=== PATIENT | female | born 1960 | race Caucasian/White ===

== ENCOUNTER → 2022-04-05 | Outpatient (REF) | payer MEDICARE, MEDICAID, SELFPAY ==
[2022-04-05 07:49] LABS: Anion Gap 5 (5-15); BUN 22 mg/dL (7-18); BUN/Creat Ratio 25.6 RATIO (10-20); Calcium,Total 9.7 mg/dL (8.5-10.1); Chloride 91 mmol/L (98-107); Creatinine, Serum 0.86 mg/dL (0.55-1.02); EST Glomerular Filtration Rate 71 mL/min (>60); Est Glom Filt Rate - Afr Amer 86 mL/min (>60); Glucose 130 mg/dL (74-106); Potassium 3.3 mmol/L (3.5-5.1); Sodium Level 135 mmol/L (136-145)
== END | disposition home or self-care (01) ==
LOC: OLS.SW 05:00
PROVIDERS: Visit Provider Internal Medicine
DX: J44.9 Chronic obstructive pulmonary disease, unspecified (principal)
CPT/HCPCS: 36415; 80048

== ENCOUNTER → 2022-04-11 | Outpatient (REF) | payer MEDICARE, MEDICAID, SELFPAY ==
[2022-04-11 09:33] LABS: Anion Gap 5 (5-15); BUN 29 mg/dL (7-18); BUN/Creat Ratio 29.2 RATIO (10-20); Calcium,Total 9.8 mg/dL (8.5-10.1); Chloride 91 mmol/L (98-107); Creatinine, Serum 0.99 mg/dL (0.55-1.02); EST Glomerular Filtration Rate 61 mL/min (>60); Est Glom Filt Rate - Afr Amer 73 mL/min (>60); Glucose 122 mg/dL (74-106); Sodium Level 136 mmol/L (136-145)
== END | disposition home or self-care (01) ==
LOC: OLS.SW 04:00
PROVIDERS: Referring Provider Internal Medicine; Visit Provider Internal Medicine
DX: J44.9 Chronic obstructive pulmonary disease, unspecified (principal); I10 Essential (primary) hypertension
CPT/HCPCS: 36415; 80048

== ENCOUNTER → 2022-05-01 | Outpatient (REF) | payer MEDICARE, MEDICAID, SELFPAY ==
[2022-05-01 08:38] LABS: Hemoglobin 10.2 g/dL (12.0-15.0); Mean Corpuscular Volume 89.9 fL (81-99); Mean Platelet Vol. 11.2 fl (6.2-12.0); Platelet Count 231 K/mm3 (150-450); RBC Distribution Width CV 13.4 % (11.6-14.6); RBC Distribution Width SD 44.1 fl (35.1-43.9); Red Blood Count 3.78 M/mm3 (4.2-5.4); White Blood Count 10.6 K/mm3 (4.4-11.0)
[2022-05-01 08:49] LABS: Anion Gap 3 (5-15); BUN 39 mg/dL (7-18); BUN/Creat Ratio 21.8 RATIO (10-20); Calcium,Total 9.8 mg/dL (8.5-10.1); Chloride 91 mmol/L (98-107); Creatinine, Serum 1.79 mg/dL (0.55-1.02); EST Glomerular Filtration Rate 31 mL/min (>60); Est Glom Filt Rate - Afr Amer 37 mL/min (>60); Glucose 121 mg/dL (74-106); Magnesium 1.7 mg/dL (1.6-2.6); Potassium 4.3 mmol/L (3.5-5.1); Sodium Level 135 mmol/L (136-145)
[2022-05-01 09:45] LABS: Hemoglobin A1c 5.8 % (3.8-5.6)
== END ==
LOC: OLS.SW 05:00
PROVIDERS: Visit Provider Internal Medicine
DX: I10 Essential (primary) hypertension (principal); Z79.899 Other long term (current) drug therapy
CPT/HCPCS: 36415; 80048; 83036; 83735; 85027

== ENCOUNTER 2022-05-03 10:08 | Inpatient (IN) | payer MEDICARE, MEDICAID, SELFPAY ==
[2022-05-03] VITALS (14 sets, daily range): BP systolic 74–133; BP diastolic 44–92; PULSE 83–92; RESP 14–26; TEMP 35.7–36.7; O2SAT 88–96; BMI 61.4
--- NOTE | 2022-05-03 10:34 | RAD_ITS ---
STUDY: X-RAY CHEST REASON FOR EXAM: Female, 61 years old. Hypoxia TECHNIQUE: Single AP portable view of the chest. COMPARISON: None. FINDINGS: EKG electrodes are seen. The patient is rotated. The lungs are clear. There is no demonstrated pleural abnormality. There is mild cardiac enlargement. Normal mediastinum and lito. Normal visualized pulmonary arteries. Normal visualized aortic arch and descending thoracic aorta. There are diffuse degenerative changes of the visualized thoracic spine. Normal visualized ribs, clavicles, and shoulders. There is no demonstrated abnormality of the visualized soft tissue structures of the upper abdomen. RAD/Chest 1 View (Portable) IMPRESSION: Lungs are clear. Mild cardiomegaly. Electronically Signed: aDvid Conner MD at 11:41 EST ,
[2022-05-03 11:06] LABS: Absolute Lymphocyte Count 2.16 X10^3/uL (0.83-4.51); Absolute Neutrophil Count 7.5 X10^3/uL (2.0-7.7); Basophil# 0.03 X10^3/uL; Basophil% 0.3 % (0-1); Eosinophil# 0.11 X10^3/uL; Hematocrit 36.4 % (37-47); Hemoglobin 10.7 g/dL (12.0-15.0); Lymphocyte # 2.16 X10^3/ul (0.83-4.51); Lymphocyte % 20.2 % (19-41); Mean Corp Hgb Conc 29.4 g/dL (32-36); Mean Corpuscular Hgb 26.5 pg (27.0-32.0); Mean Corpuscular Volume 90.1 fL (81-99); Mean Platelet Vol. 11.4 fl (6.2-12.0); Monocyte# 0.76 X10^3/uL; Monocyte% 7.1 % (0-10); NRBC Flagged by Analyzer 0 % (0-5); Neutrophil # 7.53 X10^3/uL (2.7-7.7); Neutrophil % 70.4 % (47-70); Platelet Count 262 K/mm3 (150-450); RBC Distribution Width CV 13.3 % (11.6-14.6); RBC Distribution Width SD 43.8 fl (35.1-43.9); Red Blood Count 4.04 M/mm3 (4.2-5.4); White Blood Count 10.7 K/mm3 (4.4-11.0)
[2022-05-03 11:12] LABS: Lactic Acid 1.1 mmol/L (0.4-1.9)
[2022-05-03 11:12] LABS: Mucous, Urine 0 SEEN /hpf (<or=2+); Red Blood Cells-Urine 0 SEEN /hpf (0-5)
--- NOTE | 2022-05-03 11:14 | EX.ED.DYSGE1 ---
HPI History of Present Illness Chief Complaint: General Illness Informant: patient Narrative Narrative: Patient is a 61-year-old female with multiple comorbidities including systolic heart failure, COPD, chronic hypoxic/hypercapnic respiratory failure on 3 L of oxygen, anxiety/depression, hypertension, mixed hyperlipidemia, fibromyalgia and generalized debility presenting with hypoxia. Patient is presenting from [facility]SNF. Apparently patient's oxygen was in the 80s on 3 L and they bumped her up to 4 L with no change. Patient also had a blood pressure of 90/60 at the facility. She was sent to the ER for further evaluation. Patient currently denies any complaints except for her chronic pain. She denies any change in her cough or new shortness of breath. She denies any wheezing. She states she does feel thirsty. Denies any change in her urination. Denies abdominal pain, nausea or vomiting. Upon arrival patient was 88% on 3 L and was increased to 4 L in the ER [facility] Medical History Chronic anemia Chronic pain Chronic respiratory failure with hypoxia COPD (chronic obstructive pulmonary disease) Depression GERD (gastroesophageal reflux disease) HFrEF (heart failure with reduced ejection fraction) HTN (hypertension) Hyperlipidemia Morbid obesity Obesity hypoventilation syndrome MARISOL (obstructive sleep apnea) Peptic ulcer disease Seasonal allergies TIA (transient ischemic attack) Vitamin D deficiency Home Medications acetaminophen 325 mg tablet 650 mg PO Q4H PRN Pain 05/03/22 [History Last Taken Unknown] acetaminophen 325 mg tablet 650 mg PO TID PAIN 05/03/22 [History Last Taken 05/03/22] albuterol sulfate 90 mcg/actuation aerosol inhaler 2 puff inhalation Q2H PRN Shortness Of Breath 05/03/22 [History Last Taken Unknown] amitriptyline 25 mg tablet 25 mg PO QHS DEPRESSION 05/03/22 [History Last Taken 05/02/22] atorvastatin 20 mg tablet 20 mg PO QHS CHOLESTEROL 05/03/22 [History Last Taken 05/02/22] benzonatate 100 mg capsule 100 mg PO Q8H PRN Cough 05/03/22 [History Last Taken Unknown] calcium polycarbophil 625 mg tablet (FiberCon) 625 mg PO DAILY CONSTIPATION 05/03/22 [History Last Taken 05/03/22] cyclobenzaprine 10 mg tablet 10 mg PO TID MUSCLE SPASMS 05/03/22 [History Last Taken 05/03/22] dextrose 40 % oral gel (Glucose Gel) 10 g PO Q15M PRN HYPOGLYCEMIC EPISODE 05/03/22 [History Last Taken Unknown] dicyclomine 10 mg capsule 10 mg PO DAILY PRN Diarrhea 05/03/22 [History Last Taken Unknown] ergocalciferol (vitamin D2) 1,250 mcg (50,000 unit) capsule (Vitamin D2) 1,250 mcg PO SA SUPPLEMENT 05/03/22 [History Last Taken 04/29/22] famotidine 20 mg tablet 20 mg PO BID GERD 05/03/22 [History Last Taken 05/03/22] fluticasone propionate 50 mcg/actuation nasal spray,suspension 2 spray intranasal BID NASAL CONGESTION 05/03/22 [History Last Taken 05/03/22] furosemide 40 mg tablet 40 mg PO BID FLUID 05/03/22 [History Last Taken 05/03/22] gabapentin 100 mg capsule 300 mg PO BID NERVE PAIN 05/03/22 [History Last Taken 05/03/22] guaifenesin 600 mg tablet, extended release 12 hr (Mucinex) 600 mg PO BID CONGESTION 05/03/22 [History Last Taken 05/03/22] hydroxyzine HCl 50 mg tablet 50 mg PO Q12H PRN Anxiety 05/03/22 [History Last Taken Unknown] lidocaine 4 % topical patch 1 patch topical DAILY PAIN 05/03/22 [History Last Taken 05/03/22] loperamide 2 mg tablet 2 mg PO Q6H PRN Diarrhea 05/03/22 [History Last Taken Unknown] loratadine 10 mg tablet 10 mg PO DAILY SEASONAL ALLERGIES 05/03/22 [History Last Taken 05/03/22] losartan 50 mg tablet 50 mg PO DAILY BLOOD PRESSURE 05/03/22 [History Last Taken 05/03/22] methyl salicylate 15 %-menthol 10 % topical cream (Muscle Rub) 1 applic topical BID PRN LEFT SHOULDER PAIN 05/03/22 [History Last Taken 05/03/22] montelukast 10 mg tablet 10 mg PO DAILY ALLERGIES 05/03/22 [History Last Taken 05/03/22] omeprazole 20 mg tablet,delayed release 20 mg PO DAILY GERD 05/03/22 [History Last Taken 05/03/22] ondansetron 4 mg oral soluble film 4 mg PO Q8H PRN Nausea 05/03/22 [History Last Taken Unknown] roflumilast 500 mcg tablet (Daliresp) 500 mcg PO DAILY ASTHMA 05/03/22 [History Last Taken 05/03/22] sertraline 100 mg tablet (Zoloft) 100 mg PO QHS DEPRESSION 05/03/22 [History Last Taken 05/02/22] spironolactone 50 mg tablet 50 mg PO DAILY BLOOD PRESSURE 05/03/22 [History Last Taken 05/03/22] sucralfate 100 mg/mL oral suspension (Carafate) 10 ml PO TID ULCER 05/03/22 [History Last Taken 05/03/22] tiotropium bromide 2.5 mcg/actuation mist for inhalation (Spiriva Respimat) 2 puff inhalation QHS ASTHMA 05/03/22 [History Last Taken 05/02/22] tramadol 50 mg tablet 50 mg PO Q8H PRN MUSCLE WEAKNESS 05/03/22 [History Last Taken Unknown] Allergy/AdvReac Type Severity Reaction Status Date / Time aspirin Allergy Other Verified 05/03/22 10:11 black pepper [pepper] Allergy Other Verified 05/03/22 10:11 coconut Allergy Other Verified 05/03/22 10:11 codeine Allergy Other Verified 05/03/22 10:11 ibuprofen Allergy Other Verified 05/03/22 10:11 Influenza Virus Vaccines Allergy Other Verified 05/03/22 10:11 rice Allergy Other Verified 05/03/22 10:11 tetanus and diphtheria Allergy Other Verified 05/03/22 10:11 toxoids Tetanus Vaccines and Toxoid Allergy Other Verified 05/03/22 10:11 Family History (Updated 05/03/22 @ 13:[address] Marina Armas DO) Other CAD (coronary artery disease) COPD (chronic obstructive pulmonary disease) Hypertension Social History (Updated 05/03/22 @ 13:[address] Marina Armas DO) housing: half-way Smoking Status: Former smoker alcohol intake: never substance use type: does not use ROS ROS ED Constitutional Constitutional ED: Denies chills or fever(s) Eyes Eyes: Denies change in vision ENT ENT ED: Denies rhinorrhea or sore throat Cardiovascular Cardiovascular: Denies chest pain or palpitations Respiratory/Chest Respiratory/Chest: Reports cough; Denies dyspnea Gastrointestinal Gastrointestinal: Denies abdominal pain, nausea or vomiting Genitourinary Genitourinary ED: Denies dysuria or urinary frequency Musculoskeletal Musculoskeletal: Reports arthralgias and myalgias Integumentary Denies rash Neurologic Neurologic: Reports weakness; Denies headache(s) Psychiatric Psychiatric: Denies anxiety Hematologic/Lymphatic Hematologic/Lymphatic: Denies easy bleeding or easy bruising EXAM Physical Exam Const Vital Signs: 05/03/22 10:11 05/03/22 10:26 05/03/22 11:42 Temperature 96.3 F L Temperature Source Temporal Pulse Rate 90 92 Respiratory Rate 16 16 Blood Pressure 84/60 L Blood Pressure Mean 68 Pulse Ox 88 93 Oxygen Delivery Method Nasal Cannula Nasal Cannula Nasal Cannula Oxygen Flow Rate (L/min) 3 4 4 05/03/22 11:43 05/03/22 12:30 05/03/22 12:34 Temperature 96.2 F L Temperature Source Temporal Pulse Rate 87 83 83 Respiratory Rate 17 16 Blood Pressure 82/53 L 81/44 L 133/92 H Blood Pressure Mean 62 56 105 Pulse Ox 94 94 Oxygen Delivery Method Nasal Cannula Nasal Cannula Oxygen Flow Rate (L/min) 4 4 Positive well nourished and well developed General Appearance ED: well developed HEENT Reports dry mucous membranes Mouth ED: Yes dry mucous membranes Mouth: dry mucous membranes Eyes PERRL and EOMs intact bilaterally Neck supple and no JVD Chest Wall inspection of chest normal and palpation of chest normal Resp normal respiratory effort Effort and Inspection: Negative for retractions Auscultation: diminished lung sounds; Negative for wheezes Cardio regular rate, regular rhythm and no murmurs GI normal to inspection, nondistended, normoactive bowel sounds Extremity normal to inspection General Extremety ED: Negative for edema General Extremity: Negative for edema Neuro Neuro Narrative: Oriented to self and place. Intermittent twitching episodes. Patient states she gets these from time to time Sensorium / Orientation: alert Motor Exam: general weakness Psych mental status grossly normal Skin no rashes or lesions noted and no wounds MDM MDM MDM Narrative Medical decision making narrative: Patient is evaluated for increased O2 requirements at nursing facility. There is also report of some diarrhea. Patient's vital signs remarkable for mild hypoxia requiring 4 L of oxygen but more significant is her hypotension. In addition patient had lab work 2 days ago which showed an elevation of her creatinine from her baseline. Patient states she is thirsty and she does have dry mucosal membranes. She does not clinically appear fluid overloaded however given that she does have a history of heart failure will give gentle fluid resuscitation. Patient initially is given a 500 cc bolus of fluids with no significant improvement of her blood pressure. She is given additional 500 bolus and then started on maintenance fluids. Patient's blood pressure is improved. Her CBC shows a chronic and stable anemia. Her lactate is normal at 1.1 and I do not suspect any endorgan damage at this time. Her CMP is remarkable for an elevated creatinine of 2.04 as well as an elevated bicarb of 40 with a low anion gap. I suspect the elevated bicarb is consistent with chronic hypercapnic respiratory failure. Patient's urinalysis is also consistent with UTI with positive nitrates, 10 to 25 white blood cells and 2+ bacteria. Urine culture sent and she started on IV antibiotics. Given that her blood pressure has improved with fluid resuscitation and she is fluid responsive with no signs of endorgan damage I do not think she requires ICU. She will be admitted to the hospital for correction of her ZONIA and gentle hydration. Patient agreeable with plan of care. Lab Data Attestation: I reviewed the patient's lab results. Labs: Laboratory Results - last 24 hr 05/03/22 05/03/22 05/03/22 10:30 10:40 10:40 WBC 10.7 RBC 4.04 L Hgb 10.7 L Hct 36.4 L MCV 90.1 MCH 26.5 L MCHC 29.4 L RDW Std Deviation 43.8 RDW Coeff of David 13.3 Plt Count 262 MPV 11.4 Immature Gran % (Auto) 1.000 H Neut % (Auto) 70.4 H Lymph % (Auto) 20.2 [place] % (Auto) 7.1 Eos % (Auto) 1.0 Baso % (Auto) 0.3 Absolute Neuts (auto) 7.5 Absolute Lymphs (auto) 2.16 Nucleated RBC % 0 PT 12.7 INR 1.0 APTT 28.3 Sodium Potassium Chloride Carbon Dioxide Anion Gap BUN Creatinine Estim Creat Clear Calc Est GFR (MDRD) Af Amer Est GFR (MDRD) Non-Af BUN/Creatinine Ratio Glucose Lactic Acid 1.1 Calcium Total Bilirubin AST ALT Alkaline Phosphatase B-Natriuretic Peptide Total Protein Albumin Globulin Albumin/Globulin Ratio Urine Color Urine Clarity Urine pH Ur Specific [place] Urine Protein Urine Glucose (UA) Urine Ketones Urine Occult Blood Urine Nitrite Urine Bilirubin Urine Urobilinogen Ur Leukocyte Esterase Urine RBC Urine WBC Ur Squamous Epith Cells Urine Bacteria Urine Mucus 05/03/22 05/03/22 05/03/22 10:40 10:40 11:10 WBC RBC Hgb Hct MCV MCH MCHC RDW Std Deviation RDW Coeff of David Plt Count MPV Immature Gran % (Auto) Neut % (Auto) Lymph % (Auto) [place] % (Auto) Eos % (Auto) Baso % (Auto) Absolute Neuts (auto) Absolute Lymphs (auto) Nucleated RBC % PT INR APTT Sodium 137 Potassium 5.2 H Chloride 93 L Carbon Dioxide 40.0 H Anion Gap 4 L BUN 58 H Creatinine 2.04 H Estim Creat Clear Calc 28.52 Est GFR (MDRD) Af Amer 32 L Est GFR (MDRD) Non-Af 26 L BUN/Creatinine Ratio 28.4 H Glucose 126 H Lactic Acid Calcium 10.1 Total Bilirubin 0.40 AST 7 L ALT 10 L Alkaline Phosphatase 89 B-Natriuretic Peptide 5.1 Total Protein 7.7 Albumin 3.2 Globulin 4.5 H Albumin/Globulin Ratio 0.7 L Urine Color Yellow Urine Clarity Sl. Cloudy Urine pH 6.5 Ur Specific [place] 1.020 Urine Protein 15 H Urine Glucose (UA) Normal Urine Ketones Negative Urine Occult Blood Negative Urine Nitrite Positive H Urine Bilirubin Negative Urine Urobilinogen Normal Ur Leukocyte Esterase 100 H Urine RBC 0 SEEN Urine WBC 10-25 SEEN Ur Squamous Epith Cells 0-5 SEEN Urine Bacteria 2+ Urine Mucus 0 SEEN Radiography Diagnostic Testing: Clinical Impression(s) from Imaging Studies Chest X-Ray 05/03/22 10:34 IMPRESSION: Lungs are clear. Mild cardiomegaly. Electronically Signed: David Conner MD at 11:41 EST , Rhythm Strip Rhythm Strip: Sinus Rhythm Rate: 93 Ectopy: None EKG Initial EKG: Attestation: I personally reviewed and interpreted this EKG as follows: Interpretation: Sinus Rhythm Comments: Normal sinus rhythm at a rate of 93 bpm Normal axis Right bundle branch block Normal ST segments Discharge Plan Dx/Rx/DC Orders Clinical Impression: ZONIA (acute kidney injury), Dehydration, UTI (urinary tract infection), Acute and chronic respiratory failure with hypoxia Disposition Disposition: Acute Care Hospital [facility] Discharge Date/Time: 05/03/22 13:44
[2022-05-03 11:18] LABS: Partial Thromboplast Time 28.3 Seconds (24.1-36.2); Prothrombin Time (Protime)PT. 12.7 SECONDS (11.7-14.9)
[2022-05-03 11:19] LABS: Color, Urine Yellow (Yellow); Glucose, Dipstick Normal (Normal); Ketone-Dipstick Negative (Negative); Leukocyte Esterase-Dipstick 100 /ul (Negative); Nitrite-Dipstick Positive (Negative); Occult Blood-Urine Negative /ul (Negative); Protein-Dipstick 15 mg/dl (Negative); Urine Bilirubin Dipstick Negative (Negative); Urine Clarity Sl. Cloudy (Clear); Urine Urobilinogen Normal (Normal); Urine pH 6.5 (5.0 - 8.0)
[2022-05-03 11:23] LABS: BNP,B-Type NATRIURETIC PEPTIDE 5.1 pg/mL (0-100)
[2022-05-03 11:25] LABS: ALB/GLOB Ratio 0.7 RATIO (0.9-2.4); AST(SGOT) 7 U/L (15-37); Alanine Aminotransfer ALT/SGPT 10 U/L (13-56); Albumin, Serum 3.2 g/dL (3.2-5.0); Alkaline Phosphatase 89 U/L (45-117); Anion Gap 4 (5-15); BUN 58 mg/dL (7-18); BUN/Creat Ratio 28.4 RATIO (10-20); Calcium,Total 10.1 mg/dL (8.5-10.1); Chloride 93 mmol/L (98-107); Creatinine, Serum 2.04 mg/dL (0.55-1.02); EST Glomerular Filtration Rate 26 mL/min (>60); Est Glom Filt Rate - Afr Amer 32 mL/min (>60); Estimated Creatinine Clearance 28.52 ml/min; Globulin 4.5 g/dL (2.2-4.2); Glucose 126 mg/dL (74-106); Potassium 5.2 mmol/L (3.5-5.1); Protein, Total 7.7 g/dL (6.4-8.2); Sodium Level 137 mmol/L (136-145)
[2022-05-03 11:33] LABS: Bacteria 2+ /hpf (None Seen); Squamous Epithelial Cells - UA 0-5 SEEN /hpf (5-10); White Blood Cells 10-25 SEEN /hpf (0-5)
[2022-05-03] MEDS: 0.9% Normal Saline 1,000 ML 200 ML IV (12:34)
[2022-05-03] MEDS: Ceftriaxone 1 GM/50 ML BAG IV (12:34)
--- NOTE | 2022-05-03 12:51 | ED.RN ---
called rose Wolfe for pt update. appreciative.
--- NOTE | 2022-05-03 13:06 | HP.PCM.HOS_ITS ---
HPI - General General Date of Admission: 05/03/22 Date of Service: 05/03/22 Chief Complaint: Worsening hypoxia/hypotension HPI Narrative HE TRAYLOR, is a 61 F who presented to the emergency department at [facility] on 05/03/2022 for worsening hypoxemia from [facility].. The patient evidently had an extended hospital course at a hospital in [place], [place] as she lives in [facility] but was discharged to [facility] as her daughter lives in [facility]. She has been there for a few weeks now and evidently has been feeling poorly for about 2 to 3 days now. She did feel that she probably was getting urinary tract infection after I talk to her. She has had dysuria some intermittent nausea with emesis yesterday and intermittent diarrhea that is more voluminous than her baseline. She states she has chronic right-sided weakness in her arm related to a fall that she had a year ago and has ongoing pain in her shoulder. She states they feel that she had a shoulder injury however she is not a surgical candidate. She also has right lower extremity weakness from the fall as well as she had multiple fractures. She indicates that these issues are chronic. She has some hypoxemia at the facility. Patient states she is on 3 to 4 L of oxygen at baseline. At [facility] she was 88% on 3 L and had to titrate her up to 4 L and even further up initially as her oxygenation did not improve with a 4 L bump. Her blood pressure was also noted to be low at 90/60 at the facility. She was sent to emergency department for further evaluation. She has some chronic pain which has been problematic for her. She denies any new cough or shortness of breath. She has no wheezing. She states she does not feel thirsty and has no abdominal pain. Patient does have an extremely complex medical history. Vital signs at presentation demonstrated a temperature of 96.3, blood pressure 84/60, respiratory rate 16, oxygen saturation was 88% on 3 L nasal cannula with improvement to 93% on 4 L. She was given IV fluids and her blood pressure was responsive and at the time of my evaluation she was 133/92. Her CBC shows a chronic anemia with no leukocytosis or thrombocytopenia. She has a very mild left shift with a 70.4% neutrophilia. Coags were normal. Her chemistry panel was markedly abnormal with an elevated potassium at 5.2, BUN of 58, serum creatinine of 2.04. Liver enzymes are normal. Lactic acid was 1.1. She is a chronically elevated serum bicarb in the upper 30-40 range. Her baseline serum creatinine appears to run anywhere from 0.8-1. Chest x-ray shows no acute pulmonary pathology. Her UA is consistent with infection demonstrating nitrites, leuk esterase, white cells, and 2+ bacteria. Her EKG was unremarkable other than low voltage which is consistent with her body habitus. The emergency department she was given 2 L IV bolus and started on ceftriaxone. Her oxygen was increased to 4 L. [facility] Medical History Chronic anemia Chronic pain Chronic respiratory failure with hypoxia COPD (chronic obstructive pulmonary disease) Depression GERD (gastroesophageal reflux disease) HFrEF (heart failure with reduced ejection fraction) HTN (hypertension) Hyperlipidemia Morbid obesity Obesity hypoventilation syndrome MARISOL (obstructive sleep apnea) Peptic ulcer disease Seasonal allergies TIA (transient ischemic attack) Vitamin D deficiency Home Medications acetaminophen 325 mg tablet 650 mg PO Q4H PRN Pain 05/03/22 [History Last Taken Unknown] acetaminophen 325 mg tablet 650 mg PO TID PAIN 05/03/22 [History Last Taken 05/03/22] albuterol sulfate 90 mcg/actuation aerosol inhaler 2 puff inhalation Q2H PRN Shortness Of Breath 05/03/22 [History Last Taken Unknown] amitriptyline 25 mg tablet 25 mg PO QHS DEPRESSION 05/03/22 [History Last Taken 05/02/22] atorvastatin 20 mg tablet 20 mg PO QHS CHOLESTEROL 05/03/22 [History Last Taken 05/02/22] benzonatate 100 mg capsule 100 mg PO Q8H PRN Cough 05/03/22 [History Last Taken Unknown] calcium polycarbophil 625 mg tablet (FiberCon) 625 mg PO DAILY CONSTIPATION 05/03/22 [History Last Taken 05/03/22] cyclobenzaprine 10 mg tablet 10 mg PO TID MUSCLE SPASMS 05/03/22 [History Last Taken 05/03/22] dextrose 40 % oral gel (Glucose Gel) 10 g PO Q15M PRN HYPOGLYCEMIC EPISODE 05/03/22 [History Last Taken Unknown] dicyclomine 10 mg capsule 10 mg PO DAILY PRN Diarrhea 05/03/22 [History Last Taken Unknown] ergocalciferol (vitamin D2) 1,250 mcg (50,000 unit) capsule (Vitamin D2) 1,250 mcg PO SA SUPPLEMENT 05/03/22 [History Last Taken 04/29/22] famotidine 20 mg tablet 20 mg PO BID GERD 05/03/22 [History Last Taken 05/03/22] fluticasone propionate 50 mcg/actuation nasal spray,suspension 2 spray intranasal BID NASAL CONGESTION 05/03/22 [History Last Taken 05/03/22] furosemide 40 mg tablet 40 mg PO BID FLUID 05/03/22 [History Last Taken 05/03/22] gabapentin 100 mg capsule 300 mg PO BID NERVE PAIN 05/03/22 [History Last Taken 05/03/22] guaifenesin 600 mg tablet, extended release 12 hr (Mucinex) 600 mg PO BID CONGESTION 05/03/22 [History Last Taken 05/03/22] hydroxyzine HCl 50 mg tablet 50 mg PO Q12H PRN Anxiety 05/03/22 [History Last Taken Unknown] lidocaine 4 % topical patch 1 patch topical DAILY PAIN 05/03/22 [History Last Taken 05/03/22] loperamide 2 mg tablet 2 mg PO Q6H PRN Diarrhea 05/03/22 [History Last Taken Unknown] loratadine 10 mg tablet 10 mg PO DAILY SEASONAL ALLERGIES 05/03/22 [History Last Taken 05/03/22] losartan 50 mg tablet 50 mg PO DAILY BLOOD PRESSURE 05/03/22 [History Last Taken 05/03/22] methyl salicylate 15 %-menthol 10 % topical cream (Muscle Rub) 1 applic topical BID PRN LEFT SHOULDER PAIN 05/03/22 [History Last Taken 05/03/22] montelukast 10 mg tablet 10 mg PO DAILY ALLERGIES 05/03/22 [History Last Taken 0 05/03/22] omeprazole 20 mg tablet,delayed release 20 mg PO DAILY GERD 05/03/22 [History Last Taken 05/03/22] ondansetron 4 mg oral soluble film 4 mg PO Q8H PRN Nausea 05/03/22 [History Last Taken Unknown] roflumilast 500 mcg tablet (Daliresp) 500 mcg PO DAILY ASTHMA 05/03/22 [History Last Taken 05/03/22] sertraline 100 mg tablet (Zoloft) 100 mg PO QHS DEPRESSION 05/03/22 [History Last Taken 05/02/22] spironolactone 50 mg tablet 50 mg PO DAILY BLOOD PRESSURE 05/03/22 [History Last Taken 05/03/22] sucralfate 100 mg/mL oral suspension (Carafate) 10 ml PO TID ULCER 05/03/22 [History Last Taken 05/03/22] tiotropium bromide 2.5 mcg/actuation mist for inhalation (Spiriva Respimat) 2 puff inhalation QHS ASTHMA 05/03/22 [History Last Taken 05/02/22] tramadol 50 mg tablet 50 mg PO Q8H PRN MUSCLE WEAKNESS 05/03/22 [History Last Taken Unknown] Allergy/AdvReac Type Severity Reaction Status Date / Time aspirin Allergy Other Verified 05/03/22 10:11 black pepper [pepper] Allergy Other Verified 05/03/22 10:11 coconut Allergy Other Verified 05/03/22 10:11 codeine Allergy Other Verified 05/03/22 10:11 ibuprofen Allergy Other Verified 05/03/22 10:11 Influenza Virus Vaccines Allergy Other Verified 05/03/22 10:11 rice Allergy Other Verified 05/03/22 10:11 tetanus and diphtheria Allergy Other Verified 05/03/22 10:11 toxoids Tetanus Vaccines and Toxoid Allergy Other Verified 05/03/22 10:11 Family History Other CAD (coronary artery disease) COPD (chronic obstructive pulmonary disease) Hypertension Surgical History unable to obtain unable to obtain (Patient uncertain) Social History housing: half-way Smoking Status: Former smoker alcohol intake: never substance use type: does not use ROS Constitutional Constitutional: Reports fatigue, malaise and weakness; Denies anorexia, change in weight, chills, fever(s), night sweats or other Eyes Eyes: Denies blurry vision, change in eye color, change in vision, discharge from eye(s), double vision, erythema, eye pain, loss of vision or other ENT HEENT: Denies abnormal hearing, dysphagia, ear pain, epistaxis, headache(s), hearing loss, nasal congestion, nasal discharge, post nasal drip, sinus pressure, sore throat or other Cardiovascular Cardiovascular: Denies chest pain, claudication, dyspnea on exertion, edema, lightheadedness, orthopnea, palpitations, paroxysmal nocturnal dyspnea, rapid heart rate, syncope or other Respiratory/Chest Respiratory/Chest: Denies cough, dyspnea, excessive phlegm production, hemopt ysis, productive cough, shortness of breath at rest, shortness of breath with exertion, wheezing or other Gastrointestinal Gastrointestinal: Reports diarrhea, nausea and vomiting; Denies abdominal pain, coffee ground emesis, constipation, dyspepsia, hematemesis, hematochezia, loose stools, melena or other Genitourinary Genitourinary: Reports burning urination, dysuria, urinary frequency and urinary incontinence; Denies difficulty urinating, hematuria, nocturia, urinary hesitancy, urinary urgency or other Musculoskeletal Musculoskeletal: Reports arthralgias, joint pain, neck pain and other Details: Right shoulder pain, right leg pain-chronic Neurologic Neurologic: Reports numbness, paresthesias, tingling and other Details: Right upper extremity weakness from previous orthopedic injury Psychiatric Psychiatric: Reports anxiety and depression; Denies homicidal ideation, suicidal ideation or other Endocrine Endocrinology: Denies change in body appearance, cold intolerance, excessive sweating, heat intolerance, polydipsia, polyuria or other Hematologic/Lymphatic Hematologic/Lymphatic: Denies anemia, easy bleeding, easy bruising, lymphadenopathy or other Allergic/Immunologic Allergic/Immunologic: Denies rhinitis, hives, eczemia, asthma or other Vital Signs Vital Signs Vital Signs: 05/03/22 10:11 05/03/22 10:26 05/03/22 11:42 Temperature 96.3 F L Temperature Source Temporal Pulse Rate 90 92 Respiratory Rate 16 16 Blood Pressure 84/60 L Blood Pressure Mean 68 Pulse Ox 88 93 Oxygen Delivery Method Nasal Cannula Nasal Cannula Nasal Cannula Oxygen Flow Rate (L/min) 3 4 4 05/03/22 11:43 05/03/22 12:30 05/03/22 12:34 Temperature 96.2 F L Temperature Source Temporal Pulse Rate 87 83 83 Respiratory Rate 17 16 Blood Pressure 82/53 L 81/44 L 133/92 H Blood Pressure Mean 62 56 105 Pulse Ox 94 94 Oxygen Delivery Method Nasal Cannula Nasal Cannula Oxygen Flow Rate (L/min) 4 4 05/03/22 13:01 Temperature 96.4 F L Temperature Source Temporal Pulse Rate 83 Respiratory Rate 16 Blood Pressure 133/92 H Blood Pressure Mean 105 Pulse Ox 94 Oxygen Delivery Method Nasal Cannula Oxygen Flow Rate (L/min) 4 Weight Weight: 178.1 kg Body Mass Index (BMI) 61.4 Physical Exam Const alert and no apparent distress Constitutional Narrative: Super morbidly obese white female lying in bed, mentating well, appears comfortable nontoxic HEENT normocephalic, head/scalp atraumatic and hearing grossly normal bilaterally HEENT Narrative: Edentulous, Mallampati 4, no thrush, mucous membranes are dry Eyes PERRL, EOMs intact bilaterally and conjunctivae normal Eyes Narrative: No scleral icterus Neck no lymphadenopathy and supple Neck Narrative: Neck is extremely short and thick, trachea midline, yeast noted in folds around neck Resp normal respiratory effort, no retractions, no use of accessory muscles and clear to auscultation bilaterally Resp Narrative: Extremely distant, markedly diminished diffusely, no tachypnea or conversational dyspnea Auscultation: Negative for crackles, rhonchi or wheezes Cardio regular rate, regular rhythm, S1 normal heart sound, S2 normal heart sound, no murmurs, no rub, no gallops and no clicks GI normal to inspection, nondistended, normoactive bowel sounds, soft to palpation and non-tender GI Narrative: Extremely protuberant abdomen, intertrigo and ascites noted Extremity no clubbing, cyanosis or edema Skin No no rashes or lesions noted, no wounds, skin turgor normal, no jaundice, no petechiae and no mottling Skin Narrative: No wound is noted how of her exam is limited due to body habitus and ability to move, patient with multiple areas of cutaneous candidiasis Neuro oriented x3 and CN's II-XII intact bilaterally Neuro Narrative: Increased movement right upper extremity due to pain in the shoulder and right lower extremity due to pain in the leg, reflexes are 2+ upper and lower extremities Speech: speech normal Psych affect normal Psych Narrative: Appropriately interactive Results Lab / Micro Data Attestation: I reviewed the patient's lab results. Result Diagrams: 05/03/22 10:40 05/03/22 10:40 Labs: Laboratory Results - last 24 hr 05/03/22 10:30: Lactic Acid 1.1 05/03/22 10:40: WBC 10.7, RBC 4.04 L, Hgb 10.7 L, Hct 36.4 L, MCV 90.1, MCH 26.5 L, MCHC 29.4 L, RDW Std Deviation 43.8, RDW Coeff of David 13.3, Plt Count 262, MPV 11.4, Immature Gran % (Auto) 1.000 H, Neut % (Auto) 70.4 H, Lymph % (Auto) 20.2, Hendricks % (Auto) 7.1, Eos % (Auto) 1.0, Baso % (Auto) 0.3, Absolute Neuts (auto) 7.5, Absolute Lymphs (auto) 2.16, Nucleated RBC % 0 05/03/22 10:40: PT 12.7, INR 1.0, APTT 28.3 05/03/22 10:40: Sodium 137, Potassium 5.2 H, Chloride 93 L, Carbon Dioxide 40.0 H, Anion Gap 4 L, BUN 58 H, Creatinine 2.04 H, Estim Creat Clear Calc 28.52, Est GFR (MDRD) Af Amer 32 L, Est GFR (MDRD) Non-Af 26 L, BUN/Creatinine Ratio 28.4 H , Glucose 126 H, Calcium 10.1, Total Bilirubin 0.40, AST 7 L, ALT 10 L, Alkaline Phosphatase 89, Total Protein 7.7, Albumin 3.2, Globulin 4.5 H, Albumin/Globulin Ratio 0.7 L 05/03/22 10:40: B-Natriuretic Peptide 5.1 05/03/22 11:10: Urine Color Yellow, Urine Clarity Sl. Cloudy, Urine pH 6.5, Ur Specific [place] 1.020, Urine Protein 15 H, Urine Glucose (UA) Normal, Urine Ketones Negative, Urine Occult Blood Negative, Urine Nitrite Positive H, Urine Bilirubin Negative, Urine Urobilinogen Normal, Ur Leukocyte Esterase 100 H, Urine RBC 0 SEEN, Urine WBC 10-25 SEEN, Ur Squamous Epith Cells 0-5 SEEN, Urine Bacteria 2+, Urine Mucus 0 SEEN Micro: Microbiology 05/03/22 11:10 Nasal Secretion SARS-CoV-2 & FLU Antigen (Rapid) - Final Rhythm Strip Rhythm Strip: Sinus Rhythm Rate: 93 Ectopy: None Radiology Impression Chest X-Ray 05/03/22 10:34 IMPRESSION: Lungs are clear. Mild cardiomegaly. Electronically Signed: David Conner MD at 11:41 EST , Assessment & Plan Assessment/Plan (1) Hypoxia: (2) ZONIA (acute kidney injury): (3) Hyperkalemia: (4) Dehydration: (5) Diarrhea: (6) UTI (urinary tract infection): PLAN: Plan Acute hypoxia on chronic hypoxic and hypercapnic respiratory failure -Patient 3 L of nasal cannula at baseline however upon my discussion with her she states 4 -We will need to clearly identify supplemental oxygen requirements at baseline -Sats are currently stable on 4 L and patient not having any subjective shortness of breath -Continue aerosols -Continue home inhalers -No current need for steroids Acute urinary tract infection -UA is consistent with infection -We will utilize Zosyn since patient is in a facility at baseline and has just been hospitalized not that long ago -This would place her at high risk for resistant organisms -Urine culture pending ZONIA due to severe dehydration -Serum creatinine is markedly elevated beyond baseline of 0.8-1 -Current serum creatinine is 2.04 -Patient with some resultant hypotension related to her volume depletion but seems to resolving with fluid resuscitation -Hold home famotidine -Hold home Lasix -Hold home losartan -Hold home Aldactone -Repeat BMP in a.m. if no improvement in renal function will consider further work-up at that time Hypotension -Seems to be resolving with IV fluid replacement -Lactic acid is normal at 1.1 indicating adequate perfusion -Suspect peripheral blood pressures are going to be difficult to obtain secondary to body habitus and central pressures likely higher than peripheral pressures are measuring Acute on chronic diarrhea -Patient with issues of chronic diarrhea -Check C. difficile -Check enteric panel -Hold home antidiarrheal medications until we can assure there is no infectious etiology causing this at this time Hyperkalemia -Mild at 5.2 -Hold home Aldactone and losartan -Likely related to acute kidney injury -Repeat lab in a.m. -No EKG changes related to this GERD/peptic ulcer disease -Continue home Carafate -Continue home PPI -Hold famotidine with renal disease and restart once kidney function improves Hypertension -Hold home Aldactone -Hold home losartan -Hold home Lasix COPD/MARISOL (suspected)/OHS -Continue chronic supplemental oxygen -Continue nebulizers -Hold home Daliresp -Continue home Spiriva -Continue Mucinex HFrEF -This is documented in the history however I have no subjective proof of this as we have no echo in our system and patient has not ever been here -Aldactone and losartan on hold -Patient is not on a beta-rome which does somewhat make me question the validity of this diagnosis -Lasix on hold -Monitor clinically Chronic pain related to falls and debility -Continue home gabapentin dose should be okay with renal dysfunction -Continue as needed Flexeril -Continue home amitriptyline -Continue home Ultram -Continue home lidocaine patch Depression/anxiety -Continue home Zoloft Debility -PT/OT consultation -I am unclear how much function she has a baseline Super morbid obesity -BMI 61.5 -Recommend weight loss -Complicates treatment, prognosis, outcomes CODE STATUS -Full code as per discussion on admission Charges/Coding Visit Charges Inpatient E&M: 66900 Init Hosp L3
[2022-05-03] MEDS: 0.9% Normal Saline 1,000 ML 100 ML IV (15:16)
[2022-05-03] MEDS: Sucralfate 1 GM Tablet PO (15:26)
[2022-05-03] MEDS: cycloBENZAPRine HCl 10 MG Tablet PO ×2 (15:26→22:55)
[2022-05-03] MEDS: Ipratropium/Albuterol Sulfate 3 ML AMPUL.NEB INHALATION (15:43)
[2022-05-03] MEDS: 0.9% Normal Saline 1,000 ML 999 ML IV (17:12)
[2022-05-03] MEDS: Menthol/Lanolin/Calamine/Znox 113 GM Tube 1 APPLIC TOPICAL (22:36)
[2022-05-03] MEDS: Nystatin Powder 15gm Bottle 1 APPLIC TOPICAL (22:37)
[2022-05-03] MEDS: Amitriptyline 25 MG Tablet PO (22:55)
[2022-05-03] MEDS: guaiFENesin 600 MG Tablet PO (22:56)
[2022-05-03] MEDS: Sertraline 100 MG Tablet PO (22:56)
[2022-05-03] MEDS: Fluticasone 0.05% 1 SPRAY NASAL.SRY 2 SPRAY NASAL (22:56)
[2022-05-03] MEDS: Atorvastatin Calcium 20 MG Tablet PO (22:56)
[2022-05-03] MEDS: Gabapentin 300 MG Capsule PO (22:59)
[2022-05-03] MEDS: Heparin Injection (Vial) 5,000 UNIT/ML VIAL 5000 UNIT SC (23:00)
[2022-05-04] VITALS (12 sets, daily range): BP systolic 101–120; BP diastolic 52–63; PULSE 86–96; RESP 18–20; TEMP 36.2–36.9; O2SAT 93–98
[2022-05-04] MEDS: 0.9% Normal Saline 1,000 ML 100 ML IV ×2 (05:18→22:51)
[2022-05-04] MEDS: Nystatin Powder 15gm Bottle 1 APPLIC TOPICAL ×3 (05:20→22:58)
[2022-05-04] MEDS: 0.9% Saline Lock 10 ML Syringe IV (05:21)
[2022-05-04] MEDS: Heparin Injection (Vial) 5,000 UNIT/ML VIAL 5000 UNIT SC ×2 (05:25→14:55)
[2022-05-04] MEDS: cycloBENZAPRine HCl 10 MG Tablet PO ×3 (05:26→22:56)
[2022-05-04] MEDS: Sucralfate 1 GM Tablet PO ×3 (05:26→16:59)
[2022-05-04 06:55] LABS: Absolute Lymphocyte Count 1.48 X10^3/uL (0.83-4.51); Absolute Neutrophil Count 6.8 X10^3/uL (2.0-7.7); Basophil# 0.02 X10^3/uL; Basophil% 0.2 % (0-1); Eosinophil# 0.14 X10^3/uL; Eosinophils% 1.5 % (0-5); Hematocrit 32.1 % (37-47); Hemoglobin 9.5 g/dL (12.0-15.0); Lymphocyte # 1.48 X10^3/ul (0.83-4.51); Lymphocyte % 16.2 % (19-41); Mean Corp Hgb Conc 29.6 g/dL (32-36); Mean Corpuscular Hgb 26.6 pg (27.0-32.0); Mean Corpuscular Volume 89.9 fL (81-99); Monocyte# 0.59 X10^3/uL; Monocyte% 6.5 % (0-10); NRBC Flagged by Analyzer 0 % (0-5); Neutrophil # 6.83 X10^3/uL (2.7-7.7); Neutrophil % 74.8 % (47-70); Platelet Count 228 K/mm3 (150-450); RBC Distribution Width CV 13.5 % (11.6-14.6); RBC Distribution Width SD 44.3 fl (35.1-43.9); Red Blood Count 3.57 M/mm3 (4.2-5.4); White Blood Count 9.1 K/mm3 (4.4-11.0)
[2022-05-04] MEDS: Ipratropium/Albuterol Sulfate 3 ML AMPUL.NEB INHALATION ×2 (07:09→19:52)
[2022-05-04 07:41] LABS: ALB/GLOB Ratio 0.6 RATIO (0.9-2.4); AST(SGOT) 13 U/L (15-37); Alanine Aminotransfer ALT/SGPT 11 U/L (13-56); Albumin, Serum 2.7 g/dL (3.2-5.0); Alkaline Phosphatase 78 U/L (45-117); Anion Gap 4 (5-15); BUN 42 mg/dL (7-18); BUN/Creat Ratio 38.2 RATIO (10-20); Calcium,Total 9.5 mg/dL (8.5-10.1); Chloride 99 mmol/L (98-107); EST Glomerular Filtration Rate 54 mL/min (>60); Est Glom Filt Rate - Afr Amer 65 mL/min (>60); Estimated Creatinine Clearance 52.89 ml/min; Globulin 4.2 g/dL (2.2-4.2); Glucose 125 mg/dL (74-106); Magnesium 1.7 mg/dL (1.6-2.6); Phosphorus 3.3 mg/dL (2.5-4.9); Potassium 4.9 mmol/L (3.5-5.1); Protein, Total 6.9 g/dL (6.4-8.2); Sodium Level 138 mmol/L (136-145); Thyroid Stim Hormone (TSH) 0.35 uIU/mL (0.358-3.74)
[2022-05-04] MEDS: Menthol/Lanolin/Calamine/Znox 113 GM Tube 1 APPLIC TOPICAL ×2 (10:02→22:58)
[2022-05-04] MEDS: Montelukast 10 MG Tablet PO (10:03)
[2022-05-04] MEDS: Pantoprazole Sodium 20 MG Tablet PO (10:03)
[2022-05-04] MEDS: guaiFENesin 600 MG Tablet PO ×2 (10:03→22:56)
[2022-05-04] MEDS: Loratadine 10 MG Tablet PO (10:04)
[2022-05-04] MEDS: Lidocaine 5% Patch 1 PATCH TOPICAL (10:04)
[2022-05-04] MEDS: Gabapentin 300 MG Capsule PO ×2 (10:09→22:56)
[2022-05-04] MEDS: Acetaminophen 325 MG Tablet 650 MG PO (10:23)
--- NOTE | 2022-05-04 11:58 | CASEMGMT ---
Social Work SW met with pt and introduced self and role of SW. Pt states she has been at [facility] for a few weeks and plans to return there upon discharge. Message to Yasmin at [facility] who confirms pt is a bed hold and can return when medically ready. Updated clinicals sent to [facility] via [employer]. Plan: [facility], when medically ready AMOS Servin
--- NOTE | 2022-05-04 15:47 | PCM.PN.HOSP ---
Subjective Subjective Patient states she feels like shit today. I asked her if she felt better yesterday and she said she felt much better than yesterday and states she always feels like shit. She states she is close to back to her baseline. Her dysuria has improved. She does confirm she wears 4 L of oxygen at baseline. It sounds like [employer] only had her on 3 L. Objective Data Objective Data Vital Signs: Vital Signs Temp Pulse Resp BP Pulse Ox O2 Del Method O2 Flow Rate 97.9 F 86 20 H 110/63 96 Nasal Cannula 4 05/04/22 12:55 05/04/22 12:55 05/04/22 12:55 05/04/22 12:55 05/04/22 12:55 05/04/22 12:55 05/04/22 12:55 Oxygen Flow Rate (L/min) 4 Oxygen Delivery Method Nasal Cannula Weight: 178.1 kg Body Mass Index (BMI) 61.4 Intake & Output: Intake and Output for Last 24 Hours 05/02/22 05/03/22 05/04/22 23:59 23:59 23:59 Intake Total 2703.33 / 2783.33 1713.33 / 1713.33 Output Total 450 / 925 2175 / 2175 Balance 2253.33 / 1858.33 -461.67 / -461.67 Lab / Micro Data Result Diagrams: 05/04/22 06:20 05/04/22 06:20 Labs: Laboratory Results - last 24 hr 05/04/22 06:20: WBC 9.1, RBC 3.57 L, Hgb 9.5 L, Hct 32.1 L, MCV 89.9, MCH 26.6 L, MCHC 29.6 L, RDW Std Deviation 44.3 H, RDW Coeff of David 13.5, Plt Count 228, MPV 11.0, Immature Gran % (Auto) 0.800, Neut % (Auto) 74.8 H, Lymph % (Auto) 16.2 L, [place] % (Auto) 6.5, Eos % (Auto) 1.5, Baso % (Auto) 0.2, Absolute Neuts (auto) 6.8, Absolute Lymphs (auto) 1.48, Nucleated RBC % 0 05/04/22 06:20: Sodium 138, Potassium 4.9, Chloride 99, Carbon Dioxide 35.0 H, Anion Gap 4 L, BUN 42 H, Creatinine 1.10 H, Estim Creat Clear Calc 52.89, Est GFR (MDRD) Af Amer 65, Est GFR (MDRD) Non-Af 54 L, BUN/Creatinine Ratio 38.2 H, Glucose 125 H, Calcium 9.5, Phosphorus 3.3, Magnesium 1.7, Total Bilirubin 0.40, AST 13 L, ALT 11 L, Alkaline Phosphatase 78, Total Protein 6.9, Albumin 2.7 L, Globulin 4.2, Albumin/Globulin Ratio 0.6 L, TSH 0.35 L Micro: Microbiology 05/03/22 11:10 Urine, Catheterized Urine Culture - Preliminary Presumptive E. coli 05/03/22 13:12 Mucosa - Nasopharyngeal Respiratory Panel (PCR) - Final 05/03/22 11:10 Nasal Secretion SARS-CoV-2 & FLU Antigen (Rapid) - Final Rhythm Strip Rhythm Strip: Sinus Rhythm Rate: 93 Ectopy: None Physical Exam Const alert and no apparent distress Constitutional Narrative: Super morbidly obese white female lying in bed, mentating well, appears comfortable, nontoxic, upon my arrival was sleeping but awakens easily HEENT normocephalic, head/scalp atraumatic, hearing grossly normal bilaterally and moist oral mucous membranes HEENT Narrative: Mallampati 4, edentulous, no thrush Resp normal respiratory effort, no retractions, no use of accessory muscles and clear to auscultation bilaterally Resp Narrative: Extremely distant, markedly diminished diffusely, appears comfortable Auscultation: Negative for crackles, rhonchi or wheezes Cardio regular rate, regular rhythm, S1 normal heart sound, S2 normal heart sound, no murmurs, no rub, no gallops and no clicks GI normal to inspection, nondistended, normoactive bowel sounds, soft to palpation and non-tender GI Narrative: Extremely protuberant abdomen Extremity no clubbing, cyanosis or edema Extremity Narrative: 2+ pedal pulses, cap refill is good Neuro oriented x3 Neuro Narrative: Increased movement right upper extremity due to pain in the shoulder and right lower extremity due to pain in the leg, reflexes are 2+ upper and lower extremities Speech: speech normal Psych affect normal Assessment & Plan Assessment/Plan (1) Hypoxia: (2) ZONIA (acute kidney injury): (3) Hyperkalemia: (4) Dehydration: (5) Diarrhea: (6) UTI (urinary tract infection): PLAN: Plan Acute hypoxia on chronic hypoxic and hypercapnic respiratory failure -Patient on 4 L of nasal cannula at baseline -We will need to clearly identify supplemental oxygen requirements at baseline -Patient has been down to 4 L which is her baseline -Continue aerosols -Continue home inhalers -No current need for steroids Acute urinary tract infection -UA is consistent with infection -Patient with dysuria on presentation -Continue Zosyn until we can identify resistance patterns with patient being in long-term facility and recent hospitalization -Urine culture preliminary is consistent with E. coli -Sensitivities are pending ZONIA due to severe dehydration -Serum creatinine is markedly elevated beyond baseline of 0.8-1 -serum creatinine was 2.04 on admission and now down to 1.1 with aggressive hydration -Patient with some resultant hypotension related to her volume depletion but seems to resolving with fluid resuscitation -Continue IV fluids for now -Restart home famotidine -Hold home Lasix -Hold home losartan -Hold home Aldactone -Repeat BMP in a.m. Hypotension -Resolved -Seems to be consistent with hypovolemia Acute on chronic diarrhea -Patient with issues of chronic diarrhea -No diarrhea since arrival -Continue C. difficile and enteric panel Hyperkalemia -Resolved GERD/peptic ulcer disease -Continue home Carafate -Continue home PPI -Restart famotidine Hypertension -Hold home Aldactone -Hold home losartan -Hold home Lasix -I be able to slowly reintroduce antihypertensives tomorrow depending on renal function and blood pressure COPD/MARISOL (suspected)/OHS -Continue chronic supplemental oxygen -Continue nebulizers -Hold home Daliresp -Continue home Spiriva -Continue Mucinex HFrEF -This is documented in the history however I have no subjective proof of this as we have no echo in our system and patient has not ever been here -Aldactone and losartan on hold -Patient is not on a beta-rome which does somewhat make me question the validity of this diagnosis -Lasix on hold -Monitor clinically Chronic pain related to falls and debility -Continue home gabapentin dose should be okay with renal dysfunction -Continue as needed Flexeril -Continue home amitriptyline -Continue home Ultram -Continue home lidocaine patch Depression/anxiety -Continue home Zoloft Debility -PT/OT following -I am unclear how much function she has a baseline Super morbid obesity -BMI 61.5 -Recommend weight loss -Complicates treatment, prognosis, outcomes CODE STATUS -Full code as per discussion on admission Charges/Coding Visit Charges Inpatient E&M: 23779 Subs Hosp L2
[2022-05-04] MEDS: Atorvastatin Calcium 20 MG Tablet PO (22:55)
[2022-05-04] MEDS: Amitriptyline 25 MG Tablet PO (22:56)
[2022-05-04] MEDS: Sertraline 100 MG Tablet PO (22:59)
[2022-05-04] MEDS: Famotidine 20 MG Tablet PO (23:04)
[2022-05-05] VITALS (7 sets, daily range): BP systolic 112–119; BP diastolic 46–62; PULSE 87–96; RESP 18–20; TEMP 36.6–37.2; O2SAT 92–100
[2022-05-05] MEDS: Ondansetron 4 MG/2 ML Vial IV (00:04)
[2022-05-05] MEDS: 0.9% Saline Lock 10 ML Syringe IV (00:04)
[2022-05-05] MEDS: Nystatin Powder 15gm Bottle 1 APPLIC TOPICAL ×3 (06:06→22:29)
[2022-05-05] MEDS: Acetaminophen 325 MG Tablet 650 MG PO ×2 (06:18→22:26)
[2022-05-05] MEDS: cycloBENZAPRine HCl 10 MG Tablet PO ×3 (06:18→22:26)
--- NOTE | 2022-05-05 06:25 | NURSING ---
Addendum entered by Ciara Tan 05/05/22 06:32: Patient refusing Heparin despite education. (Physician notified.) Original Note: Patient refused to be turned two times overnight despite education.
[2022-05-05] MEDS: Sucralfate 1 GM Tablet PO ×3 (06:26→16:26)
[2022-05-05] MEDS: Ipratropium/Albuterol Sulfate 3 ML AMPUL.NEB INHALATION (07:16)
[2022-05-05 07:42] LABS: Absolute Lymphocyte Count 1.39 X10^3/uL (0.83-4.51); Absolute Neutrophil Count 3.9 X10^3/uL (2.0-7.7); Basophil# 0.03 X10^3/uL; Basophil% 0.5 % (0-1); Eosinophils% 3.2 % (0-5); Hematocrit 31.5 % (37-47); Hemoglobin 9.3 g/dL (12.0-15.0); Lymphocyte # 1.39 X10^3/ul (0.83-4.51); Lymphocyte % 22.5 % (19-41); Mean Corp Hgb Conc 29.5 g/dL (32-36); Mean Corpuscular Hgb 26.8 pg (27.0-32.0); Mean Corpuscular Volume 90.8 fL (81-99); Mean Platelet Vol. 11.3 fl (6.2-12.0); Monocyte# 0.59 X10^3/uL; Monocyte% 9.5 % (0-10); NRBC Flagged by Analyzer 0 % (0-5); Neutrophil # 3.93 X10^3/uL (2.7-7.7); Neutrophil % 63.5 % (47-70); Platelet Count 207 K/mm3 (150-450); RBC Distribution Width CV 13.6 % (11.6-14.6); RBC Distribution Width SD 44.4 fl (35.1-43.9); Red Blood Count 3.47 M/mm3 (4.2-5.4); White Blood Count 6.2 K/mm3 (4.4-11.0)
[2022-05-05 08:09] LABS: Anion Gap 3 (5-15); BUN 20 mg/dL (7-18); BUN/Creat Ratio 26.2 RATIO (10-20); Calcium,Total 9.6 mg/dL (8.5-10.1); Chloride 102 mmol/L (98-107); Creatinine, Serum 0.76 mg/dL (0.55-1.02); EST Glomerular Filtration Rate 82 mL/min (>60); Est Glom Filt Rate - Afr Amer 99 mL/min (>60); Estimated Creatinine Clearance 76.55 ml/min; Glucose 114 mg/dL (74-106); Potassium 4.9 mmol/L (3.5-5.1); Sodium Level 140 mmol/L (136-145)
[2022-05-05] MEDS: 0.9% Normal Saline 1,000 ML 100 ML IV (09:09)
[2022-05-05] MEDS: Menthol/Lanolin/Calamine/Znox 113 GM Tube 1 APPLIC TOPICAL ×2 (09:24→22:29)
[2022-05-05] MEDS: Loratadine 10 MG Tablet PO (09:25)
[2022-05-05] MEDS: Lidocaine 5% Patch 1 PATCH TOPICAL (09:25)
[2022-05-05] MEDS: guaiFENesin 600 MG Tablet PO ×2 (09:26→22:25)
[2022-05-05] MEDS: Pantoprazole Sodium 20 MG Tablet PO (09:27)
[2022-05-05] MEDS: Montelukast 10 MG Tablet PO (09:27)
[2022-05-05] MEDS: Famotidine 20 MG Tablet PO ×2 (09:27→22:26)
[2022-05-05] MEDS: Gabapentin 300 MG Capsule PO ×2 (09:30→22:26)
--- NOTE | 2022-05-05 14:37 | ECHOCS_ITS ---
Reason For Study: Hx Heart Failure and HTN Procedure This was a 2D Doppler, Color Flow transthoracic echocardiogram. The study was technically difficult. Contrast injection was performed. The study was technically limited. Limited views were obtained. Exam performed portable in patient room. Left Ventricle Normal LV size. The estimated ejection fraction is 55-60 %. Right Ventricle Normal right ventricle. Atria Normal left atrium. Normal right atrium. Mitral Valve The mitral valve is structurally normal. No prolapse or stenosis seen. Tricuspid Valve Normal tricuspid valve. Aortic Valve Difficult to visualize/TDS. Pulmonic Valve The pulmonic valve is not well visualized. Pericardium/Pleural No pericardial effusion. Medication Diluted definity 2ml given slow IV push to enhance endocardial definition. Time Measurements MV dec time: 0.14 sec Doppler Measurements & Calculations MV E max michelet: 70.0 cm/sec Lat Peak E' Michelet: 14.9 cm/sec MV V2 max: 88.4 cm/sec MV A max michelet: 76.2 cm/sec E/E' lat: 4.7 MV max P.1 mmHg MV E/A: 0.92 MV V2 mean: 58.6 cm/sec MV mean P.6 mmHg MV V2 VTI: 22.2 cm MV P1/2t max michelet: 87.5 cm/sec Ao V2 max: 151.9 cm/sec PA V2 max: 104.6 cm/sec MV P1/2t: 46.5 msec Ao max P.2 mmHg MV dec slope: 550.5 cm/sec2 MVA(P1/2t): 4.7 cm2 ECHO/Echo Complete W/ Contrast Interpretation Summary The estimated ejection fraction is 55-60 %. AV Difficult to visualize/TDS TDS Contrast echo/Definity used with Normal LV wall motion and LV systolic function Ordering Physician: Alejandro Morillo Performed By: Jeronimo Mulligan RCS
--- NOTE | 2022-05-05 17:05 | NURSING ---
Infuse zosyn over minutes, pt will be discharged.
--- NOTE | 2022-05-05 17:30 | TREXTCAR_ITS ---
Diet Diet Order/Speech Therapy: 05/03/22 13:55 Diet: Cardiac - Heart Healthy Food consistency:: Regular Liquid Consistency:: Regular/Thin Is pt able to select menu?: Yes Routine Orders/Code Status O2 Liters per Minute: 4 O2 Frequency: Continuous Routine Lab Work: BMP (in two days) Code Status: Full Code Wound(s) LT FOOT 4TH TOE: Wound Type: Abrasion right abd fold: Wound Type: open slit Therapies Weight Bearing: Resume previous activity Physical Therapy: Eval and Treat Occupational Therapy: Eval and Treat Problem/Diagnosis (1) Hypoxia: Status: Acute Code(s): R09.02 - Hypoxemia Comment: Acute on chronic hypoxia (2) ZONIA (acute kidney injury): Status: Acute Code(s): N17.9 - Acute kidney failure, unspecified (3) Hyperkalemia: Status: Acute Code(s): E87.5 - Hyperkalemia (4) Dehydration: Status: Acute Code(s): E86.0 - Dehydration (5) Diarrhea: Status: Acute Code(s): R19.7 - Diarrhea, unspecified (6) UTI (urinary tract infection): Status: Acute Code(s): N39.0 - Urinary tract infection, site not specified Comment: E. coli (7) Acute and chronic respiratory failure with hypoxia: Status: Acute Code(s): J96.21 - Acute and chronic respiratory failure with hypoxia Allergies/Procedures Done in Hospital Allergies aspirin Allergy (Verified 05/03/22 10:11) Other black pepper [pepper] Allergy (Verified 05/03/22 10:11) Other coconut Allergy (Verified 05/03/22 10:11) Other codeine Allergy (Verified 05/03/22 10:11) Other ibuprofen Allergy (Verified 05/03/22 10:11) Other Influenza Virus Vaccines Allergy (Verified 05/03/22 10:11) Other rice Allergy (Verified 05/03/22 10:11) Other tetanus and diphtheria toxoids Allergy (Verified 05/03/22 10:11) Other Tetanus Vaccines and Toxoid Allergy (Verified 05/03/22 10:11) Other Procedures: None Type of Care/Length of Stay Estimated LOS: Convalescent Care Less Than 30 days Type of Care Needed: Skilled Rehab Potential: Good Prognosis: Good Additional Orders/Day of Discharge H&P will serve as current which was dated: 05/03/22 Day of Discharge: 05/05/22 Dietary and Speech Recommendations Dietitian Recommendations/Changes: Continue Cardiac diet to manage medical conditions. Discharge Plan Admission Admit Date/Time: 05/03/22 12:52 Primary Reason for Your Visit: Hypoxia, hypotension, acute kidney injury Attending Provider: Alejandro Morillo Primary Care Provider: Sepideh Patterson Consulting Providers: Marina Armas Discharge Orders/Prescriptions Prescriptions: New sucralfate 1 gram Tablet 1 g PO TID@0700,1100,1600 Qty: 0 0RF nystatin [Nyamyc] 100,000 unit/gram Powder 1 applic topical TID Qty: 0 0RF Protocol: *Topical Application Instructions APPLICATION INSTRUCTIONS: affected areas menthol-zinc oxide [Calmoseptine] 0.44-20.6 % Ointment 1 applic topical BID Qty: 0 0RF Protocol: *Topical Application Instructions APPLICATION INSTRUCTIONS: affected areas cephalexin 500 mg capsule 500 mg PO TID Qty: 15 0RF Rx Instructions: start on 05/06/22 Continued losartan 50 mg Tablet 50 mg PO DAILY cyclobenzaprine 10 mg Tablet 10 mg PO TID acetaminophen 325 mg Tablet 650 mg PO Q4H PRN (Reason: Pain) acetaminophen 325 mg Tablet 650 mg PO TID atorvastatin 20 mg Tablet 20 mg PO QHS lidocaine 4 % Adhesive Patch,Medicated 1 patch TOPICAL DAILY dextrose [Glucose Gel] 40 % Gel 10 g PO Q15M PRN (Reason: HYPOGLYCEMIC EPISODE) sertraline [Zoloft] 100 mg Tablet 100 mg PO QHS loperamide 2 mg Tablet 2 mg PO Q6H PRN (Reason: Diarrhea) hydroxyzine HCl 50 mg Tablet 50 mg PO Q12H PRN (Reason: Anxiety) famotidine 20 mg Tablet 20 mg PO BID amitriptyline 25 mg Tablet 25 mg PO QHS calcium polycarbophil [FiberCon] 625 mg Tablet 625 mg PO DAILY montelukast 10 mg Tablet 10 mg PO DAILY gabapentin 100 mg Capsule 300 mg PO BID ergocalciferol (vitamin D2) [Vitamin D2] 1,250 mcg (50,000 unit) Capsule 1,250 mcg PO SA albuterol sulfate 90 mcg/actuation Hfa Aerosol Inhaler 2 puff INHALATION Q2H PRN (Reason: Shortness Of Breath) fluticasone propionate 50 mcg/actuation [place],Suspension 2 spray INTRANASAL BID Muscle Rub 15-10 % Cream 1 applic TOPICAL BID PRN (Reason: LEFT SHOULDER PAIN) omeprazole 20 mg Tablet,Delayed Release (Dr/Ec) 20 mg PO DAILY ondansetron 4 mg Film 4 mg PO Q8H PRN (Reason: Nausea) roflumilast [Daliresp] 500 mcg Tablet 500 mcg PO DAILY Spiriva Respimat 2.5 mcg/actuation Mist 2 puff INHALATION QHS guaifenesin [Mucinex] 600 mg Tablet Extended Release 12hr 600 mg PO BID Changed dicyclomine 10 mg Capsule 10 mg PO 4X/DAY Qty: 1 0RF Discontinued furosemide 40 mg Tablet 40 mg PO BID sucralfate [Carafate] 100 mg/mL Suspension 10 ml PO TID tramadol 50 mg Tablet 50 mg PO Q8H PRN (Reason: MUSCLE WEAKNESS) benzonatate [Tessalon Perles] 100 mg Capsule 100 mg PO Q8H PRN (Reason: Cough) loratadine 10 mg Tablet 10 mg PO DAILY spironolactone 50 mg Tablet 50 mg PO DAILY Referrals / Follow Up: Sepideh Patterson MD [Primary Care Provider] - Disposition Disposition (needs filled in before D/C Order can be placed): Long Term Facility
--- NOTE | 2022-05-05 17:47 | DS.PCM_ITS ---
Providers Date of Admission: 05/03/22 Date of Discharge: 05/05/22 Primary Care Physician: Dr. Sepideh Patterson MD Reason For Visit: ZONIA 2/2 DEHYDRATION/UTI Diagnosis Discharge Diagnosis (1) Hypoxia: Status: Acute Code(s): R09.02 - Hypoxemia (2) ZONIA (acute kidney injury): Status: Acute Code(s): N17.9 - Acute kidney failure, unspecified (3) Hyperkalemia: Status: Acute Code(s): E87.5 - Hyperkalemia (4) Dehydration: Status: Acute Code(s): E86.0 - Dehydration (5) Diarrhea: Status: Acute Code(s): R19.7 - Diarrhea, unspecified (6) UTI (urinary tract infection): Status: Acute Code(s): N39.0 - Urinary tract infection, site not specified (7) Acute and chronic respiratory failure with hypoxia: Status: Acute Code(s): J96.21 - Acute and chronic respiratory failure with hypoxia Plan 1. Acute on chronic hypoxic and hypercapnic respiratory failure #2 acute cystitis from E. coli #3 acute kidney injury #4 essential hypertension #5 chronic obstructive pulmonary disease #6 hypokalemia #7 hyperkalemia #8 morbid obesity Medications at Discharge Home Medications acetaminophen 325 mg tablet 650 mg PO Q4H PRN Pain 05/03/22 acetaminophen 325 mg tablet 650 mg PO TID PAIN 05/03/22 albuterol sulfate 90 mcg/actuation aerosol inhaler 2 puff inhalation Q2H PRN Shortness Of Breath 05/03/22 amitriptyline 25 mg tablet 25 mg PO QHS DEPRESSION 05/03/22 atorvastatin 20 mg tablet 20 mg PO QHS CHOLESTEROL 05/03/22 calcium polycarbophil 625 mg tablet (FiberCon) 625 mg PO DAILY CONSTIPATION 05/03/22 cyclobenzaprine 10 mg tablet 10 mg PO TID MUSCLE SPASMS 05/03/22 dextrose 40 % oral gel (Glucose Gel) 10 g PO Q15M PRN HYPOGLYCEMIC EPISODE 05/03/22 ergocalciferol (vitamin D2) 1,250 mcg (50,000 unit) capsule (Vitamin D2) 1,250 mcg PO SA SUPPLEMENT 05/03/22 famotidine 20 mg tablet 20 mg PO BID GERD 05/03/22 fluticasone propionate 50 mcg/actuation nasal spray,suspension 2 spray intranasal BID NASAL CONGESTION 05/03/22 gabapentin 100 mg capsule 300 mg PO BID NERVE PAIN 05/03/22 guaifenesin 600 mg tablet, extended release 12 hr (Mucinex) 600 mg PO BID CONGESTION 05/03/22 hydroxyzine HCl 50 mg tablet 50 mg PO Q12H PRN Anxiety 05/03/22 lidocaine 4 % topical patch 1 patch topical DAILY PAIN 05/03/22 loperamide 2 mg tablet 2 mg PO Q6H PRN Diarrhea 05/03/22 losartan 50 mg tablet 50 mg PO DAILY BLOOD PRESSURE 05/03/22 methyl salicylate 15 %-menthol 10 % topical cream (Muscle Rub) 1 applic topical BID PRN LEFT SHOULDER PAIN 05/03/22 montelukast 10 mg tablet 10 mg PO DAILY ALLERGIES 05/03/22 omeprazole 20 mg tablet,delayed release 20 mg PO DAILY GERD 05/03/22 ondansetron 4 mg oral soluble film 4 mg PO Q8H PRN Nausea 05/03/22 roflumilast 500 mcg tablet (Daliresp) 500 mcg PO DAILY ASTHMA 05/03/22 sertraline 100 mg tablet (Zoloft) 100 mg PO QHS DEPRESSION 05/03/22 tiotropium bromide 2.5 mcg/actuation mist for inhalation (Spiriva Respimat) 2 puff inhalation QHS ASTHMA 05/03/22 cephalexin 500 mg capsule 500 mg PO TID #15 caps 05/05/22 dicyclomine 10 mg capsule 10 mg PO 4X/DAY #1 cap 05/05/22 menthol 0.44 %-zinc oxide 20.6 % topical ointment (Calmoseptine) 1 applic topical BID #0 grams 05/05/22 nystatin 100,000 unit/gram topical powder (Nyamyc) 1 applic topical TID #0 grams 05/05/22 sucralfate 1 gram tablet 1 g PO TID@0700,1100,1600 #0 tabs 05/05/22 Hospital Course Operations None Procedures 2-D Echocardiogram Summary of Care Provided Minutes Spent on Discharge: 32 Hospital Course: This 61-year-old white female was seen in the emergency room at [facility] after being sent in from a local extended care facility at which she is a chronic resident due to worsening hypoxia. Patient is on supplemental oxygen at the longterm. Evaluation in the emergency room showed the patient's blood pressure to be low at 84/60, oxygen sat was 88% on 3 L and her oxygen was increased to 4 L with a saturation of 93%. Patient was given IV fluids and her blood pressure was responsive to this. Chemistry panel showed an elevated potassium, BUN, and serum creatinine, chest x-ray showed no acute pulmonary pathology, UA was consistent with infection. Patient was admitted to [place] [address], IV antibiotics were continued, and her pulse ox was monitored. Patient improved during her hospital stay, echocardiogram was performed which showed a normal EF. On 05/05/2022, patient was seen and examined: On examination she appeared older than her stated age, she does not appear to be in any distress. Vital signs as documented. Skin warm and dry and without overt rashes. Neck without JVD, thyroid appears normal, trachea is midline, neck is supple. Lungs clear, normal air movement was noted. Heart exam notable for regular rhythm, normal sounds and absence of murmurs, rubs or gallops. Abdomen unremarkable and without evidence of organomegaly, masses, or abdominal aortic enlargement, bowel sounds are present in all 4 quadrants, no abdominal tenderness was noted. Extremities nonedematous, no cyanosis was noted, no clubbing was noted. Neuro: Cranial nerves II through XII are grossly intact, no focal motor deficits were noted, sensation to light touch and pinprick is intact, motor exam 5/5 throughout. Psych: Patient is alert and oriented x3, she does not appear anxious or depressed, she does not appear agitated. On 05/05/2022, patient was seen and examined felt to be in stable condition for transfer back to [facility] facility. Weight / BMI Weight Weight: 178.1 kg Body Mass Index (BMI) 61.4 ABG / Lab / Microbiology Data Result Diagrams: 05/05/22 06:55 05/05/22 06:55 Laboratory: Laboratory Results - last 24 hr 05/05/22 06:55: WBC 6.2, RBC 3.47 L, Hgb 9.3 L, Hct 31.5 L, MCV 90.8, MCH 26.8 L , MCHC 29.5 L, RDW Std Deviation 44.4 H, RDW Coeff of David 13.6, Plt Count 207, MPV 11.3, Immature Gran % (Auto) 0.800, Neut % (Auto) 63.5, Lymph % (Auto) 22.5, [place] % (Auto) 9.5, Eos % (Auto) 3.2, Baso % (Auto) 0.5, Absolute Neuts (auto) 3.9, Absolute Lymphs (auto) 1.39, Nucleated RBC % 0 05/05/22 06:55: Sodium 140, Potassium 4.9, Chloride 102, Carbon Dioxide 35.0 H, Anion Gap 3 L, BUN 20 H, Creatinine 0.76, Estim Creat Clear Calc 76.55, Est GFR (MDRD) Af Amer 99, Est GFR (MDRD) Non-Af 82, BUN/Creatinine Ratio 26.2 H, Glucose 114 H, Calcium 9.6 Microbiology: Microbiology 05/03/22 10:50 Blood Culture (Wb) - Left Hand Blood Culture - Preliminary No growth in 48 hours. 05/03/22 10:40 Blood Culture (Wb) - Anticubital Left Blood Culture - Preliminary No growth in 48 hours. 05/03/22 11:10 Urine, Catheterized Urine Culture - Final Escherichia coli 05/04/22 17:30 Stool C. difficile DNA Amplification - Final 05/03/22 13:12 Mucosa - Nasopharyngeal Respiratory Panel (PCR) - Final 05/03/22 11:10 Nasal Secretion SARS-CoV-2 & FLU Antigen (Rapid) - Final Meaningful Use Info Meaningful Use Diagnoses (Choose all that apply): None applicable Discharge Plan Admission Admit Date/Time: 05/03/22 12:52 Primary Reason for Your Visit: Hypoxia, hypotension, acute kidney injury Attending Provider: Alejandro Morillo Primary Care Provider: Sepideh Patterson Consulting Providers: Marina Armas Discharge Orders/Prescriptions Prescriptions: New sucralfate 1 gram Tablet 1 g PO TID@0700,1100,1600 Qty: 0 0RF nystatin [Nyamyc] 100,000 unit/gram Powder 1 applic topical TID Qty: 0 0RF Protocol: *Topical Application Instructions APPLICATION INSTRUCTIONS: affected areas menthol-zinc oxide [Calmoseptine] 0.44-20.6 % Ointment 1 applic topical BID Qty: 0 0RF Protocol: *Topical Application Instructions APPLICATION INSTRUCTIONS: affected areas cephalexin 500 mg capsule 500 mg PO TID Qty: 15 0RF Rx Instructions: start on 05/06/22 Continued losartan 50 mg Tablet 50 mg PO DAILY cyclobenzaprine 10 mg Tablet 10 mg PO TID acetaminophen 325 mg Tablet 650 mg PO Q4H PRN (Reason: Pain) acetaminophen 325 mg Tablet 650 mg PO TID atorvastatin 20 mg Tablet 20 mg PO QHS lidocaine 4 % Adhesive Patch,Medicated 1 patch TOPICAL DAILY dextrose [Glucose Gel] 40 % Gel 10 g PO Q15M PRN (Reason: HYPOGLYCEMIC EPISODE) sertraline [Zoloft] 100 mg Tablet 100 mg PO QHS loperamide 2 mg Tablet 2 mg PO Q6H PRN (Reason: Diarrhea) hydroxyzine HCl 50 mg Tablet 50 mg PO Q12H PRN (Reason: Anxiety) famotidine 20 mg Tablet 20 mg PO BID amitriptyline 25 mg Tablet 25 mg PO QHS calcium polycarbophil [FiberCon] 625 mg Tablet 625 mg PO DAILY montelukast 10 mg Tablet 10 mg PO DAILY gabapentin 100 mg Capsule 300 mg PO BID ergocalciferol (vitamin D2) [Vitamin D2] 1,250 mcg (50,000 unit) Capsule 1,250 mcg PO SA albuterol sulfate 90 mcg/actuation Hfa Aerosol Inhaler 2 puff INHALATION Q2H PRN (Reason: Shortness Of Breath) fluticasone propionate 50 mcg/actuation [place],Suspension 2 spray INTRANASAL BID Muscle Rub 15-10 % Cream 1 applic TOPICAL BID PRN (Reason: LEFT SHOULDER PAIN) omeprazole 20 mg Tablet,Delayed Release (Dr/Ec) 20 mg PO DAILY ondansetron 4 mg Film 4 mg PO Q8H PRN (Reason: Nausea) roflumilast [Daliresp] 500 mcg Tablet 500 mcg PO DAILY Spiriva Respimat 2.5 mcg/actuation Mist 2 puff INHALATION QHS guaifenesin [Mucinex] 600 mg Tablet Extended Release 12hr 600 mg PO BID Changed dicyclomine 10 mg Capsule 10 mg PO 4X/DAY Qty: 1 0RF Discontinued furosemide 40 mg Tablet 40 mg PO BID sucralfate [Carafate] 100 mg/mL Suspension 10 ml PO TID tramadol 50 mg Tablet 50 mg PO Q8H PRN (Reason: MUSCLE WEAKNESS) benzonatate [Tessalon Perles] 100 mg Capsule 100 mg PO Q8H PRN (Reason: Cough) loratadine 10 mg Tablet 10 mg PO DAILY spironolactone 50 mg Tablet 50 mg PO DAILY Referrals / Follow Up: Sepideh Patterson MD [Primary Care Provider] - Disposition Disposition (needs filled in before D/C Order can be placed): Shelter Facility Charges/Coding Visit Charges Inpatient E&M: 45051 Disch Hosp >30min
--- NOTE | 2022-05-05 18:25 | NURSING ---
Left message for Yaneth at [phone], including stating she will be returning to [facility] around 2200 and 2300.
[2022-05-05] MEDS: Sertraline 100 MG Tablet PO (22:25)
[2022-05-05] MEDS: Atorvastatin Calcium 20 MG Tablet PO (22:26)
[2022-05-05] MEDS: Amitriptyline 25 MG Tablet PO (22:27)
[2022-05-06 00:14] VITALS: BP 115/73; PULSE 75; RESP 20; TEMP 37; O2SAT 96
== END 2022-05-06 00:15 | disposition skilled nursing facility (03) | DRG 683 ==
LOC: ED 11:42 → MS3 13:26
PROVIDERS: Admitting Provider Internal Medicine; Emergency Provider Emergency Medicine; PCP Internal Medicine; Visit Provider Internal Medicine
DX: N17.9 Acute kidney failure, unspecified (principal); J96.12 Chronic respiratory failure with hypercapnia; Z68.44 Body mass index [BMI] 60.0-69.9, adult; J96.10 Chronic respiratory failure, unspecified whether with hypoxia or hypercapnia; N30.00 Acute cystitis without hematuria; J44.9 Chronic obstructive pulmonary disease, unspecified; E66.01 Morbid (severe) obesity due to excess calories; E86.0 Dehydration; D64.9 Anemia, unspecified; E87.5 Hyperkalemia; K21.9 Gastro-esophageal reflux disease without esophagitis; F41.9 Anxiety disorder, unspecified; K52.9 Noninfective gastroenteritis and colitis, unspecified; M79.7 Fibromyalgia; E78.2 Mixed hyperlipidemia; E86.1 Hypovolemia; I10 Essential (primary) hypertension; E87.6 Hypokalemia; R53.81 Other malaise; Z87.891 Personal history of nicotine dependence; G89.29 Other chronic pain; K27.9 Peptic ulcer, site unspecified, unspecified as acute or chronic, without hemorrhage or perforation; F32.A Depression, unspecified; B96.20 Unspecified Escherichia coli [E. coli] as the cause of diseases classified elsewhere
CPT/HCPCS: 36415; 51702; 71045; 80048; 80053; 81001; 83605; 83735; 83880; 84100; 84443; 85025; 85610; 85730; 87040; 87086; 87088; 87186; 87428; 87493; 87633; 87811; 93005; 93306; 94640; 94668; 97110; 97162; 97166; 97530; 99252; 99285; J7030; J7040; Q9957; A4216; C8929; G0463; J2405

== ENCOUNTER → 2022-05-08 | Outpatient (REF) | payer MEDICARE, MEDICAID, SELFPAY ==
[2022-05-08 09:52] LABS: Absolute Neutrophil Count 4.6 X10^3/uL (2.0-7.7); Basophil# 0.02 X10^3/uL; Basophil% 0.3 % (0-1); Eosinophil# 0.24 X10^3/uL; Eosinophils% 3.2 % (0-5); Hemoglobin 10.1 g/dL (12.0-15.0); Lymphocyte % 25.4 % (19-41); Mean Corp Hgb Conc 28.9 g/dL (32-36); Mean Corpuscular Hgb 26.6 pg (27.0-32.0); Mean Corpuscular Volume 92.3 fL (81-99); Mean Platelet Vol. 11.4 fl (6.2-12.0); Monocyte# 0.65 X10^3/uL; Monocyte% 8.7 % (0-10); NRBC Flagged by Analyzer 0 % (0-5); Neutrophil % 61.3 % (47-70); Platelet Count 235 K/mm3 (150-450); RBC Distribution Width CV 13.8 % (11.6-14.6); Red Blood Count 3.79 M/mm3 (4.2-5.4); White Blood Count 7.5 K/mm3 (4.4-11.0)
[2022-05-08 10:01] LABS: Anion Gap 5 (5-15); BUN 13 mg/dL (7-18); BUN/Creat Ratio 17.4 RATIO (10-20); Calcium,Total 9.6 mg/dL (8.5-10.1); Chloride 96 mmol/L (98-107); Creatinine, Serum 0.75 mg/dL (0.55-1.02); EST Glomerular Filtration Rate 84 mL/min (>60); Est Glom Filt Rate - Afr Amer 102 mL/min (>60); Glucose 104 mg/dL (74-106); Potassium 3.3 mmol/L (3.5-5.1); Sodium Level 141 mmol/L (136-145)
== END ==
LOC: OLS.SW 05:00
PROVIDERS: PCP Internal Medicine; Visit Provider Internal Medicine
DX: N39.0 Urinary tract infection, site not specified (principal)
CPT/HCPCS: 36415; 80048; 85025

== ENCOUNTER 2022-05-14 09:31 | Inpatient (IN) | payer MEDICARE, MEDICAID, SELFPAY ==
[2022-05-14] VITALS (12 sets, daily range): BP systolic 87–110; BP diastolic 48–84; PULSE 61–95; RESP 14–20; TEMP 36.2–36.9; O2SAT 87–98; BMI 61.0; BMI 61.2
--- NOTE | 2022-05-14 09:41 | RAD_ITS ---
STUDY: X-RAY CHEST REASON FOR EXAM: Female, 61 years old. sob TECHNIQUE: Single AP portable view of the chest. The images are under penetrated. COMPARISON: May 03, 2022 FINDINGS: Moderate consolidation is present in the right lower lobe and associated with a small pleural effusion. Pulmonary vascular congestion is seen throughout both lungs. There is slight right lung volume loss possibly due to atelectasis or chronic disease. Normal size heart. Normal mediastinum and lito. Normal visualized pulmonary arteries. Normal visualized aortic arch and descending thoracic aorta. There are diffuse degenerative changes of the visualized thoracic spine. Normal visualized ribs, clavicles, and shoulders. There is no demonstrated abnormality of the visualized soft tissue structures of the upper abdomen. RAD/Chest 1 View (Portable) IMPRESSION: 1. Moderate consolidation is present in the right lower lobe and associated with a small pleural effusion. Pulmonary vascular congestion is seen throughout both lungs. There is slight right lung volume loss possibly due to atelectasis or chronic disease. Electronically Signed: Jaron Foreman MD at 11:35 EST ,
--- NOTE | 2022-05-14 09:41 | EKG12_ITS ---
Test Reason : Blood Pressure : / mmHG Vent. Rate : 094 BPM Atrial Rate : 094 BPM P-R Int : 196 ms QRS Dur : 146 ms QT Int : 384 ms P-R-T Axes : 051 040 034 degrees QTc Int : 480 ms Normal sinus rhythm Right bundle branch block Lateral infarct , age undetermined Cannot rule out Inferior infarct , age undetermined Abnormal ECG Confirmed by DOMINICK VILLAR, AMITA ([id number]), clinical editor CHACHA REID ([id number]) on 05/15/2022 1:02:54 PM Referred By: Confirmed By:AMITA TAN MD
--- NOTE | 2022-05-14 09:44 | EDS_ITS ---
HPI History of Present Illness Chief Complaint: Hypotension Detail of Chief Complaint: Hypotension, low pulse ox Informant: patient and SNF Narrative Narrative: Patient sent in from local ECF secondary to low blood pressure and low pulse ox. Patient was admitted to the hospital recently with similar symptoms secondary to UTI and kidney injury. Patient states that she is currently on 4 L nasal cannula at all times. She does report increased thirst and dry mouth, but states that she is urinating frequently. She denies fever or chills. [facility] Medical History Acute kidney failure with tubular necrosis Chronic anemia Chronic pain Chronic respiratory failure with hypoxia COPD (chronic obstructive pulmonary disease) Depression Fibromyalgia GERD (gastroesophageal reflux disease) HFrEF (heart failure with reduced ejection fraction) HTN (hypertension) Hyperlipidemia Morbid obesity Obesity hypoventilation syndrome MARISOL (obstructive sleep apnea) Peptic ulcer disease Personal history of transient ischemic attack (TIA), and cerebral infarction without residual deficits Seasonal allergies TIA (transient ischemic attack) UTI (urinary tract infection) Vitamin D deficiency Home Medications acetaminophen 325 mg tablet 650 mg PO Q4H PRN Pain 05/03/22 [History Last Taken Unknown] acetaminophen 325 mg tablet 650 mg PO TID PAIN 05/03/22 [History Last Taken 05/03/22] albuterol sulfate 90 mcg/actuation aerosol inhaler 2 puff inhalation Q2H PRN Shortness Of Breath 05/03/22 [History Last Taken Unknown] amitriptyline 25 mg tablet 25 mg PO QHS DEPRESSION 05/03/22 [History Last Taken 05/02/22] atorvastatin 20 mg tablet 20 mg PO QHS CHOLESTEROL 05/03/22 [History Last Taken 05/02/22] calcium polycarbophil 625 mg tablet (FiberCon) 625 mg PO DAILY CONSTIPATION 05/03/22 [History Last Taken 05/03/22] cyclobenzaprine 10 mg tablet 10 mg PO TID MUSCLE SPASMS 05/03/22 [History Last Taken 05/03/22] dextrose 40 % oral gel (Glucose Gel) 10 g PO Q15M PRN HYPOGLYCEMIC EPISODE 05/03/22 [History Last Taken Unknown] ergocalciferol (vitamin D2) 1,250 mcg (50,000 unit) capsule (Vitamin D2) 1,250 mcg PO SA SUPPLEMENT 05/03/22 [History Last Taken 04/29/22] famotidine 20 mg tablet 20 mg PO BID GERD 05/03/22 [History Last Taken 05/03/22] fluticasone propionate 50 mcg/actuation nasal spray,suspension 2 spray intranasal BID NASAL CONGESTION 05/03/22 [History Last Taken 05/03/22] gabapentin 100 mg capsule 300 mg PO BID NERVE PAIN 05/03/22 [History Last Taken 05/03/22] guaifenesin 600 mg tablet, extended release 12 hr (Mucinex) 600 mg PO BID CONGESTION 05/03/22 [History Last Taken 05/03/22] hydroxyzine HCl 50 mg tablet 50 mg PO Q12H PRN Anxiety 05/03/22 [History Last Taken Unknown] lidocaine 4 % topical patch 1 patch topical DAILY PAIN 05/03/22 [History Last Taken 05/03/22] loperamide 2 mg tablet 2 mg PO Q6H PRN Diarrhea 05/03/22 [History Last Taken Unknown] losartan 50 mg tablet 50 mg PO DAILY BLOOD PRESSURE 05/03/22 [History Last Taken 05/03/22] methyl salicylate 15 %-menthol 10 % topical cream (Muscle Rub) 1 applic topical BID PRN LEFT SHOULDER PAIN 05/03/22 [History Last Taken 05/03/22] montelukast 10 mg tablet 10 mg PO DAILY ALLERGIES 05/03/22 [History Last Taken 05/03/22] omeprazole 20 mg tablet,delayed release 20 mg PO DAILY GERD 05/03/22 [History Last Taken 05/03/22] ondansetron 4 mg oral soluble film 4 mg PO Q8H PRN Nausea 05/03/22 [History Last Taken Unknown] roflumilast 500 mcg tablet (Daliresp) 500 mcg PO DAILY ASTHMA 05/03/22 [History Last Taken 05/03/22] sertraline 100 mg tablet (Zoloft) 100 mg PO QHS DEPRESSION 05/03/22 [History Last Taken 05/02/22] tiotropium bromide 2.5 mcg/actuation mist for inhalation (Spiriva Respimat) 2 puff inhalation QHS ASTHMA 05/03/22 [History Last Taken 05/02/22] cephalexin 500 mg capsule 500 mg PO TID #15 caps 05/05/22 [Rx Last Taken Unknown] dicyclomine 10 mg capsule 10 mg PO 4X/DAY #1 cap 05/05/22 [Rx Last Taken Unknown] menthol 0.44 %-zinc oxide 20.6 % topical ointment (Calmoseptine) 1 applic topical BID #0 grams 05/05/22 [Rx Last Taken Unknown] nystatin 100,000 unit/gram topical powder (Nyamyc) 1 applic topical TID #0 grams 05/05/22 [Rx Last Taken Unknown] sucralfate 1 gram tablet 1 g PO TID@0700,1100,1600 #0 tabs 05/05/22 [Rx Last Taken Unknown] Allergy/AdvReac Type Severity Reaction Status Date / Time aspirin Allergy Other Verified 05/14/22 09:43 black pepper [pepper] Allergy Other Verified 05/14/22 09:43 coconut Allergy Other Verified 05/14/22 09:43 codeine Allergy Other Verified 05/14/22 09:43 ibuprofen Allergy Other Verified 05/14/22 09:43 Influenza Virus Vaccines Allergy Other Verified 05/14/22 09:43 Penicillins Allergy Anaphylaxis Verified 05/14/22 09:43 rice Allergy Other Verified 05/14/22 09:43 tetanus and diphtheria Allergy Other Verified 05/14/22 09:43 toxoids Tetanus Vaccines and Toxoid Allergy Other Verified 05/14/22 09:43 Family History Other CAD (coronary artery disease) COPD (chronic obstructive pulmonary disease) Hypertension Social History housing: snf Smoking Status: Former smoker alcohol intake: never substance use type: does not use ROS ROS ED Constitutional Constitutional ED: Denies chills or fever(s) Eyes Eyes: Denies change in vision or discharge from eye(s) ENT ENT ED: Denies discharge from eye(s), rhinorrhea or sore throat Cardiovascular Cardiovascular: Denies chest pain or palpitations Respiratory/Chest Respiratory/Chest: Denies cough or dyspnea Gastrointestinal Gastrointestinal: Denies abdominal pain, diarrhea, nausea or vomiting Genitourinary Genitourinary ED: Reports urinary frequency; Denies difficulty urinating or dysuria Musculoskeletal Musculoskeletal: Denies back pain or extremity pain Integumentary Denies Abrasions or rash Neurologic Neurologic: Denies headache(s) or weakness Psychiatric Psychiatric: Denies anxiety or depression Allergic/Immunologic Allergic/Immunologic ED: Denies lip swelling or urticaria EXAM Physical Exam Const Vital Signs: 05/14/22 09:33 05/14/22 09:36 05/14/22 09:44 Temperature 97.2 F L 97.2 F L Temperature Source Temporal Temporal Pulse Rate 95 95 Respiratory Rate 18 20 H Respiratory Effort Normal Non-Labored Respiratory Depth Normal Respiratory Pattern Tachypnea Blood Pressure 93/48 L 93/48 L Blood Pressure Mean 63 63 Pulse Ox 87 92 Oxygen Delivery Method Nasal Cannula Nasal Cannula Oxygen Flow Rate (L/min) 4 4 05/14/22 09:41 05/14/22 09:54 05/14/22 10:36 Temperature 98 F Temperature Source Temporal Pulse Rate 94 61 Respiratory Rate 20 H 18 Respiratory Effort Respiratory Depth Respiratory Pattern Blood Pressure 110/84 H 87/56 L Blood Pressure Mean 92 66 Pulse Ox 92 98 Oxygen Delivery Method Nasal Cannula Nasal Cannula Nasal Cannula Oxygen Flow Rate (L/min) 5 05/14/22 11:53 Temperature Temperature Source Pulse Rate 80 Respiratory Rate 18 Respiratory Effort Respiratory Depth Respiratory Pattern Blood Pressure 98/65 Blood Pressure Mean 76 Pulse Ox 96 Oxygen Delivery Method Nasal Cannula Oxygen Flow Rate (L/min) Positive well nourished and well developed General Appearance ED: well developed HEENT Reports normocephalic and head/scalp atraumatic Eyes PERRL and EOMs intact bilaterally Neck supple Chest Wall inspection of chest normal and palpation of chest normal Resp normal respiratory effort Resp Narrative: Diminished bilateral bases. Cardio regular rate and regular rhythm GI normal to inspection, nondistended, normoactive bowel sounds Palpation: soft Neuro oriented x3 Neuro Narrative: No focal neurologic deficits. Sensorium / Orientation: alert Psych mental status grossly normal Skin no rashes or lesions noted MDM MDM MDM Narrative Medical decision making narrative: Sepsis work-up initiated. Patient's recent hospitalization notes reviewed. Patient ordered 1 L IV fluids. O2 sats are stable on 5 L nasal cannula and she reports wearing 4 L at baseline. Chest x-ray obtained given her mild hypoxia and right humerus x-ray obtained with reported pain and fall 4 months ago. Lab Data Attestation: I reviewed the patient's lab results. Labs: Laboratory Results - last 24 hr 05/14/22 05/14/22 05/14/22 10:00 10:00 10:00 WBC 12.7 H RBC 3.90 L Hgb 10.3 L Hct 35.5 L MCV 91.0 MCH 26.4 L MCHC 29.0 L RDW Std Deviation 45.2 H RDW Coeff of David 13.6 Plt Count 265 MPV 11.8 Immature Gran % (Auto) 1.600 H Neut % (Auto) 75.5 H Lymph % (Auto) 16.4 L [place] % (Auto) 6.1 Eos % (Auto) 0.2 Baso % (Auto) 0.2 Absolute Neuts (auto) 9.6 H Absolute Lymphs (auto) 2.09 Nucleated RBC % 0 PT 12.9 INR 1.0 APTT 27.9 Sodium 139 Potassium 4.2 Chloride 89 L Carbon Dioxide 42.0 H Anion Gap 8 BUN 47 H Creatinine 2.36 H Estim Creat Clear Calc 24.65 Est GFR (MDRD) Af Amer 27 L Est GFR (MDRD) Non-Af 22 L BUN/Creatinine Ratio 19.9 Glucose 122 H Lactic Acid Calcium 9.6 Total Bilirubin 0.30 AST 8 L ALT 10 L Alkaline Phosphatase 82 Total Protein 7.5 Albumin 3.0 L Globulin 4.5 H Albumin/Globulin Ratio 0.7 L Urine Color Urine Clarity Urine pH Ur Specific [place] Urine Protein Urine Glucose (UA) Urine Ketones Urine Occult Blood Urine Nitrite Urine Bilirubin Urine Urobilinogen Ur Leukocyte Esterase Urine RBC Urine WBC Ur Squamous Epith Cells Urine Bacteria Urine Mucus 05/14/22 05/14/22 10:00 11:13 WBC RBC Hgb Hct MCV MCH MCHC RDW Std Deviation RDW Coeff of David Plt Count MPV Immature Gran % (Auto) Neut % (Auto) Lymph % (Auto) [place] % (Auto) Eos % (Auto) Baso % (Auto) Absolute Neuts (auto) Absolute Lymphs (auto) Nucleated RBC % PT INR APTT Sodium Potassium Chloride Carbon Dioxide Anion Gap BUN Creatinine Estim Creat Clear Calc Est GFR (MDRD) Af Amer Est GFR (MDRD) Non-Af BUN/Creatinine Ratio Glucose Lactic Acid 1.6 Calcium Total Bilirubin AST ALT Alkaline Phosphatase Total Protein Albumin Globulin Albumin/Globulin Ratio Urine Color Yellow Urine Clarity Clear Urine pH 6.0 Ur Specific [place] 1.015 Urine Protein 30 H Urine Glucose (UA) 100 H Urine Ketones Negative Urine Occult Blood Negative Urine Nitrite Positive H Urine Bilirubin Negative Urine Urobilinogen Normal Ur Leukocyte Esterase 100 H Urine RBC 0 SEEN Urine WBC 10-25 SEEN Ur Squamous Epith Cells 0 SEEN Urine Bacteria 2+ Urine Mucus 0 SEEN Radiography Chest X-Ray - ED: 1 View, Read by ED Physician, Chronic Changes and - (Small pleural effusions) Diagnostic Testing: Clinical Impression(s) from Imaging Studies Chest X-Ray 05/14/22 09:41 IMPRESSION: 1. Moderate consolidation is present in the right lower lobe and associated with a small pleural effusion. Pulmonary vascular congestion is seen throughout both lungs. There is slight right lung volume loss possibly due to atelectasis or chronic disease. Electronically Signed: Jaron Foreman MD at 11:35 EST , Humerus X-Ray 05/14/22 09:57 IMPRESSION: 1. No visualized fracture of the humerus Electronically Signed: Jaron Foreman MD at 11:36 EST Reading Location ID and State: [facility] / [place] , Service support , EKG Initial EKG: Attestation: I personally reviewed and interpreted this EKG as follows: Interpretation: Sinus Rhythm (Sinus at 94 with right bundle branch block. No acute ischemia.) Treatment and Re-Evaluation Narrative: CBC reveals mild leukocytosis with a white count of 12.7 and 75% neutrophils. Hemoglobin is 10.3. Coags are unremarkable. Chemistry studies reveal a BUN of 47 and a creatinine of 2.36. When patient was in the hospital last her creatinine had gone from 2.0 down to 0.87. Liver function tests are unremarkable. Lactic acid is 1.6. Urinalysis was obtained via catheter insertion. Urine is positive for nitrites with 10-25 white cells and 2+ bacteria. I did review her most recent urine culture and she was sensitive to Rocephin. She is given a dose of Rocephin here. Portable chest x-ray per my interpretation was chronic changes with congestion and small bilateral pleural effusions. Right humerus x-ray per my interpretation reveals no fracture. Radiology interpretations are reviewed. At this time patient will be discussed with hospitalist for admission given her ongoing UTI and acute kidney injury. Blood pressure responded well to IV fluids, but most recent readings have dropped again to the 80s over 50s. Her map remains greater than 65. Nursing staff is obtaining manual blood pressure at this time and will give another fluid bolus as needed. Discharge Plan Dx/Rx/DC Orders Clinical Impression: UTI (urinary tract infection), Acute kidney injury Disposition Disposition: Acute Care Hospital [facility]
--- NOTE | 2022-05-14 09:57 | RAD_ITS ---
STUDY: X-RAY - RIGHT HUMERUS REASON FOR EXAM: Female, 61 years old. RIGHT SHOULDER PAIN. FALL IN OCT. PT VERY LARGE BODY HABITUS UNWILLING TO DO ANYTHING TO HELP OBTAIN IMAGES. BEST FILMS POSSIBLE TECHNIQUE: 6 view(s) of the humerus. COMPARISON: None. FINDINGS: Normal visualized humerus. There is no demonstrated fracture or osseous destructive process. RAD/Humerus min 2 Views IMPRESSION: 1. No visualized fracture of the humerus Electronically Signed: Jaron Foreman MD at 11:36 EST ,
[2022-05-14 10:10] LABS: Absolute Lymphocyte Count 2.09 X10^3/uL (0.83-4.51); Absolute Neutrophil Count 9.6 X10^3/uL (2.0-7.7); Basophil# 0.02 X10^3/uL; Basophil% 0.2 % (0-1); Eosinophil# 0.02 X10^3/uL; Eosinophils% 0.2 % (0-5); Hematocrit 35.5 % (37-47); Hemoglobin 10.3 g/dL (12.0-15.0); Lymphocyte # 2.09 X10^3/ul (0.83-4.51); Lymphocyte % 16.4 % (19-41); Mean Corpuscular Hgb 26.4 pg (27.0-32.0); Mean Platelet Vol. 11.8 fl (6.2-12.0); Monocyte# 0.77 X10^3/uL; Monocyte% 6.1 % (0-10); NRBC Flagged by Analyzer 0 % (0-5); Neutrophil # 9.62 X10^3/uL (2.7-7.7); Neutrophil % 75.5 % (47-70); Platelet Count 265 K/mm3 (150-450); RBC Distribution Width CV 13.6 % (11.6-14.6); RBC Distribution Width SD 45.2 fl (35.1-43.9); White Blood Count 12.7 K/mm3 (4.4-11.0)
[2022-05-14 10:19] LABS: Partial Thromboplast Time 27.9 Seconds (24.1-36.2); Prothrombin Time (Protime)PT. 12.9 SECONDS (11.7-14.9)
[2022-05-14 10:26] LABS: ALB/GLOB Ratio 0.7 RATIO (0.9-2.4); AST(SGOT) 8 U/L (15-37); Alanine Aminotransfer ALT/SGPT 10 U/L (13-56); Alkaline Phosphatase 82 U/L (45-117); Anion Gap 8 (5-15); BUN 47 mg/dL (7-18); BUN/Creat Ratio 19.9 RATIO (10-20); Calcium,Total 9.6 mg/dL (8.5-10.1); Chloride 89 mmol/L (98-107); Creatinine, Serum 2.36 mg/dL (0.55-1.02); EST Glomerular Filtration Rate 22 mL/min (>60); Est Glom Filt Rate - Afr Amer 27 mL/min (>60); Estimated Creatinine Clearance 24.65 ml/min; Globulin 4.5 g/dL (2.2-4.2); Glucose 122 mg/dL (74-106); Potassium 4.2 mmol/L (3.5-5.1); Protein, Total 7.5 g/dL (6.4-8.2); Sodium Level 139 mmol/L (136-145)
[2022-05-14 10:34] LABS: Lactic Acid 1.6 mmol/L (0.4-1.9)
[2022-05-14 11:17] LABS: Mucous, Urine 0 SEEN /hpf (<or=2+); Red Blood Cells-Urine 0 SEEN /hpf (0-5); Squamous Epithelial Cells - UA 0 SEEN /hpf (5-10)
[2022-05-14 11:18] LABS: Color, Urine Yellow (Yellow); Glucose, Dipstick 100 mg/dl (Normal); Ketone-Dipstick Negative (Negative); Leukocyte Esterase-Dipstick 100 /ul (Negative); Nitrite-Dipstick Positive (Negative); Occult Blood-Urine Negative /ul (Negative); Protein-Dipstick 30 mg/dl (Negative); Specific Gravity, Urine 1.015 (1.002-1.030); Urine Bilirubin Dipstick Negative (Negative); Urine Clarity Clear (Clear); Urine Urobilinogen Normal (Normal)
[2022-05-14 11:25] LABS: Bacteria 2+ /hpf (None Seen); White Blood Cells 10-25 SEEN /hpf (0-5)
--- NOTE | 2022-05-14 11:50 | NURSING ---
DR SWAN FOR DR RAMIREZ
--- NOTE | 2022-05-14 11:55 | NURSING ---
PCU SWAN UTI, ZONIA, HYPOTENSION
--- NOTE | 2022-05-14 11:56 | ED.RN ---
BASED ON PT PAST MEDICAL HX NO FLUID RESUSCITATION ORDERED.
[2022-05-14] MEDS: 0.9% Normal Saline 1,000 ML 150 ML IV (12:06)
[2022-05-14] MEDS: Ceftriaxone 1 GM/50 ML BAG IV (12:07)
--- NOTE | 2022-05-14 12:30 | PCM.HP.STD ---
HPI - General General Date of Admission: 05/14/22 Date of Service: 05/14/22 Chief Complaint: Low blood pressure HPI Narrative HE TRAYLOR, is a 61 F with a history of hypertension, morbid obesity, MARISOL and obesity hypoventilation syndrome, COPD who presented 05/14/2022 from senior living for low blood pressure and reported low O2. She is on 4 L at baseline and on presentation here she was 94% on 5 L and was decreased back to baseline. Did have low BP that was fluid responsive and on my evaluation systolic was 103. Labs in ED with white count 12.7 with a left shift, ZONIA as well as UA suggestive of UTI. Started on fluids, given dose of Rocephin, hospitalist consulted for admission. She was recently admitted on 05/03 for similar presentation and was discharged to SNF as she quickly stabilized. Unable to obtain history from patient and ED as she is sleeping, did wake up to sternal rub and said ow that hurts but then would not participate in exam. [facility] Medical History (Updated 05/14/22 @ 12:[address] 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 deficits Seasonal allergies TIA (transient ischemic attack) UTI (urinary tract infection) Vitamin D deficiency Home Medications acetaminophen 325 mg tablet 650 mg PO Q4H PRN Pain 05/03/22 [History Last Taken Unknown] acetaminophen 325 mg tablet 650 mg PO TID PAIN 05/03/22 [History Last Taken 05/03/22] albuterol sulfate 90 mcg/actuation aerosol inhaler 2 puff inhalation Q2H PRN Shortness Of Breath 05/03/22 [History Last Taken Unknown] amitriptyline 25 mg tablet 25 mg PO QHS DEPRESSION 05/03/22 [History Last Taken 05/02/22] atorvastatin 20 mg tablet 20 mg PO QHS CHOLESTEROL 05/03/22 [History Last Taken 05/02/22] calcium polycarbophil 625 mg tablet (FiberCon) 625 mg PO DAILY CONSTIPATION 05/03/22 [History Last Taken 05/03/22] cyclobenzaprine 10 mg tablet 10 mg PO TID MUSCLE SPASMS 05/03/22 [History Last Taken 05/03/22] dextrose 40 % oral gel (Glucose Gel) 10 g PO Q15M PRN HYPOGLYCEMIC EPISODE 05/03/22 [History Last Taken Unknown] ergocalciferol (vitamin D2) 1,250 mcg (50,000 unit) capsule (Vitamin D2) 1,250 mcg PO SA SUPPLEMENT 05/03/22 [History Last Taken 04/29/22] famotidine 20 mg tablet 20 mg PO BID GERD 05/03/22 [History Last Taken 05/03/22] fluticasone propionate 50 mcg/actuation nasal spray,suspension 2 spray intranasal BID NASAL CONGESTION 05/03/22 [History Last Taken 05/03/22] gabapentin 100 mg capsule 300 mg PO BID NERVE PAIN 05/03/22 [History Last Taken 05/03/22] guaifenesin 600 mg tablet, extended release 12 hr (Mucinex) 600 mg PO BID CONGESTION 05/03/22 [History Last Taken 05/03/22] hydroxyzine HCl 50 mg tablet 50 mg PO Q12H PRN Anxiety 05/03/22 [History Last Taken Unknown] lidocaine 4 % topical patch 1 patch topical DAILY PAIN 05/03/22 [History Last Taken 05/03/22] loperamide 2 mg tablet 2 mg PO Q6H PRN Diarrhea 05/03/22 [History Last Taken Unknown] losartan 50 mg tablet 50 mg PO DAILY BLOOD PRESSURE 05/03/22 [History Last Taken 05/03/22] methyl salicylate 15 %-menthol 10 % topical cream (Muscle Rub) 1 applic topical BID PRN LEFT SHOULDER PAIN 05/03/22 [History Last Taken 05/03/22] montelukast 10 mg tablet 10 mg PO DAILY ALLERGIES 05/03/22 [History Last Taken 05/03/22] omeprazole 20 mg tablet,delayed release 20 mg PO DAILY GERD 05/03/22 [History Last Taken 05/03/22] ondansetron 4 mg oral soluble film 4 mg PO Q8H PRN Nausea 05/03/22 [History Last Taken Unknown] roflumilast 500 mcg tablet (Daliresp) 500 mcg PO DAILY ASTHMA 05/03/22 [History Last Taken 05/03/22] sertraline 100 mg tablet (Zoloft) 100 mg PO QHS DEPRESSION 05/03/22 [History Last Taken 05/02/22] tiotropium bromide 2.5 mcg/actuation mist for inhalation (Spiriva Respimat) 2 puff inhalation QHS ASTHMA 05/03/22 [History Last Taken 05/02/22] cephalexin 500 mg capsule 500 mg PO TID #15 caps 05/05/22 [Rx Last Taken Unknown] dicyclomine 10 mg capsule 10 mg PO 4X/DAY #1 cap 05/05/22 [Rx Last Taken Unknown] menthol 0.44 %-zinc oxide 20.6 % topical ointment (Calmoseptine) 1 applic topical BID #0 grams 05/05/22 [Rx Last Taken Unknown] nystatin 100,000 unit/gram topical powder (Nyamyc) 1 applic topical TID #0 grams 05/05/22 [Rx Last Taken Unknown] sucralfate 1 gram tablet 1 g PO TID@0700,1100,1600 #0 tabs 05/05/22 [Rx Last Taken Unknown] Allergy/AdvReac Type Severity Reaction Status Date / Time aspirin Allergy Other Verified 05/14/22 09:43 black pepper [pepper] Allergy Other Verified 05/14/22 09:43 coconut Allergy Other Verified 05/14/22 09:43 codeine Allergy Other Verified 05/14/22 09:43 ibuprofen Allergy Other Verified 05/14/22 09:43 Influenza Virus Vaccines Allergy Other Verified 05/14/22 09:43 Penicillins Allergy Anaphylaxis Verified 05/14/22 09:43 rice Allergy Other Verified 05/14/22 09:43 tetanus and diphtheria Allergy Other Verified 05/14/22 09:43 toxoids Tetanus Vaccines and Toxoid Allergy Other Verified 05/14/22 09:43 Family History Other CAD (coronary artery disease) COPD (chronic obstructive pulmonary disease) Hypertension Social History housing: senior living Smoking Status: Former smoker alcohol intake: never substance use type: does not use ROS ROS Narrative Unable to obtain ROS secondary to mental status Vital Signs Vital Signs Vital Signs: 05/14/22 09:33 05/14/22 09:36 05/14/22 09:44 Temperature 97.2 F L 97.2 F L Temperature Source Temporal Temporal Pulse Rate 95 95 Respiratory Rate 18 20 H Respiratory Effort Normal Non-Labored Respiratory Depth Normal Respiratory Pattern Tachypnea Blood Pressure 93/48 L 93/48 L Blood Pressure Mean 63 63 Pulse Ox 87 92 Oxygen Delivery Method Nasal Cannula Nasal Cannula Oxygen Flow Rate (L/min) 4 4 05/14/22 09:41 05/14/22 09:54 05/14/22 10:36 Temperature 98 F Temperature Source Temporal Pulse Rate 94 61 Respiratory Rate 20 H 18 Respiratory Effort Respiratory Depth Respiratory Pattern Blood Pressure 110/84 H 87/56 L Blood Pressure Mean 92 66 Pulse Ox 92 98 Oxygen Delivery Method Nasal Cannula Nasal Cannula Nasal Cannula Oxygen Flow Rate (L/min) 5 05/14/22 11:53 05/14/22 12:09 Temperature 98 F Temperature Source Temporal Pulse Rate 80 81 Respiratory Rate 18 20 H Respiratory Effort Respiratory Depth Respiratory Pattern Blood Pressure 98/65 99/65 Blood Pressure Mean 76 76 Pulse Ox 96 96 Oxygen Delivery Method Nasal Cannula Nasal Cannula Oxygen Flow Rate (L/min) 4 Weight Weight: 176.6 kg Body Mass Index (BMI) 61.0 Results Lab / Micro Data Result Diagrams: 05/14/22 10:00 05/14/22 10:00 Labs: Laboratory Results - last 24 hr 05/14/22 10:00: WBC 12.7 H, RBC 3.90 L, Hgb 10.3 L, Hct 35.5 L, MCV 91.0, MCH 26.4 L, MCHC 29.0 L, RDW Std Deviation 45.2 H, RDW Coeff of David 13.6, Plt Count 265, MPV 11.8, Immature Gran % (Auto) 1.600 H, Neut % (Auto) 75.5 H, Lymph % (Auto) 16.4 L, [place] % (Auto) 6.1, Eos % (Auto) 0.2, Baso % (Auto) 0.2, Absolute Neuts (auto) 9.6 H, Absolute Lymphs (auto) 2.09, Nucleated RBC % 0 05/14/22 10:00: PT 12.9, INR 1.0, APTT 27.9 05/14/22 10:00: Sodium 139, Potassium 4.2, Chloride 89 L, Carbon Dioxide 42.0 H, Anion Gap 8, BUN 47 H, Creatinine 2.36 H, Estim Creat Clear Calc 24.65, Est GFR (MDRD) Af Amer 27 L, Est GFR (MDRD) Non-Af 22 L, BUN/Creatinine Ratio 19.9, Glucose 122 H, Calcium 9.6, Total Bilirubin 0.30, AST 8 L, ALT 10 L, Alkaline Phosphatase 82, Total Protein 7.5, Albumin 3.0 L, Globulin 4.5 H, Albumin/Globulin Ratio 0.7 L 05/14/22 10:00: Lactic Acid 1.6 05/14/22 11:13: Urine Color Yellow, Urine Clarity Clear, Urine pH 6.0, Ur Specific [place] 1.015, Urine Protein 30 H, Urine Glucose (UA) 100 H, Urine Ketones Negative, Urine Occult Blood Negative, Urine Nitrite Positive H, Urine Bilirubin Negative, Urine Urobilinogen Normal, Ur Leukocyte Esterase 100 H, Urine RBC 0 SEEN, Urine WBC 10-25 SEEN, Ur Squamous Epith Cells 0 SEEN, Urine Bacteria 2+, Urine Mucus 0 SEEN Radiology Impression Chest X-Ray 05/14/22 09:41 IMPRESSION: 1. Moderate consolidation is present in the right lower lobe and associated with a small pleural effusion. Pulmonary vascular congestion is seen throughout both lungs. There is slight right lung volume loss possibly due to atelectasis or chronic disease. Electronically Signed: Jaron Foreman MD at 11:35 EST Reading Location ID and State: [address] [place] [address] , Service support , Humerus X-Ray 05/14/22 09:57 IMPRESSION: 1. No visualized fracture of the humerus Electronically Signed: Jaron Foreman MD at 11:36 EST , Assessment & Plan Assessment/Plan (1) UTI (urinary tract infection): (2) Acute kidney injury: (3) Chronic respiratory failure with hypoxia: (4) COPD (chronic obstructive pulmonary disease): (5) MARISOL (obstructive sleep apnea): PLAN: Plan 61-year-old female with a history of MARISOL, COPD with chronic hypoxic respiratory failure on 4 L O2, morbid obesity, recent admission for UTI and hypotension he was discharged to SNF presented for low blood pressure and UTI. #Hypotension secondary to volume depletion -Recently had similar presentation and responded well to fluids -Does have ZONIA but suspect this is also secondary to volume depletion -No other signs of endorgan damage and lactic acid is within normal limits -Do not believe she is septic at this time -Last admission echo obtained and EF was within normal limits -Continue fluids -Hold all medications that may contribute to hypotension #Urinary tract infection -Urine and blood culture sent -Has risk for MDRO so we will put on Zosyn and vancomycin pending cultures -Fluids #Altered mental status -Patient tired, will obtain stat ABG to verify she is not retaining CO2 #Chronic hypoxic respiratory failure on 2 L home O2 secondary to obesity hypoventilation syndrome and COPD -Continue home O2 -ABG ordered -Albuterol as needed -BiPAP nightly and can add as needed #Hypertension -Hypotensive at this time, hold home medications #DVT ppx: Heparin subcu, SCDs Amaya Jacome MD Time spent in the patient's overall evaluation,decision-making process, review of diagnostic data, adjustment of management, discussion with other providers, nursing nursing and ancillary staff involved in patient's care documentation, 60 minutes Charges/Coding Visit Charges Inpatient E&M: 84906 Init Hosp L2
[2022-05-14 13:45] LABS: Blood Gas Specimen Type VEN; VBG BASE EXCESS 13 mmol/L (-1.0-3.5); VBG Bicarbonate 39 mmol/L (22-26); VBG PO2 37 mmHg (25-40); VBG SO2 65 % (50-70); VBG TCO2 41 mmol/L (23-33); VBG pCO2 67.5 mmHg (41-51); VBG pH 7.37 (7.32-7.42)
--- NOTE | 2022-05-14 15:01 | PCM.RX.CS ---
Consult Pharmacy has been consulted to manage selected antiobiotic: Vancomycin Type of Consult: New start Suspected Infection: Other Labs: Sodium 139 mmol/L (136-145) 05/14/22 10:00 Potassium 4.2 mmol/L (3.5-5.1) 05/14/22 10:00 Chloride 89 mmol/L (98-107) L 05/14/22 10:00 Carbon Dioxide 42.0 mmol/L (21.0-32.0) H 05/14/22 10:00 Anion Gap 8 (5-15) 05/14/22 10:00 BUN 47 mg/dL (7-18) H 05/14/22 10:00 Creatinine 2.36 mg/dL (0.55-1.02) H 05/14/22 10:00 Est GFR (MDRD) Af Amer 27 mL/min (>60) L 05/14/22 10:00 Est GFR (MDRD) Non-Af 22 mL/min (>60) L 05/14/22 10:00 BUN/Creatinine Ratio 19.9 RATIO (10-20) 05/14/22 10:00 Glucose 122 mg/dL (74-106) H 05/14/22 10:00 Goal Trough: 15-20 mcg/mL Pharmacy Plan for Drug Dosing: NEW START IV VANCOMYCIN Consulting Physician: Dr. Jacome Indication: UTI Goal Trough: 15-20 SrCr: 2.36 CrCl: 42 mL/min (using AdjBW) Comments: Patient ordered loading dose of 2g IV x1 administered 05/14/22 @1421 Vancomycin Dose: 1000mg IV Q12hr to start 05/15/22 @0200 Pending Level: 05/16/22 @0130, prior to 4th total dose of vancomycin per protocol. Pharmacy Service will continue to monitor and adjust dosing as required.
[2022-05-14] MEDS: Sucralfate 1 GM Tablet PO (18:05)
[2022-05-14] MEDS: Acetaminophen 325 MG Tablet 650 MG PO ×2 (18:06→21:48)
[2022-05-14] MEDS: Heparin Injection (Vial) 5,000 UNIT/ML VIAL 5000 UNIT SC ×2 (18:06→21:48)
[2022-05-14] MEDS: Dicyclomine 10 MG Capsule PO ×2 (18:06→21:48)
[2022-05-14] MEDS: Ipratropium 0.5 MG/2.5 ML SOLUTION INHALATION (21:30)
[2022-05-14] MEDS: 0.9% Normal Saline 1,000 ML 75 ML IV (21:32)
[2022-05-14] MEDS: Atorvastatin Calcium 20 MG Tablet PO (21:48)
--- NOTE | 2022-05-14 21:50 | CPS ---
Pt took off bipap mask, put o2 back on , nasal o2 at 4-5 LPM. She said it was hurting her face, RT will try to convince pt to try again later tonight.
[2022-05-14] MEDS: Sertraline 100 MG Tablet PO (22:26)
[2022-05-14] MEDS: Fluticasone 0.05% 1 SPRAY NASAL.SRY 2 SPRAY NASAL (22:29)
[2022-05-15] VITALS (10 sets, daily range): BP systolic 99–111; BP diastolic 49–58; PULSE 75–85; RESP 16–20; TEMP 36.5–36.6; O2SAT 92–97
[2022-05-15] MEDS: Vancomycin IV 1,000 MG/200 ML BAG 200 MG IV ×2 (01:50→14:39)
[2022-05-15] MEDS: Heparin Injection (Vial) 5,000 UNIT/ML VIAL 5000 UNIT SC ×3 (06:31→22:07)
[2022-05-15] MEDS: Acetaminophen 325 MG Tablet 650 MG PO ×3 (06:31→22:12)
[2022-05-15] MEDS: 0.9% Normal Saline 1,000 ML 150 ML IV ×3 (06:32→21:20)
[2022-05-15] MEDS: Sucralfate 1 GM Tablet PO ×3 (06:33→17:30)
[2022-05-15 06:47] LABS: Absolute Lymphocyte Count 2.06 X10^3/uL (0.83-4.51); Absolute Neutrophil Count 4.2 X10^3/uL (2.0-7.7); Basophil# 0.02 X10^3/uL; Basophil% 0.3 % (0-1); Eosinophil# 0.16 X10^3/uL; Eosinophils% 2.2 % (0-5); Hematocrit 33.6 % (37-47); Hemoglobin 9.9 g/dL (12.0-15.0); Lymphocyte # 2.06 X10^3/ul (0.83-4.51); Lymphocyte % 28.9 % (19-41); Mean Corp Hgb Conc 29.5 g/dL (32-36); Mean Corpuscular Volume 91.8 fL (81-99); Mean Platelet Vol. 11.3 fl (6.2-12.0); Monocyte# 0.63 X10^3/uL; Monocyte% 8.8 % (0-10); NRBC Flagged by Analyzer 0 % (0-5); Neutrophil # 4.16 X10^3/uL (2.7-7.7); Neutrophil % 58.5 % (47-70); Platelet Count 227 K/mm3 (150-450); RBC Distribution Width CV 13.6 % (11.6-14.6); RBC Distribution Width SD 45.8 fl (35.1-43.9); Red Blood Count 3.66 M/mm3 (4.2-5.4); White Blood Count 7.1 K/mm3 (4.4-11.0)
[2022-05-15] MEDS: Ipratropium 0.5 MG/2.5 ML SOLUTION INHALATION ×2 (07:06→13:18)
[2022-05-15 07:39] LABS: ALB/GLOB Ratio 0.6 RATIO (0.9-2.4); AST(SGOT) 10 U/L (15-37); Alanine Aminotransfer ALT/SGPT 9 U/L (13-56); Albumin, Serum 2.5 g/dL (3.2-5.0); Alkaline Phosphatase 70 U/L (45-117); Anion Gap 7 (5-15); BUN 37 mg/dL (7-18); BUN/Creat Ratio 28.5 RATIO (10-20); Calcium,Total 9.2 mg/dL (8.5-10.1); Chloride 97 mmol/L (98-107); EST Glomerular Filtration Rate 44 mL/min (>60); Est Glom Filt Rate - Afr Amer 54 mL/min (>60); Estimated Creatinine Clearance 43.08 ml/min; Globulin 4.1 g/dL (2.2-4.2); Glucose 101 mg/dL (74-106); Potassium 3.7 mmol/L (3.5-5.1); Protein, Total 6.6 g/dL (6.4-8.2); Sodium Level 141 mmol/L (136-145)
[2022-05-15 11:00] LABS: M R Staph aureus DNA By PCR Negative (Negative); Probe Check PASS; Specimen Processing Control PASS
[2022-05-15] MEDS: Dicyclomine 10 MG Capsule PO ×4 (11:04→22:08)
[2022-05-15] MEDS: Menthol/Lanolin/Calamine/Znox 113 GM Tube 1 APPLIC TOPICAL ×2 (11:04→22:07)
[2022-05-15] MEDS: Fluticasone 0.05% 1 SPRAY NASAL.SRY 2 SPRAY NASAL ×2 (11:05→22:07)
[2022-05-15] MEDS: Pantoprazole Sodium 20 MG Tablet PO (11:05)
[2022-05-15] MEDS: Famotidine 20 MG Tablet PO (11:05)
[2022-05-15] MEDS: Montelukast 10 MG Tablet PO (11:05)
--- NOTE | 2022-05-15 15:40 | PN.HOSP_ITS ---
Subjective Subjective Patient is a 61-year-old female with multiple comorbidities including morbid obesity with BMI of 61 admitted with hypotension. Diagnosed with acute cystitis admitted to monitored bed for further management Objective Data Objective Data Vital Signs: Vital Signs Temp Pulse Resp BP Pulse Ox O2 Del Method O2 Flow Rate 97.8 F 84 20 H 99/58 L 95 Nasal Cannula 4 05/15/22 10:59 05/15/22 13:18 05/15/22 13:18 05/15/22 10:59 05/15/22 14:00 05/15/22 14:00 05/15/22 14:00 FiO2 40 05/14/22 21:00 Oxygen Flow Rate (L/min) 4 Oxygen Delivery Method Nasal Cannula Weight: 173.3 kg Body Mass Index (BMI) 61.2 Intake & Output: Intake and Output for Last 24 Hours 05/13/22 05/14/22 05/15/22 23:59 23:59 23:59 Intake Total 2573.75 / 2573.75 2482.5 / 2482.5 Output Total 650 / 650 1450 / 1450 Balance 1923.75 / 1923.75 1032.5 / 1032.5 Lab / Micro Data Result Diagrams: 05/15/22 06:20 05/15/22 06:20 Labs: Laboratory Results - last 24 hr 05/14/22 18:15: MRSA (PCR) Negative 05/15/22 06:20: WBC 7.1, RBC 3.66 L, Hgb 9.9 L, Hct 33.6 L, MCV 91.8, MCH 27.0, MCHC 29.5 L, RDW Std Deviation 45.8 H, RDW Coeff of David 13.6, Plt Count 227, MPV 11.3, Immature Gran % (Auto) 1.300 H, Neut % (Auto) 58.5, Lymph % (Auto) 28.9, [place] % (Auto) 8.8, Eos % (Auto) 2.2, Baso % (Auto) 0.3, Absolute Neuts (auto) 4.2, Absolute Lymphs (auto) 2.06, Nucleated RBC % 0 05/15/22 06:20: Sodium 141, Potassium 3.7, Chloride 97 L, Carbon Dioxide 37.0 H, Anion Gap 7, BUN 37 H, Creatinine 1.30 H, Estim Creat Clear Calc 43.08, Est GFR (MDRD) Af Amer 54 L, Est GFR (MDRD) Non-Af 44 L, BUN/Creatinine Ratio 28.5 H, Glucose 101, Calcium 9.2, Total Bilirubin 0.20, AST 10 L, ALT 9 L, Alkaline Phosphatase 70, Total Protein 6.6, Albumin 2.5 L, Globulin 4.1, Albumin/Globulin Ratio 0.6 L, TSH 0.30 L Micro: Microbiology 05/14/22 11:13 Urine, Catheterized Urine Culture - Preliminary Proteus sp. Physical Exam Narrative GENERAL: cooperative HEENT: Atraumatic; normocephalic EYES; Anicteric, Normal Conjunctiva NECK; supple, normal thyroid, RESPIRATORY: Diminished to auscultation CARDIOVASCULAR: Regular S1 S2, GI: soft, normoactive bowel sounds, : No Renal angle tenderness; EXTREMITIES: No edema, no clubbing, MUSCULOSKELETAL: no muscle wasting NEURO: Awake; no lateralizing signs. SKIN: No Rash PSYCH; Flat affect Assessment & Plan Assessment/Plan (1) UTI (urinary tract infection): (2) Acute kidney injury: (3) Chronic respiratory failure with hypoxia: (4) COPD (chronic obstructive pulmonary disease): (5) MARISOL (obstructive sleep apnea): PLAN: Plan Patient is a 61-year-old female with multiple comorbidities including morbid obesity with BMI of 61 admitted with hypotension. Diagnosed with acute cystitis admitted to monitored bed for further management 1. Hypertension ? Attributed to volume depletion as evidenced by patient acute kidney injury management IV fluids with close monitoring of electrolyte 2. Acute cystitis ? Patient urine cultures so far positive for Proteus species final identification and sensitivities pending 3. Acute metabolic encephalopathy ? Due to a combination of medications as well as patient underlying infection and the suspected offending medications held on admission 4. Chronic hypoxic respiratory failure ? Due to obstructive sleep apnea as well as obesity hypoventilation syndrome patient is on baseline oxygen 5. Obesity hypoventilation syndrome ? Consistent use of BiPAP encouraged 6. COPD ? Currently not in exacerbation aerosol treatments as needed 7. Essential hypertension ? Patient presented with hypotension patient antihypertensives placed on hold 8. Class III obesity with BMI of 61.7 ? Weight loss advised 9. DVT prophylaxis ? SC heparin Time spent in the patient's overall evaluation,decision-making process, review of diagnostic data, adjustment of management, discussion with other providers, nursing nursing and ancillary staff involved in patient's care documentation, 55 minutes Charges/Coding Visit Charges Inpatient E&M: 24765 Subs Hosp L3 Reason for Visit Reason for Visit: Diagnoses Obstructive sleep apnea (adult) (pediatric) (05/14/22) Chronic obstructive pulmonary disease, unspecified (05/14/22) Chronic respiratory failure with hypoxia (05/14/22) Acute kidney failure, unspecified (05/14/22) Urinary tract infection, site not specified (05/14/22)
[2022-05-15] MEDS: 0.9% Saline Lock 10 ML Syringe IV (22:06)
[2022-05-15] MEDS: Sertraline 100 MG Tablet PO (22:08)
[2022-05-15] MEDS: Atorvastatin Calcium 20 MG Tablet PO (22:08)
[2022-05-16] VITALS (7 sets, daily range): BP systolic 100–118; BP diastolic 53–61; PULSE 78–85; RESP 16–18; TEMP 36.1–36.5; O2SAT 92–96
[2022-05-16] MEDS: Ipratropium 0.5 MG/2.5 ML SOLUTION INHALATION (00:38)
[2022-05-16] MEDS: Albuterol 2.5 MG/3 ML VIAL.NEB. INHALATION (00:38)
[2022-05-16 01:59] LABS: Vancomycin, Trough Level 23.5 ug/mL (5.0-15.0)
--- NOTE | 2022-05-16 02:18 | CPS ---
pt refuses bipap
--- NOTE | 2022-05-16 02:53 | PCM.RX.CS ---
Consult Pharmacy has been consulted to manage selected antiobiotic: Vancomycin Type of Consult: Follow-up Suspected Infection: Other Prior Doses of Antibiotics Received/Current Regimen: Medications Discontinued Medications Vancomycin HCl (Vancomycin) 1,000 mg in 200 mls @ 200 mls/hr IV Q12H MARY Last Admin: 05/15/22 15:52 Dose: Infused Labs: Sodium 141 mmol/L (136-145) 05/15/22 06:20 Potassium 3.7 mmol/L (3.5-5.1) 05/15/22 06:20 Chloride 97 mmol/L (98-107) L 05/15/22 06:20 Carbon Dioxide 37.0 mmol/L (21.0-32.0) H 05/15/22 06:20 Anion Gap 7 (5-15) 05/15/22 06:20 BUN 37 mg/dL (7-18) H 05/15/22 06:20 Creatinine 1.30 mg/dL (0.55-1.02) H 05/15/22 06:20 Est GFR (MDRD) Af Amer 54 mL/min (>60) L 05/15/22 06:20 Est GFR (MDRD) Non-Af 44 mL/min (>60) L 05/15/22 06:20 BUN/Creatinine Ratio 28.5 RATIO (10-20) H 05/15/22 06:20 Glucose 101 mg/dL (74-106) 05/15/22 06:20 Vancomycin Trough 23.5 ug/mL (5.0-15.0) H 05/16/22 01:18 Microbiology: Microbiology 05/14/22 11:13 Urine, Catheterized Urine Culture - Preliminary Proteus sp. Weight used for dosin.3 kg Estimated Creatinine Clearance: 76 Goal Trough: 15-20 mcg/mL Pharmacy Plan for Drug Dosing: Vancomycin trough level, drawn 10.6hrs post-dose was high at 23.5. This is above the target range of 15-20. Will hold the current dosing and draw another level in 12 hours. Further dosing will be determined from that result. Pharmacy Service will continue to monitor and adjust dosing as required. Follow-Up Labs: Trough Vancomycin - random Labs to be done on [date and time ordered]: 05/16/22 @1459
[2022-05-16] MEDS: 0.9% Normal Saline 1,000 ML 150 ML IV (06:36)
[2022-05-16] MEDS: Heparin Injection (Vial) 5,000 UNIT/ML VIAL 5000 UNIT SC (06:38)
[2022-05-16] MEDS: Acetaminophen 325 MG Tablet 650 MG PO (06:51)
[2022-05-16] MEDS: Sucralfate 1 GM Tablet PO ×2 (06:52→10:25)
[2022-05-16 10:07] LABS: Absolute Lymphocyte Count 1.83 X10^3/uL (0.83-4.51); Absolute Neutrophil Count 4.3 X10^3/uL (2.0-7.7); Basophil# 0.01 X10^3/uL; Basophil% 0.1 % (0-1); Eosinophil# 0.17 X10^3/uL; Eosinophils% 2.5 % (0-5); Hematocrit 32.2 % (37-47); Hemoglobin 9.4 g/dL (12.0-15.0); Lymphocyte # 1.83 X10^3/ul (0.83-4.51); Lymphocyte % 26.7 % (19-41); Mean Corp Hgb Conc 29.2 g/dL (32-36); Mean Corpuscular Hgb 26.7 pg (27.0-32.0); Mean Corpuscular Volume 91.5 fL (81-99); Mean Platelet Vol. 11.3 fl (6.2-12.0); Monocyte# 0.49 X10^3/uL; Monocyte% 7.2 % (0-10); NRBC Flagged by Analyzer 0.4 % (0-5); Neutrophil # 4.26 X10^3/uL (2.7-7.7); Neutrophil % 62.2 % (47-70); Platelet Count 243 K/mm3 (150-450); RBC Distribution Width CV 13.3 % (11.6-14.6); RBC Distribution Width SD 43.9 fl (35.1-43.9); Red Blood Count 3.52 M/mm3 (4.2-5.4); White Blood Count 6.9 K/mm3 (4.4-11.0)
[2022-05-16] MEDS: Ondansetron 4 MG/2 ML Vial IV (10:19)
[2022-05-16] MEDS: Menthol/Lanolin/Calamine/Znox 113 GM Tube 1 APPLIC TOPICAL (10:24)
[2022-05-16] MEDS: Montelukast 10 MG Tablet PO (10:24)
[2022-05-16] MEDS: Fluticasone 0.05% 1 SPRAY NASAL.SRY 2 SPRAY NASAL (10:24)
[2022-05-16] MEDS: Pantoprazole Sodium 20 MG Tablet PO (10:25)
[2022-05-16] MEDS: Famotidine 20 MG Tablet PO (10:25)
[2022-05-16] MEDS: Dicyclomine 10 MG Capsule PO (10:26)
--- NOTE | 2022-05-16 10:52 | PCM.CONS.GEN ---
Assessment & Plan Assessment/Plan (1) UTI (urinary tract infection): PLAN: Ucx with a resistant proteus. Has been on appropriate therapy with cefepime since 05/14. Encephalopathy rapidly resolved prior to receiving effective antibiotic therapy. UA did have only 10-25 wbc. ZONIA resolved. Cont cefepime while inpatient, would give single 3gm dose po fosfomycin prior to discharge. Will follow, thank you, d/w Dr. Pascual (2) Acute kidney injury: HPI Consult Data Date of Consult: 05/16/22 HPI Narrative Reason for Consultation: uti HPI Narrative: HE TRAYLOR, is a 61 F who presented 05/14 with hypotension and altered mental status from [facility]. Recent admit for ecoli uti, discharged 05/05 on keflex. Given ceftriaxone in ED here, found to have ZONIA and uti. Denies any urinary symptoms. Mental status improved rapidly. Has been on cefepime since 05/14. Feeling fine. Full ROS performed and neg except as noted above. Reports chronic diarrhea due to IBS, stools currently at baseline. 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 deficits Seasonal allergies TIA (transient ischemic attack) UTI (urinary tract infection) Vitamin D deficiency Home Medications acetaminophen 325 mg tablet 650 mg PO Q4H PRN Pain 05/03/22 [History Last Taken Unknown] acetaminophen 325 mg tablet 650 mg PO TID PAIN 05/03/22 [History Last Taken 05/03/22] albuterol sulfate 90 mcg/actuation aerosol inhaler 2 puff inhalation Q2H PRN Shortness Of Breath 05/03/22 [History Last Taken Unknown] amitriptyline 25 mg tablet 25 mg PO QHS DEPRESSION 05/03/22 [History Last Taken 05/02/22] atorvastatin 20 mg tablet 20 mg PO QHS CHOLESTEROL 05/03/22 [History Last Taken 05/02/22] calcium polycarbophil 625 mg tablet (FiberCon) 625 mg PO DAILY CONSTIPATION 05/03/22 [History Last Taken 05/03/22] cyclobenzaprine 10 mg tablet 10 mg PO TID MUSCLE SPASMS 05/03/22 [History Last Taken 05/03/22] dextrose 40 % oral gel (Glucose Gel) 10 g PO Q15M PRN HYPOGLYCEMIC EPISODE 05/03/22 [History Last Taken Unknown] ergocalciferol (vitamin D2) 1,250 mcg (50,000 unit) capsule (Vitamin D2) 1,250 mcg PO SA SUPPLEMENT 05/03/22 [History Last Taken 04/29/22] famotidine 20 mg tablet 20 mg PO BID GERD 05/03/22 [History Last Taken 05/03/22] fluticasone propionate 50 mcg/actuation nasal spray,suspension 2 spray intranasal BID NASAL CONGESTION 05/03/22 [History Last Taken 05/03/22] gabapentin 100 mg capsule 300 mg PO BID NERVE PAIN 05/03/22 [History Last Taken 05/03/22] guaifenesin 600 mg tablet, extended release 12 hr (Mucinex) 600 mg PO BID CONGESTION 05/03/22 [History Last Taken 05/03/22] hydroxyzine HCl 50 mg tablet 50 mg PO Q12H PRN Anxiety 05/03/22 [History Last Taken Unknown] lidocaine 4 % topical patch 1 patch topical DAILY PAIN 05/03/22 [History Last Taken 05/03/22] loperamide 2 mg tablet 2 mg PO Q6H PRN Diarrhea 05/03/22 [History Last Taken Unknown] losartan 50 mg tablet 50 mg PO DAILY BLOOD PRESSURE 05/03/22 [History Last Taken 05/03/22] methyl salicylate 15 %-menthol 10 % topical cream (Muscle Rub) 1 applic topical BID PRN LEFT SHOULDER PAIN 05/03/22 [History Last Taken 05/03/22] montelukast 10 mg tablet 10 mg PO DAILY ALLERGIES 05/03/22 [History Last Taken 05/03/22] omeprazole 20 mg tablet,delayed release 20 mg PO DAILY GERD 05/03/22 [History Last Taken 05/03/22] ondansetron 4 mg oral soluble film 4 mg PO Q8H PRN Nausea 05/03/22 [History Last Taken Unknown] roflumilast 500 mcg tablet (Daliresp) 500 mcg PO DAILY ASTHMA 05/03/22 [History Last Taken 05/03/22] sertraline 100 mg tablet (Zoloft) 100 mg PO QHS DEPRESSION 05/03/22 [History Last Taken 05/02/22] tiotropium bromide 2.5 mcg/actuation mist for inhalation (Spiriva Respimat) 2 puff inhalation QHS ASTHMA 05/03/22 [History Last Taken 05/02/22] dicyclomine 10 mg capsule 10 mg PO 4X/DAY #1 cap 05/05/22 [Rx Last Taken Unknown] sucralfate 1 gram tablet 1 g PO TID@0700,1100,1600 #0 tabs 05/05/22 [Rx Last Taken Unknown] cephalexin 500 mg capsule 500 mg PO TID Check with primary doctor 05/14/22 [History Last Taken Unknown] menthol 0.44 %-zinc oxide 20.6 % topical ointment (Calmoseptine) 1 applic topical BID Skin irritation 05/14/22 [History Last Taken Unknown] nystatin 100,000 unit/gram topical powder (Nyamyc) 1 applic topical TID affected areas 05/14/22 [History Last Taken Unknown] Allergy/AdvReac Type Severity Reaction Status Date / Time aspirin Allergy Other Verified 05/14/22 09:43 black pepper [pepper] Allergy Other Verified 05/14/22 09:43 coconut Allergy Other Verified 05/14/22 09:43 codeine Allergy Other Verified 05/14/22 09:43 ibuprofen Allergy Other Verified 05/14/22 09:43 Influenza Virus Vaccines Allergy Other Verified 05/14/22 09:43 Penicillins Allergy Anaphylaxis Verified 05/14/22 09:43 rice Allergy Other Verified 05/14/22 09:43 tetanus and diphtheria Allergy Other Verified 05/14/22 09:43 toxoids Tetanus Vaccines and Toxoid Allergy Other Verified 05/14/22 09:43 Family History Other CAD (coronary artery disease) COPD (chronic obstructive pulmonary disease) Hypertension Social History [facility] Smoking Status: Former smoker alcohol intake: never substance use type: does not use Physical Exam Const alert, oriented x3 and no apparent distress General Appearance: cooperative HEENT normocephalic and head/scalp atraumatic Eyes PERRL and EOMs intact bilaterally Neck supple and No nodes Resp normal air movement and clear to auscultation bilaterally Cardio regular rate and regular rhythm GI soft to palpation, non-tender and non-distended Extremity General Extremity: edema Skin no rashes or lesions noted Neuro CN's II-XII intact bilaterally Lab / Micro Data Attestation: I reviewed the patient's lab results. Result Diagrams: 05/16/22 09:42 05/15/22 06:20 Labs: Laboratory Results - last 24 hr 05/14/22 18:15: MRSA (PCR) Negative 05/16/22 01:18: Vancomycin Trough 23.5 H 05/16/22 09:42: WBC 6.9, RBC 3.52 L, Hgb 9.4 L, Hct 32.2 L, MCV 91.5, MCH 26.7 L, MCHC 29.2 L, RDW Std Deviation 43.9, RDW Coeff of David 13.3, Plt Count 243, MPV 11.3, Immature Gran % (Auto) 1.300 H, Neut % (Auto) 62.2, Lymph % (Auto) 26.7, [place] % (Auto) 7.2, Eos % (Auto) 2.5, Baso % (Auto) 0.1, Absolute Neuts (auto) 4.3, Absolute Lymphs (auto) 1.83, Nucleated RBC % 0.4 Micro: Microbiology 05/14/22 09:50 Blood Culture (Wb) - Left Forearm Blood Culture - Preliminary No growth in 48 hours. 05/14/22 10:00 Blood Culture (Wb) - Anticubital Left Blood Culture - Preliminary No growth in 48 hours. 05/14/22 11:13 Urine, Catheterized Urine Culture - Final Proteus mirabilis
--- NOTE | 2022-05-16 10:57 | CASEMGMT ---
Patient is from [facility]. SW met with patient. Introduced self and role at [facility]. SW asked patient if she plans to return to [facility] at discharge. Patient said that is her plan. Patient declined a list of facilities. SW sent updates to [facility] via [employer]. Sheeba GENAO
[2022-05-16 11:36] LABS: Anion Gap 7 (5-15); BUN 18 mg/dL (7-18); BUN/Creat Ratio 23.4 RATIO (10-20); Calcium,Total 9.5 mg/dL (8.5-10.1); Chloride 103 mmol/L (98-107); Creatinine, Serum 0.77 mg/dL (0.55-1.02); EST Glomerular Filtration Rate 81 mL/min (>60); Est Glom Filt Rate - Afr Amer 99 mL/min (>60); Estimated Creatinine Clearance 72.73 ml/min; Glucose 107 mg/dL (74-106); Magnesium 1.4 mg/dL (1.6-2.6); Potassium 3.6 mmol/L (3.5-5.1); Sodium Level 142 mmol/L (136-145)
--- NOTE | 2022-05-16 12:16 | PN.HOSP_ITS ---
Subjective Subjective Patient urine cultures resulted positive for Proteus mirabilis multidrug- resistant. Case discussed with infectious disease patient will receive fosfomycin 1 dose prior to discharge Objective Data Objective Data Vital Signs: Vital Signs Temp Pulse Resp BP Pulse Ox O2 Del Method O2 Flow Rate 97.7 F L 79 16 118/53 L 96 Nasal Cannula 4 05/16/22 10:14 05/16/22 10:14 05/16/22 10:14 05/16/22 10:14 05/16/22 10:14 05/16/22 10:30 05/16/22 10:30 FiO2 40 05/14/22 21:00 Oxygen Flow Rate (L/min) 4 Oxygen Delivery Method Nasal Cannula Weight: 173.3 kg Body Mass Index (BMI) 61.2 Intake & Output: Intake and Output for Last 24 Hours 05/14/22 05/15/22 05/16/22 23:59 23:59 23:59 Intake Total 2573.75 / 2573.75 4742.5 / 4742.5 1630 / 1630 Output Total 650 / 650 3150 / 3150 900 / 900 Balance 1923.75 / 1923.75 1592.5 / 1592.5 730 / 730 Lab / Micro Data Result Diagrams: 05/16/22 09:42 05/16/22 09:42 Labs: Laboratory Results - last 24 hr 05/16/22 01:18: Vancomycin Trough 23.5 H 05/16/22 09:42: WBC 6.9, RBC 3.52 L, Hgb 9.4 L, Hct 32.2 L, MCV 91.5, MCH 26.7 L , MCHC 29.2 L, RDW Std Deviation 43.9, RDW Coeff of Daivd 13.3, Plt Count 243, MPV 11.3, Immature Gran % (Auto) 1.300 H, Neut % (Auto) 62.2, Lymph % (Auto) 26.7, [place] % (Auto) 7.2, Eos % (Auto) 2.5, Baso % (Auto) 0.1, Absolute Neuts (auto) 4.3, Absolute Lymphs (auto) 1.83, Nucleated RBC % 0.4 05/16/22 09:42: Sodium 142, Potassium 3.6, Chloride 103, Carbon Dioxide 32.0, Anion Gap 7, BUN 18, Creatinine 0.77, Estim Creat Clear Calc 72.73, Est GFR (MDRD) Af Amer 99, Est GFR (MDRD) Non-Af 81, BUN/Creatinine Ratio 23.4 H, Glucose 107 H, Calcium 9.5, Magnesium 1.4 L Micro: Microbiology 05/14/22 09:50 Blood Culture (Wb) - Left Forearm Blood Culture - Preliminary No growth in 48 hours. 05/14/22 10:00 Blood Culture (Wb) - Anticubital Left Blood Culture - Preliminary No growth in 48 hours. 05/14/22 11:13 Urine, Catheterized Urine Culture - Final Proteus mirabilis Physical Exam Narrative GENERAL: cooperative HEENT: Atraumatic; normocephalic EYES; Anicteric, Normal Conjunctiva NECK; supple, normal thyroid, RESPIRATORY: Diminished to auscultation CARDIOVASCULAR: Regular S1 S2, GI: soft, normoactive bowel sounds, : No Renal angle tenderness; EXTREMITIES: No edema, no clubbing, MUSCULOSKELETAL: no muscle wasting NEURO: Awake; no lateralizing signs. SKIN: No Rash PSYCH; Flat affect Assessment & Plan Assessment/Plan (1) UTI (urinary tract infection): (2) Acute kidney injury: (3) Chronic respiratory failure with hypoxia: (4) COPD (chronic obstructive pulmonary disease): (5) MARISOL (obstructive sleep apnea): PLAN: Plan Patient is a 61-year-old female with multiple comorbidities including morbid obesity with BMI of 61 admitted with hypotension. Diagnosed with acute cystitis admitted to monitored bed for further management 1. Hypertension ? Attributed to volume depletion as evidenced by patient acute kidney injury management IV fluids with close monitoring of electrolyte 2. Acute cystitis with Proteus mirabilis ? Patient urine cultures so far positive for Proteus species final identification and sensitivities pending Patient urine cultures resulted positive for Proteus mirabilis multidrug- resistant. Case discussed with infectious disease patient will receive fos fomycin 1 dose prior to discharge 3. Acute metabolic encephalopathy ? Due to a combination of medications as well as patient underlying infection and the suspected offending medications held on admission 4. Chronic hypoxic respiratory failure ? Due to obstructive sleep apnea as well as obesity hypoventilation syndrome patient is on baseline oxygen 5. Obesity hypoventilation syndrome ? Consistent use of BiPAP encouraged 6. COPD ? Currently not in exacerbation aerosol treatments as needed 7. Essential hypertension ? Patient presented with hypotension patient antihypertensives placed on hold 8. Class III obesity with BMI of 61.7 ? Weight loss advised 9. DVT prophylaxis ? SC heparin Time spent in the patient's overall evaluation,decision-making process, review of diagnostic data, adjustment of management, discussion with other providers, nursing nursing and ancillary staff involved in patient's care documentation,40 minutes Charges/Coding Visit Charges Inpatient E&M: 30594 Subs Hosp L2 Reason for Visit Reason for Visit: Diagnoses Obstructive sleep apnea (adult) (pediatric) (05/14/22) Chronic obstructive pulmonary disease, unspecified (05/14/22) Chronic respiratory failure with hypoxia (05/14/22) Acute kidney failure, unspecified (05/14/22) Urinary tract infection, site not specified (05/14/22)
--- NOTE | 2022-05-16 12:17 | TREXTCAR_ITS ---
Diet Diet Order/Speech Therapy: 05/14/22 13:22 Diet: Cardiac - Heart Healthy Is pt able to select menu?: Yes Diet Comments: Untile mentation improves Wound(s) rt foot toe: Wound Type: scabbed Therapies Physical Therapy: Eval and Treat Occupational Therapy: Eval and Treat Problem/Diagnosis (1) UTI (urinary tract infection): Status: Acute Code(s): N39.0 - Urinary tract infection, site not specified (2) Acute kidney injury: Status: Acute Code(s): N17.9 - Acute kidney failure, unspecified (3) Chronic respiratory failure with hypoxia: Status: Chronic Code(s): J96.11 - Chronic respiratory failure with hypoxia (4) COPD (chronic obstructive pulmonary disease): Status: Chronic Code(s): J44.9 - Chronic obstructive pulmonary disease, unspecified (5) MARISOL (obstructive sleep apnea): Status: Acute Code(s): G47.33 - Obstructive sleep apnea (adult) (pediatric) Plan Patient is a 61-year-old female with multiple comorbidities including morbid obesity with BMI of 61 admitted with hypotension. Diagnosed with acute cystitis admitted to monitored bed for further management 1. Hypertension ? Attributed to volume depletion as evidenced by patient acute kidney injury management IV fluids with close monitoring of electrolyte 2. Acute cystitis with Proteus mirabilis ? Patient urine cultures so far positive for Proteus species final identification and sensitivities pending Patient urine cultures resulted positive for Proteus mirabilis multidrug- resistant. Case discussed with infectious disease patient will receive fosfomycin 1 dose prior to discharge 3. Acute metabolic encephalopathy ? Due to a combination of medications as well as patient underlying infection and the suspected offending medications held on admission 4. Chronic hypoxic respiratory failure ? Due to obstructive sleep apnea as well as obesity hypoventilation syndrome patient is on baseline oxygen 5. Obesity hypoventilation syndrome ? Consistent use of BiPAP encouraged 6. COPD ? Currently not in exacerbation aerosol treatments as needed 7. Essential hypertension ? Patient presented with hypotension patient antihypertensives placed on hold 8. Class III obesity with BMI of 61.7 ? Weight loss advised 9. DVT prophylaxis ? SC heparin Time spent in the patient's overall evaluation,decision-making process, review of diagnostic data, adjustment of management, discussion with other providers, nursing nursing and ancillary staff involved in patient's care documentation,40 minutes Allergies/Procedures Done in Hospital Allergies aspirin Allergy (Verified 05/14/22 09:43) Other black pepper [pepper] Allergy (Verified 05/14/22 09:43) Other coconut Allergy (Verified 05/14/22 09:43) Other codeine Allergy (Verified 05/14/22 09:43) Other ibuprofen Allergy (Verified 05/14/22 09:43) Other Influenza Virus Vaccines Allergy (Verified 05/14/22 09:43) Other Penicillins Allergy (Verified 05/14/22 09:43) Anaphylaxis rice Allergy (Verified 05/14/22 09:43) Other tetanus and diphtheria toxoids Allergy (Verified 05/14/22 09:43) Other Tetanus Vaccines and Toxoid Allergy (Verified 05/14/22 09:43) Other Type of Care/Length of Stay Estimated LOS: More Than 30 Days Type of Care Needed: Skilled Rehab Potential: Good Prognosis: Good Additional Orders/Day of Discharge Day of Discharge: 05/16/22 Dietary and Speech Recommendations Dietitian Recommendations/Changes: Continue cardiac diet as PO established; will limit calories as needed. Discharge Plan Admission Admit Date/Time: 05/14/22 12:20 Attending Provider: Ab Pascual Primary Care Provider: Sepideh Patterson Consulting Providers: Amaya Jacome ; Jayro Lorenzo Discharge Orders/Prescriptions Prescriptions: Continued losartan 50 mg Tablet 50 mg PO DAILY cyclobenzaprine 10 mg Tablet 10 mg PO TID acetaminophen 325 mg Tablet 650 mg PO Q4H PRN (Reason: Pain) acetaminophen 325 mg Tablet 650 mg PO TID atorvastatin 20 mg Tablet 20 mg PO QHS lidocaine 4 % Adhesive Patch,Medicated 1 patch TOPICAL DAILY dextrose [Glucose Gel] 40 % Gel 10 g PO Q15M PRN (Reason: HYPOGLYCEMIC EPISODE) sertraline [Zoloft] 100 mg Tablet 100 mg PO QHS loperamide 2 mg Tablet 2 mg PO Q6H PRN (Reason: Diarrhea) hydroxyzine HCl 50 mg Tablet 50 mg PO Q12H PRN (Reason: Anxiety) famotidine 20 mg Tablet 20 mg PO BID amitriptyline 25 mg Tablet 25 mg PO QHS calcium polycarbophil [FiberCon] 625 mg Tablet 625 mg PO DAILY montelukast 10 mg Tablet 10 mg PO DAILY gabapentin 100 mg Capsule 300 mg PO BID ergocalciferol (vitamin D2) [Vitamin D2] 1,250 mcg (50,000 unit) Capsule 1,250 mcg PO SA albuterol sulfate 90 mcg/actuation Hfa Aerosol Inhaler 2 puff INHALATION Q2H PRN (Reason: Shortness Of Breath) fluticasone propionate 50 mcg/actuation [place],Suspension 2 spray INTRANASAL BID Muscle Rub 15-10 % Cream 1 applic TOPICAL BID PRN (Reason: LEFT SHOULDER PAIN) omeprazole 20 mg Tablet,Delayed Release (Dr/Ec) 20 mg PO DAILY ondansetron 4 mg Film 4 mg PO Q8H PRN (Reason: Nausea) roflumilast [Daliresp] 500 mcg Tablet 500 mcg PO DAILY Spiriva Respimat 2.5 mcg/actuation Mist 2 puff INHALATION QHS guaifenesin [Mucinex] 600 mg Tablet Extended Release 12hr 600 mg PO BID sucralfate 1 gram Tablet 1 g PO TID@0700,1100,1600 Qty: 0 0RF dicyclomine 10 mg Capsule 10 mg PO 4X/DAY Qty: 1 0RF nystatin [Nyamyc] 100,000 unit/gram powder 1 applic topical TID Protocol: *Topical Application Instructions APPLICATION INSTRUCTIONS: affected areas menthol-zinc oxide [Calmoseptine] 0.44-20.6 % ointment 1 applic topical BID Protocol: *Topical Application Instructions APPLICATION INSTRUCTIONS: affected areas Discontinued cephalexin 500 mg capsule 500 mg PO TID Rx Instructions: start on 05/06/22 Referrals / Follow Up: Sepideh Patterson MD [Primary Care Provider] - Disposition Disposition (needs filled in before D/C Order can be placed): Long-Term Facility
--- NOTE | 2022-05-16 12:24 | DS.PCM_ITS ---
Providers Date of Admission: 05/14/22 Date of Discharge: 05/16/22 Primary Care Physician: Dr. Sepideh Patterson MD Consultations 05/16/22 08:44 Consult: Infectious Disease Routine Consulting Provider: Jayro Lorenzo Reason for Consult: mdro uti EMERGENT Consult: No MD Notified: Yes Date Notified: 05/16/22 Time Notified: 09:18 Method of Notification: Answering Service Reason For Visit: HYPOTENSION AND UTI Diagnosis Discharge Diagnosis (1) UTI (urinary tract infection): Status: Acute Code(s): N39.0 - Urinary tract infection, site not specified (2) Acute kidney injury: Status: Acute Code(s): N17.9 - Acute kidney failure, unspecified (3) Chronic respiratory failure with hypoxia: Status: Chronic Code(s): J96.11 - Chronic respiratory failure with hypoxia (4) COPD (chronic obstructive pulmonary disease): Status: Chronic Code(s): J44.9 - Chronic obstructive pulmonary disease, unspecified (5) MARISOL (obstructive sleep apnea): Status: Acute Code(s): G47.33 - Obstructive sleep apnea (adult) (pediatric) Plan Patient is a 61-year-old female with multiple comorbidities including morbid obesity with BMI of 61 admitted with hypotension. Diagnosed with acute cystitis admitted to monitored bed for further management 1. Hypertension ? Attributed to volume depletion as evidenced by patient acute kidney injury management IV fluids with close monitoring of electrolyte 2. Acute cystitis with Proteus mirabilis ? Patient urine cultures so far positive for Proteus species final identification and sensitivities pending Patient urine cultures resulted positive for Proteus mirabilis multidrug- resistant. Case discussed with infectious disease patient will receive fosfomycin 1 dose prior to discharge 3. Acute metabolic encephalopathy ? Due to a combination of medications as well as patient underlying infection and the suspected offending medications held on admission 4. Chronic hypoxic respiratory failure ? Due to obstructive sleep apnea as well as obesity hypoventilation syndrome patient is on baseline oxygen 5. Obesity hypoventilation syndrome ? Consistent use of BiPAP encouraged 6. COPD ? Currently not in exacerbation aerosol treatments as needed 7. Essential hypertension ? Patient presented with hypotension patient antihypertensives placed on hold 8. Class III obesity with BMI of 61.7 ? Weight loss advised 9. DVT prophylaxis ? SC heparin Time spent in the patient's overall evaluation,decision-making process, review of diagnostic data, adjustment of management, discussion with other providers, nursing nursing and ancillary staff involved in patient's care documentation,40 minutes Medications at Discharge Home Medications acetaminophen 325 mg tablet 650 mg PO Q4H PRN Pain 05/03/22 acetaminophen 325 mg tablet 650 mg PO TID PAIN 05/03/22 albuterol sulfate 90 mcg/actuation aerosol inhaler 2 puff inhalation Q2H PRN Shortness Of Breath 05/03/22 amitriptyline 25 mg tablet 25 mg PO QHS DEPRESSION 05/03/22 atorvastatin 20 mg tablet 20 mg PO QHS CHOLESTEROL 05/03/22 calcium polycarbophil 625 mg tablet (FiberCon) 625 mg PO DAILY CONSTIPATION 05/03/22 cyclobenzaprine 10 mg tablet 10 mg PO TID MUSCLE SPASMS 05/03/22 dextrose 40 % oral gel (Glucose Gel) 10 g PO Q15M PRN HYPOGLYCEMIC EPISODE 05/03/22 ergocalciferol (vitamin D2) 1,250 mcg (50,000 unit) capsule (Vitamin D2) 1,250 mcg PO SA SUPPLEMENT 05/03/22 famotidine 20 mg tablet 20 mg PO BID GERD 05/03/22 fluticasone propionate 50 mcg/actuation nasal spray,suspension 2 spray intranasal BID NASAL CONGESTION 05/03/22 gabapentin 100 mg capsule 300 mg PO BID NERVE PAIN 05/03/22 guaifenesin 600 mg tablet, extended release 12 hr (Mucinex) 600 mg PO BID CONGESTION 05/03/22 hydroxyzine HCl 50 mg tablet 50 mg PO Q12H PRN Anxiety 05/03/22 lidocaine 4 % topical patch 1 patch topical DAILY PAIN 05/03/22 loperamide 2 mg tablet 2 mg PO Q6H PRN Diarrhea 05/03/22 losartan 50 mg tablet 50 mg PO DAILY BLOOD PRESSURE 05/03/22 methyl salicylate 15 %-menthol 10 % topical cream (Muscle Rub) 1 applic topical BID PRN LEFT SHOULDER PAIN 05/03/22 montelukast 10 mg tablet 10 mg PO DAILY ALLERGIES 05/03/22 omeprazole 20 mg tablet,delayed release 20 mg PO DAILY GERD 05/03/22 ondansetron 4 mg oral soluble film 4 mg PO Q8H PRN Nausea 05/03/22 roflumilast 500 mcg tablet (Daliresp) 500 mcg PO DAILY ASTHMA 05/03/22 sertraline 100 mg tablet (Zoloft) 100 mg PO QHS DEPRESSION 05/03/22 tiotropium bromide 2.5 mcg/actuation mist for inhalation (Spiriva Respimat) 2 puff inhalation QHS ASTHMA 05/03/22 dicyclomine 10 mg capsule 10 mg PO 4X/DAY #1 cap 05/05/22 sucralfate 1 gram tablet 1 g PO TID@0700,1100,1600 #0 tabs 05/05/22 menthol 0.44 %-zinc oxide 20.6 % topical ointment (Calmoseptine) 1 applic topical BID Skin irritation 05/14/22 nystatin 100,000 unit/gram topical powder (Nyamyc) 1 applic topical TID affected areas 05/14/22 Hospital Course Summary of Care Provided Minutes Spent on Discharge: 40 Physical Exam Narrative GENERAL: cooperative HEENT: Atraumatic; normocephalic EYES; Anicteric, Normal Conjunctiva NECK; supple, normal thyroid, RESPIRATORY: Diminished to auscultation CARDIOVASCULAR: Regular S1 S2, GI: soft, normoactive bowel sounds, : No Renal angle tenderness; EXTREMITIES: No edema, no clubbing, MUSCULOSKELETAL: no muscle wasting NEURO: Awake; no lateralizing signs. SKIN: No Rash PSYCH; Flat affect Weight / BMI Weight Weight: 173.3 kg Body Mass Index (BMI) 61.2 ABG / Lab / Microbiology Data Result Diagrams: 05/16/22 09:42 05/16/22 09:42 Laboratory: Laboratory Results - last 24 hr 05/16/22 01:18: Vancomycin Trough 23.5 H 05/16/22 09:42: WBC 6.9, RBC 3.52 L, Hgb 9.4 L, Hct 32.2 L, MCV 91.5, MCH 26.7 L , MCHC 29.2 L, RDW Std Deviation 43.9, RDW Coeff of David 13.3, Plt Count 243, MPV 11.3, Immature Gran % (Auto) 1.300 H, Neut % (Auto) 62.2, Lymph % (Auto) 26.7, Redwood % (Auto) 7.2, Eos % (Auto) 2.5, Baso % (Auto) 0.1, Absolute Neuts (auto) 4.3, Absolute Lymphs (auto) 1.83, Nucleated RBC % 0.4 05/16/22 09:42: Sodium 142, Potassium 3.6, Chloride 103, Carbon Dioxide 32.0, Anion Gap 7, BUN 18, Creatinine 0.77, Estim Creat Clear Calc 72.73, Est GFR (MDRD) Af Amer 99, Est GFR (MDRD) Non-Af 81, BUN/Creatinine Ratio 23.4 H, Gluc ose 107 H, Calcium 9.5, Magnesium 1.4 L Microbiology: Microbiology 05/14/22 09:50 Blood Culture (Wb) - Left Forearm Blood Culture - Preliminary No growth in 48 hours. 05/14/22 10:00 Blood Culture (Wb) - Anticubital Left Blood Culture - Preliminary No growth in 48 hours. 05/14/22 11:13 Urine, Catheterized Urine Culture - Final Proteus mirabilis D/C Instructions Discharge Diet: No restrictions Discharge Activity: Return to Normal Activity Call your doctor if you observe: Fever of 101 or Higher, Shortness of breath, Fainting spells and Chest pain Meaningful Use Info Meaningful Use Diagnoses (Choose all that apply): None applicable Discharge Plan Admission Admit Date/Time: 05/14/22 12:20 Attending Provider: Ab Pascual Primary Care Provider: Sepideh Patterson Consulting Providers: Amaya Jacome ; Jayro Lorenzo Discharge Orders/Prescriptions Prescriptions: Continued losartan 50 mg Tablet 50 mg PO DAILY cyclobenzaprine 10 mg Tablet 10 mg PO TID acetaminophen 325 mg Tablet 650 mg PO Q4H PRN (Reason: Pain) acetaminophen 325 mg Tablet 650 mg PO TID atorvastatin 20 mg Tablet 20 mg PO QHS lidocaine 4 % Adhesive Patch,Medicated 1 patch TOPICAL DAILY dextrose [Glucose Gel] 40 % Gel 10 g PO Q15M PRN (Reason: HYPOGLYCEMIC EPISODE) sertraline [Zoloft] 100 mg Tablet 100 mg PO QHS loperamide 2 mg Tablet 2 mg PO Q6H PRN (Reason: Diarrhea) hydroxyzine HCl 50 mg Tablet 50 mg PO Q12H PRN (Reason: Anxiety) famotidine 20 mg Tablet 20 mg PO BID amitriptyline 25 mg Tablet 25 mg PO QHS calcium polycarbophil [FiberCon] 625 mg Tablet 625 mg PO DAILY montelukast 10 mg Tablet 10 mg PO DAILY gabapentin 100 mg Capsule 300 mg PO BID ergocalciferol (vitamin D2) [Vitamin D2] 1,250 mcg (50,000 unit) Capsule 1,250 mcg PO SA albuterol sulfate 90 mcg/actuation Hfa Aerosol Inhaler 2 puff INHALATION Q2H PRN (Reason: Shortness Of Breath) fluticasone propionate 50 mcg/actuation [place],Suspension 2 spray INTRANASAL BID Muscle Rub 15-10 % Cream 1 applic TOPICAL BID PRN (Reason: LEFT SHOULDER PAIN) omeprazole 20 mg Tablet,Delayed Release (Dr/Ec) 20 mg PO DAILY ondansetron 4 mg Film 4 mg PO Q8H PRN (Reason: Nausea) roflumilast [Daliresp] 500 mcg Tablet 500 mcg PO DAILY Spiriva Respimat 2.5 mcg/actuation Mist 2 puff INHALATION QHS guaifenesin [Mucinex] 600 mg Tablet Extended Release 12hr 600 mg PO BID sucralfate 1 gram Tablet 1 g PO TID@0700,1100,1600 Qty: 0 0RF dicyclomine 10 mg Capsule 10 mg PO 4X/DAY Qty: 1 0RF nystatin [Nyamyc] 100,000 unit/gram powder 1 applic topical TID Protocol: *Topical Application Instructions APPLICATION INSTRUCTIONS: affected areas menthol-zinc oxide [Calmoseptine] 0.44-20.6 % ointment 1 applic topical BID Protocol: *Topical Application Instructions APPLICATION INSTRUCTIONS: affected areas Discontinued cephalexin 500 mg capsule 500 mg PO TID Rx Instructions: start on 05/06/22 Referrals / Follow Up: Sepideh Patterson MD [Primary Care Provider] - Disposition Disposition (needs filled in before D/C Order can be placed): [facility] Facility Charges/Coding Visit Charges Inpatient E&M: 35564 Disch Hosp >30min
--- NOTE | 2022-05-16 13:31 | PHA.DC.MR ---
Pharmacy Service has performed discharge medication reconciliation for this patient. The patient's discharge medication list was reviewed for discrepancies and discrepancies were resolved. Home Medications acetaminophen 325 mg tablet 650 mg PO Q4H PRN Pain 05/03/22 acetaminophen 325 mg tablet 650 mg PO TID PAIN 05/03/22 albuterol sulfate 90 mcg/actuation aerosol inhaler 2 puff inhalation Q2H PRN Shortness Of Breath 05/03/22 amitriptyline 25 mg tablet 25 mg PO QHS DEPRESSION 05/03/22 atorvastatin 20 mg tablet 20 mg PO QHS CHOLESTEROL 05/03/22 calcium polycarbophil 625 mg tablet (FiberCon) 625 mg PO DAILY CONSTIPATION 05/03/22 cyclobenzaprine 10 mg tablet 10 mg PO TID MUSCLE SPASMS 05/03/22 dextrose 40 % oral gel (Glucose Gel) 10 g PO Q15M PRN HYPOGLYCEMIC EPISODE 05/03/22 ergocalciferol (vitamin D2) 1,250 mcg (50,000 unit) capsule (Vitamin D2) 1,250 mcg PO SA SUPPLEMENT 05/03/22 famotidine 20 mg tablet 20 mg PO BID GERD 05/03/22 fluticasone propionate 50 mcg/actuation nasal spray,suspension 2 spray intranasal BID NASAL CONGESTION 05/03/22 gabapentin 100 mg capsule 300 mg PO BID NERVE PAIN 05/03/22 guaifenesin 600 mg tablet, extended release 12 hr (Mucinex) 600 mg PO BID CONGESTION 05/03/22 hydroxyzine HCl 50 mg tablet 50 mg PO Q12H PRN Anxiety 05/03/22 lidocaine 4 % topical patch 1 patch topical DAILY PAIN 05/03/22 loperamide 2 mg tablet 2 mg PO Q6H PRN Diarrhea 05/03/22 losartan 50 mg tablet 50 mg PO DAILY BLOOD PRESSURE 05/03/22 methyl salicylate 15 %-menthol 10 % topical cream (Muscle Rub) 1 applic topical BID PRN LEFT SHOULDER PAIN 05/03/22 montelukast 10 mg tablet 10 mg PO DAILY ALLERGIES 05/03/22 omeprazole 20 mg tablet,delayed release 20 mg PO DAILY GERD 05/03/22 ondansetron 4 mg oral soluble film 4 mg PO Q8H PRN Nausea 05/03/22 roflumilast 500 mcg tablet (Daliresp) 500 mcg PO DAILY ASTHMA 05/03/22 sertraline 100 mg tablet (Zoloft) 100 mg PO QHS DEPRESSION 05/03/22 tiotropium bromide 2.5 mcg/actuation mist for inhalation (Spiriva Respimat) 2 puff inhalation QHS ASTHMA 05/03/22 dicyclomine 10 mg capsule 10 mg PO 4X/DAY #1 cap 05/05/22 sucralfate 1 gram tablet 1 g PO TID@0700,1100,1600 #0 tabs 05/05/22 menthol 0.44 %-zinc oxide 20.6 % topical ointment (Calmoseptine) 1 applic topical BID Skin irritation 05/14/22 nystatin 100,000 unit/gram topical powder (Nyamyc) 1 applic topical TID affected areas 05/14/22
--- NOTE | 2022-05-16 14:20 | CASEMGMT ---
Patient is ready for discharge back to [facility]. LENCHO sent orders to [facility] via [facility]. SW arranged for patient to get picked up at via cot. SW notified RN, psychiatric secretary, and Yasmin at [facility]. Plan: d/c back to [facility] under intermediate level of care. Physicians transported via cot. Sheeba GENAO
[2022-05-16] MEDS: FOSFOMYCIN TROMETHAMINE 3 GM PACKET PO (14:42)
--- NOTE | 2022-05-16 15:03 | NURSING ---
Called report to ARIC Perez 2 [facility]
== END 2022-05-16 14:56 | disposition skilled nursing facility (03) | DRG 640 ==
LOC: ED 11:55 → PCU 12:27
PROVIDERS: Admitting Provider Internal Medicine; Emergency Provider Emergency Medicine; PCP Internal Medicine; Visit Provider Internal Medicine
DX: E86.9 Volume depletion, unspecified (principal); G93.41 Metabolic encephalopathy; J96.11 Chronic respiratory failure with hypoxia; E66.2 Morbid (severe) obesity with alveolar hypoventilation; N17.9 Acute kidney failure, unspecified; Z68.44 Body mass index [BMI] 60.0-69.9, adult; N30.00 Acute cystitis without hematuria; J44.9 Chronic obstructive pulmonary disease, unspecified; E78.5 Hyperlipidemia, unspecified; M79.7 Fibromyalgia; I10 Essential (primary) hypertension; Z87.891 Personal history of nicotine dependence; B96.4 Proteus (mirabilis) (morganii) as the cause of diseases classified elsewhere; Z86.73 Personal history of transient ischemic attack (TIA), and cerebral infarction without residual deficits
CPT/HCPCS: 36415; 71045; 73060; 80048; 80053; 80202; 81001; 82803; 83605; 83735; 84443; 85025; 85610; 85730; 87040; 87077; 87086; 87088; 87186; 87493; 87641; 93005; 94002; 94640; 94668; 94762; 97162; 97166; 97802; 99252; 99285; J7030; J7040; A4216; G0463; J2405

== ENCOUNTER → 2022-05-19 | Outpatient (REF) | payer MEDICARE, MEDICAID, SELFPAY ==
[2022-05-19 09:35] LABS: Absolute Lymphocyte Count 2.52 X10^3/uL (0.83-4.51); Absolute Neutrophil Count 5.6 X10^3/uL (2.0-7.7); Basophil# 0.03 X10^3/uL; Basophil% 0.3 % (0-1); Eosinophil# 0.23 X10^3/uL; Eosinophils% 2.5 % (0-5); Hematocrit 33.8 % (37-47); Hemoglobin 10.2 g/dL (12.0-15.0); Lymphocyte # 2.52 X10^3/ul (0.83-4.51); Lymphocyte % 27.4 % (19-41); Mean Corp Hgb Conc 30.2 g/dL (32-36); Mean Corpuscular Hgb 27.4 pg (27.0-32.0); Mean Corpuscular Volume 90.9 fL (81-99); Mean Platelet Vol. 11.4 fl (6.2-12.0); Monocyte% 7.6 % (0-10); NRBC Flagged by Analyzer 0 % (0-5); Neutrophil % 60.9 % (47-70); Platelet Count 240 K/mm3 (150-450); RBC Distribution Width SD 45.8 fl (35.1-43.9); Red Blood Count 3.72 M/mm3 (4.2-5.4); White Blood Count 9.2 K/mm3 (4.4-11.0)
[2022-05-19 09:49] LABS: Anion Gap 5 (5-15); BUN 15 mg/dL (7-18); BUN/Creat Ratio 23.4 RATIO (10-20); Calcium,Total 9.7 mg/dL (8.5-10.1); Chloride 97 mmol/L (98-107); Creatinine, Serum 0.64 mg/dL (0.55-1.02); EST Glomerular Filtration Rate 100 mL/min (>60); Est Glom Filt Rate - Afr Amer 121 mL/min (>60); Glucose 109 mg/dL (74-106); Potassium 3.2 mmol/L (3.5-5.1); Sodium Level 140 mmol/L (136-145)
== END | disposition home or self-care (01) ==
LOC: OLS.SW 05:00
PROVIDERS: PCP Internal Medicine; Visit Provider Internal Medicine
DX: I50.9 Heart failure, unspecified (principal)
CPT/HCPCS: 36415; 80048; 85025

== ENCOUNTER → 2022-05-26 | Outpatient (REF) | payer MEDICARE, MEDICAID, SELFPAY ==
[2022-05-26 08:27] LABS: Absolute Lymphocyte Count 2.42 X10^3/uL (0.83-4.51); Absolute Neutrophil Count 12.1 X10^3/uL (2.0-7.7); Basophil# 0.03 X10^3/uL; Basophil% 0.2 % (0-1); Eosinophil# 0.29 X10^3/uL; Eosinophils% 1.8 % (0-5); Hematocrit 33.1 % (37-47); Hemoglobin 9.8 g/dL (12.0-15.0); Lymphocyte # 2.42 X10^3/ul (0.83-4.51); Mean Corp Hgb Conc 29.6 g/dL (32-36); Mean Corpuscular Hgb 27.5 pg (27.0-32.0); Mean Corpuscular Volume 92.7 fL (81-99); Mean Platelet Vol. 11.6 fl (6.2-12.0); Monocyte# 1.11 X10^3/uL; Monocyte% 6.9 % (0-10); NRBC Flagged by Analyzer 0 % (0-5); Neutrophil % 75.3 % (47-70); Platelet Count 241 K/mm3 (150-450); RBC Distribution Width CV 13.8 % (11.6-14.6); RBC Distribution Width SD 46.4 fl (35.1-43.9); Red Blood Count 3.57 M/mm3 (4.2-5.4); White Blood Count 16.1 K/mm3 (4.4-11.0)
[2022-05-26 08:28] LABS: Anion Gap 2 (5-15); BUN 20 mg/dL (7-18); BUN/Creat Ratio 22.4 RATIO (10-20); Calcium,Total 9.3 mg/dL (8.5-10.1); Chloride 97 mmol/L (98-107); Creatinine, Serum 0.89 mg/dL (0.55-1.02); EST Glomerular Filtration Rate 69 mL/min (>60); Est Glom Filt Rate - Afr Amer 83 mL/min (>60); Glucose 118 mg/dL (74-106); Potassium 4.1 mmol/L (3.5-5.1); Sodium Level 137 mmol/L (136-145)
== END ==
LOC: OLS.SW 05:00
PROVIDERS: PCP Internal Medicine; Visit Provider Internal Medicine
DX: R68.89 Other general symptoms and signs (principal); Z13.228 Encounter for screening for other metabolic disorders; Z79.899 Other long term (current) drug therapy
CPT/HCPCS: 36415; 80048; 85025

== ENCOUNTER 2022-05-28 11:08 | Inpatient (IN) | payer MEDICARE, MEDICAID, SELFPAY ==
[2022-05-28] VITALS (24 sets, daily range): BP systolic 91–159; BP diastolic 41–127; PULSE 89–100; RESP 12–28; TEMP 36–37.5; O2SAT 82–100; BMI 28.3; BMI 57.9
--- NOTE | 2022-05-28 11:32 | EKG12_ITS ---
Test Reason : SOB Blood Pressure : / mmHG Vent. Rate : 100 BPM Atrial Rate : 100 BPM P-R Int : 170 ms QRS Dur : 132 ms QT Int : 340 ms P-R-T Axes : 057 060 035 degrees QTc Int : 438 ms Normal sinus rhythm Right bundle branch block Septal infarct , age undetermined Possible Lateral infarct , age undetermined Abnormal ECG Confirmed by DOMINICK VILALR, AMITA ([id number]), legal editor CHACHA REID [id number]) on 05/29/2022 1:38:52 PM Referred By: Confirmed By:AMITA TAN MD
[2022-05-28 11:47] LABS: Absolute Lymphocyte Count 2.16 X10^3/uL (0.83-4.51); Absolute Neutrophil Count 11.2 X10^3/uL (2.0-7.7); Basophil# 0.03 X10^3/uL; Basophil% 0.2 % (0-1); Eosinophil# 0.17 X10^3/uL; Eosinophils% 1.1 % (0-5); Hematocrit 33.9 % (37-47); Hemoglobin 9.8 g/dL (12.0-15.0); Lymphocyte # 2.16 X10^3/ul (0.83-4.51); Lymphocyte % 14.5 % (19-41); Mean Corp Hgb Conc 28.9 g/dL (32-36); Mean Corpuscular Hgb 26.6 pg (27.0-32.0); Mean Corpuscular Volume 92.1 fL (81-99); Mean Platelet Vol. 11.4 fl (6.2-12.0); Monocyte# 1.17 X10^3/uL; Monocyte% 7.9 % (0-10); NRBC Flagged by Analyzer 0 % (0-5); Neutrophil # 11.22 X10^3/uL (2.7-7.7); Neutrophil % 75.4 % (47-70); Platelet Count 287 K/mm3 (150-450); RBC Distribution Width CV 13.9 % (11.6-14.6); RBC Distribution Width SD 47.3 fl (35.1-43.9); Red Blood Count 3.68 M/mm3 (4.2-5.4); White Blood Count 14.9 K/mm3 (4.4-11.0)
[2022-05-28 11:54] LABS: Lactic Acid 0.6 mmol/L (0.4-1.9)
--- NOTE | 2022-05-28 11:58 | ED.VIS.DYS ---
HPI History of Present Illness Chief Complaint: Shortness of Breath Informant: patient and SNF Onset/Context/Timing Onset: Today Context: sudden Timing: Continuous Quality: Positive for Dyspnea on exertion Worsened by: Exertion Relieved by: Nothing Associated Symptoms Negative for cough, rhinorrhea, post nasal drip, fever, chills or sweats Chest Pain: Positive for None Narrative Narrative: Patient presents with shortness of breath that began today. Patient states she woke up feeling short of breath. Staff at the senior living where she lives noted that her pulse ox was low on her normal 2.5 L nasal cannula. Patient denies any cough. Patient denies any chest pain. Patient denies any fevers or chills. Patient falls asleep easily on examination and is a very poor informant. Patient states her breathing is worse with any exertion. Patient states nothing makes it any better. [facility] Medical History Acute kidney failure with tubular necrosis Chronic anemia Chronic pain Chronic respiratory failure with hypoxia COPD (chronic obstructive pulmonary disease) Depression Fibromyalgia GERD (gastroesophageal reflux disease) HFrEF (heart failure with reduced ejection fraction) HTN (hypertension) Hyperlipidemia Morbid obesity Obesity hypoventilation syndrome MARISOL (obstructive sleep apnea) Peptic ulcer disease Personal history of transient ischemic attack (TIA), and cerebral infarction without residual deficits Seasonal allergies TIA (transient ischemic attack) UTI (urinary tract infection) Vitamin D deficiency Home Medications acetaminophen 325 mg tablet 650 mg PO TID PAIN 05/03/22 [History Last Taken 05/28/22] amitriptyline 25 mg tablet 25 mg PO QODAY DEPRESSION 05/03/22 [History Last Taken 05/26/22] atorvastatin 20 mg tablet 20 mg PO QHS CHOLESTEROL 05/03/22 [History Last Taken 05/27/22] calcium polycarbophil 625 mg tablet (FiberCon) 625 mg PO DAILY CONSTIPATION 05/03/22 [History Last Taken 05/28/22] cyclobenzaprine 10 mg tablet 10 mg PO TID MUSCLE SPASMS 05/03/22 [History Last Taken 05/28/22] ergocalciferol (vitamin D2) 1,250 mcg (50,000 unit) capsule (Vitamin D2) 1,250 mcg PO SA SUPPLEMENT 05/03/22 [History Last Taken 05/27/22] famotidine 20 mg tablet 20 mg PO BID GERD 05/03/22 [History Last Taken 05/28/22] fluticasone propionate 50 mcg/actuation nasal spray,suspension 2 spray intranasal BID NASAL CONGESTION 05/03/22 [History Last Taken 05/28/22] guaifenesin 600 mg tablet, extended release 12 hr (Mucinex) 600 mg PO BID CONGESTION 05/03/22 [History Last Taken 05/28/22] lidocaine 4 % topical patch 1 patch topical DAILY PAIN 05/03/22 [History Last Taken 05/28/22] losartan 50 mg tablet 50 mg PO DAILY BLOOD PRESSURE 05/03/22 [History Last Taken 05/28/22] montelukast 10 mg tablet 10 mg PO DAILY ALLERGIES 05/03/22 [History Last Taken 05/28/22] omeprazole 20 mg tablet,delayed release 20 mg PO DAILY GERD 05/03/22 [History Last Taken 05/28/22] roflumilast 500 mcg tablet (Daliresp) 500 mcg PO DAILY ASTHMA 05/03/22 [History Last Taken 05/28/22] sertraline 100 mg tablet (Zoloft) 100 mg PO QHS DEPRESSION 05/03/22 [History Last Taken 05/27/22] tiotropium bromide 2.5 mcg/actuation mist for inhalation (Spiriva Respimat) 2 puff inhalation QHS ASTHMA 05/03/22 [History Last Taken 05/27/22] dicyclomine 10 mg capsule 10 mg PO 4X/DAY #1 cap 05/05/22 [Rx Last Taken 05/28/22] sucralfate 1 gram tablet 1 g PO TID@0700,1100,1600 #0 tabs 05/05/22 [Rx Last Taken 05/28/22] nystatin 100,000 unit/gram topical powder (Nyamyc) 1 applic topical TID affected areas 05/14/22 [History Last Taken 05/28/22] gabapentin 300 mg capsule 300 mg PO BID NEUROPATHY 05/28/22 [History Last Taken 05/28/22] potassium chloride 20 mEq oral packet 20 meq PO DAILY SUPPLEMENT 05/28/22 [History Last Taken 05/28/22] Allergy/AdvReac Type Severity Reaction Status Date / Time aspirin Allergy Other Verified 05/28/22 11:13 black pepper [pepper] Allergy Other Verified 05/28/22 11:13 coconut Allergy Other Verified 05/28/22 11:13 codeine Allergy Other Verified 05/28/22 11:13 ibuprofen Allergy Other Verified 05/28/22 11:13 Influenza Virus Vaccines Allergy Other Verified 05/28/22 11:13 Penicillins Allergy Anaphylaxis Verified 05/28/22 11:13 rice Allergy Other Verified 05/28/22 11:13 tetanus and diphtheria Allergy Other Verified 05/28/22 11:13 toxoids Tetanus Vaccines and Toxoid Allergy Other Verified 05/28/22 11:13 Family History Other CAD (coronary artery disease) COPD (chronic obstructive pulmonary disease) Hypertension Social History housing: senior living Smoking Status: Former smoker alcohol intake: never substance use type: does not use ROS ROS ED Constitutional Constitutional ED: Denies chills or fever(s) Eyes Eyes: Denies blurry vision or change in vision ENT ENT ED: Denies rhinorrhea or sore throat Cardiovascular Cardiovascular: Denies chest pain or palpitations Respiratory/Chest Respiratory/Chest: Reports dyspnea; Denies cough Gastrointestinal Gastrointestinal: Reports nausea; Denies vomiting Genitourinary Genitourinary ED: Denies dysuria or hematuria Musculoskeletal Musculoskeletal: Denies back pain or neck pain Integumentary Denies abscess or rash Neurologic Neurologic: Denies headache(s) or weakness Allergic/Immunologic Allergic/Immunologic ED: Denies mouth swelling or urticaria EXAM Physical Exam Const Vital Signs: 05/28/22 11:11 05/28/22 11:15 05/28/22 11:22 Temperature 96.8 F L Temperature Source Temporal Pulse Rate 98 Respiratory Rate 14 Respiratory Effort Normal Non-Labored Respiratory Depth Normal Respiratory Pattern Normal Blood Pressure 91/41 L Blood Pressure Mean 57 Pulse Ox 86 Oxygen Delivery Method Nasal Cannula Nasal Cannula Oxygen Flow Rate (L/min) 2.5 5 Fraction of Inspired Oxygen (FIO2) 05/28/22 11:39 05/28/22 12:17 05/28/22 12:33 Temperature Temperature Source Pulse Rate 97 96 Respiratory Rate 18 18 Respiratory Effort Respiratory Depth Respiratory Pattern Normal Blood Pressure 159/110 H Blood Pressure Mean 126 Pulse Ox 94 95 Oxygen Delivery Method Nasal Cannula Nasal Cannula Oxygen Flow Rate (L/min) 5 5 Fraction of Inspired Oxygen (FIO2) 05/28/22 12:42 05/28/22 12:48 05/28/22 13:32 Temperature Temperature Source Pulse Rate 95 95 95 Respiratory Rate 19 H 19 H 20 H Respiratory Effort Respiratory Depth Respiratory Pattern Blood Pressure 104/59 L Blood Pressure Mean 74 Pulse Ox 99 98 100 Oxygen Delivery Method Bi-pap Bi-pap Oxygen Flow Rate (L/min) Fraction of Inspired Oxygen (FIO2) 50 05/28/22 14:09 Temperature Temperature Source Pulse Rate 96 Respiratory Rate 16 Respiratory Effort Respiratory Depth Respiratory Pattern Blood Pressure Blood Pressure Mean Pulse Ox 98 Oxygen Delivery Method Bi-pap Oxygen Flow Rate (L/min) Fraction of Inspired Oxygen (FIO2) Positive well nourished, well developed and obese General Appearance ED: well developed and NAD Nutritional Appearance: obese HEENT Reports moist mucous membranes Neck supple and no JVD Resp normal respiratory effort Auscultation: diminished lung sounds diffuse Cardio regular rate and regular rhythm GI normal to inspection, nondistended, normoactive bowel sounds and non-tender Palpation: soft Extremity normal to inspection General Extremety ED: Negative for edema or tenderness General Extremity: Negative for edema Neuro oriented x3, CN's II-XII intact bilaterally and no sensory deficits noted Sensorium / Orientation: alert Motor Exam: strength 5/5 throughout Psych mental status grossly normal Skin no rashes or lesions noted MDM MDM MDM Narrative Medical decision making narrative: Differential diagnosis includes pneumonia, pulmonary embolism, congestive heart failure, cardiac ischemia, cardiac dysrhythmia, pneumothorax, sepsis, urinary tract infection, and viral infection. Will obtain CBC to assess for leukocytosis and anemia. Comprehensive metabolic profile will be obtained to assess for electrolyte abnormality, renal function, and hepatic function. Lactate will be obtained to assess for sepsis. Urinalysis will be obtained to assess for urinary tract infection. High-sensitivity troponin will be obtained to assess for cardiac ischemia. EKG will be obtained to assess for cardiac dysrhythmia and cardiac ischemia. BNP will be obtained to assess for congestive heart failure. CTA of the chest will be obtained to assess for pulmonary embolism. PT with INR and PTT will be obtained to assess for coagulopathy. COVID-19 rapid antigen and influenza rapid antigens will be obtained to assess for COVID-19 and influenza infection. Arterial blood gas will be obtained to assess for oxygen status and acid-base status. Lab Data Attestation: I reviewed the patient's lab results. Lab results narrative: CBC was reviewed. There is a mild leukocytosis of 14.9. There is also mild anemia with a hemoglobin of 9.8. Prior outpatient lab results were also reviewed from 2 days ago. The leukocytosis improving. The anemia is stable. Lactate was reviewed and was normal at 0.6. Arterial blood gas was reviewed and showed a pH of 7.23, PCO2 of 94.2, PO2 of 80, bicarb of 39.5, and oxygen saturation of 92% on 5 L nasal cannula. Comprehensive metabolic profile was reviewed and showed a slightly elevated BUN of 28 and creatinine 1.09. These are consistent with prior results. Urinalysis was reviewed and does not show any evidence of urinary tract infection or hematuria. BNP was reviewed and was normal. High-sensitivity troponin was normal at 12. 2-hour repeat high-sensitivity troponin was normal at 11. Labs: Laboratory Results - last 24 hr 05/28/22 05/28/22 05/28/22 11:23 11:23 11:23 WBC 14.9 H RBC 3.68 L Hgb 9.8 L Hct 33.9 L MCV 92.1 MCH 26.6 L MCHC 28.9 L RDW Std Deviation 47.3 H RDW Coeff of David 13.9 Plt Count 287 MPV 11.4 Immature Gran % (Auto) 0.900 Neut % (Auto) 75.4 H Lymph % (Auto) 14.5 L [place] % (Auto) 7.9 Eos % (Auto) 1.1 Baso % (Auto) 0.2 Absolute Neuts (auto) 11.2 H Absolute Lymphs (auto) 2.16 Nucleated RBC % 0 PT Cancelled INR Cancelled APTT Cancelled Sodium 140 Potassium 4.7 Chloride 101 Carbon Dioxide 37.0 H Anion Gap 2 L BUN 28 H Creatinine 1.09 H Estim Creat Clear Calc 51.38 Est GFR (MDRD) Af Amer 66 Est GFR (MDRD) Non-Af 54 L BUN/Creatinine Ratio 25.7 H Glucose 123 H Lactic Acid Calcium 9.9 Total Bilirubin 0.20 AST 6 L ALT 10 L Alkaline Phosphatase 96 Troponin I High Sens 12 B-Natriuretic Peptide Total Protein 6.7 Albumin 2.4 L Globulin 4.3 H Albumin/Globulin Ratio 0.6 L Urine Color Urine Clarity Urine pH Ur Specific [place] Urine Protein Urine Glucose (UA) Urine Ketones Urine Occult Blood Urine Nitrite Urine Bilirubin Urine Urobilinogen Ur Leukocyte Esterase Urine RBC Urine WBC Ur Squamous Epith Cells Urine Bacteria Fine Granular Casts Urine Mucus 05/28/22 05/28/22 05/28/22 11:25 12:16 12:16 WBC RBC Hgb Hct MCV MCH MCHC RDW Std Deviation RDW Coeff of David Plt Count MPV Immature Gran % (Auto) Neut % (Auto) Lymph % (Auto) [place] % (Auto) Eos % (Auto) Baso % (Auto) Absolute Neuts (auto) Absolute Lymphs (auto) Nucleated RBC % PT Cancelled INR Cancelled APTT Cancelled Sodium Potassium Chloride Carbon Dioxide Anion Gap BUN Creatinine Estim Creat Clear Calc Est GFR (MDRD) Af Amer Est GFR (MDRD) Non-Af BUN/Creatinine Ratio Glucose Lactic Acid 0.6 Calcium Total Bilirubin AST ALT Alkaline Phosphatase Troponin I High Sens B-Natriuretic Peptide 25.3 Total Protein Albumin Globulin Albumin/Globulin Ratio Urine Color Urine Clarity Urine pH Ur Specific [place] Urine Protein Urine Glucose (UA) Urine Ketones Urine Occult Blood Urine Nitrite Urine Bilirubin Urine Urobilinogen Ur Leukocyte Esterase Urine RBC Urine WBC Ur Squamous Epith Cells Urine Bacteria Fine Granular Casts Urine Mucus 05/28/22 05/28/22 05/28/22 12:50 13:46 14:07 WBC RBC Hgb Hct MCV MCH MCHC RDW Std Deviation RDW Coeff of David Plt Count MPV Immature Gran % (Auto) Neut % (Auto) Lymph % (Auto) [place] % (Auto) Eos % (Auto) Baso % (Auto) Absolute Neuts (auto) Absolute Lymphs (auto) Nucleated RBC % PT 13.3 INR 1.0 APTT 28.8 Sodium Potassium Chloride Carbon Dioxide Anion Gap BUN Creatinine Estim Creat Clear Calc Est GFR (MDRD) Af Amer Est GFR (MDRD) Non-Af BUN/Creatinine Ratio Glucose Lactic Acid Calcium Total Bilirubin AST ALT Alkaline Phosphatase Troponin I High Sens 11 B-Natriuretic Peptide Total Protein Albumin Globulin Albumin/Globulin Ratio Urine Color Yellow Urine Clarity Clear Urine pH 5.0 Ur Specific [place] 1.025 Urine Protein 30 H Urine Glucose (UA) Normal Urine Ketones Negative Urine Occult Blood Negative Urine Nitrite Negative Urine Bilirubin Negative Urine Urobilinogen Normal Ur Leukocyte Esterase Negative Urine RBC 0 SEEN Urine WBC 0 SEEN Ur Squamous Epith Cells 0 SEEN Urine Bacteria 0 SEEN Fine Granular Casts 5-10 SEEN Urine Mucus 0 SEEN ABG Data ABG results: ABG 05/28/22 12:13 Specimen Type ART Sample Site L Brach pH 7.23 L Bicarbonate Actual 39.5 H Total CO2 42 Base Excess 12 H O2 Saturation 92 L ABG pCO2 94.2 H* ABG pO2 80 José Miguel Test Positive O2 Delivery Device Cannula Liter Flow 5.0 Crit Call To/Read Back Yes Blood Gas Notified Whom schwiger Radiography Chest X-Ray - ED: 1 View Diagnostic Testing: Clinical Impression(s) from Imaging Studies Chest X-Ray 05/28/22 13:50 IMPRESSION: Pulmonary findings appear worse. Electronically Signed: Simone Cevallos MD at 14:22 EST , Patient was unable to fit into the CT scanner to assess for pulmonary embolism and pneumonia. Because of this, a portable chest x-ray was obtained. There is 1 view. On my independent interpretation, there is a right pleural effusion and right lower lobe infiltrate. Radiologist also interpreted the x-ray and agrees with the findings. He notes that this is worse compared to previous chest x-ray. EKG Initial EKG: Attestation: I personally reviewed and interpreted this EKG as follows: Interpretation: Sinus Rhythm (100), RBBB and Non-Specific ST Changes Comments: EKG was obtained. On my independent interpretation, it showed a normal sinus rhythm with a rate of 100. TN interval was normal at 170 ms. QRS interval was slightly prolonged at 132 ms. QTc interval was normal at 438 ms. [place] was normal. There are no acute ST or T wave changes. Prior EKG tracings: available for review Prior: Unchanged (05/14/2022) Treatment and Re-Evaluation Narrative: Due to the patient's CO2 retention, patient was started on BiPAP. Patient was given a dose of Levaquin here. Patient was advised of her findings. Patient was advised of the need for hospitalization. Patient is agreeable with this. Case was discussed with the hospitalist. She will admit the patient to PCU. Patient understands and is agreeable with the plan. All questions were answered. Critical Care Time Critical Care Time: Yes Critical care time (excluding procedures): 30-74 minutes (38), Including time spent:, Discussing w/Patient &/or Family/Liquor Bridge Operator Helper, Discussing w/Consultants, Arranging Admission or Transfer and Performing Direct Patient Care at Bedside Discharge Plan Dx/Rx/DC Orders Clinical Impression: Pneumonia, Acute and chronic respiratory failure with hypoxia, Hypercarbia Disposition Disposition: Acute Care [facility] Discharge Date/Time: 05/28/22 17:30
[2022-05-28 12:03] LABS: ALB/GLOB Ratio 0.6 RATIO (0.9-2.4); AST(SGOT) 6 U/L (15-37); Alanine Aminotransfer ALT/SGPT 10 U/L (13-56); Albumin, Serum 2.4 g/dL (3.2-5.0); Alkaline Phosphatase 96 U/L (45-117); Anion Gap 2 (5-15); BUN 28 mg/dL (7-18); BUN/Creat Ratio 25.7 RATIO (10-20); Calcium,Total 9.9 mg/dL (8.5-10.1); Chloride 101 mmol/L (98-107); Creatinine, Serum 1.09 mg/dL (0.55-1.02); EST Glomerular Filtration Rate 54 mL/min (>60); Est Glom Filt Rate - Afr Amer 66 mL/min (>60); Estimated Creatinine Clearance 51.38 ml/min; Globulin 4.3 g/dL (2.2-4.2); Glucose 123 mg/dL (74-106); Potassium 4.7 mmol/L (3.5-5.1); Protein, Total 6.7 g/dL (6.4-8.2); Sodium Level 140 mmol/L (136-145); Troponin-I HS (w/2H Reflex) 12 pg/mL (3.0-54.0)
[2022-05-28] MEDS: Ipratropium/Albuterol Sulfate 3 ML AMPUL.NEB INHALATION ×2 (12:16→19:59)
[2022-05-28 12:20] LABS: Allen Test Positive; Base Excess 12 mmol/L (-2 to +2); Bicarbonate 39.5 mmol/L (22-26); Blood Gas Specimen Type ART; O2 Delivery Device Cannula; PO2 80 mmHG (75-100); SITE L Brach; SO2 92 % (95-99); Total Carbon Dioxide 42 mmol/L; pCO2 94.2 mmHg (35-45); pH 7.23 (7.35-7.45)
[2022-05-28 12:43] LABS: BNP,B-Type NATRIURETIC PEPTIDE 25.3 pg/mL (0-100)
[2022-05-28 13:14] LABS: Prothrombin Time (Protime)PT. 13.3 SECONDS (11.7-14.9)
[2022-05-28 13:15] LABS: Partial Thromboplast Time 28.8 Seconds (24.1-36.2)
--- NOTE | 2022-05-28 13:33 | ED.RN ---
THIS RN CALLED RESPIRATORY TO FIX BIPAP MASK. CALL AT [phone]. RESPIRATORY AT BEDSIDE AT [phone].
[2022-05-28 13:40] LABS: Reflex Troponin-HS? (from REC) Y
--- NOTE | 2022-05-28 13:50 | RAD_ITS ---
STUDY: XR Chest 1 View 05/28/2022 1:44 PM REASON FOR EXAM: Female, 61 years old. CHEST PAIN Dyspnea COMPARISON: 2.5.23 TECHNIQUE: XR Chest 1 View FINDINGS: There is a right pleural effusion. Right lower lobe infiltrate. Normal heart size. Normal mediastinum. Normal lito. Prominent appearing increased interstitial lung markings. Normal visualized pulmonary arteries. There is atherosclerotic calcification of the aortic arch with tortuosity. There are diffuse degenerative changes of the visualized thoracic spine. There is degenerative osteoarthritis of the bilateral shoulders. There is no demonstrated abnormality of the visualized soft tissue structures of the upper abdomen. RAD/Chest 1 View (Portable) IMPRESSION: Pulmonary findings appear worse. Electronically Signed: Simone Cevallos MD at 14:22 EST ,
[2022-05-28 13:51] LABS: Bacteria 0 SEEN /hpf (None Seen); Mucous, Urine 0 SEEN /hpf (<or=2+); Red Blood Cells-Urine 0 SEEN /hpf (0-5); Squamous Epithelial Cells - UA 0 SEEN /hpf (5-10); White Blood Cells 0 SEEN /hpf (0-5)
[2022-05-28 13:52] LABS: Color, Urine Yellow (Yellow); Glucose, Dipstick Normal (Normal); Ketone-Dipstick Negative (Negative); Leukocyte Esterase-Dipstick Negative /ul (Negative); Nitrite-Dipstick Negative (Negative); Occult Blood-Urine Negative /ul (Negative); Protein-Dipstick 30 mg/dl (Negative); Specific Gravity, Urine 1.025 (1.002-1.030); Urine Bilirubin Dipstick Negative (Negative); Urine Clarity Clear (Clear); Urine Urobilinogen Normal (Normal)
[2022-05-28 13:58] LABS: Fine Granular Cast- Urine 5-10 SEEN /lpf (0-5)
[2022-05-28 14:27] LABS: Troponin-I HS 11 pg/mL (3.0-54.0)
--- NOTE | 2022-05-28 14:52 | ED.RN ---
PT YELLING WHEN THIS RN ENTERED THE ROOM. PT BEGAN TO PULL OFF BIPAP. THIS RN EDUCATED THE PT ABOUT WHY BIPAP WAS NEEDED TO MAINTAIN SPO2 VALUE OF 90 OR ABOVE AND TO HELP WITH BREATHING. PT STATES I DONT CARE IM DONE WEARING THIS THING PRINT OFF THE PAPERS I AM GOING HOME. THIS RN ATTEMPTED TO EDUCATE PT AGAIN ABOUT WHY BIPAP WAS NEEDED TO MAINTAIN SPO2 OF 90 OR ABOVE. PT DENIED WANTING BIPAP, Lissa LOJA, RN WITNESSED AT BEDSIDE. THIS RN ASKED PT IF NC WAS OKAY TO PUT ON PT, PT AGREED. PT ON 5L NC SPO2 82. DR. CASTILLO NOTIFIED. PT STATES I AM NOT GETTING ADMITTED I DO NOT HAVE PNEUMONIA. DR. CASTILLO AWARE.
--- NOTE | 2022-05-28 15:05 | HP.PCM.HOS_ITS ---
HPI - General General Date of Admission: 05/28/22 Date of Service: 05/28/22 Chief Complaint: Hypoxia - 1 day HPI Narrative HE TRAYLOR, is a 61 F who presents with the above. Patient was recently discharged from the hospital on 05/16/2022 after admission for acute metabolic encephalopathy secondary to acute Proteus mirabilis UTI. Patient is usually on 2.5 L of oxygen via nasal cannula. Patient presented with worsening shortness of breath with low pulse ox noted at the long-term facility. She was also noted to be confused. In the emergency room, her blood pressure was 91/41, heart rate 98, respiratory rate was 14, temperature was 96.8F, oxygen sat was 86% on 2.5L of oxygen. She was transitioned to BiPAP. Her admitting blood work showed WBC 14.9, with neutrophilia, hemoglobin 9.8, platelets 287, ABG showed pH of 7.23, PCO2 of 94.2. Her BMP showed sodium 140, potassium 4.7, chloride 101, bicarb 37, BUN 28, creatinine 1.09. Lactic acid 0.6. Troponin is 11. BNP was 25.3. UA is unremarkable. Admitting chest x-ray shows a right pleural effusion, right lower lobe infiltrate. Rapid COVID-19 antigen test as well as influenza screen negative. [facility] Medical History Acute kidney failure with tubular necrosis Chronic anemia Chronic pain Chronic respiratory failure with hypoxia COPD (chronic obstructive pulmonary disease) Depression Fibromyalgia GERD (gastroesophageal reflux disease) HFrEF (heart failure with reduced ejection fraction) HTN (hypertension) Hyperlipidemia Morbid obesity Obesity hypoventilation syndrome MARISOL (obstructive sleep apnea) Peptic ulcer disease Personal history of transient ischemic attack (TIA), and cerebral infarction without residual deficits Seasonal allergies TIA (transient ischemic attack) UTI (urinary tract infection) Vitamin D deficiency Home Medications acetaminophen 325 mg tablet 650 mg PO TID PAIN 05/03/22 [History Last Taken 05/28/22] amitriptyline 25 mg tablet 25 mg PO QODAY DEPRESSION 05/03/22 [History Last Say en 05/26/22] atorvastatin 20 mg tablet 20 mg PO QHS CHOLESTEROL 05/03/22 [History Last Taken 05/27/22] calcium polycarbophil 625 mg tablet (FiberCon) 625 mg PO DAILY CONSTIPATION 05/03/22 [History Last Taken 05/28/22] cyclobenzaprine 10 mg tablet 10 mg PO TID MUSCLE SPASMS 05/03/22 [History Last Taken 05/28/22] ergocalciferol (vitamin D2) 1,250 mcg (50,000 unit) capsule (Vitamin D2) 1,250 mcg PO SA SUPPLEMENT 05/03/22 [History Last Taken 05/27/22] famotidine 20 mg tablet 20 mg PO BID GERD 05/03/22 [History Last Taken 05/28/22] fluticasone propionate 50 mcg/actuation nasal spray,suspension 2 spray intranasal BID NASAL CONGESTION 05/03/22 [History Last Taken 05/28/22] guaifenesin 600 mg tablet, extended release 12 hr (Mucinex) 600 mg PO BID CONGESTION 05/03/22 [History Last Taken 05/28/22] lidocaine 4 % topical patch 1 patch topical DAILY PAIN 05/03/22 [History Last Taken 05/28/22] losartan 50 mg tablet 50 mg PO DAILY BLOOD PRESSURE 05/03/22 [History Last Taken 05/28/22] montelukast 10 mg tablet 10 mg PO DAILY ALLERGIES 05/03/22 [History Last Taken 05/28/22] omeprazole 20 mg tablet,delayed release 20 mg PO DAILY GERD 05/03/22 [History Last Taken 05/28/22] roflumilast 500 mcg tablet (Daliresp) 500 mcg PO DAILY ASTHMA 05/03/22 [History Last Taken 05/28/22] sertraline 100 mg tablet (Zoloft) 100 mg PO QHS DEPRESSION 05/03/22 [History Last Taken 05/27/22] tiotropium bromide 2.5 mcg/actuation mist for inhalation (Spiriva Respimat) 2 puff inhalation QHS ASTHMA 05/03/22 [History Last Taken 05/27/22] dicyclomine 10 mg capsule 10 mg PO 4X/DAY #1 cap 05/05/22 [Rx Last Taken 05/28/22] sucralfate 1 gram tablet 1 g PO TID@0700,1100,1600 #0 tabs 05/05/22 [Rx Last Taken 05/28/22] nystatin 100,000 unit/gram topical powder (Nyamyc) 1 applic topical TID affected areas 05/14/22 [History Last Taken 05/28/22] gabapentin 300 mg capsule 300 mg PO BID NEUROPATHY 05/28/22 [History Last Taken 05/28/22] potassium chloride 20 mEq oral packet 20 meq PO DAILY SUPPLEMENT 05/28/22 [History Last Taken 05/28/22] Allergy/AdvReac Type Severity Reaction Status Date / Time aspirin Allergy Other Verified 05/28/22 11:13 black pepper [pepper] Allergy Other Verified 05/28/22 11:13 coconut Allergy Other Verified 05/28/22 11:13 codeine Allergy Other Verified 05/28/22 11:13 ibuprofen Allergy Other Verified 05/28/22 11:13 Influenza Virus Vaccines Allergy Other Verified 05/28/22 11:13 Penicillins Allergy Anaphylaxis Verified 05/28/22 11:13 rice Allergy Other Verified 05/28/22 11:13 tetanus and diphtheria Allergy Other Verified 05/28/22 11:13 toxoids Tetanus Vaccines and Toxoid Allergy Other Verified 05/28/22 11:13 Family History Other CAD (coronary artery disease) COPD (chronic obstructive pulmonary disease) Hypertension unable to obtain Social History housing: detention Smoking Status: Former smoker alcohol intake: never substance use type: does not use ROS ROS Narrative Patient is alert oriented to self, intermittently confused Review of Systems ROS Unobtainable: due to encephalopathy Vital Signs Vital Signs Vital Signs: 05/28/22 11:11 05/28/22 11:15 05/28/22 11:22 Temperature 96.8 F L Temperature Source Temporal Pulse Rate 98 Respiratory Rate 14 Respiratory Effort Normal Non-Labored Respiratory Depth Normal Respiratory Pattern Normal Blood Pressure 91/41 L Blood Pressure Mean 57 Pulse Ox 86 Oxygen Delivery Method Nasal Cannula Nasal Cannula Oxygen Flow Rate (L/min) 2.5 5 Fraction of Inspired Oxygen (FIO2) 05/28/22 11:39 05/28/22 12:17 05/28/22 12:33 Temperature Temperature Source Pulse Rate 97 96 Respiratory Rate 18 18 Respiratory Effort Respiratory Depth Respiratory Pattern Normal Blood Pressure 159/110 H Blood Pressure Mean 126 Pulse Ox 94 95 Oxygen Delivery Method Nasal Cannula Nasal Cannula Oxygen Flow Rate (L/min) 5 5 Fraction of Inspired Oxygen (FIO2) 05/28/22 12:42 05/28/22 12:48 05/28/22 13:32 Temperature Temperature Source Pulse Rate 95 95 95 Respiratory Rate 19 H 19 H 20 H Respiratory Effort Respiratory Depth Respiratory Pattern Blood Pressure 104/59 L Blood Pressure Mean 74 Pulse Ox 99 98 100 Oxygen Delivery Method Bi-pap Bi-pap Oxygen Flow Rate (L/min) Fraction of Inspired Oxygen (FIO2) 50 05/28/22 14:09 Temperature Temperature Source Pulse Rate 96 Respiratory Rate 16 Respiratory Effort Respiratory Depth Respiratory Pattern Blood Pressure Blood Pressure Mean Pulse Ox 98 Oxygen Delivery Method Bi-pap Oxygen Flow Rate (L/min) Fraction of Inspired Oxygen (FIO2) Weight Weight: 79.56 kg Body Mass Index (BMI) 28.3 Physical Exam Narrative Physical exam: General: Alert, intermittently confused, Cooperative, morbidly obese, on BiPAP HEENT: Atraumatic Oral: Moist Mucosa Neck: Supple Lungs: Diminished to auscultation Cardiovascular: HS I+II, regular, no murmurs Abdomen: Bowel Sounds Present, Soft, Non Tender Extremities: Trace bilateral leg edema Skin: No rashes, No breakdown Neurological: Grossly intact Psych/Mental Status: Appropriate Results Lab / Micro Data Result Diagrams: 05/28/22 11:23 05/28/22 11:23 Labs: Laboratory Results - last 24 hr 05/28/22 11:23: WBC 14.9 H, RBC 3.68 L, Hgb 9.8 L, Hct 33.9 L, MCV 92.1, MCH 26.6 L, MCHC 28.9 L, RDW Std Deviation 47.3 H, RDW Coeff of David 13.9, Plt Count 287, MPV 11.4, Immature Gran % (Auto) 0.900, Neut % (Auto) 75.4 H, Lymph % (Auto) 14.5 L, [place] % (Auto) 7.9, Eos % (Auto) 1.1, Baso % (Auto) 0.2, Absolute Neuts (auto) 11.2 H, Absolute Lymphs (auto) 2.16, Nucleated RBC % 0 05/28/22 11:23: PT Cancelled, INR Cancelled, APTT Cancelled 05/28/22 11:23: Sodium 140, Potassium 4.7, Chloride 101, Carbon Dioxide 37.0 H, Anion Gap 2 L, BUN 28 H, Creatinine 1.09 H, Estim Creat Clear Calc 51.38, Est GFR (MDRD) Af Amer 66, Est GFR (MDRD) Non-Af 54 L, BUN/Creatinine Ratio 25.7 H, Glucose 123 H, Calcium 9.9, Total Bilirubin 0.20, AST 6 L, ALT 10 L, Alkaline Phosphatase 96, Troponin I High Sens 12, Total Protein 6.7, Albumin 2.4 L, Globulin 4.3 H, Albumin/Globulin Ratio 0.6 L 05/28/22 11:25: Lactic Acid 0.6 05/28/22 12:16: PT Cancelled, INR Cancelled, APTT Cancelled 05/28/22 12:16: B-Natriuretic Peptide 25.3 05/28/22 12:50: PT 13.3, INR 1.0, APTT 28.8 05/28/22 13:46: Urine Color Yellow, Urine Clarity Clear, Urine pH 5.0, Ur Specific [place] 1.025, Urine Protein 30 H, Urine Glucose (UA) Normal, Urine Ketones Negative, Urine Occult Blood Negative, Urine Nitrite Negative, Urine Bilirubin Negative, Urine Urobilinogen Normal, Ur Leukocyte Esterase Negative, Urine RBC 0 SEEN, Urine WBC 0 SEEN, Ur Squamous Epith Cells 0 SEEN, Urine Bacteria 0 SEEN, Fine Granular Casts 5-10 SEEN, Urine Mucus 0 SEEN 05/28/22 14:07: Troponin I High Sens 11 Micro: Microbiology 05/28/22 11:43 Nasal Secretion SARS-CoV-2 & FLU Antigen (Rapid) - Final ABG Data ABG results: ABG 05/28/22 12:13 Specimen Type ART Sample Site L Brach pH 7.23 L Bicarbonate Actual 39.5 H Total CO2 42 Base Excess 12 H O2 Saturation 92 L ABG pCO2 94.2 H* ABG pO2 80 José Miguel Test Positive O2 Delivery Device Cannula Liter Flow 5.0 Crit Call To/Read Back Yes Blood Gas Notified Whom spencer Radiology Impression Chest X-Ray 05/28/22 13:50 IMPRESSION: Pulmonary findings appear worse. Electronically Signed: Simone Cevallos MD at 14:22 EST , Assessment & Plan Assessment/Plan (1) Hypercarbia: (2) Pneumonia: (3) Hypoxia: PLAN: Plan 1. Acute on chronic hypercapneic failure secondary to COPD exacerbation/pneumonia Patient is typically on 2.5 L of oxygen, currently on BiPAP ABG shows pH of 7.22 with PCO2 94.2 Chest X-ray showed right-sided infiltrate with pleural effusion Admit to PCU, continue breathing treatments, IV Solu-Medrol, IV Levaquin Check sputum culture, urine Legionella and streptococcal antigen 2. Acute metabolic encephalopathy secondary to #1 We will continue to monitor 3. Relative hypotension, patient with Hypertension Will hold losartan for now, continue on gentle IV fluids Continue to monitor blood pressure 4. Obesity/Obesity hypoventilation syndrome Outpatient obesity management recommended 5. Depression, continue Zoloft, amitryptiline 6. GERD, continue omeprazole 7. DVT PPx- Lovenox BID Charges/Coding Addendum Addendum: Total time spent: 75 minutes of which more > 50% was spent in reviewing patient's chart, laboratory investigations, imaging, discussed with emergency physician, taking history and physical examining patient. Visit Charges Inpatient E&M: 84337 Init Hosp L3
--- NOTE | 2022-05-28 15:48 | CPS ---
placed pt back on bipap at this time. tolerating well
[2022-05-28] MEDS: levoFLOXacin IV 750 MG/150 ML BAG 100 MG IV (15:56)
[2022-05-28] MEDS: 0.9% Normal Saline 1,000 ML 1000 ML IV (15:56)
--- NOTE | 2022-05-28 17:46 | CPS ---
pt juliet well upon transfer from ER
[2022-05-28] MEDS: 0.9% Normal Saline 1,000 ML 75 ML IV (19:55)
[2022-05-28] MEDS: Enoxaparin 40 MG/0.4 ML Syringe SC (21:28)
[2022-05-28] MEDS: cycloBENZAPRine HCl 10 MG Tablet PO (21:30)
[2022-05-28] MEDS: Dicyclomine 10 MG Capsule PO (21:31)
[2022-05-28] MEDS: Sertraline 100 MG Tablet PO (21:34)
[2022-05-28] MEDS: Montelukast 10 MG Tablet PO (21:35)
[2022-05-28] MEDS: Atorvastatin Calcium 20 MG Tablet PO (21:35)
[2022-05-28] MEDS: guaiFENesin 600 MG Tablet PO (21:37)
[2022-05-28] MEDS: Sucralfate 1 GM Tablet PO (21:43)
[2022-05-28] MEDS: Gabapentin 300 MG Capsule PO (21:44)
[2022-05-28] MEDS: 0.9% Saline Lock 10 ML Syringe IV (21:45)
[2022-05-29] VITALS (12 sets, daily range): BP systolic 89–147; BP diastolic 52–121; PULSE 70–98; RESP 12–22; TEMP 36.8–37.4; O2SAT 94–100
[2022-05-29 05:55] LABS: Absolute Neutrophil Count 13.3 X10^3/uL (2.0-7.7); Basophil# 0.04 X10^3/uL; Basophil% 0.3 % (0-1); Eosinophil# 0.01 X10^3/uL; Eosinophils% 0.1 % (0-5); Hematocrit 31.8 % (37-47); Hemoglobin 9.3 g/dL (12.0-15.0); Lymphocyte % 6.1 % (19-41); Mean Corp Hgb Conc 29.2 g/dL (32-36); Mean Corpuscular Hgb 26.9 pg (27.0-32.0); Mean Corpuscular Volume 91.9 fL (81-99); Mean Platelet Vol. 11.7 fl (6.2-12.0); Monocyte# 0.25 X10^3/uL; Monocyte% 1.7 % (0-10); NRBC Flagged by Analyzer 0 % (0-5); Neutrophil # 13.27 X10^3/uL (2.7-7.7); Platelet Count 253 K/mm3 (150-450); RBC Distribution Width CV 13.7 % (11.6-14.6); RBC Distribution Width SD 45.8 fl (35.1-43.9); Red Blood Count 3.46 M/mm3 (4.2-5.4); White Blood Count 14.7 K/mm3 (4.4-11.0)
[2022-05-29 06:34] LABS: ALB/GLOB Ratio 0.5 RATIO (0.9-2.4); AST(SGOT) 9 U/L (15-37); Alanine Aminotransfer ALT/SGPT 10 U/L (13-56); Albumin, Serum 2.2 g/dL (3.2-5.0); Alkaline Phosphatase 106 U/L (45-117); Anion Gap 6 (5-15); BUN 23 mg/dL (7-18); BUN/Creat Ratio 30.3 RATIO (10-20); Calcium,Total 9.7 mg/dL (8.5-10.1); Chloride 99 mmol/L (98-107); Creatinine, Serum 0.76 mg/dL (0.55-1.02); EST Glomerular Filtration Rate 82 mL/min (>60); Est Glom Filt Rate - Afr Amer 100 mL/min (>60); Estimated Creatinine Clearance 73.69 ml/min; Globulin 4.1 g/dL (2.2-4.2); Glucose 156 mg/dL (74-106); Potassium 5.1 mmol/L (3.5-5.1); Protein, Total 6.3 g/dL (6.4-8.2); Sodium Level 138 mmol/L (136-145)
[2022-05-29] MEDS: predniSONE 20 MG Tablet 40 MG PO (06:46)
[2022-05-29] MEDS: cycloBENZAPRine HCl 10 MG Tablet PO ×3 (06:47→21:41)
[2022-05-29] MEDS: Sucralfate 1 GM Tablet PO ×3 (06:47→16:20)
[2022-05-29] MEDS: Ipratropium/Albuterol Sulfate 3 ML AMPUL.NEB INHALATION ×3 (07:34→20:23)
--- NOTE | 2022-05-29 08:50 | CASEMGMT ---
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 Patient was at [facility] recently. SW sent updates to [facility]. Patient did not require pre-cert last time she was at [facility] as she does not participate in therapy. Plan: d/c back to [facility] under intermediate level of care. Sheeba GENAO
--- NOTE | 2022-05-29 09:17 | PN.HOSP_ITS ---
Reason for Visit Reason for Visit: Diagnoses Pneumonia, unspecified organism (05/28/22) Other abnormalities of breathing (05/28/22) Hypoxemia (05/28/22) Subjective Subjective Breathing okay. States that she was given a CPAP by Dr. Shabnam Malonemas this year which she states that she has been using. Objective Data Objective Data Vital Signs: Vital Signs Temp Pulse Resp BP Pulse Ox O2 Del Method O2 Flow Rate 37.2 C 98 22 H 101/62 94 Bi-pap 3 05/29/22 06:00 05/29/22 07:35 05/29/22 07:35 05/29/22 06:00 05/29/22 06:00 05/29/22 06:00 05/28/22 21:08 FiO2 30 05/29/22 03:39 Oxygen Flow Rate (L/min) 3 Oxygen Delivery Method Bi-pap Weight: 163.42 kg Body Mass Index (BMI) 57.9 Intake & Output: Intake and Output for Last 24 Hours 05/27/22 05/28/22 05/29/22 23:59 23:59 23:59 Intake Total 1150 / 1150 467.5 / 467.5 Output Total 300 / 500 1050 / 1050 Balance 850 / 650 -582.5 / -582.5 Lab / Micro Data Result Diagrams: 05/29/22 05:04 05/29/22 05:04 Labs: Laboratory Results - last 24 hr 05/28/22 11:23: WBC 14.9 H, RBC 3.68 L, Hgb 9.8 L, Hct 33.9 L, MCV 92.1, MCH 26.6 L, MCHC 28.9 L, RDW Std Deviation 47.3 H, RDW Coeff of David 13.9, Plt Count 287, MPV 11.4, Immature Gran % (Auto) 0.900, Neut % (Auto) 75.4 H, Lymph % (Auto) 14.5 L, [place] % (Auto) 7.9, Eos % (Auto) 1.1, Baso % (Auto) 0.2, Absolute Neuts (auto) 11.2 H, Absolute Lymphs (auto) 2.16, Nucleated RBC % 0 05/28/22 11:23: PT Cancelled, INR Cancelled, APTT Cancelled 05/28/22 11:23: Sodium 140, Potassium 4.7, Chloride 101, Carbon Dioxide 37.0 H, Anion Gap 2 L, BUN 28 H, Creatinine 1.09 H, Estim Creat Clear Calc 51.38, Est GFR (MDRD) Af Amer 66, Est GFR (MDRD) Non-Af 54 L, BUN/Creatinine Ratio 25.7 H, Glucose 123 H, Calcium 9.9, Total Bilirubin 0.20, AST 6 L, ALT 10 L, Alkaline Phosphatase 96, Troponin I High Sens 12, Total Protein 6.7, Albumin 2.4 L, Globulin 4.3 H, Albumin/Globulin Ratio 0.6 L 05/28/22 11:25: Lactic Acid 0.6 05/28/22 12:16: PT Cancelled, INR Cancelled, APTT Cancelled 05/28/22 12:16: B-Natriuretic Peptide 25.3 05/28/22 12:50: PT 13.3, INR 1.0, APTT 28.8 05/28/22 13:46: Urine Color Yellow, Urine Clarity Clear, Urine pH 5.0, Ur Specific [place] 1.025, Urine Protein 30 H, Urine Glucose (UA) Normal, Urine Ketones Negative, Urine Occult Blood Negative, Urine Nitrite Negative, Urine Bilirubin Negative, Urine Urobilinogen Normal, Ur Leukocyte Esterase Negative, Urine RBC 0 SEEN, Urine WBC 0 SEEN, Ur Squamous Epith Cells 0 SEEN, Urine Bacteria 0 SEEN, Fine Granular Casts 5-10 SEEN, Urine Mucus 0 SEEN 05/28/22 14:07: Troponin I High Sens 11 05/29/22 05:04: WBC 14.7 H, RBC 3.46 L, Hgb 9.3 L, Hct 31.8 L, MCV 91.9, MCH 26.9 L, MCHC 29.2 L, RDW Std Deviation 45.8 H, RDW Coeff of David 13.7, Plt Count 253, MPV 11.7, Immature Gran % (Auto) 1.800 H, Neut % (Auto) 90.0 H, Lymph % (Auto) 6.1 L, [place] % (Auto) 1.7, Eos % (Auto) 0.1, Baso % (Auto) 0.3, Absolute Neuts (auto) 13.3 H, Absolute Lymphs (auto) 0.90, Nucleated RBC % 0 05/29/22 05:04: Sodium 138, Potassium 5.1, Chloride 99, Carbon Dioxide 33.0 H, Anion Gap 6, BUN 23 H, Creatinine 0.76, Estim Creat Clear Calc 73.69, Est GFR (MDRD) Af Amer 100, Est GFR (MDRD) Non-Af 82, BUN/Creatinine Ratio 30.3 H, Glucose 156 H, Calcium 9.7, Total Bilirubin 0.30, AST 9 L, ALT 10 L, Alkaline Phosphatase 106, Total Protein 6.3 L, Albumin 2.2 L, Globulin 4.1, Albumin/Globulin Ratio 0.5 L Micro: Microbiology 05/28/22 13:46 Urine, Clean Catch Legionella Antigen - Final 05/28/22 13:46 Urine, Clean Catch Streptococcus pneumoniae Antigen (M - Final 05/28/22 20:08 Mucosa - Nasopharyngeal Respiratory Panel (PCR) - Final 05/28/22 11:43 Nasal Secretion SARS-CoV-2 & FLU Antigen (Rapid) - Final ABG Data ABG results: ABG 05/28/22 12:13 Specimen Type ART Sample Site L Brach pH 7.23 L Bicarbonate Actual 39.5 H Total CO2 42 Base Excess 12 H O2 Saturation 92 L ABG pCO2 94.2 H* ABG pO2 80 José Miguel Test Positive O2 Delivery Device Cannula Liter Flow 5.0 Crit Call To/Read Back Yes Blood Gas Notified Whom schwiger Radiography Diagnostic Testing: Radiology Impression Chest X-Ray 05/28/22 13:50 IMPRESSION: Pulmonary findings appear worse. Electronically Signed: Simone Cevallos MD at 14:22 EST Reading Location ID and State: [facility] / [place] , Service support , Physical Exam Const alert and no apparent distress HEENT head/scalp atraumatic and moist oral mucous membranes Resp normal respiratory effort, no retractions, no use of accessory muscles and clear to auscultation bilaterally Cardio regular rate, regular rhythm, S1 normal heart sound and S2 normal heart sound GI normal to inspection, nondistended, normoactive bowel sounds Extremity normal to inspection Neuro oriented x3 Assessment & Plan Assessment/Plan (1) Hypercarbia: PLAN: acute on chronic hypercapneic failure secondary to COPD exacerbation, morbid obesity, obesity hypoventilation. Less likely pneumonia. Patient is typically on 2.5 L of oxygen, currently on BiPAP ABG shows pH of 7.22 with PCO2 94.2 Chest X-ray showed right-sided infiltrate with pleural effusion Admit to PCU, continue breathing treatments, IV Solu-Medrol, IV Levaquin Check sputum culture, urine Legionella and streptococcal antigen Patient requires volume ventilation and all other alternative therapies, including bilevel, have been considered and ruled out due to the severity of the disease state, weak breathing muscles and potential life-threatening condition including CO2 retention probability of acute exacerbation, patient requires ventilation to be used during the day as needed, addition to every night usage with facemask. (2) Metabolic encephalopathy: PLAN: Resolved 2/2 hypercapnia PLAN: Plan Chronic conditions: * Obesity/Obesity hypoventilation syndrome. Outpatient obesity management recommended * Depression, continue Zoloft, amitryptiline * GERD, continue omeprazole DVT PPx- Lovenox BID Charges/Coding Visit Charges Inpatient E&M: 53968 Subs Hosp L2
[2022-05-29] MEDS: Pantoprazole Sodium 20 MG Tablet PO (10:23)
[2022-05-29] MEDS: guaiFENesin 600 MG Tablet PO ×2 (10:23→21:41)
[2022-05-29] MEDS: Enoxaparin 40 MG/0.4 ML Syringe SC (10:23)
[2022-05-29] MEDS: Dicyclomine 10 MG Capsule PO ×4 (10:23→21:41)
[2022-05-29] MEDS: Gabapentin 300 MG Capsule PO ×2 (10:39→21:41)
[2022-05-29] MEDS: 0.9% Saline Lock 10 ML Syringe IV (21:41)
[2022-05-29] MEDS: Montelukast 10 MG Tablet PO (21:41)
[2022-05-29] MEDS: Sertraline 100 MG Tablet PO (21:41)
[2022-05-29] MEDS: Atorvastatin Calcium 20 MG Tablet PO (21:41)
[2022-05-29] MEDS: Amitriptyline 25 MG Tablet PO (21:41)
--- NOTE | 2022-05-29 23:28 | NURSING ---
Pt refusing bipap and lovenox at this time. Attempted to educate pt on importance but pt still refusing.
[2022-05-30] VITALS (10 sets, daily range): BP systolic 100–146; BP diastolic 60–89; PULSE 73–98; RESP 12–23; TEMP 36.6–36.7; O2SAT 92–99; BMI 58.8
[2022-05-30] MEDS: Sucralfate 1 GM Tablet PO ×3 (06:00→17:45)
[2022-05-30] MEDS: 0.9% Saline Lock 10 ML Syringe IV (06:00)
[2022-05-30] MEDS: cycloBENZAPRine HCl 10 MG Tablet PO ×2 (06:00→14:09)
--- NOTE | 2022-05-30 07:51 | PCM.PN.HOSP ---
Reason for Visit Reason for Visit: Diagnoses Metabolic encephalopathy (05/28/22) Pneumonia, unspecified organism (05/28/22) Other abnormalities of breathing (05/28/22) Hypoxemia (05/28/22) Subjective Subjective Feels well. Objective Data Objective Data Vital Signs: Vital Signs Temp Pulse Resp BP Pulse Ox O2 Del Method O2 Flow Rate 36.6 C 73 23 H 146/72 H 92 Bi-pap 3 05/30/22 03:33 05/30/22 05:34 05/30/22 05:34 05/30/22 03:33 05/30/22 05:34 05/30/22 03:35 05/29/22 21:35 FiO2 30 05/30/22 05:34 Oxygen Flow Rate (L/min) 3 Oxygen Delivery Method Bi-pap Weight: 165.3 kg Body Mass Index (BMI) 58.8 Intake & Output: Intake and Output for Last 24 Hours 05/28/22 05/29/22 05/30/22 23:59 23:59 23:59 Intake Total 1150 / 1150 767.5 / 767.5 Output Total 300 / 500 2200 / 2200 100 / 100 Balance 850 / 650 -1432.5 / -1432.5 -100 / -100 Lab / Micro Data Result Diagrams: 05/29/22 05:04 05/29/22 05:04 Micro: Microbiology 05/28/22 13:46 Urine, Clean Catch Legionella Antigen - Final 05/28/22 13:46 Urine, Clean Catch Streptococcus pneumoniae Antigen (M - Final 05/28/22 20:08 Mucosa - Nasopharyngeal Respiratory Panel (PCR) - Final 05/28/22 11:43 Nasal Secretion SARS-CoV-2 & FLU Antigen (Rapid) - Final Physical Exam Const alert and no apparent distress Constitutional Narrative: Morbidly obese. Lying in bed. No respiratory distress. No conversational dyspnea. Resp normal respiratory effort, no retractions, no use of accessory muscles and clear to auscultation bilaterally GI normal to inspection, nondistended, normoactive bowel sounds, soft to palpation, non-tender and non-distended Extremity normal to inspection Assessment & Plan Assessment/Plan (1) Hypercarbia: PLAN: acute on chronic hypercapneic failure secondary to COPD exacerbation, morbid obesity, obesity hypoventilation. Less likely pneumonia. Patient is typically on 2.5 L of oxygen, currently on BiPAP ABG shows pH of 7.22 with PCO2 94.2 Chest X-ray showed right-sided infiltrate with pleural effusion Admit to PCU, continue breathing treatments, IV Solu-Medrol, IV Levaquin Infectious work-up, including respiratory panel, Legionella and Streptococcus antigen, blood cultures and COVID-19 thus far negative. We will arrange for BiPAP at [facility]. Patient requires volume ventilation and all other alternative therapies, including bilevel, have been considered and ruled out due to the severity of the disease state, weak breathing muscles and potential life-threatening condition including CO2 retention probability of acute exacerbation, patient requires ventilation to be used during the day as needed, addition to every night usage with facemask. (2) Metabolic encephalopathy: PLAN: Resolved 2/2 hypercapnia PLAN: Plan Chronic conditions: Obesity/Obesity hypoventilation syndrome. Outpatient obesity management recommended Depression, continue Zoloft, amitryptiline GERD, continue omeprazole DVT PPx- Lovenox BID
[2022-05-30] MEDS: Furosemide 40 MG/4 ML Vial IV (10:37)
[2022-05-30] MEDS: guaiFENesin 600 MG Tablet PO (10:37)
[2022-05-30] MEDS: Gabapentin 300 MG Capsule PO (10:37)
[2022-05-30] MEDS: Dicyclomine 10 MG Capsule PO ×3 (10:37→17:46)
[2022-05-30] MEDS: Pantoprazole Sodium 20 MG Tablet PO (10:37)
[2022-05-30] MEDS: levoFLOXacin IV 750 MG/150 ML BAG 100 MG IV (10:39)
--- NOTE | 2022-05-30 10:58 | CASEMGMT ---
Addendum entered by Sheeba Lucio 05/30/22 11:41: [facility] cannot get a Trilogy, but they can do bipap for patient. SW let them know physician is looking to discharge patient today. Sheeba GENAO Original Note: Physician asked about patient getting a Trilogy non invasive ventilator. Patient is from [facility] so SW can see if that is something they can do. SW asked if they are unable to get Trilogy can they get a bipap for patient. SW also sent the bipap settings patient is on at [facility]. Sheeba GENAO
--- NOTE | 2022-05-30 14:09 | TREXTCAR_ITS ---
Diet Diet Order/Speech Therapy: 05/29/22 12:56 Diet: Cardiac: Calorie-Controlled Dietary Modifications:: Sodium Restricted Is pt able to select menu?: Yes Diet Comments: allergic to rice, black pepper, coconut How many daily calories?: 1800 calorie Routine Orders/Code Status O2 Liters per Minute: 3L/m. BiPAP 16/10 with 30% FiO2. O2 Frequency: Continuous Keep PO Greater than or Equal to (%): 90 Routine Lab Work: CBC and BMP Therapies Physical Therapy: Eval and Treat Occupational Therapy: Eval and Treat Problem/Diagnosis (1) Hypercarbia: Status: Acute Code(s): R06.89 - Other abnormalities of breathing Plan: acute on chronic hypercapneic failure secondary to COPD exacerbation, morbid obesity, obesity hypoventilation. Less likely pneumonia. Patient is typically on 2.5 L of oxygen, currently on BiPAP ABG shows pH of 7.22 with PCO2 94.2 Chest X-ray showed right-sided infiltrate with pleural effusion Admit to PCU, continue breathing treatments, IV Solu-Medrol, IV Levaquin Infectious work-up, including respiratory panel, Legionella and Streptococcus antigen, blood cultures and COVID-19 thus far negative. We will arrange for BiPAP at [facility]. Patient requires volume ventilation and all other alternative therapies, including bilevel, have been considered and ruled out due to the severity of the disease state, weak breathing muscles and potential life-threatening condition including CO2 retention probability of acute exacerbation, patient requires ventilation to be used during the day as needed, addition to every night usage with facemask. (2) Metabolic encephalopathy: Status: Acute Code(s): G93.41 - Metabolic encephalopathy Plan: Resolved 2/2 hypercapnia Plan Chronic conditions: * Obesity/Obesity hypoventilation syndrome. Outpatient obesity management recommended * Depression, continue Zoloft, amitryptiline * GERD, continue omeprazole DVT PPx- Lovenox BID Allergies/Procedures Done in Hospital Allergies aspirin Allergy (Verified 05/28/22 11:13) Other black pepper [pepper] Allergy (Verified 05/28/22 11:13) Other coconut Allergy (Verified 05/28/22 11:13) Other codeine Allergy (Verified 05/28/22 11:13) Other ibuprofen Allergy (Verified 05/28/22 11:13) Other Influenza Virus Vaccines Allergy (Verified 05/28/22 11:13) Other Penicillins Allergy (Verified 05/28/22 11:13) Anaphylaxis rice Allergy (Verified 05/28/22 11:13) Other tetanus and diphtheria toxoids Allergy (Verified 05/28/22 11:13) Other Tetanus Vaccines and Toxoid Allergy (Verified 05/28/22 11:13) Other Type of Care/Length of Stay Estimated LOS: More Than 30 Days Type of Care Needed: Intermediate Rehab Potential: Poor Prognosis: Poor Additional Orders/Day of Discharge Day of Discharge: 05/30/22 Dietary and Speech Recommendations Dietitian Recommendations/Changes: Will adjust diet to 1800 calorie/cardiac. Fluid restriction as indicated per physician. ONS not needed at this time, will offer if PO fails at meals. Discharge Plan Admission Admit Date/Time: 05/28/22 14:59 Primary Reason for Your Visit: acute on chronic hypercapnic respiratory failure. Attending Provider: Jayme Corea Primary Care Provider: Sepideh Patterson Consulting Providers: Joana Perez Discharge Orders/Prescriptions Prescriptions: New acetaminophen [Tylenol] 325 mg Tablet 650 mg PO Q6H PRN PRN (Reason: Pain 1-10 Or Fever>100.7) Qty: 0 0RF prednisone 20 mg tablet 40 mg PO DAILY 5 Days Qty: 10 0RF furosemide 40 mg tablet 40 mg PO DAILY Qty: 30 0RF Continued losartan 50 mg Tablet 50 mg PO DAILY cyclobenzaprine 10 mg Tablet 10 mg PO TID acetaminophen 325 mg Tablet 650 mg PO TID atorvastatin 20 mg Tablet 20 mg PO QHS lidocaine 4 % Adhesive Patch,Medicated 1 patch TOPICAL DAILY sertraline [Zoloft] 100 mg Tablet 100 mg PO QHS famotidine 20 mg Tablet 20 mg PO BID amitriptyline 25 mg Tablet 25 mg PO QODAY calcium polycarbophil [FiberCon] 625 mg Tablet 625 mg PO DAILY montelukast 10 mg Tablet 10 mg PO DAILY ergocalciferol (vitamin D2) [Vitamin D2] 1,250 mcg (50,000 unit) Capsule 1,250 mcg PO SA fluticasone propionate 50 mcg/actuation [place],Suspension 2 spray INTRANASAL BID omeprazole 20 mg Tablet,Delayed Release (Dr/Ec) 20 mg PO DAILY roflumilast [Daliresp] 500 mcg Tablet 500 mcg PO DAILY Spiriva Respimat 2.5 mcg/actuation Mist 2 puff INHALATION QHS guaifenesin [Mucinex] 600 mg Tablet Extended Release 12hr 600 mg PO BID sucralfate 1 gram Tablet 1 g PO TID@0700,1100,1600 Qty: 0 0RF dicyclomine 10 mg Capsule 10 mg PO 4X/DAY Qty: 1 0RF nystatin [Nyamyc] 100,000 unit/gram powder 1 applic topical TID Protocol: *Topical Application Instructions APPLICATION INSTRUCTIONS: affected areas potassium chloride 20 mEq Packet 20 meq PO DAILY gabapentin 300 mg Capsule 300 mg PO BID Referrals / Follow Up: Pulmonary Medicine [facility] [Provider Group] - Within 1 Month Sepideh Patterson MD [Primary Care Provider] - Within 2 Weeks Disposition Disposition (needs filled in before D/C Order can be placed): NonSkilled NH/Intermed Care
--- NOTE | 2022-05-30 14:20 | DS.PCM_ITS ---
Providers Date of Admission: 05/28/22 Primary Care Physician: Dr. Sepideh Patterson MD Reason For Visit: RESP FAILURE Diagnosis Discharge Diagnosis (1) Hypercarbia: Status: Acute Code(s): R06.89 - Other abnormalities of breathing Plan: acute on chronic hypercapneic failure secondary to COPD exacerbation, morbid o besity, obesity hypoventilation. Less likely pneumonia. Patient is typically on 2.5 L of oxygen, currently on BiPAP ABG shows pH of 7.22 with PCO2 94.2 Infectious work-up, including respiratory panel, Legionella and Streptococcus antigen, blood cultures and COVID-19 thus far negative. DC antibiotics Continue with furosemide daily. We will arrange for BiPAP at [facility]. Patient requires volume ventilation and all other alternative therapies, including bilevel, have been considered and ruled out due to the severity of the disease state, weak breathing muscles and potential life-threatening condition including CO2 retention probability of acute exacerbation, patient requires ventilation to be used during the day as needed, addition to every night usage with facemask. (2) Metabolic encephalopathy: Status: Acute Code(s): G93.41 - Metabolic encephalopathy Plan: Resolved 2/2 hypercapnia Plan Chronic conditions: * Obesity/Obesity hypoventilation syndrome. Outpatient obesity management rec ommended * Depression, continue Zoloft, amitryptiline * GERD, continue omeprazole DVT PPx- Lovenox BID Medications at Discharge Home Medications acetaminophen 325 mg tablet 650 mg PO TID PAIN 05/03/22 amitriptyline 25 mg tablet 25 mg PO QODAY DEPRESSION 05/03/22 atorvastatin 20 mg tablet 20 mg PO QHS CHOLESTEROL 05/03/22 calcium polycarbophil 625 mg tablet (FiberCon) 625 mg PO DAILY CONSTIPATION 05/03/22 cyclobenzaprine 10 mg tablet 10 mg PO TID MUSCLE SPASMS 05/03/22 ergocalciferol (vitamin D2) 1,250 mcg (50,000 unit) capsule (Vitamin D2) 1,250 mcg PO SA SUPPLEMENT 05/03/22 famotidine 20 mg tablet 20 mg PO BID GERD 05/03/22 fluticasone propionate 50 mcg/actuation nasal spray,suspension 2 spray intranasal BID NASAL CONGESTION 05/03/22 guaifenesin 600 mg tablet, extended release 12 hr (Mucinex) 600 mg PO BID CONGESTION 05/03/22 lidocaine 4 % topical patch 1 patch topical DAILY PAIN 05/03/22 losartan 50 mg tablet 50 mg PO DAILY BLOOD PRESSURE 05/03/22 montelukast 10 mg tablet 10 mg PO DAILY ALLERGIES 05/03/22 omeprazole 20 mg tablet,delayed release 20 mg PO DAILY GERD 05/03/22 roflumilast 500 mcg tablet (Daliresp) 500 mcg PO DAILY ASTHMA 05/03/22 sertraline 100 mg tablet (Zoloft) 100 mg PO QHS DEPRESSION 05/03/22 tiotropium bromide 2.5 mcg/actuation mist for inhalation (Spiriva Respimat) 2 puff inhalation QHS ASTHMA 05/03/22 dicyclomine 10 mg capsule 10 mg PO 4X/DAY #1 cap 05/05/22 sucralfate 1 gram tablet 1 g PO TID@0700,1100,1600 #0 tabs 05/05/22 nystatin 100,000 unit/gram topical powder (Nyamyc) 1 applic topical TID affected areas 05/14/22 gabapentin 300 mg capsule 300 mg PO BID NEUROPATHY 05/28/22 potassium chloride 20 mEq oral packet 20 meq PO DAILY SUPPLEMENT 05/28/22 acetaminophen 325 mg tablet (Tylenol) 650 mg PO Q6H PRN PRN Pain 1-10 Or Fever>100.7 #0 tabs 05/30/22 furosemide 40 mg tablet 40 mg PO DAILY #30 tabs 05/30/22 prednisone 20 mg tablet 40 mg PO DAILY 5 days #10 tabs 05/30/22 Hospital Course Operations None Procedures None Summary of Care Provided Minutes Spent on Discharge: 32 Weight / BMI Weight Weight: 165.3 kg Body Mass Index (BMI) 58.8 ABG / Lab / Microbiology Data Result Diagrams: 05/29/22 05:04 05/29/22 05:04 Microbiology: Microbiology 05/28/22 11:59 Blood Culture (Wb) - Right Hand Blood Culture - Preliminary No growth in 48 hours. 05/28/22 11:23 Blood Culture (Wb) - Right Hand Blood Culture - Preliminary No growth in 48 hours. 05/28/22 13:46 Urine, Clean Catch Legionella Antigen - Final 05/28/22 13:46 Urine, Clean Catch Streptococcus pneumoniae Antigen (M - Final 05/28/22 20:08 Mucosa - Nasopharyngeal Respiratory Panel (PCR) - Final 05/28/22 11:43 Nasal Secretion SARS-CoV-2 & FLU Antigen (Rapid) - Final Meaningful Use Info Meaningful Use Diagnoses (Choose all that apply): None applicable Discharge Plan Admission Admit Date/Time: 05/28/22 14:59 Primary Reason for Your Visit: acute on chronic hypercapnic respiratory failure. Attending Provider: Jayme Corea Primary Care Provider: Sepideh Patterson Consulting Providers: Joana Perez Discharge Orders/Prescriptions Prescriptions: New acetaminophen [Tylenol] 325 mg Tablet 650 mg PO Q6H PRN PRN (Reason: Pain 1-10 Or Fever>100.7) Qty: 0 0RF prednisone 20 mg tablet 40 mg PO DAILY 5 Days Qty: 10 0RF furosemide 40 mg tablet 40 mg PO DAILY Qty: 30 0RF Continued losartan 50 mg Tablet 50 mg PO DAILY cyclobenzaprine 10 mg Tablet 10 mg PO TID acetaminophen 325 mg Tablet 650 mg PO TID atorvastatin 20 mg Tablet 20 mg PO QHS lidocaine 4 % Adhesive Patch,Medicated 1 patch TOPICAL DAILY sertraline [Zoloft] 100 mg Tablet 100 mg PO QHS famotidine 20 mg Tablet 20 mg PO BID amitriptyline 25 mg Tablet 25 mg PO QODAY calcium polycarbophil [FiberCon] 625 mg Tablet 625 mg PO DAILY montelukast 10 mg Tablet 10 mg PO DAILY ergocalciferol (vitamin D2) [Vitamin D2] 1,250 mcg (50,000 unit) Capsule 1,250 mcg PO SA fluticasone propionate 50 mcg/actuation [place],Suspension 2 spray INTRANASAL BID omeprazole 20 mg Tablet,Delayed Release (Dr/Ec) 20 mg PO DAILY roflumilast [Daliresp] 500 mcg Tablet 500 mcg PO DAILY Spiriva Respimat 2.5 mcg/actuation Mist 2 puff INHALATION QHS guaifenesin [Mucinex] 600 mg Tablet Extended Release 12hr 600 mg PO BID sucralfate 1 gram Tablet 1 g PO TID@0700,1100,1600 Qty: 0 0RF dicyclomine 10 mg Capsule 10 mg PO 4X/DAY Qty: 1 0RF nystatin [Nyamyc] 100,000 unit/gram powder 1 applic topical TID Protocol: *Topical Application Instructions APPLICATION INSTRUCTIONS: affected areas potassium chloride 20 mEq Packet 20 meq PO DAILY gabapentin 300 mg Capsule 300 mg PO BID Referrals / Follow Up: [facility] [place] [Provider Group] - Within 1 Month Sepideh Patterson MD [Primary Care Provider] - Within 2 Weeks Disposition Disposition (needs filled in before D/C Order can be placed): NonSkilled NH/Intermed Care Charges/Coding Visit Charges Inpatient E&M: 50681 Disch Hosp >30min
--- NOTE | 2022-05-30 14:32 | PHA.DC.MR ---
Pharmacy Service has performed discharge medication reconciliation for this patient. The patient's discharge medication list was reviewed for discrepancies and discrepancies were resolved. Home Medications acetaminophen 325 mg tablet 650 mg PO TID PAIN 05/03/22 amitriptyline 25 mg tablet 25 mg PO QODAY DEPRESSION 05/03/22 atorvastatin 20 mg tablet 20 mg PO QHS CHOLESTEROL 05/03/22 calcium polycarbophil 625 mg tablet (FiberCon) 625 mg PO DAILY CONSTIPATION 05/03/22 cyclobenzaprine 10 mg tablet 10 mg PO TID MUSCLE SPASMS 05/03/22 ergocalciferol (vitamin D2) 1,250 mcg (50,000 unit) capsule (Vitamin D2) 1,250 mcg PO SA SUPPLEMENT 05/03/22 famotidine 20 mg tablet 20 mg PO BID GERD 05/03/22 fluticasone propionate 50 mcg/actuation nasal spray,suspension 2 spray intranasal BID NASAL CONGESTION 05/03/22 guaifenesin 600 mg tablet, extended release 12 hr (Mucinex) 600 mg PO BID CONGESTION 05/03/22 lidocaine 4 % topical patch 1 patch topical DAILY PAIN 05/03/22 losartan 50 mg tablet 50 mg PO DAILY BLOOD PRESSURE 05/03/22 montelukast 10 mg tablet 10 mg PO DAILY ALLERGIES 05/03/22 omeprazole 20 mg tablet,delayed release 20 mg PO DAILY GERD 05/03/22 roflumilast 500 mcg tablet (Daliresp) 500 mcg PO DAILY ASTHMA 05/03/22 sertraline 100 mg tablet (Zoloft) 100 mg PO QHS DEPRESSION 05/03/22 tiotropium bromide 2.5 mcg/actuation mist for inhalation (Spiriva Respimat) 2 puff inhalation QHS ASTHMA 05/03/22 dicyclomine 10 mg capsule 10 mg PO 4X/DAY #1 cap 05/05/22 sucralfate 1 gram tablet 1 g PO TID@0700,1100,1600 #0 tabs 05/05/22 nystatin 100,000 unit/gram topical powder (Nyamyc) 1 applic topical TID affected areas 05/14/22 gabapentin 300 mg capsule 300 mg PO BID NEUROPATHY 05/28/22 potassium chloride 20 mEq oral packet 20 meq PO DAILY SUPPLEMENT 05/28/22 acetaminophen 325 mg tablet (Tylenol) 650 mg PO Q6H PRN PRN Pain 1-10 Or Fever>100.7 #0 tabs 05/30/22 furosemide 40 mg tablet 40 mg PO DAILY #30 tabs 05/30/22 prednisone 20 mg tablet 40 mg PO DAILY 5 days #10 tabs 05/30/22
--- NOTE | 2022-05-30 14:38 | CASEMGMT ---
Addendum entered by Sheeba Lucio 05/30/22 14:58: SW notified RN and patient. Sheeba GENAO Original Note: SW sent d/c orders to [facility] via [facility]. SW called Physicians and arranged for patient to get picked up at [facility] via cot. SW notified construction secretary and [facility] via [employer]. SW will also let RN know as well as patient. Plan: d/c back to [facility] under intermediate level of care. Physicians will transport via cot. Sheeba GENAO
[2022-05-30] MEDS: Ipratropium/Albuterol Sulfate 3 ML AMPUL.NEB INHALATION (15:12)
--- NOTE | 2022-05-30 16:31 | CHAPLAIN ---
Type of Pastoral Visit _x__ Initial Visit ___ Follow-up Visit ___ On-call Visit ___ General Patient Visit ___ Spiritual Assessment ___ Family Conference ___ Bereavement ___ Rapid Response ___ Code Blue ___ Other (describe below) Pastoral Care Referral From _x__ Patient ___ Family ___ Nurse ___ Physician ___ Feeder Worker Power Unit Operator ___ Paper Pattern Inspector ___ Other (describe below) Sacrament/Intervention _x__ Active listening ___ Anointing ___ Religion ___ Bereavement ___ Communion ___ Dagmar exploration ___ _x__ Life review _x__ Prayer ___ Reconciliation ___ Sacrament of Sick _x__ Supportive presence ___ Wedding ___ Other (describe below) Pastoral Comments patient is talkative and welcoming of support; pt reports she is going back to [facility] and is thankful for same; pt reports that she has had great care and good attention from the staff here; pt is thankful for support she receives from a boyfriend and the roomate at [facility]; pt talks about her hopes to go to her personal home again and asks for prayer for her legs to work again
== END 2022-05-30 19:24 | disposition intermediate care facility (04) | DRG 190 ==
LOC: ED 15:00 → PCU 15:51
PROVIDERS: Admitting Provider Internal Medicine; Emergency Provider Emergency Medicine; PCP Internal Medicine
DX: J44.1 Chronic obstructive pulmonary disease with (acute) exacerbation (principal); G93.41 Metabolic encephalopathy; J96.22 Acute and chronic respiratory failure with hypercapnia; I50.22 Chronic systolic (congestive) heart failure; E66.2 Morbid (severe) obesity with alveolar hypoventilation; Z68.43 Body mass index [BMI] 50.0-59.9, adult; J90 Pleural effusion, not elsewhere classified; E87.29 Other acidosis; I11.0 Hypertensive heart disease with heart failure; E78.5 Hyperlipidemia, unspecified; M79.7 Fibromyalgia; K21.9 Gastro-esophageal reflux disease without esophagitis; Z87.891 Personal history of nicotine dependence; M62.81 Muscle weakness (generalized); F32.A Depression, unspecified
CPT/HCPCS: 36415; 36600; 51702; 71045; 80048; 80053; 81001; 82803; 83605; 83880; 84484; 85025; 85610; 85730; 87040; 87428; 87449; 87633; 93005; 94002; 94003; 94640; 94762; 97802; 99285; J7030; A4216; J1940

== ENCOUNTER → 2022-05-31 | Outpatient (REF) | payer MEDICARE, MEDICAID, SELFPAY ==
[2022-05-31 09:25] LABS: Hematocrit 32.6 % (37-47); Hemoglobin 9.9 g/dL (12.0-15.0); Mean Corp Hgb Conc 30.4 g/dL (32-36); Mean Corpuscular Hgb 27.1 pg (27.0-32.0); Mean Corpuscular Volume 89.3 fL (81-99); Mean Platelet Vol. 11.4 fl (6.2-12.0); Platelet Count 307 K/mm3 (150-450); RBC Distribution Width CV 14.1 % (11.6-14.6); RBC Distribution Width SD 46.1 fl (35.1-43.9); Red Blood Count 3.65 M/mm3 (4.2-5.4); White Blood Count 18.3 K/mm3 (4.4-11.0)
[2022-05-31 09:37] LABS: Anion Gap 6 (5-15); BUN 31 mg/dL (7-18); BUN/Creat Ratio 32.6 RATIO (10-20); Calcium,Total 10.1 mg/dL (8.5-10.1); Chloride 96 mmol/L (98-107); Creatinine, Serum 0.95 mg/dL (0.55-1.02); EST Glomerular Filtration Rate 64 mL/min (>60); Est Glom Filt Rate - Afr Amer 77 mL/min (>60); Glucose 93 mg/dL (74-106); Potassium 4.1 mmol/L (3.5-5.1); Sodium Level 138 mmol/L (136-145)
== END ==
LOC: OLS.SW 05:00
PROVIDERS: PCP Internal Medicine; Visit Provider Internal Medicine
DX: J44.9 Chronic obstructive pulmonary disease, unspecified (principal)
CPT/HCPCS: 36415; 80048; 85027

== ENCOUNTER → 2022-06-02 | Outpatient (REF) | payer MEDICARE, MEDICAID, SELFPAY | LOC: OLS.SW 12:31 | PROVIDERS: PCP Internal Medicine; Visit Provider Internal Medicine | DX: A04.71 Enterocolitis due to Clostridium difficile, recurrent (principal) | CPT/HCPCS: 87493 ==

== ENCOUNTER → 2022-06-06 | Outpatient (REF) | payer MEDICARE, MEDICAID, SELFPAY ==
[2022-06-06 08:34] LABS: Anion Gap 2 (5-15); BUN 27 mg/dL (7-18); BUN/Creat Ratio 47.8 RATIO (10-20); Calcium,Total 9.3 mg/dL (8.5-10.1); Chloride 95 mmol/L (98-107); Creatinine, Serum 0.56 mg/dL (0.55-1.02); EST Glomerular Filtration Rate 116 mL/min (>60); Est Glom Filt Rate - Afr Amer 140 mL/min (>60); Glucose 78 mg/dL (74-106); Potassium 3.5 mmol/L (3.5-5.1); Sodium Level 138 mmol/L (136-145)
[2022-06-06 08:38] LABS: Hematocrit 35.4 % (37-47); Hemoglobin 10.7 g/dL (12.0-15.0); Mean Corp Hgb Conc 30.2 g/dL (32-36); Mean Corpuscular Hgb 27.2 pg (27.0-32.0); Mean Corpuscular Volume 89.8 fL (81-99); Mean Platelet Vol. 10.9 fl (6.2-12.0); POSITIVE COUNT YES; POSITIVE MORPHOLOGY YES; Platelet Count 278 K/mm3 (150-450); RBC Distribution Width CV 13.7 % (11.6-14.6); RBC Distribution Width SD 44.7 fl (35.1-43.9); Red Blood Count 3.94 M/mm3 (4.2-5.4); White Blood Count 20.4 K/mm3 (4.4-11.0)
[2022-06-06 08:41] LABS: Differential Indicated MANUAL DIFF
[2022-06-06 09:16] LABS: Eosinophil 1 % (0-5); Lymphocyte 23 % (19-41); Metamyelocyte 2 % (0-1); Monocyte 10 % (0-10); Myelocyte 1 % (0-0); Neutrophil-Segmented 63 % (47-70); Total Cells Counted 100 (MANUAL DIFF)
[2022-06-06 09:17] LABS: Absolute Lymphocyte Count 4.69 X10^3/uL (0.83-4.51); Absolute Neutrophil Count 12.9 X10^3/uL (2.0-7.7); Lymphocyte # 4.69 X10^3/ul (0.83-4.51); Neutrophil # 12.87 X10^3/uL (2.7-7.7); Platelet Estimate ADEQUATE (ADEQ); Red Cell Morphology NORM C+C NORMAL (NORM C&C)
[2022-06-08 09:16] LABS: Pathologist Review Reviewed
== END ==
LOC: OLS.SW 05:00
PROVIDERS: PCP Internal Medicine; Referring Provider Internal Medicine; Visit Provider Internal Medicine
DX: J44.9 Chronic obstructive pulmonary disease, unspecified (principal); I10 Essential (primary) hypertension; N17.9 Acute kidney failure, unspecified
CPT/HCPCS: 36415; 80048; 85025

== ENCOUNTER → 2022-06-09 | Outpatient (REF) | payer MEDICARE, MEDICAID, SELFPAY ==
[2022-06-09 07:58] LABS: Hematocrit 37.8 % (37-47); Hemoglobin 11.2 g/dL (12.0-15.0); Mean Corp Hgb Conc 29.6 g/dL (32-36); Mean Corpuscular Hgb 26.7 pg (27.0-32.0); Mean Corpuscular Volume 90.2 fL (81-99); Mean Platelet Vol. 10.5 fl (6.2-12.0); POSITIVE COUNT YES; POSITIVE MORPHOLOGY YES; Platelet Count 296 K/mm3 (150-450); RBC Distribution Width CV 13.6 % (11.6-14.6); RBC Distribution Width SD 44.5 fl (35.1-43.9); Red Blood Count 4.19 M/mm3 (4.2-5.4); White Blood Count 19.7 K/mm3 (4.4-11.0)
[2022-06-09 08:02] LABS: Differential Indicated MANUAL DIFF
[2022-06-09 08:51] LABS: Eosinophil 1 % (0-5); Lymphocyte 16 % (19-41); Monocyte 5 % (0-10); Myelocyte 4 % (0-0); Neutrophil-Band 1 % (0-5); Neutrophil-Segmented 73 % (47-70); Total Cells Counted 100 (MANUAL DIFF)
[2022-06-09 08:52] LABS: Platelet Estimate ADEQUATE (ADEQ); Red Cell Morphology NORM C+C NORMAL (NORM C&C)
[2022-06-09 08:55] LABS: Absolute Lymphocyte Count 3.15 X10^3/uL (0.83-4.51); Absolute Neutrophil Count 14.6 X10^3/uL (2.0-7.7)
[2022-06-12 12:59] LABS: Pathologist Review Reviewed
== END ==
LOC: OLS.SW 05:00
PROVIDERS: PCP Internal Medicine; Visit Provider Internal Medicine
DX: A04.72 Enterocolitis due to Clostridium difficile, not specified as recurrent (principal); K58.0 Irritable bowel syndrome with diarrhea
CPT/HCPCS: 36415; 85025

== ENCOUNTER → 2022-06-19 | Outpatient (REF) | payer MEDICARE, MEDICAID, SELFPAY ==
[2022-06-19 07:57] LABS: Absolute Lymphocyte Count 2.84 X10^3/uL (0.83-4.51); Absolute Neutrophil Count 5.5 X10^3/uL (2.0-7.7); Basophil# 0.03 X10^3/uL; Basophil% 0.3 % (0-1); Eosinophil# 0.16 X10^3/uL; Eosinophils% 1.7 % (0-5); Hematocrit 37.5 % (37-47); Hemoglobin 10.7 g/dL (12.0-15.0); Lymphocyte # 2.84 X10^3/ul (0.83-4.51); Lymphocyte % 29.9 % (19-41); Mean Corp Hgb Conc 28.5 g/dL (32-36); Mean Corpuscular Hgb 26.8 pg (27.0-32.0); Mean Corpuscular Volume 93.8 fL (81-99); Mean Platelet Vol. 10.9 fl (6.2-12.0); Monocyte# 0.84 X10^3/uL; Monocyte% 8.9 % (0-10); NRBC Flagged by Analyzer 0 % (0-5); Neutrophil # 5.49 X10^3/uL (2.7-7.7); Neutrophil % 57.8 % (47-70); Platelet Count 224 K/mm3 (150-450); RBC Distribution Width CV 14.6 % (11.6-14.6); RBC Distribution Width SD 50.2 fl (35.1-43.9); White Blood Count 9.5 K/mm3 (4.4-11.0)
[2022-06-19 08:26] LABS: Anion Gap 6 (5-15); BUN 24 mg/dL (7-18); BUN/Creat Ratio 44.9 RATIO (10-20); CRP 6.25 mg/L (0.0-3.0); Calcium,Total 9.5 mg/dL (8.5-10.1); Chloride 92 mmol/L (98-107); Creatinine, Serum 0.54 mg/dL (0.55-1.02); EST Glomerular Filtration Rate 123 mL/min (>60); Est Glom Filt Rate - Afr Amer 149 mL/min (>60); Glucose 96 mg/dL (74-106); Sodium Level 138 mmol/L (136-145)
== END ==
LOC: OLS.SW 05:00
PROVIDERS: PCP Internal Medicine; Visit Provider Internal Medicine
DX: J44.9 Chronic obstructive pulmonary disease, unspecified (principal); A04.72 Enterocolitis due to Clostridium difficile, not specified as recurrent; F41.9 Anxiety disorder, unspecified
CPT/HCPCS: 36415; 80048; 85025; 86140

== ENCOUNTER → 2022-06-21 | Outpatient (REF) | payer MEDICARE, MEDICAID, SELFPAY ==
[2022-06-21 08:00] LABS: Absolute Lymphocyte Count 2.62 X10^3/uL (0.83-4.51); Absolute Neutrophil Count 4.7 X10^3/uL (2.0-7.7); Basophil# 0.04 X10^3/uL; Basophil% 0.5 % (0-1); Eosinophil# 0.22 X10^3/uL; Eosinophils% 2.6 % (0-5); Hematocrit 37.5 % (37-47); Lymphocyte # 2.62 X10^3/ul (0.83-4.51); Mean Corp Hgb Conc 29.3 g/dL (32-36); Mean Corpuscular Hgb 27.5 pg (27.0-32.0); Mean Corpuscular Volume 93.8 fL (81-99); Mean Platelet Vol. 10.6 fl (6.2-12.0); Monocyte# 0.79 X10^3/uL; Monocyte% 9.3 % (0-10); NRBC Flagged by Analyzer 0 % (0-5); Neutrophil # 4.67 X10^3/uL (2.7-7.7); Neutrophil % 55.3 % (47-70); Platelet Count 218 K/mm3 (150-450); RBC Distribution Width CV 14.9 % (11.6-14.6); RBC Distribution Width SD 51.7 fl (35.1-43.9); White Blood Count 8.5 K/mm3 (4.4-11.0)
[2022-06-21 08:05] LABS: Anion Gap 6 (5-15); BUN 20 mg/dL (7-18); BUN/Creat Ratio 35.5 RATIO (10-20); Calcium,Total 9.7 mg/dL (8.5-10.1); Chloride 91 mmol/L (98-107); Creatinine, Serum 0.56 mg/dL (0.55-1.02); EST Glomerular Filtration Rate 116 mL/min (>60); Est Glom Filt Rate - Afr Amer 141 mL/min (>60); Glucose 96 mg/dL (74-106); Potassium 3.9 mmol/L (3.5-5.1); Sodium Level 137 mmol/L (136-145)
== END ==
LOC: OLS.SW 06:05
PROVIDERS: PCP Internal Medicine; Visit Provider Internal Medicine
DX: J44.9 Chronic obstructive pulmonary disease, unspecified (principal); I10 Essential (primary) hypertension; G93.41 Metabolic encephalopathy
CPT/HCPCS: 36415; 80048; 85025; 86140

== ENCOUNTER → 2022-07-26 | Outpatient (REF) | payer MEDICARE, MEDICAID, SELFPAY ==
[2022-07-26 07:50] LABS: Anion Gap 1 (5-15); BUN 17 mg/dL (7-18); BUN/Creat Ratio 31.6 RATIO (10-20); Calcium,Total 9.7 mg/dL (8.5-10.1); Chloride 94 mmol/L (98-107); Creatinine, Serum 0.54 mg/dL (0.55-1.02); EST Glomerular Filtration Rate 123 mL/min (>60); Est Glom Filt Rate - Afr Amer 148 mL/min (>60); Glucose 104 mg/dL (74-106); Sodium Level 136 mmol/L (136-145)
[2022-07-26 08:22] LABS: Vitamin D,25 Hydroxy 34.3 ng/mL
[2022-07-26 08:26] LABS: BNP,B-Type NATRIURETIC PEPTIDE 5.9 pg/mL (0-100)
== END ==
LOC: OLS.SW 05:00
PROVIDERS: PCP Internal Medicine; Visit Provider Internal Medicine
DX: I50.20 Unspecified systolic (congestive) heart failure (principal); E55.9 Vitamin D deficiency, unspecified
CPT/HCPCS: 36415; 80048; 82306; 83880

== ENCOUNTER 2022-09-08 00:02 | Inpatient (IN) | payer MEDICARE, MEDICAID, SELFPAY ==
[2022-09-08] VITALS (29 sets, daily range): BP systolic 78–157; BP diastolic 42–109; PULSE 68–116; RESP 15–28; TEMP 36.2–37.2; O2SAT 88–100; BMI 61.5; BMI 63.0
--- NOTE | 2022-09-08 00:20 | EDS_ITS ---
HPI History of Present Illness Chief Complaint: Shortness of Breath Detail of Chief Complaint: Twitching Informant: patient Narrative Narrative: Patient presents to the emergency department with a generalized shaking or twitching has been going on for 2 days. Patient states she has had it before months ago. She was also sent in because her O2 sats been in the 70s despite being on 4 L of O2. Patient denies any chest pain or shortness of breath. She denies fever or cough. Patient is at a extended care facility currently. She does not ambulate she had a fractured right ankle in March of last year. No history of PE or DVT. [facility] Medical History Acute kidney failure with tubular necrosis Chronic anemia Chronic pain Chronic respiratory failure with hypoxia COPD (chronic obstructive pulmonary disease) Depression Fibromyalgia GERD (gastroesophageal reflux disease) HFrEF (heart failure with reduced ejection fraction) HTN (hypertension) Hyperlipidemia Morbid obesity Obesity hypoventilation syndrome MARISOL (obstructive sleep apnea) Peptic ulcer disease Personal history of transient ischemic attack (TIA), and cerebral infarction without residual deficits Seasonal allergies TIA (transient ischemic attack) UTI (urinary tract infection) Vitamin D deficiency Home Medications acetaminophen 325 mg tablet 650 mg PO TID PAIN 05/03/22 [History Last Taken 05/28/22] amitriptyline 25 mg tablet 25 mg PO QODAY DEPRESSION 05/03/22 [History Last Taken 05/26/22] atorvastatin 20 mg tablet 20 mg PO QHS CHOLESTEROL 05/03/22 [History Last Taken 05/27/22] calcium polycarbophil 625 mg tablet (FiberCon) 625 mg PO DAILY CONSTIPATION 05/03/22 [History Last Taken 05/28/22] cyclobenzaprine 10 mg tablet 10 mg PO TID MUSCLE SPASMS 05/03/22 [History Last Taken 05/28/22] ergocalciferol (vitamin D2) 1,250 mcg (50,000 unit) capsule (Vitamin D2) 1,250 mcg PO SA SUPPLEMENT 05/03/22 [History Last Taken 05/27/22] famotidine 20 mg tablet 20 mg PO BID GERD 05/03/22 [History Last Taken 05/28/22] fluticasone propionate 50 mcg/actuation nasal spray,suspension 2 spray intranasal BID NASAL CONGESTION 05/03/22 [History Last Taken 05/28/22] guaifenesin 600 mg tablet, extended release 12 hr (Mucinex) 600 mg PO BID CONGESTION 05/03/22 [History Last Taken 05/28/22] lidocaine 4 % topical patch 1 patch topical DAILY PAIN 05/03/22 [History Last Taken 05/28/22] losartan 50 mg tablet 50 mg PO DAILY BLOOD PRESSURE 05/03/22 [History Last Taken 05/28/22] montelukast 10 mg tablet 10 mg PO DAILY ALLERGIES 05/03/22 [History Last Taken 05/28/22] omeprazole 20 mg tablet,delayed release 20 mg PO DAILY GERD 05/03/22 [History Last Taken 05/28/22] roflumilast 500 mcg tablet (Daliresp) 500 mcg PO DAILY ASTHMA 05/03/22 [History Last Taken 05/28/22] sertraline 100 mg tablet (Zoloft) 100 mg PO QHS DEPRESSION 05/03/22 [History Last Taken 05/27/22] tiotropium bromide 2.5 mcg/actuation mist for inhalation (Spiriva Respimat) 2 puff inhalation QHS ASTHMA 05/03/22 [History Last Taken 05/27/22] dicyclomine 10 mg capsule 10 mg PO 4X/DAY #1 cap 05/05/22 [Rx Last Taken 05/28/22] sucralfate 1 gram tablet 1 g PO TID@0700,1100,1600 #0 tabs 05/05/22 [Rx Last Taken 05/28/22] nystatin 100,000 unit/gram topical powder (Nyamyc) 1 applic topical TID affected areas 05/14/22 [History Last Taken 05/28/22] gabapentin 300 mg capsule 300 mg PO BID NEUROPATHY 05/28/22 [History Last Taken 05/28/22] potassium chloride 20 mEq oral packet 20 meq PO DAILY SUPPLEMENT 05/28/22 [History Last Taken 05/28/22] acetaminophen 325 mg tablet (Tylenol) 650 mg PO Q6H PRN PRN Pain 1-10 Or Fever>100.7 #0 tabs 05/30/22 [Rx Last Taken Unknown] furosemide 40 mg tablet 40 mg PO DAILY #30 tabs 05/30/22 [Rx Last Taken Unknown] prednisone 20 mg tablet 40 mg PO DAILY 5 days #10 tabs 05/30/22 [Rx Last Taken Unknown] Allergy/AdvReac Type Severity Reaction Status Date / Time aspirin Allergy Other Verified 09/08/22 00:15 black pepper [pepper] Allergy Other Verified 09/08/22 00:15 coconut Allergy Other Verified 09/08/22 00:15 codeine Allergy Other Verified 09/08/22 00:15 ibuprofen Allergy Other Verified 09/08/22 00:15 Influenza Virus Vaccines Allergy Other Verified 09/08/22 00:15 Penicillins Allergy Anaphylaxis Verified 09/08/22 00:15 rice Allergy Other Verified 09/08/22 00:15 tetanus and diphtheria Allergy Other Verified 09/08/22 00:15 toxoids Tetanus Vaccines and Toxoid Allergy Other Verified 09/08/22 00:15 Family History Other CAD (coronary artery disease) COPD (chronic obstructive pulmonary disease) Hypertension Social History housing: [facility] Smoking Status: Former smoker alcohol intake: never substance use type: does not use ROS ROS ED Review of Systems ROS Unobtainable: other Constitutional Constitutional ED: Reports lethargy; Denies chills, fever(s), sweats or weight loss Eyes Eyes: Denies blurry vision, change in vision or diplopia ENT ENT ED: Denies rhinorrhea or sore throat Cardiovascular Cardiovascular: Denies chest pain, orthopnea or racing heartbeat Respiratory/Chest Respiratory/Chest: Denies cough, dyspnea, dyspnea on exertion, orthopnea or sputum Gastrointestinal Gastrointestinal: Denies abdominal pain, diarrhea, nausea or vomiting Genitourinary Genitourinary ED: Denies dysuria, hematuria or urinary frequency Musculoskeletal Musculoskeletal: Denies arthralgias, back pain, myalgias or neck pain Integumentary Denies abscess, Abrasions or rash Neurologic Neurologic: Reports other Details: Shaking/twitching ; Denies headache(s) or weakness Psychiatric Psychiatric: Denies anxiety, depression or suicidal thoughts Endocrine Endocrinology: Denies polydipsia, polyphagia or polyuria Hematologic/Lymphatic Hematologic/Lymphatic: Denies easy bleeding, easy bruising or lymphadenopathy Allergic/Immunologic Allergic/Immunologic ED: Denies mouth swelling, tongue swelling or urticaria EXAM Physical Exam Const Vital Signs: 09/08/22 00:03 09/08/22 00:10 09/08/22 01:39 Temperature 97.4 F L Temperature Source Temporal Pulse Rate 107 H 104 H Respiratory Rate 20 H 17 Respiratory Effort Short of Breath Respiratory Depth Normal Respiratory Pattern Normal Blood Pressure 157/102 H Blood Pressure Mean 120 Pulse Ox 91 94 Oxygen Delivery Method Nasal Cannula Nasal Cannula Nasal Cannula Oxygen Flow Rate (L/min) 4 4 4 09/08/22 01:52 Temperature 97.4 F L Temperature Source Temporal Pulse Rate 102 H Respiratory Rate 18 Respiratory Effort Respiratory Depth Respiratory Pattern Blood Pressure 117/105 H Blood Pressure Mean 109 Pulse Ox 95 Oxygen Delivery Method Nasal Cannula Oxygen Flow Rate (L/min) 4 Positive well nourished and well developed General Appearance ED: well developed and NAD HEENT Reports TM's clear and moist mucous membranes normocephalic and atraumatic; Negative for trauma or tenderness Tympanic Membrane ED: Yes TM's clear Eyes PERRL and EOMs intact bilaterally General Eye ED: Negative for pale conjunctiva or scleral icterus Neck no lymphadenopathy, supple and no JVD General: Negative for tenderness Chest Wall inspection of chest normal and palpation of chest normal Chest: Negative for tenderness Resp normal respiratory effort and clear to auscultation bilaterally Effort and Inspection: Negative for respiratory distress or pain with movement Auscultation: Negative for rhonchi, wheezes or diminished lung sounds Cardio regular rate, regular rhythm, S1 normal heart sound, S2 normal heart sound and no murmurs Peripheral Pulses: pulses 2+ throughout GI normal to inspection, nondistended, normoactive bowel sounds, soft to palpation, non-tender, non-distended and no masses Back/Spine no CVA tenderness and no thoracic nor lumbar tenderness Extremity normal to inspection General Extremety ED: Negative for edema General Extremity: Negative for edema Neuro oriented x3, CN's II-XII intact bilaterally, no sensory deficits noted and gait normal Sensorium / Orientation: awake, alert, oriented to person, oriented to place and oriented to time Motor Exam: strength 5/5 throughout and strength abnormal Psych mental status grossly normal Skin no rashes or lesions noted and no wounds MDM MDM MDM Narrative Medical decision making narrative: Patient presents with intermittent shaking and twitching. There was concern about hypoxemia despite being on 4 L of O2. She does have history of chronic respiratory failure as well as COPD and history of CHF. In the differential would be hypoxemia related to CHF or COPD or pneumonia. Entertain possibility of pulmonary embolism. IV line established on arrival. Patient does have cool fingertips and pulse ox at times picks up with good waveform and she is in the mid 90s O2 sat however at times the pulse ox does not greens picker well. She is mentating normally. CBC with differential obtained showed a white count of 12.2 and hemoglobin of 10.5 and platelet count of 235. Chemistries were unrema rkable. BUN was 28 and creatinine 1.47 which is a significant departure from prior visit. Troponin was normal. BNP was normal at 8.1. D-dimer was normal. Urinalysis positive for UTI. Lactate was normal. Patient was started on Rocephin 1 g IV. Urine culture was sent. Blood cultures also ordered. I ordered an ABG however patient very difficult stick and respiratory unable to obtain. We were able to do a VBG which showed a pH of 7.3 and a CO2 of 97 with a bicarb of 49.7. Case will be discussed with hospitalist to evaluate for admission for UTI and acute kidney injury and dehydration. Patient still with some mild tachycardia and clinical signs of dehydration. Lab Data Attestation: I reviewed the patient's lab results. Labs: Laboratory Results - last 24 hr 09/08/22 09/08/22 09/08/22 00:48 00:48 00:48 WBC 12.2 H RBC 3.80 L Hgb 10.5 L Hct 36.0 L MCV 94.7 MCH 27.6 MCHC 29.2 L RDW Std Deviation 49.4 H RDW Coeff of David 14.1 Plt Count 235 MPV 11.1 Immature Gran % (Auto) 0.900 Neut % (Auto) 75.3 H Lymph % (Auto) 15.7 L Bell % (Auto) 6.6 Eos % (Auto) 1.3 Baso % (Auto) 0.2 Absolute Neuts (auto) 9.2 H Absolute Lymphs (auto) 1.91 Nucleated RBC % 0 D-Dimer Quant (PE/DVT) Sodium 138 Potassium 4.3 Chloride 91 L Carbon Dioxide 44.0 H Anion Gap 3 L BUN 28 H Creatinine 1.47 H Estim Creat Clear Calc 38.10 Est GFR (MDRD) Af Amer 47 L Est GFR (MDRD) Non-Af 38 L BUN/Creatinine Ratio 19.0 Glucose 145 H Lactic Acid Calcium 10.5 H Troponin I High Sens 14 B-Natriuretic Peptide 8.1 Urine Color Urine Clarity Urine pH Ur Specific [place] Urine Protein Urine Glucose (UA) Urine Ketones Urine Occult Blood Urine Nitrite Urine Bilirubin Urine Urobilinogen Ur Leukocyte Esterase Urine RBC Urine WBC Ur Squamous Epith Cells Urine Bacteria Urine Mucus 09/08/22 09/08/22 09/08/22 00:48 01:05 01:50 WBC RBC Hgb Hct MCV MCH MCHC RDW Std Deviation RDW Coeff of David Plt Count MPV Immature Gran % (Auto) Neut % (Auto) Lymph % (Auto) Bell % (Auto) Eos % (Auto) Baso % (Auto) Absolute Neuts (auto) Absolute Lymphs (auto) Nucleated RBC % D-Dimer Quant (PE/DVT) 0.36 Sodium Potassium Chloride Carbon Dioxide Anion Gap BUN Creatinine Estim Creat Clear Calc Est GFR (MDRD) Af Amer Est GFR (MDRD) Non-Af BUN/Creatinine Ratio Glucose Lactic Acid 1.4 Calcium Troponin I High Sens B-Natriuretic Peptide Urine Color Yellow Urine Clarity Turbid Urine pH 5.0 Ur Specific [place] 1.020 Urine Protein 100 H Urine Glucose (UA) Normal Urine Ketones Negative Urine Occult Blood 150 H Urine Nitrite Negative Urine Bilirubin Negative Urine Urobilinogen Normal Ur Leukocyte Esterase 500 H Urine RBC 0 SEEN Urine WBC >100 SEEN Ur Squamous Epith Cells 0 SEEN Urine Bacteria 4+ Urine Mucus 0 SEEN Radiography Diagnostic Testin view chest x-ray obtained interpreted by myself as technically difficult study as patient rotated however when compared with prior EKG had not appreciate any obvious infiltrate or acute process. Official report from radiology pending Discharge Plan Triage Chief Complaint: Shortness of Breath ED Provider: Sarah Bonilla Dx/Rx/DC Orders Clinical Impression: UTI (urinary tract infection), Acute kidney injury, Leukocytosis, Chronic respiratory failure Prescriptions: No Action losartan 50 mg Tablet 50 mg PO DAILY cyclobenzaprine 10 mg Tablet 10 mg PO TID acetaminophen 325 mg Tablet 650 mg PO TID atorvastatin 20 mg Tablet 20 mg PO QHS lidocaine 4 % Adhesive Patch,Medicated 1 patch TOPICAL DAILY sertraline [Zoloft] 100 mg Tablet 100 mg PO QHS famotidine 20 mg Tablet 20 mg PO BID amitriptyline 25 mg Tablet 25 mg PO QODAY calcium polycarbophil [FiberCon] 625 mg Tablet 625 mg PO DAILY montelukast 10 mg Tablet 10 mg PO DAILY ergocalciferol (vitamin D2) [Vitamin D2] 1,250 mcg (50,000 unit) Capsule 1,250 mcg PO SA fluticasone propionate 50 mcg/actuation [place],Suspension 2 spray INTRANASAL BID omeprazole 20 mg Tablet,Delayed Release (Dr/Ec) 20 mg PO DAILY roflumilast [Daliresp] 500 mcg Tablet 500 mcg PO DAILY Spiriva Respimat 2.5 mcg/actuation Mist 2 puff INHALATION QHS guaifenesin [Mucinex] 600 mg Tablet Extended Release 12hr 600 mg PO BID sucralfate 1 gram Tablet 1 g PO TID@0700,1100,1600 Qty: 0 0RF dicyclomine 10 mg Capsule 10 mg PO 4X/DAY Qty: 1 0RF nystatin [Nyamyc] 100,000 unit/gram powder 1 applic topical TID Protocol: *Topical Application Instructions APPLICATION INSTRUCTIONS: affected areas potassium chloride 20 mEq Packet 20 meq PO DAILY gabapentin 300 mg Capsule 300 mg PO BID acetaminophen [Tylenol] 325 mg Tablet 650 mg PO Q6H PRN PRN (Reason: Pain 1-10 Or Fever>100.7) Qty: 0 0RF prednisone 20 mg tablet 40 mg PO DAILY 5 Days Qty: 10 0RF furosemide 40 mg tablet 40 mg PO DAILY Qty: 30 0RF Primary Care Provider: Sepideh Patterson Referrals: Sepideh Patterson MD [Primary Care Provider] - Disposition Disposition: [facility]
[2022-09-08 01:22] LABS: Mucous, Urine 0 SEEN /hpf (<or=2+); Red Blood Cells-Urine 0 SEEN /hpf (0-5); Squamous Epithelial Cells - UA 0 SEEN /hpf (5-10)
[2022-09-08 01:24] LABS: Absolute Lymphocyte Count 1.91 X10^3/uL (0.83-4.51); Absolute Neutrophil Count 9.2 X10^3/uL (2.0-7.7); Basophil# 0.02 X10^3/uL; Basophil% 0.2 % (0-1); Eosinophil# 0.16 X10^3/uL; Eosinophils% 1.3 % (0-5); Hemoglobin 10.5 g/dL (12.0-15.0); Lymphocyte # 1.91 X10^3/ul (0.83-4.51); Lymphocyte % 15.7 % (19-41); Mean Corp Hgb Conc 29.2 g/dL (32-36); Mean Corpuscular Hgb 27.6 pg (27.0-32.0); Mean Corpuscular Volume 94.7 fL (81-99); Mean Platelet Vol. 11.1 fl (6.2-12.0); Monocyte# 0.81 X10^3/uL; Monocyte% 6.6 % (0-10); NRBC Flagged by Analyzer 0 % (0-5); Neutrophil # 9.18 X10^3/uL (2.7-7.7); Neutrophil % 75.3 % (47-70); Platelet Count 235 K/mm3 (150-450); RBC Distribution Width CV 14.1 % (11.6-14.6); RBC Distribution Width SD 49.4 fl (35.1-43.9); White Blood Count 12.2 K/mm3 (4.4-11.0)
[2022-09-08 01:27] LABS: Color, Urine Yellow (Yellow); Glucose, Dipstick Normal (Normal); Ketone-Dipstick Negative (Negative); Leukocyte Esterase-Dipstick 500 /ul (Negative); Nitrite-Dipstick Negative (Negative); Occult Blood-Urine 150 /ul (Negative); Protein-Dipstick 100 mg/dl (Negative); Urine Bilirubin Dipstick Negative (Negative); Urine Clarity Turbid (Clear); Urine Urobilinogen Normal (Normal)
[2022-09-08 01:38] LABS: Bacteria 4+ /hpf (None Seen); White Blood Cells >100 SEEN /hpf (0-5)
[2022-09-08 01:41] LABS: Anion Gap 3 (5-15); BUN 28 mg/dL (7-18); Calcium,Total 10.5 mg/dL (8.5-10.1); Chloride 91 mmol/L (98-107); Creatinine, Serum 1.47 mg/dL (0.55-1.02); EST Glomerular Filtration Rate 38 mL/min (>60); Est Glom Filt Rate - Afr Amer 47 mL/min (>60); Glucose 145 mg/dL (74-106); Potassium 4.3 mmol/L (3.5-5.1); Sodium Level 138 mmol/L (136-145); Troponin-I HS 14 pg/mL (3.0-54.0)
[2022-09-08 01:42] LABS: D-Dimer Quantitative (DVT/PE) 0.36 FEU/ug/m (0.27-0.49)
[2022-09-08 01:46] LABS: BNP,B-Type NATRIURETIC PEPTIDE 8.1 pg/mL (0-100)
[2022-09-08] MEDS: Ceftriaxone 1 GM/50 ML BAG IV ×2 (01:52→21:28)
--- NOTE | 2022-09-08 01:59 | RAD_ITS ---
EXAM: XR Chest 1 View INDICATION: Female, 61 years old. Hypoxia TECHNIQUE: Single AP view COMPARISON: 05/28/2022 FINDINGS: DEVICES: None LUNGS: There is near complete opacification of the right hemithorax was spared aeration of the apex, likely representing diffuse pneumonia with likely concomitant pleural effusion. No definitive pneumothorax.. MEDIASTINUM: Cardiac silhouette is obscured. There is suggestion of mild central pulmonary vascular congestion. . SKELETAL STRUCTURES: Multilevel degenerative change of the spine.. UPPER ABDOMEN: Unremarkable RAD/Chest 1 View (Portable) IMPRESSION: Likely right-sided pneumonia with concomitant pleural effusion Electronically Signed: Tres Caldwell MD at 2:32 EDT ,
[2022-09-08 02:28] LABS: Lactic Acid 1.4 mmol/L (0.4-1.9)
[2022-09-08] MEDS: 0.9% Normal Saline 1,000 ML 15 ML IV (02:36)
--- NOTE | 2022-09-08 02:47 | CPS ---
[0247] Attempted 4 ABG attempts on pt. in ER. Unable to obtain sample. Communicated this with doctor in ER. Pt.'s SpO2 is appropriate at 92-94% when she's able to hold her hand still.
[2022-09-08 02:52] LABS: Blood Gas Specimen Type VEN; O2 Delivery Device Nasal Can
[2022-09-08 02:53] LABS: VBG BASE EXCESS 24 mmol/L (-1.0-3.5); VBG Bicarbonate 50 mmol/L (22-26); VBG PO2 22 mmHg (25-40); VBG SO2 28 % (50-70); VBG TCO2 > 50 mmol/L (23-33); VBG pCO2 96.8 mmHg (41-51); VBG pH 7.32 (7.32-7.42)
--- NOTE | 2022-09-08 02:57 | ED.RN ---
Report given to [facility] about pt admission.
--- NOTE | 2022-09-08 02:58 | ED.RN ---
Pt rolled and cleaned with bath wipes multiple times. Pt has small, dime sized open wound under abd that is bleeding. Dr. Corea aware. Pt stated she has not had a bath in about a week. Also states staff does not roll or change her often. Pt sheets from care home smell of urine.
--- NOTE | 2022-09-08 03:06 | HP.PCM.HOS_ITS ---
HPI - General General Date of Admission: 09/08/22 Date of Service: 09/08/22 Chief Complaint: rigors HPI Narrative HE TRAYLOR, is a 61 F who presents with reported rigors.-Going on for the past couple days. Patient was also sent in because her pulse ox was low in the 70s despite using 4 L of oxygen. Patient is to be using a BiPAP at night which she says she uses when she does not need the outlets otherwise she will use it so she can plug her phone and her fan. In the ER, patient sats were in the 90s. Patient was found to have a urinary tract infection and did receive ceftriaxone. Her creatinine was elevated at 1.47, up from 0.54 from July 26. Patient is breathing fine and did not require any additional oxygen beyond her 4 L. 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 deficits Seasonal allergies TIA (transient ischemic attack) UTI (urinary tract infection) Vitamin D deficiency Home Medications acetaminophen 325 mg tablet 650 mg PO TID PAIN 05/03/22 [History Last Taken 05/28/22] amitriptyline 25 mg tablet 25 mg PO QODAY DEPRESSION 05/03/22 [History Last Taken 05/26/22] atorvastatin 20 mg tablet 20 mg PO QHS CHOLESTEROL 05/03/22 [History Last Taken 05/27/22] cyclobenzaprine 10 mg tablet 10 mg PO TID MUSCLE SPASMS 05/03/22 [History Last Taken 05/28/22] ergocalciferol (vitamin D2) 1,250 mcg (50,000 unit) capsule (Vitamin D2) 1,250 mcg PO SA SUPPLEMENT 05/03/22 [History Last Taken 05/27/22] famotidine 20 mg tablet 20 mg PO BID GERD 05/03/22 [History Last Taken 05/28/22] fluticasone propionate 50 mcg/actuation nasal spray,suspension 2 spray intranasal BID NASAL CONGESTION 05/03/22 [History Last Taken 05/28/22] lidocaine 4 % topical patch 1 patch topical DAILY PAIN 05/03/22 [History Last Taken 05/28/22] losartan 50 mg tablet 50 mg PO DAILY BLOOD PRESSURE 05/03/22 [History Last Taken 05/28/22] montelukast 10 mg tablet 10 mg PO DAILY ALLERGIES 05/03/22 [History Last Taken 05/28/22] omeprazole 20 mg tablet,delayed release 20 mg PO DAILY GERD 05/03/22 [History Last Taken 05/28/22] roflumilast 500 mcg tablet (Daliresp) 500 mcg PO DAILY ASTHMA 05/03/22 [History Last Taken 05/28/22] sertraline 100 mg tablet (Zoloft) 100 mg PO QHS DEPRESSION 05/03/22 [History Last Taken 05/27/22] tiotropium bromide 2.5 mcg/actuation mist for inhalation (Spiriva Respimat) 2 puff inhalation QHS ASTHMA 05/03/22 [History Last Taken 05/27/22] dicyclomine 10 mg capsule 10 mg PO 4X/DAY #1 cap 05/05/22 [Rx Last Taken 05/28/22] nystatin 100,000 unit/gram topical powder (Nyamyc) 1 applic topical TID affected areas 05/14/22 [History Last Taken 05/28/22] gabapentin 300 mg capsule 300 mg PO BID NEUROPATHY 05/28/22 [History Last Taken 05/28/22] furosemide 40 mg tablet 40 mg PO DAILY #30 tabs 05/30/22 [Rx Last Taken Unknown] prednisone 20 mg tablet 10 mg PO DAILY 09/08/22 [History Last Taken Unknown] Allergy/AdvReac Type Severity Reaction Status Date / Time aspirin Allergy Other Verified 09/08/22 00:15 black pepper [pepper] Allergy Other Verified 09/08/22 00:15 coconut Allergy Other Verified 09/08/22 00:15 codeine Allergy Other Verified 09/08/22 00:15 ibuprofen Allergy Other Verified 09/08/22 00:15 Influenza Virus Vaccines Allergy Other Verified 09/08/22 00:15 Penicillins Allergy Anaphylaxis Verified 09/08/22 00:15 rice Allergy Other Verified 09/08/22 00:15 tetanus and diphtheria Allergy Other Verified 09/08/22 00:15 toxoids Tetanus Vaccines and Toxoid Allergy Other Verified 09/08/22 00:15 Family History Other CAD (coronary artery disease) COPD (chronic obstructive pulmonary disease) Hypertension Social History housing: correction Smoking Status: Former smoker alcohol intake: never substance use type: does not use ROS ROS Narrative All review of systems were negative except as mentioned above in the history of present illness and the other review of systems. Vital Signs Vital Signs Vital Signs: 09/08/22 00:03 09/08/22 00:10 09/08/22 01:39 Temperature 36.3 C L Temperature Source Temporal Pulse Rate 107 H 104 H Respiratory Rate 20 H 17 Respiratory Effort Short of Breath Respiratory Depth Normal Respiratory Pattern Normal Blood Pressure 157/102 H Blood Pressure Mean 120 Pulse Ox 91 94 Oxygen Delivery Method Nasal Cannula Nasal Cannula Nasal Cannula Oxygen Flow Rate (L/min) 4 4 4 09/08/22 01:52 09/08/22 02:55 Temperature 36.3 C L 36.4 C L Temperature Source Temporal Temporal Pulse Rate 102 H 105 H Respiratory Rate 18 17 Respiratory Effort Respiratory Depth Respiratory Pattern Blood Pressure 117/105 H 131/94 H Blood Pressure Mean 109 106 Pulse Ox 95 94 Oxygen Delivery Method Nasal Cannula Nasal Cannula Oxygen Flow Rate (L/min) 4 4 Weight Weight: 173 kg Body Mass Index (BMI) 61.5 Physical Exam Const alert and no apparent distress Constitutional Narrative: No conversational dyspnea. No respiratory distress. General Appearance: cooperative Eyes Eyes Narrative: No icterus Neck Neck Narrative: Thick neck tissue. Resp Resp Narrative: Limited but clear anteriorly. Cardio regular rate, regular rhythm, S1 normal heart sound and S2 normal heart sound GI normal to inspection, nondistended, normoactive bowel sounds, soft to palpation, non-tender and non-distended Extremity normal to inspection Skin Skin Narrative: Had a superficial wound under her right pannus. Neuro moves all extremities Sensorium / Orientation: awake and alert Psych affect normal Results Lab / Micro Data Attestation: I reviewed the patient's lab results. Result Diagrams: 09/08/22 00:48 09/08/22 00:48 Labs: Laboratory Results - last 24 hr 09/08/22 00:48: WBC 12.2 H, RBC 3.80 L, Hgb 10.5 L, Hct 36.0 L, MCV 94.7, MCH 27.6, MCHC 29.2 L, RDW Std Deviation 49.4 H, RDW Coeff of David 14.1, Plt Count 235, MPV 11.1, Immature Gran % (Auto) 0.900, Neut % (Auto) 75.3 H, Lymph % (Auto) 15.7 L, [place] % (Auto) 6.6, Eos % (Auto) 1.3, Baso % (Auto) 0.2, Absolute Neuts (auto) 9.2 H, Absolute Lymphs (auto) 1.91, Nucleated RBC % 0 09/08/22 00:48: Sodium 138, Potassium 4.3, Chloride 91 L, Carbon Dioxide 44.0 H, Anion Gap 3 L, BUN 28 H, Creatinine 1.47 H, Estim Creat Clear Calc 38.10, Est GFR (MDRD) Af Amer 47 L, Est GFR (MDRD) Non-Af 38 L, BUN/Creatinine Ratio 19.0, Glucose 145 H, Calcium 10.5 H, Troponin I High Sens 14 09/08/22 00:48: B-Natriuretic Peptide 8.1 09/08/22 00:48: D-Dimer Quant (PE/DVT) 0.36 09/08/22 01:05: Urine Color Yellow, Urine Clarity Turbid, Urine pH 5.0, Ur Specific [place] 1.020, Urine Protein 100 H, Urine Glucose (UA) Normal, Urine Ketones Negative, Urine Occult Blood 150 H, Urine Nitrite Negative, Urine Bilirubin Negative, Urine Urobilinogen Normal, Ur Leukocyte Esterase 500 H, Urine RBC 0 SEEN, Urine WBC >100 SEEN, Ur Squamous Epith Cells 0 SEEN, Urine Bacteria 4+, Urine Mucus 0 SEEN 09/08/22 01:50: Lactic Acid 1.4 Micro: Microbiology 09/08/22 00:48 Nasal Secretion SARS-CoV-2 & FLU Antigen (Rapid) - Final ABG Data ABG results: ABG 09/08/22 01:52 Specimen Type SHELLEY VBG pH 7.32 VBG pO2 22 L VBG HCO3 50 H VBG Total CO2 > 50 H VBG O2 Sat (Calc) 28 L VBG Base Excess 24 H POC Mix VBG pCO2 Pt Tmp 96.8 H* O2 Delivery Device Nasal Can Liter Flow 4.0 Crit Call To/Read Back Yes Blood Gas Notified Whom ED Blood Gas Notified Time 0152 Radiology Impression Chest X-Ray 09/08/22 01:59 IMPRESSION: Likely right-sided pneumonia with concomitant pleural effusion Electronically Signed: Tres Caldwell MD at 2:32 EDT , Assessment & Plan Assessment/Plan (1) UTI (urinary tract infection): PLAN: I suspect this is why the patient is having these rigors. I reviewed the chest x-ray images and they are poor quality as patient is rotated right appreciating pneumonia however. Follow-up on cultures Continue with ceftriaxone (2) Acute kidney injury: PLAN: Clinically, the patient appears dry. Hold furosemide IV fluids for 1 L PLAN: Plan Chronic conditions * Chronic hypercapnic respiratory failure: Not in any acute distress at this time. Patient is to use a BiPAP but she is only using it when she does not need an outlet. Patient may benefit from getting a power strep so that she can plug her phone and fan but also her BiPAP * COPD: Currently stable * Morbid obesity: BMI is 61.6 kg/m? weight loss certainly would be of profound benefit for her * Depression: Continue with Zoloft * GERD: Continue with H2 rome VTE prophylaxis with enoxaparin CODE STATUS: Addressed with the patient. Patient wants to be full code Disposition: Though the patient has a urinary tract infection, her multiple severe comorbidities may limit a fast discharge as there is very high risk for decompensation if not properly observed and ensured that she is stable for d ischarge. Anticipated length of hospitalization is 48 to 72 hours. Charges/Coding Visit Charges Inpatient E&M: 86524 Init Hosp L3
[2022-09-08] MEDS: 0.9% Normal Saline 1,000 ML 150 ML IV (04:24)
--- NOTE | 2022-09-08 04:41 | CPS ---
Attempted bipap start on patient. Patient refusing at this time, will try initiating this at later time.
[2022-09-08] MEDS: cycloBENZAPRine HCl 10 MG Tablet PO ×2 (05:40→21:27)
[2022-09-08] MEDS: Nystatin Powder 15gm Bottle 1 APPLIC TOPICAL ×2 (05:40→21:29)
[2022-09-08] MEDS: Acetaminophen 325 MG Tablet 650 MG PO ×2 (05:40→21:25)
[2022-09-08 06:05] LABS: Absolute Lymphocyte Count 2.04 X10^3/uL (0.83-4.51); Absolute Neutrophil Count 7.5 X10^3/uL (2.0-7.7); Basophil# 0.03 X10^3/uL; Basophil% 0.3 % (0-1); Eosinophil# 0.13 X10^3/uL; Eosinophils% 1.2 % (0-5); Hematocrit 33.6 % (37-47); Hemoglobin 9.8 g/dL (12.0-15.0); Lymphocyte # 2.04 X10^3/ul (0.83-4.51); Lymphocyte % 19.3 % (19-41); Mean Corp Hgb Conc 29.2 g/dL (32-36); Mean Corpuscular Hgb 27.3 pg (27.0-32.0); Mean Corpuscular Volume 93.6 fL (81-99); Mean Platelet Vol. 10.8 fl (6.2-12.0); Monocyte# 0.75 X10^3/uL; Monocyte% 7.1 % (0-10); NRBC Flagged by Analyzer 0 % (0-5); Neutrophil # 7.48 X10^3/uL (2.7-7.7); Platelet Count 190 K/mm3 (150-450); RBC Distribution Width CV 14.1 % (11.6-14.6); Red Blood Count 3.59 M/mm3 (4.2-5.4); White Blood Count 10.6 K/mm3 (4.4-11.0)
[2022-09-08 06:46] LABS: ALB/GLOB Ratio 0.7 RATIO (0.9-2.4); AST(SGOT) 9 U/L (15-37); Alanine Aminotransfer ALT/SGPT 13 U/L (13-56); Albumin, Serum 2.6 g/dL (3.2-5.0); Alkaline Phosphatase 95 U/L (45-117); Anion Gap 4 (5-15); BUN 31 mg/dL (7-18); BUN/Creat Ratio 19.3 RATIO (10-20); Calcium,Total 9.9 mg/dL (8.5-10.1); Chloride 93 mmol/L (98-107); Creatinine, Serum 1.61 mg/dL (0.55-1.02); EST Glomerular Filtration Rate 35 mL/min (>60); Est Glom Filt Rate - Afr Amer 42 mL/min (>60); Estimated Creatinine Clearance 34.79 ml/min; Globulin 3.7 g/dL (2.2-4.2); Glucose 117 mg/dL (74-106); Protein, Total 6.3 g/dL (6.4-8.2); Sodium Level 139 mmol/L (136-145)
--- NOTE | 2022-09-08 06:46 | NURSING ---
pT REQUESTED THAT HER DAUGHTER ELISHA BE TAKEN OFF HER NEXT OF KIN. pT WANTS MIKE NORMAN BUT THE PHONE NUMBER SHE GAVE ME WAS MISSING 2 DIGITS.
--- NOTE | 2022-09-08 06:49 | NURSING ---
REGISTRATION CONTACTED TO REMOVE HER DAUGHTER FROM HER CONTACT LIST
[2022-09-08] MEDS: Ipratropium 0.5 MG/2.5 ML SOLUTION INHALATION ×3 (06:56→19:13)
--- NOTE | 2022-09-08 07:19 | PN.HOSP_ITS ---
Hospitalist Note Patient is a 61-year-old lady admitted with rigors diagnosed with acute cystitis admitted to regular nursing floor for further management GENERAL: cooperative HEENT: Atraumatic; normocephalic EYES; Anicteric, Normal Conjunctiva NECK; supple, normal thyroid, RESPIRATORY: Diminished to auscultation CARDIOVASCULAR: Regular S1 S2, GI: soft, normoactive bowel sounds, : No Renal angle tenderness; EXTREMITIES: No edema, no clubbing, MUSCULOSKELETAL: no muscle wasting NEURO: Awake; no lateralizing signs. SKIN: No Rash PSYCH; Flat affect Assessment and plan 1. Acute cystitis 2. Acute kidney injury 3. Patient is a 61-year-old female with multiple comorbidities including morbid obesity with BMI of 61 admitted with hypotension.? Diagnosed with acute cystitis admitted to monitored bed for further management 1.? Hypertension ? Attributed to volume depletion as evidenced by patient acute kidney injury management IV fluids with close monitoring of electrolyte 2.? Acute cystitis with Proteus mirabilis ? Patient urine cultures so far positive for Proteus species final identification and sensitivities pending Patient urine cultures resulted positive for Proteus mirabilis multidrug- resistant.? Case discussed with infectious disease patient will receive fosfomycin 1 dose prior to discharge 3.? Acute metabolic encephalopathy ? Due to a combination of medications as well as patient underlying infection and the suspected offending medications held on admission 4.? Chronic hypoxic respiratory failure ? Due to obstructive sleep apnea as well as obesity hypoventilation syndrome patient is on baseline oxygen 5.? Obesity hypoventilation syndrome ? Consistent use of BiPAP encouraged 6.? COPD ? Currently not in exacerbation aerosol treatments as needed 7.? Essential hypertension ? Patient presented with hypotension patient antihypertensives placed on hold 8.? Class III obesity with BMI of 61.7 ? Weight loss advised 9.? DVT prophylaxis ? SC heparin Time spent in the patient's overall evaluation,decision-making process, review of diagnostic data, adjustment of management, discussion with other providers, nursing nursing and ancillary staff involved in patient's care documentation,40? minutes 3. Depression 4.
--- NOTE | 2022-09-08 08:47 | CASEMGMT ---
Addendum entered by Tejal Pollard 09/08/22 12:06: Social Work SW attempted to speak w/pt, her speech is garbled, SW cannot understand pt. SW spoke w/RN, pt is not alert and oriented at this time. SW called [facility] to get pt's daughter's name, or to see if there is any other family to contact. The daughter is the only contact, Trisha Lucero, . SW attempted to call daughter, the number is disconnected. Pt also needs seen for SDOH when able to speak w/SW. As per physician, pt will be here through the weekend. ALCIRA Henry Original Note: Social Work SW reviewed chart. Pt triggered SDOH for transportation, food and utilities. However, pt is here from [facility]. SW called [facility], spoke w/Yasmin. Yasmin confirms pt is ext js developer from [facility], has bedhold days. Pt transferred to [facility] in March from [facility] in [place]. As per Yasmin, there are some family dynamics. Pt had indicated as per RN note she wanted daughter's information removed from her chart, and had a gentleman who she wanted added, but does not have his full number. Pt also had indicated to physician she has not had a shower in a week. As per Yasmin, pt is not always accepting of care. SW attempted to speak w/pt, she is asleep. SW will try again later this morning. ALCIRA Henry
--- NOTE | 2022-09-08 08:58 | CASEMGMT ---
Discharge Planning Patient resides at [facility]. Return referral sent via [facility]. Payal Li
--- NOTE | 2022-09-08 10:02 | PCM.PN.HOSP ---
Reason for Visit Reason for Visit: Diagnoses Acute kidney failure, unspecified (09/08/22) Urinary tract infection, site not specified (09/08/22) Subjective Subjective Patient is a 61-year-old lady admitted with rigors diagnosed with acute cystitis admitted to regular nursing floor for further management Objective Data Objective Data Vital Signs: Vital Signs Temp Pulse Resp BP Pulse Ox O2 Del Method O2 Flow Rate 97.4 F L 103 H 20 H 125/109 H 96 Nasal Cannula 4 09/08/22 05:21 09/08/22 06:56 09/08/22 06:56 09/08/22 05:21 09/08/22 06:56 09/08/22 06:56 09/08/22 06:56 Oxygen Flow Rate (L/min) 4 Oxygen Delivery Method Nasal Cannula Weight: 177.1 kg Body Mass Index (BMI) 63.0 Intake & Output: Intake and Output for Last 24 Hours 09/06/22 09/07/22 09/08/22 23:59 23:59 23:59 Intake Total 250 / 250 Balance 250 / 250 Lab / Micro Data Result Diagrams: 09/08/22 05:42 09/08/22 05:42 Labs: Laboratory Results - last 24 hr 09/08/22 00:48: WBC 12.2 H, RBC 3.80 L, Hgb 10.5 L, Hct 36.0 L, MCV 94.7, MCH 27.6, MCHC 29.2 L, RDW Std Deviation 49.4 H, RDW Coeff of David 14.1, Plt Count 235, MPV 11.1, Immature Gran % (Auto) 0.900, Neut % (Auto) 75.3 H, Lymph % (Auto) 15.7 L, [place] % (Auto) 6.6, Eos % (Auto) 1.3, Baso % (Auto) 0.2, Absolute Neuts (auto) 9.2 H, Absolute Lymphs (auto) 1.91, Nucleated RBC % 0 09/08/22 00:48: Sodium 138, Potassium 4.3, Chloride 91 L, Carbon Dioxide 44.0 H, Anion Gap 3 L, BUN 28 H, Creatinine 1.47 H, Estim Creat Clear Calc 38.10, Est GFR (MDRD) Af Amer 47 L, Est GFR (MDRD) Non-Af 38 L, BUN/Creatinine Ratio 19.0, Glucose 145 H, Calcium 10.5 H, Troponin I High Sens 14 09/08/22 00:48: B-Natriuretic Peptide 8.1 09/08/22 00:48: D-Dimer Quant (PE/DVT) 0.36 09/08/22 01:05: Urine Color Yellow, Urine Clarity Turbid, Urine pH 5.0, Ur Specific [place] 1.020, Urine Protein 100 H, Urine Glucose (UA) Normal, Urine Ketones Negative, Urine Occult Blood 150 H, Urine Nitrite Negative, Urine Bilirubin Negative, Urine Urobilinogen Normal, Ur Leukocyte Esterase 500 H, Urine RBC 0 SEEN, Urine WBC >100 SEEN, Ur Squamous Epith Cells 0 SEEN, Urine Bacteria 4+, Urine Mucus 0 SEEN 09/08/22 01:50: Lactic Acid 1.4 09/08/22 05:42: WBC 10.6, RBC 3.59 L, Hgb 9.8 L, Hct 33.6 L, MCV 93.6, MCH 27.3, MCHC 29.2 L, RDW Std Deviation 48.0 H, RDW Coeff of David 14.1, Plt Count 190, MPV 10.8, Immature Gran % (Auto) 1.100 H, Neut % (Auto) 71.0 H, Lymph % (Auto) 19.3, [place] % (Auto) 7.1, Eos % (Auto) 1.2, Baso % (Auto) 0.3, Absolute Neuts (auto) 7.5, Absolute Lymphs (auto) 2.04, Nucleated RBC % 0 09/08/22 05:42: Sodium 139, Potassium 4.0, Chloride 93 L, Carbon Dioxide 42.0 H, Anion Gap 4 L, BUN 31 H, Creatinine 1.61 H, Estim Creat Clear Calc 34.79, Est GFR (MDRD) Af Amer 42 L, Est GFR (MDRD) Non-Af 35 L, BUN/Creatinine Ratio 19.3, Glucose 117 H, Calcium 9.9, Total Bilirubin 0.30, AST 9 L, ALT 13, Alkaline Phosphatase 95, Total Protein 6.3 L, Albumin 2.6 L, Globulin 3.7, Albumin/Globulin Ratio 0.7 L Micro: Microbiology 09/08/22 00:48 Nasal Secretion SARS-CoV-2 & FLU Antigen (Rapid) - Final ABG Data ABG results: ABG 09/08/22 01:52 Specimen Type SHELLEY VBG pH 7.32 VBG pO2 22 L VBG HCO3 50 H VBG Total CO2 > 50 H VBG O2 Sat (Calc) 28 L VBG Base Excess 24 H POC Mix VBG pCO2 Pt Tmp 96.8 H* O2 Delivery Device Nasal Can Liter Flow 4.0 Crit Call To/Read Back Yes Blood Gas Notified Whom ED Blood Gas Notified Time 0152 Radiography Diagnostic Testing: Radiology Impression Chest X-Ray 09/08/22 01:59 IMPRESSION: Likely right-sided pneumonia with concomitant pleural effusion Electronically Signed: Tres Caldwell MD at 2:32 EDT , Physical Exam Narrative GENERAL: cooperative HEENT: Atraumatic; normocephalic EYES; Anicteric, Normal Conjunctiva NECK; supple, normal thyroid, RESPIRATORY: Diminished to auscultation CARDIOVASCULAR: Regular S1 S2, GI: soft, normoactive bowel sounds, : No Renal angle tenderness; EXTREMITIES: No edema, no clubbing, MUSCULOSKELETAL: no muscle wasting NEURO: Awake; no lateralizing signs. SKIN: No Rash PSYCH; Flat affect Assessment & Plan Assessment/Plan (1) UTI (urinary tract infection): (2) Acute kidney injury: PLAN: Plan Patient is a 61-year-old lady admitted with rigors diagnosed with acute cystitis admitted to regular nursing floor for further management 1. Acute cystitis ? Patient admitted to regular nursing floor urine culture sent patient started on broad-spectrum antibiotic therapy With ceftriaxone 2. Acute kidney injury Patient baseline creatinine from 07/26/2022 was 0.54 creatinine on admission was 1.47 went up to 1.61 started on IV fluid with subsequent monitoring of electrolytes ordered 3. Essential hypertension ? Did continue patient home medication except for losartan 4.? Chronic hypoxic respiratory failure ? Due to obstructive sleep apnea as well as obesity hypoventilation syndrome patient is on baseline oxygen 5.? Obesity hypoventilation syndrome ? Consistent use of BiPAP encouraged 6.? COPD ? Currently not in exacerbation aerosol treatments as needed 7.?Class III obesity with BMI of 63 ? Weight loss advised 9.GERD ? On PPI 10. Depression ? Patient is on SSRI did continue 11. DVT prophylaxis ? SC heparin Time spent in the patient's overall evaluation,decision-making process, review of diagnostic data, adjustment of management, discussion with other providers, nursing nursing and ancillary staff involved in patient's care documentation, 50 minutes Charges/Coding Visit Charges Inpatient E&M: 07267 Subs Hosp L3
[2022-09-08 11:11] LABS: Bedside Glucose 133 mg/dL (74-106)
[2022-09-08] MEDS: Lidocaine 5% Patch 1 PATCH TOPICAL (12:16)
[2022-09-08] MEDS: Montelukast 10 MG Tablet PO (12:16)
[2022-09-08] MEDS: Enoxaparin 40 MG/0.4 ML Syringe SC ×2 (12:16→21:26)
--- NOTE | 2022-09-08 12:56 | NURSING ---
sp02 79% on 4L NC increased to 5L NC but did not improve. Pt with garbled speech at times. Tried to refused bipap but this RN informed her the importance of it and she did let me put it on. Pt refused lovenox despite education. I dont want it!. stated I don't care when this RN stated that she could get blood clots and from blood clots. Dr. Pascual made aware of all the above but also that pt has not voided in 8hrs and this RN bladder scanned. 0cc obtained from bladder scan but pt has is obese and very hard to get an accurate scan. Khai CPs in room getting ordered ABG's at this time.
--- NOTE | 2022-09-08 12:59 | NURSING ---
steam and power supervisor notified of orders for icu transfer
--- NOTE | 2022-09-08 13:04 | CPS ---
Critical values verified times two. Reported to 3rd floor charge nurse.
[2022-09-08 13:09] LABS: Allen Test Positive; Base Excess 3 mmol/L (-2 to +2); Bicarbonate 31.3 mmol/L (22-26); Blood Gas Specimen Type ART; FI02 100; O2 Delivery Device BiPAP; PO2 246 mmHG (75-100); SITE L Radial; SO2 100 % (95-99); Total Carbon Dioxide 34 mmol/L; pCO2 79.2 mmHg (35-45); pH 7.21 (7.35-7.45)
[2022-09-08 16:17] LABS: Base Excess 18 mmol/L (-2 to +2); Bicarbonate 44.7 mmol/L (22-26); Blood Gas Specimen Type ART; FI02 35; PEEP 10; PO2 81 mmHG (75-100); RR 18; SITE L Radial; SO2 93 % (95-99); Total Carbon Dioxide 48 mmol/L; Vt 450; pCO2 100.2 mmHg (35-45); pH 7.26 (7.35-7.45)
[2022-09-08] MEDS: Atorvastatin Calcium 20 MG Tablet PO (21:25)
[2022-09-08] MEDS: Dicyclomine 10 MG Capsule PO (21:25)
[2022-09-08] MEDS: Gabapentin 300 MG Capsule PO (21:27)
[2022-09-08] MEDS: Pantoprazole Sodium 20 MG Tablet PO (21:27)
[2022-09-08] MEDS: Fluticasone 0.05% 1 SPRAY NASAL.SRY 2 SPRAY NASAL (21:28)
[2022-09-08] MEDS: Sertraline 100 MG Tablet PO (21:30)
[2022-09-09] VITALS (23 sets, daily range): BP systolic 88–127; BP diastolic 51–95; PULSE 81–98; RESP 12–24; TEMP 36.8–37.2; O2SAT 90–98; BMI 63.3
[2022-09-09 04:10] LABS: Absolute Lymphocyte Count 2.15 X10^3/uL (0.83-4.51); Absolute Neutrophil Count 6.8 X10^3/uL (2.0-7.7); Basophil# 0.03 X10^3/uL; Basophil% 0.3 % (0-1); Eosinophil# 0.17 X10^3/uL; Eosinophils% 1.7 % (0-5); Hematocrit 33.1 % (37-47); Hemoglobin 9.7 g/dL (12.0-15.0); Lymphocyte # 2.15 X10^3/ul (0.83-4.51); Lymphocyte % 21.6 % (19-41); Mean Corp Hgb Conc 29.3 g/dL (32-36); Mean Corpuscular Hgb 27.1 pg (27.0-32.0); Mean Corpuscular Volume 92.5 fL (81-99); Monocyte# 0.65 X10^3/uL; Monocyte% 6.5 % (0-10); NRBC Flagged by Analyzer 0 % (0-5); Neutrophil # 6.78 X10^3/uL (2.7-7.7); Neutrophil % 68.2 % (47-70); Platelet Count 195 K/mm3 (150-450); RBC Distribution Width CV 13.8 % (11.6-14.6); RBC Distribution Width SD 46.6 fl (35.1-43.9); Red Blood Count 3.58 M/mm3 (4.2-5.4)
[2022-09-09] MEDS: oxyCODONE 5 MG Tablet PO ×2 (04:11→14:07)
[2022-09-09 04:51] LABS: Anion Gap 2 (5-15); BUN 27 mg/dL (7-18); BUN/Creat Ratio 37.7 RATIO (10-20); Chloride 95 mmol/L (98-107); Creatinine, Serum 0.72 mg/dL (0.55-1.02); EST Glomerular Filtration Rate 88 mL/min (>60); Est Glom Filt Rate - Afr Amer 107 mL/min (>60); Estimated Creatinine Clearance 77.79 ml/min; Glucose 110 mg/dL (74-106); Magnesium 1.7 mg/dL (1.6-2.6); Phosphorus 2.8 mg/dL (2.5-4.9); Sodium Level 141 mmol/L (136-145)
[2022-09-09] MEDS: Nystatin Powder 15gm Bottle 1 APPLIC TOPICAL ×3 (05:23→20:34)
[2022-09-09] MEDS: cycloBENZAPRine HCl 10 MG Tablet PO ×3 (05:24→20:36)
[2022-09-09] MEDS: Acetaminophen 325 MG Tablet 650 MG PO ×3 (05:24→20:34)
--- NOTE | 2022-09-09 05:50 | EX.PCM.CONCC ---
Assessment & Plan Assessment/Plan (1) UTI (urinary tract infection): PLAN: Plan RECOMMENDATIONS: 1. Continue antimicrobials pending finalized culture results. 2. Continue AVAPS therapy with naps and nightly. 3. Transition to nasal cannula oxygen to maintain saturations at or above 90%. 4. Encourage incentive spirometer use and mobilize patient as tolerated. IMPRESSIONS: 1. Acute on chronic combined respiratory failure The patient has a known supplemental oxygen requirement of 4 L/min at baseline along with what is likely alveolar hypoventilation secondary to obesity, coupled with underlying obstructive sleep apnea, for which the patient is noncompliant with use of conventional PAP therapy. Her mentation as well as CO2 levels have improved with noninvasive positive pressure ventilatory support. I would strongly recommend the continued use of AVAPS therapy with naps and nightly. The patient can be weaned to supplemental oxygen via nasal cannula from my perspective. I would avoid sedating medications. 2. Encephalopathy Likely related to acute CO2 retention. This has improved with noninvasive positive pressure ventilatory support. The patient is currently alert and appropriately interactive. Continue supportive measures as noted above. 3. Cystitis Continue supportive measures including antimicrobials, pending finalized culture results. 4. Questionable history of COPD/super morbid obesity/depression/GERD Complicates care, management, recovery and prognosis. Continue aerosol treatments as ordered. Encourage incentive spirometer use and mobilize patient as tolerated. This note was generated with eGener[employer] dictation software. It may contain incorrect words, spelling, and punctuation that were not noted in checking the note before signing. HPI Consult Data Date of Consult: 09/10/22 HPI Narrative Reason for Consultation: Alveolar hypoventilation secondary to obesity HPI Narrative: The patient is a 61-year-old female, with a history as outlined below, who initially presented to the emergency department via EMS on September 08 with rigors and hypoxemia. The patient currently resides in an extended care facility. The patient has a known history of chronic hypoxemic respiratory failure with a baseline 4 L/min oxygen requirement along with obstructive sleep apnea, for which she is mostly noncompliant with the use of nocturnal PAP therapy. On presentation to the emergency department, the patient was noted to be afebrile and hemodynamically stable. She was saturating 91% on 4 L/min via nasal cannula. Initial laboratory evaluation revealed a white blood cell count of 12,000. D-dimer was negative. Chemistry profile was notable for a bicarbonate of 44 and creatinine of 1.47. Urinalysis was positive for leukocyte esterase and 4+ urine bacteria. Chest x-ray demonstrated findings concerning for right-sided pneumonia and pleural effusion. The patient was initially placed on antibiotics and admitted to the hospital. The patient was ultimately transferred to the medical intensive care unit later on September 08 after she became encephalopathic and was found to have a PCO2 of 80 on arterial blood gas. She was placed on AVAPS therapy and moved to the ICU. [facility] Medical History (Updated 09/08/22 @ 04:34 by Jessica Yost) Acute kidney failure with tubular necrosis Anemia Anxiety Chronic anemia Chronic pain Chronic respiratory failure with hypoxia COPD (chronic obstructive pulmonary disease) Depression Fibromyalgia GERD (gastroesophageal reflux disease) HFrEF (heart failure with reduced ejection fraction) HTN (hypertension) Hyperlipidemia Morbid obesity Obesity hypoventilation syndrome MARISOL (obstructive sleep apnea) Peptic ulcer disease Personal history of transient ischemic attack (TIA), and cerebral infarction without residual deficits Seasonal allergies TIA (transient ischemic attack) UTI (urinary tract infection) Vitamin D deficiency Home Medications acetaminophen 325 mg tablet 650 mg PO Q4H PRN PRN Pain 05/03/22 [History Last Taken 05/28/22] amitriptyline 25 mg tablet 25 mg PO QODAY DEPRESSION 05/03/22 [History Last Taken 05/26/22] atorvastatin 20 mg tablet 20 mg PO QHS CHOLESTEROL 05/03/22 [History Last Taken 05/27/22] cyclobenzaprine 10 mg tablet 10 mg PO TID Check with primary doctor 05/03/22 [History Last Taken 05/28/22] ergocalciferol (vitamin D2) 1,250 mcg (50,000 unit) capsule (Vitamin D2) 1,250 mcg PO SA SUPPLEMENT 05/03/22 [History Last Taken 05/27/22] famotidine 20 mg tablet 20 mg PO BID GERD 05/03/22 [History Last Taken 05/28/22] fluticasone propionate 50 mcg/actuation nasal spray,suspension 2 spray intranasal BID NASAL CONGESTION 05/03/22 [History Last Taken 05/28/22] lidocaine 4 % topical patch 1 patch topical DAILY PRN Pain 05/03/22 [History Last Taken 05/28/22] losartan 50 mg tablet 50 mg PO DAILY BLOOD PRESSURE 05/03/22 [History Last Taken 05/28/22] montelukast 10 mg tablet 10 mg PO DAILY ALLERGIES 05/03/22 [History Last Taken 05/28/22] omeprazole 20 mg tablet,delayed release 20 mg PO BID GERD 05/03/22 [History Last Taken 05/28/22] roflumilast 500 mcg tablet (Daliresp) 500 mcg PO DAILY ASTHMA 05/03/22 [History Last Taken 05/28/22] sertraline 100 mg tablet (Zoloft) 100 mg PO QHS DEPRESSION 05/03/22 [History Last Taken 05/27/22] tiotropium bromide 2.5 mcg/actuation mist for inhalation (Spiriva Respimat) 2 puff inhalation QHS ASTHMA 05/03/22 [History Last Taken 05/27/22] dicyclomine 10 mg capsule 10 mg PO 4X/DAY #1 cap 05/05/22 [Rx Last Taken 05/28/22] nystatin 100,000 unit/gram topical powder (Nyamyc) 1 applic topical TID affected areas 05/14/22 [History Last Taken 05/28/22] gabapentin 300 mg capsule 300 mg PO BID NEUROPATHY 05/28/22 [History Last Taken 05/28/22] furosemide 40 mg tablet 40 mg PO DAILY #30 tabs 05/30/22 [Rx Last Taken Unknown] albuterol sulfate 90 mcg/actuation aerosol inhaler 2 puff inhalation Q2H PRN SOB 09/08/22 [History Last Taken Unknown] prednisone 20 mg tablet 10 mg PO DAILY Check with primary doctor 09/08/22 [History Last Taken Unknown] Allergy/AdvReac Type Severity Reaction Status Date / Time aspirin Allergy Other Verified 09/08/22 00:15 black pepper [pepper] Allergy Other Verified 09/08/22 00:15 coconut Allergy Other Verified 09/08/22 00:15 codeine Allergy Other Verified 09/08/22 00:15 ibuprofen Allergy Other Verified 09/08/22 00:15 Influenza Virus Vaccines Allergy Other Verified 09/08/22 00:15 Penicillins Allergy Anaphylaxis Verified 09/08/22 00:15 rice Allergy Other Verified 09/08/22 00:15 tetanus and diphtheria Allergy Other Verified 09/08/22 00:15 toxoids Tetanus Vaccines and Toxoid Allergy Other Verified 09/08/22 00:15 Family History Other CAD (coronary artery disease) COPD (chronic obstructive pulmonary disease) Hypertension Social History housing: alf Smoking Status: Former smoker alcohol intake: never substance use type: does not use ROS ROS Narrative 10 systems reviewed with pertinent positives as noted in the HPI above. Physical Exam Const Constitutional Narrative: The patient is super morbidly obese. Resting comfortably in bed. BiPAP is in place. The patient is alert and appropriately interactive. HEENT normocephalic and head/scalp atraumatic Eyes PERRL, EOMs intact bilaterally and conjunctivae normal Neck supple Neck Narrative: Large neck circumference with redundant soft tissue. General: trachea midline Chest inspection of chest normal Resp Resp Narrative: Distant breath sounds secondary to body habitus. Auscultation: Negative for rales, rhonchi or wheezes Cardio regular rate and regular rhythm GI normal to inspection, nondistended, normoactive bowel sounds Extremity General Extremity: edema bilateral lower extremity; Negative for clubbing Skin no rashes or lesions noted Neuro CN's II-XII intact bilaterally and no focal motor deficits Psych cooperative and affect normal Lab / Micro Data Result Diagrams: 09/10/22 03:20 09/10/22 03:20 Labs: Laboratory Results - last 24 hr 09/08/22 05:42: WBC 10.6, RBC 3.59 L, Hgb 9.8 L, Hct 33.6 L, MCV 93.6, MCH 27.3, MCHC 29.2 L, RDW Std Deviation 48.0 H, RDW Coeff of David 14.1, Plt Count 190, MPV 10.8, Immature Gran % (Auto) 1.100 H, Neut % (Auto) 71.0 H, Lymph % (Auto) 19.3, [place] % (Auto) 7.1, Eos % (Auto) 1.2, Baso % (Auto) 0.3, Absolute Neuts (auto) 7.5, Absolute Lymphs (auto) 2.04, Nucleated RBC % 0 09/08/22 05:42: Sodium 139, Potassium 4.0, Chloride 93 L, Carbon Dioxide 42.0 H, Anion Gap 4 L, BUN 31 H, Creatinine 1.61 H, Estim Creat Clear Calc 34.79, Est GFR (MDRD) Af Amer 42 L, Est GFR (MDRD) Non-Af 35 L, BUN/Creatinine Ratio 19.3, Glucose 117 H, Calcium 9.9, Total Bilirubin 0.30, AST 9 L, ALT 13, Alkaline Phosphatase 95, Total Protein 6.3 L, Albumin 2.6 L, Globulin 3.7, Albumin/Globulin Ratio 0.7 L 09/08/22 10:41: POC Glucose 133 H 09/09/22 04:05: WBC 10.0, RBC 3.58 L, Hgb 9.7 L, Hct 33.1 L, MCV 92.5, MCH 27.1, MCHC 29.3 L, RDW Std Deviation 46.6 H, RDW Coeff of David 13.8, Plt Count 195, MPV 11.0, Immature Gran % (Auto) 1.700 H, Neut % (Auto) 68.2, Lymph % (Auto) 21.6, [place] % (Auto) 6.5, Eos % (Auto) 1.7, Baso % (Auto) 0.3, Absolute Neuts (auto) 6.8, Absolute Lymphs (auto) 2.15, Nucleated RBC % 0 09/09/22 04:05: Sodium 141, Potassium 4.0, Chloride 95 L, Carbon Dioxide 44.0 H, Anion Gap 2 L, BUN 27 H, Creatinine 0.72, Estim Creat Clear Calc 77.79, Est GFR (MDRD) Af Amer 107, Est GFR (MDRD) Non-Af 88, BUN/Creatinine Ratio 37.7 H, Glucose 110 H, Calcium 10.0, Phosphorus 2.8, Magnesium 1.7 Micro: Microbiology 09/08/22 21:20 Stool Enteric Bacteriology - Preliminary 09/08/22 21:20 Stool C. difficile GDH Antigen & Toxins - Final 09/08/22 21:20 Stool C. difficile DNA Amplification - Final 09/08/22 00:48 Nasal Secretion SARS-CoV-2 & FLU Antigen (Rapid) - Final ABG Data ABG results: ABG 09/08/22 09/08/22 13:04 16:11 Specimen Type ART ART Sample Site L Radial L Radial pH 7.21 L 7.26 L Bicarbonate Actual 31.3 H 44.7 H Total CO2 34 48 Base Excess 3 H 18 H O2 Saturation 100 H 93 L O2 % 100 35 ABG pCO2 79.2 H* 100.2 H* ABG pO2 246 H 81 José Miguel Test Positive Respiration Rate 18 O2 Delivery Device BiPAP Tidal Volume 450 POC PEEP 10 Crit Call To/Read Back Yes Yes Blood Gas Notified Whom OWEN Clinical Comments Charges/Coding Visit Charges Inpatient E&M: 81602 Init Hosp L3
[2022-09-09] MEDS: Ipratropium 0.5 MG/2.5 ML SOLUTION INHALATION ×3 (06:54→19:28)
--- NOTE | 2022-09-09 07:19 | PCM.PN.HOSP ---
Reason for Visit Reason for Visit: Diagnoses Acute kidney failure, unspecified (09/08/22) Urinary tract infection, site not specified (09/08/22) Subjective Subjective Patient was transferred to the intensive care unit after she was found to be significantly lethargic ABGs demonstrated hypercapnia. An assessment of acute hypoxic and hypercapnic respiratory failure made placed on BiPAP with consultation placed to pulmonary medicine Objective Data Objective Data Vital Signs: Vital Signs Temp Pulse Resp BP Pulse Ox O2 Del Method O2 Flow Rate 98.4 F 96 24 H 118/64 92 Bi-pap 4 09/09/22 07:00 09/09/22 07:00 09/09/22 07:00 09/09/22 07:00 09/09/22 07:00 09/09/22 07:00 09/09/22 05:01 FiO2 35 09/09/22 07:00 Oxygen Flow Rate (L/min) 4 Oxygen Delivery Method Bi-pap Weight: 177.9 kg Body Mass Index (BMI) 63.3 Intake & Output: Intake and Output for Last 24 Hours 09/07/22 09/08/22 09/09/22 23:59 23:59 23:59 Intake Total 1546.5 / 1546.5 Output Total 1100 / 1100 250 / 250 Balance 446.5 / 446.5 -250 / -250 Lab / Micro Data Result Diagrams: 09/09/22 04:05 09/09/22 04:05 Labs: Laboratory Results - last 24 hr 09/08/22 10:41: POC Glucose 133 H 09/09/22 04:05: WBC 10.0, RBC 3.58 L, Hgb 9.7 L, Hct 33.1 L, MCV 92.5, MCH 27.1, MCHC 29.3 L, RDW Std Deviation 46.6 H, RDW Coeff of David 13.8, Plt Count 195, MPV 11.0, Immature Gran % (Auto) 1.700 H, Neut % (Auto) 68.2, Lymph % (Auto) 21.6, [place] % (Auto) 6.5, Eos % (Auto) 1.7, Baso % (Auto) 0.3, Absolute Neuts (auto) 6.8, Absolute Lymphs (auto) 2.15, Nucleated RBC % 0 09/09/22 04:05: Sodium 141, Potassium 4.0, Chloride 95 L, Carbon Dioxide 44.0 H, Anion Gap 2 L, BUN 27 H, Creatinine 0.72, Estim Creat Clear Calc 77.79, Est GFR (MDRD) Af Amer 107, Est GFR (MDRD) Non-Af 88, BUN/Creatinine Ratio 37.7 H, Glucose 110 H, Calcium 10.0, Phosphorus 2.8, Magnesium 1.7 Micro: Microbiology 09/08/22 21:20 Stool Enteric Bacteriology - Preliminary 09/08/22 21:20 Stool C. difficile GDH Antigen & Toxins - Final 09/08/22 21:20 Stool C. difficile DNA Amplification - Final 09/08/22 00:48 Nasal Secretion SARS-CoV-2 & FLU Antigen (Rapid) - Final ABG Data ABG results: ABG 09/08/22 09/08/22 13:04 16:11 Specimen Type ART ART Sample Site L Radial L Radial pH 7.21 L 7.26 L Bicarbonate Actual 31.3 H 44.7 H Total CO2 34 48 Base Excess 3 H 18 H O2 Saturation 100 H 93 L O2 % 100 35 ABG pCO2 79.2 H* 100.2 H* ABG pO2 246 H 81 José Miguel Test Positive Respiration Rate 18 O2 Delivery Device BiPAP Tidal Volume 450 POC PEEP 10 Crit Call To/Read Back Yes Yes Blood Gas Notified Whom BROWN Clinical Comments Physical Exam Narrative GENERAL: Patient on BiPAP HEENT: Atraumatic; normocephalic EYES; Anicteric, Normal Conjunctiva NECK; supple, normal thyroid, RESPIRATORY: Diminished to auscultation CARDIOVASCULAR: Regular S1 S2, GI: soft, normoactive bowel sounds, : No Renal angle tenderness; EXTREMITIES: No edema, no clubbing, MUSCULOSKELETAL: no muscle wasting NEURO: Awake; no lateralizing signs. SKIN: No Rash PSYCH; Flat affect Assessment & Plan Assessment/Plan (1) UTI (urinary tract infection): (2) Acute kidney injury: PLAN: Plan Patient is a 61-year-old lady admitted with rigors diagnosed with acute cystitis admitted to regular nursing floor for further management 1. Acute cystitis ? Patient admitted to regular nursing floor urine culture sent patient started on broad-spectrum antibiotic therapy With ceftriaxone ? 09/09/2022; urine and blood cultures pending 2. Acute kidney injury Patient baseline creatinine from 07/26/2022 was 0.54 creatinine on admission was 1.47 went up to 1.61 started on IV fluid with subsequent monitoring of electrolytes ordered ? 09/09/2022 kidney function back to baseline 3. Acute metabolic encephalopathy ? Secondary to acute respiratory failure with significant hypercapnia 4. Acute on chronic hypoxic respiratory failure ? Due to combination of sleep apnea and obesity hypoventilation syndrome patient was transferred to the intensive care unit following deterioration in her mental status placed on noninvasive ventilation BiPAP with consultation placed to pulmonary medicine 3. Essential hypertension ? Did continue patient home medication except for losartan 4.? Chronic hypoxic respiratory failure ? Due to obstructive sleep apnea as well as obesity hypoventilation syndrome patient is on baseline oxygen 5.? Obesity hypoventilation syndrome ? Consistent use of BiPAP encouraged 6.? COPD ? Currently not in exacerbation aerosol treatments as needed 7.?Class III obesity with BMI of 63 ? Weight loss advised 9.GERD ? On PPI 10. Depression ? Patient is on SSRI did continue 11. Anemia - Secondary to chronic disorder monitoring H&H and transfuse if patient becomes symptomatic or hemoglobin falls below 7 12. DVT prophylaxis ? SC heparin Time spent in the patient's overall evaluation,decision-making process, review of diagnostic data, adjustment of management, discussion with other providers, nursing nursing and ancillary staff involved in patient's care documentation, 50 minutes Charges/Coding Visit Charges Inpatient E&M: 06384 Subs Hosp L3
[2022-09-09] MEDS: Montelukast 10 MG Tablet PO (08:29)
[2022-09-09] MEDS: predniSONE 20 MG Tablet 10 MG PO (08:29)
[2022-09-09] MEDS: Gabapentin 300 MG Capsule PO ×2 (08:29→20:39)
[2022-09-09] MEDS: Pantoprazole Sodium 20 MG Tablet PO ×2 (08:30→20:35)
[2022-09-09] MEDS: Enoxaparin 40 MG/0.4 ML Syringe SC ×2 (08:30→20:34)
[2022-09-09] MEDS: Ergocalciferol 1.25 MG (50, 000 UNIT) Capsule PO (08:30)
[2022-09-09] MEDS: Dicyclomine 10 MG Capsule PO ×4 (08:30→20:36)
[2022-09-09] MEDS: Fluticasone 0.05% 1 SPRAY NASAL.SRY 2 SPRAY NASAL ×2 (08:40→20:35)
[2022-09-09] MEDS: Lidocaine 5% Patch 1 PATCH TOPICAL (08:42)
[2022-09-09] MEDS: CHLORHEXIDINE GLUC 2% CLOTH 1 EACH TOWELETTE TOPICAL (14:09)
[2022-09-09] MEDS: Ceftriaxone 1 GM/50 ML BAG IV (20:34)
[2022-09-09] MEDS: Atorvastatin Calcium 20 MG Tablet PO (20:35)
[2022-09-09] MEDS: Sertraline 100 MG Tablet PO (20:35)
[2022-09-10] VITALS (13 sets, daily range): BP systolic 106–135; BP diastolic 54–68; PULSE 80–98; RESP 14–19; TEMP 36.6–36.8; O2SAT 94–100; BMI 62.5
[2022-09-10 03:29] LABS: Absolute Lymphocyte Count 2.28 X10^3/uL (0.83-4.51); Absolute Neutrophil Count 3.9 X10^3/uL (2.0-7.7); Basophil# 0.03 X10^3/uL; Basophil% 0.4 % (0-1); Eosinophil# 0.19 X10^3/uL; Eosinophils% 2.7 % (0-5); Hematocrit 35.8 % (37-47); Hemoglobin 10.3 g/dL (12.0-15.0); Lymphocyte # 2.28 X10^3/ul (0.83-4.51); Lymphocyte % 31.9 % (19-41); Mean Corp Hgb Conc 28.8 g/dL (32-36); Mean Corpuscular Hgb 27.1 pg (27.0-32.0); Mean Corpuscular Volume 94.2 fL (81-99); Mean Platelet Vol. 10.9 fl (6.2-12.0); Monocyte# 0.57 X10^3/uL; NRBC Flagged by Analyzer 0 % (0-5); Neutrophil # 3.86 X10^3/uL (2.7-7.7); Neutrophil % 53.9 % (47-70); Platelet Count 214 K/mm3 (150-450); RBC Distribution Width CV 13.8 % (11.6-14.6); RBC Distribution Width SD 47.1 fl (35.1-43.9); White Blood Count 7.2 K/mm3 (4.4-11.0)
[2022-09-10 03:43] LABS: Anion Gap 1 (5-15); BUN 19 mg/dL (7-18); BUN/Creat Ratio 34.7 RATIO (10-20); Calcium,Total 10.3 mg/dL (8.5-10.1); Chloride 96 mmol/L (98-107); Creatinine, Serum 0.55 mg/dL (0.55-1.02); EST Glomerular Filtration Rate 120 mL/min (>60); Est Glom Filt Rate - Afr Amer 146 mL/min (>60); Estimated Creatinine Clearance 101.83 ml/min; Glucose 92 mg/dL (74-106); Potassium 3.7 mmol/L (3.5-5.1); Sodium Level 142 mmol/L (136-145)
[2022-09-10] MEDS: Acetaminophen 325 MG Tablet 650 MG PO ×3 (05:32→21:08)
[2022-09-10] MEDS: Nystatin Powder 15gm Bottle 1 APPLIC TOPICAL ×3 (05:32→21:05)
[2022-09-10] MEDS: cycloBENZAPRine HCl 10 MG Tablet PO ×3 (05:32→21:03)
--- NOTE | 2022-09-10 05:53 | PCM.PN.INT ---
Assessment & Plan Assessment/Plan (1) UTI (urinary tract infection): PLAN: Plan RECOMMENDATIONS: 1. Continue antimicrobials pending finalized culture results. 2. Continue AVAPS therapy with naps and nightly. 3. Continue supplemental oxygen to maintain saturations at or above 90%. 4. Encourage incentive spirometer use and mobilize patient as tolerated. IMPRESSIONS: 1. Acute on chronic combined respiratory failure The patient has a known supplemental oxygen requirement of 4 L/min at baseline along with what is likely alveolar hypoventilation secondary to obesity, coupled with underlying obstructive sleep apnea, for which the patient is noncompliant with use of conventional PAP therapy. Her mentation as well as CO2 levels improved with noninvasive positive pressure ventilatory support. I would strongly recommend the continued use of AVAPS therapy with naps and nightly. Continue supplemental oxygen via nasal cannula during the day. I would avoid sedating medications. 2. Encephalopathy Resolved. Likely related to acute CO2 retention. This has improved with noninvasive positive pressure ventilatory support. The patient is currently alert and appropriately interactive. Continue supportive measures as noted above. 3. Cystitis Continue supportive measures including antimicrobials, pending finalized culture results. 4. Questionable history of COPD/super morbid obesity/depression/GERD Complicates care, management, recovery and prognosis. Continue aerosol treatments as ordered. Encourage incentive spirometer use and mobilize patient as tolerated. This note was generated with [employer] dictation software. It may contain incorrect words, spelling, and punctuation that were not noted in checking the note before signing. Subjective Subjective The patient was seen and examined at the bedside this morning. Events from the last 24 hours have been reviewed. The patient remains afebrile and hemodynamically stable. She tolerated AVAPS therapy once again overnight. No overnight issues were identified by the nursing staff. Objective Data Objective Data The patient's most recent lab work, culture data and imaging studies have all been personally reviewed. Blood and urine cultures are pending. Vital Signs: Vital Signs Temp Pulse Resp BP Pulse Ox O2 Del Method O2 Flow Rate 98.2 F 80 19 H 121/68 H 98 Bi-pap 3 09/10/22 02:00 09/10/22 04:20 09/10/22 04:20 09/10/22 02:00 09/10/22 04:20 09/10/22 04:00 09/09/22 20:00 FiO2 35 09/10/22 04:20 Oxygen Flow Rate (L/min) 3 Oxygen Delivery Method Bi-pap Weight: 389 lb 1.854 oz Body Mass Index (BMI) 62.5 Intake & Output: Intake and Output for Last 24 Hours 09/08/22 09/09/22 09/10/22 23:59 23:59 23:59 Intake Total 1546.5 / 1546.5 890 / 890 Output Total 1100 / 1100 1225 / 1225 550 / 550 Balance 446.5 / 446.5 -335 / -335 -550 / -550 Lab / Micro Data Attestation: I reviewed the patient's lab results. Result Diagrams: 09/10/22 03:20 09/10/22 03:20 Labs: Laboratory Results - last 24 hr 09/10/22 03:20: WBC 7.2, RBC 3.80 L, Hgb 10.3 L, Hct 35.8 L, MCV 94.2, MCH 27.1, MCHC 28.8 L, RDW Std Deviation 47.1 H, RDW Coeff of David 13.8, Plt Count 214, MPV 10.9, Immature Gran % (Auto) 3.100 H, Neut % (Auto) 53.9, Lymph % (Auto) 31.9, [place] % (Auto) 8.0, Eos % (Auto) 2.7, Baso % (Auto) 0.4, Absolute Neuts (auto) 3.9, Absolute Lymphs (auto) 2.28, Nucleated RBC % 0 09/10/22 03:20: Sodium 142, Potassium 3.7, Chloride 96 L, Carbon Dioxide 45.0 H, Anion Gap 1 L, BUN 19 H, Creatinine 0.55, Estim Creat Clear Calc 101.83, Est GFR (MDRD) Af Amer 146, Est GFR (MDRD) Non-Af 120, BUN/Creatinine Ratio 34.7 H, Glucose 92, Calcium 10.3 H Micro: Microbiology 09/08/22 21:20 Stool Enteric Bacteriology - Preliminary 09/08/22 21:20 Stool C. difficile GDH Antigen & Toxins - Final 09/08/22 21:20 Stool C. difficile DNA Amplification - Final 09/08/22 00:48 Nasal Secretion SARS-CoV-2 & FLU Antigen (Rapid) - Final Physical Exam Const Constitutional Narrative: The patient is super morbidly obese. Resting comfortably in bed. The patient is alert and appropriately interactive. HEENT normocephalic and head/scalp atraumatic Eyes PERRL, EOMs intact bilaterally and conjunctivae normal Neck supple Neck Narrative: Large neck circumference with redundant soft tissue. General: trachea midline Chest inspection of chest normal Resp Resp Narrative: Distant breath sounds secondary to body habitus. Auscultation: Negative for rales, rhonchi or wheezes Cardio regular rate and regular rhythm GI normal to inspection, nondistended, normoactive bowel sounds Extremity General Extremity: edema bilateral lower extremity; Negative for clubbing Skin no rashes or lesions noted Neuro CN's II-XII intact bilaterally and no focal motor deficits Psych cooperative and affect normal Charges/Coding Visit Charges Inpatient E&M: 13827 Subs Hosp L2
[2022-09-10] MEDS: Ipratropium 0.5 MG/2.5 ML SOLUTION INHALATION ×2 (07:08→13:24)
--- NOTE | 2022-09-10 07:22 | PN.HOSP_ITS ---
Reason for Visit Reason for Visit: Diagnoses Acute kidney failure, unspecified (09/08/22) Urinary tract infection, site not specified (09/08/22) Subjective Subjective Patient has been weaned off noninvasive ventilation currently on nasal cannula p rafaela is to transfer to progressive care unit and advance activity as tolerated. Urine cultures grew E. coli remains on ceftriaxone Objective Data Objective Data Vital Signs: Vital Signs Temp Pulse Resp BP Pulse Ox O2 Del Method O2 Flow Rate 98.2 F 88 18 121/68 H 95 Nasal Cannula 2 09/10/22 02:00 09/10/22 07:09 09/10/22 07:09 09/10/22 02:00 09/10/22 07:09 09/10/22 07:09 09/10/22 07:09 FiO2 35 09/10/22 04:20 Oxygen Flow Rate (L/min) 2 Oxygen Delivery Method Nasal Cannula Weight: 176.5 kg Body Mass Index (BMI) 62.5 Intake & Output: Intake and Output for Last 24 Hours 09/08/22 09/09/22 09/10/22 23:59 23:59 23:59 Intake Total 1546.5 / 1546.5 890 / 890 Output Total 1100 / 1100 1225 / 1225 550 / 550 Balance 446.5 / 446.5 -335 / -335 -550 / -550 Lab / Micro Data Result Diagrams: 09/10/22 03:20 09/10/22 03:20 Labs: Laboratory Results - last 24 hr 09/10/22 03:20: WBC 7.2, RBC 3.80 L, Hgb 10.3 L, Hct 35.8 L, MCV 94.2, MCH 27.1, MCHC 28.8 L, RDW Std Deviation 47.1 H, RDW Coeff of David 13.8, Plt Count 214, MPV 10.9, Immature Gran % (Auto) 3.100 H, Neut % (Auto) 53.9, Lymph % (Auto) 31.9, [place] % (Auto) 8.0, Eos % (Auto) 2.7, Baso % (Auto) 0.4, Absolute Neuts (auto) 3.9, Absolute Lymphs (auto) 2.28, Nucleated RBC % 0 09/10/22 03:20: Sodium 142, Potassium 3.7, Chloride 96 L, Carbon Dioxide 45.0 H, Anion Gap 1 L, BUN 19 H, Creatinine 0.55, Estim Creat Clear Calc 101.83, Est GFR (MDRD) Af Amer 146, Est GFR (MDRD) Non-Af 120, BUN/Creatinine Ratio 34.7 H, Glucose 92, Calcium 10.3 H Micro: Microbiology 09/08/22 21:20 Stool Enteric Bacteriology - Final 09/08/22 01:05 Urine, Clean Catch Urine Culture - Final Escherichia coli 09/08/22 01:32 Blood Culture (Wb) - Anticubital Left Blood Culture - Preliminary No growth in 48 hours. 09/08/22 00:48 Blood Culture (Wb) - Anticubital Left Blood Culture - Preli minary No growth in 48 hours. 09/08/22 21:20 Stool C. difficile GDH Antigen & Toxins - Final 09/08/22 21:20 Stool C. difficile DNA Amplification - Final 09/08/22 00:48 Nasal Secretion SARS-CoV-2 & FLU Antigen (Rapid) - Final Physical Exam Narrative GENERAL: Awake and cooperative HEENT: Atraumatic; normocephalic EYES; Anicteric, Normal Conjunctiva NECK; supple, normal thyroid, RESPIRATORY: Diminished to auscultation CARDIOVASCULAR: Regular S1 S2, GI: soft, normoactive bowel sounds, : No Renal angle tenderness; EXTREMITIES: No edema, no clubbing, MUSCULOSKELETAL: no muscle wasting NEURO: Awake; no lateralizing signs. SKIN: No Rash PSYCH; Flat affect Assessment & Plan Assessment/Plan (1) UTI (urinary tract infection): (2) Acute kidney injury: PLAN: Plan Patient is a 61-year-old lady admitted with rigors diagnosed with acute cystitis admitted to regular nursing floor for further management 1. Acute cystitis with E. coli ? Patient admitted to regular nursing floor urine culture sent patient started on broad-spectrum antibiotic therapy With ceftriaxone ? 09/09/2022; urine and blood cultures pending ? 09/10/2022 urine cultures came back positive for E. coli sensitive to ceftriaxone switched to p.o. cefdinir 2. Acute kidney injury Patient baseline creatinine from 07/26/2022 was 0.54 creatinine on admission was 1.47 went up to 1.61 started on IV fluid with subsequent monitoring of electrolytes ordered ? 09/09/2022 kidney function back to baseline 3. Acute metabolic encephalopathy ? Secondary to acute respiratory failure with significant hypercapnia 4. Acute on chronic hypoxic respiratory failure ? Due to combination of sleep apnea and obesity hypoventilation syndrome patient was transferred to the intensive care unit following deterioration in her mental status placed on noninvasive ventilation BiPAP with consultation placed to pulmonary medicine 3. Essential hypertension ? Did continue patient home medication except for losartan 4.? Chronic hypoxic respiratory failure ? Due to obstructive sleep apnea as well as obesity hypoventilation syndrome patient is on baseline oxygen 5.? Obesity hypoventilation syndrome ? Consistent use of BiPAP encouraged 6.? COPD ? Currently not in exacerbation aerosol treatments as needed 7.?Class III obesity with BMI of 63 ? Weight loss advised 9.GERD ? On PPI 10. Depression ? Patient is on SSRI did continue 11. Anemia - Secondary to chronic disorder monitoring H&H and transfuse if patient becomes symptomatic or hemoglobin falls below 7 12. DVT prophylaxis ? SC heparin Time spent in the patient's overall evaluation,decision-making process, review of diagnostic data, adjustment of management, discussion with other providers, nursing nursing and ancillary staff involved in patient's care documentation, 35 minutes Charges/Coding Visit Charges Inpatient E&M: 47422 Subs Hosp L2
[2022-09-10] MEDS: Dicyclomine 10 MG Capsule PO ×4 (08:27→21:03)
[2022-09-10] MEDS: predniSONE 20 MG Tablet 10 MG PO (08:28)
[2022-09-10] MEDS: Amitriptyline 25 MG Tablet PO (08:28)
[2022-09-10] MEDS: Montelukast 10 MG Tablet PO (08:29)
[2022-09-10] MEDS: Pantoprazole Sodium 20 MG Tablet PO ×2 (08:29→21:03)
[2022-09-10] MEDS: Enoxaparin 40 MG/0.4 ML Syringe SC ×2 (08:29→21:04)
[2022-09-10] MEDS: Gabapentin 300 MG Capsule PO ×2 (08:32→21:08)
[2022-09-10] MEDS: Fluticasone 0.05% 1 SPRAY NASAL.SRY 2 SPRAY NASAL ×2 (08:35→21:02)
[2022-09-10] MEDS: Cefdinir 300 MG Capsule PO ×2 (10:24→21:04)
[2022-09-10] MEDS: Loperamide 2 MG Capsule 4 MG PO (10:24)
[2022-09-10] MEDS: Sertraline 100 MG Tablet PO (21:03)
[2022-09-10] MEDS: Atorvastatin Calcium 20 MG Tablet PO (21:03)
[2022-09-11] VITALS (9 sets, daily range): BP systolic 110–122; BP diastolic 59–64; PULSE 80–94; RESP 18; TEMP 36.3–36.7; O2SAT 93–97; BMI 62.5
[2022-09-11] MEDS: Acetaminophen 325 MG Tablet 650 MG PO ×3 (05:16→21:05)
[2022-09-11] MEDS: cycloBENZAPRine HCl 10 MG Tablet PO ×3 (05:17→21:05)
[2022-09-11] MEDS: Dicyclomine 10 MG Capsule PO ×4 (05:17→21:06)
[2022-09-11] MEDS: Nystatin Powder 15gm Bottle 1 APPLIC TOPICAL ×3 (05:17→21:05)
[2022-09-11 05:40] LABS: Absolute Lymphocyte Count 2.17 X10^3/uL (0.83-4.51); Absolute Neutrophil Count 3.5 X10^3/uL (2.0-7.7); Basophil# 0.02 X10^3/uL; Basophil% 0.3 % (0-1); Eosinophil# 0.25 X10^3/uL; Eosinophils% 3.7 % (0-5); Hematocrit 32.7 % (37-47); Hemoglobin 9.9 g/dL (12.0-15.0); Lymphocyte # 2.17 X10^3/ul (0.83-4.51); Lymphocyte % 31.9 % (19-41); Mean Corp Hgb Conc 30.3 g/dL (32-36); Mean Corpuscular Hgb 27.8 pg (27.0-32.0); Mean Corpuscular Volume 91.9 fL (81-99); Monocyte# 0.59 X10^3/uL; Monocyte% 8.7 % (0-10); NRBC Flagged by Analyzer 0 % (0-5); Neutrophil # 3.51 X10^3/uL (2.7-7.7); Neutrophil % 51.6 % (47-70); Platelet Count 207 K/mm3 (150-450); RBC Distribution Width SD 47.1 fl (35.1-43.9); Red Blood Count 3.56 M/mm3 (4.2-5.4); White Blood Count 6.8 K/mm3 (4.4-11.0)
[2022-09-11 05:55] LABS: Anion Gap 3 (5-15); BUN 14 mg/dL (7-18); Chloride 97 mmol/L (98-107); Creatinine, Serum 0.54 mg/dL (0.55-1.02); EST Glomerular Filtration Rate 123 mL/min (>60); Est Glom Filt Rate - Afr Amer 148 mL/min (>60); Estimated Creatinine Clearance 103.71 ml/min; Glucose 105 mg/dL (74-106); Potassium 3.2 mmol/L (3.5-5.1); Sodium Level 142 mmol/L (136-145)
[2022-09-11] MEDS: Gabapentin 300 MG Capsule PO ×2 (09:31→21:08)
[2022-09-11] MEDS: Lidocaine 5% Patch 1 PATCH TOPICAL (09:31)
[2022-09-11] MEDS: Enoxaparin 40 MG/0.4 ML Syringe SC ×2 (09:31→21:06)
[2022-09-11] MEDS: Fluticasone 0.05% 1 SPRAY NASAL.SRY 2 SPRAY NASAL ×2 (09:32→21:11)
[2022-09-11] MEDS: Potassium Chloride Oral Tablet 20 MEQ 40 MEQ PO (09:32)
[2022-09-11] MEDS: predniSONE 20 MG Tablet 10 MG PO (09:32)
[2022-09-11] MEDS: Montelukast 10 MG Tablet PO (09:32)
[2022-09-11] MEDS: Pantoprazole Sodium 20 MG Tablet PO ×2 (09:32→21:05)
[2022-09-11] MEDS: Cefdinir 300 MG Capsule PO ×2 (09:32→21:05)
--- NOTE | 2022-09-11 10:51 | WOUNDNOTE ---
Was asked to see patient for small superficial open area to the right pannus. in with nursing to assess. there is some mild redness noted. no drainage noted. patient has orders for nystatin powder to be applied to the folds. appears stable at this time. no need for further wound care at this time.
--- NOTE | 2022-09-11 11:58 | PCM.PN.HOSP ---
Subjective Subjective Resting comfortably, no issues overnight Objective Data Objective Data Vital Signs: Vital Signs Temp Pulse Resp BP Pulse Ox O2 Del Method O2 Flow Rate 97.3 F L 89 18 110/64 96 Nasal Cannula 3 09/11/22 09:27 09/11/22 11:00 09/11/22 09:27 09/11/22 09:27 09/11/22 09:27 09/11/22 10:48 09/11/22 10:48 FiO2 30 09/11/22 00:32 Oxygen Flow Rate (L/min) 3 Oxygen Delivery Method Nasal Cannula Weight: 389 lb 1.854 oz Body Mass Index (BMI) 62.5 Intake & Output: Intake and Output for Last 24 Hours 09/10/22 09/11/22 09/12/22 03:59 03:59 03:59 Intake Total 890 / 890 660 / 660 200 / 200 Output Total 1775 / 1775 725 / 725 Balance -885 / -885 -65 / -65 200 / 200 Lab / Micro Data Result Diagrams: 09/11/22 05:30 09/11/22 05:30 Labs: Laboratory Results - last 24 hr 09/11/22 05:30: WBC 6.8, RBC 3.56 L, Hgb 9.9 L, Hct 32.7 L, MCV 91.9, MCH 27.8, MCHC 30.3 L D, RDW Std Deviation 47.1 H, RDW Coeff of David 14.0, Plt Count 207, MPV 11.0, Immature Gran % (Auto) 3.800 H, Neut % (Auto) 51.6, Lymph % (Auto) 31.9, [place] % (Auto) 8.7, Eos % (Auto) 3.7, Baso % (Auto) 0.3, Absolute Neuts (auto) 3.5, Absolute Lymphs (auto) 2.17, Nucleated RBC % 0 09/11/22 05:30: Sodium 142, Potassium 3.2 L, Chloride 97 L, Carbon Dioxide 42.0 H, Anion Gap 3 L, BUN 14, Creatinine 0.54 L, Estim Creat Clear Calc 103.71, Est GFR (MDRD) Af Amer 148, Est GFR (MDRD) Non-Af 123, BUN/Creatinine Ratio 26.0 H, Glucose 105, Calcium 10.0 Micro: Microbiology 09/08/22 21:20 Stool Enteric Bacteriology - Final 09/08/22 01:05 Urine, Clean Catch Urine Culture - Final Escherichia coli 09/08/22 01:32 Blood Culture (Wb) - Anticubital Left Blood Culture - Preliminary No growth in 48 hours. 09/08/22 00:48 Blood Culture (Wb) - Anticubital Left Blood Culture - Preliminary No growth in 48 hours. 09/08/22 21:20 Stool C. difficile GDH Antigen & Toxins - Final 09/08/22 21:20 Stool C. difficile DNA Amplification - Final 09/08/22 00:48 Nasal Secretion SARS-CoV-2 & FLU Antigen (Rapid) - Final Physical Exam Narrative General: Sleeping but arousable, Cooperative, No apparent distress HEENT: Atraumatic, PERRLA, EOMI, Normocephalic Oral: Moist Mucosa Neck: Supple, No JVD Lungs: Diminished, Normal air movement, No rhonchi, No wheeze, No rales Cardiovascular: Regular rate, Regular Rhythm, Normal S1, Normal S2, No murmurs Abdomen: Soft, Non Tender, Non-Distended, No Hepato-splenomegaly Extremities: No edema, Capillary Refill Less than 3 Seconds Skin: No rashes, No breakdown Musculoskeletal: No Tenderness to Palpation of Joints or Extremities Neurological: Motor Exam 5/5 strength throughout, Sensory exam intact to light touch and pain Psych/Mental Status: Flat Affect Assessment & Plan Assessment/Plan (1) UTI (urinary tract infection): (2) Acute kidney injury: PLAN: Plan 1. Acute cystitis with E. coli ? Patient admitted to regular nursing floor urine culture sent patient started on broad-spectrum antibiotic therapy With ceftriaxone ? 09/09/2022; urine and blood cultures pending ? 09/10/2022 urine cultures came back positive for E. coli sensitive to ceftriaxone switched to p.o. cefdinir ? 09/11/2022: Continue with cefdinir we will discuss with case management discharge planning 2. Acute kidney injury Patient baseline creatinine from 07/26/2022 was 0.54 creatinine on admission was 1.47 went up to 1.61 started on IV fluid with subsequent monitoring of electrolytes ordered ? 09/09/2022 kidney function back to baseline 3. Acute metabolic encephalopathy ? Secondary to acute respiratory failure with significant hypercapnia neck ?09/11/2022: Appears to be resolved 4. Acute on chronic hypoxic respiratory failure ? Due to combination of sleep apnea and obesity hypoventilation syndrome patient was transferred to the intensive care unit following deterioration in her mental status placed on noninvasive ventilation BiPAP with consultation placed to pulmonary medicine ? 09/11/2022: She is maintaining her oxygen on 3 L nasal cannula we will continue with AVAPS while here at sleep and also when discharged back to the skilled nursing 3. Essential hypertension ? Did continue patient home medication except for losartan 4.? Chronic hypoxic respiratory failure ? Due to obstructive sleep apnea as well as obesity hypoventilation syndrome patient is on baseline oxygen 5.? Obesity hypoventilation syndrome ? Consistent use of BiPAP encouraged 6.? COPD ? Currently not in exacerbation aerosol treatments as needed 7.?Class III obesity with BMI of 63 ? Weight loss advised 9.GERD ? On PPI 10. Depression ? Patient is on SSRI did continue DVT: Heparin Charges/Coding Visit Charges Inpatient E&M: 85878 Subs Hosp L2
--- NOTE | 2022-09-11 12:37 | PN.CC_ITS ---
Assessment & Plan Assessment/Plan (1) Chronic respiratory failure: PLAN: Patient is in the process of transitioning to outpatient status and hospital discharge. Recommend consistent nocturnal and nap use of her usual BiPAP. She is likely to be readmitted in a short period of time if she is noncompliant with her BiPAP, which has been her usual pattern. Patient advised to wear BiPAP all night every night and with naps. Please see AVAPS settings above near vital signs for additional guidance, although it is more important for her to resume her usual BiPAP settings and use it as directed.. Pulmonary critical care will sign off for now, thank you for asking us to participate in this pleasant patient's care. Subjective Subjective No complaints, patient was encountered looking at her cell phone, stated that she feels like she does at home. She is looking forward to going home today. Denies dyspnea, states she is wearing the AVAPS mask at night. She stated she would wear the BiPAP machine when she gets back to it. Objective Data Objective Data Patient transferred out of ICU to regular floor uneventfully yesterday. Vital Signs: Vital Signs Temp Pulse Resp BP Pulse Ox O2 Del Method O2 Flow Rate 97.3 F L 89 18 110/64 96 Nasal Cannula 3 09/11/22 09:27 09/11/22 11:00 09/11/22 09:27 09/11/22 09:27 09/11/22 09:27 09/11/22 10:48 09/11/22 10:48 FiO2 30 09/11/22 00:32 Oxygen Flow Rate (L/min) 3 Oxygen Delivery Method Nasal Cannula Weight: 389 lb 1.854 oz Body Mass Index (BMI) 62.5 Current AVAPS settings: Tidal volume 450, rate 18, FiO2 30%, EPAP 18. Minimum pressure support 16, maximum pressure support 24, inspiratory time 1.15 seconds. Intake & Output: Intake and Output for Last 24 Hours 09/09/22 09/10/22 09/11/22 23:59 23:59 23:59 Intake Total 890 / 890 660 / 660 200 / 200 Output Total 1225 / 1225 1275 / 1275 Balance -335 / -335 -615 / -615 200 / 200 Lab / Micro Data Attestation: I reviewed the patient's lab results. Result Diagrams: 09/11/22 05:30 09/11/22 05:30 Labs: Laboratory Results - last 24 hr 09/11/22 05:30: WBC 6.8, RBC 3.56 L, Hgb 9.9 L, Hct 32.7 L, MCV 91.9, MCH 27.8, MCHC 30.3 L D, RDW Std Deviation 47.1 H, RDW Coeff of David 14.0, Plt Count 207, MPV 11.0, Immature Gran % (Auto) 3.800 H, Neut % (Auto) 51.6, Lymph % (Auto) 31.9, [place] % (Auto) 8.7, Eos % (Auto) 3.7, Baso % (Auto) 0.3, Absolute Neuts (auto) 3.5, Absolute Lymphs (auto) 2.17, Nucleated RBC % 0 09/11/22 05:30: Sodium 142, Potassium 3.2 L, Chloride 97 L, Carbon Dioxide 42.0 H, Anion Gap 3 L, BUN 14, Creatinine 0.54 L, Estim Creat Clear Calc 103.71, Est GFR (MDRD) Af Amer 148, Est GFR (MDRD) Non-Af 123, BUN/Creatinine Ratio 26.0 H, Glucose 105, Calcium 10.0 Micro: Microbiology 09/08/22 21:20 Stool Enteric Bacteriology - Final 09/08/22 01:05 Urine, Clean Catch Urine Culture - Final Escherichia coli 09/08/22 01:32 Blood Culture (Wb) - Anticubital Left Blood Culture - Preliminary No growth in 48 hours. 09/08/22 00:48 Blood Culture (Wb) - Anticubital Left Blood Culture - Preliminary No growth in 48 hours. 09/08/22 21:20 Stool C. difficile GDH Antigen & Toxins - Final 09/08/22 21:20 Stool C. difficile DNA Amplification - Final 09/08/22 00:48 Nasal Secretion SARS-CoV-2 & FLU Antigen (Rapid) - Final Physical Exam Narrative Morbidly obese woman with BMI of 62.8, no acute distress. Awake alert and oriented, verbal, responds appropriately. HEENT on nasal cannula Breathing chronically labored while supine, using accessory muscles due to increased work of breathing from adiposity No cough no sputum. Charges/Coding Visit Charges Inpatient E&M: 56862 Subs Hosp L1
[2022-09-11] MEDS: Loperamide 2 MG Capsule 4 MG PO (17:46)
[2022-09-11] MEDS: Sertraline 100 MG Tablet PO (21:06)
[2022-09-11] MEDS: Atorvastatin Calcium 20 MG Tablet PO (21:06)
[2022-09-12] VITALS (8 sets, daily range): BP systolic 117–137; BP diastolic 63–68; PULSE 77–97; RESP 16–19; TEMP 36.4–36.6; O2SAT 94–96; BMI 62.4
[2022-09-12] MEDS: Acetaminophen 325 MG Tablet 650 MG PO ×2 (05:01→14:09)
[2022-09-12] MEDS: cycloBENZAPRine HCl 10 MG Tablet PO ×2 (05:01→14:09)
[2022-09-12] MEDS: Nystatin Powder 15gm Bottle 1 APPLIC TOPICAL ×2 (05:02→14:10)
[2022-09-12] MEDS: Dicyclomine 10 MG Capsule PO ×2 (06:34→11:31)
[2022-09-12 07:28] LABS: Absolute Lymphocyte Count 2.55 X10^3/uL (0.83-4.51); Absolute Neutrophil Count 3.1 X10^3/uL (2.0-7.7); Basophil# 0.06 X10^3/uL; Basophil% 0.9 % (0-1); Eosinophil# 0.19 X10^3/uL; Eosinophils% 2.7 % (0-5); Hemoglobin 9.9 g/dL (12.0-15.0); Lymphocyte # 2.55 X10^3/ul (0.83-4.51); Lymphocyte % 36.7 % (19-41); Mean Corp Hgb Conc 28.3 g/dL (32-36); Mean Corpuscular Hgb 26.7 pg (27.0-32.0); Mean Corpuscular Volume 94.3 fL (81-99); Mean Platelet Vol. 10.8 fl (6.2-12.0); Monocyte# 0.76 X10^3/uL; NRBC Flagged by Analyzer 0 % (0-5); Neutrophil # 3.11 X10^3/uL (2.7-7.7); Neutrophil % 44.8 % (47-70); Platelet Count 228 K/mm3 (150-450); RBC Distribution Width CV 13.7 % (11.6-14.6); RBC Distribution Width SD 47.5 fl (35.1-43.9); Red Blood Count 3.71 M/mm3 (4.2-5.4); White Blood Count 6.9 K/mm3 (4.4-11.0)
[2022-09-12 08:00] LABS: Anion Gap -4 (5-15); BUN 14 mg/dL (7-18); BUN/Creat Ratio 25.9 RATIO (10-20); Calcium,Total 9.9 mg/dL (8.5-10.1); Chloride 99 mmol/L (98-107); Creatinine, Serum 0.54 mg/dL (0.55-1.02); EST Glomerular Filtration Rate 122 mL/min (>60); Est Glom Filt Rate - Afr Amer 147 mL/min (>60); Estimated Creatinine Clearance 103.71 ml/min; Glucose 95 mg/dL (74-106); Potassium 3.4 mmol/L (3.5-5.1); Sodium Level 140 mmol/L (136-145)
[2022-09-12] MEDS: Montelukast 10 MG Tablet PO (09:05)
[2022-09-12] MEDS: Cefdinir 300 MG Capsule PO (09:05)
[2022-09-12] MEDS: Gabapentin 300 MG Capsule PO (09:05)
[2022-09-12] MEDS: predniSONE 20 MG Tablet 10 MG PO (09:05)
[2022-09-12] MEDS: Amitriptyline 25 MG Tablet PO (09:05)
[2022-09-12] MEDS: Enoxaparin 40 MG/0.4 ML Syringe SC (09:05)
[2022-09-12] MEDS: Pantoprazole Sodium 20 MG Tablet PO (09:05)
[2022-09-12] MEDS: Lidocaine 5% Patch 1 PATCH TOPICAL (09:05)
[2022-09-12] MEDS: Fluticasone 0.05% 1 SPRAY NASAL.SRY 2 SPRAY NASAL (09:07)
--- NOTE | 2022-09-12 12:16 | PCM.TXEXTCAR ---
Diet Diet Order/Speech Therapy: 09/08/22 03:43 Diet: Cardiac - Heart Healthy Food consistency:: Regular Liquid Consistency:: Regular/Thin Is pt able to select menu?: Yes Routine Orders/Code Status Routine Lab Work: CBC and BMP Code Status: Full Code Wound(s) pannus: Wound Type: Reddened Therapies Physical Therapy: Eval and Treat Occupational Therapy: Eval and Treat Problem/Diagnosis (1) Chronic respiratory failure: Status: Chronic Code(s): J96.10 - Chronic respiratory failure, unspecified whether with hypoxia or hypercapnia Plan 1. Acute cystitis with E. coli ? Patient admitted to regular nursing floor urine culture sent patient started on broad-spectrum antibiotic therapy With ceftriaxone ? 09/09/2022; urine and blood cultures pending ? 09/10/2022 urine cultures came back positive for E. coli sensitive to ceftriaxone switched to p.o. cefdinir ? 09/11/2022: Continue with cefdinir we will discuss with case management discharge planning 2. Acute kidney injury Patient baseline creatinine from 07/26/2022 was 0.54 creatinine on admission was 1.47 went up to 1.61 started on IV fluid with subsequent monitoring of electrolytes ordered ? 09/09/2022 kidney function back to baseline 3. Acute metabolic encephalopathy ? Secondary to acute respiratory failure with significant hypercapnia neck ?09/11/2022: Appears to be resolved 4. Acute on chronic hypoxic respiratory failure ? Due to combination of sleep apnea and obesity hypoventilation syndrome patient was transferred to the intensive care unit following deterioration in her mental status placed on noninvasive ventilation BiPAP with consultation placed to pulmonary medicine ? 09/11/2022: She is maintaining her oxygen on 3 L nasal cannula we will continue with AVAPS while here at sleep and also when discharged back to the senior living 3. Essential hypertension ? Did continue patient home medication except for losartan 4.? Chronic hypoxic respiratory failure ? Due to obstructive sleep apnea as well as obesity hypoventilation syndrome patient is on baseline oxygen 5.? Obesity hypoventilation syndrome ? Consistent use of BiPAP encouraged 6.? COPD ? Currently not in exacerbation aerosol treatments as needed 7.?Class III obesity with BMI of 63 ? Weight loss advised 9.GERD ? On PPI 10. Depression ? Patient is on SSRI did continue DVT: Heparin Allergies/Procedures Done in Hospital Allergies aspirin Allergy (Verified 09/08/22 00:15) Other black pepper [pepper] Allergy (Verified 09/08/22 00:15) Other coconut Allergy (Verified 09/08/22 00:15) Other codeine Allergy (Verified 09/08/22 00:15) Other ibuprofen Allergy (Verified 09/08/22 00:15) Other Influenza Virus Vaccines Allergy (Verified 09/08/22 00:15) Other Penicillins Allergy (Verified 09/08/22 00:15) Anaphylaxis rice Allergy (Verified 09/08/22 00:15) Other tetanus and diphtheria toxoids Allergy (Verified 09/08/22 00:15) Other Tetanus Vaccines and Toxoid Allergy (Verified 09/08/22 00:15) Other Procedures: None Type of Care/Length of Stay Estimated LOS: Convalescent Care Less Than 30 days Type of Care Needed: Skilled Rehab Potential: Good Prognosis: Good Additional Orders/Day of Discharge Day of Discharge: 09/12/22 Dietary and Speech Recommendations Dietitian Recommendations/Changes: Continue Cardiac diet to manage medical conditions. Discharge Plan Admission Admit Date/Time: 09/08/22 02:57 Attending Provider: Yomi Lorenzo Primary Care Provider: Sepideh Patterson Consulting Providers: Jayme Corea ; Otoniel Mei ; Hugo Templeton ; Pawel Oswald ; Aguila Merchant ; Yessica Morales NP ; Ab Pascual Discharge Orders/Prescriptions Prescriptions: New cefdinir 300 mg Capsule 300 mg PO Q12 3 Days Qty: 0 0RF Continued losartan 50 mg Tablet 50 mg PO DAILY cyclobenzaprine 10 mg Tablet 10 mg PO TID acetaminophen 325 mg Tablet 650 mg PO Q4H PRN PRN (Reason: Pain) atorvastatin 20 mg Tablet 20 mg PO QHS lidocaine 4 % Adhesive Patch,Medicated 1 patch TOPICAL DAILY PRN (Reason: Pain) Rx Instructions: APPLY TO BOTH SHOULDERS sertraline [Zoloft] 100 mg Tablet 100 mg PO QHS famotidine 20 mg Tablet 20 mg PO BID amitriptyline 25 mg Tablet 25 mg PO QODAY montelukast 10 mg Tablet 10 mg PO DAILY ergocalciferol (vitamin D2) [Vitamin D2] 1,250 mcg (50,000 unit) Capsule 1,250 mcg PO SA fluticasone propionate 50 mcg/actuation [place],Suspension 2 spray INTRANASAL BID omeprazole 20 mg Tablet,Delayed Release (Dr/Ec) 20 mg PO BID roflumilast [Daliresp] 500 mcg Tablet 500 mcg PO DAILY Spiriva Respimat 2.5 mcg/actuation Mist 2 puff INHALATION QHS dicyclomine 10 mg Capsule 10 mg PO 4X/DAY Qty: 1 0RF nystatin [Nyamyc] 100,000 unit/gram powder 1 applic topical TID Protocol: *Topical Application Instructions APPLICATION INSTRUCTIONS: affected areas gabapentin 300 mg Capsule 300 mg PO BID furosemide 40 mg tablet 40 mg PO DAILY Qty: 30 0RF prednisone 20 mg tablet 10 mg PO DAILY albuterol sulfate 90 mcg/actuation Hfa Aerosol Inhaler 2 puff INHALATION Q2H PRN (Reason: SOB) Referrals / Follow Up: Sepideh Patterson MD [Primary Care Provider] - Disposition Disposition (needs filled in before D/C Order can be placed): Long Term Facility
--- NOTE | 2022-09-12 12:40 | CASEMGMT ---
Discharge Planning Discharge orders and signed med list sent to [facility] to [facility] with [facility]. Payal Li
--- NOTE | 2022-09-12 13:15 | DS.PCM_ITS ---
Providers Date of Admission: 09/08/22 Primary Care Physician: Dr. Sepideh Patterson MD Consultations 09/08/22 03:43 Consult: Onc/Wound/cab supervisor Routine Comment: 09/08/22 14:31 Consult: Spectrographic Analyst / Pulmonary Medicine Routine Consulting Provider: Pulmonary Medicine memo [place] Reason for Consult: Acute respiratory failure EMERGENT Consult: Yes MD Notified: Yes Date Notified: 09/08/22 Time Notified: 12:45 Method of Notification: Text Reason For Visit: UTI Diagnosis Discharge Diagnosis (1) Chronic respiratory failure: Status: Chronic Code(s): J96.10 - Chronic respiratory failure, unspecified whether with hypoxia or hypercapnia Medications at Discharge Home Medications acetaminophen 325 mg tablet 650 mg PO Q4H PRN PRN Pain 05/03/22 amitriptyline 25 mg tablet 25 mg PO QODAY DEPRESSION 05/03/22 atorvastatin 20 mg tablet 20 mg PO QHS CHOLESTEROL 05/03/22 cyclobenzaprine 10 mg tablet 10 mg PO TID Check with primary doctor 05/03/22 ergocalciferol (vitamin D2) 1,250 mcg (50,000 unit) capsule (Vitamin D2) 1,250 mcg PO SA SUPPLEMENT 05/03/22 famotidine 20 mg tablet 20 mg PO BID GERD 05/03/22 fluticasone propionate 50 mcg/actuation nasal spray,suspension 2 spray intranasal BID NASAL CONGESTION 05/03/22 lidocaine 4 % topical patch 1 patch topical DAILY PRN Pain 05/03/22 losartan 50 mg tablet 50 mg PO DAILY BLOOD PRESSURE 05/03/22 montelukast 10 mg tablet 10 mg PO DAILY ALLERGIES 05/03/22 omeprazole 20 mg tablet,delayed release 20 mg PO BID GERD 05/03/22 roflumilast 500 mcg tablet (Daliresp) 500 mcg PO DAILY ASTHMA 05/03/22 sertraline 100 mg tablet (Zoloft) 100 mg PO QHS DEPRESSION 05/03/22 tiotropium bromide 2.5 mcg/actuation mist for inhalation (Spiriva Respimat) 2 puff inhalation QHS ASTHMA 05/03/22 dicyclomine 10 mg capsule 10 mg PO 4X/DAY #1 cap 05/05/22 nystatin 100,000 unit/gram topical powder (Nyamyc) 1 applic topical TID affected areas 05/14/22 gabapentin 300 mg capsule 300 mg PO BID NEUROPATHY 05/28/22 furosemide 40 mg tablet 40 mg PO DAILY #30 tabs 05/30/22 albuterol sulfate 90 mcg/actuation aerosol inhaler 2 puff inhalation Q2H PRN SOB 09/08/22 prednisone 20 mg tablet 10 mg PO DAILY Check with primary doctor 09/08/22 cefdinir 300 mg capsule 300 mg PO Q12 3 days #0 caps 09/12/22 Hospital Course Operations None Procedures None Summary of Care Provided Minutes Spent on Discharge: 38 Hospital Course: Per HPI: HE TRAYLOR, is a 61 F who presents with reported rigors.-Going on for the past couple days.? Patient was also sent in because her pulse ox was low in the 70s despite using 4 L of oxygen.? Patient is to be using a BiPAP at night which she says she uses when she does not need the outlets otherwise she will use it so she can plug her phone and her fan.? In the ER, patient sats were in the 90s.? Patient was found to have a urinary tract infection and did receive ceftriaxone.? Her creatinine was elevated at 1.47, up from 0.54 from July 26.? Patient is breathing fine and did not require any additional oxygen beyond her 4 L. Hospital Course: 1.? Acute cystitis with E. coli ? Patient admitted to regular nursing floor urine culture sent patient started on broad-spectrum antibiotic therapy With ceftriaxone ? 09/09/2022; urine and blood cultures pending ? 09/10/2022 urine cultures came back positive for E. coli sensitive to ceftriaxone switched to p.o. cefdinir ? 09/11/2022: Continue with cefdinir we will discuss with case management discharge planning ? 09/11/2022: We will do 3 more days of cefdinir to complete a 7-day course 2.? Acute kidney injury Patient baseline creatinine from 07/26/2022 was 0.54 creatinine on admission was 1.47 went up to 1.61 started on IV fluid with subsequent monitoring of electrolytes ordered ? 09/09/2022 kidney function back to baseline 3.? Acute metabolic encephalopathy ? Secondary to acute respiratory failure with significant hypercapnia neck ?09/11/2022: Appears to be resolved 4.? Acute on chronic hypoxic respiratory failure/obesity hypoventilation syndrome/COPD not in exacerbation ? Due to combination of sleep apnea and obesity hypoventilation syndrome patient was transferred to the intensive care unit following deterioration in her mental status placed on noninvasive ventilation BiPAP with consultation placed to pulmonary medicine ? 09/11/2022: She is maintaining her oxygen on 3 L nasal cannula we will continue with AVAPS when discharged to SNF, discussed with her that she needs to wear it both at night as well as whenever she naps 5.? Essential hypertension ? Did continue patient home medication 6.?Class III obesity with BMI of 63 ? Weight loss advised 7.GERD ? On PPI 8.? Depression ? Patient is on SSRI did continue Physical Exam Narrative General: Alert, oriented x3, Cooperative, No apparent distress HEENT: Atraumatic, PERRLA, EOMI, Normocephalic Oral: Moist Mucosa Neck: Supple, No JVD Lungs: Diminished, Normal air movement, No rhonchi, No wheeze, No rales Cardiovascular: Regular rate, Regular Rhythm, Normal S1, Normal S2, No murmurs Abdomen: Soft, Non Tender, Non-Distended, No Hepato-splenomegaly Extremities: No edema, Capillary Refill Less than 3 Seconds Skin: No rashes, No breakdown Musculoskeletal: No Tenderness to Palpation of Joints or Extremities Neurological: Motor Exam 5/5 strength throughout, Sensory exam intact to light touch and pain Psych/Mental Status: Normal affect Weight / BMI Weight Weight: 388 lb 7.272 oz Body Mass Index (BMI) 62.4 ABG / Lab / Microbiology Data Result Diagrams: 09/12/22 07:15 09/12/22 07:15 Laboratory: Laboratory Results - last 24 hr 09/12/22 07:15: WBC 6.9, RBC 3.71 L, Hgb 9.9 L, Hct 35.0 L, MCV 94.3, MCH 26.7 L , MCHC 28.3 L D, RDW Std Deviation 47.5 H, RDW Coeff of David 13.7, Plt Count 228, MPV 10.8, Immature Gran % (Auto) 3.900 H, Neut % (Auto) 44.8 L, Lymph % (Auto) 36.7, [place] % (Auto) 11.0 H, Eos % (Auto) 2.7, Baso % (Auto) 0.9, Absolute Neuts (auto) 3.1, Absolute Lymphs (auto) 2.55, Nucleated RBC % 0 09/12/22 07:15: Sodium 140, Potassium 3.4 L, Chloride 99, Carbon Dioxide 45.0 H, Anion Gap -4 L, BUN 14, Creatinine 0.54 L, Estim Creat Clear Calc 103.71, Est GFR (MDRD) Af Amer 147, Est GFR (MDRD) Non-Af 122, BUN/Creatinine Ratio 25.9 H, Glucose 95, Calcium 9.9 Microbiology: Microbiology 09/08/22 21:20 Stool Enteric Bacteriology - Final 09/08/22 01:05 Urine, Clean Catch Urine Culture - Final Escherichia coli 09/08/22 01:32 Blood Culture (Wb) - Anticubital Left Blood Culture - Preliminary No growth in 48 hours. 09/08/22 00:48 Blood Culture (Wb) - Anticubital Left Blood Culture - Preliminary No growth in 48 hours. 09/08/22 21:20 Stool C. difficile GDH Antigen & Toxins - Final 09/08/22 21:20 Stool C. difficile DNA Amplification - Final 09/08/22 00:48 Nasal Secretion SARS-CoV-2 & FLU Antigen (Rapid) - Final Meaningful Use Info Meaningful Use Diagnoses (Choose all that apply): None applicable Discharge Plan Admission Admit Date/Time: 09/08/22 02:57 Attending Provider: Yomi Lorenzo Primary Care Provider: Sepideh Patterson Consulting Providers: Jayme Corea ; Otoniel Mei ; Hugo Templeton ; Pawel Oswald ; Aguila Merchant ; Yessica Morales ARTIFACTS CONSERVATOR ; Ab Pascual Discharge Orders/Prescriptions Prescriptions: New cefdinir 300 mg Capsule 300 mg PO Q12 3 Days Qty: 0 0RF Continued losartan 50 mg Tablet 50 mg PO DAILY cyclobenzaprine 10 mg Tablet 10 mg PO TID acetaminophen 325 mg Tablet 650 mg PO Q4H PRN PRN (Reason: Pain) atorvastatin 20 mg Tablet 20 mg PO QHS lidocaine 4 % Adhesive Patch,Medicated 1 patch TOPICAL DAILY PRN (Reason: Pain) Rx Instructions: APPLY TO BOTH SHOULDERS sertraline [Zoloft] 100 mg Tablet 100 mg PO QHS famotidine 20 mg Tablet 20 mg PO BID amitriptyline 25 mg Tablet 25 mg PO QODAY montelukast 10 mg Tablet 10 mg PO DAILY ergocalciferol (vitamin D2) [Vitamin D2] 1,250 mcg (50,000 unit) Capsule 1,250 mcg PO SA fluticasone propionate 50 mcg/actuation [place],Suspension 2 spray INTRANASAL BID omeprazole 20 mg Tablet,Delayed Release (Dr/Ec) 20 mg PO BID roflumilast [Daliresp] 500 mcg Tablet 500 mcg PO DAILY Spiriva Respimat 2.5 mcg/actuation Mist 2 puff INHALATION QHS dicyclomine 10 mg Capsule 10 mg PO 4X/DAY Qty: 1 0RF nystatin [Nyamyc] 100,000 unit/gram powder 1 applic topical TID Protocol: *Topical Application Instructions APPLICATION INSTRUCTIONS: affected areas gabapentin 300 mg Capsule 300 mg PO BID furosemide 40 mg tablet 40 mg PO DAILY Qty: 30 0RF prednisone 20 mg tablet 10 mg PO DAILY albuterol sulfate 90 mcg/actuation Hfa Aerosol Inhaler 2 puff INHALATION Q2H PRN (Reason: SOB) Referrals / Follow Up: Sepideh Patterson MD [Primary Care Provider] - Disposition Disposition (needs filled in before D/C Order can be placed): [facility] Charges/Coding Visit Charges Inpatient E&M: 55948 Disch Hosp >30min
--- NOTE | 2022-09-12 13:27 | CASEMGMT ---
Sw contacted [facility] to arrange transport for patient's scheduled discharge for today. [facility] reported that they will not approve a cot for patient, only wheelchair. Due to patient being bedbound and immobile patient requires cot for discharge. Sw contacted [facility] who reports they are able to transport patient. Transport scheduled for 3:oop today. Sw updated patient of discharge/ transport time. Patient stated that she would inform her family and boyfriend. No other sw needs identified at this time. Bruno Barron, [employer]IVER, MAIL SORTER
--- NOTE | 2022-09-12 13:27 | PHA.DC.MR ---
Pharmacy Service has performed discharge medication reconciliation for this patient. The patient's discharge medication list was reviewed for discrepancies and discrepancies were resolved. Home Medications acetaminophen 325 mg tablet 650 mg PO Q4H PRN PRN Pain 05/03/22 amitriptyline 25 mg tablet 25 mg PO QODAY DEPRESSION 05/03/22 atorvastatin 20 mg tablet 20 mg PO QHS CHOLESTEROL 05/03/22 cyclobenzaprine 10 mg tablet 10 mg PO TID Check with primary doctor 05/03/22 ergocalciferol (vitamin D2) 1,250 mcg (50,000 unit) capsule (Vitamin D2) 1,250 mcg PO SA SUPPLEMENT 05/03/22 famotidine 20 mg tablet 20 mg PO BID GERD 05/03/22 fluticasone propionate 50 mcg/actuation nasal spray,suspension 2 spray intranasal BID NASAL CONGESTION 05/03/22 lidocaine 4 % topical patch 1 patch topical DAILY PRN Pain 05/03/22 losartan 50 mg tablet 50 mg PO DAILY BLOOD PRESSURE 05/03/22 montelukast 10 mg tablet 10 mg PO DAILY ALLERGIES 05/03/22 omeprazole 20 mg tablet,delayed release 20 mg PO BID GERD 05/03/22 roflumilast 500 mcg tablet (Daliresp) 500 mcg PO DAILY ASTHMA 05/03/22 sertraline 100 mg tablet (Zoloft) 100 mg PO QHS DEPRESSION 05/03/22 tiotropium bromide 2.5 mcg/actuation mist for inhalation (Spiriva Respimat) 2 puff inhalation QHS ASTHMA 05/03/22 dicyclomine 10 mg capsule 10 mg PO 4X/DAY #1 cap 05/05/22 nystatin 100,000 unit/gram topical powder (Nyamyc) 1 applic topical TID affected areas 05/14/22 gabapentin 300 mg capsule 300 mg PO BID NEUROPATHY 05/28/22 furosemide 40 mg tablet 40 mg PO DAILY #30 tabs 05/30/22 albuterol sulfate 90 mcg/actuation aerosol inhaler 2 puff inhalation Q2H PRN SOB 09/08/22 prednisone 20 mg tablet 10 mg PO DAILY Check with primary doctor 09/08/22 cefdinir 300 mg capsule 300 mg PO Q12 3 days #0 caps 09/12/22
--- NOTE | 2022-09-12 14:03 | NURSING ---
report called to [facility], spoke with Iza @ 1400, pt will DC @ 1500 via medical transport.
== END 2022-09-12 16:09 | disposition skilled nursing facility (03) | DRG 689 ==
LOC: ED 02:38 → MS3 03:07 → ICU 13:22 → PCU 09-11 07:06 → ICU 09-12 13:15 → PCU 09-12 13:15
PROVIDERS: Internal Medicine; Emergency Provider Emergency Medicine; PCP Internal Medicine; Visit Provider Family Medicine
DX: N30.00 Acute cystitis without hematuria (principal); G93.41 Metabolic encephalopathy; J96.21 Acute and chronic respiratory failure with hypoxia; N17.9 Acute kidney failure, unspecified; Z68.44 Body mass index [BMI] 60.0-69.9, adult; E66.2 Morbid (severe) obesity with alveolar hypoventilation; E87.29 Other acidosis; J44.9 Chronic obstructive pulmonary disease, unspecified; M79.7 Fibromyalgia; K21.9 Gastro-esophageal reflux disease without esophagitis; E78.5 Hyperlipidemia, unspecified; I10 Essential (primary) hypertension; Z87.891 Personal history of nicotine dependence; B96.20 Unspecified Escherichia coli [E. coli] as the cause of diseases classified elsewhere; Z79.82 Long term (current) use of aspirin; F32.A Depression, unspecified
CPT/HCPCS: 36415; 36600; 71045; 80048; 80053; 81001; 82803; 82962; 83605; 83735; 83880; 84100; 84484; 85025; 85379; 87040; 87086; 87088; 87186; 87428; 87506; 94003; 94640; 94762; 97110; 97163; 97165; 97166; 99285; J7030; A4216

== ENCOUNTER → 2022-09-13 05:00 | Outpatient (REF) | payer MEDICARE, MEDICAID, SELFPAY ==
[2022-09-13 09:38] LABS: Anion Gap 3 (5-15); BNP,B-Type NATRIURETIC PEPTIDE 17.3 pg/mL (0-100); BUN 17 mg/dL (7-18); BUN/Creat Ratio 27.5 RATIO (10-20); Calcium,Total 9.9 mg/dL (8.5-10.1); Chloride 97 mmol/L (98-107); Creatinine, Serum 0.62 mg/dL (0.55-1.02); EST Glomerular Filtration Rate 104 mL/min (>60); Est Glom Filt Rate - Afr Amer 126 mL/min (>60); Glucose 108 mg/dL (74-106); Potassium 3.3 mmol/L (3.5-5.1); Sodium Level 142 mmol/L (136-145)
[2022-09-13 09:40] LABS: Vitamin D,25 Hydroxy 59.7 ng/mL
== END ==
LOC: OLS.SW 05:00
PROVIDERS: PCP Internal Medicine; Visit Provider Internal Medicine
DX: E55.9 Vitamin D deficiency, unspecified (principal); I50.20 Unspecified systolic (congestive) heart failure
CPT/HCPCS: 36415; 80048; 82306; 83880

== ENCOUNTER → 2022-09-19 06:00 | Outpatient (REF) | payer MEDICARE, MEDICAID, SELFPAY ==
[2022-09-19 08:57] LABS: Hematocrit 38.2 % (37-47); Hemoglobin 10.9 g/dL (12.0-15.0); Mean Corp Hgb Conc 28.5 g/dL (32-36); Mean Corpuscular Hgb 27.1 pg (27.0-32.0); Mean Platelet Vol. 11.6 fl (6.2-12.0); Platelet Count 203 K/mm3 (150-450); RBC Distribution Width CV 13.8 % (11.6-14.6); RBC Distribution Width SD 48.4 fl (35.1-43.9); Red Blood Count 4.02 M/mm3 (4.2-5.4); White Blood Count 8.9 K/mm3 (4.4-11.0)
[2022-09-19 09:14] LABS: Anion Gap 2 (5-15); BUN 23 mg/dL (7-18); BUN/Creat Ratio 46.1 RATIO (10-20); Chloride 97 mmol/L (98-107); EST Glomerular Filtration Rate 134 mL/min (>60); Est Glom Filt Rate - Afr Amer 162 mL/min (>60); Glucose 128 mg/dL (74-106); Potassium 4.6 mmol/L (3.5-5.1); Sodium Level 139 mmol/L (136-145)
== END ==
LOC: OLS.SW 06:00
PROVIDERS: PCP Internal Medicine; Visit Provider Internal Medicine
DX: N17.9 Acute kidney failure, unspecified (principal); I10 Essential (primary) hypertension
CPT/HCPCS: 36415; 80048; 85027

== ENCOUNTER → 2022-09-25 04:00 | Outpatient (REF) | payer MEDICARE, MEDICAID, SELFPAY ==
[2022-09-25 09:17] LABS: Hematocrit 36.3 % (37-47); Hemoglobin 10.7 g/dL (12.0-15.0); Mean Corp Hgb Conc 29.5 g/dL (32-36); Mean Corpuscular Hgb 26.9 pg (27.0-32.0); Mean Corpuscular Volume 91.2 fL (81-99); Mean Platelet Vol. 11.2 fl (6.2-12.0); Platelet Count 244 K/mm3 (150-450); RBC Distribution Width CV 13.6 % (11.6-14.6); RBC Distribution Width SD 45.5 fl (35.1-43.9); Red Blood Count 3.98 M/mm3 (4.2-5.4); White Blood Count 10.7 K/mm3 (4.4-11.0)
[2022-09-25 09:21] LABS: Anion Gap 5 (5-15); BUN 21 mg/dL (7-18); Calcium,Total 9.8 mg/dL (8.5-10.1); Chloride 92 mmol/L (98-107); Creatinine, Serum 0.66 mg/dL (0.55-1.02); EST Glomerular Filtration Rate 97 mL/min (>60); Est Glom Filt Rate - Afr Amer 118 mL/min (>60); Glucose 103 mg/dL (74-106); Potassium 3.6 mmol/L (3.5-5.1); Sodium Level 138 mmol/L (136-145)
== END ==
LOC: OLS.SW 04:00
PROVIDERS: PCP Internal Medicine; Referring Provider Internal Medicine; Visit Provider Internal Medicine
DX: N17.9 Acute kidney failure, unspecified (principal)
CPT/HCPCS: 36415; 80048; 85027

== ENCOUNTER → 2022-10-27 07:15 | Outpatient (REF) | payer MEDICARE, MEDICAID, SELFPAY ==
[2022-10-27 08:45] LABS: Vitamin D,25 Hydroxy 63.5 ng/mL
== END ==
LOC: OLS.SW 07:15
PROVIDERS: PCP Internal Medicine; Visit Provider Internal Medicine
DX: E55.9 Vitamin D deficiency, unspecified (principal)
CPT/HCPCS: 36415; 82306

== ENCOUNTER 2022-12-02 00:37 | Emergency (ER) | payer MEDICARE, MEDICAID, SELFPAY ==
[2022-12-02 00:39] VITALS: BP 158/135; PULSE 100; RESP 18; TEMP 36.9; O2SAT 94; BMI 60.0
[2022-12-02 00:58] VITALS: BP 158/135; PULSE 97; RESP 19; TEMP 36.8; O2SAT 94
--- NOTE | 2022-12-02 01:00 | ED.VIS.DYS ---
HPI History of Present Illness Chief Complaint: Cold Sx Narrative Narrative: Patient will was talking to her roommate at the [facility], she became short of breath, they noticed her pulse ox was going down, they changed her oxygen source and she improved. She is now back to normal. She was brought here by EMS. She has no complaints. [facility] Medical History (Updated 12/02/22 @ 01:[address] Max Barber MD) Acute kidney failure with tubular necrosis Anemia Anxiety Chronic anemia Chronic pain Chronic respiratory failure with hypoxia COPD (chronic obstructive pulmonary disease) Depression Fibromyalgia GERD (gastroesophageal reflux disease) HFrEF (heart failure with reduced ejection fraction) HTN (hypertension) Hyperlipidemia Morbid obesity Obesity hypoventilation syndrome MARISOL (obstructive sleep apnea) Peptic ulcer disease Personal history of transient ischemic attack (TIA), and cerebral infarction without residual deficits Seasonal allergies TIA (transient ischemic attack) UTI (urinary tract infection) Vitamin D deficiency Home Medications acetaminophen 325 mg tablet 650 mg PO Q4H PRN PRN Pain 05/03/22 [History Last Taken 05/28/22] amitriptyline 25 mg tablet 25 mg PO QODAY DEPRESSION 05/03/22 [History Last Taken 05/26/22] atorvastatin 20 mg tablet 20 mg PO QHS CHOLESTEROL 05/03/22 [History Last Taken 05/27/22] cyclobenzaprine 10 mg tablet 10 mg PO TID Check with primary doctor 05/03/22 [History Last Taken 05/28/22] ergocalciferol (vitamin D2) 1,250 mcg (50,000 unit) capsule (Vitamin D2) 1,250 mcg PO SA SUPPLEMENT 05/03/22 [History Last Taken 05/27/22] famotidine 20 mg tablet 20 mg PO BID GERD 05/03/22 [History Last Taken 05/28/22] fluticasone propionate 50 mcg/actuation nasal spray,suspension 2 spray intranasal BID NASAL CONGESTION 05/03/22 [History Last Taken 05/28/22] lidocaine 4 % topical patch 1 patch topical DAILY PRN Pain 05/03/22 [History Last Taken 05/28/22] losartan 50 mg tablet 50 mg PO DAILY BLOOD PRESSURE 05/03/22 [History Last Taken 05/28/22] montelukast 10 mg tablet 10 mg PO DAILY ALLERGIES 05/03/22 [History Last Taken 05/28/22] omeprazole 20 mg tablet,delayed release 20 mg PO BID GERD 05/03/22 [History Last Taken 05/28/22] roflumilast 500 mcg tablet (Daliresp) 500 mcg PO DAILY ASTHMA 05/03/22 [History Last Taken 05/28/22] sertraline 100 mg tablet (Zoloft) 100 mg PO QHS DEPRESSION 05/03/22 [History Last Taken 05/27/22] tiotropium bromide 2.5 mcg/actuation mist for inhalation (Spiriva Respimat) 2 puff inhalation QHS ASTHMA 05/03/22 [History Last Taken 05/27/22] dicyclomine 10 mg capsule 10 mg PO 4X/DAY #1 cap 05/05/22 [Rx Last Taken 05/28/22] nystatin 100,000 unit/gram topical powder (Nyamyc) 1 applic topical TID affected areas 05/14/22 [History Last Taken 05/28/22] gabapentin 300 mg capsule 300 mg PO BID NEUROPATHY 05/28/22 [History Last Taken 05/28/22] furosemide 40 mg tablet 40 mg PO DAILY #30 tabs 05/30/22 [Rx Last Taken Unknown] albuterol sulfate 90 mcg/actuation aerosol inhaler 2 puff inhalation Q2H PRN SOB 09/08/22 [History Last Taken Unknown] prednisone 20 mg tablet 10 mg PO DAILY Check with primary doctor 09/08/22 [History Last Taken Unknown] cefdinir 300 mg capsule 300 mg PO Q12 3 days #0 caps 09/12/22 [Rx Last Taken Unknown] Allergy/AdvReac Type Severity Reaction Status Date / Time aspirin Allergy Other Verified 09/08/22 00:15 black pepper [pepper] Allergy Other Verified 09/08/22 00:15 coconut Allergy Other Verified 09/08/22 00:15 codeine Allergy Other Verified 09/08/22 00:15 ibuprofen Allergy Other Verified 09/08/22 00:15 Influenza Virus Vaccines Allergy Other Verified 09/08/22 00:15 Penicillins Allergy Anaphylaxis Verified 09/08/22 00:15 rice Allergy Other Verified 09/08/22 00:15 tetanus and diphtheria Allergy Other Verified 09/08/22 00:15 toxoids Tetanus Vaccines and Toxoid Allergy Other Verified 09/08/22 00:15 Family History Other CAD (coronary artery disease) COPD (chronic obstructive pulmonary disease) Hypertension Social History housing: assisted Smoking Status: Former smoker alcohol intake: never substance use type: does not use ROS ROS ED ROS Narrative Past medical history: Reviewed Medications: Reviewed Social history: Noncontributory Review of systems: All systems negative except as indicated General: No fever ENT: No upper airway congestion, normal voice Neck: No neck pain Cardiovascular: No chest pain Respiratory: Transient dyspnea as in HPI Gastrointestinal: No abdominal pain, nausea vomiting or diarrhea Genitourinary: No dysuria Musculoskeletal: Denies myalgias no difficulty with ambulation Skin: No rash Neurological: No memory loss, confusion or any focal weakness EXAM Physical Exam Narrative Exam Narrative: Physical exam General: Patient is comfortable, she is laughing and joking with the EKG tach as I walk into the room. Head: Normocephalic, Atraumatic Eyes: Conjunctiva not pale ENT: Moist mucous membranes Neck: Supple, Nontender, No lymphadenopathy Cardiovascular: Regular rate, Regular rhythm Respiratory: No distress, mostly clear breath sounds, somewhat difficult auscultation secondary to body habitus. Abdomen: Soft, Nontender, Nondistended Back: Nontender, Normal Inspection. Negative for: CVA tenderness Extremities: Nontender, No edema Skin: Normal color, No rash Neurological: Alert, Normal Strength, Normal Sensation Const Vital Signs: 12/02/22 00:39 12/02/22 00:58 12/02/22 00:59 Temperature 98.5 F 98.3 F Temperature Source Oral Temporal Pulse Rate 100 97 Respiratory Rate 18 19 H Respiratory Effort Normal Respiratory Pattern Normal Blood Pressure 158/135 H 158/135 H Blood Pressure Mean 142 142 Pulse Ox 94 94 Oxygen Delivery Method Nasal Cannula Nasal Cannula Oxygen Flow Rate (L/min) 4 4 MDM MDM MDM Narrative Medical decision making narrative: Chest x-ray read by me is nondiagnostic, she has a history of having nondiagnostic chest x-ray she cannot sit up straight. ED course: Patient is observed in the ED. She has a nondiagnostic chest x-ray however based on the history it is likely that she had an issue with her oxygen supply since she has been asymptomatic and her symptoms improved after her oxygen was changed at the [facility]. She appears well I will discharge her in stable condition. She does not meet criteria for admission. Lab Data Labs: Laboratory Results - last 24 hr 12/02/22 01:20 WBC 13.5 H RBC 3.70 L Hgb 10.1 L Hct 35.1 L MCV 94.9 MCH 27.3 MCHC 28.8 L RDW Std Deviation 50.3 H RDW Coeff of David 14.7 H Plt Count 272 MPV 11.3 Immature Gran % (Auto) 3.700 H Neut % (Auto) 65.5 Lymph % (Auto) 22.4 [place] % (Auto) 6.8 Eos % (Auto) 1.0 Baso % (Auto) 0.6 Absolute Neuts (auto) 8.8 H Absolute Lymphs (auto) 3.01 Nucleated RBC % 0.1 Discharge Plan Triage Chief Complaint: Cold Sx ED Provider: Max Barber Dx/Rx/DC Orders Clinical Impression: Acute dyspnea, Dependence on continuous supplemental oxygen Instructions: ED Dyspnea Prescriptions: No Action losartan 50 mg Tablet 50 mg PO DAILY cyclobenzaprine 10 mg Tablet 10 mg PO TID acetaminophen 325 mg Tablet 650 mg PO Q4H PRN PRN (Reason: Pain) atorvastatin 20 mg Tablet 20 mg PO QHS lidocaine 4 % Adhesive Patch,Medicated 1 patch TOPICAL DAILY PRN (Reason: Pain) Rx Instructions: APPLY TO BOTH SHOULDERS sertraline [Zoloft] 100 mg Tablet 100 mg PO QHS famotidine 20 mg Tablet 20 mg PO BID amitriptyline 25 mg Tablet 25 mg PO QODAY montelukast 10 mg Tablet 10 mg PO DAILY ergocalciferol (vitamin D2) [Vitamin D2] 1,250 mcg (50,000 unit) Capsule 1,250 mcg PO SA fluticasone propionate 50 mcg/actuation [place],Suspension 2 spray INTRANASAL BID omeprazole 20 mg Tablet,Delayed Release (Dr/Ec) 20 mg PO BID roflumilast [Daliresp] 500 mcg Tablet 500 mcg PO DAILY Spiriva Respimat 2.5 mcg/actuation Mist 2 puff INHALATION QHS dicyclomine 10 mg Capsule 10 mg PO 4X/DAY Qty: 1 0RF nystatin [Nyamyc] 100,000 unit/gram powder 1 applic topical TID Protocol: *Topical Application Instructions APPLICATION INSTRUCTIONS: affected areas gabapentin 300 mg Capsule 300 mg PO BID furosemide 40 mg tablet 40 mg PO DAILY Qty: 30 0RF prednisone 20 mg tablet 10 mg PO DAILY albuterol sulfate 90 mcg/actuation Hfa Aerosol Inhaler 2 puff INHALATION Q2H PRN (Reason: SOB) cefdinir 300 mg Capsule 300 mg PO Q12 3 Days Qty: 0 0RF Primary Care Provider: Sepideh Patterson Referrals: Sepideh Patterson MD [Primary Care Provider] - 3-5 Days Disposition Disposition: Home, Self Care
--- NOTE | 2022-12-02 01:08 | RAD_ITS ---
INDICATION: sob, PT WOULD NOT MOVE, BEST IMAGES POSSIBLE DUE TO PT HABITUS EXAMINATION/TECHNIQUE: X-RAY - XR Chest 1 View COMPARISON: Chest radiograph 09/08/2022. Findings: 2 views of the chest of the chest. LUNG PARENCHYMA: Opacities overlying the left upper lung and right lower lung. PLEURA: No pleural effusion. No pneumothorax. HEART/GREAT VESSELS: Cardiomediastinal silhouette is unremarkable. BONES: Osseous structures are unremarkable for age. RAD/Chest 1 View (Portable) IMPRESSION: Opacities overlying the left upper lung and right lower lung, which may represent overlying soft tissue versus airspace disease. Maybe better evaluated with dedicated chest CT. Electronically Signed: Remington Zurita MD at 2:03 EDT ,
--- NOTE | 2022-12-02 01:13 | EKG12_ITS ---
Test Reason : Dysrhythmia Blood Pressure : / mmHG Vent. Rate : 096 BPM Atrial Rate : 096 BPM P-R Int : 168 ms QRS Dur : 130 ms QT Int : 354 ms P-R-T Axes : 060 080 054 degrees QTc Int : 447 ms Normal sinus rhythm Right bundle branch block Lateral infarct (cited on or before 03-MAY-2022) Cannot rule out Inferior infarct , age undetermined Abnormal ECG Confirmed by JIMENA WILSON ([id number]), tape editor GREG GARDNER ([id number]) on 12/21/2022 10:32:49 AM Referred By: Confirmed By:JIMENA WILSON
[2022-12-02 01:26] LABS: Absolute Lymphocyte Count 3.01 X10^3/uL (0.83-4.51); Absolute Neutrophil Count 8.8 X10^3/uL (2.0-7.7); Basophil# 0.08 X10^3/uL; Basophil% 0.6 % (0-1); Eosinophil# 0.14 X10^3/uL; Hematocrit 35.1 % (37-47); Hemoglobin 10.1 g/dL (12.0-15.0); Lymphocyte # 3.01 X10^3/ul (0.83-4.51); Lymphocyte % 22.4 % (19-41); Mean Corp Hgb Conc 28.8 g/dL (32-36); Mean Corpuscular Hgb 27.3 pg (27.0-32.0); Mean Corpuscular Volume 94.9 fL (81-99); Mean Platelet Vol. 11.3 fl (6.2-12.0); Monocyte# 0.92 X10^3/uL; Monocyte% 6.8 % (0-10); NRBC Flagged by Analyzer 0.1 % (0-5); Neutrophil # 8.81 X10^3/uL (2.7-7.7); Neutrophil % 65.5 % (47-70); Platelet Count 272 K/mm3 (150-450); RBC Distribution Width CV 14.7 % (11.6-14.6); RBC Distribution Width SD 50.3 fl (35.1-43.9); White Blood Count 13.5 K/mm3 (4.4-11.0)
[2022-12-02 01:42] VITALS: PULSE 95; RESP 20; O2SAT 94
[2022-12-02 01:42] LABS: ALB/GLOB Ratio 0.7 RATIO (0.9-2.4); AST(SGOT) 9 U/L (15-37); Alanine Aminotransfer ALT/SGPT 16 U/L (13-56); Albumin, Serum 2.7 g/dL (3.2-5.0); Alkaline Phosphatase 90 U/L (45-117); Anion Gap 1 (5-15); BUN 23 mg/dL (7-18); BUN/Creat Ratio 26.1 RATIO (10-20); Calcium,Total 9.7 mg/dL (8.5-10.1); Chloride 97 mmol/L (98-107); Creatinine, Serum 0.88 mg/dL (0.55-1.02); EST Glomerular Filtration Rate 69 mL/min (>60); Est Glom Filt Rate - Afr Amer 84 mL/min (>60); Estimated Creatinine Clearance 65.28 ml/min; Globulin 3.9 g/dL (2.2-4.2); Glucose 155 mg/dL (74-106); Potassium 4.4 mmol/L (3.5-5.1); Protein, Total 6.6 g/dL (6.4-8.2); Sodium Level 138 mmol/L (136-145)
== END 2022-12-02 03:11 | disposition home or self-care (01) ==
PROVIDERS: Emergency Provider Emergency Medicine; PCP Internal Medicine; Visit Provider Emergency Medicine
DX: R06.00 Dyspnea, unspecified (principal); J44.9 Chronic obstructive pulmonary disease, unspecified; I11.0 Hypertensive heart disease with heart failure; I50.22 Chronic systolic (congestive) heart failure; Z87.891 Personal history of nicotine dependence; E78.5 Hyperlipidemia, unspecified; Z99.81 Dependence on supplemental oxygen; Z86.73 Personal history of transient ischemic attack (TIA), and cerebral infarction without residual deficits; F32.A Depression, unspecified; Z79.899 Other long term (current) drug therapy; K21.9 Gastro-esophageal reflux disease without esophagitis
CPT/HCPCS: 71045; 80053; 85025; 93005; 99285; A4216

== ENCOUNTER → 2022-12-06 | Outpatient (REF) | payer MEDICARE, MEDICAID, SELFPAY ==
[2022-12-06 08:47] LABS: Absolute Lymphocyte Count 1.98 X10^3/uL (0.83-4.51); Absolute Neutrophil Count 5.7 X10^3/uL (2.0-7.7); Basophil# 0.07 X10^3/uL; Basophil% 0.8 % (0-1); Eosinophil# 0.14 X10^3/uL; Eosinophils% 1.6 % (0-5); Hematocrit 36.8 % (37-47); Hemoglobin 10.2 g/dL (12.0-15.0); Lymphocyte # 1.98 X10^3/ul (0.83-4.51); Lymphocyte % 22.2 % (19-41); Mean Corp Hgb Conc 27.7 g/dL (32-36); Mean Corpuscular Hgb 26.6 pg (27.0-32.0); Mean Corpuscular Volume 96.1 fL (81-99); Monocyte# 0.81 X10^3/uL; Monocyte% 9.1 % (0-10); NRBC Flagged by Analyzer 0 % (0-5); Neutrophil # 5.66 X10^3/uL (2.7-7.7); Neutrophil % 63.5 % (47-70); Platelet Count 266 K/mm3 (150-450); RBC Distribution Width CV 14.7 % (11.6-14.6); RBC Distribution Width SD 50.8 fl (35.1-43.9); Red Blood Count 3.83 M/mm3 (4.2-5.4); White Blood Count 8.9 K/mm3 (4.4-11.0)
[2022-12-06 09:01] LABS: Anion Gap 2 (5-15); BUN 29 mg/dL (7-18); BUN/Creat Ratio 44.2 RATIO (10-20); Calcium,Total 10.6 mg/dL (8.5-10.1); Chloride 96 mmol/L (98-107); Creatinine, Serum 0.66 mg/dL (0.55-1.02); EST Glomerular Filtration Rate 97 mL/min (>60); Est Glom Filt Rate - Afr Amer 118 mL/min (>60); Glucose 104 mg/dL (74-106); Potassium 3.7 mmol/L (3.5-5.1); Sodium Level 141 mmol/L (136-145)
== END ==
LOC: OLS.SW 05:00
PROVIDERS: PCP Internal Medicine; Visit Provider Internal Medicine
DX: R41.82 Altered mental status, unspecified (principal); Z79.899 Other long term (current) drug therapy
CPT/HCPCS: 36415; 80048; 85025; 86140

== ENCOUNTER 2023-01-17 22:02 | Emergency (ER) | payer MEDICARE, MEDICAID, SELFPAY ==
[2023-01-17 22:03] VITALS: BP 226/205; PULSE 99; RESP 26; TEMP 36.4; O2SAT 90; BMI 59.1
--- NOTE | 2023-01-17 22:17 | EX.ED.DYSGE1 ---
HPI History of Present Illness Chief Complaint: Hypertension Informant: patient and EMS Narrative Narrative: Patient resides in a shelter. She has been asymptomatic without any illness or injury lately including today. She states she and her roommate were having a good time, and they were dancing and joking around with each other when a nurse came in and checked her blood pressure and it was high at 252/150, for that reason she called EMS and had her brought to the emergency room. Pt was asymptomatic. According to nurse report from the shelter, she had high blood pressure and altered mental status which the patient vehemently denies. According to EMS, she was alert and oriented x4 with a blood pressure of 108/82. Patient states she really needs to urinate right now but otherwise has no symptoms. Furthermore she states that she remembers vomiting 2 hours ago, and then states I think I know why; I had some Brandon-Aid with [employer] comfort and then some tea with [employer] comfort. PFSH PFSH Medical History Acute kidney failure with tubular necrosis Anemia Anxiety Chronic anemia Chronic pain Chronic respiratory failure with hypoxia COPD (chronic obstructive pulmonary disease) Depression Fibromyalgia GERD (gastroesophageal reflux disease) HFrEF (heart failure with reduced ejection fraction) HTN (hypertension) Hyperlipidemia Morbid obesity Obesity hypoventilation syndrome MARISOL (obstructive sleep apnea) Peptic ulcer disease Personal history of transient ischemic attack (TIA), and cerebral infarction without residual deficits Seasonal allergies TIA (transient ischemic attack) UTI (urinary tract infection) Vitamin D deficiency Home Medications acetaminophen 325 mg tablet 650 mg PO Q4H PRN PRN Pain 05/03/22 [History Last Taken 05/28/22] amitriptyline 25 mg tablet 25 mg PO QODAY DEPRESSION 05/03/22 [History Last Taken 05/26/22] atorvastatin 20 mg tablet 20 mg PO QHS CHOLESTEROL 05/03/22 [History Last Taken 05/27/22] cyclobenzaprine 10 mg tablet 10 mg PO TID Check with primary doctor 05/03/22 [History Last Taken 05/28/22] ergocalciferol (vitamin D2) 1,250 mcg (50,000 unit) capsule (Vitamin D2) 1,250 mcg PO SA SUPPLEMENT 05/03/22 [History Last Taken 05/27/22] famotidine 20 mg tablet 20 mg PO BID GERD 05/03/22 [History Last Taken 05/28/22] fluticasone propionate 50 mcg/actuation nasal spray,suspension 2 spray intranasal BID NASAL CONGESTION 05/03/22 [History Last Taken 05/28/22] lidocaine 4 % topical patch 1 patch topical DAILY PRN Pain 05/03/22 [History Last Taken 05/28/22] losartan 50 mg tablet 50 mg PO DAILY BLOOD PRESSURE 05/03/22 [History Last Taken 05/28/22] montelukast 10 mg tablet 10 mg PO DAILY ALLERGIES 05/03/22 [History Last Taken 05/28/22] omeprazole 20 mg tablet,delayed release 20 mg PO BID GERD 05/03/22 [History Last Taken 05/28/22] roflumilast 500 mcg tablet (Daliresp) 500 mcg PO DAILY ASTHMA 05/03/22 [History Last Taken 05/28/22] sertraline 100 mg tablet (Zoloft) 100 mg PO QHS DEPRESSION 05/03/22 [History Last Taken 05/27/22] tiotropium bromide 2.5 mcg/actuation mist for inhalation (Spiriva Respimat) 2 puff inhalation QHS ASTHMA 05/03/22 [History Last Taken 05/27/22] dicyclomine 10 mg capsule 10 mg PO 4X/DAY #1 cap 05/05/22 [Rx Last Taken 05/28/22] nystatin 100,000 unit/gram topical powder (Nyamyc) 1 applic topical TID affected areas 05/14/22 [History Last Taken 05/28/22] gabapentin 300 mg capsule 300 mg PO BID NEUROPATHY 05/28/22 [History Last Taken 05/28/22] furosemide 40 mg tablet 40 mg PO DAILY #30 tabs 05/30/22 [Rx Last Taken Unknown] albuterol sulfate 90 mcg/actuation aerosol inhaler 2 puff inhalation Q2H PRN SOB 09/08/22 [History Last Taken Unknown] prednisone 20 mg tablet 10 mg PO DAILY Check with primary doctor 09/08/22 [History Last Taken Unknown] cefdinir 300 mg capsule 300 mg PO Q12 3 days #0 caps 09/12/22 [Rx Last Taken Unknown] Allergy/AdvReac Type Severity Reaction Status Date / Time aspirin Allergy Other Verified 09/08/22 00:15 black pepper [pepper] Allergy Other Verified 09/08/22 00:15 coconut Allergy Other Verified 09/08/22 00:15 codeine Allergy Other Verified 09/08/22 00:15 ibuprofen Allergy Other Verified 09/08/22 00:15 Influenza Virus Vaccines Allergy Other Verified 09/08/22 00:15 Penicillins Allergy Anaphylaxis Verified 09/08/22 00:15 rice Allergy Other Verified 09/08/22 00:15 tetanus and diphtheria Allergy Other Verified 09/08/22 00:15 toxoids Tetanus Vaccines and Toxoid Allergy Other Verified 09/08/22 00:15 Family History Other CAD (coronary artery disease) COPD (chronic obstructive pulmonary disease) Hypertension Social History housing: shelter Smoking Status: Former smoker alcohol intake: never substance use type: does not use ROS ROS ED Constitutional Constitutional ED: Denies chills or fever(s) Eyes Eyes: Denies change in vision or diplopia ENT ENT ED: Denies rhinorrhea or sore throat Cardiovascular Cardiovascular: Denies chest pain or palpitations Respiratory/Chest Respiratory/Chest: Denies cough or dyspnea Gastrointestinal Gastrointestinal: Denies abdominal pain, diarrhea, nausea or vomiting Genitourinary Genitourinary ED: Denies dysuria or hematuria Musculoskeletal Musculoskeletal: Denies back pain or neck pain Integumentary Denies abscess or rash Neurologic Neurologic: Denies headache(s), paresthesias or weakness Psychiatric Psychiatric: Denies anxiety or suicidal thoughts EXAM Physical Exam Const Vital Signs: 01/17/23 22:03 Temperature 97.5 F L Temperature Source Temporal Pulse Rate 99 Respiratory Rate 26 H Blood Pressure 226/205 H Blood Pressure Mean 212 Pulse Ox 90 Oxygen Delivery Method Nasal Cannula Positive well nourished, well developed and obese General Appearance ED: well developed and NAD Nutritional Appearance: obese HEENT Reports moist mucous membranes normocephalic and atraumatic Eyes PERRL and EOMs intact bilaterally Neck full ROM and supple Resp normal respiratory effort and clear to auscultation bilaterally Cardio regular rate, regular rhythm and no murmurs GI non-tender and non-distended Auscultation: normoactive bowel sounds Palpation: soft Back/Spine no CVA tenderness General Back: other FROM Extremity normal to inspection General Extremety ED: Negative for edema, pulses abnormal or tenderness General Extremity: Negative for edema or pulses abnormal Neuro oriented x3, CN's II-XII intact bilaterally and no sensory deficits noted Sensorium / Orientation: awake and alert Motor Exam: strength 5/5 throughout Skin no rashes or lesions noted and no wounds MDM MDM MDM Narrative Medical decision making narrative: Patient is morbidly obese. We were doing an automatic blood pressure cuff on her wrist and it is coming up 226/205. The patient is asymptomatic. I had nursing do a manual it is 166/92. Patient states she had a little alcohol earlier, she states this is the first she had remembered or told anybody. I do not think she needs any type of emergent work-up right now her exam is very benign, and she will be sent back to the shelter and she is in agreement with that plan. Discharge Plan Triage Chief Complaint: Hypertension ED Provider: Reilly Serrano Dx/Rx/DC Orders Clinical Impression: Encounter for medical screening examination Instructions: ED Hypertension, Established Prescriptions: No Action losartan 50 mg Tablet 50 mg PO DAILY cyclobenzaprine 10 mg Tablet 10 mg PO TID acetaminophen 325 mg Tablet 650 mg PO Q4H PRN PRN (Reason: Pain) atorvastatin 20 mg Tablet 20 mg PO QHS lidocaine 4 % Adhesive Patch,Medicated 1 patch TOPICAL DAILY PRN (Reason: Pain) Rx Instructions: APPLY TO BOTH SHOULDERS sertraline [Zoloft] 100 mg Tablet 100 mg PO QHS famotidine 20 mg Tablet 20 mg PO BID amitriptyline 25 mg Tablet 25 mg PO QODAY montelukast 10 mg Tablet 10 mg PO DAILY ergocalciferol (vitamin D2) [Vitamin D2] 1,250 mcg (50,000 unit) Capsule 1,250 mcg PO SA fluticasone propionate 50 mcg/actuation [place],Suspension 2 spray INTRANASAL BID omeprazole 20 mg Tablet,Delayed Release (Dr/Ec) 20 mg PO BID roflumilast [Daliresp] 500 mcg Tablet 500 mcg PO DAILY Spiriva Respimat 2.5 mcg/actuation Mist 2 puff INHALATION QHS dicyclomine 10 mg Capsule 10 mg PO 4X/DAY Qty: 1 0RF nystatin [Nyamyc] 100,000 unit/gram powder 1 applic topical TID Protocol: *Topical Application Instructions APPLICATION INSTRUCTIONS: affected areas gabapentin 300 mg Capsule 300 mg PO BID furosemide 40 mg tablet 40 mg PO DAILY Qty: 30 0RF prednisone 20 mg tablet 10 mg PO DAILY albuterol sulfate 90 mcg/actuation Hfa Aerosol Inhaler 2 puff INHALATION Q2H PRN (Reason: SOB) cefdinir 300 mg Capsule 300 mg PO Q12 3 Days Qty: 0 0RF Primary Care Provider: Sepideh Patterson Referrals: Sepideh Patterson MD [Primary Care Provider] - 1-2 Days if not improving Activity Restrictions/Additional Instructions: Our automatic blood pressure cuff was reading 226/205 while our manual is 166/92. Likely inaccurate reading prior to being sent to the emergency department. Continue to monitor with manual if able. Disposition Disposition: [facility]
[2023-01-17 22:32] VITALS: BP 166/92
[2023-01-17 23:07] VITALS: PULSE 90; RESP 26
[2023-01-18 00:01] VITALS: PULSE 93; RESP 21; O2SAT 93
== END 2023-01-18 00:48 | disposition skilled nursing facility (03) ==
PROVIDERS: Emergency Provider Emergency Medicine; PCP Internal Medicine; Visit Provider Emergency Medicine
DX: I11.0 Hypertensive heart disease with heart failure (principal); J44.9 Chronic obstructive pulmonary disease, unspecified; I50.22 Chronic systolic (congestive) heart failure; E78.5 Hyperlipidemia, unspecified; Z86.73 Personal history of transient ischemic attack (TIA), and cerebral infarction without residual deficits; F32.A Depression, unspecified; Z79.899 Other long term (current) drug therapy; K21.9 Gastro-esophageal reflux disease without esophagitis
CPT/HCPCS: 99284

== ENCOUNTER → 2023-01-22 | Outpatient (REF) | payer MEDICARE, MEDICAID, SELFPAY ==
[2023-01-22 08:16] LABS: Absolute Lymphocyte Count 2.66 X10^3/uL (0.83-4.51); Absolute Neutrophil Count 6.7 X10^3/uL (2.0-7.7); Basophil# 0.04 X10^3/uL; Basophil% 0.4 % (0-1); Eosinophil# 0.13 X10^3/uL; Eosinophils% 1.3 % (0-5); Lymphocyte # 2.66 X10^3/ul (0.83-4.51); Lymphocyte % 25.6 % (19-41); Mean Corp Hgb Conc 28.1 g/dL (32-36); Mean Corpuscular Hgb 27.6 pg (27.0-32.0); Mean Corpuscular Volume 98.2 fL (81-99); Mean Platelet Vol. 11.2 fl (6.2-12.0); Monocyte# 0.71 X10^3/uL; Monocyte% 6.8 % (0-10); NRBC Flagged by Analyzer 0 % (0-5); Neutrophil # 6.74 X10^3/uL (2.7-7.7); Neutrophil % 64.8 % (47-70); Platelet Count 214 K/mm3 (150-450); RBC Distribution Width CV 14.5 % (11.6-14.6); Red Blood Count 3.26 M/mm3 (4.2-5.4); White Blood Count 10.4 K/mm3 (4.4-11.0)
[2023-01-22 08:33] LABS: Anion Gap 4 (5-15); BUN 30 mg/dL (7-18); BUN/Creat Ratio 31.8 RATIO (10-20); Calcium,Total 10.2 mg/dL (8.5-10.1); Chloride 92 mmol/L (98-107); Creatinine, Serum 0.94 mg/dL (0.55-1.02); EST Glomerular Filtration Rate 64 mL/min (>60); Est Glom Filt Rate - Afr Amer 78 mL/min (>60); Glucose 85 mg/dL (74-106); Potassium 4.3 mmol/L (3.5-5.1); Sodium Level 138 mmol/L (136-145)
== END ==
LOC: OLS.SW 06:20
PROVIDERS: PCP Internal Medicine; Visit Provider Internal Medicine
DX: J44.9 Chronic obstructive pulmonary disease, unspecified (principal); I10 Essential (primary) hypertension
CPT/HCPCS: 36415; 80048; 85025

== ENCOUNTER → 2023-03-05 | Outpatient (REF) | payer MEDICARE, MEDICAID, SELFPAY ==
[2023-03-05 08:26] LABS: Hematocrit 32.4 % (37-47); Hemoglobin 9.4 g/dL (12.0-15.0); Mean Corpuscular Hgb 27.9 pg (27.0-32.0); Mean Corpuscular Volume 96.1 fL (81-99); Mean Platelet Vol. 11.6 fl (6.2-12.0); Platelet Count 210 K/mm3 (150-450); RBC Distribution Width CV 14.6 % (11.6-14.6); RBC Distribution Width SD 50.8 fl (35.1-43.9); Red Blood Count 3.37 M/mm3 (4.2-5.4); White Blood Count 10.6 K/mm3 (4.4-11.0)
[2023-03-05 09:16] LABS: ALB/GLOB Ratio 0.6 RATIO (0.9-2.4); AST(SGOT) 11 U/L (15-37); Alanine Aminotransfer ALT/SGPT 11 U/L (13-56); Albumin, Serum 2.4 g/dL (3.2-5.0); Alkaline Phosphatase 75 U/L (45-117); Anion Gap 4 (5-15); BUN 23 mg/dL (7-18); BUN/Creat Ratio 29.2 RATIO (10-20); Calcium,Total 9.6 mg/dL (8.5-10.1); Chloride 96 mmol/L (98-107); Creatinine, Serum 0.79 mg/dL (0.55-1.02); EST Glomerular Filtration Rate 79 mL/min (>60); Est Glom Filt Rate - Afr Amer 95 mL/min (>60); Globulin 3.9 g/dL (2.2-4.2); Glucose 118 mg/dL (74-106); Potassium 4.3 mmol/L (3.5-5.1); Protein, Total 6.3 g/dL (6.4-8.2); Sodium Level 137 mmol/L (136-145)
== END ==
LOC: OLS.SW 05:00
PROVIDERS: PCP Internal Medicine; Visit Provider Internal Medicine
DX: E03.9 Hypothyroidism, unspecified (principal)
CPT/HCPCS: 36415; 80053; 83735; 85027

== ENCOUNTER → 2023-03-08 | Outpatient (REF) | payer MEDICARE, MEDICAID, SELFPAY ==
[2023-03-08 08:25] LABS: Absolute Lymphocyte Count 2.81 X10^3/uL (0.83-4.51); Absolute Neutrophil Count 6.4 X10^3/uL (2.0-7.7); Basophil# 0.04 X10^3/uL; Basophil% 0.4 % (0-1); Eosinophil# 0.13 X10^3/uL; Eosinophils% 1.3 % (0-5); Hemoglobin 9.4 g/dL (12.0-15.0); Lymphocyte # 2.81 X10^3/ul (0.83-4.51); Lymphocyte % 27.3 % (19-41); Mean Corp Hgb Conc 29.4 g/dL (32-36); Mean Corpuscular Volume 95.2 fL (81-99); Mean Platelet Vol. 11.6 fl (6.2-12.0); Monocyte# 0.79 X10^3/uL; Monocyte% 7.7 % (0-10); NRBC Flagged by Analyzer 0 % (0-5); Neutrophil # 6.39 X10^3/uL (2.7-7.7); Platelet Count 231 K/mm3 (150-450); RBC Distribution Width CV 14.5 % (11.6-14.6); RBC Distribution Width SD 50.3 fl (35.1-43.9); Red Blood Count 3.36 M/mm3 (4.2-5.4); White Blood Count 10.3 K/mm3 (4.4-11.0)
[2023-03-08 08:27] LABS: Mucous, Urine 0 SEEN /hpf (<or=2+); Red Blood Cells-Urine 0 SEEN /hpf (0-5)
[2023-03-08 08:36] LABS: Anion Gap 2 (5-15); BUN 21 mg/dL (7-18); BUN/Creat Ratio 21.2 RATIO (10-20); Calcium,Total 9.9 mg/dL (8.5-10.1); Chloride 93 mmol/L (98-107); Creatinine, Serum 0.99 mg/dL (0.55-1.02); EST Glomerular Filtration Rate 60 mL/min (>60); Est Glom Filt Rate - Afr Amer 73 mL/min (>60); Glucose 160 mg/dL (74-106); Potassium 3.5 mmol/L (3.5-5.1); Sodium Level 138 mmol/L (136-145)
[2023-03-08 08:53] LABS: Color, Urine Yellow (Yellow); Glucose, Dipstick Normal (Normal); Ketone-Dipstick Negative (Negative); Leukocyte Esterase-Dipstick Negative /ul (Negative); Nitrite-Dipstick Negative (Negative); Occult Blood-Urine Negative /ul (Negative); Protein-Dipstick Negative (Negative); Urine Bilirubin Dipstick Negative (Negative); Urine Clarity Clear (Clear); Urine Urobilinogen Normal (Normal)
[2023-03-08 09:12] LABS: White Blood Cells 0-5 SEEN /hpf (0-5)
[2023-03-08 09:13] LABS: Bacteria RARE /hpf (None Seen); Squamous Epithelial Cells - UA 5-10 SEEN /hpf (5-10)
== END ==
LOC: OLS.SW 05:00
PROVIDERS: PCP Internal Medicine; Visit Provider Internal Medicine
DX: R41.82 Altered mental status, unspecified (principal)
CPT/HCPCS: 36415; 80048; 81001; 85025; 87086

== ENCOUNTER 2023-04-16 13:14 | Inpatient (IN) | payer MEDICARE, MEDICAID, SELFPAY ==
[2023-04-16] VITALS (10 sets, daily range): BP systolic 118–173; BP diastolic 87–155; PULSE 68–101; RESP 14–22; TEMP 35.5–36.9; O2SAT 90–100; BMI 50.7; BMI 55.8
--- NOTE | 2023-04-16 13:29 | EKG12_ITS ---
Test Reason : AMS Blood Pressure : / mmHG Vent. Rate : 096 BPM Atrial Rate : 096 BPM P-R Int : 190 ms QRS Dur : 140 ms QT Int : 372 ms P-R-T Axes : 063 035 037 degrees QTc Int : 469 ms Sinus rhythm with occasional Premature ventricular complexes Right bundle branch block Possible Lateral infarct ,age undetermined Abnormal ECG Confirmed by DOMINICK VILLAR, AMITA ([id number]), fashion editor CHACHA REID ([id number]) on 04/17/2023 10:02:10 AM Referred By: Confirmed By:AMITA TAN MD
--- NOTE | 2023-04-16 13:29 | CT_ITS ---
INDICATION: ALOC EXAMINATION: CT BRAIN - CT Head or Brain W/O Contrast Injection TECHNIQUE: Multiple axial images were obtained of the head without intravenous contrast. A radiation dose optimization technique was used for this scan. IV Contrast dosage and agent: None. RADIATION DOSAGE (If Supplied By Facility): CTDIvol = ( 35.36 ) mGy, DLP = ( 2307.90 ) mGycm COMPARISON: No relevant prior comparison study available FINDINGS: BRAIN PARENCHYMA: The examination is markedly limited due to severe artifacts and suboptimal image quality. No definite acute intracranial hemorrhage or subdural hematoma. No evidence of acute infarct. No intracranial mass or mass effect. The kennedy-white matter differentiation appears to be preserved. Severe artifacts and posterior fossa of the brain CSF SPACES: Appropriate for age. No hydrocephalus. Basal cisterns are patent. CALVARIUM, SKULL BASE, PARANASAL SINUSES AND MASTOID AIR CELLS: Mucosal thickening of the frontals, ethmoids, maxillary and sphenoid sinuses consistent with pansinusitis. Loss of aeration of the mastoid air cells worse on the right side. ORBITS: Both globes, extraocular muscles, optic nerves and retrobulbar fat appear grossly unremarkable. CT/Brain/Head without Contrast IMPRESSION: 1. Markedly limited examination due to significant artifacts. 2. No acute intracranial process. 3. Pansinusitis. 4. If symptoms persist, follow-up exam or MRI of the brain is recommended. Electronically Signed: Azar Martinez MD at 14:43 EST ,
--- NOTE | 2023-04-16 13:32 | EX.ED.DYSGE1 ---
HPI History of Present Illness Chief Complaint: Alt LOC Detail of Chief Complaint: Currently decreased mental status and hypoxic. Informant: patient Onset/Context/Timing Onset: Today Context: Gradual Onset Timing: Continuous Narrative Narrative: 62-year-old female history of TIA, CHF, COPD and anemia. Presents with cough, hypoxia and decreased mental status. Patient is a limited informant. 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 deficits Seasonal allergies TIA (transient ischemic attack) UTI (urinary tract infection) Vitamin D deficiency Home Medications amitriptyline 25 mg tablet 25 mg PO QODAY DEPRESSION 05/03/22 [History Last Taken 04/15/23] atorvastatin 20 mg tablet 20 mg PO QHS CHOLESTEROL 05/03/22 [History Last Taken 04/15/23] cyclobenzaprine 10 mg tablet 10 mg PO TID MUSCLE SPASMS 05/03/22 [History Last Taken 04/16/23] famotidine 20 mg tablet 20 mg PO QHS GERD 05/03/22 [History Last Taken 04/15/23] fluticasone propionate 50 mcg/actuation nasal spray,suspension 2 spray intranasal BID PRN NASAL CONGESTION 05/03/22 [History Last Taken 05/28/22] losartan 50 mg tablet 50 mg PO DAILY BLOOD PRESSURE 05/03/22 [History Last Taken 04/16/23] montelukast 10 mg tablet 10 mg PO DAILY ALLERGIES 05/03/22 [History Last Taken 04/16/23] omeprazole 20 mg tablet,delayed release 20 mg PO DAILY GERD 05/03/22 [History Last Taken 04/16/23] roflumilast 500 mcg tablet (Daliresp) 500 mcg PO DAILY ASTHMA 05/03/22 [History Last Taken 04/16/23] sertraline 100 mg tablet (Zoloft) 100 mg PO QHS DEPRESSION 05/03/22 [History Last Taken 04/16/23] dicyclomine 10 mg capsule 10 mg PO 4X/DAY IRRITABLE BOWELS #1 cap 05/05/22 [Rx Last Taken 04/16/23] furosemide 40 mg tablet 40 mg PO DAILY FLUID #30 tabs 05/30/22 [Rx Last Taken 04/16/23] albuterol sulfate 90 mcg/actuation aerosol inhaler 2 puff inhalation Q2H PRN SOB 09/08/22 [History Last Taken 04/12/23] cholecalciferol (vitamin D3) 50 mcg (2,000 unit) tablet 50 mcg PO DAILY SUPPLEMENT 04/16/23 [History Last Taken 04/16/23] loperamide 2 mg capsule (Imodium A-D) 2 mg PO Q8H PRN DIARRHEA 04/16/23 [History Last Taken 04/09/23] prednisone 10 mg tablet 10 mg PO DAILY COPD 04/16/23 [History Last Taken 04/16/23] sertraline 50 mg tablet 50 mg PO DAILY DEPRESSION 04/16/23 [History Last Taken 04/16/23] spironolactone 25 mg tablet 12.5 mg PO DAILY BLOOD PRESSURE 04/16/23 [History Last Taken 04/15/23] Allergy/AdvReac Type Severity Reaction Status Date / Time aspirin Allergy Other Verified 09/08/22 00:15 black pepper [pepper] Allergy Other Verified 09/08/22 00:15 coconut Allergy Other Verified 09/08/22 00:15 codeine Allergy Other Verified 09/08/22 00:15 ibuprofen Allergy Other Verified 09/08/22 00:15 Influenza Virus Vaccines Allergy Other Verified 09/08/22 00:15 Penicillins Allergy Anaphylaxis Verified 09/08/22 00:15 rice Allergy Other Verified 09/08/22 00:15 tetanus and diphtheria Allergy Other Verified 09/08/22 00:15 toxoids Tetanus Vaccines and Toxoid Allergy Other Verified 09/08/22 00:15 Family History Other CAD (coronary artery disease) COPD (chronic obstructive pulmonary disease) Hypertension Social History housing: halfway Smoking Status: Former smoker alcohol intake: never substance use type: does not use ROS ROS ED ROS Narrative Cough. Patient is a limited informant. Review of Systems ROS Unobtainable: due to mental status EXAM Physical Exam Narrative Exam Narrative: 62-year-old female vital signs are stable on 4 L her pulse ox is only 90%. She is hypoxic. Patient is afebrile. She does not look septic or toxic she does look dehydrated. HEENT exam eyes are open. Dry mucous membranes. No trauma to her head or face. Neck nontender no lymphadenopathy. No meningismus. Lungs clear to auscultation bilaterally. Diminished in both bases due to her body habitus. Heart rate about 95 no appreciable murmur. Abdomen morbidly obese but soft, no peritoneal signs. Nontender. Moving all 4 extremities. Nontender. No edema. Calves are nontender. No cords. Neurologically she is awake. Her eyes are open. She is answering questions. At times she seems confused. She does follow limited commands. Const Vital Signs: 04/16/23 13:16 04/16/23 13:16 04/16/23 13:35 Temperature 96 F L Temperature Source Temporal Pulse Rate 97 95 Respiratory Rate 18 16 Blood Pressure 152/123 H 152/123 H Blood Pressure Mean 132 132 Pulse Ox 90 90 90 Oxygen Delivery Method Nasal Cannula Nasal Cannula Room Air Oxygen Flow Rate (L/min) 4 4 04/16/23 15:15 Temperature Temperature Source Pulse Rate 93 Respiratory Rate 22 H Blood Pressure 118/92 H Blood Pressure Mean 100 Pulse Ox 93 Oxygen Delivery Method Nasal Cannula Oxygen Flow Rate (L/min) 5 Positive well nourished, well developed, obese, alert and no apparent distress; Negative for cachectic, contractures, unkempt, oriented x3 or average body habitus General Appearance ED: active, cooperative, comfortable and well developed; Negative for unkempt, cachectic or contractures Orientation / Consciousness: awake, oriented to person and oriented to place; Negative for oriented to time Nutritional Appearance: obese; Negative for cachectic HEENT Reports normocephalic and head/scalp atraumatic HEENT Narrative: Dry mucous membranes. normocephalic and normal to inspection Face and Sinus: normal facial exam Eyes PERRL, EOMs intact bilaterally, conjunctivae normal and no scleral icterus General Eye ED: Yes normal appearance of both eyes Neck full ROM, No nuchal rigidity, no lymphadenopathy, supple, no meningeal signs and no JVD General: normal visual inspection Lymph Lymphatic: no lymphadenopathy noted and no lymphedema noted; Negative for lymphedema or lymphadenopathy Chest Wall inspection of chest normal and palpation of chest normal Resp normal respiratory effort, normal air movement, no retractions, no use of accessory muscles and clear to auscultation bilaterally Resp Narrative: Diminished in both bases. Cardio regular rate, regular rhythm, S1 normal heart sound, S2 normal heart sound and no murmurs Rate: regular rate Rhythm: regular rhythm GI normal to inspection, nondistended, normoactive bowel sounds, soft to palpation, non-tender, non-distended, no masses and no bruits GI Narrative: Morbidly obese. No peritoneal signs. Palpation: soft; Negative for firm, tender or guarding Extremity normal to inspection, full ROM, normal capillary refill, no joint enlargement, no clubbing, cyanosis or edema, no calf tenderness and no pedal edema Neuro No oriented x3, CN's II-XII intact bilaterally, moves all extremities and no focal motor deficits Sensorium / Orientation: awake, alert, oriented to person and oriented to place Meningeal Signs: no meningeal signs Speech: speech normal Motor Exam: strength 5/5 throughout Psych mental status grossly normal, thought process normal, cooperative, affect normal, speech normal and activity/motor behavior normal Appearance: Negative for unkempt Attitude: calm and engaged Activity / Motor Behavior: appropriate eye contact Speech: normal speech Mood & Affect: euthymic mood Thought Process: normal thought process Thought Content: normal thought content Skin no rashes or lesions noted, no wounds, no jaundice, no petechiae and no mottling MDM MDM MDM Narrative Medical decision making narrative: 62-year-old female with morbid obesity and COPD with chronic 2 to 3 L of oxygen. Today had increased confusion at the halfway and was requiring additional oxygen. I spoke to her nurse at [facility]. History & Record Review Discussion w/independent historian: Patient Additional record(s) reviewed:: Prior inpatient record, Prior outpatient record, Prior ED visit and Prior labs Lab Data Attestation: I reviewed the patient's lab results. Lab results narrative: CBC shows a white count 13.1. H&H of 10.1 and 35. Platelets 327. Electrolytes show a gap of 5. BUN of 37 creatinine 5.65. She has a history of chronic kidney disease. Glucose 133. Lactic acid 0.8. Liver enzymes unremarkable. Urinalysis shows 10-25 no epithelial cells no night + 1+ bacteria. Urine culture will be sent. Venous blood gas shows a pH of 7.35., pCO2 59, pO2 48, sat 80% again a VBG. Labs: Laboratory Results - last 24 hr 04/16/23 04/16/23 04/16/23 13:25 13:40 15:15 WBC 13.1 H RBC 3.74 L Hgb 10.1 L Hct 35.5 L MCV 94.9 MCH 27.0 MCHC 28.5 L RDW Std Deviation 48.2 H RDW Coeff of David 14.1 Plt Count 327 MPV 11.1 Immature Gran % (Auto) 4.100 H Neut % (Auto) 72.5 H Lymph % (Auto) 13.8 L Barnes % (Auto) 8.3 Eos % (Auto) 0.8 Baso % (Auto) 0.5 Absolute Neuts (auto) 9.5 H Absolute Lymphs (auto) 1.80 Nucleated RBC % 0.2 Sodium 136 Potassium 4.7 Chloride 94 L Carbon Dioxide 37.0 H Anion Gap 5 BUN 37 H Creatinine 5.65 H Estim Creat Clear Calc 9.79 Est GFR (MDRD) Af Amer 10 L Est GFR (MDRD) Non-Af 8 L BUN/Creatinine Ratio 6.5 L Glucose 133 H Lactic Acid 0.8 Calcium 10.0 Total Bilirubin 0.20 AST 14 L ALT 14 Alkaline Phosphatase 86 Troponin I High Sens 18 Total Protein 6.8 Albumin 2.5 L Globulin 4.3 H Albumin/Globulin Ratio 0.6 L Urine Color Yellow Urine Clarity Sl. Cloudy Urine pH 5.0 Ur Specific Century 1.025 Urine Protein 100 H Urine Glucose (UA) 50 H Urine Ketones 5 H Urine Occult Blood 10 H Urine Nitrite Negative Urine Bilirubin 1 H Urine Urobilinogen Normal Ur Leukocyte Esterase 100 H Urine RBC 0-5 SEEN Urine WBC 10-25 SEEN Ur Squamous Epith Cells 0-5 SEEN Urine Bacteria 1+ Hyaline Casts 0-5 SEEN Urine Mucus 2+ ABG Data ABG results: ABG 04/16/23 15:30 Specimen Type SHELLEY Sample Site Not entered VBG pH 7.35 VBG pO2 48 H VBG HCO3 33 H VBG Total CO2 35 H VBG O2 Sat (Calc) 80 H VBG Base Excess 7 H POC Mix VBG pCO2 Pt Tmp 59.4 H O2 Delivery Device Cannula Radiography Chest X-Ray - ED: 1 View, Read by ED Physician, Read by Radiologist, Lungs, Mediastinum, Bony Structures and Chronic Changes Diagnostic Testing: Clinical Impression(s) from Imaging Studies Brain CT 04/16/23 13:29 IMPRESSION: 1. Markedly limited examination due to significant artifacts. 2. No acute intracranial process. 3. Pansinusitis. 4. If symptoms persist, follow-up exam or MRI of the brain is recommended. Electronically Signed: Azar Martinez MD at 14:43 EST , Chest X-Ray 04/16/23 14:18 IMPRESSION: Overall, no significant change since previous exam. Electronically Signed: Azar Matrinez MD at 14:53 EST , Chest x-ray portable limited film due to the patient's body habitus. Unchanged from prior. No obvious acute abnormalities but limited. Rhythm Strip Rhythm Strip: Sinus Rhythm Rate: 96 Ectopy: PVC(s) EKG Initial EKG: Attestation: I personally reviewed and interpreted this EKG as follows: Interpretation: Sinus Rhythm and No Acute Injury Pattern Comments: Sinus rhythm rate of 96. Occasional PVCs. No acute sign of SC or ischemia. Discharge Plan Dx/Rx/DC Orders Clinical Impression: Acute kidney injury, UTI (urinary tract infection), RSV bronchitis, Morbid obesity, Altered level of consciousness, Hypoxia Disposition Disposition: Acute Care [facility]
[2023-04-16] MEDS: 0.9% Normal Saline (1000mL) 1,000 ML 1000 ML IV (13:39)
[2023-04-16 13:50] LABS: Absolute Neutrophil Count 9.5 X10^3/uL (2.0-7.7); Basophil# 0.07 X10^3/uL; Basophil% 0.5 % (0-1); Eosinophils% 0.8 % (0-5); Hematocrit 35.5 % (37-47); Hemoglobin 10.1 g/dL (12.0-15.0); Lymphocyte % 13.8 % (19-41); Mean Corp Hgb Conc 28.5 g/dL (32-36); Mean Corpuscular Volume 94.9 fL (81-99); Mean Platelet Vol. 11.1 fl (6.2-12.0); Monocyte# 1.08 X10^3/uL; Monocyte% 8.3 % (0-10); NRBC Flagged by Analyzer 0.2 % (0-5); Neutrophil % 72.5 % (47-70); Platelet Count 327 K/mm3 (150-450); RBC Distribution Width CV 14.1 % (11.6-14.6); RBC Distribution Width SD 48.2 fl (35.1-43.9); Red Blood Count 3.74 M/mm3 (4.2-5.4); White Blood Count 13.1 K/mm3 (4.4-11.0)
[2023-04-16 13:58] LABS: ALB/GLOB Ratio 0.6 RATIO (0.9-2.4); AST(SGOT) 14 U/L (15-37); Alanine Aminotransfer ALT/SGPT 14 U/L (13-56); Albumin, Serum 2.5 g/dL (3.2-5.0); Alkaline Phosphatase 86 U/L (45-117); Anion Gap 5 (5-15); BUN 37 mg/dL (7-18); BUN/Creat Ratio 6.5 RATIO (10-20); Chloride 94 mmol/L (98-107); Creatinine, Serum 5.65 mg/dL (0.55-1.02); EST Glomerular Filtration Rate 8 mL/min (>60); Est Glom Filt Rate - Afr Amer 10 mL/min (>60); Estimated Creatinine Clearance 9.79 ml/min; Globulin 4.3 g/dL (2.2-4.2); Glucose 133 mg/dL (74-106); Potassium 4.7 mmol/L (3.5-5.1); Protein, Total 6.8 g/dL (6.4-8.2); Sodium Level 136 mmol/L (136-145); Troponin-I HS 18 pg/mL (3.0-54.0)
--- NOTE | 2023-04-16 14:18 | RAD_ITS ---
INDICATION: ALOC EXAMINATION/TECHNIQUE: X-RAY - XR Chest 1 View COMPARISON: Prior study dated: 12/02/2022. FINDINGS: LINES/DEVICES: Left sided central venous catheter or Port-A-Cath with the tip in the superior vena cava. LUNGS: The cardiomediastinal silhouette is shifted to the right side of the positional but unchanged. Overlying soft tissue density could be breast tissue. No focal infiltrate is definitely identified. No evidence of pleural effusions. MEDIASTINUM AND CARDIOVASCULAR STRUCTURES: Stable cardiomediastinal silhouette. BONES AND SOFT TISSUES: Unchanged. RAD/Chest 1 View (Portable) IMPRESSION: Overall, no significant change since previous exam. Electronically Signed: Azar Martinez MD at 14:53 EST ,
[2023-04-16 14:23] LABS: Lactic Acid 0.8 mmol/L (0.4-1.9)
[2023-04-16 15:21] LABS: Color, Urine Yellow (Yellow); Glucose, Dipstick 50 mg/dl (Normal); Ketone-Dipstick 5 mg/dl (Negative); Leukocyte Esterase-Dipstick 100 /ul (Negative); Nitrite-Dipstick Negative (Negative); Occult Blood-Urine 10 /ul (Negative); Protein-Dipstick 100 mg/dl (Negative); Specific Gravity, Urine 1.025 (1.002-1.030); Urine Clarity Sl. Cloudy (Clear); Urine Urobilinogen Normal (Normal)
[2023-04-16 15:22] LABS: Urine Bilirubin Dipstick 1 mg/dL (Negative)
[2023-04-16 15:29] LABS: Bacteria 1+ /hpf (None Seen); Hyaline Cast 0-5 SEEN /lpf (0-5); Mucous, Urine 2+ /hpf (<or=2+); Red Blood Cells-Urine 0-5 SEEN /hpf (0-5); Squamous Epithelial Cells - UA 0-5 SEEN /hpf (5-10); White Blood Cells 10-25 SEEN /hpf (0-5)
[2023-04-16 15:34] LABS: Blood Gas Specimen Type VEN; O2 Delivery Device Cannula; SITE Not entered; VBG BASE EXCESS 7 mmol/L (-1.0-3.5); VBG Bicarbonate 33 mmol/L (22-26); VBG PO2 48 mmHg (25-40); VBG SO2 80 % (50-70); VBG TCO2 35 mmol/L (23-33); VBG pCO2 59.4 mmHg (41-51); VBG pH 7.35 (7.32-7.42)
--- NOTE | 2023-04-16 16:34 | PCM.HP.STD ---
HPI - General General Date of Admission: 04/16/23 Date of Service: 04/16/23 Chief Complaint: Cough, dyspnea, wheezing, mentation change. HPI Narrative The patient is a 62 y/o F w/ PMHx: Morbid Obesity, HFrEF, HTN, HLD, Chronic anemia, Anxiety and Deprssion, Chronic pain syndrome, Chronic Hypoxic Respiratory Failure (2-3L NC) with COPD/Asthma, GERD w/ PUD, Hx TIA, Allergic rhinitis, MARISOL on BIPAP q HS who presents to the [facility] ED on 04/16/22 from her SNF secondary to increasing confusion, lethargy, notable cough and recent wheezing with recent poor oral intake over the last 36-48 hours prompting ED transition for evaluation. Workup in the ED included T96, heart rate 97, BP 152/123, respiratory rate 18, 90% on 4 L nasal cannula initially with most recent repeat assessment BP 118/92, respiratory rate 22, 93% on 5 L nasal cannula, CBC with WBC 13.1, hemoglobin 10.1, MCV 94.9, platelet 327 with increased immature granulocytes and left shift, VBG with pH 7.35, pO2 48, bicarb 33, CO2 35, O2 saturation 80%, CMP with chloride 94, Comvax at 37, BUN/creatinine 37/5.65, glucose 133, lactic acid 0.8, hepatic profile not marked appearing, troponin 18, urinalysis with cloudy appearing urine, specific gravity 1.025, protein 100, glucose 50, ketone 5, occult blood 10, negative nitrite, leukocyte Estrace 100 with urine WBCs 10-25 with 1+ urine bacteria, blood culture x 2 pending per ED, SARS COVID/flu/RSV PCR with positive RSV, chest x-ray with a left-sided central venous catheter in place with no acute cardiopulmonary findings otherwise, CT brain with limited exam secondary to artifact, para sinusitis evident, no acute intracranial process otherwise, EKG with SR with occasional PVC with no acute evidence of ischemia. In the ED patient ministered 1 L normal saline as well as Rocephin 1 g IV x 1. [facility] Medical History (Updated 04/16/23 @ 19:[address] 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 deficits Seasonal allergies TIA (transient ischemic attack) UTI (urinary tract infection) Vitamin D deficiency Home Medications amitriptyline 25 mg tablet 25 mg PO QODAY DEPRESSION 05/03/22 [History Last Taken 04/15/23] atorvastatin 20 mg tablet 20 mg PO QHS CHOLESTEROL 05/03/22 [History Last Taken 04/15/23] cyclobenzaprine 10 mg tablet 10 mg PO TID MUSCLE SPASMS 05/03/22 [History Last Taken 04/16/23] famotidine 20 mg tablet 20 mg PO QHS GERD 05/03/22 [History Last Taken 04/15/23] fluticasone propionate 50 mcg/actuation nasal spray,suspension 2 spray intranasal BID PRN NASAL CONGESTION 05/03/22 [History Last Taken 05/28/22] losartan 50 mg tablet 50 mg PO DAILY BLOOD PRESSURE 05/03/22 [History Last Taken 04/16/23] montelukast 10 mg tablet 10 mg PO DAILY ALLERGIES 05/03/22 [History Last Taken 04/16/23] omeprazole 20 mg tablet,delayed release 20 mg PO DAILY GERD 05/03/22 [History Last Taken 04/16/23] roflumilast 500 mcg tablet (Daliresp) 500 mcg PO DAILY ASTHMA 05/03/22 [History Last Taken 04/16/23] sertraline 100 mg tablet (Zoloft) 100 mg PO QHS DEPRESSION 05/03/22 [History Last Taken 04/16/23] dicyclomine 10 mg capsule 10 mg PO 4X/DAY IRRITABLE BOWELS #1 cap 05/05/22 [Rx Last Taken 04/16/23] furosemide 40 mg tablet 40 mg PO DAILY FLUID #30 tabs 05/30/22 [Rx Last Taken 04/16/23] albuterol sulfate 90 mcg/actuation aerosol inhaler 2 puff inhalation Q2H PRN SOB 09/08/22 [History Last Taken 04/12/23] cholecalciferol (vitamin D3) 50 mcg (2,000 unit) tablet 50 mcg PO DAILY SUPPLEMENT 04/16/23 [History Last Taken 04/16/23] loperamide 2 mg capsule (Imodium A-D) 2 mg PO Q8H PRN DIARRHEA 04/16/23 [History Last Taken 04/09/23] prednisone 10 mg tablet 10 mg PO DAILY COPD 04/16/23 [History Last Taken 04/16/23] sertraline 50 mg tablet 50 mg PO DAILY DEPRESSION 04/16/23 [History Last Taken 04/16/23] spironolactone 25 mg tablet 12.5 mg PO DAILY BLOOD PRESSURE 04/16/23 [History Last Taken 04/15/23] Allergy/AdvReac Type Severity Reaction Status Date / Time aspirin Allergy Other Verified 09/08/22 00:15 black pepper [pepper] Allergy Other Verified 09/08/22 00:15 coconut Allergy Other Verified 09/08/22 00:15 codeine Allergy Other Verified 09/08/22 00:15 ibuprofen Allergy Other Verified 09/08/22 00:15 Influenza Virus Vaccines Allergy Other Verified 09/08/22 00:15 Penicillins Allergy Anaphylaxis Verified 09/08/22 00:15 rice Allergy Other Verified 09/08/22 00:15 tetanus and diphtheria Allergy Other Verified 09/08/22 00:15 toxoids Tetanus Vaccines and Toxoid Allergy Other Verified 09/08/22 00:15 Family History Mother CAD (coronary artery disease) COPD (chronic obstructive pulmonary disease) Hypertension Heart disease Father CAD (coronary artery disease) COPD (chronic obstructive pulmonary disease) Hypertension Heart disease Surgical History (Updated 04/16/23 @ 19:[address] Elizabeth Choe MD) History of ankle surgery Social History housing: [facility] Smoking Status: Former smoker alcohol intake: never substance use type: does not use ROS Review of Systems ROS Unobtainable: due to encephalopathy Vital Signs Vital Signs Vital Signs: 04/16/23 13:16 04/16/23 13:16 04/16/23 13:35 Temperature 96 F L Temperature Source Temporal Pulse Rate 97 95 Respiratory Rate 18 16 Blood Pressure 152/123 H 152/123 H Blood Pressure Mean 132 132 Pulse Ox 90 90 90 Oxygen Delivery Method Nasal Cannula Nasal Cannula Room Air Oxygen Flow Rate (L/min) 4 4 04/16/23 15:15 Temperature Temperature Source Pulse Rate 93 Respiratory Rate 22 H Blood Pressure 118/92 H Blood Pressure Mean 100 Pulse Ox 93 Oxygen Delivery Method Nasal Cannula Oxygen Flow Rate (L/min) 5 Weight Weight: 314 lb 6.067 oz Body Mass Index (BMI) 50.7 Physical Exam Narrative Physical Examination: General: Awakens to stimuli, intermittently alert, oriented to self but still encephalopathic however she is improving, seated upright in the ED bed, no acute distress. Skin: Normal color, normal turgor, no icterus, no cyanosis except for occasional staged ecchymoses, venous stasis skin changes to bilateral lower extremities, intertrigo. HEENT: AT/NC, EOMI, PERRLA, mildly dry MM, significant facial hair evident, unable to discern carotid bruit or JVD given significant thickened neck. Lungs: Extremely distant breath sounds, diminished, greater bases, occasional end expiratory wheeze, mildly increased respiratory rate but no distress, no appreciated rales or rhonchi. Heart: Mildly tachycardic with regular rhythm; no gallop, rub audible. Abdomen: Soft, morbidly obese, distant bowel sounds, unable to discern distention or HSM given habitus. Extremities: No cyanosis, no clubbing, significant distal peripheral edema, chronic Neurological: Awakens to stimuli, intermittently alert, oriented to self but still encephalopathic however she is improving, seated upright in the ED bed, no acute distress, cognitive function not baseline intact but improving since initial arrival, pupils equally reactive to light and accommodation, cranial nerves grossly normal, moving all 4 extremities, strength severely globally decreased secondary to acute presentation compounded by underlying comorbidities especially significant morbidly obese habitus. Psychiatric: Affect appears mildly agitated, does have underlying history of depression and anxiety. Results Lab / Micro Data 04/16/23 13:25 04/16/23 13:25 Labs: Laboratory Results - last 24 hr 04/16/23 13:25: WBC 13.1 H, RBC 3.74 L, Hgb 10.1 L, Hct 35.5 L, MCV 94.9, MCH 27.0, MCHC 28.5 L, RDW Std Deviation 48.2 H, RDW Coeff of David 14.1, Plt Count 327, MPV 11.1, Immature Gran % (Auto) 4.100 H, Neut % (Auto) 72.5 H, Lymph % (Auto) 13.8 L, [place] % (Auto) 8.3, Eos % (Auto) 0.8, Baso % (Auto) 0.5, Absolute Neuts (auto) 9.5 H, Absolute Lymphs (auto) 1.80, Nucleated RBC % 0.2, Sodium 136, Potassium 4.7, Chloride 94 L, Carbon Dioxide 37.0 H, Anion Gap 5, BUN 37 H, Creatinine 5.65 H, Estim Creat Clear Calc 9.79, Est GFR (MDRD) Af Amer 10 L, Est GFR (MDRD) Non-Af 8 L, BUN/Creatinine Ratio 6.5 L, Glucose 133 H, Calcium 10.0, Total Bilirubin 0.20, AST 14 L, ALT 14, Alkaline Phosphatase 86, Troponin I High Sens 18, Total Protein 6.8, Albumin 2.5 L, Globulin 4.3 H, Albumin/Globulin Ratio 0.6 L 04/16/23 13:40: Lactic Acid 0.8 04/16/23 15:15: Urine Color Yellow, Urine Clarity Sl. Cloudy, Urine pH 5.0, Ur Specific [place] 1.025, Urine Protein 100 H, Urine Glucose (UA) 50 H, Urine Ketones 5 H, Urine Occult Blood 10 H, Urine Nitrite Negative, Urine Bilirubin 1 H, Urine Urobilinogen Normal, Ur Leukocyte Esterase 100 H, Urine RBC 0-5 SEEN, Urine WBC 10-25 SEEN, Ur Squamous Epith Cells 0-5 SEEN, Urine Bacteria 1+, Hyaline Casts 0-5 SEEN, Urine Mucus 2+ Micro: Microbiology 04/16/23 13:37 Mucosa - Nose SARS-CoV-2, Influenza & RSV (PCR) - Final RSV ABG Data ABG results: ABG 04/16/23 15:30 Specimen Type SHELLEY Sample Site Not entered VBG pH 7.35 VBG pO2 48 H VBG HCO3 33 H VBG Total CO2 35 H VBG O2 Sat (Calc) 80 H VBG Base Excess 7 H POC Mix VBG pCO2 Pt Tmp 59.4 H O2 Delivery Device Cannula Rhythm Strip Rhythm Strip: Sinus Rhythm Rate: 96 Ectopy: PVC(s) Imagaing Radiology Impression Brain CT 04/16/23 13:29 IMPRESSION: 1. Markedly limited examination due to significant artifacts. 2. No acute intracranial process. 3. Pansinusitis. 4. If symptoms persist, follow-up exam or MRI of the brain is recommended. Electronically Signed: Azar Martinez MD at 14:43 EST , Chest X-Ray 04/16/23 14:18 IMPRESSION: Overall, no significant change since previous exam. Electronically Signed: Azar Martinez MD at 14:53 EST , Assessment & Plan Assessment/Plan (1) RSV bronchitis: PLAN: Plan The patient is a 62 y/o F w/ PMHx: Morbid Obesity, HFrEF, HTN, HLD, Chronic anemia, Anxiety and Deprssion, Chronic pain syndrome, Chronic Hypoxic Respiratory Failure (2-3L NC) with COPD/Asthma, GERD w/ PUD, Hx TIA, Allergic rhinitis, MARISOL on BIPAP q HS who presents to the [facility] ED on 04/16/22 from her SNF secondary to increasing confusion, lethargy, notable cough and recent wheezing with recent poor oral intake over the last 36-48 hours prompting ED transition for evaluation. #1. Acute Encephalopathy secondary to Acute on Chronic Hypoxic Respiratory Failure secondary to Acute RSV Viral Syndrome/Bronchitis with associated Acute on Chronic COPD/Asthma Exacerbation and #2, complicated by #3: Will admit to PCU, maintain on oxygen with wean as tolerated to home oxygen supplementation, maintain on IV solumedrol with temporary hold on home chronic oral regimen, continue ATC duonebs, PRN albuterol, HOB, IS parameters w/ pending sputum cultures and urine antigens to be cautious, if worsening may repeat CXR and consider addition of abx for superimposed bacterial component as well as potential consider. Procalcitonin requested. Bld cx x 2 obtained in the ED. PT/OT/CM consulted for discharge planning. #2. Possible Acute Complicated Urinary Tract Infection: UA upon ED evaluation mildly remarkable, pending UCx, continue judicious IVFs, monitor I/Os, continue IV Rocephin initiated in the ED and tolerated w/ transition as able pending sensitivities and speciation. Bld cx x 2 obtained in the ED. #3. Acute kidney injury: Secondary to acute presentation as noted. Admission BUN/Cr 37/5.65, prior baseline creatinine noted to be 0.6-0.9, most recently noted 03/08/2023 creatinine 0.99. Will judiciously hydrate given underlying HF history, hold nephrotoxic medications and repeat chemistry in AM. If no improvement would plan FeNa and renal ultrasound assessment. #4. HFrEF: 05/05/2022 echocardiogram with EF 55 to 60%, difficult visualization/TDS. Patient with reported aspirin allergy, will continue statin therapy, holding Lasix and losartan given acute kidney rate as noted newly hydrating, not on beta-rome therapy per current list. #5. Chronic anemia, normocytic: Admission hemoglobin 10.1, MCV 94.9, hemoglobin baseline appears 9-10 range, stable, continue to trend. #6. Hypertension: Given significant ZONIA hold patient home Lasix and losartan, as needed IV hydralazine in interim. #7. Hyperlipidemia: Will continue patient on statin therapy. #8. Allergic rhinitis: Will continue montelukast, fluticasone home regimen. #9. Anxiety and depression: We will temporally hold home psychiatric regimen given significant ZONIA, resume once function appropriate #10. Hyperlipidemia: We will continue patient on statin therapy. #11. GERD with PUD: We will continue patient on PPI. #12. Morbid Obesity: Weight loss and lifestyle changes encouraged. #13. MARISOL: BiPAP nightly. #14. DVT Prophylaxis: Heparin. #15. CODE status: Patient Full Code status per facility skilled paperwork. Charges/Coding Visit Charges Inpatient E&M: 51733 Init Hosp L3
[2023-04-16] MEDS: Ceftriaxone 1 GM/50 ML BAG IV (16:54)
--- NOTE | 2023-04-16 17:23 | ED.RN ---
called report to ARIC Morales at [facility]. informed of admission. all questions answered
[2023-04-16 19:53] LABS: Procalcitonin 0.24 ng/mL (0.00-0.09)
[2023-04-16] MEDS: 0.9% Normal Saline (1000mL) 1,000 ML 100 ML IV (20:56)
[2023-04-16] MEDS: 0.9% Saline Lock 10 ML Syringe IV (21:02)
[2023-04-16] MEDS: Heparin Injection (Vial) 5,000 UNIT/ML VIAL 5000 UNIT SC (21:09)
[2023-04-16] MEDS: Miconazole Nitrate 43 GM Bottle 1 APPLIC TOPICAL (23:37)
[2023-04-16] MEDS: Menthol/Lanolin/Calamine/Znox 113 GM Tube 1 APPLIC TOPICAL (23:43)
[2023-04-17] VITALS (30 sets, daily range): BP systolic 91–111; BP diastolic 52–63; PULSE 93–100; RESP 14–20; TEMP 36.6–36.9; O2SAT 58–99; BMI 56.9
--- NOTE | 2023-04-17 02:00 | NURSING ---
bladder scan for 80ml
[2023-04-17] MEDS: 0.9% Normal Saline (1000mL) 1,000 ML 100 ML IV (06:11)
--- NOTE | 2023-04-17 06:43 | NURSING ---
bladder scan 97ml
--- NOTE | 2023-04-17 08:08 | PCM.PN.HOSP ---
Reason for Visit Reason for Visit: Diagnoses Acute bronchitis due to respiratory syncytial virus (04/16/23) Subjective Subjective Patient is a 62-year-old lady with multiple comorbidities including obesity with BMI of 57 currently residing at an extended care facility who was brought in with altered mental status. An assessment of acute encephalopathy secondary to RSV bronchitis made admitted to a monitored bed for subsequent management Objective Data Objective Data Vital Signs: Vital Signs Temp Pulse Resp BP Pulse Ox O2 Del Method O2 Flow Rate 98 F 99 18 91/54 L 91 High Flow 6 04/17/23 06:00 04/17/23 06:00 04/17/23 06:00 04/17/23 06:00 04/17/23 08:01 04/17/23 08:01 04/17/23 08:01 FiO2 30 04/17/23 02:23 Oxygen Flow Rate (L/min) 6 Oxygen Delivery Method High Flow Weight: 160 kg Body Mass Index (BMI) 56.9 Intake & Output: Intake and Output for Last 24 Hours 04/15/23 04/16/23 04/17/23 23:59 23:59 23:59 Intake Total 1050 / 1050 925 / 925 Balance 1050 / 1050 925 / 925 Lab / Micro Data 04/17/23 08:08 04/17/23 08:08 Labs: Laboratory Results - last 24 hr 04/16/23 13:25: WBC 13.1 H, RBC 3.74 L, Hgb 10.1 L, Hct 35.5 L, MCV 94.9, MCH 27.0, MCHC 28.5 L, RDW Std Deviation 48.2 H, RDW Coeff of David 14.1, Plt Count 327, MPV 11.1, Immature Gran % (Auto) 4.100 H, Neut % (Auto) 72.5 H, Lymph % (Auto) 13.8 L, [place] % (Auto) 8.3, Eos % (Auto) 0.8, Baso % (Auto) 0.5, Absolute Neuts (auto) 9.5 H, Absolute Lymphs (auto) 1.80, Nucleated RBC % 0.2, Sodium 136, Potassium 4.7, Chloride 94 L, Carbon Dioxide 37.0 H, Anion Gap 5, BUN 37 H, Creatinine 5.65 H, Estim Creat Clear Calc 9.79, Est GFR (MDRD) Af Amer 10 L, Est GFR (MDRD) Non-Af 8 L, BUN/Creatinine Ratio 6.5 L, Glucose 133 H, Calcium 10.0, Total Bilirubin 0.20, AST 14 L, ALT 14, Alkaline Phosphatase 86, Troponin I High Sens 18, Total Protein 6.8, Albumin 2.5 L, Globulin 4.3 H, Albumin/Globulin Ratio 0.6 L 04/16/23 13:40: Lactic Acid 0.8 04/16/23 15:15: Urine Color Yellow, Urine Clarity Sl. Cloudy, Urine pH 5.0, Ur Specific [place] 1.025, Urine Protein 100 H, Urine Glucose (UA) 50 H, Urine Ketones 5 H, Urine Occult Blood 10 H, Urine Nitrite Negative, Urine Bilirubin 1 H, Urine Urobilinogen Normal, Ur Leukocyte Esterase 100 H, Urine RBC 0-5 SEEN, Urine WBC 10-25 SEEN, Ur Squamous Epith Cells 0-5 SEEN, Urine Bacteria 1+, Hyaline Casts 0-5 SEEN, Urine Mucus 2+ 04/16/23 19:07: Procalcitonin 0.24 H Micro: Microbiology 04/16/23 15:15 Urine, Clean Catch Legionella Antigen - Final 04/16/23 15:15 Urine, Clean Catch Streptococcus pneumoniae Antigen (M - Final 04/16/23 13:37 Mucosa - Nose SARS-CoV-2, Influenza & RSV (PCR) - Final RSV ABG Data ABG results: ABG 04/16/23 15:30 Specimen Type SHELLEY Sample Site Not entered VBG pH 7.35 VBG pO2 48 H VBG HCO3 33 H VBG Total CO2 35 H VBG O2 Sat (Calc) 80 H VBG Base Excess 7 H POC Mix VBG pCO2 Pt Tmp 59.4 H O2 Delivery Device Cannula Radiography Diagnostic Testing: Radiology Impression Brain CT 04/16/23 13:29 IMPRESSION: 1. Markedly limited examination due to significant artifacts. 2. No acute intracranial process. 3. Pansinusitis. 4. If symptoms persist, follow-up exam or MRI of the brain is recommended. Electronically Signed: Azar Martinez MD at 14:43 EST , Chest X-Ray 04/16/23 14:18 IMPRESSION: Overall, no significant change since previous exam. Electronically Signed: Azar Martinez MD at 14:53 EST , Rhythm Strip Rhythm Strip: Sinus Rhythm Rate: 96 Ectopy: PVC(s) Physical Exam Narrative GENERAL: Lethargic but arousable with sternal rub HEENT: Atraumatic; normocephalic EYES; Anicteric, Normal Conjunctiva NECK; supple, normal thyroid, RESPIRATORY: Diminished to auscultation CARDIOVASCULAR: Regular S1 S2, GI: soft, normoactive bowel sounds, : No Renal angle tenderness; EXTREMITIES: No edema, no clubbing, MUSCULOSKELETAL: no muscle wasting NEURO: Awake; no lateralizing signs. SKIN: No Rash PSYCH; lethargic Assessment & Plan Assessment/Plan (1) RSV bronchitis: PLAN: Plan Patient is a 62-year-old lady with multiple comorbidities including obesity with BMI of 57 currently residing at an extended care facility who was brought in with altered mental status. An assessment of acute encephalopathy secondary to RSV bronchitis made admitted to a monitored bed for subsequent management 1. Acute metabolic encephalopathy ? Due to combination of RSV bronchitis as well as acute cystitis. Admitted to a monitored bed for treatment of underlying clinical etiology 2. Acute RSV infection with bronchitis ? Admitted to regular nursing floor managed with bronchodilator treatment regimen as well as supplemental oxygen 3. Acute on chronic hypoxic respiratory failure ? Due to combination of sleep apnea and obesity hypoventilation syndrome as well as patient RSV bronchitis. Managed with supplemental oxygen titrated to keep saturation greater than 90 4. Acute kidney injury ? Patient baseline creatinine from 03/08/2023 was 0.99, creatinine on admission was 5.65 admitted to monitored bed managed with IV fluids, ordered renal ultrasound, avoid nephrotoxic medication, response to therapy being monitored with daily BMP 5. Essential hypertension ? Patient is on losartan held in view of impaired kidney function 6.? Chronic hypoxic respiratory failure ? Due to obstructive sleep apnea as well as obesity hypoventilation syndrome patient is on baseline oxygen 7.? Obesity hypoventilation syndrome ? Consistent use of BiPAP encouraged 8.? COPD ? Currently not in exacerbation aerosol treatments as needed 9.?Class III obesity with BMI of BMI of 57 ? Complicating care 10. GERD ? On PPI 11. Depression ? Patient is on SSRI 12. Anemia - Secondary to chronic disorder monitoring H&H and transfuse if patient becomes symptomatic or hemoglobin falls below 7 13. Chronic congestive heart failure with preserved ejection fraction ? Echo from 05/05/2022 demonstrated EF of 55 to 60%. Patient is on Aldactone held in view of her impaired kidney function 14. DVT prophylaxis ? SC heparin Time spent in the patient's overall evaluation,decision-making process, review of diagnostic data, adjustment of management, discussion with other providers, nursing nursing and ancillary staff involved in patient's care documentation, 55 Minutes Charges/Coding Visit Charges Inpatient E&M: 38299 Subs Hosp L3
[2023-04-17 08:18] LABS: Hematocrit 33.7 % (37-47); Mean Corp Hgb Conc 29.7 g/dL (32-36); Mean Corpuscular Hgb 28.1 pg (27.0-32.0); Mean Corpuscular Volume 94.7 fL (81-99); Mean Platelet Vol. 10.9 fl (6.2-12.0); POSITIVE COUNT YES; POSITIVE DIFFERENTIAL YES; POSITIVE MORPHOLOGY YES; Platelet Count 286 K/mm3 (150-450); RBC Distribution Width CV 13.9 % (11.6-14.6); RBC Distribution Width SD 48.4 fl (35.1-43.9); Red Blood Count 3.56 M/mm3 (4.2-5.4)
[2023-04-17 08:19] LABS: Differential Indicated MANUAL DIFF
[2023-04-17 08:54] LABS: Eosinophil 1 % (0-5); Lymphocyte 8 % (19-41); Myelocyte 3 % (0-0); Neutrophil-Band 1 % (0-5); Neutrophil-Segmented 87 % (47-70); Platelet Estimate ADEQUATE (ADEQ); Red Cell Morphology NORM C+C NORMAL (NORM C&C); Total Cells Counted 100 (MANUAL DIFF)
[2023-04-17 08:55] LABS: Absolute Lymphocyte Count 0.88 X10^3/uL (0.83-4.51); Absolute Neutrophil Count 9.7 X10^3/uL (2.0-7.7)
[2023-04-17 08:56] LABS: ALB/GLOB Ratio 0.6 RATIO (0.9-2.4); AST(SGOT) 15 U/L (15-37); Alanine Aminotransfer ALT/SGPT 14 U/L (13-56); Albumin, Serum 2.5 g/dL (3.2-5.0); Alkaline Phosphatase 89 U/L (45-117); Anion Gap 5 (5-15); BUN 43 mg/dL (7-18); BUN/Creat Ratio 7.8 RATIO (10-20); Calcium,Total 9.5 mg/dL (8.5-10.1); Chloride 99 mmol/L (98-107); EST Glomerular Filtration Rate 8 mL/min (>60); Est Glom Filt Rate - Afr Amer 10 mL/min (>60); Estimated Creatinine Clearance 10.06 ml/min; Globulin 4.3 g/dL (2.2-4.2); Glucose 149 mg/dL (74-106); Potassium 4.8 mmol/L (3.5-5.1); Protein, Total 6.8 g/dL (6.4-8.2); Sodium Level 138 mmol/L (136-145)
--- NOTE | 2023-04-17 10:33 | CASEMGMT ---
Addendum entered by Sheeba Lucio 04/17/23 10:42: LENCHO received a return call from [facility] stating the plan is for patient to return to [facility] at discharge. Plan: d/c back to [facility] when medically ready. Sheeba GENAO Original Note: LENCHO called patient's significant other [facility] and left him a voice mail asking if patient's plan is to return to [facility] when ready for discharge. Sheeba GENAO
--- NOTE | 2023-04-17 10:52 | CASEMGMT ---
Addendum entered by Payal Li 04/17/23 10:57: Patient is a bedhold and will not need a precert to return. SW updated. Payal Li, Discharge Planning Asst. Original Note: Discharge Planning Updates sent to [facility] via [facility]. Asked if precert will be needed. Awaiting response. Payal Li, Discharge Planning Asst.
[2023-04-17] MEDS: Ceftriaxone 1 GM/50 ML BAG IV (11:37)
[2023-04-17] MEDS: Menthol/Lanolin/Calamine/Znox 113 GM Tube 1 APPLIC TOPICAL ×3 (11:40→21:46)
[2023-04-17] MEDS: Miconazole Nitrate 43 GM Bottle 1 APPLIC TOPICAL ×2 (11:40→21:47)
[2023-04-17] MEDS: Heparin Injection (Vial) 5,000 UNIT/ML VIAL 5000 UNIT SC ×2 (11:41→21:47)
--- NOTE | 2023-04-17 11:52 | US_ITS ---
EXAM: US RETROPERITONEAL LIMITED, RENAL CLINICAL INDICATION: ZONIA TECHNIQUE: Limited grayscale and color Doppler sonographic evaluation of the retroperitoneum was performed. COMPARISON: No relevant prior studies available. FINDINGS: AORTA: Abdominal aorta is obscured by overlying bowel gas. RIGHT KIDNEY: Right kidney is obscured by overlying bowel gas and patient''s large body habitus. No evidence of hydronephrosis. LEFT KIDNEY: Left kidney is better seen and measures 12.8 cm in length. No hydronephrosis. 18 mm left renal cyst. No shadowing calculus. No perinephric collection is demonstrated. BLADDER: Urinary bladder is empty. US/Kidney and Bladder IMPRESSION: Incomplete evaluation of the right kidney. No evidence of hydronephrosis. Electronically Signed: Costa Johnson MD at 16:58 EST ,
[2023-04-17] MEDS: 0.9% Normal Saline (1000mL) 1,000 ML 125 ML IV ×2 (13:05→20:33)
[2023-04-18] VITALS (18 sets, daily range): BP systolic 94–147; BP diastolic 44–82; PULSE 82–102; RESP 18–19; TEMP 36.1–36.6; O2SAT 86–99; BMI 57.3
[2023-04-18] MEDS: 0.9% Normal Saline (1000mL) 1,000 ML 125 ML IV ×3 (04:29→18:20)
[2023-04-18 06:23] LABS: Absolute Lymphocyte Count 0.86 X10^3/uL (0.83-4.51); Absolute Neutrophil Count 6.7 X10^3/uL (2.0-7.7); Basophil# 0.04 X10^3/uL; Basophil% 0.5 % (0-1); Hematocrit 32.2 % (37-47); Hemoglobin 9.3 g/dL (12.0-15.0); Lymphocyte # 0.86 X10^3/ul (0.83-4.51); Lymphocyte % 10.2 % (19-41); Mean Corp Hgb Conc 28.9 g/dL (32-36); Mean Corpuscular Hgb 27.3 pg (27.0-32.0); Mean Corpuscular Volume 94.4 fL (81-99); Monocyte# 0.49 X10^3/uL; Monocyte% 5.8 % (0-10); NRBC Flagged by Analyzer 0 % (0-5); Neutrophil # 6.66 X10^3/uL (2.7-7.7); Platelet Count 283 K/mm3 (150-450); RBC Distribution Width CV 13.7 % (11.6-14.6); RBC Distribution Width SD 46.9 fl (35.1-43.9); Red Blood Count 3.41 M/mm3 (4.2-5.4); White Blood Count 8.4 K/mm3 (4.4-11.0)
[2023-04-18 06:50] LABS: Anion Gap 5 (5-15); BUN 45 mg/dL (7-18); BUN/Creat Ratio 12.4 RATIO (10-20); Calcium,Total 8.6 mg/dL (8.5-10.1); Chloride 102 mmol/L (98-107); Creatinine, Serum 3.63 mg/dL (0.55-1.02); EST Glomerular Filtration Rate 14 mL/min (>60); Est Glom Filt Rate - Afr Amer 16 mL/min (>60); Estimated Creatinine Clearance 25.71 ml/min; Glucose 115 mg/dL (74-106); Magnesium 1.8 mg/dL (1.6-2.6); Phosphorus 5.7 mg/dL (2.5-4.9); Potassium 4.3 mmol/L (3.5-5.1); Sodium Level 141 mmol/L (136-145)
[2023-04-18] MEDS: Pantoprazole Sodium 20 MG Tablet PO (09:42)
[2023-04-18] MEDS: Dicyclomine 10 MG Capsule PO ×3 (09:42→20:50)
[2023-04-18] MEDS: Montelukast 10 MG Tablet PO (09:42)
[2023-04-18] MEDS: Heparin Injection (Vial) 5,000 UNIT/ML VIAL 5000 UNIT SC ×2 (09:42→20:50)
[2023-04-18] MEDS: Ceftriaxone 1 GM/50 ML BAG IV (09:42)
[2023-04-18] MEDS: Miconazole Nitrate 43 GM Bottle 1 APPLIC TOPICAL ×2 (09:43→21:01)
[2023-04-18] MEDS: Menthol/Lanolin/Calamine/Znox 113 GM Tube 1 APPLIC TOPICAL ×4 (09:43→20:51)
--- NOTE | 2023-04-18 09:51 | PCM.PN.HOSP ---
Reason for Visit Reason for Visit: Diagnoses Acute bronchitis due to respiratory syncytial virus (04/16/23) Subjective Subjective Patient seen much more awake and responsive compared to the day prior Objective Data Objective Data Vital Signs: Vital Signs Temp Pulse Resp BP Pulse Ox O2 Del Method O2 Flow Rate 97.6 F L 102 H 18 124/65 H 95 High Flow 6 04/18/23 09:34 04/18/23 09:34 04/18/23 09:34 04/18/23 09:34 04/18/23 09:34 04/18/23 09:34 04/18/23 09:34 FiO2 45 04/18/23 00:34 Oxygen Flow Rate (L/min) 6 Oxygen Delivery Method High Flow Weight: 161.2 kg Body Mass Index (BMI) 57.3 Intake & Output: Intake and Output for Last 24 Hours 04/16/23 04/17/23 04/18/23 23:59 23:59 23:59 Intake Total 1050 / 1050 2513.33 / 2513.33 989.58 / 989.58 Output Total 1150 / 1150 400 / 400 Balance 1050 / 1050 1363.33 / 1363.33 589.58 / 589.58 Lab / Micro Data 04/18/23 05:50 04/18/23 05:50 Labs: Laboratory Results - last 24 hr 04/18/23 05:50: WBC 8.4, RBC 3.41 L, Hgb 9.3 L, Hct 32.2 L, MCV 94.4, MCH 27.3, MCHC 28.9 L, RDW Std Deviation 46.9 H, RDW Coeff of David 13.7, Plt Count 283, MPV 11.0, Immature Gran % (Auto) 4.500 H, Neut % (Auto) 79.0 H, Lymph % (Auto) 10.2 L, [place] % (Auto) 5.8, Eos % (Auto) 0.0, Baso % (Auto) 0.5, Absolute Neuts (auto) 6.7, Absolute Lymphs (auto) 0.86, Nucleated RBC % 0, Sodium 141, Potassium 4.3, Chloride 102, Carbon Dioxide 34.0 H, Anion Gap 5, BUN 45 H, Creatinine 3.63 H, Estim Creat Clear Calc 25.71, Est GFR (MDRD) Af Amer 16 L, Est GFR (MDRD) Non-Af 14 L, BUN/Creatinine Ratio 12.4, Glucose 115 H, Calcium 8.6, Phosphorus 5.7 H, Magnesium 1.8 Micro: Microbiology 04/16/23 15:15 Urine Catheter - Catheter Urine Culture - Preliminary Alpha hemolytic organism Gram positive organism GPC Poss Enterococcus sp Gram negative marco antonio 04/16/23 15:15 Urine, Clean Catch Legionella Antigen - Final 04/16/23 15:15 Urine, Clean Catch Streptococcus pneumoniae Antigen (M - Final 04/16/23 13:37 Mucosa - Nose SARS-CoV-2, Influenza & RSV (PCR) - Final RSV Radiography Diagnostic Testing: Radiology Impression Renal Ultrasound 04/17/23 11:52 IMPRESSION: Incomplete evaluation of the right kidney. No evidence of hydronephrosis. Electronically Signed: Costa Johnson MD at 16:58 EST Reading Location ID and State: [address] [place] [address] Tel , Service support , Rhythm Strip Rhythm Strip: Sinus Rhythm Rate: 96 Ectopy: PVC(s) Physical Exam Narrative GENERAL: Awake and interactive HEENT: Atraumatic; normocephalic EYES; Anicteric, Normal Conjunctiva NECK; supple, normal thyroid, RESPIRATORY: Diminished to auscultation CARDIOVASCULAR: Regular S1 S2, GI: soft, normoactive bowel sounds, : No Renal angle tenderness; EXTREMITIES: No edema, no clubbing, MUSCULOSKELETAL: no muscle wasting NEURO: Awake; no lateralizing signs. SKIN: No Rash PSYCH; awake and interactive Assessment & Plan Assessment/Plan (1) RSV bronchitis: PLAN: Plan Patient is a 62-year-old lady with multiple comorbidities including obesity with BMI of 57 currently residing at an extended care facility who was brought in with altered mental status. An assessment of acute encephalopathy secondary to RSV bronchitis made admitted to a monitored bed for subsequent management 1. Acute metabolic encephalopathy ? Due to combination of RSV bronchitis as well as acute cystitis. Admitted to a monitored bed for treatment of underlying clinical etiology 04/18/2023 level of sensorium improving 2. Acute RSV infection with bronchitis ? Admitted to regular nursing floor managed with bronchodilator treatment regimen as well as supplemental oxygen ? 04/18/2023 patient remains on supplemental oxygen 3. Acute cystitis ? Patient urine cultures grew a bunch of organism with no significant colony count 4. Acute on chronic hypoxic respiratory failure ? Due to combination of sleep apnea and obesity hypoventilation syndrome as well as patient RSV bronchitis. Managed with supplemental oxygen titrated to keep saturation greater than 90 5. Acute kidney injury ? Patient baseline creatinine from 03/08/2023 was 0.99, creatinine on admission was 5.65 admitted to monitored bed managed with IV fluids, ordered renal ultrasound, avoid nephrotoxic medication, response to therapy being monitored with daily BMP ?04/18/2023; creatinine down to 1.63 will continue hydration with subsequent monitoring of electrolytes 5. Essential hypertension ? Patient is on losartan held in view of impaired kidney function 6.? Chronic hypoxic respiratory failure ? Due to obstructive sleep apnea as well as obesity hypoventilation syndrome patient is on baseline oxygen 7.? Obesity hypoventilation syndrome ? Consistent use of BiPAP encouraged 8.? COPD ? Currently not in exacerbation aerosol treatments as needed 9.?Class III obesity with BMI of BMI of 57 ? Complicating care 10. GERD ? On PPI 11. Depression ? Patient is on SSRI 12. Anemia - Secondary to chronic disorder monitoring H&H and transfuse if patient becomes symptomatic or hemoglobin falls below 7 13. Chronic congestive heart failure with preserved ejection fraction ? Echo from 05/05/2022 demonstrated EF of 55 to 60%. Patient is on Aldactone held in view of her impaired kidney function 14. DVT prophylaxis ? SC heparin Time spent in the patient's overall evaluation,decision-making process, review of diagnostic data, adjustment of management, discussion with other providers, nursing nursing and ancillary staff involved in patient's care documentation, 50 Minutes Charges/Coding Visit Charges Inpatient E&M: 36810 [facility] Hosp L3
[2023-04-18] MEDS: Albuterol 2.5 MG/3 ML VIAL.NEB. INHALATION (11:17)
[2023-04-18 14:17] LABS: Pathologist Review Reviewed
--- NOTE | 2023-04-18 20:45 | NURSING ---
emergency documentation in effect now 04/18/20232044
[2023-04-18] MEDS: Atorvastatin Calcium 20 MG Tablet PO (20:50)
[2023-04-18] MEDS: Acetaminophen 325 MG Tablet 650 MG PO (20:57)
[2023-04-19 02:55] VITALS: BMI 57.2
[2023-04-19 03:36] VITALS: BP 141/59; PULSE 98; RESP 18; TEMP 36.5; O2SAT 96
[2023-04-19] MEDS: Loperamide 2 MG Capsule PO (03:41)
[2023-04-19] MEDS: 0.9% Normal Saline (1000mL) 1,000 ML 125 ML IV (03:42)
[2023-04-19 07:09] LABS: Absolute Lymphocyte Count 0.84 X10^3/uL (0.83-4.51); Absolute Neutrophil Count 4.7 X10^3/uL (2.0-7.7); Basophil# 0.02 X10^3/uL; Basophil% 0.3 % (0-1); Hematocrit 32.2 % (37-47); Hemoglobin 9.1 g/dL (12.0-15.0); Lymphocyte # 0.84 X10^3/ul (0.83-4.51); Lymphocyte % 13.1 % (19-41); Mean Corp Hgb Conc 28.3 g/dL (32-36); Mean Corpuscular Hgb 26.6 pg (27.0-32.0); Mean Corpuscular Volume 94.2 fL (81-99); Monocyte# 0.62 X10^3/uL; Monocyte% 9.7 % (0-10); NRBC Flagged by Analyzer 0 % (0-5); Neutrophil # 4.72 X10^3/uL (2.7-7.7); Neutrophil % 73.6 % (47-70); Platelet Count 280 K/mm3 (150-450); RBC Distribution Width CV 13.3 % (11.6-14.6); Red Blood Count 3.42 M/mm3 (4.2-5.4); White Blood Count 6.4 K/mm3 (4.4-11.0)
[2023-04-19 07:39] LABS: Anion Gap 5 (5-15); BUN 39 mg/dL (7-18); BUN/Creat Ratio 17.7 RATIO (10-20); Calcium,Total 9.2 mg/dL (8.5-10.1); Chloride 105 mmol/L (98-107); EST Glomerular Filtration Rate 24 mL/min (>60); Est Glom Filt Rate - Afr Amer 29 mL/min (>60); Estimated Creatinine Clearance 42.38 ml/min; Glucose 95 mg/dL (74-106); Sodium Level 144 mmol/L (136-145)
--- NOTE | 2023-04-19 09:25 | PN.HOSP_ITS ---
Reason for Visit Reason for Visit: Diagnoses Acute bronchitis due to respiratory syncytial virus (04/16/23) Subjective Subjective Patient seen, level of sensorium continues to improve. Creatinine down to 2 point will continue with current treatment with IV fluids Objective Data Objective Data Vital Signs: Vital Signs Temp Pulse Resp BP Pulse Ox O2 Del Method O2 Flow Rate 97.7 F L 98 18 141/59 H 96 High Flow 4 04/19/23 03:36 04/19/23 03:36 04/19/23 03:36 04/19/23 03:36 04/19/23 03:36 04/19/23 03:43 04/19/23 03:43 FiO2 45 04/18/23 00:34 Oxygen Flow Rate (L/min) 4 Oxygen Delivery Method High Flow Weight: 161 kg Body Mass Index (BMI) 57.2 Intake & Output: Intake and Output for Last 24 Hours 04/17/23 04/18/23 04/19/23 23:59 23:59 23:59 Intake Total 2513.33 / 2513.33 3310.83 / 3310.83 1000 / 1000 Output Total 1150 / 1150 1600 / 1600 Balance 1363.33 / 1363.33 1710.83 / 1710.83 1000 / 1000 Lab / Micro Data 04/19/23 06:35 04/19/23 06:35 Labs: Laboratory Results - last 24 hr 04/17/23 08:08: Diff Path Review Reviewed 04/19/23 06:35: WBC 6.4, RBC 3.42 L, Hgb 9.1 L, Hct 32.2 L, MCV 94.2, MCH 26.6 L , MCHC 28.3 L, RDW Std Deviation 46.0 H, RDW Coeff of David 13.3, Plt Count 280, MPV 11.0, Immature Gran % (Auto) 3.300 H, Neut % (Auto) 73.6 H, Lymph % (Auto) 13.1 L, [place] % (Auto) 9.7, Eos % (Auto) 0.0, Baso % (Auto) 0.3, Absolute Neuts (auto) 4.7, Absolute Lymphs (auto) 0.84, Nucleated RBC % 0, Sodium 144, Potassium 4.0, Chloride 105, Carbon Dioxide 34.0 H, Anion Gap 5, BUN 39 H, Creatinine 2.20 H, Estim Creat Clear Calc 42.38, Est GFR (MDRD) Af Amer 29 L, Est GFR (MDRD) Non-Af 24 L, BUN/Creatinine Ratio 17.7, Glucose 95, Calcium 9.2 Micro: Microbiology 04/16/23 14:19 Blood Culture (Wb) - Other Blood Culture - Preliminary No growth in 48 hours. 04/16/23 13:40 Blood Culture (Wb) - Arm Left Blood Culture - Preliminary No growth in 48 hours. 04/16/23 15:15 Urine Catheter - Catheter Urine Culture - Preliminary Alpha hemolytic organism Gram positive organism GPC Poss Enterococcus sp Gram negative marco antonio 04/16/23 15:15 Urine, Clean Catch Legionella Antigen - Final 04/16/23 15:15 Urine, Clean Catch Streptococcus pneumoniae Antigen (M - Final 04/16/23 13:37 Mucosa - Nose SARS-CoV-2, Influenza & RSV (PCR) - Final RSV Rhythm Strip Rhythm Strip: Sinus Rhythm Rate: 96 Ectopy: PVC(s) Physical Exam Narrative GENERAL: Awake and interactive HEENT: Atraumatic; normocephalic EYES; Anicteric, Normal Conjunctiva NECK; supple, normal thyroid, RESPIRATORY: Diminished to auscultation CARDIOVASCULAR: Regular S1 S2, GI: soft, normoactive bowel sounds, : No Renal angle tenderness; EXTREMITIES: No edema, no clubbing, MUSCULOSKELETAL: no muscle wasting NEURO: Awake; no lateralizing signs. SKIN: No Rash PSYCH; awake and interactive Assessment & Plan Assessment/Plan (1) RSV bronchitis: PLAN: Plan Patient is a 62-year-old lady with multiple comorbidities including obesity with BMI of 57 currently residing at an extended care facility who was brought in with altered mental status. An assessment of acute encephalopathy secondary to RSV bronchitis made admitted to a monitored bed for subsequent management 1. Acute metabolic encephalopathy ? Due to combination of RSV bronchitis as well as acute cystitis. Admitted to a monitored bed for treatment of underlying clinical etiology 04/18/2023 level of sensorium improving 2. Acute RSV infection with bronchitis ? Admitted to regular nursing floor managed with bronchodilator treatment regimen as well as supplemental oxygen ? 04/18/2023 patient remains on supplemental oxygen 3. Acute cystitis ? Patient urine cultures grew a bunch of organism with no significant colony count 4. Acute on chronic hypoxic respiratory failure ? Due to combination of sleep apnea and obesity hypoventilation syndrome as well as patient RSV bronchitis. Managed with supplemental oxygen titrated to keep saturation greater than 90 5. Acute kidney injury ? Patient baseline creatinine from 03/08/2023 was 0.99, creatinine on admission was 5.65 admitted to monitored bed managed with IV fluids, ordered renal ultrasound, avoid nephrotoxic medication, response to therapy being monitored with daily BMP ?04/18/2023; creatinine down to 3.63 will continue hydration with subsequent monitoring of electrolytes ? 04/19/2023; creatinine down to 2.2 5. Essential hypertension ? Patient is on losartan held in view of impaired kidney function 6.? Chronic hypoxic respiratory failure ? Due to obstructive sleep apnea as well as obesity hypoventilation syndrome p atient is on baseline oxygen 7.? Obesity hypoventilation syndrome ? Consistent use of BiPAP encouraged 8.? COPD ? Currently not in exacerbation aerosol treatments as needed 9.?Class III obesity with BMI of BMI of 57 ? Complicating care 10. GERD ? On PPI 11. Depression ? Patient is on SSRI 12. Anemia - Secondary to chronic disorder monitoring H&H and transfuse if patient becomes symptomatic or hemoglobin falls below 7 13. Chronic congestive heart failure with preserved ejection fraction ? Echo from 05/05/2022 demonstrated EF of 55 to 60%. Patient is on Aldactone held in view of her impaired kidney function 14. DVT prophylaxis ? SC heparin Time spent in the patient's overall evaluation,decision-making process, review of diagnostic data, adjustment of management, discussion with other providers, nursing nursing and ancillary staff involved in patient's care documentation, 35 Minutes Charges/Coding Visit Charges Inpatient E&M: 51988 Subs Hosp L2
[2023-04-19 09:30] VITALS: BP 137/67; PULSE 98; RESP 17; TEMP 36.8; O2SAT 97
[2023-04-19] MEDS: 0.9% Saline Lock 10 ML Syringe IV ×2 (09:57→13:18)
[2023-04-19] MEDS: Ceftriaxone 1 GM/50 ML BAG IV (09:58)
[2023-04-19] MEDS: 0.45% Normal Saline 1,000 ML 150 ML IV ×3 (09:59→23:36)
[2023-04-19] MEDS: Pantoprazole Sodium 20 MG Tablet PO (10:00)
[2023-04-19] MEDS: Heparin Injection (Vial) 5,000 UNIT/ML VIAL 5000 UNIT SC ×2 (10:00→20:36)
[2023-04-19] MEDS: Dicyclomine 10 MG Capsule PO ×4 (10:00→20:37)
[2023-04-19] MEDS: Montelukast 10 MG Tablet PO (10:00)
[2023-04-19] MEDS: Miconazole Nitrate 43 GM Bottle 1 APPLIC TOPICAL ×2 (10:01→20:37)
[2023-04-19] MEDS: Menthol/Lanolin/Calamine/Znox 113 GM Tube 1 APPLIC TOPICAL ×4 (10:01→20:37)
[2023-04-19 13:05] VITALS: O2SAT 93
[2023-04-19 15:30] VITALS: BP 139/68; PULSE 92; RESP 18; TEMP 36.8; O2SAT 97
[2023-04-19 15:59] LABS: Anion Gap 4 (5-15); BUN 37 mg/dL (7-18); Calcium,Total 8.8 mg/dL (8.5-10.1); Chloride 106 mmol/L (98-107); Creatinine, Serum 1.85 mg/dL (0.55-1.02); EST Glomerular Filtration Rate 29 mL/min (>60); Est Glom Filt Rate - Afr Amer 36 mL/min (>60); Glucose 116 mg/dL (74-106); Potassium 4.5 mmol/L (3.5-5.1); Sodium Level 144 mmol/L (136-145)
[2023-04-19 20:35] VITALS: BP 130/61; PULSE 95; RESP 18; TEMP 36.7; O2SAT 98
[2023-04-19] MEDS: Atorvastatin Calcium 20 MG Tablet PO (20:37)
[2023-04-19] MEDS: Acetaminophen 325 MG Tablet 650 MG PO (23:05)
[2023-04-19] MEDS: guaiFENesin 10 ML UDC (200MG/10ML) 20 ML PO (23:05)
[2023-04-19 23:44] VITALS: BP 131/71; PULSE 94; RESP 18; TEMP 36.8; O2SAT 97
[2023-04-20 03:04] VITALS: BMI 57.6
[2023-04-20] MEDS: Loperamide 2 MG Capsule PO (03:59)
[2023-04-20 04:01] VITALS: BP 146/75; PULSE 92; RESP 18; TEMP 36.6; O2SAT 100
[2023-04-20 04:08] VITALS: O2SAT 96
--- NOTE | 2023-04-20 05:30 | NURSING ---
pt o2 was weaned down to 2L and saturation was in 99%, but pt requested to remain on 4L for comfort.
[2023-04-20 05:35] VITALS: O2SAT 97
[2023-04-20 06:56] LABS: Absolute Neutrophil Count 4.7 X10^3/uL (2.0-7.7); Basophil# 0.03 X10^3/uL; Basophil% 0.4 % (0-1); Hematocrit 32.9 % (37-47); Hemoglobin 9.4 g/dL (12.0-15.0); Lymphocyte % 16.4 % (19-41); Mean Corp Hgb Conc 28.6 g/dL (32-36); Mean Corpuscular Hgb 26.9 pg (27.0-32.0); Mean Platelet Vol. 10.7 fl (6.2-12.0); Monocyte# 0.68 X10^3/uL; Monocyte% 10.1 % (0-10); NRBC Flagged by Analyzer 0 % (0-5); Neutrophil # 4.67 X10^3/uL (2.7-7.7); Neutrophil % 69.7 % (47-70); Platelet Count 276 K/mm3 (150-450); RBC Distribution Width CV 13.4 % (11.6-14.6); RBC Distribution Width SD 45.7 fl (35.1-43.9); White Blood Count 6.7 K/mm3 (4.4-11.0)
[2023-04-20 07:33] LABS: Anion Gap 4 (5-15); BUN 34 mg/dL (7-18); BUN/Creat Ratio 23.3 RATIO (10-20); Calcium,Total 9.2 mg/dL (8.5-10.1); Chloride 103 mmol/L (98-107); Creatinine, Serum 1.46 mg/dL (0.55-1.02); EST Glomerular Filtration Rate 39 mL/min (>60); Est Glom Filt Rate - Afr Amer 47 mL/min (>60); Glucose 88 mg/dL (74-106); Potassium 4.1 mmol/L (3.5-5.1); Sodium Level 142 mmol/L (136-145)
[2023-04-20] MEDS: 0.9% Normal Saline (1000mL) 1,000 ML 125 ML IV (07:52)
[2023-04-20 07:58] VITALS: O2SAT 94
--- NOTE | 2023-04-20 09:31 | PCM.TXEXTCAR ---
Diet Diet Order/Speech Therapy: 04/16/23 18:18 Diet: Cardiac - Heart Healthy Food consistency:: Pureed Liquid Consistency:: Regular/Thin Is pt able to select menu?: No Diet Comments: TOTAL FEED/MAX A, FEED ONLY WHEN ALERT, MEDS CRUSHED IN . Wound(s) right abdominal fold: Wound Type: moisture related open area Dressing Change: AntiMicrobial (Aquacel AG, etc) Therapies Physical Therapy: Eval and Treat Occupational Therapy: Eval and Treat Problem/Diagnosis (1) RSV bronchitis: Status: Acute Code(s): J20.5 - Acute bronchitis due to respiratory syncytial virus Plan Patient is a 62-year-old lady with multiple comorbidities including obesity with BMI of 57 currently residing at an extended care facility who was brought in with altered mental status. An assessment of acute encephalopathy secondary to RSV bronchitis made admitted to a monitored bed for subsequent management 1. Acute metabolic encephalopathy ? Due to combination of RSV bronchitis as well as acute cystitis. Admitted to a monitored bed for treatment of underlying clinical etiology 04/18/2023 level of sensorium improving 2. Acute RSV infection with bronchitis ? Admitted to regular nursing floor managed with bronchodilator treatment regimen as well as supplemental oxygen ? 04/18/2023 patient remains on supplemental oxygen 3. Acute cystitis ? Patient urine cultures grew a bunch of organism with no significant colony count 4. Acute on chronic hypoxic respiratory failure ? Due to combination of sleep apnea and obesity hypoventilation syndrome as well as patient RSV bronchitis. Managed with supplemental oxygen titrated to keep saturation greater than 90 5. Acute kidney injury ? Patient baseline creatinine from 03/08/2023 was 0.99, creatinine on admission was 5.65 admitted to monitored bed managed with IV fluids, ordered renal ultrasound, avoid nephrotoxic medication, response to therapy being monitored with daily BMP ?04/18/2023; creatinine down to 3.63 will continue hydration with subsequent monitoring of electrolytes ? 04/19/2023; creatinine down to 2.2 5. Essential hypertension ? Patient is on losartan held in view of impaired kidney function 6.? Chronic hypoxic respiratory failure ? Due to obstructive sleep apnea as well as obesity hypoventilation syndrome patient is on baseline oxygen 7.? Obesity hypoventilation syndrome ? Consistent use of BiPAP encouraged 8.? COPD ? Currently not in exacerbation aerosol treatments as needed 9.?Class III obesity with BMI of BMI of 57 ? Complicating care 10. GERD ? On PPI 11. Depression ? Patient is on SSRI 12. Anemia - Secondary to chronic disorder monitoring H&H and transfuse if patient becomes symptomatic or hemoglobin falls below 7 13. Chronic congestive heart failure with preserved ejection fraction ? Echo from 05/05/2022 demonstrated EF of 55 to 60%. Patient is on Aldactone held in view of her impaired kidney function 14. DVT prophylaxis ? SC heparin Time spent in the patient's overall evaluation,decision-making process, review of diagnostic data, adjustment of management, discussion with other providers, nursing nursing and ancillary staff involved in patient's care documentation, 35 Minutes Allergies/Procedures Done in Hospital Allergies aspirin Allergy (Verified 09/08/22 00:15) Other black pepper [pepper] Allergy (Verified 09/08/22 00:15) Other coconut Allergy (Verified 09/08/22 00:15) Other codeine Allergy (Verified 09/08/22 00:15) Other ibuprofen Allergy (Verified 09/08/22 00:15) Other Influenza Virus Vaccines Allergy (Verified 09/08/22 00:15) Other Penicillins Allergy (Verified 09/08/22 00:15) Anaphylaxis rice Allergy (Verified 09/08/22 00:15) Other tetanus and diphtheria toxoids Allergy (Verified 09/08/22 00:15) Other Tetanus Vaccines and Toxoid Allergy (Verified 09/08/22 00:15) Other Type of Care/Length of Stay Estimated LOS: More Than 30 Days Type of Care Needed: Intermediate Rehab Potential: Fair Prognosis: Fair Additional Orders/Day of Discharge Day of Discharge: 04/20/23 Dietary and Speech Recommendations Dietitian Recommendations/Changes: continue cardiac diet as tolerated Discharge Plan Admission Admit Date/Time: 04/16/23 16:46 Attending Provider: Ab Pascual Primary Care Provider: Sepideh Patterson Consulting Providers: Elizabeth Choe Discharge Orders/Prescriptions Prescriptions: New acetaminophen 325 mg Tablet 650 mg PO Q4H PRN PRN (Reason: Fever, pain 1-01/16) Qty: 0 0RF melatonin 3 mg Tablet 3 mg PO QHS PRN PRN (Reason: Insomnia) Qty: 0 0RF alum-mag hydroxide-simeth [Mag-Al Plus Extra Strength] 400-400-40 mg/5 mL Suspension 30 ml PO Q6H PRN PRN (Reason: Gastric Burning) Qty: 0 0RF menthol-zinc oxide [Calmoseptine] 0.44-20.6 % Ointment 1 applic topical 4X/DAY Qty: 0 0RF Protocol: *Topical Application Instructions APPLICATION INSTRUCTIONS: apply to affected region Continued losartan 50 mg Tablet 50 mg PO DAILY atorvastatin 20 mg Tablet 20 mg PO QHS sertraline [Zoloft] 100 mg Tablet 100 mg PO QHS Rx Instructions: TAKE ONE 50MG AND ONE 100MG TABLET TOGETHER ONCE DAILY FOR A TOTAL DAILY DOSE OF 150MG. famotidine 20 mg Tablet 20 mg PO QHS amitriptyline 25 mg Tablet 25 mg PO QODAY montelukast 10 mg Tablet 10 mg PO DAILY fluticasone propionate 50 mcg/actuation [place],Suspension 2 spray INTRANASAL BID PRN (Reason: NASAL CONGESTION) omeprazole 20 mg Tablet,Delayed Release (Dr/Ec) 20 mg PO DAILY roflumilast [Daliresp] 500 mcg Tablet 500 mcg PO DAILY dicyclomine 10 mg Capsule 10 mg PO 4X/DAY Qty: 1 0RF albuterol sulfate 90 mcg/actuation Hfa Aerosol Inhaler 2 puff INHALATION Q2H PRN (Reason: SOB) prednisone 10 mg tablet 10 mg PO DAILY cholecalciferol (vitamin D3) 50 mcg (2,000 unit) tablet 50 mcg PO DAILY sertraline 50 mg tablet 50 mg PO DAILY Rx Instructions: TAKE ONE 50MG AND ONE 100MG TABLET TOGETHER ONCE DAILY FOR A TOTAL DAILY DOSE OF 150MG. loperamide [Imodium A-D] 2 mg capsule 2 mg PO Q8H PRN (Reason: DIARRHEA ) Discontinued cyclobenzaprine 10 mg Tablet 10 mg PO TID furosemide 40 mg tablet 40 mg PO DAILY Qty: 30 0RF spironolactone 25 mg tablet 12.5 mg PO DAILY Referrals / Follow Up: Sepideh Patterson MD [Primary Care Provider] - Disposition Discharge Orders: Discharge Patient (Routine); Ordered 04/20/23 Ordered By: Dr. Ab Pascual
--- NOTE | 2023-04-20 09:35 | DS.PCM_ITS ---
Providers Date of Admission: 04/16/23 Date of Discharge: 04/20/23 Primary Care Physician: Dr. Sepideh Patterson MD Consultations 04/17/23 04:38 Consult: Onc/Wound/chemical lab technician Routine Comment: Reason for Consult:: right groin wound Reason For Visit: ENCEPHALOPATHY, ACUTE ON CHRONIC HYPOXIA, RSV, ZONIA Diagnosis Discharge Diagnosis (1) RSV bronchitis: Status: Acute Code(s): J20.5 - Acute bronchitis due to respiratory syncytial virus Plan Patient is a 62-year-old lady with multiple comorbidities including obesity with BMI of 57 currently residing at an extended care facility who was brought in with altered mental status. An assessment of acute encephalopathy secondary to RSV bronchitis made admitted to a monitored bed for subsequent management 1. Acute metabolic encephalopathy ? Due to combination of RSV bronchitis as well as acute cystitis. Admitted to a monitored bed for treatment of underlying clinical etiology 04/18/2023 level of sensorium improving 2. Acute RSV infection with bronchitis ? Admitted to regular nursing floor managed with bronchodilator treatment regimen as well as supplemental oxygen ? 04/18/2023 patient remains on supplemental oxygen 3. Acute cystitis ? Patient urine cultures grew a bunch of organism with no significant colony count ? Patient not discharged with any antibiotic therapy 4. Acute on chronic hypoxic respiratory failure ? Due to combination of sleep apnea and obesity hypoventilation syndrome as well as patient RSV bronchitis. Managed with supplemental oxygen titrated to keep saturation greater than 90 5. Acute kidney injury ? Patient baseline creatinine from 03/08/2023 was 0.99, creatinine on admission was 5.65 admitted to monitored bed managed with IV fluids, ordered renal ultrasound, avoid nephrotoxic medication, response to therapy being monitored with daily BMP ?04/18/2023; creatinine down to 3.63 will continue hydration with subsequent monitoring of electrolytes ? 04/19/2023; creatinine down to 2.2 ? 04/20/2023 creatinine down to 1.4 5. Essential hypertension ? Patient is on losartan held in view of impaired kidney function 6.? Chronic hypoxic respiratory failure ? Due to obstructive sleep apnea as well as obesity hypoventilation syndrome patient is on baseline oxygen 7.? Obesity hypoventilation syndrome ? Consistent use of BiPAP encouraged 8.? COPD ? Currently not in exacerbation aerosol treatments as needed 9.?Class III obesity with BMI of BMI of 57 ? Complicating care 10. GERD ? On PPI 11. Depression ? Patient is on SSRI 12. Anemia - Secondary to chronic disorder monitoring H&H and transfuse if patient becomes symptomatic or hemoglobin falls below 7 13. Chronic congestive heart failure with preserved ejection fraction ? Echo from 05/05/2022 demonstrated EF of 55 to 60%. Patient is on Aldactone held in view of her impaired kidney function 14. DVT prophylaxis ? SC heparin Time spent in the patient's overall evaluation,decision-making process, review o f diagnostic data, adjustment of management, discussion with other providers, nursing nursing and ancillary staff involved in patient's care documentation, 35 Minutes Medications at Discharge Home Medications amitriptyline 25 mg tablet 25 mg PO QODAY DEPRESSION 05/03/22 atorvastatin 20 mg tablet 20 mg PO QHS CHOLESTEROL 05/03/22 famotidine 20 mg tablet 20 mg PO QHS GERD 05/03/22 fluticasone propionate 50 mcg/actuation nasal spray,suspension 2 spray intranasal BID PRN NASAL CONGESTION 05/03/22 losartan 50 mg tablet 50 mg PO DAILY BLOOD PRESSURE 05/03/22 montelukast 10 mg tablet 10 mg PO DAILY ALLERGIES 05/03/22 omeprazole 20 mg tablet,delayed release 20 mg PO DAILY GERD 05/03/22 roflumilast 500 mcg tablet (Daliresp) 500 mcg PO DAILY ASTHMA 05/03/22 sertraline 100 mg tablet (Zoloft) 100 mg PO QHS DEPRESSION 05/03/22 dicyclomine 10 mg capsule 10 mg PO 4X/DAY IRRITABLE BOWELS #1 cap 05/05/22 albuterol sulfate 90 mcg/actuation aerosol inhaler 2 puff inhalation Q2H PRN SOB 09/08/22 cholecalciferol (vitamin D3) 50 mcg (2,000 unit) tablet 50 mcg PO DAILY SUPPLEMENT 04/16/23 loperamide 2 mg capsule (Imodium A-D) 2 mg PO Q8H PRN DIARRHEA 04/16/23 prednisone 10 mg tablet 10 mg PO DAILY COPD 04/16/23 sertraline 50 mg tablet 50 mg PO DAILY DEPRESSION 04/16/23 acetaminophen 325 mg tablet 650 mg (2 x 325 mg) PO Q4H PRN PRN Fever, pain 1- 01/16 #0 tabs 04/20/23 aluminum-mag hydroxide-simethicone 400 mg-400 mg-40 mg/5 mL oral susp (Mag-Al Plus Extra Strength) 30 ml PO Q6H PRN PRN Gastric Burning #0 mL 04/20/23 melatonin 3 mg tablet 3 mg PO QHS PRN PRN Insomnia #0 tabs 04/20/23 menthol 0.44 %-zinc oxide 20.6 % topical ointment (Calmoseptine) 1 applic topical 4X/DAY #0 grams 04/20/23 Physical Exam Narrative GENERAL: Awake and interactive HEENT: Atraumatic; normocephalic EYES; Anicteric, Normal Conjunctiva NECK; supple, normal thyroid, RESPIRATORY: Diminished to auscultation CARDIOVASCULAR: Regular S1 S2, GI: soft, normoactive bowel sounds, : No Renal angle tenderness; EXTREMITIES: No edema, no clubbing, MUSCULOSKELETAL: no muscle wasting NEURO: Awake; no lateralizing signs. SKIN: No Rash PSYCH; awake and interactive Weight / BMI Weight Weight: 161.9 kg Body Mass Index (BMI) 57.6 ABG / Lab / Microbiology Data 04/20/23 06:10 04/20/23 06:10 Laboratory: Laboratory Results - last 24 hr 04/19/23 14:50: Sodium 144, Potassium 4.5, Chloride 106, Carbon Dioxide 34.0 H, Anion Gap 4 L, BUN 37 H, Creatinine 1.85 H, Estim Creat Clear Calc 50.40, Est G FR (MDRD) Af Amer 36 L, Est GFR (MDRD) Non-Af 29 L, BUN/Creatinine Ratio 20.0, Glucose 116 H, Calcium 8.8 04/20/23 06:10: WBC 6.7, RBC 3.50 L, Hgb 9.4 L, Hct 32.9 L, MCV 94.0, MCH 26.9 L , MCHC 28.6 L, RDW Std Deviation 45.7 H, RDW Coeff of David 13.4, Plt Count 276, MPV 10.7, Immature Gran % (Auto) 3.400 H, Neut % (Auto) 69.7, Lymph % (Auto) 16.4 L, Heard % (Auto) 10.1 H, Eos % (Auto) 0.0, Baso % (Auto) 0.4, Absolute Neuts (auto) 4.7, Absolute Lymphs (auto) 1.10, Nucleated RBC % 0, Sodium 142, Potassium 4.1, Chloride 103, Carbon Dioxide 35.0 H, Anion Gap 4 L, BUN 34 H, Creatinine 1.46 H, Estim Creat Clear Calc 64.10, Est GFR (MDRD) Af Amer 47 L, Est GFR (MDRD) Non-Af 39 L, BUN/Creatinine Ratio 23.3 H, Glucose 88, Calcium 9.2 Microbiology: Microbiology 04/16/23 15:15 Urine Catheter - Catheter Urine Culture - Final Presumptive E. coli Presumptive E. coli#2 Lactobacillus gasseri Staphylococcus haemolyticus Enterococcus faecalis 04/16/23 14:19 Blood Culture (Wb) - Other Blood Culture - Preliminary No growth in 48 hours. 04/16/23 13:40 Blood Culture (Wb) - Arm Left Blood Culture - Preliminary No growth in 48 hours. 04/16/23 15:15 Urine, Clean Catch Legionella Antigen - Final 04/16/23 15:15 Urine, Clean Catch Streptococcus pneumoniae Antigen (M - Final 04/16/23 13:37 Mucosa - Nose SARS-CoV-2, Influenza & RSV (PCR) - Final RSV D/C Instructions Discharge Diet: No restrictions Discharge Activity: Return to Normal Activity Call your doctor if you observe: Fever of 101 or Higher, Shortness of breath, Fainting spells and Chest pain Meaningful Use Info Meaningful Use Diagnoses (Choose all that apply): None applicable Discharge Plan Admission Admit Date/Time: 04/16/23 16:46 Attending Provider: Ab Pascual Primary Care Provider: Sepideh Patterson Consulting Providers: Elizabeth Choe Discharge Orders/Prescriptions Prescriptions: New acetaminophen 325 mg Tablet 650 mg PO Q4H PRN PRN (Reason: Fever, pain 1-10/10) Qty: 0 0RF melatonin 3 mg Tablet 3 mg PO QHS PRN PRN (Reason: Insomnia) Qty: 0 0RF alum-mag hydroxide-simeth [Mag-Al Plus Extra Strength] 400-400-40 mg/5 mL Suspension 30 ml PO Q6H PRN PRN (Reason: Gastric Burning) Qty: 0 0RF menthol-zinc oxide [Calmoseptine] 0.44-20.6 % Ointment 1 applic topical 4X/DAY Qty: 0 0RF Protocol: *Topical Application Instructions APPLICATION INSTRUCTIONS: apply to affected region Continued losartan 50 mg Tablet 50 mg PO DAILY atorvastatin 20 mg Tablet 20 mg PO QHS sertraline [Zoloft] 100 mg Tablet 100 mg PO QHS Rx Instructions: TAKE ONE 50MG AND ONE 100MG TABLET TOGETHER ONCE DAILY FOR A TOTAL DAILY DOSE OF 150MG. famotidine 20 mg Tablet 20 mg PO QHS amitriptyline 25 mg Tablet 25 mg PO QODAY montelukast 10 mg Tablet 10 mg PO DAILY fluticasone propionate 50 mcg/actuation [place],Suspension 2 spray INTRANASAL BID PRN (Reason: NASAL CONGESTION) omeprazole 20 mg Tablet,Delayed Release (Dr/Ec) 20 mg PO DAILY roflumilast [Daliresp] 500 mcg Tablet 500 mcg PO DAILY dicyclomine 10 mg Capsule 10 mg PO 4X/DAY Qty: 1 0RF albuterol sulfate 90 mcg/actuation Hfa Aerosol Inhaler 2 puff INHALATION Q2H PRN (Reason: SOB) prednisone 10 mg tablet 10 mg PO DAILY cholecalciferol (vitamin D3) 50 mcg (2,000 unit) tablet 50 mcg PO DAILY sertraline 50 mg tablet 50 mg PO DAILY Rx Instructions: TAKE ONE 50MG AND ONE 100MG TABLET TOGETHER ONCE DAILY FOR A TOTAL DAILY DOSE OF 150MG. loperamide [Imodium A-D] 2 mg capsule 2 mg PO Q8H PRN (Reason: DIARRHEA ) Discontinued cyclobenzaprine 10 mg Tablet 10 mg PO TID furosemide 40 mg tablet 40 mg PO DAILY Qty: 30 0RF spironolactone 25 mg tablet 12.5 mg PO DAILY Referrals / Follow Up: Sepideh Patterson MD [Primary Care Provider] - Disposition Discharge Orders: Discharge Patient (Routine); Ordered 04/20/23 Ordered By: Dr. Ab Pascual Charges/Coding Visit Charges Inpatient E&M: 54653 Subs Hosp L2
--- NOTE | 2023-04-20 09:41 | CASEMGMT ---
Patient will be discharged back to [facility] today. d/c back to [facility] under intermediate level of care. Physicians will transport patient via cot. Sheeba GENAO
--- NOTE | 2023-04-20 09:56 | PHA.DC_ITS ---
Pharmacy [facility] has performed discharge medication reconciliation for this patient. The patient's discharge medication list was reviewed for discrepancies and discrepancies were resolved. Medications at Discharge Home Medications amitriptyline 25 mg tablet 25 mg PO QODAY DEPRESSION 05/03/22 atorvastatin 20 mg tablet 20 mg PO QHS CHOLESTEROL 05/03/22 famotidine 20 mg tablet 20 mg PO QHS GERD 05/03/22 fluticasone propionate 50 mcg/actuation nasal spray,suspension 2 spray intranasal BID PRN NASAL CONGESTION 05/03/22 losartan 50 mg tablet 50 mg PO DAILY BLOOD PRESSURE 05/03/22 montelukast 10 mg tablet 10 mg PO DAILY ALLERGIES 05/03/22 omeprazole 20 mg tablet,delayed release 20 mg PO DAILY GERD 05/03/22 roflumilast 500 mcg tablet (Daliresp) 500 mcg PO DAILY ASTHMA 05/03/22 sertraline 100 mg tablet (Zoloft) 100 mg PO QHS DEPRESSION 05/03/22 dicyclomine 10 mg capsule 10 mg PO 4X/DAY IRRITABLE BOWELS #1 cap 05/05/22 albuterol sulfate 90 mcg/actuation aerosol inhaler 2 puff inhalation Q2H PRN SOB 09/08/22 cholecalciferol (vitamin D3) 50 mcg (2,000 unit) tablet 50 mcg PO DAILY SUPPLEMENT 04/16/23 loperamide 2 mg capsule (Imodium A-D) 2 mg PO Q8H PRN DIARRHEA 04/16/23 prednisone 10 mg tablet 10 mg PO DAILY COPD 04/16/23 sertraline 50 mg tablet 50 mg PO DAILY DEPRESSION 04/16/23 acetaminophen 325 mg tablet 650 mg (2 x 325 mg) PO Q4H PRN PRN Fever, pain 1- 01/16 #0 tabs 04/20/23 aluminum-mag hydroxide-simethicone 400 mg-400 mg-40 mg/5 mL oral susp (Mag-Al Plus Extra Strength) 30 ml PO Q6H PRN PRN Gastric Burning #0 mL 04/20/23 melatonin 3 mg tablet 3 mg PO QHS PRN PRN Insomnia #0 tabs 04/20/23 menthol 0.44 %-zinc oxide 20.6 % topical ointment (Calmoseptine) 1 applic topical 4X/DAY #0 grams 04/20/23
--- NOTE | 2023-04-20 10:04 | CASEMGMT ---
Discharge Planning Discharge orders, signed med list, and transport time sent to [facility] via [facility]. [facility] will transport patient by cot at 11a. Nursing and SW updated. Attempted to updated sig other but was unable to leave message. Payal Li, Discharge Planning Asst.
[2023-04-20] MEDS: Dicyclomine 10 MG Capsule PO (10:50)
[2023-04-20] MEDS: Ceftriaxone 1 GM/50 ML BAG IV (10:50)
[2023-04-20] MEDS: Miconazole Nitrate 43 GM Bottle 1 APPLIC TOPICAL (10:51)
[2023-04-20] MEDS: Menthol/Lanolin/Calamine/Znox 113 GM Tube 1 APPLIC TOPICAL (10:51)
[2023-04-20] MEDS: Montelukast 10 MG Tablet PO (10:52)
[2023-04-20] MEDS: Pantoprazole Sodium 20 MG Tablet PO (10:52)
[2023-04-20] MEDS: Heparin Injection (Vial) 5,000 UNIT/ML VIAL 5000 UNIT SC (10:52)
[2023-04-20 10:59] VITALS: BP 147/71; PULSE 97; RESP 16; TEMP 36.4; O2SAT 99
== END 2023-04-20 11:10 | disposition skilled nursing facility (03) | DRG 202 ==
LOC: ED 16:21 → PCU 17:00
PROVIDERS: Admitting Provider Family Medicine; Emergency Provider Emergency Medicine; PCP Internal Medicine; Visit Provider Internal Medicine
DX: J20.5 Acute bronchitis due to respiratory syncytial virus (principal); J96.21 Acute and chronic respiratory failure with hypoxia; G93.41 Metabolic encephalopathy; E66.2 Morbid (severe) obesity with alveolar hypoventilation; Z68.43 Body mass index [BMI] 50.0-59.9, adult; N17.9 Acute kidney failure, unspecified; J44.0 Chronic obstructive pulmonary disease with (acute) lower respiratory infection; I50.32 Chronic diastolic (congestive) heart failure; J45.901 Unspecified asthma with (acute) exacerbation; N30.00 Acute cystitis without hematuria; D63.8 Anemia in other chronic diseases classified elsewhere; I11.0 Hypertensive heart disease with heart failure; F32.A Depression, unspecified; E78.5 Hyperlipidemia, unspecified; K21.9 Gastro-esophageal reflux disease without esophagitis; F41.9 Anxiety disorder, unspecified; Z99.81 Dependence on supplemental oxygen; Z79.52 Long term (current) use of systemic steroids; Z79.899 Other long term (current) drug therapy; Z86.73 Personal history of transient ischemic attack (TIA), and cerebral infarction without residual deficits; Z87.891 Personal history of nicotine dependence
CPT/HCPCS: 36415; 70450; 71045; 76770; 80048; 80053; 81001; 82803; 83605; 83735; 84100; 84145; 84484; 85025; 87040; 87086; 87088; 87186; 87449; 87631; 92610; 93005; 94002; 94003; 94640; 94762; 97110; 97162; 97530; 97802; 99285; J7030; P9612; A4216

== ENCOUNTER → 2023-04-24 | Outpatient (REF) | payer MEDICARE, MEDICAID, SELFPAY ==
[2023-04-24 10:09] LABS: Hematocrit 34.3 % (37-47); Hemoglobin 9.5 g/dL (12.0-15.0); Mean Corp Hgb Conc 27.7 g/dL (32-36); Mean Corpuscular Hgb 27.1 pg (27.0-32.0); Mean Corpuscular Volume 97.7 fL (81-99); Mean Platelet Vol. 11.8 fl (6.2-12.0); Platelet Count 157 K/mm3 (150-450); RBC Distribution Width CV 13.6 % (11.6-14.6); RBC Distribution Width SD 48.7 fl (35.1-43.9); Red Blood Count 3.51 M/mm3 (4.2-5.4); White Blood Count 9.7 K/mm3 (4.4-11.0)
[2023-04-24 10:43] LABS: Anion Gap 3 (5-15); BUN 9 mg/dL (7-18); BUN/Creat Ratio 16.3 RATIO (10-20); Calcium,Total 8.2 mg/dL (8.5-10.1); Chloride 98 mmol/L (98-107); Creatinine, Serum 0.55 mg/dL (0.55-1.02); EST Glomerular Filtration Rate 119 mL/min (>60); Est Glom Filt Rate - Afr Amer 143 mL/min (>60); Glucose 93 mg/dL (74-106); Magnesium 1.2 mg/dL (1.6-2.6); Potassium 3.2 mmol/L (3.5-5.1); Sodium Level 146 mmol/L (136-145)
== END ==
LOC: OLS.SW 06:10
PROVIDERS: PCP Internal Medicine; Visit Provider Internal Medicine
DX: N17.9 Acute kidney failure, unspecified (principal); D64.9 Anemia, unspecified; M62.81 Muscle weakness (generalized)
CPT/HCPCS: 36415; 80048; 83735; 85027

== ENCOUNTER → 2023-05-01 | Outpatient (REF) | payer MEDICARE, MEDICAID, SELFPAY ==
[2023-05-01 09:16] LABS: Hemoglobin 9.9 g/dL (12.0-15.0); Mean Corp Hgb Conc 28.3 g/dL (32-36); Mean Corpuscular Hgb 26.9 pg (27.0-32.0); Mean Corpuscular Volume 95.1 fL (81-99); Mean Platelet Vol. 12.2 fl (6.2-12.0); Platelet Count 226 K/mm3 (150-450); RBC Distribution Width CV 13.8 % (11.6-14.6); RBC Distribution Width SD 48.6 fl (35.1-43.9); Red Blood Count 3.68 M/mm3 (4.2-5.4)
[2023-05-01 10:14] LABS: Anion Gap 3 (5-15); BUN 19 mg/dL (7-18); BUN/Creat Ratio 20.6 RATIO (10-20); Calcium,Total 10.1 mg/dL (8.5-10.1); Chloride 96 mmol/L (98-107); Creatinine, Serum 0.92 mg/dL (0.55-1.02); EST Glomerular Filtration Rate 66 mL/min (>60); Est Glom Filt Rate - Afr Amer 80 mL/min (>60); Glucose 110 mg/dL (74-106); Potassium 4.3 mmol/L (3.5-5.1); Sodium Level 139 mmol/L (136-145)
== END ==
LOC: OLS.SW 05:00
PROVIDERS: PCP Internal Medicine; Visit Provider Internal Medicine
DX: D64.9 Anemia, unspecified (principal); N17.9 Acute kidney failure, unspecified
CPT/HCPCS: 36415; 80048; 83735; 85027

== ENCOUNTER → 2023-07-17 05:00 | Outpatient (REF) | payer MEDICARE, MEDICAID, SELFPAY ==
[2023-07-17 08:35] LABS: Hematocrit 31.7 % (37-47); Hemoglobin 9.1 g/dL (12.0-15.0); Mean Corp Hgb Conc 28.7 g/dL (32-36); Mean Corpuscular Volume 90.6 fL (81-99); Mean Platelet Vol. 11.4 fl (6.2-12.0); Platelet Count 216 K/mm3 (150-450); RBC Distribution Width CV 13.8 % (11.6-14.6); RBC Distribution Width SD 45.5 fl (35.1-43.9); White Blood Count 8.9 K/mm3 (4.4-11.0)
[2023-07-17 14:01] LABS: Anion Gap 3 (5-15); BUN 21 mg/dL (7-18); BUN/Creat Ratio 25.7 RATIO (10-20); Calcium,Total 10.1 mg/dL (8.5-10.1); Chloride 93 mmol/L (98-107); Creatinine, Serum 0.82 mg/dL (0.55-1.02); EST Glomerular Filtration Rate 76 mL/min (>60); Est Glom Filt Rate - Afr Amer 91 mL/min (>60); Glucose 114 mg/dL (74-106); Potassium 3.4 mmol/L (3.5-5.1); Sodium Level 138 mmol/L (136-145)
== END ==
LOC: OLS.SW 05:00
PROVIDERS: PCP Internal Medicine; Visit Provider Internal Medicine
DX: D64.9 Anemia, unspecified (principal); I10 Essential (primary) hypertension; J44.9 Chronic obstructive pulmonary disease, unspecified; N17.9 Acute kidney failure, unspecified
CPT/HCPCS: 36415; 80048; 85027

== ENCOUNTER → 2023-07-26 04:35 | Outpatient (REF) | payer MEDICARE, MEDICAID, SELFPAY ==
[2023-07-26 10:53] LABS: BUN 22 mg/dL (7-18); BUN/Creat Ratio 36.5 RATIO (10-20); Calcium,Total 10.7 mg/dL (8.5-10.1); Carbon Dioxide > 45.0 mmol/L (21.0-32.0); Chloride 95 mmol/L (98-107); EST Glomerular Filtration Rate 107 mL/min (>60); Est Glom Filt Rate - Afr Amer 130 mL/min (>60); Glucose 108 mg/dL (74-106); Potassium 3.9 mmol/L (3.5-5.1); Sodium Level 142 mmol/L (136-145)
== END ==
LOC: OLS.SW 04:35
PROVIDERS: PCP Internal Medicine; Visit Provider Internal Medicine
DX: J96.11 Chronic respiratory failure with hypoxia (principal)
CPT/HCPCS: 36415; 80048

== ENCOUNTER 2023-07-26 11:58 | Observation (INO) | payer MEDICARE, MEDICAID, SELFPAY ==
[2023-07-26] VITALS (11 sets, daily range): BP systolic 105–143; BP diastolic 59–119; PULSE 84–95; RESP 12–24; TEMP 36.3–36.9; O2SAT 90–98; BMI 57.6; BMI 52.7
--- NOTE | 2023-07-26 12:31 | ED.RN ---
Addendum entered by Cande Rashid 07/26/23 14:07: 78 on CO2 monitor Original Note: CO2 monitor placed
--- NOTE | 2023-07-26 12:35 | EKG12_ITS ---
Test Reason : CHEST PAIN Blood Pressure : / mmHG Vent. Rate : 088 BPM Atrial Rate : 088 BPM P-R Int : 172 ms QRS Dur : 138 ms QT Int : 388 ms P-R-T Axes : 010 -11 021 degrees QTc Int : 469 ms Normal sinus rhythm Right bundle branch block Possible Lateral infarct (cited on or before 03-MAY-2022) Inferior infarct , age undetermined Abnormal ECG Confirmed by DOMINICK VILLAR, AMITA ([id number]), photograph editor GREG GARDNER ([id number]) on 07/27/2023 8:22:18 AM Referred By: MARIANNE/SHAJI Confirmed By:AMITA TAN MD
[2023-07-26 12:56] LABS: Absolute Lymphocyte Count 1.63 X10^3/uL (0.83-4.51); Absolute Neutrophil Count 8.7 X10^3/uL (2.0-7.7); Basophil# 0.03 X10^3/uL; Basophil% 0.3 % (0-1); Eosinophils% 0.9 % (0-5); Hematocrit 36.8 % (37-47); Hemoglobin 10.3 g/dL (12.0-15.0); Lymphocyte # 1.63 X10^3/ul (0.83-4.51); Lymphocyte % 14.3 % (19-41); Mean Corpuscular Volume 92.9 fL (81-99); Mean Platelet Vol. 11.7 fl (6.2-12.0); Monocyte# 0.88 X10^3/uL; Monocyte% 7.7 % (0-10); NRBC Flagged by Analyzer 0 % (0-5); Neutrophil % 76.2 % (47-70); Platelet Count 231 K/mm3 (150-450); RBC Distribution Width CV 13.2 % (11.6-14.6); Red Blood Count 3.96 M/mm3 (4.2-5.4); White Blood Count 11.4 K/mm3 (4.4-11.0)
[2023-07-26 13:15] LABS: Base Excess 20 mmol/L (-2 to +2); Bicarbonate 46.3 mmol/L (22-26); Blood Gas Specimen Type ART; PO2 57 mmHG (75-100); SITE R RADIAL; SO2 83 % (95-99); Total Carbon Dioxide 49 mmol/L; pCO2 93.3 mmHg (35-45)
[2023-07-26 13:16] LABS: Allen Test POS; O2 Delivery Device CANNULA
[2023-07-26 13:19] LABS: BNP,B-Type NATRIURETIC PEPTIDE 26.1 pg/mL (0-100)
[2023-07-26 13:24] LABS: BUN 22 mg/dL (7-18); BUN/Creat Ratio 32.7 RATIO (10-20); Calcium,Total 10.7 mg/dL (8.5-10.1); Carbon Dioxide > 45.0 mmol/L (21.0-32.0); Chloride 95 mmol/L (98-107); Creatinine, Serum 0.67 mg/dL (0.55-1.02); EST Glomerular Filtration Rate 95 mL/min (>60); Est Glom Filt Rate - Afr Amer 114 mL/min (>60); Glucose 133 mg/dL (74-106); Potassium 4.4 mmol/L (3.5-5.1); Sodium Level 141 mmol/L (136-145)
--- NOTE | 2023-07-26 13:43 | EDS_ITS ---
HPI <Marichuy Brown RN - Last Filed: 07/26/23 14:57> History of Present Illness Chief Complaint: Abn Labs Informant: patient Onset/Context/Timing Onset: Today Timing: Continuous Narrative Narrative: Patient is a 62-year-old female with past medical history significant for obesity, chronic respiratory failure, obstructive sleep apnea on CPAP, GERD, heart failure, hypertension, obesity hypoventilation syndrome, TIA and UTI who presents to the ED from long-term for abnormal lab work, specifically increased CO2 greater than 45. Per review report from nursing staff, patient has not been wearing her CPAP and has intermittent episodes of confusion and lethargy. Patient reports her CPAP is broken. She also reports diarrhea x 2 weeks with an emesis today. She denies chest pain, palpitations, shortness of breath. She denies current nausea. She denies recent hospitalizations and recent travel. She denies fever and chills. Prior similar symptoms: Yes Recent Illness/Hospitalization: No PFSH <Marichuy Brown RN - Last Filed: 07/26/23 14:57> PFS Medical History Anemia Anxiety Chronic anemia Chronic pain Chronic respiratory failure with hypoxia COPD (chronic obstructive pulmonary disease) Depression Fibromyalgia GERD (gastroesophageal reflux disease) HFrEF (heart failure with reduced ejection fraction) HTN (hypertension) Hyperlipidemia Morbid obesity Obesity hypoventilation syndrome MARISOL (obstructive sleep apnea) Peptic ulcer disease Personal history of transient ischemic attack (TIA), and cerebral infarction wi thout residual deficits Seasonal allergies TIA (transient ischemic attack) UTI (urinary tract infection) Vitamin D deficiency Home Medications amitriptyline 25 mg tablet 25 mg PO QODAY DEPRESSION 05/03/22 [History Last Taken 04/15/23] atorvastatin 20 mg tablet 20 mg PO QHS CHOLESTEROL 05/03/22 [History Last Taken 04/15/23] famotidine 20 mg tablet 20 mg PO QHS GERD 05/03/22 [History Last Taken 04/15/23] fluticasone propionate 50 mcg/actuation nasal spray,suspension 2 spray intranasal BID PRN NASAL CONGESTION 05/03/22 [History Last Taken 05/28/22] losartan 50 mg tablet 50 mg PO DAILY BLOOD PRESSURE 05/03/22 [History Last Taken 04/16/23] montelukast 10 mg tablet 10 mg PO DAILY ALLERGIES 05/03/22 [History Last Taken 04/16/23] omeprazole 20 mg tablet,delayed release 20 mg PO DAILY GERD 05/03/22 [History Last Taken 04/16/23] roflumilast 500 mcg tablet (Daliresp) 500 mcg PO DAILY ASTHMA 05/03/22 [History Last Taken 04/16/23] sertraline 100 mg tablet (Zoloft) 100 mg PO QHS DEPRESSION 05/03/22 [History Last Taken 04/16/23] dicyclomine 10 mg capsule 10 mg PO 4X/DAY IRRITABLE BOWELS #1 cap 05/05/22 [Rx Last Taken 04/16/23] albuterol sulfate 90 mcg/actuation aerosol inhaler 2 puff inhalation Q2H PRN SOB 09/08/22 [History Last Taken 04/12/23] cholecalciferol (vitamin D3) 50 mcg (2,000 unit) tablet 50 mcg PO DAILY SUPPLEMENT 04/16/23 [History Last Taken 04/16/23] loperamide 2 mg capsule (Imodium A-D) 2 mg PO Q8H PRN DIARRHEA 04/16/23 [History Last Taken 04/09/23] prednisone 10 mg tablet 10 mg PO DAILY COPD 04/16/23 [History Last Taken 04/16/23] sertraline 50 mg tablet 50 mg PO DAILY DEPRESSION 04/16/23 [History Last Taken 04/16/23] acetaminophen 325 mg tablet 650 mg PO Q4H PRN Fever, pain 1-01/1607/26/23 [History Last Taken Unknown] acetaminophen 650 mg rectal suppository 650 mg HI Q4H PRN pain 07/26/23 [History Last Taken Unknown] albuterol sulfate 0.63 mg/3 mL solution for nebulization 0.63 mg inhalation 4X/DAY PRN shortness of breath or wheezing 07/26/23 [History Last Taken Unknown] aluminum-mag hydroxide-simethicone 400 mg-400 mg-40 mg/5 mL oral susp (Mag-Al Plus Extra Strength) 30 ml PO Q6H PRN Gastric Burning 07/26/23 [History Last Taken Unknown] buspirone 5 mg tablet 5 mg PO BID 07/26/23 [History Last Taken Unknown] furosemide 20 mg tablet 20 mg PO BID 07/26/23 [History Last Taken Unknown] guaifenesin 100 mg/5 mL oral liquid (Adult Tussin Chest Congestion) 200 mg PO Q4H PRN cough 07/26/23 [History Last Taken Unknown] loratadine 10 mg tablet (Allergy Relief (loratadine)) 10 mg PO DAILY 07/26/23 [History Last Taken Unknown] menthol 0.44 %-zinc oxide 20.6 % topical ointment (Calmoseptine) 1 applic topical 4X/DAY 07/26/23 [History Last Taken Unknown] ondansetron HCl 4 mg tablet 4 mg PO Q8H PRN nausea and vomiting 07/26/23 [History Last Taken Unknown] sodium phosphates 19 gram-7 gram/118 mL enema (Fleet Enema) 118 ml HI DAILY PRN constipation 07/26/23 [History Last Taken Unknown] topiramate 25 mg tablet 25 mg PO DAILY 07/26/23 [History Last Taken Unknown] trazodone 50 mg tablet 50 mg PO QHS 07/26/23 [History Last Taken Unknown] Allergy/AdvReac Type Severity Reaction Status Date / Time aspirin Allergy Other Verified 07/26/23 13:33 black pepper [pepper] Allergy Other Verified 07/26/23 13:33 coconut Allergy Other Verified 07/26/23 13:33 codeine Allergy Other Verified 07/26/23 13:33 ibuprofen Allergy Other Verified 07/26/23 13:33 Influenza Virus Vaccines Allergy Other Verified 07/26/23 13:33 Penicillins Allergy Anaphylaxis Verified 07/26/23 13:33 rice Allergy Other Verified 07/26/23 13:33 tetanus and diphtheria Allergy Other Verified 07/26/23 13:33 toxoids Tetanus Vaccines and Toxoid Allergy Other Verified 07/26/23 13:33 Family History Mother CAD (coronary artery disease) COPD (chronic obstructive pulmonary disease) Hypertension Heart disease Father CAD (coronary artery disease) COPD (chronic obstructive pulmonary disease) Hypertension Heart disease Surgical History History of ankle surgery Social History housing: long-term Smoking Status: Former smoker alcohol intake: never substance use type: does not use ROS <Marichuy Brown RN - Last Filed: 07/26/23 14:57> ROS ED Constitutional Constitutional ED: Denies chills, fever(s) or sweats Eyes Eyes: Denies blurry vision or change in vision ENT ENT ED: Denies ear pain, rhinorrhea or sore throat Cardiovascular Cardiovascular: Denies chest pain, orthopnea, palpitations or racing heartbeat Respiratory/Chest Respiratory/Chest: Denies cough, dyspnea or orthopnea Gastrointestinal Gastrointestinal: Reports abdominal pain, diarrhea, vomiting and other Details: Diarrhea x 2 weeks. Left lower quadrant pain. Emesis x 1 today. ; Denies constipation, melena or nausea Genitourinary Genitourinary ED: Denies dysuria, hematuria or urinary frequency Musculoskeletal Musculoskeletal: Denies arthralgias, back pain, myalgias or neck pain Integumentary Denies rash Neurologic Neurologic: Reports weakness and other Details: Generalized weakness ; Denies headache(s) or paresthesias EXAM <Marichuy Brown RN - Last Filed: 07/26/23 14:57> Physical Exam Narrative Exam Narrative: Patient drowsy. Awakens easily and interacts during assessment. Const Vital Signs: 07/26/23 11:59 07/26/23 11:58 07/26/23 12:35 Temperature 97.9 F Temperature Source Oral Pulse Rate 92 Respiratory Rate 14 Respiratory Effort Normal Respiratory Pattern Normal Blood Pressure 143/119 H Blood Pressure Mean 127 Pulse Ox 90 Oxygen Delivery Method Nasal Cannula Nasal Cannula Oxygen Flow Rate (L/min) 4 3 Fraction of Inspired Oxygen (FIO2) 07/26/23 12:54 07/26/23 13:35 07/26/23 13:48 Temperature Temperature Source Pulse Rate 95 95 90 Respiratory Rate 20 H 19 H 21 H Respiratory Effort Respiratory Pattern Blood Pressure 107/85 H 134/75 H Blood Pressure Mean 92 94 Pulse Ox 94 91 93 Oxygen Delivery Method Nasal Cannula Bi-pap Oxygen Flow Rate (L/min) 3 Fraction of Inspired Oxygen (FIO2) 40 07/26/23 13:31 07/26/23 14:46 07/26/23 15:04 Temperature 97.4 F L 97.4 F L Temperature Source Temporal Pulse Rate 93 85 85 Respiratory Rate 24 H 18 21 H Respiratory Effort Respiratory Pattern Blood Pressure 123/83 H 136/79 H Blood Pressure Mean 96 98 Pulse Ox 92 96 95 Oxygen Delivery Method Bi-pap Oxygen Flow Rate (L/min) Fraction of Inspired Oxygen (FIO2) 40 Positive well nourished, well developed and obese General Appearance ED: well developed and NAD Nutritional Appearance: obese HEENT Reports moist mucous membranes Negative for trauma Eyes PERRL and EOMs intact bilaterally Chest Wall inspection of chest normal and palpation of chest normal Resp normal respiratory effort and clear to auscultation bilaterally Auscultation: Negative for rales, rhonchi or wheezes Cardio regular rate, regular rhythm, S1 normal heart sound and S2 normal heart sound GI normal to inspection, nondistended, normoactive bowel sounds Palpation: soft and tender LLQ Narrative: Denies dysuria, urinary frequency and urgency, hematuria Extremity normal to inspection Neuro Neuro Narrative: Patient drowsy. Able to state name, date of , and current city. Unable to state current month and year. Motor Exam: strength 5/5 throughout Psych mental status grossly normal Skin no rashes or lesions noted Skin Narrative: Excoriation noted to upper chest skin fold. <Dr. Berenice Ramirez MD - Last Filed: 07/26/23 15:16> Physical Exam Const Vital Signs: 07/26/23 11:59 07/26/23 11:58 07/26/23 12:35 Temperature 97.9 F Temperature Source Oral Pulse Rate 92 Respiratory Rate 14 Respiratory Effort Normal Respiratory Pattern Normal Blood Pressure 143/119 H Blood Pressure Mean 127 Pulse Ox 90 Oxygen Delivery Method Nasal Cannula Nasal Cannula Oxygen Flow Rate (L/min) 4 3 Fraction of Inspired Oxygen (FIO2) 07/26/23 12:54 07/26/23 13:35 07/26/23 13:48 Temperature Temperature Source Pulse Rate 95 95 90 Respiratory Rate 20 H 19 H 21 H Respiratory Effort Respiratory Pattern Blood Pressure 107/85 H 134/75 H Blood Pressure Mean 92 94 Pulse Ox 94 91 93 Oxygen Delivery Method Nasal Cannula Bi-pap Oxygen Flow Rate (L/min) 3 Fraction of Inspired Oxygen (FIO2) 40 07/26/23 13:31 07/26/23 14:46 07/26/23 15:04 Temperature 97.4 F L 97.4 F L Temperature Source Temporal Pulse Rate 93 85 85 Respiratory Rate 24 H 18 21 H Respiratory Effort Respiratory Pattern Blood Pressure 123/83 H 136/79 H Blood Pressure Mean 96 98 Pulse Ox 92 96 95 Oxygen Delivery Method Bi-pap Oxygen Flow Rate (L/min) Fraction of Inspired Oxygen (FIO2) 40 MDM <Marichuy Brown RN - Last Filed: 07/26/23 14:57> [facility] MDM Narrative Medical decision making narrative: Patient placed on personnel monitor. IV line initiated. Labwork obtained to evaluate for leukocytosis, anemia, and electrolyte derangement. EKG obtained to evaluate for cardiac arrhythmia/ischemia. Nasal cannula end-tidal CO2 obtained shortly after arrival to ED showing end-tidal CO2 in the mid 90s. Patient placed on BiPAP. History & Record Review Discussion w/independent historian: Patient Lab Data Labs: Laboratory Results - last 24 hr 07/26/23 12:45 WBC 11.4 H RBC 3.96 L Hgb 10.3 L Hct 36.8 L MCV 92.9 MCH 26.0 L MCHC 28.0 L RDW Std Deviation 45.0 H RDW Coeff of David 13.2 Plt Count 231 MPV 11.7 Immature Gran % (Auto) 0.600 Neut % (Auto) 76.2 H Lymph % (Auto) 14.3 L [place] % (Auto) 7.7 Eos % (Auto) 0.9 Baso % (Auto) 0.3 Absolute Neuts (auto) 8.7 H Absolute Lymphs (auto) 1.63 Nucleated RBC % 0 Sodium 141 Potassium 4.4 Chloride 95 L Carbon Dioxide > 45.0 H* Anion Gap TNP BUN 22 H Creatinine 0.67 Est GFR (MDRD) Af Amer 114 Est GFR (MDRD) Non-Af 95 BUN/Creatinine Ratio 32.7 H Glucose 133 H Calcium 10.7 H B-Natriuretic Peptide 26.1 ABG Data ABG results: ABG 07/26/23 07/26/23 07/26/23 13:09 13:09 13:09 Specimen Type ART Cancelled Cancelled Sample Site R RADIAL pH Bicarbonate Actual Total CO2 Base Excess O2 Saturation O2 % ABG pCO2 ABG pO2 José Miguel Test Respiration Rate O2 Delivery Device Liter Flow Minute Volume Vent Mode Inspiratory Time Expiratory Time Tidal Volume Mean Airway Pressure POC PEEP Peak Inspir Pressure POC Pressure Suppt Pressure Control Pressure High Pressure Low Time High Time Low EPAP IPAP Blood Gas Comments Crit Call To/Read Back Blood Gas Notified Whom Blood Gas Notified Time Clinical Comments 07/26/23 07/26/23 07/26/23 13:09 13:09 13:09 Specimen Type Sample Site Cancelled Cancelled pH 7.30 L Cancelled Bicarbonate Actual Total CO2 Base Excess O2 Saturation O2 % ABG pCO2 ABG pO2 José Miguel Test Respiration Rate O2 Delivery Device Liter Flow Minute Volume Vent Mode Inspiratory Time Expiratory Time Tidal Volume Mean Airway Pressure POC PEEP Peak Inspir Pressure POC Pressure Suppt Pressure Control Pressure High Pressure Low Time High Time Low EPAP IPAP Blood Gas Comments Crit Call To/Read Back Blood Gas Notified Whom Blood Gas Notified Time Clinical Comments 07/26/23 07/26/23 07/26/23 13:09 13:09 13:09 Specimen Type Sample Site pH Cancelled Bicarbonate Actual 46.3 H Cancelled Cancelled Total CO2 49 Base Excess O2 Saturation O2 % ABG pCO2 ABG pO2 José Miguel Test Respiration Rate O2 Delivery Device Liter Flow Minute Volume Vent Mode Inspiratory Time Expiratory Time Tidal Volume Mean Airway Pressure POC PEEP Peak Inspir Pressure POC Pressure Suppt Pressure Control Pressure High Pressure Low Time High Time Low EPAP IPAP Blood Gas Comments Crit Call To/Read Back Blood Gas Notified Whom Blood Gas Notified Time Clinical Comments 07/26/23 07/26/23 07/26/23 13:09 13:09 13:09 Specimen Type Sample Site pH Bicarbonate Actual Total CO2 Cancelled Cancelled Base Excess 20 H Cancelled O2 Saturation O2 % ABG pCO2 ABG pO2 José Miguel Test Respiration Rate O2 Delivery Device Liter Flow Minute Volume Vent Mode Inspiratory Time Expiratory Time Tidal Volume Mean Airway Pressure POC PEEP Peak Inspir Pressure POC Pressure Suppt Pressure Control Pressure High Pressure Low Time High Time Low EPAP IPAP Blood Gas Comments Crit Call To/Read Back Blood Gas Notified Whom Blood Gas Notified Time Clinical Comments 07/26/23 07/26/23 07/26/23 13:09 13:09 13:09 Specimen Type Sample Site pH Bicarbonate Actual Total CO2 Base Excess Cancelled O2 Saturation 83 L Cancelled Cancelled O2 % Cancelled ABG pCO2 ABG pO2 José Miguel Test Respiration Rate O2 Delivery Device Liter Flow Minute Volume Vent Mode Inspiratory Time Expiratory Time Tidal Volume Mean Airway Pressure POC PEEP Peak Inspir Pressure POC Pressure Suppt Pressure Control Pressure High Pressure Low Time High Time Low EPAP IPAP Blood Gas Comments Crit Call To/Read Back Blood Gas Notified Whom Blood Gas Notified Time Clinical Comments 07/26/23 07/26/23 07/26/23 13:09 13:09 13:09 Specimen Type Sample Site pH Bicarbonate Actual Total CO2 Base Excess O2 Saturation O2 % Cancelled ABG pCO2 93.3 H* Cancelled Cancelled ABG pO2 57 L José Miguel Test Respiration Rate O2 Delivery Device Liter Flow Minute Volume Vent Mode Inspiratory Time Expiratory Time Tidal Volume Mean Airway Pressure POC PEEP Peak Inspir Pressure POC Pressure Suppt Pressure Control Pressure High Pressure Low Time High Time Low EPAP IPAP Blood Gas Comments Crit Call To/Read Back Blood Gas Notified Whom Blood Gas Notified Time Clinical Comments 07/26/23 07/26/23 07/26/23 13:09 13:09 13:09 Specimen Type Sample Site pH Bicarbonate Actual Total CO2 Base Excess O2 Saturation O2 % ABG pCO2 ABG pO2 Cancelled Cancelled José Miguel Test POS Cancelled Respiration Rate O2 Delivery Device Liter Flow Minute Volume Vent Mode Inspiratory Time Expiratory Time Tidal Volume Mean Airway Pressure POC PEEP Peak Inspir Pressure POC Pressure Suppt Pressure Control Pressure High Pressure Low Time High Time Low EPAP IPAP Blood Gas Comments Crit Call To/Read Back Blood Gas Notified Whom Blood Gas Notified Time Clinical Comments 07/26/23 07/26/23 07/26/23 13:09 13:09 13:09 Specimen Type Sample Site pH Bicarbonate Actual Total CO2 Base Excess O2 Saturation O2 % ABG pCO2 ABG pO2 José Miguel Test Cancelled Respiration Rate Cancelled Cancelled O2 Delivery Device CANNULA Cancelled Liter Flow Minute Volume Vent Mode Inspiratory Time Expiratory Time Tidal Volume Mean Airway Pressure POC PEEP Peak Inspir Pressure POC Pressure Suppt Pressure Control Pressure High Pressure Low Time High Time Low EPAP IPAP Blood Gas Comments Crit Call To/Read Back Blood Gas Notified Whom Blood Gas Notified Time Clinical Comments 07/26/23 07/26/23 07/26/23 13:09 13:09 13:09 Specimen Type Sample Site pH Bicarbonate Actual Total CO2 Base Excess O2 Saturation O2 % ABG pCO2 ABG pO2 José Miguel Test Respiration Rate O2 Delivery Device Cancelled Liter Flow 3.0 Cancelled Cancelled Minute Volume Cancelled Vent Mode Inspiratory Time Expiratory Time Tidal Volume Mean Airway Pressure POC PEEP Peak Inspir Pressure POC Pressure Suppt Pressure Control Pressure High Pressure Low Time High Time Low EPAP IPAP Blood Gas Comments Crit Call To/Read Back Blood Gas Notified Whom Blood Gas Notified Time Clinical Comments 07/26/23 07/26/23 07/26/23 13:09 13:09 13:09 Specimen Type Sample Site pH Bicarbonate Actual Total CO2 Base Excess O2 Saturation O2 % ABG pCO2 ABG pO2 José Miguel Test Respiration Rate O2 Delivery Device Liter Flow Minute Volume Cancelled Vent Mode Cancelled Cancelled Inspiratory Time Cancelled Cancelled Expiratory Time Cancelled Tidal Volume Mean Airway Pressure POC PEEP Peak Inspir Pressure POC Pressure Suppt Pressure Control Pressure High Pressure Low Time High Time Low EPAP IPAP Blood Gas Comments Crit Call To/Read Back Blood Gas Notified Whom Blood Gas Notified Time Clinical Comments 07/26/23 07/26/23 07/26/23 13:09 13:09 13:09 Specimen Type Sample Site pH Bicarbonate Actual Total CO2 Base Excess O2 Saturation O2 % ABG pCO2 ABG pO2 José Miguel Test Respiration Rate O2 Delivery Device Liter Flow Minute Volume Vent Mode Inspiratory Time Expiratory Time Cancelled Tidal Volume Cancelled Cancelled Mean Airway Pressure Cancelled Cancelled POC PEEP Cancelled Peak Inspir Pressure POC Pressure Suppt Pressure Control Pressure High Pressure Low Time High Time Low EPAP IPAP Blood Gas Comments Crit Call To/Read Back Blood Gas Notified Whom Blood Gas Notified Time Clinical Comments 07/26/23 07/26/23 07/26/23 13:09 13:09 13:09 Specimen Type Sample Site pH Bicarbonate Actual Total CO2 Base Excess O2 Saturation O2 % ABG pCO2 ABG pO2 José Miguel Test Respiration Rate O2 Delivery Device Liter Flow Minute Volume Vent Mode Inspiratory Time Expiratory Time Tidal Volume Mean Airway Pressure POC PEEP Cancelled Peak Inspir Pressure Cancelled Cancelled POC Pressure Suppt Cancelled Cancelled Pressure Control Cancelled Pressure High Pressure Low Time High Time Low EPAP IPAP Blood Gas Comments Crit Call To/Read Back Blood Gas Notified Whom Blood Gas Notified Time Clinical Comments 07/26/23 07/26/23 07/26/23 13:09 13:09 13:09 Specimen Type Sample Site pH Bicarbonate Actual Total CO2 Base Excess O2 Saturation O2 % ABG pCO2 ABG pO2 José Miguel Test Respiration Rate O2 Delivery Device Liter Flow Minute Volume Vent Mode Inspiratory Time Expiratory Time Tidal Volume Mean Airway Pressure POC PEEP Peak Inspir Pressure POC Pressure Suppt Pressure Control Cancelled Pressure High Cancelled Cancelled Pressure Low Cancelled Cancelled Time High Cancelled Time Low EPAP IPAP Blood Gas Comments Crit Call To/Read Back Blood Gas Notified Whom Blood Gas Notified Time Clinical Comments 07/26/23 07/26/23 07/26/23 13:09 13:09 13:09 Specimen Type Sample Site pH Bicarbonate Actual Total CO2 Base Excess O2 Saturation O2 % ABG pCO2 ABG pO2 José Miguel Test Respiration Rate O2 Delivery Device Liter Flow Minute Volume Vent Mode Inspiratory Time Expiratory Time Tidal Volume Mean Airway Pressure POC PEEP Peak Inspir Pressure POC Pressure Suppt Pressure Control Pressure High Pressure Low Time High Cancelled Time Low Cancelled Cancelled EPAP Cancelled Cancelled IPAP Cancelled Blood Gas Comments Crit Call To/Read Back Blood Gas Notified Whom Blood Gas Notified Time Clinical Comments 07/26/23 07/26/23 07/26/23 13:09 13:09 13:09 Specimen Type Sample Site pH Bicarbonate Actual Total CO2 Base Excess O2 Saturation O2 % ABG pCO2 ABG pO2 José Miguel Test Respiration Rate O2 Delivery Device Liter Flow Minute Volume Vent Mode Inspiratory Time Expiratory Time Tidal Volume Mean Airway Pressure POC PEEP Peak Inspir Pressure POC Pressure Suppt Pressure Control Pressure High Pressure Low Time High Time Low EPAP IPAP Cancelled Blood Gas Comments Cancelled Cancelled Crit Call To/Read Back Yes Cancelled Blood Gas Notified Whom Blood Gas Notified Time Clinical Comments 07/26/23 07/26/23 07/26/23 13:09 13:09 13:09 Specimen Type Sample Site pH Bicarbonate Actual Total CO2 Base Excess O2 Saturation O2 % ABG pCO2 ABG pO2 José Miguel Test Respiration Rate O2 Delivery Device Liter Flow Minute Volume Vent Mode Inspiratory Time Expiratory Time Tidal Volume Mean Airway Pressure POC PEEP Peak Inspir Pressure POC Pressure Suppt Pressure Control Pressure High Pressure Low Time High Time Low EPAP IPAP Blood Gas Comments Crit Call To/Read Back Cancelled Blood Gas Notified Whom DR. RAMIREZ Cancelled Cancelled Blood Gas Notified Time Cancelled Clinical Comments 07/26/23 07/26/23 13:09 13:09 Specimen Type Sample Site pH Bicarbonate Actual Total CO2 Base Excess O2 Saturation O2 % ABG pCO2 ABG pO2 José Miguel Test Respiration Rate O2 Delivery Device Liter Flow Minute Volume Vent Mode Inspiratory Time Expiratory Time Tidal Volume Mean Airway Pressure POC PEEP Peak Inspir Pressure POC Pressure Suppt Pressure Control Pressure High Pressure Low Time High Time Low EPAP IPAP Blood Gas Comments Crit Call To/Read Back Blood Gas Notified Whom Blood Gas Notified Time Cancelled Clinical Comments Cancelled Cancelled EKG Initial EKG: Attestation: I personally reviewed and interpreted this EKG as follows: Interpretation: Sinus Rhythm and RBBB Comments: EKG shows sinus rhythm with a right bundle branch block with a rate of 88. No dysrhythmia or ischemia noted. Differential Diagnosis Chest pain/SOB: pneumonia Differential Diagnosis: Acute on chronic respiratory failure Management Discussion w/another healthcare provider: Other (Dr. Ramirez, ED provider) Treatment and Re-Evaluation :: Lab work reviewed. CBC shows slightly elevated white blood cell count 11.4 with neutrophils 76.2%, hemoglobin 10.3 which is increased from 07/17/2023 when it was 9.1, hematocrit 36.8, and platelets 231. Chemistries show normal sodium 141, normal potassium 4.4, chloride 95, CO2 greater than 45, BUN 22, and creatinine 0.67. Glucose is 133. BNP is 26.1. ABG obtained showing respiratory acidosis with pH 7.3, CO2 93.3, O2 57, and bicarb 46.3. patient placed on BiPAP after ABG obtained. Upon reevaluation, patient resting in bed. Awakens easily. Lab work discussed with patient. Patient agreeable to admission. Dr. Ramirez to contact hospitalist. <Dr. Berenice Ramirez MD - Last Filed: 07/26/23 15:16> [facility] Lab Data Labs: Laboratory Results - last 24 hr 07/26/23 12:45 WBC 11.4 H RBC 3.96 L Hgb 10.3 L Hct 36.8 L MCV 92.9 MCH 26.0 L MCHC 28.0 L RDW Std Deviation 45.0 H RDW Coeff of David 13.2 Plt Count 231 MPV 11.7 Immature Gran % (Auto) 0.600 Neut % (Auto) 76.2 H Lymph % (Auto) 14.3 L [place] % (Auto) 7.7 Eos % (Auto) 0.9 Baso % (Auto) 0.3 Absolute Neuts (auto) 8.7 H Absolute Lymphs (auto) 1.63 Nucleated RBC % 0 Sodium 141 Potassium 4.4 Chloride 95 L Carbon Dioxide > 45.0 H* Anion Gap TNP BUN 22 H Creatinine 0.67 Est GFR (MDRD) Af Amer 114 Est GFR (MDRD) Non-Af 95 BUN/Creatinine Ratio 32.7 H Glucose 133 H Calcium 10.7 H B-Natriuretic Peptide 26.1 ABG Data ABG results: ABG 07/26/23 07/26/23 07/26/23 13:09 13:09 13:09 Specimen Type ART Cancelled Cancelled Sample Site R RADIAL pH Bicarbonate Actual Total CO2 Base Excess O2 Saturation O2 % ABG pCO2 ABG pO2 José Miguel Test Respiration Rate O2 Delivery Device Liter Flow Minute Volume Vent Mode Inspiratory Time Expiratory Time Tidal Volume Mean Airway Pressure POC PEEP Peak Inspir Pressure POC Pressure Suppt Pressure Control Pressure High Pressure Low Time High Time Low EPAP IPAP Blood Gas Comments Crit Call To/Read Back Blood Gas Notified Whom Blood Gas Notified Time Clinical Comments 07/26/23 07/26/23 07/26/23 13:09 13:09 13:09 Specimen Type Sample Site Cancelled Cancelled pH 7.30 L Cancelled Bicarbonate Actual Total CO2 Base Excess O2 Saturation O2 % ABG pCO2 ABG pO2 José Miguel Test Respiration Rate O2 Delivery Device Liter Flow Minute Volume Vent Mode Inspiratory Time Expiratory Time Tidal Volume Mean Airway Pressure POC PEEP Peak Inspir Pressure POC Pressure Suppt Pressure Control Pressure High Pressure Low Time High Time Low EPAP IPAP Blood Gas Comments Crit Call To/Read Back Blood Gas Notified Whom Blood Gas Notified Time Clinical Comments 07/26/23 07/26/23 07/26/23 13:09 13:09 13:09 Specimen Type Sample Site pH Cancelled Bicarbonate Actual 46.3 H Cancelled Cancelled Total CO2 49 Base Excess O2 Saturation O2 % ABG pCO2 ABG pO2 José Miguel Test Respiration Rate O2 Delivery Device Liter Flow Minute Volume Vent Mode Inspiratory Time Expiratory Time Tidal Volume Mean Airway Pressure POC PEEP Peak Inspir Pressure POC Pressure Suppt Pressure Control Pressure High Pressure Low Time High Time Low EPAP IPAP Blood Gas Comments Crit Call To/Read Back Blood Gas Notified Whom Blood Gas Notified Time Clinical Comments 07/26/23 07/26/23 07/26/23 13:09 13:09 13:09 Specimen Type Sample Site pH Bicarbonate Actual Total CO2 Cancelled Cancelled Base Excess 20 H Cancelled O2 Saturation O2 % ABG pCO2 ABG pO2 José Miguel Test Respiration Rate O2 Delivery Device Liter Flow Minute Volume Vent Mode Inspiratory Time Expiratory Time Tidal Volume Mean Airway Pressure POC PEEP Peak Inspir Pressure POC Pressure Suppt Pressure Control Pressure High Pressure Low Time High Time Low EPAP IPAP Blood Gas Comments Crit Call To/Read Back Blood Gas Notified Whom Blood Gas Notified Time Clinical Comments 07/26/23 07/26/23 07/26/23 13:09 13:09 13:09 Specimen Type Sample Site pH Bicarbonate Actual Total CO2 Base Excess Cancelled O2 Saturation 83 L Cancelled Cancelled O2 % Cancelled ABG pCO2 ABG pO2 José Miguel Test Respiration Rate O2 Delivery Device Liter Flow Minute Volume Vent Mode Inspiratory Time Expiratory Time Tidal Volume Mean Airway Pressure POC PEEP Peak Inspir Pressure POC Pressure Suppt Pressure Control Pressure High Pressure Low Time High Time Low EPAP IPAP Blood Gas Comments Crit Call To/Read Back Blood Gas Notified Whom Blood Gas Notified Time Clinical Comments 07/26/23 07/26/23 07/26/23 13:09 13:09 13:09 Specimen Type Sample Site pH Bicarbonate Actual Total CO2 Base Excess O2 Saturation O2 % Cancelled ABG pCO2 93.3 H* Cancelled Cancelled ABG pO2 57 L José Miguel Test Respiration Rate O2 Delivery Device Liter Flow Minute Volume Vent Mode Inspiratory Time Expiratory Time Tidal Volume Mean Airway Pressure POC PEEP Peak Inspir Pressure POC Pressure Suppt Pressure Control Pressure High Pressure Low Time High Time Low EPAP IPAP Blood Gas Comments Crit Call To/Read Back Blood Gas Notified Whom Blood Gas Notified Time Clinical Comments 07/26/23 07/26/23 07/26/23 13:09 13:09 13:09 Specimen Type Sample Site pH Bicarbonate Actual Total CO2 Base Excess O2 Saturation O2 % ABG pCO2 ABG pO2 Cancelled Cancelled José Miguel Test POS Cancelled Respiration Rate O2 Delivery Device Liter Flow Minute Volume Vent Mode Inspiratory Time Expiratory Time Tidal Volume Mean Airway Pressure POC PEEP Peak Inspir Pressure POC Pressure Suppt Pressure Control Pressure High Pressure Low Time High Time Low EPAP IPAP Blood Gas Comments Crit Call To/Read Back Blood Gas Notified Whom Blood Gas Notified Time Clinical Comments 07/26/23 07/26/23 07/26/23 13:09 13:09 13:09 Specimen Type Sample Site pH Bicarbonate Actual Total CO2 Base Excess O2 Saturation O2 % ABG pCO2 ABG pO2 Ojsé Miguel Test Cancelled Respiration Rate Cancelled Cancelled O2 Delivery Device CANNULA Cancelled Liter Flow Minute Volume Vent Mode Inspiratory Time Expiratory Time Tidal Volume Mean Airway Pressure POC PEEP Peak Inspir Pressure POC Pressure Suppt Pressure Control Pressure High Pressure Low Time High Time Low EPAP IPAP Blood Gas Comments Crit Call To/Read Back Blood Gas Notified Whom Blood Gas Notified Time Clinical Comments 07/26/23 07/26/23 07/26/23 13:09 13:09 13:09 Specimen Type Sample Site pH Bicarbonate Actual Total CO2 Base Excess O2 Saturation O2 % ABG pCO2 ABG pO2 José Miguel Test Respiration Rate O2 Delivery Device Cancelled Liter Flow 3.0 Cancelled Cancelled Minute Volume Cancelled Vent Mode Inspiratory Time Expiratory Time Tidal Volume Mean Airway Pressure POC PEEP Peak Inspir Pressure POC Pressure Suppt Pressure Control Pressure High Pressure Low Time High Time Low EPAP IPAP Blood Gas Comments Crit Call To/Read Back Blood Gas Notified Whom Blood Gas Notified Time Clinical Comments 07/26/23 07/26/23 07/26/23 13:09 13:09 13:09 Specimen Type Sample Site pH Bicarbonate Actual Total CO2 Base Excess O2 Saturation O2 % ABG pCO2 ABG pO2 José Miguel Test Respiration Rate O2 Delivery Device Liter Flow Minute Volume Cancelled Vent Mode Cancelled Cancelled Inspiratory Time Cancelled Cancelled Expiratory Time Cancelled Tidal Volume Mean Airway Pressure POC PEEP Peak Inspir Pressure POC Pressure Suppt Pressure Control Pressure High Pressure Low Time High Time Low EPAP IPAP Blood Gas Comments Crit Call To/Read Back Blood Gas Notified Whom Blood Gas Notified Time Clinical Comments 07/26/23 07/26/23 07/26/23 13:09 13:09 13:09 Specimen Type Sample Site pH Bicarbonate Actual Total CO2 Base Excess O2 Saturation O2 % ABG pCO2 ABG pO2 José Miguel Test Respiration Rate O2 Delivery Device Liter Flow Minute Volume Vent Mode Inspiratory Time Expiratory Time Cancelled Tidal Volume Cancelled Cancelled Mean Airway Pressure Cancelled Cancelled POC PEEP Cancelled Peak Inspir Pressure POC Pressure Suppt Pressure Control Pressure High Pressure Low Time High Time Low EPAP IPAP Blood Gas Comments Crit Call To/Read Back Blood Gas Notified Whom Blood Gas Notified Time Clinical Comments 07/26/23 07/26/23 07/26/23 13:09 13:09 13:09 Specimen Type Sample Site pH Bicarbonate Actual Total CO2 Base Excess O2 Saturation O2 % ABG pCO2 ABG pO2 José Miguel Test Respiration Rate O2 Delivery Device Liter Flow Minute Volume Vent Mode Inspiratory Time Expiratory Time Tidal Volume Mean Airway Pressure POC PEEP Cancelled Peak Inspir Pressure Cancelled Cancelled POC Pressure Suppt Cancelled Cancelled Pressure Control Cancelled Pressure High Pressure Low Time High Time Low EPAP IPAP Blood Gas Comments Crit Call To/Read Back Blood Gas Notified Whom Blood Gas Notified Time Clinical Comments 07/26/23 07/26/23 07/26/23 13:09 13:09 13:09 Specimen Type Sample Site pH Bicarbonate Actual Total CO2 Base Excess O2 Saturation O2 % ABG pCO2 ABG pO2 José Miguel Test Respiration Rate O2 Delivery Device Liter Flow Minute Volume Vent Mode Inspiratory Time Expiratory Time Tidal Volume Mean Airway Pressure POC PEEP Peak Inspir Pressure POC Pressure Suppt Pressure Control Cancelled Pressure High Cancelled Cancelled Pressure Low Cancelled Cancelled Time High Cancelled Time Low EPAP IPAP Blood Gas Comments Crit Call To/Read Back Blood Gas Notified Whom Blood Gas Notified Time Clinical Comments 07/26/23 07/26/23 07/26/23 13:09 13:09 13:09 Specimen Type Sample Site pH Bicarbonate Actual Total CO2 Base Excess O2 Saturation O2 % ABG pCO2 ABG pO2 José Miguel Test Respiration Rate O2 Delivery Device Liter Flow Minute Volume Vent Mode Inspiratory Time Expiratory Time Tidal Volume Mean Airway Pressure POC PEEP Peak Inspir Pressure POC Pressure Suppt Pressure Control Pressure High Pressure Low Time High Cancelled Time Low Cancelled Cancelled EPAP Cancelled Cancelled IPAP Cancelled Blood Gas Comments Crit Call To/Read Back Blood Gas Notified Whom Blood Gas Notified Time Clinical Comments 07/26/23 07/26/23 07/26/23 13:09 13:09 13:09 Specimen Type Sample Site pH Bicarbonate Actual Total CO2 Base Excess O2 Saturation O2 % ABG pCO2 ABG pO2 José Miguel Test Respiration Rate O2 Delivery Device Liter Flow Minute Volume Vent Mode Inspiratory Time Expiratory Time Tidal Volume Mean Airway Pressure POC PEEP Peak Inspir Pressure POC Pressure Suppt Pressure Control Pressure High Pressure Low Time High Time Low EPAP IPAP Cancelled Blood Gas Comments Cancelled Cancelled Crit Call To/Read Back Yes Cancelled Blood Gas Notified Whom Blood Gas Notified Time Clinical Comments 07/26/23 07/26/23 07/26/23 13:09 13:09 13:09 Specimen Type Sample Site pH Bicarbonate Actual Total CO2 Base Excess O2 Saturation O2 % ABG pCO2 ABG pO2 José Miguel Test Respiration Rate O2 Delivery Device Liter Flow Minute Volume Vent Mode Inspiratory Time Expiratory Time Tidal Volume Mean Airway Pressure POC PEEP Peak Inspir Pressure POC Pressure Suppt Pressure Control Pressure High Pressure Low Time High Time Low EPAP IPAP Blood Gas Comments Crit Call To/Read Back Cancelled Blood Gas Notified Whom DR. RAMIREZ Cancelled Cancelled Blood Gas Notified Time Cancelled Clinical Comments 07/26/23 07/26/23 13:09 13:09 Specimen Type Sample Site pH Bicarbonate Actual Total CO2 Base Excess O2 Saturation O2 % ABG pCO2 ABG pO2 José Miguel Test Respiration Rate O2 Delivery Device Liter Flow Minute Volume Vent Mode Inspiratory Time Expiratory Time Tidal Volume Mean Airway Pressure POC PEEP Peak Inspir Pressure POC Pressure Suppt Pressure Control Pressure High Pressure Low Time High Time Low EPAP IPAP Blood Gas Comments Crit Call To/Read Back Blood Gas Notified Whom Blood Gas Notified Time Cancelled Clinical Comments Cancelled Cancelled Treatment and Re-Evaluation :: Lab work reviewed. CBC shows slightly elevated white blood cell count 11.4 with neutrophils 76.2%, hemoglobin 10.3 which is increased from 07/17/2023 when it was 9.1, hematocrit 36.8, and platelets 231. Chemistries show normal sodium 141, normal potassium 4.4, chloride 95, CO2 greater than 45, BUN 22, and creatinine 0.67. Glucose is 133. BNP is 26.1. ABG obtained showing respiratory acidosis with pH 7.3, CO2 93.3, O2 57, and bicarb 46.3. patient placed on BiPAP after ABG obtained. Upon reevaluation, patient resting in bed. Awakens easily. Lab work discussed with patient. Patient agreeable to admission. Dr. Ramirez to contact hospitalist. Patient seen and evaluated with ANU student. I personally interviewed and examined the patient. I was involved in all aspects of patient's orders, interpretation of results, and treatment. Patient presents from [facility] secondary to abnormal blood work. She had a BMP ob tained that reveals her CO2 was greater than 45. Patient does have a history of chronic respiratory failure and is reportedly noncompliant with her BiPAP. Patient states that she does feel slightly confused and off. Patient alert and appropriate. She is answering questions at this time. Head neck examination unremarkable. Heart is regular rate and rhythm. Lung sounds are diminished at the bases bilaterally. Abdomen is soft, obese, nontender. Neuro exam reveals patient to be alert and answering questions appropriately. She is moving all 4 extremities. Lab work revealed slightly elevated white count at 11.4 with a hemoglobin of 10.3. 76% neutrophils noted. Chemistry studies reveal CO2 level greater than 45. BNP is normal at 26. ABG is obtained. pH is 7.304 with a pCO2 of 93.3. Patient does agree to wear BiPAP at this time. She is placed on BiPAP and I will speak with hospitalist regarding admission. I feel that she should be observed overnight on BiPAP to ensure no worsening of mental status. Discharge Plan Dx/Rx/DC Orders Clinical Impression: Acute hypoxic on chronic hypercapnic respiratory failure, History of COPD, History of obstructive sleep apnea, History of morbid obesity, History of hypertension, History of anemia Disposition Disposition: [facility]
--- NOTE | 2023-07-26 14:48 | PCM.HP.STD ---
HPI - General General Date of Admission: 07/26/23 Date of Service: 07/26/23 Chief Complaint: Refusing PAP therapy at night, increased confusion HPI Narrative The patient is a 62 y/o F w/ PMHx: Morbid Obesity, COPD w/ Chronic Hypoxic Respiratory Failure (3-4L NC), Anxiety and Depression, HFrEF, MARISOL on BIPAP q HS, GERD w/ Hx peptic ulcer disease, Hx TIA, Allergic rhintis, Chronic pain Syndrome, Former tobacco use who presents to the [facility] ED on 07/26/23 with history of significant increase CO2 on BMP recently refusing to wear CPAP with intermittent episodes of confusion and lethargy as well as recent bouts of loose stools and nausea and emesis on day of presentation prompting eventual ED evaluation. Workup in the ED included T97.9, heart rate 92, BP 143/119, respiratory rate 14, initially 90% on 4 L nasal cannula with most previous oxygenation noted 04/20/2498% on 3 L at that time with most recent vital signs T97.4, heart rate 85, BP 136/79, respiratory rate 21, 95% on BiPAP with FiO2 40%, CBC with WBC 11.4, hemoglobin 10.3, MCV 92.9, platelet 231 with left shift, ABG with pH 7.3, bicarb 46.3, base excess 20, O2 saturation 83%, pO2 93.3, pO2 57 initially performed on 3 L nasal cannula, BMP with chloride 95, CO2 greater than 45, BUN/creatinine 22/0.67, glucose 133, BNP 26.1. Upon evaluation patient had been on BiPAP for some time and was answering questions completely appropriately and orientation appeared to be now at baseline. [facility] Medical History Anemia Anxiety Chronic anemia Chronic pain Chronic respiratory failure with hypoxia COPD (chronic obstructive pulmonary disease) Depression Fibromyalgia GERD (gastroesophageal reflux disease) HFrEF (heart failure with reduced ejection fraction) HTN (hypertension) Hyperlipidemia Morbid obesity Obesity hypoventilation syndrome MARISOL (obstructive sleep apnea) Peptic ulcer disease Personal history of transient ischemic attack (TIA), and cerebral infarction without residual deficits Seasonal allergies TIA (transient ischemic attack) UTI (urinary tract infection) Vitamin D deficiency Home Medications amitriptyline 25 mg tablet 25 mg PO QODAY DEPRESSION 05/03/22 [History Last Taken 04/15/23] atorvastatin 20 mg tablet 20 mg PO QHS CHOLESTEROL 05/03/22 [History Last Taken 04/15/23] famotidine 20 mg tablet 20 mg PO QHS GERD 05/03/22 [History Last Taken 04/15/23] fluticasone propionate 50 mcg/actuation nasal spray,suspension 2 spray intranasal BID PRN NASAL CONGESTION 05/03/22 [History Last Taken 05/28/22] losartan 50 mg tablet 50 mg PO DAILY BLOOD PRESSURE 05/03/22 [History Last Taken 04/16/23] montelukast 10 mg tablet 10 mg PO DAILY ALLERGIES 05/03/22 [History Last Taken 04/16/23] omeprazole 20 mg tablet,delayed release 20 mg PO DAILY GERD 05/03/22 [History Last Taken 04/16/23] roflumilast 500 mcg tablet (Daliresp) 500 mcg PO DAILY ASTHMA 05/03/22 [History Last Taken 04/16/23] sertraline 100 mg tablet (Zoloft) 100 mg PO QHS DEPRESSION 05/03/22 [History Last Taken 04/16/23] dicyclomine 10 mg capsule 10 mg PO 4X/DAY IRRITABLE BOWELS #1 cap 05/05/22 [Rx Last Taken 04/16/23] albuterol sulfate 90 mcg/actuation aerosol inhaler 2 puff inhalation Q2H PRN SOB 09/08/22 [History Last Taken 04/12/23] cholecalciferol (vitamin D3) 50 mcg (2,000 unit) tablet 50 mcg PO DAILY SUPPLEMENT 04/16/23 [History Last Taken 04/16/23] loperamide 2 mg capsule (Imodium A-D) 2 mg PO Q8H PRN DIARRHEA 04/16/23 [History Last Taken 04/09/23] prednisone 10 mg tablet 10 mg PO DAILY COPD 04/16/23 [History Last Taken 04/16/23] sertraline 50 mg tablet 50 mg PO DAILY DEPRESSION 04/16/23 [History Last Taken 04/16/23] acetaminophen 325 mg tablet 650 mg PO Q4H PRN Fever, pain 1-01/1607/26/23 [History Last Taken Unknown] acetaminophen 650 mg rectal suppository 650 mg AR Q4H PRN pain 07/26/23 [History Last Taken Unknown] albuterol sulfate 0.63 mg/3 mL solution for nebulization 0.63 mg inhalation 4X/DAY PRN shortness of breath or wheezing 07/26/23 [History Last Taken Unknown] aluminum-mag hydroxide-simethicone 400 mg-400 mg-40 mg/5 mL oral susp (Mag-Al Plus Extra Strength) 30 ml PO Q6H PRN Gastric Burning 07/26/23 [History Last Taken Unknown] buspirone 5 mg tablet 5 mg PO BID 07/26/23 [History Last Taken Unknown] furosemide 20 mg tablet 20 mg PO BID 07/26/23 [History Last Taken Unknown] guaifenesin 100 mg/5 mL oral liquid (Adult Tussin Chest Congestion) 200 mg PO Q4H PRN cough 07/26/23 [History Last Taken Unknown] loratadine 10 mg tablet (Allergy Relief (loratadine)) 10 mg PO DAILY 07/26/23 [History Last Taken Unknown] menthol 0.44 %-zinc oxide 20.6 % topical ointment (Calmoseptine) 1 applic topical 4X/DAY 07/26/23 [History Last Taken Unknown] ondansetron HCl 4 mg tablet 4 mg PO Q8H PRN nausea and vomiting 07/26/23 [History Last Taken Unknown] sodium phosphates 19 gram-7 gram/118 mL enema (Fleet Enema) 118 ml AR DAILY PRN constipation 07/26/23 [History Last Taken Unknown] topiramate 25 mg tablet 25 mg PO DAILY 07/26/23 [History Last Taken Unknown] trazodone 50 mg tablet 50 mg PO QHS 07/26/23 [History Last Taken Unknown] Allergy/AdvReac Type Severity Reaction Status Date / Time aspirin Allergy Other Verified 07/26/23 13:33 black pepper [pepper] Allergy Other Verified 07/26/23 13:33 coconut Allergy Other Verified 07/26/23 13:33 codeine Allergy Other Verified 07/26/23 13:33 ibuprofen Allergy Other Verified 07/26/23 13:33 Influenza Virus Vaccines Allergy Other Verified 07/26/23 13:33 Penicillins Allergy Anaphylaxis Verified 07/26/23 13:33 rice Allergy Other Verified 07/26/23 13:33 tetanus and diphtheria Allergy Other Verified 07/26/23 13:33 toxoids Tetanus Vaccines and Toxoid Allergy Other Verified 07/26/23 13:33 Family History Mother CAD (coronary artery disease) COPD (chronic obstructive pulmonary disease) Hypertension Heart disease Father CAD (coronary artery disease) COPD (chronic obstructive pulmonary disease) Hypertension Heart disease Surgical History History of ankle surgery Social History housing: long-term Smoking Status: Former smoker alcohol intake: never substance use type: does not use ROS ROS Narrative Admission Review of Systems: CONSTITUTIONAL: No weight loss, fever, chills, + weakness or fatigue. HEENT: Eyes: No visual loss, blurred vision, double vision or yellow sclerae. Ears, Nose, Throat: No hearing loss, sneezing, congestion, runny nose or sore throat. SKIN: No rash or itching, lesions, wounds except for + bilateral lower extremity chronic venous stasis skin changes, occasional abrasion. CARDIOVASCULAR: + Chronic lymphedema. No chest pain, chest pressure or chest discomfort, palpitations, orthopnea, syncopal events. RESPIRATORY: + Chronic issues with dyspnea, occasional wheezing. No current marked cough or hemoptysis. GASTROINTESTINAL: No anorexia, nausea, vomiting or diarrhea, abdominal pain, melena, BRBPR. GENITOURINARY: No dysuria, frequency, urgency or retention. NEUROLOGICAL: + Acute encephalopathy suspected secondary to hypercapnia. No headache, dizziness, syncope, paralysis, ataxia, numbness or tingling in the extremities, focal weakness, change in bowel or bladder control, seizure. MUSCULOSKELETAL: + muscle, back pain, joint pain or stiffness. HEMATOLOGIC: + Chronic anemia, no marked easy bleeding/bruising history. LYMPHATICS: No enlarged nodes. No history of splenectomy. PSYCHIATRIC: + History of anxiety and depression. ENDOCRINOLOGIC: No reports of sweating, cold or heat intolerance. No polyuria or polydipsia. ALLERGIES: + History of allergic rhinitis. Vital Signs Vital Signs Vital Signs: 07/26/23 11:59 07/26/23 11:58 07/26/23 12:35 Temperature 97.9 F Temperature Source Oral Pulse Rate 92 Respiratory Rate 14 Respiratory Effort Normal Respiratory Pattern Normal Blood Pressure 143/119 H Blood Pressure Mean 127 Pulse Ox 90 Oxygen Delivery Method Nasal Cannula Nasal Cannula Oxygen Flow Rate (L/min) 4 3 Fraction of Inspired Oxygen (FIO2) 07/26/23 12:54 07/26/23 13:35 07/26/23 13:48 Temperature Temperature Source Pulse Rate 95 95 90 Respiratory Rate 20 H 19 H 21 H Respiratory Effort Respiratory Pattern Blood Pressure 107/85 H 134/75 H Blood Pressure Mean 92 94 Pulse Ox 94 91 93 Oxygen Delivery Method Nasal Cannula Bi-pap Oxygen Flow Rate (L/min) 3 Fraction of Inspired Oxygen (FIO2) 40 07/26/23 13:31 07/26/23 14:46 Temperature 97.4 F L Temperature Source Pulse Rate 93 85 Respiratory Rate 24 H 18 Respiratory Effort Respiratory Pattern Blood Pressure 123/83 H Blood Pressure Mean 96 Pulse Ox 92 96 Oxygen Delivery Method Oxygen Flow Rate (L/min) Fraction of Inspired Oxygen (FIO2) 40 Weight Weight: 356 lb 14.854 oz Body Mass Index (BMI) 57.6 Physical Exam Narrative Physical Examination: General: Awake, alert, oriented x 3 including to self, place, month, mental status appears to have returned to baseline, currently still on BiPAP, remains cooperative, laying on her side in the ED bed, no acute distress. Skin: Normal color, normal turgor, no icterus, no cyanosis except for occasional staged ecchymoses, intertrigo. HEENT: AT/NC, EOMI, PERRLA, mildly dry MM, BiPAP in place, unable to discern carotid bruit well given deferred sounds, difficult to discern JVD given thick and neck. Lungs: Significantly diminished, distant breath sounds, BiPAP in place, appropriate effort, no rales, ronchi or wheezing. Heart: Regular rate and rhythm; no gallop, rub audible. Abdomen: Soft, morbidly obese, NTTP, distant normal BS, difficult to discern distention and HSM given habitus. Extremities: No cyanosis, no clubbing, bilateral lower extremity chronic lymphedema. Neurological: Patient awake, alert, oriented as noted, cognitive function intact; pupils equally reactive to light and accommodation, cranial nerves grossly normal, moving all 4 extremities, no focal deficits, strength moderately to severely global decreased but improving. Psychiatric: Affect appears mildly fatigued but improving, normal, no acute evidence of depressive or anxiety feelings but does have underlying history. Results Lab / Micro Data 07/26/23 12:45 07/26/23 12:45 Labs: Laboratory Results - last 24 hr 07/26/23 12:45: WBC 11.4 H, RBC 3.96 L, Hgb 10.3 L, Hct 36.8 L, MCV 92.9, MCH 26.0 L, MCHC 28.0 L, RDW Std Deviation 45.0 H, RDW Coeff of David 13.2, Plt Count 231, MPV 11.7, Immature Gran % (Auto) 0.600, Neut % (Auto) 76.2 H, Lymph % (Auto) 14.3 L, [place] % (Auto) 7.7, Eos % (Auto) 0.9, Baso % (Auto) 0.3, Absolute Neuts (auto) 8.7 H, Absolute Lymphs (auto) 1.63, Nucleated RBC % 0, Sodium 141, Potassium 4.4, Chloride 95 L, Carbon Dioxide > 45.0 H*, Anion Gap TNP, BUN 22 H, Creatinine 0.67, Est GFR (MDRD) Af Amer 114, Est GFR (MDRD) Non-Af 95, BUN/Creatinine Ratio 32.7 H, Glucose 133 H, Calcium 10.7 H, B-Natriuretic Peptide 26.1 ABG Data ABG results: ABG 07/26/23 07/26/23 07/26/23 13:09 13:09 13:09 Specimen Type ART Cancelled Cancelled Sample Site R RADIAL pH Bicarbonate Actual Total CO2 Base Excess O2 Saturation O2 % ABG pCO2 ABG pO2 José Miguel Test Respiration Rate O2 Delivery Device Liter Flow Minute Volume Vent Mode Inspiratory Time Expiratory Time Tidal Volume Mean Airway Pressure POC PEEP Peak Inspir Pressure POC Pressure Suppt Pressure Control Pressure High Pressure Low Time High Time Low EPAP IPAP Blood Gas Comments Crit Call To/Read Back Blood Gas Notified Whom Blood Gas Notified Time Clinical Comments 07/26/23 07/26/23 07/26/23 13:09 13:09 13:09 Specimen Type Sample Site Cancelled Cancelled pH 7.30 L Cancelled Bicarbonate Actual Total CO2 Base Excess O2 Saturation O2 % ABG pCO2 ABG pO2 José Miguel Test Respiration Rate O2 Delivery Device Liter Flow Minute Volume Vent Mode Inspiratory Time Expiratory Time Tidal Volume Mean Airway Pressure POC PEEP Peak Inspir Pressure POC Pressure Suppt Pressure Control Pressure High Pressure Low Time High Time Low EPAP IPAP Blood Gas Comments Crit Call To/Read Back Blood Gas Notified Whom Blood Gas Notified Time Clinical Comments 07/26/23 07/26/23 07/26/23 13:09 13:09 13:09 Specimen Type Sample Site pH Cancelled Bicarbonate Actual 46.3 H Cancelled Cancelled Total CO2 49 Base Excess O2 Saturation O2 % ABG pCO2 ABG pO2 José Miguel Test Respiration Rate O2 Delivery Device Liter Flow Minute Volume Vent Mode Inspiratory Time Expiratory Time Tidal Volume Mean Airway Pressure POC PEEP Peak Inspir Pressure POC Pressure Suppt Pressure Control Pressure High Pressure Low Time High Time Low EPAP IPAP Blood Gas Comments Crit Call To/Read Back Blood Gas Notified Whom Blood Gas Notified Time Clinical Comments 07/26/23 07/26/23 07/26/23 13:09 13:09 13:09 Specimen Type Sample Site pH Bicarbonate Actual Total CO2 Cancelled Cancelled Base Excess 20 H Cancelled O2 Saturation O2 % ABG pCO2 ABG pO2 José Miguel Test Respiration Rate O2 Delivery Device Liter Flow Minute Volume Vent Mode Inspiratory Time Expiratory Time Tidal Volume Mean Airway Pressure POC PEEP Peak Inspir Pressure POC Pressure Suppt Pressure Control Pressure High Pressure Low Time High Time Low EPAP IPAP Blood Gas Comments Crit Call To/Read Back Blood Gas Notified Whom Blood Gas Notified Time Clinical Comments 07/26/23 07/26/23 07/26/23 13:09 13:09 13:09 Specimen Type Sample Site pH Bicarbonate Actual Total CO2 Base Excess Cancelled O2 Saturation 83 L Cancelled Cancelled O2 % Cancelled ABG pCO2 ABG pO2 José Miguel Test Respiration Rate O2 Delivery Device Liter Flow Minute Volume Vent Mode Inspiratory Time Expiratory Time Tidal Volume Mean Airway Pressure POC PEEP Peak Inspir Pressure POC Pressure Suppt Pressure Control Pressure High Pressure Low Time High Time Low EPAP IPAP Blood Gas Comments Crit Call To/Read Back Blood Gas Notified Whom Blood Gas Notified Time Clinical Comments 07/26/23 07/26/23 07/26/23 13:09 13:09 13:09 Specimen Type Sample Site pH Bicarbonate Actual Total CO2 Base Excess O2 Saturation O2 % Cancelled ABG pCO2 93.3 H* Cancelled Cancelled ABG pO2 57 L José Miguel Test Respiration Rate O2 Delivery Device Liter Flow Minute Volume Vent Mode Inspiratory Time Expiratory Time Tidal Volume Mean Airway Pressure POC PEEP Peak Inspir Pressure POC Pressure Suppt Pressure Control Pressure High Pressure Low Time High Time Low EPAP IPAP Blood Gas Comments Crit Call To/Read Back Blood Gas Notified Whom Blood Gas Notified Time Clinical Comments 07/26/23 07/26/23 07/26/23 13:09 13:09 13:09 Specimen Type Sample Site pH Bicarbonate Actual Total CO2 Base Excess O2 Saturation O2 % ABG pCO2 ABG pO2 Cancelled Cancelled José Miguel Test POS Cancelled Respiration Rate O2 Delivery Device Liter Flow Minute Volume Vent Mode Inspiratory Time Expiratory Time Tidal Volume Mean Airway Pressure POC PEEP Peak Inspir Pressure POC Pressure Suppt Pressure Control Pressure High Pressure Low Time High Time Low EPAP IPAP Blood Gas Comments Crit Call To/Read Back Blood Gas Notified Whom Blood Gas Notified Time Clinical Comments 07/26/23 07/26/23 07/26/23 13:09 13:09 13:09 Specimen Type Sample Site pH Bicarbonate Actual Total CO2 Base Excess O2 Saturation O2 % ABG pCO2 ABG pO2 José Miguel Test Cancelled Respiration Rate Cancelled Cancelled O2 Delivery Device CANNULA Cancelled Liter Flow Minute Volume Vent Mode Inspiratory Time Expiratory Time Tidal Volume Mean Airway Pressure POC PEEP Peak Inspir Pressure POC Pressure Suppt Pressure Control Pressure High Pressure Low Time High Time Low EPAP IPAP Blood Gas Comments Crit Call To/Read Back Blood Gas Notified Whom Blood Gas Notified Time Clinical Comments 07/26/23 07/26/23 07/26/23 13:09 13:09 13:09 Specimen Type Sample Site pH Bicarbonate Actual Total CO2 Base Excess O2 Saturation O2 % ABG pCO2 ABG pO2 José Miguel Test Respiration Rate O2 Delivery Device Cancelled Liter Flow 3.0 Cancelled Cancelled Minute Volume Cancelled Vent Mode Inspiratory Time Expiratory Time Tidal Volume Mean Airway Pressure POC PEEP Peak Inspir Pressure POC Pressure Suppt Pressure Control Pressure High Pressure Low Time High Time Low EPAP IPAP Blood Gas Comments Crit Call To/Read Back Blood Gas Notified Whom Blood Gas Notified Time Clinical Comments 07/26/23 07/26/23 07/26/23 13:09 13:09 13:09 Specimen Type Sample Site pH Bicarbonate Actual Total CO2 Base Excess O2 Saturation O2 % ABG pCO2 ABG pO2 José Miguel Test Respiration Rate O2 Delivery Device Liter Flow Minute Volume Cancelled Vent Mode Cancelled Cancelled Inspiratory Time Cancelled Cancelled Expiratory Time Cancelled Tidal Volume Mean Airway Pressure POC PEEP Peak Inspir Pressure POC Pressure Suppt Pressure Control Pressure High Pressure Low Time High Time Low EPAP IPAP Blood Gas Comments Crit Call To/Read Back Blood Gas Notified Whom Blood Gas Notified Time Clinical Comments 07/26/23 07/26/2324 13:09 13:09 13:09 Specimen Type Sample Site pH Bicarbonate Actual Total CO2 Base Excess O2 Saturation O2 % ABG pCO2 ABG pO2 José Miguel Test Respiration Rate O2 Delivery Device Liter Flow Minute Volume Vent Mode Inspiratory Time Expiratory Time Cancelled Tidal Volume Cancelled Cancelled Mean Airway Pressure Cancelled Cancelled POC PEEP Cancelled Peak Inspir Pressure POC Pressure Suppt Pressure Control Pressure High Pressure Low Time High Time Low EPAP IPAP Blood Gas Comments Crit Call To/Read Back Blood Gas Notified Whom Blood Gas Notified Time Clinical Comments 07/26/23 07/26/23 07/26/23 13:09 13:09 13:09 Specimen Type Sample Site pH Bicarbonate Actual Total CO2 Base Excess O2 Saturation O2 % ABG pCO2 ABG pO2 José Miguel Test Respiration Rate O2 Delivery Device Liter Flow Minute Volume Vent Mode Inspiratory Time Expiratory Time Tidal Volume Mean Airway Pressure POC PEEP Cancelled Peak Inspir Pressure Cancelled Cancelled POC Pressure Suppt Cancelled Cancelled Pressure Control Cancelled Pressure High Pressure Low Time High Time Low EPAP IPAP Blood Gas Comments Crit Call To/Read Back Blood Gas Notified Whom Blood Gas Notified Time Clinical Comments 07/26/23 07/26/23 07/26/23 13:09 13:09 13:09 Specimen Type Sample Site pH Bicarbonate Actual Total CO2 Base Excess O2 Saturation O2 % ABG pCO2 ABG pO2 José Miguel Test Respiration Rate O2 Delivery Device Liter Flow Minute Volume Vent Mode Inspiratory Time Expiratory Time Tidal Volume Mean Airway Pressure POC PEEP Peak Inspir Pressure POC Pressure Suppt Pressure Control Cancelled Pressure High Cancelled Cancelled Pressure Low Cancelled Cancelled Time High Cancelled Time Low EPAP IPAP Blood Gas Comments Crit Call To/Read Back Blood Gas Notified Whom Blood Gas Notified Time Clinical Comments 07/26/23 07/26/23 07/26/23 13:09 13:09 13:09 Specimen Type Sample Site pH Bicarbonate Actual Total CO2 Base Excess O2 Saturation O2 % ABG pCO2 ABG pO2 José Miguel Test Respiration Rate O2 Delivery Device Liter Flow Minute Volume Vent Mode Inspiratory Time Expiratory Time Tidal Volume Mean Airway Pressure POC PEEP Peak Inspir Pressure POC Pressure Suppt Pressure Control Pressure High Pressure Low Time High Cancelled Time Low Cancelled Cancelled EPAP Cancelled Cancelled IPAP Cancelled Blood Gas Comments Crit Call To/Read Back Blood Gas Notified Whom Blood Gas Notified Time Clinical Comments 07/26/23 07/26/2324 13:09 13:09 13:09 Specimen Type Sample Site pH Bicarbonate Actual Total CO2 Base Excess O2 Saturation O2 % ABG pCO2 ABG pO2 José Miguel Test Respiration Rate O2 Delivery Device Liter Flow Minute Volume Vent Mode Inspiratory Time Expiratory Time Tidal Volume Mean Airway Pressure POC PEEP Peak Inspir Pressure POC Pressure Suppt Pressure Control Pressure High Pressure Low Time High Time Low EPAP IPAP Cancelled Blood Gas Comments Cancelled Cancelled Crit Call To/Read Back Yes Cancelled Blood Gas Notified Whom Blood Gas Notified Time Clinical Comments 07/26/23 07/26/23 07/26/23 13:09 13:09 13:09 Specimen Type Sample Site pH Bicarbonate Actual Total CO2 Base Excess O2 Saturation O2 % ABG pCO2 ABG pO2 José Miguel Test Respiration Rate O2 Delivery Device Liter Flow Minute Volume Vent Mode Inspiratory Time Expiratory Time Tidal Volume Mean Airway Pressure POC PEEP Peak Inspir Pressure POC Pressure Suppt Pressure Control Pressure High Pressure Low Time High Time Low EPAP IPAP Blood Gas Comments Crit Call To/Read Back Cancelled Blood Gas Notified Whom DR. RAMIREZ Cancelled Cancelled Blood Gas Notified Time Cancelled Clinical Comments 07/26/23 07/26/23 13:09 13:09 Specimen Type Sample Site pH Bicarbonate Actual Total CO2 Base Excess O2 Saturation O2 % ABG pCO2 ABG pO2 José Miguel Test Respiration Rate O2 Delivery Device Liter Flow Minute Volume Vent Mode Inspiratory Time Expiratory Time Tidal Volume Mean Airway Pressure POC PEEP Peak Inspir Pressure POC Pressure Suppt Pressure Control Pressure High Pressure Low Time High Time Low EPAP IPAP Blood Gas Comments Crit Call To/Read Back Blood Gas Notified Whom Blood Gas Notified Time Cancelled Clinical Comments Cancelled Cancelled Assessment & Plan Assessment/Plan (1) Encephalopathy acute: PLAN: Plan The patient is a 62 y/o F w/ PMHx: Morbid Obesity, COPD w/ Chronic Hypoxic Respiratory Failure (3-4L NC), Anxiety and Depression, HFrEF, MARISOL on BIPAP q HS, GERD w/ Hx peptic ulcer disease, Hx TIA, Allergic rhintis, Chronic pain Syndrome, Former tobacco use who presents to the [facility] ED on 07/26/23 with history of significant increase CO2 on BMP recently refusing to wear CPAP with intermittent episodes of confusion and lethargy as well as recent bouts of loose stools and nausea and emesis on day of presentation prompting eventual ED evaluation. #1. Acute encephalopathy suspected secondary to acute on chronic hypercapnia secondary to noncompliance with PAP therapy with underlying COPD with chronic hypoxic respiratory failure: In the ED patient placed on BiPAP therapy, will admit following to PCU, maintain on monitor, continue BiPAP with home settings and plan repeat ABG in 1 to 2 hours following initial onset, discussed at length with patient that it is important to be compliant otherwise this will recur, expect improvement and likely discharged back to facility 07/27/2023. #2. N/V/D, Questionable Gastroenteritis: Will continue judicious hydration, will obtain c diff, stool cx, no evidence of any diarrhea or nausea/emesis in the ED but if onset then may need to rethink usage of BiPAP given aspiration risks with this. Possibly could be viral gastroenteritis. If enteric and C. difficile are negative but diarrhea does occur then may start antidiarrheal regimen at that time. #3. Chronic normocytic anemia: Admission hemoglobin 10.3, MCV 92.9, baseline hemoglobin 9-10, stable, continue to trend. #4. COPD w/ Chronic Hypoxic Respiratory Failure (3-4L NC): Once ABG is appropriate will transition back to home oxygen supplementation, continue ATC duonebs, PRN albuterol, HOB, IS parameters. Will continue chronic low-dose prednisone therapy. #5. Anxiety and Depression: We will continue patient home BuSpar, sertraline, amitriptyline home regimen. #6. HFrEF: 05/05/2022 echocardiogram with EF 55 to 60%, very difficult visualization, normal LV wall motion and LV systolic function. Will judiciously hydrate if necessary, will continue low-dose aspirin, statin, losartan, does not appear to be on beta-rome therapy or diuretic. #7. GERD w/ Hx peptic ulcer disease: We will continue patient home PPI. #8. Hx TIA: Will continue baby aspirin, statin, hypertensive regimen as noted. #9. Allergic rhintis: We will continue patient home fluticasone, loratadine and montelukast home regimen. #10. Hyperlipidemia: We will continue patient on statin therapy. #11. Chronic pain Syndrome: Per current list does not appear to be any chronic pain regimen, encourage offloading, frequent positional changes, PT/OT consulted. #12. Former tobacco use: Encourage continued tobacco cessation. #13. Morbid Obesity: Weight loss and lifestyle changes encouraged. #14. MARISOL: As noted we will continue BiPAP nightly. #15. DVT prophylaxis: Lovenox. #16. CODE STATUS: Per facility paperwork full code. Charges/Coding Visit Charges Inpatient E&M: 13620 Init Hosp L2
[2023-07-26] MEDS: 0.9% Normal Saline (1000mL) 1,000 ML 100 ML IV (16:54)
[2023-07-26 18:16] LABS: Allen Test Positive; Base Excess 20 mmol/L (-2 to +2); Bicarbonate 46.2 mmol/L (22-26); Blood Gas Specimen Type ART; Mode Not entered; O2 Delivery Device Cannula; PO2 63 mmHG (75-100); SITE R Radial; SO2 89 % (95-99); Time Given 18:14:28; Total Carbon Dioxide 49 mmol/L; pCO2 85.9 mmHg (35-45); pH 7.34 (7.35-7.45)
[2023-07-26] MEDS: Menthol/Lanolin/Calamine/Znox 113 GM Tube 1 APPLIC TOPICAL ×2 (18:33→21:56)
[2023-07-26 18:39] LABS: Procalcitonin < 0.04 ng/mL (0.00-0.09)
[2023-07-26] MEDS: Ipratropium/Albuterol Sulfate 3 ML AMPUL.NEB INHALATION (19:41)
[2023-07-26] MEDS: Nystatin Powder 15gm Bottle 1 APPLIC TOPICAL (21:56)
[2023-07-26] MEDS: Enoxaparin 40 MG/0.4 ML Syringe SC (22:00)
[2023-07-27] VITALS (8 sets, daily range): BP systolic 117–137; BP diastolic 45–78; PULSE 60–104; RESP 12–24; TEMP 36.6–36.7; O2SAT 30–99; BMI 52.5
[2023-07-27 06:41] LABS: Absolute Lymphocyte Count 2.52 X10^3/uL (0.83-4.51); Absolute Neutrophil Count 6.9 X10^3/uL (2.0-7.7); Basophil# 0.02 X10^3/uL; Basophil% 0.2 % (0-1); Eosinophil# 0.13 X10^3/uL; Eosinophils% 1.3 % (0-5); Hematocrit 34.1 % (37-47); Hemoglobin 9.9 g/dL (12.0-15.0); Lymphocyte # 2.52 X10^3/ul (0.83-4.51); Lymphocyte % 24.3 % (19-41); Mean Corpuscular Hgb 26.4 pg (27.0-32.0); Mean Corpuscular Volume 90.9 fL (81-99); Monocyte% 7.7 % (0-10); NRBC Flagged by Analyzer 0 % (0-5); Neutrophil # 6.85 X10^3/uL (2.7-7.7); Neutrophil % 65.8 % (47-70); Platelet Count 233 K/mm3 (150-450); RBC Distribution Width CV 13.2 % (11.6-14.6); RBC Distribution Width SD 44.1 fl (35.1-43.9); Red Blood Count 3.75 M/mm3 (4.2-5.4); White Blood Count 10.4 K/mm3 (4.4-11.0)
[2023-07-27 07:00] LABS: ALB/GLOB Ratio 0.7 RATIO (0.9-2.4); AST(SGOT) 9 U/L (15-37); Alanine Aminotransfer ALT/SGPT 8 U/L (13-56); Albumin, Serum 2.6 g/dL (3.2-5.0); Alkaline Phosphatase 87 U/L (45-117); Anion Gap 2 (5-15); BUN 26 mg/dL (7-18); BUN/Creat Ratio 42.3 RATIO (10-20); Calcium,Total 10.4 mg/dL (8.5-10.1); Chloride 99 mmol/L (98-107); Creatinine, Serum 0.61 mg/dL (0.55-1.02); EST Glomerular Filtration Rate 105 mL/min (>60); Est Glom Filt Rate - Afr Amer 127 mL/min (>60); Estimated Creatinine Clearance 144.67 ml/min; Globulin 3.7 g/dL (2.2-4.2); Glucose 84 mg/dL (74-106); Protein, Total 6.3 g/dL (6.4-8.2); Sodium Level 144 mmol/L (136-145)
[2023-07-27] MEDS: Ipratropium/Albuterol Sulfate 3 ML AMPUL.NEB INHALATION ×2 (07:18→13:57)
[2023-07-27] MEDS: Nystatin Powder 15gm Bottle 1 APPLIC TOPICAL (08:00)
[2023-07-27] MEDS: Menthol/Lanolin/Calamine/Znox 113 GM Tube 1 APPLIC TOPICAL (08:00)
[2023-07-27 11:15] LABS: Allen Test Positive; Base Excess 20 mmol/L (-2 to +2); Bicarbonate 44.3 mmol/L (22-26); Blood Gas Specimen Type ART; Mode Not entered; O2 Delivery Device Cannula; PO2 79 mmHG (75-100); SITE L Radial; SO2 95 % (95-99); Time Given 11:13:43; Total Carbon Dioxide 47 mmol/L; pCO2 71.4 mmHg (35-45)
--- NOTE | 2023-07-27 11:30 | DS.PCM_ITS ---
Providers Date of Admission: 07/26/23 Date of Discharge: 07/27/23 Primary Care Physician: Dr. Sepideh Patterson MD Reason For Visit: ENCEPHALOPATHY,HYPERCAPNIA,NONCOMP W/ BIPAP, N/V/D Diagnosis Discharge Diagnosis (1) Encephalopathy acute: Status: Acute Code(s): G93.40 - Encephalopathy, unspecified Medications at Discharge Home Medications amitriptyline 25 mg tablet 25 mg PO QODAY DEPRESSION 05/03/22 atorvastatin 20 mg tablet 20 mg PO QHS CHOLESTEROL 05/03/22 famotidine 20 mg tablet 20 mg PO QHS GERD 05/03/22 fluticasone propionate 50 mcg/actuation nasal spray,suspension 2 spray intr anasal BID PRN NASAL CONGESTION 05/03/22 losartan 50 mg tablet 50 mg PO DAILY BLOOD PRESSURE 05/03/22 montelukast 10 mg tablet 10 mg PO DAILY ALLERGIES 05/03/22 omeprazole 20 mg tablet,delayed release 20 mg PO DAILY GERD 05/03/22 roflumilast 500 mcg tablet (Daliresp) 500 mcg PO DAILY ASTHMA 05/03/22 sertraline 100 mg tablet (Zoloft) 100 mg PO QHS DEPRESSION 05/03/22 dicyclomine 10 mg capsule 10 mg PO 4X/DAY IRRITABLE BOWELS #1 cap 05/05/22 albuterol sulfate 90 mcg/actuation aerosol inhaler 2 puff inhalation Q2H PRN SOB 09/08/22 cholecalciferol (vitamin D3) 50 mcg (2,000 unit) tablet 50 mcg PO DAILY SUPPLEMENT 04/16/23 loperamide 2 mg capsule (Imodium A-D) 2 mg PO Q8H PRN DIARRHEA 04/16/23 prednisone 10 mg tablet 10 mg PO DAILY COPD 04/16/23 sertraline 50 mg tablet 50 mg PO DAILY DEPRESSION 04/16/23 acetaminophen 325 mg tablet 650 mg PO Q4H PRN Fever, pain 1-01/1607/26/23 acetaminophen 650 mg rectal suppository [address] Q4H PRN pain 07/26/23 albuterol sulfate 0.63 mg/3 mL solution for nebulization 0.63 mg inhalation 4X/DAY PRN shortness of breath or wheezing 07/26/23 aluminum-mag hydroxide-simethicone 400 mg-400 mg-40 mg/5 mL oral susp (Mag-Al Plus Extra Strength) 30 ml PO Q6H PRN Gastric Burning 07/26/23 buspirone 5 mg tablet 5 mg PO BID 07/26/23 furosemide 20 mg tablet 20 mg PO BID 07/26/23 guaifenesin 100 mg/5 mL oral liquid (Adult Tussin Chest Congestion) 200 mg PO Q4H PRN cough 07/26/23 loratadine 10 mg tablet (Allergy Relief (loratadine)) 10 mg PO DAILY 07/26/23 menthol 0.44 %-zinc oxide 20.6 % topical ointment (Calmoseptine) 1 applic topical 4X/DAY 07/26/23 ondansetron HCl 4 mg tablet 4 mg PO Q8H PRN nausea and vomiting 07/26/23 sodium phosphates 19 gram-7 gram/118 mL enema (Fleet Enema) [address] DAILY PRN constipation 07/26/23 topiramate 25 mg tablet 25 mg PO DAILY 07/26/23 trazodone 50 mg tablet 50 mg PO QHS 07/26/23 Hospital Course Summary of Care Provided Minutes Spent on Discharge: 35 Hospital Course: Patient is a 62-year-old female who presented to [facility] ED on 07/26/2023 with worsening confusion and lethargy. Short hospital course as noted below. Patient discharged back to [facility] in stable condition on 07/26. 1. Acute metabolic encephalopathy, resolved; acute on chronic hypercapnic respi ratory failure secondary to noncompliance with PAP therapy Came from [facility]CF with worsening confusion and lethargy. Found on labs there to have a bicarb greater than 45. Was noted by staff there that patient had not been wearing her CPAP. Patient also reported a few episodes of diarrhea with emesis on day of admission as noted below. Initial ABG in the ED showed a pH of 7.30, pCO2 of 93, pO2 of 57 on 3 L nasal cannula. Initial BMP with bicarb again greater than 45, labs otherwise benign. Placed on BiPAP in afternoon and overnight, repeat ABG on morning of 07/26 with pH 7.39, pCO2 68. Bicarb on BMP slightly improved to 43. ? Patient had resolution of encephalopathy with improvement in hypercapnia on BiPAP, presumed etiology of encephalopathy was hypercapnia. Will be very important for patient to wear BiPAP with naps and with sleep going forward. Stable on home 3 to 4 L nasal cannula on discharge. Continue home meds on discharge. 2. Nausea/vomiting/diarrhea, resolved ? Unclear etiology. Lab workup was fairly benign, BMP with no significant electrolyte abnormalities. Stool sample was negative for C. difficile, stool PCR also negative. Had no episodes of nausea or vomiting during hospitalization and no episodes of diarrhea on hospital day 2. No further workup needed on d ischarge. 3. Chronic debility ? Lives in ECF. PT/OT/case management followed. Stable for discharge back to [facility] on 07/26. Chronic medical conditions: ? Chronic normocytic anemia: Hemoglobin 10.3 on admit, baseline hemoglobin 9-10. Stable. ? Anxiety and depression: Stable. Continue home BuSpar, sertraline, amitriptyline. ? HFrEF: Last echo in 04/2022 showed EF 55 to 60%, normal LV wall motion and function, difficult study due to body habitus. Hydrated on admission as noted above without issue. Continue home aspirin, statin, losartan. ? GERD with history of peptic ulcer disease: Continue home PPI. ? History of TIA: Continue home aspirin and statin. ? Allergic rhinitis: Continue home fluticasone, loratadine and montelukast. ? Hyperlipidemia: Continue home statin. ? Former tobacco use: Encouraged continued cessation. ? Morbid obesity: BMI 52 on admit. Complicated hospital course, care and prognosis. ? MARISOL: Very important that patient wear BiPAP at night going forward. Total clinical time spent by myself addressing the patient's medical issues, reviewing all the data, and collaborating with patient's care team: 35 minutes. Physical Exam Const alert, oriented x3 and no apparent distress Constitutional Narrative: Morbidly obese, otherwise alert and oriented, laying comfortably in bed, conversing normally, in no acute distress. General Appearance: cooperative and comfortable HEENT normocephalic, head/scalp atraumatic, hearing grossly normal bilaterally, nasal mucous membranes and turbinates normal and moist oral mucous membranes Eyes PERRL, EOMs intact bilaterally and conjunctivae normal Neck full ROM Chest inspection of chest normal Resp normal respiratory effort and no use of accessory muscles Resp Narrative: Mildly decreased breath sounds bilaterally, difficult to auscultate due to body habitus. No wheezing or crackles noted. Cardio regular rate, regular rhythm, no murmurs and peripheral pulses 2+ throughout GI normal to inspection, nondistended, normoactive bowel sounds, soft to palpation, non-tender and non-distended Back/Spine normal ROM Extremity normal to inspection, full ROM and no pedal edema Skin no rashes or lesions noted Neuro no focal motor deficits and no sensory deficits noted Speech: speech normal Psych mental status grossly normal Weight / BMI Weight Weight: 147.6 kg Body Mass Index (BMI) 52.5 ABG / Lab / Microbiology Data 07/27/23 04:48 07/27/23 04:48 Laboratory: Laboratory Results - last 24 hr 07/26/23 12:45: WBC 11.4 H, RBC 3.96 L, Hgb 10.3 L, Hct 36.8 L, MCV 92.9, MCH 26.0 L, MCHC 28.0 L, RDW Std Deviation 45.0 H, RDW Coeff of David 13.2, Plt Count 231, MPV 11.7, Immature Gran % (Auto) 0.600, Neut % (Auto) 76.2 H, Lymph % (Auto) 14.3 L, [place] % (Auto) 7.7, Eos % (Auto) 0.9, Baso % (Auto) 0.3, Absolute Neuts (auto) 8.7 H, Absolute Lymphs (auto) 1.63, Nucleated RBC % 0, Sodium 141, Potassium 4.4, Chloride 95 L, Carbon Dioxide > 45.0 H*, Anion Gap TNP, BUN 22 H, Creatinine 0.67, Est GFR (MDRD) Af Amer 114, Est GFR (MDRD) Non-Af 95, BUN/Creatinine Ratio 32.7 H, Glucose 133 H, Calcium 10.7 H, B-Natriuretic Peptide 26.1, Procalcitonin < 0.04 07/27/23 04:48: WBC 10.4, RBC 3.75 L, Hgb 9.9 L, Hct 34.1 L, MCV 90.9, MCH 26.4 L, MCHC 29.0 L, RDW Std Deviation 44.1 H, RDW Coeff of David 13.2, Plt Count 233, MPV 12.0, Immature Gran % (Auto) 0.700, Neut % (Auto) 65.8, Lymph % (Auto) 24.3, [place] % (Auto) 7.7, Eos % (Auto) 1.3, Baso % (Auto) 0.2, Absolute Neuts (auto) 6.9, Absolute Lymphs (auto) 2.52, Nucleated RBC % 0, Sodium 144, Potassium 4.0, Chloride 99, Carbon Dioxide 43.0 H, Anion Gap 2 L, BUN 26 H, Creatinine 0.61, Estim Creat Clear Calc 144.67, Est GFR (MDRD) Af Amer 127, Est GFR (MDRD) Non-Af 105, BUN/Creatinine Ratio 42.3 H, Glucose 84, Calcium 10.4 H, Total Bilirubin 0.30, AST 9 L, ALT 8 L, Alkaline Phosphatase 87, Total Protein 6.3 L, Albumin 2.6 L, Globulin 3.7, Albumin/Globulin Ratio 0.7 L Microbiology: Microbiology 07/26/23 17:58 Stool Clostridioides difficile (PCR) - Final ABG: ABG 07/26/23 07/26/23 07/26/23 13:09 13:09 13:09 Specimen Type ART Cancelled Cancelled Sample Site R RADIAL pH Bicarbonate Actual Total CO2 Base Excess O2 Saturation O2 % ABG pCO2 ABG pO2 José Miguel Test Respiration Rate O2 Delivery Device Liter Flow Minute Volume Vent Mode Inspiratory Time Expiratory Time Tidal Volume Mean Airway Pressure POC PEEP Peak Inspir Pressure POC Pressure Suppt Pressure Control Pressure High Pressure Low Time High Time Low EPAP IPAP Blood Gas Comments Crit Call To/Read Back Blood Gas Notified Whom Blood Gas Notified Time Clinical Comments 07/26/23 07/26/23 07/26/23 13:09 13:09 13:09 Specimen Type Sample Site Cancelled Cancelled pH 7.30 L Cancelled Bicarbonate Actual Total CO2 Base Excess O2 Saturation O2 % ABG pCO2 ABG pO2 José Miguel Test Respiration Rate O2 Delivery Device Liter Flow Minute Volume Vent Mode Inspiratory Time Expiratory Time Tidal Volume Mean Airway Pressure POC PEEP Peak Inspir Pressure POC Pressure Suppt Pressure Control Pressure High Pressure Low Time High Time Low EPAP IPAP Blood Gas Comments Crit Call To/Read Back Blood Gas Notified Whom Blood Gas Notified Time Clinical Comments 07/26/23 07/26/23 07/26/23 13:09 13:09 13:09 Specimen Type Sample Site pH Cancelled Bicarbonate Actual 46.3 H Cancelled Cancelled Total CO2 49 Base Excess O2 Saturation O2 % ABG pCO2 ABG pO2 José Miguel Test Respiration Rate O2 Delivery Device Liter Flow Minute Volume Vent Mode Inspiratory Time Expiratory Time Tidal Volume Mean Airway Pressure POC PEEP Peak Inspir Pressure POC Pressure Suppt Pressure Control Pressure High Pressure Low Time High Time Low EPAP IPAP Blood Gas Comments Crit Call To/Read Back Blood Gas Notified Whom Blood Gas Notified Time Clinical Comments 07/26/23 07/26/23 07/26/23 13:09 13:09 13:09 Specimen Type Sample Site pH Bicarbonate Actual Total CO2 Cancelled Cancelled Base Excess 20 H Cancelled O2 Saturation O2 % ABG pCO2 ABG pO2 José Miguel Test Respiration Rate O2 Delivery Device Liter Flow Minute Volume Vent Mode Inspiratory Time Expiratory Time Tidal Volume Mean Airway Pressure POC PEEP Peak Inspir Pressure POC Pressure Suppt Pressure Control Pressure High Pressure Low Time High Time Low EPAP IPAP Blood Gas Comments Crit Call To/Read Back Blood Gas Notified Whom Blood Gas Notified Time Clinical Comments 07/26/23 07/26/23 07/26/23 13:09 13:09 13:09 Specimen Type Sample Site pH Bicarbonate Actual Total CO2 Base Excess Cancelled O2 Saturation 83 L Cancelled Cancelled O2 % Cancelled ABG pCO2 ABG pO2 José Miguel Test Respiration Rate O2 Delivery Device Liter Flow Minute Volume Vent Mode Inspiratory Time Expiratory Time Tidal Volume Mean Airway Pressure POC PEEP Peak Inspir Pressure POC Pressure Suppt Pressure Control Pressure High Pressure Low Time High Time Low EPAP IPAP Blood Gas Comments Crit Call To/Read Back Blood Gas Notified Whom Blood Gas Notified Time Clinical Comments 07/26/23 07/26/23 07/26/23 13:09 13:09 13:09 Specimen Type Sample Site pH Bicarbonate Actual Total CO2 Base Excess O2 Saturation O2 % Cancelled ABG pCO2 93.3 H* Cancelled Cancelled ABG pO2 57 L José Miguel Test Respiration Rate O2 Delivery Device Liter Flow Minute Volume Vent Mode Inspiratory Time Expiratory Time Tidal Volume Mean Airway Pressure POC PEEP Peak Inspir Pressure POC Pressure Suppt Pressure Control Pressure High Pressure Low Time High Time Low EPAP IPAP Blood Gas Comments Crit Call To/Read Back Blood Gas Notified Whom Blood Gas Notified Time Clinical Comments 07/26/23 07/26/23 07/26/23 13:09 13:09 13:09 Specimen Type Sample Site pH Bicarbonate Actual Total CO2 Base Excess O2 Saturation O2 % ABG pCO2 ABG pO2 Cancelled Cancelled José Miguel Test POS Cancelled Respiration Rate O2 Delivery Device Liter Flow Minute Volume Vent Mode Inspiratory Time Expiratory Time Tidal Volume Mean Airway Pressure POC PEEP Peak Inspir Pressure POC Pressure Suppt Pressure Control Pressure High Pressure Low Time High Time Low EPAP IPAP Blood Gas Comments Crit Call To/Read Back Blood Gas Notified Whom Blood Gas Notified Time Clinical Comments 07/26/23 07/26/23 07/26/23 13:09 13:09 13:09 Specimen Type Sample Site pH Bicarbonate Actual Total CO2 Base Excess O2 Saturation O2 % ABG pCO2 ABG pO2 José Miguel Test Cancelled Respiration Rate Cancelled Cancelled O2 Delivery Device CANNULA Cancelled Liter Flow Minute Volume Vent Mode Inspiratory Time Expiratory Time Tidal Volume Mean Airway Pressure POC PEEP Peak Inspir Pressure POC Pressure Suppt Pressure Control Pressure High Pressure Low Time High Time Low EPAP IPAP Blood Gas Comments Crit Call To/Read Back Blood Gas Notified Whom Blood Gas Notified Time Clinical Comments 07/26/23 07/26/23 07/26/23 13:09 13:09 13:09 Specimen Type Sample Site pH Bicarbonate Actual Total CO2 Base Excess O2 Saturation O2 % ABG pCO2 ABG pO2 José Miguel Test Respiration Rate O2 Delivery Device Cancelled Liter Flow 3.0 Cancelled Cancelled Minute Volume Cancelled Vent Mode Inspiratory Time Expiratory Time Tidal Volume Mean Airway Pressure POC PEEP Peak Inspir Pressure POC Pressure Suppt Pressure Control Pressure High Pressure Low Time High Time Low EPAP IPAP Blood Gas Comments Crit Call To/Read Back Blood Gas Notified Whom Blood Gas Notified Time Clinical Comments 07/26/23 07/26/23 07/26/23 13:09 13:09 13:09 Specimen Type Sample Site pH Bicarbonate Actual Total CO2 Base Excess O2 Saturation O2 % ABG pCO2 ABG pO2 José Miguel Test Respiration Rate O2 Delivery Device Liter Flow Minute Volume Cancelled Vent Mode Cancelled Cancelled Inspiratory Time Cancelled Cancelled Expiratory Time Cancelled Tidal Volume Mean Airway Pressure POC PEEP Peak Inspir Pressure POC Pressure Suppt Pressure Control Pressure High Pressure Low Time High Time Low EPAP IPAP Blood Gas Comments Crit Call To/Read Back Blood Gas Notified Whom Blood Gas Notified Time Clinical Comments 07/26/23 07/26/23 07/26/23 13:09 13:09 13:09 Specimen Type Sample Site pH Bicarbonate Actual Total CO2 Base Excess O2 Saturation O2 % ABG pCO2 ABG pO2 José Miguel Test Respiration Rate O2 Delivery Device Liter Flow Minute Volume Vent Mode Inspiratory Time Expiratory Time Cancelled Tidal Volume Cancelled Cancelled Mean Airway Pressure Cancelled Cancelled POC PEEP Cancelled Peak Inspir Pressure POC Pressure Suppt Pressure Control Pressure High Pressure Low Time High Time Low EPAP IPAP Blood Gas Comments Crit Call To/Read Back Blood Gas Notified Whom Blood Gas Notified Time Clinical Comments 07/26/23 07/26/23 07/26/23 13:09 13:09 13:09 Specimen Type Sample Site pH Bicarbonate Actual Total CO2 Base Excess O2 Saturation O2 % ABG pCO2 ABG pO2 José Miguel Test Respiration Rate O2 Delivery Device Liter Flow Minute Volume Vent Mode Inspiratory Time Expiratory Time Tidal Volume Mean Airway Pressure POC PEEP Cancelled Peak Inspir Pressure Cancelled Cancelled POC Pressure Suppt Cancelled Cancelled Pressure Control Cancelled Pressure High Pressure Low Time High Time Low EPAP IPAP Blood Gas Comments Crit Call To/Read Back Blood Gas Notified Whom Blood Gas Notified Time Clinical Comments 07/26/23 07/26/23 07/26/23 13:09 13:09 13:09 Specimen Type Sample Site pH Bicarbonate Actual Total CO2 Base Excess O2 Saturation O2 % ABG pCO2 ABG pO2 José Miguel Test Respiration Rate O2 Delivery Device Liter Flow Minute Volume Vent Mode Inspiratory Time Expiratory Time Tidal Volume Mean Airway Pressure POC PEEP Peak Inspir Pressure POC Pressure Suppt Pressure Control Cancelled Pressure High Cancelled Cancelled Pressure Low Cancelled Cancelled Time High Cancelled Time Low EPAP IPAP Blood Gas Comments Crit Call To/Read Back Blood Gas Notified Whom Blood Gas Notified Time Clinical Comments 07/26/23 07/26/23 07/26/23 13:09 13:09 13:09 Specimen Type Sample Site pH Bicarbonate Actual Total CO2 Base Excess O2 Saturation O2 % ABG pCO2 ABG pO2 José Miguel Test Respiration Rate O2 Delivery Device Liter Flow Minute Volume Vent Mode Inspiratory Time Expiratory Time Tidal Volume Mean Airway Pressure POC PEEP Peak Inspir Pressure POC Pressure Suppt Pressure Control Pressure High Pressure Low Time High Cancelled Time Low Cancelled Cancelled EPAP Cancelled Cancelled IPAP Cancelled Blood Gas Comments Crit Call To/Read Back Blood Gas Notified Whom Blood Gas Notified Time Clinical Comments 07/26/23 07/26/23 07/26/23 13:09 13:09 13:09 Specimen Type Sample Site pH Bicarbonate Actual Total CO2 Base Excess O2 Saturation O2 % ABG pCO2 ABG pO2 José Miguel Test Respiration Rate O2 Delivery Device Liter Flow Minute Volume Vent Mode Inspiratory Time Expiratory Time Tidal Volume Mean Airway Pressure POC PEEP Peak Inspir Pressure POC Pressure Suppt Pressure Control Pressure High Pressure Low Time High Time Low EPAP IPAP Cancelled Blood Gas Comments Cancelled Cancelled Crit Call To/Read Back Yes Cancelled Blood Gas Notified Whom Blood Gas Notified Time Clinical Comments 07/26/23 07/26/23 07/26/23 13:09 13:09 13:09 Specimen Type Sample Site pH Bicarbonate Actual Total CO2 Base Excess O2 Saturation O2 % ABG pCO2 ABG pO2 José Miguel Test Respiration Rate O2 Delivery Device Liter Flow Minute Volume Vent Mode Inspiratory Time Expiratory Time Tidal Volume Mean Airway Pressure POC PEEP Peak Inspir Pressure POC Pressure Suppt Pressure Control Pressure High Pressure Low Time High Time Low EPAP IPAP Blood Gas Comments Crit Call To/Read Back Cancelled Blood Gas Notified Whom DR. RAMIREZ Cancelled Cancelled Blood Gas Notified Time Cancelled Clinical Comments 07/26/23 07/26/23 07/26/23 13:09 13:09 18:12 Specimen Type ART Sample Site R Radial pH 7.34 L Bicarbonate Actual 46.2 H Total CO2 49 Base Excess 20 H O2 Saturation 89 L O2 % 3.0 ABG pCO2 85.9 H* ABG pO2 63 L José Miguel Test Positive Respiration Rate O2 Delivery Device Cannula Liter Flow Minute Volume Vent Mode Not entered Inspiratory Time Expiratory Time Tidal Volume Mean Airway Pressure POC PEEP Peak Inspir Pressure POC Pressure Suppt Pressure Control Pressure High Pressure Low Time High Time Low EPAP IPAP Blood Gas Comments Crit Call To/Read Back Yes Blood Gas Notified Whom white Blood Gas Notified Time Cancelled 18:14:28 Clinical Comments Cancelled Cancelled 07/26/23 07/27/23 07/27/23 18:19 11:11 11:18 Specimen Type Cancelled ART ART Sample Site Cancelled L Radial Not entered pH Cancelled 7.40 7.39 Bicarbonate Actual Cancelled 44.3 H 41.3 H Total CO2 Cancelled 47 43 Base Excess Cancelled 20 H 16 H O2 Saturation Cancelled 95 95 O2 % Cancelled 4.0 ABG pCO2 Cancelled 71.4 H* 68.5 H* ABG pO2 Cancelled 79 78 José Miguel Test Cancelled Positive Respiration Rate Cancelled O2 Delivery Device Cancelled Cannula Not entered Liter Flow Cancelled Minute Volume Cancelled Vent Mode Cancelled Not entered Not entered Inspiratory Time Cancelled Expiratory Time Cancelled Tidal Volume Cancelled Mean Airway Pressure Cancelled POC PEEP Cancelled Peak Inspir Pressure Cancelled POC Pressure Suppt Cancelled Pressure Control Cancelled Pressure High Cancelled Pressure Low Cancelled Time High Cancelled Time Low Cancelled EPAP Cancelled IPAP Cancelled Blood Gas Comments Cancelled Crit Call To/Read Back Cancelled Yes Yes Blood Gas Notified Whom Cancelled yamilet Blood Gas Notified Time Cancelled 11:13:43 Clinical Comments Cancelled Meaningful Use Info Meaningful Use Meaningful Use Diagnoses (Choose all that apply): None applicable Ischemic Stroke Statin Dosing Therapy Reference: STATIN DOSE THERAPY REFERENCE: * Patients > 75 years receive moderate or high dose statin therapy. * Patients 75 years or YOUNGER should receive HIGH intensity statin dose unless contraindicated. You will be required to document reason for non-treatment if statin daily dose does not meet guidelines. HIGH DOSE STATIN THERAPY DAILY Atorvastatin > than or = to 40 mg Rosuvastatin > than or = to 20 mg Amlodipine + Atorvastatin > than or = to 2.5/40 mg Ezetimibe + Simvastatin 10/80 mg Simvastatin 80mg Discharge Plan Admission Admit Date/Time: 07/26/23 15:43 Primary Reason for Your Visit: Increased confusion Attending Provider: Ahsan Sousa Primary Care Provider: Sepideh Patterson Consulting Providers: Elizabeth Choe Discharge Orders/Prescriptions Prescriptions: Continued losartan 50 mg Tablet 50 mg PO DAILY atorvastatin 20 mg Tablet 20 mg PO QHS sertraline [Zoloft] 100 mg Tablet 100 mg PO QHS Rx Instructions: TAKE ONE 50MG AND ONE 100MG TABLET TOGETHER ONCE DAILY FOR A TOTAL DAILY DOSE OF 150MG. famotidine 20 mg Tablet 20 mg PO QHS amitriptyline 25 mg Tablet 25 mg PO QODAY montelukast 10 mg Tablet 10 mg PO DAILY fluticasone propionate 50 mcg/actuation [place],Suspension 2 spray INTRANASAL BID PRN (Reason: NASAL CONGESTION) omeprazole 20 mg Tablet,Delayed Release (Dr/Ec) 20 mg PO DAILY roflumilast [Daliresp] 500 mcg Tablet 500 mcg PO DAILY dicyclomine 10 mg Capsule 10 mg PO 4X/DAY Qty: 1 0RF albuterol sulfate 90 mcg/actuation Hfa Aerosol Inhaler 2 puff INHALATION Q2H PRN (Reason: SOB) prednisone 10 mg tablet 10 mg PO DAILY cholecalciferol (vitamin D3) 50 mcg (2,000 unit) tablet 50 mcg PO DAILY sertraline 50 mg tablet 50 mg PO DAILY Rx Instructions: TAKE ONE 50MG AND ONE 100MG TABLET TOGETHER ONCE DAILY FOR A TOTAL DAILY DOSE OF 150MG. loperamide [Imodium A-D] 2 mg capsule 2 mg PO Q8H PRN (Reason: DIARRHEA ) albuterol sulfate 0.63 mg/3 mL solution for nebulization 0.63 mg inhalation 4X/DAY PRN (Reason: shortness of breath or wheezing) acetaminophen 650 mg suppository [address] Q4H PRN (Reason: pain) buspirone 5 mg tablet 5 mg PO BID Fleet Enema 19-7 gram/118 mL enema [address] DAILY PRN (Reason: constipation) Rx Instructions: USE FOR UP TO 2 EPISODES IF DULCOLAX SUPPOSITORY INEFFECTIVE. CALL PHYSICIAN IF NO BM FOR 4 DAYS guaifenesin [Adult Tussin Chest Congestion] 100 mg/5 mL liquid 200 mg PO Q4H PRN (Reason: cough) furosemide 20 mg tablet 20 mg PO BID loratadine [Allergy Relief (loratadine)] 10 mg tablet 10 mg PO DAILY trazodone 50 mg tablet 50 mg PO QHS ondansetron HCl 4 mg tablet 4 mg PO Q8H PRN (Reason: nausea and vomiting) topiramate 25 mg tablet 25 mg PO DAILY acetaminophen 325 mg Tablet 650 mg PO Q4H PRN (Reason: Fever, pain 1-01/16) alum-mag hydroxide-simeth [Mag-Al Plus Extra Strength] 400-400-40 mg/5 mL Suspension 30 ml PO Q6H PRN (Reason: Gastric Burning) menthol-zinc oxide [Calmoseptine] 0.44-20.6 % Ointment 1 applic topical 4X/DAY Protocol: *Topical Application Instructions APPLICATION INSTRUCTIONS: apply to affected region Rx Instructions: APPLY TO BUTTOCK 4 TIMES A DAY FOR EXCORIATION Referrals / Follow Up: Sepideh Patterson MD [Primary Care Provider] - Disposition Disposition (needs filled in before D/C Order can be placed): Custodial Acute Care Charges/Coding Visit Charges Inpatient E&M: 81225 Disch Hosp >30min
--- NOTE | 2023-07-27 11:30 | CASEMGMT ---
Patient is from [facility]. SW confirmed with patient her plan is to return to [facility] at discharge. SW sent updates to [facility] and let them know patient will be returning today. SW also asked if patient was wearing bipap at SNF. [facility] said it was ordered, but patient consistently refused to wear it so the order was discontinued. SW let [facility] know that physician is going to order it again. Sheeba Lucio [employer]
--- NOTE | 2023-07-27 12:14 | PCM.TXEXTCAR ---
Diet Diet Order/Speech Therapy: 07/26/23 16:35 Diet: Cardiac - Heart Healthy Food consistency:: Regular Liquid Consistency:: Regular/Thin Routine Orders/Code Status O2 Frequency: Continuous Keep PO Greater than or Equal to (%): 90 Code Status: Full Code Therapies Weight Bearing: Full weight bearing Physical Therapy: Eval and Treat Occupational Therapy: Eval and Treat Problem/Diagnosis (1) Encephalopathy acute: Status: Acute Code(s): G93.40 - Encephalopathy, unspecified Plan Patient is a 62-year-old female who presented to [facility] ED on 07/26/2023 with worsening confusion and lethargy. Short hospital course as noted below. Patient discharged back to [facility] in stable condition on 07/26. 1. Acute metabolic encephalopathy, resolved; acute on chronic hypercapnic respiratory failure secondary to noncompliance with PAP therapy Came from ECF with worsening confusion and lethargy. Found on labs there to have a bicarb greater than 45. Was noted by staff there that patient had not been wearing her CPAP. Patient also reported a few episodes of diarrhea with emesis on day of admission as noted below. Initial ABG in the ED showed a pH of 7.30, pCO2 of 93, pO2 of 57 on 3 L nasal cannula. Initial BMP with bicarb again greater than 45, labs otherwise benign. Placed on BiPAP in afternoon and overnight, repeat ABG on morning of 07/26 with pH 7.39, pCO2 68. Bicarb on BMP slightly improved to 43. ? Patient had resolution of encephalopathy with improvement in hypercapnia on BiPAP, presumed etiology of encephalopathy was hypercapnia. Will be very important for patient to wear BiPAP with naps and with sleep going forward. Stable on home 3 to 4 L nasal cannula on discharge. Continue home meds on discharge. 2. Nausea/vomiting/diarrhea, resolved ? Unclear etiology. Lab workup was fairly benign, BMP with no significant electrolyte abnormalities. Stool sample was negative for C. difficile, stool PCR also negative. Had no episodes of nausea or vomiting during hospitalization and no episodes of diarrhea on hospital day 2. No further workup needed on discharge. 3. Chronic debility ? Lives in ECF. PT/OT/case management followed. Stable for discharge back to ECF on 07/26. Chronic medical conditions: ? Chronic normocytic anemia: Hemoglobin 10.3 on admit, baseline hemoglobin 9-10. Stable. ? Anxiety and depression: Stable. Continue home BuSpar, sertraline, amitriptyline. ? HFrEF: Last echo in 04/2022 showed EF 55 to 60%, normal LV wall motion and function, difficult study due to body habitus. Hydrated on admission as noted above without issue. Continue home aspirin, statin, losartan. ? GERD with history of peptic ulcer disease: Continue home PPI. ? History of TIA: Continue home aspirin and statin. ? Allergic rhinitis: Continue home fluticasone, loratadine and montelukast. ? Hyperlipidemia: Continue home statin. ? Former tobacco use: Encouraged continued cessation. ? Morbid obesity: BMI 52 on admit. Complicated hospital course, care and prognosis. ? MARISOL: Very important that patient wear BiPAP at night going forward. Total clinical time spent by myself addressing the patient's medical issues, reviewing all the data, and collaborating with patient's care team: 35 minutes. Allergies/Procedures Done in Hospital Allergies aspirin Allergy (Verified 07/26/23 13:33) Other black pepper [pepper] Allergy (Verified 07/26/23 13:33) Other coconut Allergy (Verified 07/26/23 13:33) Other codeine Allergy (Verified 07/26/23 13:33) Other ibuprofen Allergy (Verified 07/26/23 13:33) Other Influenza Virus Vaccines Allergy (Verified 07/26/23 13:33) Other Penicillins Allergy (Verified 07/26/23 13:33) Anaphylaxis rice Allergy (Verified 07/26/23 13:33) Other tetanus and diphtheria toxoids Allergy (Verified 07/26/23 13:33) Other Tetanus Vaccines and Toxoid Allergy (Verified 07/26/23 13:33) Other Procedures: EKG Type of Care/Length of Stay Estimated LOS: More Than 30 Days Type of Care Needed: Intermediate Rehab Potential: Fair Prognosis: Fair Additional Orders/Day of Discharge H&P will serve as current which was dated: 07/26/23 Day of Discharge: 07/27/23 Discharge Plan Admission Admit Date/Time: 07/26/23 15:43 Primary Reason for Your Visit: Increased confusion Attending Provider: Ahsan Sousa Primary Care Provider: Sepideh Patterson Consulting Providers: Elizaebth Choe Discharge Orders/Prescriptions Prescriptions: Continued losartan 50 mg Tablet 50 mg PO DAILY atorvastatin 20 mg Tablet 20 mg PO QHS sertraline [Zoloft] 100 mg Tablet 100 mg PO QHS Rx Instructions: TAKE ONE 50MG AND ONE 100MG TABLET TOGETHER ONCE DAILY FOR A TOTAL DAILY DOSE OF 150MG. famotidine 20 mg Tablet 20 mg PO QHS amitriptyline 25 mg Tablet 25 mg PO QODAY montelukast 10 mg Tablet 10 mg PO DAILY fluticasone propionate 50 mcg/actuation [place],Suspension 2 spray INTRANASAL BID PRN (Reason: NASAL CONGESTION) omeprazole 20 mg Tablet,Delayed Release (Dr/Ec) 20 mg PO DAILY roflumilast [Daliresp] 500 mcg Tablet 500 mcg PO DAILY dicyclomine 10 mg Capsule 10 mg PO 4X/DAY Qty: 1 0RF albuterol sulfate 90 mcg/actuation Hfa Aerosol Inhaler 2 puff INHALATION Q2H PRN (Reason: SOB) prednisone 10 mg tablet 10 mg PO DAILY cholecalciferol (vitamin D3) 50 mcg (2,000 unit) tablet 50 mcg PO DAILY sertraline 50 mg tablet 50 mg PO DAILY Rx Instructions: TAKE ONE 50MG AND ONE 100MG TABLET TOGETHER ONCE DAILY FOR A TOTAL DAILY DOSE OF 150MG. loperamide [Imodium A-D] 2 mg capsule 2 mg PO Q8H PRN (Reason: DIARRHEA ) albuterol sulfate 0.63 mg/3 mL solution for nebulization 0.63 mg inhalation 4X/DAY PRN (Reason: shortness of breath or wheezing) acetaminophen 650 mg suppository 650 mg VT Q4H PRN (Reason: pain) buspirone 5 mg tablet 5 mg PO BID Fleet Enema 19-7 gram/118 mL enema 118 ml VT DAILY PRN (Reason: constipation) Rx Instructions: USE FOR UP TO 2 EPISODES IF DULCOLAX SUPPOSITORY INEFFECTIVE. CALL PHYSICIAN IF NO BM FOR 4 DAYS guaifenesin [Adult Tussin Chest Congestion] 100 mg/5 mL liquid 200 mg PO Q4H PRN (Reason: cough) furosemide 20 mg tablet 20 mg PO BID loratadine [Allergy Relief (loratadine)] 10 mg tablet 10 mg PO DAILY trazodone 50 mg tablet 50 mg PO QHS ondansetron HCl 4 mg tablet 4 mg PO Q8H PRN (Reason: nausea and vomiting) topiramate 25 mg tablet 25 mg PO DAILY acetaminophen 325 mg Tablet 650 mg PO Q4H PRN (Reason: Fever, pain 1-01/16) alum-mag hydroxide-simeth [Mag-Al Plus Extra Strength] 400-400-40 mg/5 mL Suspension 30 ml PO Q6H PRN (Reason: Gastric Burning) menthol-zinc oxide [Calmoseptine] 0.44-20.6 % Ointment 1 applic topical 4X/DAY Protocol: *Topical Application Instructions APPLICATION INSTRUCTIONS: apply to affected region Rx Instructions: APPLY TO BUTTOCK 4 TIMES A DAY FOR EXCORIATION Referrals / Follow Up: Sepideh Patterson MD [Primary Care Provider] - Disposition Disposition (needs filled in before D/C Order can be placed): [facility]
--- NOTE | 2023-07-27 14:18 | PHA.DC.MR.R ---
Pharmacy [place] Med Reconciliation Pharmacy Service has performed discharge medication reconciliation for this patient. The patient's discharge medication list was reviewed for discrepancies and discrepancies were resolved. Medications at Discharge Home Medications amitriptyline 25 mg tablet 25 mg PO QODAY DEPRESSION 05/03/22 atorvastatin 20 mg tablet 20 mg PO QHS CHOLESTEROL 05/03/22 famotidine 20 mg tablet 20 mg PO QHS GERD 05/03/22 fluticasone propionate 50 mcg/actuation nasal spray,suspension 2 spray intranasal BID PRN NASAL CONGESTION 05/03/22 losartan 50 mg tablet 50 mg PO DAILY BLOOD PRESSURE 05/03/22 montelukast 10 mg tablet 10 mg PO DAILY ALLERGIES 05/03/22 omeprazole 20 mg tablet,delayed release 20 mg PO DAILY GERD 05/03/22 roflumilast 500 mcg tablet (Daliresp) 500 mcg PO DAILY ASTHMA 05/03/22 sertraline 100 mg tablet (Zoloft) 100 mg PO QHS DEPRESSION 05/03/22 dicyclomine 10 mg capsule 10 mg PO 4X/DAY IRRITABLE BOWELS #1 cap 05/05/22 albuterol sulfate 90 mcg/actuation aerosol inhaler 2 puff inhalation Q2H PRN SOB 09/08/22 cholecalciferol (vitamin D3) 50 mcg (2,000 unit) tablet 50 mcg PO DAILY SUPPLEMENT 04/16/23 loperamide 2 mg capsule (Imodium A-D) 2 mg PO Q8H PRN DIARRHEA 04/16/23 prednisone 10 mg tablet 10 mg PO DAILY COPD 04/16/23 sertraline 50 mg tablet 50 mg PO DAILY DEPRESSION 04/16/23 acetaminophen 325 mg tablet 650 mg PO Q4H PRN Fever, pain 1-01/1607/26/23 acetaminophen 650 mg rectal suppository 650 mg W[place] Q4H PRN pain 07/26/23 albuterol sulfate 0.63 mg/3 mL solution for nebulization 0.63 mg inhalation 4X/DAY PRN shortness of breath or wheezing 07/26/23 aluminum-mag hydroxide-simethicone 400 mg-400 mg-40 mg/5 mL oral susp (Mag-Al Plus Extra Strength) 30 ml PO Q6H PRN Gastric Burning 07/26/23 buspirone 5 mg tablet 5 mg PO BID 07/26/23 furosemide 20 mg tablet 20 mg PO BID 07/26/23 guaifenesin 100 mg/5 mL oral liquid (Adult Tussin Chest Congestion) 200 mg PO Q4H PRN cough 07/26/23 loratadine 10 mg tablet (Allergy Relief (loratadine)) 10 mg PO DAILY 07/26/23 menthol 0.44 %-zinc oxide 20.6 % topical ointment (Calmoseptine) 1 applic topical 4X/DAY 07/26/23 ondansetron HCl 4 mg tablet 4 mg PO Q8H PRN nausea and vomiting 07/26/23 sodium phosphates 19 gram-7 gram/118 mL enema (Fleet Enema) 118 ml [place] DAILY PRN constipation 07/26/23 topiramate 25 mg tablet 25 mg PO DAILY 07/26/23 trazodone 50 mg tablet 50 mg PO QHS 07/26/23
--- NOTE | 2023-07-27 14:21 | CASEMGMT ---
Patient is ready for discharge back to [facility]. SW sent orders along with bipap settings to [facility]. SW called Physicians and arranged for patient to get picked up at 430 (earliest Physician's had to transport) via cot. SW notified RN, legal administrative secretary, and [facility]. RN notified patient. SW called patient's significant other and notified him. Plan: d/c back to [facility] under intermediate level of care. Physicians will transport patient via cot. Sheeba Lucio RELEASE SPECIALIST [place]
== END 2023-07-27 12:59 ==
LOC: ED 15:37 → PCU 15:55
PROVIDERS: Admitting Provider Family Medicine; Emergency Provider Emergency Medicine; PCP Internal Medicine; Visit Provider Hospitalist
DX: J96.22 Acute and chronic respiratory failure with hypercapnia (principal); J96.21 Acute and chronic respiratory failure with hypoxia; I11.0 Hypertensive heart disease with heart failure; I50.22 Chronic systolic (congestive) heart failure; J44.9 Chronic obstructive pulmonary disease, unspecified; Z68.43 Body mass index [BMI] 50.0-59.9, adult; E66.2 Morbid (severe) obesity with alveolar hypoventilation; E78.5 Hyperlipidemia, unspecified; Z79.52 Long term (current) use of systemic steroids; D64.9 Anemia, unspecified; K21.9 Gastro-esophageal reflux disease without esophagitis; G93.40 Encephalopathy, unspecified; G47.33 Obstructive sleep apnea (adult) (pediatric); M79.7 Fibromyalgia; J30.9 Allergic rhinitis, unspecified; Z87.891 Personal history of nicotine dependence; F41.9 Anxiety disorder, unspecified; R53.81 Other malaise; Z79.899 Other long term (current) drug therapy; Z91.199 Patient's noncompliance with other medical treatment and regimen due to unspecified reason; G89.4 Chronic pain syndrome
CPT/HCPCS: 36415; 36600; 80048; 80053; 82803; 83880; 84145; 85025; 87493; 87506; 93005; 94002; 94003; 94640; 94762; 96360; 96361; 96372; 99221; 99285; J7030; A4216; G0378

== ENCOUNTER → 2023-08-16 | Outpatient (REF) | payer MEDICARE, MEDICAID, SELFPAY ==
[2023-08-16 09:23] LABS: BUN 22 mg/dL (7-18); Calcium,Total 10.5 mg/dL (8.5-10.1); Carbon Dioxide > 45.0 mmol/L (21.0-32.0); Chloride 94 mmol/L (98-107); Creatinine, Serum 0.71 mg/dL (0.55-1.02); EST Glomerular Filtration Rate 89 mL/min (>60); Est Glom Filt Rate - Afr Amer 107 mL/min (>60); Glucose 97 mg/dL (74-106); Potassium 4.3 mmol/L (3.5-5.1); Sodium Level 139 mmol/L (136-145)
== END ==
LOC: OLS.SW 05:00
PROVIDERS: PCP Internal Medicine; Visit Provider Internal Medicine
DX: J44.9 Chronic obstructive pulmonary disease, unspecified (principal); J96.12 Chronic respiratory failure with hypercapnia; G93.41 Metabolic encephalopathy; G47.33 Obstructive sleep apnea (adult) (pediatric)
CPT/HCPCS: 36415; 80048

== ENCOUNTER → 2023-08-17 | Outpatient (REF) | payer MEDICARE, MEDICAID, SELFPAY ==
[2023-08-17 07:54] LABS: Hematocrit 33.5 % (37-47); Hemoglobin 9.3 g/dL (12.0-15.0); Mean Corp Hgb Conc 27.8 g/dL (32-36); Mean Corpuscular Hgb 26.1 pg (27.0-32.0); Mean Corpuscular Volume 93.8 fL (81-99); Mean Platelet Vol. 11.5 fl (6.2-12.0); Platelet Count 233 K/mm3 (150-450); RBC Distribution Width CV 13.4 % (11.6-14.6); RBC Distribution Width SD 45.8 fl (35.1-43.9); Red Blood Count 3.57 M/mm3 (4.2-5.4); White Blood Count 9.5 K/mm3 (4.4-11.0)
[2023-08-17 09:05] LABS: BUN 24 mg/dL (7-18); BUN/Creat Ratio 36.6 RATIO (10-20); Calcium,Total 10.9 mg/dL (8.5-10.1); Carbon Dioxide > 45.0 mmol/L (21.0-32.0); Chloride 92 mmol/L (98-107); Creatinine, Serum 0.66 mg/dL (0.55-1.02); EST Glomerular Filtration Rate 97 mL/min (>60); Est Glom Filt Rate - Afr Amer 118 mL/min (>60); Glucose 91 mg/dL (74-106); Potassium 4.6 mmol/L (3.5-5.1); Sodium Level 139 mmol/L (136-145)
== END ==
LOC: OLS.SW 05:00
PROVIDERS: PCP Internal Medicine; Visit Provider Internal Medicine
DX: J44.9 Chronic obstructive pulmonary disease, unspecified (principal); R53.83 Other fatigue
CPT/HCPCS: 36415; 80048; 85027

== ENCOUNTER → 2023-08-27 | Outpatient (REF) | payer MEDICARE, MEDICAID, SELFPAY ==
[2023-08-27 10:03] LABS: Vitamin D,25 Hydroxy 45.9 ng/mL
== END ==
LOC: OLS.SW 04:00
PROVIDERS: PCP Internal Medicine; Referring Provider Internal Medicine; Visit Provider Internal Medicine
DX: E83.52 Hypercalcemia (principal)
CPT/HCPCS: 36415; 82306; 83970

== ENCOUNTER → 2023-08-28 | Outpatient (REF) | payer MEDICARE, MEDICAID, SELFPAY ==
[2023-08-28 08:12] LABS: Ionized Calcium 5.34 mg/dL (4.36-5.20)
== END ==
LOC: OLS.SW 05:00
PROVIDERS: PCP Internal Medicine; Visit Provider Internal Medicine
DX: E83.52 Hypercalcemia (principal)
CPT/HCPCS: 82330

== ENCOUNTER → 2023-11-05 | Outpatient (REF) | payer MEDICAID, SELFPAY ==
[2023-11-05 08:29] LABS: Absolute Neutrophil Count 7.4 X10^3/uL (2.0-7.7); Basophil# 0.03 X10^3/uL; Basophil% 0.2 % (0-1); Eosinophil# 0.15 X10^3/uL; Eosinophils% 1.2 % (0-5); Hematocrit 35.1 % (37-47); Hemoglobin 10.2 g/dL (12.0-15.0); Lymphocyte % 32.6 % (19-41); Mean Corp Hgb Conc 29.1 g/dL (32-36); Mean Corpuscular Hgb 25.1 pg (27.0-32.0); Mean Corpuscular Volume 86.5 fL (81-99); Mean Platelet Vol. 12.2 fl (6.2-12.0); Monocyte# 0.99 X10^3/uL; Monocyte% 7.7 % (0-10); NRBC Flagged by Analyzer 0 % (0-5); Neutrophil # 7.35 X10^3/uL (2.7-7.7); Neutrophil % 57.1 % (47-70); Platelet Count 250 K/mm3 (150-450); RBC Distribution Width CV 14.4 % (11.6-14.6); RBC Distribution Width SD 45.4 fl (35.1-43.9); Red Blood Count 4.06 M/mm3 (4.2-5.4); White Blood Count 12.9 K/mm3 (4.4-11.0)
[2023-11-05 08:55] LABS: ALB/GLOB Ratio 0.7 RATIO (0.9-2.4); AST(SGOT) 9 U/L (15-37); Alanine Aminotransfer ALT/SGPT 10 U/L (13-56); Albumin, Serum 2.6 g/dL (3.2-5.0); Alkaline Phosphatase 80 U/L (45-117); Anion Gap 5 (5-15); BUN 19 mg/dL (7-18); BUN/Creat Ratio 28.5 RATIO (10-20); Chloride 98 mmol/L (98-107); Creatinine, Serum 0.67 mg/dL (0.55-1.02); EST Glomerular Filtration Rate 95 mL/min (>60); Est Glom Filt Rate - Afr Amer 116 mL/min (>60); Globulin 3.8 g/dL (2.2-4.2); Glucose 95 mg/dL (74-106); Potassium 3.5 mmol/L (3.5-5.1); Protein, Total 6.4 g/dL (6.4-8.2); Sodium Level 138 mmol/L (136-145)
== END | disposition home or self-care (01) ==
LOC: OLS.SW 05:00
PROVIDERS: PCP Internal Medicine; Visit Provider Internal Medicine
DX: D64.9 Anemia, unspecified (principal); J44.9 Chronic obstructive pulmonary disease, unspecified; I11.0 Hypertensive heart disease with heart failure; I50.9 Heart failure, unspecified; K58.0 Irritable bowel syndrome with diarrhea; E78.5 Hyperlipidemia, unspecified
CPT/HCPCS: 36415; 80053; 85025

== ENCOUNTER → 2023-11-12 | Outpatient (REF) | payer MEDICARE, MEDICAID, SELFPAY ==
[2023-11-12 08:50] LABS: Absolute Lymphocyte Count 2.48 X10^3/uL (0.83-4.51); Absolute Neutrophil Count 5.2 X10^3/uL (2.0-7.7); Basophil# 0.01 X10^3/uL; Basophil% 0.1 % (0-1); Eosinophil# 0.16 X10^3/uL; Eosinophils% 1.8 % (0-5); Hematocrit 35.4 % (37-47); Hemoglobin 9.8 g/dL (12.0-15.0); Lymphocyte # 2.48 X10^3/ul (0.83-4.51); Lymphocyte % 28.6 % (19-41); Mean Corp Hgb Conc 27.7 g/dL (32-36); Mean Corpuscular Hgb 24.7 pg (27.0-32.0); Mean Corpuscular Volume 89.4 fL (81-99); Mean Platelet Vol. 12.4 fl (6.2-12.0); Monocyte# 0.77 X10^3/uL; Monocyte% 8.9 % (0-10); NRBC Flagged by Analyzer 0 % (0-5); Neutrophil # 5.16 X10^3/uL (2.7-7.7); Neutrophil % 59.6 % (47-70); Platelet Count 237 K/mm3 (150-450); RBC Distribution Width CV 13.9 % (11.6-14.6); RBC Distribution Width SD 45.1 fl (35.1-43.9); Red Blood Count 3.96 M/mm3 (4.2-5.4); White Blood Count 8.7 K/mm3 (4.4-11.0)
== END ==
LOC: OLS.SW 05:00
PROVIDERS: PCP Internal Medicine; Visit Provider Internal Medicine
DX: I10 Essential (primary) hypertension (principal)
CPT/HCPCS: 36415; 85025

== ENCOUNTER 2023-11-23 14:46 | Inpatient (IN) | payer MEDICARE, MEDICAID, SELFPAY ==
[2023-11-23] VITALS (22 sets, daily range): BP systolic 123–147; BP diastolic 61–87; PULSE 81–100; RESP 12–24; TEMP 35.8–38.1; O2SAT 89–98; BMI 52.2; BMI 50.9
--- NOTE | 2023-11-23 15:21 | EKG12_ITS ---
Test Reason : SOB Blood Pressure : / mmHG Vent. Rate : 093 BPM Atrial Rate : 093 BPM P-R Int : 172 ms QRS Dur : 130 ms QT Int : 348 ms P-R-T Axes : 070 035 036 degrees QTc Int : 432 ms Normal sinus rhythm Right bundle branch block Possible Lateral infarct (cited on or before 03-MAY-2022) Abnormal ECG Confirmed by Wagner Lai ([id number]), dictionary editor GREG GARDNER ([id number]) on 11/26/2023 9:53:12 AM Referred By: Confirmed By:Wagner Lai
--- NOTE | 2023-11-23 15:24 | EDS_ITS ---
HPI History of Present Illness Chief Complaint: Shortness of Breath Informant: patient, EMS and SNF Narrative Narrative: 63-year-old female presenting to the emergency room with cough fever shortness of breath. Patient states that 3 weeks ago she was treated with an unknown antibiotic for pneumonia. She states that half the people had pneumonia the other half had the flu. Patient utilizes the term flu not to represent an influenza outbreak but to classify a generalized viral illness. She states that while she is on the antibiotic she improved but now she is worsened. She chronically wears home oxygen due to bad lungs. 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 However she is a smoker who has morbid obesity obstructive sleep apnea chronic hypoxemic respiratory failure COPD. Was noted by nursing here that the patient is utilizing 5 L nasal cannula has a temperature of 100.6. She notes a rhonchorous cough. [facility] Medical History Morbid obesity History of anemia History of hypertension History of morbid obesity History of obstructive sleep apnea History of COPD Anxiety Anemia Personal history of transient ischemic attack (TIA), and cerebral infarction without residual deficits Fibromyalgia Chronic anemia Chronic pain Vitamin D deficiency Seasonal allergies Depression HTN (hypertension) Hyperlipidemia Peptic ulcer disease GERD (gastroesophageal reflux disease) MARISOL (obstructive sleep apnea) Obesity hypoventilation syndrome Chronic respiratory failure with hypoxia HFrEF (heart failure with reduced ejection fraction) Morbid obesity UTI (urinary tract infection) TIA (transient ischemic attack) COPD (chronic obstructive pulmonary disease) Home Medications ?Medication ?Instructions ?Recorded ?Last Taken ?Type amitriptyline 25 mg tablet 25 mg PO QODAY DEPRESSION 05/03/22 04/15/23 History atorvastatin 20 mg tablet 20 mg PO QHS CHOLESTEROL 05/03/22 04/15/23 History famotidine 20 mg tablet 20 mg PO QHS GERD 05/03/22 04/15/23 History fluticasone propionate 50 2 spray intranasal BID PRN NASAL 05/03/22 05/28/22 History mcg/actuation nasal CONGESTION spray,suspension losartan 50 mg tablet 50 mg PO DAILY BLOOD PRESSURE 05/03/22 04/16/23 History montelukast 10 mg tablet 10 mg PO DAILY ALLERGIES 05/03/22 04/16/23 History omeprazole 20 mg tablet,delayed 20 mg PO DAILY GERD 05/03/22 04/16/23 History release roflumilast 500 mcg tablet 500 mcg PO DAILY ASTHMA 05/03/22 04/16/23 History (Daliresp) sertraline 100 mg tablet (Zoloft) 200 mg PO QHS DEPRESSION 05/03/22 04/16/23 History dicyclomine 10 mg capsule 10 mg PO 4X/DAY IRRITABLE BOWELS 05/05/22 04/16/23 Rx #1 cap albuterol sulfate 90 mcg/actuation 2 puff inhalation Q2H PRN SOB 09/08/22 04/12/23 History aerosol inhaler cholecalciferol (vitamin D3) 50 50 mcg PO DAILY SUPPLEMENT 04/16/23 04/16/23 History mcg (2,000 unit) tablet loperamide 2 mg capsule (Imodium 2 mg PO Q8H PRN DIARRHEA 04/16/23 04/09/23 History A-D) prednisone 10 mg tablet 10 mg PO DAILY COPD 04/16/23 04/16/23 History sertraline 50 mg tablet 50 mg PO DAILY DEPRESSION 04/16/23 04/16/23 History acetaminophen 325 mg tablet 650 mg PO Q4H PRN Fever, pain 07/26/23 Unknown History -01/16 acetaminophen 650 mg rectal 650 mg [place] Q4H PRN pain 07/26/23 Unknown History suppository albuterol sulfate 0.63 mg/3 mL 0.63 mg inhalation 4X/DAY PRN 07/26/23 Unknown History solution for nebulization shortness of breath or wheezing aluminum-mag hydroxide-simethicone 30 ml PO Q6H PRN Gastric Burning 07/26/23 Unknown History 400 mg-400 mg-40 mg/5 mL oral susp (Mag-Al Plus Extra Strength) buspirone 5 mg tablet 5 mg PO BID 07/26/23 Unknown History furosemide 20 mg tablet 40 mg PO DAILY 07/26/23 Unknown History guaifenesin 100 mg/5 mL oral 200 mg PO Q4H PRN cough 07/26/23 Unknown History liquid (Adult Tussin Chest Congestion) loratadine 10 mg tablet (Allergy 10 mg PO DAILY 07/26/23 Unknown History Relief (loratadine)) menthol 0.44 %-zinc oxide 20.6 % 1 applic topical 4X/DAY 07/26/23 Unknown History topical ointment (Calmoseptine) ondansetron HCl 4 mg tablet 4 mg PO Q8H PRN nausea and vomiting 07/26/23 Unknown History sodium phosphates 19 gram-7 118 ml [place] DAILY PRN constipation 07/26/23 Unknown History gram/118 mL enema (Fleet Enema) topiramate 25 mg tablet 25 mg PO DAILY 07/26/23 Unknown History trazodone 50 mg tablet 50 mg PO QHS 07/26/23 Unknown History gabapentin 100 mg capsule 200 mg PO BID 11/23/23 Unknown History melatonin 5 mg capsule mg 11/23/23 Unknown History Allergy/AdvReac Type Severity Reaction Status Date / Time aspirin Allergy Other Verified 07/26/23 13:33 black pepper (pepper) Allergy Other Verified 07/26/23 13:33 coconut Allergy Other Verified 07/26/23 13:33 codeine Allergy Other Verified 07/26/23 13:33 ibuprofen Allergy Other Verified 07/26/23 13:33 Influenza Virus Vaccines Allergy Other Verified 07/26/23 13:33 Penicillins Allergy Anaphylaxis Verified 07/26/23 13:33 rice Allergy Other Verified 07/26/23 13:33 tetanus and diphtheria Allergy Other Verified 07/26/23 13:33 toxoids Tetanus Vaccines and Toxoid Allergy Other Verified 07/26/23 13:33 Family History Mother CAD (coronary artery disease) COPD (chronic obstructive pulmonary disease) Hypertension Heart disease Father CAD (coronary artery disease) COPD (chronic obstructive pulmonary disease) Hypertension Heart disease Surgical History History of ankle surgery Social History housing: custodial Smoking Status: Former smoker alcohol intake: never substance use type: does not use ROS ROS ED Constitutional Constitutional ED: Reports chills and fever(s); Denies weight loss Eyes Eyes: Denies change in vision or diplopia ENT ENT ED: Denies ear pain, rhinorrhea or sore throat Cardiovascular Cardiovascular: Denies chest pain, orthopnea, palpitations or racing heartbeat Respiratory/Chest Respiratory/Chest: Reports cough and dyspnea; Denies orthopnea Gastrointestinal Gastrointestinal: Reports diarrhea; Denies abdominal pain, nausea or vomiting Genitourinary Genitourinary ED: Denies dysuria, hematuria or urinary frequency Musculoskeletal Musculoskeletal: Denies arthralgias, back pain or myalgias Integumentary Denies abscess or rash Neurologic Neurologic: Denies headache(s) or weakness Psychiatric Psychiatric: Denies anxiety, depression, suicidal ideation or suicidal thoughts Endocrine Endocrinology: Denies polydipsia, polyphagia or polyuria Allergic/Immunologic Allergic/Immunologic ED: Denies mouth swelling, tongue swelling or urticaria EXAM Physical Exam Const Vital Signs: 11/23/23 14:47 11/23/23 14:52 11/23/23 14:53 Temperature 100.6 F H 100.6 F H Temperature Source Oral Oral Pulse Rate 99 100 Respiratory Rate 21 H 21 H Respiratory Effort Normal Non-Labored Respiratory Depth Normal Respiratory Pattern Normal Blood Pressure 137/75 H 137/75 H Blood Pressure Mean 95 95 Pulse Ox 92 91 Oxygen Delivery Method Nasal Cannula Nasal Cannula Nasal Cannula Oxygen Flow Rate (L/min) 5 5 5 Fraction of Inspired Oxygen (FIO2) 11/23/23 15:21 11/23/23 15:33 11/23/23 15:33 Temperature Temperature Source Pulse Rate 96 Respiratory Rate 18 Respiratory Effort Respiratory Depth Respiratory Pattern Normal Blood Pressure Blood Pressure Mean Pulse Ox 95 96 Oxygen Delivery Method Nasal Cannula Nasal Cannula Oxygen Flow Rate (L/min) 6 5 Fraction of Inspired Oxygen (FIO2) 11/23/23 15:52 11/23/23 17:00 11/23/23 17:28 Temperature 98.9 F 97.3 F L 96.4 F L Temperature Source Temporal Temporal Temporal Pulse Rate 93 94 91 Respiratory Rate 18 18 18 Respiratory Effort Respiratory Depth Respiratory Pattern Blood Pressure 134/87 H 132/64 H 126/61 H Blood Pressure Mean 102 86 82 Pulse Ox 94 95 95 Oxygen Delivery Method Nasal Cannula Nasal Cannula Nasal Cannula Oxygen Flow Rate (L/min) 6 6 5 Fraction of Inspired Oxygen (FIO2) 11/23/23 18:00 11/23/23 18:28 11/23/23 19:00 Temperature 97.1 F L 97.6 F L Temperature Source Temporal Temporal Pulse Rate 90 90 91 Respiratory Rate 14 18 16 Respiratory Effort Respiratory Depth Respiratory Pattern Normal Blood Pressure 123/64 H 123/64 H Blood Pressure Mean 83 83 Pulse Ox 94 89 94 Oxygen Delivery Method Nasal Cannula Bi-pap Oxygen Flow Rate (L/min) 5 Fraction of Inspired Oxygen (FIO2) 50 Positive well nourished, well developed and obese General Appearance ED: well developed and NAD Nutritional Appearance: obese HEENT Reports normocephalic, head/scalp atraumatic and moist mucous membranes Eyes PERRL and EOMs intact bilaterally Neck no lymphadenopathy, supple and no JVD Resp normal respiratory effort Auscultation: rhonchi throughout and wheezes expiratory wheezes Cardio regular rate, regular rhythm and no murmurs Rate: tachycardic GI normal to inspection, nondistended, normoactive bowel sounds and non-tender Palpation: soft Back/Spine no CVA tenderness and normal ROM Extremity normal to inspection General Extremety ED: Negative for edema General Extremity: Negative for edema Neuro oriented x3 and CN's II-XII intact bilaterally Sensorium / Orientation: alert Motor Exam: strength 5/5 throughout Psych mental status grossly normal Mood & Affect: Negative for depressed or tearful Skin no rashes or lesions noted and no wounds MDM MDM MDM Narrative Medical decision making narrative: Differential diagnosis includes but not limited to viral syndrome acute bronchitis COPD exacerbation pneumonia pleural effusion pneumothorax. Patient is COVID-positive white count 7.7 hemoglobin 9.7 platelet count of 218 creatinine 0.72. Glucose 191 normal lactic acid CO2 is 42 on her basic panel my independent interpretation of the chest x-ray is right sided pneumonia however this is a poor quality study with significant rotation. CTA of the chest was obtained which demonstrates pneumonia particularly on the right. No obvious pulmonary embolism. Patient received breathing treatments Rocephin and azithromycin and Tylenol. I also gave her a dose of dexamethasone. A ABG was obtained after discussion with the hospitalist. Her pCO2 was 111. She is slightly acidotic. She was placed on BiPAP. Patient is significantly morbidly obese with poor underlying lung health. She has very little reserve for decompensation. Plan is to place her in the ICU tonight. History & Record Review Discussion w/independent historian: EMS personnel, Patient and Other (SNF) Lab Data Attestation: I reviewed the patient's lab results. Labs: Laboratory Results - last 24 hr 11/23/23 15:05 WBC 7.7 RBC 3.94 L Hgb 9.7 L Hct 34.6 L MCV 87.8 MCH 24.6 L MCHC 28.0 L RDW Std Deviation 46.2 H RDW Coeff of David 14.3 Plt Count 218 MPV 13.0 H Immature Gran % (Auto) 1.700 H Neut % (Auto) 79.8 H Lymph % (Auto) 11.3 L [place] % (Auto) 6.6 Eos % (Auto) 0.3 Baso % (Auto) 0.3 Absolute Neuts (auto) 6.2 Absolute Lymphs (auto) 0.87 Nucleated RBC % 0 PT 13.5 INR 1.0 APTT 28.6 Sodium 141 Potassium 4.5 Chloride 98 Carbon Dioxide 42.0 H Anion Gap 1 L BUN 20 H Creatinine 0.72 Est GFR (MDRD) Af Amer 106 Est GFR (MDRD) Non-Af 87 BUN/Creatinine Ratio 27.8 H Glucose 191 H Lactic Acid 1.5 Calcium 9.9 Total Bilirubin 0.20 AST 10 L ALT 13 Alkaline Phosphatase 79 Total Protein 6.6 Albumin 2.3 L Globulin 4.3 H Albumin/Globulin Ratio 0.5 L ABG Data ABG results: ABG 11/23/23 18:15 Specimen Type ART Sample Site L Radial pH 7.25 L Bicarbonate Actual 48.8 H Total CO2 > 50 Base Excess 22 H O2 Saturation 90 L O2 % 5.0 ABG pCO2 111.4 H* ABG pO2 75 José Miguel Test Positive O2 Delivery Device Cannula Vent Mode Not entered Crit Call To/Read Back Yes Blood Gas Notified Whom Pawel Blood Gas Notified Time 18:16:29 Radiography Diagnostic Testing: Clinical Impression(s) from Imaging Studies Chest X-Ray 11/23/23 15:55 IMPRESSION: Moderate volume loss of the right lung. Right pulmonary opacity possibly due to consolidation and effusion.. Electronically Signed: Garry Haro DO at 17:03 EDT , Chest CTA 11/23/23 16:04 IMPRESSION: No demonstrated pulmonary embolism or arterial dissection. Elevated right hemidiaphragm. Volume loss of the right lung with mild effusion and diffuse consolidation/atelectasis. Electronically Signed: Garry Haro DO at 17:17 EDT , EKG Initial EKG: Attestation: I personally reviewed and interpreted this EKG as follows: Comments: Normal sinus rhythm ventricular rate 93 bpm right bundle branch block noted Management Discussion w/another healthcare provider: Hospitalist Critical Care Time Critical Care Time: Yes Critical care time (excluding procedures): 30-74 minutes (35 min), Including time spent:, Discussing w/Patient &/or Family/Commercial Loan Coordinator, Discussing w/Consultants, Arranging Admission or Transfer and Performing Direct Patient Care at Bedside Discharge Plan Dx/Rx/DC Orders Clinical Impression: COVID-19, Morbid obesity, Acute and chronic respiratory failure with hypoxia, Acute on chronic respiratory acidosis, Pneumonia Disposition Disposition: Acute Care Hospital [facility] Discharge Date/Time: 11/23/23 20:02
[2023-11-23] MEDS: Albuterol 2.5 MG/3 ML VIAL.NEB. INHALATION (15:32)
[2023-11-23] MEDS: Ipratropium/Albuterol Sulfate 3 ML AMPUL.NEB INHALATION ×2 (15:32→23:44)
[2023-11-23] MEDS: Acetaminophen 500 MG Tablet 1000 MG PO (15:37)
[2023-11-23 15:52] LABS: Partial Thromboplast Time 28.6 Seconds (24.1-36.2); Prothrombin Time (Protime)PT. 13.5 SECONDS (11.7-14.9)
[2023-11-23 15:53] LABS: Absolute Lymphocyte Count 0.87 X10^3/uL (0.83-4.51); Absolute Neutrophil Count 6.2 X10^3/uL (2.0-7.7); Basophil# 0.02 X10^3/uL; Basophil% 0.3 % (0-1); Eosinophil# 0.02 X10^3/uL; Eosinophils% 0.3 % (0-5); Hematocrit 34.6 % (37-47); Hemoglobin 9.7 g/dL (12.0-15.0); Lymphocyte # 0.87 X10^3/ul (0.83-4.51); Lymphocyte % 11.3 % (19-41); Mean Corpuscular Hgb 24.6 pg (27.0-32.0); Mean Corpuscular Volume 87.8 fL (81-99); Monocyte# 0.51 X10^3/uL; Monocyte% 6.6 % (0-10); NRBC Flagged by Analyzer 0 % (0-5); Neutrophil # 6.15 X10^3/uL (2.7-7.7); Neutrophil % 79.8 % (47-70); Platelet Count 218 K/mm3 (150-450); RBC Distribution Width CV 14.3 % (11.6-14.6); RBC Distribution Width SD 46.2 fl (35.1-43.9); Red Blood Count 3.94 M/mm3 (4.2-5.4); White Blood Count 7.7 K/mm3 (4.4-11.0)
--- NOTE | 2023-11-23 15:55 | RAD_ITS ---
INDICATION: fever and cough EXAMINATION/TECHNIQUE: X-RAY - XR Chest 1 View COMPARISON: April 16, 2023 FINDINGS: LINES/DEVICES: None. LUNGS: Moderate volume loss of the right lung. Right pulmonary opacity possibly due to consolidation and effusion.. No pneumothorax. MEDIASTINUM AND CARDIOVASCULAR STRUCTURES: Cardiac silhouette not enlarged. Central airways and mediastinal contour are unremarkable. BONES AND SOFT TISSUES: Unremarkable. RAD/Chest 1 View (Portable) IMPRESSION: Moderate volume loss of the right lung. Right pulmonary opacity possibly due to consolidation and effusion.. Electronically Signed: Garry Haro DO at 17:03 EDT Reading Location ID and State: [facility] / [place] Tel [phone], Service support ,
[2023-11-23 15:56] LABS: ALB/GLOB Ratio 0.5 RATIO (0.9-2.4); AST(SGOT) 10 U/L (15-37); Alanine Aminotransfer ALT/SGPT 13 U/L (13-56); Albumin, Serum 2.3 g/dL (3.2-5.0); Alkaline Phosphatase 79 U/L (45-117); Anion Gap 1 (5-15); BUN 20 mg/dL (7-18); BUN/Creat Ratio 27.8 RATIO (10-20); Calcium,Total 9.9 mg/dL (8.5-10.1); Chloride 98 mmol/L (98-107); Creatinine, Serum 0.72 mg/dL (0.55-1.02); EST Glomerular Filtration Rate 87 mL/min (>60); Est Glom Filt Rate - Afr Amer 106 mL/min (>60); Globulin 4.3 g/dL (2.2-4.2); Glucose 191 mg/dL (74-106); Potassium 4.5 mmol/L (3.5-5.1); Protein, Total 6.6 g/dL (6.4-8.2); Sodium Level 141 mmol/L (136-145)
[2023-11-23 16:01] LABS: Lactic Acid 1.5 mmol/L (0.4-1.9)
--- NOTE | 2023-11-23 16:04 | CT_ITS ---
STUDY: CTA CHEST REASON FOR EXAM: Female, 63 years old. hypoxia pulmonary embolism RADIATION DOSAGE (If Supplied By Facility): CTDIvol = ( 36.66 ) mGy, DLP = ( 828.84 ) mGycm TECHNIQUE: The examination was performed with the intravenous administration of IV 100mL Isovue-370. Post-processing of the angiographic images was performed, with multiplanar reformation and 3D reconstruction. The protocol utilizes one or more of the following dose reduction techniques: automated exposure control, adjustment of mA and/or kV according to patient size,and/or use of iterative reconstruction technique. COMPARISON: FINDINGS: Normal enhancement of the main pulmonary artery and right and left pulmonary arteries. Normal enhancement of the bilateral peripheral pulmonary arteries. There is no demonstrated pulmonary embolism. Normal thoracic aorta and visualized great vessels. There is no demonstrated aortic dissection. Normal heart and pericardium. Right shifted mediastinum. Normal hilar regions. Normal visualized trachea and bronchi. Elevated right hemidiaphragm. Volume loss of the right lung with mild effusion and diffuse consolidation/atelectasis. Normal chest wall structures. Normal osseous structures. Cholelithiasis. CT/CTA Chest W/WO Contrast IMPRESSION: No demonstrated pulmonary embolism or arterial dissection. Elevated right hemidiaphragm. Volume loss of the right lung with mild effusion and diffuse consolidation/atelectasis. Electronically Signed: Garry Haro DO at 17:17 EDT ,
[2023-11-23] MEDS: dexAMETHasone 10 MG/ML Vial IV (17:19)
[2023-11-23] MEDS: Ceftriaxone 1 GM/50 ML BAG IV (17:28)
--- NOTE | 2023-11-23 17:57 | PCM.HP.STD ---
HPI - General General Date of Admission: 11/23/23 Date of Service: 11/23/23 Chief Complaint: Shortness of Breath HPI Narrative HE TRAYLOR, is a 63 F who presented from a local [facility] facility ([facility]) with cough, fever, and shortness of breath. The patient has a history of chronic hypoxic and hypercapnic respiratory failure and at baseline reportedly wears 3 L however was not able to confirm this 100%. She reported on arrival that about 3 weeks ago that she was treated with an antibiotic for pneumonia. She reported that many people had been ill at the facility at which she resides. She reported that while she was on antibiotics her symptoms improved but when she stopped antibiotics her symptoms returned and now she is worsened. In addition to her COPD, she has a history of morbid obesity and obstructive sleep apnea with chronic hypercapnia. At the time of my evaluation the patient was not able to give any further history as she was on BiPAP due to worsening hypercapnia. Vital signs on presentation showed a temperature of 100.6, respiratory rate was 21, heart rate was 99, blood pressure was 137/75 and pulse ox was 91% on 5 L nasal cannula. Baseline is reportedly 3 L. CBC shows a normal white count with a stable anemia having a hemoglobin of 9.7. She did have a left shift with a 79.8% neutrophilia coags were normal. Chemistry panel showed chronic elevated serum bicarbonate 42, normal renal function and a glucose of 191. Her lactic acid was normal at 1.5. Liver functions were unremarkable. ABG was obtained and she was found to have a pH of 7.25, pCO2 of 111.4 (baseline is about 75-80) and a pO2 of 75 on 6 L nasal cannula. Chest x-ray showed moderate volume loss in the right lung with pulmonary opacities on the right side with possible consolidation and effusion. CTA was obtained and showed no pulmonary embolus or artery dissection, elevated right hemidiaphragm with volume loss of the right lung with mild effusion and diffuse consolidation. COVID-19 was found to be positive on PCR. In the emergency department she was given Tylenol for her fever, nebulizers, IV Decadron for her COVID-19 infection and antibiotics with ceftriaxone and azithromycin. I will broaden these on the floor due to her history. Blood cultures were sent prior to admission. [facility] Medical History Morbid obesity History of anemia History of hypertension History of morbid obesity History of obstructive sleep apnea History of COPD Anxiety Anemia Personal history of transient ischemic attack (TIA), and cerebral infarction without residual deficits Fibromyalgia Chronic anemia Chronic pain Vitamin D deficiency Seasonal allergies Depression HTN (hypertension) Hyperlipidemia Peptic ulcer disease GERD (gastroesophageal reflux disease) MARISOL (obstructive sleep apnea) Obesity hypoventilation syndrome Chronic respiratory failure with hypoxia HFrEF (heart failure with reduced ejection fraction) Morbid obesity UTI (urinary tract infection) TIA (transient ischemic attack) COPD (chronic obstructive pulmonary disease) Home Medications ?Medication ?Instructions ?Recorded ?Last Taken ?Type amitriptyline 25 mg tablet 25 mg PO QODAY DEPRESSION 05/03/22 04/15/23 History atorvastatin 20 mg tablet 20 mg PO QHS CHOLESTEROL 05/03/22 04/15/23 History famotidine 20 mg tablet 20 mg PO QHS GERD 05/03/22 04/15/23 History fluticasone propionate 50 2 spray intranasal BID PRN NASAL 05/03/22 05/28/22 History mcg/actuation nasal CONGESTION spray,suspension losartan 50 mg tablet 50 mg PO DAILY BLOOD PRESSURE 05/03/22 04/16/23 History montelukast 10 mg tablet 10 mg PO DAILY ALLERGIES 05/03/22 04/16/23 History omeprazole 20 mg tablet,delayed 20 mg PO DAILY GERD 05/03/22 04/16/23 History release roflumilast 500 mcg tablet 500 mcg PO DAILY ASTHMA 05/03/22 04/16/23 History (Daliresp) sertraline 100 mg tablet (Zoloft) 200 mg PO QHS DEPRESSION 05/03/22 04/16/23 History dicyclomine 10 mg capsule 10 mg PO 4X/DAY IRRITABLE BOWELS 05/05/22 04/16/23 Rx #1 cap albuterol sulfate 90 mcg/actuation 2 puff inhalation Q2H PRN SOB 09/08/22 04/12/23 History aerosol inhaler cholecalciferol (vitamin D3) 50 50 mcg PO DAILY SUPPLEMENT 04/16/23 04/16/23 History mcg (2,000 unit) tablet loperamide 2 mg capsule (Imodium 2 mg PO Q8H PRN DIARRHEA 04/16/23 04/09/23 History A-D) prednisone 10 mg tablet 10 mg PO DAILY COPD 04/16/23 04/16/23 History sertraline 50 mg tablet 50 mg PO DAILY DEPRESSION 04/16/23 04/16/23 History acetaminophen 325 mg tablet 650 mg PO Q4H PRN Fever, pain 07/26/23 Unknown History -01/16 acetaminophen 650 mg rectal 650 mg [place] Q4H PRN pain 07/26/23 Unknown History suppository albuterol sulfate 0.63 mg/3 mL 0.63 mg inhalation 4X/DAY PRN 07/26/23 Unknown History solution for nebulization shortness of breath or wheezing aluminum-mag hydroxide-simethicone 30 ml PO Q6H PRN Gastric Burning 07/26/23 Unknown History 400 mg-400 mg-40 mg/5 mL oral susp (Mag-Al Plus Extra Strength) buspirone 5 mg tablet 5 mg PO BID 07/26/23 Unknown History furosemide 20 mg tablet 40 mg PO DAILY 07/26/23 Unknown History guaifenesin 100 mg/5 mL oral 200 mg PO Q4H PRN cough 07/26/23 Unknown History liquid (Adult Tussin Chest Congestion) loratadine 10 mg tablet (Allergy 10 mg PO DAILY 07/26/23 Unknown History Relief (loratadine)) menthol 0.44 %-zinc oxide 20.6 % 1 applic topical 4X/DAY 07/26/23 Unknown History topical ointment (Calmoseptine) ondansetron HCl 4 mg tablet 4 mg PO Q8H PRN nausea and vomiting 07/26/23 Unknown History sodium phosphates 19 gram-7 118 ml [place] DAILY PRN constipation 07/26/23 Unknown History gram/118 mL enema (Fleet Enema) topiramate 25 mg tablet 25 mg PO DAILY 07/26/23 Unknown History trazodone 50 mg tablet 50 mg PO QHS 07/26/23 Unknown History gabapentin 100 mg capsule 200 mg PO BID 11/23/23 Unknown History melatonin 5 mg capsule mg 11/23/23 Unknown History Allergy/AdvReac Type Severity Reaction Status Date / Time aspirin Allergy Other Verified 07/26/23 13:33 black pepper (pepper) Allergy Other Verified 07/26/23 13:33 coconut Allergy Other Verified 07/26/23 13:33 codeine Allergy Other Verified 07/26/23 13:33 ibuprofen Allergy Other Verified 07/26/23 13:33 Influenza Virus Vaccines Allergy Other Verified 07/26/23 13:33 Penicillins Allergy Anaphylaxis Verified 07/26/23 13:33 rice Allergy Other Verified 07/26/23 13:33 tetanus and diphtheria Allergy Other Verified 07/26/23 13:33 toxoids Tetanus Vaccines and Toxoid Allergy Other Verified 07/26/23 13:33 Family History Mother CAD (coronary artery disease) COPD (chronic obstructive pulmonary disease) Hypertension Heart disease Father CAD (coronary artery disease) COPD (chronic obstructive pulmonary disease) Hypertension Heart disease Surgical History History of ankle surgery Social History housing: half-way Smoking Status: Former smoker alcohol intake: never substance use type: does not use ROS Review of Systems ROS Unobtainable: other Details: On BiPAP for respiratory failure Vital Signs Vital Signs Vital Signs: 11/23/23 14:47 11/23/23 14:52 11/23/23 14:53 Temperature 100.6 F H 100.6 F H Temperature Source Oral Oral Pulse Rate 99 100 Respiratory Rate 21 H 21 H Respiratory Effort Normal Non-Labored Respiratory Depth Normal Respiratory Pattern Normal Blood Pressure 137/75 H 137/75 H Blood Pressure Mean 95 95 Pulse Ox 92 91 Oxygen Delivery Method Nasal Cannula Nasal Cannula Nasal Cannula Oxygen Flow Rate (L/min) 5 5 5 11/23/23 15:21 11/23/23 15:33 11/23/23 15:33 Temperature Temperature Source Pulse Rate 96 Respiratory Rate 18 Respiratory Effort Respiratory Depth Respiratory Pattern Normal Blood Pressure Blood Pressure Mean Pulse Ox 95 96 Oxygen Delivery Method Nasal Cannula Nasal Cannula Oxygen Flow Rate (L/min) 6 5 11/23/23 15:52 11/23/23 17:00 11/23/23 17:28 Temperature 98.9 F 97.3 F L 96.4 F L Temperature Source Temporal Temporal Temporal Pulse Rate 93 94 91 Respiratory Rate 18 18 18 Respiratory Effort Respiratory Depth Respiratory Pattern Blood Pressure 134/87 H 132/64 H 126/61 H Blood Pressure Mean 102 86 82 Pulse Ox 94 95 95 Oxygen Delivery Method Nasal Cannula Nasal Cannula Nasal Cannula Oxygen Flow Rate (L/min) 6 6 5 Physical Exam Const no apparent distress and well nourished; Negative for average body habitus or healthy appearing Constitutional Narrative: Super morbidly obese, white female who appears older than stated age, lying in bed sleeping on BiPAP, no signs of respiratory distress at this time, appears comfortable, does appear ill HEENT normocephalic, head/scalp atraumatic and moist oral mucous membranes HEENT Narrative: Mallampati 4, edentulous, no thrush Eyes Eyes Narrative: Patient sleeping eyes closed unable to examine Neck no lymphadenopathy and supple Neck Narrative: Large thick neck with redundant tissue, trachea midline, no thyroid enlargement noted Resp No normal respiratory effort, no retractions, no use of accessory muscles and No clear to auscultation bilaterally Resp Narrative: Diffuse scattered and expiratory wheezes with rhonchi in the right base Auscultation: rhonchi and wheezes; Negative for crackles Cardio regular rhythm, S1 normal heart sound, S2 normal heart sound, no murmurs, no rub, no gallops and no clicks Cardio Narrative: Mild tachycardia GI normal to inspection, nondistended, normoactive bowel sounds, soft to palpation and non-tender GI Narrative: Large protuberant abdomen Extremity no clubbing, cyanosis or edema Extremity Narrative: Pedal and radial pulses are 2+ Skin no jaundice, no petechiae and no mottling Skin Narrative: Candidiasis noted in skin folds, skin is pale Neuro Neuro Narrative: Unable to fully examine as patient sleeping on BiPAP however she does move extremities spontaneously throughout exam Psych Psych Narrative: Unable to assess due to patient sleeping on BiPAP Results Lab / Micro Data 11/23/23 15:05 11/23/23 15:05 Labs: Laboratory Results - last 24 hr 11/23/23 15:05: WBC 7.7, RBC 3.94 L, Hgb 9.7 L, Hct 34.6 L, MCV 87.8, MCH 24.6 L, MCHC 28.0 L, RDW Std Deviation 46.2 H, RDW Coeff of David 14.3, Plt Count 218, MPV 13.0 H, Immature Gran % (Auto) 1.700 H, Neut % (Auto) 79.8 H, Lymph % (Auto) 11.3 L, [place] % (Auto) 6.6, Eos % (Auto) 0.3, Baso % (Auto) 0.3, Absolute Neuts (auto) 6.2, Absolute Lymphs (auto) 0.87, Nucleated RBC % 0, PT 13.5, INR 1.0, APTT 28.6, Sodium 141, Potassium 4.5, Chloride 98, Carbon Dioxide 42.0 H, Anion Gap 1 L, BUN 20 H, Creatinine 0.72, Est GFR (MDRD) Af Amer 106, Est GFR (MDRD) Non-Af 87, BUN/Creatinine Ratio 27.8 H, Glucose 191 H, Lactic Acid 1.5, Calcium 9.9, Total Bilirubin 0.20, AST 10 L, ALT 13, Alkaline Phosphatase 79, Total Protein 6.6, Albumin 2.3 L, Globulin 4.3 H, Albumin/Globulin Ratio 0.5 L Micro: Microbiology 11/23/23 15:38 Mucosa - Nose SARS-CoV-2, Influenza & RSV (PCR) - Final SARS-CoV-2 (COVID 19) Imaging Radiology Impression Chest X-Ray 11/23/23 15:55 IMPRESSION: Moderate volume loss of the right lung. Right pulmonary opacity possibly due to consolidation and effusion.. Electronically Signed: Garry Haro DO at 17:03 EDT , Chest CTA 11/23/23 16:04 IMPRESSION: No demonstrated pulmonary embolism or arterial dissection. Elevated right hemidiaphragm. Volume loss of the right lung with mild effusion and diffuse consolidation/atelectasis. Electronically Signed: Garry Haro DO at 17:17 EDT , Assessment & Plan Assessment/Plan (1) Acute on chronic respiratory failure with hypoxia and hypercapnia: (2) COVID-19: (3) Right lower lobe pneumonia: (4) Respiratory acidosis: PLAN: Plan Acute on chronic hypoxic and hypercapnic respiratory failure secondary to acute COVID-19 infection plus right lower lobe pneumonia -Highly suspect healthcare acquired pneumonia as she is a resident in [facility] facility and failed previous outpatient treatment -Decadron 6 mg daily x 10 days-day 1 of 10 -Remdesivir-day 1 of 5 -Will cover with broad-spectrum antibiotics while cultures are pending with vancomycin, Levaquin (due to penicillin anaphylactic allergy), and azithromycin -Check sputum culture if patient able to produce -Check strep pneumo Legionella antigens -Repeat ABG at 2030 to assess treatment with BiPAP -Baseline pCO2 appears to be between 75 and 80--> 111 on ABG at admission -Continue BiPAP through the night and reevaluate tomorrow for BiPAP weaning -Patient will at the very least need BiPAP with naps and nocturnally after continuous use is no longer required -Scheduled and as needed nebulizers -I-S and Acapella once off BiPAP -High risk for requiring intubation--> it is verified that patient is a full code -N.p.o. for now except for sips and chips and p.o. medications -Consult pulmonary and critical care medicine Generalized weakness/debility -PT/OT consultation -Case management/social work consultation for assistance with discharge planning Chronic anemia -Hemoglobin stable Hyperglycemia -No documentation of DM-2 -Check hemoglobin A1c as blood sugar on presentation was 191 nonfasting -Could be stress response or new diabetes diagnosis -SSI for now but may need basal insulin ordered while she is on steroids Essential hypertension/hyperlipidemia -Continue home Lasix -Continue home atorvastatin -As needed hydralazine for systolic blood pressure greater than 160 -It appears the patient used to be on losartan but currently is not taking Vitamin D deficiency -Restart cholecalciferol at discharge Irritable bowel syndrome -Continue home dicyclomine History of constipation -As needed medication available Chronic pain/fibromyalgia -Continue home medications History of GERD/peptic ulcer disease -Hold home famotidine -IV Protonix 40 daily while on continuous BiPAP and then transition to p.o. History of TIA -Patient is not on any antiplatelet therapy -Reason is unclear however may be related to previous peptic ulcer disease MARISOL -Will need to continue BiPAP with naps and nocturnally after continuous needs have abated Super morbid obesity -Complicates treatment, prognosis, outcomes -Increases risk for intubation DVT prophylaxis -48 Lovenox SQ twice daily -CODE STATUS -Full code per paperwork from nursing facility Critical care time greater than 36 minutes without procedures Charges/Coding Procedures Hospitalists Procedures: 30686 Critical Care 1st Hr
[2023-11-23] MEDS: Azithromycin 500 MG in Dextrose 5%-Water (250mL Bag) 250 ML 250 MG IV (18:11)
--- NOTE | 2023-11-23 18:35 | CPS ---
[1812] Critical ABG results: pH=7.249 vLS8=858.4 pO2=75.0 HCO3-=48.8 SpO2=90.2
[2023-11-23 18:59] LABS: Allen Test Positive; Base Excess 22 mmol/L (-2 to +2); Bicarbonate 48.8 mmol/L (22-26); Blood Gas Specimen Type ART; Mode Not entered; O2 Delivery Device Cannula; PO2 75 mmHG (75-100); SITE L Radial; SO2 90 % (95-99); Total Carbon Dioxide > 50 mmol/L; pCO2 111.4 mmHg (35-45); pH 7.25 (7.35-7.45)
--- NOTE | 2023-11-23 19:28 | ED.RN ---
report called to vasile gage.
--- NOTE | 2023-11-23 20:01 | ED.RN ---
pt was incontinent of urine prior to transfer to ICU, pt was given pericare and linen change with help of Pawan RT.
[2023-11-23 20:51] LABS: Base Excess 14 mmol/L (-2 to +2); Bicarbonate 41.4 mmol/L (22-26); Blood Gas Specimen Type ART; Mode Not entered; O2 Delivery Device BiPAP; PEEP 10; PO2 89 mmHG (75-100); RR 12; SITE L Radial; SO2 94 % (95-99); Total Carbon Dioxide 44 mmol/L; pCO2 92.3 mmHg (35-45); pH 7.26 (7.35-7.45)
[2023-11-23] MEDS: levoFLOXacin IV 750 MG/150 ML BAG 100 MG IV (21:27)
[2023-11-23] MEDS: Menthol/Lanolin/Calamine/Znox 113 GM Tube 1 APPLIC TOPICAL (22:27)
[2023-11-23] MEDS: busPIRone 5 MG Tablet PO (22:28)
[2023-11-23] MEDS: Gabapentin 100 MG Capsule 200 MG PO (22:28)
[2023-11-23] MEDS: Dicyclomine 10 MG Capsule PO (22:28)
[2023-11-23] MEDS: Enoxaparin 40 MG/0.4 ML Syringe SC (22:29)
[2023-11-23] MEDS: Sertraline 100 MG Tablet 200 MG PO (22:31)
[2023-11-23] MEDS: Atorvastatin Calcium 20 MG Tablet PO (22:59)
[2023-11-23] MEDS: Remdesivir 200 MG in 0.9% Normal Saline (250mL Bag) 210 ML 250 MG IV (23:31)
[2023-11-23] MEDS: Vancomycin HCl 2,000 MG in 0.9% Normal Saline (500mL Bag) 500 ML 250 MG IV (23:32)
[2023-11-24] VITALS (36 sets, daily range): BP systolic 94–145; BP diastolic 53–95; PULSE 73–94; RESP 12–22; TEMP 36.1–36.9; O2SAT 84–100; BMI 51.7
[2023-11-24 00:10] LABS: Base Excess 17 mmol/L (-2 to +2); Bicarbonate 43.2 mmol/L (22-26); Blood Gas Specimen Type ART; Mode Not entered; O2 Delivery Device BiPAP; PEEP 10; PO2 140 mmHG (75-100); RR 12; SITE L Radial; SO2 99 % (95-99); Total Carbon Dioxide 46 mmol/L; pCO2 85.5 mmHg (35-45); pH 7.31 (7.35-7.45)
[2023-11-24 00:30] LABS: Alkaline Phosphatase 78 U/L (45-117)
--- NOTE | 2023-11-24 01:15 | PCM.RX.CS ---
Consult Antibiotic Management Pharmacy has been consulted to manage selected antibiotic: Vancomycin Type of Intervention Type of Consult: New start Suspected Infection Suspected Infection: Pneumonia Labs Labs: Sodium 141 mmol/L (136-145) 11/23/23 15:05 Potassium 4.5 mmol/L (3.5-5.1) 11/23/23 15:05 Chloride 98 mmol/L (98-107) 11/23/23 15:05 Carbon Dioxide 42.0 mmol/L (21.0-32.0) H 11/23/23 15:05 Anion Gap 1 (5-15) L 11/23/23 15:05 BUN 20 mg/dL (7-18) H 11/23/23 15:05 Creatinine 0.72 mg/dL (0.55-1.02) 11/23/23 15:05 Est GFR (MDRD) Af Amer 106 mL/min (>60) 11/23/23 15:05 Est GFR (MDRD) Non-Af 87 mL/min (>60) 11/23/23 15:05 BUN/Creatinine Ratio 27.8 RATIO (10-20) H 11/23/23 15:05 Glucose 191 mg/dL (74-106) H 11/23/23 15:05 Microbiology Microbiology: Microbiology 11/23/23 15:38 Mucosa - Nose SARS-CoV-2, Influenza & RSV (PCR) - Final SARS-CoV-2 (COVID 19) Dosing Weight Weight used for dosin kg Estimated Creatinine Clearance Estimated Creatinine Clearance: 123 Goal Trough Goal Trough: 15-20 mcg/mL Pharmacy Plan for Drug Dosing Pharmacy Plan for Drug Dosing: Pharmacy Service will continue to monitor and adjust dosing as required. Follow-Up Labs Follow-Up Labs: Trough: Vancomycin Date/Time Labs Ordered Labs to be done on [date and time ordered]: 11/24/23 @2300
[2023-11-24] MEDS: Ipratropium/Albuterol Sulfate 3 ML AMPUL.NEB INHALATION ×6 (02:34→22:58)
[2023-11-24] MEDS: Vancomycin HCl 1,500 MG in 0.9% Normal Saline (500mL Bag) 500 ML 250 MG IV ×2 (06:20→15:51)
[2023-11-24 06:24] LABS: Absolute Lymphocyte Count 0.86 X10^3/uL (0.83-4.51); Absolute Neutrophil Count 4.1 X10^3/uL (2.0-7.7); Basophil# 0.01 X10^3/uL; Basophil% 0.2 % (0-1); Hematocrit 34.3 % (37-47); Hemoglobin 9.6 g/dL (12.0-15.0); Lymphocyte # 0.86 X10^3/ul (0.83-4.51); Lymphocyte % 15.7 % (19-41); Mean Corpuscular Hgb 24.4 pg (27.0-32.0); Mean Corpuscular Volume 87.3 fL (81-99); Mean Platelet Vol. 12.3 fl (6.2-12.0); Monocyte# 0.41 X10^3/uL; Monocyte% 7.5 % (0-10); NRBC Flagged by Analyzer 0 % (0-5); Neutrophil # 4.09 X10^3/uL (2.7-7.7); Neutrophil % 74.6 % (47-70); Platelet Count 225 K/mm3 (150-450); RBC Distribution Width SD 45.1 fl (35.1-43.9); Red Blood Count 3.93 M/mm3 (4.2-5.4); White Blood Count 5.5 K/mm3 (4.4-11.0)
[2023-11-24 06:41] LABS: Bedside Glucose 123 mg/dL (74-106)
[2023-11-24 06:55] LABS: ALB/GLOB Ratio 0.5 RATIO (0.9-2.4); AST(SGOT) 12 U/L (15-37); Alanine Aminotransfer ALT/SGPT 12 U/L (13-56); Albumin, Serum 2.3 g/dL (3.2-5.0); Alkaline Phosphatase 73 U/L (45-117); Anion Gap 2 (5-15); BUN 19 mg/dL (7-18); BUN/Creat Ratio 39.3 RATIO (10-20); Calcium,Total 9.9 mg/dL (8.5-10.1); Chloride 95 mmol/L (98-107); Creatinine, Serum 0.48 mg/dL (0.55-1.02); EST Glomerular Filtration Rate 138 mL/min (>60); Est Glom Filt Rate - Afr Amer 167 mL/min (>60); Estimated Creatinine Clearance 185.77 ml/min; Globulin 4.3 g/dL (2.2-4.2); Glucose 138 mg/dL (74-106); Magnesium 1.8 mg/dL (1.6-2.6); Phosphorus 2.7 mg/dL (2.5-4.9); Potassium 4.2 mmol/L (3.5-5.1); Protein, Total 6.6 g/dL (6.4-8.2); Sodium Level 137 mmol/L (136-145); Thyroid Stim Hormone (TSH) 0.149 uIU/mL (0.358-3.740)
[2023-11-24 07:05] LABS: Allen Test Positive; Base Excess 21 mmol/L (-2 to +2); Bicarbonate 45.5 mmol/L (22-26); Blood Gas Specimen Type ART; Mode avaps; O2 Delivery Device BiPAP; PEEP 10; PO2 102 mmHG (75-100); RR 12; SITE L Radial; SO2 98 % (95-99); Total Carbon Dioxide 48 mmol/L; pCO2 71.8 mmHg (35-45); pH 7.41 (7.35-7.45)
[2023-11-24 07:22] LABS: Procalcitonin < 0.04 ng/mL (0.00-0.09)
[2023-11-24 07:48] LABS: Hemoglobin A1c 5.5 % (3.8-5.6)
[2023-11-24] MEDS: Dicyclomine 10 MG Capsule PO ×4 (08:28→21:22)
[2023-11-24] MEDS: busPIRone 5 MG Tablet PO ×2 (08:28→21:22)
[2023-11-24] MEDS: Menthol/Lanolin/Calamine/Znox 113 GM Tube 1 APPLIC TOPICAL ×4 (08:28→21:22)
[2023-11-24] MEDS: 0.9% Saline Lock 10 ML Syringe IV (08:29)
[2023-11-24] MEDS: dexAMETHasone 10 MG/ML Vial 6 MG IV (08:29)
[2023-11-24] MEDS: Montelukast 10 MG Tablet PO (08:29)
[2023-11-24] MEDS: Loratadine 10 MG Tablet PO (08:29)
--- NOTE | 2023-11-24 08:58 | CASEMGMT ---
Patient is from [facility]. SW sent updates to [facility] via [employer]. will also check with patient and confirm her plan is to return. Sheeba GENAO
--- NOTE | 2023-11-24 09:50 | PCMCONS.TICU ---
HPI Consult Data Date of Consult: 11/24/23 HPI Narrative Reason for Consultation: Hypoxemia HPI Narrative: HE TRAYLOR, is a 63 F was admitted through ED overnight with SOB and COVID. See details captured in previous documents (ER and hospitalist admission). It is not clear how she contracted COVID or for how long she has been ill but she require NIV support for hypoxemia while admitted. She has established chronic respiratory insufficiency on the basis of morbid obesity and MARISOL/OHS physiology, has CPAP and supplemental O2 at home via Nasal aire device. She complains that the current BiPAP mask vehicle is uncomfortable. FORMERLY [facility], 1928–1983 Medical History Morbid obesity History of anemia History of hypertension History of morbid obesity History of obstructive sleep apnea History of COPD Anxiety Anemia Personal history of transient ischemic attack (TIA), and cerebral infarction without residual deficits Fibromyalgia Chronic anemia Chronic pain Vitamin D deficiency Seasonal allergies Depression HTN (hypertension) Hyperlipidemia Peptic ulcer disease GERD (gastroesophageal reflux disease) MARISOL (obstructive sleep apnea) Obesity hypoventilation syndrome Chronic respiratory failure with hypoxia HFrEF (heart failure with reduced ejection fraction) Morbid obesity UTI (urinary tract infection) TIA (transient ischemic attack) COPD (chronic obstructive pulmonary disease) Home Medications ?Medication ?Instructions ?Recorded ?Last Taken ?Type amitriptyline 25 mg tablet 25 mg PO QODAY DEPRESSION 05/03/22 04/15/23 History atorvastatin 20 mg tablet 20 mg PO QHS CHOLESTEROL 05/03/22 04/15/23 History famotidine 20 mg tablet 20 mg PO QHS GERD 05/03/22 04/15/23 History fluticasone propionate 50 2 spray intranasal BID PRN NASAL 05/03/22 05/28/22 History mcg/actuation nasal CONGESTION spray,suspension losartan 50 mg tablet 50 mg PO DAILY BLOOD PRESSURE 05/03/22 04/16/23 History montelukast 10 mg tablet 10 mg PO DAILY ALLERGIES 05/03/22 04/16/23 History omeprazole 20 mg tablet,delayed 20 mg PO DAILY GERD 05/03/22 04/16/23 History release roflumilast 500 mcg tablet 500 mcg PO DAILY ASTHMA 05/03/22 04/16/23 History (Daliresp) sertraline 100 mg tablet (Zoloft) 200 mg PO QHS DEPRESSION 05/03/22 04/16/23 History dicyclomine 10 mg capsule 10 mg PO 4X/DAY IRRITABLE BOWELS 05/05/22 04/16/23 Rx #1 cap albuterol sulfate 90 mcg/actuation 2 puff inhalation Q2H PRN SOB 09/08/22 04/12/23 History aerosol inhaler cholecalciferol (vitamin D3) 50 50 mcg PO DAILY SUPPLEMENT 04/16/23 04/16/23 History mcg (2,000 unit) tablet loperamide 2 mg capsule (Imodium 2 mg PO Q8H PRN DIARRHEA 04/16/23 04/09/23 History A-D) prednisone 10 mg tablet 10 mg PO DAILY COPD 04/16/23 04/16/23 History sertraline 50 mg tablet 50 mg PO DAILY DEPRESSION 04/16/23 04/16/23 History acetaminophen 325 mg tablet 650 mg PO Q4H PRN Fever, pain 07/26/23 Unknown History -01/16 acetaminophen 650 mg rectal 650 mg LA Q4H PRN pain 07/26/23 Unknown History suppository albuterol sulfate 0.63 mg/3 mL 0.63 mg inhalation 4X/DAY PRN 07/26/23 Unknown History solution for nebulization shortness of breath or wheezing aluminum-mag hydroxide-simethicone 30 ml PO Q6H PRN Gastric Burning 07/26/23 Unknown History 400 mg-400 mg-40 mg/5 mL oral susp (Mag-Al Plus Extra Strength) buspirone 5 mg tablet 5 mg PO BID 07/26/23 Unknown History furosemide 20 mg tablet 40 mg PO DAILY 07/26/23 Unknown History guaifenesin 100 mg/5 mL oral 200 mg PO Q4H PRN cough 07/26/23 Unknown History liquid (Adult Tussin Chest Congestion) loratadine 10 mg tablet (Allergy 10 mg PO DAILY 07/26/23 Unknown History Relief (loratadine)) menthol 0.44 %-zinc oxide 20.6 % 1 applic topical 4X/DAY 07/26/23 Unknown History topical ointment (Calmoseptine) ondansetron HCl 4 mg tablet 4 mg PO Q8H PRN nausea and vomiting 07/26/23 Unknown History sodium phosphates 19 gram-7 118 ml LA DAILY PRN constipation 07/26/23 Unknown History gram/118 mL enema (Fleet Enema) topiramate 25 mg tablet 25 mg PO DAILY 07/26/23 Unknown History trazodone 50 mg tablet 50 mg PO QHS 07/26/23 Unknown History gabapentin 100 mg capsule 200 mg PO BID 11/23/23 Unknown History melatonin 5 mg capsule mg 11/23/23 Unknown History Allergy/AdvReac Type Severity Reaction Status Date / Time aspirin Allergy Other Verified 07/26/23 13:33 black pepper (pepper) Allergy Other Verified 07/26/23 13:33 coconut Allergy Other Verified 07/26/23 13:33 codeine Allergy Other Verified 07/26/23 13:33 ibuprofen Allergy Other Verified 07/26/23 13:33 Influenza Virus Vaccines Allergy Other Verified 07/26/23 13:33 Penicillins Allergy Anaphylaxis Verified 07/26/23 13:33 rice Allergy Other Verified 07/26/23 13:33 tetanus and diphtheria Allergy Other Verified 07/26/23 13:33 toxoids Tetanus Vaccines and Toxoid Allergy Other Verified 07/26/23 13:33 Family History Mother CAD (coronary artery disease) COPD (chronic obstructive pulmonary disease) Hypertension Heart disease Father CAD (coronary artery disease) COPD (chronic obstructive pulmonary disease) Hypertension Heart disease Surgical History History of ankle surgery Social History housing: [facility] Smoking Status: Former smoker alcohol intake: never substance use type: does not use ROS Constitutional Constitutional: Reports systems reviewed and no addt'l complaints, except as documented Objective Data Objective Data Vital Signs: Vital Signs Last response Temperature 36.3 C L 11/24/23 06:00 Temperature Source Temporal 11/24/23 06:00 Pulse Rate 81 11/24/23 07:00 Respiratory Rate 15 11/24/23 07:00 Respiratory Effort Short of Breath 11/24/23 06:00 Respiratory Depth Normal 11/23/23 22:01 Respiratory Pattern Normal 11/24/23 06:48 Blood Pressure 117/80 11/24/23 07:00 Blood Pressure Mean 92 11/24/23 07:00 Blood Pressure Source Monitor 11/24/23 07:00 Blood Pressure Position Semi-Fowlers 11/24/23 07:00 Blood Pressure Location Left Arm 11/24/23 07:00 Pulse Ox 94 11/24/23 07:00 Oxygen Delivery Method Bi-pap 11/24/23 08:11 Oxygen Flow Rate (L/min) 5 11/23/23 18:00 Fraction of Inspired Oxygen (FIO2) 35 11/24/23 07:00 I&O: I&O Last 24 Hours 11/23/23 11/23/23 11/24/23 11:59 23:59 11:59 Intake Total 455 / 455 790 / 790 Output Total 150 / 150 Balance 455 / 455 640 / 640 I&O: Total Stay 11/23/23 14:46 thru 11/24/23 09:17 Intake Total 1245 Output Total 150 Balance 1095 Current Meds Ordered / Administered: Current meds ordered / Administered Generic Name Dose Route Start Last Admin Trade Name Freq PRN Reason Stop Dose Admin Acetaminophen 650 mg 11/23/23 20:06 Acetaminophen 650 Mg Suppository RC Q4H PRN pain/fever Albuterol Sulfate 2.5 mg 11/23/23 20:06 Albuterol 2.5 Mg/3 Ml Vial.Neb. INHALATION Q2H PRN PRN Shortness of breath/wheezing Albuterol/Ipratropium 3 ml 11/23/23 22:00 11/24/23 06:48 Ipratropium/Albuterol Sulfate 3 Ml Ampul.Neb INHALATION 3 ml Q4H.RT MARY Administration Amitriptyline HCl 25 mg 11/24/23 22:00 Amitriptyline 25 Mg Tablet PO QODAY@2200 MARY Atorvastatin Calcium 20 mg 11/23/23 22:00 11/23/23 22:59 Atorvastatin Calcium 20 Mg Tablet PO 20 mg QHS MARY Administration Buspirone HCl 5 mg 11/23/23 22:00 11/24/23 08:28 Buspirone 5 Mg Tablet PO 5 mg BID MARY Administration Calamine/Phenol 1 applic 11/23/23 22:00 11/24/23 08:28 Menthol/Lanolin/Calamine/Znox 113 Gm Tube TOPICAL 1 applic 4X/DAY MARY Administration Protocol Dexamethasone Sodium Phosphate 6 mg 11/24/23 10:00 11/24/23 08:29 Dexamethasone 10 Mg/Ml Vial IV 6 mg DAILY MARY Administration Dicyclomine HCl 10 mg 11/23/23 22:00 11/24/23 08:28 Dicyclomine 10 Mg Capsule PO 10 mg 4X/DAY MARY Administration Enoxaparin Sodium 40 mg 11/23/23 22:00 11/24/23 08:24 Enoxaparin 40 Mg/0.4 Ml Syringe SC Not Given BID MARY Furosemide 40 mg 11/24/23 10:00 11/24/23 08:27 Furosemide 40 Mg Tablet PO Not Given DAILY MARY Protocol Gabapentin 200 mg 11/23/23 22:00 11/23/23 22:28 Gabapentin 100 Mg Capsule PO 200 mg BID MARY Administration Glucagon 1 mg 11/23/23 20:06 Glucagon 1 Mg/Ml Syringe IM X1 PRN HYPOGLYCEMIA Protocol Guaifenesin 10 ml 11/23/23 20:06 Guaifenesin 10 Ml Udc (200mg/10ml) PO Q4H PRN PRN cough Remdesivir 100 mg/ Sodium 250 mls @ 250 mls/hr 11/24/23 22:00 Chloride IV 11/27/23 22:59 DAILY@2200 [facility] Protocol Azithromycin 500 mg/ Dextrose 255 mls @ 250 mls/hr 11/24/23 10:00 IV 11/29/23 10:01 Q24 [facility] Vancomycin IV-PHARMACY TO DOSE 500 mls @ 250 mls/hr 11/23/23 20:06 1 each/ Sodium Chloride IV PRN PRN Rx to Dose Protocol Levofloxacin 750 mg in 150 mls @ 100 mls/hr 11/23/23 21:00 11/23/23 22:57 Levaquin Iv IV 11/30/23 21:01 Infused Q24 MARY Infusion Dextrose 250 mls @ 0 mls/hr 11/23/23 20:06 Dextrose 10%-Water IV .Q0M PRN HYPOGLYCEMIA Protocol As Directed Pantoprazole Sodium 40 mg/ 110 mls @ 330 mls/hr 11/24/23 10:00 Sodium Chloride IV Q24 [facility] Vancomycin HCl 1,500 mg/ 530 mls @ 250 mls/hr 11/24/23 07:30 11/24/23 06:20 Sodium Chloride IV 250 mls/hr Q8H MARY Administration Insulin Human Lispro 0 unit 11/24/23 00:00 11/24/23 06:20 Insulin Lispro 100 Unit/Ml Insuln.Pen SC Not Given Q6 [facility] Protocol Loratadine 10 mg 11/24/23 10:00 11/24/23 08:29 Loratadine 10 Mg Tablet PO 10 mg DAILY MARY Administration Montelukast Sodium 10 mg 11/24/23 10:00 11/24/23 08:29 Montelukast 10 Mg Tablet PO 10 mg DAILY MARY Administration Ondansetron HCl 4 mg 11/23/23 20:06 Ondansetron 4 Mg/2 Ml Vial IV Q8H PRN PRN NAUSEA/VOMITING Senna/Docusate Sodium 2 tablet 11/23/23 20:06 Senna/Docusate Sodium 1 Tablet PO BID PRN PRN Constipation Sertraline HCl 200 mg 11/23/23 22:00 11/23/23 22:31 Sertraline 100 Mg Tablet PO 200 mg QHS MARY Administration Sodium Chloride 10 - 40 ml 11/23/23 20:53 11/24/23 08:29 0.9% Saline Lock 10 Ml Syringe IV 40 ml UD PRN Administration SALINE FLUSH Vancomycin Protocol 1 lab 11/24/23 21:00 Vancomycin Trough/Random Due MC 11/25/23 01:00 DAILY [facility] Physical Exam Const alert and oriented x3 General Appearance: well kempt Orientation / Consciousness: awake Exam Limitations: no limitations HEENT Mouth: other Throat: other Other Details: crowded airway, exam limited by BiPAP mask Eyes PERRL and EOMs intact bilaterally Neck General: other neck sort and thick Lab / Micro Data Attestation: I reviewed the patient's lab results. 11/24/23 06:00 11/24/23 06:00 Labs: Laboratory Results - last 24 hr 11/23/23 15:05: WBC 7.7, RBC 3.94 L, Hgb 9.7 L, Hct 34.6 L, MCV 87.8, MCH 24.6 L, MCHC 28.0 L, RDW Std Deviation 46.2 H, RDW Coeff of David 14.3, Plt Count 218, MPV 13.0 H, Immature Gran % (Auto) 1.700 H, Neut % (Auto) 79.8 H, Lymph % (Auto) 11.3 L, [place] % (Auto) 6.6, Eos % (Auto) 0.3, Baso % (Auto) 0.3, Absolute Neuts (auto) 6.2, Absolute Lymphs (auto) 0.87, Nucleated RBC % 0, PT 13.5, INR 1.0, APTT 28.6, Sodium 141, Potassium 4.5, Chloride 98, Carbon Dioxide 42.0 H, Anion Gap 1 L, BUN 20 H, Creatinine 0.72, Est GFR (MDRD) Af Amer 106, Est GFR (MDRD) Non-Af 87, BUN/Creatinine Ratio 27.8 H, Glucose 191 H, Lactic Acid 1.5, Calcium 9.9, Total Bilirubin 0.20, AST 10 L, ALT 13, Alkaline Phosphatase 79 11/23/23 15:05: Alkaline Phosphatase 78, Total Protein 6.6, Albumin 2.3 L, Globulin 4.3 H, Albumin/Globulin Ratio 0.5 L 11/24/23 06:00: WBC 5.5, RBC 3.93 L, Hgb 9.6 L, Hct 34.3 L, MCV 87.3, MCH 24.4 L, MCHC 28.0 L, RDW Std Deviation 45.1 H, RDW Coeff of David 14.0, Plt Count 225, MPV 12.3 H, Immature Gran % (Auto) 2.000 H, Neut % (Auto) 74.6 H, Lymph % (Auto) 15.7 L, [place] % (Auto) 7.5, Eos % (Auto) 0.0, Baso % (Auto) 0.2, Absolute Neuts (auto) 4.1, Absolute Lymphs (auto) 0.86, Nucleated RBC % 0, Sodium 137, Potassium 4.2, Chloride 95 L, Carbon Dioxide 40.0 H, Anion Gap 2 L, BUN 19 H, Creatinine 0.48 L, Estim Creat Clear Calc 185.77, Est GFR (MDRD) Af Amer 167, Est GFR (MDRD) Non-Af 138, BUN/Creatinine Ratio 39.3 H, Glucose 138 H, Hemoglobin A1c 5.5, Calcium 9.9, Phosphorus 2.7, Magnesium 1.8, Total Bilirubin 0.20, AST 12 L, ALT 12 L, Alkaline Phosphatase 73, C-React Prot Ext Range 92.40 H, Total Protein 6.6, Albumin 2.3 L, Globulin 4.3 H, Albumin/Globulin Ratio 0.5 L, Procalcitonin < 0.04, TSH 0.149 L 11/24/23 06:18: POC Glucose 123 H Micro: Microbiology 11/23/23 15:38 Mucosa - Nose SARS-CoV-2, Influenza & RSV (PCR) - Final SARS-CoV-2 (COVID 19) ABG Data ABG results: ABG 11/23/23 11/23/23 11/24/23 18:15 20:44 00:05 Specimen Type ART ART ART Sample Site L Radial L Radial L Radial pH 7.25 L 7.26 L 7.31 L Bicarbonate Actual 48.8 H 41.4 H 43.2 H Total CO2 > 50 44 46 Base Excess 22 H 14 H 17 H O2 Saturation 90 L 94 L 99 O2 % 5.0 50.0 50.0 ABG pCO2 111.4 H* 92.3 H* 85.5 H* ABG pO2 75 89 140 H José Miguel Test Positive N/A N/A Respiration Rate 12 12 O2 Delivery Device Cannula BiPAP BiPAP Vent Mode Not entered Not entered Not entered Tidal Volume 500.0 500.0 POC PEEP 10 10 Crit Call To/Read Back Yes Yes Yes Blood Gas Notified Whom Pawel Otoole Blood Gas Notified Time 18:16:29 20:47:04 00:06:53 11/24/23 07:00 Specimen Type ART Sample Site L Radial pH 7.41 Bicarbonate Actual 45.5 H Total CO2 48 Base Excess 21 H O2 Saturation 98 O2 % 35.0 ABG pCO2 71.8 H* ABG pO2 102 H José Miguel Test Positive Respiration Rate 12 O2 Delivery Device BiPAP Vent Mode avaps Tidal Volume 500.0 POC PEEP 10 Crit Call To/Read Back Yes Blood Gas Notified Whom joseph Blood Gas Notified Time 07:02:16 Imaging Radiology Impression Chest X-Ray 11/23/23 15:55 IMPRESSION: Moderate volume loss of the right lung. Right pulmonary opacity possibly due to consolidation and effusion.. Electronically Signed: Garry Haro DO at 17:03 EDT , Chest CTA 11/23/23 16:04 IMPRESSION: No demonstrated pulmonary embolism or arterial dissection. Elevated right hemidiaphragm. Volume loss of the right lung with mild effusion and diffuse consolidation/atelectasis. Electronically Signed: Garry TahirDO at 17:17 EDT , Assessment and Plan . Assessment and plan: Assessment/Plan (1) Acute on chronic respiratory failure with hypoxia and hypercapnia: (2) COVID-19 pneumonia (3) Acute on Chronic respiratory failure (4) Super morbid obesity with MARISOL/OHS PLAN: Plan Acute on chronic hypoxic and hypercapnic respiratory failure secondary to acute COVID-19 infection plus right lower lobe pneumonia -suspect the pneumonic process is related to COVID -Decadron 6 mg daily x 10 days-day 1 of 10 -Remdesivir-day 1 of 5 -Reassess need for Abx pending evolution of status, culture results -Check sputum culture -follow MS given propensity and hypercarbia at baseline- low threshold for checking ABG -Continue BiPAP -brief breaks for meals etc -Scheduled and as needed nebulizers -I-S and Acapella once off BiPAP -High risk for requiring intubation--> it is verified that patient is a full code - continue home furosemide regimen Super morbid obesity -Complicates treatment, prognosis, outcomes -Increases risk for intubation DVT prophylaxis -48 Lovenox SQ twice daily Critical Care Time: 60 minutes The entirety of this encounter was done via Telemedicine
[2023-11-24] MEDS: Pantoprazole Sodium 40 MG in 0.9% Normal Saline (100mL MB+) 100 ML 330 MG IV (11:22)
[2023-11-24] MEDS: Gabapentin 100 MG Capsule 200 MG PO ×2 (11:32→21:21)
[2023-11-24] MEDS: levoFLOXacin IV 750 MG/150 ML BAG 100 MG IV (11:45)
--- NOTE | 2023-11-24 12:16 | CASEMGMT ---
SW called patient's significant other Evens and confirmed patient's plan will be back to [facility] at d/c. [facility] also requested Covid test and vitals be sent. SW sent this information via [employer]. Plan: d/c back to [facility] under intermediate level of care when medically ready. Sheeba Lucio MSW [place]
--- NOTE | 2023-11-24 12:20 | NURSING ---
1100- pt desaturating to mid 70's on nasal cannula. Attempted to put patient back on bipap but she refused. Educated patient about the need for it. RT notified and placed patient on Airvo. Saturations returned to mid 90's.
[2023-11-24] MEDS: Azithromycin 500 MG in Dextrose 5%-Water (250mL Bag) 250 ML 250 MG IV (13:59)
--- NOTE | 2023-11-24 15:02 | PCM.PN.HOSP ---
Reason for Visit Reason for Visit: Diagnoses Other acidosis (11/23/23) Pneumonia, unspecified organism (11/23/23) Acute and chronic respiratory failure with hypoxia (11/23/23) Acute and chronic respiratory failure with hypercapnia (11/23/23) COVID-19 (11/23/23) Subjective Subjective Patient was seen and examined today, she was on BiPAP during the time I examined her. Patient does not complain of any shortness of breath at rest, she is mildly uncomfortable using the BiPAP. Objective Data Objective Data Vital Signs: Vital Signs Temp Pulse Resp BP Pulse Ox O2 Del Method O2 Flow Rate 98.1 F 81 19 H 115/59 L 99 Airvo 5 11/24/23 12:00 11/24/23 12:00 11/24/23 12:00 11/24/23 12:00 11/24/23 12:00 11/24/23 12:00 11/23/23 18:00 FiO2 88 11/24/23 11:41 Oxygen Flow Rate (L/min) 5 Oxygen Delivery Method Airvo Weight: 149.685 kg Body Mass Index (BMI) 51.7 Intake & Output: Intake and Output for Last 24 Hours 11/22/23 11/23/23 11/24/23 23:59 23:59 23:59 Intake Total 455 / 455 1940 / 1940 Output Total 600 / 600 Balance 455 / 455 1340 / 1340 Lab / Micro Data 11/24/23 06:00 11/24/23 06:00 Labs: Laboratory Results - last 24 hr 11/23/23 15:05: WBC 7.7, RBC 3.94 L, Hgb 9.7 L, Hct 34.6 L, MCV 87.8, MCH 24.6 L, MCHC 28.0 L, RDW Std Deviation 46.2 H, RDW Coeff of David 14.3, Plt Count 218, MPV 13.0 H, Immature Gran % (Auto) 1.700 H, Neut % (Auto) 79.8 H, Lymph % (Auto) 11.3 L, [place] % (Auto) 6.6, Eos % (Auto) 0.3, Baso % (Auto) 0.3, Absolute Neuts (auto) 6.2, Absolute Lymphs (auto) 0.87, Nucleated RBC % 0, PT 13.5, INR 1.0, APTT 28.6, Sodium 141, Potassium 4.5, Chloride 98, Carbon Dioxide 42.0 H, Anion Gap 1 L, BUN 20 H, Creatinine 0.72, Est GFR (MDRD) Af Amer 106, Est GFR (MDRD) Non-Af 87, BUN/Creatinine Ratio 27.8 H, Glucose 191 H, Lactic Acid 1.5, Calcium 9.9, Total Bilirubin 0.20, AST 10 L, ALT 13, Alkaline Phosphatase 79 11/23/23 15:05: Alkaline Phosphatase 78, Total Protein 6.6, Albumin 2.3 L, Globulin 4.3 H, Albumin/Globulin Ratio 0.5 L 11/24/23 06:00: WBC 5.5, RBC 3.93 L, Hgb 9.6 L, Hct 34.3 L, MCV 87.3, MCH 24.4 L, MCHC 28.0 L, RDW Std Deviation 45.1 H, RDW Coeff of David 14.0, Plt Count 225, MPV 12.3 H, Immature Gran % (Auto) 2.000 H, Neut % (Auto) 74.6 H, Lymph % (Auto) 15.7 L, [place] % (Auto) 7.5, Eos % (Auto) 0.0, Baso % (Auto) 0.2, Absolute Neuts (auto) 4.1, Absolute Lymphs (auto) 0.86, Nucleated RBC % 0, Sodium 137, Potassium 4.2, Chloride 95 L, Carbon Dioxide 40.0 H, Anion Gap 2 L, BUN 19 H, Creatinine 0.48 L, Estim Creat Clear Calc 185.77, Est GFR (MDRD) Af Amer 167, Est GFR (MDRD) Non-Af 138, BUN/Creatinine Ratio 39.3 H, Glucose 138 H, Hemoglobin A1c 5.5, Calcium 9.9, Phosphorus 2.7, Magnesium 1.8, Total Bilirubin 0.20, AST 12 L, ALT 12 L, Alkaline Phosphatase 73, C-React Prot Ext Range 92.40 H, Total Protein 6.6, Albumin 2.3 L, Globulin 4.3 H, Albumin/Globulin Ratio 0.5 L, Procalcitonin < 0.04, TSH 0.149 L 11/24/23 06:18: POC Glucose 123 H Micro: Microbiology 11/24/23 11:30 Urine, Clean Catch Legionella Antigen - Final 11/24/23 11:30 Urine, Clean Catch Streptococcus pneumoniae Antigen (M - Final 11/23/23 15:38 Mucosa - Nose SARS-CoV-2, Influenza & RSV (PCR) - Final SARS-CoV-2 (COVID 19) ABG Data ABG results: ABG 11/23/23 11/23/23 11/24/23 18:15 20:44 00:05 Specimen Type ART ART ART Sample Site L Radial L Radial L Radial pH 7.25 L 7.26 L 7.31 L Bicarbonate Actual 48.8 H 41.4 H 43.2 H Total CO2 > 50 44 46 Base Excess 22 H 14 H 17 H O2 Saturation 90 L 94 L 99 O2 % 5.0 50.0 50.0 ABG pCO2 111.4 H* 92.3 H* 85.5 H* ABG pO2 75 89 140 H José Miguel Test Positive N/A N/A Respiration Rate 12 12 O2 Delivery Device Cannula BiPAP BiPAP Vent Mode Not entered Not entered Not entered Tidal Volume 500.0 500.0 POC PEEP 10 10 Crit Call To/Read Back Yes Yes Yes Blood Gas Notified Whom Pawel Otoole Blood Gas Notified Time 18:16:29 20:47:04 00:06:53 11/24/23 07:00 Specimen Type ART Sample Site L Radial pH 7.41 Bicarbonate Actual 45.5 H Total CO2 48 Base Excess 21 H O2 Saturation 98 O2 % 35.0 ABG pCO2 71.8 H* ABG pO2 102 H José Miguel Test Positive Respiration Rate 12 O2 Delivery Device BiPAP Vent Mode avaps Tidal Volume 500.0 POC PEEP 10 Crit Call To/Read Back Yes Blood Gas Notified Whom joseph Blood Gas Notified Time 07:02:16 Radiography Diagnostic Testing: Radiology Impression Chest X-Ray 11/23/23 15:55 IMPRESSION: Moderate volume loss of the right lung. Right pulmonary opacity possibly due to consolidation and effusion.. Electronically Signed: Garry Haro DO at 17:03 EDT , Chest CTA 11/23/23 16:04 IMPRESSION: No demonstrated pulmonary embolism or arterial dissection. Elevated right hemidiaphragm. Volume loss of the right lung with mild effusion and diffuse consolidation/atelectasis. Electronically Signed: Garry TahirDO at 17:17 EDT Reading Location ID and State: [facility] / [place] Tel [phone], Service support , Physical Exam Const alert, oriented x3 and no apparent distress Constitutional Narrative: Patient is morbidly obese General Appearance: cooperative, well kempt and well developed Orientation / Consciousness: awake, oriented to person, oriented to place and oriented to time HEENT normocephalic, head/scalp atraumatic and moist oral mucous membranes Eyes PERRL, EOMs intact bilaterally and conjunctivae normal Neck supple, no JVD, thyroid normal and no carotid bruits General: trachea midline Resp normal respiratory effort, no retractions, no use of accessory muscles and clear to auscultation bilaterally Auscultation: Negative for rales, rhonchi or wheezes Cardio regular rate, regular rhythm, S1 normal heart sound, S2 normal heart sound, no murmurs, no rub and no gallops GI normal to inspection, nondistended, normoactive bowel sounds, soft to palpation, non-tender and non-distended Extremity no clubbing, cyanosis or edema Skin no rashes or lesions noted General Skin Exam: no breakdown Neuro oriented x3, CN's II-XII intact bilaterally, moves all extremities, no focal motor deficits and no sensory deficits noted Sensorium / Orientation: awake and alert Speech: speech normal Psych affect normal Assessment & Plan Assessment/Plan (1) Pneumonia: PLAN: Plan 1. COVID-19 pneumonia-continue dexamethasone and remdesivir, critical care is participating in her care #2 possible community-acquired pneumonia, await culture results, continue IV antibiotics for now #3 acute combined respiratory failure on a backdrop of chronic combined respiratory failure-patient is currently on BiPAP, attempts will be made to transition her over to high flow oxygen, pulse ox will be monitored #4 morbid obesity-complicates care, management, recovery, and prognosis #5 essential hypertension-patient will remain on her present medications, they will be adjusted as needed to control blood pressure #6 hyperlipidemia-patient is on a statin #7 chronic obstructive pulmonary disease-patient is currently on aerosol treatments as well as corticosteroids #8 chronic depression-patient is on Zoloft Total clinical time spent by myself addressing the patient's medical issues, reviewing all of her data, and collaborating with patient's care team: 35 minutes Charges/Coding Visit Charges Inpatient E&M: 87038 Subs Hosp L2
[2023-11-24] MEDS: Remdesivir 100 MG in 0.9% Normal Saline (250mL Bag) 230 ML 250 MG IV (21:21)
[2023-11-24] MEDS: Sertraline 100 MG Tablet 200 MG PO (21:21)
[2023-11-24] MEDS: Amitriptyline 25 MG Tablet PO (21:22)
[2023-11-24] MEDS: Vancomycin Trough/Random Due 1 LAB MC (21:22)
[2023-11-24] MEDS: Atorvastatin Calcium 20 MG Tablet PO (21:22)
[2023-11-24 21:54] LABS: Vancomycin, Trough Level 34.6 ug/mL (5.0-15.0)
--- NOTE | 2023-11-24 22:22 | PHA.PHARE_ITS ---
Consult Antibiotic Management Pharmacy has been consulted to manage selected antibiotic: Vancomycin Type of Intervention Type of Consult: Follow-up Suspected Infection Suspected Infection: Pneumonia Labs Labs: Sodium 137 mmol/L (136-145) 11/24/23 06:00 Potassium 4.2 mmol/L (3.5-5.1) 11/24/23 06:00 Chloride 95 mmol/L (98-107) L 11/24/23 06:00 Carbon Dioxide 40.0 mmol/L (21.0-32.0) H 11/24/23 06:00 Anion Gap 2 (5-15) L 11/24/23 06:00 BUN 19 mg/dL (7-18) H 11/24/23 06:00 Creatinine 0.48 mg/dL (0.55-1.02) L 11/24/23 06:00 Est GFR (MDRD) Af Amer 167 mL/min (>60) 11/24/23 06:00 Est GFR (MDRD) Non-Af 138 mL/min (>60) 11/24/23 06:00 BUN/Creatinine Ratio 39.3 RATIO (10-20) H 11/24/23 06:00 Glucose 138 mg/dL (74-106) H 11/24/23 06:00 Vancomycin Trough 34.6 ug/mL (5.0-15.0) H 11/24/23 21:30 Microbiology Microbiology: Microbiology 11/24/23 11:30 Urine, Clean Catch Legionella Antigen - Final 11/24/23 11:30 Urine, Clean Catch Streptococcus pneumoniae Antigen (M - Final 11/23/23 15:38 Mucosa - Nose SARS-CoV-2, Influenza & RSV (PCR) - Final SARS-CoV-2 (COVID 19) Dosing Weight Weight used for dosin.7 kg Estimated Creatinine Clearance Estimated Creatinine Clearance: 186 Goal Trough Goal Trough: 15-20 mcg/mL Pharmacy Plan for Drug Dosing Pharmacy Plan for Drug Dosing: Vancomycin trough level was high at 34.6. However, the level was drawn just 5.7hrs post-dose, so the result is skewed. Using the dosing calculator a new dose of 1500mg just q12h was shown to give an estimated new trough of 17.1. With the current high level, the next dose will be delayed1&1/2hrs. Another trough will be drawn prior to the fourth dose of the new regimen. Pharmacy Service will continue to monitor and adjust dosing as required. Follow-Up Labs Follow-Up Labs: Trough: Vancomycin Date/Time Labs Ordered Labs to be done on [date and time ordered]: 11/26/23 @1234
--- NOTE | 2023-11-24 23:34 | CPS ---
PAP pressures decreased to 16/10 for patient comfort.
[2023-11-25] VITALS (26 sets, daily range): BP systolic 99–128; BP diastolic 54–100; PULSE 74–90; RESP 12–23; TEMP 36.1–37.2; O2SAT 88–100; BMI 52.2
[2023-11-25] MEDS: Vancomycin HCl 1,500 MG in 0.9% Normal Saline (500mL Bag) 500 ML 250 MG IV ×2 (00:55→14:15)
[2023-11-25 04:44] LABS: Bedside Glucose 168 mg/dL (74-106)
[2023-11-25] MEDS: Ipratropium/Albuterol Sulfate 3 ML AMPUL.NEB INHALATION ×4 (07:16→22:50)
[2023-11-25] MEDS: dexAMETHasone 10 MG/ML Vial 6 MG IV (08:35)
[2023-11-25] MEDS: Pantoprazole Sodium 40 MG in 0.9% Normal Saline (100mL MB+) 100 ML 330 MG IV (08:36)
[2023-11-25] MEDS: Gabapentin 100 MG Capsule 200 MG PO ×2 (08:43→22:39)
[2023-11-25] MEDS: Dicyclomine 10 MG Capsule PO ×4 (08:43→22:40)
[2023-11-25] MEDS: Loratadine 10 MG Tablet PO (08:43)
[2023-11-25] MEDS: Montelukast 10 MG Tablet PO (08:44)
[2023-11-25] MEDS: busPIRone 5 MG Tablet PO ×2 (08:45→22:40)
[2023-11-25] MEDS: Menthol/Lanolin/Calamine/Znox 113 GM Tube 1 APPLIC TOPICAL ×4 (08:46→22:39)
[2023-11-25] MEDS: levoFLOXacin IV 750 MG/150 ML BAG 100 MG IV (09:00)
[2023-11-25 09:53] LABS: Absolute Lymphocyte Count 2.27 X10^3/uL (0.83-4.51); Absolute Neutrophil Count 3.2 X10^3/uL (2.0-7.7); Basophil# 0.01 X10^3/uL; Basophil% 0.2 % (0-1); Eosinophil# 0.01 X10^3/uL; Eosinophils% 0.2 % (0-5); Hematocrit 31.8 % (37-47); Hemoglobin 8.9 g/dL (12.0-15.0); Lymphocyte # 2.27 X10^3/ul (0.83-4.51); Lymphocyte % 36.4 % (19-41); Mean Corpuscular Hgb 24.9 pg (27.0-32.0); Mean Corpuscular Volume 88.8 fL (81-99); Mean Platelet Vol. 11.8 fl (6.2-12.0); Monocyte# 0.59 X10^3/uL; Monocyte% 9.5 % (0-10); NRBC Flagged by Analyzer 0 % (0-5); Neutrophil # 3.24 X10^3/uL (2.7-7.7); Neutrophil % 51.9 % (47-70); Platelet Count 214 K/mm3 (150-450); RBC Distribution Width CV 13.8 % (11.6-14.6); RBC Distribution Width SD 44.7 fl (35.1-43.9); Red Blood Count 3.58 M/mm3 (4.2-5.4); White Blood Count 6.2 K/mm3 (4.4-11.0)
[2023-11-25 10:09] LABS: Anion Gap 0 (5-15); BUN 19 mg/dL (7-18); BUN/Creat Ratio 32.6 RATIO (10-20); Calcium,Total 9.7 mg/dL (8.5-10.1); Chloride 99 mmol/L (98-107); Creatinine, Serum 0.58 mg/dL (0.55-1.02); EST Glomerular Filtration Rate 111 mL/min (>60); Est Glom Filt Rate - Afr Amer 135 mL/min (>60); Estimated Creatinine Clearance 154.64 ml/min; Glucose 92 mg/dL (74-106); Potassium 3.7 mmol/L (3.5-5.1); Sodium Level 141 mmol/L (136-145)
[2023-11-25] MEDS: Furosemide 20 MG/2 ML VIAL IV ×2 (10:13→17:40)
[2023-11-25] MEDS: Benzonatate 100 MG Capsule 200 MG PO ×2 (10:13→22:45)
[2023-11-25] MEDS: Azithromycin 500 MG in Dextrose 5%-Water (250mL Bag) 250 ML 250 MG IV (12:25)
--- NOTE | 2023-11-25 13:49 | PN.HOSP_ITS ---
Reason for Visit Reason for Visit: Diagnoses Other acidosis (11/23/23) Pneumonia, unspecified organism (11/23/23) Acute and chronic respiratory failure with hypoxia (11/23/23) Acute and chronic respiratory failure with hypercapnia (11/23/23) COVID-19 (11/23/23) Subjective Subjective Patient was seen and examined today, she refused her Lovenox-she states my blood is too thin already-I explained to her that we need to give it for prevention of DVT in a patient with COVID-19, she understood it but still refused to take it. I discontinue the medication. Patient also refused full dose of Lasix and the telemetry sweeping compound blender talked to her and reached a compromise with her and reduce the dose of Lasix. Patient is currently on Airvo Objective Data Objective Data Vital Signs: Vital Signs Temp Pulse Resp BP Pulse Ox O2 Del Method O2 Flow Rate 97.7 F L 88 19 H 122/87 H 95 Airvo 45 11/25/23 13:30 11/25/23 13:30 11/25/23 13:30 11/25/23 13:30 11/25/23 13:30 11/25/23 13:30 11/25/23 13:30 FiO2 45 11/25/23 13:30 Oxygen Flow Rate (L/min) 45 Oxygen Delivery Method Airvo Weight: 151.1 kg Body Mass Index (BMI) 52.2 Intake & Output: Intake and Output for Last 24 Hours 11/23/23 11/24/23 11/25/23 23:59 23:59 23:59 Intake Total 455 / 455 3445 / 3445 1445 / 1445 Output Total 850 / 850 1600 / 1600 Balance 455 / 455 2595 / 2595 -155 / -155 Lab / Micro Data 11/25/23 05:15 11/25/23 05:15 Labs: Laboratory Results - last 24 hr 11/23/23 20:36: POC Glucose 168 H 11/24/23 21:30: Vancomycin Trough 34.6 H 11/25/23 05:15: WBC 6.2, RBC 3.58 L, Hgb 8.9 L, Hct 31.8 L, MCV 88.8, MCH 24.9 L , MCHC 28.0 L, RDW Std Deviation 44.7 H, RDW Coeff of David 13.8, Plt Count 214, MPV 11.8, Immature Gran % (Auto) 1.800 H, Neut % (Auto) 51.9, Lymph % (Auto) 36.4, [place] % (Auto) 9.5, Eos % (Auto) 0.2, Baso % (Auto) 0.2, Absolute Neuts (auto) 3.2, Absolute Lymphs (auto) 2.27, Nucleated RBC % 0, Sodium 141, Potassium 3.7, Chloride 99, Carbon Dioxide 42.0 H, Anion Gap 0 L, BUN 19 H, Creatinine 0.58, Estim Creat Clear Calc 154.64, Est GFR (MDRD) Af Amer 135, Est GFR (MDRD) Non-Af 111, BUN/Creatinine Ratio 32.6 H, Glucose 92, Calcium 9.7 Micro: Microbiology 11/23/23 15:38 Blood Culture (Wb) - Right Hand Blood Culture - Preliminary No growth in 48 hours. 11/24/23 11:30 Urine, Clean Catch Legionella Antigen - Final 11/24/23 11:30 Urine, Clean Catch Streptococcus pneumoniae Antigen (M - Final 11/23/23 15:38 Mucosa - Nose SARS-CoV-2, Influenza & RSV (PCR) - Final SARS-CoV-2 (COVID 19) Physical Exam Narrative alert, oriented x3 and no apparent distress Constitutional Narrative: Patient is morbidly obese General Appearance: cooperative, well kempt and well developed Orientation / Consciousness: awake, oriented to person, oriented to place and oriented to time HEENT normocephalic, head/scalp atraumatic and moist oral mucous membranes Eyes PERRL, EOMs intact bilaterally and conjunctivae normal Neck supple, no JVD, thyroid normal and no carotid bruits General: trachea midline Resp normal respiratory effort, no retractions, no use of accessory muscles and clear to auscultation bilaterally Auscultation: Negative for rales, rhonchi or wheezes Cardio regular rate, regular rhythm, S1 normal heart sound, S2 normal heart sound, no murmurs, no rub and no gallops GI normal to inspection, nondistended, normoactive bowel sounds, soft to palpation, non-tender and non-distended Extremity no clubbing, cyanosis or edema Skin no rashes or lesions noted General Skin Exam: no breakdown Neuro oriented x3, CN's II-XII intact bilaterally, moves all extremities, no focal motor deficits and no sensory deficits noted Sensorium / Orientation: awake and alert Speech: speech normal Psych affect normal Assessment & Plan Assessment/Plan (1) Pneumonia: PLAN: Plan 1. COVID-19 pneumonia-continue dexamethasone and remdesivir, critical care is participating in her care #2 possible community-acquired pneumonia, await culture results, continue IV antibiotics for now #3 acute combined respiratory failure on a backdrop of chronic combined respiratory failure-patient is currently on Airvo #4 morbid obesity-complicates care, management, recovery, and prognosis #5 essential hypertension-patient will remain on her present medications, they will be adjusted as needed to control blood pressure #6 hyperlipidemia-patient is on a statin #7 chronic obstructive pulmonary disease-patient is currently on aerosol treatments as well as corticosteroids #8 chronic depression-patient is on Zoloft #9 noncompliance with medical regimen-complicates care, management, recovery, and prognosis Total clinical time spent by myself addressing the patient's medical issues, reviewing all of her data, and collaborating with patient's care team: 35 minutes Charges/Coding Visit Charges Inpatient E&M: 60600 Subs Hosp L2
[2023-11-25] MEDS: 0.9% Saline Lock 10 ML Syringe IV ×2 (14:21→17:41)
--- NOTE | 2023-11-25 17:52 | PN.CC_ITS ---
Objective Data Objective Data Vital Signs: Vital Signs Last response 3 Temperature 37.2 C 11/25/23 17:23 Temperature Source Oral 11/25/23 17:23 Pulse Rate 84 11/25/23 17:23 Pulse Strength Normal (2+) 11/25/23 09:22 Respiratory Rate 16 11/25/23 17:23 Respiratory Effort Normal, Non-Labored 11/25/23 14:29 Respiratory Depth Normal 11/25/23 14:29 Respiratory Pattern Normal 11/25/23 15:11 Blood Pressure 104/64 11/25/23 17:23 Blood Pressure Mean 77 11/25/23 17:23 Blood Pressure Source Monitor 11/25/23 14:27 Blood Pressure Position Semi-Fowlers 11/25/23 14:27 Blood Pressure Location Left Forearm 11/25/23 14:27 Pulse Ox 96 11/25/23 17:23 Oxygen Delivery Method Airvo 11/25/23 17:23 Oxygen Flow Rate (L/min) 45 11/25/23 17:23 Fraction of Inspired Oxygen (FIO2) 45 11/25/23 17:23 I&O: I&O Last 24 Hours 3 11/24/23 11/25/23 11/25/23 23:59 11:59 23:59 Intake Total 1895 / 3445 1040 / 1685 645 / 1685 Output Total 350 / 850 800 / 2350 1550 / 2350 Balance 1545 / 2595 240 / -665 -905 / -665 I&O: Total Stay 3 11/23/23 14:46 thru 11/25/23 17:27 Intake Total 5585 Output Total 3200 Balance 2385 Current Meds Ordered / Administered: Current meds ordered / Administered 3 Generic Name Dose Route Start Last Admin Trade Name Freq PRN Reason Stop Dose Admin Acetaminophen 650 mg 11/23/23 20:06 Acetaminophen 650 Mg Suppository RC Q4H PRN pain/fever Albuterol Sulfate 2.5 mg 11/23/23 20:06 Albuterol 2.5 Mg/3 Ml Vial.Neb. INHALATION Q2H PRN PRN Shortness of breath/wheezing Albuterol/Ipratropium 3 ml 11/23/23 22:00 11/25/23 14:56 Ipratropium/Albuterol Sulfate 3 Ml Ampul.Neb INHALATION 3 ml Q4H.RT MARY Administration Amitriptyline HCl 25 mg 11/24/23 22:00 11/24/23 21:22 Amitriptyline 25 Mg Tablet PO 25 mg QODAY@2200 MARY Administration Atorvastatin Calcium 20 mg 11/23/23 22:00 11/24/23 21:22 Atorvastatin Calcium 20 Mg Tablet PO 20 mg QHS MARY Administration Benzonatate 200 mg 11/24/23 18:02 11/25/23 10:13 Benzonatate 100 Mg Capsule PO 200 mg TID PRN PRN Administration COUGH Buspirone HCl 5 mg 11/23/23 22:00 11/25/23 08:45 Buspirone 5 Mg Tablet PO 5 mg BID MARY Administration Calamine/Phenol 1 applic 11/23/23 22:00 11/25/23 17:30 Menthol/Lanolin/Calamine/Znox 113 Gm Tube TOPICAL 1 applic 4X/DAY MARY Administration Protocol Dexamethasone Sodium Phosphate 6 mg 11/24/23 10:00 11/25/23 08:35 Dexamethasone 10 Mg/Ml Vial IV 6 mg DAILY MARY Administration Dicyclomine HCl 10 mg 11/23/23 22:00 11/25/23 17:31 Dicyclomine 10 Mg Capsule PO 10 mg 4X/DAY MARY Administration Furosemide 20 mg 11/25/23 10:00 11/25/23 17:40 Furosemide 20 Mg/2 Ml Vial IV 20 mg BIDLX MARY Administration Protocol Gabapentin 200 mg 11/23/23 22:00 11/25/23 08:43 Gabapentin 100 Mg Capsule PO 200 mg BID MARY Administration Guaifenesin 10 ml 11/24/23 18:07 Guaifenesin Dm 10 Ml Udc PO Q6H PRN PRN COUGH Remdesivir 100 mg/ Sodium 250 mls @ 250 mls/hr 11/24/23 22:00 11/25/23 00:56 Chloride IV 11/27/23 22:59 Infused DAILY@2200 MARY Infusion Protocol Azithromycin 500 mg/ Dextrose 255 mls @ 250 mls/hr 11/24/23 10:00 11/25/23 13:29 IV 11/29/23 10:01 Infused Q24 MARY Infusion Vancomycin IV-PHARMACY TO DOSE 500 mls @ 250 mls/hr 11/23/23 20:06 1 each/ Sodium Chloride IV PRN PRN Rx to Dose Protocol Levofloxacin 750 mg in 150 mls @ 100 mls/hr 11/23/23 21:00 11/25/23 12:25 Levaquin Iv IV 11/30/23 21:01 Infused Q24 MARY Infusion Dextrose 250 mls @ 0 mls/hr 11/23/23 20:06 Dextrose 10%-Water IV .Q0M PRN HYPOGLYCEMIA Protocol As Directed Vancomycin HCl 1,500 mg/ 530 mls @ 250 mls/hr 11/25/23 01:00 11/25/23 14:15 Sodium Chloride IV 250 mls/hr Q12H MARY Administration Loratadine 10 mg 11/24/23 10:00 11/25/23 08:43 Loratadine 10 Mg Tablet PO 10 mg DAILY MARY Administration Montelukast Sodium 10 mg 11/24/23 10:00 11/25/23 08:44 Montelukast 10 Mg Tablet PO 10 mg DAILY MARY Administration Ondansetron HCl 4 mg 11/23/23 20:06 Ondansetron 4 Mg/2 Ml Vial IV Q8H PRN PRN NAUSEA/VOMITING Pantoprazole Sodium 40 mg 11/26/23 10:00 Pantoprazole Sodium 40 Mg Tablet PO DAILY MARY Senna/Docusate Sodium 2 tablet 11/23/23 20:06 Senna/Docusate Sodium 1 Tablet PO BID PRN PRN Constipation Sertraline HCl 200 mg 11/23/23 22:00 11/24/23 21:21 Sertraline 100 Mg Tablet PO 200 mg QHS MARY Administration Sodium Chloride 10 - 40 ml 11/23/23 20:53 11/25/23 17:41 0.9% Saline Lock 10 Ml Syringe IV 10 ml UD PRN Administration SALINE FLUSH Vancomycin Protocol 1 lab 11/26/23 10:30 Vancomycin Trough/Random Due MC 11/26/23 14:30 DAILY MARY Lab / Micro Data Attestation: I reviewed the patient's lab results. 11/25/23 05:15 11/25/23 05:15 Labs: Laboratory Results - last 24 hr 11/23/23 20:36: POC Glucose 168 H 11/24/23 21:30: Vancomycin Trough 34.6 H 11/25/23 05:15: WBC 6.2, RBC 3.58 L, Hgb 8.9 L, Hct 31.8 L, MCV 88.8, MCH 24.9 L , MCHC 28.0 L, RDW Std Deviation 44.7 H, RDW Coeff of David 13.8, Plt Count 214, MPV 11.8, Immature Gran % (Auto) 1.800 H, Neut % (Auto) 51.9, Lymph % (Auto) 36.4, [place] % (Auto) 9.5, Eos % (Auto) 0.2, Baso % (Auto) 0.2, Absolute Neuts (auto) 3.2, Absolute Lymphs (auto) 2.27, Nucleated RBC % 0, Sodium 141, Potassium 3.7, Chloride 99, Carbon Dioxide 42.0 H, Anion Gap 0 L, BUN 19 H, Creatinine 0.58, Estim Creat Clear Calc 154.64, Est GFR (MDRD) Af Amer 135, Est GFR (MDRD) Non-Af 111, BUN/Creatinine Ratio 32.6 H, Glucose 92, Calcium 9.7 Micro: Microbiology 11/23/23 15:38 Blood Culture (Wb) - Right Hand Blood Culture - Preliminary No growth in 48 hours. Assessment and Plan . Assessment and plan: Assessment/Plan (1) Acute on chronic respiratory failure with hypoxia and hypercapnia: (2) COVID-19 pneumonia (3) Acute on Chronic respiratory failure (4) Super morbid obesity with MARISOL/OHS PLAN: Plan Acute on chronic hypoxic and hypercapnic respiratory failure secondary to acute COVID-19 infection plus right lower lobe pneumonia -suspect the pneumonic process is related to COVID -Decadron/Remdesivir -Reassess need for Abx pending evolution of status, culture results -Check sputum culture -follow MS given propensity and hypercarbia at baseline- low threshold for checking ABG -Continue BiPAP -brief breaks for meals etc -Scheduled and as needed nebulizers -I-S and Acapella once off BiPAP -High risk for requiring intubation--> it is verified that patient is a full code - continue home furosemide regimen Super morbid obesity -Complicates treatment, prognosis, outcomes -Increases risk for intubation DVT prophylaxis -48 Lovenox SQ twice daily Critical Care Time:50 minutes The entirety of this encounter was done via Telemedicine Subjective Subjective Continues with high O2 requirements, getting breaks from BiPAP with Nasal air device and she is happy with that.
[2023-11-25] MEDS: Remdesivir 100 MG in 0.9% Normal Saline (250mL Bag) 230 ML 250 MG IV (22:38)
[2023-11-25] MEDS: Atorvastatin Calcium 20 MG Tablet PO (22:40)
[2023-11-25] MEDS: Sertraline 100 MG Tablet 200 MG PO (22:40)
--- NOTE | 2023-11-25 22:50 | CPS ---
Pt refusing to wear CPAP for tonight and wants to wear AirVo.
[2023-11-26] VITALS (13 sets, daily range): BP systolic 100–137; BP diastolic 53–72; PULSE 74–100; RESP 16–20; TEMP 36.3–36.8; O2SAT 90–100; BMI 52.0
[2023-11-26] MEDS: Ondansetron 4 MG/2 ML Vial IV
[2023-11-26] MEDS: Vancomycin HCl 1,500 MG in 0.9% Normal Saline (500mL Bag) 500 ML 250 MG IV (00:01)
[2023-11-26] MEDS: Loperamide 2 MG Capsule PO ×2 (00:55→13:28)
[2023-11-26] MEDS: Ipratropium/Albuterol Sulfate 3 ML AMPUL.NEB INHALATION ×5 (07:46→23:10)
[2023-11-26] MEDS: Furosemide 20 MG/2 ML VIAL IV ×2 (08:32→17:31)
[2023-11-26] MEDS: dexAMETHasone 10 MG/ML Vial 6 MG IV (08:32)
[2023-11-26] MEDS: 0.9% Saline Lock 10 ML Syringe IV ×2 (08:32)
[2023-11-26] MEDS: levoFLOXacin IV 750 MG/150 ML BAG 100 MG IV (08:41)
[2023-11-26] MEDS: Pantoprazole Sodium 40 MG Tablet PO (08:46)
[2023-11-26] MEDS: Gabapentin 100 MG Capsule 200 MG PO ×2 (08:46→21:29)
[2023-11-26] MEDS: Montelukast 10 MG Tablet PO (08:46)
[2023-11-26] MEDS: busPIRone 5 MG Tablet PO ×2 (08:46→21:22)
[2023-11-26] MEDS: Dicyclomine 10 MG Capsule PO ×4 (08:46→21:21)
[2023-11-26] MEDS: Menthol/Lanolin/Calamine/Znox 113 GM Tube 1 APPLIC TOPICAL ×3 (08:46→21:23)
[2023-11-26] MEDS: Loratadine 10 MG Tablet PO (08:47)
[2023-11-26 08:57] LABS: Absolute Lymphocyte Count 3.53 X10^3/uL (0.83-4.51); Absolute Neutrophil Count 4.6 X10^3/uL (2.0-7.7); Basophil# 0.04 X10^3/uL; Basophil% 0.4 % (0-1); Eosinophil# 0.02 X10^3/uL; Eosinophils% 0.2 % (0-5); Hematocrit 33.8 % (37-47); Hemoglobin 9.6 g/dL (12.0-15.0); Lymphocyte # 3.53 X10^3/ul (0.83-4.51); Lymphocyte % 38.5 % (19-41); Mean Corp Hgb Conc 28.4 g/dL (32-36); Mean Corpuscular Hgb 24.7 pg (27.0-32.0); Mean Corpuscular Volume 86.9 fL (81-99); Monocyte# 0.79 X10^3/uL; Monocyte% 8.6 % (0-10); NRBC Flagged by Analyzer 0 % (0-5); Neutrophil # 4.63 X10^3/uL (2.7-7.7); Neutrophil % 50.4 % (47-70); POSITIVE MORPHOLOGY YES; Platelet Count 254 K/mm3 (150-450); RBC Distribution Width CV 14.1 % (11.6-14.6); RBC Distribution Width SD 44.9 fl (35.1-43.9); Red Blood Count 3.89 M/mm3 (4.2-5.4); White Blood Count 9.2 K/mm3 (4.4-11.0)
[2023-11-26 09:05] LABS: Differential Indicated SCAN CRITERIA MET
[2023-11-26 09:22] LABS: Anion Gap 3 (5-15); BUN 21 mg/dL (7-18); BUN/Creat Ratio 28.4 RATIO (10-20); Calcium,Total 9.5 mg/dL (8.5-10.1); Chloride 98 mmol/L (98-107); Creatinine, Serum 0.74 mg/dL (0.55-1.02); EST Glomerular Filtration Rate 85 mL/min (>60); Est Glom Filt Rate - Afr Amer 102 mL/min (>60); Estimated Creatinine Clearance 120.95 ml/min; Glucose 94 mg/dL (74-106); Potassium 3.2 mmol/L (3.5-5.1); Sodium Level 142 mmol/L (136-145)
[2023-11-26 09:37] LABS: Atypical Lymphocyte 2+ %; Differential Comment SCANNED
--- NOTE | 2023-11-26 10:04 | PN.CC_ITS ---
Assessment & Plan Assessment/Plan (1) Morbid obesity: (2) COVID-19: (3) Acute on chronic respiratory failure with hypoxia and hypercapnia: PLAN: Plan RECOMMENDATIONS: 1. Supplemental oxygen to maintain saturations at or above 90%. 2. Continue empiric antibiotics. 3. Continue remdesivir and Decadron to complete treatment regimen. 4. Gentle diuresis as tolerated by hemodynamics and renal function. 5. Strongly recommend pharmacologic DVT prophylaxis. However, patient refused. 6. Continue BiPAP therapy with naps and nightly. IMPRESSIONS: 1. Acute on chronic combined respiratory failure secondary to COVID-19 and concern for bacterial right lower lobe pneumonia The patient remains on appropriate medical therapy including supplemental oxygen to maintain saturations at or above 90%, along with empiric antimicrobials, remdesivir and Decadron. I agree with continuing diuretics as tolerated by hemodynamics and renal function. The patient apparently refused DVT prophylaxis previously. Encourage incentive spirometer use and mobilize patient as tolerated. I have no new additional recommendations from a pulmonary perspective. 2. History of obstructive sleep apnea/alveolar hypoventilation secondary to obesity Continue BiPAP therapy with naps and nightly. 3. Super morbid obesity/history of GERD/chronic pain syndrome/irritable bowel syndrome/hypertension/hyperlipidemia Complicates care, management, recovery and prognosis. Continue home medications as indicated. This note was generated with [employer] dictation software. It may contain incorrect words, spelling, and punctuation that were not noted in checking the note before signing. Subjective Subjective The patient was seen and examined at the bedside this morning. Events from the last 24 hours have been reviewed. The patient is currently afebrile, hemodynamically stable and maintaining appropriate oxygen saturations on heated high flow with an FiO2 requirement of 45%. The patient remains on antimicrobials, Decadron, remdesivir and Lasix. Hemoglobin and platelet count are stable. Potassium is low at 3.2 with a normal creatinine. Objective Data Objective Data The patient's most recent lab work, culture data and imaging studies have all been personally reviewed. COVID PCR was positive on November 22. Vital Signs: Vital Signs Temp Pulse Resp BP Pulse Ox O2 Del Method O2 Flow Rate 98.1 F 96 20 H 114/60 98 Airvo 45 11/26/23 08:26 11/26/23 08:26 11/26/23 08:26 11/26/23 08:26 11/26/23 08:26 11/26/23 08:26 11/26/23 08:26 FiO2 43 11/26/23 08:26 Oxygen Flow Rate (L/min) 45 Oxygen Delivery Method Airvo Weight: 332 lb 0.258 oz Body Mass Index (BMI) 52.0 Intake & Output: Intake and Output for Last 24 Hours 11/24/23 11/25/23 11/26/23 23:59 23:59 23:59 Intake Total 3445 / 3445 2465 / 2465 530 / 530 Output Total 850 / 850 2350 / 2850 1100 / 1100 Balance 2595 / 2595 115 / -385 -570 / -570 Lab / Micro Data Attestation: I reviewed the patient's lab results. 11/26/23 08:49 11/26/23 08:49 Labs: Laboratory Results - last 24 hr 11/25/23 05:15: Sodium 141, Potassium 3.7, Chloride 99, Carbon Dioxide 42.0 H, A nion Gap 0 L, BUN 19 H, Creatinine 0.58, Estim Creat Clear Calc 154.64, Est GFR (MDRD) Af Amer 135, Est GFR (MDRD) Non-Af 111, BUN/Creatinine Ratio 32.6 H, Glucose 92, Calcium 9.7 11/26/23 08:49: WBC 9.2, RBC 3.89 L, Hgb 9.6 L, Hct 33.8 L, MCV 86.9, MCH 24.7 L , MCHC 28.4 L, RDW Std Deviation 44.9 H, RDW Coeff of David 14.1, Plt Count 254, MPV 12.0, Immature Gran % (Auto) 1.900 H, Neut % (Auto) 50.4, Lymph % (Auto) 38.5, [place] % (Auto) 8.6, Eos % (Auto) 0.2, Baso % (Auto) 0.4, Absolute Neuts (auto) 4.6, Absolute Lymphs (auto) 3.53, Nucleated RBC % 0, Differential Comment SCANNED, Atypical Lymphocytes 2+, Sodium 142, Potassium 3.2 L, Chloride 98, C arbon Dioxide 41.0 H, Anion Gap 3 L, BUN 21 H, Creatinine 0.74, Estim Creat Clear Calc 120.95, Est GFR (MDRD) Af Amer 102, Est GFR (MDRD) Non-Af 85, B UN/Creatinine Ratio 28.4 H, Glucose 94, Calcium 9.5 Micro: Microbiology 11/23/23 15:38 Blood Culture (Wb) - Right Hand Blood Culture - Preliminary No growth in 48 hours. 11/24/23 11:30 Urine, Clean Catch Legionella Antigen - Final 11/24/23 11:30 Urine, Clean Catch Streptococcus pneumoniae Antigen (M - Final 11/23/23 15:38 Mucosa - Nose SARS-CoV-2, Influenza & RSV (PCR) - Final SARS-CoV-2 (COVID 19) Physical Exam Const alert and no apparent distress Constitutional Narrative: Super morbidly obese. General Appearance: cooperative HEENT normocephalic and head/scalp atraumatic Eyes PERRL, EOMs intact bilaterally and conjunctivae normal Neck supple Neck Narrative: Large neck circumference with redundant soft tissue. Chest inspection of chest normal Resp normal respiratory effort Auscultation: wheezes and diminished lung sounds Cardio regular rate and regular rhythm GI soft to palpation and non-tender Extremity no clubbing, cyanosis or edema Skin no rashes or lesions noted Neuro CN's II-XII intact bilaterally and no focal motor deficits Psych cooperative and affect normal Charges/Coding Visit Charges Inpatient E&M: 20037 Subs Hosp L2
[2023-11-26] MEDS: Azithromycin 500 MG in Dextrose 5%-Water (250mL Bag) 250 ML 250 MG IV (10:44)
--- NOTE | 2023-11-26 10:50 | PN_ITS ---
Subjective Subjective Patient seen and examined. She still complained of some shortness of breath. She is still coughing. She remains on Airvo. She denies any palpitations, dizziness, nausea, vomiting or any other symptoms. Review of systems is otherwise negative. Objective Data Objective Data Vital Signs: Vital Signs Temp Pulse Resp BP Pulse Ox O2 Del Method O2 Flow Rate 98.1 F 100 20 H 126/53 H 94 Airvo 45 11/26/23 10:46 11/26/23 10:46 11/26/23 10:46 11/26/23 10:46 11/26/23 10:46 11/26/23 10:46 11/26/23 10:46 FiO2 43 11/26/23 10:46 Oxygen Flow Rate (L/min) 45 Oxygen Delivery Method Airvo Weight: 332 lb 0.258 oz Body Mass Index (BMI) 52.0 Intake & Output: Intake and Output for Last 24 Hours 11/24/23 11/25/23 11/26/23 23:59 23:59 23:59 Intake Total 3445 / 3445 2465 / 2465 680 / 680 Output Total 850 / 850 2350 / 2850 1100 / 1100 Balance 2595 / 2595 115 / -385 -420 / -420 Lab / Micro Data 11/26/23 08:49 11/26/23 08:49 Labs: Laboratory Results - last 24 hr 11/26/23 08:49: WBC 9.2, RBC 3.89 L, Hgb 9.6 L, Hct 33.8 L, MCV 86.9, MCH 24.7 L , MCHC 28.4 L, RDW Std Deviation 44.9 H, RDW Coeff of David 14.1, Plt Count 254, MPV 12.0, Immature Gran % (Auto) 1.900 H, Neut % (Auto) 50.4, Lymph % (Auto) 38.5, [place] % (Auto) 8.6, Eos % (Auto) 0.2, Baso % (Auto) 0.4, Absolute Neuts (auto) 4.6, Absolute Lymphs (auto) 3.53, Nucleated RBC % 0, Differential Comment SCANNED, Atypical Lymphocytes 2+, Sodium 142, Potassium 3.2 L, Chloride 98, C arbon Dioxide 41.0 H, Anion Gap 3 L, BUN 21 H, Creatinine 0.74, Estim Creat Clear Calc 120.95, Est GFR (MDRD) Af Amer 102, Est GFR (MDRD) Non-Af 85, B UN/Creatinine Ratio 28.4 H, Glucose 94, Calcium 9.5 Micro: Microbiology 11/23/23 15:38 Blood Culture (Wb) - Right Hand Blood Culture - Preliminary No growth in 48 hours. 11/24/23 11:30 Urine, Clean Catch Legionella Antigen - Final 11/24/23 11:30 Urine, Clean Catch Streptococcus pneumoniae Antigen (M - Final 11/23/23 15:38 Mucosa - Nose SARS-CoV-2, Influenza & RSV (PCR) - Final SARS-CoV-2 (COVID 19) Physical Exam Const alert, oriented x3, no apparent distress and well nourished Constitutional Narrative: super morbid obesity General Appearance: cooperative HEENT normocephalic, moist oral mucous membranes, oropharynx normal and gingiva normal Eyes PERRL and EOMs intact bilaterally Neck no lymphadenopathy, supple and no JVD Lymph Lymphatic: no lymphadenopathy noted Resp Resp Narrative: diminished breath sounds bibasally, no wheezes or crackles. On Airvo at 45L/min, and FiO2 of 43%. Cardio regular rate, regular rhythm, S1 normal heart sound, S2 normal heart sound and no murmurs Peripheral Pulses: pulses 2+ throughout GI normal to inspection, nondistended, normoactive bowel sounds, soft to palpation, non-tender and non-distended Extremity normal capillary refill, no clubbing, cyanosis or edema and no calf tenderness General Extremity: no tenderness to palpation of joints or extremities Skin General Skin Exam: no breakdown Neuro CN's II-XII intact bilaterally, no focal motor deficits, no sensory deficits noted and deep tendon reflexes 2+ bilaterally Motor Exam: strength 5/5 throughout and general weakness Psych thought process normal, cooperative and affect normal Appearance: appropriate Assessment & Plan Assessment/Plan (1) Acute and chronic respiratory failure with hypoxia: (2) Pneumonia: (3) Morbid obesity: PLAN: Plan #Acute o chronic hypoxic respiratory failure due to COVID 19 infection and community acquired pneumonia * currently on AirVo at 45L/min and FiO2 of 43% * on dexamethasone, remdesivir and levaquin, azithromycin and vancomycin * breathing treatment with bronchodilators * titrate oxygen to maintain sats >90% * pulmonology on board * #Hypokalemia: K is 3.2. Will replace and trend. #Hyperlipidemia: on statin #COPD: on breathing treatment with bronchodilators. Titrate oxygen as needed to maintain sats >90% #Depression: on zoloft #Super morbid obesity: BMI is 52. Complicates acute care, expected recovery and prognosis. DVT prophylaxis; will start lovenox Charges/Coding Visit Charges Inpatient E&M: 70595 Subs Hosp L2
--- NOTE | 2023-11-26 10:56 | CASEMGMT ---
Discharge Planning Updates sent to [facility]. Asked if pt is [facility] bedhold. Awaiting response. Payal Li DC Planning Asst.
[2023-11-26 12:54] LABS: Vancomycin, Trough Level 32.5 ug/mL (5.0-15.0)
--- NOTE | 2023-11-26 13:09 | PCM.RX.CS ---
Consult Antibiotic Management Pharmacy has been consulted to manage selected antibiotic: Vancomycin Type of Intervention Type of Consult: Follow-up Labs Labs: Sodium 142 mmol/L (136-145) 11/26/23 08:49 Potassium 3.2 mmol/L (3.5-5.1) L 11/26/23 08:49 Chloride 98 mmol/L (98-107) 11/26/23 08:49 Carbon Dioxide 41.0 mmol/L (21.0-32.0) H 11/26/23 08:49 Anion Gap 3 (5-15) L 11/26/23 08:49 BUN 21 mg/dL (7-18) H 11/26/23 08:49 Creatinine 0.74 mg/dL (0.55-1.02) 11/26/23 08:49 Est GFR (MDRD) Af Amer 102 mL/min (>60) 11/26/23 08:49 Est GFR (MDRD) Non-Af 85 mL/min (>60) 11/26/23 08:49 BUN/Creatinine Ratio 28.4 RATIO (10-20) H 11/26/23 08:49 Glucose 94 mg/dL (74-106) 11/26/23 08:49 Vancomycin Trough 32.5 ug/mL (5.0-15.0) H 11/26/23 12:10 Microbiology Microbiology: Microbiology 11/23/23 15:38 Blood Culture (Wb) - Right Hand Blood Culture - Preliminary No growth in 48 hours. 11/24/23 11:30 Urine, Clean Catch Legionella Antigen - Final 11/24/23 11:30 Urine, Clean Catch Streptococcus pneumoniae Antigen (M - Final 11/23/23 15:38 Mucosa - Nose SARS-CoV-2, Influenza & RSV (PCR) - Final SARS-CoV-2 (COVID 19) Pharmacy Plan for Drug Dosing Pharmacy Plan for Drug Dosing: VANCOMYCIN LEVEL RECEIVED Current Vancomycin Dose: 1500MG Q12 Number of Doses Received: 6 Vancomycin Level: 32.5 mg/dL Hours Since Last Dose: 12 Renal Function: SCr 0.74 mg/dL, CrCl 120 mL/min Renal Function Trend: stable Lab/Micro: BCX - no growth Vancomycin Plan/Comments: 12 hour trough is supratherapeutic at 32.5 mg/dL (goal 15-20). Will hold further dosing at this time and get a random level in 12 hours. Pending Level: 11/27/23 @ 0000 Pharmacy Service will continue to monitor and adjust dosing as required.
[2023-11-26] MEDS: Potassium Chloride Oral Tablet 20 MEQ 40 MEQ PO (17:30)
[2023-11-26] MEDS: Sertraline 100 MG Tablet 200 MG PO (21:22)
[2023-11-26] MEDS: Amitriptyline 25 MG Tablet PO (21:22)
[2023-11-26] MEDS: Atorvastatin Calcium 20 MG Tablet PO (21:22)
[2023-11-26] MEDS: Remdesivir 100 MG in 0.9% Normal Saline (250mL Bag) 230 ML 250 MG IV (21:28)
--- NOTE | 2023-11-26 23:16 | CPS ---
Patient refused PAP therapy for night time use.
[2023-11-27] VITALS (11 sets, daily range): BP systolic 108–124; BP diastolic 60–74; PULSE 71–88; RESP 18–20; TEMP 35.7–36.8; O2SAT 88–96; BMI 52.1
--- NOTE | 2023-11-27 01:00 | PCM.RX.CS ---
Consult Antibiotic Management Pharmacy has been consulted to manage selected antibiotic: Vancomycin Type of Intervention Type of Consult: Follow-up Suspected Infection Suspected Infection: Pneumonia Labs Labs: Sodium 142 mmol/L (136-145) 11/26/23 08:49 Potassium 3.2 mmol/L (3.5-5.1) L 11/26/23 08:49 Chloride 98 mmol/L (98-107) 11/26/23 08:49 Carbon Dioxide 41.0 mmol/L (21.0-32.0) H 11/26/23 08:49 Anion Gap 3 (5-15) L 11/26/23 08:49 BUN 21 mg/dL (7-18) H 11/26/23 08:49 Creatinine 0.74 mg/dL (0.55-1.02) 11/26/23 08:49 Est GFR (MDRD) Af Amer 102 mL/min (>60) 11/26/23 08:49 Est GFR (MDRD) Non-Af 85 mL/min (>60) 11/26/23 08:49 BUN/Creatinine Ratio 28.4 RATIO (10-20) H 11/26/23 08:49 Glucose 94 mg/dL (74-106) 11/26/23 08:49 Vancomycin Trough 32.5 ug/mL (5.0-15.0) H 11/26/23 12:10 Random Vancomycin 21.0 ug/mL (0.0-15.0) H 11/27/23 00:05 Microbiology Microbiology: Microbiology 11/23/23 15:38 Blood Culture (Wb) - Right Hand Blood Culture - Preliminary No growth in 48 hours. 11/24/23 11:30 Urine, Clean Catch Legionella Antigen - Final 11/24/23 11:30 Urine, Clean Catch Streptococcus pneumoniae Antigen (M - Final 11/23/23 15:38 Mucosa - Nose SARS-CoV-2, Influenza & RSV (PCR) - Final SARS-CoV-2 (COVID 19) Dosing Weight Weight used for dosin.6 kg Estimated Creatinine Clearance Estimated Creatinine Clearance: 121 Goal Trough Goal Trough: 15-20 mcg/mL Pharmacy Plan for Drug Dosing Pharmacy Plan for Drug Dosing: Vancomycin random level was still high at 21.0. This was a 24hr level. Since it's above 20mcg/ml we will continue to hold dosing. Another random level will be drawn in 12 hours to determine further dosing. Pharmacy Service will continue to monitor and adjust dosing as required. Follow-Up Labs Follow-Up Labs: Trough: Vancomycin (random) Date/Time Labs Ordered Labs to be done on [date and time ordered]: 11/27/23 @1200 (random)
[2023-11-27] MEDS: Ipratropium/Albuterol Sulfate 3 ML AMPUL.NEB INHALATION ×5 (07:28→23:03)
[2023-11-27 07:38] LABS: Absolute Lymphocyte Count 3.58 X10^3/uL (0.83-4.51); Absolute Neutrophil Count 5.2 X10^3/uL (2.0-7.7); Basophil# 0.03 X10^3/uL; Basophil% 0.3 % (0-1); Eosinophil# 0.06 X10^3/uL; Eosinophils% 0.6 % (0-5); Hematocrit 35.5 % (37-47); Hemoglobin 10.2 g/dL (12.0-15.0); Lymphocyte # 3.58 X10^3/ul (0.83-4.51); Lymphocyte % 35.6 % (19-41); Mean Corp Hgb Conc 28.7 g/dL (32-36); Mean Corpuscular Hgb 24.4 pg (27.0-32.0); Mean Corpuscular Volume 84.9 fL (81-99); Mean Platelet Vol. 11.6 fl (6.2-12.0); Monocyte% 8.9 % (0-10); NRBC Flagged by Analyzer 0 % (0-5); Neutrophil # 5.16 X10^3/uL (2.7-7.7); Neutrophil % 51.2 % (47-70); Platelet Count 269 K/mm3 (150-450); RBC Distribution Width CV 14.1 % (11.6-14.6); RBC Distribution Width SD 43.5 fl (35.1-43.9); Red Blood Count 4.18 M/mm3 (4.2-5.4); White Blood Count 10.1 K/mm3 (4.4-11.0)
[2023-11-27 08:05] LABS: Anion Gap 2 (5-15); BUN 24 mg/dL (7-18); BUN/Creat Ratio 37.7 RATIO (10-20); Calcium,Total 9.8 mg/dL (8.5-10.1); Chloride 97 mmol/L (98-107); Creatinine, Serum 0.64 mg/dL (0.55-1.02); EST Glomerular Filtration Rate 101 mL/min (>60); Est Glom Filt Rate - Afr Amer 122 mL/min (>60); Estimated Creatinine Clearance 140.02 ml/min; Glucose 87 mg/dL (74-106); Potassium 3.3 mmol/L (3.5-5.1); Sodium Level 142 mmol/L (136-145)
[2023-11-27] MEDS: Montelukast 10 MG Tablet PO (09:12)
[2023-11-27] MEDS: Gabapentin 100 MG Capsule 200 MG PO ×2 (09:12→21:03)
[2023-11-27] MEDS: Loratadine 10 MG Tablet PO (09:12)
[2023-11-27] MEDS: Dicyclomine 10 MG Capsule PO ×4 (09:13→21:03)
[2023-11-27] MEDS: Pantoprazole Sodium 40 MG Tablet PO (09:13)
[2023-11-27] MEDS: Furosemide 20 MG/2 ML VIAL IV ×2 (09:13→17:51)
[2023-11-27] MEDS: dexAMETHasone 10 MG/ML Vial 6 MG IV (09:13)
[2023-11-27] MEDS: busPIRone 5 MG Tablet PO ×2 (09:13→21:20)
[2023-11-27] MEDS: levoFLOXacin IV 750 MG/150 ML BAG 100 MG IV (09:13)
[2023-11-27] MEDS: Menthol/Lanolin/Calamine/Znox 113 GM Tube 1 APPLIC TOPICAL ×3 (09:24→17:51)
[2023-11-27] MEDS: Azithromycin 500 MG in Dextrose 5%-Water (250mL Bag) 250 ML 250 MG IV (11:09)
[2023-11-27] MEDS: Loperamide 2 MG Capsule PO ×2 (11:09→21:03)
--- NOTE | 2023-11-27 11:51 | PN_ITS ---
Subjective Subjective Patient seen and examined. She had no complaints and says she felt much better today. She had been weaned off of Airvo later this morning to 2 L of oxygen. She is refusing DVT prophylaxis with anticoagulants. Review of systems otherwise negative. Objective Data Objective Data Vital Signs: Vital Signs Temp Pulse Resp BP Pulse Ox O2 Del Method O2 Flow Rate 97.6 F L 84 18 121/68 H 96 Nasal Cannula 2 11/27/23 09:08 11/27/23 09:08 11/27/23 09:08 11/27/23 09:08 11/27/23 10:12 11/27/23 10:12 11/27/23 10:12 FiO2 36 11/27/23 09:08 Oxygen Flow Rate (L/min) 2 Oxygen Delivery Method Nasal Cannula Weight: 332 lb 10.841 oz Body Mass Index (BMI) 52.1 Intake & Output: Intake and Output for Last 24 Hours 11/25/23 11/26/23 11/27/23 23:59 23:59 23:59 Intake Total 2465 / 2465 1185 / 1435 550 / 550 Output Total 2350 / 2850 1600 / 2250 1350 / 1350 Balance 115 / -385 -415 / -815 -800 / -800 Lab / Micro Data 11/27/23 07:11 11/27/23 07:11 Labs: Laboratory Results - last 24 hr 11/26/23 12:10: Vancomycin Trough 32.5 H 11/27/23 00:05: Random Vancomycin 21.0 H 11/27/23 07:11: WBC 10.1, RBC 4.18 L, Hgb 10.2 L, Hct 35.5 L, MCV 84.9, MCH 24.4 L, MCHC 28.7 L, RDW Std Deviation 43.5, RDW Coeff of David 14.1, Plt Count 269, MPV 11.6, Immature Gran % (Auto) 3.400 H, Neut % (Auto) 51.2, Lymph % (Auto) 35.6, [place]bert % (Auto) 8.9, Eos % (Auto) 0.6, Baso % (Auto) 0.3, Absolute Neuts (auto) 5.2, Absolute Lymphs (auto) 3.58, Nucleated RBC % 0, Sodium 142, P otassium 3.3 L, Chloride 97 L, Carbon Dioxide 43.0 H, Anion Gap 2 L, BUN 24 H, Creatinine 0.64, Estim Creat Clear Calc 140.02, Est GFR (MDRD) Af Amer 122, Est GFR (MDRD) Non-Af 101, BUN/Creatinine Ratio 37.7 H, Glucose 87, Calcium 9.8 Micro: Microbiology 11/23/23 15:38 Blood Culture (Wb) - Right Hand Blood Culture - Preliminary No growth in 48 hours. 11/24/23 11:30 Urine, Clean Catch Legionella Antigen - Final 11/24/23 11:30 Urine, Clean Catch Streptococcus pneumoniae Antigen (M - Final 11/23/23 15:38 Mucosa - Nose SARS-CoV-2, Influenza & RSV (PCR) - Final SARS-CoV-2 (COVID 19) Physical Exam Const alert, oriented x3, no apparent distress and well nourished; Negative for average body habitus or healthy appearing Constitutional Narrative: super morbid obesity General Appearance: cooperative, well kempt and well developed Orientation / Consciousness: awake, oriented to person, oriented to place and oriented to time HEENT normocephalic, head/scalp atraumatic, moist oral mucous membranes, oropharynx normal and gingiva normal Eyes PERRL, EOMs intact bilaterally and conjunctivae normal Neck no lymphadenopathy, supple, no JVD, thyroid normal and no carotid bruits General: trachea midline Lymph Lymphatic: no lymphadenopathy noted Resp Resp Narrative: weaned off Airvo and on 2L of oxygen by nasal canula. Mildly diminished breath sounds bibasilarly. No wheezes or crackles. Auscultation: Negative for crackles, rales, rhonchi or wheezes Cardio regular rate, regular rhythm, S1 normal heart sound, S2 normal heart sound and no murmurs Peripheral Pulses: pulses 2+ throughout GI normal to inspection, nondistended, normoactive bowel sounds, soft to palpation, non-tender and non-distended GI Narrative: Large protuberant abdomen Extremity normal capillary refill, no clubbing, cyanosis or edema and no calf tenderness Extremity Narrative: Pedal and radial pulses are 2+ General Extremity: no tenderness to palpation of joints or extremities Skin no rashes or lesions noted, no jaundice, no petechiae and no mottling General Skin Exam: no breakdown Neuro oriented x3, CN's II-XII intact bilaterally, moves all extremities, no focal motor deficits, no sensory deficits noted and deep tendon reflexes 2+ bilaterally Sensorium / Orientation: awake and alert Speech: speech normal Motor Exam: strength 5/5 throughout and general weakness Psych thought process normal, cooperative and affect normal Appearance: appropriate Assessment & Plan Assessment/Plan (1) Acute and chronic respiratory failure with hypoxia: (2) Pneumonia: (3) Morbid obesity: PLAN: Plan #Acute o chronic hypoxic respiratory failure due to COVID 19 infection and community acquired pneumonia * Weaned off of Airvo and now on 2 L of oxygen via nasal cannula. * on dexamethasone, remdesivir and levaquin, azithromycin and vancomycin * breathing treatment with bronchodilators * titrate oxygen to maintain sats >90% * pulmonology on board * #Hypokalemia: K is 3.3. Will replace and trend. #Hyperlipidemia: on statin #COPD: on breathing treatment with bronchodilators. Titrate oxygen as needed to maintain sats >90% #Depression: on zoloft #Super morbid obesity: BMI is 52. Complicates acute care, expected recovery and prognosis. DVT prophylaxis; patient refusing Lovenox or heparin. She says she lived in [place] for 20 years and her blood was thinned enough by her stay in [place]. When I sought to clarify what she meant by her blood being thinned enough in [place], she says just living in [place] for 20 years thinned out her blood and so she is not interested in any anticoagulants. She was counseled about the increased risk of blood clots with COVID but is adamant that her blood is thin and often so she will not take any anticoagulants. Charges/Coding Visit Charges Inpatient E&M: 05424 Subs Hosp L2
[2023-11-27] MEDS: Potassium Chloride Oral Tablet 20 MEQ 40 MEQ PO (12:53)
[2023-11-27 13:29] LABS: Vancomycin, Random Level 14.6 ug/mL (0.0-15.0)
--- NOTE | 2023-11-27 13:52 | PCM.RX.CS ---
Consult Antibiotic Management Pharmacy has been consulted to manage selected antibiotic: Vancomycin Type of Intervention Type of Consult: Follow-up Suspected Infection Suspected Infection: Pneumonia Prior Doses of Antibiotics Prior Doses of Antibiotics Received/Current Regimen: the patient is not currently on a scheduled dose due to high vanc levels but the most recent dose was 1500mg IV q12h Labs Labs: Sodium 142 mmol/L (136-145) 11/27/23 07:11 Potassium 3.3 mmol/L (3.5-5.1) L 11/27/23 07:11 Chloride 97 mmol/L (98-107) L 11/27/23 07:11 Carbon Dioxide 43.0 mmol/L (21.0-32.0) H 11/27/23 07:11 Anion Gap 2 (5-15) L 11/27/23 07:11 BUN 24 mg/dL (7-18) H 11/27/23 07:11 Creatinine 0.64 mg/dL (0.55-1.02) 11/27/23 07:11 Est GFR (MDRD) Af Amer 122 mL/min (>60) 11/27/23 07:11 Est GFR (MDRD) Non-Af 101 mL/min (>60) 11/27/23 07:11 BUN/Creatinine Ratio 37.7 RATIO (10-20) H 11/27/23 07:11 Glucose 87 mg/dL (74-106) 11/27/23 07:11 Vancomycin Trough 32.5 ug/mL (5.0-15.0) H 11/26/23 12:10 Random Vancomycin 14.6 ug/mL (0.0-15.0) 11/27/23 11:57 Microbiology Microbiology: Microbiology 11/23/23 15:38 Blood Culture (Wb) - Right Hand Blood Culture - Preliminary No growth in 48 hours. 11/24/23 11:30 Urine, Clean Catch Legionella Antigen - Final 11/24/23 11:30 Urine, Clean Catch Streptococcus pneumoniae Antigen (M - Final 11/23/23 15:38 Mucosa - Nose SARS-CoV-2, Influenza & RSV (PCR) - Final SARS-CoV-2 (COVID 19) Dosing Weight Weight used for dosin.9 kg Estimated Creatinine Clearance Estimated Creatinine Clearance: >100ml/min Goal Trough Goal Trough: 15-20 mcg/mL Pharmacy Plan for Drug Dosing Pharmacy Plan for Drug Dosing: The vanc random level drawn at 11:57 today was 14.6. This is back below 20 so will resume dosing at a newly calculated dose of 1500mg IV q24h. Will check a trough before the 3rd dose. Pharmacy Service will continue to monitor and adjust dosing as required. Follow-Up Labs Follow-Up Labs: Trough: Vancomycin Date/Time Labs Ordered Labs to be done on [date and time ordered]: 11/29/23 13:30
[2023-11-27] MEDS: Vancomycin HCl 1,500 MG in 0.9% Normal Saline (500mL Bag) 500 ML 250 MG IV (14:12)
--- NOTE | 2023-11-27 16:09 | CASEMGMT ---
Social Work SW messaged [facility] and requested advance directives be sent to [facility] to be placed on pt chart. AMOS Servin
[2023-11-27] MEDS: Atorvastatin Calcium 20 MG Tablet PO (21:03)
[2023-11-27] MEDS: Benzonatate 100 MG Capsule 200 MG PO (21:03)
[2023-11-27] MEDS: Sertraline 100 MG Tablet 200 MG PO (21:20)
[2023-11-27] MEDS: Remdesivir 100 MG in 0.9% Normal Saline (250mL Bag) 230 ML 250 MG IV (21:21)
--- NOTE | 2023-11-27 23:07 | CPS ---
Pt is refusing to wear BiPAP for tonight.
[2023-11-28 03:50] VITALS: BP 112/70; PULSE 79; RESP 18; TEMP 36.1; O2SAT 96
[2023-11-28 06:00] VITALS: BMI 52.1
[2023-11-28 07:26] LABS: Absolute Lymphocyte Count 3.79 X10^3/uL (0.83-4.51); Absolute Neutrophil Count 7.6 X10^3/uL (2.0-7.7); Basophil% 0.8 % (0-1); Eosinophil# 0.07 X10^3/uL; Eosinophils% 0.5 % (0-5); Hematocrit 35.6 % (37-47); Hemoglobin 10.2 g/dL (12.0-15.0); Lymphocyte # 3.79 X10^3/ul (0.83-4.51); Lymphocyte % 29.2 % (19-41); Mean Corp Hgb Conc 28.7 g/dL (32-36); Mean Corpuscular Hgb 24.2 pg (27.0-32.0); Mean Corpuscular Volume 84.4 fL (81-99); Mean Platelet Vol. 12.2 fl (6.2-12.0); Monocyte% 7.7 % (0-10); NRBC Flagged by Analyzer 0 % (0-5); Neutrophil # 7.55 X10^3/uL (2.7-7.7); Platelet Count 281 K/mm3 (150-450); RBC Distribution Width CV 14.3 % (11.6-14.6); RBC Distribution Width SD 43.6 fl (35.1-43.9); Red Blood Count 4.22 M/mm3 (4.2-5.4)
[2023-11-28] MEDS: Ipratropium/Albuterol Sulfate 3 ML AMPUL.NEB INHALATION ×2 (07:43→11:10)
[2023-11-28 07:44] VITALS: PULSE 75; RESP 14; O2SAT 90
[2023-11-28 08:37] LABS: Anion Gap 4 (5-15); BUN 23 mg/dL (7-18); BUN/Creat Ratio 36.2 RATIO (10-20); Calcium,Total 9.5 mg/dL (8.5-10.1); Chloride 98 mmol/L (98-107); Creatinine, Serum 0.64 mg/dL (0.55-1.02); EST Glomerular Filtration Rate 101 mL/min (>60); Est Glom Filt Rate - Afr Amer 122 mL/min (>60); Estimated Creatinine Clearance 140.08 ml/min; Glucose 84 mg/dL (74-106); Potassium 3.3 mmol/L (3.5-5.1); Sodium Level 140 mmol/L (136-145)
--- NOTE | 2023-11-28 08:37 | PN.CC_ITS ---
Assessment & Plan Assessment/Plan (1) Morbid obesity: (2) COVID-19: (3) Acute on chronic respiratory failure with hypoxia and hypercapnia: PLAN: Plan RECOMMENDATIONS: 1. Supplemental oxygen to maintain saturations at or above 90%. 2. Continue empiric antibiotics to complete 7 days of therapy. 3. Continue Decadron to complete 10 days of therapy. Remdesivir has been completed. 4. Gentle diuresis as tolerated by hemodynamics and renal function. 5. Strongly recommend pharmacologic DVT prophylaxis. However, patient refused. 6. Continue BiPAP therapy with naps and nightly. 7. The patient can be discharged home when she can maintain saturations on 6 L/min or less of supplemental oxygen. 8. Will sign off at this time. Please call with any additional questions. IMPRESSIONS: 1. Acute on chronic combined respiratory failure secondary to COVID-19 and concern for bacterial right lower lobe pneumonia The patient remains on appropriate medical therapy including supplemental oxygen to maintain saturations at or above 90%, along with empiric antimicrobials and Decadron. She has completed a course of remdesivir. I agree with continuing diuretics as tolerated by hemodynamics and renal function. The patient has refused pharmacologic DVT prophylaxis. Continue to encourage incentive spirometer use and mobilize patient as tolerated. I have no new additional recommendations from a pulmonary perspective. 2. History of obstructive sleep apnea/alveolar hypoventilation secondary to obesity Continue BiPAP therapy with naps and nightly. 3. Super morbid obesity/history of GERD/chronic pain syndrome/irritable bowel syndrome/hypertension/hyperlipidemia Complicates care, management, recovery and prognosis. Continue home medications as indicated. This note was generated with SureVisit dictation software. It may contain incorrect words, spelling, and punctuation that were not noted in checking the note before signing. Subjective Subjective The patient was seen and examined at the bedside this morning. Events from the last 24 hours have been reviewed. The patient is currently afebrile, hemodynamically stable and maintaining appropriate oxygen saturations on 4 L/min via nasal cannula. The patient remains on antimicrobials, Lasix and Decadron. She has completed her course of remdesivir. The patient has continued to refuse pharmacologic DVT prophylaxis. Potassium is low this morning at 3.3. Objective Data Objective Data The patient's most recent lab work, culture data and imaging studies have all been personally reviewed. COVID PCR was positive on November 22. Vital Signs: Vital Signs Temp Pulse Resp BP Pulse Ox O2 Del Method O2 Flow Rate 97.0 F L 75 14 112/70 90 Nasal Cannula 4 11/28/23 03:50 11/28/23 07:44 11/28/23 07:44 11/28/23 03:50 11/28/23 07:44 11/28/23 07:44 11/28/23 07:44 FiO2 36 11/27/23 09:08 Oxygen Flow Rate (L/min) 4 Oxygen Delivery Method Nasal Cannula Weight: 332 lb 14.368 oz Body Mass Index (BMI) 52.1 Intake & Output: Intake and Output for Last 24 Hours 11/26/23 11/27/23 11/28/23 23:59 23:59 23:59 Intake Total 1185 / 1435 1585 / 1935 350 / 350 Output Total 1600 / 2250 1850 / 2400 550 / 550 Balance -415 / -815 -265 / -465 -200 / -200 Lab / Micro Data Attestation: I reviewed the patient's lab results. 11/28/23 06:25 11/27/23 07:11 Labs: Laboratory Results - last 24 hr 11/27/23 11:57: Random Vancomycin 14.6 11/28/23 06:25: WBC 13.0 H, RBC 4.22, Hgb 10.2 L, Hct 35.6 L, MCV 84.4, MCH 24.2 L, MCHC 28.7 L, RDW Std Deviation 43.6, RDW Coeff of David 14.3, Plt Count 281, M PV 12.2 H, Immature Gran % (Auto) 3.800 H, Neut % (Auto) 58.0, Lymph % (Auto) 29.2, [place] % (Auto) 7.7, Eos % (Auto) 0.5, Baso % (Auto) 0.8, Absolute Neuts (auto) 7.6, Absolute Lymphs (auto) 3.79, Nucleated RBC % 0 Micro: Microbiology 11/23/23 15:38 Blood Culture (Wb) - Right Hand Blood Culture - Preliminary No growth in 48 hours. 11/24/23 11:30 Urine, Clean Catch Legionella Antigen - Final 11/24/23 11:30 Urine, Clean Catch Streptococcus pneumoniae Antigen (M - Final 11/23/23 15:38 Mucosa - Nose SARS-CoV-2, Influenza & RSV (PCR) - Final SARS-CoV-2 (COVID 19) Physical Exam Const alert and no apparent distress Constitutional Narrative: Super morbidly obese. General Appearance: cooperative HEENT normocephalic and head/scalp atraumatic Eyes PERRL, EOMs intact bilaterally and conjunctivae normal Neck supple Neck Narrative: Large neck circumference with redundant soft tissue. Chest inspection of chest normal Resp normal respiratory effort Auscultation: wheezes and diminished lung sounds Cardio regular rate and regular rhythm GI soft to palpation and non-tender Extremity no clubbing, cyanosis or edema Skin no rashes or lesions noted Neuro CN's II-XII intact bilaterally and no focal motor deficits Psych cooperative and affect normal Charges/Coding Visit Charges Inpatient E&M: 99559 Subs Hosp L2
[2023-11-28 08:38] VITALS: BP 113/63; PULSE 79; RESP 20; TEMP 36.4; O2SAT 93
[2023-11-28] MEDS: Loratadine 10 MG Tablet PO (08:40)
[2023-11-28] MEDS: Dicyclomine 10 MG Capsule PO (08:40)
[2023-11-28] MEDS: busPIRone 5 MG Tablet PO (08:40)
[2023-11-28] MEDS: dexAMETHasone 10 MG/ML Vial 6 MG IV (08:40)
[2023-11-28] MEDS: Montelukast 10 MG Tablet PO (08:41)
[2023-11-28] MEDS: Furosemide 20 MG/2 ML VIAL IV (08:41)
[2023-11-28] MEDS: Azithromycin 500 MG in Dextrose 5%-Water (250mL Bag) 250 ML 250 MG IV (08:41)
[2023-11-28] MEDS: Pantoprazole Sodium 40 MG Tablet PO (08:42)
[2023-11-28 09:00] VITALS: BP 113/63; PULSE 79; RESP 20; TEMP 36.4; O2SAT 93
--- NOTE | 2023-11-28 09:12 | NURSING ---
Pt asking nursing staff to cut matted portion of hair from the back of her head. States she has asked several people and no one will assist her.
[2023-11-28] MEDS: levoFLOXacin IV 750 MG/150 ML BAG 100 MG IV (09:54)
[2023-11-28] MEDS: Gabapentin 100 MG Capsule 200 MG PO (09:54)
--- NOTE | 2023-11-28 10:18 | NURSING ---
Matted area cut from patients hair at her request.
[2023-11-28] MEDS: Menthol/Lanolin/Calamine/Znox 113 GM Tube 1 APPLIC TOPICAL (10:29)
--- NOTE | 2023-11-28 11:06 | TREXTCAR_ITS ---
Diet Diet Order/Speech Therapy: 11/27/23 13:51 Diet: Cardiac - Heart Healthy Type of Dietary Supplement:: Magic Cup Dessert Diet Comments: vanilla magic cup with dinner Routine Orders/Code Status Enema Type: Fleetz Enema Frequency: Daily PRN Suppository Type: Dulcolax 10mg Suppository Frequency: Daily PRN O2 Frequency: PRN Keep PO Greater than or Equal to (%): 90 Therapies Weight Bearing: Weight bearing as tolerated Physical Therapy: Eval and Treat Occupational Therapy: Eval and Treat Problem/Diagnosis (1) Morbid obesity: Status: Acute Code(s): E66.01 - Morbid (severe) obesity due to excess calories (2) COVID-19: Status: Acute Code(s): U07.1 - COVID-19 (3) Acute on chronic respiratory failure with hypoxia and hypercapnia: Status: Chronic Code(s): J96.21 - Acute and chronic respiratory failure with hypoxia; J96.22 - Acute and chronic respiratory failure with hypercapnia Plan #Acute o chronic hypoxic respiratory failure due to COVID 19 infection and community acquired pneumonia * Weaned off of Airvo and now on 2 L of oxygen via nasal cannula. * on dexamethasone, remdesivir and levaquin, azithromycin and vancomycin * breathing treatment with bronchodilators * titrate oxygen to maintain sats >90% * pulmonology on board * #Hypokalemia: K is 3.3. Will replace and trend. #Hyperlipidemia: on statin #COPD: on breathing treatment with bronchodilators. Titrate oxygen as needed to maintain sats >90% #Depression: on zoloft #Super morbid obesity: BMI is 52. Complicates acute care, expected recovery and prognosis. DVT prophylaxis; patient refusing Lovenox or heparin. She says she lived in [place] for 20 years and her blood was thinned enough by her stay in [place]. When I sought to clarify what she meant by her blood being thinned enough in [place], she says just living in [place] for 20 years thinned out her blood and so she is not interested in any anticoagulants. She was counseled about the inc reased risk of blood clots with COVID but is adamant that her blood is thin and often so she will not take any anticoagulants. Allergies/Procedures Done in Hospital Allergies aspirin Allergy (Verified 07/26/23 13:33) Other black pepper (pepper) Allergy (Verified 07/26/23 13:33) Other coconut Allergy (Verified 07/26/23 13:33) Other codeine Allergy (Verified 07/26/23 13:33) Other ibuprofen Allergy (Verified 07/26/23 13:33) Other Influenza Virus Vaccines Allergy (Verified 07/26/23 13:33) Other Penicillins Allergy (Verified 07/26/23 13:33) Anaphylaxis rice Allergy (Verified 07/26/23 13:33) Other tetanus and diphtheria toxoids Allergy (Verified 07/26/23 13:33) Other Tetanus Vaccines and Toxoid Allergy (Verified 07/26/23 13:33) Other Type of Care/Length of Stay Estimated LOS: More Than 30 Days Type of Care Needed: Intermediate Rehab Potential: Fair Prognosis: Fair Additional Orders/Day of Discharge Day of Discharge: 11/28/23 Dietary and Speech Recommendations Dietitian Recommendations/Changes: Adjust to cardiac diet d/t medical history of HTN, HLD, TIA, HFrEF. Will order vanilla magic cup with dinner. If PO intake improves, will d/c magic cup. Reviewed and approved by Katie Medina, RD, LD. Discharge Plan Admission Admit Date/Time: 11/23/23 18:39 Primary Reason for Your Visit: acute hypoxic respiratory failure due to COVID Attending Provider: Kalyani Mack Primary Care Provider: Sepideh Patterson Consulting Providers: Marina Armas; Alejandro Morillo Instructions Patient Instructions: Coronavirus Disease 2019 (COVID-19): Overview, Coronavirus Disease 2019 (COVID-19): Caring for Yourself or Others Discharge Orders/Prescriptions Prescriptions: New dexamethasone 6 mg tablet 6 mg PO DAILY Qty: 5 0RF Continued losartan 50 mg Tablet 50 mg PO DAILY atorvastatin 20 mg Tablet 20 mg PO QHS sertraline [Zoloft] 100 mg Tablet 200 mg PO QHS Rx Instructions: pt ecf medication list has pt currently on 150mg tablet and 2 25mg tablets. totaling 200mg zoloft q hs famotidine 20 mg Tablet 20 mg PO QHS amitriptyline 25 mg Tablet 25 mg PO QODAY montelukast 10 mg Tablet 10 mg PO DAILY fluticasone propionate 50 mcg/actuation [place],Suspension 2 spray INTRANASAL BID PRN (Reason: NASAL CONGESTION) omeprazole 20 mg Tablet,Delayed Release (Dr/Ec) 20 mg PO DAILY roflumilast [Daliresp] 500 mcg Tablet 500 mcg PO DAILY dicyclomine 10 mg Capsule 10 mg PO 4X/DAY Qty: 1 0RF albuterol sulfate 90 mcg/actuation Hfa Aerosol Inhaler 2 puff INHALATION Q2H PRN (Reason: SOB) cholecalciferol (vitamin D3) 50 mcg (2,000 unit) tablet 50 mcg PO DAILY sertraline 50 mg tablet 50 mg PO DAILY Rx Instructions: TAKE ONE 50MG AND ONE 100MG TABLET TOGETHER ONCE DAILY FOR A TOTAL DAILY DOSE OF 150MG. loperamide [Imodium A-D] 2 mg capsule 2 mg PO Q8H PRN (Reason: DIARRHEA ) albuterol sulfate 0.63 mg/3 mL solution for nebulization 0.63 mg inhalation 4X/DAY PRN (Reason: shortness of breath or wheezing) acetaminophen 650 mg suppository 650 mg ND Q4H PRN (Reason: pain) buspirone 5 mg tablet 5 mg PO BID Fleet Enema 19-7 gram/118 mL enema 118 ml ND DAILY PRN (Reason: constipation) Rx Instructions: USE FOR UP TO 2 EPISODES IF DULCOLAX SUPPOSITORY INEFFECTIVE. CALL PHYSICIAN IF NO BM FOR 4 DAYS guaifenesin [Adult Tussin Chest Congestion] 100 mg/5 mL liquid 200 mg PO Q4H PRN (Reason: cough) furosemide 20 mg tablet 40 mg PO DAILY loratadine [Allergy Relief (loratadine)] 10 mg tablet 10 mg PO DAILY trazodone 50 mg tablet 50 mg PO QHS ondansetron HCl 4 mg tablet 4 mg PO Q8H PRN (Reason: nausea and vomiting) topiramate 25 mg tablet 25 mg PO DAILY acetaminophen 325 mg Tablet 650 mg PO Q4H PRN (Reason: Fever, pain 1-01/16) alum-mag hydroxide-simeth [Mag-Al Plus Extra Strength] 400-400-40 mg/5 mL Suspension 30 ml PO Q6H PRN (Reason: Gastric Burning) menthol-zinc oxide [Calmoseptine] 0.44-20.6 % Ointment 1 applic topical 4X/DAY Protocol: *Topical Application Instructions APPLICATION INSTRUCTIONS: apply to affected region Rx Instructions: APPLY TO BUTTOCK 4 TIMES A DAY FOR EXCORIATION gabapentin 100 mg capsule 200 mg PO BID melatonin 5 mg capsule Discontinued prednisone 10 mg tablet 10 mg PO DAILY Referrals / Follow Up: Sepideh Patterson MD [Primary Care Provider] - Within 1 Week Disposition Disposition (needs filled in before D/C Order can be placed): Long-Term Facility
[2023-11-28 11:11] VITALS: PULSE 94; RESP 16; O2SAT 97
--- NOTE | 2023-11-28 11:18 | PHA.DC_ITS ---
Pharmacy [place] Med Reconciliation Pharmacy Service has performed discharge medication reconciliation for this patient. D/C to [facility], medications reviewed. The patient's discharge medication list was reviewed for discrepancies and discrepancies were resolved. Medications at Discharge Home Medications amitriptyline 25 mg tablet 25 mg PO QODAY DEPRESSION 05/03/22 atorvastatin 20 mg tablet 20 mg PO QHS CHOLESTEROL 05/03/22 famotidine 20 mg tablet 20 mg PO QHS GERD 05/03/22 fluticasone propionate 50 mcg/actuation nasal spray,suspension 2 spray intranasal BID PRN NASAL CONGESTION 05/03/22 losartan 50 mg tablet 50 mg PO DAILY BLOOD PRESSURE 05/03/22 montelukast 10 mg tablet 10 mg PO DAILY ALLERGIES 05/03/22 omeprazole 20 mg tablet,delayed release 20 mg PO DAILY GERD 05/03/22 roflumilast 500 mcg tablet (Daliresp) 500 mcg PO DAILY ASTHMA 05/03/22 sertraline 100 mg tablet (Zoloft) 200 mg PO QHS DEPRESSION 05/03/22 dicyclomine 10 mg capsule 10 mg PO 4X/DAY IRRITABLE BOWELS #1 cap 05/05/22 albuterol sulfate 90 mcg/actuation aerosol inhaler 2 puff inhalation Q2H PRN SOB 09/08/22 cholecalciferol (vitamin D3) 50 mcg (2,000 unit) tablet 50 mcg PO DAILY SUPPLEMENT 04/16/23 loperamide 2 mg capsule (Imodium A-D) 2 mg PO Q8H PRN DIARRHEA 04/16/23 sertraline 50 mg tablet 50 mg PO DAILY DEPRESSION 04/16/23 acetaminophen 325 mg tablet 650 mg PO Q4H PRN Fever, pain 1-01/1607/26/23 acetaminophen 650 mg rectal suppository 650 mg NJ Q4H PRN pain 07/26/23 albuterol sulfate 0.63 mg/3 mL solution for nebulization 0.63 mg inhalation 4X/DAY PRN shortness of breath or wheezing 07/26/23 aluminum-mag hydroxide-simethicone 400 mg-400 mg-40 mg/5 mL oral susp (Mag-Al Plus Extra Strength) 30 ml PO Q6H PRN Gastric Burning 07/26/23 buspirone 5 mg tablet 5 mg PO BID mental health 07/26/23 furosemide 20 mg tablet 40 mg PO DAILY diuretic 07/26/23 guaifenesin 100 mg/5 mL oral liquid (Adult Tussin Chest Congestion) 200 mg PO Q4H PRN cough 07/26/23 loratadine 10 mg tablet (Allergy Relief (loratadine)) 10 mg PO DAILY allergies 07/26/23 menthol 0.44 %-zinc oxide 20.6 % topical ointment (Calmoseptine) 1 applic topical 4X/DAY 07/26/23 ondansetron HCl 4 mg tablet 4 mg PO Q8H PRN nausea and vomiting 07/26/23 sodium phosphates 19 gram-7 gram/118 mL enema (Fleet Enema) 118 ml NJ DAILY PRN constipation 07/26/23 topiramate 25 mg tablet 25 mg PO DAILY 07/26/23 trazodone 50 mg tablet 50 mg PO QHS 07/26/23 gabapentin 100 mg capsule 200 mg PO BID pain 11/23/23 melatonin 5 mg capsule mg 11/23/23 dexamethasone 6 mg tablet 6 mg PO DAILY #5 tabs 11/28/23
--- NOTE | 2023-11-28 11:33 | CASEMGMT ---
Discharge Planning Discharge orders, signed med list, and transport time [facility] via [facility]. Physicians will transport patient by cot at 1p. Nursing, SW, patient, and her significant other (Evens) updated. Payal Li DC Planning Asst.
--- NOTE | 2023-11-28 11:39 | CASEMGMT ---
Patient is ready to return to [facility]. Physicians will transport patient via cot. Plan: d/c back to [facility] under intermediate level of care. Physicians will transport patient. Sheeba GENAO
[2023-11-28 12:14] VITALS: BP 113/70; PULSE 100; RESP 20; TEMP 36.4; O2SAT 95
--- NOTE | 2023-11-28 13:07 | PCM.DC.SUM ---
Providers Date of Admission: 11/23/23 Date of Discharge: 11/28/23 Primary Care Physician: Dr. Sepideh Patterson MD Consultations 11/23/23 20:06 Consult: [employer] [facility] / Pulmonary Medicine Routine Consulting Provider: Pulmonary Medicine memo [place] Reason for Consult: Acute on chronic hypoxic and hypercapnic respiratory failure EMERGENT Consult: No MD Notified: Yes Date Notified: 11/23/23 Time Notified: 18:46 Method of Notification: Text Reason For Visit: ACUTE ON CHRONIC HYPOXIC AND RESPIRATORY FAILURE Diagnosis Discharge Diagnosis (1) Morbid obesity: Status: Acute Code(s): E66.01 - Morbid (severe) obesity due to excess calories (2) COVID-19: Status: Acute Code(s): U07.1 - COVID-19 (3) Acute on chronic respiratory failure with hypoxia and hypercapnia: Status: Chronic Code(s): J96.21 - Acute and chronic respiratory failure with hypoxia; J96.22 - Acute and chronic respiratory failure with hypercapnia Plan #Acute o chronic hypoxic respiratory failure due to COVID 19 infection and community acquired pneumonia Weaned off of Airvo and now on 2 L of oxygen via nasal cannula. on dexamethasone, remdesivir and levaquin, azithromycin and vancomycin breathing treatment with bronchodilators titrate oxygen to maintain sats >90% pulmonology on board #Hypokalemia: K is 3.3. Will replace and trend. #Hyperlipidemia: on statin #COPD: on breathing treatment with bronchodilators. Titrate oxygen as needed to maintain sats >90% #Depression: on zoloft #Super morbid obesity: BMI is 52. Complicates acute care, expected recovery and prognosis. DVT prophylaxis; patient refusing Lovenox or heparin. She says she lived in [place] for 20 years and her blood was thinned enough by her stay in [place]. When I sought to clarify what she meant by her blood being thinned enough in [place], she says just living in [place] for 20 years thinned out her blood and so she is not interested in any anticoagulants. She was counseled about the increased risk of blood clots with COVID but is adamant that her blood is thin and often so she will not take any anticoagulants. Medications at Discharge Home Medications amitriptyline 25 mg tablet 25 mg PO QODAY DEPRESSION 05/03/22 atorvastatin 20 mg tablet 20 mg PO QHS CHOLESTEROL 05/03/22 famotidine 20 mg tablet 20 mg PO QHS GERD 05/03/22 fluticasone propionate 50 mcg/actuation nasal spray,suspension 2 spray intranasal BID PRN NASAL CONGESTION 05/03/22 losartan 50 mg tablet 50 mg PO DAILY BLOOD PRESSURE 05/03/22 montelukast 10 mg tablet 10 mg PO DAILY ALLERGIES 05/03/22 omeprazole 20 mg tablet,delayed release 20 mg PO DAILY GERD 05/03/22 roflumilast 500 mcg tablet (Daliresp) 500 mcg PO DAILY ASTHMA 05/03/22 sertraline 100 mg tablet (Zoloft) 200 mg PO QHS DEPRESSION 05/03/22 dicyclomine 10 mg capsule 10 mg PO 4X/DAY IRRITABLE BOWELS #1 cap 05/05/22 albuterol sulfate 90 mcg/actuation aerosol inhaler 2 puff inhalation Q2H PRN SOB 09/08/22 cholecalciferol (vitamin D3) 50 mcg (2,000 unit) tablet 50 mcg PO DAILY SUPPLEMENT 04/16/23 loperamide 2 mg capsule (Imodium A-D) 2 mg PO Q8H PRN DIARRHEA 04/16/23 sertraline 50 mg tablet 50 mg PO DAILY DEPRESSION 04/16/23 acetaminophen 325 mg tablet 650 mg PO Q4H PRN Fever, pain 1-01/1607/26/23 acetaminophen 650 mg rectal suppository 650 mg ID Q4H PRN pain 07/26/23 albuterol sulfate 0.63 mg/3 mL solution for nebulization 0.63 mg inhalation 4X/DAY PRN shortness of breath or wheezing 07/26/23 aluminum-mag hydroxide-simethicone 400 mg-400 mg-40 mg/5 mL oral susp (Mag-Al Plus Extra Strength) 30 ml PO Q6H PRN Gastric Burning 07/26/23 buspirone 5 mg tablet 5 mg PO BID mental health 07/26/23 furosemide 20 mg tablet 40 mg PO DAILY diuretic 07/26/23 guaifenesin 100 mg/5 mL oral liquid (Adult Tussin Chest Congestion) 200 mg PO Q4H PRN cough 07/26/23 loratadine 10 mg tablet (Allergy Relief (loratadine)) 10 mg PO DAILY allergies 07/26/23 menthol 0.44 %-zinc oxide 20.6 % topical ointment (Calmoseptine) 1 applic topical 4X/DAY 07/26/23 ondansetron HCl 4 mg tablet 4 mg PO Q8H PRN nausea and vomiting 07/26/23 sodium phosphates 19 gram-7 gram/118 mL enema (Fleet Enema) 118 ml ID DAILY PRN constipation 07/26/23 topiramate 25 mg tablet 25 mg PO DAILY 07/26/23 trazodone 50 mg tablet 50 mg PO QHS 07/26/23 gabapentin 100 mg capsule 200 mg PO BID pain 11/23/23 melatonin 5 mg capsule mg 11/23/23 dexamethasone 6 mg tablet 6 mg PO DAILY #5 tabs 11/28/23 Hospital Course Operations None Procedures None Summary of Care Provided Minutes Spent on Discharge: 55 Hospital Course: Patient is a 63-year-old female with a past medical history as outlined was admitted through the ED on 11/23/2023 with a complaint of cough, fever and shortness of breath. She had a history of chronic hypoxic respiratory failure and says usually with 3 to 4 L of oxygen at the shelter. He said she had been treated with an antibiotic for pneumonia about 3 weeks prior to admission but had still not felt well. There were a lot of 52 at the facility were also sick. Due to worsening shortness of breath on admission she was placed on BiPAP. She was weaned down to 5 L of oxygen. ABG showed pCO2 which was elevated at 111.4 and pO2 was 75 on 6 L of oxygen at that time. Chest x-ray showed moderate volume loss in the right lung with pulmonary opacities in the right side with possible consolidation and effusion. CT of the chest showed no evidence of PE or arterial dissection. COVID test was positive. She was admitted and managed for acute on chronic hypoxic and hypercapnic respiratory failure due to COVID-19 pneumonia. She was started on IV Decadron as well as IV ceftriaxone and azithromycin. Pulmonology was also consulted. She also completed a course of remdesivir. She was also diuresed due to fluid overload. Patient adamantly refused to take DVT prophylaxis with anticoagulants because she said her blood had been thinned enough by her period Of living in [place]. Patient was weaned off of BiPAP onto her baseline oxygen and did well. She remained stable and was discharged home on 11/28/2023. She was discharged to a [facility] facility. She was discharged with a prescription for p.o. dexamethasone 6 mg daily for 5 days to complete a 10-day course. She is follow-up with her primary care doctor within 1 to 2 weeks. Patient seen and examined prior to discharge. She felt much better and was agreeable to being discharged. Review of systems otherwise negative. Labs and vitals reviewed. Home medication reviewed and reconciled. Physical Exam Const alert, oriented x3, no apparent distress and well nourished; Negative for average body habitus or healthy appearing Constitutional Narrative: super morbid obesity General Appearance: cooperative, comfortable, well kempt and well developed Orientation / Consciousness: awake, oriented to person, oriented to place and oriented to time HEENT normocephalic, head/scalp atraumatic, hearing grossly normal bilaterally, moist oral mucous membranes, oropharynx normal and gingiva normal Mouth: oral and palatal mucosa normal Eyes PERRL, EOMs intact bilaterally and conjunctivae normal Neck no lymphadenopathy, supple, no JVD, thyroid normal and no carotid bruits General: trachea midline Lymph Lymphatic: no lymphadenopathy noted Resp normal respiratory effort, no retractions, no use of accessory muscles and clear to auscultation bilaterally Resp Narrative: On 3 L of oxygen by nasal cannula. Cardio regular rate, regular rhythm, S1 normal heart sound, S2 normal heart sound, no murmurs, no rub, no gallops and no clicks Peripheral Pulses: pulses 2+ throughout GI normal to inspection, nondistended, normoactive bowel sounds, soft to palpation, non-tender and non-distended Extremity normal capillary refill, no clubbing, cyanosis or edema and no calf tenderness Extremity Narrative: Pedal and radial pulses are 2+ General Extremity: no tenderness to palpation of joints or extremities Skin no rashes or lesions noted, no jaundice, no petechiae and no mottling General Skin Exam: no breakdown Neuro oriented x3, CN's II-XII intact bilaterally, moves all extremities, no focal motor deficits, no sensory deficits noted and deep tendon reflexes 2+ bilaterally Sensorium / Orientation: awake and alert Speech: speech normal Motor Exam: strength 5/5 throughout and general weakness Psych thought process normal, cooperative and affect normal Appearance: appropriate Weight / BMI Weight Weight: 332 lb 14.368 oz Body Mass Index (BMI) 52.1 ABG / Lab / Microbiology Data 11/28/23 06:25 11/28/23 06:25 Laboratory: Laboratory Results - last 24 hr 11/27/23 11:57: Random Vancomycin 14.6 11/28/23 06:25: WBC 13.0 H, RBC 4.22, Hgb 10.2 L, Hct 35.6 L, MCV 84.4, MCH 24.2 L, MCHC 28.7 L, RDW Std Deviation 43.6, RDW Coeff of David 14.3, Plt Count 281, MPV 12.2 H, Immature Gran % (Auto) 3.800 H, Neut % (Auto) 58.0, Lymph % (Auto) 29.2, [place] % (Auto) 7.7, Eos % (Auto) 0.5, Baso % (Auto) 0.8, Absolute Neuts (auto) 7.6, Absolute Lymphs (auto) 3.79, Nucleated RBC % 0, Sodium 140, Potassium 3.3 L, Chloride 98, Carbon Dioxide 38.0 H, Anion Gap 4 L, BUN 23 H, Creatinine 0.64, Estim Creat Clear Calc 140.08, Est GFR (MDRD) Af Amer 122, Est GFR (MDRD) Non-Af 101, BUN/Creatinine Ratio 36.2 H, Glucose 84, Calcium 9.5 Microbiology: Microbiology 11/23/23 15:38 Blood Culture (Wb) - Right Hand Blood Culture - Preliminary No growth in 48 hours. 11/24/23 11:30 Urine, Clean Catch Legionella Antigen - Final 11/24/23 11:30 Urine, Clean Catch Streptococcus pneumoniae Antigen (M - Final 11/23/23 15:38 Mucosa - Nose SARS-CoV-2, Influenza & RSV (PCR) - Final SARS-CoV-2 (COVID 19) D/C Instructions Discharge Diet: Low fat / Low cholesterol Discharge Activity: Return to Normal Activity Call your doctor if you observe: Fever of 101 or Higher, Shortness of breath, Dizziness, Swelling in the ankles and Chest pain Meaningful Use Info Meaningful Use Meaningful Use Diagnoses (Choose all that apply): None applicable Ischemic Stroke Statin Dosing Therapy Reference: STATIN DOSE THERAPY REFERENCE: * Patients > 75 years receive moderate or high dose statin therapy. * Patients 75 years or YOUNGER should receive HIGH intensity statin dose unless contraindicated. You will be required to document reason for non-treatment if statin daily dose does not meet guidelines. HIGH DOSE STATIN THERAPY DAILY Atorvastatin > than or = to 40 mg Rosuvastatin > than or = to 20 mg Amlodipine + Atorvastatin > than or = to 2.5/40 mg Ezetimibe + Simvastatin 10/80 mg Simvastatin 80mg Discharge Plan Admission Admit Date/Time: 11/23/23 18:39 Primary Reason for Your Visit: acute hypoxic respiratory failure due to COVID Attending Provider: Kalyani Mack Primary Care Provider: Sepideh Patterson Consulting Providers: Marina Armas; Alejandro Morillo Instructions Patient Instructions: Coronavirus Disease 2019 (COVID-19): Overview, Coronavirus Disease 2019 (COVID-19): Caring for Yourself or Others Discharge Orders/Prescriptions Prescriptions: New dexamethasone 6 mg tablet 6 mg PO DAILY Qty: 5 0RF Continued losartan 50 mg Tablet 50 mg PO DAILY atorvastatin 20 mg Tablet 20 mg PO QHS sertraline [Zoloft] 100 mg Tablet 200 mg PO QHS Rx Instructions: pt [facility] medication list has pt currently on 150mg tablet and 2 25mg tablets. totaling 200mg zoloft q hs famotidine 20 mg Tablet 20 mg PO QHS amitriptyline 25 mg Tablet 25 mg PO QODAY montelukast 10 mg Tablet 10 mg PO DAILY fluticasone propionate 50 mcg/actuation [place],Suspension 2 spray INTRANASAL BID PRN (Reason: NASAL CONGESTION) omeprazole 20 mg Tablet,Delayed Release (Dr/Ec) 20 mg PO DAILY roflumilast [Daliresp] 500 mcg Tablet 500 mcg PO DAILY dicyclomine 10 mg Capsule 10 mg PO 4X/DAY Qty: 1 0RF albuterol sulfate 90 mcg/actuation Hfa Aerosol Inhaler 2 puff INHALATION Q2H PRN (Reason: SOB) cholecalciferol (vitamin D3) 50 mcg (2,000 unit) tablet 50 mcg PO DAILY sertraline 50 mg tablet 50 mg PO DAILY Rx Instructions: TAKE ONE 50MG AND ONE 100MG TABLET TOGETHER ONCE DAILY FOR A TOTAL DAILY DOSE OF 150MG. loperamide [Imodium A-D] 2 mg capsule 2 mg PO Q8H PRN (Reason: DIARRHEA ) albuterol sulfate 0.63 mg/3 mL solution for nebulization 0.63 mg inhalation 4X/DAY PRN (Reason: shortness of breath or wheezing) acetaminophen 650 mg suppository 650 mg ID Q4H PRN (Reason: pain) buspirone 5 mg tablet 5 mg PO BID Fleet Enema 19-7 gram/118 mL enema 118 ml ID DAILY PRN (Reason: constipation) Rx Instructions: USE FOR UP TO 2 EPISODES IF DULCOLAX SUPPOSITORY INEFFECTIVE. CALL PHYSICIAN IF NO BM FOR 4 DAYS guaifenesin [Adult Tussin Chest Congestion] 100 mg/5 mL liquid 200 mg PO Q4H PRN (Reason: cough) furosemide 20 mg tablet 40 mg PO DAILY loratadine [Allergy Relief (loratadine)] 10 mg tablet 10 mg PO DAILY trazodone 50 mg tablet 50 mg PO QHS ondansetron HCl 4 mg tablet 4 mg PO Q8H PRN (Reason: nausea and vomiting) topiramate 25 mg tablet 25 mg PO DAILY acetaminophen 325 mg Tablet 650 mg PO Q4H PRN (Reason: Fever, pain 1-01/16) alum-mag hydroxide-simeth [Mag-Al Plus Extra Strength] 400-400-40 mg/5 mL Suspension 30 ml PO Q6H PRN (Reason: Gastric Burning) menthol-zinc oxide [Calmoseptine] 0.44-20.6 % Ointment 1 applic topical 4X/DAY Protocol: *Topical Application Instructions APPLICATION INSTRUCTIONS: apply to affected region Rx Instructions: APPLY TO BUTTOCK 4 TIMES A DAY FOR EXCORIATION gabapentin 100 mg capsule 200 mg PO BID melatonin 5 mg capsule Discontinued prednisone 10 mg tablet 10 mg PO DAILY Referrals / Follow Up: Sepideh Patterson MD [Primary Care Provider] - Within 1 Week Disposition Disposition (needs filled in before D/C Order can be placed): Long Term Facility Charges/Coding Visit Charges Inpatient E&M: 13787 Disch Hosp >30min
== END 2023-11-28 13:31 | disposition skilled nursing facility (03) | DRG 177 ==
LOC: ED 19:05 → ICU 11-24 00:08 → PCU 11-25 14:04
PROVIDERS: Family Medicine; Internal Medicine; Admitting Provider Internal Medicine; Emergency Provider Emergency Medicine; PCP Internal Medicine; Visit Provider Student in an Organized Health Care Education/Training Program
DX: U07.1 COVID-19 (principal); J96.21 Acute and chronic respiratory failure with hypoxia; J12.82 Pneumonia due to coronavirus disease 2019; J96.22 Acute and chronic respiratory failure with hypercapnia; E66.2 Morbid (severe) obesity with alveolar hypoventilation; I50.22 Chronic systolic (congestive) heart failure; J44.0 Chronic obstructive pulmonary disease with (acute) lower respiratory infection; Z68.43 Body mass index [BMI] 50.0-59.9, adult; I11.0 Hypertensive heart disease with heart failure; F32.A Depression, unspecified; E78.5 Hyperlipidemia, unspecified; K21.9 Gastro-esophageal reflux disease without esophagitis; E87.6 Hypokalemia; E55.9 Vitamin D deficiency, unspecified; M79.7 Fibromyalgia; G89.4 Chronic pain syndrome; Z99.81 Dependence on supplemental oxygen; Z91.198 Patient's noncompliance with other medical treatment and regimen for other reason; Z79.899 Other long term (current) drug therapy; Z86.73 Personal history of transient ischemic attack (TIA), and cerebral infarction without residual deficits; Z87.891 Personal history of nicotine dependence
CPT/HCPCS: 36415; 36600; 71045; 71275; 80048; 80053; 80202; 82803; 82962; 83036; 83605; 83735; 84075; 84100; 84145; 84443; 85025; 85610; 85730; 86140; 87040; 87449; 87631; 93005; 94002; 94003; 94640; 94660; 94762; 97802; 97803; 99252; 99285; J7040; J7050; Q9967; A4216; G0463; J0248; J1940; J2405

== ENCOUNTER → 2023-11-29 06:25 | Outpatient (REF) | payer MEDICARE, MEDICAID, SELFPAY ==
[2023-11-29 08:09] LABS: Hematocrit 33.9 % (37-47); Hemoglobin 9.6 g/dL (12.0-15.0); Mean Corp Hgb Conc 28.3 g/dL (32-36); Mean Corpuscular Hgb 24.1 pg (27.0-32.0); Platelet Count 312 K/mm3 (150-450); RBC Distribution Width CV 14.4 % (11.6-14.6); RBC Distribution Width SD 44.3 fl (35.1-43.9); Red Blood Count 3.99 M/mm3 (4.2-5.4); White Blood Count 12.4 K/mm3 (4.4-11.0)
[2023-11-29 08:20] LABS: Vitamin D,25 Hydroxy 53.5 ng/mL
[2023-11-29 08:26] LABS: ALB/GLOB Ratio 0.6 RATIO (0.9-2.4); AST(SGOT) 8 U/L (15-37); Alanine Aminotransfer ALT/SGPT 14 U/L (13-56); Albumin, Serum 2.4 g/dL (3.2-5.0); Alkaline Phosphatase 70 U/L (45-117); Anion Gap 6 (5-15); BUN 23 mg/dL (7-18); BUN/Creat Ratio 31.5 RATIO (10-20); Calcium,Total 9.4 mg/dL (8.5-10.1); Chloride 99 mmol/L (98-107); Creatinine, Serum 0.73 mg/dL (0.55-1.02); EST Glomerular Filtration Rate 86 mL/min (>60); Est Glom Filt Rate - Afr Amer 104 mL/min (>60); Globulin 3.7 g/dL (2.2-4.2); Glucose 100 mg/dL (74-106); Potassium 3.6 mmol/L (3.5-5.1); Protein, Total 6.1 g/dL (6.4-8.2); Sodium Level 141 mmol/L (136-145)
== END ==
LOC: OLS.SW 06:25
PROVIDERS: PCP Internal Medicine; Visit Provider Internal Medicine
DX: D64.9 Anemia, unspecified (principal); J44.9 Chronic obstructive pulmonary disease, unspecified; I10 Essential (primary) hypertension
CPT/HCPCS: 36415; 80053; 82306; 85027

== ENCOUNTER → 2023-12-11 05:00 | Outpatient (REF) | payer MEDICARE, MEDICAID, SELFPAY ==
[2023-12-11 09:38] LABS: Absolute Lymphocyte Count 3.64 X10^3/uL (0.83-4.51); Absolute Neutrophil Count 5.9 X10^3/uL (2.0-7.7); Basophil# 0.03 X10^3/uL; Basophil% 0.3 % (0-1); Eosinophil# 0.15 X10^3/uL; Eosinophils% 1.4 % (0-5); Hematocrit 36.5 % (37-47); Lymphocyte # 3.64 X10^3/ul (0.83-4.51); Lymphocyte % 34.3 % (19-41); Mean Corp Hgb Conc 27.4 g/dL (32-36); Mean Corpuscular Hgb 24.2 pg (27.0-32.0); Mean Corpuscular Volume 88.4 fL (81-99); Mean Platelet Vol. 11.5 fl (6.2-12.0); Monocyte# 0.79 X10^3/uL; Monocyte% 7.4 % (0-10); NRBC Flagged by Analyzer 0 % (0-5); Neutrophil # 5.92 X10^3/uL (2.7-7.7); Neutrophil % 55.8 % (47-70); Platelet Count 230 K/mm3 (150-450); RBC Distribution Width CV 14.9 % (11.6-14.6); RBC Distribution Width SD 47.4 fl (35.1-43.9); Red Blood Count 4.13 M/mm3 (4.2-5.4); White Blood Count 10.6 K/mm3 (4.4-11.0)
[2023-12-11 11:02] LABS: Anion Gap 6 (5-15); BUN 27 mg/dL (7-18); BUN/Creat Ratio 57.1 RATIO (10-20); CRP 3.56 mg/L (0.0-3.0); Calcium,Total 9.6 mg/dL (8.5-10.1); Chloride 98 mmol/L (98-107); Creatinine, Serum 0.47 mg/dL (0.55-1.02); EST Glomerular Filtration Rate 142 mL/min (>60); Est Glom Filt Rate - Afr Amer 171 mL/min (>60); Glucose 78 mg/dL (74-106); Sodium Level 141 mmol/L (136-145)
== END ==
LOC: OLS.SW 05:00
PROVIDERS: PCP Internal Medicine; Visit Provider Internal Medicine
DX: J44.9 Chronic obstructive pulmonary disease, unspecified (principal)
CPT/HCPCS: 36415; 80048; 85025; 86140

== ENCOUNTER → 2024-01-16 | Outpatient (REF) | payer MEDICARE, MEDICAID, SELFPAY ==
[2024-01-16 08:44] LABS: Hematocrit 32.4 % (37-47); Hemoglobin 9.1 g/dL (12.0-15.0); Mean Corp Hgb Conc 28.1 g/dL (32-36); Platelet Count 153 K/mm3 (150-450); RBC Distribution Width CV 15.3 % (11.6-14.6); RBC Distribution Width SD 48.8 fl (35.1-43.9); Red Blood Count 3.64 M/mm3 (4.2-5.4); White Blood Count 8.1 K/mm3 (4.4-11.0)
== END ==
LOC: OLS.SW 05:00
PROVIDERS: PCP Internal Medicine; Visit Provider Internal Medicine
DX: J44.9 Chronic obstructive pulmonary disease, unspecified (principal)
CPT/HCPCS: 36415; 85027

== ENCOUNTER 2024-01-18 12:24 | Inpatient (IN) | payer MEDICARE, MEDICAID, SELFPAY ==
[2024-01-18] VITALS (29 sets, daily range): BP systolic 66–118; BP diastolic 34–95; PULSE 68–95; RESP 12–26; TEMP 36.9–37.8; O2SAT 91–100; BMI 51.2; BMI 52.0
--- NOTE | 2024-01-18 12:51 | CT_ITS ---
STUDY: CT BRAIN WITHOUT CONTRAST REASON FOR EXAM: Female, 63 years old. Mental status change RADIATION DOSAGE (If Supplied By Facility): CTDIvol = ( 44.99 ) mGy, DLP = ( 829.85 ) mGycm TECHNIQUE: Transaxial CT imaging of the brain was performed without administration of intravenous contrast material. Individualized dose optimization techniques were used for this CT. COMPARISON: Comparison is made with prior study dated April 16, 2023. FINDINGS: Normal soft tissue structures. There is hyperostosis frontalis internus. Normal size ventricles and extra-axial spaces for the patient''s age. Normal white matter tracts of the cerebral hemispheres. Normal basal ganglia and thalami. Normal brainstem. Normal cerebellum. There is no intracranial hemorrhage. There are no findings of an acute ischemic infarction. 1.2 cm polyp or retention cyst in the inferior medial wall of the right maxillary sinus. CT/Brain/Head without Contrast IMPRESSION: Normal unenhanced CT scan of the brain. 1.2 cm polyp or retention cyst in the inferior medial wall of the right maxillary sinus. Electronically Signed: David Conner MD at 14:59 EDT ,
--- NOTE | 2024-01-18 12:53 | EDS_ITS ---
HPI History of Present Illness Chief Complaint: Alt LOC Detail of Chief Complaint: Altered level of consciousness and concern for sepsis Informant: patient, EMS and SNF Narrative Narrative: Patient presents to the emergency department via EMS from skilled nursing with concern for mental status change today and low oxygen level as well as low blood pressures. Patient has history of COPD and normally wears O2 and occasionally wears BiPAP especially at night and sometimes during the day. Patient currently being treated for upper respiratory infection on doxycycline. She denies chest pain or shortness of breath. Patient denies abdominal pain. She is somewhat of a poor historian. [facility] Medical History (Updated 01/18/24 @ 15:[address] Sarah Bonilla, DO) History of Clostridioides difficile infection Morbid obesity Morbid obesity History of anemia History of hypertension History of morbid obesity History of obstructive sleep apnea History of COPD Anxiety Anemia Personal history of transient ischemic attack (TIA), and cerebral infarction without residual deficits Fibromyalgia Chronic anemia Chronic pain Vitamin D deficiency Seasonal allergies Depression HTN (hypertension) Hyperlipidemia Peptic ulcer disease GERD (gastroesophageal reflux disease) MARISOL (obstructive sleep apnea) Obesity hypoventilation syndrome Chronic respiratory failure with hypoxia HFrEF (heart failure with reduced ejection fraction) Morbid obesity UTI (urinary tract infection) TIA (transient ischemic attack) COPD (chronic obstructive pulmonary disease) Home Medications ?Medication ?Instructions ?Recorded ?Last Taken ?Type amitriptyline 25 mg tablet 25 mg PO QODAY DEPRESSION 05/03/22 04/15/23 History atorvastatin 20 mg tablet 20 mg PO QHS CHOLESTEROL 05/03/22 04/15/23 History famotidine 20 mg tablet 20 mg PO QHS GERD 05/03/22 04/15/23 History fluticasone propionate 50 2 spray intranasal BID PRN NASAL 05/03/22 05/28/22 History mcg/actuation nasal CONGESTION spray,suspension losartan 50 mg tablet 50 mg PO DAILY BLOOD PRESSURE 05/03/22 04/16/23 History montelukast 10 mg tablet 10 mg PO DAILY ALLERGIES 05/03/22 04/16/23 History omeprazole 20 mg tablet,delayed 20 mg PO DAILY GERD 05/03/22 04/16/23 History release roflumilast 500 mcg tablet 500 mcg PO DAILY ASTHMA 05/03/22 04/16/23 History (Daliresp) sertraline 100 mg tablet (Zoloft) 200 mg PO QHS DEPRESSION 05/03/22 04/16/23 History dicyclomine 10 mg capsule 10 mg PO 4X/DAY IRRITABLE BOWELS 05/05/22 04/16/23 Rx #1 cap albuterol sulfate 90 mcg/actuation 2 puff inhalation Q2H PRN SOB 09/08/22 04/12/23 History aerosol inhaler cholecalciferol (vitamin D3) 50 50 mcg PO DAILY SUPPLEMENT 04/16/23 04/16/23 Hi story mcg (2,000 unit) tablet loperamide 2 mg capsule (Imodium 2 mg PO Q8H PRN DIARRHEA 04/16/23 04/09/23 History A-D) sertraline 50 mg tablet 50 mg PO DAILY DEPRESSION 04/16/23 04/16/23 History acetaminophen 325 mg tablet 650 mg PO Q4H PRN Fever, pain 07/26/23 Unknown History -01/16 acetaminophen 650 mg rectal 650 mg CO Q4H PRN pain 07/26/23 Unknown History suppository albuterol sulfate 0.63 mg/3 mL 0.63 mg inhalation 4X/DAY PRN 07/26/23 Unknown History solution for nebulization shortness of breath or wheezing aluminum-mag hydroxide-simethicone 30 ml PO Q6H PRN Gastric Burning 07/26/23 Unknown History 400 mg-400 mg-40 mg/5 mL oral susp (Mag-Al Plus Extra Strength) buspirone 5 mg tablet 5 mg PO BID mental health 07/26/23 Unknown History furosemide 20 mg tablet 40 mg PO DAILY diuretic 07/26/23 Unknown History guaifenesin 100 mg/5 mL oral 200 mg PO Q4H PRN cough 07/26/23 Unknown History liquid (Adult Tussin Chest Congestion) loratadine 10 mg tablet (Allergy 10 mg PO DAILY allergies 07/26/23 Unknown History Relief (loratadine)) menthol 0.44 %-zinc oxide 20.6 % 1 applic topical 4X/DAY 07/26/23 Unknown History topical ointment (Calmoseptine) ondansetron HCl 4 mg tablet 4 mg PO Q8H PRN nausea and vomiting 07/26/23 Unknown History sodium phosphates 19 gram-7 118 ml CO DAILY PRN constipation 07/26/23 Unknown History gram/118 mL enema (Fleet Enema) topiramate 25 mg tablet 25 mg PO DAILY 07/26/23 Unknown History trazodone 50 mg tablet 50 mg PO QHS 07/26/23 Unknown History gabapentin 100 mg capsule 200 mg PO BID pain 11/23/23 Unknown History melatonin 5 mg capsule mg 11/23/23 Unknown History dexamethasone 6 mg tablet 6 mg PO DAILY #5 tabs 11/28/23 Unknown Rx Allergy/AdvReac Type Severity Reaction Status Date / Time aspirin Allergy Other Verified 01/18/24 12:26 black pepper (pepper) Allergy Other Verified 01/18/24 12:26 coconut Allergy Other Verified 01/18/24 12:26 codeine Allergy Other Verified 01/18/24 12:26 ibuprofen Allergy Other Verified 01/18/24 12:26 Influenza Virus Vaccines Allergy Other Verified 01/18/24 12:26 Penicillins Allergy Anaphylaxis Verified 01/18/24 12:26 rice Allergy Other Verified 01/18/24 12:26 tetanus and diphtheria Allergy Other Verified 01/18/24 12:26 toxoids Tetanus Vaccines and Toxoid Allergy Other Verified 01/18/24 12:26 Family History Mother CAD (coronary artery disease) COPD (chronic obstructive pulmonary disease) Hypertension Heart disease Father CAD (coronary artery disease) COPD (chronic obstructive pulmonary disease) Hypertension Heart disease Surgical History History of ankle surgery Social History housing: skilled nursing Smoking Status: Former smoker alcohol intake: never substance use type: does not use ROS ROS ED Review of Systems ROS Unobtainable: due to mental status EXAM Physical Exam Const Vital Signs: 01/18/24 12:26 01/18/24 12:33 01/18/24 12:33 Temperature 98.4 F 98.4 F Temperature Source Oral Oral Pulse Rate 90 89 89 Respiratory Rate 17 16 18 Respiratory Pattern Blood Pressure 86/42 L 66/34 L 66/34 L Blood Pressure Mean 56 44 44 Pulse Ox 96 91 91 Oxygen Delivery Method Nasal Cannula Nasal Cannula Nasal Cannula Oxygen Flow Rate (L/min) 4 4 Fraction of Inspired Oxygen (FIO2) 01/18/24 13:35 01/18/24 13:43 01/18/24 14:00 Temperature Temperature Source Pulse Rate 85 83 80 Respiratory Rate 17 26 H 16 Respiratory Pattern Tachypnea Blood Pressure 76/60 L 96/76 Blood Pressure Mean 65 82 Pulse Ox 94 100 96 Oxygen Delivery Method Nasal Cannula Room Air Oxygen Flow Rate (L/min) 4 Fraction of Inspired Oxygen (FIO2) 65 Positive well nourished and well developed General Appearance ED: well developed and NAD HEENT Reports TM's clear and moist mucous membranes normocephalic and atraumatic; Negative for trauma or tenderness Tympanic Membrane ED: Yes TM's clear Eyes PERRL and EOMs intact bilaterally General Eye ED: Negative for pale conjunctiva or scleral icterus Neck no lymphadenopathy, supple and no JVD General: Negative for tenderness Chest Wall inspection of chest normal and palpation of chest normal Chest: Negative for tenderness Resp normal respiratory effort and clear to auscultation bilaterally Effort and Inspection: Negative for respiratory distress or pain with movement Auscultation: Negative for rhonchi, wheezes or diminished lung sounds Cardio regular rate, regular rhythm, S1 normal heart sound, S2 normal heart sound and no murmurs Peripheral Pulses: pulses 2+ throughout GI normal to inspection, nondistended, normoactive bowel sounds, soft to palpation, non-tender, non-distended and no masses GI Narrative: Morbidly obese Back/Spine no CVA tenderness and no thoracic nor lumbar tenderness Extremity normal to inspection General Extremety ED: Negative for edema General Extremity: Negative for edema Neuro oriented x3, CN's II-XII intact bilaterally, no sensory deficits noted and gait normal Neuro Narrative: Patient awake and following commands. Poor historian and speech somewhat mumbled therefore difficult to obtain good history. Sensorium / Orientation: awake, alert, oriented to person, oriented to place and oriented to time Motor Exam: strength 5/5 throughout and strength abnormal Psych mental status grossly normal Skin no rashes or lesions noted and no wounds MDM MDM MDM Narrative Medical decision making narrative: Patient presents via EMS from skilled nursing. Patient apparently has had mental status change and concern for sepsis. IV line established. She was ordered a liter normal same fluid bolus followed by second liter. Her blood pressures are labile with lows in the 60s systolic and after fluids systolic did improve into the low 100s. She would then drop back down into the 70s systolic. She is a large body habitus and nursing staff had blood pressure cuffs on her forearms which is not ideal. With we did a manual and it was in the 80s systolic. CBC with differential white count of 8.4 with hemoglobin 9.5 and platelet count of 198. Chemistries unremarkable. Lactate normal at 0.3. LFTs were normal. Urinalysis was normal. Chest x-ray showed chronic interstitial changes on my interpretation. I did do a blood gas and she was noted to be acidotic with a pH of 7.182. CO2 was 112. O2 sat was 88% on 4 L nasal cannula. Patient was started on BiPAP. Case discussed with hospitalist who will evaluate patient for admission to ICU. I was asked to start patient on low-dose Levophed 5 mcg IV. Patient will be admitted to the ICU and guarded condition Lab Data Attestation: I reviewed the patient's lab results. Labs: Laboratory Results - last 24 hr 01/18/24 01/18/24 12:53 13:35 WBC 8.4 RBC 3.77 L Hgb 9.5 L Hct 35.1 L MCV 93.1 MCH 25.2 L MCHC 27.1 L RDW Std Deviation 52.1 H RDW Coeff of David 15.4 H Plt Count 198 MPV 12.0 Immature Gran % (Auto) 1.100 H Neut % (Auto) 66.5 Lymph % (Auto) 22.2 Elk % (Auto) 8.8 Eos % (Auto) 1.0 Baso % (Auto) 0.4 Absolute Neuts (auto) 5.6 Absolute Lymphs (auto) 1.87 Nucleated RBC % 0 Sodium 140 Potassium 4.5 Chloride 94 L Carbon Dioxide 43.0 H Anion Gap 3 L BUN 28 H Creatinine 1.28 H Estim Creat Clear Calc 69.35 Est GFR (MDRD) Af Amer 54 L Est GFR (MDRD) Non-Af 45 L BUN/Creatinine Ratio 21.9 H Glucose 109 H Lactic Acid 0.3 L Calcium 10.4 H Total Bilirubin 0.30 AST 14 L ALT 9 L Alkaline Phosphatase 76 Troponin I High Sens 18 Total Protein 6.5 Albumin 2.7 L Globulin 3.8 Albumin/Globulin Ratio 0.7 L Urine Color Yellow Urine Clarity Sl. Cloudy Urine pH 6.0 Ur Specific [place] 1.025 Urine Protein 30 H Urine Glucose (UA) Normal Urine Ketones Negative Urine Occult Blood Negative Urine Nitrite Negative Urine Bilirubin Negative Urine Urobilinogen Normal Ur Leukocyte Esterase Negative Urine RBC 0 SEEN Urine WBC 0 SEEN Ur Squamous Epith Cells 0 SEEN Urine Bacteria 0 SEEN Urine Mucus 0 SEEN ABG Data ABG results: ABG 01/18/24 01/18/24 13:24 13:31 Specimen Type ART ART Sample Site L Radial Not entered pH 7.18 L* 7.19 L* Bicarbonate Actual 42.1 H 47.7 H Total CO2 46 > 50 Base Excess 14 H 19 H O2 Saturation 88 L 86 L O2 % 4.0 ABG pCO2 112.2 H* 126.3 H* ABG pO2 74 L 70 L José Miguel Test Positive O2 Delivery Device Cannula Not entered Vent Mode Not entered Not entered Crit Call To/Read Back Yes Yes Blood Gas Notified Whom butler Blood Gas Notified Time 13:26:02 EKG Initial EKG: Attestation: I personally reviewed and interpreted this EKG as follows: Comments: Sinus rhythm with rate of 89 bpm with right bundle branch block and nonspecific ST changes Critical Care Time Critical care time (excluding procedures): 30-74 minutes, Including time spent:, Discussing w/Patient &/or Family/Logging Tractor Operator, Discussing w/Consultants, Arranging Admission or Transfer and Performing Direct Patient Care at Bedside Discharge Plan Triage Chief Complaint: Alt LOC ED Provider: Sarah Bonilla Dx/Rx/DC Orders Clinical Impression: Respiratory failure, Hypotension, Altered mental status, History of COPD Prescriptions: No Action losartan 50 mg Tablet 50 mg PO DAILY atorvastatin 20 mg Tablet 20 mg PO QHS sertraline [Zoloft] 100 mg Tablet 200 mg PO QHS Rx Instructions: pt ecf medication list has pt currently on 150mg tablet and 2 25mg tablets. totaling 200mg zoloft q hs famotidine 20 mg Tablet 20 mg PO QHS amitriptyline 25 mg Tablet 25 mg PO QODAY montelukast 10 mg Tablet 10 mg PO DAILY fluticasone propionate 50 mcg/actuation [place],Suspension 2 spray INTRANASAL BID PRN (Reason: NASAL CONGESTION) omeprazole 20 mg Tablet,Delayed Release (Dr/Ec) 20 mg PO DAILY roflumilast [Daliresp] 500 mcg Tablet 500 mcg PO DAILY dicyclomine 10 mg Capsule 10 mg PO 4X/DAY Qty: 1 0RF albuterol sulfate 90 mcg/actuation Hfa Aerosol Inhaler 2 puff INHALATION Q2H PRN (Reason: SOB) cholecalciferol (vitamin D3) 50 mcg (2,000 unit) tablet 50 mcg PO DAILY sertraline 50 mg tablet 50 mg PO DAILY Rx Instructions: TAKE ONE 50MG AND ONE 100MG TABLET TOGETHER ONCE DAILY FOR A TOTAL DAILY DOSE OF 150MG. loperamide [Imodium A-D] 2 mg capsule 2 mg PO Q8H PRN (Reason: DIARRHEA ) albuterol sulfate 0.63 mg/3 mL solution for nebulization 0.63 mg inhalation 4X/DAY PRN (Reason: shortness of breath or wheezing) acetaminophen 650 mg suppository 650 mg CO Q4H PRN (Reason: pain) buspirone 5 mg tablet 5 mg PO BID Fleet Enema 19-7 gram/118 mL enema 118 ml CO DAILY PRN (Reason: constipation) Rx Instructions: USE FOR UP TO 2 EPISODES IF DULCOLAX SUPPOSITORY INEFFECTIVE. CALL PHYSICIAN IF NO BM FOR 4 DAYS guaifenesin [Adult Tussin Chest Congestion] 100 mg/5 mL liquid 200 mg PO Q4H PRN (Reason: cough) furosemide 20 mg tablet 40 mg PO DAILY loratadine [Allergy Relief (loratadine)] 10 mg tablet 10 mg PO DAILY trazodone 50 mg tablet 50 mg PO QHS ondansetron HCl 4 mg tablet 4 mg PO Q8H PRN (Reason: nausea and vomiting) topiramate 25 mg tablet 25 mg PO DAILY acetaminophen 325 mg Tablet 650 mg PO Q4H PRN (Reason: Fever, pain 1-01/16) alum-mag hydroxide-simeth [Mag-Al Plus Extra Strength] 400-400-40 mg/5 mL Suspension 30 ml PO Q6H PRN (Reason: Gastric Burning) menthol-zinc oxide [Calmoseptine] 0.44-20.6 % Ointment 1 applic topical 4X/DAY Protocol: *Topical Application Instructions APPLICATION INSTRUCTIONS: apply to affected region Rx Instructions: APPLY TO BUTTOCK 4 TIMES A DAY FOR EXCORIATION gabapentin 100 mg capsule 200 mg PO BID melatonin 5 mg capsule dexamethasone 6 mg tablet 6 mg PO DAILY Qty: 5 0RF Primary Care Provider: Sepideh Patterson Referrals: Sepideh Patterson MD [Primary Care Provider] - Print Language: French Disposition Disposition: Acute Care [facility]
[2024-01-18 13:01] LABS: Absolute Lymphocyte Count 1.87 X10^3/uL (0.83-4.51); Absolute Neutrophil Count 5.6 X10^3/uL (2.0-7.7); Basophil# 0.03 X10^3/uL; Basophil% 0.4 % (0-1); Eosinophil# 0.08 X10^3/uL; Hematocrit 35.1 % (37-47); Hemoglobin 9.5 g/dL (12.0-15.0); Lymphocyte # 1.87 X10^3/ul (0.83-4.51); Lymphocyte % 22.2 % (19-41); Mean Corp Hgb Conc 27.1 g/dL (32-36); Mean Corpuscular Hgb 25.2 pg (27.0-32.0); Mean Corpuscular Volume 93.1 fL (81-99); Monocyte# 0.74 X10^3/uL; Monocyte% 8.8 % (0-10); NRBC Flagged by Analyzer 0 % (0-5); Neutrophil # 5.61 X10^3/uL (2.7-7.7); Neutrophil % 66.5 % (47-70); Platelet Count 198 K/mm3 (150-450); RBC Distribution Width CV 15.4 % (11.6-14.6); RBC Distribution Width SD 52.1 fl (35.1-43.9); Red Blood Count 3.77 M/mm3 (4.2-5.4); White Blood Count 8.4 K/mm3 (4.4-11.0)
[2024-01-18] MEDS: 0.9% Normal Saline (1000mL) 1,000 ML 1000 ML IV (13:10)
[2024-01-18 13:29] LABS: Allen Test Positive; Base Excess 14 mmol/L (-2 to +2); Bicarbonate 42.1 mmol/L (22-26); Blood Gas Specimen Type ART; Mode Not entered; O2 Delivery Device Cannula; PO2 74 mmHG (75-100); SITE L Radial; SO2 88 % (95-99); Total Carbon Dioxide 46 mmol/L; pCO2 112.2 mmHg (35-45); pH 7.18 (7.35-7.45)
[2024-01-18 13:39] LABS: Lactic Acid 0.3 mmol/L (0.4-1.9)
[2024-01-18 13:45] LABS: Bacteria 0 SEEN /hpf (None Seen); Mucous, Urine 0 SEEN /hpf (<or=2+); Red Blood Cells-Urine 0 SEEN /hpf (0-5); Squamous Epithelial Cells - UA 0 SEEN /hpf (5-10); White Blood Cells 0 SEEN /hpf (0-5)
[2024-01-18 13:47] LABS: ALB/GLOB Ratio 0.7 RATIO (0.9-2.4); AST(SGOT) 14 U/L (15-37); Alanine Aminotransfer ALT/SGPT 9 U/L (13-56); Albumin, Serum 2.7 g/dL (3.2-5.0); Alkaline Phosphatase 76 U/L (45-117); Anion Gap 3 (5-15); BUN 28 mg/dL (7-18); BUN/Creat Ratio 21.9 RATIO (10-20); Calcium,Total 10.4 mg/dL (8.5-10.1); Chloride 94 mmol/L (98-107); Creatinine, Serum 1.28 mg/dL (0.55-1.02); EST Glomerular Filtration Rate 45 mL/min (>60); Est Glom Filt Rate - Afr Amer 54 mL/min (>60); Estimated Creatinine Clearance 69.35 ml/min; Globulin 3.8 g/dL (2.2-4.2); Glucose 109 mg/dL (74-106); Potassium 4.5 mmol/L (3.5-5.1); Protein, Total 6.5 g/dL (6.4-8.2); Sodium Level 140 mmol/L (136-145); Troponin-I HS 18 pg/mL (3.0-54.0)
--- NOTE | 2024-01-18 13:55 | RAD_ITS ---
STUDY: X-RAY CHEST REASON FOR EXAM: Female, 63 years old. Dyspnea TECHNIQUE: Single AP portable view of the chest. COMPARISON: Comparison is made with prior study dated November 23, 2023. FINDINGS: EKG electrodes are seen. The patient is rotated. Stable increased markings at the right lung base. Mild degree of vascular congestion. There is no demonstrated pleural abnormality. There is mild cardiac enlargement. Normal mediastinum and lito. Normal visualized pulmonary arteries. Normal visualized aortic arch and descending thoracic aorta. Normal visualized thoracic spine. Normal visualized ribs, clavicles, and shoulders. There is no demonstrated abnormality of the visualized soft tissue structures of the upper abdomen. RAD/Chest 1 View (Portable) IMPRESSION: Vascular congestion. Persistent soft tissue density at the right lung base. Electronically Signed: David Conner MD at 14:57 EDT ,
[2024-01-18 13:58] LABS: Color, Urine Yellow (Yellow); Glucose, Dipstick Normal (Normal); Ketone-Dipstick Negative (Negative); Leukocyte Esterase-Dipstick Negative /ul (Negative); Nitrite-Dipstick Negative (Negative); Occult Blood-Urine Negative /ul (Negative); Protein-Dipstick 30 mg/dl (Negative); Specific Gravity, Urine 1.025 (1.002-1.030); Urine Bilirubin Dipstick Negative (Negative); Urine Clarity Sl. Cloudy (Clear); Urine Urobilinogen Normal (Normal)
[2024-01-18] MEDS: 0.9% Normal Saline (1000mL) 1,000 ML 999 ML IV ×2 (14:15→14:45)
--- NOTE | 2024-01-18 15:21 | HP.PCM.HOS_ITS ---
HPI - General General Date of Admission: 01/18/24 Date of Service: 01/18/24 Chief Complaint: AMS HPI Narrative HE TRAYLOR, is a 63-year-old female history of GERD, COPD, MARISOL, TIA, CHF who presented to [facility] ED 01/18/2024 with altered level of consciousness and low O2. She is currently being treated for URI with doxycycline. In the ED patient found to have a CO2 of 126 with pO2 of 70 and pH of 7.19 on ABG. patient also with ZONIA with creatinine of 1.28 with a baseline around 0.6. She was given 3 L of IV fluid and started on BiPAP. Chest x-ray appears congested but very difficult to interpret given habitus and baseline abnormalities on chest x-ray. She was given Levaquin for possible respiratory infection and a DuoNeb and hospitalist contacted for admission. Patient evaluated bedside, wakes up but has difficulty communicating through the BiPAP and given her current respiratory status unable to take this off or further interview. All that is known at present is that [facility] the [facility] she became progressively more confused and they thought she may also be hypotensive. On evaluation in ED patient's blood pressures were significantly variable but manual 80/50 even with patient once completing the 3 L of fluid so peripheral Levophed initiated. [facility] Medical History (Updated 01/18/24 @ 15:[address] Sarah Bonilla, ) Anemia Anxiety Chronic anemia Chronic pain Chronic respiratory failure with hypoxia COPD (chronic obstructive pulmonary disease) Depression Fibromyalgia GERD (gastroesophageal reflux disease) HFrEF (heart failure with reduced ejection fraction) History of anemia History of Clostridioides difficile infection History of COPD History of hypertension History of morbid obesity History of obstructive sleep apnea HTN (hypertension) Hyperlipidemia Morbid obesity Morbid obesity Morbid obesity Obesity hypoventilation syndrome MARISOL (obstructive sleep apnea) Peptic ulcer disease Personal history of transient ischemic attack (TIA), and cerebral infarction without residual deficits Seasonal allergies TIA (transient ischemic attack) UTI (urinary tract infection) Vitamin D deficiency Home Medications ?Medication ?Instructions ?Recorded ?Last Taken ?Type amitriptyline 25 mg tablet 25 mg PO QODAY DEPRESSION 05/03/22 04/15/23 History atorvastatin 20 mg tablet 20 mg PO QHS CHOLESTEROL 05/03/22 04/15/23 History famotidine 20 mg tablet 20 mg PO QHS GERD 05/03/22 04/15/23 History fluticasone propionate 50 2 spray intranasal BID PRN NASAL 05/03/22 05/28/22 History mcg/actuation nasal CONGESTION spray,suspension losartan 50 mg tablet 50 mg PO DAILY BLOOD PRESSURE 05/03/22 04/16/23 History montelukast 10 mg tablet 10 mg PO DAILY ALLERGIES 05/03/22 04/16/23 History omeprazole 20 mg tablet,delayed 20 mg PO DAILY GERD 05/03/22 04/16/23 History release roflumilast 500 mcg tablet 500 mcg PO DAILY ASTHMA 05/03/22 04/16/23 History (Daliresp) sertraline 100 mg tablet (Zoloft) 200 mg PO QHS DEPRESSION 05/03/22 04/16/23 History dicyclomine 10 mg capsule 10 mg PO 4X/DAY IRRITABLE BOWELS 05/05/22 04/16/23 Rx #1 cap albuterol sulfate 90 mcg/actuation 2 puff inhalation Q2H PRN SOB 09/08/22 04/12/23 History aerosol inhaler cholecalciferol (vitamin D3) 50 50 mcg PO DAILY SUPPLEMENT 04/16/23 04/16/23 History mcg (2,000 unit) tablet loperamide 2 mg capsule (Imodium 2 mg PO Q8H PRN DIARRHEA 04/16/23 04/09/23 History A-D) sertraline 50 mg tablet 50 mg PO DAILY DEPRESSION 04/16/23 04/16/23 History acetaminophen 325 mg tablet 650 mg PO Q4H PRN Fever, pain 07/26/23 Unknown History -01/16 acetaminophen 650 mg rectal 650 mg IL Q4H PRN pain 07/26/23 Unknown History suppository albuterol sulfate 0.63 mg/3 mL 0.63 mg inhalation 4X/DAY PRN 07/26/23 Unknown History solution for nebulization shortness of breath or wheezing aluminum-mag hydroxide-simethicone 30 ml PO Q6H PRN Gastric Burning 07/26/23 Unknown History 400 mg-400 mg-40 mg/5 mL oral susp (Mag-Al Plus Extra Strength) buspirone 5 mg tablet 5 mg PO BID mental health 07/26/23 Unknown History furosemide 20 mg tablet 40 mg PO DAILY diuretic 07/26/23 Unknown History guaifenesin 100 mg/5 mL oral 200 mg PO Q4H PRN cough 07/26/23 Unknown History liquid (Adult Tussin Chest Congestion) loratadine 10 mg tablet (Allergy 10 mg PO DAILY allergies 07/26/23 Unknown History Relief (loratadine)) menthol 0.44 %-zinc oxide 20.6 % 1 applic topical 4X/DAY 07/26/23 Unknown History topical ointment (Calmoseptine) ondansetron HCl 4 mg tablet 4 mg PO Q8H PRN nausea and vomiting 07/26/23 Unknown History sodium phosphates 19 gram-7 118 ml IL DAILY PRN constipation 07/26/23 Unknown History gram/118 mL enema (Fleet Enema) topiramate 25 mg tablet 25 mg PO DAILY 07/26/23 Unknown History trazodone 50 mg tablet 50 mg PO QHS 07/26/23 Unknown History gabapentin 100 mg capsule 200 mg PO BID pain 11/23/23 Unknown History melatonin 5 mg capsule mg 11/23/23 Unknown History dexamethasone 6 mg tablet 6 mg PO DAILY #5 tabs 11/28/23 Unknown Rx Allergy/AdvReac Type Severity Reaction Status Date / Time aspirin Allergy Other Verified 01/18/24 12:26 black pepper (pepper) Allergy Other Verified 01/18/24 12:26 coconut Allergy Other Verified 01/18/24 12:26 codeine Allergy Other Verified 01/18/24 12:26 ibuprofen Allergy Other Verified 01/18/24 12:26 Influenza Virus Vaccines Allergy Other Verified 01/18/24 12:26 Penicillins Allergy Anaphylaxis Verified 01/18/24 12:26 rice Allergy Other Verified 01/18/24 12:26 tetanus and diphtheria Allergy Other Verified 01/18/24 12:26 toxoids Tetanus Vaccines and Toxoid Allergy Other Verified 01/18/24 12:26 Family History Mother CAD (coronary artery disease) COPD (chronic obstructive pulmonary disease) Hypertension Heart disease Father CAD (coronary artery disease) COPD (chronic obstructive pulmonary disease) Hypertension Heart disease Surgical History History of ankle surgery Social History housing: [facility] Smoking Status: Former smoker alcohol intake: never substance use type: does not use ROS ROS Narrative Unable to obtain secondary to patient's difficulty with communicated through BiPAP and mental status Vital Signs Vital Signs Vital Signs: 01/18/24 12:26 01/18/24 12:33 01/18/24 12:33 Temperature 98.4 F 98.4 F Temperature Source Oral Oral Pulse Rate 90 89 89 Respiratory Rate 17 16 18 Respiratory Pattern Blood Pressure 86/42 L 66/34 L 66/34 L Blood Pressure Mean 56 44 44 Pulse Ox 96 91 91 Oxygen Delivery Method Nasal Cannula Nasal Cannula Nasal Cannula Oxygen Flow Rate (L/min) 4 4 Fraction of Inspired Oxygen (FIO2) 01/18/24 13:35 01/18/24 13:43 01/18/24 14:00 Temperature Temperature Source Pulse Rate 85 83 80 Respiratory Rate 17 26 H 16 Respiratory Pattern Tachypnea Blood Pressure 76/60 L 96/76 Blood Pressure Mean 65 82 Pulse Ox 94 100 96 Oxygen Delivery Method Nasal Cannula Room Air Oxygen Flow Rate (L/min) 4 Fraction of Inspired Oxygen (FIO2) 65 01/18/24 15:00 Temperature Temperature Source Pulse Rate 83 Respiratory Rate 19 H Respiratory Pattern Blood Pressure 80/52 L Blood Pressure Mean 61 Pulse Ox 95 Oxygen Delivery Method Bi-pap Oxygen Flow Rate (L/min) Fraction of Inspired Oxygen (FIO2) 50 Weight Weight: 148.6 kg Body Mass Index (BMI) 51.2 Physical Exam Narrative General: Patient easily wakes up and attempts to answer questions but has difficulty doing so through BiPAP HEENT: Atraumatic Eyes: Anicteric, normal conjunctiva, extraocular movements grossly intact Neck: Supple Respiratory: Diminished bilaterally, BiPAP in place Cardiovascular: Regular rate and rhythm GI: Soft, nontender, nondistended Extremities: No pitting edema Musculoskeletal: Moves extremities in bed Neuro: No overt focal neurological deficits but patient not able to participate in neuroexam at this time Skin: No rashes appreciated Psych: Attempts to be cooperative Results Lab / Micro Data 01/18/24 12:53 01/18/24 12:53 Labs: Laboratory Results - last 24 hr 01/18/24 12:53: WBC 8.4, RBC 3.77 L, Hgb 9.5 L, Hct 35.1 L, MCV 93.1, MCH 25.2 L , MCHC 27.1 L, RDW Std Deviation 52.1 H, RDW Coeff of David 15.4 H, Plt Count 198, MPV 12.0, Immature Gran % (Auto) 1.100 H, Neut % (Auto) 66.5, Lymph % (Auto) 22.2, Larue % (Auto) 8.8, Eos % (Auto) 1.0, Baso % (Auto) 0.4, Absolute Neuts (auto) 5.6, Absolute Lymphs (auto) 1.87, Nucleated RBC % 0, Sodium 140, Potassium 4.5, Chloride 94 L, Carbon Dioxide 43.0 H, Anion Gap 3 L, BUN 28 H, C reatinine 1.28 H, Estim Creat Clear Calc 69.35, Est GFR (MDRD) Af Amer 54 L, Est GFR (MDRD) Non-Af 45 L, BUN/Creatinine Ratio 21.9 H, Glucose 109 H, Lactic Acid 0.3 L, Calcium 10.4 H, Total Bilirubin 0.30, AST 14 L, ALT 9 L, Alkaline Phosphatase 76, Troponin I High Sens 18, Total Protein 6.5, Albumin 2.7 L, Globulin 3.8, Albumin/Globulin Ratio 0.7 L 01/18/24 13:35: Urine Color Yellow, Urine Clarity Sl. Cloudy, Urine pH 6.0, Ur Specific [place] 1.025, Urine Protein 30 H, Urine Glucose (UA) Normal, Urine Ketones Negative, Urine Occult Blood Negative, Urine Nitrite Negative, Urine Bilirubin Negative, Urine Urobilinogen Normal, Ur Leukocyte Esterase Negative, Urine RBC 0 SEEN, Urine WBC 0 SEEN, Ur Squamous Epith Cells 0 SEEN, Urine Bacteria 0 SEEN, Urine Mucus 0 SEEN Micro: Microbiology 01/18/24 13:03 Mucosa - Nose SARS-CoV-2, Influenza & RSV (PCR) - Final ABG Data ABG results: ABG 01/18/24 01/18/24 13:24 13:31 Specimen Type ART ART Sample Site L Radial Not entered pH 7.18 L* 7.19 L* Bicarbonate Actual 42.1 H 47.7 H Total CO2 46 > 50 Base Excess 14 H 19 H O2 Saturation 88 L 86 L O2 % 4.0 ABG pCO2 112.2 H* 126.3 H* ABG pO2 74 L 70 L José Miguel Test Positive O2 Delivery Device Cannula Not entered Vent Mode Not entered Not entered Crit Call To/Read Back Yes Yes Blood Gas Notified Whom [facility] Blood Gas Notified Time 13:26:02 Imaging Radiology Impression Brain CT 01/18/24 12:51 IMPRESSION: Normal unenhanced CT scan of the brain. 1.2 cm polyp or retention cyst in the inferior medial wall of the right maxillary sinus. Electronically Signed: David Conner MD at 14:59 EDT , Chest X-Ray 01/18/24 13:55 IMPRESSION: Vascular congestion. Persistent soft tissue density at the right lung base. Electronically Signed: David Conner MD at 14:57 EDT , Assessment & Plan Assessment/Plan (1) Acute respiratory failure with hypoxia and hypercapnia: PLAN: Plan # acute hypoxic hypercapnic respiratory failure on chronic hypoxic respiratory failure on O2 at baseline -In the ED patient found to have a CO2 of 126 with pO2 of 70 and pH of 7.19 on ABG - has known history of COPD and MARISOL -Unclear etiology, was being treated with Doxy for URI however -Will continue nebs -Levaquin -Also check respiratory panel, COVID-negative -Given poor airflow and is unclear if she has component of COPD exacerbation as patient unable to answer questions well so started on IV Methylpred -Continue BiPAP, patient wakes up and follows commands, does not need emergently intubated. Suspect she does have a component of chronic hypercapnia but is more so than usual given her acidosis # metabolic encephalopathy suspect secondary to hypercapnia and hypoxia - correct underlying etiology -Unclear if there could be a infectious component to this as she has been treated for URI -Continue Levaquin # Hypotension -Unclear etiology, do not necessarily think patient is septic but unable to rule this out at this time -Status post 3 L of IVF -Continue Levaquin -Peripheral levo ordered but blood pressure quite variable and unclear how accurate -Will attempt A-line for more accurate blood pressure readings -Blood and urine cxs pending though no overt infection on UA # ZONIA - creatinine 1.28 with a baseline of 0.6 -Volume depletion versus underlying illness - hydrate with IV fluid #?Hx CHF -CHF documented on problem list however most recent echo 05/06/2022 w/ EF 55-60% -Chest x-ray difficult to interpret -Checking BNP -Checking daily weights, I's and O's #MARISOL -Continue home NIPPV if applicable #DVT ppx: Lovenox Amaya Jacome MD Time spent in the patient's overall evaluation,decision-making process, review of diagnostic data, adjustment of management, discussion with other providers, nursing nursing and ancillary staff involved in patient's care documentation, 76 Minutes Charges/Coding Visit Charges Inpatient E&M: 63485 Init Hosp L3
[2024-01-18] MEDS: Ipratropium/Albuterol Sulfate 3 ML AMPUL.NEB INHALATION ×2 (15:29→18:49)
--- NOTE | 2024-01-18 15:40 | ED.RN ---
This RN went into the patient's room to hang Levophed and Levaquin in each peripheral IV. However, upon assessment the peripheral IVs did not look stable enough to hang Levophed in. This RN informed Dr. Bonilla of the poor venous access and informed him of the need for an central line. Dr. Bonilla informed this RN that we just needed to get the patient up to the ICU because Dr. Bonilla said that Dr. Armas would be able to put in the central line when the patient gets to the ICU. This RN called report to the ICU and brought the patient up to the ICU.
[2024-01-18 15:46] LABS: BNP,B-Type NATRIURETIC PEPTIDE 30.5 pg/mL (0-100)
[2024-01-18] MEDS: Norepinephrine 8 MG in 0.9% Normal Saline (250mL Bag) 242 ML 9.4 MG CONT INF (17:00)
--- NOTE | 2024-01-18 17:33 | PRO.PCM_ITS ---
Procedure Report Date of Procedure: 01/18/24 Procedure: Art line Indication: Inaccurate cuff blood pressures with possible hypotension Time out: Performed José Miguel's test performed on the left hand and adequate ulnar arterial flow was noted. The left wrist was cleansed with chlorhexidine prep and then draped with sterile cloth. Proceduralist hands were washed and sterile gloves were donned. Utilizing sterile technique the left radial artery was visualized with ultrasou nd. It was then cannulated with a radial art line kit and adequate flow was obtained with ease of advancement of the catheter. The catheter was then sutured in place. Sterile dressing was placed and excellent waveform was noted. Procedures Hospitalists Procedures: [id number] Insertion Catheter Artery
--- NOTE | 2024-01-18 17:36 | PCM.OP.PRO ---
Procedure Report Date of Procedure: 01/18/24 Procedure: Central Venous Catheter Indication: Hypotension Consent was obtained from: Patient A time-out was completed verifying correct patient, procedure, site, positioning, and special equipment if applicable. The patient was placed in a dependent position appropriate for central line placement based on the vein to be cannulated. The patient's right groin was prepped and draped in a sterile fashion. 1% lidocaine was used to anesthetize the surrounding skin area. A triple-lumen catheter was introduced into the right femoral vein using the Seldinger technique and under ultrasound guidance. The catheter was threaded smoothly over the guidewire and appropriate blood return was obtained. Each lumen of the catheter was evacuated of air and flushed with sterile saline. The catheter was then sutured in place to the skin and a sterile dressing applied. ULTRASOUND GUIDANCE STATEMENT (Vascular Access): I performed ultrasound image acquisition and interpretation for needle placement during the procedure. The vessel was identified and found to be free of thrombosis by compression technique. A safe point of entry was marked at the skin in an angle for axis was determined. The needle was guided by obtaining free-flowing fluid and by real-time visualization. Procedures Hospitalists Procedures: [id number] US Guide Vascular Access
[2024-01-18] MEDS: levoFLOXacin IV 750 MG/150 ML BAG 100 MG IV (18:28)
[2024-01-18 18:36] LABS: Bedside Glucose 110 mg/dL (74-106)
--- NOTE | 2024-01-18 19:49 | CON.PCM.CC_ITS ---
HPI Consult Data Date of Consult: 01/18/24 HPI Narrative Reason for Consultation: Acute Respiratory failure, AMS HPI Narrative: 63-year-old female with GERD, COPD, MARISOL, TIA, CHF, former smoker, morbidly obese who presented for AMS and Hypoxia. Currently patient on BiPAP/AVAPS and unable to provide history therefore most of the history was obtained by reviewing patient's chart. Patient currently being treated for URI with doxycycline. [facility] and progressively became confused and Hypoxic therefore brought her to ER. Patient is also non compliant with her NIV at the facility. In the ED patient found to have a CO2 of 126 with pO2 of 70 and pH of 7.19 on ABG, therefore patient was started on BiPAP initially. Patient also with ZONIA with creatinine of 1.28 with a baseline around 0.6 in November 2023. In ER patient was given 3 L of IV fluid for hypotension. Patient was given Levaquin for possible respiratory infection and a DuoNeb. Critical care team consulted as patient on NIV and altered. Patient had lactic of 0.3 in ER. Patient was started on Levophed for BP support. A CVC femoral line was also placed. [facility] Medical History (Updated 01/18/24 @ 15:[address] Sarah Bonilla, DO) History of Clostridioides difficile infection Morbid obesity Morbid obesity History of anemia History of hypertension History of morbid obesity History of obstructive sleep apnea History of COPD Anxiety Anemia Personal history of transient ischemic attack (TIA), and cerebral infarction without residual deficits Fibromyalgia Chronic anemia Chronic pain Vitamin D deficiency Seasonal allergies Depression HTN (hypertension) Hyperlipidemia Peptic ulcer disease GERD (gastroesophageal reflux disease) MARISOL (obstructive sleep apnea) Obesity hypoventilation syndrome Chronic respiratory failure with hypoxia HFrEF (heart failure with reduced ejection fraction) Morbid obesity UTI (urinary tract infection) TIA (transient ischemic attack) COPD (chronic obstructive pulmonary disease) Home Medications ?Medication ?Instructions ?Recorded ?Last Taken ?Type amitriptyline 25 mg tablet 25 mg PO QODAY DEPRESSION 05/03/22 04/15/23 History atorvastatin 20 mg tablet 20 mg PO QHS CHOLESTEROL 05/03/22 04/15/23 History famotidine 20 mg tablet 20 mg PO QHS GERD 05/03/22 04/15/23 History fluticasone propionate 50 2 spray intranasal BID PRN NASAL 05/03/22 05/28/22 History mcg/actuation nasal CONGESTION spray,suspension losartan 50 mg tablet 50 mg PO DAILY BLOOD PRESSURE 05/03/22 04/16/23 History montelukast 10 mg tablet 10 mg PO DAILY ALLERGIES 05/03/22 04/16/23 History omeprazole 20 mg tablet,delayed 20 mg PO DAILY GERD 05/03/22 04/16/23 History release roflumilast 500 mcg tablet 500 mcg PO DAILY ASTHMA 05/03/22 04/16/23 History (Daliresp) dicyclomine 10 mg capsule 10 mg PO 4X/DAY IRRITABLE BOWELS 05/05/22 04/16/23 Rx #1 cap albuterol sulfate 90 mcg/actuation 2 puff inhalation Q2H PRN SOB 09/08/22 04/12/23 History aerosol inhaler cholecalciferol (vitamin D3) 50 50 mcg PO DAILY SUPPLEMENT 04/16/23 04/16/23 History mcg (2,000 unit) tablet loperamide 2 mg capsule (Imodium 2 mg PO Q8H PRN DIARRHEA 04/16/23 04/09/23 History A-D) sertraline 50 mg tablet 150 mg PO DAILY DEPRESSION 04/16/23 04/16/23 History acetaminophen 325 mg tablet 650 mg PO Q4H PRN Fever, pain 07/26/23 Unknown History acetaminophen 650 mg rectal 650 mg IL Q4H PRN pain 07/26/23 Unknown History suppository albuterol sulfate 0.63 mg/3 mL 0.63 mg inhalation 4X/DAY PRN 07/26/23 Unknown History solution for nebulization shortness of breath or wheezing aluminum-mag hydroxide-simethicone 30 ml PO Q4H PRN Gastric Burning 07/26/23 Unknown History 400 mg-400 mg-40 mg/5 mL oral susp (Mag-Al Plus Extra Strength) buspirone 5 mg tablet 5 mg PO BID mental health 07/26/23 Unknown History furosemide 20 mg tablet 40 mg PO DAILY diuretic 07/26/23 Unknown History guaifenesin 100 mg/5 mL oral 200 mg PO Q4H PRN cough 07/26/23 Unknown History liquid (Adult Tussin Chest Congestion) loratadine 10 mg tablet (Allergy 10 mg PO DAILY allergies 07/26/23 Unknown History Relief (loratadine)) menthol 0.44 %-zinc oxide 20.6 % 1 applic topical 4X/DAY 07/26/23 Unknown History topical ointment (Calmoseptine) ondansetron HCl 4 mg tablet 4 mg PO Q8H PRN nausea and vomiting 07/26/23 Unknown History sodium phosphates 19 gram-7 118 ml IL DAILY PRN constipation 07/26/23 Unknown History gram/118 mL enema (Fleet Enema) topiramate 25 mg tablet 25 mg PO DAILY migraines 07/26/23 Unknown History trazodone 50 mg tablet 50 mg PO QHS insomnia 07/26/23 Unknown History gabapentin 100 mg capsule 200 mg PO BID pain 11/23/23 Unknown History melatonin 5 mg capsule 5 mg PO QHS insomnia 11/23/23 Unknown History doxycycline monohydrate 100 mg 100 mg PO DAILY respiratory 01/18/24 Unknown History capsule infection prednisone 20 mg tablet 20 mg PO DAILY COPD 01/18/24 Unknown History Allergy/AdvReac Type Severity Reaction Status Date / Time aspirin Allergy Other Verified 01/18/24 12:26 black pepper (pepper) Allergy Other Verified 01/18/24 12:26 coconut Allergy Other Verified 01/18/24 12:26 codeine Allergy Other Verified 01/18/24 12:26 ibuprofen Allergy Other Verified 01/18/24 12:26 Influenza Virus Vaccines Allergy Other Verified 01/18/24 12:26 Penicillins Allergy Anaphylaxis Verified 01/18/24 12:26 rice Allergy Other Verified 01/18/24 12:26 tetanus and diphtheria Allergy Other Verified 01/18/24 12:26 toxoids Tetanus Vaccines and Toxoid Allergy Other Verified 01/18/24 12:26 Family History Mother CAD (coronary artery disease) COPD (chronic obstructive pulmonary disease) Hypertension Heart disease Father CAD (coronary artery disease) COPD (chronic obstructive pulmonary disease) Hypertension Heart disease Surgical History History of ankle surgery Social History housing: [facility] Smoking Status: Former smoker alcohol intake: never substance use type: does not use ROS Review of Systems ROS Unobtainable: due to encephalopathy and due to mental status Objective Data Objective Data Vital Signs: Vital Signs Last response 3 Temperature 37.6 C H 01/18/24 18:45 Temperature Source Core 01/18/24 18:45 Pulse Rate 95 01/18/24 19:45 Respiratory Rate 16 01/18/24 19:00 Respiratory Effort Normal, Non-Labored 01/18/24 18:00 Respiratory Depth Normal 01/18/24 18:00 Respiratory Pattern Normal 01/18/24 18:00 Blood Pressure 95/81 H 01/18/24 19:45 Blood Pressure Mean 85 01/18/24 19:45 Blood Pressure Source Monitor 01/18/24 19:45 Pulse Ox 98 01/18/24 19:00 Oxygen Delivery Method Bi-pap 01/18/24 19:00 Oxygen Flow Rate (L/min) 4 01/18/24 13:35 Fraction of Inspired Oxygen (FIO2) 40 01/18/24 19:00 I&O: I&O Last 24 Hours 3 01/17/24 01/18/24 01/18/24 23:59 11:59 23:59 Intake Total 3032.90 / 3032.90 Balance 3032.90 / 3032.90 I&O: Total Stay 3 01/18/24 12:24 thru 01/18/24 19:45 Intake Total 3032.90 Balance 3032.90 Current Meds Ordered / Administered: Current meds ordered / Administered 3 Generic Name Dose Route Start Last Admin Trade Name Freq PRN Reason Stop Dose Admin Acetaminophen 650 mg 01/18/24 17:28 Acetaminophen 325 Mg Tablet PO Q6H PRN PRN Pain 1-10 Or Fever >100.7 Albuterol Sulfate 2.5 mg 01/18/24 17:28 Albuterol 2.5 Mg/3 Ml Vial.Neb. INHALATION Q2H PRN PRN SOB &/OR WHEEZING Albuterol/Ipratropium 3 ml 01/18/24 17:28 01/18/24 18:49 Ipratropium/Albuterol Sulfate 3 Ml Ampul.Neb INHALATION 3 ml Q4HWA.RT MARY Administration Enoxaparin Sodium 40 mg 01/18/24 22:00 Enoxaparin 40 Mg/0.4 Ml Syringe SC BID MARY Glucagon 1 mg 01/18/24 17:28 Glucagon 1 Mg/Ml Syringe IM X1 PRN HYPOGLYCEMIA Protocol Norepinephrine Bitartrate 8 mg 250 mls @ 9.375 mls/hr 01/18/24 15:05 01/18/24 19:45 / Sodium Chloride CONT INF 5 mcg/min .[id number] MARY 9.4 mls/hr Titration Protocol 5 MCG/MIN Dextrose 250 mls @ 0 mls/hr 01/18/24 17:28 Dextrose 10%-Water IV .Q0M PRN HYPOGLYCEMIA Protocol As Directed Levofloxacin 750 mg in 150 mls @ 100 mls/hr 01/19/24 10:00 Levaquin Iv IV Q24 MARY Sodium Chloride 100 mls @ 15 mls/hr 01/18/24 17:38 IV .Q6H40M PRN Saline Flush Sodium Chloride 100 mls @ 15 mls/hr 01/18/24 17:38 IV .Q6H40M PRN Additional IVPB Infusion Insulin Human Lispro 0 unit 01/18/24 18:00 01/18/24 18:18 Insulin Lispro 100 Unit/Ml Insuln.Pen SC Not Given Q6 [facility] Protocol Melatonin 3 mg 01/18/24 17:28 Melatonin 3 Mg Tablet PO QHS PRN PRN INSOMNIA Methylprednisolone 40 mg 01/18/24 22:00 Methylprednisolone 40 Mg/Ml Vial IV Q8 MARY Ondansetron HCl 4 mg 01/18/24 17:28 Ondansetron 4 Mg/2 Ml Vial IV Q8H PRN PRN NAUSEA/VOMITING Senna/Docusate Sodium 2 tablet 01/18/24 17:28 Senna/Docusate Sodium 1 Tablet PO BID PRN PRN Constipation Sodium Chloride 10 - 40 ml 01/18/24 17:38 0.9 % Nacl (Sterile) Posiflush 10 Ml IV UD PRN Port access or dressing change Sodium Chloride 10 - 40 ml 01/18/24 17:38 0.9% Saline Lock 10 Ml Syringe IV UD PRN Multilumen/[place] Flush Sodium Chloride 10 - 40 ml 01/18/24 17:38 0.9% Saline Lock 10 Ml Syringe IV UD PRN SALINE FLUSH Physical Exam Narrative General: in acute distress; alert, on NIV HEENT: PERRL; Anicteric Sclera; No thyromegaly, JVD, Lymphadenopathy Cardiovascular: Regular Rate and Rhythm; No murmurs, rubs, gallops; no displaced PMI Respiratory: no crackles, wheezes, or rhonchi Abdominal: Obese, Non-tender; Non-distended; Active BS x 4; No Hepatosplenomegaly Extremities: Warm, well perfused; No clubbing, cyanosis, +edema; capillary refill < 2sec Neurological: unable to perform Medical Records Data Attestation: I reviewed the patient's medical records Lab / Micro Data Attestation: I reviewed the patient's lab results. 01/18/24 12:53 01/18/24 12:53 Labs: Laboratory Results - last 24 hr 01/18/24 12:53: WBC 8.4, RBC 3.77 L, Hgb 9.5 L, Hct 35.1 L, MCV 93.1, MCH 25.2 L , MCHC 27.1 L, RDW Std Deviation 52.1 H, RDW Coeff of David 15.4 H, Plt Count 198, MPV 12.0, Immature Gran % (Auto) 1.100 H, Neut % (Auto) 66.5, Lymph % (Auto) 22.2, [place] % (Auto) 8.8, Eos % (Auto) 1.0, Baso % (Auto) 0.4, Absolute Neuts (auto) 5.6, Absolute Lymphs (auto) 1.87, Nucleated RBC % 0, Sodium 140, Potassium 4.5, Chloride 94 L, Carbon Dioxide 43.0 H, Anion Gap 3 L, BUN 28 H, C reatinine 1.28 H, Estim Creat Clear Calc 69.35, Est GFR (MDRD) Af Amer 54 L, Est GFR (MDRD) Non-Af 45 L, BUN/Creatinine Ratio 21.9 H, Glucose 109 H, Lactic Acid 0.3 L, Calcium 10.4 H, Total Bilirubin 0.30, AST 14 L, ALT 9 L, Alkaline Phosphatase 76, Troponin I High Sens 18, B-Natriuretic Peptide 30.5, Total Protein 6.5, Albumin 2.7 L, Globulin 3.8, Albumin/Globulin Ratio 0.7 L 01/18/24 13:35: Urine Color Yellow, Urine Clarity Sl. Cloudy, Urine pH 6.0, Ur Specific [place] 1.025, Urine Protein 30 H, Urine Glucose (UA) Normal, Urine Ketones Negative, Urine Occult Blood Negative, Urine Nitrite Negative, Urine Bilirubin Negative, Urine Urobilinogen Normal, Ur Leukocyte Esterase Negative, Urine RBC 0 SEEN, Urine WBC 0 SEEN, Ur Squamous Epith Cells 0 SEEN, Urine Bacteria 0 SEEN, Urine Mucus 0 SEEN 01/18/24 18:17: POC Glucose 110 H Micro: Microbiology 01/18/24 17:25 Urine Catheter - Stevenson Legionella Antigen - Final 01/18/24 17:25 Urine Catheter - Stevenson Streptococcus pneumoniae Antigen (M - Final 01/18/24 13:03 Mucosa - Nose SARS-CoV-2, Influenza & RSV (PCR) - Final ABG Data ABG results: ABG 01/18/24 01/18/24 13:24 13:31 Specimen Type ART ART Sample Site L Radial Not entered pH 7.18 L* 7.19 L* Bicarbonate Actual 42.1 H 47.7 H Total CO2 46 > 50 Base Excess 14 H 19 H O2 Saturation 88 L 86 L O2 % 4.0 ABG pCO2 112.2 H* 126.3 H* ABG pO2 74 L 70 L José Miguel Test Positive O2 Delivery Device Cannula Not entered Vent Mode Not entered Not entered Crit Call To/Read Back Yes Yes Blood Gas Notified [facility] Blood Gas Notified Time 13:26:02 Imaging Radiology Impression Brain CT 01/18/24 12:51 IMPRESSION: Normal unenhanced CT scan of the brain. 1.2 cm polyp or retention cyst in the inferior medial wall of the right maxillary sinus. Electronically Signed: David Conner MD at 14:59 EDT , Chest X-Ray 01/18/24 13:55 IMPRESSION: Vascular congestion. Persistent soft tissue density at the right lung base. Electronically Signed: David Conner MD at 14:57 EDT , Assessment and Plan . Assessment and plan: #Acute Respiratory failure, hypercapnia #Metabolic encephalopathy #Acute COPD exacerbation #Pneumonia #Sepsis #ZONIA #Morbid obesity #Non Compliance #CHF #MARISOL #Former smoker Plan -Monitor patient respiratory status and hemodynamics closely in ICU -Patient is high risk for needing invasive mechanical ventilation therefore closely monitoring in ICU -Continue noninvasive mechanical ventilation -Patient tolerating AVAPs at 500/RR14/EPAP12/MinPS15/MaxPS 26 40% FiO2. -Repeat ABG as needed -Noninvasive ventilatory changes depending on ABG and Ventilatory pressures -Duonebs q6hrs -PanCultures including Blood, sputum and urine as indicated -Close monitoring of hemodynamics in ICU -May need to use NICOM -IVF +/- 30ml/Kg bolus - given in ER -IV pressors - Levophed/Vasopressin/Neosynephrine -Solumedrol started -Monitor Lactic acid - normal -IV abx- Levofloxacin -Check for COVID, flu -Check legionella and strep urine antigen -Monitor Renal Function daily -Avoid nephrotoxic medications -IVF if no other contraindications -Renal US -Stevenson catheter to monitor I/O?s -CT head - negative -DVT Px - Lovenox Critical Care Time:65mins The entirety of this encounter was done via Telemedicine
[2024-01-18 21:40] LABS: Base Excess 13 mmol/L (-2 to +2); Bicarbonate 38.7 mmol/L (22-26); Blood Gas Specimen Type ART; Mode Not entered; O2 Delivery Device BiPAP; PEEP 12; PO2 106 mmHG (75-100); RR 14; SITE Art Line; SO2 97 % (95-99); Total Carbon Dioxide 41 mmol/L; pCO2 72.6 mmHg (35-45); pH 7.34 (7.35-7.45)
[2024-01-18] MEDS: Vancomycin HCl 2,000 MG in 0.9% Normal Saline (500mL Bag) 500 ML 250 MG IV (22:53)
[2024-01-18 23:14] LABS: Bedside Glucose 90 mg/dL (74-106)
--- NOTE | 2024-01-18 23:54 | PCM.RX.CS ---
Consult Antibiotic Management Pharmacy has been consulted to manage selected antibiotic: Vancomycin Type of Intervention Type of Consult: New start Labs Labs: Sodium 140 mmol/L (136-145) 01/18/24 12:53 Potassium 4.5 mmol/L (3.5-5.1) 01/18/24 12:53 Chloride 94 mmol/L (98-107) L 01/18/24 12:53 Carbon Dioxide 43.0 mmol/L (21.0-32.0) H 01/18/24 12:53 Anion Gap 3 (5-15) L 01/18/24 12:53 BUN 28 mg/dL (7-18) H 01/18/24 12:53 Creatinine 1.28 mg/dL (0.55-1.02) H 01/18/24 12:53 Est GFR (MDRD) Af Amer 54 mL/min (>60) L 01/18/24 12:53 Est GFR (MDRD) Non-Af 45 mL/min (>60) L 01/18/24 12:53 BUN/Creatinine Ratio 21.9 RATIO (10-20) H 01/18/24 12:53 Glucose 109 mg/dL (74-106) H 01/18/24 12:53 Microbiology Microbiology: Microbiology 01/18/24 18:57 Mucosa - Nasopharyngeal Respiratory Panel (PCR) - Final 01/18/24 17:25 Urine Catheter - Stevenson Legionella Antigen - Final 01/18/24 17:25 Urine Catheter - Stevenson Streptococcus pneumoniae Antigen (M - Final 01/18/24 13:03 Mucosa - Nose SARS-CoV-2, Influenza & RSV (PCR) - Final Dosing Weight Weight used for dosin kg Estimated Creatinine Clearance Estimated Creatinine Clearance: 69 Goal Trough Goal Trough: 15-20 mcg/mL Pharmacy Plan for Drug Dosing Pharmacy Plan for Drug Dosing: Pharmacy Service will continue to monitor and adjust dosing as required. Follow-Up Labs Follow-Up Labs: Trough: Vancomycin Date/Time Labs Ordered Labs to be done on [date and time ordered]: 01/20/24 @3520
[2024-01-19] VITALS (39 sets, daily range): BP systolic 84–141; BP diastolic 48–94; PULSE 70–90; RESP 14–28; TEMP 36.9–37.7; O2SAT 85–99; BMI 51.7
[2024-01-19 05:29] LABS: Absolute Lymphocyte Count 1.62 X10^3/uL (0.83-4.51); Absolute Neutrophil Count 7.4 X10^3/uL (2.0-7.7); Basophil# 0.03 X10^3/uL; Basophil% 0.3 % (0-1); Hematocrit 32.3 % (37-47); Hemoglobin 9.2 g/dL (12.0-15.0); Lymphocyte # 1.62 X10^3/ul (0.83-4.51); Mean Corp Hgb Conc 28.5 g/dL (32-36); Mean Corpuscular Hgb 25.3 pg (27.0-32.0); Mean Platelet Vol. 12.1 fl (6.2-12.0); Monocyte# 0.34 X10^3/uL; Monocyte% 3.6 % (0-10); NRBC Flagged by Analyzer 0 % (0-5); Neutrophil # 7.37 X10^3/uL (2.7-7.7); Neutrophil % 77.4 % (47-70); Platelet Count 227 K/mm3 (150-450); RBC Distribution Width CV 15.2 % (11.6-14.6); Red Blood Count 3.63 M/mm3 (4.2-5.4); White Blood Count 9.5 K/mm3 (4.4-11.0)
[2024-01-19 05:38] LABS: Bedside Glucose 119 mg/dL (74-106)
[2024-01-19 05:45] LABS: Anion Gap 3 (5-15); BUN 28 mg/dL (7-18); BUN/Creat Ratio 32.8 RATIO (10-20); Calcium,Total 10.1 mg/dL (8.5-10.1); Chloride 98 mmol/L (98-107); Creatinine, Serum 0.85 mg/dL (0.55-1.02); EST Glomerular Filtration Rate 72 mL/min (>60); Est Glom Filt Rate - Afr Amer 87 mL/min (>60); Estimated Creatinine Clearance 103.33 ml/min; Glucose 122 mg/dL (74-106); Magnesium 1.3 mg/dL (1.6-2.6); Potassium 4.4 mmol/L (3.5-5.1); Sodium Level 139 mmol/L (136-145)
--- NOTE | 2024-01-19 06:35 | PN.HOSP_ITS ---
Reason for Visit Reason for Visit: Altered mental status Subjective Subjective Patient is more alert but still somewhat confused. Her daughter does indicate that she gets like this when she gets urinary tract infections or other infections. Cultures are pending and she is on broad-spectrum antibiotics. We have been able to wean off pressors at 6 AM this morning. Objective Data Objective Data Vital Signs: Vital Signs Temp Pulse Resp BP Pulse Ox O2 Del Method O2 Flow Rate 99.3 F H 82 14 84/63 L 90 Bi-pap 4 01/19/24 04:00 01/19/24 06:30 01/19/24 06:00 01/19/24 06:30 01/19/24 06:00 01/19/24 06:00 01/18/24 13:35 FiO2 30 01/19/24 06:00 Oxygen Flow Rate (L/min) 4 Oxygen Delivery Method Bi-pap Weight: 149.5 kg Body Mass Index (BMI) 51.7 Intake & Output: Intake and Output for Last 24 Hours 01/17/24 01/18/24 01/19/24 23:59 23:59 23:59 Intake Total 3213.45 / 3222.85 603.45 / 603.45 Output Total 350 / 350 425 / 425 Balance 2863.45 / 2872.85 178.45 / 178.45 Lab / Micro Data 01/19/24 05:10 01/19/24 05:10 Labs: Laboratory Results - last 24 hr 01/18/24 12:53: WBC 8.4, RBC 3.77 L, Hgb 9.5 L, Hct 35.1 L, MCV 93.1, MCH 25.2 L , MCHC 27.1 L, RDW Std Deviation 52.1 H, RDW Coeff of David 15.4 H, Plt Count 198, MPV 12.0, Immature Gran % (Auto) 1.100 H, Neut % (Auto) 66.5, Lymph % (Auto) 22.2, [place] % (Auto) 8.8, Eos % (Auto) 1.0, Baso % (Auto) 0.4, Absolute Neuts (auto) 5.6, Absolute Lymphs (auto) 1.87, Nucleated RBC % 0, Sodium 140, Potassium 4.5, Chloride 94 L, Carbon Dioxide 43.0 H, Anion Gap 3 L, BUN 28 H, C reatinine 1.28 H, Estim Creat Clear Calc 69.35, Est GFR (MDRD) Af Amer 54 L, Est GFR (MDRD) Non-Af 45 L, BUN/Creatinine Ratio 21.9 H, Glucose 109 H, Lactic Acid 0.3 L, Calcium 10.4 H, Total Bilirubin 0.30, AST 14 L, ALT 9 L, Alkaline Phosphatase 76, Troponin I High Sens 18, B-Natriuretic Peptide 30.5, Total Protein 6.5, Albumin 2.7 L, Globulin 3.8, Albumin/Globulin Ratio 0.7 L 01/18/24 13:35: Urine Color Yellow, Urine Clarity Sl. Cloudy, Urine pH 6.0, Ur Specific [place] 1.025, Urine Protein 30 H, Urine Glucose (UA) Normal, Urine Ketones Negative, Urine Occult Blood Negative, Urine Nitrite Negative, Urine Bilirubin Negative, Urine Urobilinogen Normal, Ur Leukocyte Esterase Negative, Urine RBC 0 SEEN, Urine WBC 0 SEEN, Ur Squamous Epith Cells 0 SEEN, Urine Bacteria 0 SEEN, Urine Mucus 0 SEEN 01/18/24 18:17: POC Glucose 110 H 01/18/24 22:50: POC Glucose 90 01/19/24 05:10: WBC 9.5, RBC 3.63 L, Hgb 9.2 L, Hct 32.3 L, MCV 89.0, MCH 25.3 L , MCHC 28.5 L D, RDW Std Deviation 48.0 H, RDW Coeff of David 15.2 H, Plt Count 227, MPV 12.1 H, Immature Gran % (Auto) 1.700 H, Neut % (Auto) 77.4 H, Lymph % (Auto) 17.0 L, [place] % (Auto) 3.6, Eos % (Auto) 0.0, Baso % (Auto) 0.3, Absolute Neuts (auto) 7.4, Absolute Lymphs (auto) 1.62, Nucleated RBC % 0, Sodium 139, Potassium 4.4, Chloride 98, Carbon Dioxide 38.0 H, Anion Gap 3 L, BUN 28 H, Creatinine 0.85, Estim Creat Clear Calc 103.33, Est GFR (MDRD) Af Amer 87, Est GFR (MDRD) Non-Af 72, BUN/Creatinine Ratio 32.8 H, Glucose 122 H, Calcium 10.1, Magnesium 1.3 L 01/19/24 05:11: POC Glucose 119 H Micro: Microbiology 01/18/24 18:57 Mucosa - Nasopharyngeal Respiratory Panel (PCR) - Final 01/18/24 17:25 Urine Catheter - Stevenson Legionella Antigen - Final 01/18/24 17:25 Urine Catheter - Stevenson Streptococcus pneumoniae Antigen (M - Final 01/18/24 13:03 Mucosa - Nose SARS-CoV-2, Influenza & RSV (PCR) - Final ABG Data ABG results: ABG 01/18/24 01/18/24 01/18/24 13:24 13:31 21:35 Specimen Type ART ART ART Sample Site L Radial Not entered Art Line pH 7.18 L* 7.19 L* 7.34 L Bicarbonate Actual 42.1 H 47.7 H 38.7 H Total CO2 46 > 50 41 Base Excess 14 H 19 H 13 H O2 Saturation 88 L 86 L 97 O2 % 4.0 40.0 ABG pCO2 112.2 H* 126.3 H* 72.6 H* ABG pO2 74 L 70 L 106 H José Miguel Test Positive N/A Respiration Rate 14 O2 Delivery Device Cannula Not entered BiPAP Vent Mode Not entered Not entered Not entered Tidal Volume 500.0 POC PEEP 12 Crit Call To/Read Back Yes Yes Yes Blood Gas Notified [facility] ICU physician Blood Gas Notified Time 13:26:02 21:37:31 Radiography Diagnostic Testing: Radiology Impression Brain CT 01/18/24 12:51 IMPRESSION: Normal unenhanced CT scan of the brain. 1.2 cm polyp or retention cyst in the inferior medial wall of the right maxillary sinus. Electronically Signed: David Conner MD at 14:59 EDT , Chest X-Ray 01/18/24 13:55 IMPRESSION: Vascular congestion. Persistent soft tissue density at the right lung base. Electronically Signed: David Conner MD at 14:57 EDT , Physical Exam Const alert and no apparent distress; Negative for oriented x3 Constitutional Narrative: Super morbidly obese, white female, lying in bed on BiPAP, currently appears comfortable, appears ill but does not currently appear toxic, markedly confused and oriented only to self. Orientation / Consciousness: confused HEENT head/scalp atraumatic and moist oral mucous membranes HEENT Narrative: Mallampati 4, no thrush Head and Scalp: normocephalic Resp normal respiratory effort, no retractions and no use of accessory muscles Resp Narrative: Exceedingly distant breath sounds due to body habitus but no adventitious sounds appreciated, currently appears comfortable on BiPAP Auscultation: Negative for rales, rhonchi or wheezes Cardio regular rate, regular rhythm, S1 normal heart sound, S2 normal heart sound, no murmurs, no rub, no gallops and no clicks GI normal to inspection, nondistended, normoactive bowel sounds, soft to palpation and non-tender GI Narrative: Large protuberant abdomen, small umbilical hernia noted Extremity no clubbing, cyanosis or edema Skin skin turgor normal, no jaundice, no petechiae and no mottling Skin Narrative: Areas of cutaneous candidiasis noted, skin is pale Neuro moves all extremities and no focal motor deficits Sensorium / Orientation: awake, alert and oriented to person; Negative for oriented to place or oriented to time Speech: speech normal Psych Psych Narrative: Intermittent agitation and confusion but answers questions Assessment & Plan Assessment/Plan (1) Altered mental status: (2) Acute on chronic respiratory failure with hypoxia and hypercapnia: (3) Septic shock: PLAN: Plan Acute on chronic hypoxic and hypercapnic respiratory failure -Possible healthcare acquired pneumonia -COVID/flu/RSV negative -Legionella/strep pneumo antigens are negative -Respiratory viral panel is unremarkable -Baseline pCO2 appears to be between 75 and 80--> 126.3 on ABG at admission -Has now normalized with noninvasive ventilation -Will likely be able to trial off BiPAP later today -Patient will at the very least need BiPAP with naps and nocturnally after continuous use is no longer required -Scheduled and as needed nebulizers -I-S and Acapella once off BiPAP -Continue Solu-Medrol 40 every 8 -High risk for requiring intubation--> it is verified that patient is a full code -N.p.o. for now except for sips and chips and p.o. medications -Pulm/critical care medicine following-appreciate input Septic shock -Patient does meet criteria for septic shock and has required pressors -Pressors off since 6 AM -Continue to monitor in ICU for now -Blood/urine/sputum cultures are pending -Continue broad-spectrum antibiotics with Levaquin and vancomycin and await sensitivities -Patient does receive IV fluids with 30 mL liters per kilogram bolus prior to admission -Wean pressors as able Toxic/metabolic encephalopathy -Secondary to marked hypercapnia on presentation -Clearing with improvement of her hypercapnia but remains confused -Infection may play into this as well ZONIA -Baseline serum creatinine appears to be between 0.4 and 0.8 -1.28 on admission--> ZONIA now resolved -Normalized this morning -Continue hold diuretics due to blood pressures Hypomagnesemia -4 g bolus -Recheck in a.m. Generalized weakness/debility -PT/OT consultation -Case management/social work consultation for assistance with discharge planning Chronic anemia -Baseline hemoglobin appears to be between 9 and 10 -Current hemoglobin 9.2 -Will monitor Hyperglycemia -Patient does have a history of insulin resistance however most recent hemoglobin A1c from 11/24/2023 was 5.5 -Do anticipate that her blood sugars may be higher while she is on steroids -Monitor need for insulin Essential hypertension/hyperlipidemia -Hold home Lasix due to hypotension -Continue home atorvastatin -Hold home losartan due to hypotension Vitamin D deficiency -Restart cholecalciferol at discharge Irritable bowel syndrome -Continue home dicyclomine History of constipation -As needed medication available Chronic pain/fibromyalgia -Continue home medications History of GERD/peptic ulcer disease -Continue home famotidine History of TIA -Patient is not on any antiplatelet therapy -Reason is unclear however may be related to previous peptic ulcer disease MARISOL/obesity hypoventilation syndrome -Will need to continue BiPAP with naps and nocturnally after continuous needs have abated Super morbid obesity -Complicates treatment, prognosis, outcomes -Increases risk for intubation History of tobacco abuse -Suspect COPD but no formal testing has been performed -Continue aerosols as ordered DVT prophylaxis -40 Lovenox SQ twice daily -CODE STATUS -Full code per paperwork from nursing facility Charges/Coding Visit Charges Inpatient E&M: 11489 Subs Hosp L2
[2024-01-19] MEDS: Magnesium Sulfate 4gm/100mL 4 GM/100 ML IV.SOLN. IV (06:59)
[2024-01-19] MEDS: Ipratropium/Albuterol Sulfate 3 ML AMPUL.NEB INHALATION ×4 (07:23→19:13)
[2024-01-19] MEDS: Enoxaparin 40 MG/0.4 ML Syringe SC ×2 (08:12→21:49)
[2024-01-19] MEDS: Nystatin Powder 15gm Bottle 1 APPLIC TOPICAL ×3 (08:12→21:49)
[2024-01-19] MEDS: Midodrine HCl 5 MG Tablet 10 MG PO ×3 (08:13→17:29)
[2024-01-19] MEDS: Dicyclomine 10 MG Capsule PO ×4 (08:14→21:49)
[2024-01-19] MEDS: Montelukast 10 MG Tablet PO (08:15)
[2024-01-19] MEDS: Sertraline 50 MG Tablet 150 MG PO (08:17)
[2024-01-19] MEDS: busPIRone 5 MG Tablet PO ×2 (08:17→21:49)
[2024-01-19] MEDS: Topiramate 25 MG Tablet PO (08:18)
[2024-01-19] MEDS: Pantoprazole Sodium 20 MG Tablet PO (08:18)
[2024-01-19] MEDS: Gabapentin 100 MG Capsule 200 MG PO ×2 (08:25→21:49)
--- NOTE | 2024-01-19 08:31 | CASEMGMT ---
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 SW sent updates to [facility]. Patient is currently not alert and oriented. SW will follow up with patient to confirm the plan is to return to [facility]. Sheeba GENAO
[2024-01-19] MEDS: levoFLOXacin IV 750 MG/150 ML BAG 100 MG IV (08:32)
--- NOTE | 2024-01-19 08:38 | PCM.RX.CS ---
Consult Antibiotic Management Pharmacy has been consulted to manage selected antibiotic: Vancomycin Type of Intervention Type of Consult: Follow-up Suspected Infection Suspected Infection: Sepsis and Pneumonia Labs Labs: Sodium 139 mmol/L (136-145) 01/19/24 05:10 Potassium 4.4 mmol/L (3.5-5.1) 01/19/24 05:10 Chloride 98 mmol/L (98-107) 01/19/24 05:10 Carbon Dioxide 38.0 mmol/L (21.0-32.0) H 01/19/24 05:10 Anion Gap 3 (5-15) L 01/19/24 05:10 BUN 28 mg/dL (7-18) H 01/19/24 05:10 Creatinine 0.85 mg/dL (0.55-1.02) 01/19/24 05:10 Est GFR (MDRD) Af Amer 87 mL/min (>60) 01/19/24 05:10 Est GFR (MDRD) Non-Af 72 mL/min (>60) 01/19/24 05:10 BUN/Creatinine Ratio 32.8 RATIO (10-20) H 01/19/24 05:10 Glucose 122 mg/dL (74-106) H 01/19/24 05:10 Microbiology Microbiology: Microbiology 01/18/24 18:57 Mucosa - Nasopharyngeal Respiratory Panel (PCR) - Final 01/18/24 17:25 Urine Catheter - Stevenson Legionella Antigen - Final 01/18/24 17:25 Urine Catheter - Stevenson Streptococcus pneumoniae Antigen (M - Final 01/18/24 13:03 Mucosa - Nose SARS-CoV-2, Influenza & RSV (PCR) - Final Pharmacy Plan for Drug Dosing Pharmacy Plan for Drug Dosing: DAILY ASSESSMENT Current Vancomycin Dose: 1500MG Q12 Number of Doses Received: 1 Current Renal Function: SCR 0.85 MG/DL, CRCL 103 ML/MIN Renal Function Trend: improved from SCR 1.28 MG/DL, CRCL 69 ML/MIN Lab/Micro: blood and urine cx pending Any Change in Vanc Plan: Yes, CRCL improved to 103 mL/min. Will change regimen to 1500MG Q8 to start now and adjust trough. Pending Level: 01/20/24 @ 0030 Pharmacy Service will continue to monitor and adjust dosing as required.
[2024-01-19] MEDS: Vancomycin HCl 1,500 MG in 0.9% Normal Saline (500mL Bag) 500 ML 250 MG IV ×2 (11:19→15:50)
[2024-01-19 11:39] LABS: Bedside Glucose 140 mg/dL (74-106)
--- NOTE | 2024-01-19 12:23 | PN.CC_ITS ---
Objective Data Objective Data Vital Signs: Vital Signs Last response 3 Temperature 36.9 C 01/19/24 10:00 Temperature Source Core 01/19/24 10:00 Pulse Rate 90 01/19/24 12:00 Respiratory Rate 22 H 01/19/24 12:00 Respiratory Effort Normal, Non-Labored 01/19/24 11:46 Respiratory Depth Normal 01/19/24 11:46 Respiratory Pattern Normal 01/19/24 11:46 Blood Pressure 95/65 01/19/24 12:00 Blood Pressure Mean 75 01/19/24 12:00 Blood Pressure Source Arterial Line 01/19/24 10:00 Pulse Ox 90 01/19/24 12:00 Oxygen Delivery Method Nasal Cannula 01/19/24 12:00 Oxygen Flow Rate (L/min) 2 01/19/24 12:00 Fraction of Inspired Oxygen (FIO2) 30 01/19/24 07:59 I&O: I&O Last 24 Hours 3 01/18/24 01/19/24 01/19/24 23:59 11:59 23:59 Intake Total 3213.45 / 3222.85 853.45 / 853.45 Output Total 350 / 350 425 / 575 150 / 575 Balance 2863.45 / 2872.85 428.45 / 278.45 -150 / 278.45 I&O: Total Stay 3 01/18/24 12:24 thru 01/19/24 12:00 Intake Total 4066.90 Output Total 925 Balance 3141.90 Current Meds Ordered / Administered: Current meds ordered / Administered 3 Generic Name Dose Route Start Last Admin Trade Name Freq PRN Reason Stop Dose Admin Acetaminophen 650 mg 01/18/24 17:28 Acetaminophen 325 Mg Tablet PO Q6H PRN PRN Pain 1-10 Or Fever >100.7 Al Hydroxide/Mg Hydroxide 30 ml 01/19/24 06:38 Mag Hydrox/Al Hydrox/Simeth 30 Ml Udc PO Q4H PRN PRN Gastric Burning Albuterol Sulfate 2.5 mg 01/18/24 17:28 Albuterol 2.5 Mg/3 Ml Vial.Neb. INHALATION Q2H PRN PRN SOB &/OR WHEEZING Albuterol/Ipratropium 3 ml 01/18/24 17:28 01/19/24 11:33 Ipratropium/Albuterol Sulfate 3 Ml Ampul.Neb INHALATION 3 ml Q4HWA.RT MARY Administration Amitriptyline HCl 25 mg 01/20/24 22:00 Amitriptyline 25 Mg Tablet PO QODAY@2200 MARY Atorvastatin Calcium 20 mg 01/19/24 22:00 Atorvastatin Calcium 20 Mg Tablet PO QHS MARY Buspirone HCl 5 mg 01/19/24 10:00 01/19/24 08:17 Buspirone 5 Mg Tablet PO 5 mg BID AMRY Administration Dicyclomine HCl 10 mg 01/19/24 10:00 01/19/24 08:14 Dicyclomine 10 Mg Capsule PO 10 mg 4X/DAY MARY Administration Enoxaparin Sodium 40 mg 01/18/24 22:00 01/19/24 08:12 Enoxaparin 40 Mg/0.4 Ml Syringe SC 40 mg BID MARY Administration Famotidine 20 mg 01/19/24 22:00 Famotidine 20 Mg Tablet PO QHS MARY Gabapentin 200 mg 01/19/24 10:00 01/19/24 08:25 Gabapentin 100 Mg Capsule PO 200 mg BID MARY Administration Glucagon 1 mg 01/18/24 17:28 Glucagon 1 Mg/Ml Syringe IM X1 PRN HYPOGLYCEMIA Protocol Guaifenesin 10 ml 01/19/24 06:38 Guaifenesin 10 Ml Udc (200mg/10ml) PO Q4H PRN PRN cough Norepinephrine Bitartrate 8 mg 250 mls @ 9.375 mls/hr 01/18/24 15:05 01/19/24 10:00 / Sodium Chloride CONT INF 0 mcg/min .[id number] MARY 0 mls/hr Titration Protocol 5 MCG/MIN Dextrose 250 mls @ 0 mls/hr 01/18/24 17:28 Dextrose 10%-Water IV .Q0M PRN HYPOGLYCEMIA Protocol As Directed Levofloxacin 750 mg in 150 mls @ 100 mls/hr 01/19/24 10:00 01/19/24 11:05 Levaquin Iv IV Infused Q24 MARY Infusion Sodium Chloride 100 mls @ 15 mls/hr 01/18/24 17:38 IV .Q6H40M PRN Saline Flush Sodium Chloride 100 mls @ 15 mls/hr 01/18/24 17:38 IV .Q6H40M PRN Additional IVPB Infusion Vancomycin IV-PHARMACY TO DOSE 500 mls @ 250 mls/hr 01/18/24 22:03 1 each/ Sodium Chloride IV PRN PRN Rx to Dose Protocol Vancomycin HCl 1,500 mg/ 530 mls @ 250 mls/hr 01/19/24 09:00 01/19/24 11:19 Sodium Chloride IV 250 mls/hr Q8H MARY Administration Insulin Human Lispro 0 unit 01/18/24 18:00 01/19/24 11:17 Insulin Lispro 100 Unit/Ml Insuln.Pen SC Not Given Q6 MARY Protocol Melatonin 5 mg 01/19/24 22:00 Melatonin 10 Mg Tablet PO QHS MARY Methylprednisolone 40 mg 01/18/24 22:00 01/19/24 05:15 Methylprednisolone 40 Mg/Ml Vial IV 40 mg Q8 MARY Administration Midodrine 10 mg 01/19/24 08:00 01/19/24 11:19 Midodrine Hcl 5 Mg Tablet PO 10 mg TIDCM MARY Administration Montelukast Sodium 10 mg 01/19/24 10:00 01/19/24 08:15 Montelukast 10 Mg Tablet PO 10 mg DAILY MARY Administration Non-Formulary Medication 500 mcg 01/19/24 10:00 Roflumilast [Daliresp] PO DAILY [facility] Nystatin 1 applic 01/19/24 07:45 01/19/24 08:12 Nystatin Powder 15gm Bottle TOPICAL 1 applic TID MARY Administration Protocol Ondansetron HCl 4 mg 01/18/24 17:28 Ondansetron 4 Mg/2 Ml Vial IV Q8H PRN PRN NAUSEA/VOMITING Pantoprazole Sodium 20 mg 01/19/24 10:00 01/19/24 08:18 Pantoprazole Sodium 20 Mg Tablet PO 20 mg DAILY MARY Administration Senna/Docusate Sodium 2 tablet 01/18/24 17:28 Senna/Docusate Sodium 1 Tablet PO BID PRN PRN Constipation Sertraline HCl 150 mg 01/19/24 10:00 01/19/24 08:17 Sertraline 50 Mg Tablet PO 150 mg DAILY MARY Administration Sodium Chloride 10 - 40 ml 01/18/24 17:38 0.9 % Nacl (Sterile) Posiflush 10 Ml IV UD PRN Port access or dressing change Sodium Chloride 10 - 40 ml 01/18/24 17:38 0.9% Saline Lock 10 Ml Syringe IV UD PRN Multilumen/[place] Flush Sodium Chloride 10 - 40 ml 01/18/24 17:38 0.9% Saline Lock 10 Ml Syringe IV UD PRN SALINE FLUSH Topiramate 25 mg 01/19/24 10:00 01/19/24 08:18 Topiramate 25 Mg Tablet PO 25 mg DAILY [facility] Administration Trazodone HCl 50 mg 01/19/24 22:00 Trazodone 50 Mg Tablet PO QHS [facility] Vancomycin Protocol 1 lab 01/19/24 22:30 Vancomycin Trough/Random Due MC 01/20/24 02:30 DAILY [facility] Lab / Micro Data Attestation: I reviewed the patient's lab results. 01/19/24 05:10 01/19/24 05:10 Labs: Laboratory Results - last 24 hr 01/18/24 12:53: WBC 8.4, RBC 3.77 L, Hgb 9.5 L, Hct 35.1 L, MCV 93.1, MCH 25.2 L , MCHC 27.1 L, RDW Std Deviation 52.1 H, RDW Coeff of David 15.4 H, Plt Count 198, MPV 12.0, Immature Gran % (Auto) 1.100 H, Neut % (Auto) 66.5, Lymph % (Auto) 22.2, [place] % (Auto) 8.8, Eos % (Auto) 1.0, Baso % (Auto) 0.4, Absolute Neuts (auto) 5.6, Absolute Lymphs (auto) 1.87, Nucleated RBC % 0, Sodium 140, Potassium 4.5, Chloride 94 L, Carbon Dioxide 43.0 H, Anion Gap 3 L, BUN 28 H, C reatinine 1.28 H, Estim Creat Clear Calc 69.35, Est GFR (MDRD) Af Amer 54 L, Est GFR (MDRD) Non-Af 45 L, BUN/Creatinine Ratio 21.9 H, Glucose 109 H, Lactic Acid 0.3 L, Calcium 10.4 H, Total Bilirubin 0.30, AST 14 L, ALT 9 L, Alkaline Phosphatase 76, Troponin I High Sens 18, B-Natriuretic Peptide 30.5, Total Protein 6.5, Albumin 2.7 L, Globulin 3.8, Albumin/Globulin Ratio 0.7 L 01/18/24 13:35: Urine Color Yellow, Urine Clarity Sl. Cloudy, Urine pH 6.0, Ur Specific [place] 1.025, Urine Protein 30 H, Urine Glucose (UA) Normal, Urine Ketones Negative, Urine Occult Blood Negative, Urine Nitrite Negative, Urine Bilirubin Negative, Urine Urobilinogen Normal, Ur Leukocyte Esterase Negative, Urine RBC 0 SEEN, Urine WBC 0 SEEN, Ur Squamous Epith Cells 0 SEEN, Urine Bacteria 0 SEEN, Urine Mucus 0 SEEN 01/18/24 18:17: POC Glucose 110 H 01/18/24 22:50: POC Glucose 90 01/19/24 05:10: WBC 9.5, RBC 3.63 L, Hgb 9.2 L, Hct 32.3 L, MCV 89.0, MCH 25.3 L , MCHC 28.5 L D, RDW Std Deviation 48.0 H, RDW Coeff of David 15.2 H, Plt Count 227, MPV 12.1 H, Immature Gran % (Auto) 1.700 H, Neut % (Auto) 77.4 H, Lymph % (Auto) 17.0 L, [place] % (Auto) 3.6, Eos % (Auto) 0.0, Baso % (Auto) 0.3, Absolute Neuts (auto) 7.4, Absolute Lymphs (auto) 1.62, Nucleated RBC % 0, Sodium 139, Potassium 4.4, Chloride 98, Carbon Dioxide 38.0 H, Anion Gap 3 L, BUN 28 H, Creatinine 0.85, Estim Creat Clear Calc 103.33, Est GFR (MDRD) Af Amer 87, Est GFR (MDRD) Non-Af 72, BUN/Creatinine Ratio 32.8 H, Glucose 122 H, Calcium 10.1, Magnesium 1.3 L 01/19/24 05:11: POC Glucose 119 H 01/19/24 11:17: POC Glucose 140 H Micro: Microbiology 01/18/24 13:35 Urine, Catheterized Urine Culture - Preliminary Culture exhibits no growth. 01/18/24 18:57 Mucosa - Nasopharyngeal Respiratory Panel (PCR) - Final 01/18/24 17:25 Urine Catheter - Stevenson Legionella Antigen - Final 01/18/24 17:25 Urine Catheter - Stevenson Streptococcus pneumoniae Antigen (M - Final 01/18/24 13:03 Mucosa - Nose SARS-CoV-2, Influenza & RSV (PCR) - Final ABG Data ABG results: ABG 01/18/24 01/18/24 01/18/24 13:24 13:31 21:35 Specimen Type ART Cancelled ART Sample Site L Radial Cancelled Art Line pH 7.18 L* Cancelled 7.34 L Bicarbonate Actual 42.1 H Cancelled 38.7 H Total CO2 46 Cancelled 41 Base Excess 14 H Cancelled 13 H O2 Saturation 88 L Cancelled 97 O2 % 4.0 Cancelled 40.0 ABG pCO2 112.2 H* Cancelled 72.6 H* ABG pO2 74 L Cancelled 106 H José Miguel Test Positive Cancelled N/A Respiration Rate Cancelled 14 O2 Delivery Device Cannula Cancelled BiPAP Liter Flow Cancelled Minute Volume Cancelled Vent Mode Not entered Cancelled Not entered Inspiratory Time Cancelled Expiratory Time Cancelled Tidal Volume Cancelled 500.0 Mean Airway Pressure Cancelled POC PEEP Cancelled 12 Peak Inspir Pressure Cancelled POC Pressure Suppt Cancelled Pressure Control Cancelled Pressure High Cancelled Pressure Low Cancelled Time High Cancelled Time Low Cancelled EPAP Cancelled IPAP Cancelled Blood Gas Comments Cancelled Crit Call To/Read Back Yes Cancelled Yes Blood Gas Notified Whom butler Cancelled ICU physician Blood Gas Notified Time 13:26:02 Cancelled 21:37:31 Clinical Comments Cancelled Imaging Radiology Impression Brain CT 01/18/24 12:51 IMPRESSION: Normal unenhanced CT scan of the brain. 1.2 cm polyp or retention cyst in the inferior medial wall of the right maxillary sinus. Electronically Signed: David Conner MD at 14:59 EDT , Chest X-Ray 01/18/24 13:55 IMPRESSION: Vascular congestion. Persistent soft tissue density at the right lung base. Electronically Signed: David Conner MD at 14:57 EDT , Assessment and Plan . Assessment and plan: Assessment and plan: #Acute Respiratory failure, hypercapnic, significantly improved with just NIV #Metabolic encephalopathy, persists after normalizing acid-base disturbance #Acute COPD exacerbation #Pneumonia #Sepsis #ZONIA #Morbid obesity #Non Compliance #CHF #MARISOL #Former smoker Plan -Monitor patient respiratory status and hemodynamics closely in ICU -Patient is high risk for needing invasive mechanical ventilation therefore closely monitoring in ICU -Continue noninvasive mechanical ventilation -Patient tolerating AVAPs at 500/RR14/EPAP12/MinPS15/MaxPS 26 40% FiO2. -Repeat ABG as needed -Noninvasive ventilatory changes depending on ABG and Ventilatory pressures -Duonebs q6hrs -PanCultures including Blood, sputum and urine as indicated -Close monitoring of hemodynamics in ICU -May need to use NICOM -IVF +/- 30ml/Kg bolus - given in ER -IV pressors - Levophed/Vasopressin/Neosynephrine -Solumedrol started -Monitor Lactic acid - normal -IV abx- Levofloxacin -Check for COVID, flu -Check legionella and strep urine antigen -Monitor Renal Function daily -Avoid nephrotoxic medications -IVF if no other contraindications -Renal US -Stevenson catheter to monitor I/O?s -CT head - negative -DVT Px - Lovenox Critical Care Time:50 minutes The entirety of this encounter was done via Telemedicine Physical Exam Const General Appearance: ill appearing HEENT HEENT Narrative: +NIV Neck full ROM Resp no use of accessory muscles Effort and Inspection: prolonged expiratory phase Cardio regular rate Neuro moves all extremities Subjective Subjective Remarkable improvement in blood gases with NIV but she remains confused
--- NOTE | 2024-01-19 14:56 | CASEMGMT ---
LENCHO called patient's daughter Trisha and confirmed the plan is for patient to return to [facility] at discharge. Sheeba Lucio RESIN SHAVER CHADWIKC
[2024-01-19 17:52] LABS: Bedside Glucose 91 mg/dL (74-106)
[2024-01-19] MEDS: traZODone 50 MG Tablet PO (21:49)
[2024-01-19] MEDS: MELATONIN 10 MG TABLET 5 MG PO (21:49)
[2024-01-19] MEDS: Atorvastatin Calcium 20 MG Tablet PO (21:49)
[2024-01-19] MEDS: Famotidine 20 MG Tablet PO (21:49)
[2024-01-19] MEDS: Ondansetron 4 MG/2 ML Vial IV (22:11)
[2024-01-20] VITALS (24 sets, daily range): BP systolic 82–145; BP diastolic 49–100; PULSE 63–85; RESP 14–20; TEMP 36.8–37.5; O2SAT 90–99; BMI 51.7
[2024-01-20] MEDS: Vancomycin Trough/Random Due 1 LAB MC (00:56)
[2024-01-20 01:05] LABS: Bedside Glucose 118 mg/dL (74-106)
[2024-01-20 01:10] LABS: Vancomycin, Trough Level 35.8 ug/mL (5.0-15.0)
--- NOTE | 2024-01-20 01:55 | PCM.RX.CS ---
Consult Antibiotic Management Pharmacy has been consulted to manage selected antibiotic: Vancomycin Type of Intervention Type of Consult: Follow-up Labs Labs: Sodium Cancelled 01/19/24 16:30 Potassium Cancelled 01/19/24 16:30 Chloride Cancelled 01/19/24 16:30 Carbon Dioxide Cancelled 01/19/24 16:30 Anion Gap Cancelled 01/19/24 16:30 BUN Cancelled 01/19/24 16:30 Creatinine Cancelled 01/19/24 16:30 Est GFR (MDRD) Af Amer Cancelled 01/19/24 16:30 Est GFR (MDRD) Non-Af Cancelled 01/19/24 16:30 BUN/Creatinine Ratio Cancelled 01/19/24 16:30 Glucose Cancelled 01/19/24 16:30 Vancomycin Trough 35.8 ug/mL (5.0-15.0) H 01/20/24 00:45 Microbiology Microbiology: Microbiology 01/18/24 13:35 Urine, Catheterized Urine Culture - Preliminary Culture exhibits no growth. 01/18/24 18:57 Mucosa - Nasopharyngeal Respiratory Panel (PCR) - Final 01/18/24 17:25 Urine Catheter - Stevenson Legionella Antigen - Final 01/18/24 17:25 Urine Catheter - Stevenson Streptococcus pneumoniae Antigen (M - Final 01/18/24 13:03 Mucosa - Nose SARS-CoV-2, Influenza & RSV (PCR) - Final Dosing Weight Weight used for dosin kg Estimated Creatinine Clearance Estimated Creatinine Clearance: 103 Goal Trough Goal Trough: 15-20 mcg/mL Pharmacy Plan for Drug Dosing Pharmacy Plan for Drug Dosing: Vancomycin trough level, drawn 9hrs post-dose, was high at 35.8. Current dosing has been suspended. A random vancomycin level will be drawn in 12 hours and further dosing determined from that result. Pharmacy Service will continue to monitor and adjust dosing as required. Follow-Up Labs Follow-Up Labs: Trough: Vancomycin (random) Date/Time Labs Ordered Labs to be done on [date and time ordered]: 01/20/24 @1300 random
[2024-01-20] MEDS: Nystatin Powder 15gm Bottle 1 APPLIC TOPICAL ×3 (05:26→21:05)
[2024-01-20] MEDS: 0.9 % NaCl (Sterile) Posiflush 10 mL IV (05:27)
[2024-01-20 05:40] LABS: Absolute Lymphocyte Count 0.78 X10^3/uL (0.83-4.51); Absolute Neutrophil Count 4.5 X10^3/uL (2.0-7.7); Basophil# 0.01 X10^3/uL; Basophil% 0.2 % (0-1); Hematocrit 29.8 % (37-47); Hemoglobin 8.5 g/dL (12.0-15.0); Lymphocyte # 0.78 X10^3/ul (0.83-4.51); Lymphocyte % 14.2 % (19-41); Mean Corp Hgb Conc 28.5 g/dL (32-36); Mean Corpuscular Hgb 25.4 pg (27.0-32.0); Mean Platelet Vol. 12.1 fl (6.2-12.0); Monocyte# 0.13 X10^3/uL; Monocyte% 2.4 % (0-10); NRBC Flagged by Analyzer 0 % (0-5); Neutrophil # 4.52 X10^3/uL (2.7-7.7); Neutrophil % 82.1 % (47-70); Platelet Count 180 K/mm3 (150-450); RBC Distribution Width CV 15.6 % (11.6-14.6); RBC Distribution Width SD 49.9 fl (35.1-43.9); Red Blood Count 3.35 M/mm3 (4.2-5.4); White Blood Count 5.5 K/mm3 (4.4-11.0)
[2024-01-20 05:50] LABS: Bedside Glucose 156 mg/dL (74-106)
[2024-01-20 06:12] LABS: ALB/GLOB Ratio 0.8 RATIO (0.9-2.4); AST(SGOT) 7 U/L (15-37); Alanine Aminotransfer ALT/SGPT 11 U/L (13-56); Albumin, Serum 2.5 g/dL (3.2-5.0); Alkaline Phosphatase 62 U/L (45-117); Anion Gap 2 (5-15); BUN 26 mg/dL (7-18); BUN/Creat Ratio 30.1 RATIO (10-20); Calcium,Total 10.1 mg/dL (8.5-10.1); Chloride 99 mmol/L (98-107); Creatinine, Serum 0.86 mg/dL (0.55-1.02); EST Glomerular Filtration Rate 71 mL/min (>60); Est Glom Filt Rate - Afr Amer 86 mL/min (>60); Estimated Creatinine Clearance 103.78 ml/min; Globulin 3.3 g/dL (2.2-4.2); Glucose 169 mg/dL (74-106); Phosphorus 3.2 mg/dL (2.5-4.9); Potassium 4.8 mmol/L (3.5-5.1); Protein, Total 5.8 g/dL (6.4-8.2); Sodium Level 138 mmol/L (136-145)
[2024-01-20] MEDS: Ipratropium/Albuterol Sulfate 3 ML AMPUL.NEB INHALATION ×4 (07:12→20:30)
--- NOTE | 2024-01-20 08:28 | PN.CC_ITS ---
Objective Data Objective Data Vital Signs: Vital Signs Last response 3 Temperature 36.9 C 01/20/24 05:00 Temperature Source Core 01/20/24 05:00 Pulse Rate 67 01/20/24 07:13 Respiratory Rate 16 01/20/24 07:13 Respiratory Effort Normal, Short of Breath 01/20/24 04:00 Respiratory Depth Normal 01/20/24 04:00 Respiratory Pattern Normal 01/20/24 07:13 Blood Pressure 101/53 L 01/20/24 06:00 Blood Pressure Mean 69 01/20/24 06:00 Blood Pressure Source Monitor 01/20/24 06:00 Blood Pressure Position Semi-Fowlers 01/19/24 17:00 Blood Pressure Location Left Arm 01/19/24 17:00 Pulse Ox 96 01/20/24 07:13 Oxygen Delivery Method Nasal Cannula 01/20/24 07:13 Oxygen Flow Rate (L/min) 3 01/20/24 07:13 Fraction of Inspired Oxygen (FIO2) 30 01/20/24 02:00 I&O: I&O Last 24 Hours 3 01/19/24 01/19/24 01/20/24 11:59 23:59 11:59 Intake Total 853.45 / 1913.45 1060 / 1913.45 Output Total 425 / 575 150 / 575 350 / 350 Balance 428.45 / 1338.45 910 / 1338.45 -350 / -350 I&O: Total Stay 3 01/18/24 12:24 thru 01/20/24 05:38 Intake Total 5126.90 Output Total 1275 Balance 3851.90 Current Meds Ordered / Administered: Current meds ordered / Administered 3 Generic Name Dose Route Start Last Admin Trade Name Freq PRN Reason Stop Dose Admin Acetaminophen 650 mg 01/18/24 17:28 Acetaminophen 325 Mg Tablet PO Q6H PRN PRN Pain 1-10 Or Fever >100.7 Al Hydroxide/Mg Hydroxide 30 ml 01/19/24 06:38 Mag Hydrox/Al Hydrox/Simeth 30 Ml Udc PO Q4H PRN PRN Gastric Burning Albuterol Sulfate 2.5 mg 01/18/24 17:28 Albuterol 2.5 Mg/3 Ml Vial.Neb. INHALATION Q2H PRN PRN SOB &/OR WHEEZING Albuterol/Ipratropium 3 ml 01/18/24 17:28 01/20/24 07:12 Ipratropium/Albuterol Sulfate 3 Ml Ampul.Neb INHALATION 3 ml Q4HWA.RT MARY Administration Amitriptyline HCl 25 mg 01/20/24 22:00 Amitriptyline 25 Mg Tablet PO QODAY@2200 MARY Atorvastatin Calcium 20 mg 01/19/24 22:00 01/19/24 21:49 Atorvastatin Calcium 20 Mg Tablet PO 20 mg QHS MARY Administration Buspirone HCl 5 mg 01/19/24 10:00 01/19/24 21:49 Buspirone 5 Mg Tablet PO 5 mg BID MARY Administration Dicyclomine HCl 10 mg 01/19/24 10:00 01/19/24 21:49 Dicyclomine 10 Mg Capsule PO 10 mg 4X/DAY MARY Administration Enoxaparin Sodium 40 mg 01/18/24 22:00 01/19/24 21:49 Enoxaparin 40 Mg/0.4 Ml Syringe SC 40 mg BID MARY Administration Famotidine 20 mg 01/19/24 22:00 01/19/24 21:49 Famotidine 20 Mg Tablet PO 20 mg QHS MARY Administration Gabapentin 200 mg 01/19/24 10:00 01/19/24 21:49 Gabapentin 100 Mg Capsule PO 200 mg BID MARY Administration Glucagon 1 mg 01/18/24 17:28 Glucagon 1 Mg/Ml Syringe IM X1 PRN HYPOGLYCEMIA Protocol Guaifenesin 10 ml 01/19/24 06:38 Guaifenesin 10 Ml Udc (200mg/10ml) PO Q4H PRN PRN cough Norepinephrine Bitartrate 8 mg 250 mls @ 9.375 mls/hr 01/18/24 15:05 01/19/24 17:26 / Sodium Chloride CONT INF Not Given .[id number] MARY Protocol 5 MCG/MIN Dextrose 250 mls @ 0 mls/hr 01/18/24 17:28 Dextrose 10%-Water IV .Q0M PRN HYPOGLYCEMIA Protocol As Directed Levofloxacin 750 mg in 150 mls @ 100 mls/hr 01/19/24 10:00 01/19/24 11:05 Levaquin Iv IV Infused Q24 MARY Infusion Sodium Chloride 100 mls @ 15 mls/hr 01/18/24 17:38 IV .Q6H40M PRN Saline Flush Sodium Chloride 100 mls @ 15 mls/hr 01/18/24 17:38 IV .Q6H40M PRN Additional IVPB Infusion Vancomycin IV-PHARMACY TO DOSE 500 mls @ 250 mls/hr 01/18/24 22:03 1 each/ Sodium Chloride IV PRN PRN Rx to Dose Protocol Insulin Human Lispro 0 unit 01/18/24 18:00 01/20/24 05:26 Insulin Lispro 100 Unit/Ml Insuln.Pen SC Not Given Q6 MARY Protocol Melatonin 5 mg 01/19/24 22:00 01/19/24 21:49 Melatonin 10 Mg Tablet PO 5 mg QHS MARY Administration Methylprednisolone 40 mg 01/18/24 22:00 01/20/24 05:26 Methylprednisolone 40 Mg/Ml Vial IV 40 mg Q8 MARY Administration Midodrine 10 mg 01/19/24 08:00 01/19/24 17:29 Midodrine Hcl 5 Mg Tablet PO 10 mg TIDCM MARY Administration Montelukast Sodium 10 mg 01/19/24 10:00 01/19/24 08:15 Montelukast 10 Mg Tablet PO 10 mg DAILY MARY Administration Nystatin 1 applic 01/19/24 07:45 01/20/24 05:26 Nystatin Powder 15gm Bottle TOPICAL 1 applic TID MARY Administration Protocol Ondansetron HCl 4 mg 01/18/24 17:28 01/19/24 22:11 Ondansetron 4 Mg/2 Ml Vial IV 4 mg Q8H PRN PRN Administration NAUSEA/VOMITING Pantoprazole Sodium 20 mg 01/19/24 10:00 01/19/24 08:18 Pantoprazole Sodium 20 Mg Tablet PO 20 mg DAILY MARY Administration Senna/Docusate Sodium 2 tablet 01/18/24 17:28 Senna/Docusate Sodium 1 Tablet PO BID PRN PRN Constipation Sertraline HCl 150 mg 01/19/24 10:00 01/19/24 08:17 Sertraline 50 Mg Tablet PO 150 mg DAILY MARY Administration Sodium Chloride 10 - 40 ml 01/18/24 17:38 01/20/24 05:27 0.9 % Nacl (Sterile) Posiflush 10 Ml IV 20 ml UD PRN Administration Port access or dressing change Sodium Chloride 10 - 40 ml 01/18/24 17:38 0.9% Saline Lock 10 Ml Syringe IV UD PRN Multilumen/[place] Flush Sodium Chloride 10 - 40 ml 01/18/24 17:38 0.9% Saline Lock 10 Ml Syringe IV UD PRN SALINE FLUSH Topiramate 25 mg 01/19/24 10:00 01/19/24 08:18 Topiramate 25 Mg Tablet PO 25 mg DAILY MARY Administration Trazodone HCl 50 mg 01/19/24 22:00 01/19/24 21:49 Trazodone 50 Mg Tablet PO 50 mg QHS MARY Administration Vancomycin Protocol 1 lab 01/20/24 11:00 Vancomycin Trough/Random Due [facility] 01/20/24 15:00 DAILY [facility] Lab / Micro Data Attestation: I reviewed the patient's lab results. 01/20/24 05:20 01/20/24 05:20 Labs: Laboratory Results - last 24 hr 01/19/24 11:17: POC Glucose 140 H 01/19/24 16:30: Sodium Cancelled, Potassium Cancelled, Chloride Cancelled, Carbon Dioxide Cancelled, Anion Gap Cancelled, BUN Cancelled, Creatinine Cancelled, Estim Creat Clear Calc Cancelled, Est GFR (MDRD) Af Amer Cancelled, Est GFR (MDRD) Non-Af Cancelled, BUN/Creatinine Ratio Cancelled, Glucose Cancelled, Calcium Cancelled 01/19/24 17:31: POC Glucose 91 01/20/24 00:45: Vancomycin Trough 35.8 H 01/20/24 00:47: POC Glucose 118 H 01/20/24 05:20: WBC 5.5, RBC 3.35 L, Hgb 8.5 L, Hct 29.8 L, MCV 89.0, MCH 25.4 L , MCHC 28.5 L, RDW Std Deviation 49.9 H, RDW Coeff of David 15.6 H, Plt Count 180, MPV 12.1 H, Immature Gran % (Auto) 1.100 H, Neut % (Auto) 82.1 H, Lymph % (Auto) 14.2 L, [place] % (Auto) 2.4, Eos % (Auto) 0.0, Baso % (Auto) 0.2, Absolute Neuts (auto) 4.5, Absolute Lymphs (auto) 0.78 L, Nucleated RBC % 0, Sodium 138, Potassium 4.8, Chloride 99, Carbon Dioxide 38.0 H, Anion Gap 2 L, BUN 26 H, Creatinine 0.86, Estim Creat Clear Calc 103.78, Est GFR (MDRD) Af Amer 86, Est GFR (MDRD) Non-Af 71, BUN/Creatinine Ratio 30.1 H, Glucose 169 H, Calcium 10.1, Phosphorus 3.2, Magnesium 2.0, Total Bilirubin 0.30, AST 7 L, ALT 11 L, Alkaline Phosphatase 62, Total Protein 5.8 L, Albumin 2.5 L, Globulin 3.3, A lbumin/Globulin Ratio 0.8 L 01/20/24 05:24: POC Glucose 156 H Micro: Microbiology 01/18/24 14:15 Blood Culture (Wb) - Left Hand Blood Culture - Preliminary No growth in 48 hours. 01/18/24 13:35 Urine, Catheterized Urine Culture - Preliminary Culture exhibits no growth. Assessment and Plan . Assessment and plan: Assessment: #Acute on chronic hypercapneic respiratory failure, - multifactorial with suspected components of AECOPD as well as OHS physiology - significantly improved with just NIV, now on simple NC O2 #Metabolic encephalopathy, improving #Acute COPD exacerbation #Pneumonia? - has chronic RLL volume loss/ atelectasis - cultures unrevealing #ZONIA, resolving #Morbid obesity #Non Compliance #CHF #MARISOL #Former smoker Plan - taper COPD Rx - complete course of Abx- vanc dosing per Pharmacy - wean O2 - same diuretic plan - following - august transfer to lower level of care Critical Care Time:50 minutes The entirety of this encounter was done via Telemedicine Physical Exam Const General Appearance: lethargic HEENT normocephalic Neck no JVD Resp normal respiratory effort Auscultation: diminished lung sounds Cardio regular rate and regular rhythm Subjective Subjective Sleeping soundly, no issues raised overnight. Oxygen needs are modest. Confusional state improving per report.
[2024-01-20] MEDS: Midodrine HCl 5 MG Tablet 10 MG PO ×3 (10:02→16:50)
[2024-01-20] MEDS: Pantoprazole Sodium 20 MG Tablet PO (10:02)
[2024-01-20] MEDS: Dicyclomine 10 MG Capsule PO ×4 (10:02→21:02)
[2024-01-20] MEDS: Sertraline 50 MG Tablet 150 MG PO (10:03)
[2024-01-20] MEDS: Montelukast 10 MG Tablet PO (10:03)
[2024-01-20] MEDS: Topiramate 25 MG Tablet PO (10:03)
[2024-01-20] MEDS: busPIRone 5 MG Tablet PO ×2 (10:03→21:02)
[2024-01-20] MEDS: Enoxaparin 40 MG/0.4 ML Syringe SC ×2 (10:04→21:04)
[2024-01-20] MEDS: levoFLOXacin IV 750 MG/150 ML BAG 150 MG IV (10:07)
[2024-01-20] MEDS: Gabapentin 100 MG Capsule 200 MG PO ×2 (10:07→21:05)
--- NOTE | 2024-01-20 12:54 | PCM.PN.HOSP ---
Reason for Visit Reason for Visit: Altered mental status Subjective Subjective Patient is now awake and alert and oriented x 3. Blood pressures are much better and patient is off pressors for 24 hours. States that she did not have her BiPAP at the nursing facility recently because it was broken. No complaints today. We were able to remove her radial art line and right femoral line and have peripherals placed. Objective Data Objective Data Vital Signs: Vital Signs Temp Pulse Resp BP Pulse Ox O2 Del Method O2 Flow Rate 98.8 F 77 20 H 134/59 H 94 Nasal Cannula 3 01/20/24 12:00 01/20/24 12:00 01/20/24 12:00 01/20/24 12:00 01/20/24 12:00 01/20/24 12:00 01/20/24 12:00 FiO2 30 01/20/24 02:00 Oxygen Flow Rate (L/min) 3 Oxygen Delivery Method Nasal Cannula Weight: 149.912 kg Body Mass Index (BMI) 51.7 Intake & Output: Intake and Output for Last 24 Hours 01/18/24 01/19/24 01/20/24 23:59 23:59 23:59 Intake Total 3213.45 / 3222.85 1913.45 / 1913.45 150 / 150 Output Total 350 / 350 575 / 575 350 / 350 Balance 2863.45 / 2872.85 1338.45 / 1338.45 -200 / -200 Lab / Micro Data 01/20/24 05:20 01/20/24 05:20 Labs: Laboratory Results - last 24 hr 01/19/24 16:30: Sodium Cancelled, Potassium Cancelled, Chloride Cancelled, Carbon Dioxide Cancelled, Anion Gap Cancelled, BUN Cancelled, Creatinine Cancelled, Estim Creat Clear Calc Cancelled, Est GFR (MDRD) Af Amer Cancelled, Est GFR (MDRD) Non-Af Cancelled, BUN/Creatinine Ratio Cancelled, Glucose Cancelled, Calcium Cancelled 01/19/24 17:31: POC Glucose 91 01/20/24 00:45: Vancomycin Trough 35.8 H 01/20/24 00:47: POC Glucose 118 H 01/20/24 05:20: WBC 5.5, RBC 3.35 L, Hgb 8.5 L, Hct 29.8 L, MCV 89.0, MCH 25.4 L, MCHC 28.5 L, RDW Std Deviation 49.9 H, RDW Coeff of David 15.6 H, Plt Count 180, MPV 12.1 H, Immature Gran % (Auto) 1.100 H, Neut % (Auto) 82.1 H, Lymph % (Auto) 14.2 L, [place] % (Auto) 2.4, Eos % (Auto) 0.0, Baso % (Auto) 0.2, Absolute Neuts (auto) 4.5, Absolute Lymphs (auto) 0.78 L, Nucleated RBC % 0, Sodium 138, Potassium 4.8, Chloride 99, Carbon Dioxide 38.0 H, Anion Gap 2 L, BUN 26 H, Creatinine 0.86, Estim Creat Clear Calc 103.78, Est GFR (MDRD) Af Amer 86, Est GFR (MDRD) Non-Af 71, BUN/Creatinine Ratio 30.1 H, Glucose 169 H, Calcium 10.1, Phosphorus 3.2, Magnesium 2.0, Total Bilirubin 0.30, AST 7 L, ALT 11 L, Alkaline Phosphatase 62, Total Protein 5.8 L, Albumin 2.5 L, Globulin 3.3, Albumin/Globulin Ratio 0.8 L 01/20/24 05:24: POC Glucose 156 H Micro: Microbiology 01/18/24 14:15 Blood Culture (Wb) - Left Hand Blood Culture - Preliminary No growth in 48 hours. 01/18/24 13:35 Urine, Catheterized Urine Culture - Preliminary Culture exhibits no growth. 01/18/24 18:57 Mucosa - Nasopharyngeal Respiratory Panel (PCR) - Final 01/18/24 17:25 Urine Catheter - Stevenson Legionella Antigen - Final 01/18/24 17:25 Urine Catheter - Stevensno Streptococcus pneumoniae Antigen (M - Final 01/18/24 13:03 Mucosa - Nose SARS-CoV-2, Influenza & RSV (PCR) - Final Physical Exam Const alert, oriented x3, no apparent distress and well nourished; Negative for average body habitus or healthy appearing Constitutional Narrative: Super morbidly obese, white female, sitting up in bed, nursing at bedside, appears comfortable, no longer appears toxic, much improved overall HEENT head/scalp atraumatic and moist oral mucous membranes HEENT Narrative: Mallampati 4, no thrush Head and Scalp: normocephalic Eyes PERRL, EOMs intact bilaterally and conjunctivae normal Eyes Narrative: No scleral icterus Neck no lymphadenopathy and supple Neck Narrative: Large thick neck, trachea midline, excessive soft tissue and thyroid not palpable Resp normal respiratory effort, no retractions, no use of accessory muscles and clear to auscultation bilaterally Resp Narrative: Exceedingly distant breath sounds due to body habitus but no adventitious sounds appreciated, on 2 L nasal cannula appears comfortable Auscultation: Negative for rales, rhonchi or wheezes Cardio regular rate, regular rhythm, S1 normal heart sound, S2 normal heart sound, no murmurs, no rub, no gallops and no clicks GI normal to inspection, nondistended, normoactive bowel sounds, soft to palpation and non-tender GI Narrative: Large protuberant abdomen, small umbilical hernia noted Extremity no clubbing, cyanosis or edema Extremity Narrative: Pedal pulses and radial pulses are 2+ Skin skin turgor normal, no jaundice, no petechiae and no mottling Skin Narrative: Areas of cutaneous candidiasis noted, skin is pale Neuro oriented x3, moves all extremities and no focal motor deficits Sensorium / Orientation: awake, alert, oriented to person, oriented to place and oriented to time Speech: speech normal Psych affect normal Psych Narrative: Interacts appropriately, answers questions Assessment & Plan Assessment/Plan (1) Altered mental status: (2) Acute on chronic respiratory failure with hypoxia and hypercapnia: (3) Septic shock: PLAN: Plan Acute on chronic hypoxic and hypercapnic respiratory failure -Possible healthcare acquired pneumonia/noncompliance with BiPAP at nursing facility -Patient reported that she had not been wearing her BiPAP recently at the longterm because it broke -Baseline pCO2 appears to be between 75 and 80--> 126.3 on ABG at admission -Continue nocturnal BiPAP and BiPAP with naps -Patient must have availability to working BiPAP at the longterm -Scheduled and as needed nebulizers -I-S and Acapella once off BiPAP -Continue Solu-Medrol but decrease from every 8 to every 12 -Start p.o. diet -Pulm/critical care medicine following-appreciate input Septic shock -Shock has resolved and patient has been off pressors for 24 hours -Sputum culture unable to be obtained, blood and urine cultures are negative -MRSA PCR is negative so we will discontinue vancomycin and continue Levaquin for total of a 7-day course--> day 3 of 7 -Patient did receive appropriate fluid boluses on admission -Continue midodrine 10 mg p.o. 3 times daily and wean as pressures improve then will be able to restart home antihypertensives and diuretics Toxic/metabolic encephalopathy -Resolved ZONIA -Resolved Hypomagnesemia - resolved Generalized weakness/debility -PT/OT to evaluate now that she is appropriate -Case management/social work consultation for assistance with discharge planning Chronic anemia -Baseline hemoglobin appears to be between 9 and 10 -Current hemoglobin 8.5 -Will monitor Hyperglycemia -Patient does have a history of insulin resistance however most recent hemoglobin A1c from 11/24/2023 was 5.5 -Transition subcu insulin from every 6 to 3 times daily now that she is eating Essential hypertension/hyperlipidemia -Restart Lasix once blood pressure remains stable and able to wean midodrine -Continue home atorvastatin -Restart losartan once blood pressure remains stable and able to wean midodrine Vitamin D deficiency -Restart cholecalciferol at discharge Irritable bowel syndrome -Continue home dicyclomine History of constipation -As needed medication available Chronic pain/fibromyalgia -Continue home medications History of GERD/peptic ulcer disease -Continue home famotidine History of TIA -Patient is not on any antiplatelet therapy -Reason is unclear however may be related to previous peptic ulcer disease MARISOL/obesity hypoventilation syndrome -Will need to continue BiPAP with naps and nocturnally after continuous needs have abated -Must have access to this or will have repeat admissions for hypercapnia Super morbid obesity -Complicates treatment, prognosis, outcomes -Increases risk for intubation History of tobacco abuse -Suspect COPD but no formal testing has been performed -Continue aerosols as ordered DVT prophylaxis -40 Lovenox SQ twice daily -CODE STATUS -Full code per paperwork from nursing facility Disposition: -Plan is for discharge back to nursing facility probably in the next 24 to 72 hours as she is much more medically stable Charges/Coding Visit Charges Inpatient E&M: 35391 Subs Hosp L3
[2024-01-20 12:58] LABS: M R Staph aureus DNA By PCR POSITIVE (Negative); Probe Check PASS
[2024-01-20 13:02] LABS: Bedside Glucose 146 mg/dL (74-106)
[2024-01-20 13:07] LABS: Vancomycin, Random Level 23.9 ug/mL (0.0-15.0)
--- NOTE | 2024-01-20 14:30 | PCM.RX.CS ---
Consult Antibiotic Management Pharmacy has been consulted to manage selected antibiotic: Vancomycin Type of Intervention Type of Consult: Follow-up Labs Labs: Sodium 138 mmol/L (136-145) 01/20/24 05:20 Potassium 4.8 mmol/L (3.5-5.1) 01/20/24 05:20 Chloride 99 mmol/L (98-107) 01/20/24 05:20 Carbon Dioxide 38.0 mmol/L (21.0-32.0) H 01/20/24 05:20 Anion Gap 2 (5-15) L 01/20/24 05:20 BUN 26 mg/dL (7-18) H 01/20/24 05:20 Creatinine 0.86 mg/dL (0.55-1.02) 01/20/24 05:20 Est GFR (MDRD) Af Amer 86 mL/min (>60) 01/20/24 05:20 Est GFR (MDRD) Non-Af 71 mL/min (>60) 01/20/24 05:20 BUN/Creatinine Ratio 30.1 RATIO (10-20) H 01/20/24 05:20 Glucose 169 mg/dL (74-106) H 01/20/24 05:20 Vancomycin Trough 35.8 ug/mL (5.0-15.0) H 01/20/24 00:45 Random Vancomycin 23.9 ug/mL (0.0-15.0) H 01/20/24 12:40 Microbiology Microbiology: Microbiology 01/18/24 14:15 Blood Culture (Wb) - Left Hand Blood Culture - Preliminary No growth in 48 hours. 01/18/24 13:35 Urine, Catheterized Urine Culture - Preliminary Culture exhibits no growth. 01/18/24 18:57 Mucosa - Nasopharyngeal Respiratory Panel (PCR) - Final 01/18/24 17:25 Urine Catheter - Stevenson Legionella Antigen - Final 01/18/24 17:25 Urine Catheter - Stevenson Streptococcus pneumoniae Antigen (M - Final 01/18/24 13:03 Mucosa - Nose SARS-CoV-2, Influenza & RSV (PCR) - Final Pharmacy Plan for Drug Dosing Pharmacy Plan for Drug Dosing: VANCOMYCIN LEVEL RECEIVED Current Vancomycin Dose: held due to high trough Number of Doses Received: 3 Vancomycin Level: 23.9 mg/dl Hours Since Last Dose: 21 Renal Function: SCr 0.86 mg/dL, CrCl 103 mL/min Renal Function Trend: stable Vancomycin Plan/Comments: 21 hour random level is still supratherapeutic (goal 15-20). Will continue to hold dosing and get a random level in 6 hours. Level came down ~12 in 12 hour time frame, in 6 hours should be therapeutic. Pending Level: 01/20/24 @ 3540 Pharmacy Service will continue to monitor and adjust dosing as required.
[2024-01-20 18:55] LABS: Bedside Glucose 99 mg/dL (74-106)
[2024-01-20 20:08] LABS: Vancomycin, Random Level 22.3 ug/mL (0.0-15.0)
--- NOTE | 2024-01-20 20:15 | PCM.RX.CS ---
Consult Antibiotic Management Pharmacy has been consulted to manage selected antibiotic: Vancomycin Type of Intervention Type of Consult: Follow-up Labs Labs: Sodium 138 mmol/L (136-145) 01/20/24 05:20 Potassium 4.8 mmol/L (3.5-5.1) 01/20/24 05:20 Chloride 99 mmol/L (98-107) 01/20/24 05:20 Carbon Dioxide 38.0 mmol/L (21.0-32.0) H 01/20/24 05:20 Anion Gap 2 (5-15) L 01/20/24 05:20 BUN 26 mg/dL (7-18) H 01/20/24 05:20 Creatinine 0.86 mg/dL (0.55-1.02) 01/20/24 05:20 Est GFR (MDRD) Af Amer 86 mL/min (>60) 01/20/24 05:20 Est GFR (MDRD) Non-Af 71 mL/min (>60) 01/20/24 05:20 BUN/Creatinine Ratio 30.1 RATIO (10-20) H 01/20/24 05:20 Glucose 169 mg/dL (74-106) H 01/20/24 05:20 Vancomycin Trough 35.8 ug/mL (5.0-15.0) H 01/20/24 00:45 Random Vancomycin 22.3 ug/mL (0.0-15.0) H 01/20/24 19:43 Microbiology Microbiology: Microbiology 01/18/24 13:35 Urine, Catheterized Urine Culture - Final Culture exhibits no growth. 01/18/24 14:15 Blood Culture (Wb) - Left Hand Blood Culture - Preliminary No growth in 48 hours. 01/18/24 18:57 Mucosa - Nasopharyngeal Respiratory Panel (PCR) - Final 01/18/24 17:25 Urine Catheter - Stevenson Legionella Antigen - Final 01/18/24 17:25 Urine Catheter - [place] Streptococcus pneumoniae Antigen (M - Final 01/18/24 13:03 Mucosa - Nose SARS-CoV-2, Influenza & RSV (PCR) - Final Dosing Weight Weight used for dosin kg Estimated Creatinine Clearance Estimated Creatinine Clearance: 104 Goal Trough Goal Trough: 15-20 mcg/mL Pharmacy Plan for Drug Dosing Pharmacy Plan for Drug Dosing: Vancomycin level continues to be supratherapeutic -- random level drawn 28hrs post last dose was still 22.3. Will continue holding dosing, and will draw another random vanco level in 12 hours. Pharmacy Service will continue to monitor and adjust dosing as required. Follow-Up Labs Follow-Up Labs: Trough: Vancomycin (random) Date/Time Labs Ordered Labs to be done on [date and time ordered]: 01/21/24 @0800 random
[2024-01-20] MEDS: Amitriptyline 25 MG Tablet PO (21:03)
[2024-01-20] MEDS: Atorvastatin Calcium 20 MG Tablet PO (21:04)
[2024-01-20] MEDS: Famotidine 20 MG Tablet PO (21:06)
[2024-01-20] MEDS: guaiFENesin 10 ML UDC (200MG/10ML) PO (21:07)
[2024-01-20] MEDS: MELATONIN 10 MG TABLET 5 MG PO (21:11)
[2024-01-20] MEDS: traZODone 50 MG Tablet PO (21:11)
[2024-01-21] VITALS (9 sets, daily range): BP systolic 96–129; BP diastolic 56–63; PULSE 71–85; RESP 16–20; TEMP 36.7–36.9; O2SAT 93–98; BMI 51.7
[2024-01-21] MEDS: Nystatin Powder 15gm Bottle 1 APPLIC TOPICAL ×3 (06:22→21:14)
[2024-01-21] MEDS: Insulin Lispro 100 UNIT/ML INSULN.PEN SC (06:30)
[2024-01-21 06:48] LABS: Absolute Lymphocyte Count 0.75 X10^3/uL (0.83-4.51); Absolute Neutrophil Count 4.7 X10^3/uL (2.0-7.7); Basophil# 0.01 X10^3/uL; Basophil% 0.2 % (0-1); Eosinophil# 0.01 X10^3/uL; Eosinophils% 0.2 % (0-5); Hematocrit 30.1 % (37-47); Hemoglobin 8.6 g/dL (12.0-15.0); Lymphocyte # 0.75 X10^3/ul (0.83-4.51); Lymphocyte % 13.1 % (19-41); Mean Corp Hgb Conc 28.6 g/dL (32-36); Mean Corpuscular Hgb 25.4 pg (27.0-32.0); Mean Corpuscular Volume 88.8 fL (81-99); Mean Platelet Vol. 12.2 fl (6.2-12.0); Monocyte# 0.24 X10^3/uL; Monocyte% 4.2 % (0-10); NRBC Flagged by Analyzer 0 % (0-5); Neutrophil # 4.66 X10^3/uL (2.7-7.7); Neutrophil % 81.6 % (47-70); Platelet Count 171 K/mm3 (150-450); RBC Distribution Width CV 15.6 % (11.6-14.6); RBC Distribution Width SD 49.5 fl (35.1-43.9); Red Blood Count 3.39 M/mm3 (4.2-5.4); White Blood Count 5.7 K/mm3 (4.4-11.0)
[2024-01-21 07:55] LABS: Anion Gap 2 (5-15); BUN 21 mg/dL (7-18); BUN/Creat Ratio 32.5 RATIO (10-20); Chloride 103 mmol/L (98-107); Creatinine, Serum 0.65 mg/dL (0.55-1.02); EST Glomerular Filtration Rate 99 mL/min (>60); Est Glom Filt Rate - Afr Amer 120 mL/min (>60); Estimated Creatinine Clearance 137.31 ml/min; Glucose 149 mg/dL (74-106); Potassium 4.4 mmol/L (3.5-5.1); Sodium Level 142 mmol/L (136-145)
[2024-01-21 08:38] LABS: Bedside Glucose 151 mg/dL (74-106)
[2024-01-21 08:43] LABS: Vancomycin, Random Level 14.6 ug/mL (0.0-15.0)
--- NOTE | 2024-01-21 09:04 | PCM.RX.CS ---
Consult Antibiotic Management Pharmacy has been consulted to manage selected antibiotic: Vancomycin Type of Intervention Type of Consult: Follow-up Suspected Infection Suspected Infection: Sepsis Prior Doses of Antibiotics Prior Doses of Antibiotics Received/Current Regimen: Vancomycin 1500 mg IV given 01/18 @ 1550 Labs Labs: Sodium 142 mmol/L (136-145) 01/21/24 05:42 Potassium 4.4 mmol/L (3.5-5.1) 01/21/24 05:42 Chloride 103 mmol/L (98-107) 01/21/24 05:42 Carbon Dioxide 36.0 mmol/L (21.0-32.0) H 01/21/24 05:42 Anion Gap 2 (5-15) L 01/21/24 05:42 BUN 21 mg/dL (7-18) H 01/21/24 05:42 Creatinine 0.65 mg/dL (0.55-1.02) 01/21/24 05:42 Est GFR (MDRD) Af Amer 120 mL/min (>60) 01/21/24 05:42 Est GFR (MDRD) Non-Af 99 mL/min (>60) 01/21/24 05:42 BUN/Creatinine Ratio 32.5 RATIO (10-20) H 01/21/24 05:42 Glucose 149 mg/dL (74-106) H 01/21/24 05:42 Vancomycin Trough 35.8 ug/mL (5.0-15.0) H 01/20/24 00:45 Random Vancomycin 14.6 ug/mL (0.0-15.0) 01/21/24 08:00 Microbiology Microbiology: Microbiology 01/18/24 13:35 Urine, Catheterized Urine Culture - Final Culture exhibits no growth. 01/18/24 14:15 Blood Culture (Wb) - Left Hand Blood Culture - Preliminary No growth in 48 hours. 01/18/24 18:57 Mucosa - Nasopharyngeal Respiratory Panel (PCR) - Final 01/18/24 17:25 Urine Catheter - Stevenson Legionella Antigen - Final 01/18/24 17:25 Urine Catheter - Stevenson Streptococcus pneumoniae Antigen (M - Final 01/18/24 13:03 Mucosa - Nose SARS-CoV-2, Influenza & RSV (PCR) - Final Dosing Weight Weight used for dosin kg Estimated Creatinine Clearance Estimated Creatinine Clearance: ~ 137 Goal Trough Goal Trough: 15-20 mcg/mL Pharmacy Plan for Drug Dosing Pharmacy Plan for Drug Dosing: Vancomycin random level = 14.6, resume dosing with 1000 mg q12h Pharmacy Service will continue to monitor and adjust dosing as required. Follow-Up Labs Follow-Up Labs: Trough: Vancomycin Date/Time Labs Ordered Labs to be done on [date and time ordered]: 01/22/24 @ 2030
[2024-01-21] MEDS: Enoxaparin 40 MG/0.4 ML Syringe SC ×2 (09:05→21:13)
[2024-01-21] MEDS: levoFLOXacin 750 MG Tablet PO (09:05)
[2024-01-21] MEDS: Sertraline 50 MG Tablet 150 MG PO (09:05)
[2024-01-21] MEDS: Pantoprazole Sodium 20 MG Tablet PO (09:06)
[2024-01-21] MEDS: Midodrine HCl 5 MG Tablet 10 MG PO ×3 (09:06→17:05)
[2024-01-21] MEDS: 0.9% Saline Lock 10 ML Syringe IV (09:06)
[2024-01-21] MEDS: Dicyclomine 10 MG Capsule PO ×4 (09:06→21:11)
[2024-01-21] MEDS: Montelukast 10 MG Tablet PO (09:06)
[2024-01-21] MEDS: Gabapentin 100 MG Capsule 200 MG PO ×2 (09:07→21:12)
[2024-01-21] MEDS: Topiramate 25 MG Tablet PO (09:07)
[2024-01-21] MEDS: Vancomycin IV 1,000 MG/200 ML BAG 200 MG IV ×2 (09:46→21:01)
--- NOTE | 2024-01-21 10:06 | CASEMGMT ---
Discharge Planning Updates sent to [facility] via [employer]. Payal Li DC Planning Asst.
[2024-01-21] MEDS: Ipratropium/Albuterol Sulfate 3 ML AMPUL.NEB INHALATION ×3 (10:36→20:43)
[2024-01-21] MEDS: busPIRone 5 MG Tablet PO ×2 (10:49→21:15)
[2024-01-21 11:13] LABS: Bedside Glucose 99 mg/dL (74-106)
--- NOTE | 2024-01-21 13:46 | CASEMGMT ---
SW did check with [facility]. They have a bipap for patient and it is not broken. Sheeba Lucio [employer] [place]
[2024-01-21 16:32] LABS: Bedside Glucose 114 mg/dL (74-106)
--- NOTE | 2024-01-21 19:03 | PN.HOSP_ITS ---
Reason for Visit Reason for Visit: Diagnoses Sepsis, unspecified organism (01/18/24) Acute respiratory failure with hypoxia (01/18/24) Acute respiratory failure with hypercapnia (01/18/24) Acute and chronic respiratory failure with hypoxia (01/18/24) Acute and chronic respiratory failure with hypercapnia (01/18/24) Altered mental status, unspecified (01/18/24) Severe sepsis with septic shock (01/18/24) Subjective Subjective Patient was seen and examined today, I have verified with social insurance administrator that her nursing facility has BiPAP for the patient to wear, it appears that the patient refuses to wear BiPAP at times. Patient had some diarrhea today, I ordered a C. difficile exam on the patient. Objective Data Objective Data Vital Signs: Vital Signs Temp Pulse Resp BP Pulse Ox O2 Del Method O2 Flow Rate 98.1 F 81 18 129/63 H 96 Nasal Cannula 2 01/21/24 15:11 01/21/24 15:11 01/21/24 15:11 01/21/24 15:11 01/21/24 15:12 01/21/24 15:12 01/21/24 15:12 FiO2 30 01/20/24 02:00 Oxygen Flow Rate (L/min) 2 Oxygen Delivery Method Nasal Cannula Weight: 149.911 kg Body Mass Index (BMI) 51.7 Intake & Output: Intake and Output for Last 24 Hours 01/19/24 01/20/24 01/21/24 23:59 23:59 23:59 Intake Total 1913.45 / 1913.45 150 / 330 560 / 560 Output Total 575 / 575 350 / 850 1800 / 1800 Balance 1338.45 / 1338.45 -200 / -520 -1240 / -1240 Lab / Micro Data 01/21/24 05:42 01/21/24 05:42 Labs: Laboratory Results - last 24 hr 01/20/24 10:45: MRSA (PCR) POSITIVE H 01/20/24 19:43: Random Vancomycin 22.3 H 01/21/24 05:42: WBC 5.7, RBC 3.39 L, Hgb 8.6 L, Hct 30.1 L, MCV 88.8, MCH 25.4 L , MCHC 28.6 L, RDW Std Deviation 49.5 H, RDW Coeff of David 15.6 H, Plt Count 171, MPV 12.2 H, Immature Gran % (Auto) 0.700, Neut % (Auto) 81.6 H, Lymph % (Auto) 13.1 L, Bremer % (Auto) 4.2, Eos % (Auto) 0.2, Baso % (Auto) 0.2, Absolute Neuts (auto) 4.7, Absolute Lymphs (auto) 0.75 L, Nucleated RBC % 0, Sodium 142, Potassium 4.4, Chloride 103, Carbon Dioxide 36.0 H, Anion Gap 2 L, BUN 21 H, Creatinine 0.65, Estim Creat Clear Calc 137.31, Est GFR (MDRD) Af Amer 120, Est GFR (MDRD) Non-Af 99, BUN/Creatinine Ratio 32.5 H, Glucose 149 H, Calcium 10.0 01/21/24 06:25: POC Glucose 151 H 01/21/24 08:00: Random Vancomycin 14.6 01/21/24 10:51: POC Glucose 99 01/21/24 16:02: POC Glucose 114 H Micro: Microbiology 01/18/24 13:35 Urine, Catheterized Urine Culture - Final Culture exhibits no growth. 01/18/24 14:15 Blood Culture (Wb) - Left Hand Blood Culture - Preliminary No growth in 48 hours. 01/18/24 18:57 Mucosa - Nasopharyngeal Respiratory Panel (PCR) - Final 01/18/24 17:25 Urine Catheter - Stevenson Legionella Antigen - Final 01/18/24 17:25 Urine Catheter - Stevenson Streptococcus pneumoniae Antigen (M - Final 01/18/24 13:03 Mucosa - Nose SARS-CoV-2, Influenza & RSV (PCR) - Final Physical Exam Const alert, oriented x3 and no apparent distress Constitutional Narrative: Patient is morbidly obese General Appearance: cooperative and well developed Orientation / Consciousness: awake, oriented to person, oriented to place and oriented to time HEENT normocephalic, head/scalp atraumatic and moist oral mucous membranes Eyes PERRL, EOMs intact bilaterally and conjunctivae normal Neck supple, no JVD, thyroid normal and no carotid bruits General: trachea midline Resp normal respiratory effort, no retractions, no use of accessory muscles and clear to auscultation bilaterally Auscultation: Negative for rales, rhonchi or wheezes Cardio regular rate, regular rhythm, S1 normal heart sound, S2 normal heart sound, no murmurs, no rub and no gallops GI normal to inspection, nondistended, normoactive bowel sounds, soft to palpation, non-tender and non-distended Extremity no clubbing, cyanosis or edema Skin no rashes or lesions noted General Skin Exam: no breakdown Neuro oriented x3, CN's II-XII intact bilaterally, no focal motor deficits and no sensory deficits noted Sensorium / Orientation: awake and alert Speech: speech normal Psych affect normal Assessment & Plan Assessment/Plan (1) Acute respiratory failure with hypoxia and hypercapnia: PLAN: Plan 1. Acute combined respiratory failure with existing chronic hypoxic respiratory failure-patient is currently on nasal cannula oxygen at 2 L, she will wear BiPAP as needed and while sleeping #2 septic shock-patient's blood pressures are stable at this time #3 metabolic encephalopathy-resolved at this time, secondary to combined acute respiratory failure on a backdrop of chronic hypoxic respiratory failure #4 morbid obesity-complicates care, management, recovery, and prognosis #5 obstructive sleep apnea-patient wore BiPAP as needed and while sleeping #6 acute kidney injury-resolved at this time Total clinical time spent by myself addressing the patient's medical issues, reviewing all of her data, and collaborating with patient's care team: 35 minutes Charges/Coding Visit Charges Inpatient E&M: 27579 Subs Hosp L2
[2024-01-21] MEDS: 0.9 % NaCl (Sterile) Posiflush 10 mL IV (21:04)
[2024-01-21] MEDS: MELATONIN 10 MG TABLET 5 MG PO (21:12)
[2024-01-21] MEDS: Atorvastatin Calcium 20 MG Tablet PO (21:13)
[2024-01-21] MEDS: traZODone 50 MG Tablet PO (21:13)
[2024-01-21] MEDS: Famotidine 20 MG Tablet PO (21:14)
[2024-01-22] VITALS (12 sets, daily range): BP systolic 98–129; BP diastolic 59–81; PULSE 66–81; RESP 16–98; TEMP 36.6; O2SAT 86–98; BMI 51.7
[2024-01-22] MEDS: Nystatin Powder 15gm Bottle 1 APPLIC TOPICAL ×2 (06:00→14:29)
[2024-01-22 06:48] LABS: Bedside Glucose 97 mg/dL (74-106)
[2024-01-22] MEDS: Ipratropium/Albuterol Sulfate 3 ML AMPUL.NEB INHALATION ×2 (07:31→14:49)
[2024-01-22] MEDS: Midodrine HCl 5 MG Tablet 10 MG PO ×2 (09:48→12:09)
[2024-01-22] MEDS: Sertraline 50 MG Tablet 150 MG PO (09:48)
[2024-01-22] MEDS: Topiramate 25 MG Tablet PO (09:48)
[2024-01-22] MEDS: levoFLOXacin 750 MG Tablet PO (09:48)
[2024-01-22] MEDS: busPIRone 5 MG Tablet PO (09:48)
[2024-01-22] MEDS: Enoxaparin 40 MG/0.4 ML Syringe SC (09:48)
[2024-01-22] MEDS: Pantoprazole Sodium 20 MG Tablet PO (09:49)
[2024-01-22] MEDS: Montelukast 10 MG Tablet PO (09:49)
[2024-01-22] MEDS: Dicyclomine 10 MG Capsule PO ×2 (09:49→14:29)
[2024-01-22] MEDS: Acetaminophen 325 MG Tablet 650 MG PO (09:59)
[2024-01-22] MEDS: Gabapentin 100 MG Capsule 200 MG PO (09:59)
[2024-01-22] MEDS: Vancomycin IV 1,000 MG/200 ML BAG 200 MG IV (10:06)
[2024-01-22] MEDS: 0.9% Saline Lock 10 ML Syringe IV (10:21)
[2024-01-22] MEDS: Ondansetron 4 MG/2 ML Vial IV (10:21)
[2024-01-22 12:34] LABS: Bedside Glucose 134 mg/dL (74-106)
--- NOTE | 2024-01-22 13:57 | TREXTCAR_ITS ---
Diet Diet Order/Speech Therapy: 01/20/24 13:41 Diet: Cardiac - Heart Healthy Routine Orders/Code Status O2 Liters per Minute: 3; BiPAP at setting of 16/10 with a rate of 12 & 40% O2 when sleeping/naps O2 Frequency: Continuous Keep PO Greater than or Equal to (%): 90 Therapies Weight Bearing: Full weight bearing Problem/Diagnosis (1) Acute respiratory failure with hypoxia and hypercapnia: Status: Acute Code(s): J96.01 - Acute respiratory failure with hypoxia; J96.02 - Acute respiratory failure with hypercapnia Plan 1. Acute combined respiratory failure with existing chronic hypoxic respiratory failure-patient is currently on nasal cannula oxygen at 2 L, she will wear BiPAP as needed and while sleeping #2 septic shock-patient's blood pressures are stable at this time #3 metabolic encephalopathy-resolved at this time, secondary to combined acute respiratory failure on a backdrop of chronic hypoxic respiratory failure #4 morbid obesity-complicates care, management, recovery, and prognosis #5 obstructive sleep apnea-patient wore BiPAP as needed and while sleeping #6 acute kidney injury-resolved at this time Total clinical time spent by myself addressing the patient's medical issues, reviewing all of her data, and collaborating with patient's care team: 35 minutes Allergies/Procedures Done in Hospital Allergies aspirin Allergy (Verified 01/18/24 12:26) Other black pepper (pepper) Allergy (Verified 01/18/24 12:26) Other coconut Allergy (Verified 01/18/24 12:26) Other codeine Allergy (Verified 01/18/24 12:26) Other ibuprofen Allergy (Verified 01/18/24 12:26) Other Influenza Virus Vaccines Allergy (Verified 01/18/24 12:26) Other Penicillins Allergy (Verified 01/18/24 12:26) Anaphylaxis rice Allergy (Verified 01/18/24 12:26) Other tetanus and diphtheria toxoids Allergy (Verified 01/18/24 12:26) Other Tetanus Vaccines and Toxoid Allergy (Verified 01/18/24 12:26) Other Procedures: Arterial line placement Type of Care/Length of Stay Estimated LOS: More Than 30 Days Type of Care Needed: Intermediate Rehab Potential: Fair Prognosis: Fair Additional Orders/Day of Discharge H&P will serve as current which was dated: 01/18/24 Day of Discharge: 01/22/24 Dietary and Speech Recommendations Dietitian Recommendations/Changes: Recommend advance diet as tolerated to 1800 calorie, cardiac/sodium-restricted with FR as needed per physician. ONS not indicated at this time. Recommend PCP referral for supportive weight loss with out-patient RD when medically stable. Discharge Plan Admission Admit Date/Time: 01/18/24 15:21 Primary Reason for Your Visit: septic shock, exacerbation of COPD, resp failure Attending Provider: Alejandro Morillo Primary Care Provider: Sepideh Patterson Consulting Providers: Amaya Jacome; Cornell Baez; Juan Thompson; Hugo Templeton; Ab Lainez; Kirill Gil; Kam Estrada; Jada Guardado; Kong Carlin; Cecil Payton; Carmelita Jones; Alejandro Montemayor; Michael Grant; Angel Gaviria; Avtar Godinez; Janes Lazo; Elliot Lopez; Yves Molina; Jennifer Armas Discharge Orders/Prescriptions Prescriptions: New midodrine 5 mg Tablet 10 mg PO TIDCM Qty: 0 0RF levofloxacin 750 mg Tablet 750 mg PO DAILY Qty: 0 0RF Rx Instructions: Continue for 3 days starting 01/23/2024 sennosides-docusate sodium [Stimulant Laxative Plus] 8.6-50 mg Tablet 2 tab PO BID PRN PRN (Reason: Constipation) Qty: 0 0RF nystatin [Nyamyc] 100,000 unit/gram Powder 1 applic topical TID Qty: 0 0RF Protocol: *Topical Application Instructions APPLICATION INSTRUCTIONS: To Folds Continued atorvastatin 20 mg Tablet 20 mg PO QHS famotidine 20 mg Tablet 20 mg PO QHS amitriptyline 25 mg Tablet 25 mg PO QODAY montelukast 10 mg Tablet 10 mg PO DAILY omeprazole 20 mg Tablet,Delayed Release (Dr/Ec) 20 mg PO DAILY roflumilast [Daliresp] 500 mcg Tablet 500 mcg PO DAILY dicyclomine 10 mg Capsule 10 mg PO 4X/DAY Qty: 1 0RF albuterol sulfate 90 mcg/actuation Hfa Aerosol Inhaler 2 puff INHALATION Q2H PRN (Reason: SOB) cholecalciferol (vitamin D3) 50 mcg (2,000 unit) tablet 50 mcg PO DAILY sertraline 50 mg tablet 150 mg PO DAILY Rx Instructions: TAKE ONE 50MG AND ONE 100MG TABLET TOGETHER ONCE DAILY FOR A TOTAL DAILY DOSE OF 150MG. loperamide [Imodium A-D] 2 mg capsule 2 mg PO Q8H PRN (Reason: DIARRHEA ) albuterol sulfate 0.63 mg/3 mL solution for nebulization 0.63 mg inhalation 4X/DAY PRN (Reason: shortness of breath or wheezing) buspirone 5 mg tablet 5 mg PO BID Fleet Enema 19-7 gram/118 mL enema 118 ml NC DAILY PRN (Reason: constipation) Rx Instructions: USE FOR UP TO 2 EPISODES IF DULCOLAX SUPPOSITORY INEFFECTIVE. CALL PHYSICIAN IF NO BM FOR 4 DAYS guaifenesin [Adult Tussin Chest Congestion] 100 mg/5 mL liquid 200 mg PO Q4H PRN (Reason: cough) furosemide 20 mg tablet 40 mg PO DAILY loratadine [Allergy Relief (loratadine)] 10 mg tablet 10 mg PO DAILY trazodone 50 mg tablet 50 mg PO QHS ondansetron HCl 4 mg tablet 4 mg PO Q8H PRN (Reason: nausea and vomiting) topiramate 25 mg tablet 25 mg PO DAILY acetaminophen 325 mg Tablet 650 mg PO Q4H PRN (Reason: Fever, pain -01/16) alum-mag hydroxide-simeth [Mag-Al Plus Extra Strength] 400-400-40 mg/5 mL Suspension 30 ml PO Q4H PRN (Reason: Gastric Burning) prednisone 20 mg tablet 20 mg PO DAILY Qty: 1 0RF Rx Instructions: 1 tablet daily for 3 days, then 1/2 tablet daily for 3 days, then stop medication gabapentin 100 mg capsule 200 mg PO BID melatonin 5 mg capsule 5 mg PO QHS Discontinued losartan 50 mg Tablet 50 mg PO DAILY fluticasone propionate 50 mcg/actuation [place],Suspension 2 spray INTRANASAL BID PRN (Reason: NASAL CONGESTION) acetaminophen 650 mg suppository 650 mg NC Q4H PRN (Reason: pain) menthol-zinc oxide [Calmoseptine] 0.44-20.6 % Ointment 1 applic topical 4X/DAY Protocol: *Topical Application Instructions APPLICATION INSTRUCTIONS: apply to affected region Rx Instructions: APPLY TO BUTTOCK 4 TIMES A DAY FOR EXCORIATION doxycycline monohydrate 100 mg capsule 100 mg PO DAILY Referrals / Follow Up: Sepideh Patterson MD [Primary Care Provider] - Disposition Disposition (needs filled in before D/C Order can be placed): NonSkilled NH/Intermed Care
--- NOTE | 2024-01-22 14:36 | PCM.DC.SUM ---
Providers Date of Admission: 01/18/24 Date of Discharge: 01/22/24 Primary Care Physician: Dr. Sepideh Patterson MD Consultations 01/18/24 17:28 Consult: [facility]ling [employer] Molder / Pulmonary Medicine Routine Consulting Provider: Intensivists/Pulmonary Med Reason for Consult: Hypotension, respiratory failure EMERGENT Consult: No MD Notified: Yes Date Notified: 01/18/24 Time Notified: 17:45 Method of Notification: Text Reason For Visit: AHHRF Diagnosis Discharge Diagnosis (1) Acute respiratory failure with hypoxia and hypercapnia: Status: Acute Code(s): J96.01 - Acute respiratory failure with hypoxia; J96.02 - Acute respiratory failure with hypercapnia Plan 1. Acute combined respiratory failure with existing chronic hypoxic respiratory failure-patient is currently on nasal cannula oxygen at 2 L, she will wear BiPAP as needed and while sleeping #2 septic shock-patient's blood pressures are stable at this time #3 metabolic encephalopathy-resolved at this time, secondary to combined acute respiratory failure on a backdrop of chronic hypoxic respiratory failure #4 morbid obesity-complicates care, management, recovery, and prognosis #5 obstructive sleep apnea-patient wore BiPAP as needed and while sleeping #6 acute kidney injury-resolved at this time Total clinical time spent by myself addressing the patient's medical issues, reviewing all of her data, and collaborating with patient's care team: 35 minutes Medications at Discharge Home Medications amitriptyline 25 mg tablet 25 mg PO QODAY DEPRESSION 05/03/22 atorvastatin 20 mg tablet 20 mg PO QHS CHOLESTEROL 05/03/22 famotidine 20 mg tablet 20 mg PO QHS GERD 05/03/22 montelukast 10 mg tablet 10 mg PO DAILY ALLERGIES 05/03/22 omeprazole 20 mg tablet,delayed release 20 mg PO DAILY GERD 05/03/22 roflumilast 500 mcg tablet (Daliresp) 500 mcg PO DAILY ASTHMA 05/03/22 dicyclomine 10 mg capsule 10 mg PO 4X/DAY IRRITABLE BOWELS #1 cap 05/05/22 albuterol sulfate 90 mcg/actuation aerosol inhaler 2 puff inhalation Q2H PRN SOB 09/08/22 cholecalciferol (vitamin D3) 50 mcg (2,000 unit) tablet 50 mcg PO DAILY SUPPLEMENT 04/16/23 loperamide 2 mg capsule (Imodium A-D) 2 mg PO Q8H PRN DIARRHEA 04/16/23 sertraline 50 mg tablet 150 mg PO DAILY DEPRESSION 04/16/23 acetaminophen 325 mg tablet 650 mg PO Q4H PRN Fever, pain 1-01/1607/26/23 albuterol sulfate 0.63 mg/3 mL solution for nebulization 0.63 mg inhalation 4X/DAY PRN shortness of breath or wheezing 07/26/23 aluminum-mag hydroxide-simethicone 400 mg-400 mg-40 mg/5 mL oral susp (Mag-Al Plus Extra Strength) 30 ml PO Q4H PRN Gastric Burning 07/26/23 buspirone 5 mg tablet 5 mg PO BID mental health 07/26/23 furosemide 20 mg tablet 40 mg PO DAILY diuretic 07/26/23 guaifenesin 100 mg/5 mL oral liquid (Adult Tussin Chest Congestion) 200 mg PO Q4H PRN cough 07/26/23 loratadine 10 mg tablet (Allergy Relief (loratadine)) 10 mg PO DAILY allergies 07/26/23 ondansetron HCl 4 mg tablet 4 mg PO Q8H PRN nausea and vomiting 07/26/23 sodium phosphates 19 gram-7 gram/118 mL enema (Fleet Enema) 118 ml OR DAILY PRN constipation 07/26/23 topiramate 25 mg tablet 25 mg PO DAILY migraines 07/26/23 trazodone 50 mg tablet 50 mg PO QHS insomnia 07/26/23 gabapentin 100 mg capsule 200 mg PO BID pain 11/23/23 melatonin 5 mg capsule 5 mg PO QHS insomnia 11/23/23 levofloxacin 750 mg tablet 750 mg PO DAILY #0 tabs 01/22/24 midodrine 5 mg tablet 10 mg (2 x 5 mg) PO TIDCM #0 tabs 01/22/24 nystatin 100,000 unit/gram topical powder (Nyamyc) 1 applic topical TID #0 grams 01/22/24 prednisone 20 mg tablet 20 mg PO DAILY COPD #1 TAB 01/22/24 sennosides 8.6 mg-docusate sodium 50 mg tablet (Stimulant Laxative Plus) 2 tab PO BID PRN PRN Constipation #0 tabs 01/22/24 Hospital Course Operations None Procedures Aterial line placement Summary of Care Provided Minutes Spent on Discharge: 31 Hospital Course: This 63-year-old white female was seen in the emergency room at [facility] with altered level of consciousness and a low pulse ox-she was transferred from a local extended care facility where she lived under intermediate care. In the emergency room, patient was found to have an elevated pCO2 of 126 with a pO2 of 70 and a pH of 7.19, patient's creatinine was elevated at 1.28. Patient was given IV fluids and started on BiPAP, chest x-ray was difficult to determine given the patient's habitus and her baseline abnormalities on her chest x-ray. Patient was given IV Levaquin for possible pneumonia, patient was noted to have low blood pressures in the emergency room and Levophed was started. Patient was admitted to ICU, an A-line was inserted, pressors were continued and eventually weaned off. Patient was felt to have septic shock but blood cultures were not positive. Patient was transferred to PCU, she remained stable, on 01/22/2024, patient was seen and examined: On examination she appeared in good health and spirits, she does not appear to be in any distress. Vital signs as documented. Skin warm and dry and without overt rashes. Neck without JVD, thyroid appears normal, trachea is midline, neck is supple. Lungs clear, normal air movement was noted. Heart exam notable for regular rhythm, normal sounds and absence of murmurs, rubs or gallops. Abdomen unremarkable and without evidence of organomegaly, masses, or abdominal aortic enlargement, bowel sounds are present in all 4 quadrants, no abdominal tenderness was noted. Extremities nonedematous, no cyanosis was noted, no clubbing was noted. Neuro: Cranial nerves II through XII are grossly intact, no focal motor deficits were noted, sensation to light touch and pinprick is intact, motor exam 5/5 throughout. Psych: Patient is alert and oriented x3, she does not appear anxious or depressed, she does not appear agitated. Patient was felt to be stable for return to her intermediate care facility on 01/22/2024 stable condition. Weight / BMI Weight Weight: 149.7 kg Body Mass Index (BMI) 51.7 ABG / Lab / Microbiology Data 01/21/24 05:42 01/21/24 05:42 Laboratory: Laboratory Results - last 24 hr 01/21/24 16:02: POC Glucose 114 H 01/22/24 05:57: POC Glucose 97 01/22/24 12:07: POC Glucose 134 H Microbiology: Microbiology 01/21/24 18:10 Stool Clostridioides difficile (PCR) - Final 01/18/24 13:35 Urine, Catheterized Urine Culture - Final Culture exhibits no growth. 01/18/24 14:15 Blood Culture (Wb) - Left Hand Blood Culture - Preliminary No growth in 48 hours. 01/18/24 18:57 Mucosa - Nasopharyngeal Respiratory Panel (PCR) - Final 01/18/24 17:25 Urine Catheter - Stevenson Legionella Antigen - Final 01/18/24 17:25 Urine Catheter - Stevenson Streptococcus pneumoniae Antigen (M - Final 01/18/24 13:03 Mucosa - Nose SARS-CoV-2, Influenza & RSV (PCR) - Final Meaningful Use Info Meaningful Use Meaningful Use Diagnoses (Choose all that apply): None applicable Ischemic Stroke Statin Dosing Therapy Reference: STATIN DOSE THERAPY REFERENCE: * Patients > 75 years receive moderate or high dose statin therapy. * Patients 75 years or YOUNGER should receive HIGH intensity statin dose unless contraindicated. You will be required to document reason for non-treatment if statin daily dose does not meet guidelines. HIGH DOSE STATIN THERAPY DAILY Atorvastatin > than or = to 40 mg Rosuvastatin > than or = to 20 mg Amlodipine + Atorvastatin > than or = to 2.5/40 mg Ezetimibe + Simvastatin 10/80 mg Simvastatin 80mg Discharge Plan Admission Admit Date/Time: 01/18/24 15:21 Primary Reason for Your Visit: septic shock, exacerbation of COPD, resp failure Attending Provider: Alejandro Morillo Primary Care Provider: Sepideh Patterson Consulting Providers: Amaya Jacome; Cornell Baez; Juan Thompson; Hugo Templeton; Ab Lainez; Kirill Gil; Kam Estrada; Jada Guardado; Kong Carlin; Cecil Payton; Carmelita Jones; Alejandro Montemayor; Michael Grant; Angel Gaviria; Avtar Godinez; Janes Lazo; Elliot Lopez; Yves Molina; Marina Armas Discharge Orders/Prescriptions Prescriptions: New midodrine 5 mg Tablet 10 mg PO TIDCM Qty: 0 0RF levofloxacin 750 mg Tablet 750 mg PO DAILY Qty: 0 0RF Rx Instructions: Continue for 3 days starting 01/23/2024 sennosides-docusate sodium [Stimulant Laxative Plus] 8.6-50 mg Tablet 2 tab PO BID PRN PRN (Reason: Constipation) Qty: 0 0RF nystatin [Nyamyc] 100,000 unit/gram Powder 1 applic topical TID Qty: 0 0RF Protocol: *Topical Application Instructions APPLICATION INSTRUCTIONS: To Folds Continued atorvastatin 20 mg Tablet 20 mg PO QHS famotidine 20 mg Tablet 20 mg PO QHS amitriptyline 25 mg Tablet 25 mg PO QODAY montelukast 10 mg Tablet 10 mg PO DAILY omeprazole 20 mg Tablet,Delayed Release (Dr/Ec) 20 mg PO DAILY roflumilast [Daliresp] 500 mcg Tablet 500 mcg PO DAILY dicyclomine 10 mg Capsule 10 mg PO 4X/DAY Qty: 1 0RF albuterol sulfate 90 mcg/actuation Hfa Aerosol Inhaler 2 puff INHALATION Q2H PRN (Reason: SOB) cholecalciferol (vitamin D3) 50 mcg (2,000 unit) tablet 50 mcg PO DAILY sertraline 50 mg tablet 150 mg PO DAILY Rx Instructions: TAKE ONE 50MG AND ONE 100MG TABLET TOGETHER ONCE DAILY FOR A TOTAL DAILY DOSE OF 150MG. loperamide [Imodium A-D] 2 mg capsule 2 mg PO Q8H PRN (Reason: DIARRHEA ) albuterol sulfate 0.63 mg/3 mL solution for nebulization 0.63 mg inhalation 4X/DAY PRN (Reason: shortness of breath or wheezing) buspirone 5 mg tablet 5 mg PO BID Fleet Enema 19-7 gram/118 mL enema 118 ml OR DAILY PRN (Reason: constipation) Rx Instructions: USE FOR UP TO 2 EPISODES IF DULCOLAX SUPPOSITORY INEFFECTIVE. CALL PHYSICIAN IF NO BM FOR 4 DAYS guaifenesin [Adult Tussin Chest Congestion] 100 mg/5 mL liquid 200 mg PO Q4H PRN (Reason: cough) furosemide 20 mg tablet 40 mg PO DAILY loratadine [Allergy Relief (loratadine)] 10 mg tablet 10 mg PO DAILY trazodone 50 mg tablet 50 mg PO QHS ondansetron HCl 4 mg tablet 4 mg PO Q8H PRN (Reason: nausea and vomiting) topiramate 25 mg tablet 25 mg PO DAILY acetaminophen 325 mg Tablet 650 mg PO Q4H PRN (Reason: Fever, pain 1-01/16) alum-mag hydroxide-simeth [Mag-Al Plus Extra Strength] 400-400-40 mg/5 mL Suspension 30 ml PO Q4H PRN (Reason: Gastric Burning) prednisone 20 mg tablet 20 mg PO DAILY Qty: 1 0RF Rx Instructions: 1 tablet daily for 3 days, then 1/2 tablet daily for 3 days, then stop medication gabapentin 100 mg capsule 200 mg PO BID melatonin 5 mg capsule 5 mg PO QHS Discontinued losartan 50 mg Tablet 50 mg PO DAILY fluticasone propionate 50 mcg/actuation [place],Suspension 2 spray INTRANASAL BID PRN (Reason: NASAL CONGESTION) acetaminophen 650 mg suppository 650 mg OR Q4H PRN (Reason: pain) menthol-zinc oxide [Calmoseptine] 0.44-20.6 % Ointment 1 applic topical 4X/DAY Protocol: *Topical Application Instructions APPLICATION INSTRUCTIONS: apply to affected region Rx Instructions: APPLY TO BUTTOCK 4 TIMES A DAY FOR EXCORIATION doxycycline monohydrate 100 mg capsule 100 mg PO DAILY Referrals / Follow Up: Sepideh Patterson MD [Primary Care Provider] - Disposition Disposition (needs filled in before D/C Order can be placed): NonSkilled NH/Intermed Care Charges/Coding Visit Charges Inpatient E&M: 84334 Disch Hosp >30min
--- NOTE | 2024-01-22 14:54 | CASEMGMT ---
Patient is ready to go back to [facility]. Physicians will transport patient via cot. Plan: d/c back to [facility] under intermediate level of care. Sheeba GENAO
--- NOTE | 2024-01-22 15:23 | CASEMGMT ---
Discharge Planning Discharge orders, signed med list, and transport time sent to [facility] via [facility]. Physicians will transport patient by cot at 4:30p. Nursing, SW, and patient updated. Payal Li DC Planning Asst.
--- NOTE | 2024-01-22 15:38 | PHA.DC.MR.R ---
Pharmacy MD Med Reconciliation Pharmacy Service has performed discharge medication reconciliation for this patient. The patient's discharge medication list was reviewed for discrepancies and discrepancies were resolved. Medications at Discharge Home Medications amitriptyline 25 mg tablet 25 mg PO QODAY DEPRESSION 05/03/22 atorvastatin 20 mg tablet 20 mg PO QHS CHOLESTEROL 05/03/22 famotidine 20 mg tablet 20 mg PO QHS GERD 05/03/22 montelukast 10 mg tablet 10 mg PO DAILY ALLERGIES 05/03/22 omeprazole 20 mg tablet,delayed release 20 mg PO DAILY GERD 05/03/22 roflumilast 500 mcg tablet (Daliresp) 500 mcg PO DAILY ASTHMA 05/03/22 dicyclomine 10 mg capsule 10 mg PO 4X/DAY IRRITABLE BOWELS #1 cap 05/05/22 albuterol sulfate 90 mcg/actuation aerosol inhaler 2 puff inhalation Q2H PRN SOB 09/08/22 cholecalciferol (vitamin D3) 50 mcg (2,000 unit) tablet 50 mcg PO DAILY SUPPLEMENT 04/16/23 loperamide 2 mg capsule (Imodium A-D) 2 mg PO Q8H PRN DIARRHEA 04/16/23 sertraline 50 mg tablet 150 mg PO DAILY DEPRESSION 04/16/23 acetaminophen 325 mg tablet 650 mg PO Q4H PRN Fever, pain 1-01/1607/26/23 albuterol sulfate 0.63 mg/3 mL solution for nebulization 0.63 mg inhalation 4X/DAY PRN shortness of breath or wheezing 07/26/23 aluminum-mag hydroxide-simethicone 400 mg-400 mg-40 mg/5 mL oral susp (Mag-Al Plus Extra Strength) 30 ml PO Q4H PRN Gastric Burning 07/26/23 buspirone 5 mg tablet 5 mg PO BID mental health 07/26/23 furosemide 20 mg tablet 40 mg PO DAILY diuretic 07/26/23 guaifenesin 100 mg/5 mL oral liquid (Adult Tussin Chest Congestion) 200 mg PO Q4H PRN cough 07/26/23 loratadine 10 mg tablet (Allergy Relief (loratadine)) 10 mg PO DAILY allergies 07/26/23 ondansetron HCl 4 mg tablet 4 mg PO Q8H PRN nausea and vomiting 07/26/23 sodium phosphates 19 gram-7 gram/118 mL enema (Fleet Enema) 118 ml [place] DAILY PRN constipation 07/26/23 topiramate 25 mg tablet 25 mg PO DAILY migraines 07/26/23 trazodone 50 mg tablet 50 mg PO QHS insomnia 07/26/23 gabapentin 100 mg capsule 200 mg PO BID pain 11/23/23 melatonin 5 mg capsule 5 mg PO QHS insomnia 11/23/23 levofloxacin 750 mg tablet 750 mg PO DAILY #0 tabs 01/22/24 midodrine 5 mg tablet 10 mg (2 x 5 mg) PO TIDCM #0 tabs 01/22/24 nystatin 100,000 unit/gram topical powder (Nyamyc) 1 applic topical TID #0 grams 01/22/24 prednisone 20 mg tablet 20 mg PO DAILY COPD #1 TAB 01/22/24 sennosides 8.6 mg-docusate sodium 50 mg tablet (Stimulant Laxative Plus) 2 tab PO BID PRN PRN Constipation #0 tabs 01/22/24
--- NOTE | 2024-01-22 16:12 | NURSING ---
Report called to SIMRAN Morales at [facility].
[2024-01-22 16:13] LABS: Bedside Glucose 117 mg/dL (74-106)
== END 2024-01-22 17:55 | disposition intermediate care facility (04) | DRG 871 ==
LOC: ED 15:34 → ICU 01-19 06:29 → PCU 01-20 20:16 → ICU 01-21 07:19
PROVIDERS: Internal Medicine; Admitting Provider Internal Medicine; Emergency Provider Emergency Medicine; PCP Internal Medicine; Visit Provider Internal Medicine
DX: A41.9 Sepsis, unspecified organism (principal); R65.21 Severe sepsis with septic shock; J96.21 Acute and chronic respiratory failure with hypoxia; G92.8 Other toxic encephalopathy; J96.22 Acute and chronic respiratory failure with hypercapnia; N17.9 Acute kidney failure, unspecified; I50.22 Chronic systolic (congestive) heart failure; E66.2 Morbid (severe) obesity with alveolar hypoventilation; J44.0 Chronic obstructive pulmonary disease with (acute) lower respiratory infection; Z68.43 Body mass index [BMI] 50.0-59.9, adult; J44.1 Chronic obstructive pulmonary disease with (acute) exacerbation; I95.9 Hypotension, unspecified; D64.9 Anemia, unspecified; I11.0 Hypertensive heart disease with heart failure; F32.A Depression, unspecified; E78.5 Hyperlipidemia, unspecified; K58.9 Irritable bowel syndrome, unspecified; E55.9 Vitamin D deficiency, unspecified; M79.7 Fibromyalgia; K21.9 Gastro-esophageal reflux disease without esophagitis; F41.9 Anxiety disorder, unspecified; Z99.81 Dependence on supplemental oxygen; Z87.891 Personal history of nicotine dependence; R73.9 Hyperglycemia, unspecified; R53.81 Other malaise; Z86.73 Personal history of transient ischemic attack (TIA), and cerebral infarction without residual deficits; Z79.899 Other long term (current) drug therapy; Z91.198 Patient's noncompliance with other medical treatment and regimen for other reason
CPT/HCPCS: 36415; 36600; 70450; 71045; 80048; 80053; 80202; 81001; 82803; 82962; 83605; 83735; 83880; 84100; 84484; 85025; 87040; 87086; 87449; 87493; 87631; 87633; 87641; 93005; 94002; 94003; 94640; 94668; 97802; 99285; J7030; J7040; J7050; P9612; A4216; J2405

== ENCOUNTER → 2024-01-23 | Outpatient (REF) | payer MEDICARE, MEDICAID, SELFPAY ==
[2024-01-23 09:33] LABS: Absolute Lymphocyte Count 2.87 X10^3/uL (0.83-4.51); Absolute Neutrophil Count 3.3 X10^3/uL (2.0-7.7); Basophil# 0.01 X10^3/uL; Basophil% 0.1 % (0-1); Eosinophil# 0.07 X10^3/uL; Hematocrit 30.6 % (37-47); Hemoglobin 8.6 g/dL (12.0-15.0); Lymphocyte # 2.87 X10^3/ul (0.83-4.51); Lymphocyte % 40.1 % (19-41); Mean Corp Hgb Conc 28.1 g/dL (32-36); Mean Corpuscular Hgb 24.6 pg (27.0-32.0); Mean Corpuscular Volume 87.7 fL (81-99); Mean Platelet Vol. 12.7 fl (6.2-12.0); Monocyte# 0.85 X10^3/uL; Monocyte% 11.9 % (0-10); NRBC Flagged by Analyzer 0 % (0-5); Neutrophil % 46.2 % (47-70); Platelet Count 187 K/mm3 (150-450); RBC Distribution Width CV 15.7 % (11.6-14.6); RBC Distribution Width SD 49.3 fl (35.1-43.9); Red Blood Count 3.49 M/mm3 (4.2-5.4); White Blood Count 7.2 K/mm3 (4.4-11.0)
[2024-01-23 09:47] LABS: ALB/GLOB Ratio 0.9 RATIO (0.9-2.4); AST(SGOT) 8 U/L (15-37); Alanine Aminotransfer ALT/SGPT 8 U/L (13-56); Albumin, Serum 2.5 g/dL (3.2-5.0); Alkaline Phosphatase 54 U/L (45-117); Anion Gap 5 (5-15); BUN 21 mg/dL (7-18); BUN/Creat Ratio 26.2 RATIO (10-20); Calcium,Total 9.1 mg/dL (8.5-10.1); Chloride 103 mmol/L (98-107); EST Glomerular Filtration Rate 77 mL/min (>60); Est Glom Filt Rate - Afr Amer 93 mL/min (>60); Globulin 2.9 g/dL (2.2-4.2); Glucose 82 mg/dL (74-106); Magnesium 1.5 mg/dL (1.6-2.6); Potassium 3.4 mmol/L (3.5-5.1); Protein, Total 5.4 g/dL (6.4-8.2); Sodium Level 142 mmol/L (136-145)
== END ==
LOC: OLS.SW 05:00
PROVIDERS: PCP Internal Medicine; Visit Provider Internal Medicine
DX: Z79.899 Other long term (current) drug therapy (principal)
CPT/HCPCS: 36415; 80053; 83735; 85025

== ENCOUNTER → 2024-01-28 05:00 | Outpatient (REF) | payer MEDICARE, MEDICAID, SELFPAY ==
[2024-01-28 09:36] LABS: Absolute Lymphocyte Count 1.86 X10^3/uL (0.83-4.51); Basophil# 0.03 X10^3/uL; Basophil% 0.5 % (0-1); Eosinophil# 0.13 X10^3/uL; Eosinophils% 2.2 % (0-5); Hematocrit 35.8 % (37-47); Hemoglobin 10.2 g/dL (12.0-15.0); Lymphocyte # 1.86 X10^3/ul (0.83-4.51); Mean Corp Hgb Conc 28.5 g/dL (32-36); Mean Corpuscular Hgb 25.4 pg (27.0-32.0); Mean Corpuscular Volume 89.3 fL (81-99); Mean Platelet Vol. 12.6 fl (6.2-12.0); Monocyte# 0.76 X10^3/uL; Monocyte% 13.1 % (0-10); NRBC Flagged by Analyzer 0 % (0-5); Neutrophil % 51.5 % (47-70); Platelet Count 171 K/mm3 (150-450); Red Blood Count 4.01 M/mm3 (4.2-5.4); White Blood Count 5.8 K/mm3 (4.4-11.0)
[2024-01-28 10:55] LABS: ALB/GLOB Ratio 0.9 RATIO (0.9-2.4); AST(SGOT) 9 U/L (15-37); Alanine Aminotransfer ALT/SGPT 12 U/L (13-56); Albumin, Serum 2.7 g/dL (3.2-5.0); Alkaline Phosphatase 62 U/L (45-117); Anion Gap 1 (5-15); BUN 17 mg/dL (7-18); BUN/Creat Ratio 34.8 RATIO (10-20); Calcium,Total 9.5 mg/dL (8.5-10.1); Chloride 97 mmol/L (98-107); Creatinine, Serum 0.49 mg/dL (0.55-1.02); EST Glomerular Filtration Rate 136 mL/min (>60); Est Glom Filt Rate - Afr Amer 165 mL/min (>60); Globulin 3.1 g/dL (2.2-4.2); Glucose 92 mg/dL (74-106); Magnesium 1.8 mg/dL (1.6-2.6); Potassium 3.4 mmol/L (3.5-5.1); Protein, Total 5.8 g/dL (6.4-8.2); Sodium Level 140 mmol/L (136-145)
== END ==
LOC: OLS.SW 05:00
PROVIDERS: PCP Internal Medicine; Visit Provider Internal Medicine
DX: D64.9 Anemia, unspecified (principal); J44.9 Chronic obstructive pulmonary disease, unspecified; I10 Essential (primary) hypertension; N17.9 Acute kidney failure, unspecified
CPT/HCPCS: 36415; 80053; 83735; 85025

== ENCOUNTER → 2024-01-30 | Outpatient (REF) | payer MEDICARE, MEDICAID, SELFPAY ==
[2024-01-30 08:53] LABS: Anion Gap 3 (5-15); BUN 29 mg/dL (7-18); BUN/Creat Ratio 29.2 RATIO (10-20); Calcium,Total 9.5 mg/dL (8.5-10.1); Chloride 110 mmol/L (98-107); Creatinine, Serum 0.99 mg/dL (0.55-1.02); EST Glomerular Filtration Rate 60 mL/min (>60); Est Glom Filt Rate - Afr Amer 73 mL/min (>60); Glucose 94 mg/dL (74-106); Magnesium 2.7 mg/dL (1.6-2.6); Potassium 4.1 mmol/L (3.5-5.1); Sodium Level 139 mmol/L (136-145)
== END ==
LOC: OLS.SW 05:00
PROVIDERS: PCP Internal Medicine; Visit Provider Internal Medicine
DX: J44.9 Chronic obstructive pulmonary disease, unspecified (principal)
CPT/HCPCS: 36415; 80048; 83735

== ENCOUNTER → 2024-02-11 | Outpatient (REF) | payer MEDICARE, MEDICAID, SELFPAY ==
[2024-02-11 10:22] LABS: Troponin-I HS 15 pg/mL (3.0-54.0)
== END ==
LOC: OLS.SW 04:00
PROVIDERS: PCP Internal Medicine; Referring Provider Internal Medicine; Visit Provider Internal Medicine
DX: R79.89 Other specified abnormal findings of blood chemistry (principal)
CPT/HCPCS: 36415; 84484

== ENCOUNTER 2024-02-18 06:07 | Emergency (ER) | payer MEDICARE, MEDICAID, SELFPAY ==
[2024-02-18 06:09] VITALS: BP 96/75; PULSE 96; RESP 17; TEMP 36.8; O2SAT 91; BMI 49.0
[2024-02-18 06:14] VITALS: BP 96/75; PULSE 101; RESP 18; TEMP 36.8; O2SAT 91
[2024-02-18] MEDS: Ondansetron 4 MG/2 ML Vial IV (06:31)
[2024-02-18 06:44] LABS: Absolute Lymphocyte Count 2.06 X10^3/uL (0.83-4.51); Absolute Neutrophil Count 8.7 X10^3/uL (2.0-7.7); Basophil# 0.05 X10^3/uL; Basophil% 0.4 % (0-1); Eosinophils% 0.8 % (0-5); Hematocrit 39.1 % (37-47); Hemoglobin 10.9 g/dL (12.0-15.0); Lymphocyte # 2.06 X10^3/ul (0.83-4.51); Mean Corp Hgb Conc 27.9 g/dL (32-36); Mean Corpuscular Hgb 24.9 pg (27.0-32.0); Mean Corpuscular Volume 89.3 fL (81-99); Mean Platelet Vol. 12.3 fl (6.2-12.0); Monocyte# 0.97 X10^3/uL; NRBC Flagged by Analyzer 0.2 % (0-5); Neutrophil # 8.68 X10^3/uL (2.7-7.7); Neutrophil % 71.4 % (47-70); Platelet Count 287 K/mm3 (150-450); RBC Distribution Width CV 14.1 % (11.6-14.6); RBC Distribution Width SD 46.1 fl (35.1-43.9); Red Blood Count 4.38 M/mm3 (4.2-5.4); White Blood Count 12.2 K/mm3 (4.4-11.0)
[2024-02-18 06:49] VITALS: O2SAT 91
[2024-02-18 07:04] LABS: BUN 11 mg/dL (7-18); BUN/Creat Ratio 17.2 RATIO (10-20); Calcium,Total 10.3 mg/dL (8.5-10.1); Carbon Dioxide > 45.0 mmol/L (21.0-32.0); Chloride 90 mmol/L (98-107); Creatinine, Serum 0.64 mg/dL (0.55-1.02); EST Glomerular Filtration Rate 100 mL/min (>60); Est Glom Filt Rate - Afr Amer 121 mL/min (>60); Glucose 166 mg/dL (74-106); Potassium 3.6 mmol/L (3.5-5.1); Sodium Level 140 mmol/L (136-145); Troponin-I HS 16 pg/mL (3.0-54.0)
[2024-02-18 07:09] VITALS: BP 103/63; PULSE 99; RESP 19; TEMP 37; O2SAT 91
[2024-02-18 07:49] VITALS: BP 109/60; PULSE 100; RESP 19; TEMP 36.9; O2SAT 93
== END 2024-02-18 08:42 | disposition home or self-care (01) ==
PROVIDERS: Emergency Provider Emergency Medicine; PCP Internal Medicine; Visit Provider Emergency Medicine
DX: R11.10 Vomiting, unspecified (principal); I11.0 Hypertensive heart disease with heart failure; I50.22 Chronic systolic (congestive) heart failure; G93.41 Metabolic encephalopathy; Z87.891 Personal history of nicotine dependence; J98.4 Other disorders of lung; E78.5 Hyperlipidemia, unspecified; R09.02 Hypoxemia; R91.8 Other nonspecific abnormal finding of lung field; E66.9 Obesity, unspecified; Z86.73 Personal history of transient ischemic attack (TIA), and cerebral infarction without residual deficits
CPT/HCPCS: 71045; 80048; 84484; 85025; 93005; 96374; 99285; A4216; J2405

== ENCOUNTER → 2024-02-27 04:00 | Outpatient (REF) | payer MEDICARE, MEDICAID, SELFPAY ==
[2024-02-27 09:52] LABS: Thyroid Stim Hormone (TSH) 0.163 uIU/mL (0.358-3.740)
== END ==
LOC: OLS.SW 04:00
PROVIDERS: PCP Internal Medicine; Referring Provider Internal Medicine; Visit Provider Internal Medicine
DX: R63.4 Abnormal weight loss (principal); J44.9 Chronic obstructive pulmonary disease, unspecified
CPT/HCPCS: 36415; 84443

== ENCOUNTER → 2024-03-03 | Outpatient (REF) | payer MEDICARE, MEDICAID, SELFPAY ==
[2024-03-03 10:06] LABS: T4 Total, Thyroxin 7.7 ug/dL (4.8-13.9)
== END ==
LOC: OLS.SW 05:00
PROVIDERS: PCP Internal Medicine; Visit Provider Internal Medicine
DX: E03.9 Hypothyroidism, unspecified (principal)
CPT/HCPCS: 36415; 84436; 84480

== ENCOUNTER → 2024-03-26 | Outpatient (REF) | payer MEDICARE, MEDICAID, SELFPAY ==
[2024-03-26 07:00] LABS: BUN 12 mg/dL (7-18); BUN/Creat Ratio 23.7 RATIO (10-20); Calcium,Total 10.2 mg/dL (8.5-10.1); Carbon Dioxide > 45.0 mmol/L (21.0-32.0); Chloride 94 mmol/L (98-107); Creatinine, Serum 0.51 mg/dL (0.55-1.02); EST Glomerular Filtration Rate 131 mL/min (>60); Est Glom Filt Rate - Afr Amer 158 mL/min (>60); Glucose 138 mg/dL (74-106); Potassium 3.4 mmol/L (3.5-5.1); Sodium Level 139 mmol/L (136-145)
== END ==
LOC: OLS.SW 05:00
PROVIDERS: PCP Internal Medicine; Visit Provider Internal Medicine
DX: N17.9 Acute kidney failure, unspecified (principal)
CPT/HCPCS: 36415; 80048

== ENCOUNTER → 2024-04-23 04:00 | Outpatient (REF) | payer MEDICARE, MEDICAID, SELFPAY ==
[2024-04-23 07:33] LABS: Anion Gap 4 (5-15); BUN 12 mg/dL (7-18); Calcium,Total 10.4 mg/dL (8.5-10.1); Chloride 89 mmol/L (98-107); Creatinine, Serum 0.48 mg/dL (0.55-1.02); EST Glomerular Filtration Rate 139 mL/min (>60); Est Glom Filt Rate - Afr Amer 168 mL/min (>60); Glucose 124 mg/dL (74-106); Sodium Level 138 mmol/L (136-145)
== END ==
LOC: OLS.SW 04:00
PROVIDERS: PCP Internal Medicine; Referring Provider Internal Medicine; Visit Provider Internal Medicine
DX: J96.12 Chronic respiratory failure with hypercapnia (principal)
CPT/HCPCS: 36415; 80048

== ENCOUNTER → 2024-05-12 07:55 | Outpatient (REF) | payer MEDICARE, MEDICAID, SELFPAY ==
[2024-05-12 10:14] LABS: Hematocrit 37.8 % (37-47); Hemoglobin 10.5 g/dL (12.0-15.0); Mean Corp Hgb Conc 27.8 g/dL (32-36); Mean Corpuscular Hgb 24.2 pg (27.0-32.0); Mean Corpuscular Volume 87.1 fL (81-99); Mean Platelet Vol. 12.6 fl (6.2-12.0); Platelet Count 196 K/mm3 (150-450); RBC Distribution Width CV 14.6 % (11.6-14.6); RBC Distribution Width SD 46.1 fl (35.1-43.9); Red Blood Count 4.34 M/mm3 (4.2-5.4); White Blood Count 7.5 K/mm3 (4.4-11.0)
[2024-05-12 11:20] LABS: ALB/GLOB Ratio 0.7 RATIO (0.9-2.4); AST(SGOT) 12 U/L (15-37); Alanine Aminotransfer ALT/SGPT 12 U/L (13-56); Albumin, Serum 2.9 g/dL (3.2-5.0); Alkaline Phosphatase 95 U/L (45-117); Anion Gap 5 (5-15); BUN 11 mg/dL (7-18); BUN/Creat Ratio 17.7 RATIO (10-20); Calcium,Total 10.8 mg/dL (8.5-10.1); Chloride 93 mmol/L (98-107); Creatinine, Serum 0.62 mg/dL (0.55-1.02); EST Glomerular Filtration Rate 103 mL/min (>60); Est Glom Filt Rate - Afr Amer 125 mL/min (>60); Globulin 4.1 g/dL (2.2-4.2); Glucose 121 mg/dL (74-106); Potassium 3.3 mmol/L (3.5-5.1); Sodium Level 141 mmol/L (136-145)
== END ==
LOC: OLS.SW 07:55
PROVIDERS: PCP Internal Medicine; Referring Provider Family Medicine; Visit Provider Family Medicine
DX: D64.9 Anemia, unspecified (principal)
CPT/HCPCS: 36415; 80053; 85027

== ENCOUNTER → 2024-06-23 | Outpatient (REF) | payer MEDICARE, MEDICAID, SELFPAY ==
[2024-06-23 09:01] LABS: Hematocrit 38.7 % (37-47); Mean Corp Hgb Conc 28.4 g/dL (32-36); Mean Corpuscular Hgb 24.3 pg (27.0-32.0); Mean Corpuscular Volume 85.4 fL (81-99); Mean Platelet Vol. 12.2 fl (6.2-12.0); Platelet Count 219 K/mm3 (150-450); RBC Distribution Width CV 14.5 % (11.6-14.6); RBC Distribution Width SD 44.5 fl (35.1-43.9); Red Blood Count 4.53 M/mm3 (4.2-5.4); White Blood Count 9.4 K/mm3 (4.4-11.0)
[2024-06-23 11:26] LABS: Hemoglobin A1c 6.1 % (<=5.6)
[2024-06-23 14:01] LABS: Anion Gap 10 (5-15); BUN 16 mg/dL (4-19); BUN/Creat Ratio 29.7 RATIO (10-20); Calcium,Total 10.3 mg/dL (7.6-11.0); Carbon Dioxide 38.7 mmol/L (21.0-32.0); Chloride 93 mmol/L (98-108); Cholesterol 173 mg/dL (<=200); Creatinine, Serum 0.54 mg/dL (0.70-1.20); EST Glomerular Filtration Rate 104 (>60); Glucose 132 mg/dL (70-99); High Density Lipoprotein 50 mg/dL; Low Density Lipoprotein Calc. 89 mg/dL; Potassium 3.6 mmol/L (3.3-5.1); Pro- Brain NATRIURETIC PEPTIDE 74 pg/mL (<=900); Sodium Level 142 mmol/L (133-145); T4 Total, Thyroxin 6.7 ug/dL (4.8-13.9); Thyroid Stim Hormone (TSH) 0.494 uIU/mL (0.300-4.200); Triglycerides 170 mg/dL; Very Low Density Lipoprotein 34 mg/dL (5-40); cholesterol:hdl ratio screen 3.44
[2024-06-23 16:16] LABS: Microalbumin,Random Urine 12.4 mg/L (NO RANGE EST.)
== END ==
LOC: OLS.SW 04:00
PROVIDERS: Referring Provider Family Medicine; Visit Provider Family Medicine
DX: J44.9 Chronic obstructive pulmonary disease, unspecified (principal); J96.11 Chronic respiratory failure with hypoxia; J96.12 Chronic respiratory failure with hypercapnia; I50.9 Heart failure, unspecified; Z79.899 Other long term (current) drug therapy
CPT/HCPCS: 36415; 80048; 80061; 82043; 83036; 83880; 84436; 84443; 85027

== ENCOUNTER → 2024-07-01 | Outpatient (CLI) | payer MEDICARE, MEDICAID, SELFPAY ==
--- NOTE | 2024-07-01 08:49 | ECHOCS_ITS ---
Reason For Study Reason For Study: ABN EKG Procedure This was a 2D Doppler, Color Flow transthoracic echocardiogram. The study was technically difficult. The study was technically limited. PT arrived in cart from retirement. PT was in right lateral decubitus position and refused to be moved into left lateral position. Contrast injection was performed. Exam performed in department. Left Ventricle Only apical views available. Overall left ventricular systolic function appears normal with LVEF 50%. Unable to assess diastolic dysfunction based on available data. Right Ventricle The right ventricle is not well visualized. Atria Left atrium appears mildly dilated. Normal right atrium. Mitral Valve Mitral valve not well visualized. Tricuspid Valve The tricuspid valve is not well visualized. Aortic Valve The aortic valve is not well visualized. Pulmonic Valve The pulmonic valve is not well visualized. Great Vessels The aortic root is not well visualized. Pericardium/Pleural No pericardial effusion noted. Medication 22 gauge I.V. with prn adaptor inserted into left arm. Definity7.0ml given slow IV push to enhance endocardial definition. MMode/2D Measurements & Calculations Ao root diam: 3.1 cm LAV(MOD-sp4): 43.8 ml LVAd ap4: 23.7 cm2 LVLd ap4: 7.3 cm EDV(MOD-sp4): 63.3 ml EDV(sp4-el): 65.5 ml LVAs ap4: 14.7 cm2 LVLs ap4: 5.8 cm ESV(MOD-sp4): 30.5 ml ESV(sp4-el): 31.5 ml EF(MOD-sp4): 51.7 % EF(sp4-el): 51.9 % SV(MOD-sp4): 32.7 ml SV(sp4-el): 34.0 ml LA A4 area: 16.5 cm2 SI(MOD-sp4): 13.4 ml/m2 LA dimension(2D): 3.7 cm TAPSE: 1.7 cm Time Measurements MV dec time: 0.14 sec Doppler Measurements & Calculations MV E max alireza: 44.5 cm/sec MV V2 max: 79.6 cm/sec Ao V2 max: 123.0 cm/sec MV A max alireza: 56.2 cm/sec MV max P.5 mmHg Ao max P.0 mmHg MV E/A: 0.79 MV V2 mean: 51.7 cm/sec Ao V2 mean: 82.3 cm/sec MV mean P.2 mmHg Ao mean P.0 mmHg MV V2 VTI: 17.0 cm Ao V2 VTI: 19.3 cm AV (velocity ratio): 0.72 LV V1 max: 100.4 cm/sec PA V2 max: 111.2 cm/sec LV V1 max P.0 mmHg LV V1 mean P.1 mmHg LV V1 mean: 66.7 cm/sec LV V1 VTI: 13.9 cm ECHO/Echo Complete W/ Contrast Interpretation Summary The study was technically difficult with suboptimal images. Overall left ventricular systolic function appears normal with LVEF 50%. Left atrium appears mildly dilated. Valves not well-visualized. Ordering Physician: Theo Cho Referring Physician: Heath Macario Performed By: Deidra Nguyen RDCS, RVT
== END | disposition home or self-care (01) ==
PROVIDERS: Referring Provider Internal Medicine Cardiovascular Disease; Visit Provider Internal Medicine Cardiovascular Disease
DX: R94.31 Abnormal electrocardiogram [ECG] [EKG] (principal)
CPT/HCPCS: 93306; Q9957; A4216; C8929

== ENCOUNTER → 2024-07-21 | Outpatient (REF) | payer MEDICARE, MEDICAID, SELFPAY ==
[2024-07-21 09:31] LABS: Anion Gap 9 (5-15); BUN 15 mg/dL (4-19); BUN/Creat Ratio 27.3 RATIO (10-20); Calcium,Total 10.5 mg/dL (7.6-11.0); Carbon Dioxide 37.4 mmol/L (21.0-32.0); Chloride 94 mmol/L (98-108); Creatinine, Serum 0.54 mg/dL (0.70-1.20); EST Glomerular Filtration Rate 104 (>60); Glucose 107 mg/dL (70-99); Potassium 3.5 mmol/L (3.3-5.1); Sodium Level 140 mmol/L (133-145)
== END ==
LOC: OLS.SW 04:00
PROVIDERS: Referring Provider Family Medicine; Visit Provider Family Medicine
DX: D64.9 Anemia, unspecified (principal); I11.0 Hypertensive heart disease with heart failure; I50.9 Heart failure, unspecified; J44.9 Chronic obstructive pulmonary disease, unspecified
CPT/HCPCS: 36415; 80048

== ENCOUNTER → 2024-10-21 | Outpatient (REF) | payer MEDICARE, MEDICAID, SELFPAY ==
--- OUTSIDE RECORDS SUMMARY | 2024-10-21 04:22 | XMS RPT_ITS | CCD ---
Author Organization [facility] Care Team Providers Care Microwave Radio Technician Name Role Phone Kamran, Kingston Unavailable KAMRAN, KINGSTON Unavailable Unavailable KAMRAN, KINGSTON Unavailable Unavailable DECLINED, DR Unavailable Unavailable [facility] Unavailabl e Unavailable KAMRAN, KINGSTON Unavailable Unavailable KAMRAN, KINGSTON Unavailable Unavailable [facility] Unavailabl e Unavailable NONE, NONE Unavailable Unavailable KAMRAN, KINGSTON Unavailable Unavailable KAMRAN, KINGSTON Unavailable Unavailable [facility] Unavailabl e Unavailable NONE, NONE Unavailable Unavailable Isa Fuchs Unavailable Kamran, Kingston Primary Care Provider Unavailable Primary Care Provider Unavailabl e Isa Fuchs Primary Care Provider Isa Fuchs PA-C Primary Care Provider [phone] Isa Fuchs PA-C Primary Care Provider GILBERT BATES Attending Unavailable JEF, ISA KNOXE Primary Care Unavailable GILBERT BATES Attending Unavailable JEF, ISA PRABHAKAR Primary Care Unavailable HOPE, BRIGHT Attending Unavailable HOPE, BRIGHT Referring Unavailable HOPE, BRIGHT Attending Unavailable HOPE, BRIGHT Referring Unavailable SUNIL SPENCER Attending Unavailable JEF, ISA PRABHAKAR Primary Care Unavailable CANDI NOEL Attending Unavailable JEF, ISA PRABHAKAR Primary Care Unavailable GILBERT BATES Admitting Unavailable GILBERT BATES Referring Unavailable JEF, ISA PRABHKAAR Primary Care Unavailable GILBERT BATES Attending Unavailable GILBERT BATES Referring Unavailable SHANIKA SALCEDO Consulting Unavailable FRANCISCO, OSMANY MACHADO Admitting Unavailable KAMRAN, KINGSTON Attending Unavailable JEF, ISA PRABHAKAR Primary Care Unavailable KAMRAN, KINGSTON Attending Unavailable SHORT, JONI SANDADI Consulting Unavailabl e FUCHS, ISA KNXOE Primary Care Unavailable GILBERT BATES Referring Unavailable SHORT, JONI SANDADI Admitting Unavailabl e OSMANY SINGH Attending Unavailable FUCHS, ISA PRABHAKAR Primary Care Unavailable GILBERT BATES Consulting Unavailable Leonardo, Dr. Bunn Primary Care Provider UnavailDr. Miranda Osborne Emergency Provider Dr. Marina Armas Admit Provider Dr. Marina Armas Attending Provider Dr. Marina Armas Other Provider Dr. Alejandro Morillo Attending Provider Dr. Alejandro Morillo Other Provider Dr. Osmany Storey Attending Provider Dr. Berenice Ramirez Emergency Provider Dr. Amaya Jacome Admit Provider Dr. Amaya Jacome Attending Provider Dr. Amaya Jacome Other Provider Dr. Leanna Pascual Attending Provider Unavailable Dr. Leanna Pascual Other Provider Unavailable Dr. Prosper Lorenzo Other Provider Dr. Sepideh Patterson Primary Care Provider Unavaila Dr. Miranda Castellanos Emergency Provider Dr. Marina Armas Admit Provider Dr. Marina Armas Attending Provider Dr. Marina Armas Other Provider Dr. Osmany Storey Attending Provider Dr. Alejandro Morillo Attending Provider Dr. Alejandro Morillo Other Provider Dr. Berenice Ramirez Emergency Provider Dr. Amaya Jacome Admit Provider Dr. Amaya Jacome Attending Provider Dr. Amaya Jacome Other Provider Dr. Leanna Pascual Attending Provider Unavailable Dr. Leanna Pascual Other Provider Unavailable Maura, Dr. Dial Other Provider Dr. Jayme Lamar Emergency Provider [facility], Dr. Bernard Admit Provider [facility], Dr. Bernard Attending Provider [facility], Dr. Bernard Other Provider Dr. Jayme Corea Attending Provider Anmol, Dr. Delacruz Other Provider Dr. Sepideh Patterson Primary Care Provider Unavaila Dr. Miranda Castellanos Emergency Provider Dr. Marina Armas Admit Provider Dr. Marina Armas Attending Provider Dr. Marina Armas Other Provider Dr. Osmany Storey Attending Provider Dr. Alejandro Morillo Referring Provider Dr. Alejandro Morillo Attending Provider Dr. Alejandro Morillo Other Provider Dr. Berenice Ramirez Emergency Provider Dr. Amaya Jacome Admit Provider Dr. Amaya Jacome Attending Provider Dr. Amaya Jacome Other Provider Dr. Leanna Pascual Attending Provider Unavailable Dr. Leanna Pascual Other Provider Unavailable Dr. Prosper Lorenzo Other Provider Dr. Jayme Lamar Emergency Provider [facility], Dr. Bernard Admit Provider [facility], Dr. Bernard Attending Provider [facility], Dr. Bernard Other Provider Dr. Jayme Corea Attending Provider Dr. Jayme Corea Other Provider Dr. Sepideh Patterson Primary Care Provider Unavaila allen Bonilla, Dr. Smith Emergency Provider Dr. Jayme Corea Admit Provider Dr. Sepdieh Patterson Primary Care Provider Unavaila allen Ramirez, Dr. Ng Emergency Provider Dr. Amaya Jacome Admit Provider Dr. Amaya Jacome Other Provider Dr. Otoniel Mei Other Provider Dr. Hugo Templeton Attending Provider Dr. Hugo Templeton Other Provider Dr. Pawel Oswald Other Provider Dr. Aguila Merchant Other Provider Unavailab henrietta Morales MERCHANDISE DISTRIBUTOR, MERCHANDISE DISTRIBUTOR-C Yessica Other Provider Dr. Yomi Lorenzo Attending Provider Dr. Yomi Lorenzo Other Provider Dr. Pawel Oswald Attending Provider Dr. Sepideh Patterson Primary Care Provider Unavailpark Bonilla, Dr. Smith Emergency Provider Dr. Jayme Corea Admit Provider Dr. Jayme Corea Attending Provider Dr. Jyame Corea Other Provider Dr. Leanna Pascual Other Provider Unavailable Dr. Otoniel Mei Other Provider Dr. Hugo Templeton Attending Provider Dr. Hugo Templeton Other Provider Dr. Pawel Oswald Other Provider Dr. Aguila Merchant Other Provider Unavailab Padgett MERCHANDISE DISTRIBUTOR, MERCHANDISE DISTRIBUTOR-C Yessica Other Provider Dr. Yomi Lorenzo Referring Provider Dr. Leanna Pascual Attending Provider Unavailable Dr. Yomi Lorenzo Attending Provider Dr. Yomi Lorenzo Other Provider Dr. Pawel Oswald Attending Provider Dr. Sepideh Patterson Primary Care Provider UnavailDr. Anatoly Churchill Emergency Provider Dr. Elizabeth Choe Admit Provider Dr. Elizabeth Choe Other Provider Dr. Leanna Pascual Attending Provider Unavailable Ankur, Dr. Berger Other Provider Unavailable MANJEET MAY Referring Unavailable ISA FUCHS Primary Care Unavailable Dr. Sepideh Patterson Primary Care Provider UnavailDr. Anatoly Churchill Emergency Provider Dr. Elizabeth Choe Admit Provider Dr. Elizabeth Choe Other Provider Dr. Leanna Pascual Attending Provider Unavailable Dr. Leanna Pascual Other Provider Unavailable Dr. Berenice Ramirez Emergency Provider Dr. Ahsan Sousa Attending Provider Dr. Ahsan Sousa Other Provider Dr. Sepideh Patterson MD Primary Care Provider Dr. Sepideh Bee MD Attending Provider Priscilla Patterson MD, Dr. Bunn Referring Provider Unavailpark Macario MD, Dr. Joe Attending Provider Unavail Dr. Heath Marcum MD Referring Provider Unavail enrike Patterson MD, Dr. Bunn Referring Provider Unavailpark Cho MD, Dr. Venegas Attending Provider Dr. Heath Macario DO Primary Care Provider Marquis VILLAR, Dr. Venegas Referring Provider Dr. Heath Macario MD Attending Provider Unavail able Renaldo VILLAR, Dr. Joe Referring Provider Unavail able Marquis VILLAR, Dr. Venegas Attending Provider Renaldo FORREST, Dr. Joe Referring Provider [phone] Gudla, Sepideh Primary Care Unavailable Gudla Caroline KOROMAyothi Attending Unavailable Gudla, Sepideh Primary Care Unavailable Gudla Caroline KOROMAyothi Attending Unavailable Gudla, Sepideh Primary Care Unavailable Heath Maya Attending Unavailable Renaldo KOROMA, Heath Referring Unavailable Heath Maya Referring Unavailable Heath Maya Attending Unavailable Renaldo, Heath Primary Care Unavailable Renaldo, Heath Primary Care Unavailable Heath Maya Referring Unavailable Heath Maya Attending Unavailable Gudla Caroline KOROMAyothi Attending Unavailable Gudla, Sepideh Primary Care Unavailable Gudla Caroline KOROMAyothi Attending Unavailable Gudla, Sepideh Primary Care Unavailable Gudla, Sepideh Primary Care Unavailable Gudla Sepideh KOROMA Attending Unavailable Gudla GA Sepideh Referring Unavailable Theo Cho Attending Unavailable Gudla, Sepideh Primary Care Unavailable Gudla, Sepideh Referring Unavailable Gudla, Sepideh Primary Care Unavailable Gudla Caroline KOROMAyothi Attending Unavailable Gudla, Sepideh Primary Care Unavailable Gudla Caroline KOROMAyothi Attending Unavailable Gudla, Sepideh Primary Care Unavailable Miranda Post Attending Unavailable Gudla, Sepideh Primary Care Unavailable Gudla Caroline KOROMAyothi Attending Unavailable Gudla, Sepideh Primary Care Unavailable Gudla Caroline KOROMAyothi Attending Unavailable Gudla, Sepideh Primary Care Unavailable Gudla OLS, Sepideh Referring Unavailable Gudla OLS Sepideh Attending Unavailable Gudla, Sepideh Primary Care Unavailable Gudla GA Sepideh Attending Unavailable Gudla, Sepideh Primary Care Unavailable Gudla GA Sepideh Attending Unavailable Gudla, Sepideh Primary Care Unavailable Gudla OLS, Sepideh Referring Unavailable Gudla GA Sepideh Attending Unavailable Marina Armas Consulting Unavailable Marina Armas Admitting Unavailable Gudla, Sepideh Primary Care Unavailable Kalyani Mack Attending Unavailable Cornell Baez Consulting Unavailable Thompson, Juan Consulting Unavailable Hugo Templeton Consulting Unavailable Leanna Lainez Consulting Unavailable Kirill Gil Consulting Unavailable Sean, Kam Consulting Unavailable Habtegedanette, Jada Consulting Unavailab le Dand, Kong Consulting Unavailable Payton, Cecil Consulting Unavailable Karen, Carmelita Consulting Unavailable Aljundi, Lamia Consulting Unavailable Rudy, Michael Consulting Unavailable Irukulla, Angel Consulting Unavailable Herbert, Avtar Consulting Unavailable Aguila Merchant Consulting Unavailable John, Elliot Consulting Unavailable Yves Molina Consulting Unavailable Carmen MERCHANDISE DISTRIBUTOR, Yessica Consulting Unavailable Alejandro Morillo Consulting Unavailable Lindaam, Kalyani Etssa Consulting Unavailable Marina Armas Attending Unavailable Cornell Baez Consulting Unavailable Amaya Jacome Admitting Unavailable Gudla, Sepideh Primary Care Unavailable Thompson, Juan Consulting Unavailable Hugo Templeton Consulting Unavailable Leanna Lainez Consulting Unavailable Rinaeis, Kirill Consulting Unavailable Sean, Kam Consulting Unavailable Habtegedanette, Jada Consulting Unavailab le Dand, Kong Consulting Unavailable Payton, Cecil Consulting Unavailable Karen, Carmelita Consulting Unavailable Aljundi, Lamia Consulting Unavailable Rudy, Michael Consulting Unavailable Irukulla, Angel Consulting Unavailable Herbert, Avtar Consulting Unavailable Janes Lazo Consulting Unavailable John, Elliot Consulting Unavailable Yves Molina Consulting Unavailable Amaya Jacome Consulting Unavailable Marina Armas Consulting Unavailable Alejandro Morillo Attending Unavailable Alejandro Morillo Consulting Unavailable Gudla, Sepideh Primary Care Unavailable Reilly Serrano Attending Unavailable Marina Armas Consulting Unavailable Marina Armas Admitting Unavailable Koram, Kalyani Tessa Attending Unavailable Gudla, Sepideh Primary Care Unavailable Alejandro Morillo Consulting Unavailable Amaya Jacome Admitting Unavailable Amaya Jacome Consulting Unavailable Alejandro Morillo Attending Unavailable Gudla, Sepideh Primary Care Unavailable Cornell Baez Consulting Unavailable Thompson, Juan Consulting Unavailable Hugo Templeton Consulting Unavailable Leanna Lainez P Consulting Unavailable Jeffery, Kirill Consulting Unavailable Sean, Kam Consulting Unavailable Habtegebranthony, Jada Consulting Unavailab le Dand, Kong Consulting Unavailable Payton, Cecil Consulting Unavailable Karen, Carmelita Consulting Unavailable Alejandro Montemayor Consulting Unavailable Rudy, Michael Consulting Unavailable Angel Gaviria Consulting Unavailable Avtar Godinez Consulting Unavailable Janes Lazo Consulting Unavailable Elliot Lopez Consulting Unavailable Yves Molina Consulting Unavailable Marina Armas Consulting Unavailable Alejandro Morillo Attending Unavailable Marquis, Theo Referring Unavailable Marquis, Theo Attending Unavailable Macario, Heath Primary Care Unavailable Kalyani Mack Referring Unavailable Hugo Templeton Attending Unavailable Amaya Jacome Attending Unavailable Marquis, Theo Attending Unavailable Macario, Heath Primary Care Unavailable Marquis, Theo Attending Unavailable Macario, Heath Primary Care Unavailable Macario, Heath Referring Unavailable Marquis, Theo Attending Unavailable Gudla, Sepideh Primary Care Unavailable Gudla, Sepideh Referring Unavailable Marina Armas Consulting Unavailable Marina Armas Admitting Unavailable Marina Armas Attending Unavailable Gudla, Sepideh Primary Care Unavailable Allergies Allergy Classification Reported Allergen(s) Allergy Type Date of Onset Reaction(s) Facility (20 sources) aspirin; Translations: [ASPIRIN] Propensity to adverse reactions to drug 6 GI Intolerance [facility] Work Phone: (20 sources) codeine; Translations: [CODEINE] Propensity to adverse reactions to drug 6 Anaphylaxis [facility] Work Phone: (20 sources) ibuprofen; Translations: [IBUPROFEN] Propensity to adverse reactions to drug 6 GI Intolerance [facility] Work Phone: (14 sources) penicillin; Translations: [PENICILLIN] Propensity to adverse reactions to drug 6 [facility] Work Phone: (5 sources) Influenza Virus Vaccines; Translations: [INFLUENZA VIRUS VACCINES] Propensity to adverse reactions to drug 1 [facility] (5 sources) Tetanus Vaccines And Toxoid; Translations: [TETANUS VACCINES AND TOXOID] Propensity to adverse reactions to drug 1 [facility] (3 sources) Influenza Virus Vaccines Propensity to adverse reactions to drug 1 [facility] (3 sources) Tetanus Vaccines And Toxoid Propensity to adverse reactions to drug 1 [facility] (20 sources) brown rice preparation; Translations: [RICE] Drug Allergy 2 Other [facility] Repository (20 sources) Coconut extract; Translations: [COCONUT] Drug Allergy 2 Other [facility] Rep[facility] (2 sources) FLAVORING AGENT (BULK); Translations: [FLAVORING AGENT (BULK)] Propensity to adverse reactions to drug (disorder) 2 [facility] (2 sources) PEPPER (GENUS CAPSICUM); Translations: [PEPPER (GENUS CAPSICUM)] Propensity to adverse reactions to drug (disorder) 2 [facility] (20 sources) Black Pepper Preparation Drug Allergy 3 Other [facility] (20 sources) Influenza Vaccines Allergy to substance 3 Other [facility] (20 sources) tetanus and diphtheria toxoids; Translations: [tetanus and diphtheria toxoids] Allergy to substance 3 Other [facility] (20 sources) Tetanus Vaccines and Toxoid Allergy to substance 3 Other [facility] (20 sources) Penicillins Allergy to substance 3 Anaphylaxis [facility] (1 source) Aspirin Drug Allergy 5 [facility] Repository (1 source) Black Pepper Preparation Drug Allergy 5 [facility] Repository (1 source) Codeine Drug Allergy 5 [facility] Repository (1 source) Ibuprofen Drug Allergy 5 [facility] Repository (1 source) Penicillins Drug allergy (disorder) 5 [facility] Repository (1 source) Influenza Virus Vaccines Drug allergy (disorder) 5 [facility] Repository (1 source) Tetanus Vaccines and Toxoid Drug allergy (disorder) 5 [facility] Repository Medications Current Medications Medication Drug Class(es) Dates Sig (Normalized) Sig (Original) albuterol 0.21 mg/ml inhalation solution (20 sources) beta2-Adrenergic Agonist Start: 07-26-2023 take 0.63 mg by inhalation four times daily as needed for wheezing Albuterol Sulfate 0.63 mg/3 mL solution for nebulization Active 0.63 mg INHALATION 4 TIMES DAILY as needed for shortness of breath or wheezing July 26, 2023 12:00am Start: 09-08-2022 Albuterol Sulf ate 90 mcg/actuation Hfa Aerosol Inhaler Active 2 NMA INHALATION Q2H as needed for SOB September 08, 2022 12:00am Start: 09-08-2022 take 1 puff(s) by in halation every two hours Albuterol Sulfate Active 2 PUFF INHALATION Q2H September 08, 2022 12:00am Start: 09-08-2022 Start: 05-03-2022 take 1 puff(s) by in halation every two hours Albuterol Sulfate Active 2 PUFF INHALATION Q2H May 03, 2022 12:00am Start: 07-19-2021 albuterol (PRO VENTIL) 2.5 mg /3 mL (0.083 %) nebulizer solution Use one vial every 6-8 hours as needed via nebulization. . 75 mL 2 07/19/2021 Active Start: 07-19-2021 End: 07-19-2022 take 2 puff(s) by inhalation every six hours as needed for wheezing ProAir HFA 90 mcg/actuation inhaler Indications: Chronic obstructive pulmonary disease, unspecified COPD type (HCC) Inhale 2 (two) puffs every 6 (six) hours as needed for wheezing . 32 g 3 07/19/2021 07/19/2022 Active Start: 04-19-2021 End: 04-19-2022 take 2 puff(s) by inhalation every six hours as needed for wheezing ProAir HFA 90 mcg/actuation inhaler Indications: Chronic obstructive pulmonary disease, unspecified COPD type (HCC) Inhale 2 (two) puffs every 6 (six) hours as needed for wheezing . 18 g 0 04/19/2021 04/19/2022 Active Start: 03-27-2020 End: 04-01-2020 take 2.5 mg by inhalation every four hours as needed 2.5 mg, Nebulization, Every 4 hours PRN (RT), wheezing, Starting 03/27/20 at 1318 Start: 03-19-2020 albuterol (PRO VENTIL) 2.5 mg /3 mL (0.083 %) nebulizer solution Use one vial every 6-8 hours as needed via nebulization. . 75 mL 2 03/19/2020 Active Start: 02-12-2020 End: 05-12-2021 take 2 puff(s) by inhalation every six hours as needed for wheezing ProAir HFA 90 mcg/actuation inhaler Indications: Chronic obstructive pulmonary disease, unspecified COPD type (HCC) Inhale 2 (two) puffs every 6 (six) hours as needed for wheezing . 2 Inhaler 3 05/12/2020 05/12/2021 Active Start: 02-12-2017 End: 02-12-2017 albuterol (PROVENTIL) 2.5 mg /3 mL (0.083 %) nebulizer solution 2.5 mg 2.5 mg, Inhalation, Once, 02/12/17 at 0535, For 1 dose, SVN Treatment 3 of 3; 3rd treatment Albuterol Given 02/12/2017 05:42 EST 2.5 mg albuterol 90 mcg /actuation inhaler Inhale 2 puffs every 6 (six) hours as needed for wheezing. Active albuterol 90 mcg /actuation inhaler Inhale 2 puffs every 6 (six) hours as needed for wheezing. Active albuterol 0.833 mg/ml / ipratropium bromide 0.167 mg/ml inhalant solution (11 sources) Anticholinergic, beta2-Adrenergic Agonist Start: 03-27-2020 End: 04-01-2020 3 mL, Nebulization, Every 6 hours scheduled (RT), First dose on 03/27/20 at 1415 Start: 10-31-2019 take 3 mL by inhalat ion every four hours as needed for chronic obstructive pulmonary disease and chronic obstructive pulmonary disease ipratropium-albuteroL (DUO-NEB) 0.5-2.5 mg/3 ml nebulizer Indications: Chronic obstructive pulmonary disease, unspecified COPD type (HCC) Take 3 mL by nebulization every 4 to 6 hours as needed for wheezing . 100 mL 3 05/12/2020 Active Start: 02-12-2017 End: 02-12-2017 ipratropium-albuterol (DUO-N EB) 0.5-2.5 mg/3 ml nebulizer solution 3 mL 3 mL, Inhalation, Once (RT), 02/12/17 at 0535, For 1 dose, SVN Treatment 1 of 3; 1st treatment Albuterol with Atrovent, followed by 2 Albuterol SVN. Given 02/12/2017 05:43 EST 3 mL Alum-Mag Hydroxide-Simeth (Mag-Al Plus Extra Strength) 400-400-40 mg/5 mL Suspension (12 sources) Start: 07-26-2023 take 1 mL by mouth every four hours as needed Alum-Mag Hydroxide-Simeth (Mag-Al Plus Extra Strength) 400-400-40 mg/5 mL Suspension Active 30 mL PO Q4H as needed for Gastric Burning July 26, 2023 12:00am Start: 07-26-2023 take 1 mL by mouth e very six hours Alum-Mag Hydroxide-Simeth (Mag-Al Plus Extra Strength) 400-400-40 mg/5 mL Suspension Active 30 ML PO EVERY 6 HOURS July 26, 2023 12:00am Start: 04-20-2023 End: 07-26-2023 take 1 mL by mouth every six hours as needed Alum-Mag Hydroxide-Simeth (Mag-Al Plus Extra Strength) 400-400-40 mg/5 mL Suspension Discontinued 30 mL PO EVERY 6 HOURS NEEDED as needed for Gastric Burning 0 April 20, 2023 1:00am July 26, 2023 1:47pm Start: 04-20-2023 End: 07-26-2023 take 1 mL by mouth every six hours as needed Alum-Mag Hydroxide-Simeth (Mag-Al Plus Extra Strength) 400-400-40 mg/5 mL Suspension Discontinued 30 ML PO EVERY 6 HOURS NEEDED 0 April 20, 2023 1:00am July 26, 2023 1:47pm Start: 04-20-2023 take 1 mL by mouth e very six hours as needed Alum-Mag Hydroxide-Simeth (Mag-Al Plus Extra Strength) 400-400-40 mg/5 mL Suspension Active 30 ML PO EVERY 6 HOURS NEEDED 0 April 20, 2023 12:00am amitriptyline hydrochloride 25 mg oral tablet (20 sources) Tricyclic Antidepressant Start: 05-03-2022 take 1 tablet by mouth every other day Amitriptyline 25 mg Tablet Active 25 mg PO EVERY OTHER DAY May 03, 2022 1:00am atorvastatin 20 mg oral tablet (20 sources) HMG-CoA Reductase Inhibitor Start: 05-03-2022 take 1 tablet by mouth at bedtime Atorvastatin 20 mg Tablet Active 20 mg PO AT BEDTIME May 03, 2022 1:00am Start: 12-05-2021 take 1 tablet by marco a th once daily atorvastatin (LIPITOR) 20 MG tablet Indications: Mixed hyperlipidemia Take 1 (one) tablet (20 mg total) by mouth nightly . 90 tablet 0 12/05/2021 Active Start: 04-19-2021 take 1 tablet by marco a th once daily atorvastatin (LIPITOR) 20 MG tablet Indications: Mixed hyperlipidemia Take 1 (one) tablet (20 mg total) by mouth nightly . 90 tablet 0 04/19/2021 Active Start: 03-27-2020 End: 04-01-2020 take 20 mg by mouth once daily 20 mg, Oral, Nightly, F irst dose on 03/27/20 at 2100 Start: 02-12-2020 take 1 tablet by marco a th once daily atorvastatin (LIPITOR) 20 MG tablet Take 1 (one) tablet (20 mg total) by mouth nightly . 30 tablet 3 02/12/2020 Active take 1 tablet by mouth once ator vastatin (LIPITOR) 20 MG tablet Take 20 mg by mouth nightly. Active Budesonide / formoterol (12 sources) Corticosteroid, beta2-Adrenergic Agonist Start: 11-02-2021 take 2 puff(s) by inhalation twice daily budesonide-formoteroL (SYMBICORT) 160-4.5 mcg/actuation inhaler Indications: Chronic obstructive pulmonary disease, unspecified COPD type (HCC) Inhale 2 (two) puffs 2 (two) times a day . 1 each 3 11/02/2021 Active Start: 04-19-2021 take 2 puff(s) by in halation twice daily budesonide-formoteroL (SYMBICORT) 160-4.5 mcg/actuation inhaler Indications: Chronic obstructive pulmonary disease, unspecified COPD type (HCC) Inhale 2 (two) puffs 2 (two) times a day . 1 each 0 04/19/2021 Active Start: 03-27-2020 End: 04-01-2020 take 2 puff(s) by inhalation twice daily 2 puff, Inhalation, 2 times daily (RT), First dose on 03/27/20 at 2000 SPACER REQUIRED FOR ADMINISTRATION Start: 02-12-2020 take 2 puff(s) by in halation twice daily budesonide-formoteroL (SYMBICORT) 160-4.5 mcg/actuation inhaler Inhale 2 (two) puffs 2 (two) times a day . 1 Inhaler 2 02/12/2020 Active take 2 puff(s) by in halation twice daily budesonide-formoterol (SYMBICORT) 160-4.5 mcg/actuation inhaler Inhale 2 puffs 2 (two) times a day. Active busPIRone hydrochloride 5 mg oral tablet (5 sources) Start: 07-26-2023 take 1 tablet by mouth twice daily Buspirone 5 mg tablet Active 5 mg PO TWICE A DAY July 26, 2023 12:00am calcium polycarbophil 625 mg oral tablet (16 sources) Start: 05-03-2022 cholecalciferol 0.05 mg oral tablet (8 sources) Vitamin D Start: 04-16-2023 take 1 tablet by mouth once daily Cholecalciferol (Vitamin D3) 50 mcg (2,000 unit) tablet Active 50 ug PO DAILY April 16, 2023 1:00am dicyclomine hydrochloride 10 mg oral capsule (20 sources) Anticholinergic Start: 05-03-2022 End: 05-05-2022 take 1 capsule by mouth four times daily Dicyclomine 10 mg Capsule Active 10 mg PO 4 TIMES DAILY May 05, 2022 6:41pm Start: 05-03-2022 End: 05-05-2022 take 1 capsule by mouth once daily as needed for diarrhea Dicyclomine 10 mg Capsule Discontinued 10 mg PO DAILY as needed for Diarrhea May 03, 2022 1:00am May 05, 2022 6:41pm Start: 04-19-2021 End: 04-19-2022 take 1 capsule by mouth three times daily as needed dicyclomine (BENTYL) 10 MG capsule Indications: Diarrhea, unspecified type Take 1 (one) capsule (10 mg total) by mouth 3 (three) times a day as needed . 90 capsule 1 09/13/2021 Active disposable gloves Misc (1 source) Start: 06-01-2020 disposable gloves Misc Use as needed daily to assist with hygiene. . 200 each 06/01/2020 Active docusate sodium 50 mg / sennosides, mcc 8.6 mg oral tablet (3 sources) Start: 01-22-2024 Sennosides-Docusat e Sodium (Stimulant Laxative Plus) 8.6-50 mg Tablet Active 2 {tbl} PO TWICE DAILY NEEDED as needed for Constipation 0 January 22, 2024 12:00am 0.4 ml enoxaparin sodium 100 mg/ml prefilled syringe (1 source) Low Molecular Weight Heparin Start: 01-14-2022 End: 02-13-2022 inject 0.4 mL by subcutaneous injection once daily enoxaparin (LOVENOX) 40 mg/0.4 mL Syrg Inject 0.4 mL (40 mg total) under the skin daily . 12 mL 0 01/14/2022 02/13/2022 Active famotidine 20 mg oral tablet (20 sources) Histamine-2 Receptor Antagonist Start: 05-03-2022 take 1 tablet by mouth at bedtime Famotidine 20 mg Tablet Active 20 mg PO AT BEDTIME May 03, 2022 1:00am Start: 12-05-2021 take 1 tablet by marco a th twice daily famotidine (Acid Private Eye, famotidine,) 20 MG tablet Indications: Gastroesophageal reflux disease, unspecified whether esophagitis present Take 1 (one) tablet (20 mg total) by mouth 2 (two) times a day . 180 tablet 0 12/05/2021 Active Start: 04-19-2021 take 1 tablet by marco a th twice daily famotidine (Acid Private Eye, famotidine,) 20 MG tablet Indications: Gastroesophageal reflux disease, unspecified whether esophagitis present Take 1 (one) tablet (20 mg total) by mouth 2 (two) times a day . 180 tablet 0 04/19/2021 Active Start: 05-12-2020 take 1 tablet by marco a th twice daily famotidine (Acid Private Eye, famotidine,) 20 MG tablet Take 1 (one) tablet (20 mg total) by mouth 2 (two) times a day . 180 tablet 0 05/12/2020 Active Start: 03-19-2020 take 1 tablet by marco a th twice daily famotidine (Acid Private Eye, famotidine,) 20 MG tablet Take 1 (one) tablet (20 mg total) by mouth 2 (two) times a day . 180 tablet 0 03/19/2020 Active furosemide 20 mg oral tablet (20 sources) Loop Diuretic Start: 07-26-2023 take 2 tablets by mouth once daily Furosemide 20 mg tablet Active 40 mg PO DAILY July 26, 2023 12:00am Start: 07-26-2023 take 20 mg by mouth twice haseeb y Furosemide Active 20 MG PO TWICE A DAY July 26, 2023 12:00am Start: 05-30-2022 End: 04-20-2023 take 1 tablet by mouth once daily Furosemide 40 mg tablet Discontinued 40 mg PO DAILY May 30, 2022 1:00am April 20, 2023 10:32am Start: 05-03-2022 End: 05-05-2022 take 1 tablet by mouth twice daily Furosemide 40 mg Tablet Discontinued 40 mg PO TWICE A DAY May 03, 2022 1:00am May 05, 2022 6:36pm Start: 12-05-2021 take 1 tablet by marco a th twice daily furosemide (LASIX) 40 MG tablet Take 1 (one) tablet (40 mg total) by mouth 2 (two) times a day . 180 tablet 0 12/05/2021 Active Start: 04-19-2021 take 1 tablet by marco a th twice daily furosemide (LASIX) 40 MG tablet Take 1 (one) tablet (40 mg total) by mouth 2 (two) times a day . 180 tablet 0 04/19/2021 Active Start: 05-12-2020 take 1 tablet by mraco a th twice daily furosemide (LASIX) 40 MG tablet Take 1 (one) tablet (40 mg total) by mouth 2 (two) times a day . 180 tablet 0 05/12/2020 Active Start: 03-29-2020 furosemide (LA SIX) injection 40 mg Start: 02-12-2020 take 1 tablet by marco a th twice daily furosemide (LASIX) 40 MG tablet Take 1 (one) tablet (40 mg total) by mouth 2 (two) times a day . 60 tablet 3 02/12/2020 Active take 1 tablet by marco a th twice daily furosemide (LASIX) 40 MG tablet Take 40 mg by mouth 2 (two) times a day. Active gabapentin 100 mg oral capsule (20 sources) Anti-epileptic Agent Start: 11-23-2023 take 2 capsules by mouth twice daily Gabapentin 100 mg capsule Active 200 mg PO TWICE A DAY November 23, 2023 12:00am Start: 05-28-2022 End: 04-16-2023 take 1 capsule by mouth twice daily Gabapentin 300 mg Capsule Discontinued 300 mg PO TWICE A DAY May 28, 2022 1:00am April 16, 2023 4:41pm Start: 05-03-2022 take 300 mg by mouth twice daily Gabapentin Active 300 MG PO TWICE A DAY May 03, 2022 12:00am glucose 0.4 mg/mg oral gel (7 sources) Start: 05-03-2022 Dextrose (Gluc ose Gel) 40 % Gel Active 10 GM PO Q15M May 03, 2022 12:00am guaiFENesin 20 mg/ml oral solution (16 sources) Start: 07-26-2023 take 200 mg by mouth every four hours as needed for cough Guaifenesin (Adult Tussin Chest Congestion) 100 mg/5 mL liquid Active 200 mg PO Q4H as needed for cough July 26, 2023 12:00am Start: 05-03-2022 take 1 tablet by marco a th twice daily, then take 1 tablet by mouth every twelve hours Guaifenesin (Mucinex) 600 mg Tablet Extended Release 12hr Active 600 MG PO TWICE A DAY May 03, 2022 12:00am Start: 07-19-2021 take 1 tablet by mouth once gu aiFENesin (MUCINEX) 600 mg 12 hr tablet Indications: Chronic obstructive pulmonary disease, unspecified COPD type (HCC) Take 1 (one) tablet (600 mg total) by mouth every 12 (twelve) hours . 60 tablet 1 07/19/2021 Active hydrOXYzine hydrochloride 25 mg oral tablet (17 sources) Antihistamine Start: 09-22-2024 take 1 tablet by mouth three times daily Hydroxyzine Hcl 25 mg tablet Active 25 mg PO THREE TIMES A DAY September 22, 2024 12:00am Start: 05-03-2022 take 50 mg by mouth every twelve hours Hydroxyzine Hcl Active 50 MG PO Q12H May 03, 2022 12:00am Start: 07-19-2021 take 1 tablet by marco a th three times daily as needed hydrOXYzine (ATARAX) 50 MG tablet Indications: Anxiety Take 1 (one) tablet (50 mg total) by mouth 3 (three) times a day as needed for itching . 280 tablet 0 07/19/2021 Active Start: 04-19-2021 take 1 tablet by marco a th three times daily as needed hydrOXYzine (ATARAX) 50 MG tablet Indications: Anxiety Take 1 (one) tablet (50 mg total) by mouth 3 (three) times a day as needed for itching . 280 tablet 0 04/19/2021 Active Start: 05-12-2020 take 1 tablet by marco a th three times daily as needed hydrOXYzine (ATARAX) 50 MG tablet Take 1 (one) tablet (50 mg total) by mouth 3 (three) times a day as needed for itching . 270 tablet 0 05/12/2020 Active Start: 03-27-2020 End: 04-01-2020 take 50 mg by mouth three times daily as needed 50 mg, Oral, 3 times daily PRN, itching, Starting 03/27/20 at 1318 Start: 02-12-2020 take 1 tablet by marco a th three times daily as needed hydrOXYzine (ATARAX) 50 MG tablet Take 1 (one) tablet (50 mg total) by mouth 3 (three) times a day as needed for itching . 60 tablet 3 02/12/2020 Active End: 12-20-2016 take 1 tablet by mouth once daily as needed hydrOXYzine (ATARAX) 25 MG tablet Take 25 mg by mouth daily as needed for itching. 12/20/2016 Discontinued ammonium lactate 120 mg/ml topical lotion (11 sources) Start: 07-19-2021 ammonium lacta te (LAC-HYDRIN) 12 % lotion Apply topically 2 (two) times a day as needed for dry skin . 400 g 1 07/19/2021 Active Start: 08-24-2020 ammonium lacta te (LAC-HYDRIN) 12 % lotion Apply topically 2 (two) times a day as needed for dry skin . 400 g 0 08/24/2020 Active Start: 05-12-2020 ammonium lacta te (LAC-HYDRIN) 12 % lotion Apply topically 2 (two) times a day as needed for dry skin . 400 g 0 05/12/2020 Active Start: 03-19-2020 ammonium lacta te (LAC-HYDRIN) 12 % lotion Apply topically 2 (two) times a day as needed for dry skin . 400 g 0 03/19/2020 Active Start: 12-18-2016 ammonium lacta te (LAC-HYDRIN) 12 % lotion loperamide hydrochloride 2 mg oral capsule (15 sources) Opioid Agonist Start: 04-16-2023 take 1 capsule by mouth every eight hours as needed for diarrhea Loperamide (Imodium A-D) 2 mg capsule Active 2 mg PO Q8H as needed for DIARRHEA April 16, 2023 1:00am Start: 05-03-2022 take 2 mg by mouth e very six hours Loperamide Active 2 MG PO EVERY 6 HOURS May 03, 2022 12:00am loratadine 10 mg oral tablet (20 sources) Start: 07-26-2023 take 1 tablet by mouth once daily Loratadine (Allergy Relief (Loratadine)) 10 mg tablet Active 10 mg PO DAILY July 26, 2023 12:00am Start: 04-19-2021 End: 09-08-2022 take 1 tablet by mouth once daily Loratadine 10 mg Tablet Discontinued 10 mg PO DAILY May 03, 2022 1:00am May 05, 2022 6:38pm megestrol acetate 40 mg oral tablet (4 sources) Progestin megestrol (MEGAC E) 40 MG tablet Take 40 mg by mouth as needed . Active melatonin 5 mg oral capsule (10 sources) Start: 11-23-2023 take 1 capsule by mouth at bedtime Melatonin 5 mg capsule Active 5 mg PO AT BEDTIME November 23, 2023 12:00am Start: 04-20-2023 End: 07-26-2023 take 1 tablet by mouth at bedtime as needed Melatonin 3 mg Tablet Discontinued 3 mg PO AT BEDTIME NEEDED as needed for Insomnia 0 April 20, 2023 1:00am July 26, 2023 1:45pm menthol 100 mg/ml / methyl salicylate 150 mg/ml topical cream (7 sources) Start: 05-03-2022 Methyl Salicylate-Menthol (Muscle Rub) 15-10 % Cream Active 1 APPLIC TOPICAL TWICE A DAY May 03, 2022 12:00am midodrine hydrochloride 10 mg oral tablet (4 sources) alpha-Adrener gic Agonist Start: 09-22-2024 take 1 tablet by mouth once daily at bedtime Midodrine 10 mg tablet Active 10 mg PO THREE TIMES A DAY September 22, 2024 12:00am do not give last dose of day after 6PM or within 4 hrs of bedtime Start: 01-22-2024 End: 09-22-2024 take 2 tablets by mouth three times daily at mealtime Midodrine 5 mg Tablet Discontinued 10 mg PO 3 TIMES DAILY WITH MEALS 0 January 22, 2024 12:00am September 22, 2024 10:36am miscellaneous medical supply [facility] (5 sources) Start: 12-30-2020 miscellaneous medical supply [facility] Indications: Hypertensive heart disease with congestive heart failure, unspecified heart failure type (HCC) Use as directed. . 300 each 12/30/2020 Active montelukast 10 mg oral tablet (20 sources) Leukotriene Receptor Antagonist Start: 05-03-2022 take 1 tablet by mouth once daily Montelukast 10 mg Tablet Active 10 mg PO DAILY May 03, 2022 1:00am Start: 12-05-2021 take 1 tablet by marco a th once daily montelukast (SINGULAIR) 10 mg tablet Take 1 (one) tablet (10 mg total) by mouth daily . 90 tablet 0 12/05/2021 Active Start: 04-19-2021 take 1 tablet by marco a th once daily montelukast (SINGULAIR) 10 mg tablet Take 1 (one) tablet (10 mg total) by mouth daily . 90 tablet 0 04/19/2021 Active Start: 05-12-2020 take 1 tablet by marco a th once daily montelukast (SINGULAIR) 10 mg tablet Take 1 (one) tablet (10 mg total) by mouth daily . 90 tablet 0 05/12/2020 Active Start: 02-12-2020 take 1 tablet by marco a th once daily montelukast (SINGULAIR) 10 mg tablet Take 1 (one) tablet (10 mg total) by mouth daily . 30 tablet 3 02/12/2020 Active take 1 tablet by marco a th once daily montelukast (SINGULAIR) 10 mg tablet Take 10 mg by mouth daily. Active nystatin 100 unt/mg topical powder (20 sources) Polyene Antifungal Start: 01-22-2024 Nystatin (N yamyc) 100,000 unit/gram Powder Active 1 NMA TOPICAL THREE TIMES A DAY 0 January 22, 2024 12:00am Please contact the information source for Protocol details. Start: 05-05-2022 End: 04-16-2023 Nystatin (Nyamyc) 100,000 un it/gram powder Discontinued 1 NMA TOPICAL THREE TIMES A DAY May 14, 2022 2:00pm April 16, 2023 4:41pm Please contact the information source for Protocol details. Start: 05-05-2022 End: 04-16-2023 Nystatin (Nyamyc) 100,000 un it/gram powder Active 1 APPLIC TOPICAL THREE TIMES A DAY May 14, 2022 1:00pm Start: 05-05-2022 End: 05-14-2022 Start: 05-10-2021 End: 07-19-2022 nystatin (MYCOSTATIN) powder Apply topically 2 (two) times a day . 15 g 0 07/19/2021 07/19/2022 Active omeprazole 20 mg delayed release oral tablet (20 sources) Proton Pump Inhibitor Start: 05-03-2022 take 1 tablet by mouth once daily Omeprazole 20 mg Tablet,Delayed Release (Dr/Ec) Active 20 mg PO DAILY May 03, 2022 1:00am Start: 05-03-2022 take 20 mg by mouth twice haseeb y Omeprazole Active 20 MG PO TWICE A DAY May 03, 2022 12:00am ondansetron 4 mg oral tablet (16 sources) Serotonin-3 Receptor Antagonist Start: 07-26-2023 take 1 tablet by mouth every eight hours as needed for nausea and vomiting Ondansetron Hcl 4 mg tablet Active 4 mg PO Q8H as needed for nausea and vomiting July 26, 2023 12:00am Start: 05-03-2022 take 4 mg by mouth e very eight hours Ondansetron Active 4 MG PO Q8H May 03, 2022 12:00am Start: 04-19-2021 take 1 tablet by marco a th every eight hours as needed for nausea ondansetron (Zofran ODT) 4 MG disintegrating tablet Dissolve 1 (one) tablet (4 mg total) on top of tongue every 8 (eight) hours as needed for nausea . 30 tablet 1 04/19/2021 Active Start: 05-12-2020 take 1 tablet by marco a th every eight hours as needed ondansetron (Zofran ODT) 4 MG disintegrating tablet Dissolve 1 (one) tablet (4 mg total) on top of tongue every 8 (eight) hours as needed for nausea . 30 tablet 1 05/12/2020 Active Start: 02-12-2020 take 1 tablet by marco a th every eight hours as needed ondansetron (Zofran ODT) 4 MG disintegrating tablet Dissolve 1 (one) tablet (4 mg total) on top of tongue every 8 (eight) hours as needed for nausea . 30 tablet 1 02/12/2020 Active ostomy supplies (Skin Prep Wipes) [facility] (3 sources) Start: 12-14-2021 ostomy supplies (Skin Prep Wipes) [facility] Indications: Hypertensive heart disease with congestive heart failure, unspecified heart failure type (HCC) , Chronic respiratory failure with hypoxia and hypercapnia (HCC) , Oxygen dependent , Weakness Use as directed. . 100 each 5 12/14/2021 Active pantoprazole 20 mg delayed release oral tablet (12 sources) Proton Pump Inhibitor Start: 12-05-2021 take 1 tablet by mouth once daily pantoprazole (PROTONIX) 20 MG tablet Indications: Gastroesophageal reflux disease, unspecified whether esophagitis present Take 1 (one) tablet (20 mg total) by mouth daily . 90 tablet 0 12/05/2021 Active Start: 04-19-2021 take 1 tablet by marco a th once daily pantoprazole (PROTONIX) 20 MG tablet Indications: Gastroesophageal reflux disease, unspecified whether esophagitis present Take 1 (one) tablet (20 mg total) by mouth daily . 90 tablet 0 04/19/2021 Active Start: 05-12-2020 take 1 tablet by marco a th once daily pantoprazole (PROTONIX) 20 MG tablet Take 1 (one) tablet (20 mg total) by mouth daily . 90 tablet 0 05/12/2020 Active Start: 02-12-2020 End: 04-01-2020 take 20 mg by mouth once daily 20 mg, Oral, Daily, First dose on 03/27/20 at 1500 DO NOT CRUSH OR CHEW. Start: 12-19-2016 take 1 tablet by marco a th once daily pantoprazole (PROTONIX) 20 MG tablet Take 20 mg by mouth daily. 0 12/19/2016 Active potassium chloride 10 meq extended release oral tablet (20 sources) Start: 09-22-2024 Potassium Chlo ride 10 mEq capsule, extended release Active meq PO TWICE A DAY September 22, 2024 12:00am Start: 05-28-2022 Start: 01-14-2022 End: 02-13-2022 take 1 tablet by mouth three times daily potassium chloride SA (K-DUR,KLOR-CON) 10 MEQ tablet Take 1 (one) tablet (10 mEq total) by mouth 3 (three) times a day . 90 tablet 0 01/14/2022 Active Start: 04-19-2021 take 4 tablets by mo uth once daily potassium chloride 10 MEQ CR tablet Take 4 (four) tablets (40 mEq total) by mouth daily . 180 tablet 0 04/19/2021 Active Start: 02-12-2020 take 4 tablets by mo uth once daily potassium chloride 10 MEQ CR tablet Take 4 (four) tablets (40 mEq total) by mouth daily . 30 tablet 3 02/12/2020 Active Start: 11-17-2016 take 4 tablets by mo uth once daily, then take 1 tablet by mouth potassium chloride (K-DUR) 10 MEQ CR tablet Take 40 mEq by mouth daily. 0 11/17/2016 Active Roflumilast (20 sources) Phosphodiesterase 4 Inhibitor Start: 05-03-2022 take 1 tablet by mouth once daily Roflumilast (Daliresp) 500 mcg Tablet Active 500 ug PO DAILY May 03, 2022 1:00am Start: 05-03-2022 take 1 tablet by marco a th once daily Roflumilast (Daliresp) 500 mcg Tablet Active 500 MCG PO DAILY May 03, 2022 1:00am Start: 05-03-2022 take 1 tablet by marco a th once daily Roflumilast (Daliresp) 500 mcg Tablet Active 500 MCG PO DAILY May 03, 2022 12:00am Start: 12-05-2021 take 1 tablet by marco a th once daily roflumilast (DALIRESP) 500 mcg tablet Indications: Chronic obstructive pulmonary disease, unspecified COPD type (HCC) Take 1 (one) tablet (500 mcg total) by mouth daily . 90 tablet 0 12/05/2021 Active Start: 04-19-2021 take 1 tablet by marco a th once daily roflumilast (DALIRESP) 500 mcg tablet Indications: Chronic obstructive pulmonary disease, unspecified COPD type (HCC) Take 1 (one) tablet (500 mcg total) by mouth daily . 90 tablet 0 04/19/2021 Active Start: 02-12-2020 End: 04-01-2020 take 1 tablet by mouth once daily roflumilast (DALIRESP) 500 mcg tablet Indications: Chronic obstructive pulmonary disease, unspecified COPD type (HCC) Take 1 (one) tablet (500 mcg total) by mouth daily . 60 tablet 3 02/12/2020 Active take 1 tablet by marco a th once daily roflumilast (DALIRESP) 500 mcg tablet Take 500 mcg by mouth daily. Active sertraline 50 mg oral tablet (20 sources) Serotonin Reuptake Inhibitor Start: 04-16-2023 take 1 tablet by mouth once daily Sertraline 50 mg tablet Active 150 mg PO DAILY April 16, 2023 1:00am TAKE ONE 50MG AND ONE 100MG TABLET TOGETHER ONCE DAILY FOR A TOTAL DAILY DOSE OF 150MG. Start: 05-03-2022 End: 01-18-2024 take 2 tablets by mouth at bedtime, then take 2 tablets by mouth once at bedtime Sertraline (Zoloft) 100 mg Tablet Discontinued 200 mg PO AT BEDTIME May 03, 2022 1:00am January 18, 2024 6:11pm pt [facility] medication list has pt currently on 150mg tablet and 2 25mg tablets. totaling 200mg zoloft q hs Start: 05-03-2022 take 1 tablet by marco a th at bedtime Sertraline (Zoloft) 100 mg Tablet Active 100 MG PO AT BEDTIME May 03, 2022 1:00am TAKE ONE 50MG AND ONE 100MG TABLET TOGETHER ONCE DAILY FOR A TOTAL DAILY DOSE OF 150MG. Start: 05-03-2022 sodium phosphate, dibasic 59 .3 mg/ml / sodium phosphate, monobasic 161 mg/ml enema (5 sources) Start: 07-26-2023 Sodium Phospha boyd (Fleet Enema) 19-7 gram/118 mL enema Active 118 mL RC DAILY as needed for constipation July 26, 2023 12:00am USE FOR UP TO 2 EPISODES IF DULCOLAX SUPPOSITORY INEFFECTIVE. CALL PHYSICIAN IF NO BM FOR 4 DAYS Start: 07-26-2023 Sodium Phospha boyd (Fleet Enema) 19-7 gram/118 mL enema Active 118 ML RC DAILY July 26, 2023 12:00am USE FOR UP TO 2 EPISODES IF DULCOLAX SUPPOSITORY INEFFECTIVE. CALL PHYSICIAN IF NO BM FOR 4 DAYS Spiriva With Handihaler 18 McG And Inhalation Capsules (1 source) Start: 12-05-2016 SPIRIVA WITH H ANDIHALER 18 mcg inhalation capsule sucralfate 1000 mg oral tablet (20 sources) Aluminum Complex Start: 05-05-2022 Start: 05-03-2022 End: 05-05-2022 take 1 mL by mouth three times daily Sucralfate (Carafate) 100 mg/mL Suspension Discontinued 10 mL PO THREE TIMES A DAY May 03, 2022 1:00am May 05, 2022 6:39pm Start: 01-14-2022 End: 02-13-2022 take 1 tablet by mouth four times daily before mealtime sucralfate (CARAFATE) 1 gram tablet Take 1 (one) tablet (1 g total) by mouth 4 (four) times a day before meals . 120 tablet 0 01/14/2022 Active Start: 04-19-2021 take 10 mL by mouth four times daily before mealtime sucralfate (CARAFATE) 100 mg/mL suspension Indications: Gastroesophageal reflux disease, unspecified whether esophagitis present Take 10 mL (1 g total) by mouth 4 (four) times a day before meals . 414 mL 0 04/19/2021 Active Start: 05-12-2020 take 10 mL by mouth four times daily before mealtime sucralfate (CARAFATE) 100 mg/mL suspension Take 10 mL (1 g total) by mouth 4 (four) times a day before meals . 414 mL 3 05/12/2020 Active Start: 03-27-2020 End: 04-01-2020 1 g, Tube, 4 times daily bef ore meals, First dose on 03/27/20 at 1630 For per tube administration, dissolve tablet in 30 mL warm water, wait 30 seconds, then immediately administer. Start: 02-12-2020 take 10 mL by mouth four times daily before mealtime sucralfate (CARAFATE) 100 mg/mL suspension Take 10 mL (1 g total) by mouth 4 (four) times a day before meals . 414 mL 3 02/12/2020 Active take 1 g by mouth fo ur times daily before mealtime sucralfate (CARAFATE) 100 mg/mL suspension Take 1 g by mouth 4 (four) times a day before meals. Active topiramate 25 mg oral tablet (5 sources) Start: 04-18-2024 take 1 tablet by mouth once daily Topiramate 25 mg tablet Active 25 mg PO DAILY July 26, 2023 12:00am vitamin b12 2.5 mg oral tablet (5 sources) Vitamin B12 Start: 12-26-2021 take 1 tablet by mouth once daily cyanocobalamin, vitamin B-12, 2,500 mcg Tab Take 1 (one) tablet (2,500 mcg total) by mouth daily Start: 05/11/21 tablet 3 12/26/2021 Active Start: 05-11-2021 End: 06-10-2021 take 1 tablet by mouth once daily cyanocobalamin, vitamin B-12, 2,500 mcg Tab Take 1 (one) tablet (2,500 mcg total) by mouth daily Start: 05/11/21 tablet 3 05/11/2021 06/10/2021 Active Completed/Discontinued Medications Medication Drug Class(es) Dates Sig (Normalized) Sig (Original) acetaminophen 650 mg rectal suppository (20 sources) Start: 07-26-2023 End: 01-22-2024 Acetaminophen 650 mg suppository Discontinued 650 mg RC Q4H as needed for pain July 26, 2023 12:00am January 22, 2024 2:04pm Start: 04-20-2023 End: 07-26-2023 take 2 tablets by mouth every four hours as needed for pain Acetaminophen 325 mg Tablet Active 650 mg PO Q4H as needed for Fever, pain July 26, 2023 12:00am Start: 04-20-2023 End: 07-26-2023 take 650 mg by mouth every four hours Acetaminophen Active 650 MG PO Q4H July 26, 2023 12:00am Start: 05-03-2022 End: 04-16-2023 take 2 tablets by mouth every four hours as needed for pain Acetaminophen 325 mg Tablet Discontinued 650 mg PO EVERY 4 HOURS NEEDED as needed for Pain May 03, 2022 1:00am April 16, 2023 4:41pm Start: 05-03-2022 End: 04-16-2023 take 650 mg by mouth every four hours as needed Acetaminophen Discontinued 650 MG PO EVERY 4 HOURS NEEDED May 03, 2022 1:00am April 16, 2023 4:41pm Start: 05-03-2022 Start: 03-29-2020 End: 04-01-2020 take 1 tablet by mouth every four hours as needed acetaminophen (TYLENOL) tablet 650 mg acetaZOLAMIDE 250 mg oral tablet (1 source) Carbonic Anhydrase Inhibitor Start: 03-30-2020 End: 03-30-2020 acetaZOLAMIDE (DIAMOX) tablet 250 mg ALPRAZolam 0.25 mg oral tablet (1 source) Benzodiazepine Start: 03-28-2020 End: 04-01-2020 ALPRAZolam (XANAX) tablet 0.25 mg azithromycin 250 mg oral tablet (4 sources) Macrolide Antimicrobial Start: 02-18-2024 End: 05-20-2024 Azithromycin 250 mg tablet Discontinued 0 PO .COMPLEX February 18, 2024 1:00am May 20, 2024 9:58am For 250 mg dose pack: take 500 mg today (day 1), then 250 mg for 4 days (days 2-5) Start: 03-19-2020 End: 04-01-2020 take 2 tablets by mouth once daily, then take 1 tablet by mouth, then take 1 tablet by mouth once daily azithromycin (Z-SALMA) 5 day dose pack Take 2 tablets PO on day one then 1 tablet PO daily for 4 days . 6 tablet 0 03/19/2020 04/01/2020 Discontinued (Stop Taking at Discharge) benzonatate 100 mg oral capsule (20 sources) Non-narcotic Antitussive Start: 05-03-2022 End: 05-05-2022 take 1 capsule by mouth every eight hours as needed for cough Benzonatate (Tessalon Perles) 100 mg Capsule Discontinued 100 mg PO Q8H as needed for Cough May 03, 2022 1:00am May 05, 2022 6:37pm Start: 05-12-2020 take 1 capsule by mo uth three times daily as needed for cough benzonatate (TESSALON) 200 MG capsule Take 1 (one) capsule (200 mg total) by mouth 3 (three) times a day as needed for cough . 270 capsule 0 05/12/2020 Active Start: 03-19-2020 take 1 capsule by mo uth three times daily as needed for cough benzonatate (TESSALON) 200 MG capsule Take 1 (one) capsule (200 mg total) by mouth 3 (three) times a day as needed for cough . 90 capsule 0 03/19/2020 Active take 1 capsule by mo uth three times daily as needed for cough benzonatate (TESSALON) 200 MG capsule Take 200 mg by mouth 3 (three) times a day as needed for cough. Active cefdinir 300 mg oral capsule (14 sources) Cephalosporin Antibacterial Start: 09-12-2022 End: 04-16-2023 take 1 capsule by mouth every twelve hours Cefdinir 300 mg Capsule Discontinued 300 mg PO EVERY 12 HOURS 0 3 September 12, 2022 12:00am April 16, 2023 4:41pm cephalexin 500 mg oral capsule (20 sources) Cephalosporin Antibacterial Start: 05-05-2022 End: 05-16-2022 take 1 capsule by mouth three times daily Cephalexin 500 mg capsule Discontinued 500 mg PO THREE TIMES A DAY May 14, 2022 2:00pm May 16, 2022 1:21pm start on 05/06/22 cyclobenzaprine hydrochloride 10 mg oral tablet (20 sources) Muscle Relaxant Start: 05-03-2022 End: 04-20-2023 take 1 tablet by mouth three times daily Cyclobenzaprine 10 mg Tablet Discontinued 10 mg PO THREE TIMES A DAY May 03, 2022 1:00am April 20, 2023 10:32am Start: 09-20-2021 take 1 tablet by [facility] three times daily as needed for muscle spasms cyclobenzaprine (FLEXERIL) 10 MG tablet Indications: Muscle spasms of both lower extremities Take 1 (one) tablet (10 mg total) by mouth 3 (three) times a day as needed for muscle spasms . 30 tablet 0 09/20/2021 Active dexamethasone 6 mg oral tablet (4 sources) Corticosteroid Start: 11-28-2023 End: 01-18-2024 take 1 tablet by mouth once daily Dexamethasone 6 mg tablet Discontinued 6 mg PO DAILY November 28, 2023 12:00am January 18, 2024 6:07pm Start: 03-27-2020 End: 03-27-2020 dexamethasone (DECADRON) inj ection 10 mg doxycycline monohydrate 100 mg oral capsule (3 sources) Tetracycline-class Drug Start: 01-18-2024 End: 01-22-2024 take 1 capsule by mouth once daily Doxycycline Monohydrate 100 mg capsule Discontinued 100 mg PO DAILY January 18, 2024 12:00am January 22, 2024 2:05pm ergocalciferol 1.25 mg oral capsule (20 sources) Provitamin D2 Compound Start: 05-03-2022 End: 04-16-2023 Ergocalciferol (Vitamin D2) (Vitamin D2) 1,250 mcg (50,000 unit) Capsule Discontinued 1250 ug PO SA May 03, 2022 1:00am April 16, 2023 4:41pm Start: 05-03-2022 fluticasone propionate 0.05 mg/actuat metered dose nasal spray (20 sources) Corticosteroid Start: 05-03-2022 End: 01-22-2024 Fluticasone Propionate 50 mcg/actuation [place],Suspension Discontinued 2 NMA INTRANASAL TWICE A DAY as needed for NASAL CONGESTION May 03, 2022 1:00am January 22, 2024 2:05pm Start: 05-03-2022 Fluticasone Pr opionate Active 2 SPRAY INTRANASAL TWICE A DAY May 03, 2022 1:00am Start: 05-03-2022 Start: 06-17-2020 End: 06-17-2021 take 2 spray(s) nasal route once daily fluticasone propionate (FLONASE) 50 mcg/actuation nasal spray Instill 2 (two) sprays into each nostril daily . 16 g 12 06/17/2020 Active levoFLOXacin 750 mg oral tablet (7 sources) Quinolone Antimicrobial Start: 01-22-2024 End: 02-18-2024 take 1 tablet by mouth once daily Levofloxacin 750 mg Tablet Discontinued 750 mg PO DAILY 0 January 22, 2024 12:00am February 18, 2024 8:30am Continue for 3 days starting 01/23/2024 Start: 06-01-2020 take 1 tablet by mouth once [place] levoFLOXacin (LEVAQUIN) 500 MG tablet Take 1 (one) tablet (500 mg total) by mouth daily . 5 tablet 0 06/01/2020 Active Start: 04-01-2020 End: 04-05-2020 take 1 tablet by mouth once daily levoFLOXacin (LEVAQU IN) 500 MG tablet Take 1 (one) tablet (500 mg total) by mouth daily for 4 days . 4 tablet 0 04/01/2020 04/05/2020 Active Start: 03-27-2020 End: 04-01-2020 take 750 mg intravenous route every twenty-four hours 750 mg, Intravenous, at 100 mL/hr, Every 24 hours, First dose (after last reorder) on 03/28/20 at 0000 Indication: Community Acquired Pneumonia (CAP) lidocaine 0.04 mg/mg medicated patch (20 sources) Antiarrhythmic, Amide Local Anesthetic Start: 05-03-2022 End: 04-16-2023 Lidocaine 4 % Adhesive Patch,Medicated Discontinued 1 NMA TOPICAL DAILY as needed for Pain May 03, 2022 1:00am April 16, 2023 4:41pm APPLY TO BOTH SHOULDERS 1 ml LORazepam 2 mg/ml injection (1 source) Benzodiazepine Start: 03-27-2020 End: 03-27-2020 LORazepam (ATIVAN) injection 1 mg losartan potassium 50 mg oral tablet (20 sources) Angiotensin 2 Receptor [place] Start: 05-03-2022 End: 01-22-2024 take 1 tablet by mouth once daily Losartan 50 mg Tablet Discontinued 50 mg PO DAILY May 03, 2022 1:00am January 22, 2024 2:08pm Start: 12-05-2021 take 1 tablet by marco a th once daily losartan (COZAAR) 50 MG tablet Indications: Essential hypertension, benign Take 1 (one) tablet (50 mg total) by mouth daily . 90 tablet 0 12/05/2021 Active Start: 04-19-2021 take 1 tablet by marco a th once daily losartan (COZAAR) 50 MG tablet Indications: Essential hypertension, benign Take 1 (one) tablet (50 mg total) by mouth daily . 90 tablet 0 04/19/2021 Active Start: 05-12-2020 take 1 tablet by marco a th once daily losartan (COZAAR) 50 MG tablet Indications: Essential hypertension, benign Take 1 (one) tablet (50 mg total) by mouth daily . 90 tablet 0 05/12/2020 Active Start: 02-12-2020 End: 04-01-2020 take 50 mg by mouth once daily at lunch 50 mg, Oral, Daily with lunch, First dose on 03/27/20 at 1500 take 1 tablet by marco a th once daily losartan (COZAAR) 50 MG tablet Take 50 mg by mouth daily. Active Menthol / Zinc Oxide (20 sources) Start: 07-26-2023 End: 01-22-2024 Menthol-Zinc Oxide (Calmosep diane) 0.44-20.6 % Ointment Discontinued 1 NMA TOPICAL 4 TIMES DAILY July 26, 2023 12:00am January 22, 2024 2:08pm APPLY TO BUTTOCK 4 TIMES A DAY FOR EXCORIATION Please contact the information source for Protocol details. Start: 07-26-2023 Menthol-Zinc O xide (Calmoseptine) 0.44-20.6 % Ointment Active 1 APPLIC TOPICAL 4 TIMES DAILY July 26, 2023 12:00am APPLY TO BUTTOCK 4 TIMES A DAY FOR EXCORIATION Start: 04-20-2023 End: 07-26-2023 Menthol-Zinc Oxide (Calmosep diane) 0.44-20.6 % Ointment Discontinued 1 NMA TOPICAL 4 TIMES DAILY 0 April 20, 2023 1:00am July 26, 2023 1:47pm Please contact the information source for Protocol details. Start: 04-20-2023 End: 07-26-2023 Menthol-Zinc Oxide (Calmosep diane) 0.44-20.6 % Ointment Discontinued 1 APPLIC TOPICAL 4 TIMES DAILY 0 April 20, 2023 1:00am July 26, 2023 1:47pm Start: 04-20-2023 Menthol-Zinc O xide (Calmoseptine) 0.44-20.6 % Ointment Active 1 APPLIC TOPICAL 4 TIMES DAILY 0 April 20, 2023 12:00am Start: 05-14-2022 Menthol-Zinc O xide (Calmoseptine) 0.44-20.6 % ointment Active 1 APPLIC TOPICAL TWICE A DAY May 14, 2022 1:00pm Start: 05-05-2022 End: 05-14-2022 Menthol-Zinc Oxide (Calmosep diane) 0.44-20.6 % Ointment Discontinued 1 NMA TOPICAL TWICE A DAY 0 May 05, 2022 1:00am May 14, 2022 2:00pm Please contact the information source for Protocol details. Start: 05-05-2022 End: 05-14-2022 Menthol-Zinc Oxide (Calmosep diane) 0.44-20.6 % Ointment Discontinued 1 APPLIC TOPICAL TWICE A DAY 0 May 05, 2022 1:00am May 14, 2022 2:00pm Start: 05-05-2022 End: 05-14-2022 Menthol-Zinc Oxide (Calmosep diane) 0.44-20.6 % Ointment Discontinued 1 APPLIC TOPICAL TWICE A DAY 0 May 05, 2022 12:00am May 14, 2022 1:00pm Start: 05-05-2022 Menthol-Zinc O xide (Calmoseptine) 0.44-20.6 % Ointment Active 1 APPLIC TOPICAL TWICE A DAY 0 May 05, 2022 12:00am methylPREDNISolone 125 mg injection (3 sources) Corticosteroid Start: 03-27-2020 End: 04-01-2020 methylPREDNISolone sod suc(PF) (SOLU-medrol) Injection 60 mg Start: 02-12-2017 End: 02-12-2017 methylPREDNISolone sod suc(P F) (SOLU-medrol) Injection 125 mg 125 mg, Intravenous, Once, 02/12/17 at 0535, For 1 dose Given 02/12/2017 05:57 EST 125 mg naloxone (NARCAN) injection 0.1 mg (1 source) Start: 03-27-2020 End: 04-01-2020 naloxone (NARCAN) injection 0.1 mg predniSONE 20 mg oral tablet (20 sources) Corticosteroid Start: 01-18-2024 End: 05-20-2024 Prednisone 20 mg tablet Discontinued 20 mg PO DAILY January 22, 2024 2:19pm May 20, 2024 9:58am 1 tablet daily for 3 days, then 1/2 tablet daily for 3 days, then stop medication Start: 04-16-2023 End: 11-28-2023 take 1 tablet by mouth once daily Prednisone 10 mg tablet Discontinued 10 mg PO DAILY April 16, 2023 1:00am November 28, 2023 11:04am Start: 09-08-2022 End: 04-16-2023 take 10 mg by mouth once daily Prednisone 20 mg tablet Discontinued 10 mg PO DAILY September 08, 2022 2:50am April 16, 2023 4:30pm Start: 05-30-2022 End: 09-08-2022 take 2 tablets by mouth once daily Prednisone 20 mg tablet Discontinued 40 mg PO DAILY 10 May 30, 2022 1:00am September 08, 2022 2:50am Start: 05-30-2022 End: 06-02-2023 take 40 mg by mouth once daily Prednisone Discontinued 40 MG PO DAILY 10 5 May 30, 2022 1:00am September 08, 2022 2:50am Start: 05-30-2022 End: 04-16-2023 take 10 mg by mouth once daily Prednisone Active 10 MG PO DAILY September 08, 2022 1:50am Start: 04-01-2020 End: 04-11-2020 take 3 tablets by mouth once daily predniSONE (DELTASONE) 10 MG tablet Take 3 (three) tablets (30 mg total) by mouth daily for 10 days . 25 tablet 0 04/01/2020 04/11/2020 Active Start: 02-12-2017 End: 02-17-2017 take 6 tablets by mouth once daily predniSONE (DELTASONE) 10 MG tablet Take 6 (six) tablets (60 mg total) by mouth daily for 5 days. 30 tablet 0 02/12/2017 02/17/2017 Active Sodium Chloride (4 sources) Start: 03-29-2020 End: 04-01-2020 sodium chloride (PF) (NS) fl ush 5 mL Start: 03-27-2020 End: 03-29-2020 take 50 mL intravenous route every hour 50 mL/hr, Intravenous, Continuous, Starting 03/27/20 at 1415 Start: 03-27-2020 End: 03-27-2020 sodium chloride 0.9% (NS) Start: 03-27-2020 End: 03-27-2020 sodium chloride 0.9 % (NS) infusion - ADS Override Pull spironolactone 25 mg oral tablet (20 sources) Aldosterone Antagonist Start: 04-16-2023 End: 04-20-2023 Spironolactone 25 mg tablet Discontinued 12.5 mg PO DAILY April 16, 2023 1:00am April 20, 2023 10:32am Start: 04-16-2023 End: 04-20-2023 take 12.5 mg by mouth once daily Spironolactone Discontinued 12.5 MG PO DAILY April 16, 2023 1:00am April 20, 2023 10:32am Start: 05-03-2022 End: 05-05-2022 take 1 tablet by mouth once daily Spironolactone 50 mg Tablet Discontinued 50 mg PO DAILY May 03, 2022 1:00am May 05, 2022 6:37pm 60 actuat tiotropium 0.0025 mg/actuat inhalation spray (20 sources) Anticholinergic Start: 05-03-2022 End: 04-16-2023 take 2.5 ug by inhalation at bedtime Tiotropium [place] (Spiriva Respimat) 2.5 mcg/actuation Mist Discontinued 2 NMA INHALATION AT BEDTIME May 03, 2022 1:00am April 16, 2023 4:41pm Start: 05-03-2022 End: 04-16-2023 take 1 puff(s) by inhalation at bedtime Tiotropium [place] (Spiriva Respimat) 2.5 mcg/actuation [place] Discontinued 2 PUFF INHALATION AT BEDTIME May 03, 2022 1:00am April 16, 2023 4:41pm Start: 05-03-2022 Start: 01-25-2022 tiotropium bro m[place] (Spiriva Respimat) 2.5 mcg/actuation [place] Indications: Chronic obstructive pulmonary disease, unspecified COPD type (HCC) Two inhalations once daily . 4 g 3 01/25/2022 Active Start: 04-19-2021 tiotropium bro mide (Spiriva Respimat) 2.5 mcg/actuation [place] Indications: Chronic obstructive pulmonary disease, unspecified COPD type (HCC) Two inhalations once daily . 2.5 g 0 04/19/2021 Active Start: 05-12-2020 tiotropium [place] m[place] (Spiriva Respimat) 2.5 mcg/actuation [place] Two inhalations once daily . 2.5 g 3 05/12/2020 Active Start: 02-12-2020 tiotropium bro mide (Spiriva Respimat) 2.5 mcg/actuation [place] Two inhalations once daily . 2.5 g 3 02/12/2020 Active Start: 12-05-2016 SPIRIVA WITH H ANDIHALER 18 mcg inhalation capsule Start: 12-05-2016 SPIRIVA WITH H ANDIHALER 18 mcg inhalation capsule traMADol hydrochloride 50 mg oral tablet (20 sources) Opioid Agonist Start: 05-03-2022 End: 05-05-2022 take 1 tablet by mouth every eight hours as needed Tramadol 50 mg Tablet Discontinued 50 mg PO Q8H as needed for MUSCLE WEAKNESS May 03, 2022 1:00am May 05, 2022 6:37pm traZODone hydrochloride 50 mg oral tablet (5 sources) Serotonin Reuptake Inhibitor Start: 07-26-2023 End: 09-22-2024 take 1 tablet by mouth at bedtime Trazodone 50 mg tablet Discontinued 50 mg PO AT BEDTIME July 26, 2023 12:00am September 22, 2024 10:37am water 1000 mg/ml irrigation solution (1 source) Start: 03-30-2020 End: 03-30-2020 sterile water irrigation solution - ADS Override Pull (20 sources) Start: 05-05-2022 End: 05-14-2022 Start: 05-03-2022 Problems Active Problems Problem Classification Problem Date Documented Da te Episodic/Chronic Acute bronchitis (10 sources) Respiratory syncytial virus bronchitis; Translations: [Acute bronchitis due to respiratory syncytial virus] 04-16-2023 Episodic Chronic obstructive pulmonary disease and bronchiectasis (20 sources) Mild chronic obstructive pulmonary disease; Translations: [Acute exacerbation of chronic obstructive airways disease] Onset: 04-07-2014 Resolved: 06-17-2020 07-26-2015 Chronic Congestive heart failure; nonhypertensive (10 sources) Heart failure, unspecified; Translations: [Heart failure] Onset: 11-10-2016 10-31-2019 Chronic Deficiency and other anemia (3 sources) Anemia, unspecified; Translations: [ANEMIA UNSPECIFIED] Onset: 11-10-2016 Episodic Diabetes mellitus with complications (1 source) Type 1 diabetes mellitus with hyperglycemia; Translations: [Type 1 diabetes mellitus with hyperglycemia] Onset: 02-19-2024 Chronic Diseases of white blood cells (16 sources) Leukocytosis; Translations: [Elevated white blood cell count, unspecified] 09-08-2022 Chronic Disorders of lipid metabolism (12 sources) Mixed hyperlipidemia; Translations: [Mixed hyperlipidemia] Onset: 07-01-2020 07-01-2020 Chronic E Codes: Fall (3 sources) Fall in home; Translations: [Unspecified fall, initial encounter] Onset: 01-12-2022 01-12-2022 Episodic Essential hypertension (6 sources) Benign essential hypertension; Translations: [Essential (primary) hypertension] Onset: 10-31-2019 10-31-2019 Chronic Fluid and electrolyte disorders (20 sources) Acidosis; Translations: [Hypokalemia] Onset: 10-30-2016 10-30-2016 Episodic Fracture of lower limb (18 sources) Displaced fracture of medial malleolus of right tibia, subsequent encounter for closed fracture with routine healing; Translations: [Other fracture of upper and lower end of right fibula, subsequent encounter for closed fracture with delayed healing] Onset: 01-12-2022 Episodic Hypertension with complications and secondary hypertension (13 sources) Hypertensive heart disease with congestive heart failure; Translations: [Hypertensive heart disease with heart failure] Onset: 12-21-2016 12-21-2016 Chronic Nausea and vomiting (3 sources) Vomiting; Translations: [Vomiting, unspecified] 02-26-2024 Episodic Open wounds of extremities (2 sources) Laceration without foreign body of left lesser toe(s) without damage to nail, initial encounter; Translations: [Laceration without foreign body of left lesser toe(s) without damage to nail, initial encounter] Onset: 01-12-2022 Episodic Other circulatory disease (5 sources) H/O: hypertension; Translations: [Personal history of other diseases of the circulatory system] 07-26-2023 Episodic Other circulatory disease (2 sources) Personal history of other diseases of the circulatory system; Translations: [Personal history of other diseases of circulatory system] 07-26-2023 Episodic Other circulatory disease (3 sources) Low blood pressure; Translations: [Hypotension, unspecified] 01-30-2024 Episodic Other female genital disorders (11 sources) Simple endometrial hyperplasia; Translations: [Benign endometrial hyperplasia] Onset: 08-04-2015 08-04-2015 Chronic Other gastrointestinal disorders (7 sources) Irritable bowel syndrome; Translations: [Irritable bowel syndrome without diarrhea] Onset: 10-31-2019 10-31-2019 Chronic Other gastrointestinal disorders (1 source) Irritable bowel syndrome with diarrhea; Translations: [Irritable bowel syndrome with diarrhea] Onset: 11-29-2023 Chronic Other gastrointestinal disorders (19 sources) Diarrhea, unspecified; Translations: [Diarrhea] Onset: 11-05-2016 05-03-2022 Episodic Other gastrointestinal disorders (20 sources) Diarrhea; Translations: [Diarrhea, unspecified] Onset: 11-09-2016 10-31-2019 Episodic Other hematologic conditions (5 sources) History of anemia; Translations: [Personal history of diseases of the blood and blood-forming organs and certain disorders involving the immune mechanism] 07-26-2023 Episodic Other hematologic conditions (2 sources) Personal history of diseases of the blood and blood-forming organs and certain disorders involving the immune mechanism; Translations: [Personal history of diseases of blood and blood-forming organs] 07-26-2023 Episodic Other lower respiratory disease (20 sources) Dyspnea; Translations: [Dyspnea on exertion] Onset: 03-12-2014 07-26-2015 Episodic Other lower respiratory disease (13 sources) Other abnormalities of breathing; Translations: [Other respiratory abnormalities] Onset: 05-09-2021 Episodic Other lower respiratory disease (20 sources) Hypoxia; Translations: [Hypoxemia] 05-03-2022 Episodic Comment on above: Acute on chronic hyp oxia Other lower respiratory disease (20 sources) Hypoxemia; Translations: [Hypoxemia] 05-03-2022 Episodic Other lower respiratory disease (20 sources) Hypercapnia; Translations: [Other abnormalities of breathing] 05-28-2022 Episodic Other lower respiratory disease (11 sources) History of chronic obstructive airway disease; Translations: [Personal history of other diseases of the respiratory system] 07-26-2023 Episodic Other lower respiratory disease (3 sources) Single lobe lung infiltrate; Translations: [Other nonspecific abnormal finding of lung field] 02-26-2024 Episodic Other nervous system disorders (20 sources) Metabolic encephalopathy; Translations: [Metabolic encephalopathy] 05-29-2022 Chronic Other nervous system disorders (10 sources) Metabolic encephalopathy; Translations: [Metabolic encephalopathy] 05-30-2022 Chronic Other nervous system disorders (4 sources) Disorder of brain; Translations: [Encephalopathy, unspecified] 07-26-2023 Chronic Other nervous system disorders (1 source) Encephalopathy, unspecified; Translations: [Encephalopathy, unspecified] 07-27-2023 Chronic Other nervous system disorders (5 sources) H/O: respiratory disease; Translations: [Personal history of other diseases of the nervous system and sense organs] 07-26-2023 Episodic Other nervous system disorders (2 sources) Personal history of other diseases of the nervous system and sense organs; Translations: [Obstructive sleep apnea (adult)(pediatric)] 07-26-2023 Episodic Other non-traumatic joint disorders (1 source) Ankle pain; Translations: [Pain in right ankle and joints of right foot] Episodic Other non-traumatic joint disorders (2 sources) Pain in right ankle and joints of right foot; Translations: [Pain in right ankle and joints of right foot] Onset: 02-14-2022 Episodic Other nutritional; endocrine; and metabolic disorders (20 sources) Morbid obesity; Translations: [Hypomagnesemia] Onset: 08-02-2015 08-02-2015 Chronic Other nutritional; endocrine; and metabolic disorders (7 sources) Morbid (severe) obesity due to excess calories; Translations: [Morbid obesity] Onset: 12-05-2023 04-16-2023 Chronic Other nutritional; endocrine; and metabolic disorders (6 sources) Body mass index 40+ - severely obese; Translations: [Morbid (severe) obesity due to excess calories] 05-20-2024 Chronic Other nutritional; endocrine; and metabolic disorders (1 source) Body mass index (BMI) 45.0-49.9, adult; Translations: [Body mass index [BMI] 45.0-49.9, adult] Onset: 05-20-2024 Chronic Other nutritional; endocrine; and metabolic disorders (5 sources) H/O: obesity; Translations: [Personal history of other endocrine, nutritional and metabolic disease] 07-26-2023 Episodic Other nutritional; endocrine; and metabolic disorders (2 sources) Personal history of other endocrine, nutritional and metabolic disease; Translations: [Personal history of other specified diseases] 07-26-2023 Episodic Other screening for suspected conditions (not mental disorders or infectious disease) (18 sources) Patient encounter status; Translations: [Encounter for screening, unspecified] Onset: 07-07-2024 01-17-2023 Episodic Residual codes; unclassified (20 sources) Obstructive sleep apnea syndrome; Translations: [Obstructive sleep apnea (adult) (pediatric)] 05-14-2022 Chronic Residual codes; unclassified (5 sources) Obstructive sleep apnea (adult) (pediatric); Translations: [Obstructive sleep apnea (adult)(pediatric)] 05-16-2022 Chronic Residual codes; unclassified (1 source) Pain; Translations: [Pain] Episodic Residual codes; unclassified (5 sources) Disturbance of consciousness; Translations: [Transient alteration of awareness] 04-16-2023 Episodic Residual codes; unclassified (5 sources) Transient alteration of awareness; Translations: [Other alteration of consciousness] 04-16-2023 Episodic Residual codes; unclassified (3 sources) Altered mental status; Translations: [Altered mental status, unspecified] 01-30-2024 Episodic Residual codes; unclassified (2 sources) Confusional state; Translations: [Disorientation, unspecified] 09-22-2024 Episodic Respiratory failure; insufficiency; arrest (20 sources) Chronic respiratory failure; Translations: [Chronic respiratory failure with hypoxia] Onset: 10-31-2019 10-31-2019 Chronic Respiratory failure; insufficiency; arrest (adult) (1 source) Acute on chronic hypoxemic and hypercapnic respiratory failure; Translations: [Acute on chronic respiratory failure with hypoxia and hypercapnia (HCC)] Substance-related disorders (12 sources) Smoker; Translations: [Nicotine dependence, unspecified, uncomplicated] Onset: 12-21-2016 12-21-2016 Chronic Thyroid disorders (1 source) Hypothyroidism, unspecified; Translations: [Hypothyroidism, unspecified] Onset: 05-02-2024 Chronic Unclassified (2 sources) Long-term current use of drug therapy; Translations: [Other termite control servicer (current) drug therapy] Onset: 11-10-2016 10-31-2019 Unclassified (1 source) Other acidosis; Translations: [Other acidosis] Onset: 12-05-2023 Urinary tract infections (20 sources) Urinary tract infectious disease; Translations: [Urinary tract infection, site not specified] 05-03-2022 Episodic Comment on above: E. coli Viral infection (3 sources) Disease caused by 2019-nCoV; Translations: [COVID-19] 12-06-2023 Episodic Viral infection (2 sources) COVID-19; Translations: [COVID-19] Onset: 12-05-2023 Past or Other Problems Problem Classification Problem Date Documented Date Episodic/Chronic Acute and unspecified renal failure (20 sources) Injury of kidney; Translations: [Acute kidney failure, unspecified] Onset: 02-19-2024 05-03-2022 Episodic Cardiac dysrhythmias (2 sources) Tachycardia, unspecified; Translations: [Tachycardia, unspecified] Onset: 05-09-2021 Episodic Deficiency and other anemia (7 sources) Anemia; Translations: [Anemia, unspecified] Onset: 11-10-2016 10-31-2019 Episodic Heart valve disorders (7 sources) Heart murmur; Translations: [Cardiac murmur, unspecified] Onset: 10-31-2019 10-31-2019 Episodic Malaise and fatigue (9 sources) Asthenia; Translations: [Weakness] Onset: 05-09-2021 05-09-2021 Episodic Menopausal disorders (11 sources) Postmenopausal bleeding; Translations: [Postmenopausal bleeding] Onset: 07-19-2015 Resolved: 08-10-2015 08-10-2015 Chronic Nonspecific chest pain (12 sources) Chest pain at rest; Translations: [Chest pain, unspecified] Onset: 12-21-2016 12-21-2016 Episodic Other aftercare (3 sources) Other termite control servicer (current) drug therapy; Translations: [OTH LEGAL EXECUTIVE ASSISTANT CURRENT DRUG THERAPY] Onset: 11-08-2016 Episodic Other aftercare (2 sources) Long-term current use of drug therapy; Translations: [Other correction (current) drug therapy] Onset: 11-10-2016 10-31-2019 Episodic Other infections (1 source) Infestation by bed bug Episodic Other lower respiratory disease (10 sources) Dyspnea on exertion; Translations: [Dyspnea, unspecified] Onset: 12-21-2016 12-21-2016 Episodic Other lower respiratory disease (2 sources) Tachypnea, not elsewhere classified; Translations: [Tachypnea, not elsewhere classified] Onset: 05-09-2021 Episodic Other lower respiratory disease (3 sources) Personal history of other diseases of the respiratory system; Translations: [Personal history of other diseases of respiratory system] Onset: 05-20-2024 07-26-2023 Episodic Other lower respiratory disease (1 source) Shortness of breath; Translations: [Shortness of breath] Onset: 05-20-2024 Episodic Other nutritional; endocrine; and metabolic disorders (1 source) Abnormal weight loss; Translations: [Abnormal weight loss] Onset: 03-19-2024 Episodic Pneumonia (except that caused by tuberculosis or sexually transmitted disease) (20 sources) Pneumonia; Translations: [Pneumonia, unspecified organism] Onset: 12-05-2023 05-28-2022 Episodic Residual codes; unclassified (7 sources) Insomnia; Translations: [Insomnia, unspecified] Onset: 10-31-2019 10-31-2019 Episodic Residual codes; unclassified (1 source) Altered mental status, unspecified; Translations: [Altered mental status, unspecified] Onset: 01-23-2024 Episodic Respiratory failure; insufficiency; arrest (adult) (20 sources) Acute respiratory acidosis; Translations: [Acute respiratory failure with hypercapnia] Onset: 10-30-2016 10-30-2016 Episodic Septicemia (except in labor) (10 sources) Sepsis; Translations: [Sepsis, unspecified organism] Onset: 11-11-2020 Resolved: 09-20-2021 11-11-2020 Episodic Shock (1 source) Severe sepsis with septic shock; Translations: [Severe sepsis with septic shock] Onset: 01-23-2024 Episodic Results Test Name Value Interpretation Reference Range Facility Cardiology Visit Reporton Cardiology Visit Report Normal [facility] Anion gap in Serum or Plasma Ordered By: Heath Macario on 07-21-2024 Anion gap [Moles/Vol] 9 mmol/L 08-21 [facility] BUN/creatinine ratioOrdered By: Heath Macario on 07-21-2024 Urea nitrogen/Creatinine [Mass ratio] 27.3 mg/mg High 01-26 [facility] Basic Metabolic Profile (BMP )on 07-21-2024 BUN/CRE 27.3 RATIO High 01-26 [facility] Comment on above: Order Comment: 512.1 Performed By: #### L 500.2500 ####[facility] [address] [place], [address] Calcium [Mass/Vol] 10.5 mg/dL Normal 7.6-11.0 [facility] Comment on above: Order Comment: 512.1 Performed By: #### L 500.2500 ####[facility] [address] [place], [address] Chloride [Moles/Vol] 94 mmol/L Low 98-108 [facility] Comment on above: Order Comment: 512.1 Performed By: #### L 500.2500 ####[facility] [address] [place], [address] CO2 [Moles/Vol] 37.4 mmol/L High 21.0-32.0 [facility] Comment on above: Order Comment: 512.1 Performed By: #### L 500.2500 ####[facility] [address] [place], [address] Creatinine [Mass/Vol] 0.54 mg/dL Low 0.70-1.20 [facility] Comment on above: Order Comment: 512.1 Performed By: #### L 500.2500 ####[facility] [address] [place], [address] GAP 9 Normal 5-15 [facility] Comment on above: Order Comment: 512.1 Performed By: #### L 500.2500 ####[facility] [address] [place], [address] GFR/1.73 sq M.predicted among non-blacks MDRD (S/P/Bld) [Vol rate/Area] 104 mL/min/{1.73_m2} Normal >60 [facility] Comment on above: Order Comment: 512.1 Result Comment: mL/m in/1.73m2 CKD-EPI Creatinine Equation (2020) Performed By: #### L 500.2500 ####[facility] [address] [place], [address] Glucose [Mass/Vol] 107 mg/dL High 70-99 [facility] Comment on above: Order Comment: 512.1 Performed By: #### L 500.2500 ####[facility] [address] [place], [address] Potassium [Moles/Vol] 3.5 mmol/L Normal 3.3-5.1 [facility] Comment on above: Order Comment: 512.1 Performed By: #### L 500.2500 ####[facility] [address] [place], [address] Sodium [Moles/Vol] 140 mmol/L Normal 133-145 [facility] Comment on above: Order Comment: 512.1 Performed By: #### L 500.2500 ####[facility] [address] [place], [address] Urea nitrogen [Mass/Vol] 15 mg/dL Normal 4-19 [facility] Comment on above: Order Comment: 512.1 Performed By: #### L 500.6028 ####[facility] [address] [place], [address] Carbon dioxide, total [Moles /volume] in Central venous bloodOrdered By: Heath Macario on 07-21-2024 CO2 [Moles/Vol] 37.4 mmol/L High 21.0-32.0 [facility] Chloride assayOrdered By: Ruben Mcaario on 07-21-2024 Chloride [Moles/Vol] 94 mmol/L Low 98-108 [facility] Glomerular filtration rate ( GFR) estimation/1.73 sq m using serum, plasma, or whole bOrdered By: Heath Macario on 07-21-2024 GFR/1.73 sq M.predicted among non-blacks MDRD (S/P/Bld) [Vol rate/Area] 104 mL/min/{1.73_m2} >60 [facility] Comment on above: mL/min/1.73m2 CKD-EP I Creatinine Equation (2020) Potassium measurement (mass/ volume)Ordered By: Heath Macario on 07-21-2024 Potassium (Unsp spec) [Mass/Vol] 3.5 mmol/L 3.3-5.1 [facility] Serum creatinine measurement (mass/volume)Ordered By: Heath Macario on 07-21-2024 Creatinine [Mass/Vol] 0.54 mg/dL Low 0.70-1.20 [facility] Serum glucose measurement (m ass/volume)Ordered By: Heath Macario on 07-21-2024 Glucose [Mass/Vol] 107 mg/dL High 70-99 [facility] Serum or plasma calcium angela urement (mass/volume)Ordered By: Heath Macario on 07-21-2024 Calcium [Mass/Vol] 10.5 mg/dL 7.6-11.0 [facility] Serum or plasma urea nitroge n measurement (mass/volume)Ordered By: Heath Macaroi on 07-21-2024 Urea nitrogen [Mass/Vol] 15 mg/dL 4-19 [facility] Sodium levelOrdered By: Colin Macario on 07-21-2024 Sodium [Moles/Vol] 140 mmol/L 133-145 [facility] Echo Complete W/ Contraston 07-01-2024 Echo Complete W/ Contrast Normal [facility] Echocardiogram study reportO rdered By: Theo Cho on 07-01-2024 Study report [facility] [address] [place] [address] Echo Complete W/ Contrast 07/01/24 0859 MR#: [id number] Acct: [id number] Name: EH LAUREANO Rep #:[id number] : 1960 63 From: Theo Cho MD Attending Dr: Dr. Theo Cho MD Status: REG CLI Ordering Dr: Theo Cho MD Date: Location: CVS Sex: F C Admitted: Reason For Study Reason For Study: ABN EKG Procedure This was a 2D Doppler, Color Flow transthoracic echocardiogram. The study was technically difficult. The study was technically limited. PT arrived in cart from assisted. PT was in right lateral decubitus position and refused to be moved into left lateral position. Contrast injection was performed. Exam performed in department. Left Ventricle Only apical views available. Overall left ventricular systolic function appears normal with LVEF 50%. Unable to assess diastolic dysfunction based on available data. Right Ventricle The right ventricle is not well visualized. Atria Left atrium appears mildly dilated. Normal right atrium. Mitral Valve Mitral valve not well visualized. Tricuspid Valve The tricuspid valve is not well visualized. Aortic Valve The aortic valve is not well visualized. Pulmonic Valve The pulmonic valve is not well visualized. Great Vessels The aortic root is not well visualized. Pericardium/Pleural No pericardial effusion noted. Medication 22 gauge I.V. with prn adaptor inserted into left arm. Definity7.0ml given slow IV push to enhance endocardial definition. MMode/2D Measurements & Calculations Ao root diam: 3.1 cm LAV(MOD-sp4): 43.8 ml LVAd ap4: 23.7 cm2 LVLd ap4: 7.3 cm EDV(MOD-sp4): 63.3 ml EDV(sp4-el): 65.5 ml LVAs ap4: 14.7 cm2 LVLs ap4: 5.8 cm ESV(MOD-sp4): 30.5 ml ESV(sp4-el): 31.5 ml EF(MOD-sp4): 51.7 % EF(sp4-el): 51.9 % SV(MOD-sp4): 32.7 ml SV(sp4-el): 34.0 ml LA A4 area: 16.5 cm2 SI(MOD-sp4): 13.4 ml/m2 LA dimension(2D): 3.7 cm TAPSE: 1.7 cm Time Measurements MV dec time: 0.14 sec Doppler Measurements & Calculations MV E max alireza: 44.5 cm/sec MV V2 max: 79.6 cm/sec AoV2 max: 123.0 cm/sec MV A max alireza: 56.2 cm/sec MV max P.5 mmHg Aomax P.0 mmHg MV E/A: 0.79 MV V2 mean: 51.7 cm/sec AoV2 mean: 82.3 cm/sec MV mean P.2 mmHg Aomean P.0 mmHg MV V2 VTI: 17.0 cm AoV2 VTI: 19.3 cm AV(velocity ratio): 0.72 LV V1 max: 100.4 cm/sec PA V2 max: 111.2 cm/sec LV V1 max P.0 mmHg LV V1 mean P.1 mmHg LV V1 mean: 66.7 cm/sec LV V1 VTI: 13.9 cm ECHO/Echo Complete W/ Contrast Interpretation Summary The study was technically difficult with suboptimal images. Overall left ventricular systolic function appears normal with LVEF 50%. Left atrium appears mildly dilated. Valves not well-visualized. Ordering Physician: Theo Cho Referring Physician: Heath Macario Performed By: Deidra Nguyen, PETE, RVT 07/01/24 1139 Date _ Theo Cho MD CC: Dr. Theo Cho MD; Dr. 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 [facility] Anion gap in Serum or Plasma Ordered By: Heath Macario on 06-23-2024 Anion gap [Moles/Vol] 10 mmol/L 5-15 [facility] BUN/creatinine ratioOrdered By: Heath Macario on 03-17-2025 Urea nitrogen/Creatinine [Mass ratio] 29.7 mg/mg High 10-20 [facility] Basic Metabolic Profile (BMP )on 06-23-2024 BUN/CRE 29.7 RATIO High 10-20 [facility] Comment on above: Performed By: #### L 502.0500, L100.0500, L500.2500, L500.4100, L501.9985, L501.9310, L503.7505, L501.9520 ####[facility] [address] [place], [address] Calcium [Mass/Vol] 10.3 mg/dL Normal 7.6-11.0 [facility] Comment on above: Performed By: #### L 502.0500, L100.0500, L500.2500, L500.4100, L501.9985, L501.9310, L503.7505, L501.9520 ####[facility] [address] [place], [address] Chloride [Moles/Vol] 93 mmol/L Low 98-108 [facility] Comment on above: Performed By: #### L 502.0500, L100.0500, L500.2500, L500.4100, L501.9985, L501.9310, L503.7505, L501.9520 ####[facility] [address] [place], [address] CO2 [Moles/Vol] 38.7 mmol/L High 21.0-32.0 [facility] Comment on above: Performed By: #### L 502.0500, L100.0500, L500.2500, L500.4100, L501.9985, L501.9310, L503.7505, L501.9520 ####[facility] [address] [place], [address] Creatinine [Mass/Vol] 0.54 mg/dL Low 0.70-1.20 [facility] Comment on above: Performed By: #### L 502.0500, L100.0500, L500.2500, L500.4100, L501.9985, L501.9310, L503.7505, L501.9520 ####[facility] [address] [place], [address] GAP 10 Normal 5-15 [facility] Comment on above: Performed By: #### L 502.0500, L100.0500, L500.2500, L500.4100, L501.9985, L501.9310, L503.7505, L501.9520 ####[facility] [address] [place], [address] GFR/1.73 sq M.predicted among non-blacks MDRD (S/P/Bld) [Vol rate/Area] 104 mL/min/{1.73_m2} Normal >60 [facility] Comment on above: Result Comment: mL/m in/1.73m2 CKD-EPI Creatinine Equation (2020) Performed By: #### L 502.0500, L100.0500, L500.2500, L500.4100, L501.9985, L501.9310, L503.7505, L501.9520 ####[facility] [address] [place], [address] Glucose [Mass/Vol] 132 mg/dL High 70-99 [facility] Comment on above: Performed By: #### L 502.0500, L100.0500, L500.2500, L500.4100, L501.9985, L501.9310, L503.7505, L501.9520 ####[facility] [address] [place], [address] Potassium [Moles/Vol] 3.6 mmol/L Normal 3.3-5.1 [facility] Comment on above: Performed By: #### L 502.0500, L100.0500, L500.2500, L500.4100, L501.9985, L501.9310, L503.7505, L501.9520 ####[facility] [address] [place], [address] Sodium [Moles/Vol] 142 mmol/L Normal 133-145 [facility] Comment on above: Performed By: #### L 502.0500, L100.0500, L500.2500, L500.4100, L501.9985, L501.9310, L503.7505, L501.9520 ####[facility] [address] [place], [address] Urea nitrogen [Mass/Vol] 16 mg/dL Normal 4-19 [facility] Comment on above: Performed By: #### L 502.0500, L100.0500, L500.2500, L500.4100, L501.9985, L501.9310, L503.7505, L501.9520 ####[facility] [address] [place], [address] CBC-Complete Blood Cnt No Di ffon 06-23-2024 Erythrocyte distribution width (RBC) [Ratio] 14.5 % Normal 11.6-14.6 [facility] Comment on above: Performed By: #### L 502.0500, L100.0500, L500.2500, L500.4100, L501.9985, L501.9310, L503.7505, L501.9520 ####[facility] [address] [place], [address] Hematocrit (Bld) [Volume fraction] 38.7 % Normal 37-47 [facility] Comment on above: Performed By: #### L 502.0500, L100.0500, L500.2500, L500.4100, L501.9985, L501.9310, L503.7505, L501.9520 ####[facility] [address] [place], [address] Hemoglobin (Bld) [Mass/Vol] 11.0 g/dL Low 12.0-15.0 [facility] Comment on above: Performed By: #### L 502.0500, L100.0500, L500.2500, L500.4100, L501.9985, L501.9310, L503.7505, L501.9520 ####[facility] [address] [place], [address] MCH (RBC) [Entitic mass] 24.3 pg Low 27.0-32.0 [facility] Comment on above: Performed By: #### L 502.0500, L100.0500, L500.2500, L500.4100, L501.9985, L501.9310, L503.7505, L501.9520 ####[facility] [address] [place], [address] MCHC (RBC) [Mass/Vol] 28.4 g/dL Low 32-36 [facility] Comment on above: Performed By: #### L 502.0500, L100.0500, L500.2500, L500.4100, L501.9985, L501.9310, L503.7505, L501.9520 ####[facility] [address] [place], [place], [phone]90) MCV (RBC) [Entitic vol] 85.4 fL Normal 81-99 [facility] Comment on above: Performed By: #### L 502.0500, L100.0500, L500.2500, L500.4100, L501.9985, L501.9310, L503.7505, L501.9520 ####[facility] [address] [place], [address] Platelet mean volume (Bld) [Entitic vol] 12.2 fL High 6.2-12.0 [facility] Comment on above: Performed By: #### L 502.0500, L100.0500, L500.2500, L500.4100, L501.9985, L501.9310, L503.7505, L501.9520 ####[facility] [address] [place], [address] Platelets (Bld) [#/Vol] 219 10*3/uL Normal 150-450 [facility] Comment on above: Performed By: #### L 502.0500, L100.0500, L500.2500, L500.4100, L501.9985, L501.9310, L503.7505, L501.9520 ####[facility] [address] [place], [address] RBC (Bld) [#/Vol] 4.53 10*6/uL Normal 4.2-5.4 [facility] Comment on above: Performed By: #### L 502.0500, L100.0500, L500.2500, L500.4100, L501.9985, L501.9310, L503.7505, L501.9520 ####[facility] [address] [place], [address] RDW SD 44.5 fl High 35.1-43.9 [facility] Comment on above: Performed By: #### L 502.0500, L100.0500, L500.2500, L500.4100, L501.9985, L501.9310, L503.7505, L501.9520 ####[facility] [address] [place], [address] WBC (Bld) [#/Vol] 9.4 10*3/uL Normal 4.4-11.0 [facility] Comment on above: Performed By: #### L 502.0500, L100.0500, L500.2500, L500.4100, L501.9985, L501.9310, L503.7505, L501.9520 ####[facility] [address] [place], [address] Calculated very low density lipoprotein (VLDL) cholesterol measurementOrdered By: Heath Macario on 06-23-2024 Calculated very low density lipoprotein (VLDL) cholesterol measurement 34 mg/dL 5-40 [facility] VLDL Cholesterol 34 mg/dL 5-40 [facility] Carbon dioxide, total [Moles /volume] in Central venous bloodOrdered By: Heath Macario on 06-23-2024 CO2 [Moles/Vol] 38.7 mmol/L High 21.0-32.0 [facility] Chloride assayOrdered By: Ruben Macario on 06-23-2024 Chloride [Moles/Vol] 93 mmol/L Low 98-108 [facility] Erythrocyte distribution wid th ratioOrdered By: Heath Macario on 06-23-2024 Erythrocyte distribution width (RBC) [Ratio] 14.5 % 11.6-14.6 [facility] Erythrocyte distribution wid th standard deviationOrdered By: Heath Macario on 06-23-2024 Erythrocyte distribution width (RBC) [Entitic vol] 44.5 fL High 35.1-43.9 [facility] Erythrocyte distribution width (RBC) [Ratio] 44.5 fl High 35.1-43.9 [facility] GFR/1.73 sq M.predicted iftikhar g non-blacks MDRD (S/P/Bld) [Vol rate/Area]Ordered By: Heath Macario on 06-23-2024 Estimated GFR (MDRD) Non-Af Amer 104 >60 [facility] Comment on above: mL/min/1.73m2 CKD-EP I Creatinine Equation (2020) Glomerular filtration rate ( GFR) estimation/1.73 sq m using serum, plasma, or whole bOrdered By: Heath Macario on 06-23-2024 GFR/1.73 sq M.predicted among non-blacks MDRD (S/P/Bld) [Vol rate/Area] 104 mL/min/{1.73_m2} >60 [facility] Comment on above: mL/min/1.73m2 CKD-EP I Creatinine Equation (2020) Hematocrit Auto (Bld) [Volum e fraction]Ordered By: Heath Macario on 06-23-2024 Hematocrit (Bld) [Volume fraction] 38.7 % 37-47 [facility] Hemoglobin A1con 06-23-2024 HbA1c (Bld) [Mass fraction] 6.1 % Normal <=5.6 [facility] Comment on above: Performed By: #### L 502.0500, L100.0500, L500.2500, L500.4100, L501.9985, L501.9310, L503.7505, L501.9520 ####[facility] [address] [place], [place], [id number] Hemoglobin A1c percentageOrd ered By: Heath Macario on 06-23-2024 HbA1c (Bld) [Mass fraction] 6.1 % >5.7 [facility] Hemoglobin measurementOrdere d By: Heath Macario on 06-23-2024 Hemoglobin (Bld) [Mass/Vol] 11.0 g/dL Low 12.0-15.0 [facility] L503.7505on 06-23-2024 Natriuretic peptide B (Bld) [Mass/Vol] 74 pg/mL Normal <=900 [facility] Comment on above: Result Comment: Hear t Failure Unlikely: < 300 pg/mLHeart Failure Likely< 50 Years: > 450 pg/mL50-75 Years: > 900 pg/mL>75 Years: > 1800 pg/mL Performed By: #### L 502.0500, L100.0500, L500.2500, L500.4100, L501.9985, L501.9310, L503.7505, L501.9520 ####[facility] [address] [place], [place], [id number] LDL calc ser/plasOrdered By: Heath Macario on 06-23-2024 Cholesterol in LDL [Mass/Vol] 89 mg/dL [facility] Comment on above: Rxoquswrvp=519-720 m g/dL & Higher Wwbn=837 mg/dL or greater LDL Cholesterol, Calculated 89 mg/dL [facility] Comment on above: Tgodvrkocy=688-424 m g/dL & Higher Ajsv=781 mg/dL or greater Laboratory - Chemistry and C hemistry - challengeOrdered By: Heath Macario on 06-23-2024 Natriuretic peptide B (Bld) [Mass/Vol] 74 pg/mL <900 [facility] Comment on above: Heart Failure Unlike ly: < 300 pg/mLHeart Failure Likely< 50 Years: > 450 pg/mL50-75 Years: > 900 pg/mL>75 Years: > 1800 pg/mL Lipid Profileon 06-23-2024 CHOL:HDL 3.44 Normal [facility] Comment on above: Performed By: #### L 502.0500, L100.0500, L500.2500, L500.4100, L501.9985, L501.9310, L503.7505, L501.9520 ####[facility] [address] [place], [address](661) Cholesterol [Mass/Vol] 173 mg/dL Normal <=200 [facility] Comment on above: Result Comment: Chol esterol level, Desirable <200 mg/dLBorderline high cholesterol 200-239 mg/dLHigh cholesterol >=240 mg/dLRecommendations of the NCEP Adult Treatment Panel for thefollowing risk-cutoff thresholds for the [place] Americanpopulation. Performed By: #### L 502.0500, L100.0500, L500.2500, L500.4100, L501.9985, L501.9310, L503.7505, L501.9520 ####[facility] [address] [place], [place], [phone]) Cholesterol in HDL [Mass/Vol] 50 mg/dL Normal [facility] Comment on above: Result Comment: Keri onal Cholesterol Education Program (NCEP) guidelines:<40 mg/dL: Low HDL-cholesterol (major risk factor for CHD)>= 60 mg/dL: High HDL-cholesterol (negative risk factor forCHD)HDL-cholesterol is affected by a number of factors, e.g.smoking, exercise, hormones, sex and age. Performed By: #### L 502.0500, L100.0500, L500.2500, L500.4100, L501.9985, L501.9310, L503.7505, L501.9520 ####[facility] [address] [place], [place], [phone] Cholesterol in LDL [Mass/Vol] 89 mg/dL Normal [facility] Comment on above: Result Comment: Bord ytyfeb=792-412 mg/dL Higher Uold=959 mg/dL or greater Performed By: #### L 502.0500, L100.0500, L500.2500, L500.4100, L501.9985, L501.9310, L503.7505, L501.9520 ####[facility] [address] [place], [address]) Cholesterol in VLDL [Mass/Vol] 34 mg/dL Normal 5-40 [facility] Comment on above: Performed By: #### L 502.0500, L100.0500, L500.2500, L500.4100, L501.9985, L501.9310, L503.7505, L501.9520 ####[facility] [address] [place], [address] Triglyceride [Mass/Vol] 170 mg/dL Normal [facility] Comment on above: Result Comment: The drugs N-Acetylcysteine and Metamizole may falselydepress this assay.Normal range: <150 mg/dLBorderline High: 150-199 mg/dLHigh: 200-499 mg/dLVery High: >500 mg/dL Performed By: #### L 502.0500, L100.0500, L500.2500, L500.4100, L501.9985, L501.9310, L503.7505, L501.9520 ####[facility] [address] [place], [address] MCV (mean corpuscular volume ) determinationOrdered By: Heath Macario on 06-23-2024 MCV (RBC) [Entitic vol] 85.4 fL 81-99 [facility] Mean corpuscular hemoglobin (MCH) determinationOrdered By: Heath Macario on 06-23-2024 MCH (RBC) [Entitic mass] 24.3 pg Low 27.0-32.0 [facility] Mean corpuscular hemoglobin concentration (MCHC) determinationOrdered By: Heath Macario on 06-23-2024 MCHC (RBC) [Mass/Vol] 28.4 g/dL Low 32-36 [facility] Mean platelet volume determi nationOrdered By: Heath Macario on 06-23-2024 Platelet mean volume (Bld) [Entitic vol] 12.2 fL High 6.2-12.0 [facility] Microalbumin,Random Urineon 06-23-2024 MICROALBUMIN,UR 12.4 mg/L Normal NO RANGE EST. [facility] Comment on above: Performed By: #### L 502.0500, L100.0500, L500.2500, L500.4100, L501.9985, L501.9310, L503.7505, L501.9520 ####[facility] [address] [place], [address] Platelet countOrdered By: Ruben Macario on 06-23-2024 Platelets (Bld) [#/Vol] 219 10*3/uL 150-450 [facility] Potassium (Unsp spec) [Mass/ Vol]Ordered By: Heath Macario on 06-23-2024 Potassium [Moles/Vol] 3.6 mmol/L 3.3-5.1 [facility] Potassium measurement (mass/ volume)Ordered By: Heath Macario on 06-23-2024 Potassium (Unsp spec) [Mass/Vol] 3.6 mmol/L 3.3-5.1 [facility] RBC Auto (Bld) [#/Vol]Ordere d By: Heath Macario on 06-23-2024 RBC (Bld) [#/Vol] 4.53 10*6/uL 4.2-5.4 [facility] Screening total cholesterol/ high density lipoprotein (HDL) cholesterol ratioOrdered By: Heath Macario on 06-23-2024 Cholesterol.total/Ally sterol in HDL [Mass ratio] 3.44 {ratio} [facility] Serum creatinine measurement (mass/volume)Ordered By: Heath Macario on 06-23-2024 Creatinine [Mass/Vol] 0.54 mg/dL Low 0.70-1.20 [facility] Serum glucose measurement (m ass/volume)Ordered By: Haeth Macario on 06-23-2024 Glucose [Mass/Vol] 132 mg/dL High 70-99 [facility] Serum or plasma calcium angela urement (mass/volume)Ordered By: Heath Macario on 06-23-2024 Calcium [Mass/Vol] 10.3 mg/dL 7.6-11.0 [facility] Serum or plasma cholesterol in HDL measurement (mass/volume)Ordered By: Heath Macario on 06-23-2024 Cholesterol in HDL [Mass/Vol] 50 mg/dL >40 [facility] Comment on above: National Cholesterol Education Program (NCEP) guidelines:<40 mg/dL: Low HDL-cholesterol (major risk factor for CHD)>= 60 mg/dL: High HDL-cholesterol (negative risk factor for CHD)HDL-cholesterol is affected by a number of factors, e.g. smoking, exercise, hormones, sex and age. Serum or plasma cholesterol measurement (mass/volume)Ordered By: Heath Macario on 06-23-2024 Cholesterol [Mass/Vol] 173 mg/dL <201 [facility] Comment on above: Cholesterol level, D esirable <200 mg/dLBorderline high cholesterol 200-239 mg/dLHigh cholesterol >=240 mg/dLRecommendations of the NCEP Adult Treatment Panel for the following risk-cutoff thresholds for the [place] population. Serum or plasma urea nitroge n measurement (mass/volume)Ordered By: Heath Macario on 06-23-2024 Urea nitrogen [Mass/Vol] 16 mg/dL 4-19 [facility] Sodium levelOrdered By: Colin Macario on 06-23-2024 Sodium [Moles/Vol] 142 mmol/L 133-145 [facility] T4 Total, Thyroxinon 025 T4 [Mass/Vol] 6.7 ug/dL Normal 4.8-13.9 [facility] Comment on above: Performed By: #### L 502.0500, L100.0500, L500.2500, L500.4100, L501.9985, L501.9310, L503.7505, L501.9520 ####[facility] [address] [place], [place], [id number] TSH DL <= 0.005 mIU/L QnOrde red By: Heath Macario on 06-23-2024 Thyroid Stimulating Hormone (TSH) 0.494 uIU/mL 0.300-4.200 [facility] TSH Qn 0.494 uIU/mL 0.300-4.200 [facility] Thyroid Stim Hormone (TSH)on 06-23-2024 TSH 0.494 uIU/mL Normal 0.300-4.200 [facility] Comment on above: Performed By: #### L 502.0500, L100.0500, L500.2500, L500.4100, L501.9985, L501.9310, L503.7505, L501.9520 ####[facility] [address] [place], [place], [id number] ThyroxineOrdered By: Heath hewitt on 06-23-2024 T4 [Mass/Vol] 6.7 ug/dL 4.8-13.9 [facility] Triglycerides measurementOrd ered By: Heath Macario on 06-23-2024 Triglyceride [Mass/Vol] 170 mg/dL <199 [facility] Comment on above: The drugs N-Acetylcy steine and Metamizole may falsely depress this assay. Normal range: <150 mg/dLBorderline High: 150-199 mg/dLHigh: 200-499 mg/dLVery High: >500 mg/dL Urine albumin measurement [facility] detection limit of 20 mg/L or less (mass/volume)Ordered By: Heath Macario on 06-23-2024 Albumin DL <= 20 mg/L (U) [Mass/Vol] 12.4 mg/L NO RANGE EST. [facility] White blood cell (WBC) count Ordered By: Heath Macario on 06-23-2024 WBC (Bld) [#/Vol] 9.4 10*3/uL 4.4-11.0 [facility] 12 Lead EKG performed by [facility] on 05-20-2024 12 Lead EKG performed by [facility] Normal [facility] Cardiology Visit Reporton Cardiology Visit Report Normal [facility] Albumin to globulin ratioOrd ered By: Heath Macario on 05-12-2024 Albumin/Globulin [Mass ratio] 0.7 {ratio} Low 0.9-2.4 [facility] Bilirubin, totalOrdered By: Heath Macario on 05-12-2024 Bilirubin [Mass/Vol] 0.30 mg/dL 0.20-1.00 [facility] Comment on above: For patients on eltr ombopag therapy, use of Dimension Freeman TBIL is not recommended. Blood urea nitrogen (BUN)/cr eatinine ratioOrdered By: Heath Macario on 05-12-2024 Urea nitrogen/Creatinine [Mass ratio] 17.7 mg/mg 10-20 [facility] CBC-Complete Blood Cnt No Di ffon 05-12-2024 Erythrocyte distribution width (RBC) [Ratio] 14.6 % Normal 11.6-14.6 [facility] Comment on above: Performed By: #### L 500.4050, L100.0500 ####[facility] [address] [place], [address] Hematocrit (Bld) [Volume fraction] 37.8 % Normal 37-47 [facility] Comment on above: Performed By: #### L 500.4050, L100.0500 ####[facility] [address] [place], [address] Hemoglobin (Bld) [Mass/Vol] 10.5 g/dL Low 12.0-15.0 [facility] Comment on above: Performed By: #### L 500.4050, L100.0500 ####[facility] [address] [place], [address] MCH (RBC) [Entitic mass] 24.2 pg Low 27.0-32.0 [facility] Comment on above: Performed By: #### L 500.4050, L100.0500 ####[facility] [address] [place], [address] MCHC (RBC) [Mass/Vol] 27.8 g/dL Low 32-36 [facility] Comment on above: Performed By: #### L 500.4050, L100.0500 ####[facility] [address] [place], [address] MCV (RBC) [Entitic vol] 87.1 fL Normal 81-99 [facility] Comment on above: Performed By: #### L 500.4050, L100.0500 ####[facility] [address] [place], [address] Platelet mean volume (Bld) [Entitic vol] 12.6 fL High 6.2-12.0 [facility] Comment on above: Performed By: #### L 500.4050, L100.0500 ####[facility] [address] [place], [address] Platelets (Bld) [#/Vol] 196 10*3/uL Normal 150-450 [facility] Comment on above: Performed By: #### L 500.4050, L100.0500 ####[facility] [address] [place], [address] RBC (Bld) [#/Vol] 4.34 10*6/uL Normal 4.2-5.4 [facility] Comment on above: Performed By: #### L 500.4050, L100.0500 ####[facility] [address] [place], [address] RDW SD 46.1 fl High 35.1-43.9 [facility] Comment on above: Performed By: #### L 500.4050, L100.0500 ####[facility] [address] [place], [address] WBC (Bld) [#/Vol] 7.5 10*3/uL Normal 4.4-11.0 [facility] Comment on above: Performed By: #### L 500.4050, L100.0500 ####[facility] [address] [place], [address] Carbon dioxide measurementOr dered By: Heath Macario on 05-12-2024 CO2 [Moles/Vol] 43.0 mmol/L High 21.0-32.0 [facility] Chloride measurementOrdered By: Heath Macario on 05-12-2024 Chloride [Moles/Vol] 93 mmol/L Low 98-107 [facility] Comprehensive Metabolic Prof ilon 05-12-2024 Albumin [Mass/Vol] 2.9 g/dL Low 3.2-5.0 [facility] Comment on above: Performed By: #### L 500.4050, L100.0500 ####[facility] [address] [place], [address] Albumin/Globulin [Mass ratio] 0.7 {ratio} Low 0.9-2.4 [facility] Comment on above: Performed By: #### L 500.4050, L100.0500 ####[facility] [address] [place], [address] ALK P 95 U/L Normal 45-117 [facility] Comment on above: Performed By: #### L 500.4050, L100.0500 ####[facility] [address] [place], [address] ALT [Catalytic activity/Vol] 12 U/L Low 13-56 [facility] Comment on above: Performed By: #### L 500.4050, L100.0500 ####[facility] [address] [place], [address] AST [Catalytic activity/Vol] 12 U/L Low 15-37 [facility] Comment on above: Performed By: #### L 500.4050, L100.0500 ####[facility] [address] [place], [address] Bilirubin [Mass/Vol] 0.30 mg/dL Normal 0.20-1.00 [facility] Comment on above: Result Comment: For patients on eltrombopag therapy, use of Dimension Freeman TBIL is not recommended. Performed By: #### L 500.4050, L100.0500 ####[facility] [address] [place], [address] BUN/CRE 17.7 RATIO Normal 10-20 [facility] Comment on above: Performed By: #### L 500.4050, L100.0500 ####[facility] [address] [place], [address] CA,Total 10.8 mg/dL High 8.5-10.1 [facility] Comment on above: Performed By: #### L 500.4050, L100.0500 ####[facility] [address] [place], [address] Chloride [Moles/Vol] 93 mmol/L Low 98-107 [facility] Comment on above: Performed By: #### L 500.4050, L100.0500 ####[facility] [address] [place], [address] CO2 [Moles/Vol] 43.0 mmol/L High 21.0-32.0 [facility] Comment on above: Performed By: #### L 500.4050, L100.0500 ####[facility] [address] [place], [address] Creatinine [Mass/Vol] 0.62 mg/dL Normal 0.55-1.02 [facility] Comment on above: Result Comment: The validity of the calculated GFR GFRAA in patients over70 years has not been determined. Clinical correlation isessential. Performed By: #### L 500.4050, L100.0500 ####[facility] [address] [place], [address] EST GFR - AA 125 mL/min Normal >60 [facility] Comment on above: Result Comment: Afri can [place] GFR Calc Performed By: #### L 500.4050, L100.0500 ####[facility] [address] [place], [address] GAP 5 Normal 5-15 [facility] Comment on above: Performed By: #### L 500.4050, L100.0500 ####[facility] [address] [place], [address] GFR/1.73 sq M.predicted among non-blacks MDRD (S/P/Bld) [Vol rate/Area] 103 mL/min/{1.73_m2} Normal >60 [facility] Comment on above: Result Comment: Non- GFR Calc Performed By: #### L 500.4050, L100.0500 ####[facility] [address] [place], [address] Globulin (S) [Mass/Vol] 4.1 g/dL Normal 2.2-4.2 [facility] Comment on above: Performed By: #### L 500.4050, L100.0500 ####[facility] [address] [place], [address] Glucose [Mass/Vol] 121 mg/dL High 74-106 [facility] Comment on above: Result Comment: Fast ing Glucose result from 100 to 125 mg/dLsuggests IMPAIRED HOMEOSTASIS per A.D.A. criteria. Performed By: #### L 500.4050, L100.0500 ####[facility] [address] [place], [address] Potassium [Moles/Vol] 3.3 mmol/L Low 3.5-5.1 [facility] Comment on above: Performed By: #### L 500.4050, L100.0500 ####[facility] [address] [place], [address] Sodium [Moles/Vol] 141 mmol/L Normal 136-145 [facility] Comment on above: Performed By: #### L 500.4050, L100.0500 ####[facility] [address] [place], [address] T PROT 7.0 g/dL Normal 6.4-8.2 [facility] Comment on above: Performed By: #### L 500.4050, L100.0500 ####[facility] [address] [place], [address] Urea nitrogen [Mass/Vol] 11 mg/dL Normal 7-18 [facility] Comment on above: Performed By: #### L 500.4050, L100.0500 ####[facility] [address] [place], [address] Erythrocyte distribution wid th ratioOrdered By: Heath Macario on 05-12-2024 Erythrocyte distribution width (RBC) [Ratio] 14.6 % 11.6-14.6 [facility] Erythrocyte distribution wid th standard deviationOrdered By: Heath Macario on 05-12-2024 Erythrocyte distribution width (RBC) [Entitic vol] 46.1 fL High 35.1-43.9 [facility] Estimated glomerular filtrat ion rate (GFR) AmericanOrdered By: Heath Macario on 05-12-2024 Estimated GFR (MDRD) Amer 125 mL/min >60 [facility] Comment on above: GFR Calc Glomerular filtration rate ( GFR) estimationOrdered By: Heath Macario on 05-12-2024 Estimated GFR (MDRD) Non-Af Amer 103 mL/min >60 [facility] Comment on above: Non- GFR Calc Glucose measurementOrdered B y: Heath Macario on 05-12-2024 Glucose [Mass/Vol] 121 mg/dL High 74-106 [facility] Comment on above: Fasting Glucose resu lt from 100 to 125 mg/dL suggests IMPAIRED HOMEOSTASIS per A.D.A. criteria. Hematocrit Auto (Bld) [Volum e fraction]Ordered By: Heath Macario on 05-12-2024 Hematocrit (Bld) [Volume fraction] 37.8 % 37-47 [facility] Hemoglobin measurementOrdere d By: Heath Macario on 05-12-2024 Hemoglobin (Bld) [Mass/Vol] 10.5 g/dL Low 12.0-15.0 [facility] Laboratory - Chemistry and C hemistry - challengeOrdered By: Heath Macario on 05-12-2024 AST [Catalytic activity/Vol] 12 U/L Low 15-37 [facility] MCV (mean corpuscular volume ) determinationOrdered By: Heath Macario on 05-12-2024 MCV (RBC) [Entitic vol] 87.1 fL 81-99 [facility] Mean corpuscular hemoglobin (MCH) determinationOrdered By: Heath Macario on 05-12-2024 MCH (RBC) [Entitic mass] 24.2 pg Low 27.0-32.0 [facility] Mean corpuscular hemoglobin concentration (MCHC) determinationOrdered By: Heath Macario on 05-12-2024 MCHC (RBC) [Mass/Vol] 27.8 g/dL Low 32-36 [facility] Mean platelet volume determi nationOrdered By: Heath Macario on 05-12-2024 Platelet mean volume (Bld) [Entitic vol] 12.6 fL High 6.2-12.0 [facility] Platelet countOrdered By: Ruben Macario on 05-12-2024 Platelets (Bld) [#/Vol] 196 10*3/uL 150-450 [facility] Potassium measurementOrdered By: Heath Macario on 05-12-2024 Potassium [Moles/Vol] 3.3 mmol/L Low 3.5-5.1 [facility] RBC Auto (Bld) [#/Vol]Ordere d By: Heath Macario on 05-12-2024 RBC (Bld) [#/Vol] 4.34 10*6/uL 4.2-5.4 [facility] Serum anion gap measurementO rdered By: Heath Macario on 05-12-2024 Anion gap [Moles/Vol] 5 mmol/L 5-15 [facility] Serum globulin measurementOr dered By: Heath Macario on 05-12-2024 Globulin (S) [Mass/Vol] 4.1 g/dL 2.2-4.2 [facility] Serum or plasma alanine epstein otransferase (ALT) measurementOrdered By: Heath Macario on 05-12-2024 ALT [Catalytic activity/Vol] 12 U/L Low 13-56 [facility] Serum or plasma albumin angela urement (mass/volume)Ordered By: Heath Macario on 05-12-2024 Albumin [Mass/Vol] 2.9 g/dL Low 3.2-5.0 [facility] Serum or plasma alkaline [place] sphatase measurementOrdered By: Heath Macario on 05-12-2024 ALP [Catalytic activity/Vol] 95 U/L 45-117 [facility] Serum or plasma calcium angela urement (mass/volume)Ordered By: Heath Macario on 05-12-2024 Calcium [Mass/Vol] 10.8 mg/dL High 8.5-10.1 [facility] Serum or plasma creatinine m easurement (mass/volume)Ordered By: Heath Macario on 05-12-2024 Creatinine [Mass/Vol] 0.62 mg/dL 0.55-1.02 [facility] Comment on above: The validity of the calculated GFR & GFRAA in patients over 70 years has not been determined. Clinical correlation is essential. Serum or plasma urea nitroge n measurement (mass/volume)Ordered By: Heath Macario on 05-12-2024 Urea nitrogen [Mass/Vol] 11 mg/dL 7-18 [facility] Sodium levelOrdered By: Colin Macario on 05-12-2024 Sodium [Moles/Vol] 141 mmol/L 136-145 [facility] Total proteinOrdered By: Troy Macario on 05-12-2024 Protein [Mass/Vol] 7.0 g/dL 6.4-8.2 [facility] White blood cell (WBC) count Ordered By: Heath Macario on 05-12-2024 WBC (Bld) [#/Vol] 7.5 10*3/uL 4.4-11.0 [facility] Basic Metabolic Profile (BMP )on 04-23-2024 BUN/CRE 25.0 RATIO High 10-20 [facility] Comment on above: Order Comment: 512.1 Performed By: #### L 500.2500 ####[facility] [address] [place], [address] CA,Total 10.4 mg/dL High 8.5-10.1 [facility] Comment on above: Order Comment: 512.1 Performed By: #### L 500.2500 ####[facility] [address] [place], [address] Chloride [Moles/Vol] 89 mmol/L Low 98-107 [facility] Comment on above: Order Comment: 512.1 Performed By: #### L 500.2500 ####[facility] [address] [place], [address] CO2 [Moles/Vol] 45.0 mmol/L High 21.0-32.0 [facility] Comment on above: Order Comment: 512.1 Performed By: #### L 500.2500 ####[facility] [address] [place], [address] Creatinine [Mass/Vol] 0.48 mg/dL Low 0.55-1.02 [facility] Comment on above: Order Comment: 512.1 Result Comment: The validity of the calculated GFR GFRAA in patients over70 years has not been determined. Clinical correlation isessential. Performed By: #### L 500.2500 ####[facility] [address] [place], [address] EST GFR - AA 168 mL/min Normal >60 [facility] Comment on above: Order Comment: 512.1 Result Comment: Afri can [place] GFR Calc Performed By: #### L 500.2500 ####[facility] [address] [place], [address] GAP 4 Low 5-15 [facility] Comment on above: Order Comment: 512.1 Performed By: #### L 500.2500 ####[facility] [address] [place], [address] GFR/1.73 sq M.predicted among non-blacks MDRD (S/P/Bld) [Vol rate/Area] 139 mL/min/{1.73_m2} Normal >60 [facility] Comment on above: Order Comment: 512.1 Result Comment: Non- GFR Calc Performed By: #### L 500.2500 ####[facility] [address] [place], [address] Glucose [Mass/Vol] 124 mg/dL High 74-106 [facility] Comment on above: Order Comment: 512.1 Result Comment: Fast ing Glucose result from 100 to 125 mg/dLsuggests IMPAIRED HOMEOSTASIS per A.D.A. criteria. Performed By: #### L 500.2500 ####[facility] [address] [place], [address] Potassium [Moles/Vol] 3.0 mmol/L Low 3.5-5.1 [facility] Comment on above: Order Comment: 512.1 Performed By: #### L 500.2500 ####[facility] [address] [place], [address] Sodium [Moles/Vol] 138 mmol/L Normal 136-145 [facility] Comment on above: Order Comment: 512.1 Performed By: #### L 500.2500 ####[facility] [address] [place], [address] Urea nitrogen [Mass/Vol] 12 mg/dL Normal 7-18 [facility] Comment on above: Order Comment: 512.1 Performed By: #### L 500.2500 ####[facility] [address] [place], [address] Blood urea nitrogen (BUN)/cr eatinine ratioOrdered By: Sepideh Patterson on 01-15-2025 Urea nitrogen/Creatinine [Mass ratio] 25.0 mg/mg High 10-20 [facility] Carbon dioxide measurementOr dered By: Sepideh Patterson on 04-23-2024 CO2 [Moles/Vol] 45.0 mmol/L High 21.0-32.0 [facility] Chloride measurementOrdered By: Sepideh Patterson on 04-23-2024 Chloride [Moles/Vol] 89 mmol/L Low 98-107 [facility] Estimated glomerular filtrat ion rate (GFR) AmericanOrdered By: Sepideh Patterson on 04-23-2024 Estimated GFR (MDRD) Amer 168 mL/min >60 [facility] Comment on above: GFR Calc Glomerular filtration rate ( GFR) estimationOrdered By: Sepideh Patterson on 04-23-2024 Estimated GFR (MDRD) Non-Af Amer 139 mL/min >60 [facility] Comment on above: Non- GFR Calc Glucose measurementOrdered B y: Sepideh Patterson on 04-23-2024 Glucose [Mass/Vol] 124 mg/dL High 74-106 [facility] Comment on above: Fasting Glucose resu lt from 100 to 125 mg/dL suggests IMPAIRED HOMEOSTASIS per A.D.A. criteria. Potassium measurementOrdered By: Sepideh Patterson on 04-23-2024 Potassium [Moles/Vol] 3.0 mmol/L Low 3.5-5.1 [facility] Serum anion gap measurementO rdered By: Sepideh Patterson on 04-23-2024 Anion gap [Moles/Vol] 4 mmol/L Low 5-15 [facility] Serum or plasma calcium angela urement (mass/volume)Ordered By: Sepideh Patterson on 04-23-2024 Calcium [Mass/Vol] 10.4 mg/dL High 8.5-10.1 [facility] Serum or plasma creatinine m easurement (mass/volume)Ordered By: Sepideh Patterson on 04-23-2024 Creatinine [Mass/Vol] 0.48 mg/dL Low 0.55-1.02 [facility] Comment on above: The validity of the calculated GFR & GFRAA in patients over 70 years has not been determined. Clinical correlation is essential. Serum or plasma urea nitroge n measurement (mass/volume)Ordered By: Sepideh Patterson on 04-23-2024 Urea nitrogen [Mass/Vol] 12 mg/dL - [facility] Sodium levelOrdered By: Aris Patterson on 04-23-2024 Sodium [Moles/Vol] 138 mmol/L 136-145 [facility] Basic Metabolic Profile (BMP )on 03-26-2024 BUN/CRE 23.7 RATIO High 10-20 [facility] Comment on above: Order Comment: 512.1 Performed By: #### L 500.2500 ####[facility] [address] [place], [address] CA,Total 10.2 mg/dL High 8.5-10.1 [facility] Comment on above: Order Comment: 512.1 Performed By: #### L 500.2500 ####[facility] [address] [place], [address] EST GFR - AA 158 mL/min Normal >60 [facility] Comment on above: Order Comment: 512.1 Result Comment: Afri can [place] GFR Calc Performed By: #### L 500.2500 ####[facility] [address] [place], [address] GAP TNP Normal 5-15 [facility] Comment on above: Order Comment: 512.1 Performed By: #### L 500.2500 ####[facility] [address] [place], [address] GFR/1.73 sq M.predicted among non-blacks MDRD (S/P/Bld) [Vol rate/Area] 131 mL/min/{1.73_m2} Normal >60 [facility] Comment on above: Order Comment: 512.1 Result Comment: Non- GFR Calc Performed By: #### L 500.2500 ####[facility] [address] [place], [address] Blood urea nitrogen (BUN)/cr eatinine ratioOrdered By: Sepideh Patterson on 03-26-2024 Urea nitrogen/Creatinine [Mass ratio] 23.7 mg/mg High 10-20 [facility] Carbon dioxide measurementOr dered By: Sepideh Patterson on 03-26-2024 CO2 [Moles/Vol] mmol/L Invalid Interpretation Code 21.0-32.0 [facility] Comment on above: Critical Result(s) C alled at: 06:59:45 03/26/2024 by: Patricia Gibson to [facility]. Results read back by same. Order Comment: 512.1 Result Comment: Crit ical Result(s) Called at: 06:59:45 03/26/2024 by:Patricia Gibson to [facility]. Results read back by same. Performed By: #### L 500.2500 ####[facility] [address] [place], [place], [address] Chloride measurementOrdered By: Sepideh Patterson on 03-26-2024 Chloride [Moles/Vol] 94 mmol/L Low 98-107 [facility] Comment on above: Order Comment: 512.1 Performed By: #### L 500.2500 ####[facility] [address] [place], [place], [address] Estimated glomerular filtrat ion rate (GFR) AmericanOrdered By: Sepideh Patterson on 03-26-2024 Estimated GFR (MDRD) Amer 158 mL/min >60 [facility] Comment on above: GFR Calc Glomerular filtration rate ( GFR) estimationOrdered By: Sepideh Patterson on 03-26-2024 Estimated GFR (MDRD) Non-Af Amer 131 mL/min >60 [facility] [facility] Comment on above: Non- GFR Calc Glucose measurementOrdered B y: Sepideh Patterson on 03-26-2024 Glucose [Mass/Vol] 138 mg/dL High 74-106 [facility] Comment on above: Fasting Glucose resu lt greater than or equal to 126 mg/dL suggests DIABETES MELLITUS per A.D.A. criteria. Order Comment: 512.1 Result Comment: Fast ing Glucose result greater than or equal to 126 mg/dLsuggests DIABETES MELLITUS per A.D.A. criteria. Performed By: #### L 500.2500 ####[facility] [address] [place], [place], [id number] Potassium measurementOrdered By: Sepideh Patterson on 03-26-2024 Potassium [Moles/Vol] 3.4 mmol/L Low 3.5-5.1 [facility] Comment on above: Order Comment: 512.1 Performed By: #### L 500.2500 ####[facility] [address] [place], [address] Serum anion gap measurementO rdered By: Sepideh Patterson on 03-26-2024 Anion Gap TNP [facility] Comment on above: Test not performed Serum or plasma calcium angela urement (mass/volume)Ordered By: Sepideh Patterson on 03-26-2024 Calcium [Mass/Vol] 10.2 mg/dL High 8.5-10.1 [facility] Serum or plasma creatinine m easurement (mass/volume)Ordered By: Sepideh Patterson on 03-26-2024 Creatinine [Mass/Vol] 0.51 mg/dL Low 0.55-1.02 [facility] Comment on above: The validity of the calculated GFR & GFRAA in patients over 70 years has not been determined. Clinical correlation is essential. Order Comment: 512.1 Result Comment: The validity of the calculated GFR GFRAA in patients over70 years has not been determined. Clinical correlation isessential. Performed By: #### L 500.2500 ####[facility] [address] [place], [address] Serum or plasma urea nitroge n measurement (mass/volume)Ordered By: Sepideh Patterson on 03-26-2024 Urea nitrogen [Mass/Vol] 12 mg/dL Normal -18 [facility] Comment on above: Order Comment: 512.1 Performed By: #### L 500.2500 ####[facility] [address] [place], [address] Sodium levelOrdered By: Aris Patterson on 03-26-2024 Sodium [Moles/Vol] 139 mmol/L Normal 136-145 [facility] Comment on above: Order Comment: 512.1 Performed By: #### L 500.2500 ####[facility] [address] [place], [address] T3 Total - Triiodothyronineo n 03-03-2024 T3 Total 1.00 ng/mL Normal 0.6-1.81 [facility] Comment on above: Order Comment: 512.1 Performed By: #### L 501.9186, L501.9310 ####[facility] [address] [place], [address] T4 Total, Thyroxinon T4 [Mass/Vol] 7.7 ug/dL Normal 4.8-13.9 [facility] Comment on above: Order Comment: 512.1 Performed By: #### L 501.9186, L501.9310 ####[facility] [address] [place], [address] Thyroid Stim Hormone (TSH)on 02-27-2024 TSH 0.163 uIU/mL Low 0.358-3.740 [facility] Comment on above: Order Comment: 512.1 Performed By: #### L 501.9520 ####[facility] [address] [place], [address] 12 Lead EKGon 02-18-2024 12 Lead EKG Normal [facility] Basic Metabolic Profile (BMP )on 02-18-2024 BUN/CRE 17.2 RATIO Normal 01-26 [facility] Comment on above: Order Comment: 'TROP ' Serial specimen #1, #2 or #3: 1 Performed By: #### L 500.2500, L100.0100, L501.4020 ####[facility] [address] [place], [address] CA,Total 10.3 mg/dL High 8.5-10.1 [facility] Comment on above: Order Comment: 'TROP ' Serial specimen #1, #2 or #3: 1 Performed By: #### L 500.2500, L100.0100, L501.4020 ####[facility] [address] [place], [address] Chloride [Moles/Vol] 90 mmol/L Low 98-107 [facility] Comment on above: Order Comment: 'TROP ' Serial specimen #1, #2 or #3: 1 Performed By: #### L 500.2500, L100.0100, L501.4020 ####[facility] [address] [place], [address] CO2 [Moles/Vol] mmol/L Invalid Interpretation Code 21.0-32.0 [facility] Comment on above: Order Comment: 'TROP ' Serial specimen #1, #2 or #3: 1 Result Comment: Crit ical Result(s) Called at: 07:03:22 02/18/2024 by:Patricia Guerin. Results read back by same. Performed By: #### L 500.2500, L100.0100, L501.4020 ####[facility] [address] [place], [address] Creatinine [Mass/Vol] 0.64 mg/dL Normal 0.55-1.02 [facility] Comment on above: Order Comment: 'TROP ' Serial specimen #1, #2 or #3: 1 Result Comment: The validity of the calculated GFR GFRAA in patients over70 years has not been determined. Clinical correlation isessential. Performed By: #### L 500.2500, L100.0100, L501.4020 ####[facility] [address] [place], [address] ECRCL 134.90 ml/min Normal [facility] Comment on above: Order Comment: 'TROP ' Serial specimen #1, #2 or #3: 1 Performed By: #### L 500.2500, L100.0100, L501.4020 ####[facility] [address] [place], [address] EST GFR - AA 121 mL/min Normal >60 [facility] Comment on above: Order Comment: 'TROP ' Serial specimen #1, #2 or #3: 1 Result Comment: Afri can [place] GFR Calc Performed By: #### L 500.2500, L100.0100, L501.4020 ####[facility] [address] [place], [address] GAP TNP Normal 5-15 [facility] Comment on above: Order Comment: 'TROP ' Serial specimen #1, #2 or #3: 1 Performed By: #### L 500.2500, L100.0100, L501.4020 ####[facility] [address] [place], [address] GFR/1.73 sq M.predicted among non-blacks MDRD (S/P/Bld) [Vol rate/Area] 100 mL/min/{1.73_m2} Normal >60 [facility] Comment on above: Order Comment: 'TROP ' Serial specimen #1, #2 or #3: 1 Result Comment: Non- GFR Calc Performed By: #### L 500.2500, L100.0100, L501.4020 ####[facility] [address] [place], [address] Glucose [Mass/Vol] 166 mg/dL High 74-106 [facility] Comment on above: Order Comment: 'TROP ' Serial specimen #1, #2 or #3: 1 Result Comment: Fast ing Glucose result greater than or equal to 126 mg/dLsuggests DIABETES MELLITUS per A.D.A. criteria. Performed By: #### L 500.2500, L100.0100, L501.4020 ####[facility] [address] [place], [address] Potassium [Moles/Vol] 3.6 mmol/L Normal 3.5-5.1 [facility] Comment on above: Order Comment: 'TROP ' Serial specimen #1, #2 or #3: 1 Performed By: #### L 500.2500, L100.0100, L501.4020 ####[facility] [address] [place], [address] Sodium [Moles/Vol] 140 mmol/L Normal 136-145 [facility] Comment on above: Order Comment: 'TROP ' Serial specimen #1, #2 or #3: 1 Performed By: #### L 500.2500, L100.0100, L501.4020 ####[facility] [address] [place], [address] Urea nitrogen [Mass/Vol] 11 mg/dL Normal 7-18 [facility] Comment on above: Order Comment: 'TROP ' Serial specimen #1, #2 or #3: 1 Performed By: #### L 500.2500, L100.0100, L501.4020 ####[facility] [address] [place], [address] CBC W/Diff, Automatedon 11-04 09-2023 Absolute Lymph 2.06 X10 3/uL Normal 0.83-4.51 [facility] Comment on above: Performed By: #### L 500.2500, L100.0100, L501.4020 ####[facility] [address] [place], [address] Absolute Neut 8.7 X10 3/uL High 2.0-7.7 [facility] Comment on above: Performed By: #### L 500.2500, L100.0100, L501.4020 ####[facility] [address] [place], [address] Basophils/100 WBC (Bld) 0.4 % Normal 0-1 [facility] Comment on above: Performed By: #### L 500.2500, L100.0100, L501.4020 ####[facility] [address] [place], [address] Eosinophils/100 WBC (Bld) 0.8 % Normal 0-5 [facility] Comment on above: Performed By: #### L 500.2500, L100.0100, L501.4020 ####[facility] [address] [place], [address] Erythrocyte distribution width (RBC) [Ratio] 14.1 % Normal 11.6-14.6 [facility] Comment on above: Performed By: #### L 500.2500, L100.0100, L501.4020 ####[facility] [address] [place], [address] Hematocrit (Bld) [Volume fraction] 39.1 % Normal 37-47 [facility] Comment on above: Performed By: #### L 500.2500, L100.0100, L501.4020 ####[facility] [address] [place], [address] Hemoglobin (Bld) [Mass/Vol] 10.9 g/dL Low 12.0-15.0 [facility] Comment on above: Performed By: #### L 500.2500, L100.0100, L501.4020 ####[facility] [address] [place], [address] IG% 2.400 High 0.0-0.9 [facility] Comment on above: Result Comment: IG% - Immature Granulocytes (promyelocytes, myelocytes andmetamyelocytes) > 1% indicates that a LEFT SHIFT is Present. Performed By: #### L 500.2500, L100.0100, L501.4020 ####[facility] [address] [place], [address] Lymphocytes/100 WBC (Bld) 17.0 % Low 19-41 [facility] Comment on above: Performed By: #### L 500.2500, L100.0100, L501.4020 ####[facility] [address] [place], [address] MCH (RBC) [Entitic mass] 24.9 pg Low 27.0-32.0 [facility] Comment on above: Performed By: #### L 500.2500, L100.0100, L501.4020 ####[facility] [address] [place], [address] MCHC (RBC) [Mass/Vol] 27.9 g/dL Low 32-36 [facility] Comment on above: Performed By: #### L 500.2500, L100.0100, L501.4020 ####[facility] [address] [place], [address] MCV (RBC) [Entitic vol] 89.3 fL Normal 81-99 [facility] Comment on above: Performed By: #### L 500.2500, L100.0100, L501.4020 ####[facility] [address] [place], [address] Monocytes/100 WBC (Bld) 8.0 % Normal 0-10 [facility] Comment on above: Performed By: #### L 500.2500, L100.0100, L501.4020 ####[facility] [address] [place], [address] Neutrophils/100 WBC (Bld) 71.4 % High 47-70 [facility] Comment on above: Performed By: #### L 500.2500, L100.0100, L501.4020 ####[facility] [address] [place], [address] Nucleated RBC (Bld) [#/Vol] 0.2 10*3/uL Normal 0-5 [facility] Comment on above: Performed By: #### L 500.2500, L100.0100, L501.4020 ####[facility] [address] [place], [address] Platelet mean volume (Bld) [Entitic vol] 12.3 fL High 6.2-12.0 [facility] Comment on above: Performed By: #### L 500.2500, L100.0100, L501.4020 ####[facility] [address] [place], [address] Platelets (Bld) [#/Vol] 287 10*3/uL Normal 150-450 [facility] Comment on above: Performed By: #### L 500.2500, L100.0100, L501.4020 ####[facility] [address] [place], [address] RBC (Bld) [#/Vol] 4.38 10*6/uL Normal 4.2-5.4 [facility] Comment on above: Performed By: #### L 500.2500, L100.0100, L501.4020 ####[facility] [address] [place], [address] RDW SD 46.1 fl High 35.1-43.9 [facility] Comment on above: Performed By: #### L 500.2500, L100.0100, L501.4020 ####[facility] [address] [place], [address] WBC (Bld) [#/Vol] 12.2 10*3/uL High 4.4-11.0 [facility] Comment on above: Performed By: #### L 500.2500, L100.0100, L501.4020 ####[facility] [address] [place], [address] Chest 1 View (Portable)on Chest 1 View (Portable) Normal [facility] Emergency Department Summary on 02-18-2024 Emergency Department Summary Normal [facility] L501.4020on 02-18-2024 TROPONIN-I HS 16 pg/mL Normal 3.0-54.0 [facility] Comment on above: Order Comment: 'TROP ' Serial specimen #1, #2 or #3: 1 Result Comment: Plea se Note: New Test Units and Gender Specific Reference Ranges. For more information see Policy Stat Procedure Freeman High Sensitivity Troponin (TNIH) and attachments. Performed By: #### L 500.2500, L100.0100, L501.4020 ####[facility] [address] [place], [address] L501.4020on 02-11-2024 TROPONIN-I HS 15 pg/mL Normal 3.0-54.0 [facility] Comment on above: Order Comment: 512.1 1 Result Comment: Plea se Note: New Test Units and Gender Specific Reference Ranges. For more information see Policy Stat Procedure Freeman High Sensitivity Troponin (TNIH) and attachments. Performed By: #### L 501.4020 ####[facility] [address] [place], [address] Basic Metabolic Profile (BMP )on 01-30-2024 BUN/CRE 29.2 RATIO High 10-20 [facility] Comment on above: Order Comment: 512-1 4 Performed By: #### L 500.2500, L501.5200 ####[facility] [address] [place], [address] CA,Total 9.5 mg/dL Normal 8.5-10.1 [facility] Comment on above: Order Comment: 512-1 4 Performed By: #### L 500.2500, L501.5200 ####[facility] [address] [place], [address] Chloride [Moles/Vol] 110 mmol/L High 98-107 [facility] Comment on above: Order Comment: 512-1 4 Performed By: #### L 500.2500, L501.5200 ####[facility] [address] [place], [address] CO2 [Moles/Vol] 27.0 mmol/L Normal 21.0-32.0 [facility] Comment on above: Order Comment: Performed By: #### L 500.2500, L501.5200 ####[facility] [address] [place], [address] Creatinine [Mass/Vol] 0.99 mg/dL Normal 0.55-1.02 [facility] Comment on above: Order Comment: Result Comment: The validity of the calculated GFR GFRAA in patients over70 years has not been determined. Clinical correlation isessential. Performed By: #### L 500.2500, L501.5200 ####[facility] [address] [place], [address] EST GFR - AA 73 mL/min Normal >60 [facility] Comment on above: Order Comment: Result Comment: Afri can [place] GFR Calc Performed By: #### L 500.2500, L501.5200 ####[facility] [address] [place], [address] GAP 3 Low 5-15 [facility] Comment on above: Order Comment: Performed By: #### L 500.2500, L501.5200 ####[facility] [address] [place], [address] GFR/1.73 sq M.predicted among non-blacks MDRD (S/P/Bld) [Vol rate/Area] 60 mL/min/{1.73_m2} Normal >60 [facility] Comment on above: Order Comment: Result Comment: Non- GFR Calc Performed By: #### L 500.2500, L501.5200 ####[facility] [address] [place], [address] Glucose [Mass/Vol] 94 mg/dL Normal 74-106 [facility] Comment on above: Order Comment: 512-1 4 Performed By: #### L 500.2500, L501.5200 ####[facility] [address] [place], [address] Potassium [Moles/Vol] 4.1 mmol/L Normal 3.5-5.1 [facility] Comment on above: Order Comment: 512-1 4 Result Comment: Mode rate Hemolysis, Result may be falsely increased. Performed By: #### L 500.2500, L501.5200 ####[facility] [address] [place], [address] Sodium [Moles/Vol] 139 mmol/L Normal 136-145 [facility] Comment on above: Order Comment: 512-1 4 Performed By: #### L 500.2500, L501.5200 ####[facility] [address] [place], [address] Urea nitrogen [Mass/Vol] 29 mg/dL High 7-18 [facility] Comment on above: Order Comment: 512-1 4 Performed By: #### L 500.2500, L501.5200 ####[facility] [address] [place], [address] Magnesiumon - Magnesium [Mass/Vol] 2.7 mg/dL High 1.6-2.6 [facility] Comment on above: Order Comment: 512-1 4 Result Comment: Mode rate Hemolysis, Result may be falsely increased. Performed By: #### L 500.2500, L501.5200 ####[facility] [address] [place], [address] CBC W/Diff, Automatedon 10-2 Absolute Lymph 1.86 X10 3/uL Normal 0.83-4.51 [facility] Comment on above: Order Comment: 512.1 Performed By: #### L 100.0100, L501.5200, L500.4050 ####[facility] [address] [place], [address] Absolute Neut 3.0 X10 3/uL Normal 2.0-7.7 [facility] Comment on above: Order Comment: 512.1 Performed By: #### L 100.0100, L501.5200, L500.4050 ####[facility] [address] [place], [address] Basophils/100 WBC (Bld) 0.5 % Normal 0-1 [facility] Comment on above: Order Comment: 512.1 Performed By: #### L 100.0100, L501.5200, L500.4050 ####[facility] [address] [place], [address] Eosinophils/100 WBC (Bld) 2.2 % Normal 0-5 [facility] Comment on above: Order Comment: 512.1 Performed By: #### L 100.0100, L501.5200, L500.4050 ####[facility] [address] [place], [address] Erythrocyte distribution width (RBC) [Ratio] 15.0 % High 11.6-14.6 [facility] Comment on above: Order Comment: 512.1 Performed By: #### L 100.0100, L501.5200, L500.4050 ####[facility] [address] [place], [address] Hematocrit (Bld) [Volume fraction] 35.8 % Low 37-47 [facility] Comment on above: Order Comment: 512.1 Performed By: #### L 100.0100, L501.5200, L500.4050 ####[facility] [address] [place], [address] Hemoglobin (Bld) [Mass/Vol] 10.2 g/dL Low 12.0-15.0 [facility] Comment on above: Order Comment: 512.1 Performed By: #### L 100.0100, L501.5200, L500.4050 ####[facility] [address] [place], [address] IG% 0.700 Normal 0.0-0.9 [facility] Comment on above: Order Comment: 512.1 Result Comment: IG% - Immature Granulocytes (promyelocytes, myelocytes andmetamyelocytes) > 1% indicates that a LEFT SHIFT is Present. Performed By: #### L 100.0100, L501.5200, L500.4050 ####[facility] [address] [place], [address] Lymphocytes/100 WBC (Bld) 32.0 % Normal 19-41 [facility] Comment on above: Order Comment: 512.1 Performed By: #### L 100.0100, L501.5200, L500.4050 ####[facility] [address] [place], [address] MCH (RBC) [Entitic mass] 25.4 pg Low 27.0-32.0 [facility] Comment on above: Order Comment: 512.1 Performed By: #### L 100.0100, L501.5200, L500.4050 ####[facility] [address] [place], [address] MCHC (RBC) [Mass/Vol] 28.5 g/dL Low 32-36 [facility] Comment on above: Order Comment: 512.1 Performed By: #### L 100.0100, L501.5200, L500.4050 ####[facility] [address] [place], [address] MCV (RBC) [Entitic vol] 89.3 fL Normal 81-99 [facility] Comment on above: Order Comment: 512.1 Performed By: #### L 100.0100, L501.5200, L500.4050 ####[facility] [address] [place], [address] Monocytes/100 WBC (Bld) 13.1 % High 0-10 [facility] Comment on above: Order Comment: 512.1 Performed By: #### L 100.0100, L501.5200, L500.4050 ####[facility] [address] [place], [address] Neutrophils/100 WBC (Bld) 51.5 % Normal 47-70 [facility] Comment on above: Order Comment: 512.1 Performed By: #### L 100.0100, L501.5200, L500.4050 ####[facility] [address] [place], [address] Nucleated RBC (Bld) [#/Vol] 0 10*3/uL Normal 0-5 [facility] Comment on above: Order Comment: 512.1 Performed By: #### L 100.0100, L501.5200, L500.4050 ####[facility] [address] [place], [address] Platelet mean volume (Bld) [Entitic vol] 12.6 fL High 6.2-12.0 [facility] Comment on above: Order Comment: 512.1 Performed By: #### L 100.0100, L501.5200, L500.4050 ####[facility] [address] [place], [address] Platelets (Bld) [#/Vol] 171 10*3/uL Normal 150-450 [facility] Comment on above: Order Comment: 512.1 Performed By: #### L 100.0100, L501.5200, L500.4050 ####[facility] [address] [place], [address] RBC (Bld) [#/Vol] 4.01 10*6/uL Low 4.2-5.4 [facility] Comment on above: Order Comment: 512.1 Performed By: #### L 100.0100, L501.5200, L500.4050 ####[facility] [address] [place], [address] RDW SD 49.0 fl High 35.1-43.9 [facility] Comment on above: Order Comment: 512.1 Performed By: #### L 100.0100, L501.5200, L500.4050 ####[facility] [address] [place], [address] WBC (Bld) [#/Vol] 5.8 10*3/uL Normal 4.4-11.0 [facility] Comment on above: Order Comment: 512.1 Performed By: #### L 100.0100, L501.5200, L500.4050 ####[facility] [address] [place], [address] Comprehensive Metabolic Prof ilon 01-28-2024 Albumin [Mass/Vol] 2.7 g/dL Low 3.2-5.0 [facility] Comment on above: Order Comment: 512.1 Performed By: #### L 100.0100, L501.5200, L500.4050 ####[facility] [address] [place], [address] Albumin/Globulin [Mass ratio] 0.9 {ratio} Normal 0.9-2.4 [facility] Comment on above: Order Comment: 512.1 Performed By: #### L 100.0100, L501.5200, L500.4050 ####[facility] [address] [place], [address] ALK P 62 U/L Normal 45-117 [facility] Comment on above: Order Comment: 512.1 Performed By: #### L 100.0100, L501.5200, L500.4050 ####[facility] [address] [place], [address] ALT [Catalytic activity/Vol] 12 U/L Low 13-56 [facility] Comment on above: Order Comment: 512.1 Performed By: #### L 100.0100, L501.5200, L500.4050 ####[facility] [address] [place], [address] AST [Catalytic activity/Vol] 9 U/L Low 15-37 [facility] Comment on above: Order Comment: 512.1 Performed By: #### L 100.0100, L501.5200, L500.4050 ####[facility] [address] [place], [address] Bilirubin [Mass/Vol] 0.30 mg/dL Normal 0.20-1.00 [facility] Comment on above: Order Comment: 512.1 Result Comment: For patients on eltrombopag therapy, use of Dimension Freeman TBIL is not recommended. Performed By: #### L 100.0100, L501.5200, L500.4050 ####[facility] [address] [place], [address] BUN/CRE 34.8 RATIO High 10-20 [facility] Comment on above: Order Comment: 512.1 Performed By: #### L 100.0100, L501.5200, L500.4050 ####[facility] [address] [place], [address] CA,Total 9.5 mg/dL Normal 8.5-10.1 [facility] Comment on above: Order Comment: 512.1 Performed By: #### L 100.0100, L501.5200, L500.4050 ####[facility] [address] [place], [address] Chloride [Moles/Vol] 97 mmol/L Low 98-107 [facility] Comment on above: Order Comment: 512.1 Performed By: #### L 100.0100, L501.5200, L500.4050 ####[facility] [address] [place], [address] CO2 [Moles/Vol] 42.0 mmol/L High 21.0-32.0 [facility] Comment on above: Order Comment: 512.1 Performed By: #### L 100.0100, L501.5200, L500.4050 ####[facility] [address] [place], [address] Creatinine [Mass/Vol] 0.49 mg/dL Low 0.55-1.02 [facility] Comment on above: Order Comment: 512.1 Result Comment: The validity of the calculated GFR GFRAA in patients over70 years has not been determined. Clinical correlation isessential. Performed By: #### L 100.0100, L501.5200, L500.4050 ####[facility] [address] [place], [address] EST GFR - AA 165 mL/min Normal >60 [facility] Comment on above: Order Comment: 512.1 Result Comment: Afri can [place]ian GFR Calc Performed By: #### L 100.0100, L501.5200, L500.4050 ####[facility] [address] [place], [address] GAP 1 Low 5-15 [facility] Comment on above: Order Comment: 512.1 Performed By: #### L 100.0100, L501.5200, L500.4050 ####[facility] [address] [place], [address] GFR/1.73 sq M.predicted among non-blacks MDRD (S/P/Bld) [Vol rate/Area] 136 mL/min/{1.73_m2} Normal >60 [facility] Comment on above: Order Comment: 512.1 Result Comment: Non- GFR Calc Performed By: #### L 100.0100, L501.5200, L500.4050 ####[facility] [address] [place], [address] Globulin (S) [Mass/Vol] 3.1 g/dL Normal 2.2-4.2 [facility] Comment on above: Order Comment: 512.1 Performed By: #### L 100.0100, L501.5200, L500.4050 ####[facility] [address] [place], [address] Glucose [Mass/Vol] 92 mg/dL Normal 74-106 [facility] Comment on above: Order Comment: 512.1 Performed By: #### L 100.0100, L501.5200, L500.4050 ####[facility] [address] [place], [address] Potassium [Moles/Vol] 3.4 mmol/L Low 3.5-5.1 [facility] Comment on above: Order Comment: 512.1 Performed By: #### L 100.0100, L501.5200, L500.4050 ####[facility] [address] [place], [address] Sodium [Moles/Vol] 140 mmol/L Normal 136-145 [facility] Comment on above: Order Comment: 512.1 Performed By: #### L 100.0100, L501.5200, L500.4050 ####[facility] [address] [place], [address] T PROT 5.8 g/dL Low 6.4-8.2 [facility] Comment on above: Order Comment: 512.1 Performed By: #### L 100.0100, L501.5200, L500.4050 ####[facility] [address] [place], [address] Urea nitrogen [Mass/Vol] 17 mg/dL Normal 7-18 [facility] Comment on above: Order Comment: 512.1 Performed By: #### L 100.0100, L501.5200, L500.4050 ####[facility] [address] [place], [address] Magnesiumon 01-28-2024 Magnesium [Mass/Vol] 1.8 mg/dL Normal 1.6-2.6 [facility] Comment on above: Order Comment: 512.1 Performed By: #### L 100.0100, L501.5200, L500.4050 ####[facility] [address] [place], [address] CBC W/Diff, Automatedon 01-07 Absolute Lymph 2.87 X10 3/uL Normal 0.83-4.51 [facility] Comment on above: Order Comment: 512.1 Performed By: #### L 501.5200, L100.0100, L500.4050 ####[facility] [address] [place], [address] Absolute Neut 3.3 X10 3/uL Normal 2.0-7.7 [facility] Comment on above: Order Comment: 512.1 Performed By: #### L 501.5200, L100.0100, L500.4050 ####[facility] [address] [place], [address] Basophils/100 WBC (Bld) 0.1 % Normal 0-1 [facility] Comment on above: Order Comment: 512.1 Performed By: #### L 501.5200, L100.0100, L500.4050 ####[facility] [address] [place], [address] Eosinophils/100 WBC (Bld) 1.0 % Normal 0-5 [facility] Comment on above: Order Comment: 512.1 Performed By: #### L 501.5200, L100.0100, L500.4050 ####[facility] [address] [place], [address] Erythrocyte distribution width (RBC) [Ratio] 15.7 % High 11.6-14.6 [facility] Comment on above: Order Comment: 512.1 Performed By: #### L 501.5200, L100.0100, L500.4050 ####[facility] [address] [place], [address] Hematocrit (Bld) [Volume fraction] 30.6 % Low 37-47 [facility] Comment on above: Order Comment: 512.1 Performed By: #### L 501.5200, L100.0100, L500.4050 ####[facility] [address] [place], [address] Hemoglobin (Bld) [Mass/Vol] 8.6 g/dL Low 12.0-15.0 [facility] Comment on above: Order Comment: 512.1 Performed By: #### L 501.5200, L100.0100, L500.4050 ####[facility] [address] [place], [address] IG% 0.700 Normal 0.0-0.9 [facility] Comment on above: Order Comment: 512.1 Result Comment: IG% - Immature Granulocytes (promyelocytes, myelocytes andmetamyelocytes) > 1% indicates that a LEFT SHIFT is Present. Performed By: #### L 501.5200, L100.0100, L500.4050 ####[facility] [address] [place], [address] Lymphocytes/100 WBC (Bld) 40.1 % Normal 19-41 [facility] Comment on above: Order Comment: 512.1 Performed By: #### L 501.5200, L100.0100, L500.4050 ####[facility] [address] [place], [address] MCH (RBC) [Entitic mass] 24.6 pg Low 27.0-32.0 [facility] Comment on above: Order Comment: 512.1 Performed By: #### L 501.5200, L100.0100, L500.4050 ####[facility] [address] [place], [address] MCHC (RBC) [Mass/Vol] 28.1 g/dL Low 32-36 [facility] Comment on above: Order Comment: 512.1 Performed By: #### L 501.5200, L100.0100, L500.4050 ####[facility] [address] [place], [address] MCV (RBC) [Entitic vol] 87.7 fL Normal 81-99 [facility] Comment on above: Order Comment: 512.1 Performed By: #### L 501.5200, L100.0100, L500.4050 ####[facility] [address] [place], [address] Monocytes/100 WBC (Bld) 11.9 % High 0-10 [facility] Comment on above: Order Comment: 512.1 Performed By: #### L 501.5200, L100.0100, L500.4050 ####[facility] [address] [place], [address] Neutrophils/100 WBC (Bld) 46.2 % Low 47-70 [facility] Comment on above: Order Comment: 512.1 Performed By: #### L 501.5200, L100.0100, L500.4050 ####[facility] [address] [place], [address] Nucleated RBC (Bld) [#/Vol] 0 10*3/uL Normal 0-5 [facility] Comment on above: Order Comment: 512.1 Performed By: #### L 501.5200, L100.0100, L500.4050 ####[facility] [address] [place], [address] Platelet mean volume (Bld) [Entitic vol] 12.7 fL High 6.2-12.0 [facility] Comment on above: Order Comment: 512.1 Performed By: #### L 501.5200, L100.0100, L500.4050 ####[facility] [address] [place], [address] Platelets (Bld) [#/Vol] 187 10*3/uL Normal 150-450 [facility] Comment on above: Order Comment: 512.1 Performed By: #### L 501.5200, L100.0100, L500.4050 ####[facility] [address] [place], [address] RBC (Bld) [#/Vol] 3.49 10*6/uL Low 4.2-5.4 [facility] Comment on above: Order Comment: 512.1 Performed By: #### L 501.5200, L100.0100, L500.4050 ####[facility] [address] [place], [address] RDW SD 49.3 fl High 35.1-43.9 [facility] Comment on above: Order Comment: 512.1 Performed By: #### L 501.5200, L100.0100, L500.4050 ####[facility] [address] [place], [address] WBC (Bld) [#/Vol] 7.2 10*3/uL Normal 4.4-11.0 [facility] Comment on above: Order Comment: 512.1 Performed By: #### L 501.5200, L100.0100, L500.4050 ####[facility] [address] [place], [address] Comprehensive Metabolic Prof ilon 01-23-2024 Albumin [Mass/Vol] 2.5 g/dL Low 3.2-5.0 [facility] Comment on above: Order Comment: 512.1 Performed By: #### L 501.5200, L100.0100, L500.4050 ####[facility] [address] [place], [address] Albumin/Globulin [Mass ratio] 0.9 {ratio} Normal 0.9-2.4 [facility] Comment on above: Order Comment: 512.1 Performed By: #### L 501.5200, L100.0100, L500.4050 ####[facility] [address] [place], [address] ALK P 54 U/L Normal 45-117 [facility] Comment on above: Order Comment: 512.1 Performed By: #### L 501.5200, L100.0100, L500.4050 ####[facility] [address] [place], [address] ALT [Catalytic activity/Vol] 8 U/L Low 13-56 [facility] Comment on above: Order Comment: 512.1 Performed By: #### L 501.5200, L100.0100, L500.4050 ####[facility] [address] [place], [address] AST [Catalytic activity/Vol] 8 U/L Low 15-37 [facility] Comment on above: Order Comment: 512.1 Performed By: #### L 501.5200, L100.0100, L500.4050 ####[facility] [address] [place], [address] Bilirubin [Mass/Vol] 0.30 mg/dL Normal 0.20-1.00 [facility] Comment on above: Order Comment: 512.1 Result Comment: For patients on eltrombopag therapy, use of Dimension Freeman TBIL is not recommended. Performed By: #### L 501.5200, L100.0100, L500.4050 ####[facility] [address] [place], [address] BUN/CRE 26.2 RATIO High 10-20 [facility] Comment on above: Order Comment: 512.1 Performed By: #### L 501.5200, L100.0100, L500.4050 ####[facility] [address] [place], [address] CA,Total 9.1 mg/dL Normal 8.5-10.1 [facility] Comment on above: Order Comment: 512.1 Performed By: #### L 501.5200, L100.0100, L500.4050 ####[facility] [address] [place], [address] Chloride [Moles/Vol] 103 mmol/L Normal 98-107 [facility] Comment on above: Order Comment: 512.1 Performed By: #### L 501.5200, L100.0100, L500.4050 ####[facility] [address] [place], [address] CO2 [Moles/Vol] 34.0 mmol/L High 21.0-32.0 [facility] Comment on above: Order Comment: 512.1 Performed By: #### L 501.5200, L100.0100, L500.4050 ####[facility] [address] [place], [address] Creatinine [Mass/Vol] 0.80 mg/dL Normal 0.55-1.02 [facility] Comment on above: Order Comment: 512.1 Result Comment: The validity of the calculated GFR GFRAA in patients over70 years has not been determined. Clinical correlation isessential. Performed By: #### L 501.5200, L100.0100, L500.4050 ####[facility] [address] [place], [address] EST GFR - AA 93 mL/min Normal >60 [facility] Comment on above: Order Comment: 512.1 Result Comment: Afri can [place] GFR Calc Performed By: #### L 501.5200, L100.0100, L500.4050 ####[facility] [address] [place], [address] GAP 5 Normal 5-15 [facility] Comment on above: Order Comment: 512.1 Performed By: #### L 501.5200, L100.0100, L500.4050 ####[facility] [address] [place], [address] GFR/1.73 sq M.predicted among non-blacks MDRD (S/P/Bld) [Vol rate/Area] 77 mL/min/{1.73_m2} Normal >60 [facility] Comment on above: Order Comment: 512.1 Result Comment: Non- GFR Calc Performed By: #### L 501.5200, L100.0100, L500.4050 ####[facility] [address] [place], [address] Globulin (S) [Mass/Vol] 2.9 g/dL Normal 2.2-4.2 [facility] Comment on above: Order Comment: 512.1 Performed By: #### L 501.5200, L100.0100, L500.4050 ####[facility] [address] [place], [address] Glucose [Mass/Vol] 82 mg/dL Normal 74-106 [facility] Comment on above: Order Comment: 512.1 Performed By: #### L 501.5200, L100.0100, L500.4050 ####[facility] [address] [place], [address] Potassium [Moles/Vol] 3.4 mmol/L Low 3.5-5.1 [facility] Comment on above: Order Comment: 512.1 Performed By: #### L 501.5200, L100.0100, L500.4050 ####[facility] [address] [place], [address] Sodium [Moles/Vol] 142 mmol/L Normal 136-145 [facility] Comment on above: Order Comment: 512.1 Performed By: #### L 501.5200, L100.0100, L500.4050 ####[facility] [address] [place], [address] T PROT 5.4 g/dL Low 6.4-8.2 [facility] Comment on above: Order Comment: 512.1 Performed By: #### L 501.5200, L100.0100, L500.4050 ####[facility] [address] [place], [address] Urea nitrogen [Mass/Vol] 21 mg/dL High 7-18 [facility] Comment on above: Order Comment: 512.1 Performed By: #### L 501.5200, L100.0100, L500.4050 ####[facility] [address] [place], [address] Culture, Blood (WB)on 2023 CUB Blood cultures x2, from two different sites No growth in 5 days. Normal [facility] Comment on above: Performed By: #### M 200.1000 ####[facility] [address] [place], [address] Magnesiumon 01-23-2024 Magnesium [Mass/Vol] 1.5 mg/dL Low 1.6-2.6 [facility] Comment on above: Order Comment: 512.1 Performed By: #### L 501.5200, L100.0100, L500.4050 ####[facility] [address] [place], [address] Bedside Glucoseon 01-22-2024 FINGERSTICK GLU 117 mg/dL High 74-106 [facility] Comment on above: Result Comment: GODFREY GEMENT OF PATIENT CARE PER NURSING PROTOCOL Performed By: #### L 501.080 ####[facility] [address] [place], [address] FINGERSTICK GLU 134 mg/dL High 74-106 [facility] Comment on above: Result Comment: GODFREY GEMENT OF PATIENT CARE PER NURSING PROTOCOL Performed By: #### L 501.080 ####[facility] [address] [place], [address] FINGERSTICK GLU 97 mg/dL Normal 74-106 [facility] Comment on above: Result Comment: GODFREY GEMENT OF PATIENT CARE PER NURSING PROTOCOL Performed By: #### L 501.080 ####[facility] [address] [place], [address] Basic Metabolic Profile (BMP )on 01-21-2024 BUN/CRE 32.5 RATIO High 10-20 [facility] Comment on above: Performed By: #### L 500.2500, L100.0100 ####[facility] [address] [place], [address] CA,Total 10.0 mg/dL Normal 8.5-10.1 [facility] Comment on above: Performed By: #### L 500.2500, L100.0100 ####[facility] [address] [place], [address] Chloride [Moles/Vol] 103 mmol/L Normal 98-107 [facility] Comment on above: Performed By: #### L 500.2500, L100.0100 ####[facility] [address] [place], [address] CO2 [Moles/Vol] 36.0 mmol/L High 21.0-32.0 [facility] Comment on above: Performed By: #### L 500.2500, L100.0100 ####[facility] [address] [place], [address] Creatinine [Mass/Vol] 0.65 mg/dL Normal 0.55-1.02 [facility] Comment on above: Result Comment: The validity of the calculated GFR GFRAA in patients over70 years has not been determined. Clinical correlation isessential. Performed By: #### L 500.2500, L100.0100 ####[facility] [address] [place], [address] ECRCL 137.31 ml/min Normal [facility] Comment on above: Performed By: #### L 500.2500, L100.0100 ####[facility] [address] [place], [address] EST GFR - AA 120 mL/min Normal >60 [facility] Comment on above: Result Comment: Afri can [place] GFR Calc Performed By: #### L 500.2500, L100.0100 ####[facility] [address] [place], [address] GAP 2 Low 5-15 [facility] Comment on above: Performed By: #### L 500.2500, L100.0100 ####[facility] [address] [place], [address] GFR/1.73 sq M.predicted among non-blacks MDRD (S/P/Bld) [Vol rate/Area] 99 mL/min/{1.73_m2} Normal >60 [facility] Comment on above: Result Comment: Non- GFR Calc Performed By: #### L 500.2500, L100.0100 ####[facility] [address] [place], [address] Glucose [Mass/Vol] 149 mg/dL High 74-106 [facility] Comment on above: Result Comment: Fast ing Glucose result greater than or equal to 126 mg/dLsuggests DIABETES MELLITUS per A.D.A. criteria. Performed By: #### L 500.2500, L100.0100 ####[facility] [address] [place], [address] Potassium [Moles/Vol] 4.4 mmol/L Normal 3.5-5.1 [facility] Comment on above: Performed By: #### L 500.2500, L100.0100 ####[facility] [address] [place], [address] Sodium [Moles/Vol] 142 mmol/L Normal 136-145 [facility] Comment on above: Performed By: #### L 500.2500, L100.0100 ####[facility] [address] [place], [address] Urea nitrogen [Mass/Vol] 21 mg/dL High 7-18 [facility] Comment on above: Performed By: #### L 500.2500, L100.0100 ####[facility] [address] [place], [address] Bedside Glucoseon 01-21-2024 FINGERSTICK GLU 114 mg/dL High 74-106 [facility] Comment on above: Result Comment: GODFREY GEMENT OF PATIENT CARE PER NURSING PROTOCOL Performed By: #### L 501.080 ####[facility] [address] [place], [address] FINGERSTICK GLU 99 mg/dL Normal 74-106 [facility] Comment on above: Result Comment: GODFREY GEMENT OF PATIENT CARE PER NURSING PROTOCOL Performed By: #### L 501.080 ####[facility] [address] [place], [address] FINGERSTICK GLU 151 mg/dL High 74-106 [facility] Comment on above: Result Comment: GODFREY GEMENT OF PATIENT CARE PER NURSING PROTOCOL Performed By: #### L 501.080 ####[facility] [address] [place], [address] CBC W/Diff, Automatedon 10- Absolute Lymph 0.75 X10 3/uL Low 0.83-4.51 [facility] Comment on above: Performed By: #### L 500.2500, L100.0100 ####[facility] [address] [place], [address] Absolute Neut 4.7 X10 3/uL Normal 2.0-7.7 [facility] Comment on above: Performed By: #### L 500.2500, L100.0100 ####[facility] [address] [place], [address] Basophils/100 WBC (Bld) 0.2 % Normal 0-1 [facility] Comment on above: Performed By: #### L 500.2500, L100.0100 ####[facility] [address] [place], [address] Eosinophils/100 WBC (Bld) 0.2 % Normal 0-5 [facility] Comment on above: Performed By: #### L 500.2500, L100.0100 ####[facility] [address] [place], [address] Erythrocyte distribution width (RBC) [Ratio] 15.6 % High 11.6-14.6 [facility] Comment on above: Performed By: #### L 500.2500, L100.0100 ####[facility] [address] [place], [address] Hematocrit (Bld) [Volume fraction] 30.1 % Low 37-47 [facility] Comment on above: Performed By: #### L 500.2500, L100.0100 ####[facility] [address] [place], [address] Hemoglobin (Bld) [Mass/Vol] 8.6 g/dL Low 12.0-15.0 [facility] Comment on above: Performed By: #### L 500.2500, L100.0100 ####[facility] [address] [place], [address] IG% 0.700 Normal 0.0-0.9 [facility] Comment on above: Result Comment: IG% - Immature Granulocytes (promyelocytes, myelocytes andmetamyelocytes) > 1% indicates that a LEFT SHIFT is Present. Performed By: #### L 500.2500, L100.0100 ####[facility] [address] [place], [address] Lymphocytes/100 WBC (Bld) 13.1 % Low 19-41 [facility] Comment on above: Performed By: #### L 500.2500, L100.0100 ####[facility] [address] [place], [address] MCH (RBC) [Entitic mass] 25.4 pg Low 27.0-32.0 [facility] Comment on above: Performed By: #### L 500.2500, L100.0100 ####[facility] [address] [place], [address] MCHC (RBC) [Mass/Vol] 28.6 g/dL Low 32-36 [facility] Comment on above: Performed By: #### L 500.2500, L100.0100 ####[facility] [address] [place], [address] MCV (RBC) [Entitic vol] 88.8 fL Normal 81-99 [facility] Comment on above: Performed By: #### L 500.2500, L100.0100 ####[facility] [address] [place], [address] Monocytes/100 WBC (Bld) 4.2 % Normal 0-10 [facility] Comment on above: Performed By: #### L 500.2500, L100.0100 ####[facility] [address] [place], [address] Neutrophils/100 WBC (Bld) 81.6 % High 47-70 [facility] [facility] Comment on above: Performed By: #### L 500.2500, L100.0100 ####[facility] [address] [place], [address] Nucleated RBC (Bld) [#/Vol] 0 10*3/uL Normal 0-5 [facility] Comment on above: Performed By: #### L 500.2500, L100.0100 ####[facility] [address] [place], [address] Platelet mean volume (Bld) [Entitic vol] 12.2 fL High 6.2-12.0 [facility] Comment on above: Performed By: #### L 500.2500, L100.0100 ####[facility] [address] [place], [address] Platelets (Bld) [#/Vol] 171 10*3/uL Normal 150-450 [facility] Comment on above: Performed By: #### L 500.2500, L100.0100 ####[facility] [address] [place], [address] RBC (Bld) [#/Vol] 3.39 10*6/uL Low 4.2-5.4 [facility] Comment on above: Performed By: #### L 500.2500, L100.0100 ####[facility] [address] [place], [address] RDW SD 49.5 fl High 35.1-43.9 [facility] Comment on above: Performed By: #### L 500.2500, L100.0100 ####[facility] [address] [place], [address] WBC (Bld) [#/Vol] 5.7 10*3/uL Normal 4.4-11.0 [facility] Comment on above: Performed By: #### L 500.2500, L100.0100 ####[facility] [address] [place], [place], [id number] CDIFF (PCR)on 01-21-2024 CDIFF Is the patient receiving laxatives? N New/unexplained onset of 3 or more stools in past 24 hrs? Y Pending 027 027 NAP1-B1 Presumptive Negative *for epidemiolologic???use C. Diff PCR Negative- No toxigenic C. Diff Detected Normal [facility] Comment on above: Performed By: #### M 100.6796 ####[facility] [address] [place], [place], [id number] Vancomycin, Random Levelon 1 VANCO, RANDOM 14.6 ug/mL Normal 0.0-15.0 [facility] Comment on above: Result Comment: VANC OMYCIN STANDARD DRUG THERAPY: CRITICAL VALUE IS > 15.0 mg/LVANCOMYCIN HIGH INTENSITY THERAPY: CRITICAL VALUE IS > 20.0 mg/LPLEASE CONTACT PHARMACY SERVICES (#4534) FOR INTERPRETATIONOF RESULTS. THIS RESULT DOES NOT REPRESENT A PEAK OR TROUGHLEVEL FOR THIS DRUG. Performed By: #### L 501.8850 ####[facility] [address] [place], [place], [id number] Basic Metabolic Profile (BMP )on 01-20-2024 BUN Normal 7-18 [facility] Comment on above: Result Comment: Canc elled via OM: Ordered/Entered in error Performed By: #### L 500.2500 ####[facility] [address] [place], [address] BUN/CRE Normal 10-20 [facility] Comment on above: Result Comment: Canc elled via OM: Ordered/Entered in error Performed By: #### L 500.2500 ####[facility] [address] [place], [place], [id number] CA,Total Normal 8.5-10.1 [facility] Comment on above: Result Comment: Canc elled via OM: Ordered/Entered in error Performed By: #### L 500.2500 ####[facility] [address] [place], [address] CL Normal 98-107 [facility] Comment on above: Result Comment: Canc elled via OM: Ordered/Entered in error Performed By: #### L 500.2500 ####[facility] [address] [place], [address] CO2 Normal 21.0-32.0 [facility] Comment on above: Result Comment: Canc elled via OM: Ordered/Entered in error Performed By: #### L 500.2500 ####[facility] [address] [place], [address] CREAT,SERUM Normal 0.55-1.02 [facility] Comment on above: Result Comment: Canc elled via OM: Ordered/Entered in error Performed By: #### L 500.2500 ####[facility] [address] [place], [address] EST GFR Normal >60 [facility] Comment on above: Result Comment: Canc elled via OM: Ordered/Entered in error Performed By: #### L 500.2500 ####[facility] [address] [place], [address] EST GFR - AA Normal >60 [facility] Comment on above: Result Comment: Canc elled via OM: Ordered/Entered in error Performed By: #### L 500.2500 ####[facility] [address] [place], [address] GAP Normal 5-15 [facility] Comment on above: Result Comment: Canc elled via OM: Ordered/Entered in error Performed By: #### L 500.2500 ####[facility] [address] [place], [address] GLU Normal 74-106 [facility] Comment on above: Result Comment: Canc elled via OM: Ordered/Entered in error Performed By: #### L 500.2500 ####[facility] [address] [place], [address] Potassium Normal 3.5-5.1 [facility] Comment on above: Result Comment: Canc elled via OM: Ordered/Entered in error Performed By: #### L 500.2500 ####[facility] [address] [place], [address] Basic Metabolic Profile (BMP) Normal 136-145 [facility] Comment on above: Result Comment: Canc elled via OM: Ordered/Entered in error Performed By: #### L 500.2500 ####[facility] [address] [place], [address] BUN Normal 7-18 [facility] Comment on above: Result Comment: Canc elled via OM: Ordered/Entered in error Performed By: #### L 500.2500 ####[facility] [address] [place], [address] BUN/CRE Normal 10-20 [facility] Comment on above: Result Comment: Canc elled via OM: Ordered/Entered in error Performed By: #### L 500.2500 ####[facility] [address] [place], [address] CA,Total Normal 8.5-10.1 [facility] Comment on above: Result Comment: Canc elled via OM: Ordered/Entered in error Performed By: #### L 500.2500 ####[facility] [address] [place], [address] CL Normal 98-107 [facility] Comment on above: Result Comment: Canc elled via OM: Ordered/Entered in error Performed By: #### L 500.2500 ####[facility] [address] [place], [address] CO2 Normal 21.0-32.0 [facility] Comment on above: Result Comment: Canc elled via OM: Ordered/Entered in error Performed By: #### L 500.2500 ####[facility] [address] [place], [address] CREAT,SERUM Normal 0.55-1.02 [facility] Comment on above: Result Comment: Canc elled via OM: Ordered/Entered in error Performed By: #### L 500.2500 ####[facility] [address] [place], [address] EST GFR Normal >60 [facility] Comment on above: Result Comment: Canc elled via OM: Ordered/Entered in error Performed By: #### L 500.2500 ####[facility] [address] [place], [address] EST GFR - AA Normal >60 [facility] Comment on above: Result Comment: Canc elled via OM: Ordered/Entered in error Performed By: #### L 500.2500 ####[facility] [address] [place], [address] GAP Normal 5-15 [facility] Comment on above: Result Comment: Canc elled via OM: Ordered/Entered in error Performed By: #### L 500.2500 ####[facility] [address] [place], [address] GLU Normal 74-106 [facility] Comment on above: Result Comment: Canc elled via OM: Ordered/Entered in error Performed By: #### L 500.2500 ####[facility] [address] [place], [address] Potassium Normal 3.5-5.1 [facility] Comment on above: Result Comment: Canc elled via OM: Ordered/Entered in error Performed By: #### L 500.2500 ####[facility] [address] [place], [address] Basic Metabolic Profile (BMP) Normal 136-145 [facility] Comment on above: Result Comment: Canc elled via OM: Ordered/Entered in error Performed By: #### L 500.2500 ####[facility] [address] [place], [address] Bedside Glucoseon 01-20-2024 FINGERSTICK GLU 99 mg/dL Normal 74-106 [facility] Comment on above: Result Comment: GODFREY GEMENT OF PATIENT CARE PER NURSING PROTOCOL Performed By: #### L 501.080 ####[facility] [address] [place], [address] FINGERSTICK GLU 146 mg/dL High 74-106 [facility] Comment on above: Result Comment: GODFREY GEMENT OF PATIENT CARE PER NURSING PROTOCOL Performed By: #### L 501.080 ####[facility] [address] [place], [address] FINGERSTICK GLU 156 mg/dL High 74-106 [facility] Comment on above: Result Comment: GODFREY GEMENT OF PATIENT CARE PER NURSING PROTOCOL Performed By: #### L 501.080 ####[facility] [address] [place], [address] FINGERSTICK GLU 118 mg/dL High 74-106 [facility] Comment on above: Result Comment: GODFREY GEMENT OF PATIENT CARE PER NURSING PROTOCOL Performed By: #### L 501.080 ####[facility] [address] [place], [address] CBC W/Diff, Automatedon 01-07 Absolute Lymph 0.78 X10 3/uL Low 0.83-4.51 [facility] Comment on above: Performed By: #### L 100.0100, L501.2300, L500.4050, L501.5200 ####[facility] [address] [place], [address] Absolute Neut 4.5 X10 3/uL Normal 2.0-7.7 [facility] Comment on above: Performed By: #### L 100.0100, L501.2300, L500.4050, L501.5200 ####[facility] [address] [place], [address] Basophils/100 WBC (Bld) 0.2 % Normal 0-1 [facility] Comment on above: Performed By: #### L 100.0100, L501.2300, L500.4050, L501.5200 ####[facility] [address] [place], [address] Eosinophils/100 WBC (Bld) 0.0 % Normal 0-5 [facility] Comment on above: Performed By: #### L 100.0100, L501.2300, L500.4050, L501.5200 ####[facility] [address] [place], [address] Erythrocyte distribution width (RBC) [Ratio] 15.6 % High 11.6-14.6 [facility] Comment on above: Performed By: #### L 100.0100, L501.2300, L500.4050, L501.5200 ####[facility] [address] [place], [address] Hematocrit (Bld) [Volume fraction] 29.8 % Low 37-47 [facility] Comment on above: Performed By: #### L 100.0100, L501.2300, L500.4050, L501.5200 ####[facility] [address] [place], [address] Hemoglobin (Bld) [Mass/Vol] 8.5 g/dL Low 12.0-15.0 [facility] Comment on above: Performed By: #### L 100.0100, L501.2300, L500.4050, L501.5200 ####[facility] [address] [place], [address] IG% 1.100 High 0.0-0.9 [facility] Comment on above: Result Comment: IG% - Immature Granulocytes (promyelocytes, myelocytes andmetamyelocytes) > 1% indicates that a LEFT SHIFT is Present. Performed By: #### L 100.0100, L501.2300, L500.4050, L501.5200 ####[facility] [address] [place], [address] Lymphocytes/100 WBC (Bld) 14.2 % Low 19-41 [facility] Comment on above: Performed By: #### L 100.0100, L501.2300, L500.4050, L501.5200 ####[facility] [address] [place], [address] MCH (RBC) [Entitic mass] 25.4 pg Low 27.0-32.0 [facility] Comment on above: Performed By: #### L 100.0100, L501.2300, L500.4050, L501.5200 ####[facility] [address] [place], [address] MCHC (RBC) [Mass/Vol] 28.5 g/dL Low 32-36 [facility] Comment on above: Performed By: #### L 100.0100, L501.2300, L500.4050, L501.5200 ####[facility] [address] [place], [address] MCV (RBC) [Entitic vol] 89.0 fL Normal 81-99 [facility] Comment on above: Performed By: #### L 100.0100, L501.2300, L500.4050, L501.5200 ####[facility] [address] [place], [address] Monocytes/100 WBC (Bld) 2.4 % Normal 0-10 [facility] Comment on above: Performed By: #### L 100.0100, L501.2300, L500.4050, L501.5200 ####[facility] [address] [place], [address] Neutrophils/100 WBC (Bld) 82.1 % High 47-70 [facility] Comment on above: Performed By: #### L 100.0100, L501.2300, L500.4050, L501.5200 ####[facility] [address] [place], [address] Nucleated RBC (Bld) [#/Vol] 0 10*3/uL Normal 0-5 [facility] Comment on above: Performed By: #### L 100.0100, L501.2300, L500.4050, L501.5200 ####[facility] [address] [place], [address] Platelet mean volume (Bld) [Entitic vol] 12.1 fL High 6.2-12.0 [facility] Comment on above: Performed By: #### L 100.0100, L501.2300, L500.4050, L501.5200 ####[facility] [address] [place], [address] Platelets (Bld) [#/Vol] 180 10*3/uL Normal 150-450 [facility] Comment on above: Performed By: #### L 100.0100, L501.2300, L500.4050, L501.5200 ####[facility] [address] [place], [address] RBC (Bld) [#/Vol] 3.35 10*6/uL Low 4.2-5.4 [facility] Comment on above: Performed By: #### L 100.0100, L501.2300, L500.4050, L501.5200 ####[facility] [address] [place], [address] RDW SD 49.9 fl High 35.1-43.9 [facility] Comment on above: Performed By: #### L 100.0100, L501.2300, L500.4050, L501.5200 ####[facility] [address] [place], [address] WBC (Bld) [#/Vol] 5.5 10*3/uL Normal 4.4-11.0 [facility] Comment on above: Performed By: #### L 100.0100, L501.2300, L500.4050, L501.5200 ####[facility] [address] [place], [address] Comprehensive Metabolic Prof ilon 01-20-2024 Albumin [Mass/Vol] 2.5 g/dL Low 3.2-5.0 [facility] Comment on above: Performed By: #### L 100.0100, L501.2300, L500.4050, L501.5200 ####[facility] [address] [place], [address] Albumin/Globulin [Mass ratio] 0.8 {ratio} Low 0.9-2.4 [facility] Comment on above: Performed By: #### L 100.0100, L501.2300, L500.4050, L501.5200 ####[facility] [address] [place], [address] ALK P 62 U/L Normal 45-117 [facility] Comment on above: Performed By: #### L 100.0100, L501.2300, L500.4050, L501.5200 ####[facility] [address] [place], [address] ALT [Catalytic activity/Vol] 11 U/L Low 13-56 [facility] Comment on above: Performed By: #### L 100.0100, L501.2300, L500.4050, L501.5200 ####[facility] [address] [place], [address] AST [Catalytic activity/Vol] 7 U/L Low 15-37 [facility] Comment on above: Performed By: #### L 100.0100, L501.2300, L500.4050, L501.5200 ####[facility] [address] [place], [address] Bilirubin [Mass/Vol] 0.30 mg/dL Normal 0.20-1.00 [facility] Comment on above: Result Comment: For patients on eltrombopag therapy, use of Dimension Freeman TBIL is not recommended. Performed By: #### L 100.0100, L501.2300, L500.4050, L501.5200 ####[facility] [address] [place], [address] BUN/CRE 30.1 RATIO High 10-20 [facility] Comment on above: Performed By: #### L 100.0100, L501.2300, L500.4050, L501.5200 ####[facility] [address] [place], [address] CA,Total 10.1 mg/dL Normal 8.5-10.1 [facility] Comment on above: Performed By: #### L 100.0100, L501.2300, L500.4050, L501.5200 ####[facility] [address] [place], [address] Chloride [Moles/Vol] 99 mmol/L Normal 98-107 [facility] Comment on above: Performed By: #### L 100.0100, L501.2300, L500.4050, L501.5200 ####[facility] [address] [place], [address] CO2 [Moles/Vol] 38.0 mmol/L High 21.0-32.0 [facility] Comment on above: Performed By: #### L 100.0100, L501.2300, L500.4050, L501.5200 ####[facility] [address] [place], [address] Creatinine [Mass/Vol] 0.86 mg/dL Normal 0.55-1.02 [facility] Comment on above: Result Comment: The validity of the calculated GFR GFRAA in patients over70 years has not been determined. Clinical correlation isessential. Performed By: #### L 100.0100, L501.2300, L500.4050, L501.5200 ####[facility] [address] [place], [address] ECRCL 103.78 ml/min Normal [facility] Comment on above: Performed By: #### L 100.0100, L501.2300, L500.4050, L501.5200 ####[facility] [address] [place], [address] EST GFR - AA 86 mL/min Normal >60 [facility] Comment on above: Result Comment: Afri can Guamanian GFR Calc Performed By: #### L 100.0100, L501.2300, L500.4050, L501.5200 ####[facility] [address] [place], [address] GAP 2 Low 5-15 [facility] Comment on above: Performed By: #### L 100.0100, L501.2300, L500.4050, L501.5200 ####[facility] [address] [place], [address] GFR/1.73 sq M.predicted among non-blacks MDRD (S/P/Bld) [Vol rate/Area] 71 mL/min/{1.73_m2} Normal >60 [facility] Comment on above: Result Comment: Non- GFR Calc Performed By: #### L 100.0100, L501.2300, L500.4050, L501.5200 ####[facility] [address] [place], [address] Globulin (S) [Mass/Vol] 3.3 g/dL Normal 2.2-4.2 [facility] Comment on above: Performed By: #### L 100.0100, L501.2300, L500.4050, L501.5200 ####[facility] [address] [place], [address] Glucose [Mass/Vol] 169 mg/dL High 74-106 [facility] Comment on above: Result Comment: Fast ing Glucose result greater than or equal to 126 mg/dLsuggests DIABETES MELLITUS per A.D.A. criteria. Performed By: #### L 100.0100, L501.2300, L500.4050, L501.5200 ####[facility] [address] [place], [address] Potassium [Moles/Vol] 4.8 mmol/L Normal 3.5-5.1 [facility] Comment on above: Performed By: #### L 100.0100, L501.2300, L500.4050, L501.5200 ####[facility] [address] [place], [address] Sodium [Moles/Vol] 138 mmol/L Normal 136-145 [facility] Comment on above: Performed By: #### L 100.0100, L501.2300, L500.4050, L501.5200 ####[facility] [address] [place], [address] T PROT 5.8 g/dL Low 6.4-8.2 [facility] Comment on above: Performed By: #### L 100.0100, L501.2300, L500.4050, L501.5200 ####[facility] [address] [place], [address] Urea nitrogen [Mass/Vol] 26 mg/dL High 7-18 [facility] Comment on above: Performed By: #### L 100.0100, L501.2300, L500.4050, L501.5200 ####[facility] [address] [place], [address] M R Staph Aureus DNA by PCRo n 01-20-2024 MRSA DNA ASSAY Positive Abnormal Negative [facility] Comment on above: Performed By: #### L 8200.1000 ####[facility] [address] [place], [address] Magnesiumon 01-20-2024 Magnesium [Mass/Vol] 2.0 mg/dL Normal 1.6-2.6 [facility] Comment on above: Performed By: #### L 100.0100, L501.2300, L500.4050, L501.5200 ####[facility] [address] [place], [address] Phosphoruson 01-20-2024 Phosphate [Mass/Vol] 3.2 mg/dL Normal 2.5-4.9 [facility] Comment on above: Performed By: #### L 100.0100, L501.2300, L500.4050, L501.5200 ####[facility] [address] [place], [address] Vancomycin, Random Levelon 1 VANCO, RANDOM 22.3 ug/mL High 0.0-15.0 [facility] Comment on above: Order Comment: NURSE HIRAM SAID SHE IS NOT ON VANCO. Result Comment: VANC OMYCIN STANDARD DRUG THERAPY: CRITICAL VALUE IS > 15.0 mg/LVANCOMYCIN HIGH INTENSITY THERAPY: CRITICAL VALUE IS > 20.0 mg/LPLEASE CONTACT PHARMACY SERVICES (#3274) FOR INTERPRETATIONOF RESULTS. THIS RESULT DOES NOT REPRESENT A PEAK OR TROUGHLEVEL FOR THIS DRUG. Performed By: #### L 501.8850 ####[facility] [address] [place], [address] VANCO, RANDOM 23.9 ug/mL High 0.0-15.0 [facility] Comment on above: Result Comment: VANC OMYCIN STANDARD DRUG THERAPY: CRITICAL VALUE IS > 15.0 mg/LVANCOMYCIN HIGH INTENSITY THERAPY: CRITICAL VALUE IS > 20.0 mg/LPLEASE CONTACT PHARMACY SERVICES (#8353) FOR INTERPRETATIONOF RESULTS. THIS RESULT DOES NOT REPRESENT A PEAK OR TROUGHLEVEL FOR THIS DRUG. Performed By: #### L 501.8850 ####[facility] [address] [place], [address] Vancomycin, Trough Levelon VANCO, TROUGH 35.8 ug/mL High 5.0-15.0 [facility] Comment on above: Order Comment: Comme nts: Trough to be drawn 30 mins prior to scheduled [id number] Result Comment: VANC OMYCIN STANDARED DRUG THERAPY TROUGH LEVEL: 5.0 - 15.0 mg/LVANCOMYCIN HIGH INTENSITY THERAPY TROUGH LEVEL: 15.0 - 20.0 mg/LHigh Intensity therapy recommended for serious lifethreatening infections include:- Vmowiegusz-Mvghbggkzcwp-Mvivksaqy (Ventilator/Healtcare Associated)-SepsisPLEASE CONTACT PHARMACY SERVICES (#8396) FOR INTERPRETATIONOF RESULTS. Performed By: #### L 501.8820 ####[facility] [address] [place], [place], [id number] Basic Metabolic Profile (BMP )on 01-19-2024 BUN Normal - [facility] Comment on above: Result Comment: Canc elled via OM: Ordered/Entered in error Performed By: #### L 500.2500 ####[facility] [address] [place], [address] BUN/CRE Normal - [facility] Comment on above: Result Comment: Canc elled via OM: Ordered/Entered in error Performed By: #### L 500.2500 ####[facility] [address] [place], [address] CA,Total Normal 8.5-10.1 [facility] Comment on above: Result Comment: Canc elled via OM: Ordered/Entered in error Performed By: #### L 500.2500 ####[facility] [address] [place], [address] CL Normal 98-107 [facility] Comment on above: Result Comment: Canc elled via OM: Ordered/Entered in error Performed By: #### L 500.2500 ####[facility] [address] [place], [address] CO2 Normal 21.0-32.0 [facility] Comment on above: Result Comment: Canc elled via OM: Ordered/Entered in error Performed By: #### L 500.2500 ####[facility] [address] [place], [address] CREAT,SERUM Normal 0.55-1.02 [facility] Comment on above: Result Comment: Canc elled via OM: Ordered/Entered in error Performed By: #### L 500.2500 ####[facility] [address] [place], [address] EST GFR Normal >60 [facility] Comment on above: Result Comment: Canc elled via OM: Ordered/Entered in error Performed By: #### L 500.2500 ####[facility] [address] [place], [address] EST GFR - AA Normal >60 [facility] Comment on above: Result Comment: Canc elled via OM: Ordered/Entered in error Performed By: #### L 500.2500 ####[facility] [address] [place], [address] GAP Normal 5-15 [facility] Comment on above: Result Comment: Canc elled via OM: Ordered/Entered in error Performed By: #### L 500.2500 ####[facility] [address] [place], [address] GLU Normal 74-106 [facility] Comment on above: Result Comment: Canc elled via OM: Ordered/Entered in error Performed By: #### L 500.2500 ####[facility] [address] [place], [address] Potassium Normal 3.5-5.1 [facility] Comment on above: Result Comment: Canc elled via OM: Ordered/Entered in error Performed By: #### L 500.2500 ####[facility] [address] [place], [address] Basic Metabolic Profile (BMP) Normal 136-145 [facility] Comment on above: Result Comment: Canc elled via OM: Ordered/Entered in error Performed By: #### L 500.2500 ####[facility] [address] [place], [address] BUN/CRE 21.8 RATIO High 10-20 [facility] Comment on above: Result Comment: CANC EL PER BETO RN; LABELLED INCORRECTLY WITH WRONGPATIENT Performed By: #### L 500.2500 ####[facility] [address] [place], [address] CA,Total 7.8 mg/dL Low 8.5-10.1 [facility] Comment on above: Result Comment: CANC EL PER BETO RN; LABELLED INCORRECTLY WITH WRONGPATIENT Performed By: #### L 500.2500 ####[facility] [address] [place], [address] Chloride [Moles/Vol] 112 mmol/L High 98-107 [facility] Comment on above: Result Comment: CANC EL PER DENIAMULE RN; LABELLED INCORRECTLY WITH WRONGPATIENT Performed By: #### L 500.2500 ####[facility] [address] [place], [address] CO2 [Moles/Vol] 18.0 mmol/L Low 21.0-32.0 [facility] Comment on above: Result Comment: CANC EL PER BETO RN; LABELLED INCORRECTLY WITH WRONGPATIENT Performed By: #### L 500.2500 ####[facility] [address] [place], [address] Creatinine [Mass/Vol] 0.82 mg/dL Normal 0.55-1.02 [facility] Comment on above: Result Comment: CANC EL PER DENIAMULE RN; LABELLED INCORRECTLY WITH WRONGPATIENTThe validity of the calculated GFR GFRAA in patients over70 years has not been determined. Clinical correlation isessential. Performed By: #### L 500.2500 ####[facility] [address] [place], [address] ECRCL 108.66 ml/min Normal [facility] Comment on above: Result Comment: CANC EL PER BETO RN; LABELLED INCORRECTLY WITH WRONGPATIENT Performed By: #### L 500.2500 ####[facility] [address] [place], [address] EST GFR - AA 90 mL/min Normal >60 [facility] Comment on above: Result Comment: CANC EL PER BETO RN; LABELLED INCORRECTLY WITH WRONGPATIENTAfrican Guamanian GFR Calc Performed By: #### L 500.2500 ####[facility] [address] [facility] [address] GAP 9 Normal 5-15 [facility] Comment on above: Result Comment: CANC EL PER DENIAMULE RN; LABELLED INCORRECTLY WITH WRONGPATIENT Performed By: #### L 500.2500 ####[facility] [address] [place], [address] GFR/1.73 sq M.predicted among non-blacks MDRD (S/P/Bld) [Vol rate/Area] 75 mL/min/{1.73_m2} Normal >60 [facility] Comment on above: Result Comment: CANC EL PER BETO RN; LABELLED INCORRECTLY WITH WRONGPATIENTNon- GFR Calc Performed By: #### L 500.2500 ####[facility] [address] [place], [address] Glucose [Mass/Vol] 166 mg/dL High 74-106 [facility] Comment on above: Result Comment: CANC EL PER BETO RN; LABELLED INCORRECTLY WITH WRONGPATIENTFasting Glucose result greater than or equal to 126 mg/dLsuggests DIABETES MELLITUS per A.D.A. criteria. Performed By: #### L 500.2500 ####[facility] [address] [place], [address] Potassium [Moles/Vol] 3.9 mmol/L Normal 3.5-5.1 [facility] Comment on above: Result Comment: CANC EL PER BETO RN; LABELLED INCORRECTLY WITH WRONGPATIENT Performed By: #### L 500.2500 ####[facility] [address] [place], [address] Sodium [Moles/Vol] 138 mmol/L Normal 136-145 [facility] Comment on above: Result Comment: CANC EL PER BETO RN; LABELLED INCORRECTLY WITH WRONGPATIENT Performed By: #### L 500.2500 ####[facility] [address] [place], [address] Urea nitrogen [Mass/Vol] 18 mg/dL Normal 7-18 [facility] Comment on above: Result Comment: CANC EL PER BETO RN; LABELLED INCORRECTLY WITH WRONGPATIENT Performed By: #### L 500.2500 ####[facility] [address] [place], [address] BUN/CRE 32.8 RATIO High 10-20 [facility] Comment on above: Performed By: #### L 100.0100, L501.5200, L500.2500 ####[facility] [address] [place], [address] CA,Total 10.1 mg/dL Normal 8.5-10.1 [facility] Comment on above: Performed By: #### L 100.0100, L501.5200, L500.2500 ####[facility] [address] [place], [address] Chloride [Moles/Vol] 98 mmol/L Normal 98-107 [facility] Comment on above: Performed By: #### L 100.0100, L501.5200, L500.2500 ####[facility] [address] [place], [address] CO2 [Moles/Vol] 38.0 mmol/L High 21.0-32.0 [facility] Comment on above: Performed By: #### L 100.0100, L501.5200, L500.2500 ####[facility] [address] [place], [address] Creatinine [Mass/Vol] 0.85 mg/dL Normal 0.55-1.02 [facility] Comment on above: Result Comment: The validity of the calculated GFR GFRAA in patients over70 years has not been determined. Clinical correlation isessential. Performed By: #### L 100.0100, L501.5200, L500.2500 ####[facility] [address] [place], [address] ECRCL 103.33 ml/min Normal [facility] Comment on above: Performed By: #### L 100.0100, L501.5200, L500.2500 ####[facility] [address] [place], [address] EST GFR - AA 87 mL/min Normal >60 [facility] Comment on above: Result Comment: Afri can Guamanian GFR Calc Performed By: #### L 100.0100, L501.5200, L500.2500 ####[facility] [address] [place], [address] GAP 3 Low 5-15 [facility] Comment on above: Performed By: #### L 100.0100, L501.5200, L500.2500 ####[facility] [address] [place], [address] GFR/1.73 sq M.predicted among non-blacks MDRD (S/P/Bld) [Vol rate/Area] 72 mL/min/{1.73_m2} Normal >60 [facility] Comment on above: Result Comment: Non- GFR Calc Performed By: #### L 100.0100, L501.5200, L500.2500 ####[facility] [address] [place], [address] Glucose [Mass/Vol] 122 mg/dL High 74-106 [facility] Comment on above: Result Comment: Fast ing Glucose result from 100 to 125 mg/dLsuggests IMPAIRED HOMEOSTASIS per A.D.A. criteria. Performed By: #### L 100.0100, L501.5200, L500.2500 ####[facility] [address] [place], [address] Potassium [Moles/Vol] 4.4 mmol/L Normal 3.5-5.1 [facility] Comment on above: Performed By: #### L 100.0100, L501.5200, L500.2500 ####[facility] [address] [place], [address] Sodium [Moles/Vol] 139 mmol/L Normal 136-145 [facility] Comment on above: Performed By: #### L 100.0100, L501.5200, L500.2500 ####[facility] [address] [place], [address] Urea nitrogen [Mass/Vol] 28 mg/dL High 7-18 [facility] Comment on above: Performed By: #### L 100.0100, L501.5200, L500.2500 ####[facility] [address] [place], [address] Bedside Glucoseon 01-19-2024 FINGERSTICK GLU 91 mg/dL Normal 74-106 [facility] Comment on above: Result Comment: GODFREY GEMENT OF PATIENT CARE PER NURSING PROTOCOL Performed By: #### L 501.080 ####[facility] [address] [place], [address] FINGERSTICK GLU 140 mg/dL High 74-106 [facility] Comment on above: Result Comment: GODFREY GEMENT OF PATIENT CARE PER NURSING PROTOCOL Performed By: #### L 501.080 ####[facility] [address] [place], [address] FINGERSTICK GLU 119 mg/dL High 74-106 [facility] Comment on above: Result Comment: GODFREY GEMENT OF PATIENT CARE PER NURSING PROTOCOL Performed By: #### L 501.080 ####[facility] [address] [place], [address] CBC W/Diff, Automatedon 01-07 Absolute Lymph 1.62 X10 3/uL Normal 0.83-4.51 [facility] Comment on above: Performed By: #### L 100.0100, L501.5200, L500.2500 ####[facility] [address] [place], [address] Absolute Neut 7.4 X10 3/uL Normal 2.0-7.7 [facility] Comment on above: Performed By: #### L 100.0100, L501.5200, L500.2500 ####[facility] [address] [place], [address] Basophils/100 WBC (Bld) 0.3 % Normal 0-1 [facility] Comment on above: Performed By: #### L 100.0100, L501.5200, L500.2500 ####[facility] [address] [place], [address] Eosinophils/100 WBC (Bld) 0.0 % Normal 0-5 [facility] Comment on above: Performed By: #### L 100.0100, L501.5200, L500.2500 ####[facility] [address] [place], [address] Erythrocyte distribution width (RBC) [Ratio] 15.2 % High 11.6-14.6 [facility] Comment on above: Performed By: #### L 100.0100, L501.5200, L500.2500 ####[facility] [address] [place], [address] Hematocrit (Bld) [Volume fraction] 32.3 % Low 37-47 [facility] Comment on above: Performed By: #### L 100.0100, L501.5200, L500.2500 ####[facility] [address] [place], [address] Hemoglobin (Bld) [Mass/Vol] 9.2 g/dL Low 12.0-15.0 [facility] Comment on above: Performed By: #### L 100.0100, L501.5200, L500.2500 ####[facility] [address] [place], [address] IG% 1.700 High 0.0-0.9 [facility] Comment on above: Result Comment: IG% - Immature Granulocytes (promyelocytes, myelocytes andmetamyelocytes) > 1% indicates that a LEFT SHIFT is Present. Performed By: #### L 100.0100, L501.5200, L500.2500 ####[facility] [address] [place], [address] Lymphocytes/100 WBC (Bld) 17.0 % Low 19-41 [facility] Comment on above: Performed By: #### L 100.0100, L501.5200, L500.2500 ####[facility] [address] [place], [address] MCH (RBC) [Entitic mass] 25.3 pg Low 27.0-32.0 [facility] Comment on above: Performed By: #### L 100.0100, L501.5200, L500.2500 ####[facility] [address] [place], [address] MCHC (RBC) [Mass/Vol] 28.5 g/dL Low 32-36 [facility] Comment on above: Performed By: #### L 100.0100, L501.5200, L500.2500 ####[facility] [address] [place], [address] MCV (RBC) [Entitic vol] 89.0 fL Normal 81-99 [facility] Comment on above: Performed By: #### L 100.0100, L501.5200, L500.2500 ####[facility] [address] [place], [address] Monocytes/100 WBC (Bld) 3.6 % Normal 0-10 [facility] Comment on above: Performed By: #### L 100.0100, L501.5200, L500.2500 ####[facility] [address] [place], [address] Neutrophils/100 WBC (Bld) 77.4 % High 47-70 [facility] Comment on above: Performed By: #### L 100.0100, L501.5200, L500.2500 ####[facility] [address] [place], [address] Nucleated RBC (Bld) [#/Vol] 0 10*3/uL Normal 0-5 [facility] Comment on above: Performed By: #### L 100.0100, L501.5200, L500.2500 ####[facility] [address] [place], [address] Platelet mean volume (Bld) [Entitic vol] 12.1 fL High 6.2-12.0 [facility] Comment on above: Performed By: #### L 100.0100, L501.5200, L500.2500 ####[facility] [address] [place], [address] Platelets (Bld) [#/Vol] 227 10*3/uL Normal 150-450 [facility] Comment on above: Performed By: #### L 100.0100, L501.5200, L500.2500 ####[facility] [address] [place], [address] RBC (Bld) [#/Vol] 3.63 10*6/uL Low 4.2-5.4 [facility] Comment on above: Performed By: #### L 100.0100, L501.5200, L500.2500 ####[facility] [address] [place], [address] RDW SD 48.0 fl High 35.1-43.9 [facility] Comment on above: Performed By: #### L 100.0100, L501.5200, L500.2500 ####[facility] [address] [place], [address] WBC (Bld) [#/Vol] 9.5 10*3/uL Normal 4.4-11.0 [facility] Comment on above: Performed By: #### L 100.0100, L501.5200, L500.2500 ####[facility] [address] [place], [address] Magnesiumon 01-19-2024 Magnesium [Mass/Vol] 1.3 mg/dL Low 1.6-2.6 [facility] Comment on above: Performed By: #### L 100.0100, L501.5200, L500.2500 ####[facility] [address] [place], [address] Urine Cultureon 01-19-2024 URC Culture exhibits no growth. Normal [facility] Comment on above: Performed By: #### L 400.0001, M100.2200, M100.678 ####[facility] [address] [place], [address] BNP,B-Type NATRIURETIC PEPTI Sherry 01-18-2024 Natriuretic peptide B (Bld) [Mass/Vol] 30.5 pg/mL Normal 0-100 [facility] Comment on above: Performed By: #### L 503.6620 ####[facility] [address] [place], [address] Bedside Glucoseon 01-18-2024 FINGERSTICK GLU 90 mg/dL Normal 74-106 [facility] Comment on above: Result Comment: GODFREY GEMENT OF PATIENT CARE PER NURSING PROTOCOL Performed By: #### L 501.080 ####[facility] [address] [place], [address] FINGERSTICK GLU 110 mg/dL High 74-106 [facility] Comment on above: Result Comment: GODFREY GEMENT OF PATIENT CARE PER NURSING PROTOCOL Performed By: #### L 501.080 ####[facility] [address] [place], [address] Blood Gases by CPSon 024 ROSA TEST N/A Normal [facility] Comment on above: Performed By: #### L 9000.0800 ####[facility] [address] [place], [address] Base excess Calc (Bld) [Moles/Vol] 13 mmol/L High -2 to +2 [facility] Comment on above: Performed By: #### L 9000.0800 ####[facility] [address] [place], [address] Blood Gas Type ART Normal [facility] Comment on above: Performed By: #### L 9000.0800 ####[facility] [address] [place], [address] CO2 [Moles/Vol] 41 mmol/L Normal [facility] Comment on above: Performed By: #### L 9000.0800 ####[facility] [address] [place], [address] FI02 40.0 Normal [facility] Comment on above: Performed By: #### L 0.0800 ####[facility] [address] [place], [address] HCO3 (Bld) [Moles/Vol] 38.7 mmol/L High 22-26 [facility] Comment on above: Performed By: #### L 0.0800 ####[facility] [address] [place], [address] Mode Not entered Normal [facility] Comment on above: Performed By: #### L 0.0800 ####[facility] [address] [place], [address] O2 Delivery Dev BiPAP Normal [facility] Comment on above: Performed By: #### L 0.0800 ####[facility] [address] [place], [address] pCO2 72.6 mmHg Invalid Interpretation Code 35-45 [facility] Comment on above: Performed By: #### L 0.0800 ####[facility] [address] [place], [address] PEEP 12 Normal [facility] Comment on above: Performed By: #### L 0.0800 ####[facility] [address] [place], [address] pH (Bld) 7.34 [pH] Low 7.35-7.45 [facility] Comment on above: Performed By: #### L 0.0800 ####[facility] [address] [place], [address] PO2 106 mmHG High 75-100 [facility] Comment on above: Performed By: #### L 9000.0800 ####[facility] [address] [place], [address] Read Back By Yes Normal [facility] Comment on above: Performed By: #### L 9000.0800 ####[facility] [address] [place], [address] Results To ICU physician Normal [facility] Comment on above: Performed By: #### L 9000.0800 ####[facility] [address] [place], [address] RR 14 Normal [facility] Comment on above: Performed By: #### L 9000.0800 ####[facility] [address] [place], [address] SITE Art Line Normal [facility] Comment on above: Performed By: #### L 9000.0800 ####[facility] [address] [place], [address] SO2 97 Normal 95-99 [facility] Comment on above: Performed By: #### L 9000.0800 ####[facility] [address] [place], [address] Time Given 21:37:31 [facility] Comment on above: Performed By: #### L 9000.0800 ####[facility] [address] [place], [address] Vt 500.0 mL [facility] Comment on above: Performed By: #### L 9000.0800 ####[facility] [address] [place], [address] Base excess Calc (Bld) [Moles/Vol] 19 mmol/L High -2 to +2 [facility] Comment on above: Result Comment: crit ical rerun Performed By: #### L 9000.0800 ####[facility] [address] [place], [address] Blood Gas Type ART Normal [facility] Comment on above: Result Comment: crit ical rerun Performed By: #### L 9000.0800 ####[facility] [address] [place], [address] HCO3 (Bld) [Moles/Vol] 47.7 mmol/L High 22-26 [facility] Comment on above: Result Comment: crit ical rerun Performed By: #### L 9000.0800 ####[facility] [address] [place], [address] Mode Not entered Normal [facility] Comment on above: Result Comment: crit ical rerun Performed By: #### L 9000.0800 ####[facility] [address] [place], [address] O2 Delivery Dev Not entered Normal [facility] Comment on above: Result Comment: crit ical rerun Performed By: #### L 9000.0800 ####[facility] [address] [place], [address] pCO2 126.3 mmHg Invalid Interpretation Code 35-45 [facility] Comment on above: Result Comment: crit ical rerun Performed By: #### L 9000.0800 ####[facility] [address] [place], [address] pH (Bld) 7.19 [pH] Invalid Interpretation Code 7.35-7.45 [facility] Comment on above: Result Comment: crit ical rerun Performed By: #### L 9000.0800 ####[facility] [address] [place], [address] PO2 70 mmHG Low 75-100 [facility] Comment on above: Result Comment: crit ical rerun Performed By: #### L 900.0800 ####[facility] [address] [place], [address] Read Back By Yes Normal [facility] Comment on above: Result Comment: crit ical rerun Performed By: #### L 9000.0800 ####[facility] [address] [place], [address] SITE Not entered Normal [facility] Comment on above: Result Comment: crit ical rerun Performed By: #### L 9000.0800 ####[facility] [address] [place], [address] SO2 86 Low 95-99 [facility] Comment on above: Result Comment: crit ical rerun Performed By: #### L 9000.0800 ####[facility] [address] [place], [address] TOTAL CO2 > 50 Normal [facility] Comment on above: Result Comment: crit ical rerun Performed By: #### L 9000.0800 ####[facility] [address] [place], [address] ROSA TEST Positive Normal [facility] Comment on above: Performed By: #### L 9000.0800 ####[facility] [address] [place], [address] Base excess Calc (Bld) [Moles/Vol] 14 mmol/L High -2 to +2 [facility] Comment on above: Performed By: #### L 9000.0800 ####[facility] [address] [place], [address] Blood Gas Type ART Normal [facility] Comment on above: Performed By: #### L 9000.0800 ####[facility] [address] [place], [address] CO2 [Moles/Vol] 46 mmol/L Normal [facility] Comment on above: Performed By: #### L 8999.08 ####[facility] [address] [place], [address] FI02 4.0 Normal [facility] Comment on above: Performed By: #### L 8999.0800 ####[facility] [address] [place], [address] HCO3 (Bld) [Moles/Vol] 42.1 mmol/L High 22-26 [facility] Comment on above: Performed By: #### L 8999.08 ####[facility] [address] [place], [address] Mode Not entered Normal [facility] Comment on above: Performed By: #### L 8999.08 ####[facility] [address] [place], [address] O2 Delivery Dev Cannula Normal [facility] Comment on above: Performed By: #### L 8999.08 ####[facility] [address] [place], [address] pCO2 112.2 mmHg Invalid Interpretation Code 35-45 [facility] Comment on above: Performed By: #### L 8999.0800 ####[facility] [address] [place], [address] pH (Bld) 7.18 [pH] Invalid Interpretation Code 7.35-7.45 [facility] Comment on above: Performed By: #### L 8999.0800 ####[facility] [address] [place], [address] PO2 74 mmHG Low 75-100 [facility] Comment on above: Performed By: #### L 8999.08 ####[facility] [address] [place], [address] Read Back By Yes Normal [facility] Comment on above: Performed By: #### L 9000.0800 ####[facility] [address] [place], [address] Results To butler Normal [facility] Comment on above: Performed By: #### L 0.0800 ####[facility] [address] [place], [address] SITE L Radial Normal [facility] Comment on above: Performed By: #### L 9000.0800 ####[facility] [address] [place], [address] SO2 88 Low 95-99 [facility] Comment on above: Performed By: #### L 0.0800 ####[facility] [address] [place], [address] Time Given 13:26:02 Normal [facility] Comment on above: Performed By: #### L 9000.0800 ####[facility] [address] [place], [address] Brain/Head without Contrasto n 01-18-2024 Brain/Head without Contrast Normal [facility] CBC W/Diff, Automatedon - Absolute Lymph 1.87 X10 3/uL Normal 0.83-4.51 [facility] Comment on above: Performed By: #### L 503.6005, L501.4020, L500.4050, L100.0100 ####[facility] [address] [place], [address] Absolute Neut 5.6 X10 3/uL Normal 2.0-7.7 [facility] Comment on above: Performed By: #### L 503.6005, L501.4020, L500.4050, L100.0100 ####[facility] [address] [place], [address] Basophils/100 WBC (Bld) 0.4 % Normal 0-1 [facility] Comment on above: Performed By: #### L 503.6005, L501.4020, L500.4050, L100.0100 ####[facility] [address] [place], [address] Eosinophils/100 WBC (Bld) 1.0 % Normal 0-5 [facility] Comment on above: Performed By: #### L 503.6005, L501.4020, L500.4050, L100.0100 ####[facility] [address] [place], [address] Erythrocyte distribution width (RBC) [Ratio] 15.4 % High 11.6-14.6 [facility] Comment on above: Performed By: #### L 503.6005, L501.4020, L500.4050, L100.0100 ####[facility] [address] [place], [address] Hematocrit (Bld) [Volume fraction] 35.1 % Low 37-47 [facility] Comment on above: Performed By: #### L 503.6005, L501.4020, L500.4050, L100.0100 ####[facility] [address] [place], [address] Hemoglobin (Bld) [Mass/Vol] 9.5 g/dL Low 12.0-15.0 [facility] Comment on above: Performed By: #### L 503.6005, L501.4020, L500.4050, L100.0100 ####[facility] [address] [place], [address] IG% 1.100 High 0.0-0.9 [facility] Comment on above: Result Comment: IG% - Immature Granulocytes (promyelocytes, myelocytes andmetamyelocytes) > 1% indicates that a LEFT SHIFT is Present. Performed By: #### L 503.6005, L501.4020, L500.4050, L100.0100 ####[facility] [address] [place], [address] Lymphocytes/100 WBC (Bld) 22.2 % Normal 19-41 [facility] Comment on above: Performed By: #### L 503.6005, L501.4020, L500.4050, L100.0100 ####[facility] [address] [place], [address] MCH (RBC) [Entitic mass] 25.2 pg Low 27.0-32.0 [facility] Comment on above: Performed By: #### L 503.6005, L501.4020, L500.4050, L100.0100 ####[facility] [address] [place], [address] MCHC (RBC) [Mass/Vol] 27.1 g/dL Low 32-36 [facility] Comment on above: Performed By: #### L 503.6005, L501.4020, L500.4050, L100.0100 ####[facility] [address] [place], [address] MCV (RBC) [Entitic vol] 93.1 fL Normal 81-99 [facility] Comment on above: Performed By: #### L 503.6005, L501.4020, L500.4050, L100.0100 ####[facility] [address] [place], [address] Monocytes/100 WBC (Bld) 8.8 % Normal 0-10 [facility] Comment on above: Performed By: #### L 503.6005, L501.4020, L500.4050, L100.0100 ####[facility] [address] [place], [address] Neutrophils/100 WBC (Bld) 66.5 % Normal 47-70 [facility] Comment on above: Performed By: #### L 503.6005, L501.4020, L500.4050, L100.0100 ####[facility] [address] [place], [address] Nucleated RBC (Bld) [#/Vol] 0 10*3/uL Normal 0-5 [facility] Comment on above: Performed By: #### L 503.6005, L501.4020, L500.4050, L100.0100 ####[facility] [address] [place], [address] Platelet mean volume (Bld) [Entitic vol] 12.0 fL Normal 6.2-12.0 [facility] Comment on above: Performed By: #### L 503.6005, L501.4020, L500.4050, L100.0100 ####[facility] [address] [place], [address] Platelets (Bld) [#/Vol] 198 10*3/uL Normal 150-450 [facility] Comment on above: Performed By: #### L 503.6005, L501.4020, L500.4050, L100.0100 ####[facility] [address] [place], [address] RBC (Bld) [#/Vol] 3.77 10*6/uL Low 4.2-5.4 [facility] Comment on above: Performed By: #### L 503.6005, L501.4020, L500.4050, L100.0100 ####[facility] [address] [place], [address] RDW SD 52.1 fl High 35.1-43.9 [facility] Comment on above: Performed By: #### L 503.6005, L501.4020, L500.4050, L100.0100 ####[facility] [address] [place], [address] WBC (Bld) [#/Vol] 8.4 10*3/uL Normal 4.4-11.0 [facility] Comment on above: Performed By: #### L 503.6005, L501.4020, L500.4050, L100.0100 ####[facility] [address] [place], [address] Chest 1 View (Portable)on Chest 1 View (Portable) Normal [facility] Comprehensive Metabolic Prof ilon 01-18-2024 Albumin [Mass/Vol] 2.7 g/dL Low 3.2-5.0 [facility] Comment on above: Order Comment: 'TROP ' Serial specimen #1, #2 or #3: 1 Performed By: #### L 503.6005, L501.4020, L500.4050, L100.0100 ####[facility] [address] [place], [address] Albumin/Globulin [Mass ratio] 0.7 {ratio} Low 0.9-2.4 [facility] Comment on above: Order Comment: 'TROP ' Serial specimen #1, #2 or #3: 1 Performed By: #### L 503.6005, L501.4020, L500.4050, L100.0100 ####[facility] [address] [place], [address] ALK P 76 U/L Normal 45-117 [facility] Comment on above: Order Comment: 'TROP ' Serial specimen #1, #2 or #3: 1 Performed By: #### L 503.6005, L501.4020, L500.4050, L100.0100 ####[facility] [address] [place], [address] ALT [Catalytic activity/Vol] 9 U/L Low 13-56 [facility] Comment on above: Order Comment: 'TROP ' Serial specimen #1, #2 or #3: 1 Performed By: #### L 503.6005, L501.4020, L500.4050, L100.0100 ####[facility] [address] [place], [address] AST [Catalytic activity/Vol] 14 U/L Low 15-37 [facility] Comment on above: Order Comment: 'TROP ' Serial specimen #1, #2 or #3: 1 Result Comment: Mode rate Hemolysis, Result may be falsely increased. Performed By: #### L 503.6005, L501.4020, L500.4050, L100.0100 ####[facility] [address] [place], [address] Bilirubin [Mass/Vol] 0.30 mg/dL Normal 0.20-1.00 [facility] Comment on above: Order Comment: 'TROP ' Serial specimen #1, #2 or #3: 1 Result Comment: For patients on eltrombopag therapy, use of Dimension Freeman TBIL is not recommended. Performed By: #### L 503.6005, L501.4020, L500.4050, L100.0100 ####[facility] [address] [place], [address] BUN/CRE 21.9 RATIO High 10-20 [facility] Comment on above: Order Comment: 'TROP ' Serial specimen #1, #2 or #3: 1 Performed By: #### L 503.6005, L501.4020, L500.4050, L100.0100 ####[facility] [address] [place], [address] CA,Total 10.4 mg/dL High 8.5-10.1 [facility] Comment on above: Order Comment: 'TROP ' Serial specimen #1, #2 or #3: 1 Performed By: #### L 503.6005, L501.4020, L500.4050, L100.0100 ####[facility] [address] [place], [address] Chloride [Moles/Vol] 94 mmol/L Low 98-107 [facility] Comment on above: Order Comment: 'TROP ' Serial specimen #1, #2 or #3: 1 Performed By: #### L 503.6005, L501.4020, L500.4050, L100.0100 ####[facility] [address] [place], [address] CO2 [Moles/Vol] 43.0 mmol/L High 21.0-32.0 [facility] Comment on above: Order Comment: 'TROP ' Serial specimen #1, #2 or #3: 1 Performed By: #### L 503.6005, L501.4020, L500.4050, L100.0100 ####[facility] [address] [place], [address] Creatinine [Mass/Vol] 1.28 mg/dL High 0.55-1.02 [facility] Comment on above: Order Comment: 'TROP ' Serial specimen #1, #2 or #3: 1 Result Comment: The validity of the calculated GFR GFRAA in patients over70 years has not been determined. Clinical correlation isessential. Performed By: #### L 503.6005, L501.4020, L500.4050, L100.0100 ####[facility] [address] [place], [address] ECRCL 69.35 ml/min Normal [facility] Comment on above: Order Comment: 'TROP ' Serial specimen #1, #2 or #3: 1 Performed By: #### L 503.6005, L501.4020, L500.4050, L100.0100 ####[facility] [address] [place], [address] EST GFR - AA 54 mL/min Low >60 [facility] Comment on above: Order Comment: 'TROP ' Serial specimen #1, #2 or #3: 1 Result Comment: Afri can [place] GFR Calc Performed By: #### L 503.6005, L501.4020, L500.4050, L100.0100 ####[facility] [address] [place], [address] GAP 3 Low 5-15 [facility] Comment on above: Order Comment: 'TROP ' Serial specimen #1, #2 or #3: 1 Performed By: #### L 503.6005, L501.4020, L500.4050, L100.0100 ####[facility] [address] [place], [address] GFR/1.73 sq M.predicted among non-blacks MDRD (S/P/Bld) [Vol rate/Area] 45 mL/min/{1.73_m2} Low >60 [facility] Comment on above: Order Comment: 'TROP ' Serial specimen #1, #2 or #3: 1 Result Comment: Non- GFR Calc Performed By: #### L 503.6005, L501.4020, L500.4050, L100.0100 ####[facility] [address] [place], [address] Globulin (S) [Mass/Vol] 3.8 g/dL Normal 2.2-4.2 [facility] Comment on above: Order Comment: 'TROP ' Serial specimen #1, #2 or #3: 1 Performed By: #### L 503.6005, L501.4020, L500.4050, L100.0100 ####[facility] [address] [place], [address] Glucose [Mass/Vol] 109 mg/dL High 74-106 [facility] Comment on above: Order Comment: 'TROP ' Serial specimen #1, #2 or #3: 1 Result Comment: Fast ing Glucose result from 100 to 125 mg/dLsuggests IMPAIRED HOMEOSTASIS per A.D.A. criteria. Performed By: #### L 503.6005, L501.4020, L500.4050, L100.0100 ####[facility] [address] [place], [address] Potassium [Moles/Vol] 4.5 mmol/L Normal 3.5-5.1 [facility] Comment on above: Order Comment: 'TROP ' Serial specimen #1, #2 or #3: 1 Result Comment: Mode rate Hemolysis, Result may be falsely increased. Performed By: #### L 503.6005, L501.4020, L500.4050, L100.0100 ####[facility] [address] [place], [address] Sodium [Moles/Vol] 140 mmol/L Normal 136-145 [facility] Comment on above: Order Comment: 'TROP ' Serial specimen #1, #2 or #3: 1 Performed By: #### L 503.6005, L501.4020, L500.4050, L100.0100 ####[facility] [address] [place], [address] T PROT 6.5 g/dL Normal 6.4-8.2 [facility] Comment on above: Order Comment: 'TROP ' Serial specimen #1, #2 or #3: 1 Performed By: #### L 503.6005, L501.4020, L500.4050, L100.0100 ####[facility] [address] [place], [address] Urea nitrogen [Mass/Vol] 28 mg/dL High 7-18 [facility] Comment on above: Order Comment: 'TROP ' Serial specimen #1, #2 or #3: 1 Performed By: #### L 503.6005, L501.4020, L500.4050, L100.0100 ####[facility] [address] 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 For more information see Policy Stat Procedure Freeman High Sensitivity Troponin (TNIH) and attachments. Performed By: #### L 503.6005, L501.4020, L500.4050, L100.0100 ####[facility] [address] [place], [address] Lactic Acidon 01-18-2024 Lactate [Moles/Vol] 0.3 mmol/L Low 0.4-1.9 [facility] Comment on above: Order Comment: Y Performed By: #### L 503.6005, L501.4020, L500.4050, L100.0100 ####[facility] [address] [place], [address] Legionella Antigen Urineon 1 LEGU Normal [facility] Comment on above: Performed By: #### M 300.4600, M300.4500 ####[facility] [address] [place], [address] M100.678on 01-18-2024 M100.678 Pending SARS-CoV-2 (COVID 19) Negative INFLUENZA A Negative INFLUENZA B Negative RSV PCR Negative Normal [facility] Comment on above: Performed By: #### L 400.0001, M100.2200, M100.678 ####[facility] [address] [place], [address] Procedure Reporton Procedure Report Normal [facility] Procedure Report Normal [facility] RESPIRATORY PANEL MOLECULARo n 01-18-2024 RP PANEL Normal [facility] Comment on above: Performed By: #### M 100.638 ####[facility] [address] [place], [address] Strep pneumoniae Antig(UR,CS F)on 01-18-2024 STPAG Normal [facility] Comment on above: Performed By: #### M 300.4600, M300.4500 ####[facility] [address] [place], [address] Urinalysis, Completeon 01-17 BACTERIA 0 SEEN Normal None Seen [facility] Comment on above: Order Comment: CLEAN CATCH Performed By: #### L 400.0001, M100.2200, M100.678 ####[facility] [address] [place], [address] EPI,SQUAMOUS 0 SEEN Normal 5-10 [facility] Comment on above: Order Comment: CLEAN CATCH Performed By: #### L 400.0001, M100.2200, M100.678 ####[facility] [address] [place], [address] Mucus Ql (Urine sed) 0 SEEN Normal [facility] Comment on above: Order Comment: CLEAN CATCH Performed By: #### L 400.0001, M100.2200, M100.678 ####[facility] [address] [place], [address] RBC 0 SEEN Normal 0-5 [facility] Comment on above: Order Comment: CLEAN CATCH Performed By: #### L 400.0001, M100.2200, M100.678 ####[facility] [address] [place], [address] WBC 0 SEEN Normal 0-5 [facility] Comment on above: Order Comment: CLEAN CATCH Performed By: #### L 400.0001, M100.2200, M100.678 ####[facility] [address] [place], [address] CBC-Complete Blood Cnt No Di ffon 01-16-2024 Erythrocyte distribution width (RBC) [Ratio] 15.3 % High 11.6-14.6 [facility] Comment on above: Order Comment: 512-1 Performed By: #### L 100.0500 ####[facility] [address] [place], [address] Hematocrit (Bld) [Volume fraction] 32.4 % Low 37-47 [facility] Comment on above: Order Comment: 512-1 Performed By: #### L 100.0500 ####[facility] [address] [place], [address] Hemoglobin (Bld) [Mass/Vol] 9.1 g/dL Low 12.0-15.0 [facility] Comment on above: Order Comment: 512-1 Performed By: #### L 100.0500 ####[facility] [address] [place], [address] MCH (RBC) [Entitic mass] 25.0 pg Low 27.0-32.0 [facility] Comment on above: Order Comment: 512-1 Performed By: #### L 100.0500 ####[facility] [address] [place], [address] MCHC (RBC) [Mass/Vol] 28.1 g/dL Low 32-36 [facility] Comment on above: Order Comment: 512-1 Performed By: #### L 100.0500 ####[facility] [address] [place], [address] MCV (RBC) [Entitic vol] 89.0 fL Normal 81-99 [facility] Comment on above: Order Comment: 512-1 Performed By: #### L 100.0500 ####[facility] [address] [place], [address] Platelet mean volume (Bld) [Entitic vol] 12.0 fL Normal 6.2-12.0 [facility] Comment on above: Order Comment: 512-1 Performed By: #### L 100.0500 ####[facility] [address] [place], [address] Platelets (Bld) [#/Vol] 153 10*3/uL Normal 150-450 [facility] Comment on above: Order Comment: 512-1 Performed By: #### L 100.0500 ####[facility] [address] [place], [address] RBC (Bld) [#/Vol] 3.64 10*6/uL Low 4.2-5.4 [facility] Comment on above: Order Comment: 512-1 Performed By: #### L 100.0500 ####[facility] [address] [place], [address] RDW SD 48.8 fl High 35.1-43.9 [facility] Comment on above: Order Comment: 512-1 Performed By: #### L 100.0500 ####[facility] [address] [place], [address] WBC (Bld) [#/Vol] 8.1 10*3/uL Normal 4.4-11.0 [facility] Comment on above: Order Comment: 512-1 Performed By: #### L 100.0500 ####[facility] [address] [place], [address] Basic Metabolic Profile (BMP )on 12-11-2023 BUN/CRE 57.1 RATIO High 10-20 [facility] Comment on above: Order Comment: 512.1 Performed By: #### L 501.6710, L100.0100, L500.2500 ####[facility] [address] [place], [address] CA,Total 9.6 mg/dL Normal 8.5-10.1 [facility] Comment on above: Order Comment: 512.1 Performed By: #### L 501.6710, L100.0100, L500.2500 ####[facility] [address] [place], [address] Chloride [Moles/Vol] 98 mmol/L Normal 98-107 [facility] Comment on above: Order Comment: 512.1 Performed By: #### L 501.6710, L100.0100, L500.2500 ####[facility] [address] [place], [address] CO2 [Moles/Vol] 37.0 mmol/L High 21.0-32.0 [facility] Comment on above: Order Comment: 512.1 Performed By: #### L 501.6710, L100.0100, L500.2500 ####[facility] [address] [place], [address] Creatinine [Mass/Vol] 0.47 mg/dL Low 0.55-1.02 [facility] Comment on above: Order Comment: 512.1 Result Comment: The validity of the calculated GFR GFRAA in patients over70 years has not been determined. Clinical correlation isessential. Performed By: #### L 501.6710, L100.0100, L500.2500 ####[facility] [address] [place], [address] EST GFR - AA 171 mL/min Normal >60 [facility] Comment on above: Order Comment: 512.1 Result Comment: Afri can [place] GFR Calc Performed By: #### L 501.6710, L100.0100, L500.2500 ####[facility] [address] [place], [address] GAP 6 Normal 5-15 [facility] Comment on above: Order Comment: 512.1 Performed By: #### L 501.6710, L100.0100, L500.2500 ####[facility] [address] [place], [address] GFR/1.73 sq M.predicted among non-blacks MDRD (S/P/Bld) [Vol rate/Area] 142 mL/min/{1.73_m2} Normal >60 [facility] Comment on above: Order Comment: 512.1 Result Comment: Non- GFR Calc Performed By: #### L 501.6710, L100.0100, L500.2500 ####[facility] [address] [place], [address] Glucose [Mass/Vol] 78 mg/dL Normal 74-106 [facility] Comment on above: Order Comment: 512.1 Performed By: #### L 501.6710, L100.0100, L500.2500 ####[facility] [address] [place], [address] Potassium [Moles/Vol] 4.0 mmol/L Normal 3.5-5.1 [facility] Comment on above: Order Comment: 512.1 Performed By: #### L 501.6710, L100.0100, L500.2500 ####[facility] [facility] [address] [place], [address] Sodium [Moles/Vol] 141 mmol/L Normal 136-145 [facility] Comment on above: Order Comment: 512.1 Performed By: #### L 501.6710, L100.0100, L500.2500 ####[facility] [address] [place], [address] Urea nitrogen [Mass/Vol] 27 mg/dL High 7-18 [facility] Comment on above: Order Comment: 512.1 Performed By: #### L 501.6710, L100.0100, L500.2500 ####[facility] [address] [place], [address] CBC W/Diff, Automatedon 09-0 3-2024 Absolute Lymph 3.64 X10 3/uL Normal 0.83-4.51 [facility] Comment on above: Order Comment: 512.1 Performed By: #### L 501.6710, L100.0100, L500.2500 ####[facility] [address] [place], [address] Absolute Neut 5.9 X10 3/uL Normal 2.0-7.7 [facility] Comment on above: Order Comment: 512.1 Performed By: #### L 501.6710, L100.0100, L500.2500 ####[facility] [address] [place], [address] Basophils/100 WBC (Bld) 0.3 % Normal 0-1 [facility] Comment on above: Order Comment: 512.1 Performed By: #### L 501.6710, L100.0100, L500.2500 ####[facility] [address] [place], [address] Eosinophils/100 WBC (Bld) 1.4 % Normal 0-5 [facility] Comment on above: Order Comment: 512.1 Performed By: #### L 501.6710, L100.0100, L500.2500 ####[facility] [address] [place], [address] Erythrocyte distribution width (RBC) [Ratio] 14.9 % High 11.6-14.6 [facility] Comment on above: Order Comment: 512.1 Performed By: #### L 501.6710, L100.0100, L500.2500 ####[facility] [address] [place], [address] Hematocrit (Bld) [Volume fraction] 36.5 % Low 37-47 [facility] Comment on above: Order Comment: 512.1 Performed By: #### L 501.6710, L100.0100, L500.2500 ####[facility] [address] [place], [address] Hemoglobin (Bld) [Mass/Vol] 10.0 g/dL Low 12.0-15.0 [facility] Comment on above: Order Comment: 512.1 Performed By: #### L 501.6710, L100.0100, L500.2500 ####[facility] [address] [place], [address] IG% 0.800 Normal 0.0-0.9 [facility] Comment on above: Order Comment: 512.1 Result Comment: IG% - Immature Granulocytes (promyelocytes, myelocytes andmetamyelocytes) > 1% indicates that a LEFT SHIFT is Present. Performed By: #### L 501.6710, L100.0100, L500.2500 ####[facility] [address] [place], [address] Lymphocytes/100 WBC (Bld) 34.3 % Normal 19-41 [facility] Comment on above: Order Comment: 512.1 Performed By: #### L 501.6710, L100.0100, L500.2500 ####[facility] [address] [place], [address] MCH (RBC) [Entitic mass] 24.2 pg Low 27.0-32.0 [facility] Comment on above: Order Comment: 512.1 Performed By: #### L 501.6710, L100.0100, L500.2500 ####[facility] [address] [place], [address] MCHC (RBC) [Mass/Vol] 27.4 g/dL Low 32-36 [facility] Comment on above: Order Comment: 512.1 Performed By: #### L 501.6710, L100.0100, L500.2500 ####[facility] [address] [place], [address] MCV (RBC) [Entitic vol] 88.4 fL Normal 81-99 [facility] Comment on above: Order Comment: 512.1 Performed By: #### L 501.6710, L100.0100, L500.2500 ####[facility] [address] [place], [address] Monocytes/100 WBC (Bld) 7.4 % Normal 0-10 [facility] Comment on above: Order Comment: 512.1 Performed By: #### L 501.6710, L100.0100, L500.2500 ####[facility] [address] [place], [address] Neutrophils/100 WBC (Bld) 55.8 % Normal 47-70 [facility] Comment on above: Order Comment: 512.1 Performed By: #### L 501.6710, L100.0100, L500.2500 ####[facility] [address] [place], [address] Nucleated RBC (Bld) [#/Vol] 0 10*3/uL Normal 0-5 [facility] Comment on above: Order Comment: 512.1 Performed By: #### L 501.6710, L100.0100, L500.2500 ####[facility] [address] [place], [address] Platelet mean volume (Bld) [Entitic vol] 11.5 fL Normal 6.2-12.0 [facility] Comment on above: Order Comment: 512.1 Performed By: #### L 501.6710, L100.0100, L500.2500 ####[facility] [address] [place], [address] Platelets (Bld) [#/Vol] 230 10*3/uL Normal 150-450 [facility] Comment on above: Order Comment: 512.1 Performed By: #### L 501.6710, L100.0100, L500.2500 ####[facility] [address] [place], [address] RBC (Bld) [#/Vol] 4.13 10*6/uL Low 4.2-5.4 [facility] Comment on above: Order Comment: 512.1 Performed By: #### L 501.6710, L100.0100, L500.2500 ####[facility] [address] [place], [address] RDW SD 47.4 fl High 35.1-43.9 [facility] Comment on above: Order Comment: 512.1 Performed By: #### L 501.6710, L100.0100, L500.2500 ####[facility] [address] [place], [address] WBC (Bld) [#/Vol] 10.6 10*3/uL Normal 4.4-11.0 [facility] Comment on above: Order Comment: 512.1 Performed By: #### L 501.6710, L100.0100, L500.2500 ####[facility] [address] [place], [address] CRPon 12-11-2023 C-REACTIVE PROT 3.56 mg/L High 0.0-3.0 [facility] Comment on above: Order Comment: 512.1 Result Comment: C-Re active Protein (CRP) provides useful information for thediagnosis, therapy and monitoring of inflammatory processesand associated diseases. For the evaluation of Relative Riskfor Cardiovascular Disease, a High Sensitivity CRP (HSCRP)should be ordered. Performed By: #### L 501.6710, L100.0100, L500.2500 ####[facility] [address] [place], [address] Basic Metabolic Profile (BMP )on 12-04-2023 BUN Normal 7-18 [facility] Comment on above: Result Comment: Canc elled via OM: Order cancelled - Patient discharged Performed By: #### L 100.0100, L500.2500 ####[facility] [address] [place], [address] BUN/CRE Normal 10-20 [facility] Comment on above: Result Comment: Canc elled via OM: Order cancelled - Patient discharged Performed By: #### L 100.0100, L500.2500 ####[facility] [address] [place], [address] CA,Total Normal 8.5-10.1 [facility] Comment on above: Result Comment: Canc elled via OM: Order cancelled - Patient discharged Performed By: #### L 100.0100, L500.2500 ####[facility] [address] [place], [address] CL Normal 98-107 [facility] Comment on above: Result Comment: Canc elled via OM: Order cancelled - Patient discharged Performed By: #### L 100.0100, L500.2500 ####[facility] [address] [place], [address] CO2 Normal 21.0-32.0 [facility] Comment on above: Result Comment: Canc elled via OM: Order cancelled - Patient discharged Performed By: #### L 100.0100, L500.2500 ####[facility] [address] [place], [address] CREAT,SERUM Normal 0.55-1.02 [facility] Comment on above: Result Comment: Canc elled via OM: Order cancelled - Patient discharged Performed By: #### L 100.0100, L500.2500 ####[facility] [address] [place], [address] EST GFR Normal >60 [facility] Comment on above: Result Comment: Canc elled via OM: Order cancelled - Patient discharged Performed By: #### L 100.0100, L500.2500 ####[facility] [address] [place], [address] EST GFR - AA Normal >60 [facility] Comment on above: Result Comment: Canc elled via OM: Order cancelled - Patient discharged Performed By: #### L 100.0100, L500.2500 ####[facility] [address] [place], [address] GAP Normal 5-15 [facility] Comment on above: Result Comment: Canc elled via OM: Order cancelled - Patient discharged Performed By: #### L 100.0100, L500.2500 ####[facility] [address] [place], [address] GLU Normal 74-106 [facility] Comment on above: Result Comment: Canc elled via OM: Order cancelled - Patient discharged Performed By: #### L 100.0100, L500.2500 ####[facility] [address] [place], [address] Potassium Normal 3.5-5.1 [facility] Comment on above: Result Comment: Canc elled via OM: Order cancelled - Patient discharged Performed By: #### L 100.0100, L500.2500 ####[facility] [address] [place], [address] Basic Metabolic Profile (BMP) Normal 136-145 [facility] Comment on above: Result Comment: Canc elled via OM: Order cancelled - Patient discharged Performed By: #### L 100.0100, L500.2500 ####[facility] [address] [place], [address] CBC W/Diff, Automatedon 08-2 Absolute Neut Normal 2.0-7.7 [facility] Comment on above: Result Comment: Canc elled via OM: Order cancelled - Patient discharged Performed By: #### L 100.0100, L500.2500 ####[facility] [address] [place], [address] HCT Normal 37-47 [facility] Comment on above: Result Comment: Canc elled via OM: Order cancelled - Patient discharged Performed By: #### L 100.0100, L500.2500 ####[facility] [address] [place], [address] HGB Normal 12.0-15.0 [facility] Comment on above: Result Comment: Canc elled via OM: Order cancelled - Patient discharged Performed By: #### L 100.0100, L500.2500 ####[facility] [address] [place], [address] MCH Normal 27.0-32.0 [facility] Comment on above: Result Comment: Canc elled via OM: Order cancelled - Patient discharged Performed By: #### L 100.0100, L500.2500 ####[facility] [address] [place], [address] MCHC Normal 32-36 [facility] Comment on above: Result Comment: Canc elled via OM: Order cancelled - Patient discharged Performed By: #### L 100.0100, L500.2500 ####[facility] [address] [place], [address] MCV Normal 81-99 [facility] Comment on above: Result Comment: Canc elled via OM: Order cancelled - Patient discharged Performed By: #### L 100.0100, L500.2500 ####[facility] [address] [place], [address] NEUT% Normal 47-70 [facility] Comment on above: Result Comment: Canc elled via OM: Order cancelled - Patient discharged Performed By: #### L 100.0100, L500.2500 ####[facility] [address] [place], [address] PLT Normal 150-450 [facility] Comment on above: Result Comment: Canc elled via OM: Order cancelled - Patient discharged Performed By: #### L 100.0100, L500.2500 ####[facility] [address] [place], [address] RBC Normal 4.2-5.4 [facility] Comment on above: Result Comment: Canc elled via OM: Order cancelled - Patient discharged Performed By: #### L 100.0100, L500.2500 ####[facility] [address] [place], [address] RDW CV Normal 11.6-14.6 [facility] Comment on above: Result Comment: Canc elled via OM: Order cancelled - Patient discharged Performed By: #### L 100.0100, L500.2500 ####[facility] [address] [place], [address] RDW SD Normal 35.1-43.9 [facility] Comment on above: Result Comment: Canc elled via OM: Order cancelled - Patient discharged Performed By: #### L 100.0100, L500.2500 ####[facility] [address] [place], [address] WBC Normal 4.4-11.0 [facility] Comment on above: Result Comment: Canc elled via OM: Order cancelled - Patient discharged Performed By: #### L 100.0100, L500.2500 ####[facility] [address] [place], [address] Basic Metabolic Profile (BMP )on 12-03-2023 BUN Normal 7-18 [facility] Comment on above: Result Comment: Canc elled via OM: Order cancelled - Patient discharged Performed By: #### L 100.0100, L500.2500 ####[facility] [address] [place], [address] BUN/CRE Normal 10-20 [facility] Comment on above: Result Comment: Canc elled via OM: Order cancelled - Patient discharged Performed By: #### L 100.0100, L500.2500 ####[facility] [address] [place], [address] CA,Total Normal 8.5-10.1 [facility] Comment on above: Result Comment: Canc elled via OM: Order cancelled - Patient discharged Performed By: #### L 100.0100, L500.2500 ####[facility] [address] [place], [address] CL Normal 98-107 [facility] Comment on above: Result Comment: Canc elled via OM: Order cancelled - Patient discharged Performed By: #### L 100.0100, L500.2500 ####[facility] [address] [place], [address] CO2 Normal 21.0-32.0 [facility] Comment on above: Result Comment: Canc elled via OM: Order cancelled - Patient discharged Performed By: #### L 100.0100, L500.2500 ####[facility] [address] [place], [address] CREAT,SERUM Normal 0.55-1.02 [facility] Comment on above: Result Comment: Canc elled via OM: Order cancelled - Patient discharged Performed By: #### L 100.0100, L500.2500 ####[facility] [address] [place], [address] EST GFR Normal >60 [facility] Comment on above: Result Comment: Canc elled via OM: Order cancelled - Patient discharged Performed By: #### L 100.0100, L500.2500 ####[facility] [address] [place], [address] EST GFR - AA Normal >60 [facility] Comment on above: Result Comment: Canc elled via OM: Order cancelled - Patient discharged Performed By: #### L 100.0100, L500.2500 ####[facility] [address] [place], [address] GAP Normal 5-15 [facility] Comment on above: Result Comment: Canc elled via OM: Order cancelled - Patient discharged Performed By: #### L 100.0100, L500.2500 ####[facility] [address] [place], [address] GLU Normal 74-106 [facility] Comment on above: Result Comment: Canc elled via OM: Order cancelled - Patient discharged Performed By: #### L 100.0100, L500.2500 ####[facility] [address] [place], [address] Potassium Normal 3.5-5.1 [facility] Comment on above: Result Comment: Canc elled via OM: Order cancelled - Patient discharged Performed By: #### L 100.0100, L500.2500 ####[facility] [address] [place], [address] Basic Metabolic Profile (BMP) Normal 136-145 [facility] Comment on above: Result Comment: Canc elled via OM: Order cancelled - Patient discharged Performed By: #### L 100.0100, L500.2500 ####[facility] [address] [place], [address] CBC W/Diff, Automatedon 08-2 Absolute Neut Normal 2.0-7.7 [facility] Comment on above: Result Comment: Canc elled via OM: Order cancelled - Patient discharged Performed By: #### L 100.0100, L500.2500 ####[facility] [address] [place], [address] HCT Normal 37-47 [facility] Comment on above: Result Comment: Canc elled via OM: Order cancelled - Patient discharged Performed By: #### L 100.0100, L500.2500 ####[facility] [address] [place], [address] HGB Normal 12.0-15.0 [facility] Comment on above: Result Comment: Canc elled via OM: Order cancelled - Patient discharged Performed By: #### L 100.0100, L500.2500 ####[facility] [address] [place], [address] MCH Normal 27.0-32.0 [facility] Comment on above: Result Comment: Canc elled via OM: Order cancelled - Patient discharged Performed By: #### L 100.0100, L500.2500 ####[facility] [address] [place], [address] MCHC Normal 32-36 [facility] Comment on above: Result Comment: Canc elled via OM: Order cancelled - Patient discharged Performed By: #### L 100.0100, L500.2500 ####[facility] [address] [place], [address] MCV Normal 81-99 [facility] Comment on above: Result Comment: Canc elled via OM: Order cancelled - Patient discharged Performed By: #### L 100.0100, L500.2500 ####[facility] [address] [place], [address] NEUT% Normal 47-70 [facility] Comment on above: Result Comment: Canc elled via OM: Order cancelled - Patient discharged Performed By: #### L 100.0100, L500.2500 ####[facility] [address] [place], [address] PLT Normal 150-450 [facility] Comment on above: Result Comment: Canc elled via OM: Order cancelled - Patient discharged Performed By: #### L 100.0100, L500.2500 ####[facility] [address] [place], [address] RBC Normal 4.2-5.4 [facility] Comment on above: Result Comment: Canc elled via OM: Order cancelled - Patient discharged Performed By: #### L 100.0100, L500.2500 ####[facility] [address] [place], [address] RDW CV Normal 11.6-14.6 [facility] Comment on above: Result Comment: Canc elled via OM: Order cancelled - Patient discharged Performed By: #### L 100.0100, L500.2500 ####[facility] [address] [place], [address] RDW SD Normal 35.1-43.9 [facility] Comment on above: Result Comment: Canc elled via OM: Order cancelled - Patient discharged Performed By: #### L 100.0100, L500.2500 ####[facility] [address] [place], [address] WBC Normal 4.4-11.0 [facility] Comment on above: Result Comment: Canc elled via OM: Order cancelled - Patient discharged Performed By: #### L 100.0100, L500.2500 ####[facility] [address] [place], [address] Basic Metabolic Profile (BMP )on 12-02-2023 BUN Normal 7-18 [facility] Comment on above: Result Comment: Canc elled via OM: Order cancelled - Patient discharged Performed By: #### L 100.0100, L500.2500 ####[facility] [address] [place], [address] BUN/CRE Normal 10-20 [facility] Comment on above: Result Comment: Canc elled via OM: Order cancelled - Patient discharged Performed By: #### L 100.0100, L500.2500 ####[facility] [address] [place], [address] CA,Total Normal 8.5-10.1 [facility] Comment on above: Result Comment: Canc elled via OM: Order cancelled - Patient discharged Performed By: #### L 100.0100, L500.2500 ####[facility] [address] [place], [address] CL Normal 98-107 [facility] Comment on above: Result Comment: Canc elled via OM: Order cancelled - Patient discharged Performed By: #### L 100.0100, L500.2500 ####[facility] [address] [place], [address] CO2 Normal 21.0-32.0 [facility] Comment on above: Result Comment: Canc elled via OM: Order cancelled - Patient discharged Performed By: #### L 100.0100, L500.2500 ####[facility] [address] [place], [address] CREAT,SERUM Normal 0.55-1.02 [facility] Comment on above: Result Comment: Canc elled via OM: Order cancelled - Patient discharged Performed By: #### L 100.0100, L500.2500 ####[facility] [address] [place], [address] EST GFR Normal >60 [facility] Comment on above: Result Comment: Canc elled via OM: Order cancelled - Patient discharged Performed By: #### L 100.0100, L500.2500 ####[facility] [address] [place], [address] EST GFR - AA Normal >60 [facility] Comment on above: Result Comment: Canc elled via OM: Order cancelled - Patient discharged Performed By: #### L 100.0100, L500.2500 ####[facility] [address] [place], [address] GAP Normal 5-15 [facility] Comment on above: Result Comment: Canc elled via OM: Order cancelled - Patient discharged Performed By: #### L 100.0100, L500.2500 ####[facility] [address] [place], [address] GLU Normal 74-106 [facility] Comment on above: Result Comment: Canc elled via OM: Order cancelled - Patient discharged Performed By: #### L 100.0100, L500.2500 ####[facility] [address] [place], [address] Potassium Normal 3.5-5.1 [facility] Comment on above: Result Comment: Canc elled via OM: Order cancelled - Patient discharged Performed By: #### L 100.0100, L500.2500 ####[facility] [address] [place], [address] Basic Metabolic Profile (BMP) Normal 136-145 [facility] Comment on above: Result Comment: Canc elled via OM: Order cancelled - Patient discharged Performed By: #### L 100.0100, L500.2500 ####[facility] [address] [place], [address] CBC W/Diff, Automatedon 08-2 -2023 Absolute Neut Normal 2.0-7.7 [facility] Comment on above: Result Comment: Canc elled via OM: Order cancelled - Patient discharged Performed By: #### L 100.0100, L500.2500 ####[facility] [address] [place], [address] HCT Normal 37-47 [facility] Comment on above: Result Comment: Canc elled via OM: Order cancelled - Patient discharged Performed By: #### L 100.0100, L500.2500 ####[facility] [address] [place], [address] HGB Normal 12.0-15.0 [facility] Comment on above: Result Comment: Canc elled via OM: Order cancelled - Patient discharged Performed By: #### L 100.0100, L500.2500 ####[facility] [address] [place], [address] MCH Normal 27.0-32.0 [facility] Comment on above: Result Comment: Canc elled via OM: Order cancelled - Patient discharged Performed By: #### L 100.0100, L500.2500 ####[facility] [address] [place], [address] MCHC Normal 32-36 [facility] Comment on above: Result Comment: Canc elled via OM: Order cancelled - Patient discharged Performed By: #### L 100.0100, L500.2500 ####[facility] [address] [place], [address] MCV Normal 81-99 [facility] Comment on above: Result Comment: Canc elled via OM: Order cancelled - Patient discharged Performed By: #### L 100.0100, L500.2500 ####[facility] [address] [place], [address] NEUT% Normal 47-70 [facility] Comment on above: Result Comment: Canc elled via OM: Order cancelled - Patient discharged Performed By: #### L 100.0100, L500.2500 ####[facility] [address] [place], [address] PLT Normal 150-450 [facility] Comment on above: Result Comment: Canc elled via OM: Order cancelled - Patient discharged Performed By: #### L 100.0100, L500.2500 ####[facility] [address] [place], [address] RBC Normal 4.2-5.4 [facility] Comment on above: Result Comment: Canc elled via OM: Order cancelled - Patient discharged Performed By: #### L 100.0100, L500.2500 ####[facility] [address] [place], [address] RDW CV Normal 11.6-14.6 [facility] Comment on above: Result Comment: Canc elled via OM: Order cancelled - Patient discharged Performed By: #### L 100.0100, L500.2500 ####[facility] [address] [place], [address] RDW SD Normal 35.1-43.9 [facility] Comment on above: Result Comment: Canc elled via OM: Order cancelled - Patient discharged Performed By: #### L 100.0100, L500.2500 ####[facility] [address] [place], [address] WBC Normal 4.4-11.0 [facility] Comment on above: Result Comment: Canc elled via OM: Order cancelled - Patient discharged Performed By: #### L 100.0100, L500.2500 ####[facility] [address] [place], [address] Basic Metabolic Profile (BMP )on 12-01-2023 BUN Normal 7-18 [facility] Comment on above: Result Comment: Canc elled via OM: Order cancelled - Patient discharged Performed By: #### L 100.0100, L500.2500 ####[facility] [address] [place], [address] BUN/CRE Normal 10-20 [facility] Comment on above: Result Comment: Canc elled via OM: Order cancelled - Patient discharged Performed By: #### L 100.0100, L500.2500 ####[facility] [address] [place], [address] CA,Total Normal 8.5-10.1 [facility] Comment on above: Result Comment: Canc elled via OM: Order cancelled - Patient discharged Performed By: #### L 100.0100, L500.2500 ####[facility] [address] [place], [address] CL Normal 98-107 [facility] Comment on above: Result Comment: Canc elled via OM: Order cancelled - Patient discharged Performed By: #### L 100.0100, L500.2500 ####[facility] [address] [place], [address] CO2 Normal 21.0-32.0 [facility] Comment on above: Result Comment: Canc elled via OM: Order cancelled - Patient discharged Performed By: #### L 100.0100, L500.2500 ####[facility] [address] [place], [address] CREAT,SERUM Normal 0.55-1.02 [facility] Comment on above: Result Comment: Canc elled via OM: Order cancelled - Patient discharged Performed By: #### L 100.0100, L500.2500 ####[facility] [address] [place], [address] EST GFR Normal >60 [facility] Comment on above: Result Comment: Canc elled via OM: Order cancelled - Patient discharged Performed By: #### L 100.0100, L500.2500 ####[facility] [address] [place], [address] EST GFR - AA Normal >60 [facility] Comment on above: Result Comment: Canc elled via OM: Order cancelled - Patient discharged Performed By: #### L 100.0100, L500.2500 ####[facility] [address] [place], [address] GAP Normal 5-15 [facility] Comment on above: Result Comment: Canc elled via OM: Order cancelled - Patient discharged Performed By: #### L 100.0100, L500.2500 ####[facility] [address] [place], [address] GLU Normal 74-106 [facility] Comment on above: Result Comment: Canc elled via OM: Order cancelled - Patient discharged Performed By: #### L 100.0100, L500.2500 ####[facility] [address] [place], [address] Potassium Normal 3.5-5.1 [facility] Comment on above: Result Comment: Canc elled via OM: Order cancelled - Patient discharged Performed By: #### L 100.0100, L500.2500 ####[facility] [address] [place], [address] Basic Metabolic Profile (BMP) Normal 136-145 [facility] Comment on above: Result Comment: Canc elled via OM: Order cancelled - Patient discharged Performed By: #### L 100.0100, L500.2500 ####[facility] [address] [place], [address] CBC W/Diff, Automatedon 08-2 Absolute Neut Normal 2.0-7.7 [facility] Comment on above: Result Comment: Canc elled via OM: Order cancelled - Patient discharged Performed By: #### L 100.0100, L500.2500 ####[facility] [address] [place], [address] HCT Normal 37-47 [facility] Comment on above: Result Comment: Canc elled via OM: Order cancelled - Patient discharged Performed By: #### L 100.0100, L500.2500 ####[facility] [address] [place], [address] HGB Normal 12.0-15.0 [facility] Comment on above: Result Comment: Canc elled via OM: Order cancelled - Patient discharged Performed By: #### L 100.0100, L500.2500 ####[facility] [address] [place], [address] MCH Normal 27.0-32.0 [facility] Comment on above: Result Comment: Canc elled via OM: Order cancelled - Patient discharged Performed By: #### L 100.0100, L500.2500 ####[facility] [address] [place], [address] MCHC Normal 32-36 [facility] Comment on above: Result Comment: Canc elled via OM: Order cancelled - Patient discharged Performed By: #### L 100.0100, L500.2500 ####[facility] [address] [place], [address] MCV Normal 81-99 [facility] Comment on above: Result Comment: Canc elled via OM: Order cancelled - Patient discharged Performed By: #### L 100.0100, L500.2500 ####[facility] [address] [place], [address] NEUT% Normal 47-70 [facility] Comment on above: Result Comment: Canc elled via OM: Order cancelled - Patient discharged Performed By: #### L 100.0100, L500.2500 ####[facility] [address] [place], [address] PLT Normal 150-450 [facility] Comment on above: Result Comment: Canc elled via OM: Order cancelled - Patient discharged Performed By: #### L 100.0100, L500.2500 ####[facility] [address] [place], [address] RBC Normal 4.2-5.4 [facility] Comment on above: Result Comment: Canc elled via OM: Order cancelled - Patient discharged Performed By: #### L 100.0100, L500.2500 ####[facility] [address] [place], [address] RDW CV Normal 11.6-14.6 [facility] Comment on above: Result Comment: Canc elled via OM: Order cancelled - Patient discharged Performed By: #### L 100.0100, L500.2500 ####[facility] [address] [place], [address] RDW SD Normal 35.1-43.9 [facility] Comment on above: Result Comment: Canc elled via OM: Order cancelled - Patient discharged Performed By: #### L 100.0100, L500.2500 ####[facility] [address] [place], [address] WBC Normal 4.4-11.0 [facility] Comment on above: Result Comment: Canc elled via OM: Order cancelled - Patient discharged Performed By: #### L 100.0100, L500.2500 ####[facility] [address] [place], [address] Basic Metabolic Profile (BMP )on 11-30-2023 BUN Normal 7-18 [facility] Comment on above: Result Comment: Canc elled via OM: Order cancelled - Patient discharged Performed By: #### L 100.0100, L500.2500 ####[facility] [address] [place], [address] BUN/CRE Normal 10-20 [facility] Comment on above: Result Comment: Canc elled via OM: Order cancelled - Patient discharged Performed By: #### L 100.0100, L500.2500 ####[facility] [address] [place], [address] CA,Total Normal 8.5-10.1 [facility] Comment on above: Result Comment: Canc elled via OM: Order cancelled - Patient discharged Performed By: #### L 100.0100, L500.2500 ####[facility] [address] [place], [address] CL Normal 98-107 [facility] Comment on above: Result Comment: Canc elled via OM: Order cancelled - Patient discharged Performed By: #### L 100.0100, L500.2500 ####[facility] [address] [place], [address] CO2 Normal 21.0-32.0 [facility] Comment on above: Result Comment: Canc elled via OM: Order cancelled - Patient discharged Performed By: #### L 100.0100, L500.2500 ####[facility] [address] [place], [address] CREAT,SERUM Normal 0.55-1.02 [facility] Comment on above: Result Comment: Canc elled via OM: Order cancelled - Patient discharged Performed By: #### L 100.0100, L500.2500 ####[facility] [address] [place], [address] EST GFR Normal >60 [facility] Comment on above: Result Comment: Canc elled via OM: Order cancelled - Patient discharged Performed By: #### L 100.0100, L500.2500 ####[facility] [address] [place], [address] EST GFR - AA Normal >60 [facility] Comment on above: Result Comment: Canc elled via OM: Order cancelled - Patient discharged Performed By: #### L 100.0100, L500.2500 ####[facility] [address] [place], [address] GAP Normal 5-15 [facility] Comment on above: Result Comment: Canc elled via OM: Order cancelled - Patient discharged Performed By: #### L 100.0100, L500.2500 ####[facility] [address] [place], [address] GLU Normal 74-106 [facility] Comment on above: Result Comment: Canc elled via OM: Order cancelled - Patient discharged Performed By: #### L 100.0100, L500.2500 ####[facility] [address] [place], [address] Potassium Normal 3.5-5.1 [facility] Comment on above: Result Comment: Canc elled via OM: Order cancelled - Patient discharged Performed By: #### L 100.0100, L500.2500 ####[facility] [address] [place], [address] Basic Metabolic Profile (BMP) Normal 136-145 [facility] Comment on above: Result Comment: Canc elled via OM: Order cancelled - Patient discharged Performed By: #### L 100.0100, L500.2500 ####[facility] [address] [place], [address] CBC W/Diff, Automatedon 08-2 Absolute Neut Normal 2.0-7.7 [facility] Comment on above: Result Comment: Canc elled via OM: Order cancelled - Patient discharged Performed By: #### L 100.0100, L500.2500 ####[facility] [address] [place], [address] HCT Normal 37-47 [facility] Comment on above: Result Comment: Canc elled via OM: Order cancelled - Patient discharged Performed By: #### L 100.0100, L500.2500 ####[facility] [address] [place], [address] HGB Normal 12.0-15.0 [facility] Comment on above: Result Comment: Canc elled via OM: Order cancelled - Patient discharged Performed By: #### L 100.0100, L500.2500 ####[facility] [address] [place], [address] MCH Normal 27.0-32.0 [facility] Comment on above: Result Comment: Canc elled via OM: Order cancelled - Patient discharged Performed By: #### L 100.0100, L500.2500 ####[facility] [address] [place], [address] MCHC Normal 32-36 [facility] Comment on above: Result Comment: Canc elled via OM: Order cancelled - Patient discharged Performed By: #### L 100.0100, L500.2500 ####[facility] [address] [place], [address] MCV Normal 81-99 [facility] Comment on above: Result Comment: Canc elled via OM: Order cancelled - Patient discharged Performed By: #### L 100.0100, L500.2500 ####[facility] [address] [place], [address] NEUT% Normal 47-70 [facility] Comment on above: Result Comment: Canc elled via OM: Order cancelled - Patient discharged Performed By: #### L 100.0100, L500.2500 ####[facility] [address] [place], [address] PLT Normal 150-450 [facility] Comment on above: Result Comment: Canc elled via OM: Order cancelled - Patient discharged Performed By: #### L 100.0100, L500.2500 ####[facility] [address] [place], [address] RBC Normal 4.2-5.4 [facility] Comment on above: Result Comment: Canc elled via OM: Order cancelled - Patient discharged Performed By: #### L 100.0100, L500.2500 ####[facility] [address] [place], [address] RDW CV Normal 11.6-14.6 [facility] Comment on above: Result Comment: Canc elled via OM: Order cancelled - Patient discharged Performed By: #### L 100.0100, L500.2500 ####[facility] [address] [place], [address] RDW SD Normal 35.1-43.9 [facility] Comment on above: Result Comment: Canc elled via OM: Order cancelled - Patient discharged Performed By: #### L 100.0100, L500.2500 ####[facility] [address] [place], [address] WBC Normal 4.4-11.0 [facility] Comment on above: Result Comment: Canc elled via OM: Order cancelled - Patient discharged Performed By: #### L 100.0100, L500.2500 ####[facility] [address] [place], [address] Basic Metabolic Profile (BMP )on 11-29-2023 BUN Normal 7-18 [facility] Comment on above: Result Comment: Canc elled via OM: Order cancelled - Patient discharged Performed By: #### L 500.2500, L100.0100 ####[facility] [address] [place], [address] BUN/CRE Normal 10-20 [facility] Comment on above: Result Comment: Canc elled via OM: Order cancelled - Patient discharged Performed By: #### L 500.2500, L100.0100 ####[facility] [address] [place], [address] CA,Total Normal 8.5-10.1 [facility] Comment on above: Result Comment: Canc elled via OM: Order cancelled - Patient discharged Performed By: #### L 500.2500, L100.0100 ####[facility] [address] [place], [address] CL Normal 98-107 [facility] Comment on above: Result Comment: Canc elled via OM: Order cancelled - Patient discharged Performed By: #### L 500.2500, L100.0100 ####[facility] [address] [place], [address] CO2 Normal 21.0-32.0 [facility] Comment on above: Result Comment: Canc elled via OM: Order cancelled - Patient discharged Performed By: #### L 500.2500, L100.0100 ####[facility] [address] [place], [address] CREAT,SERUM Normal 0.55-1.02 [facility] Comment on above: Result Comment: Canc elled via OM: Order cancelled - Patient discharged Performed By: #### L 500.2500, L100.0100 ####[facility] [address] [place], [address] EST GFR Normal >60 [facility] Comment on above: Result Comment: Canc elled via OM: Order cancelled - Patient discharged Performed By: #### L 500.2500, L100.0100 ####[facility] [address] [place], [address] EST GFR - AA Normal >60 [facility] Comment on above: Result Comment: Canc elled via OM: Order cancelled - Patient discharged Performed By: #### L 500.2500, L100.0100 ####[facility] [address] [place], [address] GAP Normal 5-15 [facility] Comment on above: Result Comment: Canc elled via OM: Order cancelled - Patient discharged Performed By: #### L 500.2500, L100.0100 ####[facility] [address] [place], [address] GLU Normal 74-106 [facility] Comment on above: Result Comment: Canc elled via OM: Order cancelled - Patient discharged Performed By: #### L 500.2500, L100.0100 ####[facility] [address] [place], [address] Potassium Normal 3.5-5.1 [facility] Comment on above: Result Comment: Canc elled via OM: Order cancelled - Patient discharged Performed By: #### L 500.2500, L100.0100 ####[facility] [address] [place], [address] Basic Metabolic Profile (BMP) Normal 136-145 [facility] Comment on above: Result Comment: Canc elled via OM: Order cancelled - Patient discharged Performed By: #### L 500.2500, L100.0100 ####[facility] [address] [place], [address] CBC W/Diff, Automatedon - Absolute Neut Normal 2.0-7.7 [facility] Comment on above: Result Comment: Canc elled via OM: Order cancelled - Patient discharged Performed By: #### L 500.2500, L100.0100 ####[facility] [address] [place], [address] HCT Normal 37-47 [facility] Comment on above: Result Comment: Canc elled via OM: Order cancelled - Patient discharged Performed By: #### L 500.2500, L100.0100 ####[facility] [address] [place], [address] HGB Normal 12.0-15.0 [facility] Comment on above: Result Comment: Canc elled via OM: Order cancelled - Patient discharged Performed By: #### L 500.2500, L100.0100 ####[facility] [address] [place], [address] MCH Normal 27.0-32.0 [facility] Comment on above: Result Comment: Canc elled via OM: Order cancelled - Patient discharged Performed By: #### L 500.2500, L100.0100 ####[facility] [address] [place], [address] MCHC Normal 32-36 [facility] Comment on above: Result Comment: Canc elled via OM: Order cancelled - Patient discharged Performed By: #### L 500.2500, L100.0100 ####[facility] [address] [place], [address] MCV Normal 81-99 [facility] Comment on above: Result Comment: Canc elled via OM: Order cancelled - Patient discharged Performed By: #### L 500.2500, L100.0100 ####[facility] [address] [place], [address] NEUT% Normal 47-70 [facility] Comment on above: Result Comment: Canc elled via OM: Order cancelled - Patient discharged Performed By: #### L 500.2500, L100.0100 ####[facility] [address] [place], [address] PLT Normal 150-450 [facility] Comment on above: Result Comment: Canc elled via OM: Order cancelled - Patient discharged Performed By: #### L 500.2500, L100.0100 ####[facility] [address] [place], [address] RBC Normal 4.2-5.4 [facility] Comment on above: Result Comment: Canc elled via OM: Order cancelled - Patient discharged Performed By: #### L 500.2500, L100.0100 ####[facility] [address] [place], [address] RDW CV Normal 11.6-14.6 [facility] Comment on above: Result Comment: Canc elled via OM: Order cancelled - Patient discharged Performed By: #### L 500.2500, L100.0100 ####[facility] [address] [place], [address] RDW SD Normal 35.1-43.9 [facility] Comment on above: Result Comment: Canc elled via OM: Order cancelled - Patient discharged Performed By: #### L 500.2500, L100.0100 ####[facility] [address] [place], [address] WBC Normal 4.4-11.0 [facility] Comment on above: Result Comment: Canc elled via OM: Order cancelled - Patient discharged Performed By: #### L 500.2500, L100.0100 ####[facility] [address] [place], [address] CBC-Complete Blood Cnt No Di ffon 11-29-2023 Erythrocyte distribution width (RBC) [Ratio] 14.4 % Normal 11.6-14.6 [facility] Comment on above: Performed By: #### L 500.4050, L100.0500, L506.1000 ####[facility] [address] [place], [address] Hematocrit (Bld) [Volume fraction] 33.9 % Low 37-47 [facility] Comment on above: Performed By: #### L 500.4050, L100.0500, L506.1000 ####[facility] [address] [place], [address] Hemoglobin (Bld) [Mass/Vol] 9.6 g/dL Low 12.0-15.0 [facility] Comment on above: Performed By: #### L 500.4050, L100.0500, L506.1000 ####[facility] [address] [place], [address] MCH (RBC) [Entitic mass] 24.1 pg Low 27.0-32.0 [facility] Comment on above: Performed By: #### L 500.4050, L100.0500, L506.1000 ####[facility] [address] [place], [address] MCHC (RBC) [Mass/Vol] 28.3 g/dL Low 32-36 [facility] Comment on above: Performed By: #### L 500.4050, L100.0500, L506.1000 ####[facility] [address] [place], [address] MCV (RBC) [Entitic vol] 85.0 fL Normal 81-99 [facility] Comment on above: Performed By: #### L 500.4050, L100.0500, L506.1000 ####[facility] [address] [place], [address] Platelet mean volume (Bld) [Entitic vol] 12.0 fL Normal 6.2-12.0 [facility] Comment on above: Performed By: #### L 500.4050, L100.0500, L506.1000 ####[facility] [address] [place], [address] Platelets (Bld) [#/Vol] 312 10*3/uL Normal 150-450 [facility] Comment on above: Performed By: #### L 500.4050, L100.0500, L506.1000 ####[facility] [address] [place], [address] RBC (Bld) [#/Vol] 3.99 10*6/uL Low 4.2-5.4 [facility] Comment on above: Performed By: #### L 500.4050, L100.0500, L506.1000 ####[facility] [address] [place], [address] RDW SD 44.3 fl High 35.1-43.9 [facility] Comment on above: Performed By: #### L 500.4050, L100.0500, L506.1000 ####[facility] [address] [place], [address] WBC (Bld) [#/Vol] 12.4 10*3/uL High 4.4-11.0 [facility] Comment on above: Performed By: #### L 500.4050, L100.0500, L506.1000 ####[facility] [address] [place], [address] Comprehensive Metabolic Prof sulaiman 11-29-2023 Albumin [Mass/Vol] 2.4 g/dL Low 3.2-5.0 [facility] Comment on above: Performed By: #### L 500.4050, L100.0500, L506.1000 ####[facility] [address] [place], [address] Albumin/Globulin [Mass ratio] 0.6 {ratio} Low 0.9-2.4 [facility] Comment on above: Performed By: #### L 500.4050, L100.0500, L506.1000 ####[facility] [address] [place], [address] ALK P 70 U/L Normal 45-117 [facility] Comment on above: Performed By: #### L 500.4050, L100.0500, L506.1000 ####[facility] [address] [place], [address] ALT [Catalytic activity/Vol] 14 U/L Normal 13-56 [facility] Comment on above: Performed By: #### L 500.4050, L100.0500, L506.1000 ####[facility] [address] [place], [address] AST [Catalytic activity/Vol] 8 U/L Low 15-37 [facility] Comment on above: Performed By: #### L 500.4050, L100.0500, L506.1000 ####[facility] [address] [place], [address] Bilirubin [Mass/Vol] 0.20 mg/dL Normal 0.20-1.00 [facility] Comment on above: Result Comment: For patients on eltrombopag therapy, use of Dimension Freeman TBIL is not recommended. Performed By: #### L 500.4050, L100.0500, L506.1000 ####[facility] [address] [place], [address] BUN/CRE 31.5 RATIO High 10-20 [facility] Comment on above: Performed By: #### L 500.4050, L100.0500, L506.1000 ####[facility] [address] [place], [address] CA,Total 9.4 mg/dL Normal 8.5-10.1 [facility] Comment on above: Performed By: #### L 500.4050, L100.0500, L506.1000 ####[facility] [address] [place], [address] Chloride [Moles/Vol] 99 mmol/L Normal 98-107 [facility] Comment on above: Performed By: #### L 500.4050, L100.0500, L506.1000 ####[facility] [address] [place], [address] CO2 [Moles/Vol] 36.0 mmol/L High 21.0-32.0 [facility] Comment on above: Performed By: #### L 500.4050, L100.0500, L506.1000 ####[facility] [address] [place], [address] Creatinine [Mass/Vol] 0.73 mg/dL Normal 0.55-1.02 [facility] Comment on above: Result Comment: The validity of the calculated GFR GFRAA in patients over70 years has not been determined. Clinical correlation isessential. Performed By: #### L 500.4050, L100.0500, L506.1000 ####[facility] [address] [place], [address] EST GFR - AA 104 mL/min Normal >60 [facility] Comment on above: Result Comment: Afri can [place] GFR Calc Performed By: #### L 500.4050, L100.0500, L506.1000 ####[facility] [address] [place], [address] GAP 6 Normal 5-15 [facility] Comment on above: Performed By: #### L 500.4050, L100.0500, L506.1000 ####[facility] [address] [place], [address] GFR/1.73 sq M.predicted among non-blacks MDRD (S/P/Bld) [Vol rate/Area] 86 mL/min/{1.73_m2} Normal >60 [facility] Comment on above: Result Comment: Non- GFR Calc Performed By: #### L 500.4050, L100.0500, L506.1000 ####[facility] [address] [place], [address] Globulin (S) [Mass/Vol] 3.7 g/dL Normal 2.2-4.2 [facility] Comment on above: Performed By: #### L 500.4050, L100.0500, L506.1000 ####[facility] [address] [place], [address] Glucose [Mass/Vol] 100 mg/dL Normal 74-106 [facility] Comment on above: Result Comment: Fast ing Glucose result from 100 to 125 mg/dLsuggests IMPAIRED HOMEOSTASIS per A.D.A. criteria. Performed By: #### L 500.4050, L100.0500, L506.1000 ####[facility] [address] [place], [address] Potassium [Moles/Vol] 3.6 mmol/L Normal 3.5-5.1 [facility] Comment on above: Performed By: #### L 500.4050, L100.0500, L506.1000 ####[facility] [address] [place], [address] Sodium [Moles/Vol] 141 mmol/L Normal 136-145 [facility] Comment on above: Performed By: #### L 500.4050, L100.0500, L506.1000 ####[facility] [address] [place], [address] T PROT 6.1 g/dL Low 6.4-8.2 [facility] Comment on above: Performed By: #### L 500.4050, L100.0500, L506.1000 ####[facility] [address] [place], [address] Urea nitrogen [Mass/Vol] 23 mg/dL High 7-18 [facility] Comment on above: Performed By: #### L 500.4050, L100.0500, L506.1000 ####[facility] [address] [place], [address] Culture, Blood (WB)on 2023 CUB Blood cultures x2, from two different sites No growth in 5 days. Normal [facility] Comment on above: Performed By: #### M 200.1000 ####[facility] [address] [place], [address] Vitamin D,25 Hydroxyon 11-28 Vitamin D 25-OH 53.5 ng/mL Normal [facility] Comment on above: Result Comment: Angela min D 25(OH) Status Range Deficiency <20 ng/mL (50nmol/L) Insufficiency 20 - 30 ng/mL (50 - 75 nmol/L) Sufficiency 30 - 100 ng/mL (75 - 250 nmol/L) Toxicity >100 ng/mL (>250 nmol/L) Performed By: #### L 500.4050, L100.0500, L506.1000 ####[facility] [address] [place], [address] Basic Metabolic Profile (BMP )on 11-28-2023 BUN/CRE 36.2 RATIO High 10-20 [facility] Comment on above: Performed By: #### L 500.2500, L100.0100 ####[facility] [address] [place], [address] CA,Total 9.5 mg/dL Normal 8.5-10.1 [facility] Comment on above: Performed By: #### L 500.2500, L100.0100 ####[facility] [address] [place], [address] Chloride [Moles/Vol] 98 mmol/L Normal 98-107 [facility] Comment on above: Performed By: #### L 500.2500, L100.0100 ####[facility] [address] [place], [address] CO2 [Moles/Vol] 38.0 mmol/L High 21.0-32.0 [facility] Comment on above: Performed By: #### L 500.2500, L100.0100 ####[facility] [address] [place], [address] Creatinine [Mass/Vol] 0.64 mg/dL Normal 0.55-1.02 [facility] Comment on above: Result Comment: The validity of the calculated GFR GFRAA in patients over70 years has not been determined. Clinical correlation isessential. Performed By: #### L 500.2500, L100.0100 ####[facility] [address] [place], [address] ECRCL 140.08 ml/min Normal [facility] Comment on above: Performed By: #### L 500.2500, L100.0100 ####[facility] [address] [place], [address] EST GFR - AA 122 mL/min Normal >60 [facility] Comment on above: Result Comment: Afri can [place] GFR Calc Performed By: #### L 500.2500, L100.0100 ####[facility] [address] [place], [address] GAP 4 Low 5-15 [facility] Comment on above: Performed By: #### L 500.2500, L100.0100 ####[facility] [address] [place], [address] GFR/1.73 sq M.predicted among non-blacks MDRD (S/P/Bld) [Vol rate/Area] 101 mL/min/{1.73_m2} Normal >60 [facility] Comment on above: Result Comment: Non- GFR Calc Performed By: #### L 500.2500, L100.0100 ####[facility] [address] [place], [address] Glucose [Mass/Vol] 84 mg/dL Normal 74-106 [facility] Comment on above: Performed By: #### L 500.2500, L100.0100 ####[facility] [address] [place], [address] Potassium [Moles/Vol] 3.3 mmol/L Low 3.5-5.1 [facility] Comment on above: Performed By: #### L 500.2500, L100.0100 ####[facility] [address] [place], [address] Sodium [Moles/Vol] 140 mmol/L Normal 136-145 [facility] Comment on above: Performed By: #### L 500.2500, L100.0100 ####[facility] [address] [place], [address] Urea nitrogen [Mass/Vol] 23 mg/dL High 7-18 [facility] Comment on above: Performed By: #### L 500.2500, L100.0100 ####[facility] [address] [place], [address] CBC W/Diff, Automatedon 08-2 Absolute Lymph 3.79 X10 3/uL Normal 0.83-4.51 [facility] Comment on above: Performed By: #### L 500.2500, L100.0100 ####[facility] [address] [place], [address] Absolute Neut 7.6 X10 3/uL Normal 2.0-7.7 [facility] Comment on above: Performed By: #### L 500.2500, L100.0100 ####[facility] [address] [place], [address] Basophils/100 WBC (Bld) 0.8 % Normal 0-1 [facility] Comment on above: Performed By: #### L 500.2500, L100.0100 ####[facility] [address] [place], [address] Eosinophils/100 WBC (Bld) 0.5 % Normal 0-5 [facility] Comment on above: Performed By: #### L 500.2500, L100.0100 ####[facility] [address] [place], [address] Erythrocyte distribution width (RBC) [Ratio] 14.3 % Normal 11.6-14.6 [facility] Comment on above: Performed By: #### L 500.2500, L100.0100 ####[facility] [address] [place], [address] Hematocrit (Bld) [Volume fraction] 35.6 % Low 37-47 [facility] Comment on above: Performed By: #### L 500.2500, L100.0100 ####[facility] [address] [place], [address] Hemoglobin (Bld) [Mass/Vol] 10.2 g/dL Low 12.0-15.0 [facility] Comment on above: Performed By: #### L 500.2500, L100.0100 ####[facility] [address] [place], [address] IG% 3.800 High 0.0-0.9 [facility] Comment on above: Result Comment: IG% - Immature Granulocytes (promyelocytes, myelocytes andmetamyelocytes) > 1% indicates that a LEFT SHIFT is Present. Performed By: #### L 500.2500, L100.0100 ####[facility] [address] [place], [address] Lymphocytes/100 WBC (Bld) 29.2 % Normal 19-41 [facility] Comment on above: Performed By: #### L 500.2500, L100.0100 ####[facility] [address] [place], [address] MCH (RBC) [Entitic mass] 24.2 pg Low 27.0-32.0 [facility] Comment on above: Performed By: #### L 500.2500, L100.0100 ####[facility] [address] [place], [address] MCHC (RBC) [Mass/Vol] 28.7 g/dL Low 32-36 [facility] Comment on above: Performed By: #### L 500.2500, L100.0100 ####[facility] [address] [place], [address] MCV (RBC) [Entitic vol] 84.4 fL Normal 81-99 [facility] Comment on above: Performed By: #### L 500.2500, L100.0100 ####[facility] [address] [place], [address] Monocytes/100 WBC (Bld) 7.7 % Normal 0-10 [facility] Comment on above: Performed By: #### L 500.2500, L100.0100 ####[facility] [address] [place], [address] Neutrophils/100 WBC (Bld) 58.0 % Normal 47-70 [facility] Comment on above: Performed By: #### L 500.2500, L100.0100 ####[facility] [address] [place], [address] Nucleated RBC (Bld) [#/Vol] 0 10*3/uL Normal 0-5 [facility] Comment on above: Performed By: #### L 500.2500, L100.0100 ####[facility] [address] [place], [address] Platelet mean volume (Bld) [Entitic vol] 12.2 fL High 6.2-12.0 [facility] Comment on above: Performed By: #### L 500.2500, L100.0100 ####[facility] [address] [place], [address] Platelets (Bld) [#/Vol] 281 10*3/uL Normal 150-450 [facility] Comment on above: Performed By: #### L 500.2500, L100.0100 ####[facility] [address] [place], [address] RBC (Bld) [#/Vol] 4.22 10*6/uL Normal 4.2-5.4 [facility] Comment on above: Performed By: #### L 500.2500, L100.0100 ####[facility] [address] [place], [address] RDW SD 43.6 fl Normal 35.1-43.9 [facility] Comment on above: Performed By: #### L 500.2500, L100.0100 ####[facility] [address] [place], [address] WBC (Bld) [#/Vol] 13.0 10*3/uL High 4.4-11.0 [facility] Comment on above: Performed By: #### L 500.2500, L100.0100 ####[facility] [address] [place], [address] Basic Metabolic Profile (BMP )on 11-27-2023 BUN/CRE 37.7 RATIO High -20 [facility] Comment on above: Performed By: #### L 100.0100, L500.2500 ####[facility] [address] [place], [address] CA,Total 9.8 mg/dL Normal 8.5-10.1 [facility] Comment on above: Performed By: #### L 100.0100, L500.2500 ####[facility] [address] [place], [address] Chloride [Moles/Vol] 97 mmol/L Low 98-107 [facility] Comment on above: Performed By: #### L 100.0100, L500.2500 ####[facility] [address] [place], [address] CO2 [Moles/Vol] 43.0 mmol/L High 21.0-32.0 [facility] Comment on above: Performed By: #### L 100.0100, L500.2500 ####[facility] [address] [place], [address] Creatinine [Mass/Vol] 0.64 mg/dL Normal 0.55-1.02 [facility] Comment on above: Result Comment: The validity of the calculated GFR GFRAA in patients over70 years has not been determined. Clinical correlation isessential. Performed By: #### L 100.0100, L500.2500 ####[facility] [address] [place], [address] ECRCL 140.02 ml/min Normal [facility] Comment on above: Performed By: #### L 100.0100, L500.2500 ####[facility] [address] [place], [address] EST GFR - AA 122 mL/min Normal >60 [facility] Comment on above: Result Comment: Afri can [place] GFR Calc Performed By: #### L 100.0100, L500.2500 ####[facility] [address] [place], [address] GAP 2 Low 5-15 [facility] Comment on above: Performed By: #### L 100.0100, L500.2500 ####[facility] [address] [place], [address] GFR/1.73 sq M.predicted among non-blacks MDRD (S/P/Bld) [Vol rate/Area] 101 mL/min/{1.73_m2} Normal >60 [facility] Comment on above: Result Comment: Non- GFR Calc Performed By: #### L 100.0100, L500.2500 ####[facility] [address] [place], [address] Glucose [Mass/Vol] 87 mg/dL Normal 74-106 [facility] Comment on above: Performed By: #### L 100.0100, L500.2500 ####[facility] [address] [place], [address] Potassium [Moles/Vol] 3.3 mmol/L Low 3.5-5.1 [facility] Comment on above: Performed By: #### L 100.0100, L500.2500 ####[facility] [address] [place], [address] Sodium [Moles/Vol] 142 mmol/L Normal 136-145 [facility] Comment on above: Performed By: #### L 100.0100, L500.2500 ####[facility] [address] [place], [address] Urea nitrogen [Mass/Vol] 24 mg/dL High 7-18 [facility] Comment on above: Performed By: #### L 100.0100, L500.2500 ####[facility] [address] [place], [address] CBC W/Diff, Automatedon 08-2 0-2023 Absolute Lymph 3.58 X10 3/uL Normal 0.83-4.51 [facility] Comment on above: Performed By: #### L 100.0100, L500.2500 ####[facility] [address] [place], [address] Absolute Neut 5.2 X10 3/uL Normal 2.0-7.7 [facility] Comment on above: Performed By: #### L 100.0100, L500.2500 ####[facility] [address] [place], [address] Basophils/100 WBC (Bld) 0.3 % Normal 0-1 [facility] Comment on above: Performed By: #### L 100.0100, L500.2500 ####[facility] [address] [place], [address] Eosinophils/100 WBC (Bld) 0.6 % Normal 0-5 [facility] Comment on above: Performed By: #### L 100.0100, L500.2500 ####[facility] [address] [place], [address] Erythrocyte distribution width (RBC) [Ratio] 14.1 % Normal 11.6-14.6 [facility] Comment on above: Performed By: #### L 100.0100, L500.2500 ####[facility] [address] [place], [address] Hematocrit (Bld) [Volume fraction] 35.5 % Low 37-47 [facility] Comment on above: Performed By: #### L 100.0100, L500.2500 ####[facility] [address] [place], [address] Hemoglobin (Bld) [Mass/Vol] 10.2 g/dL Low 12.0-15.0 [facility] Comment on above: Performed By: #### L 100.0100, L500.2500 ####[facility] [address] [place], [address] IG% 3.400 High 0.0-0.9 [facility] Comment on above: Result Comment: IG% - Immature Granulocytes (promyelocytes, myelocytes andmetamyelocytes) > 1% indicates that a LEFT SHIFT is Present. Performed By: #### L 100.0100, L500.2500 ####[facility] [address] [place], [address] Lymphocytes/100 WBC (Bld) 35.6 % Normal 19-41 [facility] Comment on above: Performed By: #### L 100.0100, L500.2500 ####[facility] [address] [place], [address] MCH (RBC) [Entitic mass] 24.4 pg Low 27.0-32.0 [facility] Comment on above: Performed By: #### L 100.0100, L500.2500 ####[facility] [address] [place], [address] MCHC (RBC) [Mass/Vol] 28.7 g/dL Low 32-36 [facility] Comment on above: Performed By: #### L 100.0100, L500.2500 ####[facility] [address] [place], [address] MCV (RBC) [Entitic vol] 84.9 fL Normal 81-99 [facility] Comment on above: Performed By: #### L 100.0100, L500.2500 ####[facility] [address] [place], [address] Monocytes/100 WBC (Bld) 8.9 % Normal 0-10 [facility] Comment on above: Performed By: #### L 100.0100, L500.2500 ####[facility] [address] [place], [address] Neutrophils/100 WBC (Bld) 51.2 % Normal 47-70 [facility] Comment on above: Performed By: #### L 100.0100, L500.2500 ####[facility] [address] [place], [address] Nucleated RBC (Bld) [#/Vol] 0 10*3/uL Normal 0-5 [facility] Comment on above: Performed By: #### L 100.0100, L500.2500 ####[facility] [address] [place], [address] Platelet mean volume (Bld) [Entitic vol] 11.6 fL Normal 6.2-12.0 [facility] Comment on above: Performed By: #### L 100.0100, L500.2500 ####[facility] [address] [place], [address] Platelets (Bld) [#/Vol] 269 10*3/uL Normal 150-450 [facility] Comment on above: Performed By: #### L 100.0100, L500.2500 ####[facility] [address] [place], [address] RBC (Bld) [#/Vol] 4.18 10*6/uL Low 4.2-5.4 [facility] Comment on above: Performed By: #### L 100.0100, L500.2500 ####[facility] [address] [place], [address] RDW SD 43.5 fl Normal 35.1-43.9 [facility] Comment on above: Performed By: #### L 100.0100, L500.2500 ####[facility] [address] [place], [place], [address] WBC (Bld) [#/Vol] 10.1 10*3/uL Normal 4.4-11.0 [facility] Comment on above: Performed By: #### L 100.0100, L500.2500 ####[facility] [address] [place], [place], [address] Hepatitis B Core Ab Totalon 11-27-2023 HEP B CORE,TOT Negative Normal Negative [facility] Comment on above: Order Comment: Has p t arrived? Y Result Comment: Perf ormed at: [facility] [address] [id number] Director: Chadd Carter PhD, Phone: [phone] Performed By: #### L 3894.4599, D9529.9636, L3228.0517, L3649.6971, L3344.1548 ####[facility] [address] [place], [place], [address] Vancomycin, Random Levelon 0 11-27-2023 VANCO, RANDOM 14.6 ug/mL Normal 0.0-15.0 [facility] Comment on above: Result Comment: VANC OMYCIN STANDARD DRUG THERAPY: CRITICAL VALUE IS > 15.0 mg/LVANCOMYCIN HIGH INTENSITY THERAPY: CRITICAL VALUE IS > 20.0 mg/LPLEASE CONTACT PHARMACY SERVICES (#9731) FOR INTERPRETATIONOF RESULTS. THIS RESULT DOES NOT REPRESENT A PEAK OR TROUGHLEVEL FOR THIS DRUG. Performed By: #### L 501.8850 ####[facility] [address] [place], [place], [id number] VANCO, RANDOM 21.0 ug/mL High 0.0-15.0 [facility] Comment on above: Result Comment: VANC OMYCIN STANDARD DRUG THERAPY: CRITICAL VALUE IS > 15.0 mg/LVANCOMYCIN HIGH INTENSITY THERAPY: CRITICAL VALUE IS > 20.0 mg/LPLEASE CONTACT PHARMACY SERVICES (#8556) FOR INTERPRETATIONOF RESULTS. THIS RESULT DOES NOT REPRESENT A PEAK OR TROUGHLEVEL FOR THIS DRUG. Performed By: #### L 501.8850 ####[facility] [address] [place], [address] Basic Metabolic Profile (BMP )on 11-26-2023 BUN/CRE 28.4 RATIO High 10-20 [facility] Comment on above: Performed By: #### L 500.2500, L100.0100 ####[facility] [address] [place], [address] CA,Total 9.5 mg/dL Normal 8.5-10.1 [facility] Comment on above: Performed By: #### L 500.2500, L100.0100 ####[facility] [address] [place], [address] Chloride [Moles/Vol] 98 mmol/L Normal 98-107 [facility] Comment on above: Performed By: #### L 500.2500, L100.0100 ####[facility] [address] [place], [address] CO2 [Moles/Vol] 41.0 mmol/L High 21.0-32.0 [facility] Comment on above: Performed By: #### L 500.2500, L100.0100 ####[facility] [address] [place], [address] Creatinine [Mass/Vol] 0.74 mg/dL Normal 0.55-1.02 [facility] Comment on above: Result Comment: The validity of the calculated GFR GFRAA in patients over70 years has not been determined. Clinical correlation isessential. Performed By: #### L 500.2500, L100.0100 ####[facility] [address] [place], [address] ECRCL 120.95 ml/min Normal [facility] Comment on above: Performed By: #### L 500.2500, L100.0100 ####[facility] [address] [place], [address] EST GFR - AA 102 mL/min Normal >60 [facility] Comment on above: Result Comment: Afri can [place] GFR Calc Performed By: #### L 500.2500, L100.0100 ####[facility] [address] [place], [address] GAP 3 Low 5-15 [facility] Comment on above: Performed By: #### L 500.2500, L100.0100 ####[facility] [address] [place], [address] GFR/1.73 sq M.predicted among non-blacks MDRD (S/P/Bld) [Vol rate/Area] 85 mL/min/{1.73_m2} Normal >60 [facility] Comment on above: Result Comment: Non- GFR Calc Performed By: #### L 500.2500, L100.0100 ####[facility] [address] [place], [address] Glucose [Mass/Vol] 94 mg/dL Normal 74-106 [facility] Comment on above: Performed By: #### L 500.2500, L100.0100 ####[facility] [address] [place], [address] Potassium [Moles/Vol] 3.2 mmol/L Low 3.5-5.1 [facility] Comment on above: Performed By: #### L 500.2500, L100.0100 ####[facility] [address] [place], [address] Sodium [Moles/Vol] 142 mmol/L Normal 136-145 [facility] Comment on above: Performed By: #### L 500.2500, L100.0100 ####[facility] [address] [place], [address] Urea nitrogen [Mass/Vol] 21 mg/dL High 7-18 [facility] Comment on above: Performed By: #### L 500.2500, L100.0100 ####[facility] [address] [place], [address] CBC W/Diff, Automatedon 11-07 ATYPICAL LYMPH 2+ Normal [facility] Comment on above: Performed By: #### L 500.2500, L100.0100 ####[facility] [address] [place], [address] SMEAR COMMENT SCANNED Normal [facility] Comment on above: Performed By: #### L 500.2500, L100.0100 ####[facility] [address] [place], [address] Vancomycin, Trough Levelon 0 11-26-2023 VANCO, TROUGH 32.5 ug/mL High 5.0-15.0 [facility] Comment on above: Order Comment: Comme nts: Trough to be drawn 30 mins prior to scheduled [id number] Result Comment: VANC OMYCIN STANDARED DRUG THERAPY TROUGH LEVEL: 5.0 - 15.0 mg/LVANCOMYCIN HIGH INTENSITY THERAPY TROUGH LEVEL: 15.0 - 20.0 mg/LHigh Intensity therapy recommended for serious lifethreatening infections include:- Bpeukhppgi-Ywykcpszsgai-Tmmhnrhoz (Ventilator/Healtcare Associated)-SepsisPLEASE CONTACT PHARMACY SERVICES (#0248) FOR INTERPRETATIONOF RESULTS. Performed By: #### L 501.8820 ####[facility] [address] [place], [address] Basic Metabolic Profile (BMP )on 11-25-2023 BUN/CRE 32.6 RATIO High 10-20 [facility] Comment on above: Performed By: #### L 500.2500, L100.0100 ####[facility] [address] [place], [address] CA,Total 9.7 mg/dL Normal 8.5-10.1 [facility] Comment on above: Performed By: #### L 500.2500, L100.0100 ####[facility] [address] [place], [address] Chloride [Moles/Vol] 99 mmol/L Normal 98-107 [facility] Comment on above: Performed By: #### L 500.2500, L100.0100 ####[facility] [address] [place], [address] CO2 [Moles/Vol] 42.0 mmol/L High 21.0-32.0 [facility] Comment on above: Performed By: #### L 500.2500, L100.0100 ####[facility] [address] [place], [address] Creatinine [Mass/Vol] 0.58 mg/dL Normal 0.55-1.02 [facility] Comment on above: Result Comment: The validity of the calculated GFR GFRAA in patients over70 years has not been determined. Clinical correlation isessential. Performed By: #### L 500.2500, L100.0100 ####[facility] [address] [place], [address] ECRCL 154.64 ml/min Normal [facility] Comment on above: Performed By: #### L 500.2500, L100.0100 ####[facility] [address] [place], [address] EST GFR - AA 135 mL/min Normal >60 [facility] Comment on above: Result Comment: Afri can [place] GFR Calc Performed By: #### L 500.2500, L100.0100 ####[facility] [address] [place], [address] GAP 0 Low 5-15 [facility] Comment on above: Performed By: #### L 500.2500, L100.0100 ####[facility] [address] [place], [address] GFR/1.73 sq M.predicted among non-blacks MDRD (S/P/Bld) [Vol rate/Area] 111 mL/min/{1.73_m2} Normal >60 [facility] Comment on above: Result Comment: Non- GFR Calc Performed By: #### L 500.2500, L100.0100 ####[facility] [address] [place], [address] Glucose [Mass/Vol] 92 mg/dL Normal 74-106 [facility] Comment on above: Performed By: #### L 500.2500, L100.0100 ####[facility] [address] [place], [address] Potassium [Moles/Vol] 3.7 mmol/L Normal 3.5-5.1 [facility] Comment on above: Performed By: #### L 500.2500, L100.0100 ####[facility] [address] [place], [address] Sodium [Moles/Vol] 141 mmol/L Normal 136-145 [facility] Comment on above: Performed By: #### L 500.2500, L100.0100 ####[facility] [address] [place], [address] Urea nitrogen [Mass/Vol] 19 mg/dL High 7-18 [facility] Comment on above: Performed By: #### L 500.2500, L100.0100 ####[facility] [address] [place], [address] Bedside Glucoseon 11-24-2023 FINGERSTICK GLU 168 mg/dL High 74-106 [facility] Comment on above: Result Comment: GODFREY BOOKER OF PATIENT CARE PER NURSING PROTOCOL Performed By: #### L 501.080 ####[facility] [address] [place], [address] CBC W/Diff, Automatedon 11-07 Absolute Lymph 2.27 X10 3/uL Normal 0.83-4.51 [facility] Comment on above: Performed By: #### L 500.2500, L100.0100 ####[facility] [address] [place], [address] Absolute Neut 3.2 X10 3/uL Normal 2.0-7.7 [facility] Comment on above: Performed By: #### L 500.2500, L100.0100 ####[facility] [address] [place], [address] Basophils/100 WBC (Bld) 0.2 % Normal 0-1 [facility] Comment on above: Performed By: #### L 500.2500, L100.0100 ####[facility] [address] [place], [address] Eosinophils/100 WBC (Bld) 0.2 % Normal 0-5 [facility] Comment on above: Performed By: #### L 500.2500, L100.0100 ####[facility] [address] [place], [address] Erythrocyte distribution width (RBC) [Ratio] 13.8 % Normal 11.6-14.6 [facility] Comment on above: Performed By: #### L 500.2500, L100.0100 ####[facility] [address] [place], [address] Hematocrit (Bld) [Volume fraction] 31.8 % Low 37-47 [facility] Comment on above: Performed By: #### L 500.2500, L100.0100 ####[facility] [address] [place], [address] Hemoglobin (Bld) [Mass/Vol] 8.9 g/dL Low 12.0-15.0 [facility] Comment on above: Performed By: #### L 500.2500, L100.0100 ####[facility] [address] [place], [address] IG% 1.800 High 0.0-0.9 [facility] Comment on above: Result Comment: IG% - Immature Granulocytes (promyelocytes, myelocytes andmetamyelocytes) > 1% indicates that a LEFT SHIFT is Present. Performed By: #### L 500.2500, L100.0100 ####[facility] [address] [place], [address] Lymphocytes/100 WBC (Bld) 36.4 % Normal 19-41 [facility] Comment on above: Performed By: #### L 500.2500, L100.0100 ####[facility] [address] [place], [address] MCH (RBC) [Entitic mass] 24.9 pg Low 27.0-32.0 [facility] Comment on above: Performed By: #### L 500.2500, L100.0100 ####[facility] [address] [place], [address] MCHC (RBC) [Mass/Vol] 28.0 g/dL Low 32-36 [facility] Comment on above: Performed By: #### L 500.2500, L100.0100 ####[facility] [address] [place], [address] MCV (RBC) [Entitic vol] 88.8 fL Normal 81-99 [facility] Comment on above: Performed By: #### L 500.2500, L100.0100 ####[facility] [address] [place], [address] Monocytes/100 WBC (Bld) 9.5 % Normal 0-10 [facility] Comment on above: Performed By: #### L 500.2500, L100.0100 ####[facility] [address] [place], [address] Neutrophils/100 WBC (Bld) 51.9 % Normal 47-70 [facility] Comment on above: Performed By: #### L 500.2500, L100.0100 ####[facility] [address] [place], [address] Nucleated RBC (Bld) [#/Vol] 0 10*3/uL Normal 0-5 [facility] Comment on above: Performed By: #### L 500.2500, L100.0100 ####[facility] [address] [place], [address] Platelet mean volume (Bld) [Entitic vol] 11.8 fL Normal 6.2-12.0 [facility] Comment on above: Performed By: #### L 500.2500, L100.0100 ####[facility] [address] [place], [address] Platelets (Bld) [#/Vol] 214 10*3/uL Normal 150-450 [facility] Comment on above: Performed By: #### L 500.2500, L100.0100 ####[facility] [address] [place], [address] RBC (Bld) [#/Vol] 3.58 10*6/uL Low 4.2-5.4 [facility] Comment on above: Performed By: #### L 500.2500, L100.0100 ####[facility] [address] [place], [address] RDW SD 44.7 fl High 35.1-43.9 [facility] Comment on above: Performed By: #### L 500.2500, L100.0100 ####[facility] [address] [place], [address] WBC (Bld) [#/Vol] 6.2 10*3/uL Normal 4.4-11.0 [facility] Comment on above: Performed By: #### L 500.2500, L100.0100 ####[facility] [address] [place], [address] Alkaline Phosphataseon 11-23 ALK P 78 U/L Normal 45-117 [facility] Comment on above: Performed By: #### L 501.4305 ####[facility] [address] [place], [address] Bedside Glucoseon 11-24-2023 FINGERSTICK GLU 123 mg/dL High 74-106 [facility] Comment on above: Result Comment: GODFREY BOOKER OF PATIENT CARE PER NURSING PROTOCOL Performed By: #### L 501.080 ####[facility] [address] [place], [address] Blood Gases by CPSon 024 ROSA TEST Positive Normal [facility] Comment on above: Performed By: #### L 9000.0800 ####[facility] [address] [place], [address] Base excess Calc (Bld) [Moles/Vol] 21 mmol/L High -2 to +2 [facility] Comment on above: Performed By: #### L 9000.0800 ####[facility] [address] [place], [address] Blood Gas Type ART Normal [facility] Comment on above: Performed By: #### L 9000.0800 ####[facility] [address] [place], [address] CO2 [Moles/Vol] 48 mmol/L Normal [facility] Comment on above: Performed By: #### L 9000.0800 ####[facility] [address] [place], [address] FI02 35.0 Normal [facility] Comment on above: Performed By: #### L 9000.0800 ####[facility] [address] [place], [address] HCO3 (Bld) [Moles/Vol] 45.5 mmol/L High 22-26 [facility] Comment on above: Performed By: #### L 9000.0800 ####[facility] [address] [place], [address] Mode avaps Normal [facility] Comment on above: Performed By: #### L 9000.0800 ####[facility] [address] [place], [address] O2 Delivery Dev BiPAP Normal [facility] Comment on above: Performed By: #### L 9000.0800 ####[facility] [address] [place], [address] pCO2 71.8 mmHg Invalid Interpretation Code 35-45 [facility] Comment on above: Performed By: #### L 9000.0800 ####[facility] [address] [place], [address] PEEP 10 Normal [facility] Comment on above: Performed By: #### L 9000.0800 ####[facility] [address] [place], [address] pH (Bld) 7.41 [pH] Normal 7.35-7.45 [facility] Comment on above: Performed By: #### L 9000.0800 ####[facility] [address] [place], [address] PO2 102 mmHG High 75-100 [facility] Comment on above: Performed By: #### L 9000.0800 ####[facility] [address] [place], [address] Read Back By Yes [facility] Comment on above: Performed By: #### L 9000.0800 ####[facility] [address] [place], [address] Results To de elgin Normal [facility] Comment on above: Performed By: #### L 8999.0800 ####[facility] [address] [place], [address] RR 12 Normal [facility] Comment on above: Performed By: #### L 8999.08 ####[facility] [address] [place], [address] SITE L Radial Normal [facility] Comment on above: Performed By: #### L 8999.08 ####[facility] [address] [place], [address] SO2 98 Normal 95-99 [facility] Comment on above: Performed By: #### L 8999.0800 ####[facility] [address] [place], [address] Time Given 07:02:16 Normal [facility] Comment on above: Performed By: #### L 8999.08 ####[facility] [address] [place], [address] Vt 500.0 mL [facility] Comment on above: Performed By: #### L 8999.0800 ####[facility] [address] [place], [address] ROSA TEST N/A Normal [facility] Comment on above: Performed By: #### L 8999.0800 ####[facility] [address] [place], [address] Base excess Calc (Bld) [Moles/Vol] 17 mmol/L High -2 to +2 [facility] Comment on above: Performed By: #### L 8999.0800 ####[facility] [address] [place], [address] Blood Gas Type ART Normal [facility] Comment on above: Performed By: #### L 8999.0800 ####[facility] [address] [place], [address] CO2 [Moles/Vol] 46 mmol/L Normal [facility] Comment on above: Performed By: #### L 9000.0800 ####[facility] [address] [place], [address] FI02 50.0 Normal [facility] Comment on above: Performed By: #### L 0.0800 ####[facility] [address] [place], [address] HCO3 (Bld) [Moles/Vol] 43.2 mmol/L High 22-26 [facility] Comment on above: Performed By: #### L 0.0800 ####[facility] [address] [place], [address] Mode Not entered Normal [facility] Comment on above: Performed By: #### L 9000.0800 ####[facility] [address] [place], [address] O2 Delivery Dev BiPAP Normal [facility] Comment on above: Performed By: #### L 9000.0800 ####[facility] [address] [place], [address] pCO2 85.5 mmHg Invalid Interpretation Code 35-45 [facility] Comment on above: Performed By: #### L 9000.0800 ####[facility] [address] [place], [address] PEEP 10 Normal [facility] Comment on above: Performed By: #### L 9000.0800 ####[facility] [address] [place], [address] pH (Bld) 7.31 [pH] Low 7.35-7.45 [facility] Comment on above: Performed By: #### L 0.0800 ####[facility] [address] [place], [address] PO2 140 mmHG High 75-100 [facility] Comment on above: Performed By: #### L 9000.0800 ####[facility] [address] [place], [address] Read Back By Yes Normal [facility] Comment on above: Performed By: #### L 9000.0800 ####[facility] [address] [place], [address] Otoole [facility] Comment on above: Performed By: #### L 9000.0800 ####[facility] [address] [place], [address] RR 12 Normal [facility] Comment on above: Performed By: #### L 9000.0800 ####[facility] [address] [place], [address] SITE L Radial Normal [facility] Comment on above: Performed By: #### L 9000.0800 ####[facility] [address] [place], [address] SO2 99 Normal 95-99 [facility] Comment on above: Performed By: #### L 9000.0800 ####[facility] [address] [place], [address] Time Given 00:06:53 [facility] Comment on above: Performed By: #### L 9000.0800 ####[facility] [address] [place], [address] Vt 500.0 mL Normal [facility] Comment on above: Performed By: #### L 9000.0800 ####[facility] [address] [place], [address] CBC W/Diff, Automatedon 11-07 Absolute Lymph 0.86 X10 3/uL Normal 0.83-4.51 [facility] Comment on above: Performed By: #### L 501.6710, L501.5200, L501.9985, L501.9520, L501.2300, L500.4050, L100.0100 ####[facility] [address] [place], [address] Absolute Neut 4.1 X10 3/uL Normal 2.0-7.7 [facility] Comment on above: Performed By: #### L 501.6710, L501.5200, L501.9985, L501.9520, L501.2300, L500.4050, L100.0100 ####[facility] [address] [place], [address] Basophils/100 WBC (Bld) 0.2 % Normal 0-1 [facility] Comment on above: Performed By: #### L 501.6710, L501.5200, L501.9985, L501.9520, L501.2300, L500.4050, L100.0100 ####[facility] [address] [place], [address] Eosinophils/100 WBC (Bld) 0.0 % Normal 0-5 [facility] Comment on above: Performed By: #### L 501.6710, L501.5200, L501.9985, L501.9520, L501.2300, L500.4050, L100.0100 ####[facility] [address] [place], [address] Erythrocyte distribution width (RBC) [Ratio] 14.0 % Normal 11.6-14.6 [facility] Comment on above: Performed By: #### L 501.6710, L501.5200, L501.9985, L501.9520, L501.2300, L500.4050, L100.0100 ####[facility] [address] [place], [address] Hematocrit (Bld) [Volume fraction] 34.3 % Low 37-47 [facility] Comment on above: Performed By: #### L 501.6710, L501.5200, L501.9985, L501.9520, L501.2300, L500.4050, L100.0100 ####[facility] [address] [place], [address] Hemoglobin (Bld) [Mass/Vol] 9.6 g/dL Low 12.0-15.0 [facility] Comment on above: Performed By: #### L 501.6710, L501.5200, L501.9985, L501.9520, L501.2300, L500.4050, L100.0100 ####[facility] [address] [place], [address] IG% 2.000 High 0.0-0.9 [facility] Comment on above: Result Comment: IG% - Immature Granulocytes (promyelocytes, myelocytes andmetamyelocytes) > 1% indicates that a LEFT SHIFT is Present. Performed By: #### L 501.6710, L501.5200, L501.9985, L501.9520, L501.2300, L500.4050, L100.0100 ####[facility] [address] [place], [address] Lymphocytes/100 WBC (Bld) 15.7 % Low 19-41 [facility] Comment on above: Performed By: #### L 501.6710, L501.5200, L501.9985, L501.9520, L501.2300, L500.4050, L100.0100 ####[facility] [address] [place], [address] MCH (RBC) [Entitic mass] 24.4 pg Low 27.0-32.0 [facility] [facility] Comment on above: Performed By: #### L 501.6710, L501.5200, L501.9985, L501.9520, L501.2300, L500.4050, L100.0100 ####[facility] [address] [place], [address] MCHC (RBC) [Mass/Vol] 28.0 g/dL Low 32-36 [facility] Comment on above: Performed By: #### L 501.6710, L501.5200, L501.9985, L501.9520, L501.2300, L500.4050, L100.0100 ####[facility] [address] [place], [address] MCV (RBC) [Entitic vol] 87.3 fL Normal 81-99 [facility] Comment on above: Performed By: #### L 501.6710, L501.5200, L501.9985, L501.9520, L501.2300, L500.4050, L100.0100 ####[facility] [address] [place], [address] Monocytes/100 WBC (Bld) 7.5 % Normal 0-10 [facility] Comment on above: Performed By: #### L 501.6710, L501.5200, L501.9985, L501.9520, L501.2300, L500.4050, L100.0100 ####[facility] [address] [place], [address] Neutrophils/100 WBC (Bld) 74.6 % High 47-70 [facility] Comment on above: Performed By: #### L 501.6710, L501.5200, L501.9985, L501.9520, L501.2300, L500.4050, L100.0100 ####[facility] [address] [place], [address] Nucleated RBC (Bld) [#/Vol] 0 10*3/uL Normal 0-5 [facility] Comment on above: Performed By: #### L 501.6710, L501.5200, L501.9985, L501.9520, L501.2300, L500.4050, L100.0100 ####[facility] [address] [place], [address] Platelet mean volume (Bld) [Entitic vol] 12.3 fL High 6.2-12.0 [facility] Comment on above: Performed By: #### L 501.6710, L501.5200, L501.9985, L501.9520, L501.2300, L500.4050, L100.0100 ####[facility] [address] [place], [address] Platelets (Bld) [#/Vol] 225 10*3/uL Normal 150-450 [facility] Comment on above: Performed By: #### L 501.6710, L501.5200, L501.9985, L501.9520, L501.2300, L500.4050, L100.0100 ####[facility] [address] [place], [address] RBC (Bld) [#/Vol] 3.93 10*6/uL Low 4.2-5.4 [facility] Comment on above: Performed By: #### L 501.6710, L501.5200, L501.9985, L501.9520, L501.2300, L500.4050, L100.0100 ####[facility] [address] [place], [address] RDW SD 45.1 fl High 35.1-43.9 [facility] Comment on above: Performed By: #### L 501.6710, L501.5200, L501.9985, L501.9520, L501.2300, L500.4050, L100.0100 ####[facility] [address] [place], [place], [address] WBC (Bld) [#/Vol] 5.5 10*3/uL Normal 4.4-11.0 [facility] Comment on above: Performed By: #### L 501.6710, L501.5200, L501.9985, L501.9520, L501.2300, L500.4050, L100.0100 ####[facility] [address] [place], [address] CRPon 11-24-2023 C-REACTIVE PROT 92.40 mg/L High 0.0-3.0 [facility] Comment on above: Result Comment: C-Re active Protein (CRP) provides useful information for thediagnosis, therapy and monitoring of inflammatory processesand associated diseases. For the evaluation of Relative Riskfor Cardiovascular Disease, a High Sensitivity CRP (HSCRP)should be ordered. Performed By: #### L 501.6710, L501.5200, L501.9985, L501.9520, L501.2300, L500.4050, L100.0100 ####[facility] [address] [place], [address] Comprehensive Metabolic Prof ilon 11-24-2023 Albumin [Mass/Vol] 2.3 g/dL Low 3.2-5.0 [facility] Comment on above: Performed By: #### L 501.6710, L501.5200, L501.9985, L501.9520, L501.2300, L500.4050, L100.0100 ####[facility] [address] [place], [address] Albumin/Globulin [Mass ratio] 0.5 {ratio} Low 0.9-2.4 [facility] Comment on above: Performed By: #### L 501.6710, L501.5200, L501.9985, L501.9520, L501.2300, L500.4050, L100.0100 ####[facility] [address] [place], [address] ALK P 73 U/L Normal 45-117 [facility] Comment on above: Performed By: #### L 501.6710, L501.5200, L501.9985, L501.9520, L501.2300, L500.4050, L100.0100 ####[facility] [address] [place], [address] ALT [Catalytic activity/Vol] 12 U/L Low 13-56 [facility] Comment on above: Performed By: #### L 501.6710, L501.5200, L501.9985, L501.9520, L501.2300, L500.4050, L100.0100 ####[facility] [address] [place], [address] AST [Catalytic activity/Vol] 12 U/L Low 15-37 [facility] Comment on above: Performed By: #### L 501.6710, L501.5200, L501.9985, L501.9520, L501.2300, L500.4050, L100.0100 ####[facility] [address] [place], [address] Bilirubin [Mass/Vol] 0.20 mg/dL Normal 0.20-1.00 [facility] Comment on above: Result Comment: For patients on eltrombopag therapy, use of Dimension Freeman TBIL is not recommended. Performed By: #### L 501.6710, L501.5200, L501.9985, L501.9520, L501.2300, L500.4050, L100.0100 ####[facility] [address] [place], [address] BUN/CRE 39.3 RATIO High 10-20 [facility] Comment on above: Performed By: #### L 501.6710, L501.5200, L501.9985, L501.9520, L501.2300, L500.4050, L100.0100 ####[facility] [address] [place], [address] CA,Total 9.9 mg/dL Normal 8.5-10.1 [facility] Comment on above: Performed By: #### L 501.6710, L501.5200, L501.9985, L501.9520, L501.2300, L500.4050, L100.0100 ####[facility] [address] [place], [address] Chloride [Moles/Vol] 95 mmol/L Low 98-107 [facility] Comment on above: Performed By: #### L 501.6710, L501.5200, L501.9985, L501.9520, L501.2300, L500.4050, L100.0100 ####[facility] [address] [place], [address] CO2 [Moles/Vol] 40.0 mmol/L High 21.0-32.0 [facility] Comment on above: Performed By: #### L 501.6710, L501.5200, L501.9985, L501.9520, L501.2300, L500.4050, L100.0100 ####[facility] [address] [place], [address] Creatinine [Mass/Vol] 0.48 mg/dL Low 0.55-1.02 [facility] Comment on above: Result Comment: The validity of the calculated GFR GFRAA in patients over70 years has not been determined. Clinical correlation isessential. Performed By: #### L 501.6710, L501.5200, L501.9985, L501.9520, L501.2300, L500.4050, L100.0100 ####[facility] [address] [place], [address] ECRCL 185.77 ml/min Normal [facility] Comment on above: Performed By: #### L 501.6710, L501.5200, L501.9985, L501.9520, L501.2300, L500.4050, L100.0100 ####[facility] [address] [place], [address] EST GFR - AA 167 mL/min Normal >60 [facility] Comment on above: Result Comment: Afri can Guamanian GFR Calc Performed By: #### L 501.6710, L501.5200, L501.9985, L501.9520, L501.2300, L500.4050, L100.0100 ####[facility] [address] [place], [address] GAP 2 Low 5-15 [facility] Comment on above: Performed By: #### L 501.6710, L501.5200, L501.9985, L501.9520, L501.2300, L500.4050, L100.0100 ####[facility] [address] [place], [address] GFR/1.73 sq M.predicted among non-blacks MDRD (S/P/Bld) [Vol rate/Area] 138 mL/min/{1.73_m2} Normal >60 [facility] Comment on above: Result Comment: Non- GFR Calc Performed By: #### L 501.6710, L501.5200, L501.9985, L501.9520, L501.2300, L500.4050, L100.0100 ####[facility] [address] [place], [address] Globulin (S) [Mass/Vol] 4.3 g/dL High 2.2-4.2 [facility] Comment on above: Performed By: #### L 501.6710, L501.5200, L501.9985, L501.9520, L501.2300, L500.4050, L100.0100 ####[facility] [address] [place], [address] Glucose [Mass/Vol] 138 mg/dL High 74-106 [facility] Comment on above: Result Comment: Fast ing Glucose result greater than or equal to 126 mg/dLsuggests DIABETES MELLITUS per A.D.A. criteria. Performed By: #### L 501.6710, L501.5200, L501.9985, L501.9520, L501.2300, L500.4050, L100.0100 ####[facility] [address] [place], [address] Potassium [Moles/Vol] 4.2 mmol/L Normal 3.5-5.1 [facility] Comment on above: Performed By: #### L 501.6710, L501.5200, L501.9985, L501.9520, L501.2300, L500.4050, L100.0100 ####[facility] [address] [place], [address] Sodium [Moles/Vol] 137 mmol/L Normal 136-145 [facility] Comment on above: Performed By: #### L 501.6710, L501.5200, L501.9985, L501.9520, L501.2300, L500.4050, L100.0100 ####[facility] [address] [place], [address] T PROT 6.6 g/dL Normal 6.4-8.2 [facility] Comment on above: Performed By: #### L 501.6710, L501.5200, L501.9985, L501.9520, L501.2300, L500.4050, L100.0100 ####[facility] [address] [place], [address] Urea nitrogen [Mass/Vol] 19 mg/dL High 7-18 [facility] Comment on above: Performed By: #### L 501.6710, L501.5200, L501.9985, L501.9520, L501.2300, L500.4050, L100.0100 ####[facility] [address] 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 YReason for Exam: exposure Performed By: #### L 3890.6005, L3890.6200, L3890.6300, L3890.6100, L3100.0460 ####[facility] [address] [place], [address] Hemoglobin A1con 11-24-2023 HbA1c (Bld) [Mass fraction] 5.5 % Normal 3.8-5.6 [facility] Comment on above: Result Comment: Norm al < 5.7 % Prediabetic 5.7 - 6.4 % Diabetic >or= 6.5 % Please note range changes. Performed By: #### L 501.6710, L501.5200, L501.9985, L501.9520, L501.2300, L500.4050, L100.0100 ####[facility] [address] [place], [address] Hepatitis B Surface Antibody on 11-24-2023 HEP B Surf Ab Non-Reactive Normal [facility] Comment on above: Order Comment: Has p t arrived? YReason for Exam: exposure Result Comment: Non Reactive: Inconsistent with immunity less than <10 mIU/mL Reactive: Consistent with immunity greater than or equal to 10 mIU/mL Performed By: #### L 3890.6005, L3890.6200, L3890.6300, L3890.6100, L3100.0460 ####[facility] [address] [place], [address] Hepatitis B Surface Antigeno n 11-24-2023 HEP B Surf Ag Non-Reactive Normal Nonreactive [facility] Comment on above: Order Comment: Has p t arrived? YReason for Exam: exposure Performed By: #### L 3890.6005, L3890.6200, L3890.6300, L3890.6100, L3100.0460 ####[facility] [address] [place], [address] Hepatitis C Antibodyon 11-23 Hepatitis C AB Non-Reactive Normal Nonreactive [facility] Comment on above: Order Comment: Has p t arrived? YReason for Exam: exposure Result Comment: Non Reactive: < 0.8 Equivocal: >/= 0.8 to < 1.0 Reactive: >/= 1.0The CDC requires that a reactive/equivocal HCV antibodyresult be sent out for confirmation. HCV Quant by PCRtesting. Performed By: #### L 3890.6005, L3890.6200, L3890.6300, L3890.6100, L3100.0460 ####[facility] [address] [place], [address] Legionella Antigen Urineon 0 11-24-2023 LEGU Normal [facility] Comment on above: Performed By: #### M 300.4500, M300.4600 ####[facility] [address] [place], [address] Magnesiumon 11-24-2023 Magnesium [Mass/Vol] 1.8 mg/dL Normal 1.6-2.6 [facility] Comment on above: Performed By: #### L 501.6710, L501.5200, L501.9985, L501.9520, L501.2300, L500.4050, L100.0100 ####[facility] [address] [place], [address] Phosphoruson 11-24-2023 Phosphate [Mass/Vol] 2.7 mg/dL Normal 2.5-4.9 [facility] Comment on above: Performed By: #### L 501.6710, L501.5200, L501.9985, L501.9520, L501.2300, L500.4050, L100.0100 ####[facility] [address] [place], [address] Procalcitoninon 11-24-2023 Procalcitonin < 0.04 Normal 0.00-0.09 [facility] Comment on above: Result Comment: A pr ocalcitonin (PCT) level above 2.0 ng/mL on the first day of ICU admission is associated with a high risk for progression to severe sepsis and/or septic shock. A PCT level below 0.5 ng/mL on the first day of ICU admission is associated with a low risk for progression to severe and/or septic shock. Note: Concentrations <0.5 ng/mL do not exclude an infection on account of localized infections (without systemic signs) which can be associated with such low concentrations, or a systemic infection in its initial stages (<6 hours). Furthermore, increased procalcitonin can occur without infection. PCT concentrations between 0.5 and 2.0 ng/mL should be interpreted taking into account the patient's history. It is recommended to retest PCT within 6-24 hours if any concentrations <2 ng/mL are obtained. Performed By: #### L 509.7000 ####[facility] [address] [place], [address] Strep pneumoniae Antig(UR,CS F)on 11-24-2023 STPAG Normal [facility] Comment on above: Performed By: #### M 300.4500, M300.4600 ####[facility] [address] [place], [address] Thyroid Stim Hormone (TSH)on 08-17-2024 TSH 0.149 uIU/mL Low 0.358-3.740 [facility] Comment on above: Performed By: #### L 501.6710, L501.5200, L501.9985, L501.9520, L501.2300, L500.4050, L100.0100 ####[facility] [address] [place], [address] Vancomycin, Trough Levelon 0 11-24-2023 VANCO, TROUGH 34.6 ug/mL High 5.0-15.0 [facility] Comment on above: Order Comment: Comme nts: Trough to be drawn 30 mins prior to scheduled [id number] Result Comment: VANC OMYCIN STANDARED DRUG THERAPY TROUGH LEVEL: 5.0 - 15.0 mg/LVANCOMYCIN HIGH INTENSITY THERAPY TROUGH LEVEL: 15.0 - 20.0 mg/LHigh Intensity therapy recommended for serious lifethreatening infections include:- Mrqjwffejo-Yofsgkaknmef-Ybuteksff (Ventilator/Healtcare Associated)-SepsisPLEASE CONTACT PHARMACY SERVICES (#0692) FOR INTERPRETATIONOF RESULTS. Performed By: #### L 501.8820 ####[facility] [address] [place], [address] 12 Lead EKGon 11-23-2023 12 Lead EKG Normal [facility] Blood Gases by [facility] 024 ROSA TEST N/A Normal [facility] Comment on above: Performed By: #### L 9000.0800 ####[facility] [address] [place], [address] Base excess Calc (Bld) [Moles/Vol] 14 mmol/L High -2 to +2 [facility] Comment on above: Performed By: #### L 9000.0800 ####[facility] [address] [place], [address] Blood Gas Type ART Normal [facility] Comment on above: Performed By: #### L 9000.0800 ####[facility] [address] [place], [address] CO2 [Moles/Vol] 44 mmol/L Normal [facility] Comment on above: Performed By: #### L 9000.0800 ####[facility] [address] [place], [address] FI02 50.0 Normal [facility] Comment on above: Performed By: #### L 9000.0800 ####[facility] [address] [place], [address] HCO3 (Bld) [Moles/Vol] 41.4 mmol/L High 22-26 [facility] Comment on above: Performed By: #### L 9000.0800 ####[facility] [address] [place], [address] Mode Not entered Normal [facility] Comment on above: Performed By: #### L 9000.0800 ####[facility] [address] [place], [address] O2 Delivery Dev BiPAP Normal [facility] Comment on above: Performed By: #### L 9000.0800 ####[facility] [address] [place], [address] pCO2 92.3 mmHg Invalid Interpretation Code 35-45 [facility] Comment on above: Performed By: #### L 9000.0800 ####[facility] [address] [place], [address] PEEP 10 Normal [facility] Comment on above: Performed By: #### L 9000.0800 ####[facility] [address] [place], [address] pH (Bld) 7.26 [pH] Low 7.35-7.45 [facility] Comment on above: Performed By: #### L 9000.0800 ####[facility] [address] [place], [address] PO2 89 mmHG Normal 75-100 [facility] Comment on above: Performed By: #### L 9000.0800 ####[facility] [address] [place], [address] Read Back By Yes [facility] Comment on above: Performed By: #### L 9000.0800 ####[facility] [address] [place], [address] Armas [facility] Comment on above: Performed By: #### L 9000.0800 ####[facility] [address] [place], [address] RR 12 [facility] Comment on above: Performed By: #### L 0.0800 ####[facility] [address] [place], [address] SITE L Radial Normal [facility] Comment on above: Performed By: #### L 0.0800 ####[facility] [address] [place], [address] SO2 94 Low 95-99 [facility] Comment on above: Performed By: #### L 0.0800 ####[facility] [address] [place], [address] Time Given 20:47:04 [facility] Comment on above: Performed By: #### L 9000.0800 ####[facility] [address] [place], [address] Vt 500.0 mL [facility] Comment on above: Performed By: #### L 9000.0800 ####[facility] [address] [place], [address] ROSA TEST Positive [facility] Comment on above: Performed By: #### L 9000.0800 ####[facility] [address] [place], [address] Base excess Calc (Bld) [Moles/Vol] 22 mmol/L High -2 to +2 [facility] Comment on above: Performed By: #### L 9000.0800 ####[facility] [address] [place], [address] Blood Gas Type ART Normal [facility] Comment on above: Performed By: #### L 0.0800 ####[facility] [address] [place], [address] FI02 5.0 Normal [facility] Comment on above: Performed By: #### L 0.0800 ####[facility] [address] [place], [address] HCO3 (Bld) [Moles/Vol] 48.8 mmol/L High 22-26 [facility] Comment on above: Performed By: #### L 9000.0800 ####[facility] [address] [place], [address] Mode Not entered Normal [facility] Comment on above: Performed By: #### L 9000.0800 ####[facility] [address] [place], [address] O2 Delivery Dev Cannula Normal [facility] Comment on above: Performed By: #### L 0.0800 ####[facility] [address] [place], [address] pCO2 111.4 mmHg Invalid Interpretation Code 35-45 [facility] Comment on above: Performed By: #### L 8999.0800 ####[facility] [address] [place], [address] pH (Bld) 7.25 [pH] Low 7.35-7.45 [facility] Comment on above: Performed By: #### L 0.0800 ####[facility] [address] [place], [address] PO2 75 mmHG Normal 75-100 [facility] Comment on above: Performed By: #### L 9000.0800 ####[facility] [address] [place], [address] Read Back By Yes Normal [facility] Comment on above: Performed By: #### L 0.0800 ####[facility] [address] [place], [address] Results To Pawel Normal [facility] Comment on above: Performed By: #### L 9000.0800 ####[facility] [address] [place], [address] SITE L Radial Normal [facility] Comment on above: Performed By: #### L 0.0800 ####[facility] [address] [place], [address] SO2 90 Low 95-99 [facility] Comment on above: Performed By: #### L 9000.0800 ####[facility] [address] [place], [address] Time Given 18:16:29 Normal [facility] Comment on above: Performed By: #### L 9000.0800 ####[facility] [address] [place], [address] TOTAL CO2 > 50 Normal [facility] Comment on above: Performed By: #### L 9000.0800 ####[facility] [address] [place], [address] CBC W/Diff, Automatedon 11-07 Absolute Lymph 0.87 X10 3/uL Normal 0.83-4.51 [facility] Comment on above: Performed By: #### L 100.0100, L300.4310, L503.6005, L500.4050, L300.3900 ####[facility] [address] [place], [address] Absolute Neut 6.2 X10 3/uL Normal 2.0-7.7 [facility] Comment on above: Performed By: #### L 100.0100, L300.4310, L503.6005, L500.4050, L300.3900 ####[facility] [address] [place], [address] Basophils/100 WBC (Bld) 0.3 % Normal 0-1 [facility] Comment on above: Performed By: #### L 100.0100, L300.4310, L503.6005, L500.4050, L300.3900 ####[facility] [address] [place], [address] Eosinophils/100 WBC (Bld) 0.3 % Normal 0-5 [facility] Comment on above: Performed By: #### L 100.0100, L300.4310, L503.6005, L500.4050, L300.3900 ####[facility] [address] [place], [address] Erythrocyte distribution width (RBC) [Ratio] 14.3 % Normal 11.6-14.6 [facility] Comment on above: Performed By: #### L 100.0100, L300.4310, L503.6005, L500.4050, L300.3900 ####[facility] [address] [place], [address] Hematocrit (Bld) [Volume fraction] 34.6 % Low 37-47 [facility] Comment on above: Performed By: #### L 100.0100, L300.4310, L503.6005, L500.4050, L300.3900 ####[facility] [address] [place], [address] Hemoglobin (Bld) [Mass/Vol] 9.7 g/dL Low 12.0-15.0 [facility] Comment on above: Performed By: #### L 100.0100, L300.4310, L503.6005, L500.4050, L300.3900 ####[facility] [address] [place], [address] IG% 1.700 High 0.0-0.9 [facility] Comment on above: Result Comment: IG% - Immature Granulocytes (promyelocytes, myelocytes andmetamyelocytes) > 1% indicates that a LEFT SHIFT is Present. Performed By: #### L 100.0100, L300.4310, L503.6005, L500.4050, L300.3900 ####[facility] [address] [place], [address] Lymphocytes/100 WBC (Bld) 11.3 % Low 19-41 [facility] Comment on above: Performed By: #### L 100.0100, L300.4310, L503.6005, L500.4050, L300.3900 ####[facility] [address] [place], [address] MCH (RBC) [Entitic mass] 24.6 pg Low 27.0-32.0 [facility] Comment on above: Performed By: #### L 100.0100, L300.4310, L503.6005, L500.4050, L300.3900 ####[facility] [address] [place], [address] MCHC (RBC) [Mass/Vol] 28.0 g/dL Low 32-36 [facility] Comment on above: Performed By: #### L 100.0100, L300.4310, L503.6005, L500.4050, L300.3900 ####[facility] [address] [place], [address] MCV (RBC) [Entitic vol] 87.8 fL Normal 81-99 [facility] Comment on above: Performed By: #### L 100.0100, L300.4310, L503.6005, L500.4050, L300.3900 ####[facility] [address] [place], [address] Monocytes/100 WBC (Bld) 6.6 % Normal 0-10 [facility] Comment on above: Performed By: #### L 100.0100, L300.4310, L503.6005, L500.4050, L300.3900 ####[facility] [address] [place], [address] Neutrophils/100 WBC (Bld) 79.8 % High 47-70 [facility] Comment on above: Performed By: #### L 100.0100, L300.4310, L503.6005, L500.4050, L300.3900 ####[facility] [address] [place], [address] Nucleated RBC (Bld) [#/Vol] 0 10*3/uL Normal 0-5 [facility] Comment on above: Performed By: #### L 100.0100, L300.4310, L503.6005, L500.4050, L300.3900 ####[facility] [address] [place], [address] Platelet mean volume (Bld) [Entitic vol] 13.0 fL High 6.2-12.0 [facility] Comment on above: Performed By: #### L 100.0100, L300.4310, L503.6005, L500.4050, L300.3900 ####[facility] [address] [place], [address] Platelets (Bld) [#/Vol] 218 10*3/uL Normal 150-450 [facility] Comment on above: Performed By: #### L 100.0100, L300.4310, L503.6005, L500.4050, L300.3900 ####[facility] [address] [place], [address] RBC (Bld) [#/Vol] 3.94 10*6/uL Low 4.2-5.4 [facility] Comment on above: Performed By: #### L 100.0100, L300.4310, L503.6005, L500.4050, L300.3900 ####[facility] [address] [place], [address] RDW SD 46.2 fl High 35.1-43.9 [facility] Comment on above: Performed By: #### L 100.0100, L300.4310, L503.6005, L500.4050, L300.3900 ####[facility] [address] [place], [address] WBC (Bld) [#/Vol] 7.7 10*3/uL Normal 4.4-11.0 [facility] Comment on above: Performed By: #### L 100.0100, L300.4310, L503.6005, L500.4050, L300.3900 ####[facility] [address] [place], [address] CTA Chest W/WO Contraston CTA Chest W/WO Contrast Normal [facility] Chest 1 View (Portable)on Chest 1 View (Portable) Normal [facility] Comprehensive Metabolic Prof ilon 11-23-2023 Albumin [Mass/Vol] 2.3 g/dL Low 3.2-5.0 [facility] Comment on above: Performed By: #### L 100.0100, L300.4310, L503.6005, L500.4050, L300.3900 ####[facility] [address] [place], [address] Albumin/Globulin [Mass ratio] 0.5 {ratio} Low 0.9-2.4 [facility] Comment on above: Performed By: #### L 100.0100, L300.4310, L503.6005, L500.4050, L300.3900 ####[facility] [address] [place], [address] ALK P 79 U/L Normal 45-117 [facility] Comment on above: Performed By: #### L 100.0100, L300.4310, L503.6005, L500.4050, L300.3900 ####[facility] [address] [place], [address] ALT [Catalytic activity/Vol] 13 U/L Normal 13-56 [facility] Comment on above: Performed By: #### L 100.0100, L300.4310, L503.6005, L500.4050, L300.3900 ####[facility] [address] [place], [address] AST [Catalytic activity/Vol] 10 U/L Low 15-37 [facility] Comment on above: Performed By: #### L 100.0100, L300.4310, L503.6005, L500.4050, L300.3900 ####[facility] [address] [place], [address] Bilirubin [Mass/Vol] 0.20 mg/dL Normal 0.20-1.00 [facility] Comment on above: Result Comment: For patients on eltrombopag therapy, use of Dimension Freeman TBIL is not recommended. Performed By: #### L 100.0100, L300.4310, L503.6005, L500.4050, L300.3900 ####[facility] [address] [place], [address] BUN/CRE 27.8 RATIO High 10-20 [facility] Comment on above: Performed By: #### L 100.0100, L300.4310, L503.6005, L500.4050, L300.3900 ####[facility] [address] [place], [address] CA,Total 9.9 mg/dL Normal 8.5-10.1 [facility] Comment on above: Performed By: #### L 100.0100, L300.4310, L503.6005, L500.4050, L300.3900 ####[facility] [address] [place], [address] Chloride [Moles/Vol] 98 mmol/L Normal 98-107 [facility] Comment on above: Performed By: #### L 100.0100, L300.4310, L503.6005, L500.4050, L300.3900 ####[facility] [address] [place], [address] CO2 [Moles/Vol] 42.0 mmol/L High 21.0-32.0 [facility] Comment on above: Performed By: #### L 100.0100, L300.4310, L503.6005, L500.4050, L300.3900 ####[facility] [address] [place], [address] Creatinine [Mass/Vol] 0.72 mg/dL Normal 0.55-1.02 [facility] Comment on above: Result Comment: The validity of the calculated GFR GFRAA in patients over70 years has not been determined. Clinical correlation isessential. Performed By: #### L 100.0100, L300.4310, L503.6005, L500.4050, L300.3900 ####[facility] [address] [place], [address] EST GFR - AA 106 mL/min Normal >60 [facility] Comment on above: Result Comment: Afri can Guamanian GFR Calc Performed By: #### L 100.0100, L300.4310, L503.6005, L500.4050, L300.3900 ####[facility] [address] [place], [address] GAP 1 Low 5-15 [facility] Comment on above: Performed By: #### L 100.0100, L300.4310, L503.6005, L500.4050, L300.3900 ####[facility] [address] [place], [address] GFR/1.73 sq M.predicted among non-blacks MDRD (S/P/Bld) [Vol rate/Area] 87 mL/min/{1.73_m2} Normal >60 [facility] Comment on above: Result Comment: Non- GFR Calc Performed By: #### L 100.0100, L300.4310, L503.6005, L500.4050, L300.3900 ####[facility] [address] [place], [address] Globulin (S) [Mass/Vol] 4.3 g/dL High 2.2-4.2 [facility] Comment on above: Performed By: #### L 100.0100, L300.4310, L503.6005, L500.4050, L300.3900 ####[facility] [address] [place], [address] Glucose [Mass/Vol] 191 mg/dL High 74-106 [facility] Comment on above: Result Comment: Fast ing Glucose result greater than or equal to 126 mg/dLsuggests DIABETES MELLITUS per A.D.A. criteria. Performed By: #### L 100.0100, L300.4310, L503.6005, L500.4050, L300.3900 ####[facility] [address] [place], [address] Potassium [Moles/Vol] 4.5 mmol/L Normal 3.5-5.1 [facility] Comment on above: Performed By: #### L 100.0100, L300.4310, L503.6005, L500.4050, L300.3900 ####[facility] [address] [place], [address] Sodium [Moles/Vol] 141 mmol/L Normal 136-145 [facility] Comment on above: Performed By: #### L 100.0100, L300.4310, L503.6005, L500.4050, L300.3900 ####[facility] [address] [place], [address] T PROT 6.6 g/dL Normal 6.4-8.2 [facility] Comment on above: Performed By: #### L 100.0100, L300.4310, L503.6005, L500.4050, L300.3900 ####[facility] [address] [place], [address] Urea nitrogen [Mass/Vol] 20 mg/dL High 7-18 [facility] Comment on above: Performed By: #### L 100.0100, L300.4310, L503.6005, L500.4050, L300.3900 ####[facility] [address] [place], [address] Emergency Department Summary on 11-23-2023 Emergency Department Summary Normal [facility] H AND P Exam - Hospitaliston 11-23-2023 H&P Exam - Hospitalist Normal [facility] Lactic Acidon 11-23-2023 Lactate [Moles/Vol] 1.5 mmol/L Normal 0.4-1.9 [facility] Comment on above: Order Comment: Y Performed By: #### L 100.0100, L300.4310, L503.6005, L500.4050, L300.3900 ####[facility] [address] [place], [address] M100.678on 11-23-2023 M100.678 Pending SARS-CoV-2 (COVID 19) A Positive A INFLUENZA A Negative INFLUENZA B Negative RSV PCR Negative SARS-CoV-2 (COVID 19) Normal [facility] Comment on above: Performed By: #### L 400.0001, M100.678 ####[facility] [address] [place], [address] Partial Thromboplast Timeon 11-23-2023 aPTT Coag (Bld) [Time] 28.6 s Normal 24.1-36.2 [facility] Comment on above: Performed By: #### L 100.0100, L300.4310, L503.6005, L500.4050, L300.3900 ####[facility] [address] [place], [address] Prothrombin Time w/INRon INR Coag (PPP) [Relative time] 1.0 {INR} Normal [facility] Comment on above: Performed By: #### L 100.0100, L300.4310, L503.6005, L500.4050, L300.3900 ####[facility] [address] [place], [address] PT Coag (PPP) [Time] 13.5 s Normal 11.7-14.9 [facility] Comment on above: Performed By: #### L 100.0100, L300.4310, L503.6005, L500.4050, L300.3900 ####[facility] [address] [place], [address] Urinalysis, Completeon 11-22 BACTERIA Normal None Seen [facility] Comment on above: Order Comment: HUMAIRA TER SPECIMEN Result Comment: Canc elled via OM: known resp source of infection Performed By: #### L 400.0001, .8 ####[facility] [address] [place], [address] BILIRUBIN URINE Normal Negative [facility] Comment on above: Order Comment: HUMAIRA TER SPECIMEN Result Comment: Canc elled via OM: known resp source of infection Performed By: #### L 400.0001, .8 ####[facility] [address] [place], [address] Clarity (U) Normal Clear [facility] Comment on above: Order Comment: HUMAIRA TER SPECIMEN Result Comment: Canc elled via OM: known resp source of infection Performed By: #### L 400.0001, 8 ####[facility] [address] [place], [address] Color (U) Normal Yellow [facility] Comment on above: Order Comment: HUMAIRA TER SPECIMEN Result Comment: Canc elled via OM: known resp source of infection Performed By: #### L 400.0001, 8 ####[facility] [address] [place], [address] EPI,SQUAMOUS Normal 5-10 [facility] Comment on above: Order Comment: HUMAIRA TER SPECIMEN Result Comment: Canc elled via OM: known resp source of infection Performed By: #### L 400.0001, ####[facility] [address] [place], [address] GLUCOSE, UR Normal Normal [facility] Comment on above: Order Comment: HUMAIRA TER SPECIMEN Result Comment: Canc elled via OM: known resp source of infection Performed By: #### L 400.0001, .8 ####[facility] [address] [place], [address] KETONE UR Normal Negative [facility] Comment on above: Order Comment: HUMAIRA TER SPECIMEN Result Comment: Canc elled via OM: known resp source of infection Performed By: #### L 400.0001, 8 ####[facility] [address] [place], [address] LEUK ESTERASE Normal Negative [facility] Comment on above: Order Comment: HUMAIRA TER SPECIMEN Result Comment: Canc elled via OM: known resp source of infection Performed By: #### L 400.0001, 8 ####[facility] [address] [place], [address] Mucus Ql (Urine sed) Normal [facility] Comment on above: Order Comment: HUMAIRA TER SPECIMEN Result Comment: Canc elled via OM: known resp source of infection Performed By: #### L 400.0001, 8 ####[facility] [address] [place], [address] Nitrite Ql (U) Normal Negative [facility] Comment on above: Order Comment: HUMAIRA TER SPECIMEN Result Comment: Canc elled via OM: known resp source of infection Performed By: #### L 400.0001, ####[facility] [address] [place], [address] OCCULT BLOOD-UR Normal Negative [facility] Comment on above: Order Comment: HUMAIRA TER SPECIMEN Result Comment: Canc elled via OM: known resp source of infection Performed By: #### L 400.0001, ####[facility] [address] [place], [address] pH UR Normal 5.0 - 8.0 [facility] Comment on above: Order Comment: HUMAIRA TER SPECIMEN Result Comment: Canc elled via OM: known resp source of infection Performed By: #### L 400.0001, 8 ####[facility] [address] [place], [address] PROT DIPSTX Normal Negative [facility] Comment on above: Order Comment: HUMAIRA TER SPECIMEN Result Comment: Canc elled via OM: known resp source of infection Performed By: #### L 400.0001, M1.8 ####[facility] [address] [place], [address] RBC Normal 0-5 [facility] Comment on above: Order Comment: HUMAIRA TER SPECIMEN Result Comment: Canc elled via OM: known resp source of infection Performed By: #### L 400.0001, .8 ####[facility] [address] [place], [address] SP.GR. DIPSTX Normal 1.002-1.030 [facility] Comment on above: Order Comment: HUMAIRA TER SPECIMEN Result Comment: Canc elled via OM: known resp source of infection Performed By: #### L 400.0001, 8 ####[facility] [address] [place], [address] UR Preservative Normal [facility] Comment on above: Order Comment: HUMAIRA TER SPECIMEN Result Comment: Canc elled via OM: known resp source of infection Performed By: #### L 400.0001, 8 ####[facility] [address] [place], [address] UROBILI Normal Normal [facility] Comment on above: Order Comment: HUMAIRA TER SPECIMEN Result Comment: Canc elled via OM: known resp source of infection Performed By: #### L 400.0001, 8 ####[facility] [address] [place], [address] WBC Normal 0-5 [facility] Comment on above: Order Comment: HUMAIRA TER SPECIMEN Result Comment: Canc elled via OM: known resp source of infection Performed By: #### L 400.0001, M1.678 ####[facility] [address] [place], [address] CBC W/Diff, Automatedon 08-0 -2023 Absolute Lymph 2.48 X10 3/uL Normal 0.83-4.51 [facility] Comment on above: Order Comment: 512-1 Performed By: #### L 100.0100 ####[facility] [address] [place], [address] Absolute Neut 5.2 X10 3/uL Normal 2.0-7.7 [facility] Comment on above: Order Comment: 512-1 Performed By: #### L 100.0100 ####[facility] [address] [place], [address] Basophils/100 WBC (Bld) 0.1 % Normal 0-1 [facility] Comment on above: Order Comment: 512-1 Performed By: #### L 100.0100 ####[facility] [address] [place], [address] Eosinophils/100 WBC (Bld) 1.8 % Normal 0-5 [facility] Comment on above: Order Comment: 512-1 Performed By: #### L 100.0100 ####[facility] [address] [place], [address] Erythrocyte distribution width (RBC) [Ratio] 13.9 % Normal 11.6-14.6 [facility] Comment on above: Order Comment: 512-1 Performed By: #### L 100.0100 ####[facility] [address] [place], [address] Hematocrit (Bld) [Volume fraction] 35.4 % Low 37-47 [facility] Comment on above: Order Comment: 512-1 Performed By: #### L 100.0100 ####[facility] [address] [place], [address] Hemoglobin (Bld) [Mass/Vol] 9.8 g/dL Low 12.0-15.0 [facility] Comment on above: Order Comment: 512-1 Performed By: #### L 100.0100 ####[facility] [address] [place], [address] IG% 1.000 High 0.0-0.9 [facility] Comment on above: Order Comment: 512-1 Result Comment: IG% - Immature Granulocytes (promyelocytes, myelocytes andmetamyelocytes) > 1% indicates that a LEFT SHIFT is Present. Performed By: #### L 100.0100 ####[facility] [address] [place], [address] Lymphocytes/100 WBC (Bld) 28.6 % Normal 19-41 [facility] Comment on above: Order Comment: 512-1 Performed By: #### L 100.0100 ####[facility] [address] [place], [address] MCH (RBC) [Entitic mass] 24.7 pg Low 27.0-32.0 [facility] Comment on above: Order Comment: 512-1 Performed By: #### L 100.0100 ####[facility] [address] [place], [address] MCHC (RBC) [Mass/Vol] 27.7 g/dL Low 32-36 [facility] Comment on above: Order Comment: 512-1 Performed By: #### L 100.0100 ####[facility] [address] [place], [address] MCV (RBC) [Entitic vol] 89.4 fL Normal 81-99 [facility] Comment on above: Order Comment: 512-1 Performed By: #### L 100.0100 ####[facility] [address] [place], [address] Monocytes/100 WBC (Bld) 8.9 % Normal 0-10 [facility] Comment on above: Order Comment: 512-1 Performed By: #### L 100.0100 ####[facility] [address] [place], [address] Neutrophils/100 WBC (Bld) 59.6 % Normal 47-70 [facility] Comment on above: Order Comment: 512-1 Performed By: #### L 100.0100 ####[facility] [address] [place], [address] Nucleated RBC (Bld) [#/Vol] 0 10*3/uL Normal 0-5 [facility] Comment on above: Order Comment: 512-1 Performed By: #### L 100.0100 ####[facility] [address] [place], [address] Platelet mean volume (Bld) [Entitic vol] 12.4 fL High 6.2-12.0 [facility] Comment on above: Order Comment: 512-1 Performed By: #### L 100.0100 ####[facility] [address] [place], [address] Platelets (Bld) [#/Vol] 237 10*3/uL Normal 150-450 [facility] Comment on above: Order Comment: 512-1 Performed By: #### L 100.0100 ####[facility] [address] [place], [address] RBC (Bld) [#/Vol] 3.96 10*6/uL Low 4.2-5.4 [facility] Comment on above: Order Comment: 512-1 Performed By: #### L 100.0100 ####[facility] [address] [place], [address] RDW SD 45.1 fl High 35.1-43.9 [facility] Comment on above: Order Comment: 512-1 Performed By: #### L 100.0100 ####[facility] [address] [place], [address] WBC (Bld) [#/Vol] 8.7 10*3/uL Normal 4.4-11.0 [facility] Comment on above: Order Comment: 512-1 Performed By: #### L 100.0100 ####[facility] [address] [place], [address] CBC W/Diff, Automatedon 07-2 Absolute Lymph 4.20 X10 3/uL Normal 0.83-4.51 [facility] Comment on above: Order Comment: 512-1 Performed By: #### L 100.0100, L500.4050 ####[facility] [address] [place], [address] Absolute Neut 7.4 X10 3/uL Normal 2.0-7.7 [facility] Comment on above: Order Comment: 512-1 Performed By: #### L 100.0100, L500.4050 ####[facility] [address] [place], [address] Basophils/100 WBC (Bld) 0.2 % Normal 0-1 [facility] Comment on above: Order Comment: 512-1 Performed By: #### L 100.0100, L500.4050 ####[facility] [address] [place], [address] Eosinophils/100 WBC (Bld) 1.2 % Normal 0-5 [facility] Comment on above: Order Comment: 512-1 Performed By: #### L 100.0100, L500.4050 ####[facility] [address] [place], [address] Erythrocyte distribution width (RBC) [Ratio] 14.4 % Normal 11.6-14.6 [facility] Comment on above: Order Comment: 512-1 Performed By: #### L 100.0100, L500.4050 ####[facility] [address] [place], [address] Hematocrit (Bld) [Volume fraction] 35.1 % Low 37-47 [facility] Comment on above: Order Comment: 512-1 Performed By: #### L 100.0100, L500.4050 ####[facility] [address] [place], [address] Hemoglobin (Bld) [Mass/Vol] 10.2 g/dL Low 12.0-15.0 [facility] Comment on above: Order Comment: 512-1 Performed By: #### L 100.0100, L500.4050 ####[facility] [address] [place], [address] IG% 1.200 High 0.0-0.9 [facility] Comment on above: Order Comment: 512-1 Result Comment: IG% - Immature Granulocytes (promyelocytes, myelocytes andmetamyelocytes) > 1% indicates that a LEFT SHIFT is Present. Performed By: #### L 100.0100, L500.4050 ####[facility] [address] [place], [address] Lymphocytes/100 WBC (Bld) 32.6 % Normal 19-41 [facility] Comment on above: Order Comment: 512-1 Performed By: #### L 100.0100, L500.4050 ####[facility] [address] [place], [address] MCH (RBC) [Entitic mass] 25.1 pg Low 27.0-32.0 [facility] Comment on above: Order Comment: 512-1 Performed By: #### L 100.0100, L500.4050 ####[facility] [address] [place], [address] MCHC (RBC) [Mass/Vol] 29.1 g/dL Low 32-36 [facility] Comment on above: Order Comment: 512-1 Performed By: #### L 100.0100, L500.4050 ####[facility] [address] [place], [address] MCV (RBC) [Entitic vol] 86.5 fL Normal 81-99 [facility] Comment on above: Order Comment: 512-1 Performed By: #### L 100.0100, L500.4050 ####[facility] [address] [place], [address] Monocytes/100 WBC (Bld) 7.7 % Normal 0-10 [facility] Comment on above: Order Comment: 512-1 Performed By: #### L 100.0100, L500.4050 ####[facility] [address] [place], [address] Neutrophils/100 WBC (Bld) 57.1 % Normal 47-70 [facility] Comment on above: Order Comment: 512-1 Performed By: #### L 100.0100, L500.4050 ####[facility] [address] [place], [address] Nucleated RBC (Bld) [#/Vol] 0 10*3/uL Normal 0-5 [facility] Comment on above: Order Comment: 512-1 Performed By: #### L 100.0100, L500.4050 ####[facility] [address] [place], [address] Platelet mean volume (Bld) [Entitic vol] 12.2 fL High 6.2-12.0 [facility] Comment on above: Order Comment: 512-1 Performed By: #### L 100.0100, L500.4050 ####[facility] [address] [place], [address] Platelets (Bld) [#/Vol] 250 10*3/uL Normal 150-450 [facility] Comment on above: Order Comment: 512-1 Performed By: #### L 100.0100, L500.4050 ####[facility] [address] [place], [address] RBC (Bld) [#/Vol] 4.06 10*6/uL Low 4.2-5.4 [facility] Comment on above: Order Comment: 512-1 Performed By: #### L 100.0100, L500.4050 ####[facility] [address] [place], [address] RDW SD 45.4 fl High 35.1-43.9 [facility] Comment on above: Order Comment: 512-1 Performed By: #### L 100.0100, L500.4050 ####[facility] [address] [place], [address] WBC (Bld) [#/Vol] 12.9 10*3/uL High 4.4-11.0 [facility] Comment on above: Order Comment: 512-1 Performed By: #### L 100.0100, L500.4050 ####[facility] [address] [place], [address] Comprehensive Metabolic Prof [facility] 11-05-2023 Albumin [Mass/Vol] 2.6 g/dL Low 3.2-5.0 [facility] Comment on above: Order Comment: 512-1 Performed By: #### L 100.0100, L500.4050 ####[facility] [address] [place], [address] Albumin/Globulin [Mass ratio] 0.7 {ratio} Low 0.9-2.4 [facility] Comment on above: Order Comment: 512-1 Performed By: #### L 100.0100, L500.4050 ####[facility] [address] [place], [address] ALK P 80 U/L Normal 45-117 [facility] Comment on above: Order Comment: 512-1 Performed By: #### L 100.0100, L500.4050 ####[facility] [address] [place], [address] ALT [Catalytic activity/Vol] 10 U/L Low 13-56 [facility] Comment on above: Order Comment: 512-1 Performed By: #### L 100.0100, L500.4050 ####[facility] [address] [place], [address] AST [Catalytic activity/Vol] 9 U/L Low 15-37 [facility] Comment on above: Order Comment: 512-1 Performed By: #### L 100.0100, L500.4050 ####[facility] [address] [place], [address] Bilirubin [Mass/Vol] 0.30 mg/dL Normal 0.20-1.00 [facility] Comment on above: Order Comment: 512-1 Result Comment: For patients on eltrombopag therapy, use of Dimension Freeman TBIL is not recommended. Performed By: #### L 100.0100, L500.4050 ####[facility] [address] [place], [address] BUN/CRE 28.5 RATIO High 10-20 [facility] Comment on above: Order Comment: 512-1 Performed By: #### L 100.0100, L500.4050 ####[facility] [address] [place], [address] CA,Total 10.0 mg/dL Normal 8.5-10.1 [facility] Comment on above: Order Comment: 512-1 Performed By: #### L 100.0100, L500.4050 ####[facility] [address] [place], [address] Chloride [Moles/Vol] 98 mmol/L Normal 98-107 [facility] Comment on above: Order Comment: 512-1 Performed By: #### L 100.0100, L500.4050 ####[facility] [address] [place], [address] CO2 [Moles/Vol] 35.0 mmol/L High 21.0-32.0 [facility] Comment on above: Order Comment: 512-1 Performed By: #### L 100.0100, L500.4050 ####[facility] [address] [place], [address] Creatinine [Mass/Vol] 0.67 mg/dL Normal 0.55-1.02 [facility] Comment on above: Order Comment: 512-1 Result Comment: The validity of the calculated GFR GFRAA in patients over70 years has not been determined. Clinical correlation isessential. Performed By: #### L 100.0100, L500.4050 ####[facility] [address] [place], [address] EST GFR - AA 116 mL/min Normal >60 [facility] Comment on above: Order Comment: 512-1 Result Comment: Afri can Guamanian GFR Calc Performed By: #### L 100.0100, L500.4050 ####[facility] [address] [place], [address] GAP 5 Normal 5-15 [facility] Comment on above: Order Comment: 512-1 Performed By: #### L 100.0100, L500.4050 ####[facility] [address] [place], [address] GFR/1.73 sq M.predicted among non-blacks MDRD (S/P/Bld) [Vol rate/Area] 95 mL/min/{1.73_m2} Normal >60 [facility] Comment on above: Order Comment: 512-1 Result Comment: Non- GFR Calc Performed By: #### L 100.0100, L500.4050 ####[facility] [address] [place], [address] Globulin (S) [Mass/Vol] 3.8 g/dL Normal 2.2-4.2 [facility] Comment on above: Order Comment: 512-1 Performed By: #### L 100.0100, L500.4050 ####[facility] [address] [place], [address] Glucose [Mass/Vol] 95 mg/dL Normal 74-106 [facility] Comment on above: Order Comment: 512-1 Performed By: #### L 100.0100, L500.4050 ####[facility] [address] [place], [address] Potassium [Moles/Vol] 3.5 mmol/L Normal 3.5-5.1 [facility] Comment on above: Order Comment: 512-1 Performed By: #### L 100.0100, L500.4050 ####[facility] [address] [place], [address] Sodium [Moles/Vol] 138 mmol/L Normal 136-145 [facility] Comment on above: Order Comment: 512-1 Performed By: #### L 100.0100, L500.4050 ####[facility] [address] [place], [address] T PROT 6.4 g/dL Normal 6.4-8.2 [facility] Comment on above: Order Comment: 512-1 Performed By: #### L 100.0100, L500.4050 ####[facility] [address] [place], [address] Urea nitrogen [Mass/Vol] 19 mg/dL High 7-18 [facility] Comment on above: Order Comment: 512-1 Performed By: #### L 100.0100, L500.4050 ####[facility] [address] [place], [address] Absolute lymphocyte countOrd ered By: Elizabeth Choe on 07-27-2023 Lymphocytes Auto (Unsp spec) [#/Vol] 2.52 10*3/uL 0.83-4.51 [facility] Assessment of wrist artery p atency prior to arterial punctureOrdered By: Ahsan Sousa on 07-27-2023 Arterial patency Wrist artery --pre arterial puncture Positive [facility] Automated lymphocyte count a s percentage of total leukocytesOrdered By: Eliazbeth Choe on 07-27-2023 Lymphocytes/100 WBC Auto (Unsp spec) 24.3 % 19-41 [facility] Base excessOrdered By: Lauren ejjacek Sousa on 07-27-2023 Base excess Calc (BldV) [Moles/Vol] 16 mmol/L -2-2 [facility] Basophil percentageOrdered B y: Ahsan Sousa on 07-27-2023 Basophil percentage 43 mmol/L [facility] Basophils/100 WBC (Bld) 95 % 95-99 [facility] Basophil percentageOrdered B y: Elizabeth Choe on 07-27-2023 Basophils/100 WBC (Bld) 0.2 % 0-1 [facility] Bilirubin [Mass/Vol] 0.30 mg/dL 0.20-1.00 [facility] Comment on above: For patients on eltr ombopag therapy, use of Dimension Freeman TBIL is not recommended. Chloride [Moles/Vol] 99 mmol/L 98-107 [facility] Eosinophils/100 WBC (Bld) 1.3 % 0-5 [facility] Glucose [Mass/Vol] 84 mg/dL 74-106 [facility] Hemoglobin (Bld) [Mass/Vol] 9.9 g/dL 12.0-15.0 [facility] Monocytes/100 WBC (Bld) 7.7 % 0-10 [facility] Neutrophils (Bld) [#/Vol] 6.9 10*3/uL 2.0-7.7 [facility] Neutrophils/100 WBC (Bld) 65.8 % 47-70 [facility] Potassium [Moles/Vol] 4.0 mmol/L 3.5-5.1 [facility] Protein [Mass/Vol] 6.3 g/dL 6.4-8.2 [facility] Sodium [Moles/Vol] 144 mmol/L 136-145 [facility] WBC (Bld) [#/Vol] 10.4 10*3/uL 4.4-11.0 [facility] Determination of erythrocyte mean corpuscular volume (MCV)Ordered By: Elizabeth Choe on 07-27-2023 MCV (RBC) [Entitic vol] 90.9 fL 81-99 [facility] Erythrocyte distribution wid th ratioOrdered By: Elizabeth Daija on 07-27-2023 Erythrocyte distribution width (RBC) [Ratio] 13.2 % 11.6-14.6 [facility] Erythrocyte distribution wid th standard deviationOrdered By: Elizabeth Daija on 07-27-2023 Erythrocyte distribution width (RBC) [Entitic vol] 44.1 fL 35.1-43.9 [facility] Hematocrit Auto (Bld) [Volum e fraction]Ordered By: [facility] Daija on 07-27-2023 Hematocrit (Bld) [Volume fraction] 34.1 % 37-47 [facility] Immature granulocytes/100 WB C Auto (Bld)Ordered By: [facility] Daija on 07-27-2023 Immature granulocytes/100 WBC (Bld) 0.700 % 0.0-0.9 [facility] Comment on above: IG% - Immature Granu locytes (promyelocytes, myelocytes and metamyelocytes) > 1% indicates that a LEFT SHIFT is Present. Laboratory - Chemistry and C hemistry - challengeOrdered By: [facility] Daija on 07-27-2023 Albumin/Globulin [Mass ratio] 0.7 {ratio} 0.9-2.4 [facility] ALP [Catalytic activity/Vol] 87 U/L 45-117 [facility] ALT [Catalytic activity/Vol] 8 U/L 13-56 [facility] CO2 [Moles/Vol] 43.0 mmol/L 21.0-32.0 [facility] Globulin (S) [Mass/Vol] 3.7 g/dL 2.2-4.2 [facility] Urea nitrogen/Creatinine [Mass ratio] 42.3 mg/mg 10-20 [facility] Laboratory - Hematology and Cell countsOrdered By: Elizabeth Daija on 07-27-2023 MCH (RBC) [Entitic mass] 26.4 pg 27.0-32.0 [facility] MCHC (RBC) [Mass/Vol] 29.0 g/dL 32-36 [facility] Nucleated RBC/100 WBC (Bld) [Ratio] 0 % 0-5 [facility] Platelet mean volume (Bld) [Entitic vol] 12.0 fL 6.2-12.0 [facility] Platelets (Bld) [#/Vol] 233 10*3/uL 150-450 [facility] Measurement, pHOrdered By: Park Sousa on 07-27-2023 pH (Unsp spec) 7.39 [pH] 7.35-7.45 [facility] No Panel InformationOrdered By: Ahsan Sousa on 07-27-2023 Arterial Blood Partial Pressure CO2 68.5 mmHg 35-45 [facility] Arterial Blood Partial Pressure O2 78 mmHG 75-100 [facility] Bld Gas Crit Called To/Read Back By Yes [facility] Blood Gas Bicarbonate Actual 41.3 mmol/L - [facility] Blood Gas Sample Site Not entered [facility] Blood Gas Specimen Type ART [facility] Blood Gas Vent Mode Not entered [facility] Oxygen Delivery Device Not entered [facility] Blood Gas Notified Time 11:13:43 [facility] Blood Gas Notified Whom yamilet [facility] Blood Gas Oxygen Percent 4.0 [facility] No Panel InformationOrdered By: Elizabeth Choe on 07-27-2023 Estimated Creatinine Clearance Calc 144.67 ml/min [facility] Estimated GFR (MDRD) Amer 127 mL/min >60 [facility] Comment on above: GFR Calc Estimated GFR (MDRD) Non-Af Amer 105 mL/min >60 [facility] Comment on above: Non- GFR Calc RBC Auto (Bld) [#/Vol]Ordere d By: Elizabeth Choe on 07-27-2023 RBC (Bld) [#/Vol] 3.75 10*6/uL 4.2-5.4 [facility] Serum or plasma calcium angela urement (mass/volume)Ordered By: Elizabeth Choe on 07-27-2023 Calcium [Mass/Vol] 10.4 mg/dL 8.5-10.1 [facility] Serum or plasma creatinine m easurement (mass/volume)Ordered By: Elizabeth Choe on 07-27-2023 Creatinine [Mass/Vol] 0.61 mg/dL 0.55-1.02 [facility] Comment on above: The validity of the calculated GFR & GFRAA in patients over 70 years has not been determined. Clinical correlation is essential. Serum or plasma urea nitroge n measurement (mass/volume)Ordered By: Elizabeth Choe on 07-27-2023 Urea nitrogen [Mass/Vol] 26 mg/dL 7-18 [facility] Thin prep Papanicolaou smear with manual screeningOrdered By: Elizabeth Choe on 07-27-2023 Thin prep Papanicolaou smear with manual screening 2.6 g/dL 3.2-5.0 [facility] Thin prep Papanicolaou smear with manual screening 9 U/L 15-37 [facility] Thin prep Papanicolaou smear with manual screening 2 5-15 [facility] Absolute lymphocyte countOrd ered By: Berenice Ramirez on 07-26-2023 Lymphocytes Auto (Unsp spec) [#/Vol] 1.63 10*3/uL 0.83-4.51 [facility] Assessment of wrist artery p atency prior to arterial punctureOrdered By: Berenice Ramirez on 07-26-2023 Arterial patency Wrist artery --pre arterial puncture Positive [facility] Automated lymphocyte count a s percentage of total leukocytesOrdered By: Berenice Ramirez on 07-26-2023 Lymphocytes/100 WBC Auto (Unsp spec) 14.3 % -41 [facility] Base excessOrdered By: Breanna Ramirez on 07-26-2023 Base excess Calc (BldV) [Moles/Vol] 20 mmol/L -2-2 [facility] Basophil percentageOrdered B y: Berenice Ramirez on 07-26-2023 Basophil percentage 49 mmol/L [facility] Basophils/100 WBC (Bld) 83 % 95-99 [facility] Basophils/100 WBC (Bld) 0.3 % 0-1 [facility] Chloride [Moles/Vol] 95 mmol/L 98-107 [facility] Eosinophils/100 WBC (Bld) 0.9 % 0-5 [facility] Glucose [Mass/Vol] 133 mg/dL 74-106 [facility] Comment on above: Fasting Glucose resu lt greater than or equal to 126 mg/dL suggests DIABETES MELLITUS per A.D.A. criteria. Hemoglobin (Bld) [Mass/Vol] 10.3 g/dL 12.0-15.0 [facility] Monocytes/100 WBC (Bld) 7.7 % 0-10 [facility] Neutrophils (Bld) [#/Vol] 8.7 10*3/uL 2.0-7.7 [facility] Neutrophils/100 WBC (Bld) 76.2 % 47-70 [facility] Potassium [Moles/Vol] 4.4 mmol/L 3.5-5.1 [facility] Sodium [Moles/Vol] 141 mmol/L 136-145 [facility] WBC (Bld) [#/Vol] 11.4 10*3/uL 4.4-11.0 [facility] Basophil percentageOrdered B y: Sepideh Rodriperlitapark on 07-26-2023 Glucose [Mass/Vol] 108 mg/dL 74-106 [facility] Comment on above: Fasting Glucose resu lt from 100 to 125 mg/dL suggests IMPAIRED HOMEOSTASIS per A.D.A. criteria. Potassium [Moles/Vol] 3.9 mmol/L 3.5-5.1 [facility] Sodium [Moles/Vol] 142 mmol/L 136-145 [facility] Determination of erythrocyte mean corpuscular volume (MCV)Ordered By: Berenice Ramirez on 07-26-2023 MCV (RBC) [Entitic vol] 92.9 fL 81-99 [facility] Erythrocyte distribution wid th ratioOrdered By: Berenice Ramirez on 07-26-2023 Erythrocyte distribution width (RBC) [Ratio] 13.2 % 11.6-14.6 [facility] Erythrocyte distribution wid th standard deviationOrdered By: Berenice Ramirez on 07-26-2023 Erythrocyte distribution width (RBC) [Entitic vol] 45.0 fL 35.1-43.9 [facility] Hematocrit Auto (Bld) [Volum e fraction]Ordered By: Berenice Ramirez on 07-26-2023 Hematocrit (Bld) [Volume fraction] 36.8 % 37-47 [facility] Immature granulocytes/100 WB C Auto (Bld)Ordered By: Berenice Ramirez on 07-26-2023 Immature granulocytes/100 WBC (Bld) 0.600 % 0.0-0.9 [facility] Comment on above: IG% - Immature Granu locytes (promyelocytes, myelocytes and metamyelocytes) > 1% indicates that a LEFT SHIFT is Present. Laboratory - Chemistry and C hemistry - challengeOrdered By: Berenice Ramirez on 07-26-2023 CO2 [Moles/Vol] mmol/L 21.0-32.0 [facility] Comment on above: Critical Result(s) C alled at: 13:23:38 07/26/2023 by: Joe Ballesteros. To Uma Brunner RN (ER)Results read back by same. Critical Result(s) C alled at: 10:51:35 07/26/2023 by: Joe Ballesteros. To Gilmer Hill RN (OLS.SW). Results read back by same. Natriuretic peptide B (Bld) [Mass/Vol] 26.1 pg/mL 0-100 [facility] Urea nitrogen/Creatinine [Mass ratio] 32.7 mg/mg 10-20 [facility] Laboratory - Chemistry and C hemistry - challengeOrdered By: Sepideh Patterson on 07-26-2023 Urea nitrogen/Creatinine [Mass ratio] 36.5 mg/mg 10- [facility] Laboratory - Hematology and Cell countsOrdered By: Berenice Ramirez on 07-26-2023 MCH (RBC) [Entitic mass] 26.0 pg 27.0-32.0 [facility] MCHC (RBC) [Mass/Vol] 28.0 g/dL 32-36 [facility] Nucleated RBC/100 WBC (Bld) [Ratio] 0 % 0-5 [facility] Platelet mean volume (Bld) [Entitic vol] 11.7 fL 6.2-12.0 [facility] Platelets (Bld) [#/Vol] 231 10*3/uL 150-450 [facility] Measurement, pHOrdered By: Caroline Ramirez on 07-26-2023 pH (Unsp spec) 7.30 [pH] 7.35-7.45 [facility] No Panel InformationOrdered By: Berenice Ramirez on 07-26-2023 Arterial Blood Partial Pressure CO2 93.3 mmHg 35-45 [facility] Arterial Blood Partial Pressure O2 57 mmHG 75-100 [facility] Bld Gas Crit Called To/Read Back By Yes [facility] Blood Gas Bicarbonate Actual 46.3 mmol/L 22- [facility] Blood Gas Liter Flow 3.0 [facility] Blood Gas Notified Whom DR. RAMIREZ [facility] Blood Gas Sample Site R RADIAL [facility] Blood Gas Specimen Type ART [facility] Oxygen Delivery Device CANNULA [facility] Estimated GFR (MDRD) Amer 114 mL/min >60 [facility] Comment on above: GFR Calc Estimated GFR (MDRD) Non-Af Amer 95 mL/min >60 [facility] Comment on above: Non- GFR Calc No Panel InformationOrdered By: Sepideh Patterson on 07-26-2023 Estimated GFR (MDRD) Amer 130 mL/min >60 [facility] Comment on above: GFR Calc Estimated GFR (MDRD) Non-Af Amer 107 mL/min >60 [facility] Comment on above: Non- GFR Calc RBC Auto (Bld) [#/Vol]Ordere d By: Berenice Ramirez on 07-26-2023 RBC (Bld) [#/Vol] 3.96 10*6/uL 4.2-5.4 [facility] Serum or plasma calcium angela urement (mass/volume)Ordered By: Berenice Ramirez on 07-26-2023 Calcium [Mass/Vol] 10.7 mg/dL 8.5-10.1 [facility] Serum or plasma creatinine m easurement (mass/volume)Ordered By: Berenice Ramirez on 07-26-2023 Creatinine [Mass/Vol] 0.67 mg/dL 0.55-1.02 [facility] Comment on above: The validity of the calculated GFR & GFRAA in patients over 70 years has not been determined. Clinical correlation is essential. Serum or plasma creatinine m easurement (mass/volume)Ordered By: Sepideh Patterson on 07-26-2023 Creatinine [Mass/Vol] 0.60 mg/dL 0.55-1.02 [facility] Comment on above: The validity of the calculated GFR & GFRAA in patients over 70 years has not been determined. Clinical correlation is essential. Serum or plasma urea nitroge n measurement (mass/volume)Ordered By: Berenice Ramirez on 07-26-2023 Urea nitrogen [Mass/Vol] 22 mg/dL 10-24 [facility] Serum procalcitonin measurem entOrdered By: Elizabeth Choe on 07-26-2023 Procalcitonin [Mass/Vol] ng/mL 0.00-0.09 [facility] Comment on above: A procalcitonin (PCT ) level above 2.0 ng/mL on the first day of ICU admission is associated with a high risk for progression to severe sepsis and/or septic shock. A PCT level below 0.5 ng/mL on the first day of ICU admission is associated with a low risk for progression to severe and/or septic shock. Note: Concentrations <0.5 ng/mL do not exclude an infection on account of localized infections (without systemic signs) which can be associated with such low concentrations, or a systemic infection in its initial stages (<6 hours). Furthermore, increased procalcitonin can occur without infection. PCT concentrations between 0.5 and 2.0 ng/mL should be interpreted taking into account the patient's history. It is recommended to retest PCT within 6-24 hours if any concentrations <2 ng/mL are obtained. Stool enteric pathogen panel by probe and target amplification methodOrdered By: Elizabeth Choe on 07-26-2023 Gastrointestinal pathogens panel DEMETRI+probe (Stl) [facility] Thin prep Papanicolaou smear with manual screeningOrdered By: Berenice Ramirez on 07-26-2023 Thin prep Papanicolaou smear with manual screening TNP [facility] Comment on above: Test not performed Basophil percentageOrdered B y: Sepideh Patterson on 07-17-2023 Chloride [Moles/Vol] 93 mmol/L 98-107 [facility] Glucose [Mass/Vol] 114 mg/dL 74-106 [facility] Comment on above: Fasting Glucose resu lt from 100 to 125 mg/dL suggests IMPAIRED HOMEOSTASIS per A.D.A. criteria. Hemoglobin (Bld) [Mass/Vol] 9.1 g/dL 12.0-15.0 [facility] Potassium [Moles/Vol] 3.4 mmol/L 3.5-5.1 [facility] Sodium [Moles/Vol] 138 mmol/L 136-145 [facility] WBC (Bld) [#/Vol] 8.9 10*3/uL 4.4-11.0 [facility] Determination of erythrocyte mean corpuscular volume (MCV)Ordered By: Sepideh Patterson on 07-17-2023 MCV (RBC) [Entitic vol] 90.6 fL 81-99 [facility] Erythrocyte distribution wid th ratioOrdered By: Sepideh Patterson on 07-17-2023 Erythrocyte distribution width (RBC) [Ratio] 13.8 % 11.6-14.6 [facility] Erythrocyte distribution wid th standard deviationOrdered By: Sepideh Patterson on 07-17-2023 Erythrocyte distribution width (RBC) [Entitic vol] 45.5 fL 35.1-43.9 [facility] Hematocrit Auto (Bld) [Volum e fraction]Ordered By: Sepideh Patterson on 07-17-2023 Hematocrit (Bld) [Volume fraction] 31.7 % 37-47 [facility] Laboratory - Chemistry and C hemistry - challengeOrdered By: Sepideh Patterson on 07-17-2023 CO2 [Moles/Vol] 42.0 mmol/L 21.0-32.0 [facility] Urea nitrogen/Creatinine [Mass ratio] 25.7 mg/mg 10-20 [facility] Laboratory - Hematology and Cell countsOrdered By: Sepideh Patterson on 07-17-2023 MCH (RBC) [Entitic mass] 26.0 pg 27.0-32.0 [facility] MCHC (RBC) [Mass/Vol] 28.7 g/dL 32-36 [facility] Platelet mean volume (Bld) [Entitic vol] 11.4 fL 6.2-12.0 [facility] Platelets (Bld) [#/Vol] 216 10*3/uL 150-450 [facility] No Panel InformationOrdered By: Sepideh Patterson on 07-17-2023 Estimated GFR (MDRD) Amer 91 mL/min >60 [facility] Comment on above: GFR Calc Estimated GFR (MDRD) Non-Af Amer 76 mL/min >60 [facility] Comment on above: Non- GFR Calc RBC Auto (Bld) [#/Vol]Ordere d By: Sepideh Patterson on 07-17-2023 RBC (Bld) [#/Vol] 3.50 10*6/uL 4.2-5.4 [facility] Serum or plasma calcium angela urement (mass/volume)Ordered By: Sepideh Patterson on 07-17-2023 Calcium [Mass/Vol] 10.1 mg/dL 8.5-10.1 [facility] Serum or plasma creatinine m easurement (mass/volume)Ordered By: Sepideh Pattreson on 07-17-2023 Creatinine [Mass/Vol] 0.82 mg/dL 0.55-1.02 [facility] Comment on above: The validity of the calculated GFR & GFRAA in patients over 70 years has not been determined. Clinical correlation is essential. Serum or plasma urea nitroge n measurement (mass/volume)Ordered By: Sepideh Patterson on 07-17-2023 Urea nitrogen [Mass/Vol] 21 mg/dL 7-18 [facility] Thin prep Papanicolaou smear with manual screeningOrdered By: Sepideh aPtterson on 07-17-2023 Thin prep Papanicolaou smear with manual screening 3 5-15 [facility] Basophil percentageOrdered B y: Sepideh Patterson on 05-01-2023 Chloride [Moles/Vol] 96 mmol/L 98-107 [facility] Glucose [Mass/Vol] 110 mg/dL 74-106 [facility] Comment on above: Fasting Glucose resu lt from 100 to 125 mg/dL suggests IMPAIRED HOMEOSTASIS per A.D.A. criteria. Hemoglobin (Bld) [Mass/Vol] 9.9 g/dL 12.0-15.0 [facility] Potassium [Moles/Vol] 4.3 mmol/L 3.5-5.1 [facility] Sodium [Moles/Vol] 139 mmol/L 136-145 [facility] WBC (Bld) [#/Vol] 9.0 10*3/uL 4.4-11.0 [facility] Determination of erythrocyte mean corpuscular volume (MCV)Ordered By: Sepideh Patterson on 05-01-2023 MCV (RBC) [Entitic vol] 95.1 fL 81-99 [facility] Erythrocyte distribution wid th ratioOrdered By: Sepideh Patterson on 05-01-2023 Erythrocyte distribution width (RBC) [Ratio] 13.8 % 11.6-14.6 [facility] Erythrocyte distribution wid th standard deviationOrdered By: Sepideh Patterson on 05-01-2023 Erythrocyte distribution width (RBC) [Entitic vol] 48.6 fL 35.1-43.9 [facility] Hematocrit Auto (Bld) [Volum e fraction]Ordered By: Sepideh Patterson on 05-01-2023 Hematocrit (Bld) [Volume fraction] 35.0 % 37-47 [facility] Laboratory - Chemistry and C hemistry - challengeOrdered By: Sepideh Patterson on 05-01-2023 CO2 [Moles/Vol] 40.0 mmol/L 21.0-32.0 [facility] Magnesium [Mass/Vol] 2.0 mg/dL 1.6-2.6 [facility] Urea nitrogen/Creatinine [Mass ratio] 20.6 mg/mg 10-20 [facility] Laboratory - Hematology and Cell countsOrdered By: Sepideh Patterson on 05-01-2023 MCH (RBC) [Entitic mass] 26.9 pg 27.0-32.0 [facility] MCHC (RBC) [Mass/Vol] 28.3 g/dL 32-36 [facility] Platelets (Bld) [#/Vol] 226 10*3/uL 150-450 [facility] No Panel InformationOrdered By: Sepideh Patterson on 05-01-2023 Estimated GFR (MDRD) Amer 80 mL/min >60 [facility] Comment on above: GFR Calc Estimated GFR (MDRD) Non-Af Amer 66 mL/min >60 [facility] Comment on above: Non- GFR Calc Platelet mean volume Rajan-Ec ker (Bld) [Entitic vol]Ordered By: Sepideh Patterson on 05-01-2023 Platelet mean volume (Bld) [Entitic vol] 12.2 fL 6.2-12.0 [facility] RBC Auto (Bld) [#/Vol]Ordere d By: Sepideh Patterson on 05-01-2023 RBC (Bld) [#/Vol] 3.68 10*6/uL 4.2-5.4 [facility] Serum or plasma calcium angela urement (mass/volume)Ordered By: Sepideh Patterson on 05-01-2023 Calcium [Mass/Vol] 10.1 mg/dL 8.5-10.1 [facility] Serum or plasma creatinine m easurement (mass/volume)Ordered By: Sepideh Patterson on 05-01-2023 Creatinine [Mass/Vol] 0.92 mg/dL 0.55-1.02 [facility] Comment on above: The validity of the calculated GFR & GFRAA in patients over 70 years has not been determined. Clinical correlation is essential. Serum or plasma urea nitroge n measurement (mass/volume)Ordered By: Sepideh Patterson on 05-01-2023 Urea nitrogen [Mass/Vol] 19 mg/dL 7-18 [facility] Thin prep Papanicolaou smear with manual screeningOrdered By: Sepidehqian Patterson on 05-01-2023 Thin prep Papanicolaou smear with manual screening 3 5-15 [facility] Basophil percentageOrdered B y: Sepideh Patterson on 04-24-2023 Chloride [Moles/Vol] 98 mmol/L 98-107 [facility] Glucose [Mass/Vol] 93 mg/dL 74-106 [facility] Hemoglobin (Bld) [Mass/Vol] 9.5 g/dL 12.0-15.0 [facility] Potassium [Moles/Vol] 3.2 mmol/L 3.5-5.1 [facility] Sodium [Moles/Vol] 146 mmol/L 136-145 [facility] WBC (Bld) [#/Vol] 9.7 10*3/uL 4.4-11.0 [facility] Determination of erythrocyte mean corpuscular volume (MCV)Ordered By: Sepideh Patterson on 04-24-2023 MCV (RBC) [Entitic vol] 97.7 fL 81-99 [facility] Erythrocyte distribution wid th ratioOrdered By: Sepideh Patterson on 04-24-2023 Erythrocyte distribution width (RBC) [Ratio] 13.6 % 11.6-14.6 [facility] Erythrocyte distribution wid th standard deviationOrdered By: Sepideh Patterson on 04-24-2023 Erythrocyte distribution width (RBC) [Entitic vol] 48.7 fL 35.1-43.9 [facility] Hematocrit Auto (Bld) [Volum e fraction]Ordered By: Sepideh Patterson on 04-24-2023 Hematocrit (Bld) [Volume fraction] 34.3 % 37-47 [facility] Laboratory - Chemistry and C hemistry - challengeOrdered By: Sepideh Patterson on 04-24-2023 CO2 [Moles/Vol] 45.0 mmol/L 21.0-32.0 [facility] Magnesium [Mass/Vol] 1.2 mg/dL 1.6-2.6 [facility] Urea nitrogen/Creatinine [Mass ratio] 16.3 mg/mg 10-20 [facility] Laboratory - Hematology and Cell countsOrdered By: Sepideh Patterson on 04-24-2023 MCH (RBC) [Entitic mass] 27.1 pg 27.0-32.0 [facility] MCHC (RBC) [Mass/Vol] 27.7 g/dL 32-36 [facility] Platelets (Bld) [#/Vol] 157 10*3/uL 150-450 [facility] No Panel InformationOrdered By: Sepideh Patterson on 04-24-2023 Estimated GFR (MDRD) Amer 143 mL/min >60 [facility] Comment on above: GFR Calc Estimated GFR (MDRD) Non-Af Amer 119 mL/min >60 [facility] Comment on above: Non- GFR Calc Platelet mean volume Rajan-Ec ker (Bld) [Entitic vol]Ordered By: Sepideh Patterson on 04-24-2023 Platelet mean volume (Bld) [Entitic vol] 11.8 fL 6.2-12.0 [facility] RBC Auto (Bld) [#/Vol]Ordere d By: Sepideh Patterson on 04-24-2023 RBC (Bld) [#/Vol] 3.51 10*6/uL 4.2-5.4 [facility] Serum or plasma calcium angela urement (mass/volume)Ordered By: Sepideh Patterson on 04-24-2023 Calcium [Mass/Vol] 8.2 mg/dL 8.5-10.1 [facility] Serum or plasma creatinine m easurement (mass/volume)Ordered By: Sepideh Patterson on 04-24-2023 Creatinine [Mass/Vol] 0.55 mg/dL 0.55-1.02 [facility] Comment on above: The validity of the calculated GFR & GFRAA in patients over 70 years has not been determined. Clinical correlation is essential. Serum or plasma urea nitroge n measurement (mass/volume)Ordered By: Sepideh Patterson on 04-24-2023 Urea nitrogen [Mass/Vol] 9 mg/dL 7-18 [facility] Thin prep Papanicolaou smear with manual screeningOrdered By: Sepideh Patterson on 04-24-2023 Thin prep Papanicolaou smear with manual screening 3 5-15 [facility] Absolute lymphocyte countOrd ered By: Leanna Pascual on 04-20-2023 Lymphocytes Auto (Unsp spec) [#/Vol] 1.10 10*3/uL 0.83-4.51 [facility] Basophil percentageOrdered B y: Leanna Pascual on 04-20-2023 Basophils/100 WBC (Bld) 0.4 % 0-1 [facility] Chloride [Moles/Vol] 103 mmol/L 98-107 [facility] Eosinophils/100 WBC (Bld) 0.0 % 0-5 [facility] Glucose [Mass/Vol] 88 mg/dL 74-106 [facility] Neutrophils (Bld) [#/Vol] 4.7 10*3/uL 2.0-7.7 [facility] Neutrophils/100 WBC (Bld) 69.7 % 47-70 [facility] Potassium [Moles/Vol] 4.1 mmol/L 3.5-5.1 [facility] Sodium [Moles/Vol] 142 mmol/L 136-145 [facility] WBC (Bld) [#/Vol] 6.7 10*3/uL 4.4-11.0 [facility] Blood erythrocytes count (nu mber/volume)Ordered By: Leanna Pascual on 04-20-2023 RBC (Bld) [#/Vol] 3.50 10*6/uL 4.2-5.4 [facility] Blood hemoglobin measurement (mass/volume)Ordered By: Leanna Pascual on 04-20-2023 Hemoglobin (Bld) [Mass/Vol] 9.4 g/dL 12.0-15.0 [facility] Blood lymphocytes/100 leukoc ytesOrdered By: Leanna Pascual on 04-20-2023 Lymphocytes/100 WBC (Bld) 16.4 % 19-41 [facility] Blood monocytes/100 leukocyt esOrdered By: Leanna Pascual on 04-20-2023 Monocytes/100 WBC (Bld) 10.1 % 0-10 [facility] Blood platelet mean volumeOr dered By: Leanna Pascual on 04-20-2023 Platelet mean volume (Bld) [Entitic vol] 10.7 fL 6.2-12.0 [facility] Determination of erythrocyte mean corpuscular volume (MCV)Ordered By: Leanna Pascual on 04-20-2023 MCV (RBC) [Entitic vol] 94.0 fL 81-99 [facility] Hematocrit Auto (Bld) [Volum e fraction]Ordered By: Leanna Pascual on 04-20-2023 Hematocrit (Bld) [Volume fraction] 32.9 % 37-47 [facility] Laboratory - Chemistry and C hemistry - challengeOrdered By: Leanna Pascual on 04-20-2023 CO2 [Moles/Vol] 35.0 mmol/L 21.0-32.0 [facility] Urea nitrogen/Creatinine [Mass ratio] 23.3 mg/mg 10-20 [facility] Laboratory - Hematology and Cell countsOrdered By: Leanna Pascual on 04-20-2023 Erythrocyte distribution width (RBC) [Entitic vol] 45.7 fL 35.1-43.9 [facility] Erythrocyte distribution width (RBC) [Ratio] 13.4 % 11.6-14.6 [facility] Immature granulocytes/100 WBC (Bld) 3.400 % 0.0-0.9 [facility] Comment on above: IG% - Immature Granu locytes (promyelocytes, myelocytes and metamyelocytes) > 1% indicates that a LEFT SHIFT is Present. MCH (RBC) [Entitic mass] 26.9 pg 27.0-32.0 [facility] Nucleated RBC/100 WBC (Bld) [Ratio] 0 % 0-5 [facility] MCHC Auto (RBC) [Mass/Vol]Or dered By: Leanna Pascual on 04-20-2023 MCHC (RBC) [Mass/Vol] 28.6 g/dL 32-36 [facility] No Panel InformationOrdered By: Leanna Pascual on 04-20-2023 Estimated Creatinine Clearance Calc 64.10 ml/min [facility] Estimated GFR (MDRD) Amer 47 mL/min >60 [facility] Comment on above: GFR Calc Estimated GFR (MDRD) Non-Af Amer 39 mL/min >60 [facility] Comment on above: Non- GFR Calc Platelets bldOrdered By: Vidal Pascual on 04-20-2023 Platelets (Bld) [#/Vol] 276 10*3/uL 150-450 [facility] Serum or plasma calcium angela urement (mass/volume)Ordered By: Leanna Pascual on 04-20-2023 Calcium [Mass/Vol] 9.2 mg/dL 8.5-10.1 [facility] Serum or plasma creatinine m easurement (mass/volume)Ordered By: Leanna Pascual on 04-20-2023 Creatinine [Mass/Vol] 1.46 mg/dL 0.55-1.02 [facility] Comment on above: The validity of the calculated GFR & GFRAA in patients over 70 years has not been determined. Clinical correlation is essential. Serum or plasma urea nitroge n measurement (mass/volume)Ordered By: Leanna Pascual on 04-20-2023 Urea nitrogen [Mass/Vol] 34 mg/dL 7-18 [facility] Thin prep Papanicolaou smear with manual screeningOrdered By: Leanna Pascual on 04-20-2023 Thin prep Papanicolaou smear with manual screening 4 5-15 [facility] Basophil percentageOrdered B y: Leanna Pascual on 04-18-2023 Basophil percentage 5.7 mg/dL 2.5-4.9 [facility] Laboratory - Chemistry and C hemistry - challengeOrdered By: Leanna Pascual on 04-18-2023 Magnesium [Mass/Vol] 1.8 mg/dL 1.6-2.6 [facility] Basophil percentageOrdered B y: Daija on 04-17-2023 Bilirubin [Mass/Vol] 0.20 mg/dL 0.20-1.00 [facility] Comment on above: For patients on eltr ombopag therapy, use of Dimension Freeman TBIL is not recommended. Protein [Mass/Vol] 6.8 g/dL 6.4-8.2 [facility] Blood band neutrophil count as percentage of total leukocytesOrdered By: Elizabeth Daija on 04-17-2023 Band form neutrophils/100 WBC (Bld) 1 % 0-5 [facility] Blood eosinophils/100 leukoc ytesOrdered By: White on 04-17-2023 Eosinophils/100 WBC (Bld) 1 % 0- [facility] Blood lymphocytes/100 leukoc ytesOrdered By: White on 04-17-2023 Lymphocytes/100 WBC (Bld) 8 % 19-41 [facility] Blood platelet adequacy dete ction by light microscopyOrdered By: White on 04-17-2023 Platelets LM Ql (Bld) ADEQUATE ADEQ [facility] Blood segmented neutrophils/ 100 leukocytesOrdered By: White on 04-17-2023 Segmented neutrophils/100 WBC (Bld) 87 % 47-70 [facility] Laboratory - Chemistry and C hemistry - challengeOrdered By: Elizabeth Daija on 04-17-2023 ALP [Catalytic activity/Vol] 89 U/L 45-117 [facility] ALT [Catalytic activity/Vol] 14 U/L 13-56 [facility] Globulin (S) [Mass/Vol] 4.3 g/dL 2.2-4.2 [facility] Laboratory - Hematology and Cell countsOrdered By: Elizabeth Daija on 04-17-2023 Myelocytes/100 WBC (Bld) 3 % 0-0 [facility] RBC morphologyOrdered By: Lindsey earnestinesherrie Choe on 04-17-2023 RBC morphology finding Nom (Bld) NORM C+C NORMAL NORM C&C [facility] Review by pathologistOrdered By: Elizabeth Choe on 04-17-2023 Pathologist review Jean Carlos (Unsp spec) [Interp] Reviewed [facility] Comment on above: Previous reported re sult: Mya jordan Edited by: RGOGREG on 04/18/23:141Neutrophilic left shift.Normocytic anemia.Clinical correlation necessary.Jean Rubin M.D. 04/18/23 AMENDED REPORT 04/18/23 1417 PATH REV previously reported as: Mya jordan Serum or plasma albumin angela urement (mass/volume)Ordered By: Elizaebth Choe on 04-17-2023 Albumin [Mass/Vol] 2.5 g/dL 3.2-5.0 [facility] Serum or plasma albumin/glob ulin mass ratioOrdered By: Elizabeth Choe on 04-17-2023 Albumin/Globulin [Mass ratio] 0.6 {ratio} 0.9-2.4 [facility] Thin prep Papanicolaou smear with manual screeningOrdered By: Elizabeth Choe on 04-17-2023 Thin prep Papanicolaou smear with manual screening 15 U/L 15-37 [facility] Total cell countOrdered By: Elizabeth Choe on 04-17-2023 Cells counted Molgen (Bld/Tiss) [#] 100 MANUAL DIFF [facility] Absolute lymphocyte countOrd ered By: Anatoly Morton on 04-16-2023 Lymphocytes Auto (Unsp spec) [#/Vol] 1.80 10*3/uL 0.83-4.51 [facility] Basophil percentageOrdered B y: Anatoly Morton on 04-16-2023 Basophil percentage 10-25 SEEN /hpf 0-5 [facility] Lactate [Moles/Vol] 0.8 mmol/L 0.4-2.0 [facility] Basophils/100 WBC (Bld) 0.5 % 0-1 [facility] Bilirubin [Mass/Vol] 0.20 mg/dL 0.20-1.00 [facility] Comment on above: For patients on eltr ombopag therapy, use of Dimension Freeman TBIL is not recommended. Chloride [Moles/Vol] 94 mmol/L 98-107 [facility] Eosinophils/100 WBC (Bld) 0.8 % 0-5 [facility] Glucose [Mass/Vol] 133 mg/dL 74-106 [facility] Comment on above: Fasting Glucose resu lt greater than or equal to 126 mg/dL suggests DIABETES MELLITUS per A.D.A. criteria. Neutrophils (Bld) [#/Vol] 9.5 10*3/uL 2.0-7.7 [facility] Neutrophils/100 WBC (Bld) 72.5 % 47-70 [facility] Potassium [Moles/Vol] 4.7 mmol/L 3.5-5.1 [facility] Protein [Mass/Vol] 6.8 g/dL 6.4-8.2 [facility] Sodium [Moles/Vol] 136 mmol/L 136-145 [facility] WBC (Bld) [#/Vol] 13.1 10*3/uL 4.4-11.0 [facility] Bilirubin Test strip Ql (U)O rdered By: Anatoly Morton on 04-16-2023 Bilirubin Ql (U) 1 mg/dL Negative [facility] Comment on above: COLOR OF URINE MAY A FFECT DIPSTICK RESULTS. Blood erythrocytes count (nu mber/volume)Ordered By: Anatoly Morton on 04-16-2023 RBC (Bld) [#/Vol] 3.74 10*6/uL 4.2-5.4 [facility] Blood hemoglobin measurement (mass/volume)Ordered By: Anatoly Morton on 04-16-2023 Hemoglobin (Bld) [Mass/Vol] 10.1 g/dL 12.0-15.0 [facility] Blood lymphocytes/100 leukoc ytesOrdered By: Anatoly Morton on 04-16-2023 Lymphocytes/100 WBC (Bld) 13.8 % 19-41 [facility] Blood monocytes/100 leukocyt esOrdered By: Anatoly Morton on 04-16-2023 Monocytes/100 WBC (Bld) 8.3 % 0-10 [facility] Blood platelet mean volumeOr dered By: Anatoly Morton on 04-16-2023 Platelet mean volume (Bld) [Entitic vol] 11.1 fL 6.2-12.0 [facility] Culture, urineOrdered By: Gold Morton on 04-16-2023 Bacteria identified Cx Nom (U) Presumptive E. coli [facility] Bacteria identified Cx Nom (U) Presumptive E. coli#2 [facility] Bacteria identified Cx Nom (U) Lactobacillus gasseri [facility] Bacteria identified Cx Nom (U) Staphylococcus haemolyticus [facility] Bacteria identified Cx Nom (U) Enterococcus faecalis [facility] Bacteria identified Cx Nom (U) Presumptive E. coli [facility] Bacteria identified Cx Nom (U) Presumptive E. coli#2 [facility] Bacteria identified Cx Nom (U) Lactobacillus gasseri [facility] Bacteria identified Cx Nom (U) Staphylococcus haemolyticus [facility] Bacteria identified Cx Nom (U) Enterococcus faecalis [facility] Determination of erythrocyte mean corpuscular volume (MCV)Ordered By: Anatoly Morton on 04-16-2023 MCV (RBC) [Entitic vol] 94.9 fL 81-99 [facility] HCO3 (BldA) [Moles/Vol]Order ed By: Anatoly Morton on 04-16-2023 HCO3 (Bld) [Moles/Vol] 33 mmol/L 22-26 [facility] Hematocrit Auto (Bld) [Volum e fraction]Ordered By: Anatoly Morton on 04-16-2023 Hematocrit (Bld) [Volume fraction] 35.5 % 37-47 [facility] Hyaline casts LM.LPF (Urine sed) [#/Area]Ordered By: Anatoly Morton on 04-16-2023 Hyaline casts (Urine sed) [#/Area] 0 /[LPF] 0-5 [facility] Ketones Test strip Ql (U)Ord ered By: Anatoly Morton on 04-16-2023 Ketones Ql (U) 5 mg/dl Negative [facility] Laboratory - Chemistry and C hemistry - challengeOrdered By: Anatoly Morton on 04-16-2023 CO2 [Moles/Vol] 35 mmol/L 23-33 [facility] ALP [Catalytic activity/Vol] 86 U/L 45-117 [facility] ALT [Catalytic activity/Vol] 14 U/L 13-56 [facility] CO2 [Moles/Vol] 37.0 mmol/L 21.0-32.0 [facility] Globulin (S) [Mass/Vol] 4.3 g/dL 2.2-4.2 [facility] Urea nitrogen/Creatinine [Mass ratio] 6.5 mg/mg 10-20 [facility] Laboratory - Hematology and Cell countsOrdered By: Anatoly Morton on 04-16-2023 Erythrocyte distribution width (RBC) [Entitic vol] 48.2 fL 35.1-43.9 [facility] Erythrocyte distribution width (RBC) [Ratio] 14.1 % 11.6-14.6 [facility] Immature granulocytes/100 WBC (Bld) 4.100 % 0.0-0.9 [facility] Comment on above: IG% - Immature Granu locytes (promyelocytes, myelocytes and metamyelocytes) > 1% indicates that a LEFT SHIFT is Present. MCH (RBC) [Entitic mass] 27.0 pg 27.0-32.0 [facility] Nucleated RBC/100 WBC (Bld) [Ratio] 0.2 % 0-5 [facility] Laboratory - Microbiology an d Antimicrobial susceptibilityOrdered By: Anatoly Morton on 04-16-2023 Bacteria identified Cx Nom (Bld) No growth in 5 days. [facility] SARS-CoV-2 (COVID-19) RNA DEMETRI+probe Ql (Unsp spec) RSV [facility] Bacteria identified Cx Nom (Bld) No growth in 5 days. [facility] SARS-CoV-2 (COVID-19) RNA DEMETRI+probe Ql (Unsp spec) RSV [facility] MCHC Auto (RBC) [Mass/Vol]Or dered By: Anatoly Morton on 04-16-2023 MCHC (RBC) [Mass/Vol] 28.5 g/dL 32-36 [facility] Mucus LM Ql (Urine sed)Order ed By: Anatoly Morton on 04-16-2023 Mucus Ql (Urine sed) 2+ /hpf [facility] Nitrite Test strip Ql (U)Ord ered By: Anatoly Morton on 04-16-2023 Nitrite Ql (U) Negative Negative [facility] No Panel InformationOrdered By: Anatoly Morton on 04-16-2023 Bed Mix Venous Bld PCO2 at Pat Temp 59.4 mmHg 41-51 [facility] Blood Gas Sample Site Not entered [facility] Blood Gas Specimen Type MAXIM [facility] Oxygen Delivery Device Cannula [facility] Venous Blood Base Excess 7 mmol/L -1.0-3.5 [facility] Estimated Creatinine Clearance Calc 9.79 ml/min [facility] Estimated GFR (MDRD) Amer 10 mL/min >60 [facility] Comment on above: GFR Calc Estimated GFR (MDRD) Non-Af Amer 8 mL/min >60 [facility] Comment on above: Non- GFR Calc Troponin I High Sensitivity 18 pg/mL 3.0-54.0 [facility] Comment on above: Please Note: New Boyd t Units and Gender Specific Reference Ranges. For more information see Policy Stat Procedure Freeman High Sensitivity Troponin (TNIH) and attachments. PO2 venousOrdered By: Anatoly chapin on 04-16-2023 Oxygen (BldV) [Partial pressure] 48 mm[Hg] 25-40 [facility] Platelets bldOrdered By: Modesto Morton on 04-16-2023 Platelets (Bld) [#/Vol] 327 10*3/uL 150-450 [facility] Protein Test strip Ql (U)Ord ered By: Anatoly Morton on 04-16-2023 Protein Ql (U) 100 mg/dl Negative [facility] Serum or plasma albumin angela urement (mass/volume)Ordered By: Anatoly Morton on 04-16-2023 Albumin [Mass/Vol] 2.5 g/dL 3.2-5.0 [facility] Serum or plasma albumin/glob ulin mass ratioOrdered By: Anatoly Morton on 04-16-2023 Albumin/Globulin [Mass ratio] 0.6 {ratio} 0.9-2.4 [facility] Serum or plasma calcium angela urement (mass/volume)Ordered By: Anatoly Morton on 04-16-2023 Calcium [Mass/Vol] 10.0 mg/dL 8.5-10.1 [facility] Serum or plasma creatinine m easurement (mass/volume)Ordered By: Anatoly Morton on 04-16-2023 Creatinine [Mass/Vol] 5.65 mg/dL 0.55-1.02 [facility] Comment on above: The validity of the calculated GFR & GFRAA in patients over 70 years has not been determined. Clinical correlation is essential. Serum or plasma urea nitroge n measurement (mass/volume)Ordered By: Anatoly Morton on 04-16-2023 Urea nitrogen [Mass/Vol] 37 mg/dL 7-18 [facility] Serum procalcitonin measurem entOrdered By: Elizabeth Choe on 04-16-2023 Procalcitonin [Mass/Vol] 0.24 ng/mL 0.00-0.09 [facility] Comment on above: A procalcitonin (PCT ) level above 2.0 ng/mL on the first day of ICU admission is associated with a high risk for progression to severe sepsis and/or septic shock. A PCT level below 0.5 ng/mL on the first day of ICU admission is associated with a low risk for progression to severe and/or septic shock. Note: Concentrations <0.5 ng/mL do not exclude an infection on account of localized infections (without systemic signs) which can be associated with such low concentrations, or a systemic infection in its initial stages (<6 hours). Furthermore, increased procalcitonin can occur without infection. PCT concentrations between 0.5 and 2.0 ng/mL should be interpreted taking into account the patient's history. It is recommended to retest PCT within 6-24 hours if any concentrations <2 ng/mL are obtained. Squamous epithelial cells de tection in urine sediment by light microscopyOrdered By: Anatoly Morton on 04-16-2023 Epithelial cells.squamous LM Ql (Urine sed) 0-5 SEEN /hpf 5-10 [facility] Thin prep Papanicolaou smear with manual screeningOrdered By: Anatoly Morton on 04-16-2023 Thin prep Papanicolaou smear with manual screening 14 U/L 15-37 [facility] Thin prep Papanicolaou smear with manual screening 5 5-15 [facility] Urine blood detectionOrdered By: Anatoly Morton on 04-16-2023 RBC Ql (U) 10 /ul Negative [facility] RBC Ql (U) 0-5 SEEN /hpf 0-5 [facility] Urine clarityOrdered By: Modesto Morton on 04-16-2023 Clarity (U) Sl. Cloudy Clear [facility] Urine color determinationOrd ered By: Anatoly Morton on 04-16-2023 Color (U) Yellow Yellow [facility] Urine glucose detectionOrder ed By: Anatoly Morton on 04-16-2023 Glucose Ql (U) 50 mg/dl Normal [facility] Urine leukocyte esterase det ection by dipstickOrdered By: Anatoly Morton on 04-16-2023 Leukocyte esterase Test strip Ql (U) 100 /ul Negative [facility] Urine pHOrdered By: Anatoly temple on 04-16-2023 pH (U) 5.0 [pH] 5.0 - 8.0 [facility] Urine sediment bacteria coun t by microscopy (number/high power field)Ordered By: Anatoly Morton on 04-16-2023 Bacteria LM.HPF (Urine sed) [#/Area] 1 /[HPF] None Seen [facility] Urine specific gravity measu rementOrdered By: Anatoly Morton on 04-16-2023 Specific gravity (U) [Rel density] 1.025 1.002-1.030 [facility] Urobilinogen Auto test strip Ql (U)Ordered By: Anatoly Morton on 04-16-2023 Urobilinogen Ql (U) Normal mg/dl Normal [facility] Vital signsOrdered By: Anatoly Morton on 04-16-2023 Oxygen saturation in Blood 80 % 50-70 [facility] pH measurementOrdered By: Gold Morton on 04-16-2023 pH (Unsp spec) 7.35 [pH] 7.32-7.42 [facility] Absolute lymphocyte countOrd ered By: Sepideh Patterson on 03-08-2023 Lymphocytes Auto (Unsp spec) [#/Vol] 2.81 10*3/uL 0.83-4.51 [facility] Basophil percentageOrdered B y: Sepideh Patterson on 03-08-2023 Basophil percentage 0-5 SEEN /hpf 0-5 [facility] Basophils/100 WBC (Bld) 0.4 % 0-1 [facility] Chloride [Moles/Vol] 93 mmol/L 98-107 [facility] Eosinophils/100 WBC (Bld) 1.3 % 0-5 [facility] Glucose [Mass/Vol] 160 mg/dL 74-106 [facility] Comment on above: Fasting Glucose resu lt greater than or equal to 126 mg/dL suggests DIABETES MELLITUS per A.D.A. criteria. Neutrophils (Bld) [#/Vol] 6.4 10*3/uL 2.0-7.7 [facility] Neutrophils/100 WBC (Bld) 62.0 % 47-70 [facility] Potassium [Moles/Vol] 3.5 mmol/L 3.5-5.1 [facility] Sodium [Moles/Vol] 138 mmol/L 136-145 [facility] WBC (Bld) [#/Vol] 10.3 10*3/uL 4.4-11.0 [facility] Bilirubin Test strip Ql (U)O rdered By: Sepideh Patterson on 03-08-2023 Bilirubin Ql (U) Negative Negative [facility] Blood erythrocytes count (nu mber/volume)Ordered By: Sepideh Patterson on 03-08-2023 RBC (Bld) [#/Vol] 3.36 10*6/uL 4.2-5.4 [facility] Blood hemoglobin measurement (mass/volume)Ordered By: Sepideh Patterson on 03-08-2023 Hemoglobin (Bld) [Mass/Vol] 9.4 g/dL 12.0-15.0 [facility] Blood lymphocytes/100 leukoc ytesOrdered By: Sepideh Patterson on 03-08-2023 Lymphocytes/100 WBC (Bld) 27.3 % 19-41 [facility] Blood monocytes/100 leukocyt esOrdered By: Sepideh Patterson on 03-08-2023 Monocytes/100 WBC (Bld) 7.7 % 0-10 [facility] Blood platelet mean volumeOr dered By: Sepideh Patterson on 03-08-2023 Platelet mean volume (Bld) [Entitic vol] 11.6 fL 6.2-12.0 [facility] Culture, urineOrdered By: Trevor Patterson on 03-08-2023 Bacteria identified Cx Nom (U) Culture exhibits no growth. [facility] Determination of erythrocyte mean corpuscular volume (MCV)Ordered By: Sepideh Patterson on 03-08-2023 MCV (RBC) [Entitic vol] 95.2 fL 81-99 [facility] Hematocrit Auto (Bld) [Volum e fraction]Ordered By: Sepideh Patterson on 03-08-2023 Hematocrit (Bld) [Volume fraction] 32.0 % 37-47 [facility] Ketones Test strip Ql (U)Ord ered By: Sepideh Patterson on 03-08-2023 Ketones Ql (U) Negative Negative [facility] Laboratory - Chemistry and C hemistry - challengeOrdered By: Sepideh Patterson on 03-08-2023 CO2 [Moles/Vol] 43.0 mmol/L 21.0-32.0 [facility] Urea nitrogen/Creatinine [Mass ratio] 21.2 mg/mg 10-20 [facility] Laboratory - Hematology and Cell countsOrdered By: Sepideh Patterson on 03-08-2023 Erythrocyte distribution width (RBC) [Entitic vol] 50.3 fL 35.1-43.9 [facility] Erythrocyte distribution width (RBC) [Ratio] 14.5 % 11.6-14.6 [facility] Immature granulocytes/100 WBC (Bld) 1.300 % 0.0-0.9 [facility] Comment on above: IG% - Immature Granu locytes (promyelocytes, myelocytes and metamyelocytes) > 1% indicates that a LEFT SHIFT is Present. MCH (RBC) [Entitic mass] 28.0 pg 27.0-32.0 [facility] Nucleated RBC/100 WBC (Bld) [Ratio] 0 % 0-5 [facility] MCHC Auto (RBC) [Mass/Vol]Or dered By: Sepideh Patterson on 03-08-2023 MCHC (RBC) [Mass/Vol] 29.4 g/dL 32-36 [facility] Mucus LM Ql (Urine sed)Order ed By: Sepideh Patterson on 03-08-2023 Mucus Ql (Urine sed) 0 SEEN /hpf [facility] Nitrite Test strip Ql (U)Ord ered By: Sepideh Patterson on 03-08-2023 Nitrite Ql (U) Negative Negative [facility] No Panel InformationOrdered By: Sepideh Patterson on 03-08-2023 Estimated GFR (MDRD) Amer 73 mL/min >60 [facility] Comment on above: GFR Calc Estimated GFR (MDRD) Non-Af Amer 60 mL/min >60 [facility] Comment on above: Non- GFR Calc Platelets bldOrdered By: Navneet Patterson on 03-08-2023 Platelets (Bld) [#/Vol] 231 10*3/uL 150-450 [facility] Protein Test strip Ql (U)Ord ered By: Sepideh Patterson on 03-08-2023 Protein Ql (U) Negative Negative [facility] Serum or plasma calcium angela urement (mass/volume)Ordered By: Sepideh Patterson on 03-08-2023 Calcium [Mass/Vol] 9.9 mg/dL 8.5-10.1 [facility] Serum or plasma creatinine m easurement (mass/volume)Ordered By: Sepideh Patterson on 03-08-2023 Creatinine [Mass/Vol] 0.99 mg/dL 0.55-1.02 [facility] Comment on above: The validity of the calculated GFR & GFRAA in patients over 70 years has not been determined. Clinical correlation is essential. Serum or plasma urea nitroge n measurement (mass/volume)Ordered By: Sepideh Patterson on 03-08-2023 Urea nitrogen [Mass/Vol] 21 mg/dL 7-18 [facility] Squamous epithelial cells de tection in urine sediment by light microscopyOrdered By: Sepideh Patterson on 03-08-2023 Epithelial cells.squamous LM Ql (Urine sed) 5-10 SEEN /hpf 5-10 [facility] Thin prep Papanicolaou smear with manual screeningOrdered By: Sepideh Patterson on 03-08-2023 Thin prep Papanicolaou smear with manual screening 2 5-15 [facility] Urine blood detectionOrdered By: Sepideh Patterson on 03-08-2023 RBC Ql (U) Negative Negative [facility] RBC Ql (U) 0 SEEN /hpf 0-5 [facility] Urine clarityOrdered By: Navneet Patterson on 03-08-2023 Clarity (U) Clear Clear [facility] Urine color determinationOrd ered By: Sepideh Patterson on 03-08-2023 Color (U) Yellow Yellow [facility] Urine glucose detectionOrder ed By: Sepideh Patterson on 03-08-2023 Glucose Ql (U) Normal mg/dl Normal [facility] Urine leukocyte esterase det ection by dipstickOrdered By: Sepideh Patterson on 03-08-2023 Leukocyte esterase Test strip Ql (U) Negative Negative [facility] Urine pHOrdered By: Sepideh hardin on 03-08-2023 pH (U) 8.0 [pH] 5.0 - 8.0 [facility] Urine sediment bacteria coun t by microscopy (number/high power field)Ordered By: Sepideh Patterson on 03-08-2023 Bacteria LM.HPF (Urine sed) [#/Area] RARE /hpf None Seen [facility] Urine specific gravity measu rementOrdered By: Sepideh Patterson on 03-08-2023 Specific gravity (U) [Rel density] 1.010 1.002-1.030 [facility] Urobilinogen Auto test strip Ql (U)Ordered By: Sepideh Patterson on 03-08-2023 Urobilinogen Ql (U) Normal mg/dl Normal [facility] Basophil percentageOrdered B y: Sepideh Patterson on 03-05-2023 Bilirubin [Mass/Vol] 0.20 mg/dL 0.20-1.00 [facility] Comment on above: For patients on eltr ombopag therapy, use of Dimension [place] TBIL is not recommended. Chloride [Moles/Vol] 96 mmol/L 98-107 [facility] Glucose [Mass/Vol] 118 mg/dL 74-106 [facility] Comment on above: Fasting Glucose resu lt from 100 to 125 mg/dL suggests IMPAIRED HOMEOSTASIS per A.D.A. criteria. Potassium [Moles/Vol] 4.3 mmol/L 3.5-5.1 [facility] Protein [Mass/Vol] 6.3 g/dL 6.4-8.2 [facility] Sodium [Moles/Vol] 137 mmol/L 136-145 [facility] WBC (Bld) [#/Vol] 10.6 10*3/uL 4.4-11.0 [facility] Blood erythrocytes count (nu mber/volume)Ordered By: Sepideh Patterson on 03-05-2023 RBC (Bld) [#/Vol] 3.37 10*6/uL 4.2-5.4 [facility] Blood hemoglobin measurement (mass/volume)Ordered By: Sepideh Patterson on 03-05-2023 Hemoglobin (Bld) [Mass/Vol] 9.4 g/dL 12.0-15.0 [facility] Blood platelet mean volumeOr dered By: Sepideh Patterson on 03-05-2023 Platelet mean volume (Bld) [Entitic vol] 11.6 fL 6.2-12.0 [facility] Determination of erythrocyte mean corpuscular volume (MCV)Ordered By: Sepideh Patterson on 03-05-2023 MCV (RBC) [Entitic vol] 96.1 fL 81-99 [facility] Hematocrit Auto (Bld) [Volum e fraction]Ordered By: Sepideh Patterson on 03-05-2023 Hematocrit (Bld) [Volume fraction] 32.4 % 37-47 [facility] Laboratory - Chemistry and C hemistry - challengeOrdered By: Sepideh Patterson on 03-05-2023 ALP [Catalytic activity/Vol] 75 U/L 45-117 [facility] ALT [Catalytic activity/Vol] 11 U/L 13-56 [facility] CO2 [Moles/Vol] 37.0 mmol/L 21.0-32.0 [facility] Globulin (S) [Mass/Vol] 3.9 g/dL 2.2-4.2 [facility] Magnesium [Mass/Vol] 2.0 mg/dL 1.6-2.6 [facility] Urea nitrogen/Creatinine [Mass ratio] 29.2 mg/mg 10-20 [facility] Laboratory - Hematology and Cell countsOrdered By: Sepideh Patterson on 03-05-2023 Erythrocyte distribution width (RBC) [Entitic vol] 50.8 fL 35.1-43.9 [facility] Erythrocyte distribution width (RBC) [Ratio] 14.6 % 11.6-14.6 [facility] MCH (RBC) [Entitic mass] 27.9 pg 27.0-32.0 [facility] MCHC Auto (RBC) [Mass/Vol]Or dered By: Sepideh Patterson on 03-05-2023 MCHC (RBC) [Mass/Vol] 29.0 g/dL 32-36 [facility] No Panel InformationOrdered By: Sepideh Patterson on 03-05-2023 Estimated GFR (MDRD) Amer 95 mL/min >60 [facility] Comment on above: GFR Calc Estimated GFR (MDRD) Non-Af Amer 79 mL/min >60 [facility] Comment on above: Non- GFR Calc Platelets bldOrdered By: Navneet Patterson on 03-05-2023 Platelets (Bld) [#/Vol] 210 10*3/uL 150-450 [facility] Serum or plasma albumin angela urement (mass/volume)Ordered By: Sepideh Patterson on 03-05-2023 Albumin [Mass/Vol] 2.4 g/dL 3.2-5.0 [facility] Serum or plasma albumin/glob ulin mass ratioOrdered By: Sepideh Patterson on 03-05-2023 Albumin/Globulin [Mass ratio] 0.6 {ratio} 0.9-2.4 [facility] Serum or plasma calcium angela urement (mass/volume)Ordered By: Sepideh Patterson on 03-05-2023 Calcium [Mass/Vol] 9.6 mg/dL 8.5-10.1 [facility] Serum or plasma creatinine m easurement (mass/volume)Ordered By: Sepideh Patterson on 03-05-2023 Creatinine [Mass/Vol] 0.79 mg/dL 0.55-1.02 [facility] Comment on above: The validity of the calculated GFR & GFRAA in patients over 70 years has not been determined. Clinical correlation is essential. Serum or plasma urea nitroge n measurement (mass/volume)Ordered By: Sepideh Patterson on 03-05-2023 Urea nitrogen [Mass/Vol] 23 mg/dL 7-18 [facility] Thin prep Papanicolaou smear with manual screeningOrdered By: Sepideh Patterson on 03-05-2023 Thin prep Papanicolaou smear with manual screening 11 U/L 15-37 [facility] Thin prep Papanicolaou smear with manual screening 4 5-15 [facility] Absolute lymphocyte countOrd ered By: Sepideh Patterson on 01-22-2023 Lymphocytes Auto (Unsp spec) [#/Vol] 2.66 10*3/uL 0.83-4.51 [facility] Basophil percentageOrdered B y: Sepideh Patterson on 01-22-2023 Basophils/100 WBC (Bld) 0.4 % 0-1 [facility] Chloride [Moles/Vol] 92 mmol/L 98-107 [facility] Eosinophils/100 WBC (Bld) 1.3 % 0-5 [facility] Glucose [Mass/Vol] 85 mg/dL 74-106 [facility] Neutrophils (Bld) [#/Vol] 6.7 10*3/uL 2.0-7.7 [facility] Neutrophils/100 WBC (Bld) 64.8 % 47-70 [facility] Potassium [Moles/Vol] 4.3 mmol/L 3.5-5.1 [facility] Sodium [Moles/Vol] 138 mmol/L 136-145 [facility] WBC (Bld) [#/Vol] 10.4 10*3/uL 4.4-11.0 [facility] Blood erythrocytes count (nu mber/volume)Ordered By: Sepideh Patterson on 01-22-2023 RBC (Bld) [#/Vol] 3.26 10*6/uL 4.2-5.4 [facility] Blood hemoglobin measurement (mass/volume)Ordered By: Sepideh Patterson on 01-22-2023 Hemoglobin (Bld) [Mass/Vol] 9.0 g/dL 12.0-15.0 [facility] Blood lymphocytes/100 leukoc ytesOrdered By: Sepideh Patterson on 01-22-2023 Lymphocytes/100 WBC (Bld) 25.6 % 19-41 [facility] Blood monocytes/100 leukocyt esOrdered By: Sepideh Patterson on 01-22-2023 Monocytes/100 WBC (Bld) 6.8 % 0-10 [facility] Blood platelet mean volumeOr dered By: Sepideh Patterson on 01-22-2023 Platelet mean volume (Bld) [Entitic vol] 11.2 fL 6.2-12.0 [facility] Determination of erythrocyte mean corpuscular volume (MCV)Ordered By: Sepideh Patterson on 01-22-2023 MCV (RBC) [Entitic vol] 98.2 fL 81-99 [facility] Hematocrit Auto (Bld) [Volum e fraction]Ordered By: Sepideh Patterson on 01-22-2023 Hematocrit (Bld) [Volume fraction] 32.0 % 37-47 [facility] Laboratory - Chemistry and C hemistry - challengeOrdered By: Sepideh Patterson on 01-22-2023 CO2 [Moles/Vol] 42.0 mmol/L 21.0-32.0 [facility] Urea nitrogen/Creatinine [Mass ratio] 31.8 mg/mg 10-20 [facility] Laboratory - Hematology and Cell countsOrdered By: Sepideh Patterson on 01-22-2023 Erythrocyte distribution width (RBC) [Entitic vol] 52.0 fL 35.1-43.9 [facility] Erythrocyte distribution width (RBC) [Ratio] 14.5 % 11.6-14.6 [facility] Immature granulocytes/100 WBC (Bld) 1.100 % 0.0-0.9 [facility] Comment on above: IG% - Immature Granu locytes (promyelocytes, myelocytes and metamyelocytes) > 1% indicates that a LEFT SHIFT is Present. MCH (RBC) [Entitic mass] 27.6 pg 27.0-32.0 [facility] Nucleated RBC/100 WBC (Bld) [Ratio] 0 % 0-5 [facility] MCHC Auto (RBC) [Mass/Vol]Or dered By: Sepideh Patterson on 01-22-2023 MCHC (RBC) [Mass/Vol] 28.1 g/dL 32-36 [facility] No Panel InformationOrdered By: Sepideh Patterson on 01-22-2023 Estimated GFR (MDRD) Amer 78 mL/min >60 [facility] Comment on above: GFR Calc Estimated GFR (MDRD) Non-Af Amer 64 mL/min >60 [facility] Comment on above: Non- GFR Calc Platelets bldOrdered By: Navneet Patterson on 01-22-2023 Platelets (Bld) [#/Vol] 214 10*3/uL 150-450 [facility] Serum or plasma calcium angela urement (mass/volume)Ordered By: Sepideh Patterson on 01-22-2023 Calcium [Mass/Vol] 10.2 mg/dL 8.5-10.1 [facility] Serum or plasma creatinine m easurement (mass/volume)Ordered By: Sepideh Patterson on 01-22-2023 Creatinine [Mass/Vol] 0.94 mg/dL 0.55-1.02 [facility] Comment on above: The validity of the calculated GFR & GFRAA in patients over 70 years has not been determined. Clinical correlation is essential. Serum or plasma urea nitroge n measurement (mass/volume)Ordered By: Sepidehqian Patterson on 01-22-2023 Urea nitrogen [Mass/Vol] 30 mg/dL 7-18 [facility] Thin prep Papanicolaou smear with manual screeningOrdered By: Sepidehqian Patterson on 01-22-2023 Thin prep Papanicolaou smear with manual screening 4 5-15 [facility] Absolute lymphocyte countOrd ered By: Sepideh Patterson on 12-06-2022 Lymphocytes Auto (Unsp spec) [#/Vol] 1.98 10*3/uL 0.83-4.51 [facility] Basophil percentageOrdered B y: Sepideh Patterson on 12-06-2022 Basophils/100 WBC (Bld) 0.8 % 0-1 [facility] Chloride [Moles/Vol] 96 mmol/L 98-107 [facility] Eosinophils/100 WBC (Bld) 1.6 % 0-5 [facility] Glucose [Mass/Vol] 104 mg/dL 74-106 [facility] Comment on above: Fasting Glucose resu lt from 100 to 125 mg/dL suggests IMPAIRED HOMEOSTASIS per A.D.A. criteria. Neutrophils (Bld) [#/Vol] 5.7 10*3/uL 2.0-7.7 [facility] Neutrophils/100 WBC (Bld) 63.5 % 47-70 [facility] Potassium [Moles/Vol] 3.7 mmol/L 3.5-5.1 [facility] Sodium [Moles/Vol] 141 mmol/L 136-145 [facility] WBC (Bld) [#/Vol] 8.9 10*3/uL 4.4-11.0 [facility] Blood erythrocytes count (nu mber/volume)Ordered By: Sepideh Patterson on 12-06-2022 RBC (Bld) [#/Vol] 3.83 10*6/uL 4.2-5.4 [facility] Blood hemoglobin measurement (mass/volume)Ordered By: Sepideh Patterson on 12-06-2022 Hemoglobin (Bld) [Mass/Vol] 10.2 g/dL 12.0-15.0 [facility] Blood lymphocytes/100 leukoc ytesOrdered By: Sepidehqian Patterson on 12-06-2022 Lymphocytes/100 WBC (Bld) 22.2 % 19-41 [facility] Blood monocytes/100 leukocyt esOrdered By: Sepideh Patterson on 12-06-2022 Monocytes/100 WBC (Bld) 9.1 % 0-10 [facility] Blood platelet mean volumeOr dered By: Sepideh Patetrson on 12-06-2022 Platelet mean volume (Bld) [Entitic vol] 11.0 fL 6.2-12.0 [facility] Determination of erythrocyte mean corpuscular volume (MCV)Ordered By: Sepideh Patterson on 12-06-2022 MCV (RBC) [Entitic vol] 96.1 fL 81-99 [facility] Hematocrit Auto (Bld) [Volum e fraction]Ordered By: Sepideh Patterson on 12-06-2022 Hematocrit (Bld) [Volume fraction] 36.8 % 37-47 [facility] Laboratory - Chemistry and C hemistry - challengeOrdered By: Sepideh Patterson on 12-06-2022 CO2 [Moles/Vol] 43.0 mmol/L 21.0-32.0 [facility] Urea nitrogen/Creatinine [Mass ratio] 44.2 mg/mg 10-20 [facility] Laboratory - Hematology and Cell countsOrdered By: Sepideh Patterson on 12-06-2022 Erythrocyte distribution width (RBC) [Entitic vol] 50.8 fL 35.1-43.9 [facility] Erythrocyte distribution width (RBC) [Ratio] 14.7 % 11.6-14.6 [facility] Immature granulocytes/100 WBC (Bld) 2.800 % 0.0-0.9 [facility] Comment on above: IG% - Immature Granu locytes (promyelocytes, myelocytes and metamyelocytes) > 1% indicates that a LEFT SHIFT is Present. MCH (RBC) [Entitic mass] 26.6 pg 27.0-32.0 [facility] Nucleated RBC/100 WBC (Bld) [Ratio] 0 % 0-5 [facility] MCHC Auto (RBC) [Mass/Vol]Or dered By: Sepideh Patterson on 12-06-2022 MCHC (RBC) [Mass/Vol] 27.7 g/dL 32-36 [facility] No Panel InformationOrdered By: Sepideh Patterson on 12-06-2022 Estimated GFR (MDRD) Amer 118 mL/min >60 [facility] Comment on above: GFR Calc Estimated GFR (MDRD) Non-Af Amer 97 mL/min >60 [facility] Comment on above: Non- GFR Calc Platelets bldOrdered By: Navneet Patterson on 12-06-2022 Platelets (Bld) [#/Vol] 266 10*3/uL 150-450 [facility] Serum or plasma C reactive p rotein measurement (mass/volume)Ordered By: Sepideh Patterson on 12-06-2022 CRP [Mass/Vol] 20.20 mg/L 0.0-3.0 [facility] [facility] Comment on above: C-Reactive Protein ( CRP) provides useful information for thediagnosis, therapy and monitoring of inflammatory processesand associated diseases. For the evaluation of Relative Riskfor Cardiovascular Disease, a High Sensitivity CRP (HSCRP)should be ordered. Serum or plasma calcium angela urement (mass/volume)Ordered By: Sepideh Patterson on 12-06-2022 Calcium [Mass/Vol] 10.6 mg/dL 8.5-10.1 [facility] Serum or plasma creatinine m easurement (mass/volume)Ordered By: Sepideh Patterson on 12-06-2022 Creatinine [Mass/Vol] 0.66 mg/dL 0.55-1.02 [facility] Comment on above: The validity of the calculated GFR & GFRAA in patients over 70 years has not been determined. Clinical correlation is essential. Serum or plasma urea nitroge n measurement (mass/volume)Ordered By: Sepideh Patterson on 12-06-2022 Urea nitrogen [Mass/Vol] 29 mg/dL 7-18 [facility] Thin prep Papanicolaou smear with manual screeningOrdered By: Sepideh Patterson on 12-06-2022 Thin prep Papanicolaou smear with manual screening 2 5-15 [facility] Absolute lymphocyte countOrd ered By: Max Barber on 12-02-2022 Lymphocytes Auto (Unsp spec) [#/Vol] 3.01 10*3/uL 0.83-4.51 [facility] Basophil percentageOrdered B y: Max Barber on 12-02-2022 Basophils/100 WBC (Bld) 0.6 % 0-1 [facility] Bilirubin [Mass/Vol] 0.20 mg/dL 0.20-1.00 [facility] Comment on above: For patients on eltr ombopag therapy, use of Dimension Freeman TBIL is not recommended. Chloride [Moles/Vol] 97 mmol/L 98-107 [facility] Eosinophils/100 WBC (Bld) 1.0 % 0-5 [facility] Glucose [Mass/Vol] 155 mg/dL 74-106 [facility] Comment on above: Fasting Glucose resu lt greater than or equal to 126 mg/dL suggests DIABETES MELLITUS per A.D.A. criteria. Neutrophils (Bld) [#/Vol] 8.8 10*3/uL 2.0-7.7 [facility] Neutrophils/100 WBC (Bld) 65.5 % 47-70 [facility] Potassium [Moles/Vol] 4.4 mmol/L 3.5-5.1 [facility] Protein [Mass/Vol] 6.6 g/dL 6.4-8.2 [facility] Sodium [Moles/Vol] 138 mmol/L 136-145 [facility] WBC (Bld) [#/Vol] 13.5 10*3/uL 4.4-11.0 [facility] Blood erythrocytes count (nu mber/volume)Ordered By: Max Barber on 12-02-2022 RBC (Bld) [#/Vol] 3.70 10*6/uL 4.2-5.4 [facility] Blood hemoglobin measurement (mass/volume)Ordered By: Max Barber on 12-02-2022 Hemoglobin (Bld) [Mass/Vol] 10.1 g/dL 12.0-15.0 [facility] Blood lymphocytes/100 leukoc ytesOrdered By: Max Barber on 12-02-2022 Lymphocytes/100 WBC (Bld) 22.4 % 19-41 [facility] Blood monocytes/100 leukocyt esOrdered By: Max Barber on 12-02-2022 Monocytes/100 WBC (Bld) 6.8 % 0-10 [facility] Blood platelet mean volumeOr dered By: Max Barber on 12-02-2022 Platelet mean volume (Bld) [Entitic vol] 11.3 fL 6.2-12.0 [facility] Determination of erythrocyte mean corpuscular volume (MCV)Ordered By: Max Barber on 12-02-2022 MCV (RBC) [Entitic vol] 94.9 fL 81-99 [facility] Hematocrit Auto (Bld) [Volum e fraction]Ordered By: Max Barber on 12-02-2022 Hematocrit (Bld) [Volume fraction] 35.1 % 37-47 [facility] Laboratory - Chemistry and C hemistry - challengeOrdered By: Max Barber on 12-02-2022 ALP [Catalytic activity/Vol] 90 U/L 45-117 [facility] ALT [Catalytic activity/Vol] 16 U/L 13-56 [facility] CO2 [Moles/Vol] 40.0 mmol/L 21.0-32.0 [facility] Globulin (S) [Mass/Vol] 3.9 g/dL 2.2-4.2 [facility] Urea nitrogen/Creatinine [Mass ratio] 26.1 mg/mg 10-20 [facility] Laboratory - Hematology and Cell countsOrdered By: Max Barber on 12-02-2022 Erythrocyte distribution width (RBC) [Entitic vol] 50.3 fL 35.1-43.9 [facility] Erythrocyte distribution width (RBC) [Ratio] 14.7 % 11.6-14.6 [facility] Immature granulocytes/100 WBC (Bld) 3.700 % 0.0-0.9 [facility] Comment on above: IG% - Immature Granu locytes (promyelocytes, myelocytes and metamyelocytes) > 1% indicates that a LEFT SHIFT is Present. MCH (RBC) [Entitic mass] 27.3 pg 27.0-32.0 [facility] Nucleated RBC/100 WBC (Bld) [Ratio] 0.1 % 0-5 [facility] MCHC Auto (RBC) [Mass/Vol]Or dered By: Max Barber on 12-02-2022 MCHC (RBC) [Mass/Vol] 28.8 g/dL 32-36 [facility] No Panel InformationOrdered By: Max Barber on 12-02-2022 Estimated Creatinine Clearance Calc 65.28 ml/min [facility] Estimated GFR (MDRD) Amer 84 mL/min >60 [facility] Comment on above: GFR Calc Estimated GFR (MDRD) Non-Af Amer 69 mL/min >60 [facility] Comment on above: Non- GFR Calc Platelets bldOrdered By: Tina Barber on 12-02-2022 Platelets (Bld) [#/Vol] 272 10*3/uL 150-450 [facility] Serum or plasma albumin angela urement (mass/volume)Ordered By: Max Barber on 12-02-2022 Albumin [Mass/Vol] 2.7 g/dL 3.2-5.0 [facility] Serum or plasma albumin/glob ulin mass ratioOrdered By: Max Barber on 12-02-2022 Albumin/Globulin [Mass ratio] 0.7 {ratio} 0.9-2.4 [facility] Serum or plasma calcium angela urement (mass/volume)Ordered By: Max Barber on 12-02-2022 Calcium [Mass/Vol] 9.7 mg/dL 8.5-10.1 [facility] Serum or plasma creatinine m easurement (mass/volume)Ordered By: Max Barber on 12-02-2022 Creatinine [Mass/Vol] 0.88 mg/dL 0.55-1.02 [facility] Comment on above: The validity of the calculated GFR & GFRAA in patients over 70 years has not been determined. Clinical correlation is essential. Serum or plasma urea nitroge n measurement (mass/volume)Ordered By: Max Barber on 12-02-2022 Urea nitrogen [Mass/Vol] 23 mg/dL 7-18 [facility] Thin prep Papanicolaou smear with manual screeningOrdered By: Max Barber on 12-02-2022 Thin prep Papanicolaou smear with manual screening 9 U/L 15-37 [facility] Thin prep Papanicolaou smear with manual screening 1 5-15 [facility] No Panel InformationOrdered By: Sepideh Patterson on 2022 Vitamin D 25-Hydroxy 63.5 ng/mL [facility] Comment on above: Vitamin D 25(OH) Sta tus Range Deficiency <20 ng/mL (50nmol/L) Insufficiency 20 - 30 ng/mL (50 - 75 nmol/L) Sufficiency 30 - 100 ng/mL (75 - 250 nmol/L) Toxicity >100 ng/mL (>250 nmol/L) Basophil percentageOrdered B y: Sepideh Patterson on 09-25-2022 Chloride [Moles/Vol] 92 mmol/L 98-107 [facility] Glucose [Mass/Vol] 103 mg/dL 74-106 [facility] Comment on above: Fasting Glucose resu lt from 100 to 125 mg/dL suggests IMPAIRED HOMEOSTASIS per A.D.A. criteria. Potassium [Moles/Vol] 3.6 mmol/L 3.5-5.1 [facility] Sodium [Moles/Vol] 138 mmol/L 136-145 [facility] WBC (Bld) [#/Vol] 10.7 10*3/uL 4.4-11.0 [facility] Blood erythrocytes count (nu mber/volume)Ordered By: Sepideh Patterson on 09-25-2022 RBC (Bld) [#/Vol] 3.98 10*6/uL 4.2-5.4 [facility] Blood hemoglobin measurement (mass/volume)Ordered By: Sepideh Patterson on 09-25-2022 Hemoglobin (Bld) [Mass/Vol] 10.7 g/dL 12.0-15.0 [facility] Blood platelet mean volumeOr dered By: Sepideh Patterson on 09-25-2022 Platelet mean volume (Bld) [Entitic vol] 11.2 fL 6.2-12.0 [facility] Determination of erythrocyte mean corpuscular volume (MCV)Ordered By: Sepideh Patterson on 09-25-2022 MCV (RBC) [Entitic vol] 91.2 fL 81-99 [facility] Hematocrit Auto (Bld) [Volum e fraction]Ordered By: Sepideh Patterson on 09-25-2022 Hematocrit (Bld) [Volume fraction] 36.3 % 37-47 [facility] Laboratory - Chemistry and C hemistry - challengeOrdered By: Sepideh Patterson on 09-25-2022 CO2 [Moles/Vol] 41.0 mmol/L 21.0-32.0 [facility] Urea nitrogen/Creatinine [Mass ratio] 32.0 mg/mg 10-20 [facility] Laboratory - Hematology and Cell countsOrdered By: Sepideh Patterson on 09-25-2022 Erythrocyte distribution width (RBC) [Entitic vol] 45.5 fL 35.1-43.9 [facility] Erythrocyte distribution width (RBC) [Ratio] 13.6 % 11.6-14.6 [facility] MCH (RBC) [Entitic mass] 26.9 pg 27.0-32.0 [facility] MCHC Auto (RBC) [Mass/Vol]Or dered By: Sepideh Patterson on 09-25-2022 MCHC (RBC) [Mass/Vol] 29.5 g/dL 32-36 [facility] No Panel InformationOrdered By: Sepideh Patterson on 09-25-2022 Estimated GFR (MDRD) Amer 118 mL/min >60 [facility] Comment on above: GFR Calc Estimated GFR (MDRD) Non-Af Amer 97 mL/min >60 [facility] Comment on above: Non- GFR Calc Platelets bldOrdered By: Navneet Patterson on 09-25-2022 Platelets (Bld) [#/Vol] 244 10*3/uL 150-450 [facility] Serum or plasma calcium angela urement (mass/volume)Ordered By: Sepideh Patterson on 09-25-2022 Calcium [Mass/Vol] 9.8 mg/dL 8.5-10.1 [facility] Serum or plasma creatinine m easurement (mass/volume)Ordered By: Sepideh Patterson on 09-25-2022 Creatinine [Mass/Vol] 0.66 mg/dL 0.55-1.02 [facility] Comment on above: The validity of the calculated GFR & GFRAA in patients over 70 years has not been determined. Clinical correlation is essential. Serum or plasma urea nitroge n measurement (mass/volume)Ordered By: Sepideh Patterson on 09-25-2022 Urea nitrogen [Mass/Vol] 21 mg/dL 7-18 [facility] Thin prep Papanicolaou smear with manual screeningOrdered By: Sepideh Patterson on 09-25-2022 Thin prep Papanicolaou smear with manual screening 5 5-15 [facility] Basophil percentageOrdered B y: Sepideh Patterson on 09-19-2022 Chloride [Moles/Vol] 97 mmol/L 98-107 [facility] Glucose [Mass/Vol] 128 mg/dL 74-106 [facility] Comment on above: Fasting Glucose resu lt greater than or equal to 126 mg/dL suggests DIABETES MELLITUS per A.D.A. criteria. Potassium [Moles/Vol] 4.6 mmol/L 3.5-5.1 [facility] Sodium [Moles/Vol] 139 mmol/L 136-145 [facility] WBC (Bld) [#/Vol] 8.9 10*3/uL 4.4-11.0 [facility] Blood erythrocytes count (nu mber/volume)Ordered By: Sepideh Patterson on 09-19-2022 RBC (Bld) [#/Vol] 4.02 10*6/uL 4.2-5.4 [facility] Blood hemoglobin measurement (mass/volume)Ordered By: Sepideh Patterson on 09-19-2022 Hemoglobin (Bld) [Mass/Vol] 10.9 g/dL 12.0-15.0 [facility] Blood platelet mean volumeOr dered By: Sepideh Patterson on 09-19-2022 Platelet mean volume (Bld) [Entitic vol] 11.6 fL 6.2-12.0 [facility] Determination of erythrocyte mean corpuscular volume (MCV)Ordered By: Sepideh Patterson on 09-19-2022 MCV (RBC) [Entitic vol] 95.0 fL 81-99 [facility] Hematocrit Auto (Bld) [Volum e fraction]Ordered By: Sepideh Patterson on 09-19-2022 Hematocrit (Bld) [Volume fraction] 38.2 % 37-47 [facility] Laboratory - Chemistry and C hemistry - challengeOrdered By: Sepideh Patterson on 09-19-2022 CO2 [Moles/Vol] 40.0 mmol/L 21.0-32.0 [facility] Urea nitrogen/Creatinine [Mass ratio] 46.1 mg/mg 10-20 [facility] Laboratory - Hematology and Cell countsOrdered By: Sepideh Patterson on 09-19-2022 Erythrocyte distribution width (RBC) [Entitic vol] 48.4 fL 35.1-43.9 [facility] Erythrocyte distribution width (RBC) [Ratio] 13.8 % 11.6-14.6 [facility] MCH (RBC) [Entitic mass] 27.1 pg 27.0-32.0 [facility] MCHC Auto (RBC) [Mass/Vol]Or dered By: Sepideh Patterson on 09-19-2022 MCHC (RBC) [Mass/Vol] 28.5 g/dL 32-36 [facility] No Panel InformationOrdered By: Sepideh Patterson on 09-19-2022 Estimated GFR (MDRD) Amer 162 mL/min >60 [facility] Comment on above: GFR Calc Estimated GFR (MDRD) Non-Af Amer 134 mL/min >60 [facility] Comment on above: Non- GFR Calc Platelets bldOrdered By: Navneet Patterson on 09-19-2022 Platelets (Bld) [#/Vol] 203 10*3/uL 150-450 [facility] Serum or plasma calcium angela urement (mass/volume)Ordered By: Sepideh Patterson on 09-19-2022 Calcium [Mass/Vol] 9.0 mg/dL 8.5-10.1 [facility] Serum or plasma creatinine m easurement (mass/volume)Ordered By: Sepideh Patterson on 09-19-2022 Creatinine [Mass/Vol] 0.50 mg/dL 0.55-1.02 [facility] Comment on above: The validity of the calculated GFR & GFRAA in patients over 70 years has not been determined. Clinical correlation is essential. Serum or plasma urea nitroge n measurement (mass/volume)Ordered By: Sepideh Patterson on 09-19-2022 Urea nitrogen [Mass/Vol] 23 mg/dL 7-18 [facility] Thin prep Papanicolaou smear with manual screeningOrdered By: Sepideh Patterson on 09-19-2022 Thin prep Papanicolaou smear with manual screening 2 5-15 [facility] Basophil percentageOrdered B y: Sepideh Patterson on 09-13-2022 Chloride [Moles/Vol] 97 mmol/L 98-107 [facility] Glucose [Mass/Vol] 108 mg/dL 74-106 [facility] Comment on above: Fasting Glucose resu lt from 100 to 125 mg/dL suggests IMPAIRED HOMEOSTASIS per A.D.A. criteria. Potassium [Moles/Vol] 3.3 mmol/L 3.5-5.1 [facility] Sodium [Moles/Vol] 142 mmol/L 136-145 [facility] Laboratory - Chemistry and C hemistry - challengeOrdered By: Sepideh Patterson on 09-13-2022 CO2 [Moles/Vol] 42.0 mmol/L 21.0-32.0 [facility] Natriuretic peptide B (Bld) [Mass/Vol] 17.3 pg/mL 0-100 [facility] Urea nitrogen/Creatinine [Mass ratio] 27.5 mg/mg 10-20 [facility] No Panel InformationOrdered By: Sepideh Patterson on 09-13-2022 Estimated GFR (MDRD) Amer 126 mL/min >60 [facility] Comment on above: GFR Calc Estimated GFR (MDRD) Non-Af Amer 104 mL/min >60 [facility] Comment on above: Non- GFR Calc Vitamin D 25-Hydroxy 59.7 ng/mL [facility] Comment on above: Vitamin D 25(OH) Sta tus Range Deficiency <20 ng/mL (50nmol/L) Insufficiency 20 - 30 ng/mL (50 - 75 nmol/L) Sufficiency 30 - 100 ng/mL (75 - 250 nmol/L) Toxicity >100 ng/mL (>250 nmol/L) Serum or plasma calcium angela urement (mass/volume)Ordered By: Sepideh Patterson on 09-13-2022 Calcium [Mass/Vol] 9.9 mg/dL 8.5-10.1 [facility] Serum or plasma creatinine m easurement (mass/volume)Ordered By: Sepideh Patterson on 09-13-2022 Creatinine [Mass/Vol] 0.62 mg/dL 0.55-1.02 [facility] Comment on above: The validity of the calculated GFR & GFRAA in patients over 70 years has not been determined. Clinical correlation is essential. Serum or plasma urea nitroge n measurement (mass/volume)Ordered By: Sepideh Patterson on 09-13-2022 Urea nitrogen [Mass/Vol] 17 mg/dL 7-18 [facility] Thin prep Papanicolaou smear with manual screeningOrdered By: Sepidehqian Patterson on 09-13-2022 Thin prep Papanicolaou smear with manual screening 3 5-15 [facility] Absolute lymphocyte countOrd ered By: Dr. Lorenzo on 09-12-2022 Lymphocytes Auto (Unsp spec) [#/Vol] 2.55 10*3/uL 0.83-4.51 [facility] Basophil percentageOrdered B y: Dr. Lorenzo on 09-12-2022 Basophil percentage 95 mg/dL 74-106 [facility] Basophil percentage 140 mmol/L 136-145 [facility] Basophil percentage 3.4 mmol/L 3.5-5.1 [facility] Basophil percentage 99 mmol/L 98-107 [facility] Basophils (Bld) [#/Vol] 6.9 10*3/uL 4.4-11.0 [facility] Basophils (Bld) [#/Vol] 3.1 10*3/uL 2.0-7.7 [facility] Basophils/100 WBC (Bld) 44.8 % 47-70 [facility] Basophils/100 WBC (Bld) 2.7 % 0-5 [facility] Basophils/100 WBC (Bld) 0.9 % 0-1 [facility] Basophil percentageOrdered B y: Yomi Lorenzo on 09-12-2022 Chloride [Moles/Vol] 99 mmol/L 98-107 [facility] Eosinophils/100 WBC (Bld) 2.7 % 0-5 [facility] Glucose [Mass/Vol] 95 mg/dL 74-106 [facility] Neutrophils (Bld) [#/Vol] 3.1 10*3/uL 2.0-7.7 [facility] Neutrophils/100 WBC (Bld) 44.8 % 47-70 [facility] Potassium [Moles/Vol] 3.4 mmol/L 3.5-5.1 [facility] Sodium [Moles/Vol] 140 mmol/L 136-145 [facility] WBC (Bld) [#/Vol] 6.9 10*3/uL 4.4-11.0 [facility] Blood erythrocytes count (nu mber/volume)Ordered By: Dr. Lorenzo on 09-12-2022 RBC (Bld) [#/Vol] 3.71 10*6/uL 4.2-5.4 [facility] Blood hemoglobin measurement (mass/volume)Ordered By: Dr. Lorenzo on 09-12-2022 Hemoglobin (Bld) [Mass/Vol] 9.9 g/dL 12.0-15.0 [facility] Blood lymphocytes/100 leukoc ytesOrdered By: Dr. Lorenzo on 09-12-2022 Lymphocytes/100 WBC (Bld) 36.7 % 19-41 [facility] Blood monocytes/100 leukocyt esOrdered By: Dr. Lorenzo on 09-12-2022 Monocytes/100 WBC (Bld) 11.0 % 0-10 [facility] Blood platelet mean volumeOr dered By: Dr. Lorenzo on 09-12-2022 Platelet mean volume (Bld) [Entitic vol] 10.8 fL 6.2-12.0 [facility] Determination of erythrocyte mean corpuscular volume (MCV)Ordered By: Dr. Lorenzo on 09-12-2022 MCV (RBC) [Entitic vol] 94.3 fL 81-99 [facility] Hematocrit Auto (Bld) [Volum e fraction]Ordered By: Dr. Lorenzo on 09-12-2022 Hematocrit (Bld) [Volume fraction] 35.0 % 37-47 [facility] Laboratory - Chemistry and C hemistry - challengeOrdered By: Yomi Lorenzo on 09-12-2022 CO2 [Moles/Vol] 45.0 mmol/L 21.0-32.0 [facility] Urea nitrogen/Creatinine [Mass ratio] 25.9 mg/mg 10-20 [facility] Laboratory - Hematology and Cell countsOrdered By: Yomi Lorenzo on 09-12-2022 Erythrocyte distribution width (RBC) [Entitic vol] 47.5 fL 35.1-43.9 [facility] Erythrocyte distribution width (RBC) [Ratio] 13.7 % 11.6-14.6 [facility] Immature granulocytes/100 WBC (Bld) 3.900 % 0.0-0.9 [facility] Comment on above: IG% - Immature Granu locytes (promyelocytes, myelocytes and metamyelocytes) > 1% indicates that a LEFT SHIFT is Present. MCH (RBC) [Entitic mass] 26.7 pg 27.0-32.0 [facility] Nucleated RBC/100 WBC (Bld) [Ratio] 0 % 0-5 [facility] MCHC Auto (RBC) [Mass/Vol]Or dered By: Dr. Lorenzo on 09-12-2022 MCHC (RBC) [Mass/Vol] 28.3 g/dL 32-36 [facility] Comment on above: Delta: 30.3 on 09/11 No Panel InformationOrdered By: Yomi Lorenzo on 09-12-2022 Estimated Creatinine Clearance Calc 103.71 ml/min [facility] Estimated GFR (MDRD) Amer 147 mL/min >60 [facility] Comment on above: GFR Calc Estimated GFR (MDRD) Non-Af Amer 122 mL/min >60 [facility] Comment on above: Non- GFR Calc No Panel InformationOrdered By: Dr. Lorenzo on 09-12-2022 26.7 pg 27.0-32.0 [facility] 13.7 % 11.6-14.6 [facility] 47.5 fl 35.1-43.9 [facility] 3.900 % 0.0-0.9 [facility] 0 % 0-5 [facility] 122 mL/min >60 [facility] 147 mL/min >60 [facility] 103.71 ml/min [facility] 25.9 RATIO 10-20 [facility] 45.0 mmol/L 21.0-32.0 [facility] Platelets bldOrdered By: Dr. Lorenzo on 09-12-2022 Platelets (Bld) [#/Vol] 228 10*3/uL 150-450 [facility] Serum or plasma calcium angela urement (mass/volume)Ordered By: Dr. Lorenzo on 09-12-2022 Calcium [Mass/Vol] 9.9 mg/dL 8.5-10.1 [facility] Serum or plasma creatinine m easurement (mass/volume)Ordered By: Dr. Lorenzo on 09-12-2022 Creatinine [Mass/Vol] 0.54 mg/dL 0.55-1.02 [facility] Comment on above: The validity of the calculated GFR & GFRAA in patients over 70 years has not been determined. Clinical correlation is essential. Serum or plasma urea nitroge n measurement (mass/volume)Ordered By: Dr. Lorenzo on 09-12-2022 Urea nitrogen [Mass/Vol] 14 mg/dL 7-18 [facility] Thin prep Papanicolaou smear with manual screeningOrdered By: Dr. Lorenzo on 09-12-2022 Thin prep Papanicolaou smear with manual screening -4 5-15 [facility] Bacteria identified Cx Nom ( U)Ordered By: Dr. Bonilla on 09-10-2022 Culture, urine Escherichia coli [facility] Stool enteric pathogen panel by probe and target amplification methodOrdered By: Dr. Bonilla on 09-10-2022 Gastrointestinal pathogens panel DEMETRI+probe (Stl) [facility] Basophil percentageOrdered B y: Dr. Pascual on 09-09-2022 Basophil percentage 2.8 mg/dL 2.5-4.9 [facility] Laboratory - Chemistry and C hemistry - challengeOrdered By: Leanna Pascual on 09-09-2022 Magnesium [Mass/Vol] 1.7 mg/dL 1.6-2.6 [facility] No Panel InformationOrdered By: Dr. Pascual on 09-09-2022 1.7 mg/dL 1.6-2.6 [facility] Absolute lymphocyte countOrd ered By: Dr. Bonilla on 09-08-2022 Lymphocytes Auto (Unsp spec) [#/Vol] 1.91 10*3/uL 0.83-4.51 [facility] Assessment of wrist artery p atency prior to arterial punctureOrdered By: Dr. Pascual on 09-08-2022 Arterial patency Wrist artery --pre arterial puncture Positive [facility] Base excessOrdered By: Dr. Jennifer alcaraz on 09-08-2022 Base excess Calc (BldV) [Moles/Vol] 18 mmol/L -2-2 [facility] Basophil percentageOrdered B y: Dr. Pascual on 09-08-2022 Basophil percentage 44.7 mmol/L 22-26 [facility] Basophils/100 WBC (Bld) 93 % 95-99 [facility] Basophil percentageOrdered B y: Dr. Corea on 09-08-2022 Basophil percentage 6.3 g/dL 6.4-8.2 [facility] Basophil percentage 0.30 mg/dL 0.20-1.00 [facility] Basophil percentageOrdered B y: Jayme Corea on 09-08-2022 Bilirubin [Mass/Vol] 0.30 mg/dL 0.20-1.00 [facility] Comment on above: For patients on eltr ombopag therapy, use of Dimension Freeman TBIL is not recommended. Protein [Mass/Vol] 6.3 g/dL 6.4-8.2 [facility] Basophil percentageOrdered B y: Dr. Bonilla on 09-08-2022 Basophil percentage 1.4 mmol/L 0.4-2.0 [facility] Basophil percentage >100 SEEN /hpf 0-5 [facility] Comment on above: Microscopic field is filled. Other elements may be obscured. Basophil percentage 145 mg/dL 74-106 [facility] Basophil percentage 138 mmol/L 136-145 [facility] Basophil percentage 4.3 mmol/L 3.5-5.1 [facility] Basophil percentage 91 mmol/L 98-107 [facility] Basophils (Bld) [#/Vol] 12.2 10*3/uL 4.4-11.0 [facility] [facility] Basophils (Bld) [#/Vol] 9.2 10*3/uL 2.0-7.7 [facility] Basophils/100 WBC (Bld) 75.3 % 47-70 [facility] Basophils/100 WBC (Bld) 1.3 % 0-5 [facility] Basophils/100 WBC (Bld) 0.2 % 0-1 [facility] Basophil percentageOrdered B y: Sarah Bonilla on 09-08-2022 Lactate [Moles/Vol] 1.4 mmol/L 0.4-2.0 [facility] Bilirubin Test strip Ql (U)O rdered By: Dr. Bonilla on 09-08-2022 Bilirubin Ql (U) Negative Negative [facility] Blood erythrocytes count (nu mber/volume)Ordered By: Dr. Bnoilla on 09-08-2022 RBC (Bld) [#/Vol] 3.80 10*6/uL 4.2-5.4 [facility] Blood hemoglobin measurement (mass/volume)Ordered By: Dr. Bonilla on 09-08-2022 Hemoglobin (Bld) [Mass/Vol] 10.5 g/dL 12.0-15.0 [facility] Blood lymphocytes/100 leukoc ytesOrdered By: Dr. Bonilla on 09-08-2022 Lymphocytes/100 WBC (Bld) 15.7 % 19-41 [facility] Blood monocytes/100 leukocyt esOrdered By: Dr. Bonilla on 09-08-2022 Monocytes/100 WBC (Bld) 6.6 % 0-10 [facility] Blood platelet mean volumeOr dered By: Dr. Bonilla on 09-08-2022 Platelet mean volume (Bld) [Entitic vol] 11.1 fL 6.2-12.0 [facility] CO2 (BldA) [Partial pressure ]Ordered By: Dr. Pascual on 09-08-2022 CO2 (Bld) [Partial pressure] 100.2 mm[Hg] 35-45 [facility] Culture, urineOrdered By: Nini Bonilla on 09-08-2022 Bacteria identified Cx Nom (U) Escherichia coli [facility] Determination of erythrocyte mean corpuscular volume (MCV)Ordered By: Dr. Bonilla on 09-08-2022 MCV (RBC) [Entitic vol] 94.7 fL 81-99 [facility] Glucose Glucometer (BldC) [M ass/Vol]Ordered By: Dr. Pascual on 09-08-2022 Glucose [Mass/Vol] 133 mg/dL 74-106 [facility] Comment on above: MANAGEMENT OF PATIEN T CARE PER NURSING PROTOCOL HCO3 (BldA) [Moles/Vol]Order ed By: Dr. Corea on 09-08-2022 HCO3 (Bld) [Moles/Vol] 50 mmol/L 22-26 [facility] Hematocrit Auto (Bld) [Volum e fraction]Ordered By: Dr. Bonilla on 09-08-2022 Hematocrit (Bld) [Volume fraction] 36.0 % 37-47 [facility] Influenza virus A and B and SARS-CoV-2 (COVID-19) Ag panel - Upper respiratory specimOrdered By: Sarah Bonilla on 09-08-2022 SARS-CoV-2 (COVID-19) RNA DEMETRI+probe Ql (Resp) [facility] Influenza virus A and B and SARS-CoV-2 (COVID-19) Ag panel - Upper respiratory specimOrdered By: Dr. Bonilla on 09-08-2022 SARS-CoV-2 (COVID-19) RNA DEMETRI+probe Ql (Resp) [facility] Ketones Test strip Ql (U)Ord ered By: Dr. Bonilla on 09-08-2022 Ketones Ql (U) Negative Negative [facility] Laboratory - Chemistry and C hemistry - challengeOrdered By: Jayme Corea on 09-08-2022 ALP [Catalytic activity/Vol] 95 U/L 45-117 [facility] ALT [Catalytic activity/Vol] 13 U/L 13-56 [facility] Globulin (S) [Mass/Vol] 3.7 g/dL 2.2-4.2 [facility] Laboratory - Chemistry and C hemistry - challengeOrdered By: Sarah Bonlila on 09-08-2022 Natriuretic peptide B (Bld) [Mass/Vol] 8.1 pg/mL 0-100 [facility] Laboratory - Microbiology an d Antimicrobial susceptibilityOrdered By: Sarah Bonilla on 09-08-2022 Bacteria identified Cx Nom (Bld) No growth in 5 days. [facility] MCHC Auto (RBC) [Mass/Vol]Or dered By: Dr. Bonilla on 09-08-2022 MCHC (RBC) [Mass/Vol] 29.2 g/dL 32-36 [facility] Mucus LM Ql (Urine sed)Order ed By: Dr. Bonilla on 09-08-2022 Mucus Ql (Urine sed) 0 SEEN /hpf [facility] Nitrite Test strip Ql (U)Ord ered By: Dr. Bonilla on 09-08-2022 Nitrite Ql (U) Negative Negative [facility] No Panel InformationOrdered By: Leanna Pascual on 09-08-2022 Bedside Blood Gas PEEP 10 [facility] Bld Gas Crit Called To/Read Back By Yes [facility] Blood Gas Clinical Comments See comment [facility] Comment on above: AVAPS 450 24\\16 35% EPAP 10 RR18 Blood Gas Notified Whom [facility] Blood Gas Oxygen Percent 35 [facility] Blood Gas Respiration Rate 18 [facility] Blood Gas Sample Site L Radial [facility] Blood Gas Specimen Type [facility] Blood Gas Tidal Volume 450 [facility] Blood Gas Total CO2 48 mmol/L [facility] Oxygen Delivery Device BiPAP [facility] No Panel InformationOrdered By: Dr. Pascual on 09-08-2022 [facility] L Radial [facility] 450 [facility] 18 [facility] 35 [facility] 10 [facility] BROWN [facility] Yes [facility] See comment [facility] 48 mmol/L [facility] BiPAP [facility] No Panel InformationOrdered By: Dr. Corea on 09-08-2022 3.7 g/dL 2.2-4.2 [facility] 95 U/L 45-117 [facility] 13 U/L 13-56 [facility] MAXIM [facility] Nasal Can [facility] 4.0 /min [facility] 0152 [facility] ED MD [facility] Yes [facility] 96.8 mmHg 41-51 [facility] 24 mmol/L -1.0-3.5 [facility] 28 % 50-70 [facility] > 50 mmol/L 23-33 [facility] No Panel InformationOrdered By: Jayme Corea on 09-08-2022 Bed Mix Venous Bld PCO2 at Pat Temp 96.8 mmHg 41-51 [facility] Blood Gas Liter Flow 4.0 /min [facility] Blood Gas Notified Time 0152 [facility] Venous Blood Base Excess 24 mmol/L -1.0-3.5 [facility] Venous Blood Total Carbon Dioxide > 50 mmol/L -33 [facility] No Panel InformationOrdered By: Sarah Bonilla on 09-08-2022 D-Dimer Quantitative (PE/DVT) 0.36 FEU/ug/m 0.27-0.49 [facility] Comment on above: NORMAL D-Dimer level (<0.50) indicates no DVT or PE. Troponin I High Sensitivity 14 pg/mL 3.0-54.0 [facility] Comment on above: Please Note: New Boyd t Units and Gender Specific Reference Ranges. For more information see Policy Stat Procedure [place] High Sensitivity Troponin (TNIH) and attachments. No Panel InformationOrdered By: Dr. Bonilla on 09-08-2022 27.6 pg 27.0-32.0 [facility] 14.1 % 11.6-14.6 [facility] 49.4 fl 35.1-43.9 [facility] 0.900 % 0.0-0.9 [facility] 0 % 0-5 [facility] 0.36 FEU/ug/m 0.27-0.49 [facility] 38 mL/min >60 [facility] 47 mL/min >60 [facility] 38.10 ml/min [facility] 19.0 RATIO 10-20 [facility] 14 pg/mL 3.0-54.0 [facility] 44.0 mmol/L 21.0-32.0 [facility] 8.1 pg/mL 0-100 [facility] Oxygen (BldA) [Partial press ure]Ordered By: Dr. Pascual on 09-08-2022 Oxygen (Bld) [Partial pressure] 81 mmHG 75-100 [facility] PO2 venousOrdered By: Dr. Marisol jaramillo on 09-08-2022 Oxygen (BldV) [Partial pressure] 22 mm[Hg] 25-40 [facility] Platelets bldOrdered By: Dr. Bonilla on 09-08-2022 Platelets (Bld) [#/Vol] 235 10*3/uL 150-450 [facility] Protein Test strip Ql (U)Ord ered By: Dr. Bonilla on 09-08-2022 Protein Ql (U) 100 mg/dl Negative [facility] Serum or plasma albumin angela urement (mass/volume)Ordered By: Dr. Corea on 09-08-2022 Albumin [Mass/Vol] 2.6 g/dL 3.2-5.0 [facility] Serum or plasma albumin/glob ulin mass ratioOrdered By: Dr. Corea on 09-08-2022 Albumin/Globulin [Mass ratio] 0.7 {ratio} 0.9-2.4 [facility] Serum or plasma calcium angela urement (mass/volume)Ordered By: Dr. Bonilla on 09-08-2022 Calcium [Mass/Vol] 10.5 mg/dL 8.5-10.1 [facility] Serum or plasma creatinine m easurement (mass/volume)Ordered By: Dr. Bonilla on 09-08-2022 Creatinine [Mass/Vol] 1.47 mg/dL 0.55-1.02 [facility] Serum or plasma urea nitroge n measurement (mass/volume)Ordered By: Dr. Bonilla on 09-08-2022 Urea nitrogen [Mass/Vol] 28 mg/dL 7-18 [facility] Squamous epithelial cells de tection in urine sediment by light microscopyOrdered By: Dr. Bonilla on 09-08-2022 Epithelial cells.squamous LM Ql (Urine sed) 0 SEEN /hpf 5-10 [facility] Stool enteric pathogen panel by probe and target amplification methodOrdered By: Sarah Bonilla on 09-08-2022 Gastrointestinal pathogens panel DEMETRI+probe (Stl) [facility] Thin prep Papanicolaou smear with manual screeningOrdered By: Dr. Corea on 09-08-2022 Thin prep Papanicolaou smear with manual screening 9 U/L 15-37 [facility] Thin prep Papanicolaou smear with manual screeningOrdered By: Dr. Bonilla on 09-08-2022 Thin prep Papanicolaou smear with manual screening 3 5-15 [facility] Urine blood detectionOrdered By: Dr. Bonilla on 09-08-2022 RBC Ql (U) 150 /ul Negative [facility] RBC Ql (U) 0 SEEN /hpf 0-5 [facility] Urine clarityOrdered By: Dr. Bonilla on 09-08-2022 Clarity (U) Turbid Clear [facility] Urine color determinationOrd ered By: Dr. Bonilla on 09-08-2022 Color (U) Yellow Yellow [facility] Urine glucose detectionOrder ed By: Dr. Bonilla on 09-08-2022 Glucose Ql (U) Normal mg/dl Normal [facility] Urine leukocyte esterase det ection by dipstickOrdered By: Dr. Bonilla on 09-08-2022 Leukocyte esterase Test strip Ql (U) 500 /ul Negative [facility] Urine pHOrdered By: Dr. Catrachita read on 09-08-2022 pH (U) 5.0 [pH] 5.0 - 8.0 [facility] Urine sediment bacteria coun t by microscopy (number/high power field)Ordered By: Dr. Bonilla on 09-08-2022 Bacteria LM.HPF (Urine sed) [#/Area] 4 /[HPF] None Seen [facility] Urine specific gravity measu rementOrdered By: Dr. Bonilla on 09-08-2022 Specific gravity (U) [Rel density] 1.020 1.002-1.030 [facility] Urobilinogen Auto test strip Ql (U)Ordered By: Dr. Bonilla on 09-08-2022 Urobilinogen Ql (U) Normal mg/dl Normal [facility] Vital signsOrdered By: Jayme Corea on 09-08-2022 Oxygen saturation in Blood 28 % 50-70 [facility] pH measurementOrdered By: Dr Luis E Pascual on 09-08-2022 pH (Unsp spec) 7.26 [pH] 7.35-7.45 [facility] pH measurementOrdered By: Dr Luis E Corea on 09-08-2022 pH (Unsp spec) 7.32 [pH] 7.32-7.42 [facility] Basophil percentageOrdered B y: Dr. Patterson on 07-26-2022 Basophil percentage 104 mg/dL 74-106 [facility] Basophil percentage 136 mmol/L 136-145 [facility] Basophil percentage 4.0 mmol/L 3.5-5.1 [facility] Basophil percentage 94 mmol/L 98-107 [facility] No Panel InformationOrdered By: Dr. Patterson on 07-26-2022 123 mL/min >60 [facility] 148 mL/min >60 [facility] 31.6 RATIO 10-20 [facility] 41.0 mmol/L 21.0-32.0 [facility] 5.9 pg/mL 0-100 [facility] 34.3 ng/mL [facility] Serum or plasma calcium angela urement (mass/volume)Ordered By: Dr. Patterson on 07-26-2022 Calcium [Mass/Vol] 9.7 mg/dL 8.5-10.1 [facility] Serum or plasma creatinine m easurement (mass/volume)Ordered By: Dr. Patterson on 07-26-2022 Creatinine [Mass/Vol] 0.54 mg/dL 0.55-1.02 [facility] Serum or plasma urea nitroge n measurement (mass/volume)Ordered By: Dr. Patterson on 07-26-2022 Urea nitrogen [Mass/Vol] 17 mg/dL 7-18 [facility] Thin prep Papanicolaou smear with manual screeningOrdered By: Dr. Pattersno on 07-26-2022 Thin prep Papanicolaou smear with manual screening 1 5-15 [facility] Absolute lymphocyte countOrd ered By: Dr. Patterson on 06-21-2022 Lymphocytes Auto (Unsp spec) [#/Vol] 2.62 10*3/uL 0.83-4.51 [facility] Basophil percentageOrdered B y: Dr. Patterson on 06-21-2022 Basophil percentage 96 mg/dL 74-106 [facility] Basophil percentage 137 mmol/L 136-145 [facility] Basophil percentage 3.9 mmol/L 3.5-5.1 [facility] Basophil percentage 91 mmol/L 98-107 [facility] Basophils (Bld) [#/Vol] 8.5 10*3/uL 4.4-11.0 [facility] Basophils (Bld) [#/Vol] 4.7 10*3/uL 2.0-7.7 [facility] Basophils/100 WBC (Bld) 55.3 % 47-70 [facility] Basophils/100 WBC (Bld) 2.6 % 0-5 [facility] Basophils/100 WBC (Bld) 0.5 % 0-1 [facility] Blood erythrocytes count (nu mber/volume)Ordered By: Dr. Patterson on 06-21-2022 RBC (Bld) [#/Vol] 4.00 10*6/uL 4.2-5.4 [facility] Blood hemoglobin measurement (mass/volume)Ordered By: Dr. Patterson on 06-21-2022 Hemoglobin (Bld) [Mass/Vol] 11.0 g/dL 12.0-15.0 [facility] Blood lymphocytes/100 leukoc ytesOrdered By: Dr. Patterson on 06-21-2022 Lymphocytes/100 WBC (Bld) 31.0 % 19-41 [facility] Blood monocytes/100 leukocyt esOrdered By: Dr. Patterson on 06-21-2022 Monocytes/100 WBC (Bld) 9.3 % 0-10 [facility] Blood platelet mean volumeOr dered By: Dr. Patterson on 06-21-2022 Platelet mean volume (Bld) [Entitic vol] 10.6 fL 6.2-12.0 [facility] Determination of erythrocyte mean corpuscular volume (MCV)Ordered By: Dr. Patterson on 06-21-2022 MCV (RBC) [Entitic vol] 93.8 fL 81-99 [facility] Hematocrit Auto (Bld) [Volum e fraction]Ordered By: Dr. Patterson on 06-21-2022 Hematocrit (Bld) [Volume fraction] 37.5 % 37-47 [facility] MCHC Auto (RBC) [Mass/Vol]Or dered By: Dr. Patterson on 06-21-2022 MCHC (RBC) [Mass/Vol] 29.3 g/dL 32-36 [facility] No Panel InformationOrdered By: Dr. Patterson on 06-21-2022 27.5 pg 27.0-32.0 [facility] 14.9 % 11.6-14.6 [facility] 51.7 fl 35.1-43.9 [facility] 1.300 % 0.0-0.9 [facility] 0 % 0-5 [facility] 116 mL/min >60 [facility] 141 mL/min >60 [facility] 35.5 RATIO 10-20 [facility] 40.0 mmol/L 21.0-32.0 [facility] Platelets bldOrdered By: Dr. Patterson on 06-21-2022 Platelets (Bld) [#/Vol] 218 10*3/uL 150-450 [facility] Serum or plasma C reactive p rotein measurement (mass/volume)Ordered By: Dr. Patterson on 06-21-2022 CRP [Mass/Vol] 10.80 mg/L 0.0-3.0 [facility] Serum or plasma calcium angela urement (mass/volume)Ordered By: Dr. Patterson on 06-21-2022 Calcium [Mass/Vol] 9.7 mg/dL 8.5-10.1 [facility] Serum or plasma creatinine m easurement (mass/volume)Ordered By: Dr. Patterson on 06-21-2022 Creatinine [Mass/Vol] 0.56 mg/dL 0.55-1.02 [facility] Serum or plasma urea nitroge n measurement (mass/volume)Ordered By: Dr. Patterson on 06-21-2022 Urea nitrogen [Mass/Vol] 20 mg/dL 7-18 [facility] Thin prep Papanicolaou smear with manual screeningOrdered By: Dr. Patterson on 06-21-2022 Thin prep Papanicolaou smear with manual screening 6 5-15 [facility] Absolute lymphocyte countOrd ered By: Dr. Patterson on 06-19-2022 Lymphocytes Auto (Unsp spec) [#/Vol] 2.84 10*3/uL 0.83-4.51 [facility] Basophil percentageOrdered B y: Dr. Patterson on 06-19-2022 Basophil percentage 96 mg/dL 74-106 [facility] Basophil percentage 138 mmol/L 136-145 [facility] Basophil percentage 4.0 mmol/L 3.5-5.1 [facility] Basophil percentage 92 mmol/L 98-107 [facility] Basophils (Bld) [#/Vol] 9.5 10*3/uL 4.4-11.0 [facility] Basophils (Bld) [#/Vol] 5.5 10*3/uL 2.0-7.7 [facility] Basophils/100 WBC (Bld) 57.8 % 47-70 [facility] Basophils/100 WBC (Bld) 1.7 % 0-5 [facility] Basophils/100 WBC (Bld) 0.3 % 0-1 [facility] Blood erythrocytes count (nu mber/volume)Ordered By: Dr. Patterson on 06-19-2022 RBC (Bld) [#/Vol] 4.00 10*6/uL 4.2-5.4 [facility] Blood hemoglobin measurement (mass/volume)Ordered By: Dr. Patterson on 06-19-2022 Hemoglobin (Bld) [Mass/Vol] 10.7 g/dL 12.0-15.0 [facility] Blood lymphocytes/100 leukoc ytesOrdered By: Dr. Patterson on 06-19-2022 Lymphocytes/100 WBC (Bld) 29.9 % 19-41 [facility] Blood monocytes/100 leukocyt esOrdered By: Dr. Patterson on 06-19-2022 Monocytes/100 WBC (Bld) 8.9 % 0-10 [facility] Blood platelet mean volumeOr dered By: Dr. Patterson on 06-19-2022 Platelet mean volume (Bld) [Entitic vol] 10.9 fL 6.2-12.0 [facility] Determination of erythrocyte mean corpuscular volume (MCV)Ordered By: Dr. Patterson on 06-19-2022 MCV (RBC) [Entitic vol] 93.8 fL 81-99 [facility] Hematocrit Auto (Bld) [Volum e fraction]Ordered By: Dr. Patterson on 06-19-2022 Hematocrit (Bld) [Volume fraction] 37.5 % 37-47 [facility] MCHC Auto (RBC) [Mass/Vol]Or dered By: Dr. Patterson on 06-19-2022 MCHC (RBC) [Mass/Vol] 28.5 g/dL 32-36 [facility] No Panel InformationOrdered By: Dr. Patterson on 06-19-2022 26.8 pg 27.0-32.0 [facility] 14.6 % 11.6-14.6 [facility] 50.2 fl 35.1-43.9 [facility] 1.400 % 0.0-0.9 [facility] 0 % 0-5 [facility] 123 mL/min >60 [facility] 149 mL/min >60 [facility] 44.9 RATIO 10-20 [facility] 40.0 mmol/L 21.0-32.0 [facility] Platelets bldOrdered By: Dr. Patterson on 06-19-2022 Platelets (Bld) [#/Vol] 224 10*3/uL 150-450 [facility] Serum or plasma C reactive p rotein measurement (mass/volume)Ordered By: Dr. Patterson on 06-19-2022 CRP [Mass/Vol] 6.25 mg/L 0.0-3.0 [facility] Serum or plasma calcium angela urement (mass/volume)Ordered By: Dr. Patterson on 06-19-2022 Calcium [Mass/Vol] 9.5 mg/dL 8.5-10.1 [facility] Serum or plasma creatinine m easurement (mass/volume)Ordered By: Dr. Patterson on 06-19-2022 Creatinine [Mass/Vol] 0.54 mg/dL 0.55-1.02 [facility] Serum or plasma urea nitroge n measurement (mass/volume)Ordered By: Dr. Patterson on 06-19-2022 Urea nitrogen [Mass/Vol] 24 mg/dL 7-18 [facility] Thin prep Papanicolaou smear with manual screeningOrdered By: Dr. Patterson on 06-19-2022 Thin prep Papanicolaou smear with manual screening 6 5-15 [facility] Absolute lymphocyte countOrd ered By: Dr. Patterson on 06-09-2022 Lymphocytes Auto (Unsp spec) [#/Vol] 3.15 10*3/uL 0.83-4.51 [facility] Basophil percentageOrdered B y: Dr. Patterson on 06-09-2022 Basophil percentage Not Reportable [facility] Basophils (Bld) [#/Vol] 19.7 10*3/uL 4.4-11.0 [facility] Basophils (Bld) [#/Vol] 14.6 10*3/uL 2.0-7.7 [facility] Blood band neutrophil count as percentage of total leukocytesOrdered By: Dr. Patterson on 06-09-2022 Band form neutrophils/100 WBC (Bld) 1 % 0-5 [facility] Blood eosinophils/100 leukoc ytesOrdered By: Dr. Patterson on 06-09-2022 Eosinophils/100 WBC (Bld) 1 % 0-5 [facility] Blood erythrocytes count (nu mber/volume)Ordered By: Dr. Patterson on 06-09-2022 RBC (Bld) [#/Vol] 4.19 10*6/uL 4.2-5.4 [facility] Blood hemoglobin measurement (mass/volume)Ordered By: Dr. Patterson on 06-09-2022 Hemoglobin (Bld) [Mass/Vol] 11.2 g/dL 12.0-15.0 [facility] Blood lymphocytes/100 leukoc ytesOrdered By: Dr. Patterson on 06-09-2022 Lymphocytes/100 WBC (Bld) 16 % 19-41 [facility] Blood monocytes/100 leukocyt esOrdered By: Dr. Patterson on 06-09-2022 Monocytes/100 WBC (Bld) 5 % 0-10 [facility] Blood platelet adequacy dete ction by light microscopyOrdered By: Dr. Patterson on 06-09-2022 Platelets LM Ql (Bld) ADEQUATE ADEQ [facility] Blood platelet mean volumeOr dered By: Dr. Patterson on 06-09-2022 Platelet mean volume (Bld) [Entitic vol] 10.5 fL 6.2-12.0 [facility] Blood segmented neutrophils/ [address]: [address] Patterson on 06-09-2022 Segmented neutrophils/100 WBC (Bld) 73 % 47-70 [facility] Determination of erythrocyte mean corpuscular volume (MCV)Ordered By: Dr. Patterson on 06-09-2022 MCV (RBC) [Entitic vol] 90.2 fL 81-99 [facility] Hematocrit Auto (Bld) [Volum e fraction]Ordered By: Dr. Patterson on 06-09-2022 Hematocrit (Bld) [Volume fraction] 37.8 % 37-47 [facility] MCHC Auto (RBC) [Mass/Vol]Or dered By: Dr. Patterson on 06-09-2022 MCHC (RBC) [Mass/Vol] 29.6 g/dL 32-36 [facility] No Panel InformationOrdered By: Dr. Patterson on 06-09-2022 26.7 pg 27.0-32.0 [facility] 13.6 % 11.6-14.6 [facility] 44.5 fl 35.1-43.9 [facility] 4 % 0-0 [facility] Platelets bldOrdered By: Dr. Patterson on 06-09-2022 Platelets (Bld) [#/Vol] 296 10*3/uL 150-450 [facility] RBC morphologyOrdered By: Dr Luis E Patterson on 06-09-2022 RBC morphology finding Nom (Bld) NORM C+C NORMAL NORM C&C [facility] Review by pathologistOrdered By: Dr. Patterson on 06-09-2022 Pathologist review Jean Carlos (Unsp spec) [Interp] Reviewed [facility] Total cell countOrdered By: Dr. Patterson on 06-09-2022 Cells counted Molgen (Bld/Tiss) [#] 100 MANUAL DIFF [facility] Absolute lymphocyte countOrd ered By: Dr. Patterson on 06-06-2022 Lymphocytes Auto (Unsp spec) [#/Vol] 4.69 10*3/uL 0.83-4.51 [facility] Basophil percentageOrdered B y: Dr. Patterson on 06-06-2022 Basophil percentage Not Reportable [facility] Basophil percentage 78 mg/dL 74-106 [facility] Basophil percentage 138 mmol/L 136-145 [facility] Basophil percentage 3.5 mmol/L 3.5-5.1 [facility] Basophil percentage 95 mmol/L 98-107 [facility] Basophils (Bld) [#/Vol] 20.4 10*3/uL 4.4-11.0 [facility] Basophils (Bld) [#/Vol] 12.9 10*3/uL 2.0-7.7 [facility] Blood eosinophils/100 leukoc ytesOrdered By: Dr. Patterson on 06-06-2022 Eosinophils/100 WBC (Bld) 1 % 0-5 [facility] Blood erythrocytes count (nu mber/volume)Ordered By: Dr. Patterson on 06-06-2022 RBC (Bld) [#/Vol] 3.94 10*6/uL 4.2-5.4 [facility] Blood hemoglobin measurement (mass/volume)Ordered By: Dr. Patterson on 06-06-2022 Hemoglobin (Bld) [Mass/Vol] 10.7 g/dL 12.0-15.0 [facility] Blood lymphocytes/100 leukoc ytesOrdered By: Dr. Patterson on 06-06-2022 Lymphocytes/100 WBC (Bld) 23 % 19-41 [facility] Blood metamyelocytes/100 robin kocytesOrdered By: Dr. Patterson on 06-06-2022 Metamyelocytes/100 WBC (Bld) 2 % 0-1 [facility] Blood monocytes/100 leukocyt esOrdered By: Dr. Patterson on 06-06-2022 Monocytes/100 WBC (Bld) 10 % 0-10 [facility] Blood platelet adequacy dete ction by light microscopyOrdered By: Dr. Patterson on 06-06-2022 Platelets LM Ql (Bld) ADEQUATE ADEQ [facility] Blood platelet mean volumeOr dered By: Dr. Patterson on 06-06-2022 Platelet mean volume (Bld) [Entitic vol] 10.9 fL 6.2-12.0 [facility] Blood segmented neutrophils/ [address]: [address] Patterson on 06-06-2022 Segmented neutrophils/100 WBC (Bld) 63 % 47-70 [facility] Determination of erythrocyte mean corpuscular volume (MCV)Ordered By: Dr. Patterson on 06-06-2022 MCV (RBC) [Entitic vol] 89.8 fL 81-99 [facility] Hematocrit Auto (Bld) [Volum e fraction]Ordered By: Dr. Patterson on 06-06-2022 Hematocrit (Bld) [Volume fraction] 35.4 % 37-47 [facility] MCHC Auto (RBC) [Mass/Vol]Or dered By: Dr. Patterson on 06-06-2022 MCHC (RBC) [Mass/Vol] 30.2 g/dL 32-36 [facility] No Panel InformationOrdered By: Dr. Patterson on 06-06-2022 27.2 pg 27.0-32.0 [facility] 13.7 % 11.6-14.6 [facility] 44.7 fl 35.1-43.9 [facility] 1 % 0-0 [facility] 116 mL/min >60 [facility] 140 mL/min >60 [facility] 47.8 RATIO 10-20 [facility] 41.0 mmol/L 21.0-32.0 [facility] Platelets bldOrdered By: Dr. Patterson on 06-06-2022 Platelets (Bld) [#/Vol] 278 10*3/uL 150-450 [facility] RBC morphologyOrdered By: Dr Luis E Patterson on 06-06-2022 RBC morphology finding Nom (Bld) NORM C+C NORMAL NORM C&C [facility] Review by pathologistOrdered By: Dr. Patterson on 06-06-2022 Pathologist review Jean Carlos (Unsp spec) [Interp] Reviewed [facility] Serum or plasma calcium angela urement (mass/volume)Ordered By: Dr. Patterson on 06-06-2022 Calcium [Mass/Vol] 9.3 mg/dL 8.5-10.1 [facility] Serum or plasma creatinine m easurement (mass/volume)Ordered By: Dr. Patterson on 06-06-2022 Creatinine [Mass/Vol] 0.56 mg/dL 0.55-1.02 [facility] Serum or plasma urea nitroge n measurement (mass/volume)Ordered By: Dr. Patterson on 06-06-2022 Urea nitrogen [Mass/Vol] 27 mg/dL 7-18 [facility] Thin prep Papanicolaou smear with manual screeningOrdered By: Dr. Patterson on 06-06-2022 Thin prep Papanicolaou smear with manual screening 2 5-15 [facility] Total cell countOrdered By: Dr. Patterson on 06-06-2022 Cells counted Molgen (Bld/Tiss) [#] 100 MANUAL DIFF [facility] C. difficile Ql (Stl)Ordered By: Dr. Patterson on 06-03-2022 Stool Clostridium difficile detection Toxigenic C. difficile [facility] Clostridium difficile detect ion by polymerase chain reactionOrdered By: Dr. Patterson on 06-03-2022 C. difficile DNA DEMETRI+probe Ql (Unsp spec) [facility] No Panel InformationOrdered By: Dr. Lamar on 06-02-2022 No growth in 5 days. [facility] Basophil percentageOrdered B y: Dr. Patterson on 05-31-2022 Basophil percentage 93 mg/dL 74-106 [facility] Basophil percentage 138 mmol/L 136-145 [facility] Basophil percentage 4.1 mmol/L 3.5-5.1 [facility] Basophil percentage 96 mmol/L 98-107 [facility] Basophils (Bld) [#/Vol] 18.3 10*3/uL 4.4-11.0 [facility] Blood erythrocytes count (nu mber/volume)Ordered By: Dr. Patterson on 05-31-2022 RBC (Bld) [#/Vol] 3.65 10*6/uL 4.2-5.4 [facility] Blood hemoglobin measurement (mass/volume)Ordered By: Dr. Patterson on 05-31-2022 Hemoglobin (Bld) [Mass/Vol] 9.9 g/dL 12.0-15.0 [facility] Blood platelet mean volumeOr dered By: Dr. Patterson on 05-31-2022 Platelet mean volume (Bld) [Entitic vol] 11.4 fL 6.2-12.0 [facility] Determination of erythrocyte mean corpuscular volume (MCV)Ordered By: Dr. Patterson on 05-31-2022 MCV (RBC) [Entitic vol] 89.3 fL 81-99 [facility] Hematocrit Auto (Bld) [Volum e fraction]Ordered By: Dr. Patterson on 05-31-2022 Hematocrit (Bld) [Volume fraction] 32.6 % 37-47 [facility] MCHC Auto (RBC) [Mass/Vol]Or dered By: Dr. Patterson on 05-31-2022 MCHC (RBC) [Mass/Vol] 30.4 g/dL 32-36 [facility] No Panel InformationOrdered By: Dr. Patterson on 05-31-2022 27.1 pg 27.0-32.0 [facility] 14.1 % 11.6-14.6 [facility] 46.1 fl 35.1-43.9 [facility] 64 mL/min >60 [facility] 77 mL/min >60 [facility] 32.6 RATIO 10-20 [facility] 36.0 mmol/L 21.0-32.0 [facility] Platelets bldOrdered By: Dr. Patterson on 05-31-2022 Platelets (Bld) [#/Vol] 307 10*3/uL 150-450 [facility] Serum or plasma calcium angela urement (mass/volume)Ordered By: Dr. Patterson on 05-31-2022 Calcium [Mass/Vol] 10.1 mg/dL 8.5-10.1 [facility] Serum or plasma creatinine m easurement (mass/volume)Ordered By: Dr. Patterson on 05-31-2022 Creatinine [Mass/Vol] 0.95 mg/dL 0.55-1.02 [facility] Serum or plasma urea nitroge n measurement (mass/volume)Ordered By: Dr. Patterson on 05-31-2022 Urea nitrogen [Mass/Vol] 31 mg/dL 7-18 [facility] Thin prep Papanicolaou smear with manual screeningOrdered By: Dr. Patterson on 05-31-2022 Thin prep Papanicolaou smear with manual screening 6 5-15 [facility] Absolute lymphocyte countOrd ered By: Dr. Perez on 05-29-2022 Lymphocytes Auto (Unsp spec) [#/Vol] 0.90 10*3/uL 0.83-4.51 [facility] Basophil percentageOrdered B y: Dr. Perez on 05-29-2022 Basophil percentage 156 mg/dL 74-106 [facility] Basophil percentage 6.3 g/dL 6.4-8.2 [facility] Basophil percentage 0.30 mg/dL 0.20-1.00 [facility] Basophil percentage 138 mmol/L 136-145 [facility] Basophil percentage 5.1 mmol/L 3.5-5.1 [facility] Basophil percentage 99 mmol/L 98-107 [facility] Basophils (Bld) [#/Vol] 14.7 10*3/uL 4.4-11.0 [facility] Basophils (Bld) [#/Vol] 13.3 10*3/uL 2.0-7.7 [facility] Basophils/100 WBC (Bld) 90.0 % 47-70 [facility] Basophils/100 WBC (Bld) 0.1 % 0-5 [facility] Basophils/100 WBC (Bld) 0.3 % 0-1 [facility] Blood erythrocytes count (nu mber/volume)Ordered By: Dr. Perez on 05-29-2022 RBC (Bld) [#/Vol] 3.46 10*6/uL 4.2-5.4 [facility] Blood hemoglobin measurement (mass/volume)Ordered By: Dr. Perez on 05-29-2022 Hemoglobin (Bld) [Mass/Vol] 9.3 g/dL 12.0-15.0 [facility] Blood lymphocytes/100 leukoc ytesOrdered By: Dr. Perez on 05-29-2022 Lymphocytes/100 WBC (Bld) 6.1 % 19-41 [facility] Blood monocytes/100 leukocyt esOrdered By: Dr. Perez on 05-29-2022 Monocytes/100 WBC (Bld) 1.7 % 0-10 [facility] Blood platelet mean volumeOr dered By: Dr. Perez on 05-29-2022 Platelet mean volume (Bld) [Entitic vol] 11.7 fL 6.2-12.0 [facility] Determination of erythrocyte mean corpuscular volume (MCV)Ordered By: Dr. Perez on 05-29-2022 MCV (RBC) [Entitic vol] 91.9 fL 81-99 [facility] Hematocrit Auto (Bld) [Volum e fraction]Ordered By: Dr. Perez on 05-29-2022 Hematocrit (Bld) [Volume fraction] 31.8 % 37-47 [facility] Laboratory - Microbiology an d Antimicrobial susceptibilityOrdered By: Dr. Perez on 05-29-2022 Respiratory pathogens DNA and RNA 12b panel DEMETRI+probe (Unsp spec) [facility] MCHC Auto (RBC) [Mass/Vol]Or dered By: Dr. Perez on 05-29-2022 MCHC (RBC) [Mass/Vol] 29.2 g/dL 32-36 [facility] No Panel InformationOrdered By: Dr. Perez on 05-29-2022 26.9 pg 27.0-32.0 [facility] 13.7 % 11.6-14.6 [facility] 45.8 fl 35.1-43.9 [facility] 1.800 % 0.0-0.9 [facility] 0 % 0-5 [facility] 82 mL/min >60 [facility] 100 mL/min >60 [facility] 73.69 ml/min [facility] 30.3 RATIO 10-20 [facility] 4.1 g/dL 2.2-4.2 [facility] 106 U/L 45-117 [facility] 10 U/L 13-56 [facility] 33.0 mmol/L 21.0-32.0 [facility] Platelets bldOrdered By: Dr. Perez on 05-29-2022 Platelets (Bld) [#/Vol] 253 10*3/uL 150-450 [facility] Serum or plasma albumin angela urement (mass/volume)Ordered By: Dr. Perez on 05-29-2022 Albumin [Mass/Vol] 2.2 g/dL 3.2-5.0 [facility] Serum or plasma albumin/glob ulin mass ratioOrdered By: Dr. Perez on 05-29-2022 Albumin/Globulin [Mass ratio] 0.5 {ratio} 0.9-2.4 [facility] Serum or plasma calcium angela urement (mass/volume)Ordered By: Dr. Perez on 05-29-2022 Calcium [Mass/Vol] 9.7 mg/dL 8.5-10.1 [facility] Serum or plasma creatinine m easurement (mass/volume)Ordered By: Dr. Perez on 05-29-2022 Creatinine [Mass/Vol] 0.76 mg/dL 0.55-1.02 [facility] Serum or plasma urea nitroge n measurement (mass/volume)Ordered By: Dr. Perez on 05-29-2022 Urea nitrogen [Mass/Vol] 23 mg/dL 7-18 [facility] Thin prep Papanicolaou smear with manual screeningOrdered By: Dr. Perez on 05-29-2022 Thin prep Papanicolaou smear with manual screening 9 U/L 15-37 [facility] Thin prep Papanicolaou smear with manual screening 6 5-15 [facility] Urine Legionella pneumophila antigen detectionOrdered By: Dr. Perez on 05-29-2022 L. pneumophila Ag Ql (U) [facility] Absolute lymphocyte countOrd ered By: Dr. Lamar on 05-28-2022 Lymphocytes Auto (Unsp spec) [#/Vol] 2.16 10*3/uL 0.83-4.51 [facility] Assessment of wrist artery p atency prior to arterial punctureOrdered By: Dr. Lamar on 05-28-2022 Arterial patency Wrist artery --pre arterial puncture Positive [facility] Base excessOrdered By: Dr. Sondra plata on 05-28-2022 Base excess Calc (BldV) [Moles/Vol] 12 mmol/L -2-2 [facility] Basophil percentageOrdered B y: Dr. Lamar on 05-28-2022 Basophil percentage 0 SEEN /hpf 0-5 [facility] Basophil percentage 39.5 mmol/L 22-26 [facility] Basophils/100 WBC (Bld) 92 % 95-99 [facility] Basophil percentage 0.6 mmol/L 0.4-2.0 [facility] Lactate [Moles/Vol] 0.6 mmol/L 0.4-2.0 [facility] Basophils/100 WBC (Bld) 0.2 % 0-1 [facility] Bilirubin [Mass/Vol] 0.20 mg/dL 0.20-1.00 [facility] Comment on above: For patients on eltr ombopag therapy, use of Dimension Freeman TBIL is not recommended. Chloride [Moles/Vol] 101 mmol/L 98-107 [facility] Eosinophils/100 WBC (Bld) 1.1 % 0-5 [facility] Glucose [Mass/Vol] 123 mg/dL 74-106 [facility] Comment on above: Fasting Glucose resu lt from 100 to 125 mg/dL suggests IMPAIRED HOMEOSTASIS per A.D.A. criteria. Neutrophils (Bld) [#/Vol] 11.2 10*3/uL 2.0-7.7 [facility] Neutrophils/100 WBC (Bld) 75.4 % 47-70 [facility] Potassium [Moles/Vol] 4.7 mmol/L 3.5-5.1 [facility] Protein [Mass/Vol] 6.7 g/dL 6.4-8.2 [facility] Sodium [Moles/Vol] 140 mmol/L 136-145 [facility] WBC (Bld) [#/Vol] 14.9 10*3/uL 4.4-11.0 [facility] Bilirubin Test strip Ql (U)O rdered By: Dr. Lamar on 05-28-2022 Bilirubin Ql (U) Negative Negative [facility] Blood erythrocytes count (nu mber/volume)Ordered By: Dr. Lamar on 05-28-2022 RBC (Bld) [#/Vol] 3.68 10*6/uL 4.2-5.4 [facility] Blood hemoglobin measurement (mass/volume)Ordered By: Dr. Lamar on 05-28-2022 Hemoglobin (Bld) [Mass/Vol] 9.8 g/dL 12.0-15.0 [facility] Blood lymphocytes/100 leukoc ytesOrdered By: Dr. Lamar on 05-28-2022 Lymphocytes/100 WBC (Bld) 14.5 % 19-41 [facility] Blood monocytes/100 leukocyt esOrdered By: Dr. Lamar on 05-28-2022 Monocytes/100 WBC (Bld) 7.9 % 0-10 [facility] Blood platelet mean volumeOr dered By: Dr. Lamar on 05-28-2022 Platelet mean volume (Bld) [Entitic vol] 11.4 fL 6.2-12.0 [facility] CO2 (BldA) [Partial pressure ]Ordered By: Dr. Lamar on 05-28-2022 CO2 (Bld) [Partial pressure] 94.2 mm[Hg] 35-45 [facility] Determination of erythrocyte mean corpuscular volume (MCV)Ordered By: Dr. Lamar on 05-28-2022 MCV (RBC) [Entitic vol] 92.1 fL 81-99 [facility] Hematocrit Auto (Bld) [Volum e fraction]Ordered By: Dr. Lamar on 05-28-2022 Hematocrit (Bld) [Volume fraction] 33.9 % 37-47 [facility] INR in Blood by Coagulation assayOrdered By: Dr. Lamar on 05-28-2022 INR Coag (Bld) [Relative time] 1.0 {INR} [facility] Influenza virus A and B and SARS-CoV-2 (COVID-19) Ag panel - Upper respiratory specimOrdered By: Dr. Lamar on 05-28-2022 SARS-CoV-2 (COVID-19) RNA DEMETRI+probe Ql (Resp) [facility] Ketones Test strip Ql (U)Ord ered By: Dr. Lamar on 05-28-2022 Ketones Ql (U) Negative Negative [facility] Laboratory - Chemistry and C hemistry - challengeOrdered By: Dr. Lamar on 05-28-2022 Natriuretic peptide B (Bld) [Mass/Vol] 25.3 pg/mL 0-100 [facility] ALP [Catalytic activity/Vol] 96 U/L 45-117 [facility] ALT [Catalytic activity/Vol] 10 U/L 13-56 [facility] CO2 [Moles/Vol] 37.0 mmol/L 21.0-32.0 [facility] Globulin (S) [Mass/Vol] 4.3 g/dL 2.2-4.2 [facility] Urea nitrogen/Creatinine [Mass ratio] 25.7 mg/mg 10-20 [facility] Laboratory - CoagulationOrde red By: Dr. Lamar on 05-28-2022 aPTT Coag (Bld) [Time] 28.8 s 24.1-36.2 [facility] PT Coag (PPP) [Time] 13.3 s 11.7-14.9 [facility] Laboratory - Hematology and Cell countsOrdered By: Dr. Lamar on 05-28-2022 Erythrocyte distribution width (RBC) [Entitic vol] 47.3 fL 35.1-43.9 [facility] Erythrocyte distribution width (RBC) [Ratio] 13.9 % 11.6-14.6 [facility] Immature granulocytes/100 WBC (Bld) 0.900 % 0.0-0.9 [facility] Comment on above: IG% - Immature Granu locytes (promyelocytes, myelocytes and metamyelocytes) > 1% indicates that a LEFT SHIFT is Present. MCH (RBC) [Entitic mass] 26.6 pg 27.0-32.0 [facility] Nucleated RBC/100 WBC (Bld) [Ratio] 0 % 0-5 [facility] MCHC Auto (RBC) [Mass/Vol]Or dered By: Dr. Lamar on 05-28-2022 MCHC (RBC) [Mass/Vol] 28.9 g/dL 32-36 [facility] Mucus LM Ql (Urine sed)Order ed By: Dr. Lamar on 05-28-2022 Mucus Ql (Urine sed) 0 SEEN /hpf [facility] Nitrite Test strip Ql (U)Ord ered By: Dr. Lamar on 05-28-2022 Nitrite Ql (U) Negative Negative [facility] No Panel InformationOrdered By: Dr. Lamar on 05-28-2022 Troponin I High Sensitivity 11 pg/mL 3.0-54.0 [facility] Comment on above: Please Note: New Boyd t Units and Gender Specific Reference Ranges. For more information see Policy Stat Procedure Freeman High Sensitivity Troponin (TNIH) and attachments. 11 pg/mL 3.0-54.0 [facility] 13.3 SECONDS 11.7-14.9 [facility] 28.8 Seconds 24.1-36.2 [facility] 25.3 pg/mL 0-100 [facility] Bld Gas Crit Called To/Read Back By Yes [facility] Blood Gas Liter Flow 5.0 /min [facility] Blood Gas Notified [facility] Blood Gas Sample Site L [facility] Blood Gas Specimen Type [facility] Blood Gas Total CO2 42 mmol/L [facility] Oxygen Delivery Device Cannula [facility] ART [facility] L [facility] Cannula [facility] 5.0 /min [facility] Yes [facility] 42 mmol/L [facility] Estimated Creatinine Clearance Calc 51.38 ml/min [facility] Estimated GFR (MDRD) Amer 66 mL/min >60 [facility] Comment on above: GFR Calc Estimated GFR (MDRD) Non-Af Amer 54 mL/min >60 [facility] Comment on above: Non- GFR Calc Oxygen (BldA) [Partial press ure]Ordered By: Dr. Lamar on 05-28-2022 Oxygen (Bld) [Partial pressure] 80 mmHG 75-100 [facility] Platelets bldOrdered By: Dr. Lamar on 05-28-2022 Platelets (Bld) [#/Vol] 287 10*3/uL 150-450 [facility] Protein Test strip Ql (U)Ord ered By: Dr. Lamar on 05-28-2022 Protein Ql (U) 30 mg/dl Negative [facility] Serum or plasma albumin angela urement (mass/volume)Ordered By: Dr. Lamar on 05-28-2022 Albumin [Mass/Vol] 2.4 g/dL 3.2-5.0 [facility] Serum or plasma albumin/glob ulin mass ratioOrdered By: Dr. Lamar on 05-28-2022 Albumin/Globulin [Mass ratio] 0.6 {ratio} 0.9-2.4 [facility] Serum or plasma calcium angela urement (mass/volume)Ordered By: Dr. Lamar on 05-28-2022 Calcium [Mass/Vol] 9.9 mg/dL 8.5-10.1 [facility] Serum or plasma creatinine m easurement (mass/volume)Ordered By: Dr. Lamar on 05-28-2022 Creatinine [Mass/Vol] 1.09 mg/dL 0.55-1.02 [facility] Comment on above: The validity of the calculated GFR & GFRAA in patients over 70 years has not been determined. Clinical correlation is essential. Serum or plasma urea nitroge n measurement (mass/volume)Ordered By: Dr. Lamar on 05-28-2022 Urea nitrogen [Mass/Vol] 28 mg/dL 7-18 [facility] Squamous epithelial cells de tection in urine sediment by light microscopyOrdered By: Dr. Lamar on 05-28-2022 Epithelial cells.squamous LM Ql (Urine sed) 0 SEEN /hpf 5-10 [facility] Thin prep Papanicolaou smear with manual screeningOrdered By: Dr. Lamar on 05-28-2022 Thin prep Papanicolaou smear with manual screening 6 U/L 15-37 [facility] Thin prep Papanicolaou smear with manual screening 2 5-15 [facility] Urine blood detectionOrdered By: Dr. Lamar on 05-28-2022 RBC Ql (U) Negative Negative [facility] RBC Ql (U) 0 SEEN /hpf 0-5 [facility] Urine clarityOrdered By: Dr. Lamar on 05-28-2022 Clarity (U) Clear Clear [facility] Urine color determinationOrd ered By: Dr. Lamar on 05-28-2022 Color (U) Yellow Yellow [facility] Urine glucose detectionOrder ed By: Dr. Lamar on 05-28-2022 Glucose Ql (U) Normal mg/dl Normal [facility] Urine leukocyte esterase det ection by dipstickOrdered By: Dr. Lamar on 05-28-2022 Leukocyte esterase Test strip Ql (U) Negative Negative [facility] Urine pHOrdered By: Dr. Kristina beasley on 05-28-2022 pH (U) 5.0 [pH] 5.0 - 8.0 [facility] Urine sediment bacteria coun t by microscopy (number/high power field)Ordered By: Dr. Lamar on 05-28-2022 Bacteria LM.HPF (Urine sed) [#/Area] 0 /[HPF] None Seen [facility] Urine sediment fine granular cast count by microscopy (number/low power field)Ordered By: Dr. Lamar on 05-28-2022 Fine Granular Casts LM.LPF (Urine sed) [#/Area] 5-10 SEEN /lpf 0-5 [facility] Urine specific gravity measu rementOrdered By: Dr. Lamar on 05-28-2022 Specific gravity (U) [Rel density] 1.025 1.002-1.030 [facility] Urobilinogen Auto test strip Ql (U)Ordered By: Dr. Lamar on 05-28-2022 Urobilinogen Ql (U) Normal mg/dl Normal [facility] pH measurementOrdered By: Dr Luis E Lamar on 05-28-2022 pH (Unsp spec) 7.23 [pH] 7.35-7.45 [facility] Absolute lymphocyte countOrd ered By: Dr. Patterson on 05-26-2022 Lymphocytes Auto (Unsp spec) [#/Vol] 2.42 10*3/uL 0.83-4.51 [facility] Basophil percentageOrdered B y: Dr. Patterson on 05-26-2022 Basophil percentage 118 mg/dL 74-106 [facility] Basophil percentage 137 mmol/L 136-145 [facility] Basophil percentage 4.1 mmol/L 3.5-5.1 [facility] Basophil percentage 97 mmol/L 98-107 [facility] Basophils (Bld) [#/Vol] 16.1 10*3/uL 4.4-11.0 [facility] Basophils (Bld) [#/Vol] 12.1 10*3/uL 2.0-7.7 [facility] Basophils/100 WBC (Bld) 0.2 % 0-1 [facility] Basophils/100 WBC (Bld) 75.3 % 47-70 [facility] Basophils/100 WBC (Bld) 1.8 % 0-5 [facility] Chloride [Moles/Vol] 97 mmol/L 98-107 [facility] Eosinophils/100 WBC (Bld) 1.8 % 0-5 [facility] Glucose [Mass/Vol] 118 mg/dL 74-106 [facility] Comment on above: Fasting Glucose resu lt from 100 to 125 mg/dL suggests IMPAIRED HOMEOSTASIS per A.D.A. criteria. Neutrophils (Bld) [#/Vol] 12.1 10*3/uL 2.0-7.7 [facility] Neutrophils/100 WBC (Bld) 75.3 % 47-70 [facility] Potassium [Moles/Vol] 4.1 mmol/L 3.5-5.1 [facility] Sodium [Moles/Vol] 137 mmol/L 136-145 [facility] WBC (Bld) [#/Vol] 16.1 10*3/uL 4.4-11.0 [facility] Blood erythrocytes count (nu mber/volume)Ordered By: Dr. Patterson on 05-26-2022 RBC (Bld) [#/Vol] 3.57 10*6/uL 4.2-5.4 [facility] Blood hemoglobin measurement (mass/volume)Ordered By: Dr. Patterson on 05-26-2022 Hemoglobin (Bld) [Mass/Vol] 9.8 g/dL 12.0-15.0 [facility] Blood lymphocytes/100 leukoc ytesOrdered By: Dr. Patterson on 05-26-2022 Lymphocytes/100 WBC (Bld) 15.0 % 19-41 [facility] Blood monocytes/100 leukocyt esOrdered By: Dr. Patterson on 05-26-2022 Monocytes/100 WBC (Bld) 6.9 % 0-10 [facility] Blood platelet mean volumeOr dered By: Dr. Patterson on 05-26-2022 Platelet mean volume (Bld) [Entitic vol] 11.6 fL 6.2-12.0 [facility] Determination of erythrocyte mean corpuscular volume (MCV)Ordered By: Dr. Patterson on 05-26-2022 MCV (RBC) [Entitic vol] 92.7 fL 81-99 [facility] Hematocrit Auto (Bld) [Volum e fraction]Ordered By: Dr. Patterson on 05-26-2022 Hematocrit (Bld) [Volume fraction] 33.1 % 37-47 [facility] Laboratory - Chemistry and C hemistry - challengeOrdered By: Dr. Patterson on 05-26-2022 CO2 [Moles/Vol] 38.0 mmol/L 21.0-32.0 [facility] Urea nitrogen/Creatinine [Mass ratio] 22.4 mg/mg 10-20 [facility] Laboratory - Hematology and Cell countsOrdered By: Dr. Patterson on 05-26-2022 Erythrocyte distribution width (RBC) [Entitic vol] 46.4 fL 35.1-43.9 [facility] Erythrocyte distribution width (RBC) [Ratio] 13.8 % 11.6-14.6 [facility] Immature granulocytes/100 WBC (Bld) 0.800 % 0.0-0.9 [facility] Comment on above: IG% - Immature Granu locytes (promyelocytes, myelocytes and metamyelocytes) > 1% indicates that a LEFT SHIFT is Present. MCH (RBC) [Entitic mass] 27.5 pg 27.0-32.0 [facility] Nucleated RBC/100 WBC (Bld) [Ratio] 0 % 0-5 [facility] MCHC Auto (RBC) [Mass/Vol]Or dered By: Dr. Patterson on 05-26-2022 MCHC (RBC) [Mass/Vol] 29.6 g/dL 32-36 [facility] No Panel InformationOrdered By: Dr. Patterson on 05-26-2022 Estimated GFR (MDRD) Amer 83 mL/min >60 [facility] Comment on above: GFR Calc Estimated GFR (MDRD) Non-Af Amer 69 mL/min >60 [facility] Comment on above: Non- GFR Calc 27.5 pg 27.0-32.0 [facility] 13.8 % 11.6-14.6 [facility] 46.4 fl 35.1-43.9 [facility] 0.800 % 0.0-0.9 [facility] 0 % 0-5 [facility] 69 mL/min >60 [facility] 83 mL/min >60 [facility] 22.4 RATIO 10-20 [facility] 38.0 mmol/L 21.0-32.0 [facility] Platelets bldOrdered By: Dr. Patterson on 05-26-2022 Platelets (Bld) [#/Vol] 241 10*3/uL 150-450 [facility] Serum or plasma calcium angela urement (mass/volume)Ordered By: Dr. Patterson on 05-26-2022 Calcium [Mass/Vol] 9.3 mg/dL 8.5-10.1 [facility] Serum or plasma creatinine m easurement (mass/volume)Ordered By: Dr. Patterson on 05-26-2022 Creatinine [Mass/Vol] 0.89 mg/dL 0.55-1.02 [facility] Comment on above: The validity of the calculated GFR & GFRAA in patients over 70 years has not been determined. Clinical correlation is essential. Serum or plasma urea nitroge n measurement (mass/volume)Ordered By: Dr. Patterson on 05-26-2022 Urea nitrogen [Mass/Vol] 20 mg/dL 7-18 [facility] Thin prep Papanicolaou smear with manual screeningOrdered By: Dr. Patterson on 05-26-2022 Thin prep Papanicolaou smear with manual screening 2 5-15 [facility] Absolute lymphocyte countOrd ered By: Dr. Patterson on 05-19-2022 Lymphocytes Auto (Unsp spec) [#/Vol] 2.52 10*3/uL 0.83-4.51 [facility] Basophil percentageOrdered B y: Dr. Patterson on 05-19-2022 Basophil percentage 109 mg/dL 74-106 [facility] Basophil percentage 140 mmol/L 136-145 [facility] Basophil percentage 3.2 mmol/L 3.5-5.1 [facility] Basophil percentage 97 mmol/L 98-107 [facility] Basophils (Bld) [#/Vol] 9.2 10*3/uL 4.4-11.0 [facility] Basophils (Bld) [#/Vol] 5.6 10*3/uL 2.0-7.7 [facility] Basophils/100 WBC (Bld) 0.3 % 0-1 [facility] Basophils/100 WBC (Bld) 60.9 % 47-70 [facility] Basophils/100 WBC (Bld) 2.5 % 0-5 [facility] Chloride [Moles/Vol] 97 mmol/L 98-107 [facility] Eosinophils/100 WBC (Bld) 2.5 % 0-5 [facility] Glucose [Mass/Vol] 109 mg/dL 74-106 [facility] Comment on above: Fasting Glucose resu lt from 100 to 125 mg/dL suggests IMPAIRED HOMEOSTASIS per A.D.A. criteria. Neutrophils (Bld) [#/Vol] 5.6 10*3/uL 2.0-7.7 [facility] Neutrophils/100 WBC (Bld) 60.9 % 47-70 [facility] Potassium [Moles/Vol] 3.2 mmol/L 3.5-5.1 [facility] Sodium [Moles/Vol] 140 mmol/L 136-145 [facility] WBC (Bld) [#/Vol] 9.2 10*3/uL 4.4-11.0 [facility] Blood erythrocytes count (nu mber/volume)Ordered By: Dr. Patterson on 05-19-2022 RBC (Bld) [#/Vol] 3.72 10*6/uL 4.2-5.4 [facility] Blood hemoglobin measurement (mass/volume)Ordered By: Dr. Patterson on 05-19-2022 Hemoglobin (Bld) [Mass/Vol] 10.2 g/dL 12.0-15.0 [facility] Blood lymphocytes/100 leukoc ytesOrdered By: Dr. Patterson on 05-19-2022 Lymphocytes/100 WBC (Bld) 27.4 % 19-41 [facility] Blood monocytes/100 leukocyt esOrdered By: Dr. Patterson on 05-19-2022 Monocytes/100 WBC (Bld) 7.6 % 0-10 [facility] Blood platelet mean volumeOr dered By: Dr. Patterson on 05-19-2022 Platelet mean volume (Bld) [Entitic vol] 11.4 fL 6.2-12.0 [facility] Determination of erythrocyte mean corpuscular volume (MCV)Ordered By: Dr. Patterson on 05-19-2022 MCV (RBC) [Entitic vol] 90.9 fL 81-99 [facility] Hematocrit Auto (Bld) [Volum e fraction]Ordered By: Dr. Patterson on 05-19-2022 Hematocrit (Bld) [Volume fraction] 33.8 % 37-47 [facility] Laboratory - Chemistry and C hemistry - challengeOrdered By: Dr. Patterson on 05-19-2022 CO2 [Moles/Vol] 38.0 mmol/L 21.0-32.0 [facility] Urea nitrogen/Creatinine [Mass ratio] 23.4 mg/mg 10-20 [facility] Laboratory - Hematology and Cell countsOrdered By: Dr. Patterson on 05-19-2022 Erythrocyte distribution width (RBC) [Entitic vol] 45.8 fL 35.1-43.9 [facility] Erythrocyte distribution width (RBC) [Ratio] 14.0 % 11.6-14.6 [facility] Immature granulocytes/100 WBC (Bld) 1.300 % 0.0-0.9 [facility] Comment on above: IG% - Immature Granu locytes (promyelocytes, myelocytes and metamyelocytes) > 1% indicates that a LEFT SHIFT is Present. MCH (RBC) [Entitic mass] 27.4 pg 27.0-32.0 [facility] Nucleated RBC/100 WBC (Bld) [Ratio] 0 % 0-5 [facility] Laboratory - Microbiology an d Antimicrobial susceptibilityOrdered By: Dr. Ramirez on 05-19-2022 Bacteria identified Cx Nom (Bld) No growth in 5 days. [facility] Bacteria identified Cx Nom (Bld) No growth in 5 days. [facility] MCHC Auto (RBC) [Mass/Vol]Or dered By: Dr. Patterson on 05-19-2022 MCHC (RBC) [Mass/Vol] 30.2 g/dL 32-36 [facility] No Panel InformationOrdered By: Dr. Patterson on 05-19-2022 Estimated GFR (MDRD) Amer 121 mL/min >60 [facility] Comment on above: GFR Calc Estimated GFR (MDRD) Non-Af Amer 100 mL/min >60 [facility] Comment on above: Non- GFR Calc 27.4 pg 27.0-32.0 [facility] 14.0 % 11.6-14.6 [facility] 45.8 fl 35.1-43.9 [facility] 1.300 % 0.0-0.9 [facility] 0 % 0-5 [facility] 100 mL/min >60 [facility] 121 mL/min >60 [facility] 23.4 RATIO 10-20 [facility] 38.0 mmol/L 21.0-32.0 [facility] No Panel InformationOrdered By: Dr. Ramirez on 05-19-2022 No growth in 5 days. [facility] No growth in 5 days. [facility] Platelets bldOrdered By: Dr. Patterson on 05-19-2022 Platelets (Bld) [#/Vol] 240 10*3/uL 150-450 [facility] Serum or plasma calcium angela urement (mass/volume)Ordered By: Dr. Patterson on 05-19-2022 Calcium [Mass/Vol] 9.7 mg/dL 8.5-10.1 [facility] Serum or plasma creatinine m easurement (mass/volume)Ordered By: Dr. Patterson on 05-19-2022 Creatinine [Mass/Vol] 0.64 mg/dL 0.55-1.02 [facility] Comment on above: The validity of the calculated GFR & GFRAA in patients over 70 years has not been determined. Clinical correlation is essential. Serum or plasma urea nitroge n measurement (mass/volume)Ordered By: Dr. Patterson on 05-19-2022 Urea nitrogen [Mass/Vol] 15 mg/dL 7-18 [facility] Thin prep Papanicolaou smear with manual screeningOrdered By: Dr. Patterson on 05-19-2022 Thin prep Papanicolaou smear with manual screening 5 5-15 [facility] Absolute lymphocyte countOrd ered By: Dr. Pascual on 05-16-2022 Lymphocytes Auto (Unsp spec) [#/Vol] 1.83 10*3/uL 0.83-4.51 [facility] Bacteria identified Cx Nom ( U)Ordered By: Dr. Ramirez on 05-16-2022 Culture, urine Proteus mirabilis [facility] Basophil percentageOrdered B y: Dr. Pascual on 05-16-2022 Basophil percentage 107 mg/dL 74-106 [facility] Basophil percentage 142 mmol/L 136-145 [facility] Basophil percentage 3.6 mmol/L 3.5-5.1 [facility] Basophil percentage 103 mmol/L 98-107 [facility] Basophils (Bld) [#/Vol] 6.9 10*3/uL 4.4-11.0 [facility] Basophils (Bld) [#/Vol] 4.3 10*3/uL 2.0-7.7 [facility] Basophils/100 WBC (Bld) 0.1 % 0-1 [facility] Basophils/100 WBC (Bld) 62.2 % 47-70 [facility] Basophils/100 WBC (Bld) 2.5 % 0-5 [facility] Chloride [Moles/Vol] 103 mmol/L 98-107 [facility] Eosinophils/100 WBC (Bld) 2.5 % 0-5 [facility] Glucose [Mass/Vol] 107 mg/dL 74-106 [facility] Comment on above: Fasting Glucose resu lt from 100 to 125 mg/dL suggests IMPAIRED HOMEOSTASIS per A.D.A. criteria. Neutrophils (Bld) [#/Vol] 4.3 10*3/uL 2.0-7.7 [facility] Neutrophils/100 WBC (Bld) 62.2 % 47-70 [facility] Potassium [Moles/Vol] 3.6 mmol/L 3.5-5.1 [facility] Sodium [Moles/Vol] 142 mmol/L 136-145 [facility] WBC (Bld) [#/Vol] 6.9 10*3/uL 4.4-11.0 [facility] Blood erythrocytes count (nu mber/volume)Ordered By: Dr. Pascual on 05-16-2022 RBC (Bld) [#/Vol] 3.52 10*6/uL 4.2-5.4 [facility] Blood hemoglobin measurement (mass/volume)Ordered By: Dr. Pascual on 05-16-2022 Hemoglobin (Bld) [Mass/Vol] 9.4 g/dL 12.0-15.0 [facility] Blood lymphocytes/100 leukoc ytesOrdered By: Dr. Pascual on 05-16-2022 Lymphocytes/100 WBC (Bld) 26.7 % 19-41 [facility] Blood monocytes/100 leukocyt esOrdered By: Dr. Pascual on 05-16-2022 Monocytes/100 WBC (Bld) 7.2 % 0-10 [facility] Blood platelet mean volumeOr dered By: Dr. Pascual on 05-16-2022 Platelet mean volume (Bld) [Entitic vol] 11.3 fL 6.2-12.0 [facility] Clostridium difficile detect ion by polymerase chain reactionOrdered By: Dr. Pascual on 05-16-2022 C. difficile DNA DEMETRI+probe Ql (Unsp spec) [facility] Culture, urineOrdered By: Dr Luis E Ramirez on 05-16-2022 Bacteria identified Cx Nom (U) Proteus mirabilis [facility] Determination of erythrocyte mean corpuscular volume (MCV)Ordered By: Dr. Pascual on 05-16-2022 MCV (RBC) [Entitic vol] 91.5 fL 81-99 [facility] Hematocrit Auto (Bld) [Volum e fraction]Ordered By: Dr. Pascual on 05-16-2022 Hematocrit (Bld) [Volume fraction] 32.2 % 37-47 [facility] Laboratory - Chemistry and C hemistry - challengeOrdered By: Dr. Pascual on 05-16-2022 CO2 [Moles/Vol] 32.0 mmol/L 21.0-32.0 [facility] Magnesium [Mass/Vol] 1.4 mg/dL 1.6-2.6 [facility] Urea nitrogen/Creatinine [Mass ratio] 23.4 mg/mg 10-20 [facility] Laboratory - Hematology and Cell countsOrdered By: Dr. Pascual on 05-16-2022 Erythrocyte distribution width (RBC) [Entitic vol] 43.9 fL 35.1-43.9 [facility] Erythrocyte distribution width (RBC) [Ratio] 13.3 % 11.6-14.6 [facility] Immature granulocytes/100 WBC (Bld) 1.300 % 0.0-0.9 [facility] Comment on above: IG% - Immature Granu locytes (promyelocytes, myelocytes and metamyelocytes) > 1% indicates that a LEFT SHIFT is Present. MCH (RBC) [Entitic mass] 26.7 pg 27.0-32.0 [facility] Nucleated RBC/100 WBC (Bld) [Ratio] 0.4 % 0-5 [facility] MCHC Auto (RBC) [Mass/Vol]Or dered By: Dr. Pascual on 05-16-2022 MCHC (RBC) [Mass/Vol] 29.2 g/dL 32-36 [facility] No Panel InformationOrdered By: Dr. Pascual on 05-16-2022 Estimated Creatinine Clearance Calc 72.73 ml/min [facility] Estimated GFR (MDRD) Amer 99 mL/min >60 [facility] Comment on above: GFR Calc Estimated GFR (MDRD) Non-Af Amer 81 mL/min >60 [facility] Comment on above: Non- GFR Calc 26.7 pg 27.0-32.0 [facility] 13.3 % 11.6-14.6 [facility] 43.9 fl 35.1-43.9 [facility] 1.300 % 0.0-0.9 [facility] 0.4 % 0-5 [facility] 81 mL/min >60 [facility] 99 mL/min >60 [facility] 72.73 ml/min [facility] 23.4 RATIO 10-20 [facility] 1.4 mg/dL 1.6-2.6 [facility] 32.0 mmol/L 21.0-32.0 [facility] Platelets bldOrdered By: Dr. Pascual on 05-16-2022 Platelets (Bld) [#/Vol] 243 10*3/uL 150-450 [facility] Serum or plasma calcium angela urement (mass/volume)Ordered By: Dr. Pascual on 05-16-2022 Calcium [Mass/Vol] 9.5 mg/dL 8.5-10.1 [facility] Serum or plasma creatinine m easurement (mass/volume)Ordered By: Dr. Pascual on 05-16-2022 Creatinine [Mass/Vol] 0.77 mg/dL 0.55-1.02 [facility] Comment on above: The validity of the calculated GFR & GFRAA in patients over 70 years has not been determined. Clinical correlation is essential. Serum or plasma urea nitroge n measurement (mass/volume)Ordered By: Dr. Pascual on 05-16-2022 Urea nitrogen [Mass/Vol] 18 mg/dL 7-18 [facility] Thin prep Papanicolaou smear with manual screeningOrdered By: Dr. Pascual on 05-16-2022 Thin prep Papanicolaou smear with manual screening 7 5-15 [facility] Vancomycin troughOrdered By: Dr. Jacome on 05-16-2022 Vancomycin trough [Mass/Vol] 23.5 ug/mL 5.0-15.0 [facility] Comment on above: VANCOMYCIN STANDARED DRUG THERAPY TROUGH LEVEL: 5.0 - 15.0 mg/L VANCOMYCIN HIGH INTENSITY THERAPY TROUGH LEVEL: 15.0 - 20.0 mg/L High Intensity therapy recommended for serious lifethreatening infections include:- Ankeaxzuhu-Uyeuwkcclstx-Wvmpqvyhe (Ventilator/Healtcare Associated)-Sepsis PLEASE CONTACT PHARMACY SERVICES (#3382) FOR INTERPRETATIONOF RESULTS. Basophil percentageOrdered B y: Dr. Jacome on 05-15-2022 Basophil percentage 6.6 g/dL 6.4-8.2 [facility] Basophil percentage 0.20 mg/dL 0.20-1.00 [facility] Bilirubin [Mass/Vol] 0.20 mg/dL 0.20-1.00 [facility] Comment on above: For patients on eltr ombopag therapy, use of Dimension Freeman TBIL is not recommended. Protein [Mass/Vol] 6.6 g/dL 6.4-8.2 [facility] Laboratory - Chemistry and C hemistry - challengeOrdered By: Dr. Jacome on 05-15-2022 ALP [Catalytic activity/Vol] 70 U/L 45-117 [facility] ALT [Catalytic activity/Vol] 9 U/L 13-56 [facility] Globulin (S) [Mass/Vol] 4.1 g/dL 2.2-4.2 [facility] No Panel InformationOrdered By: Dr. Jacome on 05-15-2022 Thyroid Stimulating Hormone (TSH) 0.30 uIU/mL 0.358-3.74 [facility] 4.1 g/dL 2.2-4.2 [facility] 70 U/L 45-117 [facility] 9 U/L 13-56 [facility] 0.30 uIU/mL 0.358-3.74 [facility] Serum or plasma albumin angela urement (mass/volume)Ordered By: Dr. Jacome on 05-15-2022 Albumin [Mass/Vol] 2.5 g/dL 3.2-5.0 [facility] Serum or plasma albumin/glob ulin mass ratioOrdered By: Dr. Jacome on 05-15-2022 Albumin/Globulin [Mass ratio] 0.6 {ratio} 0.9-2.4 [facility] Thin prep Papanicolaou smear with manual screeningOrdered By: Dr. Jacome on 05-15-2022 Thin prep Papanicolaou smear with manual screening 10 U/L 15-37 [facility] Absolute lymphocyte countOrd ered By: Dr. Ramirez on 05-14-2022 Lymphocytes Auto (Unsp spec) [#/Vol] 2.09 10*3/uL 0.83-4.51 [facility] Basophil percentageOrdered B y: Dr. Ramirez on 05-14-2022 Basophil percentage 10-25 SEEN /hpf 0-5 [facility] Basophil percentage 1.6 mmol/L 0.4-2.0 [facility] Basophils/100 WBC (Bld) 0.2 % 0-1 [facility] Bilirubin [Mass/Vol] 0.30 mg/dL 0.20-1.00 [facility] Comment on above: For patients on eltr ombopag therapy, use of Dimension Freeman TBIL is not recommended. Chloride [Moles/Vol] 89 mmol/L 98-107 [facility] Eosinophils/100 WBC (Bld) 0.2 % 0-5 [facility] Glucose [Mass/Vol] 122 mg/dL 74-106 [facility] Comment on above: Fasting Glucose resu lt from 100 to 125 mg/dL suggests IMPAIRED HOMEOSTASIS per A.D.A. criteria. Lactate [Moles/Vol] 1.6 mmol/L 0.4-2.0 [facility] Neutrophils (Bld) [#/Vol] 9.6 10*3/uL 2.0-7.7 [facility] Neutrophils/100 WBC (Bld) 75.5 % 47-70 [facility] Potassium [Moles/Vol] 4.2 mmol/L 3.5-5.1 [facility] Protein [Mass/Vol] 7.5 g/dL 6.4-8.2 [facility] Sodium [Moles/Vol] 139 mmol/L 136-145 [facility] WBC (Bld) [#/Vol] 12.7 10*3/uL 4.4-11.0 [facility] Bilirubin Test strip Ql (U)O rdered By: Dr. Ramirez on 05-14-2022 Bilirubin Ql (U) Negative Negative [facility] Blood erythrocytes count (nu mber/volume)Ordered By: Dr. Ramirez on 05-14-2022 RBC (Bld) [#/Vol] 3.90 10*6/uL 4.2-5.4 [facility] Blood hemoglobin measurement (mass/volume)Ordered By: Dr. Ramirez on 05-14-2022 Hemoglobin (Bld) [Mass/Vol] 10.3 g/dL 12.0-15.0 [facility] Blood lymphocytes/100 leukoc ytesOrdered By: Dr. Ramirez on 05-14-2022 Lymphocytes/100 WBC (Bld) 16.4 % 19-41 [facility] Blood monocytes/100 leukocyt esOrdered By: Dr. Ramirez on 05-14-2022 Monocytes/100 WBC (Bld) 6.1 % 0-10 [facility] Blood platelet mean volumeOr dered By: Dr. Ramirez on 05-14-2022 Platelet mean volume (Bld) [Entitic vol] 11.8 fL 6.2-12.0 [facility] Determination of erythrocyte mean corpuscular volume (MCV)Ordered By: Dr. Ramirez on 05-14-2022 MCV (RBC) [Entitic vol] 91.0 fL 81-99 [facility] HCO3 (BldA) [Moles/Vol]Order ed By: Dr. Jacome on 05-14-2022 HCO3 (Bld) [Moles/Vol] 39 mmol/L 22-26 [facility] Hematocrit Auto (Bld) [Volum e fraction]Ordered By: Dr. Ramirez on 05-14-2022 Hematocrit (Bld) [Volume fraction] 35.5 % 37-47 [facility] INR in Blood by Coagulation assayOrdered By: Dr. Ramirez on 05-14-2022 INR Coag (Bld) [Relative time] 1.0 {INR} [facility] Ketones Test strip Ql (U)Ord ered By: Dr. Ramirez on 05-14-2022 Ketones Ql (U) Negative Negative [facility] Laboratory - Chemistry and C hemistry - challengeOrdered By: Dr. Jacome on 05-14-2022 CO2 [Moles/Vol] 41 mmol/L 23-33 [facility] Laboratory - Chemistry and C hemistry - challengeOrdered By: Dr. Ramirez on 05-14-2022 ALP [Catalytic activity/Vol] 82 U/L 45-117 [facility] ALT [Catalytic activity/Vol] 10 U/L 13-56 [facility] CO2 [Moles/Vol] 42.0 mmol/L 21.0-32.0 [facility] Globulin (S) [Mass/Vol] 4.5 g/dL 2.2-4.2 [facility] Urea nitrogen/Creatinine [Mass ratio] 19.9 mg/mg 10-20 [facility] Laboratory - CoagulationOrde red By: Dr. Ramirez on 05-14-2022 aPTT Coag (Bld) [Time] 27.9 s 24.1-36.2 [facility] PT Coag (PPP) [Time] 12.9 s 11.7-14.9 [facility] Laboratory - Hematology and Cell countsOrdered By: Dr. Ramirez on 05-14-2022 Erythrocyte distribution width (RBC) [Entitic vol] 45.2 fL 35.1-43.9 [facility] Erythrocyte distribution width (RBC) [Ratio] 13.6 % 11.6-14.6 [facility] Immature granulocytes/100 WBC (Bld) 1.600 % 0.0-0.9 [facility] Comment on above: IG% - Immature Granu locytes (promyelocytes, myelocytes and metamyelocytes) > 1% indicates that a LEFT SHIFT is Present. MCH (RBC) [Entitic mass] 26.4 pg 27.0-32.0 [facility] Nucleated RBC/100 WBC (Bld) [Ratio] 0 % 0-5 [facility] MCHC Auto (RBC) [Mass/Vol]Or dered By: Dr. Ramirez on 05-14-2022 MCHC (RBC) [Mass/Vol] 29.0 g/dL 32-36 [facility] Mucus LM Ql (Urine sed)Order ed By: Dr. Ramirez on 05-14-2022 Mucus Ql (Urine sed) 0 SEEN /hpf [facility] Nitrite Test strip Ql (U)Ord ered By: Dr. Ramirez on 05-14-2022 Nitrite Ql (U) Positive Negative [facility] No Panel InformationOrdered By: Dr. Jacome on 05-14-2022 Methicillin-Resist S.aureus DNA PCR Negative Negative [facility] Negative Negative [facility] Bed Mix Venous Bld PCO2 at Pat Temp 67.5 mmHg 41-51 [facility] Blood Gas Specimen Type MAXIM [facility] Venous Blood Base Excess 13 mmol/L -1.0-3.5 [facility] MAXIM [facility] 67.5 mmHg 41-51 [facility] 13 mmol/L -1.0-3.5 [facility] 65 % 50-70 [facility] 41 mmol/L 23-33 [facility] No Panel InformationOrdered By: Dr. Ramirez on 05-14-2022 Estimated Creatinine Clearance Calc 24.65 ml/min [facility] Estimated GFR (MDRD) Amer 27 mL/min >60 [facility] Comment on above: GFR Calc Estimated GFR (MDRD) Non-Af Amer 22 mL/min >60 [facility] Comment on above: Non- GFR Calc 12.9 SECONDS 11.7-14.9 [facility] 27.9 Seconds 24.1-36.2 [facility] PO2 venousOrdered By: Dr. Julián foy on 05-14-2022 Oxygen (BldV) [Partial pressure] 37 mm[Hg] 25-40 [facility] Platelets bldOrdered By: Dr. Ramirez on 05-14-2022 Platelets (Bld) [#/Vol] 265 10*3/uL 150-450 [facility] Protein Test strip Ql (U)Ord ered By: Dr. Ramirez on 05-14-2022 Protein Ql (U) 30 mg/dl Negative [facility] Serum or plasma albumin angela urement (mass/volume)Ordered By: Dr. Ramirez on 05-14-2022 Albumin [Mass/Vol] 3.0 g/dL 3.2-5.0 [facility] Serum or plasma albumin/glob ulin mass ratioOrdered By: Dr. Ramirez on 05-14-2022 Albumin/Globulin [Mass ratio] 0.7 {ratio} 0.9-2.4 [facility] Serum or plasma calcium angela urement (mass/volume)Ordered By: Dr. Ramirez on 05-14-2022 Calcium [Mass/Vol] 9.6 mg/dL 8.5-10.1 [facility] Serum or plasma creatinine m easurement (mass/volume)Ordered By: Dr. Ramirez on 05-14-2022 Creatinine [Mass/Vol] 2.36 mg/dL 0.55-1.02 [facility] Comment on above: The validity of the calculated GFR & GFRAA in patients over 70 years has not been determined. Clinical correlation is essential. Serum or plasma urea nitroge n measurement (mass/volume)Ordered By: Dr. Ramirez on 05-14-2022 Urea nitrogen [Mass/Vol] 47 mg/dL 7-18 [facility] Squamous epithelial cells de tection in urine sediment by light microscopyOrdered By: Dr. Ramirez on 05-14-2022 Epithelial cells.squamous LM Ql (Urine sed) 0 SEEN /hpf 5-10 [facility] Thin prep Papanicolaou smear with manual screeningOrdered By: Dr. Ramirez on 05-14-2022 Thin prep Papanicolaou smear with manual screening 8 U/L 15-37 [facility] Thin prep Papanicolaou smear with manual screening 8 5-15 [facility] Urine blood detectionOrdered By: Dr. Ramirez on 05-14-2022 RBC Ql (U) Negative Negative [facility] RBC Ql (U) 0 SEEN /hpf 0-5 [facility] Urine clarityOrdered By: Dr. Ramirez on 05-14-2022 Clarity (U) Clear Clear [facility] Urine color determinationOrd ered By: Dr. Ramirez on 05-14-2022 Color (U) Yellow Yellow [facility] Urine glucose detectionOrder ed By: Dr. Ramirez on 05-14-2022 Glucose Ql (U) 100 mg/dl Normal [facility] Urine leukocyte esterase det ection by dipstickOrdered By: Dr. Ramirez on 05-14-2022 Leukocyte esterase Test strip Ql (U) 100 /ul Negative [facility] Urine pHOrdered By: Dr. Aubree smyth on 05-14-2022 pH (U) 6.0 [pH] 5.0 - 8.0 [facility] Urine sediment bacteria coun t by microscopy (number/high power field)Ordered By: Dr. Ramirez on 05-14-2022 Bacteria LM.HPF (Urine sed) [#/Area] 2 /[HPF] None Seen [facility] Urine specific gravity measu rementOrdered By: Dr. Ramirez on 05-14-2022 Specific gravity (U) [Rel density] 1.015 1.002-1.030 [facility] Urobilinogen Auto test strip Ql (U)Ordered By: Dr. Ramirez on 05-14-2022 Urobilinogen Ql (U) Normal mg/dl Normal [facility] Vital signsOrdered By: Dr. David foster on 05-14-2022 Oxygen saturation in Blood 65 % 50-70 [facility] pH measurementOrdered By: Dr Luis E Jacome on 05-14-2022 pH (Unsp spec) 7.37 [pH] 7.32-7.42 [facility] Absolute lymphocyte countOrd ered By: Dr. Patterson on 05-13-2022 Lymphocytes Auto (Unsp spec) [#/Vol] 2.11 10*3/uL 0.83-4.51 [facility] Basophil percentageOrdered B y: Dr. Patterson on 05-13-2022 Basophil percentage 150 mg/dL 74-106 [facility] Basophil percentage 138 mmol/L 136-145 [facility] Basophil percentage 3.8 mmol/L 3.5-5.1 [facility] Basophil percentage 87 mmol/L 98-107 [facility] Basophils (Bld) [#/Vol] 11.4 10*3/uL 4.4-11.0 [facility] Basophils (Bld) [#/Vol] 8.0 10*3/uL 2.0-7.7 [facility] Basophils/100 WBC (Bld) 0.3 % 0-1 [facility] Basophils/100 WBC (Bld) 69.7 % 47-70 [facility] Basophils/100 WBC (Bld) 2.3 % 0-5 [facility] Chloride [Moles/Vol] 87 mmol/L 98-107 [facility] Eosinophils/100 WBC (Bld) 2.3 % 0-5 [facility] Glucose [Mass/Vol] 150 mg/dL 74-106 [facility] Comment on above: Fasting Glucose resu lt greater than or equal to 126 mg/dL suggests DIABETES MELLITUS per A.D.A. criteria. Neutrophils (Bld) [#/Vol] 8.0 10*3/uL 2.0-7.7 [facility] Neutrophils/100 WBC (Bld) 69.7 % 47-70 [facility] Potassium [Moles/Vol] 3.8 mmol/L 3.5-5.1 [facility] Sodium [Moles/Vol] 138 mmol/L 136-145 [facility] WBC (Bld) [#/Vol] 11.4 10*3/uL 4.4-11.0 [facility] Blood erythrocytes count (nu mber/volume)Ordered By: Dr. Patterson on 05-13-2022 RBC (Bld) [#/Vol] 3.78 10*6/uL 4.2-5.4 [facility] Blood hemoglobin measurement (mass/volume)Ordered By: Dr. Patterson on 05-13-2022 Hemoglobin (Bld) [Mass/Vol] 10.3 g/dL 12.0-15.0 [facility] Blood lymphocytes/100 leukoc ytesOrdered By: Dr. Patterson on 05-13-2022 Lymphocytes/100 WBC (Bld) 18.4 % 19-41 [facility] Blood monocytes/100 leukocyt esOrdered By: Dr. Patterson on 05-13-2022 Monocytes/100 WBC (Bld) 8.5 % 0-10 [facility] Blood platelet mean volumeOr dered By: Dr. Patterson on 05-13-2022 Platelet mean volume (Bld) [Entitic vol] 11.8 fL 6.2-12.0 [facility] Determination of erythrocyte mean corpuscular volume (MCV)Ordered By: Dr. Patterson on 05-13-2022 MCV (RBC) [Entitic vol] 91.0 fL 81-99 [facility] Hematocrit Auto (Bld) [Volum e fraction]Ordered By: Dr. Patterson on 05-13-2022 Hematocrit (Bld) [Volume fraction] 34.4 % 37-47 [facility] Laboratory - Chemistry and C hemistry - challengeOrdered By: Dr. Patterson on 05-13-2022 CO2 [Moles/Vol] 43.0 mmol/L 21.0-32.0 [facility] Magnesium [Mass/Vol] 1.6 mg/dL 1.6-2.6 [facility] Urea nitrogen/Creatinine [Mass ratio] 16.7 mg/mg 10-20 [facility] Laboratory - Hematology and Cell countsOrdered By: Dr. Patterson on 05-13-2022 Erythrocyte distribution width (RBC) [Entitic vol] 45.9 fL 35.1-43.9 [facility] Erythrocyte distribution width (RBC) [Ratio] 13.7 % 11.6-14.6 [facility] Immature granulocytes/100 WBC (Bld) 0.800 % 0.0-0.9 [facility] Comment on above: IG% - Immature Granu locytes (promyelocytes, myelocytes and metamyelocytes) > 1% indicates that a LEFT SHIFT is Present. MCH (RBC) [Entitic mass] 27.2 pg 27.0-32.0 [facility] Nucleated RBC/100 WBC (Bld) [Ratio] 0 % 0-5 [facility] MCHC Auto (RBC) [Mass/Vol]Or dered By: Dr. Patterson on 05-13-2022 MCHC (RBC) [Mass/Vol] 29.9 g/dL 32-36 [facility] No Panel InformationOrdered By: Dr. Patterson on 05-13-2022 Estimated GFR (MDRD) Amer 26 mL/min >60 [facility] Comment on above: GFR Calc Estimated GFR (MDRD) Non-Af Amer 21 mL/min >60 [facility] Comment on above: Non- GFR Calc 27.2 pg 27.0-32.0 [facility] 13.7 % 11.6-14.6 [facility] 45.9 fl 35.1-43.9 [facility] 0.800 % 0.0-0.9 [facility] 0 % 0-5 [facility] 21 mL/min >60 [facility] 26 mL/min >60 [facility] 16.7 RATIO 10-20 [facility] 1.6 mg/dL 1.6-2.6 [facility] 43.0 mmol/L 21.0-32.0 [facility] Platelets bldOrdered By: Dr. Patterson on 05-13-2022 Platelets (Bld) [#/Vol] 245 10*3/uL 150-450 [facility] Serum or plasma calcium angela urement (mass/volume)Ordered By: Dr. Patterson on 05-13-2022 Calcium [Mass/Vol] 9.5 mg/dL 8.5-10.1 [facility] Serum or plasma creatinine m easurement (mass/volume)Ordered By: Dr. Patterson on 05-13-2022 Creatinine [Mass/Vol] 2.45 mg/dL 0.55-1.02 [facility] Comment on above: The validity of the calculated GFR & GFRAA in patients over 70 years has not been determined. Clinical correlation is essential. Serum or plasma urea nitroge n measurement (mass/volume)Ordered By: Dr. Patterson on 05-13-2022 Urea nitrogen [Mass/Vol] 41 mg/dL 7-18 [facility] Thin prep Papanicolaou smear with manual screeningOrdered By: Dr. Patterson on 05-13-2022 Thin prep Papanicolaou smear with manual screening 8 5-15 [facility] Absolute lymphocyte countOrd ered By: Dr. Patterson on 05-08-2022 Lymphocytes Auto (Unsp spec) [#/Vol] 1.90 10*3/uL 0.83-4.51 [facility] Basophil percentageOrdered B y: Dr. Patterson on 05-08-2022 Basophil percentage 104 mg/dL 74-106 [facility] Basophil percentage 141 mmol/L 136-145 [facility] Basophil percentage 3.3 mmol/L 3.5-5.1 [facility] Basophil percentage 96 mmol/L 98-107 [facility] Basophils (Bld) [#/Vol] 7.5 10*3/uL 4.4-11.0 [facility] Basophils (Bld) [#/Vol] 4.6 10*3/uL 2.0-7.7 [facility] Basophils/100 WBC (Bld) 0.3 % 0-1 [facility] Basophils/100 WBC (Bld) 61.3 % 47-70 [facility] Basophils/100 WBC (Bld) 3.2 % 0-5 [facility] Chloride [Moles/Vol] 96 mmol/L 98-107 [facility] Eosinophils/100 WBC (Bld) 3.2 % 0-5 [facility] Glucose [Mass/Vol] 104 mg/dL 74-106 [facility] Comment on above: Fasting Glucose resu lt from 100 to 125 mg/dL suggests IMPAIRED HOMEOSTASIS per A.D.A. criteria. Neutrophils (Bld) [#/Vol] 4.6 10*3/uL 2.0-7.7 [facility] Neutrophils/100 WBC (Bld) 61.3 % 47-70 [facility] Potassium [Moles/Vol] 3.3 mmol/L 3.5-5.1 [facility] Sodium [Moles/Vol] 141 mmol/L 136-145 [facility] WBC (Bld) [#/Vol] 7.5 10*3/uL 4.4-11.0 [facility] Blood erythrocytes count (nu mber/volume)Ordered By: Dr. Patterson on 05-08-2022 RBC (Bld) [#/Vol] 3.79 10*6/uL 4.2-5.4 [facility] Blood hemoglobin measurement (mass/volume)Ordered By: Dr. Patterson on 05-08-2022 Hemoglobin (Bld) [Mass/Vol] 10.1 g/dL 12.0-15.0 [facility] Blood lymphocytes/100 leukoc ytesOrdered By: Dr. Patterson on 05-08-2022 Lymphocytes/100 WBC (Bld) 25.4 % 19-41 [facility] Blood monocytes/100 leukocyt esOrdered By: Dr. Patterson on 05-08-2022 Monocytes/100 WBC (Bld) 8.7 % 0-10 [facility] Blood platelet mean volumeOr dered By: Dr. Patterson on 05-08-2022 Platelet mean volume (Bld) [Entitic vol] 11.4 fL 6.2-12.0 [facility] Determination of erythrocyte mean corpuscular volume (MCV)Ordered By: Dr. Patterson on 05-08-2022 MCV (RBC) [Entitic vol] 92.3 fL 81-99 [facility] Hematocrit Auto (Bld) [Volum e fraction]Ordered By: Dr. Patterson on 05-08-2022 Hematocrit (Bld) [Volume fraction] 35.0 % 37-47 [facility] Laboratory - Chemistry and C hemistry - challengeOrdered By: Dr. Patterson on 05-08-2022 CO2 [Moles/Vol] 40.0 mmol/L 21.0-32.0 [facility] Urea nitrogen/Creatinine [Mass ratio] 17.4 mg/mg 10-20 [facility] Laboratory - Hematology and Cell countsOrdered By: Dr. Patterson on 05-08-2022 Erythrocyte distribution width (RBC) [Entitic vol] 46.0 fL 35.1-43.9 [facility] Erythrocyte distribution width (RBC) [Ratio] 13.8 % 11.6-14.6 [facility] Immature granulocytes/100 WBC (Bld) 1.100 % 0.0-0.9 [facility] Comment on above: IG% - Immature Granu locytes (promyelocytes, myelocytes and metamyelocytes) > 1% indicates that a LEFT SHIFT is Present. MCH (RBC) [Entitic mass] 26.6 pg 27.0-32.0 [facility] Nucleated RBC/100 WBC (Bld) [Ratio] 0 % 0-5 [facility] Laboratory - Microbiology an d Antimicrobial susceptibilityOrdered By: Dr. Post on 05-08-2022 Bacteria identified Cx Nom (Bld) [facility] [Mass/Vol]Or dered By: Dr. Patterson on 05-08-2022 MCHC (RBC) [Mass/Vol] 28.9 g/dL 32-36 [facility] No Panel InformationOrdered By: Dr. Patterson on 05-08-2022 Estimated GFR (MDRD) Amer 102 mL/min >60 [facility] Comment on above: GFR Calc Estimated GFR (MDRD) Non-Af Amer 84 mL/min >60 [facility] Comment on above: Non- GFR Calc 26.6 pg 27.0-32.0 [facility] 13.8 % 11.6-14.6 [facility] 46.0 fl 35.1-43.9 [facility] 1.100 % 0.0-0.9 [facility] 0 % 0-5 [facility] 84 mL/min >60 [facility] 102 mL/min >60 [facility] 17.4 RATIO 10-20 [facility] 40.0 mmol/L 21.0-32.0 [facility] No Panel InformationOrdered By: Dr. Post on 05-08-2022 No growth in 5 days. [facility] Platelets bldOrdered By: Dr. Patterson on 05-08-2022 Platelets (Bld) [#/Vol] 235 10*3/uL 150-450 [facility] Serum or plasma calcium angela urement (mass/volume)Ordered By: Dr. Patterson on 05-08-2022 Calcium [Mass/Vol] 9.6 mg/dL 8.5-10.1 [facility] Serum or plasma creatinine m easurement (mass/volume)Ordered By: Dr. Patterson on 05-08-2022 Creatinine [Mass/Vol] 0.75 mg/dL 0.55-1.02 [facility] Comment on above: The validity of the calculated GFR & GFRAA in patients over 70 years has not been determined. Clinical correlation is essential. Serum or plasma urea nitroge n measurement (mass/volume)Ordered By: Dr. Patterson on 05-08-2022 Urea nitrogen [Mass/Vol] 13 mg/dL 7-18 [facility] Thin prep Papanicolaou smear with manual screeningOrdered By: Dr. Patterson on 05-08-2022 Thin prep Papanicolaou smear with manual screening 5 5-15 [facility] Absolute lymphocyte countOrd ered By: Dr. Armas on 05-05-2022 Lymphocytes Auto (Unsp spec) [#/Vol] 1.39 10*3/uL 0.83-4.51 [facility] Bacteria identified Cx Nom ( U)Ordered By: Dr. Post on 05-05-2022 Culture, urine Escherichia coli [facility] Basophil percentageOrdered B y: Dr. Armas on 05-05-2022 Basophil percentage 114 mg/dL 74-106 [facility] Basophil percentage 140 mmol/L 136-145 [facility] Basophil percentage 4.9 mmol/L 3.5-5.1 [facility] Basophil percentage 102 mmol/L 98-107 [facility] Basophils (Bld) [#/Vol] 6.2 10*3/uL 4.4-11.0 [facility] Basophils (Bld) [#/Vol] 3.9 10*3/uL 2.0-7.7 [facility] Basophils/100 WBC (Bld) 0.5 % 0-1 [facility] Basophils/100 WBC (Bld) 63.5 % 47-70 [facility] Basophils/100 WBC (Bld) 3.2 % 0-5 [facility] Chloride [Moles/Vol] 102 mmol/L 98-107 [facility] Eosinophils/100 WBC (Bld) 3.2 % 0-5 [facility] Glucose [Mass/Vol] 114 mg/dL 74-106 [facility] Comment on above: Fasting Glucose resu lt from 100 to 125 mg/dL suggests IMPAIRED HOMEOSTASIS per A.D.A. criteria. Neutrophils (Bld) [#/Vol] 3.9 10*3/uL 2.0-7.7 [facility] Neutrophils/100 WBC (Bld) 63.5 % 47-70 [facility] Potassium [Moles/Vol] 4.9 mmol/L 3.5-5.1 [facility] Comment on above: Slight Hemolysis, Re sult may be falsely increased. Sodium [Moles/Vol] 140 mmol/L 136-145 [facility] WBC (Bld) [#/Vol] 6.2 10*3/uL 4.4-11.0 [facility] Blood erythrocytes count (nu mber/volume)Ordered By: Dr. Armas on 05-05-2022 RBC (Bld) [#/Vol] 3.47 10*6/uL 4.2-5.4 [facility] Blood hemoglobin measurement (mass/volume)Ordered By: Dr. Armas on 05-05-2022 Hemoglobin (Bld) [Mass/Vol] 9.3 g/dL 12.0-15.0 [facility] Blood lymphocytes/100 leukoc ytesOrdered By: Dr. Armas on 05-05-2022 Lymphocytes/100 WBC (Bld) 22.5 % 19-41 [facility] Blood monocytes/100 leukocyt esOrdered By: Dr. Armas on 05-05-2022 Monocytes/100 WBC (Bld) 9.5 % 0-10 [facility] Blood platelet mean volumeOr dered By: Dr. Armas on 05-05-2022 Platelet mean volume (Bld) [Entitic vol] 11.3 fL 6.2-12.0 [facility] COVID-19 virus antigen assay Ordered By: Dr. Morillo on 05-05-2022 SARS-CoV-2 (COVID-19) Ag IA.rapid Ql (Resp) [facility] Culture, urineOrdered By: Dr Luis E Post on 05-05-2022 Bacteria identified Cx Nom (U) Escherichia coli [facility] Determination of erythrocyte mean corpuscular volume (MCV)Ordered By: Dr. Armas on 05-05-2022 MCV (RBC) [Entitic vol] 90.8 fL 81-99 [facility] Hematocrit Auto (Bld) [Volum e fraction]Ordered By: Dr. Armas on 05-05-2022 Hematocrit (Bld) [Volume fraction] 31.5 % 37-47 [facility] Laboratory - Chemistry and C hemistry - challengeOrdered By: Dr. Armas on 05-05-2022 CO2 [Moles/Vol] 35.0 mmol/L 21.0-32.0 [facility] Urea nitrogen/Creatinine [Mass ratio] 26.2 mg/mg 10-20 [facility] Laboratory - Hematology and Cell countsOrdered By: Dr. Armas on 05-05-2022 Erythrocyte distribution width (RBC) [Entitic vol] 44.4 fL 35.1-43.9 [facility] Erythrocyte distribution width (RBC) [Ratio] 13.6 % 11.6-14.6 [facility] Immature granulocytes/100 WBC (Bld) 0.800 % 0.0-0.9 [facility] Comment on above: IG% - Immature Granu locytes (promyelocytes, myelocytes and metamyelocytes) > 1% indicates that a LEFT SHIFT is Present. MCH (RBC) [Entitic mass] 26.8 pg 27.0-32.0 [facility] Nucleated RBC/100 WBC (Bld) [Ratio] 0 % 0-5 [facility] MCHC Auto (RBC) [Mass/Vol]Or dered By: Dr. Armas on 05-05-2022 MCHC (RBC) [Mass/Vol] 29.5 g/dL 32-36 [facility] No Panel InformationOrdered By: Dr. Armas on 05-05-2022 Estimated Creatinine Clearance Calc 76.55 ml/min [facility] Estimated GFR (MDRD) Amer 99 mL/min >60 [facility] Comment on above: GFR Calc Estimated GFR (MDRD) Non-Af Amer 82 mL/min >60 [facility] Comment on above: Non- GFR Calc 26.8 pg 27.0-32.0 [facility] 13.6 % 11.6-14.6 [facility] 44.4 fl 35.1-43.9 [facility] 0.800 % 0.0-0.9 [facility] 0 % 0-5 [facility] 82 mL/min >60 [facility] 99 mL/min >60 [facility] 76.55 ml/min [facility] 26.2 RATIO 10- [facility] 35.0 mmol/L 21.0-32.0 [facility] Platelets bldOrdered By: Dr. Armas on 05-05-2022 Platelets (Bld) [#/Vol] 207 10*3/uL 150-450 [facility] Serum or plasma calcium angela urement (mass/volume)Ordered By: Dr. Armas on 05-05-2022 Calcium [Mass/Vol] 9.6 mg/dL 8.5-10.1 [facility] Serum or plasma creatinine m easurement (mass/volume)Ordered By: Dr. Armas on 05-05-2022 Creatinine [Mass/Vol] 0.76 mg/dL 0.55-1.02 [facility] Comment on above: The validity of the calculated GFR & GFRAA in patients over 70 years has not been determined. Clinical correlation is essential. Serum or plasma urea nitroge n measurement (mass/volume)Ordered By: Dr. Armas on 05-05-2022 Urea nitrogen [Mass/Vol] 20 mg/dL 7-18 [facility] Thin prep Papanicolaou smear with manual screeningOrdered By: Dr. Armas on 05-05-2022 Thin prep Papanicolaou smear with manual screening 3 5-15 [facility] Absolute lymphocyte countOrd ered By: Dr. Armas on 05-04-2022 Lymphocytes Auto (Unsp spec) [#/Vol] 1.48 10*3/uL 0.83-4.51 [facility] Basophil percentageOrdered B y: Dr. Armas on 05-04-2022 Basophil percentage 3.3 mg/dL 2.5-4.9 [facility] Basophil percentage 6.9 g/dL 6.4-8.2 [facility] Basophil percentage 0.40 mg/dL 0.20-1.00 [facility] Basophils/100 WBC (Bld) 0.2 % 0-1 [facility] Bilirubin [Mass/Vol] 0.40 mg/dL 0.20-1.00 [facility] Comment on above: For patients on eltr ombopag therapy, use of Dimension [place] TBIL is not recommended. Chloride [Moles/Vol] 99 mmol/L 98-107 [facility] Eosinophils/100 WBC (Bld) 1.5 % 0-5 [facility] Glucose [Mass/Vol] 125 mg/dL 74-106 [facility] Comment on above: Fasting Glucose resu lt from 100 to 125 mg/dL suggests IMPAIRED HOMEOSTASIS per A.D.A. criteria. Neutrophils (Bld) [#/Vol] 6.8 10*3/uL 2.0-7.7 [facility] Neutrophils/100 WBC (Bld) 74.8 % 47-70 [facility] Potassium [Moles/Vol] 4.9 mmol/L 3.5-5.1 [facility] Protein [Mass/Vol] 6.9 g/dL 6.4-8.2 [facility] Sodium [Moles/Vol] 138 mmol/L 136-145 [facility] WBC (Bld) [#/Vol] 9.1 10*3/uL 4.4-11.0 [facility] Blood erythrocytes count (nu mber/volume)Ordered By: Dr. Armas on 05-04-2022 RBC (Bld) [#/Vol] 3.57 10*6/uL 4.2-5.4 [facility] Blood hemoglobin measurement (mass/volume)Ordered By: Dr. Armas on 05-04-2022 Hemoglobin (Bld) [Mass/Vol] 9.5 g/dL 12.0-15.0 [facility] Blood lymphocytes/100 leukoc ytesOrdered By: Dr. Armas on 05-04-2022 Lymphocytes/100 WBC (Bld) 16.2 % 19-41 [facility] Blood monocytes/100 leukocyt esOrdered By: Dr. Armas on 05-04-2022 Monocytes/100 WBC (Bld) 6.5 % 0-10 [facility] Blood platelet mean volumeOr dered By: Dr. Armas on 05-04-2022 Platelet mean volume (Bld) [Entitic vol] 11.0 fL 6.2-12.0 [facility] Clostridium difficile detect ion by polymerase chain reactionOrdered By: Dr. Armas on 05-04-2022 C. difficile DNA DEMETRI+probe Ql (Unsp spec) [facility] Determination of erythrocyte mean corpuscular volume (MCV)Ordered By: Dr. Armas on 05-04-2022 MCV (RBC) [Entitic vol] 89.9 fL 81-99 [facility] Hematocrit Auto (Bld) [Volum e fraction]Ordered By: Dr. Armas on 05-04-2022 Hematocrit (Bld) [Volume fraction] 32.1 % 37-47 [facility] Laboratory - Chemistry and C hemistry - challengeOrdered By: Dr. Armas on 05-04-2022 ALP [Catalytic activity/Vol] 78 U/L 45-117 [facility] ALT [Catalytic activity/Vol] 11 U/L 13-56 [facility] CO2 [Moles/Vol] 35.0 mmol/L 21.0-32.0 [facility] Globulin (S) [Mass/Vol] 4.2 g/dL 2.2-4.2 [facility] Magnesium [Mass/Vol] 1.7 mg/dL 1.6-2.6 [facility] Urea nitrogen/Creatinine [Mass ratio] 38.2 mg/mg 10-20 [facility] Laboratory - Hematology and Cell countsOrdered By: Dr. Armas on 05-04-2022 Erythrocyte distribution width (RBC) [Entitic vol] 44.3 fL 35.1-43.9 [facility] Erythrocyte distribution width (RBC) [Ratio] 13.5 % 11.6-14.6 [facility] Immature granulocytes/100 WBC (Bld) 0.800 % 0.0-0.9 [facility] Comment on above: IG% - Immature Granu locytes (promyelocytes, myelocytes and metamyelocytes) > 1% indicates that a LEFT SHIFT is Present. MCH (RBC) [Entitic mass] 26.6 pg 27.0-32.0 [facility] Nucleated RBC/100 WBC (Bld) [Ratio] 0 % 0-5 [facility] MCHC Auto (RBC) [Mass/Vol]Or dered By: Dr. Amras on 05-04-2022 MCHC (RBC) [Mass/Vol] 29.6 g/dL 32-36 [facility] No Panel InformationOrdered By: Dr. Armas on 05-04-2022 Estimated Creatinine Clearance Calc 52.89 ml/min [facility] Estimated GFR (MDRD) Amer 65 mL/min >60 [facility] Comment on above: GFR Calc Estimated GFR (MDRD) Non-Af Amer 54 mL/min >60 [facility] Comment on above: Non- GFR Calc Thyroid Stimulating Hormone (TSH) 0.35 uIU/mL 0.358-3.74 [facility] 4.2 g/dL 2.2-4.2 [facility] 78 U/L 45-117 [facility] 11 U/L 13-56 [facility] 1.7 mg/dL 1.6-2.6 [facility] 0.35 uIU/mL 0.358-3.74 [facility] Platelets bldOrdered By: Dr. Armas on 05-04-2022 Platelets (Bld) [#/Vol] 228 10*3/uL 150-450 [facility] Serum or plasma albumin angela urement (mass/volume)Ordered By: Dr. Armas on 05-04-2022 Albumin [Mass/Vol] 2.7 g/dL 3.2-5.0 [facility] Serum or plasma albumin/glob ulin mass ratioOrdered By: Dr. Armas on 05-04-2022 Albumin/Globulin [Mass ratio] 0.6 {ratio} 0.9-2.4 [facility] Serum or plasma calcium angela urement (mass/volume)Ordered By: Dr. Armas on 05-04-2022 Calcium [Mass/Vol] 9.5 mg/dL 8.5-10.1 [facility] Serum or plasma creatinine m easurement (mass/volume)Ordered By: Dr. Armas on 05-04-2022 Creatinine [Mass/Vol] 1.10 mg/dL 0.55-1.02 [facility] Comment on above: The validity of the calculated GFR & GFRAA in patients over 70 years has not been determined. Clinical correlation is essential. Serum or plasma urea nitroge n measurement (mass/volume)Ordered By: Dr. Armas on 05-04-2022 Urea nitrogen [Mass/Vol] 42 mg/dL 7-18 [facility] Thin prep Papanicolaou smear with manual screeningOrdered By: Dr. Armas on 05-04-2022 Thin prep Papanicolaou smear with manual screening 13 U/L 15-37 [facility] Thin prep Papanicolaou smear with manual screening 4 5-15 [facility] Absolute lymphocyte countOrd ered By: Dr. Post on 05-03-2022 Lymphocytes Auto (Unsp spec) [#/Vol] 2.16 10*3/uL 0.83-4.51 [facility] Basophil percentageOrdered B y: Dr. Post on 05-03-2022 Basophil percentage 10-25 SEEN /hpf 0-5 [facility] Basophils/100 WBC (Bld) 0.3 % 0-1 [facility] Bilirubin [Mass/Vol] 0.40 mg/dL 0.20-1.00 [facility] Comment on above: For patients on eltr ombopag therapy, use of Dimension Freeman TBIL is not recommended. Chloride [Moles/Vol] 93 mmol/L 98-107 [facility] Eosinophils/100 WBC (Bld) 1.0 % 0-5 [facility] Glucose [Mass/Vol] 126 mg/dL 74-106 [facility] Comment on above: Fasting Glucose resu lt greater than or equal to 126 mg/dL suggests DIABETES MELLITUS per A.D.A. criteria. Neutrophils (Bld) [#/Vol] 7.5 10*3/uL 2.0-7.7 [facility] Neutrophils/100 WBC (Bld) 70.4 % 47-70 [facility] Potassium [Moles/Vol] 5.2 mmol/L 3.5-5.1 [facility] Protein [Mass/Vol] 7.7 g/dL 6.4-8.2 [facility] Sodium [Moles/Vol] 137 mmol/L 136-145 [facility] WBC (Bld) [#/Vol] 10.7 10*3/uL 4.4-11.0 [facility] Basophil percentage 1.1 mmol/L 0.4-2.0 [facility] Lactate [Moles/Vol] 1.1 mmol/L 0.4-2.0 [facility] Bilirubin Test strip Ql (U)O rdered By: Dr. Post on 05-03-2022 Bilirubin Ql (U) Negative Negative [facility] Blood erythrocytes count (nu mber/volume)Ordered By: Dr. Post on 05-03-2022 RBC (Bld) [#/Vol] 4.04 10*6/uL 4.2-5.4 [facility] Blood hemoglobin measurement (mass/volume)Ordered By: Dr. Post on 05-03-2022 Hemoglobin (Bld) [Mass/Vol] 10.7 g/dL 12.0-15.0 [facility] Blood lymphocytes/100 leukoc ytesOrdered By: Dr. Post on 05-03-2022 Lymphocytes/100 WBC (Bld) 20.2 % 19-41 [facility] Blood monocytes/100 leukocyt esOrdered By: Dr. Post on 05-03-2022 Monocytes/100 WBC (Bld) 7.1 % 0-10 [facility] Blood platelet mean volumeOr dered By: Dr. Post on 05-03-2022 Platelet mean volume (Bld) [Entitic vol] 11.4 fL 6.2-12.0 [facility] Determination of erythrocyte mean corpuscular volume (MCV)Ordered By: Dr. Post on 05-03-2022 MCV (RBC) [Entitic vol] 90.1 fL 81-99 [facility] Hematocrit Auto (Bld) [Volum e fraction]Ordered By: Dr. Post on 05-03-2022 Hematocrit (Bld) [Volume fraction] 36.4 % 37-47 [facility] INR in Blood by Coagulation assayOrdered By: Dr. Post on 05-03-2022 INR Coag (Bld) [Relative time] 1.0 {INR} [facility] Ketones Test strip Ql (U)Ord ered By: Dr. Post on 05-03-2022 Ketones Ql (U) Negative Negative [facility] Laboratory - Chemistry and C hemistry - challengeOrdered By: Dr. Post on 05-03-2022 ALP [Catalytic activity/Vol] 89 U/L 45-117 [facility] ALT [Catalytic activity/Vol] 10 U/L 13-56 [facility] CO2 [Moles/Vol] 40.0 mmol/L 21.0-32.0 [facility] Globulin (S) [Mass/Vol] 4.5 g/dL 2.2-4.2 [facility] Natriuretic peptide B (Bld) [Mass/Vol] 5.1 pg/mL 0-100 [facility] Urea nitrogen/Creatinine [Mass ratio] 28.4 mg/mg 10-20 [facility] Laboratory - CoagulationOrde red By: Dr. Post on 05-03-2022 aPTT Coag (Bld) [Time] 28.3 s 24.1-36.2 [facility] PT Coag (PPP) [Time] 12.7 s 11.7-14.9 [facility] Laboratory - Hematology and Cell countsOrdered By: Dr. Post on 05-03-2022 Erythrocyte distribution width (RBC) [Entitic vol] 43.8 fL 35.1-43.9 [facility] Erythrocyte distribution width (RBC) [Ratio] 13.3 % 11.6-14.6 [facility] Immature granulocytes/100 WBC (Bld) 1.000 % 0.0-0.9 [facility] Comment on above: IG% - Immature Granu locytes (promyelocytes, myelocytes and metamyelocytes) > 1% indicates that a LEFT SHIFT is Present. MCH (RBC) [Entitic mass] 26.5 pg 27.0-32.0 [facility] Nucleated RBC/100 WBC (Bld) [Ratio] 0 % 0-5 [facility] Laboratory - Microbiology an d Antimicrobial susceptibilityOrdered By: Dr. Armas on 05-03-2022 Respiratory pathogens DNA and RNA 12b panel DEMETRI+probe (Unsp spec) [facility] MCHC Auto (RBC) [Mass/Vol]Or dered By: Dr. Post on 05-03-2022 MCHC (RBC) [Mass/Vol] 29.4 g/dL 32-36 [facility] Mucus LM Ql (Urine sed)Order ed By: Dr. Post on 05-03-2022 Mucus Ql (Urine sed) 0 SEEN /hpf [facility] Nitrite Test strip Ql (U)Ord ered By: Dr. Post on 05-03-2022 Nitrite Ql (U) Positive Negative [facility] No Panel InformationOrdered By: Dr. Post on 05-03-2022 Estimated Creatinine Clearance Calc 28.52 ml/min [facility] Estimated GFR (MDRD) Amer 32 mL/min >60 [facility] Comment on above: GFR Calc Estimated GFR (MDRD) Non-Af Amer 26 mL/min >60 [facility] Comment on above: Non- GFR Calc 12.7 SECONDS 11.7-14.9 [facility] 28.3 Seconds 24.1-36.2 [facility] 5.1 pg/mL 0-100 [facility] Platelets bldOrdered By: Dr. Post on 05-03-2022 Platelets (Bld) [#/Vol] 262 10*3/uL 150-450 [facility] Protein Test strip Ql (U)Ord ered By: Dr. Post on 05-03-2022 Protein Ql (U) 15 mg/dl Negative [facility] Serum or plasma albumin angela urement (mass/volume)Ordered By: Dr. Post on 05-03-2022 Albumin [Mass/Vol] 3.2 g/dL 3.2-5.0 [facility] Serum or plasma albumin/glob ulin mass ratioOrdered By: Dr. Post on 05-03-2022 Albumin/Globulin [Mass ratio] 0.7 {ratio} 0.9-2.4 [facility] Serum or plasma calcium angela urement (mass/volume)Ordered By: Dr. Post on 05-03-2022 Calcium [Mass/Vol] 10.1 mg/dL 8.5-10.1 [facility] Serum or plasma creatinine m easurement (mass/volume)Ordered By: Dr. Post on 05-03-2022 Creatinine [Mass/Vol] 2.04 mg/dL 0.55-1.02 [facility] Comment on above: The validity of the calculated GFR & GFRAA in patients over 70 years has not been determined. Clinical correlation is essential. Serum or plasma urea nitroge n measurement (mass/volume)Ordered By: Dr. Post on 05-03-2022 Urea nitrogen [Mass/Vol] 58 mg/dL 7-18 [facility] Squamous epithelial cells de tection in urine sediment by light microscopyOrdered By: Dr. Post on 05-03-2022 Epithelial cells.squamous LM Ql (Urine sed) 0-5 SEEN /hpf 5-10 [facility] Thin prep Papanicolaou smear with manual screeningOrdered By: Dr. Post on 05-03-2022 Thin prep Papanicolaou smear with manual screening 7 U/L 15-37 [facility] Thin prep Papanicolaou smear with manual screening 4 5-15 [facility] Urine blood detectionOrdered By: Dr. Post on 05-03-2022 RBC Ql (U) Negative Negative [facility] RBC Ql (U) 0 SEEN /hpf 0-5 [facility] Urine clarityOrdered By: Dr. Post on 05-03-2022 Clarity (U) Sl. Cloudy Clear [facility] Urine color determinationOrd ered By: Dr. Post on 05-03-2022 Color (U) Yellow Yellow [facility] Urine glucose detectionOrder ed By: Dr. Post on 05-03-2022 Glucose Ql (U) Normal mg/dl Normal [facility] Urine leukocyte esterase det ection by dipstickOrdered By: Dr. Post on 05-03-2022 Leukocyte esterase Test strip Ql (U) 100 /ul Negative [facility] Urine pHOrdered By: Dr. Rubén romero on 05-03-2022 pH (U) 6.5 [pH] 5.0 - 8.0 [facility] Urine sediment bacteria coun t by microscopy (number/high power field)Ordered By: Dr. Post on 05-03-2022 Bacteria LM.HPF (Urine sed) [#/Area] 2 /[HPF] None Seen [facility] Urine specific gravity measu rementOrdered By: Dr. Post on 05-03-2022 Specific gravity (U) [Rel density] 1.020 1.002-1.030 [facility] Urobilinogen Auto test strip Ql (U)Ordered By: Dr. Post on 05-03-2022 Urobilinogen Ql (U) Normal mg/dl Normal [facility] Basophil percentageOrdered B y: Dr. Patterson on 05-01-2022 Basophil percentage 121 mg/dL 74-106 [facility] Basophil percentage 135 mmol/L 136-145 [facility] Basophil percentage 4.3 mmol/L 3.5-5.1 [facility] Basophil percentage 91 mmol/L 98-107 [facility] Basophils (Bld) [#/Vol] 10.6 10*3/uL 4.4-11.0 [facility] Chloride [Moles/Vol] 91 mmol/L 98-107 [facility] Glucose [Mass/Vol] 121 mg/dL 74-106 [facility] Comment on above: Fasting Glucose resu lt from 100 to 125 mg/dL suggests IMPAIRED HOMEOSTASIS per A.D.A. criteria. Potassium [Moles/Vol] 4.3 mmol/L 3.5-5.1 [facility] Sodium [Moles/Vol] 135 mmol/L 136-145 [facility] WBC (Bld) [#/Vol] 10.6 10*3/uL 4.4-11.0 [facility] Blood erythrocytes count (nu mber/volume)Ordered By: Dr. Patterson on 05-01-2022 RBC (Bld) [#/Vol] 3.78 10*6/uL 4.2-5.4 [facility] Blood hemoglobin measurement (mass/volume)Ordered By: Dr. Patterson on 05-01-2022 Hemoglobin (Bld) [Mass/Vol] 10.2 g/dL 12.0-15.0 [facility] Blood platelet mean volumeOr dered By: Dr. Patterson on 05-01-2022 Platelet mean volume (Bld) [Entitic vol] 11.2 fL 6.2-12.0 [facility] Determination of erythrocyte mean corpuscular volume (MCV)Ordered By: Dr. Patterson on 05-01-2022 MCV (RBC) [Entitic vol] 89.9 fL 81-99 [facility] Hematocrit Auto (Bld) [Volum e fraction]Ordered By: Dr. Patterson on 05-01-2022 Hematocrit (Bld) [Volume fraction] 34.0 % 37-47 [facility] Laboratory - Chemistry and C hemistry - challengeOrdered By: Dr. Patterson on 05-01-2022 CO2 [Moles/Vol] 41.0 mmol/L 21.0-32.0 [facility] Magnesium [Mass/Vol] 1.7 mg/dL 1.6-2.6 [facility] Urea nitrogen/Creatinine [Mass ratio] 21.8 mg/mg 10-20 [facility] Laboratory - Hematology and Cell countsOrdered By: Dr. Patterson on 05-01-2022 Erythrocyte distribution width (RBC) [Entitic vol] 44.1 fL 35.1-43.9 [facility] Erythrocyte distribution width (RBC) [Ratio] 13.4 % 11.6-14.6 [facility] MCH (RBC) [Entitic mass] 27.0 pg 27.0-32.0 [facility] MCHC Auto (RBC) [Mass/Vol]Or dered By: Dr. Patterson on 05-01-2022 MCHC (RBC) [Mass/Vol] 30.0 g/dL 32-36 [facility] No Panel InformationOrdered By: Dr. Patterson on 05-01-2022 Estimated GFR (MDRD) Amer 37 mL/min >60 [facility] Comment on above: GFR Calc Estimated GFR (MDRD) Non-Af Amer 31 mL/min >60 [facility] Comment on above: Non- GFR Calc 27.0 pg 27.0-32.0 [facility] 13.4 % 11.6-14.6 [facility] 44.1 fl 35.1-43.9 [facility] 31 mL/min >60 [facility] 37 mL/min >60 [facility] 21.8 RATIO 10-20 [facility] 1.7 mg/dL 1.6-2.6 [facility] 41.0 mmol/L 21.0-32.0 [facility] Platelets bldOrdered By: Dr. Patterson on 05-01-2022 Platelets (Bld) [#/Vol] 231 10*3/uL 150-450 [facility] Serum or plasma calcium angela urement (mass/volume)Ordered By: Dr. Patterson on 05-01-2022 Calcium [Mass/Vol] 9.8 mg/dL 8.5-10.1 [facility] Serum or plasma creatinine m easurement (mass/volume)Ordered By: Dr. Patterson on 05-01-2022 Creatinine [Mass/Vol] 1.79 mg/dL 0.55-1.02 [facility] Comment on above: The validity of the calculated GFR & GFRAA in patients over 70 years has not been determined. Clinical correlation is essential. Serum or plasma urea nitroge n measurement (mass/volume)Ordered By: Dr. Patterson on 05-01-2022 Urea nitrogen [Mass/Vol] 39 mg/dL 7-18 [facility] Thin prep Papanicolaou smear with manual screeningOrdered By: Dr. Patterson on 05-01-2022 Thin prep Papanicolaou smear with manual screening 3 5-15 [facility] Whole blood hemoglobin A1c/t otal hemoglobin ratio (mass fraction)Ordered By: Dr. Patterson on 05-01-2022 HbA1c (Bld) [Mass fraction] 5.8 % 3.8-5.6 [facility] Comment on above: Normal < 5.7 % Predi abetic 5.7 - 6.4 % Diabetic >or= 6.5 % Please note range changes. Basophil percentageOrdered B y: Dr. Patterson on 04-11-2022 Basophil percentage 122 mg/dL 74-106 [facility] Basophil percentage 136 mmol/L 136-145 [facility] Basophil percentage 4.0 mmol/L 3.5-5.1 [facility] Basophil percentage 91 mmol/L 98-107 [facility] Chloride [Moles/Vol] 91 mmol/L 98-107 [facility] Glucose [Mass/Vol] 122 mg/dL 74-106 [facility] Comment on above: Fasting Glucose resu lt from 100 to 125 mg/dL suggests IMPAIRED HOMEOSTASIS per A.D.A. criteria. Potassium [Moles/Vol] 4.0 mmol/L 3.5-5.1 [facility] Sodium [Moles/Vol] 136 mmol/L 136-145 [facility] Laboratory - Chemistry and C hemistry - challengeOrdered By: Dr. Patterson on 04-11-2022 CO2 [Moles/Vol] 40.0 mmol/L 21.0-32.0 [facility] Urea nitrogen/Creatinine [Mass ratio] 29.2 mg/mg 10-20 [facility] No Panel InformationOrdered By: Dr. Patterson on 04-11-2022 Estimated GFR (MDRD) Amer 73 mL/min >60 [facility] Comment on above: GFR Calc Estimated GFR (MDRD) Non-Af Amer 61 mL/min >60 [facility] Comment on above: Non- GFR Calc 61 mL/min >60 [facility] 73 mL/min >60 [facility] 29.2 RATIO -20 [facility] 40.0 mmol/L 21.0-32.0 [facility] Serum or plasma calcium nagela urement (mass/volume)Ordered By: Dr. Patterson on 04-11-2022 Calcium [Mass/Vol] 9.8 mg/dL 8.5-10.1 [facility] Serum or plasma creatinine m easurement (mass/volume)Ordered By: Dr. Patterson on 04-11-2022 Creatinine [Mass/Vol] 0.99 mg/dL 0.55-1.02 [facility] Comment on above: The validity of the calculated GFR & GFRAA in patients over 70 years has not been determined. Clinical correlation is essential. Serum or plasma urea nitroge n measurement (mass/volume)Ordered By: Dr. Patterson on 04-11-2022 Urea nitrogen [Mass/Vol] 29 mg/dL 7-18 [facility] Thin prep Papanicolaou smear with manual screeningOrdered By: Dr. Patterson on 04-11-2022 Thin prep Papanicolaou smear with manual screening 5 5-15 [facility] Basophil percentageOrdered B y: Dr. Patterson on 04-05-2022 Basophil percentage 130 mg/dL 74-106 [facility] Basophil percentage 135 mmol/L 136-145 [facility] Basophil percentage 3.3 mmol/L 3.5-5.1 [facility] Basophil percentage 91 mmol/L 98-107 [facility] Chloride [Moles/Vol] 91 mmol/L 98-107 [facility] Glucose [Mass/Vol] 130 mg/dL 74-106 [facility] Comment on above: Fasting Glucose resu lt greater than or equal to 126 mg/dL suggests DIABETES MELLITUS per A.D.A. criteria. Potassium [Moles/Vol] 3.3 mmol/L 3.5-5.1 [facility] Sodium [Moles/Vol] 135 mmol/L 136-145 [facility] Laboratory - Chemistry and C hemistry - challengeOrdered By: Dr. Patterson on 04-05-2022 CO2 [Moles/Vol] 39.0 mmol/L 21.0-32.0 [facility] Urea nitrogen/Creatinine [Mass ratio] 25.6 mg/mg 10- [facility] No Panel InformationOrdered By: Dr. Patterson on 04-05-2022 Estimated GFR (MDRD) Amer 86 mL/min >60 [facility] Comment on above: GFR Calc Estimated GFR (MDRD) Non-Af Amer 71 mL/min >60 [facility] Comment on above: Non- GFR Calc 71 mL/min >60 [facility] 86 mL/min >60 [facility] 25.6 RATIO 10-20 [facility] 39.0 mmol/L 21.0-32.0 [facility] Serum or plasma calcium angela urement (mass/volume)Ordered By: Dr. Patterson on 04-05-2022 Calcium [Mass/Vol] 9.7 mg/dL 8.5-10.1 [facility] Serum or plasma creatinine m easurement (mass/volume)Ordered By: Dr. Patterson on 04-05-2022 Creatinine [Mass/Vol] 0.86 mg/dL 0.55-1.02 [facility] Comment on above: The validity of the calculated GFR & GFRAA in patients over 70 years has not been determined. Clinical correlation is essential. Serum or plasma urea nitroge n measurement (mass/volume)Ordered By: Dr. Patterson on 04-05-2022 Urea nitrogen [Mass/Vol] 22 mg/dL 7-18 [facility] Thin prep Papanicolaou smear with manual screeningOrdered By: Dr. Patterson on 04-05-2022 Thin prep Papanicolaou smear with manual screening 5 5-15 [facility] Absolute lymphocyte countOrd ered By: Dr. Patterson on 03-20-2022 Lymphocytes Auto (Unsp spec) [#/Vol] 2.48 10*3/uL 0.83-4.51 [facility] Basophil percentageOrdered B y: Dr. Patterson on 03-20-2022 Basophil percentage 120 mg/dL 74-106 [facility] Basophil percentage 7.0 g/dL 6.4-8.2 [facility] Basophil percentage 0.40 mg/dL 0.20-1.00 [facility] Basophil percentage 137 mg/dL <200 [facility] Basophil percentage 148 mg/dL <199 [facility] Basophil percentage 134 mmol/L 136-145 [facility] Basophil percentage 2.9 mmol/L 3.5-5.1 [facility] Basophil percentage 88 mmol/L 98-107 [facility] Basophils (Bld) [#/Vol] 9.1 10*3/uL 4.4-11.0 [facility] Basophils (Bld) [#/Vol] 5.5 10*3/uL 2.0-7.7 [facility] Basophils/100 WBC (Bld) 0.4 % 0-1 [facility] Basophils/100 WBC (Bld) 60.0 % 47-70 [facility] Basophils/100 WBC (Bld) 2.6 % 0-5 [facility] Bilirubin [Mass/Vol] 0.40 mg/dL 0.20-1.00 [facility] Comment on above: For patients on eltr ombopag therapy, use of Dimension Freeman TBIL is not recommended. Chloride [Moles/Vol] 88 mmol/L 98-107 [facility] Cholesterol [Mass/Vol] 137 mg/dL <200 [facility] Comment on above: <200 mg/dL Desirable 200-240 mg/dL Borderline >240 mg/dL High Risk Eosinophils/100 WBC (Bld) 2.6 % 0-5 [facility] Glucose [Mass/Vol] 120 mg/dL 74-106 [facility] Comment on above: Fasting Glucose resu lt from 100 to 125 mg/dL suggests IMPAIRED HOMEOSTASIS per A.D.A. criteria. Neutrophils (Bld) [#/Vol] 5.5 10*3/uL 2.0-7.7 [facility] Neutrophils/100 WBC (Bld) 60.0 % 47-70 [facility] Potassium [Moles/Vol] 2.9 mmol/L 3.5-5.1 [facility] Protein [Mass/Vol] 7.0 g/dL 6.4-8.2 [facility] Sodium [Moles/Vol] 134 mmol/L 136-145 [facility] Triglyceride [Mass/Vol] 148 mg/dL <199 [facility] Comment on above: The drugs N-Acetylcy steine and Metamizole may falsely depress this assay.Serum Triglycerides Reference Interval Normal <150 mg/dL Borderline high 150 - 199 mg/dL High 200 - 499 mg/dL Very High > or = 500 mg/dL WBC (Bld) [#/Vol] 9.1 10*3/uL 4.4-11.0 [facility] Blood erythrocytes count (nu mber/volume)Ordered By: Dr. Patterson on 03-20-2022 RBC (Bld) [#/Vol] 4.37 10*6/uL 4.2-5.4 [facility] Blood hemoglobin measurement (mass/volume)Ordered By: Dr. Patterson on 03-20-2022 Hemoglobin (Bld) [Mass/Vol] 11.6 g/dL 12.0-15.0 [facility] Blood lymphocytes/100 leukoc ytesOrdered By: Dr. Patterson on 03-20-2022 Lymphocytes/100 WBC (Bld) 27.3 % 19-41 [facility] Blood monocytes/100 leukocyt esOrdered By: Dr. Patterson on 03-20-2022 Monocytes/100 WBC (Bld) 9.0 % 0-10 [facility] Blood platelet mean volumeOr dered By: Dr. Patterson on 03-20-2022 Platelet mean volume (Bld) [Entitic vol] 12.2 fL 6.2-12.0 [facility] Determination of erythrocyte mean corpuscular volume (MCV)Ordered By: Dr. Patterson on 03-20-2022 MCV (RBC) [Entitic vol] 88.1 fL 81-99 [facility] Hematocrit Auto (Bld) [Volum e fraction]Ordered By: Dr. Patterson on 03-20-2022 Hematocrit (Bld) [Volume fraction] 38.5 % 37-47 [facility] Laboratory - Chemistry and C hemistry - challengeOrdered By: Dr. Patterson on 03-20-2022 ALP [Catalytic activity/Vol] 77 U/L 45-117 [facility] ALT [Catalytic activity/Vol] 19 U/L 13-56 [facility] CO2 [Moles/Vol] 40.0 mmol/L 21.0-32.0 [facility] Cobalamin (Vitamin B12) [Mass/Vol] 656 pg/mL 211-911 [facility] Globulin (S) [Mass/Vol] 4.0 g/dL 2.2-4.2 [facility] Magnesium [Mass/Vol] 1.6 mg/dL 1.6-2.6 [facility] Urea nitrogen/Creatinine [Mass ratio] 32.7 mg/mg 10-20 [facility] Laboratory - Hematology and Cell countsOrdered By: Dr. Patterson on 03-20-2022 Erythrocyte distribution width (RBC) [Entitic vol] 41.1 fL 35.1-43.9 [facility] Erythrocyte distribution width (RBC) [Ratio] 12.7 % 11.6-14.6 [facility] Immature granulocytes/100 WBC (Bld) 0.700 % 0.0-0.9 [facility] Comment on above: IG% - Immature Granu locytes (promyelocytes, myelocytes and metamyelocytes) > 1% indicates that a LEFT SHIFT is Present. MCH (RBC) [Entitic mass] 26.5 pg 27.0-32.0 [facility] Nucleated RBC/100 WBC (Bld) [Ratio] 0 % 0-5 [facility] MCHC Auto (RBC) [Mass/Vol]Or dered By: Dr. Patterson on 03-20-2022 MCHC (RBC) [Mass/Vol] 30.1 g/dL 32-36 [facility] No Panel InformationOrdered By: Dr. Patterson on 03-20-2022 Estimated GFR (MDRD) Amer 84 mL/min >60 [facility] Comment on above: GFR Calc Estimated GFR (MDRD) Non-Af Amer 69 mL/min >60 [facility] Comment on above: Non- GFR Calc Thyroid Stimulating Hormone (TSH) 0.44 uIU/mL 0.358-3.74 [facility] Vitamin D 25-Hydroxy 13.6 ng/mL [facility] Comment on above: Vitamin D 25(OH) Sta tus Range Deficiency <20 ng/mL (50nmol/L) Insufficiency 20 - 30 ng/mL (50 - 75 nmol/L) Sufficiency 30 - 100 ng/mL (75 - 250 nmol/L) Toxicity >100 ng/mL (>250 nmol/L) 26.5 pg 27.0-32.0 [facility] 12.7 % 11.6-14.6 [facility] 41.1 fl 35.1-43.9 [facility] 0.700 % 0.0-0.9 [facility] 0 % 0-5 [facility] 69 mL/min >60 [facility] 84 mL/min >60 [facility] 32.7 RATIO 10-20 [facility] 4.0 g/dL 2.2-4.2 [facility] 77 U/L 45-117 [facility] 19 U/L 13-56 [facility] 1.6 mg/dL 1.6-2.6 [facility] 40.0 mmol/L 21.0-32.0 [facility] 0.44 uIU/mL 0.358-3.74 [facility] 656 pg/mL 211-911 [facility] 13.6 ng/mL [facility] Platelets bldOrdered By: Dr. Patterson on 03-20-2022 Platelets (Bld) [#/Vol] 266 10*3/uL 150-450 [facility] Serum or plasma albumin angela urement (mass/volume)Ordered By: Dr. Patterson on 03-20-2022 Albumin [Mass/Vol] 3.0 g/dL 3.2-5.0 [facility] Serum or plasma albumin/glob ulin mass ratioOrdered By: Dr. Patterson on 03-20-2022 Albumin/Globulin [Mass ratio] 0.8 {ratio} 0.9-2.4 [facility] Serum or plasma calcium angela urement (mass/volume)Ordered By: Dr. Patterson on 03-20-2022 Calcium [Mass/Vol] 9.7 mg/dL 8.5-10.1 [facility] Serum or plasma cholesterol in HDL measurement (mass/volume)Ordered By: Dr. Patterson on 03-20-2022 Cholesterol in HDL [Mass/Vol] 59 mg/dL >40 [facility] Comment on above: The drugs N-Acetylcy steine and Metamizole may falsely depress this assay. Reference Range HDL <40 mg/dL Low HDL Cholesterol HDL >or= 60 mg/dL High HDL Cholesterol Serum or plasma cholesterol in VLDL measurement (mass/volume)Ordered By: Dr. Patterson on 03-20-2022 Cholesterol in VLDL [Mass/Vol] 30 mg/dL 5-40 [facility] Serum or plasma creatinine m easurement (mass/volume)Ordered By: Dr. Patterson on 03-20-2022 Creatinine [Mass/Vol] 0.89 mg/dL 0.55-1.02 [facility] Comment on above: The validity of the calculated GFR & GFRAA in patients over 70 years has not been determined. Clinical correlation is essential. Serum or plasma low density lipoprotein (LDL) cholesterol measurement (mass/volume)Ordered By: Dr. Patterson on 03-20-2022 Cholesterol in LDL [Mass/Vol] 48 mg/dL 0-130 [facility] Serum or plasma urea nitroge n measurement (mass/volume)Ordered By: Dr. Patterson on 03-20-2022 Urea nitrogen [Mass/Vol] 29 mg/dL 7-18 [facility] Thin prep Papanicolaou smear with manual screeningOrdered By: Dr. Patterson on 03-20-2022 Thin prep Papanicolaou smear with manual screening 12 U/L 15-37 [facility] Thin prep Papanicolaou smear with manual screening 6 5-15 [facility] Whole blood hemoglobin A1c/t otal hemoglobin ratio (mass fraction)Ordered By: Dr. Patterson on 03-20-2022 HbA1c (Bld) [Mass fraction] 6.1 % 3.8-5.6 [facility] Comment on above: Normal < 5.7 % Predi abetic 5.7 - 6.4 % Diabetic >or= 6.5 % Please note range changes. CMP FASTINGon 03-15-2022 A:G RATIO 1.2 RATIO Low 1.3-2.2 [facility] ALBUMIN 3.9 G/dl Normal 3.5-5.0 [facility] ALP [Catalytic activity/Vol] 81 U/L Normal 38-126 [facility] ALT [Catalytic activity/Vol] 13 U/L Normal <35 [facility] AST [Catalytic activity/Vol] 20 U/L Normal 14-36 [facility] Bilirubin [Mass/Vol] 0.4 mg/dL Normal 0.2-1.3 [facility] Calcium [Mass/Vol] 9.6 mg/dL Normal 8.4-10.2 [facility] Chloride [Moles/Vol] 92 mmol/L Low 98-107 [facility] Comment on above: Result Comment: Ian boogie note: Triglyceride levels of 600mg/dL or higher may positively bias chloride results by approximately 2.1 mmol CO2 [Moles/Vol] 36 mmol/L High 22-30 [facility] Creatinine [Mass/Vol] 0.69 mg/dL Low 0.7-1.2 [facility] EST. GFR, 112 ml/min/1.73sq.m [facility] EST. GFR,Non 92 ml/min/1.73sq.m [facility] GFR Information Average GFR for 60-6 9 years old = 85. [facility] Comment on above: Result Comment: [employer] heriberto Kidney disease, GFR = <60. Kidney failure, GFR = <15. The GFR estimate is not adjusted for extreme body surface area or acute process, nor has it been validated for women or ethnic groups other than and . Glucose [Mass/Vol] 125 mg/dL High 70-100 [facility] Comment on above: Result Comment: NORMAL <100 mg/dL PREDIABETES 101-126 mg/dL DIABETES 126 mg/dL or higher Potassium [Moles/Vol] 3.5 mmol/L Normal 3.5-5.1 [facility] Protein [Mass/Vol] 7.1 g/dL Normal 6.3-8.2 [facility] Sodium [Moles/Vol] 134 mmol/L Low 137-145 [facility] Urea nitrogen [Mass/Vol] 25 mg/dL High 7-20 [facility] FAX REQUESTon 03-15-2022 FAX TO [facility] XR SHOULDER RIGHT 2+ VIEWS ( STANDARD)on 03-08-2022 XR SHOULDER RIGHT 2+ VIEWS (STANDARD) EXAMINATION: XR SHOULDER RIGHT 2+ VIEWS (STANDARD) 03/08/2022 1:37 PM HISTORY: ORDERING SYSTEM PROVIDED HISTORY: Pain, TECHNOLOGIST PROVIDED HISTORY: Illness/Other Reason for exam: Pt fell a couple months ago, has had pain in the shoulder ever since, best images possible pt super morbidly obese and due to un related pains would not allow us to move her. Cancer History: uk Surgery, RadiationHistory: uk Encounter Type: Initial Additional signs and symptoms: na ORDERING SYSTEM PROVIDED DIAGNOSIS CODES: S82.891A Closed fracture of right ankle, initial encounter R53.1 Weakness generalized Z99.81 Supplemental oxygen dependent COMPARISON: Prior chest x-ray from 11/08/2021. FINDINGS: Three views of the right shoulder were obtained. There is moderate degenerative change of the acromioclavicular joint with joint space narrowing and spurring. There is spurring along the undersurface of the acromion. The glenohumeral alignment is anatomic. No acute fracture is identified. IMPRESSION: There is moderate degenerative change of the acromioclavicular joint with no acute fracture involving the right shoulder. [employer]alt Workstation ID: [id number] Dictated by: HERNANDEZ LEMUS on SunMar 08, 2022 3:00:48 PM EST Transcribed by: PATRICE KITCHEN on SunMar 08, 2022 3:14:23 PM EST Finalized by: HERNANDEZ LEMUS on SunMar 08, 2022 3:28:48 PM EST Normal [facility] Comment on above: Order Comment: Injur y/Trauma or Illness?:Illness/Other How long have you had these symptoms (acute/chronic)?:Acute Reason for exam?:Pt fell a couple months ago, has had pain in the shoulder ever since, best images possible pt super morbidly obese and due to un related pains would not allow us to move her. History of cancer?:uk Surgeries, chemotherapy, or radiation?:uk Type of Exam?:Initial Additional signs and symptoms?:na XR ANKLE RIGHT 2 VIEWSon XR ANKLE RIGHT 2 VIEWS EXAMINATION: RIGHT ANKLE, 2 VIEWS, 02/14/2022 COMPARISON: Right tibia/fibula dated 01/12/2022. HISTORY: ORDERING SYSTEM PROVIDED HISTORY: f/u fx, TECHNOLOGIST PROVIDED HISTORY: Injury/Trauma Reason for exam: Fx rt ankle Cancer History: uk Surgery, RadiationHistory: Encounter Type: Subsequent/Follow-up Mechanism of injury: Fall ORDERING SYSTEM PROVIDED DIAGNOSIS CODES: M25.571 Right ankle pain, unspecified chronicity IMPRESSION: 1. There is a moderate amount of healing callus at the medial malleolus. Although a fairly significant amount of callus has formed since the prior study, fracture healing is not believed complete as yet. 2. There appears to be very mild widening of the ankle mortise at the level of the medial malleolus - medial talar dome. 3. No new fracture is identified. 4. Moderate calcaneal spur formation at the plantar aspect more so than the Achilles insertion. 5. Soft tissue swelling diffusely about the ankle. 6. No additional significant abnormality or change. DP[employer]/trw Workstation ID: [id number] Dictated by: LEANNA AMOR on SunFeb 17, 2022 8:05:51 AM EST Transcribed by: LELAND DONG on SunFeb 17, 2022 8:08:22 AM EST Finalized by: LEANNA AMOR on SunFeb 17, 2022 8:36:28 AM EST Normal [facility] Comment on above: Order Comment: Injur y/Trauma or Illness?:Injury/Trauma How long have you had these symptoms (acute/chronic)?:Acute Reason for exam?:Fx rt ankle History of cancer?:uk Surgeries, chemotherapy, or radiation?: Type of Exam?:Subsequent/Follow-up Mechanism of injury?:Fall COVID-19, MOLECULARon 2021 SARS-CoV-2 (COVID-19) RNA DEMETRI+probe Ql (Unsp spec) Not detected Normal Not Detected [facility] Comment on above: Order Comment: This test was performed under the FDA's Emergency Use Authorization (EUA). Testing was performed using the Chencho SARS-CoV-2 RT-PCR Test on the [employer] System. This test has not been approved for use in asymptomatic patients and its performance in this patient population has not been evaluated. Negative results do not rule out the presence of SARS-CoV-2. Fact sheets for the EUA can be found at the following links: For Healthcare Providers: https://www.fda.gov/media/991149/download For Patients: https://www.fda.gov/media/724427/download Performed By: #### L [id number] #### [facility] [address] [address] Carly Carrera M.D. [id number] XR FOOT LEFT 3+ VIEWS (STAND JOSIAS)on 01-12-2022 XR FOOT LEFT 3+ VIEWS (STANDARD) EXAMINATION: XR FOOT LEFT 3+ VIEWS (STANDARD); XR FOOT RIGHT 3+ VIEWS (STANDARD); XR TIBIA FIBULA LEFT 2 VIEWS; XR TIBIA FIBULA RIGHT 2 VIEWS 01/12/2022 11:52 am HISTORY: ORDERING SYSTEM PROVIDED HISTORY: fall with laceration to 5th toe, TECHNOLOGIST PROVIDED HISTORY: Injury/Trauma Reason for exam: fall today Cancer History: uk Surgery, RadiationHistory: uk Encounter Type: Initial Mechanism of injury: fall with laceration to 5th toe ORDERING SYSTEM PROVIDED DIAGNOSIS CODES: COMPARISON: 10/30/2016 FINDINGS: Left lower extremity: No acute displaced fracture or dislocation identified. 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 The ankle appears congruent. The Lisfranc joint is intact on this nonweightbearing study. The midfoot is congruent mild osteoarthritis. Achilles enthesophyte inferior calcaneal spur noted. Hammertoe deformities are present. Right lower extremity: There is an acute moderately displaced transverse oblique fracture through the proximal fibula. The knee is congruent with osteoarthritis. There is also a mildly displaced medial malleolus fracture. The ankle mortise appears intact. The Lisfranc joint is congruent on this nonweightbearing study. The midfoot appears congruent. Achilles enthesophyte, inferior calcaneal spur and os peroneus are present. IMPRESSION: 1. Moderately displaced right proximal fibula and mildly displaced right medial malleolus fractures. 2. No acute fracture identified in the left lower extremity. Workstation ID: [id number] Dictated by: JAYDE REAL on [place]a Jan 12, 2022 12:46:58 PM EDT Transcribed by: JAYDE REAL on [place] Jan 12, 2022 12:46:58 PM EDT Finalized by: JAYDE REAL on [facility] Jan 12, 2022 12:46:58 PM EDT Normal [facility] Comment on above: Order Comment: Injur y/Trauma or Illness?:Injury/Trauma How long have you had these symptoms (acute/chronic)?:Acute Reason for exam?:fall today History of cancer?:uk Surgeries, chemotherapy, or radiation?: Type of Exam?:Initial Mechanism of injury?:fall with laceration to 5th toe XR FOOT RIGHT 3+ VIEWS (THERESA HARRIS)on 01-12-2022 XR FOOT RIGHT 3+ VIEWS (STANDARD) EXAMINATION: XR FOOT LEFT 3+ VIEWS (STANDARD); XR FOOT RIGHT 3+ VIEWS (STANDARD); XR TIBIA FIBULA LEFT 2 VIEWS; XR TIBIA FIBULA RIGHT 2 VIEWS 01/12/2022 11:52 am HISTORY: ORDERING SYSTEM PROVIDED HISTORY: fall with laceration to 5th toe, TECHNOLOGIST PROVIDED HISTORY: Injury/Trauma Reason for exam: fall today Cancer History: uk Surgery, RadiationHistory: uk Encounter Type: Initial Mechanism of injury: fall with laceration to 5th toe ORDERING SYSTEM PROVIDED DIAGNOSIS CODES: COMPARISON: 10/30/2016 FINDINGS: Left lower extremity: No acute displaced fracture or dislocation identified. 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 The ankle appears congruent. The Lisfranc joint is intact on this nonweightbearing study. The midfoot is congruent mild osteoarthritis. Achilles enthesophyte inferior calcaneal spur noted. Hammertoe deformities are present. Right lower extremity: There is an acute moderately displaced transverse oblique fracture through the proximal fibula. The knee is congruent with osteoarthritis. There is also a mildly displaced medial malleolus fracture. The ankle mortise appears intact. The Lisfranc joint is congruent on this nonweightbearing study. The midfoot appears congruent. Achilles enthesophyte, inferior calcaneal spur and os peroneus are present. IMPRESSION: 1. Moderately displaced right proximal fibula and mildly displaced right medial malleolus fractures. 2. No acute fracture identified in the left lower extremity. Workstation ID: [id number] Dictated by: JAYDE REAL on [facility] Jan 12, 2022 12:46:58 PM EDT Transcribed by: JAYDE REAL on [facility] Jan 12, 2022 12:46:58 PM EDT Finalized by: JAYDE REAL on [facility] Jan 12, 2022 12:46:58 PM EDT Normal [facility] Comment on above: Order Comment: Injur y/Trauma or Illness?:Injury/Trauma How long have you had these symptoms (acute/chronic)?:Acute Reason for exam?:fall today History of cancer?:uk Surgeries, chemotherapy, or radiation?:uk Type of Exam?:Initial Mechanism of injury?:limited rom XR TIBIA FIBULA LEFT 2 VIEWS on 01-12-2022 XR TIBIA FIBULA LEFT 2 VIEWS EXAMINATION: XR FOOT LEFT 3+ VIEWS (STANDARD); XR FOOT RIGHT 3+ VIEWS (STANDARD); XR TIBIA FIBULA LEFT 2 VIEWS; XR TIBIA FIBULA RIGHT 2 VIEWS 01/12/2022 11:52 am HISTORY: ORDERING SYSTEM PROVIDED HISTORY: fall with laceration to 5th toe, TECHNOLOGIST PROVIDED HISTORY: Injury/Trauma Reason for exam: fall today Cancer History: uk Surgery, RadiationHistory: uk Encounter Type: Initial Mechanism of injury: fall with laceration to 5th toe ORDERING SYSTEM PROVIDED DIAGNOSIS CODES: COMPARISON: 10/30/2016 FINDINGS: Left lower extremity: No acute displaced fracture or dislocation identified. 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 The ankle appears congruent. The Lisfranc joint is intact on this nonweightbearing study. The midfoot is congruent mild osteoarthritis. Achilles enthesophyte inferior calcaneal spur noted. Hammertoe deformities are present. Right lower extremity: There is an acute moderately displaced transverse oblique fracture through the proximal fibula. The knee is congruent with osteoarthritis. There is also a mildly displaced medial malleolus fracture. The ankle mortise appears intact. The Lisfranc joint is congruent on this nonweightbearing study. The midfoot appears congruent. Achilles enthesophyte, inferior calcaneal spur and os peroneus are present. IMPRESSION: 1. Moderately displaced right proximal fibula and mildly displaced right medial malleolus fractures. 2. No acute fracture identified in the left lower extremity. Workstation ID: [id number] Dictated by: JAYDE REAL on [facility] Jan 12, 2022 12:46:58 PM EDT Transcribed by: JAYDE REAL on [facility] Jan 12, 2022 12:46:58 PM EDT Finalized by: JAYDE REAL on [facility] Jan 12, 2022 12:46:58 PM EDT Normal [facility] Comment on above: Order Comment: Injur y/Trauma or Illness?:Injury/Trauma How long have you had these symptoms (acute/chronic)?:Acute Reason for exam?:fall History of cancer?:uk Surgeries, chemotherapy, or radiation?:uk Type of Exam?:Initial Mechanism of injury?:limited rom XR TIBIA FIBULA RIGHT 2 VIEW Son 01-12-2022 XR TIBIA FIBULA RIGHT 2 VIEWS EXAMINATION: XR FOOT LEFT 3+ VIEWS (STANDARD); XR FOOT RIGHT 3+ VIEWS (STANDARD); XR TIBIA FIBULA LEFT 2 VIEWS; XR TIBIA FIBULA RIGHT 2 VIEWS 01/12/2022 11:52 am HISTORY: ORDERING SYSTEM PROVIDED HISTORY: fall with laceration to 5th toe, TECHNOLOGIST PROVIDED HISTORY: Injury/Trauma Reason for exam: fall today Cancer History: uk Surgery, RadiationHistory: uk Encounter Type: Initial Mechanism of injury: fall with laceration to 5th toe ORDERING SYSTEM PROVIDED DIAGNOSIS CODES: COMPARISON: 10/30/2016 FINDINGS: Left lower extremity: No acute displaced fracture or dislocation identified. 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 The ankle appears congruent. The Lisfranc joint is intact on this nonweightbearing study. The midfoot is congruent mild osteoarthritis. Achilles enthesophyte inferior calcaneal spur noted. Hammertoe deformities are present. Right lower extremity: There is an acute moderately displaced transverse oblique fracture through the proximal fibula. The knee is congruent with osteoarthritis. There is also a mildly displaced medial malleolus fracture. The ankle mortise appears intact. The Lisfranc joint is congruent on this nonweightbearing study. The midfoot appears congruent. Achilles enthesophyte, inferior calcaneal spur and os peroneus are present. IMPRESSION: 1. Moderately displaced right proximal fibula and mildly displaced right medial malleolus fractures. 2. No acute fracture identified in the left lower extremity. Workstation ID: [id number] Dictated by: JAYDE REAL on SunJan 12, 2022 12:46:58 PM EDT Transcribed by: JAYDE REAL on SunJan 12, 2022 12:46:58 PM EDT Finalized by: JAYDE REAL on SunJan 12, 2022 12:46:58 PM EDT Normal [facility] Comment on above: Order Comment: Injur y/Trauma or Illness?:Injury/Trauma How long have you had these symptoms (acute/chronic)?:Acute Reason for exam?:Fall today per pt History of cancer?:uk Surgeries, chemotherapy, or radiation?:uk Type of Exam?:Initial Mechanism of injury?:limited rom XR CHEST PA/APon 11-08-2021 XR CHEST PA/AP EXAMINATION: XR CHEST PA/AP 11/08/2021 12:15 am HISTORY: ORDERING SYSTEM PROVIDED HISTORY: SOB, TECHNOLOGIST PROVIDED HISTORY: Illness/Other Reason for exam: sob Cancer History: uk Surgery, RadiationHistory: uk Encounter Type: Initial Additional signs and symptoms: n ORDERING SYSTEM PROVIDED DIAGNOSIS CODES: COMPARISON: CT chest 05/09/2021 FINDINGS: Enlarged cardiac silhouette. Mild bilateral lower opacity reflect mediastinal fat pad and/or linear atelectasis with crowding of pulmonary vessels. No large pleural effusions, pneumothorax or acute bony abnormality. IMPRESSION: Cardiomegaly. Mild bibasilar linear atelectasis with crowding of pulmonary vessels. Workstation ID: [id number] Dictated by: PROSPER FOFANA on SunNov 08, 2021 12:40:36 AM EDT Transcribed by: PROSPER FOFANA on SunNov 08, 2021 12:40:36 AM EDT Finalized by: PROSPER FOFANA on SunNov 08, 2021 12:40:36 AM EDT Normal [facility] Comment on above: Order Comment: This test was performed under the FDA's Emergency Use Authorization (EUA). Testing was performed using the Chencho Eloy SARS-CoV-2 RT-PCR AND Influenza A/B Nucleic Acid Test on the [employer] [facility] System. This test has not been approved for use in asymptomatic patients and its performance in this patient population has not been evaluated. Negative results do not rule out the presence of SARS-CoV-2, influenza A, and/or influenza B. Fact sheets for the EUA can be found at the following links: For Healthcare Providers: https://www.fda.gov/media/658970/download For Patients: https://www.fda.gov/media/345312/download COVID-19, MOLECULARon 2021 SARS-CoV-2 (COVID-19) RNA DEMETRI+probe Ql (Unsp spec) Not detected Normal Not Detected [facility] Comment on above: Order Comment: This test was performed under the FDA's Emergency Use Authorization (EUA). Testing was performed using the Chencho Eloy SARS-CoV-2 RT-PCR AND Influenza A/B Nucleic Acid Test on the [employer] System. This test has not been approved for use in asymptomatic patients and its performance in this patient population has not been evaluated. Negative results do not rule out the presence of SARS-CoV-2, influenza A, and/or influenza B. Fact sheets for the EUA can be found at the following links: For Healthcare Providers: https://www.fda.gov/media/345109/download For Patients: https://www.fda.gov/media/115699/download Performed By: #### L [id number] #### [facility] [address] [address] Carly Carrera M.D. [id number] CT PULMONARY ARTERIESon 04-11 CT PULMONARY ARTERIES EXAMINATION: CT PULMONARY ARTERIES HISTORY: ORDERING SYSTEM PROVIDED HISTORY: Pulmonary embolism (PE) suspected, unknown D-dimer, Reason for exam: 60yo F arrives via EMS with c/o abilio, pt reports she has anxiety, pt states "they normally give me medicine but I didn't have any" - pt has home 02 COMPARISON: 11/11/2020. TECHNIQUE: Helically acquired images were obtained of the chest following contrast as per pulmonary angiogram protocol with AEC is utilized. 2-D and 3D reconstructions were reviewed. FINDINGS: There is no evidence of pulmonary embolism, aortic aneurysm, or aortic dissection. The aortic arch branch vessels are grossly patent. The heart is enlarged. Coronary atherosclerotic calcifications. There is no pericardial effusion or thickening. There is no enlarged mediastinal or hilar adenopathy. No acute airspace disease. There are no pleural effusions. There are no enlarged (>3 mm) pulmonary nodules. There is no pneumothorax. There are no endobronchial lesions seen. The thyroid is homogeneous. No acute fracture. Degenerative changes of thoracic spine. There are no destructive bone lesions identified. Screening images of the upper abdomen shows hepatomegaly with fatty infiltration of the liver. Stable 1.5 cm right adrenal nodule. IMPRESSION: No evidence for pulmonary embolism, aortic aneurysm, or aortic dissection. FOLLOW-UP: Follow-up as clinically indicated. Workstation ID: [id number] Dictated by: GRIS MILLS on SunMay 09, 2021 3:25:56 AM EST Transcribed by: GRIS MILLS on SunMay 09, 2021 3:25:56 AM EST Finalized by: GRIS MILLS on SunMay 09, 2021 3:25:56 AM EST Normal [facility] Comment on above: Order Comment: Injur y/Trauma or Illness?:Illness/Other How long have you had these symptoms (acute/chronic)?:Acute Reason for exam?:60yo F arrives via EMS with c/o shakiness, pt reports she has anxiety, pt states "they normally give me medicine but I didn't have any" - pt has home 02 Type of Exam?:Initial Additional signs and symptoms?:60yo F arrives via EMS with c/o bridgetts, pt reports she has anxiety, pt states "they normally give me medicine but I didn't have any" - pt has home 02 XR CHEST PA/APon 05-09-2021 XR CHEST PA/AP EXAMINATION: XR CHEST PA/AP 05/09/2021 1:24 am HISTORY: ORDERING SYSTEM PROVIDED HISTORY: Weakness, sob, TECHNOLOGIST PROVIDED HISTORY: Illness/Other Reason for exam: weakness and sob Cancer History: uk Surgery, Radiation history: uk Encounter Type: Initial Additional signs and symptoms: shaking and anxiety ORDERING SYSTEM PROVIDED DIAGNOSIS CODES: COMPARISON: 11/14/2020 FINDINGS: Cardiomegaly is again noted with prominent mediastinal contours which can represent mediastinal lipomatosis similar to the prior. There is significant patient rotation to the right. A degree of atelectasis or infiltrate at the lung bases right greater than left is suggested and trace dependent effusions are not excluded however there is no large pleural effusion identified. There is moderate bronchial thickening and mild pulmonary vascular congestion. Most inferior right lung base and costophrenic angle is not included in the [id number]-dbuk. Body habitus obscures evaluation. There is no acute osseous abnormality. IMPRESSION: Cardiomegaly. Scattered areas of mild vascular congestion and bibasilar atelectasis, right greater than left. Trace dependent effusions are not excluded. No definite pneumothorax or large effusion. Significant obscuration due to body habitus. [facility] Workstation ID: [id number] Dictated by: GRISELDA PATTERSON on SunMay 09, 2021 1:48:37 AM EST Transcribed by: SELWYN YADAV on SunMay 09, 2021 1:51:41 AM EST Finalized by: GRISELDA PATTERSON on SunMay 09, 2021 2:12:41 AM EST Normal [facility] Comment on above: Order Comment: Injur y/Trauma or Illness?:Illness/Other How long have you had these symptoms (acute/chronic)?:Acute Reason for exam?:weakness and sob History of cancer?:uk Surgeries, chemotherapy, or radiation?:uk Type of Exam?:Initial Additional signs and symptoms?:shaking and anxiety Blood Gason 12-23-2020 HCO3 (Bld) [Moles/Vol] 37.6 mmol/L High 22 - 26 mmol/L [facility] Oxygen (Bld) [Partial pressure] 103 mm[Hg] High [facility] Hematologyon 03-31-2020 Hemoglobin (Bld) [Mass/Vol] 14.1 g/dL 12 - 16 g/dL [facility] pH (Bld) 7.33 [pH] Low [facility] Metabolic Panelon 03-31-2020 CO2 (Bld) [Partial pressure] 73.9 mm[Hg] High [facility] Otheron 03-31-2020 Base excess Calc (Bld) [Moles/Vol] 8.9 mmol/L High [facility] Hematocrit (BldA) [Volume fraction] 43.1 % 36 - 46 % [facility] Interpretation and review of laboratory results Abnormal [facility] SaO2% (BldA) [Mass fraction] 97.4 % 92 - 99 % [facility] Hematologyon 03-30-2020 Hematocrit (Bld) [Volume fraction] 41.4 % 36 - 46 % [facility] Hemoglobin (Bld) [Mass/Vol] 12.8 g/dL 12 - 16 g/dL [facility] MCH (RBC) [Entitic mass] 29.8 pg 26 - 34 pg [facility] MCV (RBC) [Entitic vol] 96.3 fL 80 - 100 fL [facility] Nucleated RBC (Bld) [#/Vol] 0.00 10*3/uL [facility] Platelets (Bld) [#/Vol] 234 10*3/uL [facility] RBC (Bld) [#/Vol] 4.30 10*6/uL [facility] WBC (Bld) [#/Vol] 7.33 10*3/uL [facility] Metabolic Panelon 03-30-2020 Anion gap [Moles/Vol] mmol/L Low 10 - 2 0 mmol/L [facility] Chloride [Moles/Vol] 93 mmol/L Low 98 - 10 8 mmol/L [facility] Creatinine [Mass/Vol] 0.96 mg/dL 0.40 - 1.10 [facility] GFR/1.73 sq M predicted among non-blacks MDRD (S/P/Bld) [Vol rate/Area] The eGFR should be used for monitoring renal function only and not for medication dosing. [facility] Glucose [Mass/Vol] 122 mg/dL High 65 - 99 mg/dL [facility] Potassium [Moles/Vol] 4.0 mmol/L 3.5 - 5.1 mmol/L [facility] Sodium [Moles/Vol] 138 mmol/L 135 - 145 mmol/L [facility] Urea nitrogen [Mass/Vol] 47 mg/dL High 8 - 25 mg/dL [facility] Urea nitrogen/Creatinine [Mass ratio] 49.0 mg/mg High [facility] Otheron 03-30-2020 GFR/1.73 sq M.predicted CKD-EPI (S/P/Bld) [Vol rate/Area] 65 >=60 mL/min/1.73 m2 [facility] HCO3 [Moles/Vol] mmol/L Critically high 21 - 32 mmol/L [facility] Interpretation and review of laboratory results Abnormal [facility] Erythrocyte distribution width (RBC) [Entitic vol] 12.3 % 11.6 - 14.8 % [facility] Interpretation and review of laboratory results Abnormal [facility] MCHC (RBC) [Mass/Vol] 30.9 g/dL Low 31 - 37 g/dL [facility] Nucleated RBC/100 WBC (Bld) [Ratio] 0.0 % [facility] Platelet mean volume (Bld) [Entitic vol] 11.2 fL 9.4 - 12.4 fL [facility] Hematologyon 03-29-2020 Hematocrit (Bld) [Volume fraction] 43.4 % 36 - 46 % [facility] Hemoglobin (Bld) [Mass/Vol] 13.1 g/dL 12 - 16 g/dL [facility] MCH (RBC) [Entitic mass] 29.4 pg 26 - 34 pg [facility] MCV (RBC) [Entitic vol] 97.5 fL 80 - 100 fL [facility] Nucleated RBC (Bld) [#/Vol] 0.01 10*3/uL [facility] Platelets (Bld) [#/Vol] 243 10*3/uL [facility] RBC (Bld) [#/Vol] 4.45 10*6/uL [facility] WBC (Bld) [#/Vol] 7.13 10*3/uL [facility] Metabolic Panelon 03-29-2020 Urea nitrogen [Mass/Vol] Sinus tachycardia with Fusion complexes Right bundle branch block Abnormal ECG When compared with ECG of 12-FEB-2017 05:17, Fusion complexes are now Present Confirmed by Danny Pa MD ([id number]) on 03/29/2020 12:26:51 PM [facility] Anion gap [Moles/Vol] mmol/L Low 10 - 2 0 mmol/L [facility] Chloride [Moles/Vol] 95 mmol/L Low 98 - 10 8 mmol/L [facility] Creatinine [Mass/Vol] 0.90 mg/dL 0.40 - 1.10 [facility] GFR/1.73 sq M predicted among non-blacks MDRD (S/P/Bld) [Vol rate/Area] The eGFR should be used for monitoring renal function only and not for medication dosing. [facility] Glucose [Mass/Vol] 109 mg/dL High 65 - 99 mg/dL [facility] Potassium [Moles/Vol] 4.4 mmol/L 3.5 - 5.1 mmol/L [facility] Sodium [Moles/Vol] 141 mmol/L 135 - 145 mmol/L [facility] Urea nitrogen [Mass/Vol] 36 mg/dL High 8 - 25 mg/dL [facility] Urea nitrogen/Creatinine [Mass ratio] 40.0 mg/mg High [facility] Otheron 03-29-2020 Interpretation and review of laboratory results Normal [facility] Natriuretic peptide.B prohormone N-Terminal [Mass/Vol] 288 pg/mL 0 - 300 pg/mL [facility] Pride Study Cut-offs Rule In: < /= 50 Years >450 pg/mL 51 Years - 75 Years >900 pg/mL 76 Years - 99 Years >1800 pg/mL Rule Out: All patients <300 pg/mL [facility] Atrial Rate 101 BPM [facility] P Mobridge 80 degrees [facility] P-R Interval 184 ms [facility] Q-T Interval 376 ms [facility] QRS Duration 132 ms [facility] QTC Calculation (Bezet) 487 ms O [facility] R Mobridge 88 degrees [facility] T Mobridge -3 degrees [facility] Ventricular Rate 101 BPM [facility] GFR/1.73 sq M.predicted CKD-EPI (S/P/Bld) [Vol rate/Area] 71 >=60 mL/min/1.73 m2 [facility] HCO3 [Moles/Vol] mmol/L Critically high 21 - 32 mmol/L [facility] Interpretation and review of laboratory results Abnormal [facility] Erythrocyte distribution width (RBC) [Entitic vol] 12.3 % 11.6 - 14.8 % [facility] Interpretation and review of laboratory results Abnormal [facility] MCHC (RBC) [Mass/Vol] 30.2 g/dL Low 31 - 37 g/dL [facility] Nucleated RBC/100 WBC (Bld) [Ratio] 0.1 % [facility] Platelet mean volume (Bld) [Entitic vol] 11.6 fL 9.4 - 12.4 fL [facility] Hematologyon 03-28-2020 Hematocrit (Bld) [Volume fraction] 39.9 % 36 - 46 % [facility] Hemoglobin (Bld) [Mass/Vol] 12.0 g/dL 12 - 16 g/dL [facility] MCH (RBC) [Entitic mass] 28.7 pg 26 - 34 pg [facility] MCV (RBC) [Entitic vol] 95.5 fL 80 - 100 fL [facility] Nucleated RBC (Bld) [#/Vol] 0.01 10*3/uL High [facility] Platelets (Bld) [#/Vol] 214 10*3/uL [facility] RBC (Bld) [#/Vol] 4.18 10*6/uL [facility] WBC (Bld) [#/Vol] 6.17 10*3/uL [facility] Metabolic Panelon 03-28-2020 Anion gap [Moles/Vol] 2 mmol/L Low 10 - 2 0 mmol/L [facility] Chloride [Moles/Vol] 96 mmol/L Low 98 - 10 8 mmol/L [facility] Creatinine [Mass/Vol] 0.84 mg/dL 0.40 - 1.10 [facility] GFR/1.73 sq M predicted among non-blacks MDRD (S/P/Bld) [Vol rate/Area] The eGFR should be used for monitoring renal function only and not for medication dosing. [facility] Glucose [Mass/Vol] 138 mg/dL High 65 - 99 mg/dL [facility] Potassium [Moles/Vol] 4.4 mmol/L 3.5 - 5.1 mmol/L [facility] Sodium [Moles/Vol] 135 mmol/L 135 - 145 mmol/L [facility] Urea nitrogen [Mass/Vol] 26 mg/dL High 8 - 25 mg/dL [facility] Urea nitrogen/Creatinine [Mass ratio] 31.0 mg/mg High [facility] Otheron 03-28-2020 GFR/1.73 sq M.predicted CKD-EPI (S/P/Bld) [Vol rate/Area] 77 >=60 mL/min/1.73 m2 [facility] HCO3 [Moles/Vol] 41 mmol/L Critically high 21 - 32 mmol/L [facility] Interpretation and review of laboratory results Abnormal [facility] Erythrocyte distribution width (RBC) [Entitic vol] 12.5 % 11.6 - 14.8 % [facility] Interpretation and review of laboratory results Abnormal [facility] MCHC (RBC) [Mass/Vol] 30.1 g/dL Low 31 - 37 g/dL [facility] Nucleated RBC/100 WBC (Bld) [Ratio] 0.2 % [facility] Platelet mean volume (Bld) [Entitic vol] 11.2 fL 9.4 - 12.4 fL [facility] Blood Gason 03-27-2020 HCO3 (Bld) [Moles/Vol] 41.3 mmol/L High 24 - 28 mmol/L [facility] HCO3 (Bld) [Moles/Vol] 41.3 mmol/L High 24 - 28 mmol/L [facility] HCO3 (Bld) [Moles/Vol] 42.0 mmol/L High 24 - 28 mmol/L [facility] Cardiacon 03-27-2020 Troponin I.cardiac [Mass/Vol] ng/mL <=45 ng/L [facility] Troponin I.cardiac [Mass/Vol] No biomarker evidence of cardiac injury. [facility] Troponin I.cardiac [Mass/Vol] Normal [facility] Troponin I.cardiac [Mass/Vol] ng/mL <=45 ng/L [facility] Hematologyon 03-27-2020 Hemoglobin (Bld) [Mass/Vol] 12.3 g/dL 12 - 16 g/dL [facility] Hemoglobin (Bld) [Mass/Vol] 12.6 g/dL 12 - 16 g/dL [facility] Hemoglobin (Bld) [Mass/Vol] 12.5 g/dL 12 - 16 g/dL [facility] Basophils (Bld) [#/Vol] 0.03 10*3/uL [facility] Basophils/100 WBC (Bld) 0.3 % [facility] Eosinophils (Bld) [#/Vol] 0.04 10*3/uL [facility] Eosinophils/100 WBC (Bld) 0.4 % [facility] Hematocrit (Bld) [Volume fraction] 40.3 % 36 - 46 % [facility] Hemoglobin (Bld) [Mass/Vol] 12.1 g/dL 12 - 16 g/dL [facility] Lymphocytes (Bld) [#/Vol] 1.50 10*3/uL [facility] Lymphocytes/100 WBC (Bld) 14.8 % [facility] MCH (RBC) [Entitic mass] 29.1 pg 26 - 34 pg [facility] MCV (RBC) [Entitic vol] 96.9 fL 80 - 100 fL [facility] Monocytes (Bld) [#/Vol] 0.81 10*3/uL [facility] Monocytes/100 WBC (Bld) 8.0 % [facility] Neutrophils (Bld) [#/Vol] 7.63 10*3/uL High [facility] Neutrophils/100 WBC (Bld) 75.1 % [facility] Nucleated RBC (Bld) [#/Vol] 0.01 10*3/uL High [facility] Platelets (Bld) [#/Vol] 211 10*3/uL [facility] RBC (Bld) [#/Vol] 4.16 10*6/uL [facility] ealth WBC (Bld) [#/Vol] 10.15 10*3/uL [facility] Metabolic Panelon 03-27-2020 Anion gap [Moles/Vol] mmol/L Low 10 - 2 0 mmol/L [facility] Calcium [Mass/Vol] 9.2 mg/dL 8.4 - 10. 2 mg/dL [facility] Chloride [Moles/Vol] 95 mmol/L Low 98 - 10 8 mmol/L [facility] Creatinine [Mass/Vol] 1.11 mg/dL High 0.40 - 1.10 [facility] GFR/1.73 sq M predicted among non-blacks MDRD (S/P/Bld) [Vol rate/Area] The eGFR should be used for monitoring renal function only and not for medication dosing. [facility] Glucose [Mass/Vol] 121 mg/dL High 65 - 99 mg/dL [facility] Potassium [Moles/Vol] 4.1 mmol/L 3.5 - 5.1 mmol/L [facility] Sodium [Moles/Vol] 139 mmol/L 135 - 145 mmol/L [facility] Urea nitrogen [Mass/Vol] 15 mg/dL 8 - 25 mg/dL [facility] Urea nitrogen/Creatinine [Mass ratio] 13.5 mg/mg [facility] Albumin [Mass/Vol] 3.0 g/dL Low 3.2 - 5.2 g/dL [facility] ALP [Catalytic activity/Vol] 88 U/L 40 - 150 U/L [facility] ALT [Catalytic activity/Vol] 13 U/L Low 14 - 65 U/L [facility] AST [Catalytic activity/Vol] 11 U/L 0 - 45 U/L [facility] Bilirubin [Mass/Vol] 0.4 mg/dL 0 - 1.3 mg/dL [facility] Bilirubin.conjugated [Mass/Vol] 0.1 mg/dL 0 - 0.4 mg/dL [facility] Protein [Mass/Vol] 7.7 g/dL 6 - 8 g/dL [facility] Otheron 03-27-2020 Base excess Calc (BldV) [Moles/Vol] 12.2 mmol/L High [facility] CO2 (BldV) [Partial pressure] 82.4 mm[Hg] High [facility] Hematocrit (BldA) [Volume fraction] 37.9 % 36 - 46 % [facility] Interpretation and review of laboratory results Abnormal [facility] Oxygen (BldV) [Partial pressure] 72 mm[Hg] High [facility] Oxygen saturation in Venous blood 94.9 % High 40 - 70 % [facility] pH (BldV) 7.32 [pH] [facility] Base excess Calc (BldV) [Moles/Vol] 10.8 mmol/L High [facility] CO2 (BldV) [Partial pressure] 95.0 mm[Hg] High [facility] Hematocrit (BldA) [Volume fraction] 38.6 % 36 - 46 % [facility] Interpretation and review of laboratory results Abnormal [facility] Oxygen (BldV) [Partial pressure] 68 mm[Hg] High [facility] Oxygen saturation in Venous blood 93.5 % High 40 - 70 % [facility] pH (BldV) 7.26 [pH] Low [facility] Ordered by an unspecified provider. [facility] Delta Gilliam MD 03/27/2020 2:05 AM Critical Care Performed by: Delta Gilliam MD Authorized by: Delta Gilliam MD Total critical care time: 30 minutes Critical care time was exclusive of separately billable procedures and treating other patients and teaching time. Critical care was necessary to treat or prevent imminent or life-threatening deterioration of the following conditions: respiratory failure. Critical care was time spent personally by me on the following activities: development of treatment plan with patient or surrogate, discussions with primary provider, evaluation of patient's response to treatment, examination of patient, obtaining history from patient or surrogate, ordering and performing treatments and interventions, ordering and review of radiographic studies, ordering and review of laboratory studies, pulse oximetry, re-evaluation of patient's condition and review of old charts. Subsequent provider of critical care: I assumed direction of critical care for this patient from another provider of my specialty. Comments: Severe COPD, co2 >100, bicarb 45, on BIPAP [facility] Extra Tube Hold for add-ons. [facility] Comment on above: Auto resulted. Influenza A Not Detected Not Detected [facility] Influenza B Not Detected Not Detected [facility] Interpretation and review of laboratory results Normal [facility] SARS-CoV-2 Not Detected Not Detected [facility] This test was performed under the FDA's Emergency Use Authorization (EUA). Testing was performed using the [employer]oy SARS-CoV-2 & Influenza A/B Nucleic Acid Test on the eloy [employer] System. This test has not been approved for use in asymptomatic patients and its performance in this patient population has not been evaluated. Negative results do not rule out the presence of SARS-CoV-2, influenza A, and/or influenza B. Fact sheets for the EUA can be found at the following links: For Healthcare Providers: https://www.fda.gov/m edia/365485/download For Patients: https://www.fda.gov/m edia/412322/download [facility] GFR/1.73 sq M.predicted CKD-EPI (S/P/Bld) [Vol rate/Area] 55 Low >=60 mL/min/1.73 m2 [facility] HCO3 [Moles/Vol] mmol/L Critically high 21 - 32 mmol/L [facility] Interpretation and review of laboratory results Abnormal [facility] Base excess Calc (BldV) [Moles/Vol] 10.1 mmol/L High [facility] CO2 (BldV) [Partial pressure] mm[Hg] High [facility] Hematocrit (BldA) [Volume fraction] 38.4 % 36 - 46 % [facility] Interpretation and review of laboratory results Abnormal [facility] Oxygen (BldV) [Partial pressure] 104 mm[Hg] High [facility] Oxygen saturation in Venous blood 98.5 % High 40 - 70 % [facility] pH (BldV) 7.21 [pH] Low [facility] Interpretation and review of laboratory results Abnormal [facility] Natriuretic peptide.B prohormone N-Terminal [Mass/Vol] 529 pg/mL High 0 - 300 pg/mL [facility] Pride Study Cut-offs Rule In: < /= 50 Years >450 pg/mL 51 Years - 75 Years >900 pg/mL 76 Years - 99 Years >1800 pg/mL Rule Out: All patients <300 pg/mL [facility] Interpretation and review of laboratory results Abnormal [facility] Lipase [Catalytic activity/Vol] 52 U/L Low 73 - 393 U/L [facility] EXAMINATION: XR CHES T PA/AP 03/27/2020 12:45 am HISTORY: ORDERING SYSTEM PROVIDED HISTORY: sob, TECHNOLOGIST PROVIDED HISTORY: Illness/Other Reason for exam: EMS states she's been short of breath all day. She wears 4L normally. EKG showed sinus tach. 20 G in the left AC" Cancer History: uk Surgery, RadiationHistory: uk Encounter Type: Initial Additional signs and symptoms: EMS states "she's been short of breath all day. She wears 4L normally. EKG showed sinus tach. 20 G in the left AC" ORDERING SYSTEM PROVIDED DIAGNOSIS CODES: COMPARISON: 02/12/2017 FINDINGS: There are mild bilateral wispy infiltrates not clearly present on the prior study. Heart size is normal. No mediastinal widening. Bones are intact. Normal upper abdomen. [facility] Subtle bilateral wispy infiltrates suggestive of a multifocal interstitial pneumonia such as COVID-19 pneumonia. Workstation ID: [id number] [facility] Interface, Rad In [facility] - 03/27/2020 1:19 AM EST EXAMINATION: XR CHEST PA/AP 03/27/2020 12:45 am HISTORY: ORDERING SYSTEM PROVIDED HISTORY: sob, TECHNOLOGIST PROVIDED HISTORY: Illness/Other Reason for exam: EMS states "she's been short of breath all day. She wears 4L normally. EKG showed sinus tach. 20 G in the left AC" Cancer History: uk Surgery, RadiationHistory: uk Encounter Type: Initial Additional signs and symptoms: EMS states she's been short of breath all day. She wears 4L normally. EKG showed sinus tach. 20 G in the left AC" ORDERING SYSTEM PROVIDED DIAGNOSIS CODES: COMPARISON: 02/12/2017 FINDINGS: There are mild bilateral wispy infiltrates not clearly present on the prior study. Heart size is normal. No mediastinal widening. Bones are intact. Normal upper abdomen. IMPRESSION: Subtle bilateral wispy infiltrates suggestive of a multifocal interstitial pneumonia such as COVID-19 pneumonia. Workstation ID: [id number] [facility] Erythrocyte distribution width (RBC) [Entitic vol] 12.8 % 11.6 - 14.8 % [facility] Immature granulocytes (Bld) [#/Vol] 0.14 10*3/uL [facility] Immature granulocytes/100 WBC (Bld) 1.40 % [facility] Comment on above: The IG parameter is the percentage of metamyelocytes, myelocytes and promyelocytes. An immature granulocyte count (IG) of 1% or more suggests the possibility of infection, an IG count of 3% is very likely related to an infection. Interpretation and review of laboratory results Abnormal [facility] MCHC (RBC) [Mass/Vol] 30.0 g/dL Low 31 - 37 g/dL [facility] Nucleated RBC/100 WBC (Bld) [Ratio] 0.1 % [facility] Platelet mean volume (Bld) [Entitic vol] 10.9 fL 9.4 - 12.4 fL [facility] Basic Metabolic Panelon Anion gap mmol/L Low 10 - 20 mmol/L [facility] Bicarbonate (HCO3) mmol/L Critically high 21 - 3 2 mmol/L [facility] BUN/Creatinine Ratio 6.6 mg/mg Low 10.0 - 20.0 [facility] Calcium 8.8 mg/dL Invalid Interpretation Code 8.4 - 10.2 mg/dL [facility] Chloride 89 mmol/L Low 98 - 108 mmol/L [facility] Creatinine 0.91 mg/dL Invalid Interpretation Code 0.4 - 1.1 mg/dL [facility] eGFR (non-black) The eGFR should be used for monitoring renal function only and not for medication dosing. Invalid Interpretation Code [facility] eGFR (non-black) 71 mL/min/{1.73_m2} Invalid Interpretation Code >=60 [facility] Glucose mass conc 97 mg/dL Invalid Interpretation Code 65 - 99 mg/dL [facility] Potassium molar conc 2.7 mmol/L Critically low 3.5 - 5.1 mmol/L [facility] [facility] Sodium 139 mmol/L Invalid Interpretation Code 135 - 145 mmol/L [facility] Urea nitrogen 6 mg/dL Low 8 - 25 mg/dL [facility] CBC Auto Differentialon Basophils Auto #/vol (Bld) 0.02 K/mcL Invalid Interpretation Code 0.00 - 0.30 [facility] Basophils/100 WBC Auto (Bld) 0.2 % Invalid Interpretation Code [facility] Eosinophils 0.20 K/mcL Invalid Interpretation Code 0.00 - 0.50 [facility] Eosinophils/100 leukocytes 2.0 % Invalid Interpretation Code [facility] Erythrocyte distribution width Auto Entitic volume (RBC) 13.4 % Invalid Interpretation Code 11.6 - 14.8 % [facility] Erythrocytes (RBC) 3.72 M/mcL Low 4.00 - 5.20 [facility] Hematocrit (HCT) 34.8 % Low 36 - 46 % [facility] Hemoglobin mass conc (Bld) 10.3 g/dL Low 12 - 16 g/dL [facility] Immature granulocytes #/vol (Bld) 0.07 K/mcL Invalid Interpretation Code 0.00 - 0.30 [facility] Immature granulocytes/100 WBC (Bld) 0.70 % Invalid Interpretation Code [facility] Comment on above: The IG parameter is the percentage of metamyelocytes, myelocytes, and promyelocytes. Lymphocytes 2.69 K/mcL Invalid Interpretation Code 0.90 - 4.00 [facility] Lymphocytes/100 leukocytes 27.1 % Invalid Interpretation Code [facility] MCH 27.7 pg Invalid Interpretation Code 26 - 34 pg [facility] MCHC mass conc (RBC) 29.6 g/dL Low 31 - 37 g/dL [facility] MCV 93.5 fL Invalid Interpretation Code 80 - 100 fL [facility] Monocytes 0.75 K/mcL Invalid Interpretation Code 0.30 - 0.90 [facility] Monocytes/100 leukocytes 7.6 % Invalid Interpretation Code [facility] Neutrophils 6.20 K/mcL Invalid Interpretation Code 1.70 - 7.00 [facility] Neutrophils/100 WBC Auto (Bld) 62.4 % Invalid Interpretation Code [facility] Nucleated erythrocytes 0.00 K/mcL Invalid Interpretation Code 0.00 - 0.00 [facility] Nucleated erythrocytes/100 erythrocytes 0.0 % Invalid Interpretation Code [facility] Platelet mean volume (PMV) 11.3 fL Invalid Interpretation Code 9 - 15.5 fL [facility] Platelets 230 K/mcL Invalid Interpretation Code 150 - 400 [facility] WBC (Leukocytes) 9.93 K/mcL Invalid Interpretation Code 4.50 - 11.00 [facility] CBC and Differentialon 02-12 Creatinine The following orders were created for panel order CBC and Differential. Procedure Abnormality Status --------- ------ CBC Auto Differential[[id number]] Abnormal Final result Please view results for these tests on the individual orders. Invalid Interpretation Code [employer] Work Phone: ECG 12 Leadon 02-12-2017 Atrial Rate 102 BPM Invalid Interpretation Code [id number] BUN (urea nitrogen) Sinus tachycardia Right bundle branch block Abnormal ECG When compared with ECG of 30-OCT-2016 09:16, Right bundle branch block is now present Confirmed by Kingston Andrew MD ([id number]) on 02/12/2017 8:29:41 AM Invalid Interpretation Code PHY300 P Mobridge 67 degrees Invalid Interpretation Code [id number] P-R Interval 170 ms Invalid Interpretation Code [id number] Q-T Interval 380 ms Invalid Interpretation Code UZX226 QRS Duration 128 ms Invalid Interpretation Code IJN257 QTC Calculation (Bezet) 495 ms Invalid Interpretation Code WON106 R Mobridge 73 degrees Invalid Interpretation Code HIC027 T Mobridge 4 degrees Invalid Interpretation Code IQG349 Ventricular Rate 102 BPM Invalid Interpretation Code MIA753 Gold Topon 02-12-2017 Extra Tube Hold for add-ons. Invalid Interpretation Code [facility] Comment on above: Auto resulted. Magnesium Levelon 02-12-2017 Magnesium 1.7 mg/dL Invalid Interpretation Code 1.6 - 2.4 mg/dL [facility] NT Pro BNPon 02-12-2017 BNP 169 pg/mL High 0 - 125 pg/mL [facility] Interpretation and review of laboratory results Abnormal Invalid Interpretation Code [facility] NT Pro BNP Pride Study Cut-offs Rule In: < /= 50 Years >450 pg/mL 51 Years- 75 Years >900 pg/mL 76 Years - 99 Years >1800 pg/mL Rule Out: All patients <300 pg/mL Invalid Interpretation Code [facility] PT/INRon 02-12-2017 INR Coag RelTime (Bld) During the induct ion phase of oral anticoagulation, the INR may not reflect the anticoagulation status of the patient. Therapeutic ranges for INR's are: Most clinical situations: INR 2.0-3.0 Mechanical Prosthetic Valve: INR 2.5-3.5 Critical: INR >5.0 Invalid Interpretation Code [facility] INR Coag RelTime (PPP) 0.9 {INR} Invalid Interpretation Code 0.8 - 1.1 [facility] Interpretation and review of laboratory results Normal Invalid Interpretation Code [facility] Prothrombin time (PT) Coag time (PPP) 12 s Invalid Interpretation Code 11.8 - 14.3 [facility] [place] Drawon 02-12-2017 Creatinine The following orders were created for panel order [place] Draw. Procedure Abnormality Status --------- ------ Gold Top[[id number]] Final result Light Blue Top[[id number]] Final result Please view results for these tests on the individual orders. Invalid Interpretation Code [employer] Work Phone: Troponinon 02-12-2017 Troponin I.cardiac mass conc ng/mL Invalid Interpretation Code <=45 ng/L [facility] Comment on above: The "2014 AHA/ACC Gu ideline for the Management of Patients With Xva-YY-Jzmpnelog Acute Coronary Syndromes" defines myocardial infarction (NV) as follows: 1. For troponin-I value above the 45 ng/L (99th percentile) cut-off, a rise or fall greater than or equal to 20% from the initial value is indicative of NV, in conjunction with the appropriate clinical symptoms. 2. For troponin-I value less than 45ng/L an absolute value change greater than or equal to 8ng/L is indicative of myocardial necrosis. XR Chest 1 Viewon 02-12-2017 XR Chest 1 View EXAMINATION: XR CHES T PA/AP, 02/12/2017 HISTORY: sob COMPARISON: Chest, 10/30/2016. FINDINGS: Cardiac size, mediastinal contour and pulmonary vascularity are within normal limits. Allowing for mild underpenetration of the lung bases due to body habitus, the lungs and pleural spaces appear grossly clear. Invalid Interpretation Code [facility] XR Chest 1 View Interface, Rad In Pacs [employer] - 02/12/2017 7:08 AM EST EXAMINATION: XR CHEST PA/AP, 02/12/2017 HISTORY: sob COMPARISON: Chest, 10/30/2016. FINDINGS: Cardiac size, mediastinal contour and pulmonary vascularity are within normal limits. Allowing for mild underpenetration of the lung bases due to body habitus, the lungs and pleural spaces appear grossly clear. IMPRESSION: No gross evidence of acute cardiopulmonary disease. WPT/tde Workstation ID: [id number] Invalid Interpretation Code [facility] XR Chest 1 View No gross evidence of acute cardiopulmonary disease. WPT/tde Workstation ID: [id number] Invalid Interpretation Code [facility] BASIC METABOLIC PANELon 08-0 Anion gap 13.0 mmol/L Normal <=15.0 [facility] Comment on above: Performed By: #### 2 4321-2 ####[facility], [place] [address]Akrofcx Director - Roxane Childress [id number] Calcium 9.2 mg/dL Normal 8.5-10.1 [facility] Comment on above: Performed By: #### 2 4321-2 ####[facility], [place] [address]Qsxkogf Director - Roxane Childress [id number] Chloride 99 mmol/L Normal 98-107 [facility] Comment on above: Performed By: #### 2 4321-2 ####[facility], [place] [address]Rejrvoj Director - Roxaneanjel Childress [id number] CO2 26 mmol/L Normal 21-32 [facility] Comment on above: Performed By: #### 2 4321-2 ####[facility], [place] [address]Sovhgzi Director - Roxane Childress [id number] Creatinine 1.26 mg/dL High 0.51-0.95 [facility] Comment on above: Performed By: #### 2 4321-2 ####[facility], [place] [address]Dginpek Director - Roxane Childress [id number] eGFR (MDRD) 44 mL/min/{1.73_m2} Low >=59 [facility] Comment on above: Performed By: #### 2 4321-2 ####[facility], [place] [address]Ejtvjkh [place] [id number] eGFR (non-black) GLOMERULAR FILTRATIO N RATE INTERPRETATION~The eGFR is calculated using the MDRD equation.~This equation has been validated in patients with chronic kidney disease;~however, it underestimates the GFR in healthy patients with GFR's over 60 mL/min.~The equation is not valid in children under the age of 18.~NOTE: Criteria for Chronic Kidney Disease:~ ~1. Kidney damage for at least three months, as defined~by structural or functional abnormalities of the kidney,~with or without decreased glomerular filtration rate, manifested by either:~* Pathological abnormalities or~* Markers of Kidney damage, including abnormalities in~the composition of the blood or urine or abnormalities in imaging tests.~ ~2. GFR <60 mL/min/1.73 m squared for at least three months, with or without kidney damage.~ Normal [facility] Comment on above: Performed By: #### 2 4321-2 ####[facility] Director [facility] [id number] Glucose mass conc 87 mg/dL Normal 74-106 [facility] Comment on above: Performed By: #### 2 4321-2 ####[place] [address] [id number] Potassium molar conc 4.8 mmol/L Normal 3.5-5.1 [facility] Comment on above: Performed By: #### 2 4321-2 ####[facility] [id number] Sodium 138 mmol/L Normal 136-145 [facility] Comment on above: Performed By: #### 2 4321-2 ####[place] [address] [id number] Urea nitrogen 35 mg/dL High 7-17 [facility] Comment on above: Performed By: #### 2 4321-2 ####[place] [address] Director - Roxane Childress [id number] BASIC METABOLIC PANELon 07-3 Anion gap 7.0 mmol/L Normal <=15.0 [facility] Comment on above: Performed By: #### 2 4321-2 ####[facility] Director - Roxane Childress [id number] Calcium 9.6 mg/dL Normal 8.5-10.1 [facility] Comment on above: Performed By: #### 2 4321-2 ####[facility] Director - Roxane Childress [id number] Chloride 97 mmol/L Low 98-107 [facility] Comment on above: Performed By: #### 2 4321-2 ####[facility] Director - Roxane Childress [id number] CO2 32 mmol/L Normal 21-32 [facility] Comment on above: Performed By: #### 2 4321-2 ####[facility] Director - Roxane Childress [id number] Creatinine 0.99 mg/dL High 0.51-0.95 [facility] Comment on above: Performed By: #### 2 4321-2 ####[facility] Director - Roxane Childress [id number] eGFR (MDRD) 58 mL/min/{1.73_m2} Low >=59 [facility] Comment on above: Performed By: #### 2 4321-2 ####[facility] Director - Roxane Childress [id number] eGFR (non-black) GLOMERULAR FILTRATIO N RATE INTERPRETATION~The eGFR is calculated using the MDRD equation.~This equation has been validated in patients with chronic kidney disease;~however, it underestimates the GFR in healthy patients with GFR's over 60 mL/min.~The equation is not valid in children under the age of 18.~NOTE: Criteria for Chronic Kidney Disease:~ ~1. Kidney damage for at least three months, as defined~by structural or functional abnormalities of the kidney,~with or without decreased glomerular filtration rate, manifested by either:~* Pathological abnormalities or~* Markers of Kidney damage, including abnormalities in~the composition of the blood or urine or abnormalities in imaging tests.~ ~2. GFR <60 mL/min/1.73 m squared for at least three months, with or without kidney damage.~ Normal [facility] Comment on above: Performed By: #### 2 4321-2 ####[facility] Director - Roxane [facility]ks[facility]arTr[facility] [id number] Glucose mass conc 100 mg/dL Normal 74-106 [facility] Comment on above: Performed By: #### 2 4321-2 ####[facility] Director - Roxane Luis [facility] [id number] Potassium molar conc 5.4 mmol/L High 3.5-5.1 [facility] Comment on above: Performed By: #### 2 4321-2 ####[facility] Director - [facility] [id number] Sodium 136 mmol/L Normal 136-145 [facility] Comment on above: Performed By: #### 2 4321-2 ####[facility] Director - [facility] [id number] Urea nitrogen 21 mg/dL High 7-17 [facility] Comment on above: Performed By: #### 2 4321-2 ####[facility] Director - Roxane MoveinBlueanastaciaMOUNT ASCUTNEY [facility]OS[facility] [id number] CULTURE STOOLon 11-05-2016 EP Pnl Stl PCR No enteric pathogens Normal NO EN TERIC PATHOGENS [facility] Comment on above: Result Comment: Not detected for Campylobacter group, Salmonella species, Shigella species, Vibrio Group, Yersinia enterocolitica, EHEC (Shiga Toxin 1, Shiga Toxin 2), Norovirus GI/GII, and Rotavirus A. Other common stool pathogens are not detected on this panel include: Aeromonas/Plesiomonas or parasites. Order testing for these organisms separately if suspected. This is an amplified DNA test which makes it both specific and sensitive. Performed By: #### S TOOL ####[place] [address] Director - Roxane [place] [id number] STOOL CLOSTRIDIUM DIFFICILEo n 11-05-2016 C DIFF Ag NOT DETECTED Normal NOT DETECTED [facility] Comment on above: Performed By: #### 3 4713-8 ####[place] [address] Director - Roxane [place] [id number] C difficile presence in stool NOT DETECTED Normal NOT DETECTED [facility] Comment on above: Performed By: #### 3 4713-8 ####[place] [address] Director - [facility] [id number] STOOL OVA and PARASITES RAPI Don 11-05-2016 Cryptosp Ag Stl Ql EIA Negative Normal NEGATIVE [facility] Comment on above: Performed By: #### 4 8063-2 ####[place] [address] Director - [facility] [id number] Giardia lamblia antigen presence Negative Normal NEGATIVE [facility] Comment on above: Performed By: #### 4 8063-2 ####[place] [address] Director - [facility] [id number] Vital Signs Date Time Vital Sign Value Performing Clinician Facility 09-22-2024 08:23-0400 Body height 170.[address] Heath Macario DO Work Phone: [facility] 09-22-2024 08:23-0400 Body mass index (BMI) [Ratio] 48.9 kg/m2 Dr. Heath Macario DO Work Phone: [facility] 09-22-2024 08:23-0400 Body weight 141.[address] Heath Macario DO Work Phone: [facility] 09-22-2024 08:23-0400 Diastolic blood pressure 62 mm[Hg] Dr. Heath Macario DO Work Phone: [facility] 09-22-2024 08:23-0400 Heart rate 92 /min Dr. Heath Macario DO Work Phone: [facility] 09-22-2024 08:23-0400 Respiratory rate 20 /min Dr. Heath Macario DO Work Phone: [facility] 09-22-2024 08:23-0400 Systolic blood pressure 95 mm[Hg] Dr. Heath Macario DO Work Phone: [facility] 05-20-2024 08:39-0500 Body height 170.[address] Sepideh Patterson MD [facility] 05-20-2024 08:39-0500 Body mass index (BMI) [Ratio] 48.9 kg/m2 Dr. Sepideh Patterson MD [facility] 05-20-2024 08:39-0500 Body weight 141.[address] Sepideh Patterson MD [facility] 05-20-2024 08:39-0500 Diastolic blood pressure 69 mm[Hg] Dr. Sepideh Patterson MD [facility] 05-20-2024 08:39-0500 Heart rate 96 /min Dr. Sepideh Patterson MD [facility] 05-20-2024 08:39-0500 Inhaled oxygen flow rate 4 L/min Dr. Sepideh Patterson MD [facility] 05-20-2024 08:39-0500 Respiratory rate 20 /min Dr. Sepideh Patterson MD [facility] 05-20-2024 08:39-0500 SaO2% (BldA) [Mass fraction] 90 % Dr. Sepideh Patterson MD [facility] 05-20-2024 08:39-0500 Systolic blood pressure 112 mm[Hg] Dr. Sepideh Patterson MD [facility] 07-27-2023 14:19-0400 Body temperature 98 [degF] Dr. Sepideh Patterson [facility] 07-27-2023 14:19-0400 Diastolic blood pressure 73 mm[Hg] Dr. Sepideh Patterson [facility] 07-27-2023 14:19-0400 Heart rate 104 /min Dr. Sepideh Patterson [facility] 07-27-2023 14:19-0400 Inhaled oxygen flow rate 4 L/[facility] 07-27-2023 14:19-0400 Respiratory rate 18 /min Dr. Sepideh Patterson [facility] 07-27-2023 14:19-0400 SaO2% (BldA) [Mass fraction] 99 % [facility]-27-[facility]23 14:19-0400 Systolic blood pressure 117 mm[Hg] [facility] 07-27-2023 06:00-0400 Body mass index (BMI) [Ratio] 52.5 kg/m2 [facility] 07-27-2023 06:00-0400 Body weight 147.[address] Sepideh Patterson [facility] 07-27-2023 02:29-0400 Inhaled oxygen concentration 40 % [facility] 07-26-2023 16:35-0400 Body height 167.[address] Sepideh Patterson [facility] 07-26-2023 15:04-0400 Body temperature 97.4 [degF] Dr. Sepideh Patterson [facility] 07-26-2023 15:04-0400 Diastolic blood pressure 79 mm[Hg] Dr. Sepideh Patterson [facility] 07-26-2023 15:04-0400 Heart rate 85 /[facility] 07-26-2023 15:04-0400 Respiratory rate 21 /min Dr. Sepideh Patterson [facility] 07-26-2023 15:04-0400 SaO2% (BldA) [Mass fraction] 95 % [facility] 07-26-2023 15:04-0400 Systolic blood pressure 136 mm[Hg] Dr. Sepideh Patterson [facility] 07-26-2023 14:19-0400 Body mass index (BMI) [Ratio] 57.6 kg/m2 [facility] 07-26-2023 14:19-0400 Body weight 161.[address] [facility] 07-26-2023 13:48-0400 Inhaled oxygen concentration 40 % [facility] 07-26-2023 12:54-0400 Inhaled oxygen flow rate 3 L/[facility] 07-26-2023 11:59-0400 Body height 167.[address] [facility] 04-20-2023 10:59-0500 Body temperature 97.6 [degF] [facility]-20-2023 10:59-0500 Diastolic blood pressure 71 mm[Hg] Dr. Sepideh Patterson [facility] 04-20-2023 10:59-0500 Heart rate 97 /min Dr. Sepideh Patterson [facility] 04-20-2023 10:59-0500 Inhaled oxygen flow rate 3 L/[facility] 04-20-2023 10:59-0500 Respiratory rate 16 /min Dr. Sepideh Patterson [facility] 04-20-2023 10:59-0500 SaO2% (BldA) [Mass fraction] 99 % Dr. Sepideh Patterson [facility] 04-20-2023 10:59-0500 Systolic blood pressure 147 mm[Hg] Dr. Sepideh Patterson [facility] 04-20-2023 03:04-0500 Body mass index (BMI) [Ratio] 57.6 kg/m2 Dr. Sepideh Patterson [facility] 04-20-2023 03:04-0500 Body weight 161.[address] Sepideh Patterson [facility] 04-18-2023 00:34-0500 Inhaled oxygen concentration 45 % Dr. Sepideh Patterson [facility] 04-17-2023 12:57-0500 Body height 167.[address] Sepideh Patterson [facility] 04-16-2023 17:00-0500 Diastolic blood pressure 87 mm[Hg] [facility] 04-16-2023 17:00-0500 Heart rate 101 /min [facility] 04-16-2023 17:00-0500 Respiratory rate 16 /min [facility] 04-16-2023 17:00-0500 SaO2% (BldA) [Mass fraction] 98 % [facility] 04-16-2023 17:00-0500 Systolic blood pressure 135 mm[Hg] [facility] 04-16-2023 15:15-0500 Inhaled oxygen flow rate 5 L/min [facility] 04-16-2023 13:16-0500 Body height 167.64 cm [facility] 04-16-2023 13:16-0500 Body mass index (BMI) [Ratio] 50.7 kg/m2 [facility] 04-16-2023 13:16-0500 Body temperature 96 [degF] [facility] 04-16-2023 13:16-0500 Body weight 142.6 kg [facility] 01-18-2023 00:01-0400 Heart rate 93 /min [facility] 01-18-2023 00:01-0400 Inhaled oxygen flow rate 4 L/min [facility] 01-18-2023 00:01-0400 Respiratory rate 21 /min [facility] 01-18-2023 00:01-0400 SaO2% (BldA) [Mass fraction] 93 % [facility] 01-17-2023 22:32-0400 Diastolic blood pressure 92 mm[Hg] [facility] 01-17-2023 22:32-0400 Systolic blood pressure 166 mm[Hg] [facility] 01-17-2023 22:03-0400 Body height 170.18 cm [facility] 01-17-2023 22:03-0400 Body mass index (BMI) [Ratio] 59.1 kg/m2 [facility] 01-17-2023 22:03-0400 Body temperature 97.5 [degF] [facility] 01-17-2023 22:03-0400 Body weight 171.1 kg [facility] 12-02-2022 01:42-0400 Heart rate 95 /min Dr. Sepideh Patterson [facility] 12-02-2022 01:42-0400 Respiratory rate 20 /[facility] 12-02-2022 01:42-0400 SaO2% (BldA) [Mass fraction] 94 % [facility] 12-02-2022 00:58-0400 Body temperature 98.3 [degF] Dr. Sepideh Patterson [facility] 12-02-2022 00:58-0400 Diastolic blood pressure 135 mm[Hg] Dr. Sepideh Patterson [facility] 12-02-2022 00:58-0400 Inhaled oxygen flow rate 4 L/[facility] 12-02-2022 00:58-0400 Systolic blood pressure 158 mm[Hg] Dr. Sepideh Patterson [facility] 12-02-2022 00:39-0400 Body height 170.[address] Sepideh Patterson [facility] 12-02-2022 00:39-0400 Body mass index (BMI) [Ratio] 60 kg/m2 [facility] 12-02-2022 00:39-0400 Body weight [address] [facility] 09-12-2022 12:18-0400 Body temperature 97.8 [degF] Dr. Sepideh Patterson [facility] 09-12-2022 12:18-0400 Diastolic blood pressure 68 mm[Hg] Dr. Sepideh Patterson [facility] 09-12-2022 12:18-0400 Heart rate 97 /min [facility] 09-12-2022 12:18-0400 Inhaled oxygen flow rate 4 L/[facility] 09-12-2022 12:18-0400 Respiratory rate 16 /min [facility] 09-12-2022 12:18-0400 SaO2% (BldA) [Mass fraction] 95 % [facility] 09-12-2022 12:18-0400 Systolic blood pressure 137 mm[Hg] [facility] 09-12-2022 05:40-0400 Body mass index (BMI) [Ratio] 62.4 kg/m2 Dr. VelazquezSepideh [facility] 09-12-2022 05:40-0400 Body weight 176.[address] [facility] 09-12-2022 03:50-0400 Inhaled oxygen concentration 40 % [facility] 09-09-2022 09:23-0400 Body height 167.[address] [facility] 09-08-2022 02:55-0400 Body temperature 97.6 [degF] [facility]-08-2022 02:55-0400 Diastolic blood pressure 94 mm[Hg] [facility] 09-08-2022 02:55-0400 Heart rate 105 /min [facility] 09-08-2022 02:55-0400 Inhaled oxygen flow rate 4 L/[facility] 09-08-2022 02:55-0400 Respiratory rate 17 /min [facility] 09-08-2022 02:55-0400 SaO2% (BldA) [Mass fraction] 94 % [facility] 09-08-2022 02:55-0400 Systolic blood pressure 131 mm[Hg] [facility] 09-08-2022 00:03-0400 Body height 167.[address] Sepideh Patterson [facility] 09-08-2022 00:03-0400 Body mass index (BMI) [Ratio] 61.5 kg/m2 [facility]. [facility] 09-08-2022 00:03-0400 Body weight [address] [facility] 05-30-2022 16:15-0500 Body temperature 98.1 [degF] [facility] 05-30-2022 16:15-0500 Diastolic blood pressure 89 mm[Hg] [facility] 05-30-2022 16:15-0500 Heart rate 84 /min [facility] 05-30-2022 16:15-0500 Inhaled oxygen flow rate 3 L/[facility] 05-30-2022 16:15-0500 Respiratory rate 18 /min [facility] 05-30-2022 16:15-0500 SaO2% (BldA) [Mass fraction] 99 % [facility] 05-30-2022 16:15-0500 Systolic blood pressure 116 mm[Hg] [facility] 05-30-2022 06:00-0500 Body mass index (BMI) [Ratio] 58.8 kg/m2 [facility] 05-30-2022 06:00-0500 Body weight 165.[address] [facility] 05-30-2022 05:34-0500 Inhaled oxygen concentration 30 % [facility] 05-29-2022 12:22-0500 Body height 167.[address] Sepideh Patterson [facility] 05-28-2022 17:19-0500 Diastolic blood pressure 65 mm[Hg] Dr. Sepideh Patterson [facility] 05-28-2022 17:19-0500 Systolic blood pressure 95 mm[Hg] [facility] 05-28-2022 16:48-0500 Body temperature 99.5 [degF] Dr. Sepideh Patterson [facility] 05-28-2022 16:48-0500 Heart rate 93 /min Dr. Sepideh Patterson [facility] 05-28-2022 16:48-0500 Inhaled oxygen concentration 50 % [facility] 05-28-2022 16:48-0500 Respiratory rate 28 /min [facility] 05-28-2022 16:48-0500 SaO2% (BldA) [Mass fraction] 99 % [facility] 05-28-2022 15:37-0500 Inhaled oxygen flow rate 5 L/min [facility] 05-28-2022 11:11-0500 Body height 167.[address] [facility] 05-28-2022 11:11-0500 Body mass index (BMI) [Ratio] 28.3 kg/m2 [facility]. [facility] 05-28-2022 11:11-0500 Body weight 79.[address] [facility] 05-16-2022 12:27-0500 Body temperature 97.7 [degF] Dr. Sepideh Patterson [facility] 05-16-2022 12:27-0500 Diastolic blood pressure 53 mm[Hg] [facility] 05-16-2022 12:27-0500 Heart rate 79 /min [facility] 05-16-2022 12:27-0500 Inhaled oxygen flow rate 4 L/min [facility] 05-16-2022 12:27-0500 Respiratory rate 16 /min [facility] 05-16-2022 12:27-0500 SaO2% (BldA) [Mass fraction] 96 % [facility] 05-16-2022 12:27-0500 Systolic blood pressure 118 mm[Hg] [facility] 05-16-2022 06:00-0500 Body weight 175.[address] [facility] 05-15-2022 12:44-0500 Body height 167.[address] [facility] 05-14-2022 21:00-0500 Inhaled oxygen concentration 40 % [facility] 05-14-2022 12:43-0500 Body mass index (BMI) [Ratio] 61.2 kg/m2 Dr. [facility] 05-14-2022 12:09-0500 Body temperature 98 [degF] [facility] 05-14-2022 12:09-0500 Diastolic blood pressure 65 mm[Hg] [facility] 05-14-2022 12:09-0500 Heart rate 81 /min [facility] 05-14-2022 12:09-0500 Inhaled oxygen flow rate 4 L/min [facility] 05-14-2022 12:09-0500 Respiratory rate 20 /min [facility] 05-14-2022 12:09-0500 SaO2% (BldA) [Mass fraction] 96 % [facility] 05-14-2022 12:09-0500 Systolic blood pressure 99 mm[Hg] [facility] 05-14-2022 09:33-0500 Body height 170.[address] [facility] 05-14-2022 09:33-0500 Body mass index (BMI) [Ratio] 61 kg/m2 [facility]. [facility] 05-14-2022 09:33-0500 Body weight 176.[address] Sepideh Patterson [facility] 05-06-2022 00:14-0500 Body temperature 98.6 [degF] Dr. Sepideh Patterson [facility] 05-06-2022 00:14-0500 Diastolic blood pressure 73 mm[Hg] Dr. Sepideh Patterson [facility] 05-06-2022 00:14-0500 Heart rate 75 /min Dr. Sepideh Patterson [facility] 05-06-2022 00:14-0500 Inhaled oxygen flow rate 4 L/min [facility] 05-06-2022 00:14-0500 Respiratory rate 20 /min Dr. Sepideh Patterson [facility] 05-06-2022 00:14-0500 SaO2% (BldA) [Mass fraction] 96 % [facility] 05-06-2022 00:14-0500 Systolic blood pressure 115 mm[Hg] [facility] 05-04-2022 17:14-0500 Body temperature 98.4 [degF] Dr. Sepideh Patterson [facility] 05-04-2022 17:14-0500 Diastolic blood pressure 59 mm[Hg] Dr. Sepideh Patterson [facility] 05-04-2022 17:14-0500 Heart rate 87 /min Dr. Sepideh Patterson [facility] 05-04-2022 17:14-0500 Respiratory rate 20 /min [facility] 05-04-2022 17:14-0500 SaO2% (BldA) [Mass fraction] 98 % [facility] 05-04-2022 17:14-0500 Systolic blood pressure 120 mm[Hg] [facility] 05-04-2022 16:00-0500 Inhaled oxygen flow rate 4 L/min Dr. Sepideh Patterson [facility] 05-04-2022 12:21-0500 Body height 170.[address] Sepideh Patterson [facility] 05-04-2022 12:21-0500 Body weight 178.[address] Sepideh Patterson [facility] 05-03-2022 13:59-0500 Body mass index (BMI) [Ratio] 61.4 kg/m2 Dr. Sepideh Patterson [facility] 05-03-2022 13:01-0500 Body temperature 96.4 [degF] [facility] 05-03-2022 13:01-0500 Diastolic blood pressure 92 mm[Hg] [facility] 05-03-2022 13:01-0500 Heart rate 83 /min [facility] 05-03-2022 13:01-0500 Inhaled oxygen flow rate 4 L/min [facility] 05-03-2022 13:01-0500 Respiratory rate 16 /min [facility] 05-03-2022 13:01-0500 SaO2% (BldA) [Mass fraction] 94 % [facility] 05-03-2022 13:01-0500 Systolic blood pressure 133 mm[Hg] [facility] 05-03-2022 10:11-0500 Body height 170.18 cm [facility] 05-03-2022 10:11-0500 Body mass index (BMI) [Ratio] 61.4 kg/m2 [facility] 05-03-2022 10:11-0500 Body weight 178.1 kg [facility] 04-01-2020 13:00-0500 Pulse (Heart Rate) 110 /min [facility] 04-01-2020 13:00-0500 Respiratory Rate 17 /min [facility] 04-01-2020 11:10-0500 Body Temperature 97.9 [degF] [facility] 04-01-2020 11:10-0500 BP Diastolic 75 mm[Hg] [facility] 04-01-2020 11:10-0500 BP Systolic 109 mm[Hg] [facility] 04-01-2020 11:10-0500 Pulse Oximetry 89 % Delta [facility] 04-01-2020 05:00-0500 BMI (Body Mass Index) 59.28 kg/m2 Delta Gilliam [facility] 04-01-2020 05:00-0500 Body weight 166.6 kg Delta Gilliam [facility] 03-27-2020 03:16-0500 Height 167.6 cm Delta Gilliam [facility] 02-12-2017 05:43-0500 Pulse Oximetry 96 % Manjeet May [facility] Work Phone: 02-12-2017 05:33-0500 Respiratory Rate 18 /min Manjeet May [facility] Work Phone: 02-12-2017 05:15-0500 BMI (Body Mass Index) 58.42 kg/m2 Manjeet May [facility] Work Phone: 02-12-2017 05:15-0500 Body Temperature 98.29 [degF] Manjeetpark May [facility] Work Phone: 02-12-2017 05:15-0500 BP Diastolic 71 mm[Hg] Manjeetpark May [facility] Work Phone: 02-12-2017 05:15-0500 BP Systolic 122 mm[Hg] Manjeet May [facility] Work Phone: 02-12-2017 05:15-0500 Height 170.2 cm Manjeet Lalo [facility] Work Phone: 02-12-2017 05:15-0500 Pulse (Heart Rate) 101 /min Manjeet May [facility] Work Phone: 02-12-2017 05:15-0500 Weight 169.19 kg Manjeet May [facility] Work Phone: 12-20-2016 15:27-0400 BP Diastolic 88 mm[Hg] Namanmehreen Garciaa [facility] Work Phone: 12-20-2016 15:27-0400 BP Systolic 144 mm[Hg] Namanmehrene Garciaa [facility] Work Phone: 12-20-2016 15:27-0400 Height 170.2 cm Naman Spivey [facility] Work Phone: 12-20-2016 15:27-0400 Pulse (Heart Rate) 104 /min Naman Spivey [facility] Work Phone: 12-20-2016 15:27-0400 Pulse Oximetry 88 % Naman Spivey [facility] Work Phone: 12-20-2016 15:27-0400 Respiratory Rate 17 /min Naman Spivey [facility] Work Phone: Encounters Encounter Date Encounter Type Care Provider Facility Start: 09-22-2024 End: 09-22-[address] Theo Cho MD -[facility] Work Phone: Start: 09-22-2024 End: 09-22-[address] Heath Macario DO Work Phone: [facility] Work Phone: Start: 07-21-2024 End: 07-21-[address] Heath Macario MD -[facility] Start: 07-21-2024 End: 07-21-2024 ambulatory Heath Macario Facility:[facility] Start: 07-01-2024 Non-patient / Non-visit Dr. Theo henao MD -[facility] Start: 07-01-2024 End: 07-01-[address] Sepideh Patterson MD [facility] Work Phone: Start: 07-01-2024 End: 07-01-[address] Theo Cho MD -[facility] Work Phone: Start: 07-01-2024 End: 07-01-2024 ambulatory Theo Cho Facility:[facility] Start: 06-23-2024 End: 06-23-[address] Sepideh Patterson MD [facility] Work Phone: Start: 06-23-2024 End: 06-23-[address] Heath Macario MD -[facility] Start: 06-23-[address] Heath Macario MD -[facility] Start: 06-23-2024 End: 06-23-2024 ambulatory Heath KOROMA Facility:[facility] Start: 05-20-2024 End: 05-20-[address] Theo Cho MD -[facility] Work Phone: Start: 05-20-2024 End: 05-20-2024 ambulatory Theo Marquis Facility:[facility] Start: 05-12-2024 ambulatory Sepideh Gudla Facility:[facility] Start: 05-12-[address] Heath Macario MD -[facility] Start: 04-23-2024 ambulatory Sepideh Gudla Facility:[facility] Start: 04-23-[address] Sepideh Patterson MD -[facility] Start: 03-26-2024 End: 03-26-[address] Sepideh Patterson MD -[facility] Start: 03-26-2024 End: 03-26-2024 ambulatory Sepideh Gudla OLS Facility:[facility] Start: 03-12-2024 ambulatory Theo Cho Facility:[facility] Start: 03-03-2024 End: 03-03-2024 ambulatory Sepideh Gudla OLS Facility:[facility] Start: 02-27-2024 ambulatory Sepideh Gudla Facility:[facility] Start: 02-18-2024 End: 02-18-2024 Emergency department patient visit Sepideh Gudla Facility:[facility] Start: 02-11-2024 End: 02-11-2024 ambulatory Sepideh Gudla Facility:[facility] Start: 01-30-2024 End: 01-30-2024 ambulatory Sepideh Gudla Facility:[facility] Start: 01-28-2024 ambulatory Sepideh Gudla Facility:[facility] Start: 01-23-2024 End: 01-23-2024 ambulatory Sepideh Gudla Facility:[facility] Start: 01-18-2024 ambulatory Marina Armas Facility:[facility] Start: 01-18-2024 End: 01-22-2024 Evaluation and management of inpatient Amaya Jacome Facility:[facility] Start: 01-16-2024 End: 01-16-2024 ambulatory Sepideh Myaha Facility:[facility] Start: 12-11-2023 ambulatory [facility] Rodridla Facility:[facility] Start: 11-29-2023 ambulatory [facility] Rodridla Facility:[facility] Start: 11-24-2023 ambulatory Sepideh Rodridla Facility:[facility] Start: 11-23-2023 ambulatory Marina Armas Facility:[facility] Start: 11-23-2023 End: 11-28-2023 Evaluation and management of inpatient Marina Armas Facility:[facility] Start: 11-12-2023 End: 11-12-2023 [facility] Start: 11-05-2023 End: 11-05-2023 [facility] Start: 07-27-2023 Non-patient / Non-visit Dr. Sepideh hardin [facility] Work Phone: Start: 07-26-2023 End: 07-27-2023 Evaluation and management of inpatient Dr. Sepideh Patterson [facility] Work Phone: Start: 07-26-2023 End: 07-27-[address] Sepideh Patterson [facility] Work Phone: Start: 07-26-[address] Sepideh Patterson [facility] Start: 07-17-[address] Sepideh Patterson [facility] Start: 05-01-2023 End: 05-01-[address] Sepideh Patterson [facility] Start: 05-01-[address] Sepideh Patterson [facility] Start: 04-24-2023 End: 04-24-[address] Sepideh Patterson [facility] Work Phone: Start: 04-24-2023 End: 04-24-[address] Sepideh Patterson [facility] Start: 04-20-2023 Non-patient / Non-visit Dr. Sepideh Quispe [facility] Work Phone: Start: 04-19-2023 Non-patient / Non-visit Dr. Sepideh Quispe [facility] Work Phone: Start: 04-18-2023 Non-patient / Non-visit Dr. Sepideh Quispe [facility] Work Phone: Start: 04-17-2023 Non-patient / Non-visit Dr. Sepideh Quispe [facility] Work Phone: Start: 04-16-2023 End: 04-20-2023 Evaluation and management of inpatient [facility] Work Phone: Start: 03-08-2023 End: 03-08-2023 ambulatory [facility] Work Phone: Start: 03-08-2023 End: 03-08-2023 Departed Referred [facility] Start: 03-05-2023 End: 03-05-2023 ambulatory [facility] Work Phone: Start: 03-05-2023 End: 03-05-2023 Departed Referred [facility] Start: 01-22-2023 End: 01-22-2023 Departed Referred [facility] Start: 01-17-2023 End: 01-18-2023 Emergency department patient visit [facility] Work Phone: Start: 12-06-2022 End: 12-06-[address] [facility] Start: 12-06-2022 End: 12-06-[address] [facility] Start: 12-02-2022 End: 12-02-2022 Emergency department [facility]: Start: [address] [facility] Start: 09-25-[address] [facility] Start: 09-19-[address] [facility] Start: 09-13-[address] [facility] Start: 09-12-2022 Non-patient / Non-[facility] Start: 09-12-2022 Dr. Sepideh Patterson [facility] Start: 09-11-2022 Non-patient / Non-visit Dr. Sepideh Quispe [facility] Start: 09-11-2022 Dr. Sepideh Patterson [facility] Start: 09-10-2022 Non-patient / Non-visit Dr. Sepideh Quispe [facility] Work Phone: Start: 09-10-2022 Dr. Sepideh Patterson [facility] Start: 09-10-2022 Non-patient / Non-visit Dr. Sepideh Quispe [facility] Start: 09-10-[address] [facility] Start: 09-09-2022 Non-patient / Non-visit Dr. Sepideh Quispe j[facility] Work Phone: Start: 09-09-2022 Dr. Sepideh Patterson [facility] Start: 09-09-2022 Non-patient / Non-visit Dr. Sepideh Quispe [facility] Start: 09-09-2022 Dr. Sepideh Patterson [facility] Start: 09-08-2022 Non-patient / Non-visit Dr. Sepideh Quispe [facility] Work Phone: Start: 09-08-2022 End: 09-12-2022 Evaluation and management of [facility]: Start: 09-08-2022 End: 09-12-2022 [facility] Start: 07-26-2022 End: 07-26-[address] [facility] Start: 07-26-2022 End: 07-26-2022 [facility] Start: 06-21-2022 End: 06-21-2022 [facility] Start: 06-19-2022 End: 06-19-2022 [facility] Start: 06-09-2022 End: 06-09-[address] [facility] Start: 06-09-2022 End: 06-09-2022 [facility] Start: 06-06-2022 End: 06-06-[address] [facility] Start: 06-06-2022 End: 06-06-2022 [facility] Start: 06-02-2022 End: 06-02-[address] Sepideh Patterson [facility] Work Phone: Start: 06-02-2022 End: 06-02-2022 Dr. Sepideh Patterson [facility] Start: 05-31-2022 End: 05-31-[address] [facility] Start: 05-31-2022 End: 05-31-2022 Dr. Sepideh Patterson [facility] Start: 05-30-2022 Dr. Sepideh Patterson [facility] Start: 05-29-2022 Dr. Sepideh Patterson [facility] Start: 05-28-2022 End: 05-30-2022 Evaluation and management of inpatient Dr. Sepideh Patterson [facility] Start: 05-28-2022 End: 05-30-2022 Dr. [facility] Start: 05-26-2022 End: 05-26-[address] Sepideh Patterson [facility] Work Phone: Start: 05-26-[address] Sepideh Patterson [facility] Start: 05-26-2022 End: 05-26-2022 Dr. Sepideh Patterson [facility] Start: 05-19-2022 End: 05-19-[address] Sepideh Patterson [facility] Work Phone: Start: 05-19-[address] Sepideh Patterson [facility] Start: 05-19-2022 End: 05-19-2022 Dr. Sepideh Patterson [facility] Start: 05-16-2022 Non-patient / Non-visit Dr. Sepideh G [facility] Start: 05-16-2022 [facility] Start: 05-15-2022 Non-patient / Non-visit Dr. Sepideh Quispe [facility] Start: 05-15-2022 Dr. Sepideh Patterson [facility] Start: 05-14-2022 Non-patient / Non-visit Dr. Sepideh Quispe [facility] Start: 05-14-2022 End: 05-16-2022 Evaluation and management of inpatient [facility]. [facility]ideh Patterson [facility] Start: 05-14-2022 End: 05-16-2022 Dr. Sepideh Patterson [facility] Start: 05-13-[address] [facility] Start: 05-13-2022 Dr. Sepideh Patterson [facility] Start: 05-08-2022 End: 05-08-[address] Bunn [facility] Work Phone: Start: 05-08-2022 End: 05-08-[address] Sepideh Patterson [facility] Start: 05-08-[address] [facility] Start: 05-08-2022 End: 05-08-2022 Dr. Sepideh Patterson [facility] Start: 05-05-2022 Non-patient / Non-visit Dr. Sepideh Quispe [facility] Start: 05-05-2022 Dr. Sepideh Patterson [facility] Start: 05-05-2022 Non-patient / Non-visit Dr. Sepideh Quispe [facility] Start: 05-05-2022 Dr. Sepideh Patterson [facility] Start: 05-04-2022 Non-patient / Non-[facility] Start: 05-04-2022 Dr. Sepideh Patterson [facility] Start: 05-03-2022 Non-patient / Non-visit Dr. Sepideh Quispe [facility] Start: 05-03-2022 End: 05-06-2022 Evaluation [facility] Start: 05-03-2022 End: 05-06-2022 Dr. Sepideh Patterson [facility] 3 Start: 05-01-2022 End: 05-01-[address] [facility] Work [facility]: Start: 05-01-2022 End: 05-01-[address] Sepideh Patterson [facility] Start: 05-01-2022 Registered Referred [facility] Start: 05-01-2022 End: 05-01-2022 Dr. Sepideh Patterson [facility] Start: 04-11-2022 End: 04-11-[address] Sepideh Patterson [facility] Work Phone: Start: 04-11-2022 End: 04-11-[address] [facility] [place] [facility] [facility] Start: 04-11-2022 Registered Referred [facility] Start: 04-11-2022 End: 04-11-2022 Dr. Sepideh Patterson [facility] Start: 04-05-2022 End: 04-05-2022 ambulatory [facility] Work Phone: Start: 04-05-2022 End: 04-05-2022 Departed Referred [facility] Start: 04-05-2022 End: 04-05-2022 Dr. Sepideh Guaman [facility] Start: 03-20-2022 Registered Referred Fahad tirado [facility] Start: 03-20-2022 Dr. Sepideh read [facility] Start: 03-15-2022 ambulatory [facility] Start: 03-14-2022 ambulatory [facility] Start: 03-06-2022 End: 03-10-2022 ambulatory KINGSTON ANDREW [facility] manuel Start: 02-14-2022 End: 02-18-2022 ambulatory GILBERT BATES [facility] Start: 02-14-2022 End: 02-14-2022 ambulatory Gilbert Bates DO Work Phone: [facility] Comment on above: Closed displaced fra cture of medial malleolus of right tibia with routine healing - Right (Primary Dx); Closed fracture of head of fibula, right, with delayed healing, subsequent encounter - Right Start: 02-07-2022 Orders Only Gilbert Bates DO Work Phone: [facility] Comment on above: Right ankle pain, un specified chronicity (Primary Dx) Start: 01-31-2022 ambulatory GILBERT BATES [facility] Start: 01-12-2022 End: 01-14-2022 amb[facility] Start: 11-08-2021 End: 11-08-2021 Emergency department patient visit SUNIL SORTO VAJUSTIN [facility] Start: 05-13-2021 End: 05-13-2021 Home visit Yves Mcwilliams PT [facility] Comment on above: PT HH NON ADMIT Start: 05-11-2021 Home visit Katia Paulino PT [facility] Comment on above: CASE COMMUNICATION Start: 05-10-2021 ambulatory [facility]JEET [facility] Start: 05-09-2021 End: 05-10-2021 ambulatory SHANIKA SALCEDO [facility] Start: 06-16-2020 End: 06-16-2020 Orders Only Yamini Barger Work Phone: [facility] [place] Start: 03-27-2020 Critical care ill/in jured patient addl 30 min Delta Gilliam Work Phone: [facility] Start: 03-27-2020 End: 04-01-2020 Evaluation and management of inpatient Delta Gilliam Work Phone: [facility] Intermediate Comment on above: COPD exacerbation (H CC) (Primary Dx); Acute respiratory acidosis; Chronic obstructive pulmonary disease, unspecified COPD type (HCC); Acute on chronic respiratory failure with hypoxia and hypercapnia (HCC) Start: 12-31-2018 End: 12-31-2018 Ancillary Orders Sunil Templeton Work Phone: [facility] [place] Comment on above: Pain Start: 04-12-2018 End: 04-12-2018 Patient encounter procedure Casie Ross [facility] Start: 08-22-2017 End: 08-22-2017 Office/outpatient visit, new, level 3 Yves Rg Work Phone: [facility] Pod[facility] Start: 02-12-2017 End: 02-12-2017 Emergency department patient visit Manjeet May Work Phone: [facility] Emergency Department Start: 12-20-2016 End: 12-20-2016 Office outpatient visit 25 minutes Naman Barbara Spivey Work Phone: [facility] Cardiology Comment on above: Dyspnea on exertion (Primary Dx);Chest pain at rest;Hypertensive heart disease with CHF (HCC);Smoking;Obesity, Class III, BMI 40-49.9 (morbid obesity) ([facility]) Start: 11-08-2016 End: 11-09-2016 Ambulatory [facility] Facility:[facility] Start: 11-06-2016 End: 11-07-2016 Ambulatory [facility] Facility:[facility] Start: 11-05-2016 End: 11-06-2016 Ambulatory [facility] Facility:[facility] Procedures Date Procedure Procedure Detail Performing Clinician Start: 05-20-2024 Evaluation of diagno stic study results Dr. Sepideh Patterson MD Start: 07-26-[address] Sepideh Patterson Start: 04-17-[address] Trevor Patterson Start: 04-16-2023 Plain chest X-ray Start: 04-16-2023 Bacteria identified in Blood by Culture Dr. Sepideh Patterson Start: 04-16-2023 SARS-CoV-2, Influenz a & RSV (PCR) Start: 04-16-[address] Kendall Patterson Start: 04-16-2023 CT of head without contrast Start: 03-08-2023 Urine culture Start: 12-02-2022 Plain chest X-ray Dr. Caroline Patterson Start: 09-08-2022 Bacteria identified in Blood by Culture Dr. Sepideh Patterson Start: 09-08-[address] Sepideh Patterson Start: 09-08-2022 SARS-CoV-2 & FLU Ant igen (Rapid) Dr. Sepideh Patterson Start: 09-08-[address] Kendall Patterson Start: 09-08-2022 Plain chest X-ray Dr. Caroline Patterson Start: 05-28-2022 Plain chest X-ray Dr. Caroline Patterson Start: 05-14-2022 Plain x-ray of humerus Dr. Sepideh Patterson Start: 05-14-2022 Plain chest X-ray Dr. Caroline Patterson Start: 05-03-2022 Plain chest X-ray Start: 07-19-2021 Adult depression scr eening assessment Gilbert Bates DO Work Phone: Start: 03-31-2020 Gas panel - Arterial blood Joni Julien Short Work Phone: Start: 03-31-2020 OBTAIN ARTERIAL BLOO D GASES AND PERFORM Joni Short Work Phone: Start: 03-31-2020 [facility] Joni Short Work Phone: Start: 03-30-2020 Basic metabolic 1998 panel - Serum or Plasma Joni Short Work Phone: Start: 03-30-2020 Complete blood count (hemogram) panel - Blood by Automated count Joni Short Work Phone: Start: 03-29-2020 Basic metabolic 1998 panel - Serum or Plasma Joni Short Work Phone: Start: 03-29-2020 Complete blood count (hemogram) panel - Blood by Automated count Joni Short Work Phone: Start: 03-29-2020 Natriuretic peptide. B prohormone N-Terminal [Mass/volume] in Serum or Plasma Cornell Webber Work Phone: Start: 03-28-2020 Basic metabolic 1998 panel - Serum or Plasma Joni Short Work Phone: Start: 03-28-2020 Complete blood count (hemogram) panel - Blood by Automated count Joni Short Work Phone: Start: 03-27-2020 Gas panel - Venous blood Joni Short Work Phone: Start: 03-27-2020 OBTAIN VENOUS BLOOD GASES AND PERFORM Joni Short Work Phone: Start: 03-27-2020 Gas panel - Venous blood Joni Short Work Phone: Start: 03-27-2020 Electrocardiogram Provi ata Not In System Start: 03-27-2020 Troponin measurement Il ia Iliev Work Phone: Start: 03-27-2020 BIPAP Delta Iliev Work Phone: Start: 03-27-2020 CPAP / BIPAP TITRATE Il ia Iliev Work Phone: Start: 03-27-2020 OBTAIN ARTERIAL BLOO D GASES AND PERFORM Delta Iliev Work Phone: Start: 03-27-2020 COVID-19/INFLUENZA A ,B MOLECULAR Delta Iliev Work Phone: Start: 03-27-2020 Radiologic exam ches t single view Delta Iliev Work Phone: Start: 03-27-2020 Basic metabolic 2000 panel - Serum or Plasma Delta Iliev Work Phone: Start: 03-27-2020 Complete blood count with white cell differential, automated Delta Iliev Work Phone: Start: 03-27-2020 Complete blood count with white cell differential, manual Delta Iliev Work Phone: Start: 03-27-2020 Gas panel - Venous blood Delta Iliev Work Phone: Start: 03-27-2020 Hepatic function 200 0 panel - Serum or Plasma Delta Iliev Work Phone: Start: 03-27-2020 LAVENDER TOP Delta Iliev Work Phone: Start: 03-27-2020 LIGHT BLUE TOP Delta Kathy ev Work Phone: Start: 03-27-2020 LIGHT GREEN TOP Delta Il iev Work Phone: Start: 03-27-2020 Lipase [Enzymatic activity/volume] in Serum or Plasma Delta Iliev Work Phone: Start: 03-27-2020 MINT GREEN TOP Delta Kathy ev Work Phone: Start: 03-27-2020 Natriuretic peptide. B prohormone N-Terminal [Mass/volume] in Serum or Plasma Delta Iliev Work Phone: Start: 03-27-2020 OBTAIN VENOUS BLOOD GASES AND PERFORM Delta Iliev Work Phone: Start: 03-27-2020 RAINBOW DRAW Delta Iliev Work Phone: Start: 03-27-2020 Troponin measurement Il ia Iliev Work Phone: Start: 03-27-2020 12 lead ECG Delta Iliev Work Phone: Start: 10-31-2019 Adult depression scr eening assessment Delta Iliev Bacteria identified in Blood by Culture Dr. Sepideh Patterson Bacteria identified in Blood by Culture Dr. Sepideh Patterson Bacteria identified in Urine by Culture Dr. Sepideh Patterson Clostridium difficil e detection Dr. Sepideh Patterson Clostridium difficil e detection Dr. Sepideh Patterson Clostridium difficil e detection Dr. Sepideh Patterson Legionella pneumophi la antigen assay Dr. Sepideh Patterson Nucleic acid assay Dr. Kendall Patterson Respiratory Panel (PCR) Dr. Sepideh Patterson SARS-CoV-2 & FLU Ant igen (Rapid) Dr. Sepideh Patterson Urine culture Dr. Sepideh whaley Urine culture Dr. Sepideh whaley Urine culture Dr. Sepideh whaley Viral antigen assay Dr. Aris guevara Plan of Treatment Date Care Activity Detail Author Start: 07-27-2023 Patient discharge [facility] Start: 07-26-2023 Following clinical pathway protocol [facility] Start: 07-26-2023 Application of elast ic bandage [facility] Start: 07-26-2023 Aspiration precautions [facility] Start: 07-26-2023 Assessment of risk o f venous thromboembolism [facility] Start: 07-26-2023 Fall prevention [facility] Start: 07-26-2023 Incentive spirometry [facility] Start: 07-26-2023 Inhalation therapy procedure [facility] Start: 07-26-2023 Insertion of cathete r into peripheral vein [facility] Start: 07-26-2023 Introduction of urin angelique catheter [facility] Start: 07-26-2023 Measuring intake and output [facility] Start: 07-26-2023 Oxygen therapy [facility] Start: 07-26-2023 Providing care accor ding to standard [facility] Start: 07-26-2023 Provision of activit y privileges [facility] Start: 07-26-2023 Referral to occupati onal therapist [facility] Start: 07-26-2023 Referral to service [facility] Start: 07-26-2023 [facility] Start: 07-26-2023 Gastrointestinal pathogens panel - Stool by DEMETRI with probe detection [facility] Start: 07-26-2023 Verification routine [facility] Start: 07-26-2023 Admission procedure [facility] Start: 07-26-2023 Hospital admission, emergency, from emergency room, medical nature [facility] Start: 07-26-2023 Continuous pulse oximetry [facility] Start: 07-26-2023 Dual pressure sponta neous ventilation support [facility] Start: 07-26-2023 [facility] Start: 07-26-2023 Patient referral to dietitian [facility] Start: 04-20-2023 Patient discharge [facility] Start: 04-18-2023 Contact precautions [facility] Start: 04-18-2023 Respiratory secretio n precautions [facility] Start: 04-17-2023 Wound care [facility] Start: 04-17-2023 Consultation for treatment [facility] Start: 04-16-2023 Dual pressure sponta neous ventilation support [facility] Start: 04-16-2023 Speech therapy assessment [facility] Start: 04-16-2023 Following clinical pathway protocol [facility] Start: 04-16-2023 Aspiration precautions [facility] Start: 04-16-2023 Assessment of risk o f venous thromboembolism [facility] Start: 04-16-2023 Continuous pulse oximetry [facility] Start: 04-16-2023 Fall prevention [facility] Start: 04-16-2023 Inhalation therapy procedure [facility] Start: 04-16-2023 Insertion of cathete r into peripheral vein [facility] Start: 04-16-2023 Introduction of urin angelique catheter [facility] Start: 04-16-2023 Measuring intake and output [facility] Start: 04-16-2023 Oxygen therapy [facility] Start: 04-16-2023 Providing care accor ding to standard [facility] Start: 04-16-2023 Provision of activit y privileges [facility] Start: 04-16-2023 Referral to occupati onal therapist [facility] Start: 04-16-2023 Referral to service [facility] Start: 04-16-2023 [facility] Start: 04-16-2023 Verification routine [facility] Start: 04-16-2023 Legionella pneumophi la Ag [Presence] in Urine [facility] Start: 04-16-2023 Streptococcus pneumo niae antigen assay [facility] Start: 04-16-2023 [facility] Start: 04-16-2023 Admission procedure [facility] Start: 04-16-2023 Hospital admission, emergency, from emergency room, medical nature [facility] Start: 04-16-2023 [facility] Start: 04-16-2023 End: 04-16-2023 Blood culture [facility] Start: 04-16-2023 Bacteria identified in Blood by Culture Blood Culture [facility] Start: 04-16-2023 Bacteria identified in Urine by Culture Urine Culture [facility] Start: 04-16-2023 [facility] Start: 04-16-2023 Patient referral to dietitian [facility] Start: 01-17-2023 [facility] Start: 09-12-2022 Patient discharge [facility] Start: 09-10-2022 [facility] Start: 09-09-2022 Oxygen therapy [facility] Start: 09-08-2022 Consultation [facility] Start: 09-08-2022 CBC W Auto Different ial panel - Blood [facility] Start: 09-08-2022 [facility] Start: 09-08-2022 Following clinical pathway protocol [facility] Start: 09-08-2022 Assessment of risk o f venous thromboembolism [facility] Start: 09-08-2022 Consultation for treatment [facility] Start: 09-08-2022 Continuous pulse oximetry [facility] Start: 09-08-2022 Insertion of cathete r into peripheral vein [facility] Start: 09-08-2022 Providing care accor ding to standard [facility] Start: 09-08-2022 Provision of activit y privileges [facility] Start: 09-08-2022 Referral to occupati onal therapist [facility] Start: 09-08-2022 Referral to service [facility] Start: 09-08-2022 [facility] Start: 09-08-2022 Dual pressure sponta neous ventilation support [facility] Start: 09-08-2022 Verification routine [facility] Start: 09-08-2022 Admission procedure [facility] Start: 09-08-2022 Clostridioides diffi cile DNA [Presence] in Unspecified specimen by DEMETRI with probe detection [facility] Start: 09-08-2022 Enteric precautions [facility] Start: 09-08-2022 Gastrointestinal pathogens panel - Stool by DEMETRI with probe detection [facility] Start: 09-08-2022 End: 09-08-2022 [facility] Start: 09-08-2022 End: 09-08-2022 Blood culture [facility] Start: 09-08-2022 Consultation [facility] Start: 07-26-2022 End: 07-26-2022 Patient encounter procedure 07/26/2022 Office Visit Primary Care Isa Fuchs PA-C [address] [place] [address] [facility] Start: 07-19-2022 Administration of he rpes zoster vaccine Zoster Vaccines (1 of 2) [facility] Comment on above: Postponed from 10/27 (Patient Refused) Start: 07-19-2022 COVID-19 Vaccine (#1) COVID-19 Vacci ne (#1) [facility] Comment on above: Postponed from 04/29 (Patient Refused) Start: 07-19-2022 Depression screening using PHQ-9 (Patient Health Questionnaire 9) score Depression Screening (PHQ-2/9) [facility] Start: 07-19-2022 Hepatitis C screening Hepatitis C [facility] Comment on above: Postponed from 10/27 (Patient Refused) Start: 07-19-2022 History and physical examination, annual for health maintenance Wellness Visit [facility] Start: 07-19-2022 HIV screening HIV Screening [facility] Comment on above: Postponed from 10/27 (Patient Refused) Start: 07-19-2022 Pneumococcal Vaccine : Ped or At-Risk (1 - PCV) Pneumococcal Vaccine: Ped or At-Risk (1 - PCV) [facility] Comment on above: Postponed from 10/27 (Patient Refused) Start: 07-19-2022 Screening for malign ant neoplasm of breast Mammogram [facility] Comment on above: Postponed from 10/27 (Patient Refused) Start: 07-19-2022 Screening for malign ant neoplasm of cervix Pap Smear [facility] Comment on above: Postponed from 10/27 (Patient Refused) Start: 07-19-2022 Screening for malign ant neoplasm of colon [facility] Comment on above: Postponed from 10/27 (Patient Refused) Start: 05-30-2022 Patient discharge [facility] Start: 05-28-2022 Oxygen therapy [facility] Start: 05-28-2022 Referral to occupati onal therapist [facility] Start: 05-28-2022 Referral to service [facility] Start: 05-28-2022 Following clinical pathway protocol [facility] Start: 05-28-2022 Assessment of risk o f venous thromboembolism [facility] Start: 05-28-2022 Catheterization of vein [facility] Start: 05-28-2022 Inhalation therapy procedure [facility] Start: 05-28-2022 Insertion of cathete r into peripheral vein [facility] Start: 05-28-2022 Measuring intake and output [facility] Start: 05-28-2022 Patient referral to dietitian [facility] Start: 05-28-2022 Providing care accor ding to standard [facility] Start: 05-28-2022 Provision of activit y privileges [facility] Start: 05-28-2022 Referral to service [facility] Start: 05-28-2022 [facility] Start: 05-28-2022 Continuous pulse oximetry [facility] Start: 05-28-2022 Dual pressure sponta neous ventilation support [facility] Start: 05-28-2022 Following clinical pathway protocol [facility] Start: 05-28-2022 Legionella pneumophi la Ag [Presence] in Urine [facility] Start: 05-28-2022 Streptococcus pneumo niae antigen assay [facility] Start: 05-28-2022 Consultation [facility] Start: 05-28-2022 Admission procedure [facility] Start: 05-28-2022 [facility] Start: 05-28-2022 End: 05-28-2022 Blood culture [facility] Start: 05-28-2022 Patient referral to dietitian [facility] Start: 05-18-2022 Dual pressure sponta neous ventilation support [facility] Start: 05-17-2022 Dual pressure sponta neous ventilation support [facility] Start: 05-16-2022 Dual pressure sponta neous ventilation support [facility] Start: 05-16-2022 Patient discharge [facility] Start: 05-16-2022 Consultation [facility] Start: 05-15-2022 Dual pressure sponta neous ventilation support [facility] Start: 05-15-2022 Enteric precautions [facility] Start: 05-14-2022 Dual pressure sponta neous ventilation support [facility] Start: 05-14-2022 Following clinical pathway protocol [facility] Start: 05-14-2022 Assessment of risk o f venous thromboembolism [facility] Start: 05-14-2022 Continuous pulse oximetry [facility] Start: 05-14-2022 Incentive spirometry [facility] Start: 05-14-2022 Insertion of cathete r into peripheral vein [facility] Start: 05-14-2022 Measuring intake and output [facility] Start: 05-14-2022 Methicillin resistan t Staphylococcus aureus screening test [facility] Start: 05-14-2022 Oxygen therapy [facility] Start: 05-14-2022 Providing care accor ding to standard [facility] Start: 05-14-2022 Provision of activit y privileges [facility] Start: 05-14-2022 Referral to occupati onal therapist [facility] Start: 05-14-2022 Referral to service [facility] Start: 05-14-2022 Verification routine [facility] Start: 05-14-2022 End: 05-14-2022 [facility] Start: 05-14-2022 Admission procedure [facility] Start: 05-14-2022 [facility] Start: 05-14-2022 End: 05-14-2022 Blood culture [facility] Start: 05-14-2022 [facility] Start: 05-14-2022 Dual pressure sponta neous ventilation support [facility] Start: 05-14-2022 Patient referral to dietitian [facility] Start: 05-14-2022 [facility] Start: 05-05-2022 Patient discharge [facility] Start: 05-05-2022 Care planning and pr oblem solving actions [facility] Start: 05-05-2022 Blood chemistry [facility] Start: 05-05-2022 Removal of urinary catheter [facility] Start: 05-03-2022 Verification routine [facility] Start: 05-03-2022 Following clinical pathway protocol [facility] Start: 05-03-2022 Assessment of risk o f venous thromboembolism [facility] Start: 05-03-2022 Enteric precautions [facility] Start: 05-03-2022 Incentive spirometry [facility] Start: 05-03-2022 Inhalation therapy procedure [facility] Start: 05-03-2022 Insertion of cathete r into peripheral vein [facility] Start: 05-03-2022 Oxygen therapy [facility] Start: 05-03-2022 Providing care accor ding to standard [facility] Start: 05-03-2022 Provision of activit y privileges [facility] Start: 05-03-2022 Referral to occupati onal therapist [facility] Start: 05-03-2022 Referral to service [facility] Start: 05-03-2022 End: 05-03-2022 [facility] Start: 05-03-2022 Admission procedure [facility] Start: 05-03-2022 End: 05-03-2022 [facility] Start: 05-03-2022 End: 05-03-2022 Blood culture [facility] Start: 02-14-2022 End: 02-14-2022 Patient encounter procedure 02/14/2022 Office Visit Orthopedic Surgery Gilbert Bates DO [address] [place] [id number] [facility] Start: 07-19-2021 End: 07-19-2021 Patient encounter procedure 07/19/2021 Office Visit Primary Care Isa Fuchs PA-C [address] [place] [address] [facility] Start: 07-05-2021 End: 07-05-2021 Patient encounter procedure 07/05/2021 Office Visit Neurology Katie Cao MD [address] [address] [facility] Neurology Start: 06-17-2021 Administration of he rpes zoster vaccine Zoster Vaccines (1 of 2) [facility] Comment on above: Postponed from 10/27 (Patient Refused) Start: 06-17-2021 COVID-19 Vaccine (1) COVID-19 Vaccin e (1) [facility] Comment on above: Postponed from 10/27 (Patient Refused) Start: 06-17-2021 [facility] C [facility] on above: Postponed from 10/27 (Patient Refused) Start: 06-17-2021 History and physical examination, annual for health maintenance Wellness Visit [facility] Start: 06-17-2021 HIV screening HIV Screening [facility] Comment on above: Postponed from 10/27 (Patient Refused) Start: 06-17-2021 Screening for malign ant neoplasm of breast Mammogram [facility] Comment on above: Postponed from 10/27 (Patient Refused) Start: 06-17-2021 Screening for malign ant neoplasm of cervix Pap Smear [facility] Comment on above: Postponed from 10/27 (Patient Refused) Start: 06-17-2021 Screening for malign ant neoplasm of colon Colorectal Cancer Screening [facility] Comment on above: Postponed from 10/27 (Patient Refused) Start: 05-13-2021 End: 05-13-2021 Home visit 05/13/2021 Home Care Visit Home Health Services Dilcia Espinoza OT [facility] Start: 05-12-2021 End: 05-12-2021 Patient encounter procedure 05/12/2021 Appointment Home Health Services Yves Mcwilliams, PT [facility] Start: 10-30-2020 Adolescent depressio n screening assessment Depression Screening (PHQ9) [facility] Start: 10-30-2020 Depression screening using PHQ-9 (Patient Health Questionnaire 9) score Depression Screening (PHQ-2/9) [facility] Start: 07-01-2020 End: 07-01-2020 Office Visit 07/01/2020 Office Visit Primary Care Isa Fuchs PA-C [address] [place] [address] [phone] [facility] Start: 06-17-2020 End: 06-17-2020 Office Visit 06/17/2020 Office Visit Primary Care Isa Fuchs PA-C [address] [place] [address] [phone] [facility] Start: 05-26-2020 End: 05-26-2020 Office Visit 05/26/2020 Office Visit Pulmonology Cornell Webber MD [address] [place] [address] [phone] [facility] Pulmonary Start: 12-09-2019 Influenza vaccinatio n given Sequential Influenza Vaccine (#1) [facility] Start: 12-31-2018 End: 01-01-2020 Diagnostic radiography of lumbar spine XR SPINE LUMBOSACRAL 5 VIEWS Imaging Routine Pain Expected: 12/31/2018, Expires: 01/01/2020 [facility] Comment on above: Expected: 12/31/2018 , Expires: 01/01/2020 Start: 12-08-2018 Influenza vaccination INFLUENZA VACC INE (#1) [facility] Start: 12-08-2017 Influenza vaccination SEQUENTI AL INFLUENZA VACCINE (Season Ended) [facility] Start: 12-08-2017 Influenza vaccinatio n given SEQUENTIAL INFLUENZA VACCINE (#1) [facility] Start: 09-10-2017 End: 09-10-2017 Ambulatory 09/10/2017 Appointment Radiology Yves Rg DPM [address] [place] [address] [phone] [facility] Ultrasound Start: 02-15-2017 Ambulatory 02/15/2017 [place] [facility] Naman Spivey MD [address] [facility] [place] [address] [phone] [facility] Start: 12-08-2016 Influenza vaccination SEQUENTI AL INFLUENZA VACCINE (#1) [facility] Work Phone: Start: 10-28-2011 Administration of he rpes zoster vaccine Zoster Vaccines (1 of 2) [facility] Start: 10-28-2011 Colonoscopy COLON CANCER S CREENING DISCUSSION [facility] Start: 10-28-2011 Screening for malign ant neoplasm of colon [facility] Start: 10-28-2011 Zoster vaccine hzv l sarai for subcutaneous use ZOSTER (SHINGLES) VACCINE (1 of 2) [facility] Start: 2001 Fasting lipid profile LIPID SCREENIN G [facility] Start: 2001 Screening mammography MAMMOGRA M SCREENING DISCUSSION [facility] Start: 1982 Screening for malign ant neoplasm of cervix PAP SMEAR DISCUSSION [facility] Start: 1980 Third diphtheria, te tanus and acellular pertussis (DTaP) vaccination TDAP (ADULT) [facility] Start: 10-28-1979 Hepatitis C antibody , confirmatory test Hepatitis C Screening [facility] Start: 10-28-1979 Tetanus vaccination [facility] Start: 1977 COVID-19 Vaccine (1 of 2) COVI D-19 Vaccine (1 of 2) [facility] Start: 1976 HIV screening HIV Screening [facility] Start: 1974 HIV screening HIV SCREENING DISCUSSION [facility] Start: 10-28-1967 Pneumococcal Vaccine : Ped or At-Risk (1 of 2 - PPSV23) Pneumococcal Vaccine: Ped or At-Risk (1 of 2 - PPSV23) [facility] Start: 1964 History and physical examination, annual for health maintenance Wellness Visit [facility] Start: 1961 Screening for malign ant neoplasm of colon [facility] Start: 1961 Scre[facility] mamm[facility] Start: 1961 End: 1961 Hepatitis C antibody, confirmatory test [facility] Start: 1961 End: 1961 HEPATITIS C SCREENING HEPATITIS C SCREENING [facility] Work Phone: Start: 1961 Protein mass conc COLONOSCOPY [facility] Start: 1961 End: 1961 Screening colonoscopy COLONOSCOPY [facility] Work Phone: Start: 1961 End: 1961 Screening for malignant neoplasm of cervix PAP SMEAR [facility] Work Phone: Start: 1961 End: 1961 Tetanus vaccination [facility] Work Phone: Alanine aminotransfe rase [Enzymatic activity/volume] in Serum or Plasma [facility] Albumin [Mass/volume ] in Serum or Plasma [facility] Alkaline phosphatase [Enzymatic activity/volume] in Serum or Plasma [facility] Anion gap measurement [facility] Anion gap measurement [facility] Aspartate aminotransferase [Enzymatic activity/volume] in Serum or Plasma [facility] Bacteria identified in Blood by Culture Blood Culture [facility] Bacteria identified in Blood by Culture Blood Culture [facility] Bacteria identified in Blood by Culture Blood Culture [facility] Bacteria identified in Urine by Culture Urine Culture [facility] Bilirubin, total measurement [facility] BUN/Creatinine ratio [facility] BUN/Creatinine ratio [facility] C. difficile DNA Amplification C. difficile DNA Amplification [facility] Calcium [Mass/volume ] in Serum or Plasma [facility] Calcium [Mass/volume ] in Serum or Plasma [facility] Carbon dioxide, tota l [Moles/volume] in Serum or Plasma [facility] Carbon dioxide, tota l [Moles/volume] in Serum or Plasma [facility] Chloride [Moles/volu me] in Serum or Plasma [facility] Chloride [Moles/volu me] in Serum or Plasma [facility] Clostridioides diffi cile DNA [Presence] in Unspecified specimen by DEMETRI with probe detection [facility] Creatinine [Moles/vo lume] in Serum or Plasma [facility] Creatinine [Moles/vo lume] in Serum or Plasma [facility] End: 02-19-2018 Dobutamine stress echocardiogram Dobutamine stress echocardiogram Routine Dyspnea on exertion 1 Occurrences starting 12/20/2016 until 02/19/2018 [facility] Work Phone: Comment on above: 1 Occurrences starti ng 12/20/2016 until 02/19/2018 Glucose [Mass/volume ] in Serum or Plasma [facility] Glucose [Mass/volume ] in Serum or Plasma [facility] Hematocrit [Volume Fraction] of Blood [facility] Hematocrit [Volume Fraction] of Blood [facility] Hemoglobin [Mass/vol ume] in Blood [facility] Hemoglobin [Mass/vol ume] in Blood [facility] Leukocytes [#/volume ] in Blood [facility] Leukocytes [#/volume ] in Blood [facility] Mean corpuscular hemoglobin concentration determination [facility] Mean corpuscular hemoglobin concentration determination [facility] Mean corpuscular hemoglobin determination [facility] Mean corpuscular hemoglobin determination [facility] Measurement of renal function [facility] Measurement of renal function [facility] Neutrophil count [facility] Neutrophil count [facility] Neutrophil percent differential count [facility] Neutrophil percent differential count [facility] Patient Education [facility] Work Phone: Patient referral [facility] Work Phone: Platelets [#/volume] in Blood [facility] Platelets [#/volume] in Blood [facility] Potassium [Moles/vol ume] in Serum or Plasma [facility] Potassium [Moles/vol ume] in Serum or Plasma [facility] Procalcitonin [Mass/volume] in Serum or Plasma [facility] Red blood cell count [facility] Red blood cell count [facility] Red cell distributio n width determination [facility] Red cell distributio n width determination [facility] Respiratory Panel (PCR) Respiratory Panel (PCR) [facility] Respiratory pathogen s DNA and RNA 12b panel - Unspecified specimen by DEMETRI with probe detection [facility] Sodium [Moles/volume ] in Serum or Plasma [facility] Sodium [Moles/volume ] in Serum or Plasma [facility] Total protein measurement [facility] Ultrasound ankle / brachial indices extremity complete Ultrasound ankle / brachial indices extremity complete Routine Other specified symptoms and signs involving the circulatory and respiratory systems Chronic foot pain, left Ordered: 08/22/2017 [facility] Urea nitrogen [Mass/volume] in Serum or Plasma [facility] Urea nitrogen [Mass/volume] in Serum or Plasma [facility] End: 02-07-2023 X-ray of right ankle XR Ankle Right 3+ Views (Standard) Imaging Routine Right ankle pain, unspecified chronicity 1 Occurrences starting 02/07/2022 until 02/07/2023 [facility] Work Phone: Comment on above: 1 Occurrences starti ng 02/07/2022 until 02/07/2023 [facility] Payers Date Payer Category Payer Unknown [id number] 2020 Medicaid [place] [id number] 2020-Present [phone] [address] [place] [address] [id number] 2019 Medicare [id number] [id number] .[id number] 2019 Medicare UHC MANAGED MEDI CARE [facility] DUAL COMPLETE (O SNP) [id number] 2019-Present [phone] [address] [address] [place] [address] 1.2.840.379874.1.13.385.2.7 .3.299149.315 2019 Medicare [id number] 2018 Medicaid [id number] 2.16.840.1.358478.3.249.13 2018 Medicare MEDICARE MEDICAR E A AND B xxxxxxxxxxx 2018-Present [place], [place] xxxxxxxxxxx [id number] .[id number] 2018 Unknown GENERIC PAYOR ME DICARE SUPPLEMENT xxxxxxxxxxxx 2018-Present [id number] [id number] .[id number] 2015 Medicaid MEDICAID [facility] [id number] 2015-Present [id number] 1.2.840.282464.1.13.385.2.7 .3.044359.315 2014 Medicare [id number] 2.16.840.1.865639.3.249.13 1961 Unknown [id number] 2.16.840.1.864648.3.579.2.9 03 1961 Unknown [id number] 2.16.840.1.333677.3.579.2.9 03 1961 Unknown [id number] 2.16.840.1.590211.3.579.2.9 83 1961 Unknown [id number] 2.16.840.1.529759.3.579.2.9 83 1961 Unknown [id number] 2.16.840.1.017456.3.579.2.9 03 1961 Unknown [id number] 2.16.840.1.129657.3.579.2.9 03 1961 Unknown [id number] 2.16.840.1.563157.3.579.2.9 03 1961 Unknown [id number] 2.16.840.1.801220.3.579.2.9 03 1961 Unknown [id number] 2.16.840.1.441574.3.579.2.9 03 1961 Unknown [id number] 2.16.840.1.035188.3.579.2.9 03 1961 Unknown [id number] 2.16.840.1.247991.3.579.2.9 03 1959 Self-pay Medicare [id number] Unknown [facility] [id number] Unknown [id number] 2.16.840.1.574796.3.579.2.4 62 Unknown [id number] 2.16.840.1.185526.3.579.2.4 62 Unknown [id number] 2.16.840.1.715138.3.579.2.4 62 Unknown [id number] 2.16.840.1.713814.3.579.2.4 62 Unknown [id number] 2.16.840.1.509406.3.579.2.4 62 Unknown [id number] 2.16.840.1.712635.3.579.2.4 62 Unknown [id number] 2.16.840.1.895388.3.579.2.4 62 Unknown [id number] 2.16.840.1.105757.3.579.2.4 62 Unknown [id number] 2.16.840.1.097203.3.579.2.4 62 Unknown [id number] 2.16.840.1.347519.3.579.2.4 62 Unknown [id number] 2.16.840.1.403822.3.579.2.4 62 Unknown [id number] 2.16.840.1.442670.3.579.2.4 62 Unknown [id number] 2.16.840.1.354424.3.579.2.4 62 Unknown [id number] 2.16.840.1.772490.3.579.2.4 62 Unknown [id number] 2.16.840.1.736887.3.579.2.4 62 Unknown [id number] 2.16.840.1.802207.3.579.2.4 62 Unknown [id number] 2.16.840.1.725676.3.579.2.4 62 Unknown [id number] 2.16.840.1.150999.3.579.2.4 62 Unknown [id number] 2.16.840.1.420405.3.579.2.4 62 Unknown [id number] 2.16.840.1.672390.3.579.2.4 62 Unknown [id number] 2.16.840.1.418192.3.579.2.4 62 Unknown [id number] 2.16.840.1.359567.3.579.2.4 62 Unknown [id number] 2.16.840.1.229067.3.579.2.4 62 Unknown [id number] 2.16.840.1.819516.3.579.2.4 62 Unknown [id number] 2.16.840.1.019204.3.579.2.4 62 Unknown [id number] 2.16.840.1.212103.3.579.2.4 62 Unknown [id number] 2.16.840.1.965488.3.579.2.4 62 Unknown [id number] 2.16.840.1.550895.3.579.2.4 62 Unknown [id number] 2.16.840.1.659346.3.579.2.4 62 Unknown [id number] 2.16.840.1.811270.3.579.2.4 62 Unknown [id number] 2.16.840.1.977248.3.579.2.4 62 Unknown [id number] 2.16.840.1.178132.3.579.2.4 62 Unknown [id number] 2.16.840.1.239241.3.579.2.4 62 Unknown [id number] 2.16.840.1.215531.3.579.2.4 62 Unknown [id number] 2.16.840.1.291510.3.579.2.4 62 Unknown [id number] 2.16.840.1.133586.3.579.2.4 62 Unknown [id number] 2.16.840.1.572618.3.579.2.4 62 Unknown [id number] 2.16.840.1.616309.3.579.2.4 62 Social History Date Type Detail Facility Start: 08-22-2017 End: 03-27-2020 Tobacco smoking status NHIS Current every day smoker [facility] Work Phone: End: 03-26-2020 History of tobacco use Cigarette Smoker [facility] Work Phone: Start: 08-22-2017 End: 07-19-2021 Cigarettes smoked current (pack per day) - Reported [facility] Work Phone: Start: 1960 Sex Assigned At Not on file [facility] [employer] Work Phone: Start: 03-27-2020 End: 07-19-2021 Tobacco use and exposure Never used [facility] Start: 03-27-2020 End: 02-14-2022 Alcohol intake Current non-drinker of alcohol (finding) [facility] Start: 10-31-2019 History SDOH Social Connections Phone 5 [facility] Start: 10-31-2019 History SDOH Social Connections Get Together 1 [facility] Start: 10-31-2019 History SDOH Social Connections Membership 2 [facility] Start: 10-31-2019 History SDOH Social Connections Living 4 [facility] Start: 10-31-2019 History SDOH Physica l Activity DPW 0 [facility] Start: 10-31-2019 History SDOH Education 12 [facility] Start: 02-15-2016 Tobacco Comment states a pk ev lee 2 days [facility] Start: 01-02-2022 End: 02-11-2022 Exposure to SARS-CoV-2 (event) Not sure [facility] Start: 04-12-2020 End: 02-18-2024 Tobacco smoking status NHIS Former smoker [facility] End: 03-26-2020 History of tobacco use Current smoker [facility] Start: 1960 Sex Assigned At Female [facility] Start: 05-03-2022 End: 01-17-2023 Tobacco smoking status NHIS Unknown if ever smoked [facility] Start: 07-07-2024 End: 07-09-2024 Sex Female (finding) [facility] Goals Date Patient Goal Desired Activity /State Functional Status Date Assessment Result Facility 07-27-2023 Functional status Bedrest [facility] Work Phone: 04-20-2023 Functional status Activity Abili ty With Assistance of 3 or more [facility] Work Phone: 04-20-2023 Functional status Patient Activity Bedres t [facility] Work Phone: 09-12-2022 Functional status Bedrest;Bedpan [facility] Work Phone: 05-30-2022 Functional status Bedpan [facility] Work Phone: 05-16-2022 Functional status Bedpan [facility] Work Phone: 05-05-2022 Functional status Bedrest [facility] Work Phone: 05-04-2022 Functional status Bedpan [facility] Work Phone: Mental Status Date Assessment Result Facility 07-27-2023 Cognitive function Voice/Name [facility] Work Phone: 07-26-2023 Cognitive function Level Of Cons ciousness Awake;Alert;Appropriate;Follow s Commands [facility] Work Phone: 04-20-2023 Cognitive function Voice/Name [facility] Work Phone: 04-16-2023 Cognitive function Voice/Name [facility] Work Phone: 01-17-2023 Cognitive function Level Of Cons ciousness Awake;Alert;Appropriate;Follow s Commands [facility] Work Phone: 12-02-2022 Cognitive function Level Of Cons ciousness Awake;Alert;Appropriate [facility] Work Phone: 09-12-2022 Cognitive function Voice/Name [facility] Work Phone: 05-30-2022 Cognitive function Voice/Name [facility] Work Phone: 05-16-2022 Cognitive function Voice/Name [facility] Work Phone: 05-05-2022 Cognitive function Appropriate;[facility] Work Phone: 05-04-2022 Cognitive function Appropriate;[facility] Work Phone: 05-03-2022 Cognitive function Appropriate;[facility] Work Phone: Clinical Notes 02-16-2022 to 09-22-2024 Note Date & Type Note Facility 09-22-2024 Progress note [facility] 09-22-2024 Progress note Note Date/Time September 22, 2024 10:58am [facility] [place] [facility] [address] [place], [place] [address] OFFICE VISIT Date of Service: 09/22/24 MR#: [id number] Acct: [id number] Name: HE LAUREANO Rep #: [id number] : 1960 Provider: Dr. Ermias Cho MD Age/Sex: 63/F Location: [facility] Status: Signed HPI HPI History of Present Illness Details: This lady is here for follow-up visit. According to her, she recently was aboutto . In her words, her eyes had rolled back when and "adelfo wings" came intothe room and told her "don't you , wake-up". Per the patient, she subsequently woke up. Denies any chest pains. No other complaints today. Intake Vital Signs 05/20/24 08:39 09/22/24 08:23 Height 5 ft 7 in 5 ft 7 in Weight: 312 lb BMI 48.9 BP 95/62 Blood Pressure Location Lt brachial Position Sitting Respiration 20 H Pulse 92 Pulse Source NIBP Intake Visit Reasons: OVER DUE 3 M FU Financial Advisor Required: No Accompanied by: transportation Is patient in pain?: No Allergies aspirin Allergy (Verified 09/22/24 10:34) Other black pepper (pepper) Allergy (Verified 09/22/24 10:34) Other coconut Allergy (Verified 09/22/24 10:34) Other codeine Allergy (Verified 09/22/24 10:34) Other ibuprofen Allergy (Verified 09/22/24 10:34) Other Influenza Virus Vaccines Allergy (Verified 09/22/24 10:34) Other Penicillins Allergy (Verified 09/22/24 10:34) Anaphylaxis rice Allergy (Verified 09/22/24 10:34) Other tetanus and diphtheria toxoids Allergy (Verified 09/22/24 10:34) Other Tetanus Vaccines and Toxoid Allergy (Verified 09/22/24 10:34) Other Medications ?Medication ?Instructions ?Recorded ?Confirmed ?Type amitriptyline 25 mg tablet 25 mg PO QODAY DEPRESSION 0 05/03/22 09/22/24 History atorvastatin 20 mg tablet 20 mg PO QHS CHOLESTEROL 09/22/24 History famotidine 20 mg tablet 20 mg PO QHS GERD 05/03/22 0 09/22/24 History montelukast 10 mg tablet 10 mg PO DAILY ALLERGIES 08/18/24 History omeprazole 20 mg tablet,delayed 20 mg PO DAILY GERD 09/22/24 History release roflumilast 500 mcg tablet 500 mcg PO DAILY ASTHMA 09/22/24 History (Daliresp) dicyclomine 10 mg capsule 10 mg PO 4X/DAY IRRITABLE LIZZIE WELS 05/05/22 09/22/24 Rx #1 cap albuterol sulfate 90 mcg/actuation 2 puff inhalation Q 2H PRN SOB 09/08/22 09/22/24 History aerosol inhaler cholecalciferol (vitamin D3) 50 50 mcg PO DAILY SUPPLE MENT 04/16/23 09/22/24 History mcg (2,000 unit) tablet loperamide 2 mg capsule (Imodium 2 mg PO Q8H PRN DIARR HEA 04/16/23 09/22/24 History A-D) sertraline 50 mg tablet 150 mg PO DAILY DEPRESSION 0 04/16/23 09/22/24 History acetaminophen 325 mg tablet 650 mg PO Q4H PRN Fever, p ain 07/26/23 09/22/24 History 1-01/16 albuterol sulfate 0.63 mg/3 mL 0.63 mg inhalation 4X/D AY PRN 07/26/23 09/22/24 History solution for nebulization shortness of breath or wheez ing aluminum-mag hydroxide-simethicone 30 ml PO Q4H PRN Ga stric Burning 07/26/23 09/22/24 History 400 mg-400 mg-40 mg/5 mL oral susp (Mag-Al Plus Extra Strength) buspirone 5 mg tablet 5 mg PO BID mental health 09/22/24 History furosemide 20 mg tablet 40 mg PO DAILY diuretic 07/0809/22/24 History guaifenesin 100 mg/5 mL oral 200 mg PO Q4H PRN cough 0 07/26/23 09/22/24 History liquid (Adult Tussin Chest Congestion) loratadine 10 mg tablet (Allergy 10 mg PO DAILY allerg ies 07/26/23 09/22/24 History Relief (loratadine)) ondansetron HCl 4 mg tablet 4 mg PO Q8H PRN nausea and vomiting 07/26/23 09/22/24 History sodium phosphates 19 gram-7 118 ml AL DAILY PRN consti pation 07/26/23 09/22/24 History gram/118 mL enema (Fleet Enema) topiramate 25 mg tablet 25 mg PO DAILY migraines 09/22/24 History gabapentin 100 mg capsule 200 mg PO BID pain 11/23/23 09/22/24 History melatonin 5 mg capsule 5 mg PO QHS insomnia 4 09/22/24 History nystatin 100,000 unit/gram topical 1 applic topical TI D #0 grams 01/22/24 09/22/24 Rx powder ([facility]) sennosides 8.6 mg-docusate sodium 2 tab PO BID PRN PRN Constipation 01/22/24 09/22/24 Rx 50 mg tablet (Stimulant Laxative #0 tabs Plus) hydroxyzine HCl 25 mg tablet 25 mg PO TID 09/22/24 History midodrine 10 mg tablet 10 mg PO TID 09/22/24 History potassium chloride 10 mEq meq PO BID 09/22/24 09/22/24 History capsule,extended release Ejection fraction %: 50 Have you fallen in the past year?: No PFSH Medical History Abnormal EKG Acute on chronic respiratory failure with hypoxia and hypercapnia Acute respiratory failure with hypoxia and hypercapnia Altered mental status Anemia Anxiety Chronic anemia Chronic pain Chronic respiratory failure with hypoxia COPD (chronic obstructive pulmonary disease) Depression Fibromyalgia GERD (gastroesophageal reflux disease) HFrEF (heart failure with reduced ejection fraction) History of anemia History of Clostridioides difficile infection History of COPD History of hypertension History of morbid obesity History of obstructive sleep apnea HTN (hypertension) Hyperlipidemia Hypotension Morbid obesity Morbid obesity Morbid obesity Obesity hypoventilation syndrome MARISOL (obstructive sleep apnea) Peptic ulcer disease Personal history of transient ischemic attack (TIA), and cerebral infarction without residual deficits Seasonal allergies Septic shock TIA (transient ischemic attack) UTI (urinary tract infection) Vitamin D deficiency Surgical History History of ankle surgery Family History Mother CAD (coronary artery disease) COPD (chronic obstructive pulmonary disease) Hypertension Heart disease Father CAD (coronary artery disease) COPD (chronic obstructive pulmonary disease) Hypertension Heart disease Social History housing: assisted Smoking Status: Former smoker alcohol intake: never substance use type: does not use ROS Const Const: Positive for fatigue (physical limitations), weakness, headache(s) (migraines) and daytime sleepiness (all day and night per pt); Negative for weight gain ENT ENT: Positive for headache(s) (migraines); Negative for dizziness, Nosebleed/epistaxis or balance problems Cardio Chest Pain: No Palpitations: No Edema: Bilateral (BLE) Muscle aches with walking: None Resp Respiratory: Positive for SOB with activity and SOB at rest; Negative for SOB orthopneaundefinedSOB lying down GI GI: Positive for heartburn; Negative nausea or vomiting Musc Musc: Positive for muscle aches/ myalgia and muscle weakness; Negative for joint pain or balance problems Neuro Neuro: Positive for headache(s) (migraines) and weakness; Negative for dizziness, lightheadedness, near syncope or syncope Endo Endo: Positive for fatigue (physical limitations) Cardiology Exam Const Appearance: comfortable and no acute distress Nutritional Appearance: obese Neck Neck pain examination difficult because of body habitus. Chest Auscultation: Bilateral: Diminished Lung Sounds Cardio Rate: regular rate Rhythm: regular rhythm Heart sounds: S1 normal and S2 normal GI GI: obese Neuro General: patient alert, patient awake and patient oriented x3 Extremities Lower Extremity Edema: None: Bilateral Supplemental Info Supplemental Information Echo Complete w/ Contrast 07/01/2024: Interpretation Summary The study was technically difficult with suboptimal images. Overall left ventricular systolic function appears normal with LVEF 50%. Left atrium appears mildly dilated. Valves not well-visualized. Echo Complete w/ Contrast 05/05/2022: Interpretation Summary: The estimated ejection fraction is 55-60%. AV difficult to visualize/TDS Contrast echo/definity used with normal LV wall motion and LV systolic function. CTA Chest w/wo Contrast 11/23/2023: Findings: Normal enhancement of the main pulmonary artery and right and left pulmonary arteries. Normal enhancement of the bilateral peripheral pulmonary arteries. There is no demonstrated pulmonary embolism. Normal thoracic aorta and visualized great vessels. There is no demonstrated aortic dissection. Normal heart and pericardium. Right shifted mediastinum. Normal hilar regions. Normal visualized trachea and bronchi. Elevated right hemidiaphragm. Volume lossof the right lung with mild effusion and diffuse consolidation/atelectasis. Normal chest wall structures. Normal Osseous structures. Cholelithisasis. Assessment and Plan Assessment and Plan (1) Abnormal EKG: Status: Chronic Plan: Right bundle branch block on ECG. History of COPD. Morbid obesity. Obstructive sleep apnea. LVEF 50% on echocardiogram. (2) History of COPD: Status: Chronic Plan: On 24-hour supplemental oxygen therapy. Continue as per PCP/pulmonology. (3) Morbid obesity with BMI of 45.0-49.9, adult: Status: Chronic Plan: Lose weight. (4) Dyslipidemia: Status: Chronic Plan: On atorvastatin. Continue to manage as per PCP. (5) Confusion: Status: Chronic Plan: Patient appears to have chronic daily altered mental status. Recommend evaluation by psychiatry. Defer to PCP. Plan Details Follow Up: 12 Months Coding Level of Care Code Off vis,est,level 3 Diagnoses Abnormal EKG R94.31 History of COPD Z87.09 Morbid obesity with BMI of 45.0-49.9, adult E66.01; Z68.42 Dyslipidemia E78.5 Confusion R41.0 Coding Level of Care Code Off vis,est,level 3 Diagnoses Abnormal EKG R94.31 History of COPD Z87.09 Morbid obesity with BMI of 45.0-49.9, adult E66.01; Z68.42 Dyslipidemia E78.5 Confusion R41.0 Clinical Quality Measures Falls Risk Screening/Assistive Devices Have you fallen in the past year?: No Cardiac Ejection fraction %: 50 09/22/24 1058 <Electronically signed by Theo Cho MD> Date _ Theo Cho MD Cosigner Signature: Date (if applicable) CC: Dr. Heath Macario, DO ~ [facility] Work Phone: 1(426) 798-643602-11-2025 Evaluation note* Diagnosis Onset Date Resolution Status Admit Date Abnormal EKG chronic May 8:35am Dyslipidemia chronic May 8:35am History of COPD chronic May 20, 2024 8:35am Morbid obesity with BMI of 45.0-49.9, adult chronic May 20, 2024 8:35am [facility] Work Phone: 1(179) 862-307910-15-2024 [facility]08-21-2024 [facility]04-19-2024 Consult note Author Kayla Hurtado [facility] July 27, 2023 2:19pm Note Date/Time July 27, 2023 2:1 9pm [facility] Medical Records Department [address] [place] [address] Counseling Note - Pharmacy 07/27/23 1418 MR#: [id number] Acct: [id number] Name: HE LAUREANO Rep #:[id number] : 1960 62 From: Kayla Hurtado PCP: Sepideh Patterson MD Status:ADM VANDANA Y Location: [place] [address] Pharmacy DC Med Reconciliation Pharmacy Service has performed discharge medication reconciliation for this patient. The patient's discharge medication list was reviewed for discrepancies and discrepancies were resolved. Medications at Discharge Home Medications amitriptyline 25 mg tablet 25 mg PO QODAY DEPRESSION 05/03/22 atorvastatin 20 mg tablet 20 mg PO QHS CHOLESTEROL 05/03/22 famotidine 20 mg tablet 20 mg PO QHS GERD 05/03/22 fluticasone propionate 50 mcg/actuation nasal spray,suspension 2 spray intranasal BID PRN NASAL CONGESTION 05/03/22 losartan 50 mg tablet 50 mg PO DAILY BLOOD PRESSURE 05/03/22 montelukast 10 mg tablet 10 mg PO DAILY ALLERGIES 05/03/22 omeprazole 20 mg tablet,delayed release 20 mg PO DAILY GERD 05/03/22 roflumilast 500 mcg tablet (Daliresp) 500 mcg PO DAILY ASTHMA 05/03/22 sertraline 100 mg tablet (Zoloft) 100 mg PO QHS DEPRESSION 05/03/22 dicyclomine 10 mg capsule 10 mg PO 4X/DAY IRRITABLE BOWELS #1 cap 05/05/22 albuterol sulfate 90 mcg/actuation aerosol inhaler 2 puff inhalation Q2H PRN SOB09/08/22 cholecalciferol (vitamin D3) 50 mcg (2,000 unit) tablet 50 mcg PO DAILY SUPPLEMENT 04/16/23 loperamide 2 mg capsule (Imodium A-D) 2 mg PO Q8H PRN DIARRHEA 04/16/23 prednisone 10 mg tablet 10 mg PO DAILY COPD 04/16/23 sertraline 50 mg tablet 50 mg PO DAILY DEPRESSION 04/16/23 acetaminophen 325 mg tablet 650 mg PO Q4H PRN Fever, pain 1-01/1607/26/23 acetaminophen 650 mg rectal suppository 650 mg AL Q4H PRN pain 07/26/23 albuterol sulfate 0.63 mg/3 mL solution for nebulization 0.63 mg inhalation 4X/DAY PRN shortness of breath or wheezing 07/26/23 aluminum-mag hydroxide-simethicone 400 mg-400 mg-40 mg/5 mL oral susp (Mag-Al Plus Extra Strength) 30 ml PO Q6H PRN Gastric Burning 07/26/23 buspirone 5 mg tablet 5 mg PO BID 07/26/23 furosemide 20 mg tablet 20 mg PO BID 07/26/23 guaifenesin 100 mg/5 mL oral liquid (Adult Tussin Chest Congestion) 200 mg PO Q4H PRN cough 07/26/23 loratadine 10 mg tablet (Allergy Relief (loratadine)) 10 mg PO DAILY 07/26/23 menthol 0.44 %-zinc oxide 20.6 % topical ointment (Calmoseptine) 1 applic topical 4X/DAY 07/26/23 ondansetron HCl 4 mg tablet 4 mg PO Q8H PRN nausea and vomiting 07/26/23 sodium phosphates 19 gram-7 gram/118 mL enema (Fleet Enema) 118 ml AL DAILY PRN constipation 07/26/23 topiramate 25 mg tablet 25 mg PO DAILY 07/26/23 trazodone 50 mg tablet 50 mg PO QHS 07/26/23 07/27/23 1419 <Electronically signed by Kayla Hurtado> Date _ Kayla Hurtado Cosigner Signature (if applicable): Date CC: ~ Signed [facility] Work Phone: 1(168) 787-777904-19-2024 Discharge summary Author Ahsan Sousa [facility] July 27, 2023 1:34pm Note Date/Time July 27, 2023 12: 14pm [facility] Medical Records Department [address] [place] [address] Transfer to [facility] MR#: [id number] Acct: [id number] Name: HE LAUREANO Rep #:[id number] : 1960 62 From: Ahsan gifford DO PCP: Sepideh Patterson MD Status:ADM VANDANA Certification of patient admission REQUIRED AT TIME OF ADMISSION. I CERTIFY THAT POST-HOSPITAL ECF SERVICES ARE REQUIRED TO BE GIVEN ON AN IN-PATIENT BASIS BECAUSE OF THE ABOVE NAMED PATIENT'S NEED FOR RESIDENTIAL CARE ON A CONTINUING BASIS FOR THE CONDITION(S) FOR WHICH HE/SHE WAS RECEIVING IN-PATIENT HOSPITAL SERVICES PRIOR TO HIS/HER TRANSFER TO THE [facility]. 07/27/23 1259<Electronically signed by Ahsan Sousa DO> Diet Diet Order/Speech Therapy: 07/26/23 16:35 Diet: Cardiac - Heart Healthy Food consistency:: Regular Liquid Consistency:: Regular/Thin Routine Orders/Code Status O2 Frequency: Continuous Keep PO Greater than or Equal to (%): 90 Code Status: Full Code Therapies Weight Bearing: Full weight bearing Physical Therapy: Eval and Treat Occupational Therapy: Eval and Treat Problem/Diagnosis (1) Encephalopathy acute: Status: Acute Code(s): G93.40 - Encephalopathy, unspecified Plan Patient is a 62-year-old female who presented to [facility] ED on 07/26/2023 with worsening confusion and lethargy. Short hospital course as noted below. Patient discharged back to [facility] in stable condition on 07/26. 1. Acute metabolic encephalopathy, resolved; acute on chronic hypercapnic respiratory failure secondary to noncompliance with PAP therapy Came from [facility] with worsening confusion and lethargy. Found on labs there to have a bicarb greater than 45. Was noted by staff there that patient had not been wearing her CPAP. Patient also reported a few episodes of diarrhea with emesis on day of admission as noted below. Initial ABG in the ED showed a pH of7.30, pCO2 of 93, pO2 of 57 on 3 L nasal cannula. Initial BMP with bicarb againgreater than 45, labs otherwise benign. Placed on BiPAP in afternoon and overnight, repeat ABG on morning of 07/26 with pH 7.39, pCO2 68. Bicarb on BMP slightly improved to 43. ? Patient had resolution of encephalopathy with improvement in hypercapnia on BiPAP, presumed etiology of encephalopathy was hypercapnia. Will be very important for patient to wear BiPAP with naps and with sleep going forward. Stable on home 3 to 4 L nasal cannula on discharge. Continue home meds on discharge. 2. Nausea/vomiting/diarrhea, resolved ? Unclear etiology. Lab workup was fairly benign, BMP with no significant electrolyte abnormalities. Stool sample was negative for C. difficile, stool PCR also negative. Had no episodes of nausea or vomiting during hospitalizationand no episodes of diarrhea on hospital day 2. No further workup needed on discharge. 3. Chronic debility ? Lives in ECF. PT/OT/case management followed. Stable for discharge back to ECF on 07/26. Chronic medical conditions: ? Chronic normocytic anemia: Hemoglobin 10.3 on admit, baseline hemoglobin 9-10. Stable. ? Anxiety and depression: Stable. Continue home BuSpar, sertraline, amitriptyline. ? HFrEF: Last echo in 04/2022 showed EF 55 to 60%, normal LV wall motion and function, difficult study due to body habitus. Hydrated on admission as noted above without issue. Continue home aspirin, statin, losartan. ? GERD with history of peptic ulcer disease: Continue home PPI. ? History of TIA: Continue home aspirin and statin. ? Allergic rhinitis: Continue home fluticasone, loratadine and montelukast. ? Hyperlipidemia: Continue home statin. ? Former tobacco use: Encouraged continued cessation. ? Morbid obesity: BMI 52 on admit. Complicated hospital course, care and prognosis. ? MARISOL: Very important that patient wear BiPAP at night going forward. Total clinical time spent by myself addressing the patient's medical issues, reviewing all the data, and collaborating with patient's care team: 35 minutes. Allergies/Procedures Done in Hospital Allergies aspirin Allergy (Verified 07/26/23 13:33) Other black pepper [pepper] Allergy (Verified 07/26/23 13:33) Other coconut Allergy (Verified 07/26/23 13:33) Other codeine Allergy (Verified 07/26/23 13:33) Other ibuprofen Allergy (Verified 07/26/23 13:33) Other Influenza Virus Vaccines Allergy (Verified 07/26/23 13:33) Other Penicillins Allergy (Verified 07/26/23 13:33) Anaphylaxis rice Allergy (Verified 07/26/23 13:33) Other tetanus and diphtheria toxoids Allergy (Verified 07/26/23 13:33) Other Tetanus Vaccines and Toxoid Allergy (Verified 07/26/23 13:33) Other Procedures: EKG Type of Care/Length of Stay Estimated LOS: More Than 30 Days Type of Care Needed: Intermediate Rehab Potential: Fair Prognosis: Fair Additional Orders/Day of Discharge H&P will serve as current which was dated: 07/26/23 Day of Discharge: 07/27/23 Discharge Plan Admission Admit Date/Time: 07/26/23 15:43 Primary Reason for Your Visit: Increased confusion Attending Provider: Ahsan Sousa Primary Care Provider: Sepideh Patterson Consulting Providers: Elizabeth Choe Discharge Orders/Prescriptions Prescriptions: Continued losartan 50 mg Tablet 50 mg PO DAILY atorvastatin 20 mg Tablet 20 mg PO QHS sertraline [Zoloft] 100 mg Tablet 100 mg PO QHS Rx Instructions: TAKE ONE 50MG AND ONE 100MG TABLET TOGETHER ONCE DAILY FOR A TOTAL DAILY DOSE OF 150MG. famotidine 20 mg Tablet 20 mg PO QHS amitriptyline 25 mg Tablet 25 mg PO QODAY montelukast 10 mg Tablet 10 mg PO DAILY fluticasone propionate 50 mcg/actuation [place],Suspension 2 spray INTRANASAL BID PRN (Reason: NASAL CONGESTION) omeprazole 20 mg Tablet,Delayed Release (Dr/Ec) 20 mg PO DAILY roflumilast [Daliresp] 500 mcg Tablet 500 mcg PO DAILY dicyclomine 10 mg Capsule 10 mg PO 4X/DAY Qty: 1 0RF albuterol sulfate 90 mcg/actuation Hfa Aerosol Inhaler 2 puff INHALATION Q2H PRN (Reason: SOB) prednisone 10 mg tablet 10 mg PO DAILY cholecalciferol (vitamin D3) 50 mcg (2,000 unit) tablet 50 mcg PO DAILY sertraline 50 mg tablet 50 mg PO DAILY Rx Instructions: TAKE ONE 50MG AND ONE 100MG TABLET TOGETHER ONCE DAILY FOR A TOTAL DAILY DOSE OF 150MG. loperamide [Imodium A-D] 2 mg capsule 2 mg PO Q8H PRN (Reason: DIARRHEA ) albuterol sulfate 0.63 mg/3 mL solution for nebulization 0.63 mg inhalation 4X/DAY PRN (Reason: shortness of breath or wheezing) acetaminophen 650 mg suppository 650 mg AL Q4H PRN (Reason: pain) buspirone 5 mg tablet 5 mg PO BID Fleet Enema 19-7 gram/118 mL enema 118 ml AL DAILY PRN (Reason: constipation) Rx Instructions: USE FOR UP TO 2 EPISODES IF DULCOLAX SUPPOSITORY INEFFECTIVE. CALL PHYSICIAN IF NO BM FOR 4 DAYS guaifenesin [Adult Tussin Chest Congestion] 100 mg/5 mL liquid 200 mg PO Q4H PRN (Reason: cough) furosemide 20 mg tablet 20 mg PO BID loratadine [Allergy Relief (loratadine)] 10 mg tablet 10 mg PO DAILY trazodone 50 mg tablet 50 mg PO QHS ondansetron HCl 4 mg tablet 4 mg PO Q8H PRN (Reason: nausea and vomiting) topiramate 25 mg tablet 25 mg PO DAILY acetaminophen 325 mg Tablet 650 mg PO Q4H PRN (Reason: Fever, pain 1-01/16) alum-mag hydroxide-simeth [Mag-Al Plus Extra Strength] 400-400-40 mg/5 mL Suspension 30 ml PO Q6H PRN (Reason: Gastric Burning) menthol-zinc oxide [Calmoseptine] 0.44-20.6 % Ointment 1 applic topical 4X/DAY Protocol: *Topical Application Instructions APPLICATION INSTRUCTIONS: apply to affected region Rx Instructions: APPLY TO BUTTOCK 4 TIMES A DAY FOR EXCORIATION Referrals / Follow Up: Sepideh Patterson MD [Primary Care Provider] - Disposition Disposition (needs filled in before D/C Order can be placed): [facility] Acute Care 07/27/23 1259 <Electronically signed by Ahsan Sousa DO> Cosigner Signature (if applicable): CC: Dr. Elizabeth Choe MD; Sepideh Patterson MD ~ ADDENDUM by Dr. Ahsan Sousa DO on 07/27/23 at 1334 Addendum Patient will need to wear BiPAP with naps and at night going forward. Please use the following settings for the BiPAP: BiPAP facemask, IPAP 16, EPAP/CPAP 10,BiPAP rate 12, FiO2 40%, high pressure alarm 30, low pressure alarm 2. 07/27/23 1334 <Electronically signed by Ahsan Sousa DO> cc: Dr. Elizabeth Choe MD; Sepideh Patterson MD ~* Signed [facility] Work Phone: 1(988) 194-266404-19-2024 Discharge summary Author Ahsan Sousa [facility] July 27, 2023 1:01pm Note Date/Time July 27, 2023 11: 30am [facility] Medical Records Department [address] [place] [address] Discharge Summary 07/27/23 1130 MR#: [id number] Acct: [id number] Name: HE LAUREANO Rep #:[id number] : 1960 62 From: Ahsan gifford DO PCP: Sepideh Patterson MD Status:ADM VANDANA Location: [place] [address] Providers Date of Admission: 07/26/23 Date of Discharge: 07/27/23 Primary Care Physician: Dr. Sepideh Patterson MD Reason For Visit: ENCEPHALOPATHY,HYPERCAPNIA,NONCOMP W/ BIPAP, N/V/D Diagnosis Discharge Diagnosis (1) Encephalopathy acute: Status: Acute Code(s): G93.40 - Encephalopathy, unspecified Medications at Discharge Home Medications amitriptyline 25 mg tablet 25 mg PO QODAY DEPRESSION 05/03/22 atorvastatin 20 mg tablet 20 mg PO QHS CHOLESTEROL 05/03/22 famotidine 20 mg tablet 20 mg PO QHS GERD 05/03/22 fluticasone propionate 50 mcg/actuation nasal spray,suspension 2 spray intranasal BID PRN NASAL CONGESTION 05/03/22 losartan 50 mg tablet 50 mg PO DAILY BLOOD PRESSURE 05/03/22 montelukast 10 mg tablet 10 mg PO DAILY ALLERGIES 05/03/22 omeprazole 20 mg tablet,delayed release 20 mg PO DAILY GERD 05/03/22 roflumilast 500 mcg tablet (Daliresp) 500 mcg PO DAILY ASTHMA 05/03/22 sertraline 100 mg tablet (Zoloft) 100 mg PO QHS DEPRESSION 05/03/22 dicyclomine 10 mg capsule 10 mg PO 4X/DAY IRRITABLE BOWELS #1 cap 05/05/22 albuterol sulfate 90 mcg/actuation aerosol inhaler 2 puff inhalation Q2H PRN SOB09/08/22 cholecalciferol (vitamin D3) 50 mcg (2,000 unit) tablet 50 mcg PO DAILY SUPPLEMENT 04/16/23 loperamide 2 mg capsule (Imodium A-D) 2 mg PO Q8H PRN DIARRHEA 04/16/23 prednisone 10 mg tablet 10 mg PO DAILY COPD 04/16/23 sertraline 50 mg tablet 50 mg PO DAILY DEPRESSION 04/16/23 acetaminophen 325 mg tablet 650 mg PO Q4H PRN Fever, pain 1-01/1607/26/23 acetaminophen 650 mg rectal suppository 650 mg AL Q4H PRN pain 07/26/23 albuterol sulfate 0.63 mg/3 mL solution for nebulization 0.63 mg inhalation 4X/DAY PRN shortness of breath or wheezing 07/26/23 aluminum-mag hydroxide-simethicone 400 mg-400 mg-40 mg/5 mL oral susp (Mag-Al Plus Extra Strength) 30 ml PO Q6H PRN Gastric Burning 07/26/23 buspirone 5 mg tablet 5 mg PO BID 07/26/23 furosemide 20 mg tablet 20 mg PO BID 07/26/23 guaifenesin 100 mg/5 mL oral liquid (Adult Tussin Chest Congestion) 200 mg PO Q4H PRN cough 07/26/23 loratadine 10 mg tablet (Allergy Relief (loratadine)) 10 mg PO DAILY 07/26/23 menthol 0.44 %-zinc oxide 20.6 % topical ointment (Calmoseptine) 1 applic topical 4X/DAY 07/26/23 ondansetron HCl 4 mg tablet 4 mg PO Q8H PRN nausea and vomiting 07/26/23 sodium phosphates 19 gram-7 gram/118 mL enema (Fleet Enema) 118 ml AL DAILY PRN constipation 07/26/23 topiramate 25 mg tablet 25 mg PO DAILY 07/26/23 trazodone 50 mg tablet 50 mg PO QHS 07/26/23 Hospital Course Summary of Care Provided Minutes Spent on Discharge: 35 Hospital Course: Patient is a 62-year-old female who presented to [facility] ED on 07/26/2023 with worsening confusion and lethargy. Short hospital course as noted below. Patient discharged back to [facility] in stable condition on 07/26. 1. Acute metabolic encephalopathy, resolved; acute on chronic hypercapnic respiratory failure secondary to noncompliance with PAP therapy Came from [facility] with worsening confusion and lethargy. Found on labs there to have a bicarb greater than 45. Was noted by staff there that patient had not been wearing her CPAP. Patient also reported a few episodes of diarrhea with emesis on day of admission as noted below. Initial ABG in the ED showed a pH of7.30, pCO2 of 93, pO2 of 57 on 3 L nasal cannula. Initial BMP with bicarb againgreater than 45, labs otherwise benign. Placed on BiPAP in afternoon and overnight, repeat ABG on morning of 07/26 with pH 7.39, pCO2 68. Bicarb on BMP slightly improved to 43. ? Patient had resolution of encephalopathy with improvement in hypercapnia on BiPAP, presumed etiology of encephalopathy was hypercapnia. Will be very important for patient to wear BiPAP with naps and with sleep going forward. Stable on home 3 to 4 L nasal cannula on discharge. Continue home meds on discharge. 2. Nausea/vomiting/diarrhea, resolved ? Unclear etiology. Lab workup was fairly benign, BMP with no significant electrolyte abnormalities. Stool sample was negative for C. difficile, stool PCR also negative. Had no episodes of nausea or vomiting during hospitalizationand no episodes of diarrhea on hospital day 2. No further workup needed on discharge. 3. Chronic debility ? Lives in ECF. PT/OT/case management followed. Stable for discharge back to [facility] on 07/26. Chronic medical conditions: ? Chronic normocytic anemia: Hemoglobin 10.3 on admit, baseline hemoglobin 9-10. Stable. ? Anxiety and depression: Stable. Continue home BuSpar, sertraline, amitriptyline. ? HFrEF: Last echo in 04/2022 showed EF 55 to 60%, normal LV wall motion and function, difficult study due to body habitus. Hydrated on admission as noted abovewithout issue. Continue home aspirin, statin, losartan. ? GERD with history of peptic ulcer disease: Continue home PPI. ? History of TIA: Continue home aspirin and statin. ? Allergic rhinitis: Continue home fluticasone, loratadine and montelukast. ? Hyperlipidemia: Continue home statin. ? Former tobacco use: Encouraged continued cessation. ? Morbid obesity: BMI 52 on admit. Complicated hospital course, care and prognosis. ? MARISOL: Very important that patient wear BiPAP at night going forward. Total clinical time spent by myself addressing the patient's medical issues, reviewing all the data, and collaborating with patient's care team: 35 minutes. Physical Exam Const alert, oriented x3 and no apparent distress Constitutional Narrative: Morbidly obese, otherwise alert and oriented, laying comfortably in bed, conversing normally, in no acute distress. General Appearance: cooperative and comfortable HEENT normocephalic, head/scalp atraumatic, hearing grossly normal bilaterally, nasal mucous membranes and turbinates normal and moist oral mucous membranes Eyes PERRL, EOMs intact bilaterally and conjunctivae normal Neck full ROM Chest inspection of chest normal Resp normal respiratory effort and no use of accessory muscles Resp Narrative: Mildly decreased breath sounds bilaterally, difficult to auscultate due to body habitus. No wheezing or crackles noted. Cardio regular rate, regular rhythm, no murmurs and peripheral pulses 2+ throughout GI normal to inspection, nondistended, normoactive bowel sounds, soft to palpation,non-tender and non-distended Back/Spine normal ROM Extremity normal to inspection, full ROM and no pedal edema Skin no rashes or lesions noted Neuro no focal motor deficits and no sensory deficits noted Speech: speech normal Psych mental status grossly normal Weight / BMI Weight Weight: 147.6 kg Body Mass Index (BMI) 52.5 ABG / Lab / Microbiology Data 07/27/23 04:48 07/27/23 04:48 Laboratory: Laboratory Results - last 24 hr 07/26/23 12:45: WBC 11.4 H, RBC 3.96 L, Hgb 10.3 L, Hct 36.8 L, MCV 92.9, MCH 26.0 L, MCHC 28.0 L, RDW Std Deviation 45.0 H, RDW Coeff of David 13.2, Plt Count 231, MPV 11.7, Immature Gran % (Auto) 0.600, Neut % (Auto) 76.2 H, Lymph % (Auto) 14.3 L, Nobles % (Auto) 7.7, Eos % (Auto) 0.9, Baso % (Auto) 0.3, Absolute Neuts (auto) 8.7 H, Absolute Lymphs (auto) 1.63, Nucleated RBC % 0, Sodium 141, Potassium 4.4, Chloride 95 L, Carbon Dioxide > 45.0 H*, Anion Gap TNP, BUN 22 H,Creatinine 0.67, Est GFR (MDRD) Af Amer 114, Est GFR (MDRD) Non-Af 95, BUN/Creatinine Ratio 32.7 H, Glucose 133 H, Calcium 10.7 H, B-Natriuretic Peptide 26.1, Procalcitonin < 0.04 07/27/23 04:48: WBC 10.4, RBC 3.75 L, Hgb 9.9 L, Hct 34.1 L, MCV 90.9, MCH 26.4 L, MCHC 29.0 L, RDW Std Deviation 44.1 H, RDW Coeff of David 13.2, Plt Count 233, MPV 12.0, Immature Gran % (Auto) 0.700, Neut % (Auto) 65.8, Lymph % (Auto) 24.3,Nobles % (Auto) 7.7, Eos % (Auto) 1.3, Baso % (Auto) 0.2, Absolute Neuts (auto) 6.9, Absolute Lymphs (auto) 2.52, Nucleated RBC % 0, Sodium 144, Potassium 4.0, Chloride 99, Carbon Dioxide 43.0 H, Anion Gap 2 L, BUN 26 H, Creatinine 0.61, Estim Creat Clear Calc 144.67, Est GFR (MDRD) Af Amer 127, Est GFR (MDRD) Non-Af105, BUN/Creatinine Ratio 42.3 H, Glucose 84, Calcium 10.4 H, Total Bilirubin 0.30, AST 9 L, ALT 8 L, Alkaline Phosphatase 87, Total Protein 6.3 L, Albumin 2.6 L, Globulin 3.7, Albumin/Globulin Ratio 0.7 L Microbiology: Microbiology 07/26/23 17:58 Stool Clostridioides difficile (PCR) - Final ABG: ABG 07/26/23 07/26/23 07/26/23 13:09 13:09 13:09 Specimen Type ART Cancelled Cancelled Sample Site R RADIAL pH Bicarbonate Actual Total CO2 Base Excess O2 Saturation O2 % ABG pCO2 ABG pO2 Rosa Test Respiration Rate O2 Delivery Device Liter Flow Minute Volume Vent Mode Inspiratory Time Expiratory Time Tidal Volume Mean Airway Pressure POC PEEP Peak Inspir Pressure POC Pressure Suppt Pressure Control Pressure High Pressure Low Time High Time Low EPAP IPAP Blood Gas Comments Crit Call To/Read Back Blood Gas Notified Whom Blood Gas Notified Time Clinical Comments 07/26/23 07/26/23 07/26/23 13:09 13:09 13:09 Specimen Type Sample Site Cancelled Cancelled pH 7.30 L Cancelled Bicarbonate Actual Total CO2 Base Excess O2 Saturation O2 % ABG pCO2 ABG pO2 Rosa Test Respiration Rate O2 Delivery Device Liter Flow Minute Volume Vent Mode Inspiratory Time Expiratory Time Tidal Volume Mean Airway Pressure POC PEEP Peak Inspir Pressure POC Pressure Suppt Pressure Control Pressure High Pressure Low Time High Time Low EPAP IPAP Blood Gas Comments Crit Call To/Read Back Blood Gas Notified Whom Blood Gas Notified Time Clinical Comments 07/26/23 07/26/23 07/26/23 13:09 13:09 13:09 Specimen Type Sample Site pH Cancelled Bicarbonate Actual 46.3 H Cancelled Cancelled Total CO2 49 Base Excess O2 Saturation O2 % ABG pCO2 ABG pO2 Rosa Test Respiration Rate O2 Delivery Device Liter Flow Minute Volume Vent Mode Inspiratory Time Expiratory Time Tidal Volume Mean Airway Pressure POC PEEP Peak Inspir Pressure POC Pressure Suppt Pressure Control Pressure High Pressure Low Time High Time Low EPAP IPAP Blood Gas Comments Crit Call To/Read Back Blood Gas Notified Whom Blood Gas Notified Time Clinical Comments 07/26/23 07/26/23 07/26/23 13:09 13:09 13:09 Specimen Type Sample Site pH Bicarbonate Actual Total CO2 Cancelled Cancelled Base Excess 20 H Cancelled O2 Saturation O2 % ABG pCO2 ABG pO2 Rosa Test Respiration Rate O2 Delivery Device Liter Flow Minute Volume Vent Mode Inspiratory Time Expiratory Time Tidal Volume Mean Airway Pressure POC PEEP Peak Inspir Pressure POC Pressure Suppt Pressure Control Pressure High Pressure Low Time High Time Low EPAP IPAP Blood Gas Comments Crit Call To/Read Back Blood Gas Notified Whom Blood Gas Notified Time Clinical Comments 07/26/23 07/26/23 07/26/23 13:09 13:09 13:09 Specimen Type Sample Site pH Bicarbonate Actual Total CO2 Base Excess Cancelled O2 Saturation 83 L Cancelled Cancelled O2 % Cancelled ABG pCO2 ABG pO2 Rosa Test Respiration Rate O2 Delivery Device Liter Flow Minute Volume Vent Mode Inspiratory Time Expiratory Time Tidal Volume Mean Airway Pressure POC PEEP Peak Inspir Pressure POC Pressure Suppt Pressure Control Pressure High Pressure Low Time High Time Low EPAP IPAP Blood Gas Comments Crit Call To/Read Back Blood Gas Notified Whom Blood Gas Notified Time Clinical Comments 07/26/23 07/26/23 07/26/23 13:09 13:09 13:09 Specimen Type Sample Site pH Bicarbonate Actual Total CO2 Base Excess O2 Saturation O2 % Cancelled ABG pCO2 93.3 H* Cancelled Cancelled ABG pO2 57 L Rosa Test Respiration Rate O2 Delivery Device Liter Flow Minute Volume Vent Mode Inspiratory Time Expiratory Time Tidal Volume Mean Airway Pressure POC PEEP Peak Inspir Pressure POC Pressure Suppt Pressure Control Pressure High Pressure Low Time High Time Low EPAP IPAP Blood Gas Comments Crit Call To/Read Back Blood Gas Notified Whom Blood Gas Notified Time Clinical Comments 07/26/23 07/26/23 07/26/23 13:09 13:09 13:09 Specimen Type Sample Site pH Bicarbonate Actual Total CO2 Base Excess O2 Saturation O2 % ABG pCO2 ABG pO2 Cancelled Cancelled Rosa Test POS Cancelled Respiration Rate O2 Delivery Device Liter Flow Minute Volume Vent Mode Inspiratory Time Expiratory Time Tidal Volume Mean Airway Pressure POC PEEP Peak Inspir Pressure POC Pressure Suppt Pressure Control Pressure High Pressure Low Time High Time Low EPAP IPAP Blood Gas Comments Crit Call To/Read Back Blood Gas Notified Whom Blood Gas Notified Time Clinical Comments 07/26/23 07/26/23 07/26/23 13:09 13:09 13:09 Specimen Type Sample Site pH Bicarbonate Actual Total CO2 Base Excess O2 Saturation O2 % ABG pCO2 ABG pO2 Rosa Test Cancelled Respiration Rate Cancelled Cancelled O2 Delivery Device CANNULA Cancelled Liter Flow Minute Volume Vent Mode Inspiratory Time Expiratory Time Tidal Volume Mean Airway Pressure POC PEEP Peak Inspir Pressure POC Pressure Suppt Pressure Control Pressure High Pressure Low Time High Time Low EPAP IPAP Blood Gas Comments Crit Call To/Read Back Blood Gas Notified Whom Blood Gas Notified Time Clinical Comments 07/26/23 07/26/23 07/26/23 13:09 13:09 13:09 Specimen Type Sample Site pH Bicarbonate Actual Total CO2 Base Excess O2 Saturation O2 % ABG pCO2 ABG pO2 Rosa Test Respiration Rate O2 Delivery Device Cancelled Liter Flow 3.0 Cancelled Cancelled Minute Volume Cancelled Vent Mode Inspiratory Time Expiratory Time Tidal Volume Mean Airway Pressure POC PEEP Peak Inspir Pressure POC Pressure Suppt Pressure Control Pressure High Pressure Low Time High Time Low EPAP IPAP Blood Gas Comments Crit Call To/Read Back Blood Gas Notified Whom Blood Gas Notified Time Clinical Comments 07/26/23 07/26/23 07/26/23 13:09 13:09 13:09 Specimen Type Sample Site pH Bicarbonate Actual Total CO2 Base Excess O2 Saturation O2 % ABG pCO2 ABG pO2 Rosa Test Respiration Rate O2 Delivery Device Liter Flow Minute Volume Cancelled Vent Mode Cancelled Cancelled Inspiratory Time Cancelled Cancelled Expiratory Time Cancelled Tidal Volume Mean Airway Pressure POC PEEP Peak Inspir Pressure POC Pressure Suppt Pressure Control Pressure High Pressure Low Time High Time Low EPAP IPAP Blood Gas Comments Crit Call To/Read Back Blood Gas Notified Whom Blood Gas Notified Time Clinical Comments 07/26/23 07/26/23 07/26/23 13:09 13:09 13:09 Specimen Type Sample Site pH Bicarbonate Actual Total CO2 Base Excess O2 Saturation O2 % ABG pCO2 ABG pO2 Rosa Test Respiration Rate O2 Delivery Device Liter Flow Minute Volume Vent Mode Inspiratory Time Expiratory Time Cancelled Tidal Volume Cancelled Cancelled Mean Airway Pressure Cancelled Cancelled POC PEEP Cancelled Peak Inspir Pressure POC Pressure Suppt Pressure Control Pressure High Pressure Low Time High Time Low EPAP IPAP Blood Gas Comments Crit Call To/Read Back Blood Gas Notified Whom Blood Gas Notified Time Clinical Comments 07/26/23 07/26/23 07/26/23 13:09 13:09 13:09 Specimen Type Sample Site pH Bicarbonate Actual Total CO2 Base Excess O2 Saturation O2 % ABG pCO2 ABG pO2 Rosa Test Respiration Rate O2 Delivery Device Liter Flow Minute Volume Vent Mode Inspiratory Time Expiratory Time Tidal Volume Mean Airway Pressure POC PEEP Cancelled Peak Inspir Pressure Cancelled Cancelled POC Pressure Suppt Cancelled Cancelled Pressure Control Cancelled Pressure High Pressure Low Time High Time Low EPAP IPAP Blood Gas Comments Crit Call To/Read Back Blood Gas Notified Whom Blood Gas Notified Time Clinical Comments 07/26/23 07/26/23 07/26/23 13:09 13:09 13:09 Specimen Type Sample Site pH Bicarbonate Actual Total CO2 Base Excess O2 Saturation O2 % ABG pCO2 ABG pO2 Rosa Test Respiration Rate O2 Delivery Device Liter Flow Minute Volume Vent Mode Inspiratory Time Expiratory Time Tidal Volume Mean Airway Pressure POC PEEP Peak Inspir Pressure POC Pressure Suppt Pressure Control Cancelled Pressure High Cancelled Cancelled Pressure Low Cancelled Cancelled Time High Cancelled Time Low EPAP IPAP Blood Gas Comments Crit Call To/Read Back Blood Gas Notified Whom Blood Gas Notified Time Clinical Comments 07/26/23 07/26/23 07/26/23 13:09 13:09 13:09 Specimen Type Sample Site pH Bicarbonate Actual Total CO2 Base Excess O2 Saturation O2 % ABG pCO2 ABG pO2 Rosa Test Respiration Rate O2 Delivery Device Liter Flow Minute Volume Vent Mode Inspiratory Time Expiratory Time Tidal Volume Mean Airway Pressure POC PEEP Peak Inspir Pressure POC Pressure Suppt Pressure Control Pressure High Pressure Low Time High Cancelled Time Low Cancelled Cancelled EPAP Cancelled Cancelled IPAP Cancelled Blood Gas Comments Crit Call To/Read Back Blood Gas Notified Whom Blood Gas Notified Time Clinical Comments 07/26/23 07/26/23 07/26/23 13:09 13:09 13:09 Specimen Type Sample Site pH Bicarbonate Actual Total CO2 Base Excess O2 Saturation O2 % ABG pCO2 ABG pO2 Rosa Test Respiration Rate O2 Delivery Device Liter Flow Minute Volume Vent Mode Inspiratory Time Expiratory Time Tidal Volume Mean Airway Pressure POC PEEP Peak Inspir Pressure POC Pressure Suppt Pressure Control Pressure High Pressure Low Time High Time Low EPAP IPAP Cancelled Blood Gas Comments Cancelled Cancelled Crit Call To/Read Back Yes Cancelled Blood Gas Notified Whom Blood Gas Notified Time Clinical Comments 07/26/23 07/26/23 07/26/23 13:09 13:09 13:09 Specimen Type Sample Site pH Bicarbonate Actual Total CO2 Base Excess O2 Saturation O2 % ABG pCO2 ABG pO2 Rosa Test Respiration Rate O2 Delivery Device Liter Flow Minute Volume Vent Mode Inspiratory Time Expiratory Time Tidal Volume Mean Airway Pressure POC PEEP Peak Inspir Pressure POC Pressure Suppt Pressure Control Pressure High Pressure Low Time High Time Low EPAP IPAP Blood Gas Comments Crit Call To/Read Back Cancelled Blood Gas Notified Whom DR. RAMIREZ Cancelled Cancelled Blood Gas Notified Time Cancelled Clinical Comments 07/26/23 07/26/23 07/26/23 13:09 13:09 18:12 Specimen Type ART Sample Site R Radial pH 7.34 L Bicarbonate Actual 46.2 H Total CO2 49 Base Excess 20 H O2 Saturation 89 L O2 % 3.0 ABG pCO2 85.9 H* ABG pO2 63 L Rosa Test Positive Respiration Rate O2 Delivery Device Cannula Liter Flow Minute Volume Vent Mode Not entered Inspiratory Time Expiratory Time Tidal Volume Mean Airway Pressure POC PEEP Peak Inspir Pressure POC Pressure Suppt Pressure Control Pressure High Pressure Low Time High Time Low EPAP IPAP Blood Gas Comments Crit Call To/Read Back Yes Blood Gas Notified Whom white Blood Gas Notified Time Cancelled 18:14:28 Clinical Comments Cancelled Cancelled 07/26/23 07/27/23 07/27/23 18:19 11:11 11:18 Specimen Type Cancelled ART ART Sample Site Cancelled L Radial Not entered pH Cancelled 7.40 7.39 Bicarbonate Actual Cancelled 44.3 H 41.3 H Total CO2 Cancelled 47 43 Base Excess Cancelled 20 H 16 H O2 Saturation Cancelled 95 95 O2 % Cancelled 4.0 ABG pCO2 Cancelled 71.4 H* 68.5 H* ABG pO2 Cancelled 79 78 Rosa Test Cancelled Positive Respiration Rate Cancelled O2 Delivery Device Cancelled Cannula Not entered Liter Flow Cancelled Minute Volume Cancelled Vent Mode Cancelled Not entered Not entered Inspiratory Time Cancelled Expiratory Time Cancelled Tidal Volume Cancelled Mean Airway Pressure Cancelled POC PEEP Cancelled Peak Inspir Pressure Cancelled POC Pressure Suppt Cancelled Pressure Control Cancelled Pressure High Cancelled Pressure Low Cancelled Time High Cancelled Time Low Cancelled EPAP Cancelled IPAP Cancelled Blood Gas Comments Cancelled Crit Call To/Read Back Cancelled Yes Yes Blood Gas Notified Whom Cancelled yamilet Blood Gas Notified Time Cancelled 11:13:43 Clinical Comments Cancelled Meaningful Use Info Meaningful Use Meaningful Use Diagnoses (Choose all that apply): None applicable Ischemic Stroke Statin Dosing Therapy Reference: STATIN DOSE THERAPY REFERENCE: * Patients > 75 years receive moderate or high dose statin therapy. * Patients 75 years or YOUNGER should receive HIGH intensity statin dose unless contraindicated. You will be required to document reason for non-treatment if statin daily dose does not meet guidelines. HIGH DOSE STATIN THERAPY DAILY Atorvastatin > than or = to 40 mg Rosuvastatin > than or = to 20 mg Amlodipine + Atorvastatin > than or = to 2.5/40 mg Ezetimibe + Simvastatin 10/80 mg Simvastatin 80mg Discharge Plan Admission Admit Date/Time: 07/26/23 15:43 Primary Reason for Your Visit: Increased confusion Attending Provider: Ahsan Sousa Primary Care Provider: Sepideh Patterson Consulting Providers: Elizabeth Choe Discharge Orders/Prescriptions Prescriptions: Continued losartan 50 mg Tablet 50 mg PO DAILY atorvastatin 20 mg Tablet 20 mg PO QHS sertraline [Zoloft] 100 mg Tablet 100 mg PO QHS Rx Instructions: TAKE ONE 50MG AND ONE 100MG TABLET TOGETHER ONCE DAILY FOR A TOTAL DAILY DOSE OF 150MG. famotidine 20 mg Tablet 20 mg PO QHS amitriptyline 25 mg Tablet 25 mg PO QODAY montelukast 10 mg Tablet 10 mg PO DAILY fluticasone propionate 50 mcg/actuation [place],Suspension 2 spray INTRANASAL BID PRN (Reason: NASAL CONGESTION) omeprazole 20 mg Tablet,Delayed Release (Dr/Ec) 20 mg PO DAILY roflumilast [Daliresp] 500 mcg Tablet 500 mcg PO DAILY dicyclomine 10 mg Capsule 10 mg PO 4X/DAY Qty: 1 0RF albuterol sulfate 90 mcg/actuation Hfa Aerosol Inhaler 2 puff INHALATION Q2H PRN (Reason: SOB) prednisone 10 mg tablet 10 mg PO DAILY cholecalciferol (vitamin D3) 50 mcg (2,000 unit) tablet 50 mcg PO DAILY sertraline 50 mg tablet 50 mg PO DAILY Rx Instructions: TAKE ONE 50MG AND ONE 100MG TABLET TOGETHER ONCE DAILY FOR A TOTAL DAILY DOSEOF 150MG. loperamide [Imodium A-D] 2 mg capsule 2 mg PO Q8H PRN (Reason: DIARRHEA ) albuterol sulfate 0.63 mg/3 mL solution for nebulization 0.63 mg inhalation 4X/DAY PRN (Reason: shortness of breath or wheezing) acetaminophen 650 mg suppository 650 mg AL Q4H PRN (Reason: pain) buspirone 5 mg tablet 5 mg PO BID Fleet Enema 19-7 gram/118 mL enema 118 ml AL DAILY PRN (Reason: constipation) Rx Instructions: USE FOR UP TO 2 EPISODES IF DULCOLAX SUPPOSITORY INEFFECTIVE. CALL PHYSICIAN IF NO BM FOR 4 DAYS guaifenesin [Adult Tussin Chest Congestion] 100 mg/5 mL liquid 200 mg PO Q4H PRN (Reason: cough) furosemide 20 mg tablet 20 mg PO BID loratadine [Allergy Relief (loratadine)] 10 mg tablet 10 mg PO DAILY trazodone 50 mg tablet 50 mg PO QHS ondansetron HCl 4 mg tablet 4 mg PO Q8H PRN (Reason: nausea and vomiting) topiramate 25 mg tablet 25 mg PO DAILY acetaminophen 325 mg Tablet 650 mg PO Q4H PRN (Reason: Fever, pain -01/16) alum-mag hydroxide-simeth [Mag-Al Plus Extra Strength] 400-400-40 mg/5 mL Suspension 30 ml PO Q6H PRN (Reason: Gastric Burning) menthol-zinc oxide [Calmoseptine] 0.44-20.6 % Ointment 1 applic topical 4X/DAY Protocol: *Topical Application Instructions APPLICATION INSTRUCTIONS: apply to affected region Rx Instructions: APPLY TO BUTTOCK 4 TIMES A DAY FOR EXCORIATION Referrals / Follow Up: Sepideh Patterson MD [Primary Care Provider] - Disposition Disposition (needs filled in before D/C Order can be placed): [facility] Acute Care Charges/Coding Visit Charges Inpatient E&M: 77006 Disch Hosp >30min 07/27/23 1301 <Electronically signed by Ahsan Sousa DO> Cosigner Signature (if applicable): CC: Dr. Ahsan Sousa DO; Sepideh Patterson MD~ Signed [facility] Work Phone: [phone] 419-699604-19-2024 Discharge summary Author Ahsan Sousa [facility] July 27, 2023 1:00pm Note Date/Time July 27, 2023 11: 30am [facility] Medical Records Department [address] [place] [address] Instructions for Home/Discharge Instructions 07/27/23 1130 MR#: [id number] Acct: [id number] Name: HE LAUREANO Rep #:[id number] : 1960 62 From: Ahsan Kay earnest DO PCP: Sepideh Patterson MD Status:ADM VANDANA Discharge Instructions Diet Discharge Diet: 2000 Calorie Control Diet Activity Discharge Activity: No Restrictions Weight Bearing Status: Full weight bearing Follow Up Care Test Results: Test results from this visit will be discussed in further detail at your follow- up appointment, if applicable. Discharge Plan Admission Admit Date/Time: 07/26/23 15:43 Primary Reason for Your Visit: Increased confusion Attending Provider: Ahsan Sousa Primary Care Provider: Sepideh Patterson Consulting Providers: Elizabeth Choe Discharge Orders/Prescriptions Prescriptions: Continued losartan 50 mg Tablet 50 mg PO DAILY atorvastatin 20 mg Tablet 20 mg PO QHS sertraline [Zoloft] 100 mg Tablet 100 mg PO QHS Rx Instructions: TAKE ONE 50MG AND ONE 100MG TABLET TOGETHER ONCE DAILY FOR A TOTAL DAILY DOSE OF 150MG. famotidine 20 mg Tablet 20 mg PO QHS amitriptyline 25 mg Tablet 25 mg PO QODAY montelukast 10 mg Tablet 10 mg PO DAILY fluticasone propionate 50 mcg/actuation [place],Suspension 2 spray INTRANASAL BID PRN (Reason: NASAL CONGESTION) omeprazole 20 mg Tablet,Delayed Release (Dr/Ec) 20 mg PO DAILY roflumilast [Daliresp] 500 mcg Tablet 500 mcg PO DAILY dicyclomine 10 mg Capsule 10 mg PO 4X/DAY Qty: 1 0RF albuterol sulfate 90 mcg/actuation Hfa Aerosol Inhaler 2 puff INHALATION Q2H PRN (Reason: SOB) prednisone 10 mg tablet 10 mg PO DAILY cholecalciferol (vitamin D3) 50 mcg (2,000 unit) tablet 50 mcg PO DAILY sertraline 50 mg tablet 50 mg PO DAILY Rx Instructions: TAKE ONE 50MG AND ONE 100MG TABLET TOGETHER ONCE DAILY FOR A TOTAL DAILY DOSE OF 150MG. loperamide [Imodium A-D] 2 mg capsule 2 mg PO Q8H PRN (Reason: DIARRHEA ) albuterol sulfate 0.63 mg/3 mL solution for nebulization 0.63 mg inhalation 4X/DAY PRN (Reason: shortness of breath or wheezing) acetaminophen 650 mg suppository 650 mg AL Q4H PRN (Reason: pain) buspirone 5 mg tablet 5 mg PO BID Fleet Enema 19-7 gram/118 mL enema 118 ml AL DAILY PRN (Reason: constipation) Rx Instructions: USE FOR UP TO 2 EPISODES IF DULCOLAX SUPPOSITORY INEFFECTIVE. CALL PHYSICIAN IF NO BM FOR 4 DAYS guaifenesin [Adult Tussin Chest Congestion] 100 mg/5 mL liquid 200 mg PO Q4H PRN (Reason: cough) furosemide 20 mg tablet 20 mg PO BID loratadine [Allergy Relief (loratadine)] 10 mg tablet 10 mg PO DAILY trazodone 50 mg tablet 50 mg PO QHS ondansetron HCl 4 mg tablet 4 mg PO Q8H PRN (Reason: nausea and vomiting) topiramate 25 mg tablet 25 mg PO DAILY acetaminophen 325 mg Tablet 650 mg PO Q4H PRN (Reason: Fever, pain -01/16) alum-mag hydroxide-simeth [Mag-Al Plus Extra Strength] 400-400-40 mg/5 mL Suspension 30 ml PO Q6H PRN (Reason: Gastric Burning) menthol-zinc oxide [Calmoseptine] 0.44-20.6 % Ointment 1 applic topical 4X/DAY Protocol: *Topical Application Instructions APPLICATION INSTRUCTIONS: apply to affected region Rx Instructions: APPLY TO BUTTOCK 4 TIMES A DAY FOR EXCORIATION Referrals / Follow Up: Sepideh Patterson MD [Primary Care Provider] - Disposition Disposition (needs filled in before D/C Order can be placed): Detention Acute Care 07/27/23 1300<Electronically signed by Ahsan Sousa DO>Ahsan Sousa DO CC: Dr. Elizabeth Choe MD; Sepideh Patterson MD ~ Signed [facility] Work Phone: [phone] 485-693304-18-2024 History and physical note Author Elziabeth Choe [facility] July 26, 2023 7:49pm Note Date/Time July 26, 2023 2:4 8pm [facility] Medical Records Department [address] [place] [address] H&P Exam - Hospitalist 07/26/23 1448 MR#: [id number] Acct: [id number] Name: HE LAUREANO Rep #:[id number] : 1960 62 From: Elizabeth Choe MD PCP: Sepideh Patterson MD Status:ADM VANDANA Location: [place] [address] HPI - General General Date of Admission: 07/26/23 Date of Service: 07/26/23 Chief Complaint: Refusing PAP therapy at night, increased confusion HPI Narrative The patient is a 62 y/o F w/ PMHx: Morbid Obesity, COPD w/ Chronic Hypoxic Respiratory Failure (3-4L NC), Anxiety and Depression, HFrEF, MARISOL on BIPAP q HS,GERD w/ Hx peptic ulcer disease, Hx TIA, Allergic rhintis, Chronic pain Syndrome, Former tobacco use who presents to the [facility] ED on 07/26/23 with history of significant increase CO2 on BMP recently refusing to wear CPAP with intermittent episodes of confusion and lethargy as well as recent bouts of loosestools and nausea and emesis on day of presentation prompting eventual ED evaluation. Workup in the ED included T97.9, heart rate 92, BP 143/119, respiratory rate 14, initially 90% on 4 L nasal cannula with most previous oxygenation noted 04/20/2498% on 3 L at that time with most recent vital signs T97.4, heart rate 85, BP 136/79, respiratory rate 21, 95% on BiPAP with FiO2 40%, CBC with WBC 11.4, hemoglobin 10.3, MCV 92.9, platelet 231 with left shift,ABG with pH 7.3, bicarb 46.3, base excess 20, O2 saturation 83%, pO2 93.3, pO2 57 initially performed on 3 L nasal cannula, BMP with chloride 95, CO2 greater than 45, BUN/creatinine 22/0.67, glucose 133, BNP 26.1. Upon evaluation patienthad been on BiPAP for some time and was answering questions completely appropriately and orientation appeared to be now at baseline. [facility] Medical History Anemia Anxiety Chronic anemia Chronic pain Chronic respiratory failure with hypoxia COPD (chronic obstructive pulmonary disease) Depression Fibromyalgia GERD (gastroesophageal reflux disease) HFrEF (heart failure with reduced ejection fraction) HTN (hypertension) Hyperlipidemia Morbid obesity Obesity hypoventilation syndrome MARISOL (obstructive sleep apnea) Peptic ulcer disease Personal history of transient ischemic attack (TIA), and cerebral infarction without residual deficits Seasonal allergies TIA (transient ischemic attack) UTI (urinary tract infection) Vitamin D deficiency Home Medications amitriptyline 25 mg tablet 25 mg PO QODAY DEPRESSION 05/03/22 [History Last Taken 04/15/23] atorvastatin 20 mg tablet 20 mg PO QHS CHOLESTEROL 05/03/22 [History Last Taken 04/15/23] famotidine 20 mg tablet 20 mg PO QHS GERD 05/03/22 [History Last Taken 04/15/23] fluticasone propionate 50 mcg/actuation nasal spray,suspension 2 spray intranasal BID PRN NASAL CONGESTION 05/03/22 [History Last Taken 05/28/22] losartan 50 mg tablet 50 mg PO DAILY BLOOD PRESSURE 05/03/22 [History Last Taken 04/16/23] montelukast 10 mg tablet 10 mg PO DAILY ALLERGIES 05/03/22 [History Last Taken 04/16/23] omeprazole 20 mg tablet,delayed release 20 mg PO DAILY GERD 05/03/22 [History Last Taken 04/16/23] roflumilast 500 mcg tablet (Daliresp) 500 mcg PO DAILY ASTHMA 05/03/22 [History Last Taken 04/16/23] sertraline 100 mg tablet (Zoloft) 100 mg PO QHS DEPRESSION 05/03/22 [History Last Taken 04/16/23] dicyclomine 10 mg capsule 10 mg PO 4X/DAY IRRITABLE BOWELS #1 cap 05/05/22 [Rx Last Taken 04/16/23] albuterol sulfate 90 mcg/actuation aerosol inhaler 2 puff inhalation Q2H PRN SOB09/08/22 [History Last Taken 04/12/23] cholecalciferol (vitamin D3) 50 mcg (2,000 unit) tablet 50 mcg PO DAILY SUPPLEMENT 04/16/23 [History Last Taken 04/16/23] loperamide 2 mg capsule (Imodium A-D) 2 mg PO Q8H PRN DIARRHEA 04/16/23 [History Last Taken 04/09/23] prednisone 10 mg tablet 10 mg PO DAILY COPD 04/16/23 [History Last Taken 04/16/23] sertraline 50 mg tablet 50 mg PO DAILY DEPRESSION 04/16/23 [History Last Taken 04/16/23] acetaminophen 325 mg tablet 650 mg PO Q4H PRN Fever, pain 1-01/1607/26/23 [History Last Taken Unknown] acetaminophen 650 mg rectal suppository 650 mg AL Q4H PRN pain 07/26/23 [History Last Taken Unknown] albuterol sulfate 0.63 mg/3 mL solution for nebulization 0.63 mg inhalation 4X/DAY PRN shortness of breath or wheezing 07/26/23 [History Last Taken Unknown] aluminum-mag hydroxide-simethicone 400 mg-400 mg-40 mg/5 mL oral susp (Mag-Al Plus Extra Strength) 30 ml PO Q6H PRN Gastric Burning 07/26/23 [History Last Taken Unknown] buspirone 5 mg tablet 5 mg PO BID 07/26/23 [History Last Taken Unknown] furosemide 20 mg tablet 20 mg PO BID 07/26/23 [History Last Taken Unknown] guaifenesin 100 mg/5 mL oral liquid (Adult Tussin Chest Congestion) 200 mg PO Q4H PRN cough 07/26/23 [History Last Taken Unknown] loratadine 10 mg tablet (Allergy Relief (loratadine)) 10 mg PO DAILY 07/26/23 [History Last Taken Unknown] menthol 0.44 %-zinc oxide 20.6 % topical ointment (Calmoseptine) 1 applic topical 4X/DAY 07/26/23 [History Last Taken Unknown] ondansetron HCl 4 mg tablet 4 mg PO Q8H PRN nausea and vomiting 07/26/23 [History Last Taken Unknown] sodium phosphates 19 gram-7 gram/118 mL enema (Fleet Enema) 118 ml AL DAILY PRN constipation 07/26/23 [History Last Taken Unknown] topiramate 25 mg tablet 25 mg PO DAILY 07/26/23 [History Last Taken Unknown] trazodone 50 mg tablet 50 mg PO QHS 07/26/23 [History Last Taken Unknown] Allergy/AdvReac Type Severity Reaction Status Date / Time aspirin Allergy Other Verified 07/26/23 13:33 black pepper [pepper] Allergy Other Verified 07/26/23 13:33 coconut Allergy Other Verified 07/26/23 13:33 codeine Allergy Other Verified 07/26/23 13:33 ibuprofen Allergy Other Verified 07/26/23 13:33 Influenza Virus Vaccines Allergy Other Verified 07/26/23 13:33 Penicillins Allergy Anaphylaxis Verified 07/26/23 13:33 rice Allergy Other Verified 07/26/23 13:33 tetanus and diphtheria Allergy Other Verified 07/26/23 13:33 toxoids Tetanus Vaccines and Toxoid Allergy Other Verified 07/26/23 13:33 Family History Mother CAD (coronary artery disease) COPD (chronic obstructive pulmonary disease) Hypertension Heart disease Father CAD (coronary artery disease) COPD (chronic obstructive pulmonary disease) Hypertension Heart disease Surgical History History of ankle surgery Social History housing: assisted Smoking Status: Former smoker alcohol intake: never substance use type: does not use ROS ROS Narrative Admission Review of Systems: CONSTITUTIONAL: No weight loss, fever, chills, + weakness or fatigue. HEENT: Eyes: No visual loss, blurred vision, double vision or yellow sclerae. Ears, Nose, Throat: No hearing loss, sneezing, congestion, runny nose or sore throat. SKIN: No rash or itching, lesions, wounds except for + bilateral lower extremity chronic venous stasis skin changes, occasional abrasion. CARDIOVASCULAR: + Chronic lymphedema. No chest pain, chest pressure or chest discomfort, palpitations, orthopnea, syncopal events. RESPIRATORY: + Chronic issues with dyspnea, occasional wheezing. No current marked cough or hemoptysis. GASTROINTESTINAL: No anorexia, nausea, vomiting or diarrhea, abdominal pain, melena, BRBPR. GENITOURINARY: No dysuria, frequency, urgency or retention. NEUROLOGICAL: + Acute encephalopathy suspected secondary to hypercapnia. No headache, dizziness, syncope, paralysis, ataxia, numbness or tingling in the extremities, focal weakness, change in bowel or bladder control, seizure. MUSCULOSKELETAL: + muscle, back pain, joint pain or stiffness. HEMATOLOGIC: + Chronic anemia, no marked easy bleeding/bruising history. LYMPHATICS: No enlarged nodes. No history of splenectomy. PSYCHIATRIC: + History of anxiety and depression. ENDOCRINOLOGIC: No reports of sweating, cold or heat intolerance. No polyuria or polydipsia. ALLERGIES: + History of allergic rhinitis. Vital Signs Vital Signs Vital Signs: 07/26/23 11:59 07/26/23 11:58 07/26/23 12:35 Temperature 97.9 F Temperature Source Oral Pulse Rate 92 Respiratory Rate 14 Respiratory Effort Normal Respiratory Pattern Normal Blood Pressure 143/119 H Blood Pressure Mean 127 Pulse Ox 90 Oxygen Delivery Method Nasal Cannula Nasal Cannula Oxygen Flow Rate (L/min) 4 3 Fraction of Inspired Oxygen (FIO2) 07/26/23 12:54 07/26/23 13:35 07/26/23 13:48 Temperature Temperature Source Pulse Rate 95 95 90 Respiratory Rate 20 H 19 H 21 H Respiratory Effort Respiratory Pattern Blood Pressure 107/85 H 134/75 H Blood Pressure Mean 92 94 Pulse Ox 94 91 93 Oxygen Delivery Method Nasal Cannula Bi-pap Oxygen Flow Rate (L/min) 3 Fraction of Inspired Oxygen (FIO2) 40 07/26/23 13:31 07/26/23 14:46 Temperature 97.4 F L Temperature Source Pulse Rate 93 85 Respiratory Rate 24 H 18 Respiratory Effort Respiratory Pattern Blood Pressure 123/83 H Blood Pressure Mean 96 Pulse Ox 92 96 Oxygen Delivery Method Oxygen Flow Rate (L/min) Fraction of Inspired Oxygen (FIO2) 40 Weight Weight: 356 lb 14.854 oz Body Mass Index (BMI) 57.6 Physical Exam Narrative Physical Examination: General: Awake, alert, oriented x 3 including to self, place, month, mental status appears to have returned to baseline, currently still on BiPAP, remains cooperative, laying on her side in the ED bed, no acute distress. Skin: Normal color, normal turgor, no icterus, no cyanosis except for occasional staged ecchymoses, intertrigo. HEENT: AT/NC, EOMI, PERRLA, mildly dry MM, BiPAP in place, unable to discern carotid bruit well given deferred sounds, difficult to discern JVD given thick and neck. Lungs: Significantly diminished, distant breath sounds, BiPAP in place, appropriate effort, no rales, ronchi or wheezing. Heart: Regular rate and rhythm; no gallop, rub audible. Abdomen: Soft, morbidly obese, NTTP, distant normal BS, difficult to discern distention and HSM given habitus. Extremities: No cyanosis, no clubbing, bilateral lower extremity chronic lymphedema. Neurological: Patient awake, alert, oriented as noted, cognitive function intact; pupils equally reactive to light and accommodation, cranial nerves grossly normal, moving all 4 extremities, no focal deficits, strength moderately to severely global decreased but improving. Psychiatric: Affect appears mildly fatigued but improving, normal, no acute evidence of depressive or anxiety feelings but does have underlying history. Results Lab / Micro Data 07/26/23 12:45 07/26/23 12:45 Labs: Laboratory Results - last 24 hr 07/26/23 12:45: WBC 11.4 H, RBC 3.96 L, Hgb 10.3 L, Hct 36.8 L, MCV 92.9, MCH 26.0 L, MCHC 28.0 L, RDW Std Deviation 45.0 H, RDW Coeff of David 13.2, Plt Count 231, MPV 11.7, Immature Gran % (Auto) 0.600, Neut % (Auto) 76.2 H, Lymph % (Auto) 14.3 L, Nobles % (Auto) 7.7, Eos % (Auto) 0.9, Baso % (Auto) 0.3, Absolute Neuts (auto) 8.7 H, Absolute Lymphs (auto) 1.63, Nucleated RBC % 0, Sodium 141, Potassium 4.4, Chloride 95 L, Carbon Dioxide > 45.0 H*, Anion Gap TNP, BUN 22 H, Creatinine 0.67, Est GFR (MDRD) Af Amer 114, Est GFR (MDRD) Non-Af 95, BUN/Creatinine Ratio 32.7 H, Glucose 133 H, Calcium 10.7 H, B-Natriuretic Peptide 26.1 ABG Data ABG results: ABG 07/26/23 07/26/23 07/26/23 13:09 13:09 13:09 Specimen Type ART Cancelled Cancelled Sample Site R RADIAL pH Bicarbonate Actual Total CO2 Base Excess O2 Saturation O2 % ABG pCO2 ABG pO2 Rosa Test Respiration Rate O2 Delivery Device Liter Flow Minute Volume Vent Mode Inspiratory Time Expiratory Time Tidal Volume Mean Airway Pressure POC PEEP Peak Inspir Pressure POC Pressure Suppt Pressure Control Pressure High Pressure Low Time High Time Low EPAP IPAP Blood Gas Comments Crit Call To/Read Back Blood Gas Notified Whom Blood Gas Notified Time Clinical Comments 07/26/23 07/26/23 07/26/23 13:09 13:09 13:09 Specimen Type Sample Site Cancelled Cancelled pH 7.30 L Cancelled Bicarbonate Actual Total CO2 Base Excess O2 Saturation O2 % ABG pCO2 ABG pO2 Rosa Test Respiration Rate O2 Delivery Device Liter Flow Minute Volume Vent Mode Inspiratory Time Expiratory Time Tidal Volume Mean Airway Pressure POC PEEP Peak Inspir Pressure POC Pressure Suppt Pressure Control Pressure High Pressure Low Time High Time Low EPAP IPAP Blood Gas Comments Crit Call To/Read Back Blood Gas Notified Whom Blood Gas Notified Time Clinical Comments 07/26/23 07/26/23 07/26/23 13:09 13:09 13:09 Specimen Type Sample Site pH Cancelled Bicarbonate Actual 46.3 H Cancelled Cancelled Total CO2 49 Base Excess O2 Saturation O2 % ABG pCO2 ABG pO2 Orsa Test Respiration Rate O2 Delivery Device Liter Flow Minute Volume Vent Mode Inspiratory Time Expiratory Time Tidal Volume Mean Airway Pressure POC PEEP Peak Inspir Pressure POC Pressure Suppt Pressure Control Pressure High Pressure Low Time High Time Low EPAP IPAP Blood Gas Comments Crit Call To/Read Back Blood Gas Notified Whom Blood Gas Notified Time Clinical Comments 07/26/23 07/26/23 07/26/23 13:09 13:09 13:09 Specimen Type Sample Site pH Bicarbonate Actual Total CO2 Cancelled Cancelled Base Excess 20 H Cancelled O2 Saturation O2 % ABG pCO2 ABG pO2 Rosa Test Respiration Rate O2 Delivery Device Liter Flow Minute Volume Vent Mode Inspiratory Time Expiratory Time Tidal Volume Mean Airway Pressure POC PEEP Peak Inspir Pressure POC Pressure Suppt Pressure Control Pressure High Pressure Low Time High Time Low EPAP IPAP Blood Gas Comments Crit Call To/Read Back Blood Gas Notified Whom Blood Gas Notified Time Clinical Comments 07/26/23 07/26/23 07/26/23 13:09 13:09 13:09 Specimen Type Sample Site pH Bicarbonate Actual Total CO2 Base Excess Cancelled O2 Saturation 83 L Cancelled Cancelled O2 % Cancelled ABG pCO2 ABG pO2 Rosa Test Respiration Rate O2 Delivery Device Liter Flow Minute Volume Vent Mode Inspiratory Time Expiratory Time Tidal Volume Mean Airway Pressure POC PEEP Peak Inspir Pressure POC Pressure Suppt Pressure Control Pressure High Pressure Low Time High Time Low EPAP IPAP Blood Gas Comments Crit Call To/Read Back Blood Gas Notified Whom Blood Gas Notified Time Clinical Comments 07/26/23 07/26/23 07/26/23 13:09 13:09 13:09 Specimen Type Sample Site pH Bicarbonate Actual Total CO2 Base Excess O2 Saturation O2 % Cancelled ABG pCO2 93.3 H* Cancelled Cancelled ABG pO2 57 L Rosa Test Respiration Rate O2 Delivery Device Liter Flow Minute Volume Vent Mode Inspiratory Time Expiratory Time Tidal Volume Mean Airway Pressure POC PEEP Peak Inspir Pressure POC Pressure Suppt Pressure Control Pressure High Pressure Low Time High Time Low EPAP IPAP Blood Gas Comments Crit Call To/Read Back Blood Gas Notified Whom Blood Gas Notified Time Clinical Comments 07/26/23 07/26/23 07/26/23 13:09 13:09 13:09 Specimen Type Sample Site pH Bicarbonate Actual Total CO2 Base Excess O2 Saturation O2 % ABG pCO2 ABG pO2 Cancelled Cancelled Rosa Test POS Cancelled Respiration Rate O2 Delivery Device Liter Flow Minute Volume Vent Mode Inspiratory Time Expiratory Time Tidal Volume Mean Airway Pressure POC PEEP Peak Inspir Pressure POC Pressure Suppt Pressure Control Pressure High Pressure Low Time High Time Low EPAP IPAP Blood Gas Comments Crit Call To/Read Back Blood Gas Notified Whom Blood Gas Notified Time Clinical Comments 07/26/23 07/26/23 07/26/23 13:09 13:09 13:09 Specimen Type Sample Site pH Bicarbonate Actual Total CO2 Base Excess O2 Saturation O2 % ABG pCO2 ABG pO2 Rosa Test Cancelled Respiration Rate Cancelled Cancelled O2 Delivery Device CANNULA Cancelled Liter Flow Minute Volume Vent Mode Inspiratory Time Expiratory Time Tidal Volume Mean Airway Pressure POC PEEP Peak Inspir Pressure POC Pressure Suppt Pressure Control Pressure High Pressure Low Time High Time Low EPAP IPAP Blood Gas Comments Crit Call To/Read Back Blood Gas Notified Whom Blood Gas Notified Time Clinical Comments 07/26/23 07/26/23 07/26/23 13:09 13:09 13:09 Specimen Type Sample Site pH Bicarbonate Actual Total CO2 Base Excess O2 Saturation O2 % ABG pCO2 ABG pO2 Rosa Test Respiration Rate O2 Delivery Device Cancelled Liter Flow 3.0 Cancelled Cancelled Minute Volume Cancelled Vent Mode Inspiratory Time Expiratory Time Tidal Volume Mean Airway Pressure POC PEEP Peak Inspir Pressure POC Pressure Suppt Pressure Control Pressure High Pressure Low Time High Time Low EPAP IPAP Blood Gas Comments Crit Call To/Read Back Blood Gas Notified Whom Blood Gas Notified Time Clinical Comments 07/26/23 07/26/23 07/26/23 13:09 13:09 13:09 Specimen Type Sample Site pH Bicarbonate Actual Total CO2 Base Excess O2 Saturation O2 % ABG pCO2 ABG pO2 Rosa Test Respiration Rate O2 Delivery Device Liter Flow Minute Volume Cancelled Vent Mode Cancelled Cancelled Inspiratory Time Cancelled Cancelled Expiratory Time Cancelled Tidal Volume Mean Airway Pressure POC PEEP Peak Inspir Pressure POC Pressure Suppt Pressure Control Pressure High Pressure Low Time High Time Low EPAP IPAP Blood Gas Comments Crit Call To/Read Back Blood Gas Notified Whom Blood Gas Notified Time Clinical Comments 07/26/23 07/26/23 07/26/23 13:09 13:09 13:09 Specimen Type Sample Site pH Bicarbonate Actual Total CO2 Base Excess O2 Saturation O2 % ABG pCO2 ABG pO2 Rosa Test Respiration Rate O2 Delivery Device Liter Flow Minute Volume Vent Mode Inspiratory Time Expiratory Time Cancelled Tidal Volume Cancelled Cancelled Mean Airway Pressure Cancelled Cancelled POC PEEP Cancelled Peak Inspir Pressure POC Pressure Suppt Pressure Control Pressure High Pressure Low Time High Time Low EPAP IPAP Blood Gas Comments Crit Call To/Read Back Blood Gas Notified Whom Blood Gas Notified Time Clinical Comments 07/26/23 07/26/23 07/26/23 13:09 13:09 13:09 Specimen Type Sample Site pH Bicarbonate Actual Total CO2 Base Excess O2 Saturation O2 % ABG pCO2 ABG pO2 Rosa Test Respiration Rate O2 Delivery Device Liter Flow Minute Volume Vent Mode Inspiratory Time Expiratory Time Tidal Volume Mean Airway Pressure POC PEEP Cancelled Peak Inspir Pressure Cancelled Cancelled POC Pressure Suppt Cancelled Cancelled Pressure Control Cancelled Pressure High Pressure Low Time High Time Low EPAP IPAP Blood Gas Comments Crit Call To/Read Back Blood Gas Notified Whom Blood Gas Notified Time Clinical Comments 07/26/23 07/26/23 07/26/23 13:09 13:09 13:09 Specimen Type Sample Site pH Bicarbonate Actual Total CO2 Base Excess O2 Saturation O2 % ABG pCO2 ABG pO2 Orsa Test Respiration Rate O2 Delivery Device Liter Flow Minute Volume Vent Mode Inspiratory Time Expiratory Time Tidal Volume Mean Airway Pressure POC PEEP Peak Inspir Pressure POC Pressure Suppt Pressure Control Cancelled Pressure High Cancelled Cancelled Pressure Low Cancelled Cancelled Time High Cancelled Time Low EPAP IPAP Blood Gas Comments Crit Call To/Read Back Blood Gas Notified Whom Blood Gas Notified Time Clinical Comments 07/26/23 07/26/23 07/26/23 13:09 13:09 13:09 Specimen Type Sample Site pH Bicarbonate Actual Total CO2 Base Excess O2 Saturation O2 % ABG pCO2 ABG pO2 Rosa Test Respiration Rate O2 Delivery Device Liter Flow Minute Volume Vent Mode Inspiratory Time Expiratory Time Tidal Volume Mean Airway Pressure POC PEEP Peak Inspir Pressure POC Pressure Suppt Pressure Control Pressure High Pressure Low Time High Cancelled Time Low Cancelled Cancelled EPAP Cancelled Cancelled IPAP Cancelled Blood Gas Comments Crit Call To/Read Back Blood Gas Notified Whom Blood Gas Notified Time Clinical Comments 07/26/23 07/26/23 07/26/23 13:09 13:09 13:09 Specimen Type Sample Site pH Bicarbonate Actual Total CO2 Base Excess O2 Saturation O2 % ABG pCO2 ABG pO2 Rosa Test Respiration Rate O2 Delivery Device Liter Flow Minute Volume Vent Mode Inspiratory Time Expiratory Time Tidal Volume Mean Airway Pressure POC PEEP Peak Inspir Pressure POC Pressure Suppt Pressure Control Pressure High Pressure Low Time High Time Low EPAP IPAP Cancelled Blood Gas Comments Cancelled Cancelled Crit Call To/Read Back Yes Cancelled Blood Gas Notified Whom Blood Gas Notified Time Clinical Comments 07/26/23 07/26/23 07/26/23 13:09 13:09 13:09 Specimen Type Sample Site pH Bicarbonate Actual Total CO2 Base Excess O2 Saturation O2 % ABG pCO2 ABG pO2 Rosa Test Respiration Rate O2 Delivery Device Liter Flow Minute Volume Vent Mode Inspiratory Time Expiratory Time Tidal Volume Mean Airway Pressure POC PEEP Peak Inspir Pressure POC Pressure Suppt Pressure Control Pressure High Pressure Low Time High Time Low EPAP IPAP Blood Gas Comments Crit Call To/Read Back Cancelled Blood Gas Notified Whom DR. RAMIREZ Cancelled Cancelled Blood Gas Notified Time Cancelled Clinical Comments 07/26/23 07/26/23 13:09 13:09 Specimen Type Sample Site pH Bicarbonate Actual Total CO2 Base Excess O2 Saturation O2 % ABG pCO2 ABG pO2 Rosa Test Respiration Rate O2 Delivery Device Liter Flow Minute Volume Vent Mode Inspiratory Time Expiratory Time Tidal Volume Mean Airway Pressure POC PEEP Peak Inspir Pressure POC Pressure Suppt Pressure Control Pressure High Pressure Low Time High Time Low EPAP IPAP Blood Gas Comments Crit Call To/Read Back Blood Gas Notified Whom Blood Gas Notified Time Cancelled Clinical Comments Cancelled Cancelled Assessment & Plan Assessment/Plan (1) Encephalopathy acute: PLAN: Plan The patient is a 62 y/o F w/ PMHx: Morbid Obesity, COPD w/ Chronic Hypoxic Respiratory Failure (3-4L NC), Anxiety and Depression, HFrEF, MARISOL on BIPAP q HS, GERD w/ Hx peptic ulcer disease, Hx TIA, Allergic rhintis, Chronic pain Syndrome, Former tobacco use who presents to the [facility] ED on 07/26/23 with history of significant increase CO2 on BMP recently refusing to wear CPAP with intermittent episodes of confusion and lethargy as well as recent bouts of loose stools and nausea and emesis on day of presentation prompting eventual ED evaluation. #1. Acute encephalopathy suspected secondary to acute on chronic hypercapnia secondary to noncompliance with PAP therapy with underlying COPD with chronic hypoxic respiratory failure: In the ED patient placed on BiPAP therapy, will admit following to PCU, maintain on monitor, continue BiPAP with home settings and plan repeat ABG in 1 to 2 hours following initial onset, discussed at length with patient that it is important to be compliant otherwise this will recur, expect improvement and likely discharged back to facility 07/27/2023. #2. N/V/D, Questionable Gastroenteritis: Will continue judicious hydration, will obtain c diff, stool cx, no evidence of any diarrhea or nausea/emesis in the ED but if onset then may need to rethink usage of BiPAP given aspiration risks with this. Possibly could be viral gastroenteritis. If enteric and C. difficile are negative but diarrhea does occur then may start antidiarrheal regimen at that time. #3. Chronic normocytic anemia: Admission hemoglobin 10.3, MCV 92.9, baseline hemoglobin 9-10, stable, continue to trend. #4. COPD w/ Chronic Hypoxic Respiratory Failure (3-4L NC): Once ABG is appropriate will transition back to home oxygen supplementation, continue ATC duonebs, PRN albuterol, HOB, IS parameters. Will continue chronic low-dose prednisone therapy. #5. Anxiety and Depression: We will continue patient home BuSpar, sertraline, amitriptyline home regimen. #6. HFrEF: 05/05/2022 echocardiogram with EF 55 to 60%, very difficult visualization, normal LV wall motion and LV systolic function. Will judiciously hydrate if necessary, will continue low-dose aspirin, statin, losartan, does not appear to be on beta-rome therapy or diuretic. #7. GERD w/ Hx peptic ulcer disease: We will continue patient home PPI. #8. Hx TIA: Will continue baby aspirin, statin, hypertensive regimen as noted. #9. Allergic rhintis: We will continue patient home fluticasone, loratadine and montelukast home regimen. #10. Hyperlipidemia: We will continue patient on statin therapy. #11. Chronic pain Syndrome: Per current list does not appear to be any chronic pain regimen, encourage offloading, frequent positional changes, PT/OT consulted. #12. Former tobacco use: Encourage continued tobacco cessation. #13. Morbid Obesity: Weight loss and lifestyle changes encouraged. #14. MARISOL: As noted we will continue BiPAP nightly. #15. DVT prophylaxis: Lovenox. #16. CODE STATUS: Per facility paperwork full code. Charges/Coding Visit Charges Inpatient E&M: 11098 Init Hosp L2 07/26/231948 <Electronically signed by Elizabeth Choe MD> Cosigner Signature (if applicable): CC: Dr. Elizabeth Choe MD; Sepideh Patterson MD~ Signed [facility] Work Phone: [phone] Discharge summary Author Berenice Ramirez [facility] July 26, 2023 6:25pm Note Date/Time July 26, 2023 1:4 3pm [facility] Medical Records Department [address] [place] [id number] Emergency Department Summary 07/26/23 MR#: [id number] Acct: [id number] Name: HE LAUREANO Rep #:[id number] : 1960 62 From: Berenice Ramirez MD PCP: Sepideh Patterson MD Status:ADM VANDANA Location: [address] <Marichuy Brown RN - Last Filed: 07/26/23 14:57> History of Present Illness Chief Complaint: Abn Labs Informant: patient Onset/Context/Timing Onset: Today Timing: Continuous Narrative Narrative: Patient is a 62-year-old female with past medical history significant for obesity, chronic respiratory failure, obstructive sleep apnea on CPAP, GERD, heart failure, hypertension, obesity hypoventilation syndrome, TIA and UTI who presents to the ED from assisted for abnormal lab work, specifically increased CO2 greater than 45. Per review report from nursing staff, patient has not been wearing her CPAP and has intermittent episodes of confusion and lethargy. Patient reports her CPAP is broken. She also reports diarrhea x 2 weeks with an emesis today. She denies chest pain, palpitations, shortness of breath. She denies current nausea. She denies recent hospitalizations and recent travel. She denies fever and chills. 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 deficits Seasonal allergies TIA (transient ischemic attack) UTI (urinary tract infection) Vitamin D deficiency Home Medications amitriptyline 25 mg tablet 25 mg PO QODAY DEPRESSION 05/03/22 [History Last Taken 04/15/23] atorvastatin 20 mg tablet 20 mg PO QHS CHOLESTEROL 05/03/22 [History Last Taken 04/15/23] famotidine 20 mg tablet 20 mg PO QHS GERD 05/03/22 [History Last Taken 04/15/23] fluticasone propionate 50 mcg/actuation nasal spray,suspension 2 spray intranasal BID PRN NASAL CONGESTION 05/03/22 [History Last Taken 05/28/22] losartan 50 mg tablet 50 mg PO DAILY BLOOD PRESSURE 05/03/22 [History Last Taken 04/16/23] montelukast 10 mg tablet 10 mg PO DAILY ALLERGIES 05/03/22 [History Last Taken 04/16/23] omeprazole 20 mg tablet,delayed release 20 mg PO DAILY GERD 05/03/22 [History Last Taken 04/16/23] roflumilast 500 mcg tablet (Daliresp) 500 mcg PO DAILY ASTHMA 05/03/22 [History Last Taken 04/16/23] sertraline 100 mg tablet (Zoloft) 100 mg PO QHS DEPRESSION 05/03/22 [History Last Taken 04/16/23] dicyclomine 10 mg capsule 10 mg PO 4X/DAY IRRITABLE BOWELS #1 cap 05/05/22 [Rx Last Taken 04/16/23] albuterol sulfate 90 mcg/actuation aerosol inhaler 2 puff inhalation Q2H PRN SOB09/08/22 [History Last Taken 04/12/23] cholecalciferol (vitamin D3) 50 mcg (2,000 unit) tablet 50 mcg PO DAILY SUPPLEMENT 04/16/23 [History Last Taken 04/16/23] loperamide 2 mg capsule (Imodium A-D) 2 mg PO Q8H PRN DIARRHEA 04/16/23 [History Last Taken 04/09/23] prednisone 10 mg tablet 10 mg PO DAILY COPD 04/16/23 [History Last Taken 04/16/23] sertraline 50 mg tablet 50 mg PO DAILY DEPRESSION 04/16/23 [History Last Taken 04/16/23] acetaminophen 325 mg tablet 650 mg PO Q4H PRN Fever, pain 1-01/1607/26/23 [History Last Taken Unknown] acetaminophen 650 mg rectal suppository 650 mg AL Q4H PRN pain 07/26/23 [History Last Taken Unknown] albuterol sulfate 0.63 mg/3 mL solution for nebulization 0.63 mg inhalation 4X/DAY PRN shortness of breath or wheezing 07/26/23 [History Last Taken Unknown] aluminum-mag hydroxide-simethicone 400 mg-400 mg-40 mg/5 mL oral susp (Mag-Al Plus Extra Strength) 30 ml PO Q6H PRN Gastric Burning 07/26/23 [History Last Taken Unknown] buspirone 5 mg tablet 5 mg PO BID 07/26/23 [History Last Taken Unknown] furosemide 20 mg tablet 20 mg PO BID 07/26/23 [History Last Taken Unknown] guaifenesin 100 mg/5 mL oral liquid (Adult Tussin Chest Congestion) 200 mg PO Q4H PRN cough 07/26/23 [History Last Taken Unknown] loratadine 10 mg tablet (Allergy Relief (loratadine)) 10 mg PO DAILY 07/26/23 [History Last Taken Unknown] menthol 0.44 %-zinc oxide 20.6 % topical ointment (Calmoseptine) 1 applic topical 4X/DAY 07/26/23 [History Last Taken Unknown] ondansetron HCl 4 mg tablet 4 mg PO Q8H PRN nausea and vomiting 07/26/23 [History Last Taken Unknown] sodium phosphates 19 gram-7 gram/118 mL enema (Fleet Enema) 118 ml AL DAILY PRN constipation 07/26/23 [History Last Taken Unknown] topiramate 25 mg tablet 25 mg PO DAILY 07/26/23 [History Last Taken Unknown] trazodone 50 mg tablet 50 mg PO QHS 07/26/23 [History Last Taken Unknown] Allergy/AdvReac Type Severity Reaction Status Date / Time aspirin Allergy Other Verified 07/26/23 13:33 black pepper [pepper] Allergy Other Verified 07/26/23 13:33 coconut Allergy Other Verified 07/26/23 13:33 codeine Allergy Other Verified 07/26/23 13:33 ibuprofen Allergy Other Verified 07/26/23 13:33 Influenza Virus Vaccines Allergy Other Verified 07/26/23 13:33 Penicillins Allergy Anaphylaxis Verified 07/26/23 13:33 rice Allergy Other Verified 07/26/23 13:33 tetanus and diphtheria Allergy Other Verified 07/26/23 13:33 toxoids Tetanus Vaccines and Toxoid Allergy Other Verified 07/26/23 13:33 Family History Mother CAD (coronary artery disease) COPD (chronic obstructive pulmonary disease) Hypertension Heart disease Father CAD (coronary artery disease) COPD (chronic obstructive pulmonary disease) Hypertension Heart disease Surgical History History of ankle surgery Social History housing: assisted Smoking Status: Former smoker alcohol intake: never substance use type: does not use ROS <Marichuy Brown RN - Last Filed: 07/26/23 14:57> ROS ED Constitutional Constitutional ED: Denies chills, fever(s) or sweats Eyes Eyes: Denies blurry vision or change in vision ENT ENT ED: Denies ear pain, rhinorrhea or sore throat Cardiovascular Cardiovascular: Denies chest pain, orthopnea, palpitations or racing heartbeat Respiratory/Chest Respiratory/Chest: Denies cough, dyspnea or orthopnea Gastrointestinal Gastrointestinal: Reports abdominal pain, diarrhea, vomiting and other Details: Diarrhea x 2 weeks. Left lower quadrant pain. Emesis x 1 today. ; Denies constipation, melena or nausea Genitourinary Genitourinary ED: Denies dysuria, hematuria or urinary frequency Musculoskeletal Musculoskeletal: Denies arthralgias, back pain, myalgias or neck pain Integumentary Denies rash Neurologic Neurologic: Reports weakness and other Details: Generalized weakness ; Denies headache(s) or paresthesias EXAM <Marichuy Brown RN - Last Filed: 07/26/23 14:57> Physical Exam Narrative Exam Narrative: Patient drowsy. Awakens easily and interacts during assessment. Const Vital Signs: 07/26/23 11:59 07/26/23 11:58 07/26/23 12:35 Temperature 97.9 F Temperature Source Oral Pulse Rate 92 Respiratory Rate 14 Respiratory Effort Normal Respiratory Pattern Normal Blood Pressure 143/119 H Blood Pressure Mean 127 Pulse Ox 90 Oxygen Delivery Method Nasal Cannula Nasal Cannula Oxygen Flow Rate (L/min) 4 3 Fraction of Inspired Oxygen (FIO2) 07/26/23 12:54 07/26/23 13:35 07/26/23 13:48 Temperature Temperature Source Pulse Rate 95 95 90 Respiratory Rate 20 H 19 H 21 H Respiratory Effort Respiratory Pattern Blood Pressure 107/85 H 134/75 H Blood Pressure Mean 92 94 Pulse Ox 94 91 93 Oxygen Delivery Method Nasal Cannula Bi-pap Oxygen Flow Rate (L/min) 3 Fraction of Inspired Oxygen (FIO2) 40 07/26/23 13:31 07/26/23 14:46 07/26/23 15:04 Temperature 97.4 F L 97.4 F L Temperature Source Temporal Pulse Rate 93 85 85 Respiratory Rate 24 H 18 21 H Respiratory Effort Respiratory Pattern Blood Pressure 123/83 H 136/79 H Blood Pressure Mean 96 98 Pulse Ox 92 96 95 Oxygen Delivery Method Bi-pap Oxygen Flow Rate (L/min) Fraction of Inspired Oxygen (FIO2) 40 Positive well nourished, well developed and obese General Appearance ED: well developed and NAD Nutritional Appearance: obese HEENT Reports moist mucous membranes Negative for trauma Eyes PERRL and EOMs intact bilaterally Chest Wall inspection of chest normal and palpation of chest normal Resp normal respiratory effort and clear to auscultation bilaterally Auscultation: Negative for rales, rhonchi or wheezes Cardio regular rate, regular rhythm, S1 normal heart sound and S2 normal heart sound GI normal to inspection, nondistended, normoactive bowel sounds Palpation: soft and tender LLQ Narrative: Denies dysuria, urinary frequency and urgency, hematuria Extremity normal to inspection Neuro Neuro Narrative: Patient drowsy. Able to state name, date of , and current city. Unable to state current month and year. Motor Exam: strength 5/5 throughout Psych mental status grossly normal Skin no rashes or lesions noted Skin Narrative: Excoriation noted to upper chest skin fold. <Dr. Berenice Ramirez MD - Last Filed: 07/26/23 15:16> Physical Exam Const Vital Signs: 07/26/23 11:59 07/26/23 11:58 07/26/23 12:35 Temperature 97.9 F Temperature Source Oral Pulse Rate 92 Respiratory Rate 14 Respiratory Effort Normal Respiratory Pattern Normal Blood Pressure 143/119 H Blood Pressure Mean 127 Pulse Ox 90 Oxygen Delivery Method Nasal Cannula Nasal Cannula Oxygen Flow Rate (L/min) 4 3 Fraction of Inspired Oxygen (FIO2) 07/26/23 12:54 07/26/23 13:35 07/26/23 13:48 Temperature Temperature Source Pulse Rate 95 95 90 Respiratory Rate 20 H 19 H 21 H Respiratory Effort Respiratory Pattern Blood Pressure 107/85 H 134/75 H Blood Pressure Mean 92 94 Pulse Ox 94 91 93 Oxygen Delivery Method Nasal Cannula Bi-pap Oxygen Flow Rate (L/min) 3 Fraction of Inspired Oxygen (FIO2) 40 07/26/23 13:31 07/26/23 14:46 07/26/23 15:04 Temperature 97.4 F L 97.4 F L Temperature Source Temporal Pulse Rate 93 85 85 Respiratory Rate 24 H 18 21 H Respiratory Effort Respiratory Pattern Blood Pressure 123/83 H 136/79 H Blood Pressure Mean 96 98 Pulse Ox 92 96 95 Oxygen Delivery Method Bi-pap Oxygen Flow Rate (L/min) Fraction of Inspired Oxygen (FIO2) 40 [facility] <Marichuy Brown RN - Last Filed: 07/26/23 14:57> [facility] Narrative Medical decision making narrative: Patient placed on manager cardiac. IV line initiated. Labwork obtained to evaluate for leukocytosis, anemia, and electrolyte derangement. EKG obtained to evaluate for cardiac arrhythmia/ischemia. Nasal cannula end-tidal CO2 obtained shortly after arrival to ED showing end-tidal CO2 in the mid 90s. Patient placed on BiPAP. History & Record Review Discussion w/independent historian: Patient Lab Data Labs: Laboratory Results - last 24 hr 07/26/23 12:45 WBC 11.4 H RBC 3.96 L Hgb 10.3 L Hct 36.8 L MCV 92.9 MCH 26.0 L MCHC 28.0 L RDW Std Deviation 45.0 H RDW Coeff of David 13.2 Plt Count 231 MPV 11.7 Immature Gran % (Auto) 0.600 Neut % (Auto) 76.2 H Lymph % (Auto) 14.3 L Nobles % (Auto) 7.7 Eos % (Auto) 0.9 Baso % (Auto) 0.3 Absolute Neuts (auto) 8.7 H Absolute Lymphs (auto) 1.63 Nucleated RBC % 0 Sodium 141 Potassium 4.4 Chloride 95 L Carbon Dioxide > 45.0 H* Anion Gap TNP BUN 22 H Creatinine 0.67 Est GFR (MDRD) Af Amer 114 Est GFR (MDRD) Non-Af 95 BUN/Creatinine Ratio 32.7 H Glucose 133 H Calcium 10.7 H B-Natriuretic Peptide 26.1 ABG Data ABG results: ABG 07/26/23 07/26/23 07/26/23 13:09 13:09 13:09 Specimen Type ART Cancelled Cancelled Sample Site R RADIAL pH Bicarbonate Actual Total CO2 Base Excess O2 Saturation O2 % ABG pCO2 ABG pO2 Rosa Test Respiration Rate O2 Delivery Device Liter Flow Minute Volume Vent Mode Inspiratory Time Expiratory Time Tidal Volume Mean Airway Pressure POC PEEP Peak Inspir Pressure POC Pressure Suppt Pressure Control Pressure High Pressure Low Time High Time Low EPAP IPAP Blood Gas Comments Crit Call To/Read Back Blood Gas Notified Whom Blood Gas Notified Time Clinical Comments 07/26/23 07/26/23 07/26/23 13:09 13:09 13:09 Specimen Type Sample Site Cancelled Cancelled pH 7.30 L Cancelled Bicarbonate Actual Total CO2 Base Excess O2 Saturation O2 % ABG pCO2 ABG pO2 Rosa Test Respiration Rate O2 Delivery Device Liter Flow Minute Volume Vent Mode Inspiratory Time Expiratory Time Tidal Volume Mean Airway Pressure POC PEEP Peak Inspir Pressure POC Pressure Suppt Pressure Control Pressure High Pressure Low Time High Time Low EPAP IPAP Blood Gas Comments Crit Call To/Read Back Blood Gas Notified Whom Blood Gas Notified Time Clinical Comments 07/26/23 07/26/23 07/26/23 13:09 13:09 13:09 Specimen Type Sample Site pH Cancelled Bicarbonate Actual 46.3 H Cancelled Cancelled Total CO2 49 Base Excess O2 Saturation O2 % ABG pCO2 ABG pO2 Rosa Test Respiration Rate O2 Delivery Device Liter Flow Minute Volume Vent Mode Inspiratory Time Expiratory Time Tidal Volume Mean Airway Pressure POC PEEP Peak Inspir Pressure POC Pressure Suppt Pressure Control Pressure High Pressure Low Time High Time Low EPAP IPAP Blood Gas Comments Crit Call To/Read Back Blood Gas Notified Whom Blood Gas Notified Time Clinical Comments 07/26/23 07/26/23 07/26/23 13:09 13:09 13:09 Specimen Type Sample Site pH Bicarbonate Actual Total CO2 Cancelled Cancelled Base Excess 20 H Cancelled O2 Saturation O2 % ABG pCO2 ABG pO2 Rosa Test Respiration Rate O2 Delivery Device Liter Flow Minute Volume Vent Mode Inspiratory Time Expiratory Time Tidal Volume Mean Airway Pressure POC PEEP Peak Inspir Pressure POC Pressure Suppt Pressure Control Pressure High Pressure Low Time High Time Low EPAP IPAP Blood Gas Comments Crit Call To/Read Back Blood Gas Notified Whom Blood Gas Notified Time Clinical Comments 07/26/23 07/26/23 07/26/23 13:09 13:09 13:09 Specimen Type Sample Site pH Bicarbonate Actual Total CO2 Base Excess Cancelled O2 Saturation 83 L Cancelled Cancelled O2 % Cancelled ABG pCO2 ABG pO2 Rosa Test Respiration Rate O2 Delivery Device Liter Flow Minute Volume Vent Mode Inspiratory Time Expiratory Time Tidal Volume Mean Airway Pressure POC PEEP Peak Inspir Pressure POC Pressure Suppt Pressure Control Pressure High Pressure Low Time High Time Low EPAP IPAP Blood Gas Comments Crit Call To/Read Back Blood Gas Notified Whom Blood Gas Notified Time Clinical Comments 07/26/23 07/26/23 07/26/23 13:09 13:09 13:09 Specimen Type Sample Site pH Bicarbonate Actual Total CO2 Base Excess O2 Saturation O2 % Cancelled ABG pCO2 93.3 H* Cancelled Cancelled ABG pO2 57 L Rosa Test Respiration Rate O2 Delivery Device Liter Flow Minute Volume Vent Mode Inspiratory Time Expiratory Time Tidal Volume Mean Airway Pressure POC PEEP Peak Inspir Pressure POC Pressure Suppt Pressure Control Pressure High Pressure Low Time High Time Low EPAP IPAP Blood Gas Comments Crit Call To/Read Back Blood Gas Notified Whom Blood Gas Notified Time Clinical Comments 04/07/26/23 07/26/23 13:09 13:09 13:09 Specimen Type Sample Site pH Bicarbonate Actual Total CO2 Base Excess O2 Saturation O2 % ABG pCO2 ABG pO2 Cancelled Cancelled Rosa Test POS Cancelled Respiration Rate O2 Delivery Device Liter Flow Minute Volume Vent Mode Inspiratory Time Expiratory Time Tidal Volume Mean Airway Pressure POC PEEP Peak Inspir Pressure POC Pressure Suppt Pressure Control Pressure High Pressure Low Time High Time Low EPAP IPAP Blood Gas Comments Crit Call To/Read Back Blood Gas Notified Whom Blood Gas Notified Time Clinical Comments 07/26/23 07/26/23 07/26/23 13:09 13:09 13:09 Specimen Type Sample Site pH Bicarbonate Actual Total CO2 Base Excess O2 Saturation O2 % ABG pCO2 ABG pO2 Rosa Test Cancelled Respiration Rate Cancelled Cancelled O2 Delivery Device CANNULA Cancelled Liter Flow Minute Volume Vent Mode Inspiratory Time Expiratory Time Tidal Volume Mean Airway Pressure POC PEEP Peak Inspir Pressure POC Pressure Suppt Pressure Control Pressure High Pressure Low Time High Time Low EPAP IPAP Blood Gas Comments Crit Call To/Read Back Blood Gas Notified Whom Blood Gas Notified Time Clinical Comments 07/26/23 07/26/23 07/26/23 13:09 13:09 13:09 Specimen Type Sample Site pH Bicarbonate Actual Total CO2 Base Excess O2 Saturation O2 % ABG pCO2 ABG pO2 Rosa Test Respiration Rate O2 Delivery Device Cancelled Liter Flow 3.0 Cancelled Cancelled Minute Volume Cancelled Vent Mode Inspiratory Time Expiratory Time Tidal Volume Mean Airway Pressure POC PEEP Peak Inspir Pressure POC Pressure Suppt Pressure Control Pressure High Pressure Low Time High Time Low EPAP IPAP Blood Gas Comments Crit Call To/Read Back Blood Gas Notified Whom Blood Gas Notified Time Clinical Comments 07/26/23 07/26/23 07/26/23 13:09 13:09 13:09 Specimen Type Sample Site pH Bicarbonate Actual Total CO2 Base Excess O2 Saturation O2 % ABG pCO2 ABG pO2 Rosa Test Respiration Rate O2 Delivery Device Liter Flow Minute Volume Cancelled Vent Mode Cancelled Cancelled Inspiratory Time Cancelled Cancelled Expiratory Time Cancelled Tidal Volume Mean Airway Pressure POC PEEP Peak Inspir Pressure POC Pressure Suppt Pressure Control Pressure High Pressure Low Time High Time Low EPAP IPAP Blood Gas Comments Crit Call To/Read Back Blood Gas Notified Whom Blood Gas Notified Time Clinical Comments 07/26/23 07/26/23 07/26/23 13:09 13:09 13:09 Specimen Type Sample Site pH Bicarbonate Actual Total CO2 Base Excess O2 Saturation O2 % ABG pCO2 ABG pO2 Rosa Test Respiration Rate O2 Delivery Device Liter Flow Minute Volume Vent Mode Inspiratory Time Expiratory Time Cancelled Tidal Volume Cancelled Cancelled Mean Airway Pressure Cancelled Cancelled POC PEEP Cancelled Peak Inspir Pressure POC Pressure Suppt Pressure Control Pressure High Pressure Low Time High Time Low EPAP IPAP Blood Gas Comments Crit Call To/Read Back Blood Gas Notified Whom Blood Gas Notified Time Clinical Comments 07/26/23 07/26/23 07/26/23 13:09 13:09 13:09 Specimen Type Sample Site pH Bicarbonate Actual Total CO2 Base Excess O2 Saturation O2 % ABG pCO2 ABG pO2 Rosa Test Respiration Rate O2 Delivery Device Liter Flow Minute Volume Vent Mode Inspiratory Time Expiratory Time Tidal Volume Mean Airway Pressure POC PEEP Cancelled Peak Inspir Pressure Cancelled Cancelled POC Pressure Suppt Cancelled Cancelled Pressure Control Cancelled Pressure High Pressure Low Time High Time Low EPAP IPAP Blood Gas Comments Crit Call To/Read Back Blood Gas Notified Whom Blood Gas Notified Time Clinical Comments 07/26/23 07/26/23 07/26/23 13:09 13:09 13:09 Specimen Type Sample Site pH Bicarbonate Actual Total CO2 Base Excess O2 Saturation O2 % ABG pCO2 ABG pO2 Rosa Test Respiration Rate O2 Delivery Device Liter Flow Minute Volume Vent Mode Inspiratory Time Expiratory Time Tidal Volume Mean Airway Pressure POC PEEP Peak Inspir Pressure POC Pressure Suppt Pressure Control Cancelled Pressure High Cancelled Cancelled Pressure Low Cancelled Cancelled Time High Cancelled Time Low EPAP IPAP Blood Gas Comments Crit Call To/Read Back Blood Gas Notified Whom Blood Gas Notified Time Clinical Comments 07/26/23 07/26/23 07/26/23 13:09 13:09 13:09 Specimen Type Sample Site pH Bicarbonate Actual Total CO2 Base Excess O2 Saturation O2 % ABG pCO2 ABG pO2 Rsoa Test Respiration Rate O2 Delivery Device Liter Flow Minute Volume Vent Mode Inspiratory Time Expiratory Time Tidal Volume Mean Airway Pressure POC PEEP Peak Inspir Pressure POC Pressure Suppt Pressure Control Pressure High Pressure Low Time High Cancelled Time Low Cancelled Cancelled EPAP Cancelled Cancelled IPAP Cancelled Blood Gas Comments Crit Call To/Read Back Blood Gas Notified Whom Blood Gas Notified Time Clinical Comments 07/26/23 07/26/23 07/26/23 13:09 13:09 13:09 Specimen Type Sample Site pH Bicarbonate Actual Total CO2 Base Excess O2 Saturation O2 % ABG pCO2 ABG pO2 Rosa Test Respiration Rate O2 Delivery Device Liter Flow Minute Volume Vent Mode Inspiratory Time Expiratory Time Tidal Volume Mean Airway Pressure POC PEEP Peak Inspir Pressure POC Pressure Suppt Pressure Control Pressure High Pressure Low Time High Time Low EPAP IPAP Cancelled Blood Gas Comments Cancelled Cancelled Crit Call To/Read Back Yes Cancelled Blood Gas Notified Whom Blood Gas Notified Time Clinical Comments 07/26/23 07/26/23 07/26/23 13:09 13:09 13:09 Specimen Type Sample Site pH Bicarbonate Actual Total CO2 Base Excess O2 Saturation O2 % ABG pCO2 ABG pO2 Rosa Test Respiration Rate O2 Delivery Device Liter Flow Minute Volume Vent Mode Inspiratory Time Expiratory Time Tidal Volume Mean Airway Pressure POC PEEP Peak Inspir Pressure POC Pressure Suppt Pressure Control Pressure High Pressure Low Time High Time Low EPAP IPAP Blood Gas Comments Crit Call To/Read Back Cancelled Blood Gas Notified Whom DR. RAMIREZ Cancelled Cancelled Blood Gas Notified Time Cancelled Clinical Comments 07/26/23 07/26/23 13:09 13:09 Specimen Type Sample Site pH Bicarbonate Actual Total CO2 Base Excess O2 Saturation O2 % ABG pCO2 ABG pO2 Rosa Test Respiration Rate O2 Delivery Device Liter Flow Minute Volume Vent Mode Inspiratory Time Expiratory Time Tidal Volume Mean Airway Pressure POC PEEP Peak Inspir Pressure POC Pressure Suppt Pressure Control Pressure High Pressure Low Time High Time Low EPAP IPAP Blood Gas Comments Crit Call To/Read Back Blood Gas Notified Whom Blood Gas Notified Time Cancelled Clinical Comments Cancelled Cancelled EKG Initial EKG: Attestation: I personally reviewed and interpreted this EKG as follows: Interpretation: Sinus Rhythm and RBBB Comments: EKG shows sinus rhythm with a right bundle branch block with a rate of 88. No dysrhythmia or ischemia noted. Differential Diagnosis Chest pain/SOB: pneumonia Differential Diagnosis: Acute on chronic respiratory failure Management Discussion w/another healthcare provider: Other (Dr. Ramirez, ED provider) Treatment and Re-Evaluation :: Lab work reviewed. CBC shows slightly elevated white blood cell count 11.4 with neutrophils 76.2%, hemoglobin 10.3 which is increased from 07/17/2023 when it was 9.1, hematocrit 36.8, and platelets 231. Chemistries show normal sodium 141, normal potassium 4.4, chloride 95, CO2 greater than 45, BUN 22, and creatinine 0.67. Glucose is 133. BNP is 26.1. ABG obtained showing respiratory acidosis with pH 7.3, CO2 93.3, O2 57, and bicarb 46.3. patient placed on BiPAP after ABG obtained. Upon reevaluation, patient resting in bed. Awakens easily. Lab work discussed with patient. Patient agreeable to admission. Dr. Ramirez to contact hospitalist. <Dr. Berenice Ramirez MD - Last Filed: 07/26/23 15:16> [facility] Lab Data Labs: Laboratory Results - last 24 hr 07/26/23 12:45 WBC 11.4 H RBC 3.96 L Hgb 10.3 L Hct 36.8 L MCV 92.9 MCH 26.0 L MCHC 28.0 L RDW Std Deviation 45.0 H RDW Coeff of David 13.2 Plt Count 231 MPV 11.7 Immature Gran % (Auto) 0.600 Neut % (Auto) 76.2 H Lymph % (Auto) 14.3 L Nobles % (Auto) 7.7 Eos % (Auto) 0.9 Baso % (Auto) 0.3 Absolute Neuts (auto) 8.7 H Absolute Lymphs (auto) 1.63 Nucleated RBC % 0 Sodium 141 Potassium 4.4 Chloride 95 L Carbon Dioxide > 45.0 H* Anion Gap TNP BUN 22 H Creatinine 0.67 Est GFR (MDRD) Af Amer 114 Est GFR (MDRD) Non-Af 95 BUN/Creatinine Ratio 32.7 H Glucose 133 H Calcium 10.7 H B-Natriuretic Peptide 26.1 ABG Data ABG results: ABG 07/26/23 07/26/23 07/26/23 13:09 13:09 13:09 Specimen Type ART Cancelled Cancelled Sample Site R RADIAL pH Bicarbonate Actual Total CO2 Base Excess O2 Saturation O2 % ABG pCO2 ABG pO2 Rosa Test Respiration Rate O2 Delivery Device Liter Flow Minute Volume Vent Mode Inspiratory Time Expiratory Time Tidal Volume Mean Airway Pressure POC PEEP Peak Inspir Pressure POC Pressure Suppt Pressure Control Pressure High Pressure Low Time High Time Low EPAP IPAP Blood Gas Comments Crit Call To/Read Back Blood Gas Notified Whom Blood Gas Notified Time Clinical Comments 07/26/23 07/26/23 07/26/23 13:09 13:09 13:09 Specimen Type Sample Site Cancelled Cancelled pH 7.30 L Cancelled Bicarbonate Actual Total CO2 Base Excess O2 Saturation O2 % ABG pCO2 ABG pO2 [place]sa Test Respiration Rate O2 Delivery Device Liter Flow Minute Volume Vent Mode Inspiratory Time Expiratory Time Tidal Volume Mean Airway Pressure POC PEEP Peak Inspir Pressure POC Pressure Suppt Pressure Control Pressure High Pressure Low Time High Time Low EPAP IPAP Blood Gas Comments Crit Call To/Read Back Blood Gas Notified Whom Blood Gas Notified Time Clinical Comments 07/26/23 07/26/23 07/26/23 13:09 13:09 13:09 Specimen Type Sample Site pH Cancelled Bicarbonate Actual 46.3 H Cancelled Cancelled Total CO2 49 Base Excess O2 Saturation O2 % ABG pCO2 ABG pO2 Rosa Test Respiration Rate O2 Delivery Device Liter Flow Minute Volume Vent Mode Inspiratory Time Expiratory Time Tidal Volume Mean Airway Pressure POC PEEP Peak Inspir Pressure POC Pressure Suppt Pressure Control Pressure High Pressure Low Time High Time Low EPAP IPAP Blood Gas Comments Crit Call To/Read Back Blood Gas Notified Whom Blood Gas Notified Time Clinical Comments 07/26/23 07/26/23 07/26/23 13:09 13:09 13:09 Specimen Type Sample Site pH Bicarbonate Actual Total CO2 Cancelled Cancelled Base Excess 20 H Cancelled O2 Saturation O2 % ABG pCO2 ABG pO2 Rosa Test Respiration Rate O2 Delivery Device Liter Flow Minute Volume Vent Mode Inspiratory Time Expiratory Time Tidal Volume Mean Airway Pressure POC PEEP Peak Inspir Pressure POC Pressure Suppt Pressure Control Pressure High Pressure Low Time High Time Low EPAP IPAP Blood Gas Comments Crit Call To/Read Back Blood Gas Notified Whom Blood Gas Notified Time Clinical Comments 07/26/23 07/26/23 07/26/23 13:09 13:09 13:09 Specimen Type Sample Site pH Bicarbonate Actual Total CO2 Base Excess Cancelled O2 Saturation 83 L Cancelled Cancelled O2 % Cancelled ABG pCO2 ABG pO2 Rosa Test Respiration Rate O2 Delivery Device Liter Flow Minute Volume Vent Mode Inspiratory Time Expiratory Time Tidal Volume Mean Airway Pressure POC PEEP Peak Inspir Pressure POC Pressure Suppt Pressure Control Pressure High Pressure Low Time High Time Low EPAP IPAP Blood Gas Comments Crit Call To/Read Back Blood Gas Notified Whom Blood Gas Notified Time Clinical Comments 07/26/23 07/26/23 07/26/23 13:09 13:09 13:09 Specimen Type Sample Site pH Bicarbonate Actual Total CO2 Base Excess O2 Saturation O2 % Cancelled ABG pCO2 93.3 H* Cancelled Cancelled ABG pO2 57 L Rosa Test Respiration Rate O2 Delivery Device Liter Flow Minute Volume Vent Mode Inspiratory Time Expiratory Time Tidal Volume Mean Airway Pressure POC PEEP Peak Inspir Pressure POC Pressure Suppt Pressure Control Pressure High Pressure Low Time High Time Low EPAP IPAP Blood Gas Comments Crit Call To/Read Back Blood Gas Notified Whom Blood Gas Notified Time Clinical Comments 07/26/23 07/26/23 07/26/23 13:09 13:09 13:09 Specimen Type Sample Site pH Bicarbonate Actual Total CO2 Base Excess O2 Saturation O2 % ABG pCO2 ABG pO2 Cancelled Cancelled Rosa Test POS Cancelled Respiration Rate O2 Delivery Device Liter Flow Minute Volume Vent Mode Inspiratory Time Expiratory Time Tidal Volume Mean Airway Pressure POC PEEP Peak Inspir Pressure POC Pressure Suppt Pressure Control Pressure High Pressure Low Time High Time Low EPAP IPAP Blood Gas Comments Crit Call To/Read Back Blood Gas Notified Whom Blood Gas Notified Time Clinical Comments 07/26/23 07/26/23 07/26/23 13:09 13:09 13:09 Specimen Type Sample Site pH Bicarbonate Actual Total CO2 Base Excess O2 Saturation O2 % ABG pCO2 ABG pO2 Rosa Test Cancelled Respiration Rate Cancelled Cancelled O2 Delivery Device CANNULA Cancelled Liter Flow Minute Volume Vent Mode Inspiratory Time Expiratory Time Tidal Volume Mean Airway Pressure POC PEEP Peak Inspir Pressure POC Pressure Suppt Pressure Control Pressure High Pressure Low Time High Time Low EPAP IPAP Blood Gas Comments Crit Call To/Read Back Blood Gas Notified Whom Blood Gas Notified Time Clinical Comments 07/26/23 07/26/23 07/26/23 13:09 13:09 13:09 Specimen Type Sample Site pH Bicarbonate Actual Total CO2 Base Excess O2 Saturation O2 % ABG pCO2 ABG pO2 Rosa Test Respiration Rate O2 Delivery Device Cancelled Liter Flow 3.0 Cancelled Cancelled Minute Volume Cancelled Vent Mode Inspiratory Time Expiratory Time Tidal Volume Mean Airway Pressure POC PEEP Peak Inspir Pressure POC Pressure Suppt Pressure Control Pressure High Pressure Low Time High Time Low EPAP IPAP Blood Gas Comments Crit Call To/Read Back Blood Gas Notified Whom Blood Gas Notified Time Clinical Comments 07/26/23 07/26/23 07/26/23 13:09 13:09 13:09 Specimen Type Sample Site pH Bicarbonate Actual Total CO2 Base Excess O2 Saturation O2 % ABG pCO2 ABG pO2 Rosa Test Respiration Rate O2 Delivery Device Liter Flow Minute Volume Cancelled Vent Mode Cancelled Cancelled Inspiratory Time Cancelled Cancelled Expiratory Time Cancelled Tidal Volume Mean Airway Pressure POC PEEP Peak Inspir Pressure POC Pressure Suppt Pressure Control Pressure High Pressure Low Time High Time Low EPAP IPAP Blood Gas Comments Crit Call To/Read Back Blood Gas Notified Whom Blood Gas Notified Time Clinical Comments 07/26/23 07/26/23 07/26/23 13:09 13:09 13:09 Specimen Type Sample Site pH Bicarbonate Actual Total CO2 Base Excess O2 Saturation O2 % ABG pCO2 ABG pO2 Rosa Test Respiration Rate O2 Delivery Device Liter Flow Minute Volume Vent Mode Inspiratory Time Expiratory Time Cancelled Tidal Volume Cancelled Cancelled Mean Airway Pressure Cancelled Cancelled POC PEEP Cancelled Peak Inspir Pressure POC Pressure Suppt Pressure Control Pressure High Pressure Low Time High Time Low EPAP IPAP Blood Gas Comments Crit Call To/Read Back Blood Gas Notified Whom Blood Gas Notified Time Clinical Comments 07/26/23 07/26/23 07/26/23 13:09 13:09 13:09 Specimen Type Sample Site pH Bicarbonate Actual Total CO2 Base Excess O2 Saturation O2 % ABG pCO2 ABG pO2 Rosa Test Respiration Rate O2 Delivery Device Liter Flow Minute Volume Vent Mode Inspiratory Time Expiratory Time Tidal Volume Mean Airway Pressure POC PEEP Cancelled Peak Inspir Pressure Cancelled Cancelled POC Pressure Suppt Cancelled Cancelled Pressure Control Cancelled Pressure High Pressure Low Time High Time Low EPAP IPAP Blood Gas Comments Crit Call To/Read Back Blood Gas Notified Whom Blood Gas Notified Time Clinical Comments 07/26/23 07/26/23 07/26/23 13:09 13:09 13:09 Specimen Type Sample Site pH Bicarbonate Actual Total CO2 Base Excess O2 Saturation O2 % ABG pCO2 ABG pO2 Rosa Test Respiration Rate O2 Delivery Device Liter Flow Minute Volume Vent Mode Inspiratory Time Expiratory Time Tidal Volume Mean Airway Pressure POC PEEP Peak Inspir Pressure POC Pressure Suppt Pressure Control Cancelled Pressure High Cancelled Cancelled Pressure Low Cancelled Cancelled Time High Cancelled Time Low EPAP IPAP Blood Gas Comments Crit Call To/Read Back Blood Gas Notified Whom Blood Gas Notified Time Clinical Comments 07/26/23 07/26/23 07/26/23 13:09 13:09 13:09 Specimen Type Sample Site pH Bicarbonate Actual Total CO2 Base Excess O2 Saturation O2 % ABG pCO2 ABG pO2 Rosa Test Respiration Rate O2 Delivery Device Liter Flow Minute Volume Vent Mode Inspiratory Time Expiratory Time Tidal Volume Mean Airway Pressure POC PEEP Peak Inspir Pressure POC Pressure Suppt Pressure Control Pressure High Pressure Low Time High Cancelled Time Low Cancelled Cancelled EPAP Cancelled Cancelled IPAP Cancelled Blood Gas Comments Crit Call To/Read Back Blood Gas Notified Whom Blood Gas Notified Time Clinical Comments 07/26/23 07/26/23 07/26/23 13:09 13:09 13:09 Specimen Type Sample Site pH Bicarbonate Actual Total CO2 Base Excess O2 Saturation O2 % ABG pCO2 ABG pO2 Rosa Test Respiration Rate O2 Delivery Device Liter Flow Minute Volume Vent Mode Inspiratory Time Expiratory Time Tidal Volume Mean Airway Pressure POC PEEP Peak Inspir Pressure POC Pressure Suppt Pressure Control Pressure High Pressure Low Time High Time Low EPAP IPAP Cancelled Blood Gas Comments Cancelled Cancelled Crit Call To/Read Back Yes Cancelled Blood Gas Notified Whom Blood Gas Notified Time Clinical Comments 07/26/23 07/26/23 07/26/23 13:09 13:09 13:09 Specimen Type Sample Site pH Bicarbonate Actual Total CO2 Base Excess O2 Saturation O2 % ABG pCO2 ABG pO2 Rosa Test Respiration Rate O2 Delivery Device Liter Flow Minute Volume Vent Mode Inspiratory Time Expiratory Time Tidal Volume Mean Airway Pressure POC PEEP Peak Inspir Pressure POC Pressure Suppt Pressure Control Pressure High Pressure Low Time High Time Low EPAP IPAP Blood Gas Comments Crit Call To/Read Back Cancelled Blood Gas Notified Whom DR. RAMIREZ Cancelled Cancelled Blood Gas Notified Time Cancelled Clinical Comments 07/26/23 07/26/23 13:09 13:09 Specimen Type Sample Site pH Bicarbonate Actual Total CO2 Base Excess O2 Saturation O2 % ABG pCO2 ABG pO2 Rosa Test Respiration Rate O2 Delivery Device Liter Flow Minute Volume Vent Mode Inspiratory Time Expiratory Time Tidal Volume Mean Airway Pressure POC PEEP Peak Inspir Pressure POC Pressure Suppt Pressure Control Pressure High Pressure Low Time High Time Low EPAP IPAP Blood Gas Comments Crit Call To/Read Back Blood Gas Notified Whom Blood Gas Notified Time Cancelled Clinical Comments Cancelled Cancelled Treatment and Re-Evaluation :: Lab work reviewed. CBC shows slightly elevated white blood cell count 11.4 with neutrophils 76.2%, hemoglobin 10.3 which is increased from 07/17/2023 when it was 9.1, hematocrit 36.8, and platelets 231. Chemistries show normal sodium 141, normal potassium 4.4, chloride 95, CO2 greater than 45, BUN 22, and creatinine 0.67. Glucose is 133. BNP is 26.1. ABG obtained showing respiratory acidosis with pH 7.3, CO2 93.3, O2 57, and bicarb 46.3. patient placed on BiPAP after ABG obtained. Upon reevaluation, patient resting in bed. Awakens easily. Lab work discussed with patient. Patient agreeable to admission. Dr. Ramirez to contact hospitalist. Patient seen and evaluated with [place] student. I personally interviewed and examined the patient. I was involved in all aspects of patient's orders, interpretation of results, and treatment. Patient presents from [facility] secondary to abnormal blood work. She had a BMP obtained that reveals her CO2 was greater than 45. Patient does have a history of chronic respiratory failure and is reportedly noncompliant with her BiPAP. Patient states that she does feel slightly confused and off. Patient alert and appropriate. She is answering questions at this time. Head neck examination unremarkable. Heart is regular rate and rhythm. Lung sounds are diminished at the bases bilaterally. Abdomen is soft, obese, nontender. Neuro exam reveals patient to be alert and answering questions appropriately. She is moving all 4 extremities. Lab work revealed slightly elevated white count at 11.4 with a hemoglobin of 10.3. 76% neutrophils noted. Chemistry studies reveal CO2 level greater than 45. BNP is normal at 26. ABG is obtained. pH is 7.304 with a pCO2 of 93.3. Patient does agree to wear BiPAP at this time. She is placed on BiPAP and I will speak with hospitalist regarding admission. I feel that she should be observed overnight on BiPAP to ensure no worsening of mental status. Discharge Plan Dx/Rx/DC Orders Clinical Impression: Acute hypoxic on chronic hypercapnic respiratory failure, History of COPD, History of obstructive sleep apnea, History of morbid obesity, History of hypertension, History of anemia Disposition Disposition: Acute Care Hospital [facility] What to do if you have Problems For any increased pain, shortness of breath, bleeding, nausea or vomiting, chest pain, or any unexpected problems, contact your Primary Care Provider. Call [facility] ([phone]) or report to the closest Emergency Room. Call 911 if necessary. 07/26/23 1825 <Electronically signed by Berenice Ramirez MD> Cosigner Signature (if applicable): 07/26/23 1457 <Electronically signed by Marichuy Brown RN> CC: Sepideh Patterson MD ~ Signed [facility] Work Phone: [phone]) 456-970301-11-2024 Progress note Author Leanna Pascual [facility] April 19, 2023 9:28am Note Date/Time April 19, 2023 9 :29am [facility] Medical Records Department [address] [place] [address] Progress Note - Hospitalist 04/19/23924 MR#: [id number] Acct: [id number] Name: HE LAUREANO Rep #:[id number] : 1960 62 From: Leanna Pascual MD PCP: Sepideh Patterson MD Status:ADM IN Location: [place] [address] Reason for Visit Reason for Visit: Diagnoses Acute bronchitis due to respiratory syncytial virus (04/16/23) Subjective Subjective Patient seen, level of sensorium continues to improve. Creatinine down to 2 point will continue with current treatment with IV fluids Objective Data Objective Data Vital Signs: Vital Signs Temp Pulse Resp BP Pulse Ox O2 Del Method O2 Flow Rate 97.7 F L 98 18 141/59 H 96 High Flow 4 04/19/23 03:36 04/19/23 03:36 04/19/23 03:36 04/19/23 03:36 04/19/23 03:36 04/19/23 03:43 04/19/23 03:43 FiO2 45 04/18/23 00:34 Oxygen Flow Rate (L/min) 4 Oxygen Delivery Method High Flow Weight: 161 kg Body Mass Index (BMI) 57.2 Intake & Output: Intake and Output for Last 24 Hours 04/17/23 04/18/23 04/19/23 23:59 23:59 23:59 Intake Total 2513.33 / 2513.33 3310.83 / 3310.83 1000 / 1000 Output Total 1150 / 1150 1600 / 1600 Balance 1363.33 / 1363.33 1710.83 / 1710.83 1000 / 1000 Lab / Micro Data 04/19/23 06:35 04/19/23 06:35 Labs: Laboratory Results - last 24 hr 04/17/23 08:08: Diff Path Review Reviewed 04/19/23 06:35: WBC 6.4, RBC 3.42 L, Hgb 9.1 L, Hct 32.2 L, MCV 94.2, MCH 26.6 L, MCHC 28.3 L, RDW Std Deviation 46.0 H, RDW Coeff of David 13.3, Plt Count 280, MPV 11.0, Immature Gran % (Auto) 3.300 H, Neut % (Auto) 73.6 H, Lymph % (Auto) 13.1 L, Nobles % (Auto) 9.7, Eos % (Auto) 0.0, Baso % (Auto) 0.3, Absolute Neuts (auto) 4.7, Absolute Lymphs (auto) 0.84, Nucleated RBC % 0, Sodium 144, Potassium 4.0, Chloride 105, Carbon Dioxide 34.0 H, Anion Gap 5, BUN 39 H, Creatinine 2.20 H, Estim Creat Clear Calc 42.38, Est GFR (MDRD) Af Amer 29 L, Est GFR (MDRD) Non-Af 24 L, BUN/Creatinine Ratio 17.7, Glucose 95, Calcium 9.2 Micro: Microbiology 04/16/23 14:19 Blood Culture (Wb) - Other Blood Culture - Preliminary No growth in 48 hours. 04/16/23 13:40 Blood Culture (Wb) - Arm Left Blood Culture - Preliminary No growth in 48 hours. 04/16/23 15:15 Urine Catheter - Catheter Urine Culture - Preliminary Alpha hemolytic organism Gram positive organism GPC Poss Enterococcus sp Gram negative marco antonio 04/16/23 15:15 Urine, Clean Catch Legionella Antigen - Final 04/16/23 15:15 Urine, Clean Catch Streptococcus pneumoniae Antigen (M - Final 04/16/23 13:37 Mucosa - Nose SARS-CoV-2, Influenza & RSV (PCR) - Final RSV Rhythm Strip Rhythm Strip: Sinus Rhythm Rate: 96 Ectopy: PVC(s) Physical Exam Narrative GENERAL: Awake and interactive HEENT: Atraumatic; normocephalic EYES; Anicteric, Normal Conjunctiva NECK; supple, normal thyroid, RESPIRATORY: Diminished to auscultation CARDIOVASCULAR: Regular S1 S2, GI: soft, normoactive bowel sounds, : No Renal angle tenderness; EXTREMITIES: No edema, no clubbing, MUSCULOSKELETAL: no muscle wasting NEURO: Awake; no lateralizing signs. SKIN: No Rash PSYCH; awake and interactive Assessment & Plan Assessment/Plan (1) RSV bronchitis: PLAN: Plan Patient is a 62-year-old lady with multiple comorbidities including obesity withBMI of 57 currently residing at an extended care facility who was brought in with altered mental status. An assessment of acute encephalopathy secondary to RSV bronchitis made admitted to a monitored bed for subsequent management 1. Acute metabolic encephalopathy ? Due to combination of RSV bronchitis as well as acute cystitis. Admitted to amonitored bed for treatment of underlying clinical etiology 04/18/2023 level of sensorium improving 2. Acute RSV infection with bronchitis ? Admitted to regular nursing floor managed with bronchodilator treatment regimen as well as supplemental oxygen ? 04/18/2023 patient remains on supplemental oxygen 3. Acute cystitis ? Patient urine cultures grew a bunch of organism with no significant colony count 4. Acute on chronic hypoxic respiratory failure ? Due to combination of sleep apnea and obesity hypoventilation syndrome as wellas patient RSV bronchitis. Managed with supplemental oxygen titrated to keep saturation greater than 90 5. Acute kidney injury ? Patient baseline creatinine from 03/08/2023 was 0.99, creatinine on admission was 5.65 admitted to monitored bed managed with IV fluids, ordered renal ultrasound, avoid nephrotoxic medication, response to therapy being monitored with daily BMP ?04/18/2023; creatinine down to 3.63 will continue hydration with subsequent monitoring of electrolytes ? 04/19/2023; creatinine down to 2.2 5. Essential hypertension ? Patient is on losartan held in view of impaired kidney function 6.? Chronic hypoxic respiratory failure ? Due to obstructive sleep apnea as well as obesity hypoventilation syndrome patient is on baseline oxygen 7.? Obesity hypoventilation syndrome ? Consistent use of BiPAP encouraged 8.? COPD ? Currently not in exacerbation aerosol treatments as needed 9.?Class III obesity with BMI of BMI of 57 ? Complicating care 10. GERD ? On PPI 11. Depression ? Patient is on SSRI 12. Anemia - Secondary to chronic disorder monitoring H&H and transfuse if patient becomes symptomatic or hemoglobin falls below 7 13. Chronic congestive heart failure with preserved ejection fraction ? Echo from 05/05/2022 demonstrated EF of 55 to 60%. Patient is on Aldactone held in view of her impaired kidney function 14. DVT prophylaxis ? SC heparin Time spent in the patient's overall evaluation,decision-making process, review of diagnostic data, adjustment of management, discussion with other providers, nursing nursing and ancillary staff involved in patient's care documentation, 35Minutes Charges/Coding Visit Charges Inpatient E&M: 83625 Subs Hosp L2 04/19/23927 <Electronically signed by Leanna Pascual MD> Cosigner Signature (if applicable): CC: ~ Signed [facility] Work Phone: 1(845) 330-584801-10-2024 Progress note Author Leanna Pascual [facility] April 18, 2023 9:54am Note Date/Time April 18, 2023 9 :54am [facility] Medical Records Department [address] [place] [address] Progress Note - Hospitalist 04/18/2351 MR#: [id number] Acct: [id number] Name: HE LAUREANO Rep #:[id number] : 1960 62 From: Leanna Pascual MD PCP: Sepideh Patterson MD Status:ADM IN Location: [place] [address] Reason for Visit Reason for Visit: Diagnoses Acute bronchitis due to respiratory syncytial virus (04/16/23) Subjective Subjective Patient seen much more awake and responsive compared to the day prior Objective Data Objective Data Vital Signs: Vital Signs Temp Pulse Resp BP Pulse Ox O2 Del Method O2 Flow Rate 97.6 F L 102 H 18 124/65 H 95 High Flow 6 04/18/23 09:34 04/18/23 09:34 04/18/23 09:34 04/18/23 09:34 04/18/23 09:34 04/18/23 09:34 04/18/23 09:34 FiO2 45 04/18/23 00:34 Oxygen Flow Rate (L/min) 6 Oxygen Delivery Method High Flow Weight: 161.2 kg Body Mass Index (BMI) 57.3 Intake & Output: Intake and Output for Last 24 Hours 04/16/23 04/17/23 04/18/23 23:59 23:59 23:59 Intake Total 1050 / 1050 2513.33 / 2513.33 989.58 / 989.58 Output Total 1150 / 1150 400 / 400 Balance 1050 / 1050 1363.33 / 1363.33 589.58 / 589.58 Lab / Micro Data 04/18/23 05:50 04/18/23 05:50 Labs: Laboratory Results - last 24 hr 04/18/23 05:50: WBC 8.4, RBC 3.41 L, Hgb 9.3 L, Hct 32.2 L, MCV 94.4, MCH 27.3, MCHC 28.9 L, RDW Std Deviation 46.9 H, RDW Coeff of David 13.7, Plt Count 283, MPV11.0, Immature Gran % (Auto) 4.500 H, Neut % (Auto) 79.0 H, Lymph % (Auto) 10.2 L, Nobles % (Auto) 5.8, Eos % (Auto) 0.0, Baso % (Auto) 0.5, Absolute Neuts (auto)6.7, Absolute Lymphs (auto) 0.86, Nucleated RBC % 0, Sodium 141, Potassium 4.3, Chloride 102, Carbon Dioxide 34.0 H, Anion Gap 5, BUN 45 H, Creatinine 3.63 H, Estim Creat Clear Calc 25.71, Est GFR (MDRD) Af Amer 16 L, Est GFR (MDRD) Non-Af14 L, BUN/Creatinine Ratio 12.4, Glucose 115 H, Calcium 8.6, Phosphorus 5.7 H, Magnesium 1.8 Micro: Microbiology 04/16/23 15:15 Urine Catheter - Catheter Urine Culture - Preliminary Alpha hemolytic organism Gram positive organism GPC Poss Enterococcus sp Gram negative marco antonio 04/16/23 15:15 Urine, Clean Catch Legionella Antigen - Final 04/16/23 15:15 Urine, Clean Catch Streptococcus pneumoniae Antigen (M - Final 04/16/23 13:37 Mucosa - Nose SARS-CoV-2, Influenza & RSV (PCR) - Final RSV Radiography Diagnostic Testing: Radiology Impression Renal Ultrasound 04/17/23 11:52 IMPRESSION: Incomplete evaluation of the right kidney. No evidence of hydronephrosis. Electronically Signed: Costa Johnson MD at 16:58 EST , Rhythm Strip Rhythm Strip: Sinus Rhythm Rate: 96 Ectopy: PVC(s) Physical Exam Narrative GENERAL: Awake and interactive HEENT: Atraumatic; normocephalic EYES; Anicteric, Normal Conjunctiva NECK; supple, normal thyroid, RESPIRATORY: Diminished to auscultation CARDIOVASCULAR: Regular S1 S2, GI: soft, normoactive bowel sounds, : No Renal angle tenderness; EXTREMITIES: No edema, no clubbing, MUSCULOSKELETAL: no muscle wasting NEURO: Awake; no lateralizing signs. SKIN: No Rash PSYCH; awake and interactive Assessment & Plan Assessment/Plan (1) RSV bronchitis: PLAN: Plan Patient is a 62-year-old lady with multiple comorbidities including obesity withBMI of 57 currently residing at an extended care facility who was brought in with altered mental status. An assessment of acute encephalopathy secondary to RSV bronchitis made admitted to a monitored bed for subsequent management 1. Acute metabolic encephalopathy ? Due to combination of RSV bronchitis as well as acute cystitis. Admitted to amonitored bed for treatment of underlying clinical etiology 04/18/2023 level of sensorium improving 2. Acute RSV infection with bronchitis ? Admitted to regular nursing floor managed with bronchodilator treatment regimen as well as supplemental oxygen ? 04/18/2023 patient remains on supplemental oxygen 3. Acute cystitis ? Patient urine cultures grew a bunch of organism with no significant colony count 4. Acute on chronic hypoxic respiratory failure ? Due to combination of sleep apnea and obesity hypoventilation syndrome as wellas patient RSV bronchitis. Managed with supplemental oxygen titrated to keep saturation greater than 90 5. Acute kidney injury ? Patient baseline creatinine from 03/08/2023 was 0.99, creatinine on admission was 5.65 admitted to monitored bed managed with IV fluids, ordered renal ultrasound, avoid nephrotoxic medication, response to therapy being monitored with daily BMP ?04/18/2023; creatinine down to 1.63 will continue hydration with subsequent monitoring of electrolytes 5. Essential hypertension ? Patient is on losartan held in view of impaired kidney function 6.? Chronic hypoxic respiratory failure ? Due to obstructive sleep apnea as well as obesity hypoventilation syndrome patient is on baseline oxygen 7.? Obesity hypoventilation syndrome ? Consistent use of BiPAP encouraged 8.? COPD ? Currently not in exacerbation aerosol treatments as needed 9.?Class III obesity with BMI of BMI of 57 ? Complicating care 10. GERD ? On PPI 11. Depression ? Patient is on SSRI 12. Anemia - Secondary to chronic disorder monitoring H&H and transfuse if patient becomes symptomatic or hemoglobin falls below 7 13. Chronic congestive heart failure with preserved ejection fraction ? Echo from 05/05/2022 demonstrated EF of 55 to 60%. Patient is on Aldactone held in view of her impaired kidney function 14. DVT prophylaxis ? SC heparin Time spent in the patient's overall evaluation,decision-making process, review of diagnostic data, adjustment of management, discussion with other providers, nursing nursing and ancillary staff involved in patient's care documentation, 50Minutes Charges/Coding Visit Charges Inpatient E&M: 88187 Subs Hosp L3 04/18/23 0954 <Electronically signed by Leanna Pascual MD> Cosigner Signature (if applicable): CC: ~ Signed [facility] Work Phone: 1(784) 958-643801-09-2024 Progress note Author Leanna Pascual [facility] April 17, 2023 11:57am Note Date/Time April 17, 2023 8: 08am [facility] Medical Records Department [address] [place] [address] Progress Note - Hospitalist 04/17/23 0808 MR#: [id number] Acct: [id number] Name: HE LAUREANO [place] Rep #:[id number] : 1960 62 From: Leanna Pascual MD PCP: Sepideh Patterson MD Status:ADM IN Location: [place] [address] Reason for Visit Reason for Visit: Diagnoses Acute bronchitis due to respiratory syncytial virus (04/16/23) Subjective Subjective Patient is a 62-year-old lady with multiple comorbidities including obesity withBMI of 57 currently residing at an extended care facility who was brought in with altered mental status. An assessment of acute encephalopathy secondary to RSV bronchitis made admitted to a monitored bed for subsequent management Objective Data Objective Data Vital Signs: Vital Signs Temp Pulse Resp BP Pulse Ox O2 Del Method O2 Flow Rate 98 F 99 18 91/54 L 91 High Flow 6 04/17/23 06:00 04/17/23 06:00 04/17/23 06:00 04/17/23 06:00 04/17/23 08:01 04/17/23 08:01 04/17/23 08:01 FiO2 30 04/17/23 02:23 Oxygen Flow Rate (L/min) 6 Oxygen Delivery Method High Flow Weight: 160 kg Body Mass Index (BMI) 56.9 Intake & Output: Intake and Output for Last 24 Hours 04/15/23 04/16/23 04/17/23 23:59 23:59 23:59 Intake Total 1050 / 1050 925 / 925 Balance 1050 / 1050 925 / 925 Lab / Micro Data 04/17/23 08:08 04/17/23 08:08 Labs: Laboratory Results - last 24 hr 04/16/23 13:25: WBC 13.1 H, RBC 3.74 L, Hgb 10.1 L, Hct 35.5 L, MCV 94.9, MCH 27.0, MCHC 28.5 L, RDW Std Deviation 48.2 H, RDW Coeff of David 14.1, Plt Count 327, MPV 11.1, Immature Gran % (Auto) 4.100 H, Neut % (Auto) 72.5 H, Lymph % (Auto) 13.8 L, Nobles % (Auto) 8.3, Eos % (Auto) 0.8, Baso % (Auto) 0.5, Absolute Neuts (auto) 9.5 H, Absolute Lymphs (auto) 1.80, Nucleated RBC % 0.2, Sodium 136, Potassium 4.7, Chloride 94 L, Carbon Dioxide 37.0 H, Anion Gap 5, BUN 37 H,Creatinine 5.65 H, Estim Creat Clear Calc 9.79, Est GFR (MDRD) Af Amer 10 L, EstGFR (MDRD) Non-Af 8 L, BUN/Creatinine Ratio 6.5 L, Glucose 133 H, Calcium 10.0, Total Bilirubin 0.20, AST 14 L, ALT 14, Alkaline Phosphatase 86, Troponin I HighSens 18, Total Protein 6.8, Albumin 2.5 L, Globulin 4.3 H, Albumin/Globulin Ratio 0.6 L 04/16/23 13:40: Lactic Acid 0.8 04/16/23 15:15: Urine Color Yellow, Urine Clarity Sl. Cloudy, Urine pH 5.0, Ur Specific [place] 1.025, Urine Protein 100 H, Urine Glucose (UA) 50 H, Urine Ketones 5 H, Urine Occult Blood 10 H, Urine Nitrite Negative, Urine Bilirubin 1 H, Urine Urobilinogen Normal, Ur Leukocyte Esterase 100 H, Urine RBC 0-5 SEEN, Urine WBC 10-25 SEEN, Ur Squamous Epith Cells 0-5 SEEN, Urine Bacteria 1+, Hyaline Casts 0-5 SEEN, Urine Mucus 2+ 04/16/23 19:07: Procalcitonin 0.24 H Micro: Microbiology 04/16/23 15:15 Urine, Clean Catch Legionella Antigen - Final 04/16/23 15:15 Urine, Clean Catch Streptococcus pneumoniae Antigen (M - Final 04/16/23 13:37 Mucosa - Nose SARS-CoV-2, Influenza & RSV (PCR) - Final RSV ABG Data ABG results: ABG 04/16/23 15:30 Specimen Type MAXIM Sample Site Not entered VBG pH 7.35 VBG pO2 48 H VBG HCO3 33 H VBG Total CO2 35 H VBG O2 Sat (Calc) 80 H VBG Base Excess 7 H POC Mix VBG pCO2 Pt Tmp 59.4 H O2 Delivery Device Cannula Radiography Diagnostic Testing: Radiology Impression Brain CT 04/16/23 13:29 IMPRESSION: 1. Markedly limited examination due to significant artifacts. 2. No acute intracranial process. 3. Pansinusitis. 4. If symptoms persist, follow-up exam or MRI of the brain is recommended. Electronically Signed: Azar Martinez MD at 14:43 EST Reading Location ID and State: [facility] / [place] Tel , Service support , Chest X-Ray 04/16/23 14:18 IMPRESSION: Overall, no significant change since previous exam. Electronically Signed: Azar Martinez MD at 14:53 EST Reading Location ID and State: [facility] / [place] Tel , Service support , Rhythm Strip Rhythm Strip: Sinus Rhythm Rate: 96 Ectopy: PVC(s) Physical Exam Narrative GENERAL: Lethargic but arousable with sternal rub HEENT: Atraumatic; normocephalic EYES; Anicteric, Normal Conjunctiva NECK; supple, normal thyroid, RESPIRATORY: Diminished to auscultation CARDIOVASCULAR: Regular S1 S2, GI: soft, normoactive bowel sounds, : No Renal angle tenderness; EXTREMITIES: No edema, no clubbing, MUSCULOSKELETAL: no muscle wasting NEURO: Awake; no lateralizing signs. SKIN: No Rash PSYCH; lethargic Assessment & Plan Assessment/Plan (1) RSV bronchitis: PLAN: Plan Patient is a 62-year-old lady with multiple comorbidities including obesity withBMI of 57 currently residing at an extended care facility who was brought in with altered mental status. An assessment of acute encephalopathy secondary to RSV bronchitis made admitted to a monitored bed for subsequent management 1. Acute metabolic encephalopathy ? Due to combination of RSV bronchitis as well as acute cystitis. Admitted to amonitored bed for treatment of underlying clinical etiology 2. Acute RSV infection with bronchitis ? Admitted to regular nursing floor managed with bronchodilator treatment regimen as well as supplemental oxygen 3. Acute on chronic hypoxic respiratory failure ? Due to combination of sleep apnea and obesity hypoventilation syndrome as wellas patient RSV bronchitis. Managed with supplemental oxygen titrated to keep saturation greater than 90 4. Acute kidney injury ? Patient baseline creatinine from 03/08/2023 was 0.99, creatinine on admission was 5.65 admitted to monitored bed managed with IV fluids, ordered renal ultrasound, avoid nephrotoxic medication, response to therapy being monitored with daily BMP 5. Essential hypertension ? Patient is on losartan held in view of impaired kidney function 6.? Chronic hypoxic respiratory failure ? Due to obstructive sleep apnea as well as obesity hypoventilation syndrome patient is on baseline oxygen 7.? Obesity hypoventilation syndrome ? Consistent use of BiPAP encouraged 8.? COPD ? Currently not in exacerbation aerosol treatments as needed 9.?Class III obesity with BMI of BMI of 57 ? Complicating care 10. GERD ? On PPI 11. Depression ? Patient is on SSRI 12. Anemia - Secondary to chronic disorder monitoring H&H and transfuse if patient becomes symptomatic or hemoglobin falls below 7 13. Chronic congestive heart failure with preserved ejection fraction ? Echo from 05/05/2022 demonstrated EF of 55 to 60%. Patient is on Aldactone held in view of her impaired kidney function 14. DVT prophylaxis ? [place] heparin Time spent in the patient's overall evaluation,decision-making process, review of diagnostic data, adjustment of management, discussion with other providers, nursing nursing and ancillary staff involved in patient's care documentation, 55Minutes Charges/Coding Visit Charges Inpatient E&M: 14918 Subs Hosp L3 04/17/23 1157 <Electronically signed by Leanna Pascual MD> Cosigner Signature (if applicable): CC: ~ Signed [facility] Work Phone: 1(872) 720-277601-08-2024 History and physical note Author Elizabeth Choe [facility] April 16, 2023 7:31pm Note Date/Time April 16, 2023 4: 35pm [facility] Medical Records Department [address] [place] [id number] H&P Exam - Hospitalist 04/16/23 1634 MR#: [id number] Acct: [id number] Name: HE LAUREANO Rep #:[id number] : 1960 62 From: Elizabeth Choe MD PCP: Sepideh Patterson MD Status:ADM IN Location: [place] [address] HPI - General General Date of Admission: 04/16/23 Date of Service: 04/16/23 Chief Complaint: Cough, dyspnea, wheezing, mentation change. HPI Narrative The patient is a 62 y/o F w/ PMHx: Morbid Obesity, HFrEF, HTN, HLD, Chronic anemia, Anxiety and Deprssion, Chronic pain syndrome, Chronic Hypoxic Respiratory Failure (2-3L NC) with COPD/Asthma, GERD w/ PUD, Hx TIA, Allergic rhinitis, MARISOL on BIPAP q HS who presents to the [facility] ED on 04/16/22 from her SNF secondary to increasing confusion, lethargy, notable cough and recent wheezing with recent poor oral intake over the last 36-48 hours prompting ED transition for evaluation. Workup in the ED included T96, heart rate 97, BP 152/123, respiratory rate 18, 90% on 4 L nasal cannula initially with most recent repeat assessment BP 118/92, respiratory rate 22, 93% on 5 L nasal cannula, CBC with WBC 13.1, hemoglobin 10.1, MCV 94.9, platelet 327 with increased immature granulocytes and left shift, VBG with pH 7.35, pO2 48, bicarb 33, CO2 35, O2 saturation 80%, CMP with chloride 94, Comvax at 37, BUN/creatinine 37/5.65, glucose 133, lactic acid 0.8, hepatic profile not marked appearing, troponin 18,urinalysis with cloudy appearing urine, specific gravity 1.025, protein 100, glucose 50, ketone 5, occult blood 10, negative nitrite, leukocyte Estrace 100 with urine WBCs 10-25 with 1+ urine bacteria, blood culture x 2 pending per ED, SARS COVID/flu/RSV PCR with positive RSV, chest x-ray with a left-sided central venous catheter in place with no acute cardiopulmonary findings otherwise, CT brain with limited exam secondary to artifact, para sinusitis evident, no acute intracranial process otherwise, EKG with SR with occasional PVC with no acute evidence of ischemia. In the ED patient ministered 1 L normal saline as well asRocephin 1 g IV x 1. PFSH Medical History (Updated 04/16/23 @ 19:[address] 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 deficits Seasonal allergies TIA (transient ischemic attack) UTI (urinary tract infection) Vitamin D deficiency Home Medications amitriptyline 25 mg tablet 25 mg PO QODAY DEPRESSION 05/03/22 [History Last Taken 04/15/23] atorvastatin 20 mg tablet 20 mg PO QHS CHOLESTEROL 05/03/22 [History Last Taken 04/15/23] cyclobenzaprine 10 mg tablet 10 mg PO TID MUSCLE SPASMS 05/03/22 [History Last Taken 04/16/23] famotidine 20 mg tablet 20 mg PO QHS GERD 05/03/22 [History Last Taken 04/15/23] fluticasone propionate 50 mcg/actuation nasal spray,suspension 2 spray intranasal BID PRN NASAL CONGESTION 05/03/22 [History Last Taken 05/28/22] losartan 50 mg tablet 50 mg PO DAILY BLOOD PRESSURE 05/03/22 [History Last Taken 04/16/23] montelukast 10 mg tablet 10 mg PO DAILY ALLERGIES 05/03/22 [History Last Taken 04/16/23] omeprazole 20 mg tablet,delayed release 20 mg PO DAILY GERD 05/03/22 [History Last Taken 04/16/23] roflumilast 500 mcg tablet (Daliresp) 500 mcg PO DAILY ASTHMA 05/03/22 [History Last Taken 04/16/23] sertraline 100 mg tablet (Zoloft) 100 mg PO QHS DEPRESSION 05/03/22 [History Last Taken 04/16/23] dicyclomine 10 mg capsule 10 mg PO 4X/DAY IRRITABLE BOWELS #1 cap 05/05/22 [Rx Last Taken 04/16/23] furosemide 40 mg tablet 40 mg PO DAILY FLUID #30 tabs 05/30/22 [Rx Last Taken 04/16/23] albuterol sulfate 90 mcg/actuation aerosol inhaler 2 puff inhalation Q2H PRN SOB09/08/22 [History Last Taken 04/12/23] cholecalciferol (vitamin D3) 50 mcg (2,000 unit) tablet 50 mcg PO DAILY SUPPLEMENT 04/16/23 [History Last Taken 04/16/23] loperamide 2 mg capsule (Imodium A-D) 2 mg PO Q8H PRN DIARRHEA 04/16/23 [History Last Taken 04/09/23] prednisone 10 mg tablet 10 mg PO DAILY COPD 04/16/23 [History Last Taken 04/16/23] sertraline 50 mg tablet 50 mg PO DAILY DEPRESSION 04/16/23 [History Last Taken 04/16/23] spironolactone 25 mg tablet 12.5 mg PO DAILY BLOOD PRESSURE 04/16/23 [History Last Taken 04/15/23] Allergy/AdvReac Type Severity Reaction Status Date / Time aspirin Allergy Other Verified 09/08/22 00:15 black pepper [pepper] Allergy Other Verified 09/08/22 00:15 coconut Allergy Other Verified 09/08/22 00:15 codeine Allergy Other Verified 09/08/22 00:15 ibuprofen Allergy Other Verified 09/08/22 00:15 Influenza Virus Vaccines Allergy Other Verified 09/08/22 00:15 Penicillins Allergy Anaphylaxis Verified 09/08/22 00:15 rice Allergy Other Verified 09/08/22 00:15 tetanus and diphtheria Allergy Other Verified 09/08/22 00:15 toxoids Tetanus Vaccines and Toxoid Allergy Other Verified 09/08/22 00:15 Family History Mother CAD (coronary artery disease) COPD (chronic obstructive pulmonary disease) Hypertension Heart disease Father CAD (coronary artery disease) COPD (chronic obstructive pulmonary disease) Hypertension Heart disease Surgical History (Updated 04/16/23 @ 19:[address] Elizabeth Choe MD) History of ankle surgery Social History housing: assisted Smoking Status: Former smoker alcohol intake: never substance use type: does not use ROS Review of Systems ROS Unobtainable: due to encephalopathy Vital Signs Vital Signs Vital Signs: 04/16/23 13:16 04/16/23 13:16 04/16/23 13:35 Temperature 96 F L Temperature Source Temporal Pulse Rate 97 95 Respiratory Rate 18 16 Blood Pressure 152/123 H 152/123 H Blood Pressure Mean 132 132 Pulse Ox 90 90 90 Oxygen Delivery Method Nasal Cannula Nasal Cannula Room Air Oxygen Flow Rate (L/min) 4 4 04/16/23 15:15 Temperature Temperature Source Pulse Rate 93 Respiratory Rate 22 H Blood Pressure 118/92 H Blood Pressure Mean 100 Pulse Ox 93 Oxygen Delivery Method Nasal Cannula Oxygen Flow Rate (L/min) 5 Weight Weight: 314 lb 6.067 oz Body Mass Index (BMI) 50.7 Physical Exam Narrative Physical Examination: General: Awakens to stimuli, intermittently alert, oriented to self but still encephalopathic however she is improving, seated upright in the ED bed, no acute distress. Skin: Normal color, normal turgor, no icterus, no cyanosis except for occasional staged ecchymoses, venous stasis skin changes to bilateral lower extremities, intertrigo. HEENT: AT/NC, EOMI, PERRLA, mildly dry MM, significant facial hair evident, unable to discern carotid bruit or JVD given significant thickened neck. Lungs: Extremely distant breath sounds, diminished, greater bases, occasional end expiratory wheeze, mildly increased respiratory rate but no distress, no appreciated rales or rhonchi. Heart: Mildly tachycardic with regular rhythm; no gallop, rub audible. Abdomen: Soft, morbidly obese, distant bowel sounds, unable to discern distention or HSM given habitus. Extremities: No cyanosis, no clubbing, significant distal peripheral edema, chronic Neurological: Awakens to stimuli, intermittently alert, oriented to self but still encephalopathic however she is improving, seated upright in the ED bed, no acute distress, cognitive function not baseline intact but improving since initial arrival, pupils equally reactive to light and accommodation, cranial nerves grossly normal, moving all 4 extremities, strength severely globally decreased secondary to acute presentation compounded by underlying comorbidities especially significant morbidly obese habitus. Psychiatric: Affect appears mildly agitated, does have underlying history of depression and anxiety. Results Lab / Micro Data 04/16/23 13:25 04/16/23 13:25 Labs: Laboratory Results - last 24 hr 04/16/23 13:25: WBC 13.1 H, RBC 3.74 L, Hgb 10.1 L, Hct 35.5 L, MCV 94.9, MCH 27.0, MCHC 28.5 L, RDW Std Deviation 48.2 H, RDW Coeff of David 14.1, Plt Count 327, MPV 11.1, Immature Gran % (Auto) 4.100 H, Neut % (Auto) 72.5 H, Lymph % (Auto) 13.8 L, Nobles % (Auto) 8.3, Eos % (Auto) 0.8, Baso % (Auto) 0.5, Absolute Neuts (auto) 9.5 H, Absolute Lymphs (auto) 1.80, Nucleated RBC % 0.2, Sodium 136, Potassium 4.7, Chloride 94 L, Carbon Dioxide 37.0 H, Anion Gap 5, BUN 37 H, Creatinine 5.65 H, Estim Creat Clear Calc 9.79, Est GFR (MDRD) Af Amer 10 L, Est GFR (MDRD) Non-Af 8 L, BUN/Creatinine Ratio 6.5 L, Glucose 133 H, Calcium 10.0, Total Bilirubin 0.20, AST 14 L, ALT 14, Alkaline Phosphatase 86, Troponin I High Sens 18, Total Protein 6.8, Albumin 2.5 L, Globulin 4.3 H, Albumin/Globulin Ratio 0.6 L 04/16/23 13:40: Lactic Acid 0.8 04/16/23 15:15: Urine Color Yellow, Urine Clarity Sl. Cloudy, Urine pH 5.0, Ur Specific [place] 1.025, Urine Protein 100 H, Urine Glucose (UA) 50 H, Urine Ketones 5 H, Urine Occult Blood 10 H, Urine Nitrite Negative, Urine Bilirubin 1 H, Urine Urobilinogen Normal, Ur Leukocyte Esterase 100 H, Urine RBC 0-5 SEEN, Urine WBC 10-25 SEEN, Ur Squamous Epith Cells 0-5 SEEN, Urine Bacteria 1+, Hyaline Casts 0-5 SEEN, Urine Mucus 2+ Micro: Microbiology 04/16/23 13:37 Mucosa - Nose SARS-CoV-2, Influenza & RSV (PCR) - Final RSV ABG Data ABG results: ABG 04/16/23 15:30 Specimen Type MAXIM Sample Site Not entered VBG pH 7.35 VBG pO2 48 H VBG HCO3 33 H VBG Total CO2 35 H VBG O2 Sat (Calc) 80 H VBG Base Excess 7 H POC Mix VBG pCO2 Pt Tmp 59.4 H O2 Delivery Device Cannula Rhythm Strip Rhythm Strip: Sinus Rhythm Rate: 96 Ectopy: PVC(s) Imagaing Radiology Impression Brain CT 04/16/23 13:29 IMPRESSION: 1. Markedly limited examination due to significant artifacts. 2. No acute intracranial process. 3. Pansinusitis. 4. If symptoms persist, follow-up exam or MRI of the brain is recommended. Electronically Signed: Azar Martinez MD at 14:43 EST Reading Location ID and State: [address] [place] [address] Tel , Service support , Chest X-Ray 04/16/23 14:18 IMPRESSION: Overall, no significant change since previous exam. Electronically Signed: Azar Martinez MD at 14:53 EST , Assessment & Plan Assessment/Plan (1) RSV bronchitis: PLAN: Plan The patient is a 62 y/o F w/ PMHx: Morbid Obesity, HFrEF, HTN, HLD, Chronic anemia, Anxiety and Deprssion, Chronic pain syndrome, Chronic Hypoxic Respiratory Failure (2-3L NC) with COPD/Asthma, GERD w/ PUD, Hx TIA, Allergic rhinitis, MARISOL on BIPAP q HS who presents to the [facility] ED on 04/16/22 from her SNF secondary to increasing confusion, lethargy, notable cough and recent wheezing with recent poor oral intake over the last 36-48 hours prompting ED transition for evaluation. #1. Acute Encephalopathy secondary to Acute on Chronic Hypoxic Respiratory Failure secondary to Acute RSV Viral Syndrome/Bronchitis with associated Acute on Chronic COPD/Asthma Exacerbation and #2, complicated by #3: Will admit to PCU, maintain on oxygen with wean as tolerated to home oxygen supplementation, maintain on IV solumedrol with temporary hold on home chronic oral regimen, continue ATC duonebs, PRN albuterol, HOB, IS parameters w/ pending sputum cultures and urine antigens to be cautious, if worsening may repeat CXR and consider addition of abx for superimposed bacterial component as well as potential consider. Procalcitonin requested. Bld cx x 2 obtained in the ED. PT/OT/CM consulted for discharge planning. #2. Possible Acute Complicated Urinary Tract Infection: UA upon ED evaluation mildly remarkable, pending UCx, continue judicious IVFs, monitor I/Os, continue IV Rocephin initiated in the ED and tolerated w/ transition as able pending sensitivities and speciation. Bld cx x 2 obtained in the ED. #3. Acute kidney injury: Secondary to acute presentation as noted. Admission BUN/Cr 37/5.65, prior baseline creatinine noted to be 0.6-0.9, most recently noted 03/08/2023 creatinine 0.99. Will judiciously hydrate given underlying HF history, hold nephrotoxic medications and repeat chemistry in AM. If no improvement would plan FeNa and renal ultrasound assessment. #4. HFrEF: 05/05/2022 echocardiogram with EF 55 to 60%, difficult visualization/TDS. Patient with reported aspirin allergy, will continue statin therapy, holding Lasix and losartan given acute kidney rate as noted newly hydrating, not on beta- rome therapy per current list. #5. Chronic anemia, normocytic: Admission hemoglobin 10.1, MCV 94.9, hemoglobin baseline appears 9-10 range, stable, continue to trend. #6. Hypertension: Given significant ZONIA hold patient home Lasix and losartan, as needed IV hydralazine in interim. #7. Hyperlipidemia: Will continue patient on statin therapy. #8. Allergic rhinitis: Will continue montelukast, fluticasone home regimen. #9. Anxiety and depression: We will temporally hold home psychiatric regimen given significant ZONIA, resume once function appropriate #10. Hyperlipidemia: We will continue patient on statin therapy. #11. GERD with PUD: We will continue patient on PPI. #12. Morbid Obesity: Weight loss and lifestyle changes encouraged. #13. MARISOL: BiPAP nightly. #14. DVT Prophylaxis: Heparin. #15. CODE status: Patient Full Code status per facility skilled paperwork. Charges/Coding Visit Charges Inpatient E&M: 38903 Init Hosp L3 04/16/231930 <Electronically signed by lEizabeth Choe MD> Cosigner Signature (if applicable): CC: Dr. Elizabeth Choe MD; Sepideh Patterson MD~ Signed [facility] Work Phone: 1(336) 500-897401-08-2024 Discharge summary Author Anatoly Morton [facility] April 16, 2023 4:45pm Note Date/Time April 16, 2023 1: 41pm [facility] Medical Records Department [address] [place] [address] Emergency Department Summary 04/16/23 MR#: [id number] Acct: [id number] Name: HE LAUREANO Rep #:[id number] : 1960 62 From: Anatoly Morton MD PCP: Sepideh Patterson MD Status:REG ER Location: ED HPI History of Present Illness Chief Complaint: Alt LOC Detail of Chief Complaint: Currently decreased mental status and hypoxic. Informant: patient Onset/Context/Timing Onset: Today Context: Gradual Onset Timing: Continuous Narrative Narrative: 62-year-old female history of TIA, CHF, COPD and anemia. Presents with cough, hypoxia and decreased mental status. Patient is a limited informant. 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 deficits Seasonal allergies TIA (transient ischemic attack) UTI (urinary tract infection) Vitamin D deficiency Home Medications amitriptyline 25 mg tablet 25 mg PO QODAY DEPRESSION 05/03/22 [History Last Taken 04/15/23] atorvastatin 20 mg tablet 20 mg PO QHS CHOLESTEROL 05/03/22 [History Last Taken 04/15/23] cyclobenzaprine 10 mg tablet 10 mg PO TID MUSCLE SPASMS 05/03/22 [History Last Taken 04/16/23] famotidine 20 mg tablet 20 mg PO QHS GERD 05/03/22 [History Last Taken 04/15/23] fluticasone propionate 50 mcg/actuation nasal spray,suspension 2 spray intranasal BID PRN NASAL CONGESTION 05/03/22 [History Last Taken 05/28/22] losartan 50 mg tablet 50 mg PO DAILY BLOOD PRESSURE 05/03/22 [History Last Taken 04/16/23] montelukast 10 mg tablet 10 mg PO DAILY ALLERGIES 05/03/22 [History Last Taken 04/16/23] omeprazole 20 mg tablet,delayed release 20 mg PO DAILY GERD 05/03/22 [History Last Taken 04/16/23] roflumilast 500 mcg tablet (Daliresp) 500 mcg PO DAILY ASTHMA 05/03/22 [History Last Taken 04/16/23] sertraline 100 mg tablet (Zoloft) 100 mg PO QHS DEPRESSION 05/03/22 [History Last Taken 04/16/23] dicyclomine 10 mg capsule 10 mg PO 4X/DAY IRRITABLE BOWELS #1 cap 05/05/22 [Rx Last Taken 04/16/23] furosemide 40 mg tablet 40 mg PO DAILY FLUID #30 tabs 05/30/22 [Rx Last Taken 04/16/23] albuterol sulfate 90 mcg/actuation aerosol inhaler 2 puff inhalation Q2H PRN SOB09/08/22 [History Last Taken 04/12/23] cholecalciferol (vitamin D3) 50 mcg (2,000 unit) tablet 50 mcg PO DAILY SUPPLEMENT 04/16/23 [History Last Taken 04/16/23] loperamide 2 mg capsule (Imodium A-D) 2 mg PO Q8H PRN DIARRHEA 04/16/23 [History Last Taken 04/09/23] prednisone 10 mg tablet 10 mg PO DAILY COPD 04/16/23 [History Last Taken 04/16/23] sertraline 50 mg tablet 50 mg PO DAILY DEPRESSION 04/16/23 [History Last Taken 04/16/23] spironolactone 25 mg tablet 12.5 mg PO DAILY BLOOD PRESSURE 04/16/23 [History Last Taken 04/15/23] Allergy/AdvReac Type Severity Reaction Status Date / Time aspirin Allergy Other Verified 09/08/22 00:15 black pepper [pepper] Allergy Other Verified 09/08/22 00:15 coconut Allergy Other Verified 09/08/22 00:15 codeine Allergy Other Verified 09/08/22 00:15 ibuprofen Allergy Other Verified 09/08/22 00:15 Influenza Virus Vaccines Allergy Other Verified 09/08/22 00:15 Penicillins Allergy Anaphylaxis Verified 09/08/22 00:15 rice Allergy Other Verified 09/08/22 00:15 tetanus and diphtheria Allergy Other Verified 09/08/22 00:15 toxoids Tetanus Vaccines and Toxoid Allergy Other Verified 09/08/22 00:15 Family History Other CAD (coronary artery disease) COPD (chronic obstructive pulmonary disease) Hypertension Social History housing: assisted Smoking Status: Former smoker alcohol intake: never substance use type: does not use ROS ROS ED ROS Narrative Cough. Patient is a limited informant. Review of Systems ROS Unobtainable: due to mental status EXAM Physical Exam Narrative Exam Narrative: 62-year-old female vital signs are stable on 4 L her pulse ox is only 90%. She is hypoxic. Patient is afebrile. She does not look septic or toxic she does look dehydrated. HEENT exam eyes are open. Dry mucous membranes. No trauma to her head or face. Neck nontender no lymphadenopathy. No meningismus. Lungs clear to auscultation bilaterally. Diminished in both bases due to her body habitus. Heart rate about 95 no appreciable murmur. Abdomen morbidly obese but soft, no peritoneal signs. Nontender. Moving all 4 extremities. Nontender. No edema. Calves are nontender. No cords. Neurologically she is awake. Her eyes are open. She is answering questions. At times she seems confused. She does follow limited commands. Const Vital Signs: 04/16/23 13:16 04/16/23 13:16 04/16/23 13:35 Temperature 96 F L Temperature Source Temporal Pulse Rate 97 95 Respiratory Rate 18 16 Blood Pressure 152/123 H 152/123 H Blood Pressure Mean 132 132 Pulse Ox 90 90 90 Oxygen Delivery Method Nasal Cannula Nasal Cannula Room Air Oxygen Flow Rate (L/min) 4 4 04/16/23 15:15 Temperature Temperature Source Pulse Rate 93 Respiratory Rate 22 H Blood Pressure 118/92 H Blood Pressure Mean 100 Pulse Ox 93 Oxygen Delivery Method Nasal Cannula Oxygen Flow Rate (L/min) 5 Positive well nourished, well developed, obese, alert and no apparent distress; Negative for cachectic, contractures, unkempt, oriented x3 or average body habitus General Appearance ED: active, cooperative, comfortable and well developed; Negative for unkempt, cachectic or contractures Orientation / Consciousness: awake, oriented to person and oriented to place; Negative for oriented to time Nutritional Appearance: obese; Negative for cachectic HEENT Reports normocephalic and head/scalp atraumatic HEENT Narrative: Dry mucous membranes. normocephalic and normal to inspection Face and Sinus: normal facial exam Eyes PERRL, EOMs intact bilaterally, conjunctivae normal and no scleral icterus General Eye ED: Yes normal appearance of both eyes Neck full ROM, No nuchal rigidity, no lymphadenopathy, supple, no meningeal signs and no JVD General: normal visual inspection Lymph Lymphatic: no lymphadenopathy noted and no lymphedema noted; Negative for lymphedema or lymphadenopathy Chest Wall inspection of chest normal and palpation of chest normal Resp normal respiratory effort, normal air movement, no retractions, no use of accessory muscles and clear to auscultation bilaterally Resp Narrative: Diminished in both bases. Cardio regular rate, regular rhythm, S1 normal heart sound, S2 normal heart sound and no murmurs Rate: regular rate Rhythm: regular rhythm GI normal to inspection, nondistended, normoactive bowel sounds, soft to palpation, non-tender, non-distended, no masses and no bruits GI Narrative: Morbidly obese. No peritoneal signs. Palpation: soft; Negative for firm, tender or guarding Extremity normal to inspection, full ROM, normal capillary refill, no joint enlargement, no clubbing, cyanosis or edema, no calf tenderness and no pedal edema Neuro No oriented x3, CN's II-XII intact bilaterally, moves all extremities and no focal motor deficits Sensorium / Orientation: awake, alert, oriented to person and oriented to place Meningeal Signs: no meningeal signs Speech: speech normal Motor Exam: strength 5/5 throughout Psych mental status grossly normal, thought process normal, cooperative, affect normal, speech normal and activity/motor behavior normal Appearance: Negative for unkempt Attitude: calm and engaged Activity / Motor Behavior: appropriate eye contact Speech: normal speech Mood & Affect: euthymic mood Thought Process: normal thought process Thought Content: normal thought content Skin no rashes or lesions noted, no wounds, no jaundice, no petechiae and no mottling MDM MDM MDM Narrative Medical decision making narrative: 62-year-old female with morbid obesity and COPD with chronic 2 to 3 L of oxygen. Today had increased confusion at the assisted and was requiring additional oxygen. I spoke to her nurse at [facility]. History & Record Review Discussion w/independent historian: Patient Additional record(s) reviewed:: Prior inpatient record, Prior outpatient record, Prior ED visit and Prior labs Lab Data Attestation: I reviewed the patient's lab results. Lab results narrative: CBC shows a white count 13.1. H&H of 10.1 and 35. Platelets 327. Electrolytes show a gap of 5. BUN of 37 creatinine 5.65. She has a history of chronic kidney disease. Glucose 133. Lactic acid 0.8. Liver enzymes unremarkable. Urinalysis shows 10-25 no epithelial cells no night + 1+ bacteria. Urine culture will be sent. Venous blood gas shows a pH of 7.35., pCO2 59, pO2 48, sat 80% again a VBG. Labs: Laboratory Results - last 24 hr 04/16/23 04/16/23 04/16/23 13:25 13:40 15:15 WBC 13.1 H RBC 3.74 L Hgb 10.1 L Hct 35.5 L MCV 94.9 MCH 27.0 MCHC 28.5 L RDW Std Deviation 48.2 H RDW Coeff of David 14.1 Plt Count 327 MPV 11.1 Immature Gran % (Auto) 4.100 H Neut % (Auto) 72.5 H Lymph % (Auto) 13.8 L Nobles % (Auto) 8.3 Eos % (Auto) 0.8 Baso % (Auto) 0.5 Absolute Neuts (auto) 9.5 H Absolute Lymphs (auto) 1.80 Nucleated RBC % 0.2 Sodium 136 Potassium 4.7 Chloride 94 L Carbon Dioxide 37.0 H Anion Gap 5 BUN 37 H Creatinine 5.65 H Estim Creat Clear Calc 9.79 Est GFR (MDRD) Af Amer 10 L Est GFR (MDRD) Non-Af 8 L BUN/Creatinine Ratio 6.5 L Glucose 133 H Lactic Acid 0.8 Calcium 10.0 Total Bilirubin 0.20 AST 14 L ALT 14 Alkaline Phosphatase 86 Troponin I High Sens 18 Total Protein 6.8 Albumin 2.5 L Globulin 4.3 H Albumin/Globulin Ratio 0.6 L Urine Color Yellow Urine Clarity Sl. Cloudy Urine pH 5.0 Ur Specific [place] 1.025 Urine Protein 100 H Urine Glucose (UA) 50 H Urine Ketones 5 H Urine Occult Blood 10 H Urine Nitrite Negative Urine Bilirubin 1 H Urine Urobilinogen Normal Ur Leukocyte Esterase 100 H Urine RBC 0-5 SEEN Urine WBC 10-25 SEEN Ur Squamous Epith Cells 0-5 SEEN Urine Bacteria 1+ Hyaline Casts 0-5 SEEN Urine Mucus 2+ ABG Data ABG results: ABG 04/16/23 15:30 Specimen Type MAXIM Sample Site Not entered VBG pH 7.35 VBG pO2 48 H VBG HCO3 33 H VBG Total CO2 35 H VBG O2 Sat (Calc) 80 H VBG Base Excess 7 H POC Mix VBG pCO2 Pt Tmp 59.4 H O2 Delivery Device Cannula Radiography Chest X-Ray - ED: 1 View, Read by ED Physician, Read by Radiologist, Lungs, Mediastinum, Bony Structures and Chronic Changes Diagnostic Testing: Clinical Impression(s) from Imaging Studies Brain CT 04/16/23 13:29 IMPRESSION: 1. Markedly limited examination due to significant artifacts. 2. No acute intracranial process. 3. Pansinusitis. 4. If symptoms persist, follow-up exam or MRI of the brain is recommended. Electronically Signed: Azar Martinez MD at 14:43 EST , Chest X-Ray 04/16/23 14:18 IMPRESSION: Overall, no significant change since previous exam. Electronically Signed: Azar Martinez MD at 14:53 EST , Chest x-ray portable limited film due to the patient's body habitus. Unchanged from prior. No obvious acute abnormalities but limited. Rhythm Strip Rhythm Strip: Sinus Rhythm Rate: 96 Ectopy: PVC(s) EKG Initial EKG: Attestation: I personally reviewed and interpreted this EKG as follows: Interpretation: Sinus Rhythm and No Acute Injury Pattern Comments: Sinus rhythm rate of 96. Occasional PVCs. No acute sign of NV or ischemia. Discharge Plan Dx/Rx/DC Orders Clinical Impression: Acute kidney injury, UTI (urinary tract infection), RSV bronchitis, Morbid obesity, Altered level of consciousness, Hypoxia Disposition Disposition: Acute Care Hospital [facility] What to do if you have Problems For any increased pain, shortness of breath, bleeding, nausea or vomiting, chest pain, or any unexpected problems, contact your Primary Care Provider. Call [facility] ([phone]) or report to the closest Emergency Room. Call 911 if necessary. 04/16/23 1645 <Electronically signed by Anatoly Morton MD> Cosigner Signature (if applicable): CC: Sepideh Patterson MD ~ Signed [facility] Work Phone: 1([phone] 551-394401-08-2024 Discharge summary Author Anatoly Morton [facility] April 16, 2023 4:45pm Note Date/Time April 16, 2023 1: 41pm [facility] Medical Records Department [address] [place] [address] Emergency Department Summary 04/16/23 MR#: [id number] Acct: [id number] Name: HE LAUREANO Rep #:[id number] : 1960 62 From: Anatoly Morton MD PCP: Sepideh Patterson MD Status:REG ER Location: ED HPI History of Present Illness Chief Complaint: Alt LOC Detail of Chief Complaint: Currently decreased mental status and hypoxic. Informant: patient Onset/Context/Timing Onset: Today Context: Gradual Onset Timing: Continuous Narrative Narrative: 62-year-old female history of TIA, CHF, COPD and anemia. Presents with cough, hypoxia and decreased mental status. Patient is a limited informant. 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 deficits Seasonal allergies TIA (transient ischemic attack) UTI (urinary tract infection) Vitamin D deficiency Home Medications amitriptyline 25 mg tablet 25 mg PO QODAY DEPRESSION 05/03/22 [History Last Taken 04/15/23] atorvastatin 20 mg tablet 20 mg PO QHS CHOLESTEROL 05/03/22 [History Last Taken 04/15/23] cyclobenzaprine 10 mg tablet 10 mg PO TID MUSCLE SPASMS 05/03/22 [History Last Taken 04/16/23] famotidine 20 mg tablet 20 mg PO QHS GERD 05/03/22 [History Last Taken 04/15/23] fluticasone propionate 50 mcg/actuation nasal spray,suspension 2 spray intranasal BID PRN NASAL CONGESTION 05/03/22 [History Last Taken 05/28/22] losartan 50 mg tablet 50 mg PO DAILY BLOOD PRESSURE 05/03/22 [History Last Taken 04/16/23] montelukast 10 mg tablet 10 mg PO DAILY ALLERGIES 05/03/22 [History Last Taken 04/16/23] omeprazole 20 mg tablet,delayed release 20 mg PO DAILY GERD 05/03/22 [History Last Taken 04/16/23] roflumilast 500 mcg tablet (Daliresp) 500 mcg PO DAILY ASTHMA 05/03/22 [History Last Taken 04/16/23] sertraline 100 mg tablet (Zoloft) 100 mg PO QHS DEPRESSION 05/03/22 [History Last Taken 04/16/23] dicyclomine 10 mg capsule 10 mg PO 4X/DAY IRRITABLE BOWELS #1 cap 05/05/22 [Rx Last Taken 04/16/23] furosemide 40 mg tablet 40 mg PO DAILY FLUID #30 tabs 05/30/22 [Rx Last Taken 04/16/23] albuterol sulfate 90 mcg/actuation aerosol inhaler 2 puff inhalation Q2H PRN SOB09/08/22 [History Last Taken 04/12/23] cholecalciferol (vitamin D3) 50 mcg (2,000 unit) tablet 50 mcg PO DAILY SUPPLEMENT 04/16/23 [History Last Taken 04/16/23] loperamide 2 mg capsule (Imodium A-D) 2 mg PO Q8H PRN DIARRHEA 04/16/23 [History Last Taken 04/09/23] prednisone 10 mg tablet 10 mg PO DAILY COPD 04/16/23 [History Last Taken 04/16/23] sertraline 50 mg tablet 50 mg PO DAILY DEPRESSION 04/16/23 [History Last Taken 04/16/23] spironolactone 25 mg tablet 12.5 mg PO DAILY BLOOD PRESSURE 04/16/23 [History Last Taken 04/15/23] Allergy/AdvReac Type Severity Reaction Status Date / Time aspirin Allergy Other Verified 09/08/22 00:15 black pepper [pepper] Allergy Other Verified 09/08/22 00:15 coconut Allergy Other Verified 09/08/22 00:15 codeine Allergy Other Verified 09/08/22 00:15 ibuprofen Allergy Other Verified 09/08/22 00:15 Influenza Virus Vaccines Allergy Other Verified 09/08/22 00:15 Penicillins Allergy Anaphylaxis Verified 09/08/22 00:15 rice Allergy Other Verified 09/08/22 00:15 tetanus and diphtheria Allergy Other Verified 09/08/22 00:15 toxoids Tetanus Vaccines and Toxoid Allergy Other Verified 09/08/22 00:15 Family History Other CAD (coronary artery disease) COPD (chronic obstructive pulmonary disease) Hypertension Social History housing: assisted Smoking Status: Former smoker alcohol intake: never substance use type: does not use ROS ROS ED ROS Narrative Cough. Patient is a limited informant. Review of Systems ROS Unobtainable: due to mental status EXAM Physical Exam Narrative Exam Narrative: 62-year-old female vital signs are stable on 4 L her pulse ox is only 90%. She is hypoxic. Patient is afebrile. She does not look septic or toxic she does look dehydrated. HEENT exam eyes are open. Dry mucous membranes. No trauma to her head or face. Neck nontender no lymphadenopathy. No meningismus. Lungs clear to auscultation bilaterally. Diminished in both bases due to her body habitus. Heart rate about 95 no appreciable murmur. Abdomen morbidly obese but soft, no peritoneal signs. Nontender. Moving all 4 extremities. Nontender. No edema. Calves are nontender. No cords. Neurologically she is awake. Her eyes are open. She is answering questions. At times she seems confused. She does follow limited commands. Const Vital Signs: 04/16/23 13:16 04/16/23 13:16 04/16/23 13:35 Temperature 96 F L Temperature Source Temporal Pulse Rate 97 95 Respiratory Rate 18 16 Blood Pressure 152/123 H 152/123 H Blood Pressure Mean 132 132 Pulse Ox 90 90 90 Oxygen Delivery Method Nasal Cannula Nasal Cannula Room Air Oxygen Flow Rate (L/min) 4 4 04/16/23 15:15 Temperature Temperature Source Pulse Rate 93 Respiratory Rate 22 H Blood Pressure 118/92 H Blood Pressure Mean 100 Pulse Ox 93 Oxygen Delivery Method Nasal Cannula Oxygen Flow Rate (L/min) 5 Positive well nourished, well developed, obese, alert and no apparent distress; Negative for cachectic, contractures, unkempt, oriented x3 or average body habitus General Appearance ED: active, cooperative, comfortable and well developed; Negative for unkempt, cachectic or contractures Orientation / Consciousness: awake, oriented to person and oriented to place; Negative for oriented to time Nutritional Appearance: obese; Negative for cachectic HEENT Reports normocephalic and head/scalp atraumatic HEENT Narrative: Dry mucous membranes. normocephalic and normal to inspection Face and Sinus: normal facial exam Eyes PERRL, EOMs intact bilaterally, conjunctivae normal and no scleral icterus General Eye ED: Yes normal appearance of both eyes Neck full ROM, No nuchal rigidity, no lymphadenopathy, supple, no meningeal signs and no JVD General: normal visual inspection Lymph Lymphatic: no lymphadenopathy noted and no lymphedema noted; Negative for lymphedema or lymphadenopathy Chest Wall inspection of chest normal and palpation of chest normal Resp normal respiratory effort, normal air movement, no retractions, no use of accessory muscles and clear to auscultation bilaterally Resp Narrative: Diminished in both bases. Cardio regular rate, regular rhythm, S1 normal heart sound, S2 normal heart sound and no murmurs Rate: regular rate Rhythm: regular rhythm GI normal to inspection, nondistended, normoactive bowel sounds, soft to palpation, non-tender, non-distended, no masses and no bruits GI Narrative: Morbidly obese. No peritoneal signs. Palpation: soft; Negative for firm, tender or guarding Extremity normal to inspection, full ROM, normal capillary refill, no joint enlargement, no clubbing, cyanosis or edema, no calf tenderness and no pedal edema Neuro No oriented x3, CN's II-XII intact bilaterally, moves all extremities and no focal motor deficits Sensorium / Orientation: awake, alert, oriented to person and oriented to place Meningeal Signs: no meningeal signs Speech: speech normal Motor Exam: strength 5/5 throughout Psych mental status grossly normal, thought process normal, cooperative, affect normal, speech normal and activity/motor behavior normal Appearance: Negative for unkempt Attitude: calm and engaged Activity / Motor Behavior: appropriate eye contact Speech: normal speech Mood & Affect: euthymic mood Thought Process: normal thought process Thought Content: normal thought content Skin no rashes or lesions noted, no wounds, no jaundice, no petechiae and no mottling MDM MDM MDM Narrative Medical decision making narrative: 62-year-old female with morbid obesity and COPD with chronic 2 to 3 L of oxygen. Today had increased confusion at the assisted and was requiring additional oxygen. I spoke to her nurse at [facility]. History & Record Review Discussion w/independent historian: Patient Additional record(s) reviewed:: Prior inpatient record, Prior outpatient record, Prior ED visit and Prior labs Lab Data Attestation: I reviewed the patient's lab results. Lab results narrative: CBC shows a white count 13.1. H&H of 10.1 and 35. Platelets 327. Electrolytes show a gap of 5. BUN of 37 creatinine 5.65. She has a history of chronic kidney disease. Glucose 133. Lactic acid 0.8. Liver enzymes unremarkable. Urinalysis shows 10-25 no epithelial cells no night + 1+ bacteria. Urine culture will be sent. Venous blood gas shows a pH of 7.35., pCO2 59, pO2 48, sat 80% again a VBG. Labs: Laboratory Results - last 24 hr 04/16/23 04/16/23 04/16/23 13:25 13:40 15:15 WBC 13.1 H RBC 3.74 L Hgb 10.1 L Hct 35.5 L MCV 94.9 MCH 27.0 MCHC 28.5 L RDW Std Deviation 48.2 H RDW Coeff of David 14.1 Plt Count 327 MPV 11.1 Immature Gran % (Auto) 4.100 H Neut % (Auto) 72.5 H Lymph % (Auto) 13.8 L Nobles % (Auto) 8.3 Eos % (Auto) 0.8 Baso % (Auto) 0.5 Absolute Neuts (auto) 9.5 H Absolute Lymphs (auto) 1.80 Nucleated RBC % 0.2 Sodium 136 Potassium 4.7 Chloride 94 L Carbon Dioxide 37.0 H Anion Gap 5 BUN 37 H Creatinine 5.65 H Estim Creat Clear Calc 9.79 Est GFR (MDRD) Af Amer 10 L Est GFR (MDRD) Non-Af 8 L BUN/Creatinine Ratio 6.5 L Glucose 133 H Lactic Acid 0.8 Calcium 10.0 Total Bilirubin 0.20 AST 14 L ALT 14 Alkaline Phosphatase 86 Troponin I High Sens 18 Total Protein 6.8 Albumin 2.5 L Globulin 4.3 H Albumin/Globulin Ratio 0.6 L Urine Color Yellow Urine Clarity Sl. Cloudy Urine pH 5.0 Ur Specific [place] 1.025 Urine Protein 100 H Urine Glucose (UA) 50 H Urine Ketones 5 H Urine Occult Blood 10 H Urine Nitrite Negative Urine Bilirubin 1 H Urine Urobilinogen Normal Ur Leukocyte Esterase 100 H Urine RBC 0-5 SEEN Urine WBC 10-25 SEEN Ur Squamous Epith Cells 0-5 SEEN Urine Bacteria 1+ Hyaline Casts 0-5 SEEN Urine Mucus 2+ ABG Data ABG results: ABG 04/16/23 15:30 Specimen Type MAXIM Sample Site Not entered VBG pH 7.35 VBG pO2 48 H VBG HCO3 33 H VBG Total CO2 35 H VBG O2 Sat (Calc) 80 H VBG Base Excess 7 H POC Mix VBG pCO2 Pt Tmp 59.4 H O2 Delivery Device Cannula Radiography Chest X-Ray - ED: 1 View, Read by ED Physician, Read by Radiologist, Lungs, Mediastinum, Bony Structures and Chronic Changes Diagnostic Testing: Clinical Impression(s) from Imaging Studies Brain CT 04/16/23 13:29 IMPRESSION: 1. Markedly limited examination due to significant artifacts. 2. No acute intracranial process. 3. Pansinusitis. 4. If symptoms persist, follow-up exam or MRI of the brain is recommended. Electronically Signed: Azar Martinez MD at 14:43 EST , Chest X-Ray 04/16/23 14:18 IMPRESSION: Overall, no significant change since previous exam. Electronically Signed: Azar Martinez MD at 14:53 EST , Chest x-ray portable limited film due to the patient's body habitus. Unchanged from prior. No obvious acute abnormalities but limited. Rhythm Strip Rhythm Strip: Sinus Rhythm Rate: 96 Ectopy: PVC(s) EKG Initial EKG: Attestation: I personally reviewed and interpreted this EKG as follows: Interpretation: Sinus Rhythm and No Acute Injury Pattern Comments: Sinus rhythm rate of 96. Occasional PVCs. No acute sign of NV or ischemia. Discharge Plan Dx/Rx/DC Orders Clinical Impression: Acute kidney injury, UTI (urinary tract infection), RSV bronchitis, Morbid obesity, Altered level of consciousness, Hypoxia Disposition Disposition: Acute Care Hospital [facility] What to do if you have Problems For any increased pain, shortness of breath, bleeding, nausea or vomiting, chest pain, or any unexpected problems, contact your Primary Care Provider. Call [facility] ([phone]) or report to the closest Emergency Room. Call 911 if necessary. 04/16/23 1645 <Electronically signed by Anatoly Morton MD> Cosigner Signature (if applicable): CC: Sepideh Patterson MD ~ Signed [facility] Work Phone: 1(755) 173-349210-12-2023 Discharge summary Author Reilly Serrano [facility] January 17, 2023 10:34pm Note Date/Time January 17, 2023 1 0:19pm [facility] Medical Records Department [address] [place] [address] Emergency Department Summary 01/17/23 MR#: [id number] Acct: [id number] Name: HE LAUREANO Rep #:[id number] : 1960 62 From: Reilly Serrano MD PCP: Sepideh Patterson MD Status:PRE ER Location: ED HPI History of Present Illness Chief Complaint: Hypertension Informant: patient and EMS Narrative Narrative: Patient resides in a assisted. She has been asymptomatic without any illness or injury lately including today. She states she and her roommate were having a good time, and they were dancing and joking around with each other whena nurse came in and checked her blood pressure and it was high at 252/150, for that reason she called EMS and had her brought to the emergency room. Pt was asymptomatic. According to nurse report from the assisted, she had high blood pressure and altered mental status which the patient vehemently denies. According to EMS, she was alert and oriented x4 with a blood pressure of 108/82. Patient states she really needs to urinate right now but otherwise has no symptoms. Furthermore she states that she remembers vomiting 2 hours ago, and then states "I think I know why; I had some Brandon-Aid with Southern comfort and then some tea with Southern comfort." PFSH PFSH Medical History Acute kidney failure with tubular necrosis Anemia Anxiety Chronic anemia Chronic pain Chronic respiratory failure with hypoxia COPD (chronic obstructive pulmonary disease) Depression Fibromyalgia GERD (gastroesophageal reflux disease) HFrEF (heart failure with reduced ejection fraction) HTN (hypertension) Hyperlipidemia Morbid obesity Obesity hypoventilation syndrome MARISOL (obstructive sleep apnea) Peptic ulcer disease Personal history of transient ischemic attack (TIA), and cerebral infarction without residual deficits Seasonal allergies TIA (transient ischemic attack) UTI (urinary tract infection) Vitamin D deficiency Home Medications acetaminophen 325 mg tablet 650 mg PO Q4H PRN PRN Pain 05/03/22 [History Last Taken 05/28/22] amitriptyline 25 mg tablet 25 mg PO QODAY DEPRESSION 05/03/22 [History Last Taken 05/26/22] atorvastatin 20 mg tablet 20 mg PO QHS CHOLESTEROL 05/03/22 [History Last Taken 05/27/22] cyclobenzaprine 10 mg tablet 10 mg PO TID Check with primary doctor 05/03/22 [History Last Taken 05/28/22] ergocalciferol (vitamin D2) 1,250 mcg (50,000 unit) capsule (Vitamin D2) 1,250 mcg PO SA SUPPLEMENT 05/03/22 [History Last Taken 05/27/22] famotidine 20 mg tablet 20 mg PO BID GERD 05/03/22 [History Last Taken 05/28/22] fluticasone propionate 50 mcg/actuation nasal spray,suspension 2 spray intranasal BID NASAL CONGESTION 05/03/22 [History Last Taken 05/28/22] lidocaine 4 % topical patch 1 patch topical DAILY PRN Pain 05/03/22 [History Last Taken 05/28/22] losartan 50 mg tablet 50 mg PO DAILY BLOOD PRESSURE 05/03/22 [History Last Taken 05/28/22] montelukast 10 mg tablet 10 mg PO DAILY ALLERGIES 05/03/22 [History Last Taken 05/28/22] omeprazole 20 mg tablet,delayed release 20 mg PO BID GERD 05/03/22 [History Last Taken 05/28/22] roflumilast 500 mcg tablet (Daliresp) 500 mcg PO DAILY ASTHMA 05/03/22 [History Last Taken 05/28/22] sertraline 100 mg tablet (Zoloft) 100 mg PO QHS DEPRESSION 05/03/22 [History Last Taken 05/27/22] tiotropium bromide 2.5 mcg/actuation mist for inhalation (Spiriva Respimat) 2 puff inhalation QHS ASTHMA 05/03/22 [History Last Taken 05/27/22] dicyclomine 10 mg capsule 10 mg PO 4X/DAY #1 cap 05/05/22 [Rx Last Taken 05/28/22] nystatin 100,000 unit/gram topical powder (Nyamyc) 1 applic topical TID affectedareas 05/14/22 [History Last Taken 05/28/22] gabapentin 300 mg capsule 300 mg PO BID NEUROPATHY 05/28/22 [History Last Taken 05/28/22] furosemide 40 mg tablet 40 mg PO DAILY #30 tabs 05/30/22 [Rx Last Taken Unknown] albuterol sulfate 90 mcg/actuation aerosol inhaler 2 puff inhalation Q2H PRN SOB09/08/22 [History Last Taken Unknown] prednisone 20 mg tablet 10 mg PO DAILY Check with primary doctor 09/08/22 [History Last Taken Unknown] cefdinir 300 mg capsule 300 mg PO Q12 3 days #0 caps 09/12/22 [Rx Last Taken Unknown] Allergy/AdvReac Type Severity Reaction Status Date / Time aspirin Allergy Other Verified 09/08/22 00:15 black pepper [pepper] Allergy Other Verified 09/08/22 00:15 coconut Allergy Other Verified 09/08/22 00:15 codeine Allergy Other Verified 09/08/22 00:15 ibuprofen Allergy Other Verified 09/08/22 00:15 Influenza Virus Vaccines Allergy Other Verified 09/08/22 00:15 Penicillins Allergy Anaphylaxis Verified 09/08/22 00:15 rice Allergy Other Verified 09/08/22 00:15 tetanus and diphtheria Allergy Other Verified 09/08/22 00:15 toxoids Tetanus Vaccines and Toxoid Allergy Other Verified 09/08/22 00:15 Family History Other CAD (coronary artery disease) COPD (chronic obstructive pulmonary disease) Hypertension Social History housing: assisted Smoking Status: Former smoker alcohol intake: never substance use type: does not use ROS ROS ED Constitutional Constitutional ED: Denies chills or fever(s) Eyes Eyes: Denies change in vision or diplopia ENT ENT ED: Denies rhinorrhea or sore throat Cardiovascular Cardiovascular: Denies chest pain or palpitations Respiratory/Chest Respiratory/Chest: Denies cough or dyspnea Gastrointestinal Gastrointestinal: Denies abdominal pain, diarrhea, nausea or vomiting Genitourinary Genitourinary ED: Denies dysuria or hematuria Musculoskeletal Musculoskeletal: Denies back pain or neck pain Integumentary Denies abscess or rash Neurologic Neurologic: Denies headache(s), paresthesias or weakness Psychiatric Psychiatric: Denies anxiety or suicidal thoughts EXAM Physical Exam Const Vital Signs: 01/17/23 22:03 Temperature 97.5 F L Temperature Source Temporal Pulse Rate 99 Respiratory Rate 26 H Blood Pressure 226/205 H Blood Pressure Mean 212 Pulse Ox 90 Oxygen Delivery Method Nasal Cannula Positive well nourished, well developed and obese General Appearance ED: well developed and NAD Nutritional Appearance: obese HEENT Reports moist mucous membranes normocephalic and atraumatic Eyes PERRL and EOMs intact bilaterally Neck full ROM and supple Resp normal respiratory effort and clear to auscultation bilaterally Cardio regular rate, regular rhythm and no murmurs GI non-tender and non-distended Auscultation: normoactive bowel sounds Palpation: soft Back/Spine no CVA tenderness General Back: other FROM Extremity normal to inspection General Extremety ED: Negative for edema, pulses abnormal or tenderness General Extremity: Negative for edema or pulses abnormal Neuro oriented x3, CN's II-XII intact bilaterally and no sensory deficits noted Sensorium / Orientation: awake and alert Motor Exam: strength 5/5 throughout Skin no rashes or lesions noted and no wounds MDM MDM MDM Narrative Medical decision making narrative: Patient is morbidly obese. We were doing an automatic blood pressure cuff on her wrist and it is coming up 226/205. The patient is asymptomatic. I had nursing do a manual it is 166/92. Patient states she had a little alcohol earlier, she states this is the first she had remembered or told anybody. I do not think she needs any type of emergent work-up right now her exam is very benign, and she will be sent back to the assisted and she is in agreement with that plan. Discharge Plan Triage Chief Complaint: Hypertension ED Provider: Reilly Serrano Dx/Rx/DC Orders Clinical Impression: Encounter for medical screening examination Instructions: ED Hypertension, Established Prescriptions: No Action losartan 50 mg Tablet 50 mg PO DAILY cyclobenzaprine 10 mg Tablet 10 mg PO TID acetaminophen 325 mg Tablet 650 mg PO Q4H PRN PRN (Reason: Pain) atorvastatin 20 mg Tablet 20 mg PO QHS lidocaine 4 % Adhesive Patch,Medicated 1 patch TOPICAL DAILY PRN (Reason: Pain) Rx Instructions: APPLY TO BOTH SHOULDERS sertraline [Zoloft] 100 mg Tablet 100 mg PO QHS famotidine 20 mg Tablet 20 mg PO BID amitriptyline 25 mg Tablet 25 mg PO QODAY montelukast 10 mg Tablet 10 mg PO DAILY ergocalciferol (vitamin D2) [Vitamin D2] 1,250 mcg (50,000 unit) Capsule 1,250 mcg PO SA fluticasone propionate 50 mcg/actuation [place],Suspension 2 spray INTRANASAL BID omeprazole 20 mg Tablet,Delayed Release (Dr/Ec) 20 mg PO BID roflumilast [Daliresp] 500 mcg Tablet 500 mcg PO DAILY Spiriva Respimat 2.5 mcg/actuation Mist 2 puff INHALATION QHS dicyclomine 10 mg Capsule 10 mg PO 4X/DAY Qty: 1 0RF nystatin [Nyamyc] 100,000 unit/gram powder 1 applic topical TID Protocol: *Topical Application Instructions APPLICATION INSTRUCTIONS: affected areas gabapentin 300 mg Capsule 300 mg PO BID furosemide 40 mg tablet 40 mg PO DAILY Qty: 30 0RF prednisone 20 mg tablet 10 mg PO DAILY albuterol sulfate 90 mcg/actuation Hfa Aerosol Inhaler 2 puff INHALATION Q2H PRN (Reason: SOB) cefdinir 300 mg Capsule 300 mg PO Q12 3 Days Qty: 0 0RF Primary Care Provider: Sepideh Patterson Referrals: Sepideh Patterson MD [Primary Care Provider] - 1-2 Days if not improving Activity Restrictions/Additional Instructions: Our automatic blood pressure cuff was reading 226/205 while our manual is 166/92. Likely inaccurate reading prior to being sent to the emergency department. Continue to monitor with manual if able. Disposition Disposition: Intermediate Facility What to do if you have Problems For any increased pain, shortness of breath, bleeding, nausea or vomiting, chestpain, or any unexpected problems, contact your Primary Care Provider. Call [facility] ([phone]) or report to the closest Emergency Room. Call 911 if necessary. 01/17/232233 <Electronically signed by Reilly Serrano MD> Cosigner Signature (if applicable): CC: Sepideh Patterson MD ~ Signed [facility] Work Phone: [phone] 429-926408-26-2023 Discharge summary Author Max Barber [facility] December 02, 2022 1:42am Note Date/Time December 02, 2022 1: 02am [facility] Medical Records Department [address] [place] [address] Emergency Department Summary 12/02/22 MR#: [id number] Acct: [id number] Name: HE LAUREANO Rep #:[id number] : 1960 62 From: Max Barber MD PCP: Sepideh Patterson MD Status:REG ER Location: ED HPI History of Present Illness Chief Complaint: Cold Sx Narrative Narrative: Patient will was talking to her roommate at the [facility], she became short of breath,they noticed her pulse ox was going down, they changed her oxygen source and sheimproved. She is now back to normal. She was brought here by EMS. She has no complaints. [facility] Medical History (Updated 12/02/22 @ 01:[address] Max Barber MD) Acute kidney failure with tubular necrosis Anemia Anxiety Chronic anemia Chronic pain Chronic respiratory failure with hypoxia COPD (chronic obstructive pulmonary disease) Depression Fibromyalgia GERD (gastroesophageal reflux disease) HFrEF (heart failure with reduced ejection fraction) HTN (hypertension) Hyperlipidemia Morbid obesity Obesity hypoventilation syndrome MARISOL (obstructive sleep apnea) Peptic ulcer disease Personal history of transient ischemic attack (TIA), and cerebral infarction without residual deficits Seasonal allergies TIA (transient ischemic attack) UTI (urinary tract infection) Vitamin D deficiency Home Medications acetaminophen 325 mg tablet 650 mg PO Q4H PRN PRN Pain 05/03/22 [History Last Taken 05/28/22] amitriptyline 25 mg tablet 25 mg PO QODAY DEPRESSION 05/03/22 [History Last Taken 05/26/22] atorvastatin 20 mg tablet 20 mg PO QHS CHOLESTEROL 05/03/22 [History Last Taken 05/27/22] cyclobenzaprine 10 mg tablet 10 mg PO TID Check with primary doctor 05/03/22 [History Last Taken 05/28/22] ergocalciferol (vitamin D2) 1,250 mcg (50,000 unit) capsule (Vitamin D2) 1,250 mcg PO SA SUPPLEMENT 05/03/22 [History Last Taken 05/27/22] famotidine 20 mg tablet 20 mg PO BID GERD 05/03/22 [History Last Taken 05/28/22] fluticasone propionate 50 mcg/actuation nasal spray,suspension 2 spray intranasal BID NASAL CONGESTION 05/03/22 [History Last Taken 05/28/22] lidocaine 4 % topical patch 1 patch topical DAILY PRN Pain 05/03/22 [History Last Taken 05/28/22] losartan 50 mg tablet 50 mg PO DAILY BLOOD PRESSURE 05/03/22 [History Last Taken 05/28/22] montelukast 10 mg tablet 10 mg PO DAILY ALLERGIES 05/03/22 [History Last Taken 05/28/22] omeprazole 20 mg tablet,delayed release 20 mg PO BID GERD 05/03/22 [History Last Taken 05/28/22] roflumilast 500 mcg tablet (Daliresp) 500 mcg PO DAILY ASTHMA 05/03/22 [History Last Taken 05/28/22] sertraline 100 mg tablet (Zoloft) 100 mg PO QHS DEPRESSION 05/03/22 [History Last Taken 05/27/22] tiotropium bromide 2.5 mcg/actuation mist for inhalation (Spiriva Respimat) 2 puff inhalation QHS ASTHMA 05/03/22 [History Last Taken 05/27/22] dicyclomine 10 mg capsule 10 mg PO 4X/DAY #1 cap 05/05/22 [Rx Last Taken 05/28/22] nystatin 100,000 unit/gram topical powder (Nyamyc) 1 applic topical TID affectedareas 05/14/22 [History Last Taken 05/28/22] gabapentin 300 mg capsule 300 mg PO BID NEUROPATHY 05/28/22 [History Last Taken 05/28/22] furosemide 40 mg tablet 40 mg PO DAILY #30 tabs 05/30/22 [Rx Last Taken Unknown] albuterol sulfate 90 mcg/actuation aerosol inhaler 2 puff inhalation Q2H PRN SOB09/08/22 [History Last Taken Unknown] prednisone 20 mg tablet 10 mg PO DAILY Check with primary doctor 09/08/22 [History Last Taken Unknown] cefdinir 300 mg capsule 300 mg PO Q12 3 days #0 caps 09/12/22 [Rx Last Taken Unknown] Allergy/AdvReac Type Severity Reaction Status Date / Time aspirin Allergy Other Verified 09/08/22 00:15 black pepper [pepper] Allergy Other Verified 09/08/22 00:15 coconut Allergy Other Verified 09/08/22 00:15 codeine Allergy Other Verified 09/08/22 00:15 ibuprofen Allergy Other Verified 09/08/22 00:15 Influenza Virus Vaccines Allergy Other Verified 09/08/22 00:15 Penicillins Allergy Anaphylaxis Verified 09/08/22 00:15 rice Allergy Other Verified 09/08/22 00:15 tetanus and diphtheria Allergy Other Verified 09/08/22 00:15 toxoids Tetanus Vaccines and Toxoid Allergy Other Verified 09/08/22 00:15 Family History Other CAD (coronary artery disease) COPD (chronic obstructive pulmonary disease) Hypertension Social History housing: assisted Smoking Status: Former smoker alcohol intake: never substance use type: does not use ROS ROS ED ROS Narrative Past medical history: Reviewed Medications: Reviewed Social history: Noncontributory Review of systems: All systems negative except as indicated General: No fever ENT: No upper airway congestion, normal voice Neck: No neck pain Cardiovascular: No chest pain Respiratory: Transient dyspnea as in HPI Gastrointestinal: No abdominal pain, nausea vomiting or diarrhea Genitourinary: No dysuria Musculoskeletal: Denies myalgias no difficulty with ambulation Skin: No rash Neurological: No memory loss, confusion or any focal weakness EXAM Physical Exam Narrative Exam Narrative: Physical exam General: Patient is comfortable, she is laughing and joking with the EKG tach as I walk into the room. Head: Normocephalic, Atraumatic Eyes: Conjunctiva not pale ENT: Moist mucous membranes Neck: Supple, Nontender, No lymphadenopathy Cardiovascular: Regular rate, Regular rhythm Respiratory: No distress, mostly clear breath sounds, somewhat difficult auscultation secondary to body habitus. Abdomen: Soft, Nontender, Nondistended Back: Nontender, Normal Inspection. Negative for: CVA tenderness Extremities: Nontender, No edema Skin: Normal color, No rash Neurological: Alert, Normal Strength, Normal Sensation Const Vital Signs: 12/02/22 00:39 12/02/22 00:58 12/02/22 00:59 Temperature 98.5 F 98.3 F Temperature Source Oral Temporal Pulse Rate 100 97 Respiratory Rate 18 19 H Respiratory Effort Normal Respiratory Pattern Normal Blood Pressure 158/135 H 158/135 H Blood Pressure Mean 142 142 Pulse Ox 94 94 Oxygen Delivery Method Nasal Cannula Nasal Cannula Oxygen Flow Rate (L/min) 4 4 MDM MDM MDM Narrative Medical decision making narrative: Chest x-ray read by me is nondiagnostic, she has a history of having nondiagnostic chest x-ray she cannot sit up straight. ED course: Patient is observed in the ED. She has a nondiagnostic chest x-ray however based on the history it is likely that she had an issue with her oxygen supply since she has been asymptomatic and her symptoms improved after her oxygen was changed at the [facility]. She appears well I will discharge her in stable condition. She does not meet criteria for admission. Lab Data Labs: Laboratory Results - last 24 hr 12/02/22 01:20 WBC 13.5 H RBC 3.70 L Hgb 10.1 L Hct 35.1 L MCV 94.9 MCH 27.3 MCHC 28.8 L RDW Std Deviation 50.3 H RDW Coeff of David 14.7 H Plt Count 272 MPV 11.3 Immature Gran % (Auto) 3.700 H Neut % (Auto) 65.5 Lymph % (Auto) 22.4 Nobles % (Auto) 6.8 Eos % (Auto) 1.0 Baso % (Auto) 0.6 Absolute Neuts (auto) 8.8 H Absolute Lymphs (auto) 3.01 Nucleated RBC % 0.1 Discharge Plan Triage Chief Complaint: Cold Sx ED Provider: Max Barber Dx/Rx/DC Orders Clinical Impression: Acute dyspnea, Dependence on continuous supplemental oxygen Instructions: ED Dyspnea Prescriptions: No Action losartan 50 mg Tablet 50 mg PO DAILY cyclobenzaprine 10 mg Tablet 10 mg PO TID acetaminophen 325 mg Tablet 650 mg PO Q4H PRN PRN (Reason: Pain) atorvastatin 20 mg Tablet 20 mg PO QHS lidocaine 4 % Adhesive Patch,Medicated 1 patch TOPICAL DAILY PRN (Reason: Pain) Rx Instructions: APPLY TO BOTH SHOULDERS sertraline [Zoloft] 100 mg Tablet 100 mg PO QHS famotidine 20 mg Tablet 20 mg PO BID amitriptyline 25 mg Tablet 25 mg PO QODAY montelukast 10 mg Tablet 10 mg PO DAILY ergocalciferol (vitamin D2) [Vitamin D2] 1,250 mcg (50,000 unit) Capsule 1,250 mcg PO SA fluticasone propionate 50 mcg/actuation [place],Suspension 2 spray INTRANASAL BID omeprazole 20 mg Tablet,Delayed Release (Dr/Ec) 20 mg PO BID roflumilast [Daliresp] 500 mcg Tablet 500 mcg PO DAILY Spiriva Respimat 2.5 mcg/actuation Mist 2 puff INHALATION QHS dicyclomine 10 mg Capsule 10 mg PO 4X/DAY Qty: 1 0RF nystatin [Nyamyc] 100,000 unit/gram powder 1 applic topical TID Protocol: *Topical Application Instructions APPLICATION INSTRUCTIONS: affected areas gabapentin 300 mg Capsule 300 mg PO BID furosemide 40 mg tablet 40 mg PO DAILY Qty: 30 0RF prednisone 20 mg tablet 10 mg PO DAILY albuterol sulfate 90 mcg/actuation Hfa Aerosol Inhaler 2 puff INHALATION Q2H PRN (Reason: SOB) cefdinir 300 mg Capsule 300 mg PO Q12 3 Days Qty: 0 0RF Primary Care Provider: Sepideh Patterson Referrals: Sepideh Patterson MD [Primary Care Provider] - 3-5 Days Disposition Disposition: Home, Self Care What to do if you have Problems For any increased pain, shortness of breath, bleeding, nausea or vomiting, chestpain, or any unexpected problems, contact your Primary Care Provider. Call [facility] ([phone]) or report to the closest Emergency Room. Call 911 if necessary. 12/02/22 0142 <Electronically signed by Max Barber MD> Cosigner Signature (if applicable): CC: Sepideh Patterson MD ~ Signed [facility] Work Phone: [phone]) 971-274706-06-[address] Lorenzo [facility] September 12, 2022 1:19pm Note Date/Time September 12, 2022 1:19p [facility] Medical Records Department [address] [place] [address] Discharge Summary 09/12/22 1315 MR#: [id number] Acct: [id number] Name: KYMBERLYHE Park Rep #:[id number] : 1960 61 From: Yomi solis MD PCP: Sepideh Patterson MD Status:ADM IN Location: [id number] Providers Date of Admission: 09/08/22 Primary Care Physician: Dr. Sepideh Patterson MD Consultations 09/08/22 03:43 Consult: Onc/Wound/link knitting machine operator Routine Comment: 09/08/22 14:31 Consult: Ceramics Machine Operator / Pulmonary Medicine Routine Consulting Provider: Pulmonary Medicine [facility] Reason for Consult: Acute respiratory failure EMERGENT Consult: Yes MD Notified: Yes Date Notified: 09/08/22 Time Notified: 12:45 Method of Notification: Text Reason For Visit: UTI Diagnosis Discharge Diagnosis (1) Chronic respiratory failure: Status: Chronic Code(s): J96.10 - Chronic respiratory failure, unspecified whether with hypoxia or hypercapnia Medications at Discharge Home Medications acetaminophen 325 mg tablet 650 mg PO Q4H PRN PRN Pain 05/03/22 amitriptyline 25 mg tablet 25 mg PO QODAY DEPRESSION 05/03/22 atorvastatin 20 mg tablet 20 mg PO QHS CHOLESTEROL 05/03/22 cyclobenzaprine 10 mg tablet 10 mg PO TID Check with primary doctor 05/03/22 ergocalciferol (vitamin D2) 1,250 mcg (50,000 unit) capsule (Vitamin D2) 1,250 mcg PO SA SUPPLEMENT 05/03/22 famotidine 20 mg tablet 20 mg PO BID GERD 05/03/22 fluticasone propionate 50 mcg/actuation nasal spray,suspension 2 spray intranasal BID NASAL CONGESTION 05/03/22 lidocaine 4 % topical patch 1 patch topical DAILY PRN Pain 05/03/22 losartan 50 mg tablet 50 mg PO DAILY BLOOD PRESSURE 05/03/22 montelukast 10 mg tablet 10 mg PO DAILY ALLERGIES 05/03/22 omeprazole 20 mg tablet,delayed release 20 mg PO BID GERD 05/03/22 roflumilast 500 mcg tablet (Daliresp) 500 mcg PO DAILY ASTHMA 05/03/22 sertraline 100 mg tablet (Zoloft) 100 mg PO QHS DEPRESSION 05/03/22 tiotropium bromide 2.5 mcg/actuation mist for inhalation (Spiriva Respimat) 2 puff inhalation QHS ASTHMA 05/03/22 dicyclomine 10 mg capsule 10 mg PO 4X/DAY #1 cap 05/05/22 nystatin 100,000 unit/gram topical powder (Nyamyc) 1 applic topical TID affectedareas 05/14/22 gabapentin 300 mg capsule 300 mg PO BID NEUROPATHY 05/28/22 furosemide 40 mg tablet 40 mg PO DAILY #30 tabs 05/30/22 albuterol sulfate 90 mcg/actuation aerosol inhaler 2 puff inhalation Q2H PRN SOB09/08/22 prednisone 20 mg tablet 10 mg PO DAILY Check with primary doctor 09/08/22 cefdinir 300 mg capsule 300 mg PO Q12 3 days #0 caps 09/12/22 Hospital Course Operations None Procedures None Summary of Care Provided Minutes Spent on Discharge: 38 Hospital Course: Per HPI: HE LAUREANO, is a 61 F who presents with reported rigors.-Going on for the past couple days.? Patient was also sent in because her pulse ox was lowin the 70s despite using 4 L of oxygen.? Patient is to be using a BiPAP at nightwhich she says she uses when she does not need the outlets otherwise she will use it so she can plug her phone and her fan.? In the ER, patient sats were in the 90s.? Patient was found to have a urinary tract infection and did receive ceftriaxone.? Her creatinine was elevated at 1.47, up from 0.54 from July 26.? Patient is breathing fine and did not require any additional oxygen beyond her 4L. Hospital Course: 1.? Acute cystitis with E. coli ? Patient admitted to regular nursing floor urine culture sent patient started on broad-spectrum antibiotic therapy With ceftriaxone ? 09/09/2022; urine and blood cultures pending ? 09/10/2022 urine cultures came back positive for E. coli sensitive to ceftriaxone switched to p.o. cefdinir ? 09/11/2022: Continue with cefdinir we will discuss with case management discharge planning ? 09/11/2022: We will do 3 more days of cefdinir to complete a 7-day course 2.? Acute kidney injury Patient baseline creatinine from 07/26/2022 was 0.54 creatinine on admission was 1.47 went up to 1.61 started on IV fluid with subsequent monitoring of electrolytes ordered ? 09/09/2022 kidney function back to baseline 3.? Acute metabolic encephalopathy ? Secondary to acute respiratory failure with significant hypercapnia neck ?09/11/2022: Appears to be resolved 4.? Acute on chronic hypoxic respiratory failure/obesity hypoventilation syndrome/COPD not in exacerbation ? Due to combination of sleep apnea and obesity hypoventilation syndrome patientwas transferred to the intensive care unit following deterioration in her mentalstatus placed on noninvasive ventilation BiPAP with consultation placed to pulmonary medicine ? 09/11/2022: She is maintaining her oxygen on 3 L nasal cannula we will continue with AVAPS when discharged to SNF, discussed with her that she needs to wear it both at night as well as whenever she naps 5.? Essential hypertension ? Did continue patient home medication 6.?Class III obesity with BMI of 63 ? Weight loss advised 7.GERD ? On PPI 8.? Depression ? Patient is on SSRI did continue Physical Exam Narrative General: Alert, oriented x3, Cooperative, No apparent distress HEENT: Atraumatic, PERRLA, EOMI, Normocephalic Oral: Moist Mucosa Neck: Supple, No JVD Lungs: Diminished, Normal air movement, No rhonchi, No wheeze, No rales Cardiovascular: Regular rate, Regular Rhythm, Normal S1, Normal S2, No murmurs Abdomen: Soft, Non Tender, Non-Distended, No Hepato-splenomegaly Extremities: No edema, Capillary Refill Less than 3 Seconds Skin: No rashes, No breakdown Musculoskeletal: No Tenderness to Palpation of Joints or Extremities Neurological: Motor Exam 5/5 strength throughout, Sensory exam intact to light touch and pain Psych/Mental Status: Normal affect Weight / BMI Weight Weight: 388 lb 7.272 oz Body Mass Index (BMI) 62.4 ABG / Lab / Microbiology Data Result Diagrams: 09/12/22 07:15 09/12/22 07:15 Laboratory: Laboratory Results - last 24 hr 09/12/22 07:15: WBC 6.9, RBC 3.71 L, Hgb 9.9 L, Hct 35.0 L, MCV 94.3, MCH 26.7 L, MCHC 28.3 L D, RDW Std Deviation 47.5 H, RDW Coeff of David 13.7, Plt Count 228,MPV 10.8, Immature Gran % (Auto) 3.900 H, Neut % (Auto) 44.8 L, Lymph % (Auto) 36.7, Nobles % (Auto) 11.0 H, Eos % (Auto) 2.7, Baso % (Auto) 0.9, Absolute Neuts (auto) 3.1, Absolute Lymphs (auto) 2.55, Nucleated RBC % 0 09/12/22 07:15: Sodium 140, Potassium 3.4 L, Chloride 99, Carbon Dioxide 45.0 H,Anion Gap -4 L, BUN 14, Creatinine 0.54 L, Estim Creat Clear Calc 103.71, Est GFR (MDRD) Af Amer 147, Est GFR (MDRD) Non-Af 122, BUN/Creatinine Ratio 25.9 H, Glucose 95, Calcium 9.9 Microbiology: Microbiology 09/08/22 21:20 Stool Enteric Bacteriology - Final 09/08/22 01:05 Urine, Clean Catch Urine Culture - Final Escherichia coli 09/08/22 01:32 Blood Culture (Wb) - Anticubital Left Blood Culture - Preliminary No growth in 48 hours. 09/08/22 00:48 Blood Culture (Wb) - Anticubital Left Blood Culture - Preliminary No growth in 48 hours. 09/08/22 21:20 Stool C. difficile GDH Antigen & Toxins - Final 09/08/22 21:20 Stool C. difficile DNA Amplification - Final 09/08/22 00:48 Nasal Secretion SARS-CoV-2 & FLU Antigen (Rapid) - Final Meaningful Use Info Meaningful Use Diagnoses (Choose all that apply): None applicable Discharge Plan Admission Admit Date/Time: 09/08/22 02:57 Attending Provider: Yomi Lorenzo Primary Care Provider: Sepideh Patterson Consulting Providers: Jayme Corea ; Otoniel Mei ; Hugo Templeton ; Pawel Oswald ; Aguila Merchant ; Yessica Morales NP ; Leanna Pascual Discharge Orders/Prescriptions Prescriptions: New cefdinir 300 mg Capsule 300 mg PO Q12 3 Days Qty: 0 0RF Continued losartan 50 mg Tablet 50 mg PO DAILY cyclobenzaprine 10 mg Tablet 10 mg PO TID acetaminophen 325 mg Tablet 650 mg PO Q4H PRN PRN (Reason: Pain) atorvastatin 20 mg Tablet 20 mg PO QHS lidocaine 4 % Adhesive Patch,Medicated 1 patch TOPICAL DAILY PRN (Reason: Pain) Rx Instructions: APPLY TO BOTH SHOULDERS sertraline [Zoloft] 100 mg Tablet 100 mg PO QHS famotidine 20 mg Tablet 20 mg PO BID amitriptyline 25 mg Tablet 25 mg PO QODAY montelukast 10 mg Tablet 10 mg PO DAILY ergocalciferol (vitamin D2) [Vitamin D2] 1,250 mcg (50,000 unit) Capsule 1,250 mcg PO SA fluticasone propionate 50 mcg/actuation [place],Suspension 2 spray INTRANASAL BID omeprazole 20 mg Tablet,Delayed Release (Dr/Ec) 20 mg PO BID roflumilast [Daliresp] 500 mcg Tablet 500 mcg PO DAILY Spiriva Respimat 2.5 mcg/actuation Mist 2 puff INHALATION QHS dicyclomine 10 mg Capsule 10 mg PO 4X/DAY Qty: 1 0RF nystatin [Nyamyc] 100,000 unit/gram powder 1 applic topical TID Protocol: *Topical Application Instructions APPLICATION INSTRUCTIONS: affected areas gabapentin 300 mg Capsule 300 mg PO BID furosemide 40 mg tablet 40 mg PO DAILY Qty: 30 0RF prednisone 20 mg tablet 10 mg PO DAILY albuterol sulfate 90 mcg/actuation Hfa Aerosol Inhaler 2 puff INHALATION Q2H PRN (Reason: SOB) Referrals / Follow Up: Sepideh Patterson MD [Primary Care Provider] - Disposition Disposition (needs filled in before D/C Order can be placed): Intermediate Facility Charges/Coding Visit Charges Inpatient E&M: 87828 Disch Hosp >30min 09/12/22 1319 <Electronically signed by Yomi Lorenzo MD> Cosigner Signature (if applicable): CC: Dr. Yomi Lorenzo MD; Sepideh Patterson MD~ Signed [facility] Work Phone: 1(692) 528-560906-06-[address] Lorenzo [facility] September 12, 2022 12:19pm Note Date/Time September 12, 2022 12:17 pm [facility] Medical Records Department [address] [place] [address] Transfer to [facility] MR#: [id number] Acct: [id number] Name: HE LAUREANO Rep #:[id number] : 1960 61 From: Yomi solis MD PCP: Sepideh Patterson MD Status:ADM IN Certification of patient admission REQUIRED AT TIME OF ADMISSION. I CERTIFY THAT POST-HOSPITAL ECF SERVICES ARE REQUIRED TO BE GIVEN ON AN IN-PATIENT BASIS BECAUSE OF THE ABOVE NAMED PATIENT'S NEED FOR RESIDENTIAL CARE ON A CONTINUING BASIS FOR THE CONDITION(S) FOR WHICH HE/SHE WAS RECEIVING IN-PATIENT HOSPITAL SERVICES PRIOR TO HIS/HER TRANSFER TO THE [facility]. 09/12/22 1219<Electronically signed by Yomi Lorenzo MD> Diet Diet Order/Speech Therapy: 09/08/22 03:43 Diet: Cardiac - Heart Healthy Food consistency:: Regular Liquid Consistency:: Regular/Thin Is pt able to select menu?: Yes Routine Orders/Code Status Routine Lab Work: CBC and BMP Code Status: Full Code Wound(s) pannus: Wound Type: Reddened Therapies Physical Therapy: Eval and Treat Occupational Therapy: Eval and Treat Problem/Diagnosis (1) Chronic respiratory failure: Status: Chronic Code(s): J96.10 - Chronic respiratory failure, unspecified whether with hypoxia or hypercapnia Plan 1. Acute cystitis with E. coli ? Patient admitted to regular nursing floor urine culture sent patient started on broad-spectrum antibiotic therapy With ceftriaxone ? 09/09/2022; urine and blood cultures pending ? 09/10/2022 urine cultures came back positive for E. coli sensitive to ceftriaxone switched to p.o. cefdinir ? 09/11/2022: Continue with cefdinir we will discuss with case management discharge planning 2. Acute kidney injury Patient baseline creatinine from 07/26/2022 was 0.54 creatinine on admission was 1.47 went up to 1.61 started on IV fluid with subsequent monitoring of electrolytes ordered ? 09/09/2022 kidney function back to baseline 3. Acute metabolic encephalopathy ? Secondary to acute respiratory failure with significant hypercapnia neck ?09/11/2022: Appears to be resolved 4. Acute on chronic hypoxic respiratory failure ? Due to combination of sleep apnea and obesity hypoventilation syndrome patientwas transferred to the intensive care unit following deterioration in her mentalstatus placed on noninvasive ventilation BiPAP with consultation placed to pulmonary medicine ? 09/11/2022: She is maintaining her oxygen on 3 L nasal cannula we will continue with AVAPS while here at sleep and also when discharged back to the assisted 3. Essential hypertension ? Did continue patient home medication except for losartan 4.? Chronic hypoxic respiratory failure ? Due to obstructive sleep apnea as well as obesity hypoventilation syndrome patient is on baseline oxygen 5.? Obesity hypoventilation syndrome ? Consistent use of BiPAP encouraged 6.? COPD ? Currently not in exacerbation aerosol treatments as needed 7.?Class III obesity with BMI of 63 ? Weight loss advised 9.GERD ? On PPI 10. Depression ? Patient is on SSRI did continue DVT: Heparin Allergies/Procedures Done in Hospital Allergies aspirin Allergy (Verified 09/08/22 00:15) Other black pepper [pepper] Allergy (Verified 09/08/22 00:15) Other coconut Allergy (Verified 09/08/22 00:15) Other codeine Allergy (Verified 09/08/22 00:15) Other ibuprofen Allergy (Verified 09/08/22 00:15) Other Influenza Virus Vaccines Allergy (Verified 09/08/22 00:15) Other Penicillins Allergy (Verified 09/08/22 00:15) Anaphylaxis rice Allergy (Verified 09/08/22 00:15) Other tetanus and diphtheria toxoids Allergy (Verified 09/08/22 00:15) Other Tetanus Vaccines and Toxoid Allergy (Verified 09/08/22 00:15) Other Procedures: None Type of Care/Length of Stay Estimated LOS: Convalescent Care Less Than 30 days Type of Care Needed: Skilled Rehab Potential: Good Prognosis: Good Additional Orders/Day of Discharge Day of Discharge: 09/12/22 Dietary and Speech Recommendations Dietitian Recommendations/Changes: Continue Cardiac diet to manage medical conditions. Discharge Plan Admission Admit Date/Time: 09/08/22 02:57 Attending Provider: Yomi Lorenzo Primary Care Provider: Sepideh Patterson Consulting Providers: Jayme Corea ; Otoniel Mei ; Hugo Templeton ; Pawel Oswald ; Aguila Merchant ; Yessica Morales MERCHANDISE DISTRIBUTOR ; Leanna Pascual Discharge Orders/Prescriptions Prescriptions: New cefdinir 300 mg Capsule 300 mg PO Q12 3 Days Qty: 0 0RF Continued losartan 50 mg Tablet 50 mg PO DAILY cyclobenzaprine 10 mg Tablet 10 mg PO TID acetaminophen 325 mg Tablet 650 mg PO Q4H PRN PRN (Reason: Pain) atorvastatin 20 mg Tablet 20 mg PO QHS lidocaine 4 % Adhesive Patch,Medicated 1 patch TOPICAL DAILY PRN (Reason: Pain) Rx Instructions: APPLY TO BOTH SHOULDERS sertraline [Zoloft] 100 mg Tablet 100 mg PO QHS famotidine 20 mg Tablet 20 mg PO BID amitriptyline 25 mg Tablet 25 mg PO QODAY montelukast 10 mg Tablet 10 mg PO DAILY ergocalciferol (vitamin D2) [Vitamin D2] 1,250 mcg (50,000 unit) Capsule 1,250 mcg PO SA fluticasone propionate 50 mcg/actuation [place],Suspension 2 spray INTRANASAL BID omeprazole 20 mg Tablet,Delayed Release (Dr/Ec) 20 mg PO BID roflumilast [Daliresp] 500 mcg Tablet 500 mcg PO DAILY Spiriva Respimat 2.5 mcg/actuation Mist 2 puff INHALATION QHS dicyclomine 10 mg Capsule 10 mg PO 4X/DAY Qty: 1 0RF nystatin [Nyamyc] 100,000 unit/gram powder 1 applic topical TID Protocol: *Topical Application Instructions APPLICATION INSTRUCTIONS: affected areas gabapentin 300 mg Capsule 300 mg PO BID furosemide 40 mg tablet 40 mg PO DAILY Qty: 30 0RF prednisone 20 mg tablet 10 mg PO DAILY albuterol sulfate 90 mcg/actuation Hfa Aerosol Inhaler 2 puff INHALATION Q2H PRN (Reason: SOB) Referrals / Follow Up: Sepideh Patterson MD [Primary Care Provider] - Disposition Disposition (needs filled in before D/C Order can be placed): Intermediate Facility 09/12/22 1219 <Electronically signed by Yomi Lorenzo MD> Cosigner Signature (if applicable): CC: MERCHANDISE DISTRIBUTOR-C Yessica Morales; Dr. Otoniel Mei MD; Dr. Leanna Pascual MD; Dr. Hugo Templeton DO; Dr. Jayme Corea DO; Dr. Pawel Oswald MD; Dr. Aguila Merchant MD; Sepideh Patterson MD ~ [facility] Work Phone: [phone]) [phone] Oswald [facility] September 11, 2022 12:44pm Note Date/Time September 11, 2022 12:44 pm [facility] Medical Records Department [address] [place] [id number] Progress Note - Ceramics Machine Operator 09/11/22 1237 MR#: [id number] Acct: [id number] Name: HE LAUREANO Rep #:[id number] : 1960 61 From: Pawel Oswald MD PCP: Sepideh Patterson MD Status:ADM IN [facility] Assessment & Plan Assessment/Plan (1) Chronic respiratory failure: PLAN: Patient is in the process of transitioning to outpatient status and hospital discharge. Recommend consistent nocturnal and nap use of her usual BiPAP. She is likely to be readmitted in a short period of time if she is noncompliant with her BiPAP, which has been her usual pattern. Patient advised to wear BiPAP all night every night and with naps. Please see AVAPS settings above near vital signs for additional guidance, although it is more important for her to resume her usual BiPAP settings and use it as directed.. Pulmonary critical care will sign off for now, thank you for asking us to participate in this pleasant patient's care. Subjective Subjective No complaints, patient was encountered looking at her cell phone, stated that she "feels like she does at home. "She is looking forward to going home today. Denies dyspnea, states she is wearing the AVAPS mask at night. She stated she would wear the BiPAP machine when she gets back to it. Objective Data Objective Data Patient transferred out of ICU to regular floor uneventfully yesterday. Vital Signs: Vital Signs Temp Pulse Resp BP Pulse Ox O2 Del Method O2 Flow Rate 97.3 F L 89 18 110/64 96 Nasal Cannula 3 09/11/22 09:27 09/11/22 11:00 09/11/22 09:27 09/11/22 09:27 09/11/22 09:27 09/11/22 10:48 09/11/22 10:48 FiO2 30 09/11/22 00:32 Oxygen Flow Rate (L/min) 3 Oxygen Delivery Method Nasal Cannula Weight: 389 lb 1.854 oz Body Mass Index (BMI) 62.5 Current AVAPS settings: Tidal volume 450, rate 18, FiO2 30%, EPAP 18. Minimum pressure support 16, maximum pressure support 24, inspiratory time 1.15 seconds. Intake & Output: Intake and Output for Last 24 Hours 09/09/22 09/10/22 09/11/22 23:59 23:59 23:59 Intake Total 890 / 890 660 / 660 200 / 200 Output Total 1225 / 1225 1275 / 1275 Balance -335 / -335 -615 / -615 200 / 200 Lab / Micro Data Attestation: I reviewed the patient's lab results. Result Diagrams: 09/11/22 05:30 09/11/22 05:30 Labs: Laboratory Results - last 24 hr 09/11/22 05:30: WBC 6.8, RBC 3.56 L, Hgb 9.9 L, Hct 32.7 L, MCV 91.9, MCH 27.8, MCHC 30.3 L D, RDW Std Deviation 47.1 H, RDW Coeff of David 14.0, Plt Count 207, MPV 11.0, Immature Gran % (Auto) 3.800 H, Neut % (Auto) 51.6, Lymph % (Auto) 31.9, Nobles % (Auto) 8.7, Eos % (Auto) 3.7, Baso % (Auto) 0.3, Absolute Neuts (auto) 3.5, Absolute Lymphs (auto) 2.17, Nucleated RBC % 0 09/11/22 05:30: Sodium 142, Potassium 3.2 L, Chloride 97 L, Carbon Dioxide 42.0 H, Anion Gap 3 L, BUN 14, Creatinine 0.54 L, Estim Creat Clear Calc 103.71, Est GFR (MDRD) Af Amer 148, Est GFR (MDRD) Non-Af 123, BUN/Creatinine Ratio 26.0 H, Glucose 105, Calcium 10.0 Micro: Microbiology 09/08/22 21:20 Stool Enteric Bacteriology - Final 09/08/22 01:05 Urine, Clean Catch Urine Culture - Final Escherichia coli 09/08/22 01:32 Blood Culture (Wb) - Anticubital Left Blood Culture - Preliminary No growth in 48 hours. 09/08/22 00:48 Blood Culture (Wb) - Anticubital Left Blood Culture - Preliminary No growth in 48 hours. 09/08/22 21:20 Stool C. difficile GDH Antigen & Toxins - Final 09/08/22 21:20 Stool C. difficile DNA Amplification - Final 09/08/22 00:48 Nasal Secretion SARS-CoV-2 & FLU Antigen (Rapid) - Final Physical Exam Narrative Morbidly obese woman with BMI of 62.8, no acute distress. Awake alert and oriented, verbal, responds appropriately. HEENT on nasal cannula Breathing chronically labored while supine, using accessory muscles due to increased work of breathing from adiposity No cough no sputum. Charges/Coding Visit Charges Inpatient E&M: 77787 Subs Hosp L1 09/11/22 1245 <Electronically signed by Pawel Oswald MD> Cosigner Signature (if applicable): CC: ~ Signed [facility] Work Phone: [phone]) 186-965306-05-[address] [facility] September 11, 2022 12:07pm Note Date/Time September 11, 2022 12:01 pm [facility] Medical Records Department [address] [place] [address] Progress Note - Hospitalist 09/11/22 1158 MR#: [id number] Acct: [id number] Name: HE LAUREANO Rep #:[id number] : 1960 61 From: Yomi solis MD PCP: Sepideh Patterson MD Status:ADM IN Location: [place] [address] Subjective Subjective Resting comfortably, no issues overnight Objective Data Objective Data Vital Signs: Vital Signs Temp Pulse Resp BP Pulse Ox O2 Del Method O2 Flow Rate 97.3 F L 89 18 110/64 96 Nasal Cannula 3 09/11/22 09:27 09/11/22 11:00 09/11/22 09:27 09/11/22 09:27 09/11/22 09:27 09/11/22 10:48 09/11/22 10:48 FiO2 30 09/11/22 00:32 Oxygen Flow Rate (L/min) 3 Oxygen Delivery Method Nasal Cannula Weight: 389 lb 1.854 oz Body Mass Index (BMI) 62.5 Intake & Output: Intake and Output for Last 24 Hours 09/10/22 09/11/22 09/12/22 03:59 03:59 03:59 Intake Total 890 / 890 660 / 660 200 / 200 Output Total 1775 / 1775 725 / 725 Balance -885 / -885 -65 / -65 200 / 200 Lab / Micro Data Result Diagrams: 09/11/22 05:30 09/11/22 05:30 Labs: Laboratory Results - last 24 hr 09/11/22 05:30: WBC 6.8, RBC 3.56 L, Hgb 9.9 L, Hct 32.7 L, MCV 91.9, MCH 27.8, MCHC 30.3 L D, RDW Std Deviation 47.1 H, RDW Coeff of David 14.0, Plt Count 207, MPV 11.0, Immature Gran % (Auto) 3.800 H, Neut % (Auto) 51.6, Lymph % (Auto) 31.9, Nobles % (Auto) 8.7, Eos % (Auto) 3.7, Baso % (Auto) 0.3, Absolute Neuts (auto) 3.5, Absolute Lymphs (auto) 2.17, Nucleated RBC % 0 09/11/22 05:30: Sodium 142, Potassium 3.2 L, Chloride 97 L, Carbon Dioxide 42.0 H, Anion Gap 3 L, BUN 14, Creatinine 0.54 L, Estim Creat Clear Calc 103.71, Est GFR (MDRD) Af Amer 148, Est GFR (MDRD) Non-Af 123, BUN/Creatinine Ratio 26.0 H, Glucose 105, Calcium 10.0 Micro: Microbiology 09/08/22 21:20 Stool Enteric Bacteriology - Final 09/08/22 01:05 Urine, Clean Catch Urine Culture - Final Escherichia coli 09/08/22 01:32 Blood Culture (Wb) - Anticubital Left Blood Culture - Preliminary No growth in 48 hours. 09/08/22 00:48 Blood Culture (Wb) - Anticubital Left Blood Culture - Preliminary No growth in 48 hours. 09/08/22 21:20 Stool C. difficile GDH Antigen & Toxins - Final 09/08/22 21:20 Stool C. difficile DNA Amplification - Final 09/08/22 00:48 Nasal Secretion SARS-CoV-2 & FLU Antigen (Rapid) - Final Physical Exam Narrative General: Sleeping but arousable, Cooperative, No apparent distress HEENT: Atraumatic, PERRLA, EOMI, Normocephalic Oral: Moist Mucosa Neck: Supple, No JVD Lungs: Diminished, Normal air movement, No rhonchi, No wheeze, No rales Cardiovascular: Regular rate, Regular Rhythm, Normal S1, Normal S2, No murmurs Abdomen: Soft, Non Tender, Non-Distended, No Hepato-splenomegaly Extremities: No edema, Capillary Refill Less than 3 Seconds Skin: No rashes, No breakdown Musculoskeletal: No Tenderness to Palpation of Joints or Extremities Neurological: Motor Exam 5/5 strength throughout, Sensory exam intact to light touch and pain Psych/Mental Status: Flat Affect Assessment & Plan Assessment/Plan (1) UTI (urinary tract infection): (2) Acute kidney injury: PLAN: Plan 1. Acute cystitis with E. coli ? Patient admitted to regular nursing floor urine culture sent patient started on broad-spectrum antibiotic therapy With ceftriaxone ? 09/09/2022; urine and blood cultures pending ? 09/10/2022 urine cultures came back positive for E. coli sensitive to ceftriaxone switched to p.o. cefdinir ? 09/11/2022: Continue with cefdinir we will discuss with case management discharge planning 2. Acute kidney injury Patient baseline creatinine from 07/26/2022 was 0.54 creatinine on admission was 1.47 went up to 1.61 started on IV fluid with subsequent monitoring of electrolytes ordered ? 09/09/2022 kidney function back to baseline 3. Acute metabolic encephalopathy ? Secondary to acute respiratory failure with significant hypercapnia neck ?09/11/2022: Appears to be resolved 4. Acute on chronic hypoxic respiratory failure ? Due to combination of sleep apnea and obesity hypoventilation syndrome patientwas transferred to the intensive care unit following deterioration in her mentalstatus placed on noninvasive ventilation BiPAP with consultation placed to pulmonary medicine ? 09/11/2022: She is maintaining her oxygen on 3 L nasal cannula we will continue with AVAPS while here at sleep and also when discharged back to the assisted 3. Essential hypertension ? Did continue patient home medication except for losartan 4.? Chronic hypoxic respiratory failure ? Due to obstructive sleep apnea as well as obesity hypoventilation syndrome patient is on baseline oxygen 5.? Obesity hypoventilation syndrome ? Consistent use of BiPAP encouraged 6.? COPD ? Currently not in exacerbation aerosol treatments as needed 7.?Class III obesity with BMI of 63 ? Weight loss advised 9.GERD ? On PPI 10. Depression ? Patient is on SSRI did continue DVT: Heparin Charges/Coding Visit Charges Inpatient E&M: 28387 Subs Hosp L2 09/11/22 1207 <Electronically signed by Yomi Lorenzo MD> Cosigner Signature (if applicable): CC: ~ Signed [facility] Work Phone: [phone]) [phone] Pascual [facility] September 10, 2022 9:03am Note Date/Time September 10, 2022 7:22a m [facility] Medical Records Department [address] [place] [address] Progress Note - Hospitalist 09/10/22 0722 MR#: [id number] Acct: [id number] Name: HE LAUREANO Rep #:[id number] : 1960 61 From: Leanna Pascual MD PCP: Sepideh Patterson MD Status:ADM IN Location: ICU ICU02-1 Reason for Visit Reason for Visit: Diagnoses Acute kidney failure, unspecified (09/08/22) Urinary tract infection, site not specified (09/08/22) Subjective Subjective Patient has been weaned off noninvasive ventilation currently on nasal cannula plan is to transfer to progressive care unit and advance activity as tolerated. Urine cultures grew E. coli remains on ceftriaxone Objective Data Objective Data Vital Signs: Vital Signs Temp Pulse Resp BP Pulse Ox O2 Del Method O2 Flow Rate 98.2 F 88 18 121/68 H 95 Nasal Cannula 2 09/10/22 02:00 09/10/22 07:09 09/10/22 07:09 09/10/22 02:00 09/10/22 07:09 09/10/22 07:09 09/10/22 07:09 FiO2 35 09/10/22 04:20 Oxygen Flow Rate (L/min) 2 Oxygen Delivery Method Nasal Cannula Weight: 176.5 kg Body Mass Index (BMI) 62.5 Intake & Output: Intake and Output for Last 24 Hours 09/08/22 09/09/22 09/10/22 23:59 23:59 23:59 Intake Total 1546.5 / 1546.5 890 / 890 Output Total 1100 / 1100 1225 / 1225 550 / 550 Balance 446.5 / 446.5 -335 / -335 -550 / -550 Lab / Micro Data Result Diagrams: 09/10/22 03:20 09/10/22 03:20 Labs: Laboratory Results - last 24 hr 09/10/22 03:20: WBC 7.2, RBC 3.80 L, Hgb 10.3 L, Hct 35.8 L, MCV 94.2, MCH 27.1,MCHC 28.8 L, RDW Std Deviation 47.1 H, RDW Coeff of David 13.8, Plt Count 214, MPV10.9, Immature Gran % (Auto) 3.100 H, Neut % (Auto) 53.9, Lymph % (Auto) 31.9, Nobles % (Auto) 8.0, Eos % (Auto) 2.7, Baso % (Auto) 0.4, Absolute Neuts (auto) 3.9, Absolute Lymphs (auto) 2.28, Nucleated RBC % 0 09/10/22 03:20: Sodium 142, Potassium 3.7, Chloride 96 L, Carbon Dioxide 45.0 H,Anion Gap 1 L, BUN 19 H, Creatinine 0.55, Estim Creat Clear Calc 101.83, Est GFR(MDRD) Af Amer 146, Est GFR (MDRD) Non-Af 120, BUN/Creatinine Ratio 34.7 H, Glucose 92, Calcium 10.3 H Micro: Microbiology 09/08/22 21:20 Stool Enteric Bacteriology - Final 09/08/22 01:05 Urine, Clean Catch Urine Culture - Final Escherichia coli 09/08/22 01:32 Blood Culture (Wb) - Anticubital Left Blood Culture - Preliminary No growth in 48 hours. 09/08/22 00:48 Blood Culture (Wb) - Anticubital Left Blood Culture - Preliminary No growth in 48 hours. 09/08/22 21:20 Stool C. difficile GDH Antigen & Toxins - Final 09/08/22 21:20 Stool C. difficile DNA Amplification - Final 09/08/22 00:48 Nasal Secretion SARS-CoV-2 & FLU Antigen (Rapid) - Final Physical Exam Narrative GENERAL: Awake and cooperative HEENT: Atraumatic; normocephalic EYES; Anicteric, Normal Conjunctiva NECK; supple, normal thyroid, RESPIRATORY: Diminished to auscultation CARDIOVASCULAR: Regular S1 S2, GI: soft, normoactive bowel sounds, : No Renal angle tenderness; EXTREMITIES: No edema, no clubbing, MUSCULOSKELETAL: no muscle wasting NEURO: Awake; no lateralizing signs. SKIN: No Rash PSYCH; Flat affect Assessment & Plan Assessment/Plan (1) UTI (urinary tract infection): (2) Acute kidney injury: PLAN: Plan Patient is a 61-year-old lady admitted with rigors diagnosed with acute cystitisadmitted to regular nursing floor for further management 1. Acute cystitis with E. coli ? Patient admitted to regular nursing floor urine culture sent patient started on broad-spectrum antibiotic therapy With ceftriaxone ? 09/09/2022; urine and blood cultures pending ? 09/10/2022 urine cultures came back positive for E. coli sensitive to ceftriaxone switched to p.o. cefdinir 2. Acute kidney injury Patient baseline creatinine from 07/26/2022 was 0.54 creatinine on admission was 1.47 went up to 1.61 started on IV fluid with subsequent monitoring of electrolytes ordered ? 09/09/2022 kidney function back to baseline 3. Acute metabolic encephalopathy ? Secondary to acute respiratory failure with significant hypercapnia 4. Acute on chronic hypoxic respiratory failure ? Due to combination of sleep apnea and obesity hypoventilation syndrome patientwas transferred to the intensive care unit following deterioration in her mentalstatus placed on noninvasive ventilation BiPAP with consultation placed to pulmonary medicine 3. Essential hypertension ? Did continue patient home medication except for losartan 4.? Chronic hypoxic respiratory failure ? Due to obstructive sleep apnea as well as obesity hypoventilation syndrome patient is on baseline oxygen 5.? Obesity hypoventilation syndrome ? Consistent use of BiPAP encouraged 6.? COPD ? Currently not in exacerbation aerosol treatments as needed 7.?Class III obesity with BMI of 63 ? Weight loss advised 9.GERD ? On PPI 10. Depression ? Patient is on SSRI did continue 11. Anemia - Secondary to chronic disorder monitoring H&H and transfuse if patient becomes symptomatic or hemoglobin falls below 7 12. DVT prophylaxis ? SC heparin Time spent in the patient's overall evaluation,decision-making process, review of diagnostic data, adjustment of management, discussion with other providers, nursing nursing and ancillary staff involved in patient's care documentation, 35 minutes Charges/Coding Visit Charges Inpatient E&M: 47494 Subs Hosp L2 09/10/22 0903 <Electronically signed by Leanna Pascual MD> Cosigner Signature (if applicable): CC: ~ Signed [facility] Work Phone: 1(816) 629-952406-04-[address] Templeton [facility] September 10, 2022 6:38am Note Date/Time September 10, 2022 5:54a m [facility] Medical Records Department [address] [place] [address] Progress Note - Ceramics Machine Operator 09/10/22 0553 MR#: [id number] Acct: [id number] Name: HE LAUREANO Rep #:[id number] : 1960 61 From: Hugo Templeton DO PCP: Sepideh Patterson MD Status:ADM IN Location: ICU ICU02-1 Assessment & Plan Assessment/Plan (1) UTI (urinary tract infection): PLAN: Plan RECOMMENDATIONS: 1. Continue antimicrobials pending finalized culture results. 2. Continue AVAPS therapy with naps and nightly. 3. Continue supplemental oxygen to maintain saturations at or above 90%. 4. Encourage incentive spirometer use and mobilize patient as tolerated. IMPRESSIONS: 1. Acute on chronic combined respiratory failure The patient has a known supplemental oxygen requirement of 4 L/min at baseline along with what is likely alveolar hypoventilation secondary to obesity, coupledwith underlying obstructive sleep apnea, for which the patient is noncompliant with use of conventional PAP therapy. Her mentation as well as CO2 levels improved with noninvasive positive pressure ventilatory support. I would strongly recommend the continued use of AVAPS therapy with naps and nightly. Continue supplemental oxygen via nasal cannula during the day. I would avoid sedating medications. 2. Encephalopathy Resolved. Likely related to acute CO2 retention. This has improved with noninvasive positive pressure ventilatory support. The patient is currently alert and appropriately interactive. Continue supportive measures as noted above. 3. Cystitis Continue supportive measures including antimicrobials, pending finalized cultureresults. 4. Questionable history of COPD/super morbid obesity/depression/GERD Complicates care, management, recovery and prognosis. Continue aerosol treatments as ordered. Encourage incentive spirometer use and mobilize patient as tolerated. This note was generated with [employer] dictation software. It may contain incorrectwords, spelling, and punctuation that were not noted in checking the note beforesigning. Subjective Subjective The patient was seen and examined at the bedside this morning. Events from the last 24 hours have been reviewed. The patient remains afebrile and hemodynamically stable. She tolerated AVAPS therapy once again overnight. No overnight issues were identified by the nursing staff. Objective Data Objective Data The patient's most recent lab work, culture data and imaging studies have all been personally reviewed. Blood and urine cultures are pending. Vital Signs: Vital Signs Temp Pulse Resp BP Pulse Ox O2 Del Method O2 Flow Rate 98.2 F 80 19 H 121/68 H 98 Bi-pap 3 09/10/22 02:00 09/10/22 04:20 09/10/22 04:20 09/10/22 02:00 09/10/22 04:20 09/10/22 04:00 09/09/22 20:00 FiO2 35 09/10/22 04:20 Oxygen Flow Rate (L/min) 3 Oxygen Delivery Method Bi-pap Weight: 389 lb 1.854 oz Body Mass Index (BMI) 62.5 Intake & Output: Intake and Output for Last 24 Hours 09/08/22 09/09/22 09/10/22 23:59 23:59 23:59 Intake Total 1546.5 / 1546.5 890 / 890 Output Total 1100 / 1100 1225 / 1225 550 / 550 Balance 446.5 / 446.5 -335 / -335 -550 / -550 Lab / Micro Data Attestation: I reviewed the patient's lab results. Result Diagrams: 09/10/22 03:20 09/10/22 03:20 Labs: Laboratory Results - last 24 hr 09/10/22 03:20: WBC 7.2, RBC 3.80 L, Hgb 10.3 L, Hct 35.8 L, MCV 94.2, MCH 27.1,MCHC 28.8 L, RDW Std Deviation 47.1 H, RDW Coeff of David 13.8, Plt Count 214, MPV10.9, Immature Gran % (Auto) 3.100 H, Neut % (Auto) 53.9, Lymph % (Auto) 31.9, Nobles % (Auto) 8.0, Eos % (Auto) 2.7, Baso % (Auto) 0.4, Absolute Neuts (auto) 3.9, Absolute Lymphs (auto) 2.28, Nucleated RBC % 0 09/10/22 03:20: Sodium 142, Potassium 3.7, Chloride 96 L, Carbon Dioxide 45.0 H,Anion Gap 1 L, BUN 19 H, Creatinine 0.55, Estim Creat Clear Calc 101.83, Est GFR(MDRD) Af Amer 146, Est GFR (MDRD) Non-Af 120, BUN/Creatinine Ratio 34.7 H, Glucose 92, Calcium 10.3 H Micro: Microbiology 09/08/22 21:20 Stool Enteric Bacteriology - Preliminary 09/08/22 21:20 Stool C. difficile GDH Antigen & Toxins - Final 09/08/22 21:20 Stool C. difficile DNA Amplification - Final 09/08/22 00:48 Nasal Secretion SARS-CoV-2 & FLU Antigen (Rapid) - Final Physical Exam Const Constitutional Narrative: The patient is super morbidly obese. Resting comfortably in bed. The patient is alert and appropriately interactive. HEENT normocephalic and head/scalp atraumatic Eyes PERRL, EOMs intact bilaterally and conjunctivae normal Neck supple Neck Narrative: Large neck circumference with redundant soft tissue. General: trachea midline Chest inspection of chest normal Resp Resp Narrative: Distant breath sounds secondary to body habitus. Auscultation: Negative for rales, rhonchi or wheezes Cardio regular rate and regular rhythm GI normal to inspection, nondistended, normoactive bowel sounds Extremity General Extremity: edema bilateral lower extremity; Negative for clubbing Skin no rashes or lesions noted Neuro CN's II-XII intact bilaterally and no focal motor deficits Psych cooperative and affect normal Charges/Coding Visit Charges Inpatient E&M: 24804 Subs Hosp L2 09/10/22 0638 <Electronically signed by Hugo Templeton DO> Cosigner Signature (if applicable): CC: ~ Signed [facility] Work Phone: 1(133) 879-785306-04-[address] Templeton [facility] September 10, 2022 5:53am Note Date/Time September 09, 2022 5:54a m [facility] Medical Records Department [address] [place] [address] Consultation - Ceramics Machine Operator 09/09/22 0550 MR#: [id number] Acct: [id number] Name: HE LAUREANO Rep #:[id number] : 1960 61 From: Hugo Templeton DO PCP: Sepideh Patterson MD Status:ADM IN Location: ICU ICU02-1 Assessment & Plan Assessment/Plan (1) UTI (urinary tract infection): PLAN: Plan RECOMMENDATIONS: 1. Continue antimicrobials pending finalized culture results. 2. Continue AVAPS therapy with naps and nightly. 3. Transition to nasal cannula oxygen to maintain saturations at or above 90%. 4. Encourage incentive spirometer use and mobilize patient as tolerated. IMPRESSIONS: 1. Acute on chronic combined respiratory failure The patient has a known supplemental oxygen requirement of 4 L/min at baseline along with what is likely alveolar hypoventilation secondary to obesity, coupledwith underlying obstructive sleep apnea, for which the patient is noncompliant with use of conventional PAP therapy. Her mentation as well as CO2 levels have improved with noninvasive positive pressure ventilatory support. I would strongly recommend the continued use of AVAPS therapy with naps and nightly. The patient can be weaned to supplemental oxygen via nasal cannula from my perspective. I would avoid sedating medications. 2. Encephalopathy Likely related to acute CO2 retention. This has improved with noninvasive positive pressure ventilatory support. The patient is currently alert and appropriately interactive. Continue supportive measures as noted above. 3. Cystitis Continue supportive measures including antimicrobials, pending finalized cultureresults. 4. Questionable history of COPD/super morbid obesity/depression/GERD Complicates care, management, recovery and prognosis. Continue aerosol treatments as ordered. Encourage incentive spirometer use and mobilize patient as tolerated. This note was generated with vivitation software. It may contain incorrectwords, spelling, and punctuation that were not noted in checking the note beforesigning. HPI Consult Data Date of Consult: 09/10/22 HPI Narrative Reason for Consultation: Alveolar hypoventilation secondary to obesity HPI Narrative: The patient is a 61-year-old female, with a history as outlined below, who initially presented to the emergency department via EMS on September 08 with rigors and hypoxemia. The patient currently resides in an extended care facility. Thepatient has a known history of chronic hypoxemic respiratory failure with a baseline 4 L/min oxygen requirement along with obstructive sleep apnea, for which she is mostly noncompliant with the use of nocturnal PAP therapy. On presentation to the emergency department, the patient was noted to be afebrile and hemodynamically stable. She was saturating 91% on 4 L/min via nasal cannula. Initial laboratory evaluation revealed a white blood cell count of 12,000. D-dimer was negative. Chemistry profile was notable for a bicarbonate of 44 and creatinine of 1.47. Urinalysis was positive for leukocyte esterase and 4+ urine bacteria. Chest x-ray demonstrated findings concerning for right-sided pneumonia and pleural effusion. The patient was initially placed on antibiotics and admitted to the hospital. The patient was ultimately transferred to the medical intensive care unit later on September 08 after she became encephalopathic and was found to have a PCO2 of 80 onarterial blood gas. She was placed on AVAPS therapy and moved to the ICU. 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 deficits Seasonal allergies TIA (transient ischemic attack) UTI (urinary tract infection) Vitamin D deficiency Home Medications acetaminophen 325 mg tablet 650 mg PO Q4H PRN PRN Pain 05/03/22 [History Last Taken 05/28/22] amitriptyline 25 mg tablet 25 mg PO QODAY DEPRESSION 05/03/22 [History Last Taken 05/26/22] atorvastatin 20 mg tablet 20 mg PO QHS CHOLESTEROL 05/03/22 [History Last Taken 05/27/22] cyclobenzaprine 10 mg tablet 10 mg PO TID Check with primary doctor 05/03/22 [History Last Taken 05/28/22] ergocalciferol (vitamin D2) 1,250 mcg (50,000 unit) capsule (Vitamin D2) 1,250 mcg PO SA SUPPLEMENT 05/03/22 [History Last Taken 05/27/22] famotidine 20 mg tablet 20 mg PO BID GERD 05/03/22 [History Last Taken 05/28/22] fluticasone propionate 50 mcg/actuation nasal spray,suspension 2 spray intranasal BID NASAL CONGESTION 05/03/22 [History Last Taken 05/28/22] lidocaine 4 % topical patch 1 patch topical DAILY PRN Pain 05/03/22 [History Last Taken 05/28/22] losartan 50 mg tablet 50 mg PO DAILY BLOOD PRESSURE 05/03/22 [History Last Taken 05/28/22] montelukast 10 mg tablet 10 mg PO DAILY ALLERGIES 05/03/22 [History Last Taken 05/28/22] omeprazole 20 mg tablet,delayed release 20 mg PO BID GERD 05/03/22 [History Last Taken 05/28/22] roflumilast 500 mcg tablet (Daliresp) 500 mcg PO DAILY ASTHMA 05/03/22 [History Last Taken 05/28/22] sertraline 100 mg tablet (Zoloft) 100 mg PO QHS DEPRESSION 05/03/22 [History Last Taken 05/27/22] tiotropium bromide 2.5 mcg/actuation mist for inhalation (Spiriva Respimat) 2 puff inhalation QHS ASTHMA 05/03/22 [History Last Taken 05/27/22] dicyclomine 10 mg capsule 10 mg PO 4X/DAY #1 cap 05/05/22 [Rx Last Taken 05/28/22] nystatin 100,000 unit/gram topical powder (Nyamyc) 1 applic topical TID affectedareas 05/14/22 [History Last Taken 05/28/22] gabapentin 300 mg capsule 300 mg PO BID NEUROPATHY 05/28/22 [History Last Taken 05/28/22] furosemide 40 mg tablet 40 mg PO DAILY #30 tabs 05/30/22 [Rx Last Taken Unknown] albuterol sulfate 90 mcg/actuation aerosol inhaler 2 puff inhalation Q2H PRN SOB09/08/22 [History Last Taken Unknown] prednisone 20 mg tablet 10 mg PO DAILY Check with primary doctor 09/08/22 [History Last Taken Unknown] Allergy/AdvReac Type Severity Reaction Status Date / Time aspirin Allergy Other Verified 09/08/22 00:15 black pepper [pepper] Allergy Other Verified 09/08/22 00:15 coconut Allergy Other Verified 09/08/22 00:15 codeine Allergy Other Verified 09/08/22 00:15 ibuprofen Allergy Other Verified 09/08/22 00:15 Influenza Virus Vaccines Allergy Other Verified 09/08/22 00:15 Penicillins Allergy Anaphylaxis Verified 09/08/22 00:15 rice Allergy Other Verified 09/08/22 00:15 tetanus and diphtheria Allergy Other Verified 09/08/22 00:15 toxoids Tetanus Vaccines and Toxoid Allergy Other Verified 09/08/22 00:15 Family History Other CAD (coronary artery disease) COPD (chronic obstructive pulmonary disease) Hypertension Social History housing: assisted Smoking Status: Former smoker alcohol intake: never substance use type: does not use ROS ROS Narrative 10 systems reviewed with pertinent positives as noted in the HPI above. Physical Exam Const Constitutional Narrative: The patient is super morbidly obese. Resting comfortably in bed. BiPAP is in place. The patient is alert and appropriately interactive. HEENT normocephalic and head/scalp atraumatic Eyes PERRL, EOMs intact bilaterally and conjunctivae normal Neck supple Neck Narrative: Large neck circumference with redundant soft tissue. General: trachea midline Chest inspection of chest normal Resp Resp Narrative: Distant breath sounds secondary to body habitus. Auscultation: Negative for rales, rhonchi or wheezes Cardio regular rate and regular rhythm GI normal to inspection, nondistended, normoactive bowel sounds Extremity General Extremity: edema bilateral lower extremity; Negative for clubbing Skin no rashes or lesions noted Neuro CN's II-XII intact bilaterally and no focal motor deficits Psych cooperative and affect normal Lab / Micro Data Result Diagrams: 09/10/22 03:20 09/10/22 03:20 Labs: Laboratory Results - last 24 hr 09/08/22 05:42: WBC 10.6, RBC 3.59 L, Hgb 9.8 L, Hct 33.6 L, MCV 93.6, MCH 27.3, MCHC 29.2 L, RDW Std Deviation 48.0 H, RDW Coeff of David 14.1, Plt Count 190, MPV 10.8, Immature Gran % (Auto) 1.100 H, Neut % (Auto) 71.0 H, Lymph % (Auto) 19.3, Nobles % (Auto) 7.1, Eos % (Auto) 1.2, Baso % (Auto) 0.3, Absolute Neuts (auto) 7.5, Absolute Lymphs (auto) 2.04, Nucleated RBC % 0 09/08/22 05:42: Sodium 139, Potassium 4.0, Chloride 93 L, Carbon Dioxide 42.0 H, Anion Gap 4 L, BUN 31 H, Creatinine 1.61 H, Estim Creat Clear Calc 34.79, Est GFR (MDRD) Af Amer 42 L, Est GFR (MDRD) Non-Af 35 L, BUN/Creatinine Ratio 19.3, Glucose 117 H, Calcium 9.9, Total Bilirubin 0.30, AST 9 L, ALT 13, Alkaline Phosphatase 95, Total Protein 6.3 L, Albumin 2.6 L, Globulin 3.7, Albumin/Globulin Ratio 0.7 L 09/08/22 10:41: POC Glucose 133 H 09/09/22 04:05: WBC 10.0, RBC 3.58 L, Hgb 9.7 L, Hct 33.1 L, MCV 92.5, MCH 27.1, MCHC 29.3 L, RDW Std Deviation 46.6 H, RDW Coeff of David 13.8, Plt Count 195, MPV 11.0, Immature Gran % (Auto) 1.700 H, Neut % (Auto) 68.2, Lymph % (Auto) 21.6, Nobles % (Auto) 6.5, Eos % (Auto) 1.7, Baso % (Auto) 0.3, Absolute Neuts (auto) 6.8, Absolute Lymphs (auto) 2.15, Nucleated RBC % 0 09/09/22 04:05: Sodium 141, Potassium 4.0, Chloride 95 L, Carbon Dioxide 44.0 H, Anion Gap 2 L, BUN 27 H, Creatinine 0.72, Estim Creat Clear Calc 77.79, Est GFR (MDRD) Af Amer 107, Est GFR (MDRD) Non-Af 88, BUN/Creatinine Ratio 37.7 H, Glucose 110 H, Calcium 10.0, Phosphorus 2.8, Magnesium 1.7 Micro: Microbiology 09/08/22 21:20 Stool Enteric Bacteriology - Preliminary 09/08/22 21:20 Stool C. difficile GDH Antigen & Toxins - Final 09/08/22 21:20 Stool C. difficile DNA Amplification - Final 09/08/22 00:48 Nasal Secretion SARS-CoV-2 & FLU Antigen (Rapid) - Final ABG Data ABG results: ABG 09/08/22 09/08/22 13:04 16:11 Specimen Type ART ART Sample Site L Radial L Radial pH 7.21 L 7.26 L Bicarbonate Actual 31.3 H 44.7 H Total CO2 34 48 Base Excess 3 H 18 H O2 Saturation 100 H 93 L O2 % 100 35 ABG pCO2 79.2 H* 100.2 H* ABG pO2 246 H 81 Rosa Test Positive Respiration Rate 18 O2 Delivery Device BiPAP Tidal Volume 450 POC PEEP 10 Crit Call To/Read Back Yes Yes Blood Gas Notified Whom OWEN Clinical Comments Charges/Coding Visit Charges Inpatient E&M: 05802 Init Hosp L3 09/10/22 0553 <Electronically signed by Hugo Templeton DO> Cosigner Signature (if applicable): CC: DAVE Morales; Dr. Otoniel Mei MD; Dr. Hugo Templeton DO; Dr. Jayme Corea DO; Dr. Pawel Oswald MD; Dr. Aguila Merchant MD; Sepideh Patterson MD~ Signed [facility] Work Phone: 1(871) 608-190806-03-[address] Pascual [facility] September 09, 2022 9:50am Note Date/Time September 09, 2022 7:20a m [facility] Medical Records Department [address] [place] [address] Progress Note - Hospitalist 09/09/22 0719 MR#: [id number] Acct: [id number] Name: HE LAUREANO Rep #:[id number] : 1960 61 From: Leanna Pascual MD PCP: Sepideh Patterson MD Status:ADM IN Location: ICU ICU02-1 Reason for Visit Reason for Visit: Diagnoses Acute kidney failure, unspecified (09/08/22) Urinary tract infection, site not specified (09/08/22) Subjective Subjective Patient was transferred to the intensive care unit after she was found to be significantly lethargic ABGs demonstrated hypercapnia. An assessment of acute hypoxic and hypercapnic respiratory failure made placed on BiPAP with consultation placed to pulmonary medicine Objective Data Objective Data Vital Signs: Vital Signs Temp Pulse Resp BP Pulse Ox O2 Del Method O2 Flow Rate 98.4 F 96 24 H 118/64 92 Bi-pap 4 09/09/22 07:00 09/09/22 07:00 09/09/22 07:00 09/09/22 07:00 09/09/22 07:00 09/09/22 07:00 09/09/22 05:01 FiO2 35 09/09/22 07:00 Oxygen Flow Rate (L/min) 4 Oxygen Delivery Method Bi-pap Weight: 177.9 kg Body Mass Index (BMI) 63.3 Intake & Output: Intake and Output for Last 24 Hours 09/07/22 09/08/22 09/09/22 23:59 23:59 23:59 Intake Total 1546.5 / 1546.5 Output Total 1100 / 1100 250 / 250 Balance 446.5 / 446.5 -250 / -250 Lab / Micro Data Result Diagrams: 09/09/22 04:05 09/09/22 04:05 Labs: Laboratory Results - last 24 hr 09/08/22 10:41: POC Glucose 133 H 09/09/22 04:05: WBC 10.0, RBC 3.58 L, Hgb 9.7 L, Hct 33.1 L, MCV 92.5, MCH 27.1,MCHC 29.3 L, RDW Std Deviation 46.6 H, RDW Coeff of David 13.8, Plt Count 195, MPV11.0, Immature Gran % (Auto) 1.700 H, Neut % (Auto) 68.2, Lymph % (Auto) 21.6, Nobles % (Auto) 6.5, Eos % (Auto) 1.7, Baso % (Auto) 0.3, Absolute Neuts (auto) 6.8, Absolute Lymphs (auto) 2.15, Nucleated RBC % 0 09/09/22 04:05: Sodium 141, Potassium 4.0, Chloride 95 L, Carbon Dioxide 44.0 H,Anion Gap 2 L, BUN 27 H, Creatinine 0.72, Estim Creat Clear Calc 77.79, Est GFR (MDRD) Af Amer 107, Est GFR (MDRD) Non-Af 88, BUN/Creatinine Ratio 37.7 H, Glucose 110 H, Calcium 10.0, Phosphorus 2.8, Magnesium 1.7 Micro: Microbiology 09/08/22 21:20 Stool Enteric Bacteriology - Preliminary 09/08/22 21:20 Stool C. difficile GDH Antigen & Toxins - Final 09/08/22 21:20 Stool C. difficile DNA Amplification - Final 09/08/22 00:48 Nasal Secretion SARS-CoV-2 & FLU Antigen (Rapid) - Final ABG Data ABG results: ABG 09/08/22 09/08/22 13:04 16:11 Specimen Type ART ART Sample Site L Radial L Radial pH 7.21 L 7.26 L Bicarbonate Actual 31.3 H 44.7 H Total CO2 34 48 Base Excess 3 H 18 H O2 Saturation 100 H 93 L O2 % 100 35 ABG pCO2 79.2 H* 100.2 H* ABG pO2 246 H 81 Rosa Test Positive Respiration Rate 18 O2 Delivery Device BiPAP Tidal Volume 450 POC PEEP 10 Crit Call To/Read Back Yes Yes Blood Gas Notified Whom BROWN Clinical Comments Physical Exam Narrative GENERAL: Patient on BiPAP HEENT: Atraumatic; normocephalic EYES; Anicteric, Normal Conjunctiva NECK; supple, normal thyroid, RESPIRATORY: Diminished to auscultation CARDIOVASCULAR: Regular S1 S2, GI: soft, normoactive bowel sounds, : No Renal angle tenderness; EXTREMITIES: No edema, no clubbing, MUSCULOSKELETAL: no muscle wasting NEURO: Awake; no lateralizing signs. SKIN: No Rash PSYCH; Flat affect Assessment & Plan Assessment/Plan (1) UTI (urinary tract infection): (2) Acute kidney injury: PLAN: Plan Patient is a 61-year-old lady admitted with rigors diagnosed with acute cystitisadmitted to regular nursing floor for further management 1. Acute cystitis ? Patient admitted to regular nursing floor urine culture sent patient started on broad-spectrum antibiotic therapy With ceftriaxone ? 09/09/2022; urine and blood cultures pending 2. Acute kidney injury Patient baseline creatinine from 07/26/2022 was 0.54 creatinine on admission was 1.47 went up to 1.61 started on IV fluid with subsequent monitoring of electrolytes ordered ? 09/09/2022 kidney function back to baseline 3. Acute metabolic encephalopathy ? Secondary to acute respiratory failure with significant hypercapnia 4. Acute on chronic hypoxic respiratory failure ? Due to combination of sleep apnea and obesity hypoventilation syndrome patientwas transferred to the intensive care unit following deterioration in her mentalstatus placed on noninvasive ventilation BiPAP with consultation placed to pulmonary medicine 3. Essential hypertension ? Did continue patient home medication except for losartan 4.? Chronic hypoxic respiratory failure ? Due to obstructive sleep apnea as well as obesity hypoventilation syndrome patient is on baseline oxygen 5.? Obesity hypoventilation syndrome ? Consistent use of BiPAP encouraged 6.? COPD ? Currently not in exacerbation aerosol treatments as needed 7.?Class III obesity with BMI of 63 ? Weight loss advised 9.GERD ? On PPI 10. Depression ? Patient is on SSRI did continue 11. Anemia - Secondary to chronic disorder monitoring H&H and transfuse if patient becomes symptomatic or hemoglobin falls below 7 12. DVT prophylaxis ? SC heparin Time spent in the patient's overall evaluation,decision-making process, review of diagnostic data, adjustment of management, discussion with other providers, nursing nursing and ancillary staff involved in patient's care documentation, 50minutes Charges/Coding Visit Charges Inpatient E&M: 08026 Subs Hosp L3 09/09/22 0950 <Electronically signed by Leanna Pascual MD> Cosigner Signature (if applicable): CC: ~ Signed [facility] Work Phone: 1(573) 691-324206-02-[address] Pascual [facility] September 08, 2022 10:10am Note Date/Time September 08, 2022 10:04 am [facility] Medical Records Department [address] [place] [address] Progress Note - Hospitalist 09/08/22 1002 MR#: [id number] Acct: [id number] Name: HE LAUREANO Rep #:[id number] : 1960 61 From: Leanna Pascual MD PCP: Sepideh Patterson MD Status:ADM IN [facility] Reason for Visit Reason for Visit: Diagnoses Acute kidney failure, unspecified (09/08/22) Urinary tract infection, site not specified (09/08/22) Subjective Subjective Patient is a 61-year-old lady admitted with rigors diagnosed with acute cystitisadmitted to regular nursing floor for further management Objective Data Objective Data Vital Signs: Vital Signs Temp Pulse Resp BP Pulse Ox O2 Del Method O2 Flow Rate 97.4 F L 103 H 20 H 125/109 H 96 Nasal Cannula 4 09/08/22 05:21 09/08/22 06:56 09/08/22 06:56 09/08/22 05:21 09/08/22 06:56 09/08/22 06:56 09/08/22 06:56 Oxygen Flow Rate (L/min) 4 Oxygen Delivery Method Nasal Cannula Weight: 177.1 kg Body Mass Index (BMI) 63.0 Intake & Output: Intake and Output for Last 24 Hours 09/06/22 09/07/22 09/08/22 23:59 23:59 23:59 Intake Total 250 / 250 Balance 250 / 250 Lab / Micro Data Result Diagrams: 09/08/22 05:42 09/08/22 05:42 Labs: Laboratory Results - last 24 hr 09/08/22 00:48: WBC 12.2 H, RBC 3.80 L, Hgb 10.5 L, Hct 36.0 L, MCV 94.7, MCH 27.6, MCHC 29.2 L, RDW Std Deviation 49.4 H, RDW Coeff of David 14.1, Plt Count 235, MPV 11.1, Immature Gran % (Auto) 0.900, Neut % (Auto) 75.3 H, Lymph % (Auto) 15.7 L, Nobles % (Auto) 6.6, Eos % (Auto) 1.3, Baso % (Auto) 0.2, Absolute Neuts (auto) 9.2 H, Absolute Lymphs (auto) 1.91, Nucleated RBC % 0 09/08/22 00:48: Sodium 138, Potassium 4.3, Chloride 91 L, Carbon Dioxide 44.0 H,Anion Gap 3 L, BUN 28 H, Creatinine 1.47 H, Estim Creat Clear Calc 38.10, Est GFR (MDRD) Af Amer 47 L, Est GFR (MDRD) Non-Af 38 L, BUN/Creatinine Ratio 19.0, Glucose 145 H, Calcium 10.5 H, Troponin I High Sens 14 09/08/22 00:48: B-Natriuretic Peptide 8.1 09/08/22 00:48: D-Dimer Quant (PE/DVT) 0.36 09/08/22 01:05: Urine Color Yellow, Urine Clarity Turbid, Urine pH 5.0, Ur Specific [place] 1.020, Urine Protein 100 H, Urine Glucose (UA) Normal, Urine Ketones Negative, Urine Occult Blood 150 H, Urine Nitrite Negative, Urine Bilirubin Negative, Urine Urobilinogen Normal, Ur Leukocyte Esterase 500 H, Urine RBC 0 SEEN, Urine WBC >100 SEEN, Ur Squamous Epith Cells 0 SEEN, Urine Bacteria 4+, Urine Mucus 0 SEEN 09/08/22 01:50: Lactic Acid 1.4 09/08/22 05:42: WBC 10.6, RBC 3.59 L, Hgb 9.8 L, Hct 33.6 L, MCV 93.6, MCH 27.3,MCHC 29.2 L, RDW Std Deviation 48.0 H, RDW Coeff of David 14.1, Plt Count 190, MPV10.8, Immature Gran % (Auto) 1.100 H, Neut % (Auto) 71.0 H, Lymph % (Auto) 19.3,Nobles % (Auto) 7.1, Eos % (Auto) 1.2, Baso % (Auto) 0.3, Absolute Neuts (auto) 7.5, Absolute Lymphs (auto) 2.04, Nucleated RBC % 0 09/08/22 05:42: Sodium 139, Potassium 4.0, Chloride 93 L, Carbon Dioxide 42.0 H,Anion Gap 4 L, BUN 31 H, Creatinine 1.61 H, Estim Creat Clear Calc 34.79, Est GFR (MDRD) Af Amer 42 L, Est GFR (MDRD) Non-Af 35 L, BUN/Creatinine Ratio 19.3, Glucose 117 H, Calcium 9.9, Total Bilirubin 0.30, AST 9 L, ALT 13, Alkaline Phosphatase 95, Total Protein 6.3 L, Albumin 2.6 L, Globulin 3.7, Albumin/Globulin Ratio 0.7 L Micro: Microbiology 09/08/22 00:48 Nasal Secretion SARS-CoV-2 & FLU Antigen (Rapid) - Final ABG Data ABG results: ABG 09/08/22 01:52 Specimen Type MAXIM VBG pH 7.32 VBG pO2 22 L VBG HCO3 50 H VBG Total CO2 > 50 H VBG O2 Sat (Calc) 28 L VBG Base Excess 24 H POC Mix VBG pCO2 Pt Tmp 96.8 H* O2 Delivery Device Nasal Can Liter Flow 4.0 Crit Call To/Read Back Yes Blood Gas Notified Whom ED MD Blood Gas Notified Time 0152 Radiography Diagnostic Testing: Radiology Impression Chest X-Ray 09/08/22 01:59 IMPRESSION: Likely right-sided pneumonia with concomitant pleural effusion Electronically Signed: Tres Caldwell MD at 2:32 EDT , Physical Exam Narrative GENERAL: cooperative HEENT: Atraumatic; normocephalic EYES; Anicteric, Normal Conjunctiva NECK; supple, normal thyroid, RESPIRATORY: Diminished to auscultation CARDIOVASCULAR: Regular S1 S2, GI: soft, normoactive bowel sounds, : No Renal angle tenderness; EXTREMITIES: No edema, no clubbing, MUSCULOSKELETAL: no muscle wasting NEURO: Awake; no lateralizing signs. SKIN: No Rash PSYCH; Flat affect Assessment & Plan Assessment/Plan (1) UTI (urinary tract infection): (2) Acute kidney injury: PLAN: Plan Patient is a 61-year-old lady admitted with rigors diagnosed with acute cystitisadmitted to regular nursing floor for further management 1. Acute cystitis ? Patient admitted to regular nursing floor urine culture sent patient started on broad-spectrum antibiotic therapy With ceftriaxone 2. Acute kidney injury Patient baseline creatinine from 07/26/2022 was 0.54 creatinine on admission was 1.47 went up to 1.61 started on IV fluid with subsequent monitoring of electrolytes ordered 3. Essential hypertension ? Did continue patient home medication except for losartan 4.? Chronic hypoxic respiratory failure ? Due to obstructive sleep apnea as well as obesity hypoventilation syndrome patient is on baseline oxygen 5.? Obesity hypoventilation syndrome ? Consistent use of BiPAP encouraged 6.? COPD ? Currently not in exacerbation aerosol treatments as needed 7.?Class III obesity with BMI of 63 ? Weight loss advised 9.GERD ? On PPI 10. Depression ? Patient is on SSRI did continue 11. DVT prophylaxis ? SC heparin Time spent in the patient's overall evaluation,decision-making process, review of diagnostic data, adjustment of management, discussion with other providers, nursing nursing and ancillary staff involved in patient's care documentation, 50minutes Charges/Coding Visit Charges Inpatient E&M: 97093 Subs Hosp 09/08/22 1010 <Electronically signed by Leanna Pascual MD> Cosigner Signature (if applicable): CC: ~ Signed [facility] Work Phone: 1(595) 446-667106-02-[address] Bonilla [facility] September 08, 2022 6:52am Note Date/Time September 08, 2022 12:21 am [facility] Medical Records Department [address] [place] [address] Emergency Department Summary 09/08/22 MR#: [id number] Acct: [id number] Name: HE LAUREANO Rep #:[id number] : 1960 61 From: Sarah Bonilla DO PCP: Sepideh Patterson MD Status:ADM IN Location: [place] [address] HPI History of Present Illness Chief Complaint: Shortness of Breath Detail of Chief Complaint: Twitching Informant: patient Narrative Narrative: Patient presents to the emergency department with a generalized shaking or twitching has been going on for 2 days. Patient states she has had it before months ago. She was also sent in because her O2 sats been in the 70s despite being on 4 L of O2. Patient denies any chest pain or shortness of breath. She denies fever or cough. Patient is at a extended care facility currently. She does not ambulate she had a fractured right ankle in March of last year. No history of PE or DVT. [facility] Medical History Acute kidney failure with tubular necrosis Chronic anemia Chronic pain Chronic respiratory failure with hypoxia COPD (chronic obstructive pulmonary disease) Depression Fibromyalgia GERD (gastroesophageal reflux disease) HFrEF (heart failure with reduced ejection fraction) HTN (hypertension) Hyperlipidemia Morbid obesity Obesity hypoventilation syndrome MARISOL (obstructive sleep apnea) Peptic ulcer disease Personal history of transient ischemic attack (TIA), and cerebral infarction without residual deficits Seasonal allergies TIA (transient ischemic attack) UTI (urinary tract infection) Vitamin D deficiency Home Medications acetaminophen 325 mg tablet 650 mg PO TID PAIN 05/03/22 [History Last Taken 05/28/22] amitriptyline 25 mg tablet 25 mg PO QODAY DEPRESSION 05/03/22 [History Last Taken 05/26/22] atorvastatin 20 mg tablet 20 mg PO QHS CHOLESTEROL 05/03/22 [History Last Taken 05/27/22] calcium polycarbophil 625 mg tablet (FiberCon) 625 mg PO DAILY CONSTIPATION 05/03/22 [History Last Taken 05/28/22] cyclobenzaprine 10 mg tablet 10 mg PO TID MUSCLE SPASMS 05/03/22 [History Last Taken 05/28/22] ergocalciferol (vitamin D2) 1,250 mcg (50,000 unit) capsule (Vitamin D2) 1,250 mcg PO SA SUPPLEMENT 05/03/22 [History Last Taken 05/27/22] famotidine 20 mg tablet 20 mg PO BID GERD 05/03/22 [History Last Taken 05/28/22] fluticasone propionate 50 mcg/actuation nasal spray,suspension 2 spray intranasal BID NASAL CONGESTION 05/03/22 [History Last Taken 05/28/22] guaifenesin 600 mg tablet, extended release 12 hr (Mucinex) 600 mg PO BID CONGESTION 05/03/22 [History Last Taken 05/28/22] lidocaine 4 % topical patch 1 patch topical DAILY PAIN 05/03/22 [History Last Taken 05/28/22] losartan 50 mg tablet 50 mg PO DAILY BLOOD PRESSURE 05/03/22 [History Last Taken 05/28/22] montelukast 10 mg tablet 10 mg PO DAILY ALLERGIES 05/03/22 [History Last Taken 05/28/22] omeprazole 20 mg tablet,delayed release 20 mg PO DAILY GERD 05/03/22 [History Last Taken 05/28/22] roflumilast 500 mcg tablet (Daliresp) 500 mcg PO DAILY ASTHMA 05/03/22 [History Last Taken 05/28/22] sertraline 100 mg tablet (Zoloft) 100 mg PO QHS DEPRESSION 05/03/22 [History Last Taken 05/27/22] tiotropium bromide 2.5 mcg/actuation mist for inhalation (Spiriva Respimat) 2 puff inhalation QHS ASTHMA 05/03/22 [History Last Taken 05/27/22] dicyclomine 10 mg capsule 10 mg PO 4X/DAY #1 cap 05/05/22 [Rx Last Taken 05/28/22] sucralfate 1 gram tablet 1 g PO TID@0700,1100,1600 #0 tabs 05/05/22 [Rx Last Taken 05/28/22] nystatin 100,000 unit/gram topical powder (Nyamyc) 1 applic topical TID affectedareas 05/14/22 [History Last Taken 05/28/22] gabapentin 300 mg capsule 300 mg PO BID NEUROPATHY 05/28/22 [History Last Taken 05/28/22] potassium chloride 20 mEq oral packet 20 meq PO DAILY SUPPLEMENT 05/28/22 [History Last Taken 05/28/22] acetaminophen 325 mg tablet (Tylenol) 650 mg PO Q6H PRN PRN Pain 1-10 Or Fever>100.7 #0 tabs 05/30/22 [Rx Last Taken Unknown] furosemide 40 mg tablet 40 mg PO DAILY #30 tabs 05/30/22 [Rx Last Taken Unknown] prednisone 20 mg tablet 40 mg PO DAILY 5 days #10 tabs 05/30/22 [Rx Last Taken Unknown] Allergy/AdvReac Type Severity Reaction Status Date / Time aspirin Allergy Other Verified 09/08/22 00:15 black pepper [pepper] Allergy Other Verified 09/08/22 00:15 coconut Allergy Other Verified 09/08/22 00:15 codeine Allergy Other Verified 09/08/22 00:15 ibuprofen Allergy Other Verified 09/08/22 00:15 Influenza Virus Vaccines Allergy Other Verified 09/08/22 00:15 Penicillins Allergy Anaphylaxis Verified 09/08/22 00:15 rice Allergy Other Verified 09/08/22 00:15 tetanus and diphtheria Allergy Other Verified 09/08/22 00:15 toxoids Tetanus Vaccines and Toxoid Allergy Other Verified 09/08/22 00:15 Family History Other CAD (coronary artery disease) COPD (chronic obstructive pulmonary disease) Hypertension Social History housing: assisted Smoking Status: Former smoker alcohol intake: never substance use type: does not use ROS ROS ED Review of Systems ROS Unobtainable: other Constitutional Constitutional ED: Reports lethargy; Denies chills, fever(s), sweats or weight loss Eyes Eyes: Denies blurry vision, change in vision or diplopia ENT ENT ED: Denies rhinorrhea or sore throat Cardiovascular Cardiovascular: Denies chest pain, orthopnea or racing heartbeat Respiratory/Chest Respiratory/Chest: Denies cough, dyspnea, dyspnea on exertion, orthopnea or sputum Gastrointestinal Gastrointestinal: Denies abdominal pain, diarrhea, nausea or vomiting Genitourinary Genitourinary ED: Denies dysuria, hematuria or urinary frequency Musculoskeletal Musculoskeletal: Denies arthralgias, back pain, myalgias or neck pain Integumentary Denies abscess, Abrasions or rash Neurologic Neurologic: Reports other Details: Shaking/twitching ; Denies headache(s) or weakness Psychiatric Psychiatric: Denies anxiety, depression or suicidal thoughts Endocrine Endocrinology: Denies polydipsia, polyphagia or polyuria Hematologic/Lymphatic Hematologic/Lymphatic: Denies easy bleeding, easy bruising or lymphadenopathy Allergic/Immunologic Allergic/Immunologic ED: Denies mouth swelling, tongue swelling or urticaria EXAM Physical Exam Const Vital Signs: 09/08/22 00:03 09/08/22 00:10 09/08/22 01:39 Temperature 97.4 F L Temperature Source Temporal Pulse Rate 107 H 104 H Respiratory Rate 20 H 17 Respiratory Effort Short of Breath Respiratory Depth Normal Respiratory Pattern Normal Blood Pressure 157/102 H Blood Pressure Mean 120 Pulse Ox 91 94 Oxygen Delivery Method Nasal Cannula Nasal Cannula Nasal Cannula Oxygen Flow Rate (L/min) 4 4 4 09/08/22 01:52 Temperature 97.4 F L Temperature Source Temporal Pulse Rate 102 H Respiratory Rate 18 Respiratory Effort Respiratory Depth Respiratory Pattern Blood Pressure 117/105 H Blood Pressure Mean 109 Pulse Ox 95 Oxygen Delivery Method Nasal Cannula Oxygen Flow Rate (L/min) 4 Positive well nourished and well developed General Appearance ED: well developed and NAD HEENT Reports TM's clear and moist mucous membranes normocephalic and atraumatic; Negative for trauma or tenderness Tympanic Membrane ED: Yes TM's clear Eyes PERRL and EOMs intact bilaterally General Eye ED: Negative for pale conjunctiva or scleral icterus Neck no lymphadenopathy, supple and no JVD General: Negative for tenderness Chest Wall inspection of chest normal and palpation of chest normal Chest: Negative for tenderness Resp normal respiratory effort and clear to auscultation bilaterally Effort and Inspection: Negative for respiratory distress or pain with movement Auscultation: Negative for rhonchi, wheezes or diminished lung sounds Cardio regular rate, regular rhythm, S1 normal heart sound, S2 normal heart sound and no murmurs Peripheral Pulses: pulses 2+ throughout GI normal to inspection, nondistended, normoactive bowel sounds, soft to palpation, non-tender, non-distended and no masses Back/Spine no CVA tenderness and no thoracic nor lumbar tenderness Extremity normal to inspection General Extremety ED: Negative for edema General Extremity: Negative for edema Neuro oriented x3, CN's II-XII intact bilaterally, no sensory deficits noted and gait normal Sensorium / Orientation: awake, alert, oriented to person, oriented to place and oriented to time Motor Exam: strength 5/5 throughout and strength abnormal Psych mental status grossly normal Skin no rashes or lesions noted and no wounds MDM MDM MDM Narrative Medical decision making narrative: Patient presents with intermittent shaking and twitching. There was concern about hypoxemia despite being on 4 L of O2. She does have history of chronic respiratory failure as well as COPD and history of CHF. In the differential would be hypoxemia related to CHF or COPD or pneumonia. Entertain possibility of pulmonary embolism. IV line established on arrival. 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 She is mentating normally. CBC with differential obtained showed a white count of 12.2 and hemoglobin of 10.5 and platelet count of 235. Chemistries were unremarkable. BUN was 28 and creatinine 1.47 which is a significant departure from prior visit. Troponin was normal. BNP was normal at 8.1. D-dimer was normal. Urinalysis positive for UTI. Lactate was normal. Patient was started on Rocephin 1 g IV. Urine culture was sent. Blood cultures also ordered. I ordered an ABG however patient very difficult stick and respiratory unable to obtain. We were able to do a VBG which showed a pH of 7.3 and a CO2 of 97 with a bicarb of 49.7. Case will be discussed with hospitalist to evaluate for admission for UTI and acute kidney injury and dehydration. Patient still with some mild tachycardia and clinical signs of dehydration. Lab Data Attestation: I reviewed the patient's lab results. Labs: Laboratory Results - last 24 hr 09/08/22 09/08/22 09/08/22 00:48 00:48 00:48 WBC 12.2 H RBC 3.80 L Hgb 10.5 L Hct 36.0 L MCV 94.7 MCH 27.6 MCHC 29.2 L RDW Std Deviation 49.4 H RDW Coeff of David 14.1 Plt Count 235 MPV 11.1 Immature Gran % (Auto) 0.900 Neut % (Auto) 75.3 H Lymph % (Auto) 15.7 L Nobles % (Auto) 6.6 Eos % (Auto) 1.3 Baso % (Auto) 0.2 Absolute Neuts (auto) 9.2 H Absolute Lymphs (auto) 1.91 Nucleated RBC % 0 D-Dimer Quant (PE/DVT) Sodium 138 Potassium 4.3 Chloride 91 L Carbon Dioxide 44.0 H Anion Gap 3 L BUN 28 H Creatinine 1.47 H Estim Creat Clear Calc 38.10 Est GFR (MDRD) Af Amer 47 L Est GFR (MDRD) Non-Af 38 L BUN/Creatinine Ratio 19.0 Glucose 145 H Lactic Acid Calcium 10.5 H Troponin I High Sens 14 B-Natriuretic Peptide 8.1 Urine Color Urine Clarity Urine pH Ur Specific [place] Urine Protein Urine Glucose (UA) Urine Ketones Urine Occult Blood Urine Nitrite Urine Bilirubin Urine Urobilinogen Ur Leukocyte Esterase Urine RBC Urine WBC Ur Squamous Epith Cells Urine Bacteria Urine Mucus 09/08/22 09/08/22 09/08/22 00:48 01:05 01:50 WBC RBC Hgb Hct MCV MCH MCHC RDW Std Deviation RDW Coeff of David Plt Count MPV Immature Gran % (Auto) Neut % (Auto) Lymph % (Auto) Nobles % (Auto) Eos % (Auto) Baso % (Auto) Absolute Neuts (auto) Absolute Lymphs (auto) Nucleated RBC % D-Dimer Quant (PE/DVT) 0.36 Sodium Potassium Chloride Carbon Dioxide Anion Gap BUN Creatinine Estim Creat Clear Calc Est GFR (MDRD) Af Amer Est GFR (MDRD) Non-Af BUN/Creatinine Ratio Glucose Lactic Acid 1.4 Calcium Troponin I High Sens B-Natriuretic Peptide Urine Color Yellow Urine Clarity Turbid Urine pH 5.0 Ur Specific [place] 1.020 Urine Protein 100 H Urine Glucose (UA) Normal Urine Ketones Negative Urine Occult Blood 150 H Urine Nitrite Negative Urine Bilirubin Negative Urine Urobilinogen Normal Ur Leukocyte Esterase 500 H Urine RBC 0 SEEN Urine WBC >100 SEEN Ur Squamous Epith Cells 0 SEEN Urine Bacteria 4+ Urine Mucus 0 SEEN Radiography Diagnostic Testin view chest x-ray obtained interpreted by myself as technically difficult study as patient rotated however when compared with prior EKG had not appreciate any obvious infiltrate or acute process. Official report from radiology pending Discharge Plan Triage Chief Complaint: Shortness of Breath ED Provider: Sarah Bonilla Dx/Rx/DC Orders Clinical Impression: UTI (urinary tract infection), Acute kidney injury, Leukocytosis, Chronic respiratory failure Prescriptions: No Action losartan 50 mg Tablet 50 mg PO DAILY cyclobenzaprine 10 mg Tablet 10 mg PO TID acetaminophen 325 mg Tablet 650 mg PO TID atorvastatin 20 mg Tablet 20 mg PO QHS lidocaine 4 % Adhesive Patch,Medicated 1 patch TOPICAL DAILY sertraline [Zoloft] 100 mg Tablet 100 mg PO QHS famotidine 20 mg Tablet 20 mg PO BID amitriptyline 25 mg Tablet 25 mg PO QODAY calcium polycarbophil [FiberCon] 625 mg Tablet 625 mg PO DAILY montelukast 10 mg Tablet 10 mg PO DAILY ergocalciferol (vitamin D2) [Vitamin D2] 1,250 mcg (50,000 unit) Capsule 1,250 mcg PO SA fluticasone propionate 50 mcg/actuation [place],Suspension 2 spray INTRANASAL BID omeprazole 20 mg Tablet,Delayed Release (Dr/Ec) 20 mg PO DAILY roflumilast [Daliresp] 500 mcg Tablet 500 mcg PO DAILY Spiriva Respimat 2.5 mcg/actuation Mist 2 puff INHALATION QHS guaifenesin [Mucinex] 600 mg Tablet Extended Release 12hr 600 mg PO BID sucralfate 1 gram Tablet 1 g PO TID@0700,1100,1600 Qty: 0 0RF dicyclomine 10 mg Capsule 10 mg PO 4X/DAY Qty: 1 0RF nystatin [Nyamyc] 100,000 unit/gram powder 1 applic topical TID Protocol: *Topical Application Instructions APPLICATION INSTRUCTIONS: affected areas potassium chloride 20 mEq Packet 20 meq PO DAILY gabapentin 300 mg Capsule 300 mg PO BID acetaminophen [Tylenol] 325 mg Tablet 650 mg PO Q6H PRN PRN (Reason: Pain 1-10 Or Fever>100.7) Qty: 0 0RF prednisone 20 mg tablet 40 mg PO DAILY 5 Days Qty: 10 0RF furosemide 40 mg tablet 40 mg PO DAILY Qty: 30 0RF Primary Care Provider: Sepideh Patterson Referrals: Sepideh Patterson MD [Primary Care Provider] - Disposition Disposition: Acute Care Hospital [facility] What to do if you have Problems For any increased pain, shortness of breath, bleeding, nausea or vomiting, chestpain, or any unexpected problems, contact your Primary Care Provider. Call [facility] ([phone]) or report to the closest Emergency Room. Call 911 if necessary. 09/08/2252 <Electronically signed by Sarah Bonilla DO> Cosigner Signature (if applicable): CC: Sepideh Patterson MD ~ Signed [facility] Work Phone: [phone] 565-293406-02-2023 History and physical note Author Dr. Corea [facility] September 08, 2022 4:58am Note Date/Time September 08, 2022 3:14a m [facility] Medical Records Department [address] [place] [address] H&P Exam - Hospitalist 09/08/22 0306 MR#: [id number] Acct: [id number] Name: HE LAUREANO Rep #:[id number] : 1960 61 From: Jayme Corea DO PCP: Gudla,Sepideh MD Status:ADM IN Location: MS3 [id number] HPI - General General Date of Admission: 09/08/22 Date of Service: 09/08/22 Chief Complaint: rigors HPI Narrative HE LAUREANO, is a 61 F who presents with reported rigors.-Going on for the past couple days. Patient was also sent in because her pulse ox was low in the 70s despite using 4 L of oxygen. Patient is to be using a BiPAP at night which she says she uses when she does not need the outlets otherwise she will use it so she can plug her phone and her fan. In the ER, patient sats were in the 90s. Patient was found to have a urinary tract infection and did receive ceftriaxone. Her creatinine was elevated at 1.47, up from 0.54 from July 26. Patient is breathing fine and did not require any additional oxygen beyond her 4L. 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 deficits Seasonal allergies TIA (transient ischemic attack) UTI (urinary tract infection) Vitamin D deficiency Home Medications acetaminophen 325 mg tablet 650 mg PO TID PAIN 05/03/22 [History Last Taken 05/28/22] amitriptyline 25 mg tablet 25 mg PO QODAY DEPRESSION 05/03/22 [History Last Taken 05/26/22] atorvastatin 20 mg tablet 20 mg PO QHS CHOLESTEROL 05/03/22 [History Last Taken 05/27/22] cyclobenzaprine 10 mg tablet 10 mg PO TID MUSCLE SPASMS 05/03/22 [History Last Taken 05/28/22] ergocalciferol (vitamin D2) 1,250 mcg (50,000 unit) capsule (Vitamin D2) 1,250 mcg PO SA SUPPLEMENT 05/03/22 [History Last Taken 05/27/22] famotidine 20 mg tablet 20 mg PO BID GERD 05/03/22 [History Last Taken 05/28/22] fluticasone propionate 50 mcg/actuation nasal spray,suspension 2 spray intranasal BID NASAL CONGESTION 05/03/22 [History Last Taken 05/28/22] lidocaine 4 % topical patch 1 patch topical DAILY PAIN 05/03/22 [History Last Taken 05/28/22] losartan 50 mg tablet 50 mg PO DAILY BLOOD PRESSURE 05/03/22 [History Last Taken 05/28/22] montelukast 10 mg tablet 10 mg PO DAILY ALLERGIES 05/03/22 [History Last Taken 05/28/22] omeprazole 20 mg tablet,delayed release 20 mg PO DAILY GERD 05/03/22 [History Last Taken 05/28/22] roflumilast 500 mcg tablet (Daliresp) 500 mcg PO DAILY ASTHMA 05/03/22 [History Last Taken 05/28/22] sertraline 100 mg tablet (Zoloft) 100 mg PO QHS DEPRESSION 05/03/22 [History Last Taken 05/27/22] tiotropium bromide 2.5 mcg/actuation mist for inhalation (Spiriva Respimat) 2 puff inhalation QHS ASTHMA 05/03/22 [History Last Taken 05/27/22] dicyclomine 10 mg capsule 10 mg PO 4X/DAY #1 cap 05/05/22 [Rx Last Taken 05/28/22] nystatin 100,000 unit/gram topical powder (Nyamyc) 1 applic topical TID affectedareas 05/14/22 [History Last Taken 05/28/22] gabapentin 300 mg capsule 300 mg PO BID NEUROPATHY 05/28/22 [History Last Taken 05/28/22] furosemide 40 mg tablet 40 mg PO DAILY #30 tabs 05/30/22 [Rx Last Taken Unknown] prednisone 20 mg tablet 10 mg PO DAILY 09/08/22 [History Last Taken Unknown] Allergy/AdvReac Type Severity Reaction Status Date / Time aspirin Allergy Other Verified 09/08/22 00:15 black pepper [pepper] Allergy Other Verified 09/08/22 00:15 coconut Allergy Other Verified 09/08/22 00:15 codeine Allergy Other Verified 09/08/22 00:15 ibuprofen Allergy Other Verified 09/08/22 00:15 Influenza Virus Vaccines Allergy Other Verified 09/08/22 00:15 Penicillins Allergy Anaphylaxis Verified 09/08/22 00:15 rice Allergy Other Verified 09/08/22 00:15 tetanus and diphtheria Allergy Other Verified 09/08/22 00:15 toxoids Tetanus Vaccines and Toxoid Allergy Other Verified 09/08/22 00:15 Family History Other CAD (coronary artery disease) COPD (chronic obstructive pulmonary disease) Hypertension Social History housing: assisted Smoking Status: Former smoker alcohol intake: never substance use type: does not use ROS ROS Narrative All review of systems were negative except as mentioned above in the history of present illness and the other review of systems. Vital Signs Vital Signs Vital Signs: 09/08/22 00:03 09/08/22 00:10 09/08/22 01:39 Temperature 36.3 C L Temperature Source Temporal Pulse Rate 107 H 104 H Respiratory Rate 20 H 17 Respiratory Effort Short of Breath Respiratory Depth Normal Respiratory Pattern Normal Blood Pressure 157/102 H Blood Pressure Mean 120 Pulse Ox 91 94 Oxygen Delivery Method Nasal Cannula Nasal Cannula Nasal Cannula Oxygen Flow Rate (L/min) 4 4 4 09/08/22 01:52 09/08/22 02:55 Temperature 36.3 C L 36.4 C L Temperature Source Temporal Temporal Pulse Rate 102 H 105 H Respiratory Rate 18 17 Respiratory Effort Respiratory Depth Respiratory Pattern Blood Pressure 117/105 H 131/94 H Blood Pressure Mean 109 106 Pulse Ox 95 94 Oxygen Delivery Method Nasal Cannula Nasal Cannula Oxygen Flow Rate (L/min) 4 4 Weight Weight: 173 kg Body Mass Index (BMI) 61.5 Physical Exam Const alert and no apparent distress Constitutional Narrative: No conversational dyspnea. No respiratory distress. General Appearance: cooperative Eyes Eyes Narrative: No icterus Neck Neck Narrative: Thick neck tissue. Resp Resp Narrative: Limited but clear anteriorly. Cardio regular rate, regular rhythm, S1 normal heart sound and S2 normal heart sound GI normal to inspection, nondistended, normoactive bowel sounds, soft to palpation, non-tender and non-distended Extremity normal to inspection Skin Skin Narrative: Had a superficial wound under her right pannus. Neuro moves all extremities Sensorium / Orientation: awake and alert Psych affect normal Results Lab / Micro Data Attestation: I reviewed the patient's lab results. Result Diagrams: 09/08/22 00:48 09/08/22 00:48 Labs: Laboratory Results - last 24 hr 09/08/22 00:48: WBC 12.2 H, RBC 3.80 L, Hgb 10.5 L, Hct 36.0 L, MCV 94.7, MCH 27.6, MCHC 29.2 L, RDW Std Deviation 49.4 H, RDW Coeff of David 14.1, Plt Count 235, MPV 11.1, Immature Gran % (Auto) 0.900, Neut % (Auto) 75.3 H, Lymph % (Auto) 15.7 L, Nobles % (Auto) 6.6, Eos % (Auto) 1.3, Baso % (Auto) 0.2, Absolute Neuts (auto) 9.2 H, Absolute Lymphs (auto) 1.91, Nucleated RBC % 0 09/08/22 00:48: Sodium 138, Potassium 4.3, Chloride 91 L, Carbon Dioxide 44.0 H, Anion Gap 3 L, BUN 28 H, Creatinine 1.47 H, Estim Creat Clear Calc 38.10, Est GFR (MDRD) Af Amer 47 L, Est GFR (MDRD) Non-Af 38 L, BUN/Creatinine Ratio 19.0, Glucose 145 H, Calcium 10.5 H, Troponin I High Sens 14 09/08/22 00:48: B-Natriuretic Peptide 8.1 09/08/22 00:48: D-Dimer Quant (PE/DVT) 0.36 09/08/22 01:05: Urine Color Yellow, Urine Clarity Turbid, Urine pH 5.0, Ur Specific [place] 1.020, Urine Protein 100 H, Urine Glucose (UA) Normal, Urine Ketones Negative, Urine Occult Blood 150 H, Urine Nitrite Negative, Urine Bilirubin Negative, Urine Urobilinogen Normal, Ur Leukocyte Esterase 500 H, Urine RBC 0 SEEN, Urine WBC >100 SEEN, Ur Squamous Epith Cells 0 SEEN, Urine Bacteria 4+, Urine Mucus 0 SEEN 09/08/22 01:50: Lactic Acid 1.4 Micro: Microbiology 09/08/22 00:48 Nasal Secretion SARS-CoV-2 & FLU Antigen (Rapid) - Final ABG Data ABG results: ABG 09/08/22 01:52 Specimen Type MAXIM VBG pH 7.32 VBG pO2 22 L VBG HCO3 50 H VBG Total CO2 > 50 H VBG O2 Sat (Calc) 28 L VBG Base Excess 24 H POC Mix VBG pCO2 Pt Tmp 96.8 H* O2 Delivery Device Nasal Can Liter Flow 4.0 Crit Call To/Read Back Yes Blood Gas Notified Whom ED Blood Gas Notified Time 0152 Radiology Impression Chest X-Ray 09/08/22 01:59 IMPRESSION: Likely right-sided pneumonia with concomitant pleural effusion Electronically Signed: Tres Caldwell MD at 2:32 EDT , Assessment & Plan Assessment/Plan (1) UTI (urinary tract infection): PLAN: I suspect this is why the patient is having these rigors. I reviewed the chest x-ray images and they are poor quality as patient is rotated right appreciating pneumonia however. Follow-up on cultures Continue with ceftriaxone (2) Acute kidney injury: PLAN: Clinically, the patient appears dry. Hold furosemide IV fluids for 1 L PLAN: Plan Chronic conditions * Chronic hypercapnic respiratory failure: Not in any acute distress at this time. Patient is to use a BiPAP but she is only using it when she does not need an outlet. Patient may benefit from getting a power strep so that she can plug her phone and fan but also her BiPAP * COPD: Currently stable * Morbid obesity: BMI is 61.6 kg/m? weight loss certainly would be of profound benefit for her * Depression: Continue with Zoloft * GERD: Continue with H2 rome VTE prophylaxis with enoxaparin CODE STATUS: Addressed with the patient. Patient wants to be full code Disposition: Though the patient has a urinary tract infection, her multiple severe comorbidities may limit a fast discharge as there is very high risk for decompensation if not properly observed and ensured that she is stable for discharge. Anticipated length of hospitalization is 48 to 72 hours. Charges/Coding Visit Charges Inpatient E&M: 18133 Init Hosp L3 09/08/22 3384 <Electronically signed by Jayme Corea DO> Cosigner Signature (if applicable): CC: Dr. Jayme Coera DO; Sepideh Patterson MD~ Signed ADDENDUM by Dr. Jayme Corea DO on 09/08/22 at 0458 Addendum Patient states that she has recently had C. difficile and has been treated. She is very concerned about being on antibiotics because her previous history of C. difficile. C. difficile test has been ordered from the emergency room. And I was notified by nursing that she refused BiPAP this evening. 09/08/22 0458<Electronically signed by Jayme Corea DO> Cosigner Signature (if applicable): cc: Dr. Jayme Corea DO; Sepideh Patterson MD ~* Signed [facility] Work Phone: [phone]) [phone] Corea [facility] May 30, 2022 2:21pm Note Date/Time May 30, 2022 2:21pm [facility] Medical Records Department [address] [place] [address] Discharge Summary 05/30/22 1420 MR#: [id number] Acct: [id number] Name: HE LAUREANO Rep #:[id number] : 1960 61 From: Jayme Corea DO PCP: Sepideh Patterson MD Status:ADM IN [id number] Providers Date of Admission: 05/28/22 Primary Care Physician: Dr. Sepideh Patterson MD Reason For Visit: RESP FAILURE Diagnosis Discharge Diagnosis (1) Hypercarbia: Status: Acute Code(s): R06.89 - Other abnormalities of breathing Plan: acute on chronic hypercapneic failure secondary to COPD exacerbation, morbid obesity, obesity hypoventilation. Less likely pneumonia. Patient is typically on 2.5 L of oxygen, currently on BiPAP ABG shows pH of 7.22 with PCO2 94.2 Infectious work-up, including respiratory panel, Legionella and Streptococcus antigen, blood cultures and COVID-19 thus far negative. DC antibiotics Continue with furosemide daily. We will arrange for BiPAP at [facility]. Patient requires volume ventilation and all other alternative therapies, including bilevel, have been considered and ruled out due to the severity of thedisease state, weak breathing muscles and potential life-threatening condition including CO2 retention probability of acute exacerbation, patient requires ventilation to be used during the day as needed, addition to every night usage with facemask. (2) Metabolic encephalopathy: Status: Acute Code(s): G93.41 - Metabolic encephalopathy Plan: Resolved 2/2 hypercapnia Plan Chronic conditions: * Obesity/Obesity hypoventilation syndrome. Outpatient obesity management recommended * Depression, continue Zoloft, amitryptiline * GERD, continue omeprazole DVT PPx- Lovenox BID Medications at Discharge Home Medications acetaminophen 325 mg tablet 650 mg PO TID PAIN 05/03/22 amitriptyline 25 mg tablet 25 mg PO QODAY DEPRESSION 05/03/22 atorvastatin 20 mg tablet 20 mg PO QHS CHOLESTEROL 05/03/22 calcium polycarbophil 625 mg tablet (FiberCon) 625 mg PO DAILY CONSTIPATION 05/03/22 cyclobenzaprine 10 mg tablet 10 mg PO TID MUSCLE SPASMS 05/03/22 ergocalciferol (vitamin D2) 1,250 mcg (50,000 unit) capsule (Vitamin D2) 1,250 mcg PO SA SUPPLEMENT 05/03/22 famotidine 20 mg tablet 20 mg PO BID GERD 05/03/22 fluticasone propionate 50 mcg/actuation nasal spray,suspension 2 spray intranasal BID NASAL CONGESTION 05/03/22 guaifenesin 600 mg tablet, extended release 12 hr (Mucinex) 600 mg PO BID CONGESTION 05/03/22 lidocaine 4 % topical patch 1 patch topical DAILY PAIN 05/03/22 losartan 50 mg tablet 50 mg PO DAILY BLOOD PRESSURE 05/03/22 montelukast 10 mg tablet 10 mg PO DAILY ALLERGIES 05/03/22 omeprazole 20 mg tablet,delayed release 20 mg PO DAILY GERD 05/03/22 roflumilast 500 mcg tablet (Daliresp) 500 mcg PO DAILY ASTHMA 05/03/22 sertraline 100 mg tablet (Zoloft) 100 mg PO QHS DEPRESSION 05/03/22 tiotropium bromide 2.5 mcg/actuation mist for inhalation (Spiriva Respimat) 2 puff inhalation QHS ASTHMA 05/03/22 dicyclomine 10 mg capsule 10 mg PO 4X/DAY #1 cap 05/05/22 sucralfate 1 gram tablet 1 g PO TID@0700,1100,1600 #0 tabs 05/05/22 nystatin 100,000 unit/gram topical powder (Nyamyc) 1 applic topical TID affectedareas 05/14/22 gabapentin 300 mg capsule 300 mg PO BID NEUROPATHY 05/28/22 potassium chloride 20 mEq oral packet 20 meq PO DAILY SUPPLEMENT 05/28/22 acetaminophen 325 mg tablet (Tylenol) 650 mg PO Q6H PRN PRN Pain 1-10 Or Fever>100.7 #0 tabs 05/30/22 furosemide 40 mg tablet 40 mg PO DAILY #30 tabs 05/30/22 prednisone 20 mg tablet 40 mg PO DAILY 5 days #10 tabs 05/30/22 Hospital Course Operations None Procedures None Summary of Care Provided Minutes Spent on Discharge: 32 Weight / BMI Weight Weight: 165.3 kg Body Mass Index (BMI) 58.8 ABG / Lab / Microbiology Data Result Diagrams: 05/29/22 05:04 05/29/22 05:04 Microbiology: Microbiology 05/28/22 11:59 Blood Culture (Wb) - Right Hand Blood Culture - Preliminary No growth in 48 hours. 05/28/22 11:23 Blood Culture (Wb) - Right Hand Blood Culture - Preliminary No growth in 48 hours. 05/28/22 13:46 Urine, Clean Catch Legionella Antigen - Final 05/28/22 13:46 Urine, Clean Catch Streptococcus pneumoniae Antigen (M - Final 05/28/22 20:08 Mucosa - Nasopharyngeal Respiratory Panel (PCR) - Final 05/28/22 11:43 Nasal Secretion SARS-CoV-2 & FLU Antigen (Rapid) - Final Meaningful Use Info Meaningful Use Diagnoses (Choose all that apply): None applicable Discharge Plan Admission Admit Date/Time: 05/28/22 14:59 Primary Reason for Your Visit: acute on chronic hypercapnic respiratory failure. Attending Provider: Jayme Corea Primary Care Provider: Sepideh Patterson Consulting Providers: Joana Perez Discharge Orders/Prescriptions Prescriptions: New acetaminophen [Tylenol] 325 mg Tablet 650 mg PO Q6H PRN PRN (Reason: Pain 1-10 Or Fever>100.7) Qty: 0 0RF prednisone 20 mg tablet 40 mg PO DAILY 5 Days Qty: 10 0RF furosemide 40 mg tablet 40 mg PO DAILY Qty: 30 0RF Continued losartan 50 mg Tablet 50 mg PO DAILY cyclobenzaprine 10 mg Tablet 10 mg PO TID acetaminophen 325 mg Tablet 650 mg PO TID atorvastatin 20 mg Tablet 20 mg PO QHS lidocaine 4 % Adhesive Patch,Medicated 1 patch TOPICAL DAILY sertraline [Zoloft] 100 mg Tablet 100 mg PO QHS famotidine 20 mg Tablet 20 mg PO BID amitriptyline 25 mg Tablet 25 mg PO QODAY calcium polycarbophil [FiberCon] 625 mg Tablet 625 mg PO DAILY montelukast 10 mg Tablet 10 mg PO DAILY ergocalciferol (vitamin D2) [Vitamin D2] 1,250 mcg (50,000 unit) Capsule 1,250 mcg PO SA fluticasone propionate 50 mcg/actuation [place],Suspension 2 spray INTRANASAL BID omeprazole 20 mg Tablet,Delayed Release (Dr/Ec) 20 mg PO DAILY roflumilast [Daliresp] 500 mcg Tablet 500 mcg PO DAILY Spiriva Respimat 2.5 mcg/actuation Mist 2 puff INHALATION QHS guaifenesin [Mucinex] 600 mg Tablet Extended Release 12hr 600 mg PO BID sucralfate 1 gram Tablet 1 g PO TID@0700,1100,1600 Qty: 0 0RF dicyclomine 10 mg Capsule 10 mg PO 4X/DAY Qty: 1 0RF nystatin [Nyamyc] 100,000 unit/gram powder 1 applic topical TID Protocol: *Topical Application Instructions APPLICATION INSTRUCTIONS: affected areas potassium chloride 20 mEq Packet 20 meq PO DAILY gabapentin 300 mg Capsule 300 mg PO BID Referrals / Follow Up: [facility] [Provider Group] - Within 1 Month Sepideh Patterson MD [Primary Care Provider] - Within 2 Weeks Disposition Disposition (needs filled in before D/C Order can be placed): NonSkilled NH/Intermed Care Charges/Coding Visit Charges Inpatient E&M: 35414 Disch Hosp >30min 05/30/22 1421 <Electronically signed by Jayme Corea DO> Cosigner Signature (if applicable): CC: Dr. Jayme Corea DO; Sepideh Patterson MD~ Signed [facility] Work Phone: [phone]) 183-102302-21-[address] Corea [facility] May 30, 2022 2:20pm Note Date/Time May 30, 2022 2:14pm [facility] Medical Records Department [address] [place] [address] Transfer to [facility] MR#: [id number] Acct: [id number] Name: HE LAUREANO Rep #:[id number] : 1960 61 From: Jayme Corea DO PCP: Sepideh Patterson MD Status:ADM IN Certification of patient admission REQUIRED AT TIME OF ADMISSION. I CERTIFY THAT POST-HOSPITAL ECF SERVICES ARE REQUIRED TO BE GIVEN ON AN IN-PATIENT BASIS BECAUSE OF THE ABOVE NAMED PATIENT'S NEED FOR RESIDENTIAL CARE ON A CONTINUING BASIS FOR THE CONDITION(S) FOR WHICH HE/SHE WAS RECEIVING IN-PATIENT HOSPITAL SERVICES PRIOR TO HIS/HER TRANSFER TO THE ECF. 05/30/22 1420<Electronically signed by Jayme Corea DO> Diet Diet Order/Speech Therapy: 05/29/22 12:56 Diet: Cardiac: Calorie-Controlled Dietary Modifications:: Sodium Restricted Is pt able to select menu?: Yes Diet Comments: allergic to rice, black pepper, coconut How many daily calories?: 1800 calorie Routine Orders/Code Status O2 Liters per Minute: 3L/m. BiPAP 16/10 with 30% FiO2. O2 Frequency: Continuous Keep PO Greater than or Equal to (%): 90 Routine Lab Work: CBC and BMP Therapies Physical Therapy: Eval and Treat Occupational Therapy: Eval and Treat Problem/Diagnosis (1) Hypercarbia: Status: Acute Code(s): R06.89 - Other abnormalities of breathing Plan: acute on chronic hypercapneic failure secondary to COPD exacerbation, morbid obesity, obesity hypoventilation. Less likely pneumonia. Patient is typically on 2.5 L of oxygen, currently on BiPAP ABG shows pH of 7.22 with PCO2 94.2 Chest X-ray showed right-sided infiltrate with pleural effusion Admit to PCU, continue breathing treatments, IV Solu-Medrol, IV Levaquin Infectious work-up, including respiratory panel, Legionella and Streptococcus antigen, blood cultures and COVID-19 thus far negative. We will arrange for BiPAP at [facility]. Patient requires volume ventilation and all other alternative therapies, including bilevel, have been considered and ruled out due to the severity of thedisease state, weak breathing muscles and potential life-threatening condition including CO2 retention probability of acute exacerbation, patient requires ventilation to be used during the day as needed, addition to every night usage with facemask. (2) Metabolic encephalopathy: Status: Acute Code(s): G93.41 - Metabolic encephalopathy Plan: Resolved 2/2 hypercapnia Plan Chronic conditions: * Obesity/Obesity hypoventilation syndrome. Outpatient obesity management recommended * Depression, continue Zoloft, amitryptiline * GERD, continue omeprazole DVT PPx- Lovenox BID Allergies/Procedures Done in Hospital Allergies aspirin Allergy (Verified 05/28/22 11:13) Other black pepper [pepper] Allergy (Verified 05/28/22 11:13) Other coconut Allergy (Verified 05/28/22 11:13) Other codeine Allergy (Verified 05/28/22 11:13) Other ibuprofen Allergy (Verified 05/28/22 11:13) Other Influenza Virus Vaccines Allergy (Verified 05/28/22 11:13) Other Penicillins Allergy (Verified 05/28/22 11:13) Anaphylaxis rice Allergy (Verified 05/28/22 11:13) Other tetanus and diphtheria toxoids Allergy (Verified 05/28/22 11:13) Other Tetanus Vaccines and Toxoid Allergy (Verified 05/28/22 11:13) Other Type of Care/Length of Stay Estimated LOS: More Than 30 Days Type of Care Needed: Intermediate Rehab Potential: Poor Prognosis: Poor Additional Orders/Day of Discharge Day of Discharge: 05/30/22 Dietary and Speech Recommendations Dietitian Recommendations/Changes: Will adjust diet to 1800 calorie/cardiac. Fluid restriction as indicated per physician. ONS not needed at this time, will offer if PO fails at meals. Discharge Plan Admission Admit Date/Time: 05/28/22 14:59 Primary Reason for Your Visit: acute on chronic hypercapnic respiratory failure. Attending Provider: Jayme Corea Primary Care Provider: Sepideh Patterson Consulting Providers: Joana Perez Discharge Orders/Prescriptions Prescriptions: New acetaminophen [Tylenol] 325 mg Tablet 650 mg PO Q6H PRN PRN (Reason: Pain 1-10 Or Fever>100.7) Qty: 0 0RF prednisone 20 mg tablet 40 mg PO DAILY 5 Days Qty: 10 0RF furosemide 40 mg tablet 40 mg PO DAILY Qty: 30 0RF Continued losartan 50 mg Tablet 50 mg PO DAILY cyclobenzaprine 10 mg Tablet 10 mg PO TID acetaminophen 325 mg Tablet 650 mg PO TID atorvastatin 20 mg Tablet 20 mg PO QHS lidocaine 4 % Adhesive Patch,Medicated 1 patch TOPICAL DAILY sertraline [Zoloft] 100 mg Tablet 100 mg PO QHS famotidine 20 mg Tablet 20 mg PO BID amitriptyline 25 mg Tablet 25 mg PO QODAY calcium polycarbophil [FiberCon] 625 mg Tablet 625 mg PO DAILY montelukast 10 mg Tablet 10 mg PO DAILY ergocalciferol (vitamin D2) [Vitamin D2] 1,250 mcg (50,000 unit) Capsule 1,250 mcg PO SA fluticasone propionate 50 mcg/actuation [place],Suspension 2 spray INTRANASAL BID omeprazole 20 mg Tablet,Delayed Release (Dr/Ec) 20 mg PO DAILY roflumilast [Daliresp] 500 mcg Tablet 500 mcg PO DAILY Spiriva Respimat 2.5 mcg/actuation Mist 2 puff INHALATION QHS guaifenesin [Mucinex] 600 mg Tablet Extended Release 12hr 600 mg PO BID sucralfate 1 gram Tablet 1 g PO TID@0700,1100,1600 Qty: 0 0RF dicyclomine 10 mg Capsule 10 mg PO 4X/DAY Qty: 1 0RF nystatin [Nyamyc] 100,000 unit/gram powder 1 applic topical TID Protocol: *Topical Application Instructions APPLICATION INSTRUCTIONS: affected areas potassium chloride 20 mEq Packet 20 meq PO DAILY gabapentin 300 mg Capsule 300 mg PO BID Referrals / Follow Up: [facility] [Provider Group] - Within 1 Month Sepideh Patterson MD [Primary Care Provider] - Within 2 Weeks Disposition Disposition (needs filled in before D/C Order can be placed): NonSkilled NH/Intermed Care 05/30/22 1420 <Electronically signed by Jayme Corea DO> Cosigner Signature (if applicable): CC: Dr. Joana Perez MD; Sepideh Patterosn MD ~ [facility] Work Phone: 1(940) 982-433002-21-[address] Corea [facility] May 30, 2022 2:09pm Note Date/Time May 30, 2022 7:54am [facility] Medical Records Department [address] [place] [address] Progress Note - Hospitalist 05/30/22 0751 MR#: [id number] Acct: [id number] Name: HE LAURAENO Rep #:[id number] : 1960 61 From: Jayme Corea DO PCP: Sepideh Patterson MD Status:ADM IN Location: [id number] 1 Reason for Visit Reason for Visit: Diagnoses Metabolic encephalopathy (05/28/22) Pneumonia, unspecified organism (05/28/22) Other abnormalities of breathing (05/28/22) Hypoxemia (05/28/22) Subjective Subjective Feels well. Objective Data Objective Data Vital Signs: Vital Signs Temp Pulse Resp BP Pulse Ox O2 Del Method O2 Flow Rate 36.6 C 73 23 H 146/72 H 92 Bi-pap 3 05/30/22 03:33 05/30/22 05:34 05/30/22 05:34 05/30/22 03:33 05/30/22 05:34 05/30/22 03:35 05/29/22 21:35 FiO2 30 05/30/22 05:34 Oxygen Flow Rate (L/min) 3 Oxygen Delivery Method Bi-pap Weight: 165.3 kg Body Mass Index (BMI) 58.8 Intake & Output: Intake and Output for Last 24 Hours 05/28/22 05/29/22 05/30/22 23:59 23:59 23:59 Intake Total 1150 / 1150 767.5 / 767.5 Output Total 300 / 500 2200 / 2200 100 / 100 Balance 850 / 650 -1432.5 / -1432.5 -100 / -100 Lab / Micro Data Result Diagrams: 05/29/22 05:04 05/29/22 05:04 Micro: Microbiology 05/28/22 13:46 Urine, Clean Catch Legionella Antigen - Final 05/28/22 13:46 Urine, Clean Catch Streptococcus pneumoniae Antigen (M - Final 05/28/22 20:08 Mucosa - Nasopharyngeal Respiratory Panel (PCR) - Final 05/28/22 11:43 Nasal Secretion SARS-CoV-2 & FLU Antigen (Rapid) - Final Physical Exam Const alert and no apparent distress Constitutional Narrative: Morbidly obese. Lying in bed. No respiratory distress. No conversational dyspnea. Resp normal respiratory effort, no retractions, no use of accessory muscles and clearto auscultation bilaterally GI normal to inspection, nondistended, normoactive bowel sounds, soft to palpation,non-tender and non-distended Extremity normal to inspection Assessment & Plan Assessment/Plan (1) Hypercarbia: PLAN: acute on chronic hypercapneic failure secondary to COPD exacerbation, morbid obesity, obesity hypoventilation. Less likely pneumonia. Patient is typically on 2.5 L of oxygen, currently on BiPAP ABG shows pH of 7.22 with PCO2 94.2 Chest X-ray showed right-sided infiltrate with pleural effusion Admit to PCU, continue breathing treatments, IV Solu-Medrol, IV Levaquin Infectious work-up, including respiratory panel, Legionella and Streptococcus antigen, blood cultures and COVID-19 thus far negative. We will arrange for BiPAP at [facility]. Patient requires volume ventilation and all other alternative therapies, including bilevel, have been considered and ruled out due to the severity of thedisease state, weak breathing muscles and potential life-threatening condition including CO2 retention probability of acute exacerbation, patient requires ventilation to be used during the day as needed, addition to every night usage with facemask. (2) Metabolic encephalopathy: PLAN: Resolved 2/2 hypercapnia PLAN: Plan Chronic conditions: * Obesity/Obesity hypoventilation syndrome. Outpatient obesity management recommended * Depression, continue Zoloft, amitryptiline * GERD, continue omeprazole DVT PPx- Lovenox BID 05/30/22 1409 <Electronically signed by Jayme Corea DO> Cosigner Signature (if applicable): CC: ~ Signed [facility] Work Phone: 1(393) 871-155702-20-[address] Corea [facility] May 29, 2022 2:12pm Note Date/Time May 29, 2022 9:24am [facility] Medical Records Department [address] [place] [address] Progress Note - Hospitalist 05/29/22 0917 MR#: [id number] Acct: [id number] Name: HE LAUREANO Rep #:[id number] : 1960 61 From: Jayme Corea DO PCP: Sepideh Patterson MD Status:ADM IN Location: [place] [address]- 1 Reason for Visit Reason for Visit: Diagnoses Pneumonia, unspecified organism (05/28/22) Other abnormalities of breathing (05/28/22) Hypoxemia (05/28/22) Subjective Subjective Breathing okay. States that she was given a CPAP by Dr. Haque for [place] this year which she states that she has been using. Objective Data Objective Data Vital Signs: Vital Signs Temp Pulse Resp BP Pulse Ox O2 Del Method O2 Flow Rate 37.2 C 98 22 H 101/62 94 Bi-pap 3 05/29/22 06:00 05/29/22 07:35 05/29/22 07:35 05/29/22 06:00 05/29/22 06:00 05/29/22 06:00 05/28/22 21:08 FiO2 30 05/29/22 03:39 Oxygen Flow Rate (L/min) 3 Oxygen Delivery Method Bi-pap Weight: 163.42 kg Body Mass Index (BMI) 57.9 Intake & Output: Intake and Output for Last 24 Hours 05/27/22 05/28/22 05/29/22 23:59 23:59 23:59 Intake Total 1150 / 1150 467.5 / 467.5 Output Total 300 / 500 1050 / 1050 Balance 850 / 650 -582.5 / -582.5 Lab / Micro Data Result Diagrams: 05/29/22 05:04 05/29/22 05:04 Labs: Laboratory Results - last 24 hr 05/28/22 11:23: WBC 14.9 H, RBC 3.68 L, Hgb 9.8 L, Hct 33.9 L, MCV 92.1, MCH 26.6 L, MCHC 28.9 L, RDW Std Deviation 47.3 H, RDW Coeff of David 13.9, Plt Count 287, MPV 11.4, Immature Gran % (Auto) 0.900, Neut % (Auto) 75.4 H, Lymph % (Auto) 14.5 L, Nobles % (Auto) 7.9, Eos % (Auto) 1.1, Baso % (Auto) 0.2, Absolute Neuts (auto) 11.2 H, Absolute Lymphs (auto) 2.16, Nucleated RBC % 0 05/28/22 11:23: PT Cancelled, INR Cancelled, APTT Cancelled 05/28/22 11:23: Sodium 140, Potassium 4.7, Chloride 101, Carbon Dioxide 37.0 H, Anion Gap 2 L, BUN 28 H, Creatinine 1.09 H, Estim Creat Clear Calc 51.38, Est GFR (MDRD) Af Amer 66, Est GFR (MDRD) Non-Af 54 L, BUN/Creatinine Ratio 25.7 H, Glucose 123 H, Calcium 9.9, Total Bilirubin 0.20, AST 6 L, ALT 10 L, Alkaline Phosphatase 96, Troponin I High Sens 12, Total Protein 6.7, Albumin 2.4 L, Globulin 4.3 H, Albumin/Globulin Ratio 0.6 L 05/28/22 11:25: Lactic Acid 0.6 05/28/22 12:16: PT Cancelled, INR Cancelled, APTT Cancelled 05/28/22 12:16: B-Natriuretic Peptide 25.3 05/28/22 12:50: PT 13.3, INR 1.0, APTT 28.8 05/28/22 13:46: Urine Color Yellow, Urine Clarity Clear, Urine pH 5.0, Ur Specific [place] 1.025, Urine Protein 30 H, Urine Glucose (UA) Normal, Urine Ketones Negative, Urine Occult Blood Negative, Urine Nitrite Negative, Urine Bilirubin Negative, Urine Urobilinogen Normal, Ur Leukocyte Esterase Negative, Urine RBC 0SEEN, Urine WBC 0 SEEN, Ur Squamous Epith Cells 0 SEEN, Urine Bacteria 0 SEEN, Fine Granular Casts 5-10 SEEN, Urine Mucus 0 SEEN 05/28/22 14:07: Troponin I High Sens 11 05/29/22 05:04: WBC 14.7 H, RBC 3.46 L, Hgb 9.3 L, Hct 31.8 L, MCV 91.9, MCH 26.9 L, MCHC 29.2 L, RDW Std Deviation 45.8 H, RDW Coeff of [place] 13.7, Plt Count 253, MPV 11.7, Immature Gran % (Auto) 1.800 H, Neut % (Auto) 90.0 H, Lymph % (Auto) 6.1 L, [place] % (Auto) 1.7, Eos % (Auto) 0.1, Baso % (Auto) 0.3, Absolute Neuts (auto) 13.3 H, Absolute Lymphs (auto) 0.90, Nucleated RBC % 0 05/29/22 05:04: Sodium 138, Potassium 5.1, Chloride 99, Carbon Dioxide 33.0 H, Anion Gap 6, BUN 23 H, Creatinine 0.76, Estim Creat Clear Calc 73.69, Est GFR (MDRD) Af Amer 100, Est GFR (MDRD) Non-Af 82, BUN/Creatinine Ratio 30.3 H, Glucose 156 H, Calcium 9.7, Total Bilirubin 0.30, AST 9 L, ALT 10 L, Alkaline Phosphatase 106, Total Protein 6.3 L, Albumin 2.2 L, Globulin 4.1, Albumin/Globulin Ratio 0.5 L Micro: Microbiology 05/28/22 13:46 Urine, Clean Catch Legionella Antigen - Final 05/28/22 13:46 Urine, Clean Catch Streptococcus pneumoniae Antigen (M - Final 05/28/22 20:08 Mucosa - Nasopharyngeal Respiratory Panel (PCR) - Final 05/28/22 11:43 Nasal Secretion SARS-CoV-2 & FLU Antigen (Rapid) - Final ABG Data ABG results: ABG 05/28/22 12:13 Specimen Type ART Sample Site L Brach pH 7.23 L Bicarbonate Actual 39.5 H Total CO2 42 Base Excess 12 H O2 Saturation 92 L ABG pCO2 94.2 H* ABG pO2 80 Rosa Test Positive O2 Delivery Device Cannula Liter Flow 5.0 Crit Call To/Read Back Yes Blood Gas Notified Whom schwiger Radiography Diagnostic Testing: Radiology Impression Chest X-Ray 05/28/22 13:50 IMPRESSION: Pulmonary findings appear worse. Electronically Signed: Simone Cevallos MD at 14:22 EST Reading Location ID and State: [facility] / [place] , Service support , Physical Exam Const alert and no apparent distress HEENT head/scalp atraumatic and moist oral mucous membranes Resp normal respiratory effort, no retractions, no use of accessory muscles and clearto auscultation bilaterally Cardio regular rate, regular rhythm, S1 normal heart sound and S2 normal heart sound GI normal to inspection, nondistended, normoactive bowel sounds Extremity normal to inspection Neuro oriented x3 Assessment & Plan Assessment/Plan (1) Hypercarbia: PLAN: acute on chronic hypercapneic failure secondary to COPD exacerbation, morbid obesity, obesity hypoventilation. Less likely pneumonia. Patient is typically on 2.5 L of oxygen, currently on BiPAP ABG shows pH of 7.22 with PCO2 94.2 Chest X-ray showed right-sided infiltrate with pleural effusion Admit to PCU, continue breathing treatments, IV Solu-Medrol, IV Levaquin Check sputum culture, urine Legionella and streptococcal antigen Patient requires volume ventilation and all other alternative therapies, including bilevel, have been considered and ruled out due to the severity of thedisease state, weak breathing muscles and potential life-threatening condition including CO2 retention probability of acute exacerbation, patient requires ventilation to be used during the day as needed, addition to every night usage with facemask. (2) Metabolic encephalopathy: PLAN: Resolved 2/2 hypercapnia PLAN: Plan Chronic conditions: * Obesity/Obesity hypoventilation syndrome. Outpatient obesity management recommended * Depression, continue Zoloft, amitryptiline * GERD, continue omeprazole DVT PPx- Lovenox BID Charges/Coding Visit Charges Inpatient E&M: 52188 Subs Hosp L2 05/29/22 1412 <Electronically signed by Jayme Corea DO> Cosigner Signature (if applicable): CC: ~ Signed [facility] Work Phone: 1(227) 839-929202-20-[address] Lamar [facility] May 28, 2022 10:47pm Note Date/Time May 28, 2022 12:05pm [facility] Medical Records Department [address] [place] [address] Emergency Department Summary 05/28/22 MR#: [id number] Acct: [id number] Name: HE LAUREANO Rep #:[id number] : 1960 61 From: Jayme Smith PCP: Sepideh Patterson MD Status:ADM IN Location: [place] [address] HPI History of Present Illness Chief Complaint: Shortness of Breath Informant: patient and SNF Onset/Context/Timing Onset: Today Context: sudden Timing: Continuous Quality: Positive for Dyspnea on exertion Worsened by: Exertion Relieved by: Nothing Associated Symptoms Negative for cough, rhinorrhea, post nasal drip, fever, chills or sweats Chest Pain: Positive for None Narrative Narrative: Patient presents with shortness of breath that began today. Patient states she woke up feeling short of breath. Staff at the assisted where she lives noted that her pulse ox was low on her normal 2.5 L nasal cannula. Patient denies any cough. Patient denies any chest pain. Patient denies any fevers or chills. Patient falls asleep easily on examination and is a very poor informant. Patient states her breathing is worse with any exertion. Patient states nothing makes it any better. [facility] Medical History Acute kidney failure with tubular necrosis Chronic anemia Chronic pain Chronic respiratory failure with hypoxia COPD (chronic obstructive pulmonary disease) Depression Fibromyalgia GERD (gastroesophageal reflux disease) HFrEF (heart failure with reduced ejection fraction) HTN (hypertension) Hyperlipidemia Morbid obesity Obesity hypoventilation syndrome MARISOL (obstructive sleep apnea) Peptic ulcer disease Personal history of transient ischemic attack (TIA), and cerebral infarction without residual deficits Seasonal allergies TIA (transient ischemic attack) UTI (urinary tract infection) Vitamin D deficiency Home Medications acetaminophen 325 mg tablet 650 mg PO TID PAIN 05/03/22 [History Last Taken 05/28/22] amitriptyline 25 mg tablet 25 mg PO QODAY DEPRESSION 05/03/22 [History Last Taken 05/26/22] atorvastatin 20 mg tablet 20 mg PO QHS CHOLESTEROL 05/03/22 [History Last Taken 05/27/22] calcium polycarbophil 625 mg tablet (FiberCon) 625 mg PO DAILY CONSTIPATION 05/03/22 [History Last Taken 05/28/22] cyclobenzaprine 10 mg tablet 10 mg PO TID MUSCLE SPASMS 05/03/22 [History Last Taken 05/28/22] ergocalciferol (vitamin D2) 1,250 mcg (50,000 unit) capsule (Vitamin D2) 1,250 mcg PO SA SUPPLEMENT 05/03/22 [History Last Taken 05/27/22] famotidine 20 mg tablet 20 mg PO BID GERD 05/03/22 [History Last Taken 05/28/22] fluticasone propionate 50 mcg/actuation nasal spray,suspension 2 spray intranasal BID NASAL CONGESTION 05/03/22 [History Last Taken 05/28/22] guaifenesin 600 mg tablet, extended release 12 hr (Mucinex) 600 mg PO BID CONGESTION 05/03/22 [History Last Taken 05/28/22] lidocaine 4 % topical patch 1 patch topical DAILY PAIN 05/03/22 [History Last Taken 05/28/22] losartan 50 mg tablet 50 mg PO DAILY BLOOD PRESSURE 05/03/22 [History Last Taken 05/28/22] montelukast 10 mg tablet 10 mg PO DAILY ALLERGIES 05/03/22 [History Last Taken 05/28/22] omeprazole 20 mg tablet,delayed release 20 mg PO DAILY GERD 05/03/22 [History Last Taken 05/28/22] roflumilast 500 mcg tablet (Daliresp) 500 mcg PO DAILY ASTHMA 05/03/22 [History Last Taken 05/28/22] sertraline 100 mg tablet (Zoloft) 100 mg PO QHS DEPRESSION 05/03/22 [History Last Taken 05/27/22] tiotropium bromide 2.5 mcg/actuation mist for inhalation (Spiriva Respimat) 2 puff inhalation QHS ASTHMA 05/03/22 [History Last Taken 05/27/22] dicyclomine 10 mg capsule 10 mg PO 4X/DAY #1 cap 05/05/22 [Rx Last Taken 05/28/22] sucralfate 1 gram tablet 1 g PO TID@0700,1100,1600 #0 tabs 05/05/22 [Rx Last Taken 05/28/22] nystatin 100,000 unit/gram topical powder (Nyamyc) 1 applic topical TID affectedareas 05/14/22 [History Last Taken 05/28/22] gabapentin 300 mg capsule 300 mg PO BID NEUROPATHY 05/28/22 [History Last Taken 05/28/22] potassium chloride 20 mEq oral packet 20 meq PO DAILY SUPPLEMENT 05/28/22 [History Last Taken 05/28/22] Allergy/AdvReac Type Severity Reaction Status Date / Time aspirin Allergy Other Verified 05/28/22 11:13 black pepper [pepper] Allergy Other Verified 05/28/22 11:13 coconut Allergy Other Verified 05/28/22 11:13 codeine Allergy Other Verified 05/28/22 11:13 ibuprofen Allergy Other Verified 05/28/22 11:13 Influenza Virus Vaccines Allergy Other Verified 05/28/22 11:13 Penicillins Allergy Anaphylaxis Verified 05/28/22 11:13 rice Allergy Other Verified 05/28/22 11:13 tetanus and diphtheria Allergy Other Verified 05/28/22 11:13 toxoids Tetanus Vaccines and Toxoid Allergy Other Verified 05/28/22 11:13 Family History Other CAD (coronary artery disease) COPD (chronic obstructive pulmonary disease) Hypertension Social History housing: assisted Smoking Status: Former smoker alcohol intake: never substance use type: does not use ROS ROS ED Constitutional Constitutional ED: Denies chills or fever(s) Eyes Eyes: Denies blurry vision or change in vision ENT ENT ED: Denies rhinorrhea or sore throat Cardiovascular Cardiovascular: Denies chest pain or palpitations Respiratory/Chest Respiratory/Chest: Reports dyspnea; Denies cough Gastrointestinal Gastrointestinal: Reports nausea; Denies vomiting Genitourinary Genitourinary ED: Denies dysuria or hematuria Musculoskeletal Musculoskeletal: Denies back pain or neck pain Integumentary Denies abscess or rash Neurologic Neurologic: Denies headache(s) or weakness Allergic/Immunologic Allergic/Immunologic ED: Denies mouth swelling or urticaria EXAM Physical Exam Const Vital Signs: 05/28/22 11:11 05/28/22 11:15 05/28/22 11:22 Temperature 96.8 F L Temperature Source Temporal Pulse Rate 98 Respiratory Rate 14 Respiratory Effort Normal Non-Labored Respiratory Depth Normal Respiratory Pattern Normal Blood Pressure 91/41 L Blood Pressure Mean 57 Pulse Ox 86 Oxygen Delivery Method Nasal Cannula Nasal Cannula Oxygen Flow Rate (L/min) 2.5 5 Fraction of Inspired Oxygen (FIO2) 05/28/22 11:39 05/28/22 12:17 05/28/22 12:33 Temperature Temperature Source Pulse Rate 97 96 Respiratory Rate 18 18 Respiratory Effort Respiratory Depth Respiratory Pattern Normal Blood Pressure 159/110 H Blood Pressure Mean 126 Pulse Ox 94 95 Oxygen Delivery Method Nasal Cannula Nasal Cannula Oxygen Flow Rate (L/min) 5 5 Fraction of Inspired Oxygen (FIO2) 05/28/22 12:42 05/28/22 12:48 05/28/22 13:32 Temperature Temperature Source Pulse Rate 95 95 95 Respiratory Rate 19 H 19 H 20 H Respiratory Effort Respiratory Depth Respiratory Pattern Blood Pressure 104/59 L Blood Pressure Mean 74 Pulse Ox 99 98 100 Oxygen Delivery Method Bi-pap Bi-pap Oxygen Flow Rate (L/min) Fraction of Inspired Oxygen (FIO2) 50 05/28/22 14:09 Temperature Temperature Source Pulse Rate 96 Respiratory Rate 16 Respiratory Effort Respiratory Depth Respiratory Pattern Blood Pressure Blood Pressure Mean Pulse Ox 98 Oxygen Delivery Method Bi-pap Oxygen Flow Rate (L/min) Fraction of Inspired Oxygen (FIO2) Positive well nourished, well developed and obese General Appearance ED: well developed and NAD Nutritional Appearance: obese HEENT Reports moist mucous membranes Neck supple and no JVD Resp normal respiratory effort Auscultation: diminished lung sounds diffuse Cardio regular rate and regular rhythm GI normal to inspection, nondistended, normoactive bowel sounds and non-tender Palpation: soft Extremity normal to inspection General Extremety ED: Negative for edema or tenderness General Extremity: Negative for edema Neuro oriented x3, CN's II-XII intact bilaterally and no sensory deficits noted Sensorium / Orientation: alert Motor Exam: strength 5/5 throughout Psych mental status grossly normal Skin no rashes or lesions noted MDM MDM MDM Narrative Medical decision making narrative: Differential diagnosis includes pneumonia, pulmonary embolism, congestive heart failure, cardiac ischemia, cardiac dysrhythmia, pneumothorax, sepsis, urinary tract infection, and viral infection. Will obtain CBC to assess for leukocytosis and anemia. Comprehensive metabolic profile will be obtained to assess for electrolyte abnormality, renal function, and hepatic function. Lactate will be obtained to assess for sepsis. Urinalysis will be obtained to assess for urinary tract infection. High-sensitivity troponin will be obtained to assess for cardiac ischemia. EKG will be obtained to assess for cardiac dysrhythmia and cardiac ischemia. BNP will be obtained to assess for congestiveheart failure. CTA of the chest will be obtained to assess for pulmonary embolism. PT with INR and PTT will be obtained to assess for coagulopathy. COVID-19 rapid antigen and influenza rapid antigens will be obtained to assess for COVID-19 and influenza infection. Arterial blood gas will be obtained to assess for oxygen status and acid-base status. Lab Data Attestation: I reviewed the patient's lab results. Lab results narrative: CBC was reviewed. There is a mild leukocytosis of 14.9. There is also mild anemia with a hemoglobin of 9.8. Prior outpatient lab results were also reviewed from 2 days ago. The leukocytosis improving. The anemia is stable. Lactate was reviewed and was normal at 0.6. Arterial blood gas was reviewed andshowed a pH of 7.23, PCO2 of 94.2, PO2 of 80, bicarb of 39.5, and oxygen saturation of 92% on 5 L nasal cannula. Comprehensive metabolic profile was reviewed and showed a slightly elevated BUN of 28 and creatinine 1.09. These are consistent with prior results. Urinalysis was reviewed and does not show any evidence of urinary tract infection or hematuria. BNP was reviewed and was normal. High-sensitivity troponin was normal at 12. 2-hour repeat high-sensitivity troponin was normal at 11. Labs: Laboratory Results - last 24 hr 05/28/22 05/28/22 05/28/22 11:23 11:23 11:23 WBC 14.9 H RBC 3.68 L Hgb 9.8 L Hct 33.9 L MCV 92.1 MCH 26.6 L MCHC 28.9 L RDW Std Deviation 47.3 H RDW Coeff of David 13.9 Plt Count 287 MPV 11.4 Immature Gran % (Auto) 0.900 Neut % (Auto) 75.4 H Lymph % (Auto) 14.5 L Nobles % (Auto) 7.9 Eos % (Auto) 1.1 Baso % (Auto) 0.2 Absolute Neuts (auto) 11.2 H Absolute Lymphs (auto) 2.16 Nucleated RBC % 0 PT Cancelled INR Cancelled APTT Cancelled Sodium 140 Potassium 4.7 Chloride 101 Carbon Dioxide 37.0 H Anion Gap 2 L BUN 28 H Creatinine 1.09 H Estim Creat Clear Calc 51.38 Est GFR (MDRD) Af Amer 66 Est GFR (MDRD) Non-Af 54 L BUN/Creatinine Ratio 25.7 H Glucose 123 H Lactic Acid Calcium 9.9 Total Bilirubin 0.20 AST 6 L ALT 10 L Alkaline Phosphatase 96 Troponin I High Sens 12 B-Natriuretic Peptide Total Protein 6.7 Albumin 2.4 L Globulin 4.3 H Albumin/Globulin Ratio 0.6 L Urine Color Urine Clarity Urine pH Ur Specific [place] Urine Protein Urine Glucose (UA) Urine Ketones Urine Occult Blood Urine Nitrite Urine Bilirubin Urine Urobilinogen Ur Leukocyte Esterase Urine RBC Urine WBC Ur Squamous Epith Cells Urine Bacteria Fine Granular Casts Urine Mucus 05/28/22 05/28/22 05/28/22 11:25 12:16 12:16 WBC RBC Hgb Hct MCV MCH MCHC RDW Std Deviation RDW Coeff of David Plt Count MPV Immature Gran % (Auto) Neut % (Auto) Lymph % (Auto) Nobles % (Auto) Eos % (Auto) Baso % (Auto) Absolute Neuts (auto) Absolute Lymphs (auto) Nucleated RBC % PT Cancelled INR Cancelled APTT Cancelled Sodium Potassium Chloride Carbon Dioxide Anion Gap BUN Creatinine Estim Creat Clear Calc Est GFR (MDRD) Af Amer Est GFR (MDRD) Non-Af BUN/Creatinine Ratio Glucose Lactic Acid 0.6 Calcium Total Bilirubin AST ALT Alkaline Phosphatase Troponin I High Sens B-Natriuretic Peptide 25.3 Total Protein Albumin Globulin Albumin/Globulin Ratio Urine Color Urine Clarity Urine pH Ur Specific [place] Urine Protein Urine Glucose (UA) Urine Ketones Urine Occult Blood Urine Nitrite Urine Bilirubin Urine Urobilinogen Ur Leukocyte Esterase Urine RBC Urine WBC Ur Squamous Epith Cells Urine Bacteria Fine Granular Casts Urine Mucus 05/28/22 05/28/22 05/28/22 12:50 13:46 14:07 WBC RBC Hgb Hct MCV MCH MCHC RDW Std Deviation RDW Coeff of David Plt Count MPV Immature Gran % (Auto) Neut % (Auto) Lymph % (Auto) Nobles % (Auto) Eos % (Auto) Baso % (Auto) Absolute Neuts (auto) Absolute Lymphs (auto) Nucleated RBC % PT 13.3 INR 1.0 APTT 28.8 Sodium Potassium Chloride Carbon Dioxide Anion Gap BUN Creatinine Estim Creat Clear Calc Est GFR (MDRD) Af Amer Est GFR (MDRD) Non-Af BUN/Creatinine Ratio Glucose Lactic Acid Calcium Total Bilirubin AST ALT Alkaline Phosphatase Troponin I High Sens 11 B-Natriuretic Peptide Total Protein Albumin Globulin Albumin/Globulin Ratio Urine Color Yellow Urine Clarity Clear Urine pH 5.0 Ur Specific [place] 1.025 Urine Protein 30 H Urine Glucose (UA) Normal Urine Ketones Negative Urine Occult Blood Negative Urine Nitrite Negative Urine Bilirubin Negative Urine Urobilinogen Normal Ur Leukocyte Esterase Negative Urine RBC 0 SEEN Urine WBC 0 SEEN Ur Squamous Epith Cells 0 SEEN Urine Bacteria 0 SEEN Fine Granular Casts 5-10 SEEN Urine Mucus 0 SEEN ABG Data ABG results: ABG 05/28/22 12:13 Specimen Type ART Sample Site L Brach pH 7.23 L Bicarbonate Actual 39.5 H Total CO2 42 Base Excess 12 H O2 Saturation 92 L ABG pCO2 94.2 H* ABG pO2 80 Rosa Test Positive O2 Delivery Device Cannula Liter Flow 5.0 Crit Call To/Read Back Yes Blood Gas Notified Whom [facility] Radiography Chest X-Ray - ED: 1 View Diagnostic Testing: Clinical Impression(s) from Imaging Studies Chest X-Ray 05/28/22 13:50 IMPRESSION: Pulmonary findings appear worse. Electronically Signed: Simone Cevallos MD at 14:22 EST , Patient was unable to fit into the CT scanner to assess for pulmonary embolism and pneumonia. Because of this, a portable chest x-ray was obtained. There is 1 view. On my independent interpretation, there is a right pleural effusion andright lower lobe infiltrate. Radiologist also interpreted the x-ray and agrees with the findings. He notes that this is worse compared to previous chest x-ray. EKG Initial EKG: Attestation: I personally reviewed and interpreted this EKG as follows: Interpretation: Sinus Rhythm (100), RBBB and Non-Specific ST Changes Comments: EKG was obtained. On my independent interpretation, it showed anormal sinus rhythm with a rate of 100. AL interval was normal at 170 ms. QRS interval was slightly prolonged at 132 ms. QTc interval was normal at 438 ms. [place] was normal. There are no acute ST or T wave changes. Prior EKG tracings: available for review Prior: Unchanged (05/14/2022) Treatment and Re-Evaluation Narrative: Due to the patient's CO2 retention, patient was started on BiPAP. Patient was given a dose of Levaquin here. Patient was advised of her findings. Patient was advised of the need for hospitalization. Patient is agreeable with this. Case was discussed with the hospitalist. She will admit the patient to PCU. Patient understands and is agreeable with the plan. All questions were answered. Critical Care Time Critical Care Time: Yes Critical care time (excluding procedures): 30-74 minutes (38), Including time spent:, Discussing w/Patient &/or Family/Water Resource Engineer, Discussing w/Consultants, Arranging Admission or Transfer and Performing Direct Patient Care at Bedside Discharge Plan Dx/Rx/DC Orders Clinical Impression: Pneumonia, Acute and chronic respiratory failure with hypoxia, Hypercarbia Disposition Disposition: Acute Care Hospital [facility] Discharge Date/Time: 05/28/22 17:30 What to do if you have Problems For any increased pain, shortness of breath, bleeding, nausea or vomiting, chestpain, or any unexpected problems, contact your Primary Care Provider. Call [facility] ([phone]) or report to the closest Emergency Room. Call 911 if necessary. 05/28/222246 <Electronically signed by Jayme Lamar DO> Cosigner Signature (if applicable): CC: Sepideh Patterson MD ~ Signed [facility] Work Phone: [phone] 619-286202-19-2023 History and physical note Author Dr. Perez [facility] May 28, 2022 6:47pm Note Date/Time May 28, 2022 3:07pm [facility] Medical Records Department [address] [place] [address] H&P Exam - Hospitalist 05/28/22 1505 MR#: [id number] Acct: [id number] Name: HE LAUREANO Rep #:[id number] : 1960 61 From: Joana Perez MD PCP: Sepideh Patterson MD Status:ADM IN Location: [place] [address] HPI - General General Date of Admission: 05/28/22 Date of Service: 05/28/22 Chief Complaint: Hypoxia - 1 day HPI Narrative HE LAUERANO, is a 61 F who presents with the above. Patient was recently discharged from the hospital on 05/16/2022 after admission for acute metabolic encephalopathy secondary to acute Proteus mirabilis UTI. Patient is usually on 2.5 L of oxygen via nasal cannula. Patient presented with worsening shortness of breath with low pulse ox noted at the [facility] facility. She was also noted to be confused. In the emergency room, her blood pressure was 91/41, heart rate 98, respiratory rate was 14, temperature was 96.8F, oxygen sat was 86% on 2.5L of oxygen. She was transitioned to BiPAP. Her admitting blood work showed WBC 14.9, with neutrophilia, hemoglobin 9.8, platelets 287, ABG showed pH of 7.23, PCO2 of 94.2. Her BMP showed sodium 140, potassium 4.7, chloride 101, bicarb 37, BUN 28, creatinine 1.09. Lactic acid 0.6. Troponin is 11. BNP was 25.3. UA is unremarkable. Admitting chest x-ray shows a right pleural effusion, right lower lobe infiltrate. Rapid COVID-19 antigen test as well as influenza screen negative. 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 deficits Seasonal allergies TIA (transient ischemic attack) UTI (urinary tract infection) Vitamin D deficiency Home Medications acetaminophen 325 mg tablet 650 mg PO TID PAIN 05/03/22 [History Last Taken 05/28/22] amitriptyline 25 mg tablet 25 mg PO QODAY DEPRESSION 05/03/22 [History Last Taken 05/26/22] atorvastatin 20 mg tablet 20 mg PO QHS CHOLESTEROL 05/03/22 [History Last Taken 05/27/22] calcium polycarbophil 625 mg tablet (FiberCon) 625 mg PO DAILY CONSTIPATION 05/03/22 [History Last Taken 05/28/22] cyclobenzaprine 10 mg tablet 10 mg PO TID MUSCLE SPASMS 05/03/22 [History Last Taken 05/28/22] ergocalciferol (vitamin D2) 1,250 mcg (50,000 unit) capsule (Vitamin D2) 1,250 mcg PO SA SUPPLEMENT 05/03/22 [History Last Taken 05/27/22] famotidine 20 mg tablet 20 mg PO BID GERD 05/03/22 [History Last Taken 05/28/22] fluticasone propionate 50 mcg/actuation nasal spray,suspension 2 spray intranasal BID NASAL CONGESTION 05/03/22 [History Last Taken 05/28/22] guaifenesin 600 mg tablet, extended release 12 hr (Mucinex) 600 mg PO BID CONGESTION 05/03/22 [History Last Taken 05/28/22] lidocaine 4 % topical patch 1 patch topical DAILY PAIN 05/03/22 [History Last Taken 05/28/22] losartan 50 mg tablet 50 mg PO DAILY BLOOD PRESSURE 05/03/22 [History Last Taken 05/28/22] montelukast 10 mg tablet 10 mg PO DAILY ALLERGIES 05/03/22 [History Last Taken 05/28/22] omeprazole 20 mg tablet,delayed release 20 mg PO DAILY GERD 05/03/22 [History Last Taken 05/28/22] roflumilast 500 mcg tablet (Daliresp) 500 mcg PO DAILY ASTHMA 05/03/22 [History Last Taken 05/28/22] sertraline 100 mg tablet (Zoloft) 100 mg PO QHS DEPRESSION 05/03/22 [History Last Taken 05/27/22] tiotropium bromide 2.5 mcg/actuation mist for inhalation (Spiriva Respimat) 2 puff inhalation QHS ASTHMA 05/03/22 [History Last Taken 05/27/22] dicyclomine 10 mg capsule 10 mg PO 4X/DAY #1 cap 05/05/22 [Rx Last Taken 05/28/22] sucralfate 1 gram tablet 1 g PO TID@0700,1100,1600 #0 tabs 05/05/22 [Rx Last Taken 05/28/22] nystatin 100,000 unit/gram topical powder (Nyamyc) 1 applic topical TID affectedareas 05/14/22 [History Last Taken 05/28/22] gabapentin 300 mg capsule 300 mg PO BID NEUROPATHY 05/28/22 [History Last Taken 05/28/22] potassium chloride 20 mEq oral packet 20 meq PO DAILY SUPPLEMENT 05/28/22 [History Last Taken 05/28/22] Allergy/AdvReac Type Severity Reaction Status Date / Time aspirin Allergy Other Verified 05/28/22 11:13 black pepper [pepper] Allergy Other Verified 05/28/22 11:13 coconut Allergy Other Verified 05/28/22 11:13 codeine Allergy Other Verified 05/28/22 11:13 ibuprofen Allergy Other Verified 05/28/22 11:13 Influenza Virus Vaccines Allergy Other Verified 05/28/22 11:13 Penicillins Allergy Anaphylaxis Verified 05/28/22 11:13 rice Allergy Other Verified 05/28/22 11:13 tetanus and diphtheria Allergy Other Verified 05/28/22 11:13 toxoids Tetanus Vaccines and Toxoid Allergy Other Verified 05/28/22 11:13 Family History Other CAD (coronary artery disease) COPD (chronic obstructive pulmonary disease) Hypertension unable to obtain Social History housing: assisted Smoking Status: Former smoker alcohol intake: never substance use type: does not use ROS ROS Narrative Patient is alert oriented to self, intermittently confused Review of Systems ROS Unobtainable: due to encephalopathy Vital Signs Vital Signs Vital Signs: 05/28/22 11:11 05/28/22 11:15 05/28/22 11:22 Temperature 96.8 F L Temperature Source Temporal Pulse Rate 98 Respiratory Rate 14 Respiratory Effort Normal Non-Labored Respiratory Depth Normal Respiratory Pattern Normal Blood Pressure 91/41 L Blood Pressure Mean 57 Pulse Ox 86 Oxygen Delivery Method Nasal Cannula Nasal Cannula Oxygen Flow Rate (L/min) 2.5 5 Fraction of Inspired Oxygen (FIO2) 05/28/22 11:39 05/28/22 12:17 05/28/22 12:33 Temperature Temperature Source Pulse Rate 97 96 Respiratory Rate 18 18 Respiratory Effort Respiratory Depth Respiratory Pattern Normal Blood Pressure 159/110 H Blood Pressure Mean 126 Pulse Ox 94 95 Oxygen Delivery Method Nasal Cannula Nasal Cannula Oxygen Flow Rate (L/min) 5 5 Fraction of Inspired Oxygen (FIO2) 05/28/22 12:42 05/28/22 12:48 05/28/22 13:32 Temperature Temperature Source Pulse Rate 95 95 95 Respiratory Rate 19 H 19 H 20 H Respiratory Effort Respiratory Depth Respiratory Pattern Blood Pressure 104/59 L Blood Pressure Mean 74 Pulse Ox 99 98 100 Oxygen Delivery Method Bi-pap Bi-pap Oxygen Flow Rate (L/min) Fraction of Inspired Oxygen (FIO2) 50 05/28/22 14:09 Temperature Temperature Source Pulse Rate 96 Respiratory Rate 16 Respiratory Effort Respiratory Depth Respiratory Pattern Blood Pressure Blood Pressure Mean Pulse Ox 98 Oxygen Delivery Method Bi-pap Oxygen Flow Rate (L/min) Fraction of Inspired Oxygen (FIO2) Weight Weight: 79.56 kg Body Mass Index (BMI) 28.3 Physical Exam Narrative Physical exam: General: Alert, intermittently confused, Cooperative, morbidly obese, on BiPAP HEENT: Atraumatic Oral: Moist Mucosa Neck: Supple Lungs: Diminished to auscultation Cardiovascular: HS I+II, regular, no murmurs Abdomen: Bowel Sounds Present, Soft, Non Tender Extremities: Trace bilateral leg edema Skin: No rashes, No breakdown Neurological: Grossly intact Psych/Mental Status: Appropriate Results Lab / Micro Data Result Diagrams: 05/28/22 11:23 05/28/22 11:23 Labs: Laboratory Results - last 24 hr 05/28/22 11:23: WBC 14.9 H, RBC 3.68 L, Hgb 9.8 L, Hct 33.9 L, MCV 92.1, MCH 26.6 L, MCHC 28.9 L, RDW Std Deviation 47.3 H, RDW Coeff of David 13.9, Plt Count 287, MPV 11.4, Immature Gran % (Auto) 0.900, Neut % (Auto) 75.4 H, Lymph % (Auto) 14.5 L, Nobles % (Auto) 7.9, Eos % (Auto) 1.1, Baso % (Auto) 0.2, Absolute Neuts (auto) 11.2 H, Absolute Lymphs (auto) 2.16, Nucleated RBC % 0 05/28/22 11:23: PT Cancelled, INR Cancelled, APTT Cancelled 05/28/22 11:23: Sodium 140, Potassium 4.7, Chloride 101, Carbon Dioxide 37.0 H, Anion Gap 2 L, BUN 28 H, Creatinine 1.09 H, Estim Creat Clear Calc 51.38, Est GFR (MDRD) Af Amer 66, Est GFR (MDRD) Non-Af 54 L, BUN/Creatinine Ratio 25.7 H, Glucose 123 H, Calcium 9.9, Total Bilirubin 0.20, AST 6 L, ALT 10 L, Alkaline Phosphatase 96, Troponin I High Sens 12, Total Protein 6.7, Albumin 2.4 L, Globulin 4.3 H, Albumin/Globulin Ratio 0.6 L 05/28/22 11:25: Lactic Acid 0.6 05/28/22 12:16: PT Cancelled, INR Cancelled, APTT Cancelled 05/28/22 12:16: B-Natriuretic Peptide 25.3 05/28/22 12:50: PT 13.3, INR 1.0, APTT 28.8 05/28/22 13:46: Urine Color Yellow, Urine Clarity Clear, Urine pH 5.0, Ur Specific [place] 1.025, Urine Protein 30 H, Urine Glucose (UA) Normal, Urine Ketones Negative, Urine Occult Blood Negative, Urine Nitrite Negative, Urine Bilirubin Negative, Urine Urobilinogen Normal, Ur Leukocyte Esterase Negative, Urine RBC 0 SEEN, Urine WBC 0 SEEN, Ur Squamous Epith Cells 0 SEEN, Urine Bacteria 0 SEEN, Fine Granular Casts 5-10 SEEN, Urine Mucus 0 SEEN 05/28/22 14:07: Troponin I High Sens 11 Micro: Microbiology 05/28/22 11:43 Nasal Secretion SARS-CoV-2 & FLU Antigen (Rapid) - Final ABG Data ABG results: ABG 05/28/22 12:13 Specimen Type ART Sample Site L Brach pH 7.23 L Bicarbonate Actual 39.5 H Total CO2 42 Base Excess 12 H O2 Saturation 92 L ABG pCO2 94.2 H* ABG pO2 80 Rosa Test Positive O2 Delivery Device Cannula Liter Flow 5.0 Crit Call To/Read Back Yes Blood Gas Notified Whom spencer Radiology Impression Chest X-Ray 05/28/22 13:50 IMPRESSION: Pulmonary findings appear worse. Electronically Signed: Simone Cevallos MD at 14:22 EST , Assessment & Plan Assessment/Plan (1) Hypercarbia: (2) Pneumonia: (3) Hypoxia: PLAN: Plan 1. Acute on chronic hypercapneic failure secondary to COPD exacerbation/pneumonia Patient is typically on 2.5 L of oxygen, currently on BiPAP ABG shows pH of 7.22 with PCO2 94.2 Chest X-ray showed right-sided infiltrate with pleural effusion Admit to PCU, continue breathing treatments, IV Solu-Medrol, IV Levaquin Check sputum culture, urine Legionella and streptococcal antigen 2. Acute metabolic encephalopathy secondary to #1 We will continue to monitor 3. Relative hypotension, patient with Hypertension Will hold losartan for now, continue on gentle IV fluids Continue to monitor blood pressure 4. Obesity/Obesity hypoventilation syndrome Outpatient obesity management recommended 5. Depression, continue Zoloft, amitryptiline 6. GERD, continue omeprazole 7. DVT PPx- Lovenox BID Charges/Coding Addendum Addendum: Total time spent: 75 minutes of which more > 50% was spent in reviewing patient's chart, laboratory investigations, imaging, discussed with emergency physician, taking history and physical examining patient. Visit Charges Inpatient E&M: 51506 Init Hosp L3 05/28/22 9321 <Electronically signed by Joana Perez MD> Cosigner Signature (if applicable): CC: Dr. Joana Perez MD; Sepideh Patterson MD~ [facility] Work Phone: [phone]) 316-572802-07-[address] Pascual [facility] May 16, 2022 12:26pm Note Date/Time May 16, 2022 1 2:26pm [facility] Medical Records Department [address] [place] [address] Discharge Summary 05/16/22 1224 MR#: [id number] Acct: [id number] Name: HE LAUREANO Rep #:[id number] : 1960 61 From: Leanna Pascual MD PCP: Sepideh Patterson MD Status:ADM IN Location: [place] [id number] Providers Date of Admission: 05/14/22 Date of Discharge: 05/16/22 Primary Care Physician: Dr. Sepideh Patterson MD Consultations 05/16/22 08:44 Consult: Infectious Disease Routine Consulting Provider: Prosper Lorenzo Reason for Consult: mdro uti EMERGENT Consult: No MD Notified: Yes Date Notified: 05/16/22 Time Notified: 09:18 Method of Notification: Answering Service Reason For Visit: HYPOTENSION AND UTI Diagnosis Discharge Diagnosis (1) UTI (urinary tract infection): Status: Acute Code(s): N39.0 - Urinary tract infection, site not specified (2) Acute kidney injury: Status: Acute Code(s): N17.9 - Acute kidney failure, unspecified (3) Chronic respiratory failure with hypoxia: Status: Chronic Code(s): J96.11 - Chronic respiratory failure with hypoxia (4) COPD (chronic obstructive pulmonary disease): Status: Chronic Code(s): J44.9 - Chronic obstructive pulmonary disease, unspecified (5) MARISOL (obstructive sleep apnea): Status: Acute Code(s): G47.33 - Obstructive sleep apnea (adult) (pediatric) Plan Patient is a 61-year-old female with multiple comorbidities including morbid obesity with BMI of 61 admitted with hypotension. Diagnosed with acute cystitisadmitted to monitored bed for further management 1. Hypertension ? Attributed to volume depletion as evidenced by patient acute kidney injury management IV fluids with close monitoring of electrolyte 2. Acute cystitis with Proteus mirabilis ? Patient urine cultures so far positive for Proteus species final identification and sensitivities pending Patient urine cultures resulted positive for Proteus mirabilis multidrug- resistant. Case discussed with infectious disease patient will receive fosfomycin 1 dose prior to discharge 3. Acute metabolic encephalopathy ? Due to a combination of medications as well as patient underlying infection and the suspected offending medications held on admission 4. Chronic hypoxic respiratory failure ? Due to obstructive sleep apnea as well as obesity hypoventilation syndrome patient is on baseline oxygen 5. Obesity hypoventilation syndrome ? Consistent use of BiPAP encouraged 6. COPD ? Currently not in exacerbation aerosol treatments as needed 7. Essential hypertension ? Patient presented with hypotension patient antihypertensives placed on hold 8. Class III obesity with BMI of 61.7 ? Weight loss advised 9. DVT prophylaxis ? SC heparin Time spent in the patient's overall evaluation,decision-making process, review of diagnostic data, adjustment of management, discussion with other providers, nursing nursing and ancillary staff involved in patient's care documentation,40 minutes Medications at Discharge Home Medications acetaminophen 325 mg tablet 650 mg PO Q4H PRN Pain 05/03/22 acetaminophen 325 mg tablet 650 mg PO TID PAIN 05/03/22 albuterol sulfate 90 mcg/actuation aerosol inhaler 2 puff inhalation Q2H PRN Shortness Of Breath 05/03/22 amitriptyline 25 mg tablet 25 mg PO QHS DEPRESSION 05/03/22 atorvastatin 20 mg tablet 20 mg PO QHS CHOLESTEROL 05/03/22 calcium polycarbophil 625 mg tablet (FiberCon) 625 mg PO DAILY CONSTIPATION 05/03/22 cyclobenzaprine 10 mg tablet 10 mg PO TID MUSCLE SPASMS 05/03/22 dextrose 40 % oral gel (Glucose Gel) 10 g PO Q15M PRN HYPOGLYCEMIC EPISODE 05/03/22 ergocalciferol (vitamin D2) 1,250 mcg (50,000 unit) capsule (Vitamin D2) 1,250 mcg PO SA SUPPLEMENT 05/03/22 famotidine 20 mg tablet 20 mg PO BID GERD 05/03/22 fluticasone propionate 50 mcg/actuation nasal spray,suspension 2 spray intranasal BID NASAL CONGESTION 05/03/22 gabapentin 100 mg capsule 300 mg PO BID NERVE PAIN 05/03/22 guaifenesin 600 mg tablet, extended release 12 hr (Mucinex) 600 mg PO BID CONGESTION 05/03/22 hydroxyzine HCl 50 mg tablet 50 mg PO Q12H PRN Anxiety 05/03/22 lidocaine 4 % topical patch 1 patch topical DAILY PAIN 05/03/22 loperamide 2 mg tablet 2 mg PO Q6H PRN Diarrhea 05/03/22 losartan 50 mg tablet 50 mg PO DAILY BLOOD PRESSURE 05/03/22 methyl salicylate 15 %-menthol 10 % topical cream (Muscle Rub) 1 applic topical BID PRN LEFT SHOULDER PAIN 05/03/22 montelukast 10 mg tablet 10 mg PO DAILY ALLERGIES 05/03/22 omeprazole 20 mg tablet,delayed release 20 mg PO DAILY GERD 05/03/22 ondansetron 4 mg oral soluble film 4 mg PO Q8H PRN Nausea 05/03/22 roflumilast 500 mcg tablet (Daliresp) 500 mcg PO DAILY ASTHMA 05/03/22 sertraline 100 mg tablet (Zoloft) 100 mg PO QHS DEPRESSION 05/03/22 tiotropium bromide 2.5 mcg/actuation mist for inhalation (Spiriva Respimat) 2 puff inhalation QHS ASTHMA 05/03/22 dicyclomine 10 mg capsule 10 mg PO 4X/DAY #1 cap 05/05/22 sucralfate 1 gram tablet 1 g PO TID@0700,1100,1600 #0 tabs 05/05/22 menthol 0.44 %-zinc oxide 20.6 % topical ointment (Calmoseptine) 1 applic topical BID Skin irritation 05/14/22 nystatin 100,000 unit/gram topical powder (Nyamyc) 1 applic topical TID affectedareas 05/14/22 Hospital Course Summary of Care Provided Minutes Spent on Discharge: 40 Physical Exam Narrative GENERAL: cooperative HEENT: Atraumatic; normocephalic EYES; Anicteric, Normal Conjunctiva NECK; supple, normal thyroid, RESPIRATORY: Diminished to auscultation CARDIOVASCULAR: Regular S1 S2, GI: soft, normoactive bowel sounds, : No Renal angle tenderness; EXTREMITIES: No edema, no clubbing, MUSCULOSKELETAL: no muscle wasting NEURO: Awake; no lateralizing signs. SKIN: No Rash PSYCH; Flat affect Weight / BMI Weight Weight: 173.3 kg Body Mass Index (BMI) 61.2 ABG / Lab / Microbiology Data Result Diagrams: 05/16/22 09:42 05/16/22 09:42 Laboratory: Laboratory Results - last 24 hr 05/16/22 01:18: Vancomycin Trough 23.5 H 05/16/22 09:42: WBC 6.9, RBC 3.52 L, Hgb 9.4 L, Hct 32.2 L, MCV 91.5, MCH 26.7 L, MCHC 29.2 L, RDW Std Deviation 43.9, RDW Coeff of David 13.3, Plt Count 243, MPV11.3, Immature Gran % (Auto) 1.300 H, Neut % (Auto) 62.2, Lymph % (Auto) 26.7, Nobles % (Auto) 7.2, Eos % (Auto) 2.5, Baso % (Auto) 0.1, Absolute Neuts (auto) 4.3, Absolute Lymphs (auto) 1.83, Nucleated RBC % 0.4 05/16/22 09:42: Sodium 142, Potassium 3.6, Chloride 103, Carbon Dioxide 32.0, Anion Gap 7, BUN 18, Creatinine 0.77, Estim Creat Clear Calc 72.73, Est GFR (MDRD) Af Amer 99, Est GFR (MDRD) Non-Af 81, BUN/Creatinine Ratio 23.4 H, Glucose 107 H, Calcium 9.5, Magnesium 1.4 L Microbiology: Microbiology 05/14/22 09:50 Blood Culture (Wb) - Left Forearm Blood Culture - Preliminary No growth in 48 hours. 05/14/22 10:00 Blood Culture (Wb) - Anticubital Left Blood Culture - Preliminary No growth in 48 hours. 05/14/22 11:13 Urine, Catheterized Urine Culture - Final Proteus mirabilis D/C Instructions Discharge Diet: No restrictions Discharge Activity: Return to Normal Activity Call your doctor if you observe: Fever of 101 or Higher, Shortness of breath, Fainting spells and Chest pain Meaningful Use Info Meaningful Use Diagnoses (Choose all that apply): None applicable Discharge Plan Admission Admit Date/Time: 05/14/22 12:20 Attending Provider: Leanna Pascual Primary Care Provider: Sepideh Patterson Consulting Providers: Amaya Jacome ; Prosper Lorenzo Discharge Orders/Prescriptions Prescriptions: Continued losartan 50 mg Tablet 50 mg PO DAILY cyclobenzaprine 10 mg Tablet 10 mg PO TID acetaminophen 325 mg Tablet 650 mg PO Q4H PRN (Reason: Pain) acetaminophen 325 mg Tablet 650 mg PO TID atorvastatin 20 mg Tablet 20 mg PO QHS lidocaine 4 % Adhesive Patch,Medicated 1 patch TOPICAL DAILY dextrose [Glucose Gel] 40 % Gel 10 g PO Q15M PRN (Reason: HYPOGLYCEMIC EPISODE) sertraline [Zoloft] 100 mg Tablet 100 mg PO QHS loperamide 2 mg Tablet 2 mg PO Q6H PRN (Reason: Diarrhea) hydroxyzine HCl 50 mg Tablet 50 mg PO Q12H PRN (Reason: Anxiety) famotidine 20 mg Tablet 20 mg PO BID amitriptyline 25 mg Tablet 25 mg PO QHS calcium polycarbophil [FiberCon] 625 mg Tablet 625 mg PO DAILY montelukast 10 mg Tablet 10 mg PO DAILY gabapentin 100 mg Capsule 300 mg PO BID ergocalciferol (vitamin D2) [Vitamin D2] 1,250 mcg (50,000 unit) Capsule 1,250 mcg PO SA albuterol sulfate 90 mcg/actuation Hfa Aerosol Inhaler 2 puff INHALATION Q2H PRN (Reason: Shortness Of Breath) fluticasone propionate 50 mcg/actuation [place],Suspension 2 spray INTRANASAL BID Muscle Rub 15-10 % Cream 1 applic TOPICAL BID PRN (Reason: LEFT SHOULDER PAIN) omeprazole 20 mg Tablet,Delayed Release (Dr/Ec) 20 mg PO DAILY ondansetron 4 mg Film 4 mg PO Q8H PRN (Reason: Nausea) roflumilast [Daliresp] 500 mcg Tablet 500 mcg PO DAILY Spiriva Respimat 2.5 mcg/actuation Mist 2 puff INHALATION QHS guaifenesin [Mucinex] 600 mg Tablet Extended Release 12hr 600 mg PO BID sucralfate 1 gram Tablet 1 g PO TID@0700,1100,1600 Qty: 0 0RF dicyclomine 10 mg Capsule 10 mg PO 4X/DAY Qty: 1 0RF nystatin [Nyamyc] 100,000 unit/gram powder 1 applic topical TID Protocol: *Topical Application Instructions APPLICATION INSTRUCTIONS: affected areas menthol-zinc oxide [Calmoseptine] 0.44-20.6 % ointment 1 applic topical BID Protocol: *Topical Application Instructions APPLICATION INSTRUCTIONS: affected areas Discontinued cephalexin 500 mg capsule 500 mg PO TID Rx Instructions: start on 05/06/22 Referrals / Follow Up: Sepideh Patterson MD [Primary Care Provider] - Disposition Disposition (needs filled in before D/C Order can be placed): Intermediate Facility Charges/Coding Visit Charges Inpatient E&M: 21740 Disch Hosp >30min 05/16/22 1226 <Electronically signed by Leanna Pascual MD> Cosigner Signature (if applicable): CC: Dr. Leanna Pascual MD; Sepideh Patterson MD~ Signed [facility] Work Phone: 1(543) 976-846002-07-[address] Pascual [facility] May 16, 2022 12:24pm Note Date/Time May 16, 2022 1 2:20pm [facility] Medical Records Department [address] [place] [address] Transfer to [facility] MR#: [id number] Acct: [id number] Name: HE LAUREANO Rep #:[id number] : 1960 61 From: Leanna Pascual MD PCP: Sepideh Patterson MD Status:ADM IN Certification of patient admission REQUIRED AT TIME OF ADMISSION. I CERTIFY THAT POST-HOSPITAL ECF SERVICES ARE REQUIRED TO BE GIVEN ON AN IN-PATIENT BASIS BECAUSE OF THE ABOVE NAMED PATIENT'S NEED FOR RESIDENTIAL CARE ON A CONTINUING BASIS FOR THE CONDITION(S) FOR WHICH HE/SHE WAS RECEIVING IN-PATIENT HOSPITAL SERVICES PRIOR TO HIS/HER TRANSFER TO THE F. 05/16/22 1224<Electronically signed by Leanna Pascual MD> Diet Diet Order/Speech Therapy: 05/14/22 13:22 Diet: Cardiac - Heart Healthy Is pt able to select menu?: Yes Diet Comments: Untile mentation improves Wound(s) rt foot toe: Wound Type: scabbed Therapies Physical Therapy: Eval and Treat Occupational Therapy: Eval and Treat Problem/Diagnosis (1) UTI (urinary tract infection): Status: Acute Code(s): N39.0 - Urinary tract infection, site not specified (2) Acute kidney injury: Status: Acute Code(s): N17.9 - Acute kidney failure, unspecified (3) Chronic respiratory failure with hypoxia: Status: Chronic Code(s): J96.11 - Chronic respiratory failure with hypoxia (4) COPD (chronic obstructive pulmonary disease): Status: Chronic Code(s): J44.9 - Chronic obstructive pulmonary disease, unspecified (5) MARISOL (obstructive sleep apnea): Status: Acute Code(s): G47.33 - Obstructive sleep apnea (adult) (pediatric) Plan Patient is a 61-year-old female with multiple comorbidities including morbid obesity with BMI of 61 admitted with hypotension. Diagnosed with acute cystitisadmitted to monitored bed for further management 1. Hypertension ? Attributed to volume depletion as evidenced by patient acute kidney injury management IV fluids with close monitoring of electrolyte 2. Acute cystitis with Proteus mirabilis ? Patient urine cultures so far positive for Proteus species final identification and sensitivities pending Patient urine cultures resulted positive for Proteus mirabilis multidrug- resistant. Case discussed with infectious disease patient will receive fosfomycin 1 dose prior to discharge 3. Acute metabolic encephalopathy ? Due to a combination of medications as well as patient underlying infection and the suspected offending medications held on admission 4. Chronic hypoxic respiratory failure ? Due to obstructive sleep apnea as well as obesity hypoventilation syndrome patient is on baseline oxygen 5. Obesity hypoventilation syndrome ? Consistent use of BiPAP encouraged 6. COPD ? Currently not in exacerbation aerosol treatments as needed 7. Essential hypertension ? Patient presented with hypotension patient antihypertensives placed on hold 8. Class III obesity with BMI of 61.7 ? Weight loss advised 9. DVT prophylaxis ? SC heparin Time spent in the patient's overall evaluation,decision-making process, review of diagnostic data, adjustment of management, discussion with other providers, nursing nursing and ancillary staff involved in patient's care documentation,40 minutes Allergies/Procedures Done in Hospital Allergies aspirin Allergy (Verified 05/14/22 09:43) Other black pepper [pepper] Allergy (Verified 05/14/22 09:43) Other coconut Allergy (Verified 05/14/22 09:43) Other codeine Allergy (Verified 05/14/22 09:43) Other ibuprofen Allergy (Verified 05/14/22 09:43) Other Influenza Virus Vaccines Allergy (Verified 05/14/22 09:43) Other Penicillins Allergy (Verified 05/14/22 09:43) Anaphylaxis rice Allergy (Verified 05/14/22 09:43) Other tetanus and diphtheria toxoids Allergy (Verified 05/14/22 09:43) Other Tetanus Vaccines and Toxoid Allergy (Verified 05/14/22 09:43) Other Type of Care/Length of Stay Estimated LOS: More Than 30 Days Type of Care Needed: Skilled Rehab Potential: Good Prognosis: Good Additional Orders/Day of Discharge Day of Discharge: 05/16/22 Dietary and Speech Recommendations Dietitian Recommendations/Changes: Continue cardiac diet as PO established; will limit calories as needed. Discharge Plan Admission Admit Date/Time: 05/14/22 12:20 Attending Provider: Leanna Pascual Primary Care Provider: Sepideh Patterson Consulting Providers: Amaya Jacome ; Prosper Lorenzo Discharge Orders/Prescriptions Prescriptions: Continued losartan 50 mg Tablet 50 mg PO DAILY cyclobenzaprine 10 mg Tablet 10 mg PO TID acetaminophen 325 mg Tablet 650 mg PO Q4H PRN (Reason: Pain) acetaminophen 325 mg Tablet 650 mg PO TID atorvastatin 20 mg Tablet 20 mg PO QHS lidocaine 4 % Adhesive Patch,Medicated 1 patch TOPICAL DAILY dextrose [Glucose Gel] 40 % Gel 10 g PO Q15M PRN (Reason: HYPOGLYCEMIC EPISODE) sertraline [Zoloft] 100 mg Tablet 100 mg PO QHS loperamide 2 mg Tablet 2 mg PO Q6H PRN (Reason: Diarrhea) hydroxyzine HCl 50 mg Tablet 50 mg PO Q12H PRN (Reason: Anxiety) famotidine 20 mg Tablet 20 mg PO BID amitriptyline 25 mg Tablet 25 mg PO QHS calcium polycarbophil [FiberCon] 625 mg Tablet 625 mg PO DAILY montelukast 10 mg Tablet 10 mg PO DAILY gabapentin 100 mg Capsule 300 mg PO BID ergocalciferol (vitamin D2) [Vitamin D2] 1,250 mcg (50,000 unit) Capsule 1,250 mcg PO SA albuterol sulfate 90 mcg/actuation Hfa Aerosol Inhaler 2 puff INHALATION Q2H PRN (Reason: Shortness Of Breath) fluticasone propionate 50 mcg/actuation [place],Suspension 2 spray INTRANASAL BID Muscle Rub 15-10 % Cream 1 applic TOPICAL BID PRN (Reason: LEFT SHOULDER PAIN) omeprazole 20 mg Tablet,Delayed Release (Dr/Ec) 20 mg PO DAILY ondansetron 4 mg Film 4 mg PO Q8H PRN (Reason: Nausea) roflumilast [Daliresp] 500 mcg Tablet 500 mcg PO DAILY Spiriva Respimat 2.5 mcg/actuation Mist 2 puff INHALATION QHS guaifenesin [Mucinex] 600 mg Tablet Extended Release 12hr 600 mg PO BID sucralfate 1 gram Tablet 1 g PO TID@0700,1100,1600 Qty: 0 0RF dicyclomine 10 mg Capsule 10 mg PO 4X/DAY Qty: 1 0RF nystatin [Nyamyc] 100,000 unit/gram powder 1 applic topical TID Protocol: *Topical Application Instructions APPLICATION INSTRUCTIONS: affected areas menthol-zinc oxide [Calmoseptine] 0.44-20.6 % ointment 1 applic topical BID Protocol: *Topical Application Instructions APPLICATION INSTRUCTIONS: affected areas Discontinued cephalexin 500 mg capsule 500 mg PO TID Rx Instructions: start on 05/06/22 Referrals / Follow Up: Sepideh Patterson MD [Primary Care Provider] - Disposition Disposition (needs filled in before D/C Order can be placed): Intermediate Facility 05/16/22 1224 <Electronically signed by Leanna Pascual MD> Cosigner Signature (if applicable): CC: Dr. Amaya Jacome MD; Dr. Prosper Lorenzo MD; Sepideh Patterson MD ~ [facility] Work Phone: [phone]) 677-486702-07-[address] Pascual [facility] May 16, 2022 12:17pm Note Date/Time May 16, 2022 1 2:17pm [facility] Medical Records Department [address] [place] [id number] Progress Note - Hospitalist 05/16/22 1216 MR#: [id number] Acct: [id number] Name: HE LAUREANO Rep #:[id number] : 1960 61 From: Leanna Pascual MD PCP: Sepideh Patterson MD Status:ADM IN Location: [facility] [id number] Subjective Subjective Patient urine cultures resulted positive for Proteus mirabilis multidrug- resistant. Case discussed with infectious disease patient will receive fosfomycin 1 dose prior to discharge Objective Data Objective Data Vital Signs: Vital Signs Temp Pulse Resp BP Pulse Ox O2 Del Method O2 Flow Rate 97.7 F L 79 16 118/53 L 96 Nasal Cannula 4 05/16/22 10:14 05/16/22 10:14 05/16/22 10:14 05/16/22 10:14 05/16/22 10:14 05/16/22 10:30 05/16/22 10:30 FiO2 40 05/14/22 21:00 Oxygen Flow Rate (L/min) 4 Oxygen Delivery Method Nasal Cannula Weight: 173.3 kg Body Mass Index (BMI) 61.2 Intake & Output: Intake and Output for Last 24 Hours 05/14/22 05/15/22 05/16/22 23:59 23:59 23:59 Intake Total 2573.75 / 2573.75 4742.5 / 4742.5 1630 / 1630 Output Total 650 / 650 3150 / 3150 900 / 900 Balance 1923.75 / 1923.75 1592.5 / 1592.5 730 / 730 Lab / Micro Data Result Diagrams: 05/16/22 09:42 05/16/22 09:42 Labs: Laboratory Results - last 24 hr 05/16/22 01:18: Vancomycin Trough 23.5 H 05/16/22 09:42: WBC 6.9, RBC 3.52 L, Hgb 9.4 L, Hct 32.2 L, MCV 91.5, MCH 26.7 L, MCHC 29.2 L, RDW Std Deviation 43.9, RDW Coeff of David 13.3, Plt Count 243, MPV11.3, Immature Gran % (Auto) 1.300 H, Neut % (Auto) 62.2, Lymph % (Auto) 26.7, Nobles % (Auto) 7.2, Eos % (Auto) 2.5, Baso % (Auto) 0.1, Absolute Neuts (auto) 4.3, Absolute Lymphs (auto) 1.83, Nucleated RBC % 0.4 05/16/22 09:42: Sodium 142, Potassium 3.6, Chloride 103, Carbon Dioxide 32.0, Anion Gap 7, BUN 18, Creatinine 0.77, Estim Creat Clear Calc 72.73, Est GFR (MDRD) Af Amer 99, Est GFR (MDRD) Non-Af 81, BUN/Creatinine Ratio 23.4 H, Glucose 107 H, Calcium 9.5, Magnesium 1.4 L Micro: Microbiology 05/14/22 09:50 Blood Culture (Wb) - Left Forearm Blood Culture - Preliminary No growth in 48 hours. 05/14/22 10:00 Blood Culture (Wb) - Anticubital Left Blood Culture - Preliminary No growth in 48 hours. 05/14/22 11:13 Urine, Catheterized Urine Culture - Final Proteus mirabilis Physical Exam Narrative GENERAL: cooperative HEENT: Atraumatic; normocephalic EYES; Anicteric, Normal Conjunctiva NECK; supple, normal thyroid, RESPIRATORY: Diminished to auscultation CARDIOVASCULAR: Regular S1 S2, GI: soft, normoactive bowel sounds, : No Renal angle tenderness; EXTREMITIES: No edema, no clubbing, MUSCULOSKELETAL: no muscle wasting NEURO: Awake; no lateralizing signs. SKIN: No Rash PSYCH; Flat affect Assessment & Plan Assessment/Plan (1) UTI (urinary tract infection): (2) Acute kidney injury: (3) Chronic respiratory failure with hypoxia: (4) COPD (chronic obstructive pulmonary disease): (5) MARISOL (obstructive sleep apnea): PLAN: Plan Patient is a 61-year-old female with multiple comorbidities including morbid obesity with BMI of 61 admitted with hypotension. Diagnosed with acute cystitisadmitted to monitored bed for further management 1. Hypertension ? Attributed to volume depletion as evidenced by patient acute kidney injury management IV fluids with close monitoring of electrolyte 2. Acute cystitis with Proteus mirabilis ? Patient urine cultures so far positive for Proteus species final identification and sensitivities pending Patient urine cultures resulted positive for Proteus mirabilis multidrug- resistant. Case discussed with infectious disease patient will receive fosfomycin 1 dose prior to discharge 3. Acute metabolic encephalopathy ? Due to a combination of medications as well as patient underlying infection and the suspected offending medications held on admission 4. Chronic hypoxic respiratory failure ? Due to obstructive sleep apnea as well as obesity hypoventilation syndrome patient is on baseline oxygen 5. Obesity hypoventilation syndrome ? Consistent use of BiPAP encouraged 6. COPD ? Currently not in exacerbation aerosol treatments as needed 7. Essential hypertension ? Patient presented with hypotension patient antihypertensives placed on hold 8. Class III obesity with BMI of 61.7 ? Weight loss advised 9. DVT prophylaxis ? SC heparin Time spent in the patient's overall evaluation,decision-making process, review of diagnostic data, adjustment of management, discussion with other providers, nursing nursing and ancillary staff involved in patient's care documentation,40 minutes Charges/Coding Visit Charges Inpatient E&M: 95303 Subs Hosp L2 Reason for Visit Reason for Visit: Diagnoses Obstructive sleep apnea (adult) (pediatric) (05/14/22) Chronic obstructive pulmonary disease, unspecified (05/14/22) Chronic respiratory failure with hypoxia (05/14/22) Acute kidney failure, unspecified (05/14/22) Urinary tract infection, site not specified (05/14/22) 05/16/22 1217 <Electronically signed by Leanna Pascual MD> Cosigner Signature (if applicable): CC: ~ Signed [facility] Work Phone: 1(510) 121-421202-07-[address] Lorenzo [facility] May 16, 2022 10:57am Note Date/Time May 16, 2022 1 0:57am [facility] Medical Records Department [address] [place] [address] Consultation - Infectious Dx 05/16/22 1052 MR#: [id number] Acct: [id number] Name: HE LAUREANO Rep #:[id number] : 1960 61 From: Prosper read MD PCP: Sepideh Patterson MD Status:ADM IN Location: [place] [address] Assessment & Plan Assessment/Plan (1) UTI (urinary tract infection): PLAN: Ucx with a resistant proteus. Has been on appropriate therapy with cefepime since 05/14. Encephalopathy rapidly resolved prior to receiving effective antibiotic therapy. UA did have only 10-25 wbc. ZONIA resolved. Cont cefepime while inpatient, would give single 3gm dose po fosfomycin prior to discharge. Will follow, thank you, d/w Dr. Pascual (2) Acute kidney injury: HPI Consult Data Date of Consult: 05/16/22 HPI Narrative Reason for Consultation: uti HPI Narrative: HE LAUREANO, is a 61 F who presented 05/14 with hypotension and altered mental status from [facility]. Recent admit for ecoli uti, discharged 05/05 on keflex. Given ceftriaxone in ED here, found to have ZONIA and uti. Denies any urinary symptoms. Mental status improved rapidly. Has been on cefepime since 05/14. Feeling fine. Full ROS performed and neg except as noted above. Reports chronic diarrhea due to IBS, stools currently at baseline. 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 deficits Seasonal allergies TIA (transient ischemic attack) UTI (urinary tract infection) Vitamin D deficiency Home Medications acetaminophen 325 mg tablet 650 mg PO Q4H PRN Pain 05/03/22 [History Last Taken Unknown] acetaminophen 325 mg tablet 650 mg PO TID PAIN 05/03/22 [History Last Taken 05/03/22] albuterol sulfate 90 mcg/actuation aerosol inhaler 2 puff inhalation Q2H PRN Shortness Of Breath 05/03/22 [History Last Taken Unknown] amitriptyline 25 mg tablet 25 mg PO QHS DEPRESSION 05/03/22 [History Last Taken 05/02/22] atorvastatin 20 mg tablet 20 mg PO QHS CHOLESTEROL 05/03/22 [History Last Taken 05/02/22] calcium polycarbophil 625 mg tablet (FiberCon) 625 mg PO DAILY CONSTIPATION 05/03/22 [History Last Taken 05/03/22] cyclobenzaprine 10 mg tablet 10 mg PO TID MUSCLE SPASMS 05/03/22 [History Last Taken 05/03/22] dextrose 40 % oral gel (Glucose Gel) 10 g PO Q15M PRN HYPOGLYCEMIC EPISODE 05/03/22 [History Last Taken Unknown] ergocalciferol (vitamin D2) 1,250 mcg (50,000 unit) capsule (Vitamin D2) 1,250 mcg PO SA SUPPLEMENT 05/03/22 [History Last Taken 04/29/22] famotidine 20 mg tablet 20 mg PO BID GERD 05/03/22 [History Last Taken 05/03/22] fluticasone propionate 50 mcg/actuation nasal spray,suspension 2 spray intranasal BID NASAL CONGESTION 05/03/22 [History Last Taken 05/03/22] gabapentin 100 mg capsule 300 mg PO BID NERVE PAIN 05/03/22 [History Last Taken 05/03/22] guaifenesin 600 mg tablet, extended release 12 hr (Mucinex) 600 mg PO BID CONGESTION 05/03/22 [History Last Taken 05/03/22] hydroxyzine HCl 50 mg tablet 50 mg PO Q12H PRN Anxiety 05/03/22 [History Last Taken Unknown] lidocaine 4 % topical patch 1 patch topical DAILY PAIN 05/03/22 [History Last Taken 05/03/22] loperamide 2 mg tablet 2 mg PO Q6H PRN Diarrhea 05/03/22 [History Last Taken Unknown] losartan 50 mg tablet 50 mg PO DAILY BLOOD PRESSURE 05/03/22 [History Last Taken 05/03/22] methyl salicylate 15 %-menthol 10 % topical cream (Muscle Rub) 1 applic topical BID PRN LEFT SHOULDER PAIN 05/03/22 [History Last Taken 05/03/22] montelukast 10 mg tablet 10 mg PO DAILY ALLERGIES 05/03/22 [History Last Taken 05/03/22] omeprazole 20 mg tablet,delayed release 20 mg PO DAILY GERD 05/03/22 [History Last Taken 05/03/22] ondansetron 4 mg oral soluble film 4 mg PO Q8H PRN Nausea 05/03/22 [History Last Taken Unknown] roflumilast 500 mcg tablet (Daliresp) 500 mcg PO DAILY ASTHMA 05/03/22 [History Last Taken 05/03/22] sertraline 100 mg tablet (Zoloft) 100 mg PO QHS DEPRESSION 05/03/22 [History Last Taken 05/02/22] tiotropium bromide 2.5 mcg/actuation mist for inhalation (Spiriva Respimat) 2 puff inhalation QHS ASTHMA 05/03/22 [History Last Taken 05/02/22] dicyclomine 10 mg capsule 10 mg PO 4X/DAY #1 cap 05/05/22 [Rx Last Taken Unknown] sucralfate 1 gram tablet 1 g PO TID@0700,1100,1600 #0 tabs 05/05/22 [Rx Last Taken Unknown] cephalexin 500 mg capsule 500 mg PO TID Check with primary doctor 05/14/22 [History Last Taken Unknown] menthol 0.44 %-zinc oxide 20.6 % topical ointment (Calmoseptine) 1 applic topical BID Skin irritation 05/14/22 [History Last Taken Unknown] nystatin 100,000 unit/gram topical powder (Nyamyc) 1 applic topical TID affectedareas 05/14/22 [History Last Taken Unknown] Allergy/AdvReac Type Severity Reaction Status Date / Time aspirin Allergy Other Verified 05/14/22 09:43 black pepper [pepper] Allergy Other Verified 05/14/22 09:43 coconut Allergy Other Verified 05/14/22 09:43 codeine Allergy Other Verified 05/14/22 09:43 ibuprofen Allergy Other Verified 05/14/22 09:43 Influenza Virus Vaccines Allergy Other Verified 05/14/22 09:43 Penicillins Allergy Anaphylaxis Verified 05/14/22 09:43 rice Allergy Other Verified 05/14/22 09:43 tetanus and diphtheria Allergy Other Verified 05/14/22 09:43 toxoids Tetanus Vaccines and Toxoid Allergy Other Verified 05/14/22 09:43 Family History Other CAD (coronary artery disease) COPD (chronic obstructive pulmonary disease) Hypertension Social History housing: assisted Smoking Status: Former smoker alcohol intake: never substance use type: does not use Physical Exam Const alert, oriented x3 and no apparent distress General Appearance: cooperative HEENT normocephalic and head/scalp atraumatic Eyes PERRL and EOMs intact bilaterally Neck supple and No nodes Resp normal air movement and clear to auscultation bilaterally Cardio regular rate and regular rhythm GI soft to palpation, non-tender and non-distended Extremity General Extremity: edema Skin no rashes or lesions noted Neuro CN's II-XII intact bilaterally Lab / Micro Data Attestation: I reviewed the patient's lab results. Result Diagrams: 05/16/22 09:42 05/15/22 06:20 Labs: Laboratory Results - last 24 hr 05/14/22 18:15: MRSA (PCR) Negative 05/16/22 01:18: Vancomycin Trough 23.5 H 05/16/22 09:42: WBC 6.9, RBC 3.52 L, Hgb 9.4 L, Hct 32.2 L, MCV 91.5, MCH 26.7 L, MCHC 29.2 L, RDW Std Deviation 43.9, RDW Coeff of David 13.3, Plt Count 243, MPV 11.3, Immature Gran % (Auto) 1.300 H, Neut % (Auto) 62.2, Lymph % (Auto) 26.7, Nobles % (Auto) 7.2, Eos % (Auto) 2.5, Baso % (Auto) 0.1, Absolute Neuts (auto) 4.3, Absolute Lymphs (auto) 1.83, Nucleated RBC % 0.4 Micro: Microbiology 05/14/22 09:50 Blood Culture (Wb) - Left Forearm Blood Culture - Preliminary No growth in 48 hours. 05/14/22 10:00 Blood Culture (Wb) - Anticubital Left Blood Culture - Preliminary No growth in 48 hours. 05/14/22 11:13 Urine, Catheterized Urine Culture - Final Proteus mirabilis 05/16/22 1057 <Electronically signed by Prosper Lorenzo MD> Cosigner Signature (if applicable): CC: Dr. Amaya Jacome MD; Dr. Prosper Lorenzo MD; Sepideh Patterson MD~ Signed [facility] Work Phone: 1(978) 639-505202-07-2023 Consult note Author Jayme Peterson [facility] May 16, 2022 2:56am Note Date/Time May 16, 2022 2 :56am [facility] Medical Records Department [address] [place] [address] Pharmacokinetic/Renal -Consult 05/16/22 0253 MR#: [id number] Acct: [id number] Name: HE ALUREANO Rep #:[id number] : 1960 61 From: Jayme Peterson PCP: Sepideh Patterson MD Status:ADM IN Y Location: [place] [address] Consult Pharmacy has been consulted to manage selected antiobiotic: Vancomycin Type of Consult: Follow-up Suspected Infection: Other Prior Doses of Antibiotics Received/Current Regimen: Medications Discontinued Medications Vancomycin HCl (Vancomycin) 1,000 mg in 200 mls @ 200 mls/hr IV Q12H MARY Last Admin: 05/15/22 15:52 Dose: Infused Labs: Sodium 141 mmol/L (136-145) 05/15/22 06:20 Potassium 3.7 mmol/L (3.5-5.1) 05/15/22 06:20 Chloride 97 mmol/L (98-107) L 05/15/22 06:20 Carbon Dioxide 37.0 mmol/L (21.0-32.0) H 05/15/22 06:20 Anion Gap 7 (5-15) 05/15/22 06:20 BUN 37 mg/dL (7-18) H 05/15/22 06:20 Creatinine 1.30 mg/dL (0.55-1.02) H 05/15/22 06:20 Est GFR (MDRD) Af Amer 54 mL/min (>60) L 05/15/22 06:20 Est GFR (MDRD) Non-Af 44 mL/min (>60) L 05/15/22 06:20 BUN/Creatinine Ratio 28.5 RATIO (10-20) H 05/15/22 06:20 Glucose 101 mg/dL (74-106) 05/15/22 06:20 Vancomycin Trough 23.5 ug/mL (5.0-15.0) H 05/16/22 01:18 Microbiology: Microbiology 05/14/22 11:13 Urine, Catheterized Urine Culture - Preliminary Proteus sp. Weight used for dosin.3 kg Estimated Creatinine Clearance: 76 Goal Trough: 15-20 mcg/mL Pharmacy Plan for Drug Dosing: Vancomycin trough level, drawn 10.6hrs post-dose was high at 23.5. This is abovethe target range of 15-20. Will hold the current dosing and draw another level in 12 hours. Further dosing will be determined from that result. Pharmacy Service will continue to monitor and adjust dosing as required. Follow-Up Labs: Trough Vancomycin - random Labs to be done on [date and time ordered]: 05/16/22 @1330 05/16/22 0256 <Electronically signed by Jayme garvin > Date _ Jayme Brito Signature (if applicable): Date CC: ~ Signed [facility] Work Phone: 1(526) 454-169102-06-[address] Pascual [facility] May 15, 2022 3:47pm Note Date/Time May 15, 2022 3 :43pm [facility] Medical Records Department [address] [place] [address] Progress Note - Hospitalist 05/15/22 1540 MR#: [id number] Acct: [id number] Name: HE LAUREANO Rep #:[id number] : 1960 61 From: Leanna Pascual MD PCP: Sepideh Patterson MD Status:ADM IN Location: [place] [address] Subjective Subjective Patient is a 61-year-old female with multiple comorbidities including morbid obesity with BMI of 61 admitted with hypotension. Diagnosed with acute cystitisadmitted to monitored bed for further management Objective Data Objective Data Vital Signs: Vital Signs Temp Pulse Resp BP Pulse Ox O2 Del Method O2 Flow Rate 97.8 F 84 20 H 99/58 L 95 Nasal Cannula 4 05/15/22 10:59 05/15/22 13:18 05/15/22 13:18 05/15/22 10:59 05/15/22 14:00 05/15/22 14:00 05/15/22 14:00 FiO2 40 05/14/22 21:00 Oxygen Flow Rate (L/min) 4 Oxygen Delivery Method Nasal Cannula Weight: 173.3 kg Body Mass Index (BMI) 61.2 Intake & Output: Intake and Output for Last 24 Hours 05/13/22 05/14/22 05/15/22 23:59 23:59 23:59 Intake Total 2573.75 / 2573.75 2482.5 / 2482.5 Output Total 650 / 650 1450 / 1450 Balance 1923.75 / 1923.75 1032.5 / 1032.5 Lab / Micro Data Result Diagrams: 05/15/22 06:20 05/15/22 06:20 Labs: Laboratory Results - last 24 hr 05/14/22 18:15: MRSA (PCR) Negative 05/15/22 06:20: WBC 7.1, RBC 3.66 L, Hgb 9.9 L, Hct 33.6 L, MCV 91.8, MCH 27.0, MCHC 29.5 L, RDW Std Deviation 45.8 H, RDW Coeff of David 13.6, Plt Count 227, MPV11.3, Immature Gran % (Auto) 1.300 H, Neut % (Auto) 58.5, Lymph % (Auto) 28.9, Nobles % (Auto) 8.8, Eos % (Auto) 2.2, Baso % (Auto) 0.3, Absolute Neuts (auto) 4.2, Absolute Lymphs (auto) 2.06, Nucleated RBC % 0 05/15/22 06:20: Sodium 141, Potassium 3.7, Chloride 97 L, Carbon Dioxide 37.0 H,Anion Gap 7, BUN 37 H, Creatinine 1.30 H, Estim Creat Clear Calc 43.08, Est GFR (MDRD) Af Amer 54 L, Est GFR (MDRD) Non-Af 44 L, BUN/Creatinine Ratio 28.5 H, Glucose 101, Calcium 9.2, Total Bilirubin 0.20, AST 10 L, ALT 9 L, Alkaline Phosphatase 70, Total Protein 6.6, Albumin 2.5 L, Globulin 4.1, Albumin/GlobulinRatio 0.6 L, TSH 0.30 L Micro: Microbiology 05/14/22 11:13 Urine, Catheterized Urine Culture - Preliminary Proteus sp. Physical Exam Narrative GENERAL: cooperative HEENT: Atraumatic; normocephalic EYES; Anicteric, Normal Conjunctiva NECK; supple, normal thyroid, RESPIRATORY: Diminished to auscultation CARDIOVASCULAR: Regular S1 S2, GI: soft, normoactive bowel sounds, : No Renal angle tenderness; EXTREMITIES: No edema, no clubbing, MUSCULOSKELETAL: no muscle wasting NEURO: Awake; no lateralizing signs. SKIN: No Rash PSYCH; Flat affect Assessment & Plan Assessment/Plan (1) UTI (urinary tract infection): (2) Acute kidney injury: (3) Chronic respiratory failure with hypoxia: (4) COPD (chronic obstructive pulmonary disease): (5) MARISOL (obstructive sleep apnea): PLAN: Plan Patient is a 61-year-old female with multiple comorbidities including morbid obesity with BMI of 61 admitted with hypotension. Diagnosed with acute cystitisadmitted to monitored bed for further management 1. Hypertension ? Attributed to volume depletion as evidenced by patient acute kidney injury management IV fluids with close monitoring of electrolyte 2. Acute cystitis ? Patient urine cultures so far positive for Proteus species final identification and sensitivities pending 3. Acute metabolic encephalopathy ? Due to a combination of medications as well as patient underlying infection and the suspected offending medications held on admission 4. Chronic hypoxic respiratory failure ? Due to obstructive sleep apnea as well as obesity hypoventilation syndrome patient is on baseline oxygen 5. Obesity hypoventilation syndrome ? Consistent use of BiPAP encouraged 6. COPD ? Currently not in exacerbation aerosol treatments as needed 7. Essential hypertension ? Patient presented with hypotension patient antihypertensives placed on hold 8. Class III obesity with BMI of 61.7 ? Weight loss advised 9. DVT prophylaxis ? SC heparin Time spent in the patient's overall evaluation,decision-making process, review of diagnostic data, adjustment of management, discussion with other providers, nursing nursing and ancillary staff involved in patient's care documentation, 55minutes Charges/Coding Visit Charges Inpatient E&M: 61695 Subs Hosp L3 Reason for Visit Reason for Visit: Diagnoses Obstructive sleep apnea (adult) (pediatric) (05/14/22) Chronic obstructive pulmonary disease, unspecified (05/14/22) Chronic respiratory failure with hypoxia (05/14/22) Acute kidney failure, unspecified (05/14/22) Urinary tract infection, site not specified (05/14/22) 05/15/22 1547 <Electronically signed by Leanna Pascual MD> Cosigner Signature (if applicable): CC: ~ Signed [facility] Work Phone: 1(517) 317-723702-05-[address] Jacome [facility] May 14, 2022 6:53pm Note Date/Time May 14, 2022 3 :01pm [facility] Medical Records Department [address] [place] [address] Pharmacokinetic/Renal -Consult 05/14/22 1501 MR#: [id number] Acct: [id number] Name: HE LAUREANO Rep #:[id number] : 1960 61 From: Charleen Singh PCP: Sepideh Patterson MD Status:ADM IN Y Location: [place] [address] Consult Pharmacy has been consulted to manage selected antiobiotic: Vancomycin Type of Consult: New start Suspected Infection: Other Labs: Sodium 139 mmol/L (136-145) 05/14/22 10:00 Potassium 4.2 mmol/L (3.5-5.1) 05/14/22 10:00 Chloride 89 mmol/L (98-107) L 05/14/22 10:00 Carbon Dioxide 42.0 mmol/L (21.0-32.0) H 05/14/22 10:00 Anion Gap 8 (5-15) 05/14/22 10:00 BUN 47 mg/dL (7-18) H 05/14/22 10:00 Creatinine 2.36 mg/dL (0.55-1.02) H 05/14/22 10:00 Est GFR (MDRD) Af Amer 27 mL/min (>60) L 05/14/22 10:00 Est GFR (MDRD) Non-Af 22 mL/min (>60) L 05/14/22 10:00 BUN/Creatinine Ratio 19.9 RATIO (10-20) 05/14/22 10:00 Glucose 122 mg/dL (74-106) H 05/14/22 10:00 Goal Trough: 15-20 mcg/mL Pharmacy Plan for Drug Dosing: NEW START IV VANCOMYCIN Consulting Physician: Dr. Jacome Indication: UTI Goal Trough: 15-20 SrCr: 2.36 CrCl: 42 mL/min (using AdjBW) Comments: Patient ordered loading dose of 2g IV x1 administered 05/14/22 @1421 Vancomycin Dose: 1000mg IV Q12hr to start 05/15/22 @0200 Pending Level: 05/16/22 @0130, prior to 4th total dose of vancomycin per protocol. Pharmacy Service will continue to monitor and adjust dosing as required. 05/14/22 1501 <Electronically signed by Charleen Singh > Date _ Charleen Singh 05/14/22 1853 <Electronically signed by Amaya Jacome MD> Cosigner Signature (if applicable): Date Amaya Jacome MD CC: ~ Signed [facility] Work Phone: [phone]) 560-639202-05-2023 History and physical note Author Dr. Jacome [facility] May 14, 2022 5:11pm Note Date/Time May 14, 2022 1 2:40pm [facility] Medical Records Department [address] [place] [address] H&P Exam - Hospitalist 05/14/22 1230 MR#: [id number] Acct: [id number] Name: HE LAUREANO Rep #:[id number] : 1960 61 From: Amaya Jacome MD PCP: Sepideh Patterson MD Status:ADM [facility] HPI - General General Date of Admission: 05/14/22 Date of Service: 05/14/22 Chief Complaint: Low blood pressure HPI Narrative HE LAUREANO, is a 61 F with a history of hypertension, morbid obesity, MARISOL andobesity hypoventilation syndrome, COPD who presented 05/14/2022 from assisted for low blood pressure and reported low O2. She is on 4 L at baseline and on presentation here she was 94% on 5 L and was decreased back to baseline. Did have low BP that was fluid responsive and on my evaluation systolic was 103. Labs in ED with white count 12.7 with a left shift, ZONIA as well as UA suggestiveof UTI. Started on fluids, given dose of Rocephin, hospitalist consulted for admission. She was recently admitted on 05/03 for similar presentation and was discharged to SNF as she quickly stabilized. Unable to obtain history from patient and ED as she is sleeping, did wake up to sternal rub and said "ow that hurts" but then would not participate in exam. [facility] Medical History (Updated 05/14/22 @ 12:[address] 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 deficits Seasonal allergies TIA (transient ischemic attack) UTI (urinary tract infection) Vitamin D deficiency Home Medications acetaminophen 325 mg tablet 650 mg PO Q4H PRN Pain 05/03/22 [History Last Taken Unknown] acetaminophen 325 mg tablet 650 mg PO TID PAIN 05/03/22 [History Last Taken 05/03/22] albuterol sulfate 90 mcg/actuation aerosol inhaler 2 puff inhalation Q2H PRN Shortness Of Breath 05/03/22 [History Last Taken Unknown] amitriptyline 25 mg tablet 25 mg PO QHS DEPRESSION 05/03/22 [History Last Taken 05/02/22] atorvastatin 20 mg tablet 20 mg PO QHS CHOLESTEROL 05/03/22 [History Last Taken 05/02/22] calcium polycarbophil 625 mg tablet (FiberCon) 625 mg PO DAILY CONSTIPATION 05/03/22 [History Last Taken 05/03/22] cyclobenzaprine 10 mg tablet 10 mg PO TID MUSCLE SPASMS 05/03/22 [History Last Taken 05/03/22] dextrose 40 % oral gel (Glucose Gel) 10 g PO Q15M PRN HYPOGLYCEMIC EPISODE 05/03/22 [History Last Taken Unknown] ergocalciferol (vitamin D2) 1,250 mcg (50,000 unit) capsule (Vitamin D2) 1,250 mcg PO SA SUPPLEMENT 05/03/22 [History Last Taken 04/29/22] famotidine 20 mg tablet 20 mg PO BID GERD 05/03/22 [History Last Taken 05/03/22] fluticasone propionate 50 mcg/actuation nasal spray,suspension 2 spray intranasal BID NASAL CONGESTION 05/03/22 [History Last Taken 05/03/22] gabapentin 100 mg capsule 300 mg PO BID NERVE PAIN 05/03/22 [History Last Taken 05/03/22] guaifenesin 600 mg tablet, extended release 12 hr (Mucinex) 600 mg PO BID CONGESTION 05/03/22 [History Last Taken 05/03/22] hydroxyzine HCl 50 mg tablet 50 mg PO Q12H PRN Anxiety 05/03/22 [History Last Taken Unknown] lidocaine 4 % topical patch 1 patch topical DAILY PAIN 05/03/22 [History Last Taken 05/03/22] loperamide 2 mg tablet 2 mg PO Q6H PRN Diarrhea 05/03/22 [History Last Taken Unknown] losartan 50 mg tablet 50 mg PO DAILY BLOOD PRESSURE 05/03/22 [History Last Taken 05/03/22] methyl salicylate 15 %-menthol 10 % topical cream (Muscle Rub) 1 applic topical BID PRN LEFT SHOULDER PAIN 05/03/22 [History Last Taken 05/03/22] montelukast 10 mg tablet 10 mg PO DAILY ALLERGIES 05/03/22 [History Last Taken 05/03/22] omeprazole 20 mg tablet,delayed release 20 mg PO DAILY GERD 05/03/22 [History Last Taken 05/03/22] ondansetron 4 mg oral soluble film 4 mg PO Q8H PRN Nausea 05/03/22 [History Last Taken Unknown] roflumilast 500 mcg tablet (Daliresp) 500 mcg PO DAILY ASTHMA 05/03/22 [History Last Taken 05/03/22] sertraline 100 mg tablet (Zoloft) 100 mg PO QHS DEPRESSION 05/03/22 [History Last Taken 05/02/22] tiotropium bromide 2.5 mcg/actuation mist for inhalation (Spiriva Respimat) 2 puff inhalation QHS ASTHMA 05/03/22 [History Last Taken 05/02/22] cephalexin 500 mg capsule 500 mg PO TID #15 caps 05/05/22 [Rx Last Taken Unknown] dicyclomine 10 mg capsule 10 mg PO 4X/DAY #1 cap 05/05/22 [Rx Last Taken Unknown] menthol 0.44 %-zinc oxide 20.6 % topical ointment (Calmoseptine) 1 applic topical BID #0 grams 05/05/22 [Rx Last Taken Unknown] nystatin 100,000 unit/gram topical powder (Nyamyc) 1 applic topical TID #0 grams05/05/22 [Rx Last Taken Unknown] sucralfate 1 gram tablet 1 g PO TID@0700,1100,1600 #0 tabs 05/05/22 [Rx Last Taken Unknown] Allergy/AdvReac Type Severity Reaction Status Date / Time aspirin Allergy Other Verified 05/14/22 09:43 black pepper [pepper] Allergy Other Verified 05/14/22 09:43 coconut Allergy Other Verified 05/14/22 09:43 codeine Allergy Other Verified 05/14/22 09:43 ibuprofen Allergy Other Verified 05/14/22 09:43 Influenza Virus Vaccines Allergy Other Verified 05/14/22 09:43 Penicillins Allergy Anaphylaxis Verified 05/14/22 09:43 rice Allergy Other Verified 05/14/22 09:43 tetanus and diphtheria Allergy Other Verified 05/14/22 09:43 toxoids Tetanus Vaccines and Toxoid Allergy Other Verified 05/14/22 09:43 Family History Other CAD (coronary artery disease) COPD (chronic obstructive pulmonary disease) Hypertension Social History housing: assisted Smoking Status: Former smoker alcohol intake: never substance use type: does not use ROS ROS Narrative Unable to obtain ROS secondary to mental status Vital Signs Vital Signs Vital Signs: 05/14/22 09:33 05/14/22 09:36 05/14/22 09:44 Temperature 97.2 F L 97.2 F L Temperature Source Temporal Temporal Pulse Rate 95 95 Respiratory Rate 18 20 H Respiratory Effort Normal Non-Labored Respiratory Depth Normal Respiratory Pattern Tachypnea Blood Pressure 93/48 L 93/48 L Blood Pressure Mean 63 63 Pulse Ox 87 92 Oxygen Delivery Method Nasal Cannula Nasal Cannula Oxygen Flow Rate (L/min) 4 4 05/14/22 09:41 05/14/22 09:54 05/14/22 10:36 Temperature 98 F Temperature Source Temporal Pulse Rate 94 61 Respiratory Rate 20 H 18 Respiratory Effort Respiratory Depth Respiratory Pattern Blood Pressure 110/84 H 87/56 L Blood Pressure Mean 92 66 Pulse Ox 92 98 Oxygen Delivery Method Nasal Cannula Nasal Cannula Nasal Cannula Oxygen Flow Rate (L/min) 5 05/14/22 11:53 05/14/22 12:09 Temperature 98 F Temperature Source Temporal Pulse Rate 80 81 Respiratory Rate 18 20 H Respiratory Effort Respiratory Depth Respiratory Pattern Blood Pressure 98/65 99/65 Blood Pressure Mean 76 76 Pulse Ox 96 96 Oxygen Delivery Method Nasal Cannula Nasal Cannula Oxygen Flow Rate (L/min) 4 Weight Weight: 176.6 kg Body Mass Index (BMI) 61.0 Results Lab / Micro Data Result Diagrams: 05/14/22 10:00 05/14/22 10:00 Labs: Laboratory Results - last 24 hr 05/14/22 10:00: WBC 12.7 H, RBC 3.90 L, Hgb 10.3 L, Hct 35.5 L, MCV 91.0, MCH 26.4 L, MCHC 29.0 L, RDW Std Deviation 45.2 H, RDW Coeff of David 13.6, Plt Count 265, MPV 11.8, Immature Gran % (Auto) 1.600 H, Neut % (Auto) 75.5 H, Lymph % (Auto) 16.4 L, Nobles % (Auto) 6.1, Eos % (Auto) 0.2, Baso % (Auto) 0.2, Absolute Neuts (auto) 9.6 H, Absolute Lymphs (auto) 2.09, Nucleated RBC % 0 05/14/22 10:00: PT 12.9, INR 1.0, APTT 27.9 05/14/22 10:00: Sodium 139, Potassium 4.2, Chloride 89 L, Carbon Dioxide 42.0 H, Anion Gap 8, BUN 47 H, Creatinine 2.36 H, Estim Creat Clear Calc 24.65, Est GFR (MDRD) Af Amer 27 L, Est GFR (MDRD) Non-Af 22 L, BUN/Creatinine Ratio 19.9, Glucose 122 H, Calcium 9.6, Total Bilirubin 0.30, AST 8 L, ALT 10 L, Alkaline Phosphatase 82, Total Protein 7.5, Albumin 3.0 L, Globulin 4.5 H, Albumin/Globulin Ratio 0.7 L 05/14/22 10:00: Lactic Acid 1.6 05/14/22 11:13: Urine Color Yellow, Urine Clarity Clear, Urine pH 6.0, Ur Specific [place] 1.015, Urine Protein 30 H, Urine Glucose (UA) 100 H, Urine Ketones Negative, Urine Occult Blood Negative, Urine Nitrite Positive H, Urine Bilirubin Negative, Urine Urobilinogen Normal, Ur Leukocyte Esterase 100 H, Urine RBC 0 SEEN, Urine WBC 10-25 SEEN, Ur Squamous Epith Cells 0 SEEN, Urine Bacteria 2+, Urine Mucus 0 SEEN Radiology Impression Chest X-Ray 05/14/22 09:41 IMPRESSION: 1. Moderate consolidation is present in the right lower lobe and associated with a small pleural effusion. Pulmonary vascular congestion is seen throughout both lungs. There is slight right lung volume loss possibly due to atelectasis or chronic disease. Electronically Signed: Jaron Foreman MD at 11:35 EST , Humerus X-Ray 05/14/22 09:57 IMPRESSION: 1. No visualized fracture of the humerus Electronically Signed: Jaron Foreman MD at 11:36 EST , Assessment & Plan Assessment/Plan (1) UTI (urinary tract infection): (2) Acute kidney injury: (3) Chronic respiratory failure with hypoxia: (4) COPD (chronic obstructive pulmonary disease): (5) MARISOL (obstructive sleep apnea): PLAN: Plan 61-year-old female with a history of MARISOL, COPD with chronic hypoxic respiratory failure on 4 L O2, morbid obesity, recent admission for UTI and hypotension he was discharged to SNF presented for low blood pressure and UTI. #Hypotension secondary to volume depletion -Recently had similar presentation and responded well to fluids -Does have ZONIA but suspect this is also secondary to volume depletion -No other signs of endorgan damage and lactic acid is within normal limits -Do not believe she is septic at this time -Last admission echo obtained and EF was within normal limits -Continue fluids -Hold all medications that may contribute to hypotension #Urinary tract infection -Urine and blood culture sent -Has risk for MDRO so we will put on Zosyn and vancomycin pending cultures -Fluids #Altered mental status -Patient tired, will obtain stat ABG to verify she is not retaining CO2 #Chronic hypoxic respiratory failure on 2 L home O2 secondary to obesity hypoventilation syndrome and COPD -Continue home O2 -ABG ordered -Albuterol as needed -BiPAP nightly and can add as needed #Hypertension -Hypotensive at this time, hold home medications #DVT ppx: Heparin subcu, SCDs Amaya Jacome MD Time spent in the patient's overall evaluation,decision-making process, review of diagnostic data, adjustment of management, discussion with other providers, nursing nursing and ancillary staff involved in patient's care documentation, 60 minutes Charges/Coding Visit Charges Inpatient E&M: 91993 Init Hosp L2 05/14/22 1240 <Electronically signed by Amaya Jacome MD> Cosigner Signature (if applicable): CC: Dr. Amaya Jacome MD; Sepideh Patterson MD~ Signed ADDENDUM by Dr. Amaya Jacome MD on 05/14/22 at 1711 Addendum Reevaluated patient when she reached the floor as she had been concerned about mental status, she was awake alert and sitting up and said she had just been napping. Doing well on home level of O2, did report she had had some increased urination leading up to this but did not voice any other complaints. 05/14/22 1711<Electronically signed by Amaya Jacome MD> Cosigner Signature (if applicable): cc: Dr. Amaya Jacome MD; Sepideh Patterson MD ~* Signed [facility] Work Phone: [phone] 717-435902-05-[address] Ramirez [facility] May 14, 2022 2:02pm Note Date/Time May 14, 2022 9 :46am [facility] Medical Records Department [address] [place] [address] Emergency Department Summary 05/14/22 MR#: [id number] Acct: [id number] Name: HE LAUREANO Rep #:[id number] : 1960 61 From: Berenice Ramirez MD PCP: Sepideh Patterson MD Status:ADM IN Location: [place] [address] HPI History of Present Illness Chief Complaint: Hypotension Detail of Chief Complaint: Hypotension, low pulse ox Informant: patient and SNF Narrative Narrative: Patient sent in from local ECF secondary to low blood pressure and low pulse ox. Patient was admitted to the hospital recently with similar symptoms secondary to UTI and kidney injury. Patient states that she is currently on 4 L nasal cannula at all times. She does report increased thirst and dry mouth, but states that she is urinating frequently. She denies fever or chills. [facility] Medical History Acute kidney failure with tubular necrosis Chronic anemia Chronic pain Chronic respiratory failure with hypoxia COPD (chronic obstructive pulmonary disease) Depression Fibromyalgia GERD (gastroesophageal reflux disease) HFrEF (heart failure with reduced ejection fraction) HTN (hypertension) Hyperlipidemia Morbid obesity Obesity hypoventilation syndrome MARISOL (obstructive sleep apnea) Peptic ulcer disease Personal history of transient ischemic attack (TIA), and cerebral infarction without residual deficits Seasonal allergies TIA (transient ischemic attack) UTI (urinary tract infection) Vitamin D deficiency Home Medications acetaminophen 325 mg tablet 650 mg PO Q4H PRN Pain 05/03/22 [History Last Taken Unknown] acetaminophen 325 mg tablet 650 mg PO TID PAIN 05/03/22 [History Last Taken 05/03/22] albuterol sulfate 90 mcg/actuation aerosol inhaler 2 puff inhalation Q2H PRN Shortness Of Breath 05/03/22 [History Last Taken Unknown] amitriptyline 25 mg tablet 25 mg PO QHS DEPRESSION 05/03/22 [History Last Taken 05/02/22] atorvastatin 20 mg tablet 20 mg PO QHS CHOLESTEROL 05/03/22 [History Last Taken 05/02/22] calcium polycarbophil 625 mg tablet (FiberCon) 625 mg PO DAILY CONSTIPATION 05/03/22 [History Last Taken 05/03/22] cyclobenzaprine 10 mg tablet 10 mg PO TID MUSCLE SPASMS 05/03/22 [History Last Taken 05/03/22] dextrose 40 % oral gel (Glucose Gel) 10 g PO Q15M PRN HYPOGLYCEMIC EPISODE 05/03/22 [History Last Taken Unknown] ergocalciferol (vitamin D2) 1,250 mcg (50,000 unit) capsule (Vitamin D2) 1,250 mcg PO SA SUPPLEMENT 05/03/22 [History Last Taken 04/29/22] famotidine 20 mg tablet 20 mg PO BID GERD 05/03/22 [History Last Taken 05/03/22] fluticasone propionate 50 mcg/actuation nasal spray,suspension 2 spray intranasal BID NASAL CONGESTION 05/03/22 [History Last Taken 05/03/22] gabapentin 100 mg capsule 300 mg PO BID NERVE PAIN 05/03/22 [History Last Taken 05/03/22] guaifenesin 600 mg tablet, extended release 12 hr (Mucinex) 600 mg PO BID CONGESTION 05/03/22 [History Last Taken 05/03/22] hydroxyzine HCl 50 mg tablet 50 mg PO Q12H PRN Anxiety 05/03/22 [History Last Taken Unknown] lidocaine 4 % topical patch 1 patch topical DAILY PAIN 05/03/22 [History Last Taken 05/03/22] loperamide 2 mg tablet 2 mg PO Q6H PRN Diarrhea 05/03/22 [History Last Taken Unknown] losartan 50 mg tablet 50 mg PO DAILY BLOOD PRESSURE 05/03/22 [History Last Taken 05/03/22] methyl salicylate 15 %-menthol 10 % topical cream (Muscle Rub) 1 applic topical BID PRN LEFT SHOULDER PAIN 05/03/22 [History Last Taken 05/03/22] montelukast 10 mg tablet 10 mg PO DAILY ALLERGIES 05/03/22 [History Last Taken 05/03/22] omeprazole 20 mg tablet,delayed release 20 mg PO DAILY GERD 05/03/22 [History Last Taken 05/03/22] ondansetron 4 mg oral soluble film 4 mg PO Q8H PRN Nausea 05/03/22 [History Last Taken Unknown] roflumilast 500 mcg tablet (Daliresp) 500 mcg PO DAILY ASTHMA 05/03/22 [History Last Taken 05/03/22] sertraline 100 mg tablet (Zoloft) 100 mg PO QHS DEPRESSION 05/03/22 [History Last Taken 05/02/22] tiotropium bromide 2.5 mcg/actuation mist for inhalation (Spiriva Respimat) 2 puff inhalation QHS ASTHMA 05/03/22 [History Last Taken 05/02/22] cephalexin 500 mg capsule 500 mg PO TID #15 caps 05/05/22 [Rx Last Taken Unknown] dicyclomine 10 mg capsule 10 mg PO 4X/DAY #1 cap 05/05/22 [Rx Last Taken Unknown] menthol 0.44 %-zinc oxide 20.6 % topical ointment (Calmoseptine) 1 applic topical BID #0 grams 05/05/22 [Rx Last Taken Unknown] nystatin 100,000 unit/gram topical powder (Nyamyc) 1 applic topical TID #0 grams05/05/22 [Rx Last Taken Unknown] sucralfate 1 gram tablet 1 g PO TID@0700,1100,1600 #0 tabs 05/05/22 [Rx Last Taken Unknown] Allergy/AdvReac Type Severity Reaction Status Date / Time aspirin Allergy Other Verified 05/14/22 09:43 black pepper [pepper] Allergy Other Verified 05/14/22 09:43 coconut Allergy Other Verified 05/14/22 09:43 codeine Allergy Other Verified 05/14/22 09:43 ibuprofen Allergy Other Verified 05/14/22 09:43 Influenza Virus Vaccines Allergy Other Verified 05/14/22 09:43 Penicillins Allergy Anaphylaxis Verified 05/14/22 09:43 rice Allergy Other Verified 05/14/22 09:43 tetanus and diphtheria Allergy Other Verified 05/14/22 09:43 toxoids Tetanus Vaccines and Toxoid Allergy Other Verified 05/14/22 09:43 Family History Other CAD (coronary artery disease) COPD (chronic obstructive pulmonary disease) Hypertension Social History housing: assisted Smoking Status: Former smoker alcohol intake: never substance use type: does not use ROS ROS ED Constitutional Constitutional ED: Denies chills or fever(s) Eyes Eyes: Denies change in vision or discharge from eye(s) ENT ENT ED: Denies discharge from eye(s), rhinorrhea or sore throat Cardiovascular Cardiovascular: Denies chest pain or palpitations Respiratory/Chest Respiratory/Chest: Denies cough or dyspnea Gastrointestinal Gastrointestinal: Denies abdominal pain, diarrhea, nausea or vomiting Genitourinary Genitourinary ED: Reports urinary frequency; Denies difficulty urinating or dysuria Musculoskeletal Musculoskeletal: Denies back pain or extremity pain Integumentary Denies Abrasions or rash Neurologic Neurologic: Denies headache(s) or weakness Psychiatric Psychiatric: Denies anxiety or depression Allergic/Immunologic Allergic/Immunologic ED: Denies lip swelling or urticaria EXAM Physical Exam Const Vital Signs: 05/14/22 09:33 05/14/22 09:36 05/14/22 09:44 Temperature 97.2 F L 97.2 F L Temperature Source Temporal Temporal Pulse Rate 95 95 Respiratory Rate 18 20 H Respiratory Effort Normal Non-Labored Respiratory Depth Normal Respiratory Pattern Tachypnea Blood Pressure 93/48 L 93/48 L Blood Pressure Mean 63 63 Pulse Ox 87 92 Oxygen Delivery Method Nasal Cannula Nasal Cannula Oxygen Flow Rate (L/min) 4 4 05/14/22 09:41 05/14/22 09:54 05/14/22 10:36 Temperature 98 F Temperature Source Temporal Pulse Rate 94 61 Respiratory Rate 20 H 18 Respiratory Effort Respiratory Depth Respiratory Pattern Blood Pressure 110/84 H 87/56 L Blood Pressure Mean 92 66 Pulse Ox 92 98 Oxygen Delivery Method Nasal Cannula Nasal Cannula Nasal Cannula Oxygen Flow Rate (L/min) 5 05/14/22 11:53 Temperature Temperature Source Pulse Rate 80 Respiratory Rate 18 Respiratory Effort Respiratory Depth Respiratory Pattern Blood Pressure 98/65 Blood Pressure Mean 76 Pulse Ox 96 Oxygen Delivery Method Nasal Cannula Oxygen Flow Rate (L/min) Positive well nourished and well developed General Appearance ED: well developed HEENT Reports normocephalic and head/scalp atraumatic Eyes PERRL and EOMs intact bilaterally Neck supple Chest Wall inspection of chest normal and palpation of chest normal Resp normal respiratory effort Resp Narrative: Diminished bilateral bases. Cardio regular rate and regular rhythm GI normal to inspection, nondistended, normoactive bowel sounds Palpation: soft Neuro oriented x3 Neuro Narrative: No focal neurologic deficits. Sensorium / Orientation: alert Psych mental status grossly normal Skin no rashes or lesions noted MDM MDM MDM Narrative Medical decision making narrative: Sepsis work-up initiated. Patient's recent hospitalization notes reviewed. Patient ordered 1 L IV fluids. O2 sats are stable on 5 L nasal cannula and she reports wearing 4 L at baseline. Chest x-ray obtained given her mild hypoxia and right humerus x-ray obtained with reported pain and fall 4 months ago. Lab Data Attestation: I reviewed the patient's lab results. Labs: Laboratory Results - last 24 hr 05/14/22 05/14/22 05/14/22 10:00 10:00 10:00 WBC 12.7 H RBC 3.90 L Hgb 10.3 L Hct 35.5 L MCV 91.0 MCH 26.4 L MCHC 29.0 L RDW Std Deviation 45.2 H RDW Coeff of David 13.6 Plt Count 265 MPV 11.8 Immature Gran % (Auto) 1.600 H Neut % (Auto) 75.5 H Lymph % (Auto) 16.4 L Nobles % (Auto) 6.1 Eos % (Auto) 0.2 Baso % (Auto) 0.2 Absolute Neuts (auto) 9.6 H Absolute Lymphs (auto) 2.09 Nucleated RBC % 0 PT 12.9 INR 1.0 APTT 27.9 Sodium 139 Potassium 4.2 Chloride 89 L Carbon Dioxide 42.0 H Anion Gap 8 BUN 47 H Creatinine 2.36 H Estim Creat Clear Calc 24.65 Est GFR (MDRD) Af Amer 27 L Est GFR (MDRD) Non-Af 22 L BUN/Creatinine Ratio 19.9 Glucose 122 H Lactic Acid Calcium 9.6 Total Bilirubin 0.30 AST 8 L ALT 10 L Alkaline Phosphatase 82 Total Protein 7.5 Albumin 3.0 L Globulin 4.5 H Albumin/Globulin Ratio 0.7 L Urine Color Urine Clarity Urine pH Ur Specific [place] Urine Protein Urine Glucose (UA) Urine Ketones Urine Occult Blood Urine Nitrite Urine Bilirubin Urine Urobilinogen Ur Leukocyte Esterase Urine RBC Urine WBC Ur Squamous Epith Cells Urine Bacteria Urine Mucus 05/14/22 05/14/22 10:00 11:13 WBC RBC Hgb Hct MCV MCH MCHC RDW Std Deviation RDW Coeff of David Plt Count MPV Immature Gran % (Auto) Neut % (Auto) Lymph % (Auto) Nobles % (Auto) Eos % (Auto) Baso % (Auto) Absolute Neuts (auto) Absolute Lymphs (auto) Nucleated RBC % PT INR APTT Sodium Potassium Chloride Carbon Dioxide Anion Gap BUN Creatinine Estim Creat Clear Calc Est GFR (MDRD) Af Amer Est GFR (MDRD) Non-Af BUN/Creatinine Ratio Glucose Lactic Acid 1.6 Calcium Total Bilirubin AST ALT Alkaline Phosphatase Total Protein Albumin Globulin Albumin/Globulin Ratio Urine Color Yellow Urine Clarity Clear Urine pH 6.0 Ur Specific [place] 1.015 Urine Protein 30 H Urine Glucose (UA) 100 H Urine Ketones Negative Urine Occult Blood Negative Urine Nitrite Positive H Urine Bilirubin Negative Urine Urobilinogen Normal Ur Leukocyte Esterase 100 H Urine RBC 0 SEEN Urine WBC 10-25 SEEN Ur Squamous Epith Cells 0 SEEN Urine Bacteria 2+ Urine Mucus 0 SEEN Radiography Chest X-Ray - ED: 1 View, Read by ED Physician, Chronic Changes and - (Small pleural effusions) Diagnostic Testing: Clinical Impression(s) from Imaging Studies Chest X-Ray 05/14/22 09:41 IMPRESSION: 1. Moderate consolidation is present in the right lower lobe and associated with a small pleural effusion. Pulmonary vascular congestion is seen throughout both lungs. There is slight right lung volume loss possibly due to atelectasis or chronic disease. Electronically Signed: Jaron Foreman MD at 11:35 EST , Humerus X-Ray 05/14/22 09:57 IMPRESSION: 1. No visualized fracture of the humerus Electronically Signed: Jaron Foreman MD at 11:36 EST , EKG Initial EKG: Attestation: I personally reviewed and interpreted this EKG as follows: Interpretation: Sinus Rhythm (Sinus at 94 with right bundle branch block. No acute ischemia.) Treatment and Re-Evaluation Narrative: CBC reveals mild leukocytosis with a white count of 12.7 and 75% neutrophils. Hemoglobin is 10.3. Coags are unremarkable. Chemistry studies reveal a BUN of 47 and a creatinine of 2.36. When patient was in the hospital last her creatinine had gone from 2.0 down to 0.87. Liver function tests are unremarkable. Lactic acid is 1.6. Urinalysis was obtained via catheter insertion. Urine is positive for nitrites with 10-25 white cells and 2+ bacteria. I did review her most recent urine culture and she was sensitive to Rocephin. She is given a dose of Rocephin here. Portable chest x-ray per my interpretation was chronic changes with congestion and small bilateral pleural effusions. Right humerus x-ray per my interpretation reveals no fracture. Radiology interpretations are reviewed. At this time patient will be discussed with hospitalist for admission given her ongoing UTI and acute kidney injury. Blood pressure responded well to IV fluids, but most recent readings have dropped again to the 80s over 50s. Her map remains greater than 65. Nursing staff is obtaining manual blood pressure at this time and will give another fluid bolus as needed. Discharge Plan Dx/Rx/DC Orders Clinical Impression: UTI (urinary tract infection), Acute kidney injury Disposition Disposition: Acute Care Hospital [facility] What to do if you have Problems For any increased pain, shortness of breath, bleeding, nausea or vomiting, chest pain, or any unexpected problems, contact your Primary Care Provider. Call [facility] ([phone]) or report to the closest Emergency Room. Call 911 if necessary. 05/14/22 1402 <Electronically signed by Berenice Ramirez MD> Cosigner Signature (if applicable): CC: Sepideh Patterson MD ~ Signed [facility] Work Phone: [phone]) 470-709901-27-[address] Morillo [facility] May 05, 2022 5:44pm Note Date/Time May 05, 2022 5 :32pm [facility] Medical Records Department [address] [place] [address] Transfer to [facility] MR#: [id number] Acct: [id number] Name: HE LAUREANO Rep #:[id number] : 1960 61 From: Alejandro Morillo DO PCP: Sepideh Patterson MD Status:ADM IN Certification of patient admission REQUIRED AT TIME OF ADMISSION. I CERTIFY THAT POST-HOSPITAL ECF SERVICES ARE REQUIRED TO BE GIVEN ON AN IN-PATIENT BASIS BECAUSE OF THE ABOVE NAMED PATIENT'S NEED FOR RESIDENTIAL CARE ON A CONTINUING BASIS FOR THE CONDITION(S) FOR WHICH HE/SHE WAS RECEIVING IN-PATIENT HOSPITAL SERVICES PRIOR TO HIS/HER TRANSFER TO THE [facility]. 05/05/22 6184<Electronically signed by Alejandro Morillo DO> Diet Diet Order/Speech Therapy: 05/03/22 13:55 Diet: Cardiac - Heart Healthy Food consistency:: Regular Liquid Consistency:: Regular/Thin Is pt able to select menu?: Yes Routine Orders/Code Status O2 Liters per Minute: 4 O2 Frequency: Continuous Routine Lab Work: BMP (in two days) Code Status: Full Code Wound(s) LT FOOT 4TH TOE: Wound Type: Abrasion right abd fold: Wound Type: open slit Therapies Weight Bearing: Resume previous activity Physical Therapy: Eval and Treat Occupational Therapy: Eval and Treat Problem/Diagnosis (1) Hypoxia: Status: Acute Code(s): R09.02 - Hypoxemia Comment: Acute on chronic hypoxia (2) ZONIA (acute kidney injury): Status: Acute Code(s): N17.9 - Acute kidney failure, unspecified (3) Hyperkalemia: Status: Acute Code(s): E87.5 - Hyperkalemia (4) Dehydration: Status: Acute Code(s): E86.0 - Dehydration (5) Diarrhea: Status: Acute Code(s): R19.7 - Diarrhea, unspecified (6) UTI (urinary tract infection): Status: Acute Code(s): N39.0 - Urinary tract infection, site not specified Comment: E. coli (7) Acute and chronic respiratory failure with hypoxia: Status: Acute Code(s): J96.21 - Acute and chronic respiratory failure with hypoxia Allergies/Procedures Done in Hospital Allergies aspirin Allergy (Verified 05/03/22 10:11) Other black pepper [pepper] Allergy (Verified 05/03/22 10:11) Other coconut Allergy (Verified 05/03/22 10:11) Other codeine Allergy (Verified 05/03/22 10:11) Other ibuprofen Allergy (Verified 05/03/22 10:11) Other Influenza Virus Vaccines Allergy (Verified 05/03/22 10:11) Other rice Allergy (Verified 05/03/22 10:11) Other tetanus and diphtheria toxoids Allergy (Verified 05/03/22 10:11) Other Tetanus Vaccines and Toxoid Allergy (Verified 05/03/22 10:11) Other Procedures: None Type of Care/Length of Stay Estimated LOS: Convalescent Care Less Than 30 days Type of Care Needed: Skilled Rehab Potential: Good Prognosis: Good Additional Orders/Day of Discharge H&P will serve as current which was dated: 05/03/22 Day of Discharge: 05/05/22 Dietary and Speech Recommendations Dietitian Recommendations/Changes: Continue Cardiac diet to manage medical conditions. Discharge Plan Admission Admit Date/Time: 05/03/22 12:52 Primary Reason for Your Visit: Hypoxia, hypotension, acute kidney injury Attending Provider: Alejandro Morillo Primary Care Provider: Sepideh Patterson Consulting Providers: Marina Armas Discharge Orders/Prescriptions Prescriptions: New sucralfate 1 gram Tablet 1 g PO TID@0700,1100,1600 Qty: 0 0RF nystatin [Nyamyc] 100,000 unit/gram Powder 1 applic topical TID Qty: 0 0RF Protocol: *Topical Application Instructions APPLICATION INSTRUCTIONS: affected areas menthol-zinc oxide [Calmoseptine] 0.44-20.6 % Ointment 1 applic topical BID Qty: 0 0RF Protocol: *Topical Application Instructions APPLICATION INSTRUCTIONS: affected areas cephalexin 500 mg capsule 500 mg PO TID Qty: 15 0RF Rx Instructions: start on 05/06/22 Continued losartan 50 mg Tablet 50 mg PO DAILY cyclobenzaprine 10 mg Tablet 10 mg PO TID acetaminophen 325 mg Tablet 650 mg PO Q4H PRN (Reason: Pain) acetaminophen 325 mg Tablet 650 mg PO TID atorvastatin 20 mg Tablet 20 mg PO QHS lidocaine 4 % Adhesive Patch,Medicated 1 patch TOPICAL DAILY dextrose [Glucose Gel] 40 % Gel 10 g PO Q15M PRN (Reason: HYPOGLYCEMIC EPISODE) sertraline [Zoloft] 100 mg Tablet 100 mg PO QHS loperamide 2 mg Tablet 2 mg PO Q6H PRN (Reason: Diarrhea) hydroxyzine HCl 50 mg Tablet 50 mg PO Q12H PRN (Reason: Anxiety) famotidine 20 mg Tablet 20 mg PO BID amitriptyline 25 mg Tablet 25 mg PO QHS calcium polycarbophil [FiberCon] 625 mg Tablet 625 mg PO DAILY montelukast 10 mg Tablet 10 mg PO DAILY gabapentin 100 mg Capsule 300 mg PO BID ergocalciferol (vitamin D2) [Vitamin D2] 1,250 mcg (50,000 unit) Capsule 1,250 mcg PO SA albuterol sulfate 90 mcg/actuation Hfa Aerosol Inhaler 2 puff INHALATION Q2H PRN (Reason: Shortness Of Breath) fluticasone propionate 50 mcg/actuation [place],Suspension 2 spray INTRANASAL BID Muscle Rub 15-10 % Cream 1 applic TOPICAL BID PRN (Reason: LEFT SHOULDER PAIN) omeprazole 20 mg Tablet,Delayed Release (Dr/Ec) 20 mg PO DAILY ondansetron 4 mg Film 4 mg PO Q8H PRN (Reason: Nausea) roflumilast [Daliresp] 500 mcg Tablet 500 mcg PO DAILY Spiriva Respimat 2.5 mcg/actuation Mist 2 puff INHALATION QHS guaifenesin [Mucinex] 600 mg Tablet Extended Release 12hr 600 mg PO BID Changed dicyclomine 10 mg Capsule 10 mg PO 4X/DAY Qty: 1 0RF Discontinued furosemide 40 mg Tablet 40 mg PO BID sucralfate [Carafate] 100 mg/mL Suspension 10 ml PO TID tramadol 50 mg Tablet 50 mg PO Q8H PRN (Reason: MUSCLE WEAKNESS) benzonatate [Tessalon Perles] 100 mg Capsule 100 mg PO Q8H PRN (Reason: Cough) loratadine 10 mg Tablet 10 mg PO DAILY spironolactone 50 mg Tablet 50 mg PO DAILY Referrals / Follow Up: Sepideh Patterson MD [Primary Care Provider] - Disposition Disposition (needs filled in before D/C Order can be placed): Intermediate Facility 05/05/22 5937 <Electronically signed by Alejandro Morillo DO> Cosigner Signature (if applicable): CC: Dr. Marina Armas DO; Sepideh Patterson MD ~ [facility] Work Phone: [phone]) 850-622401-26-[address] Armas [facility] May 04, 2022 4:07pm Note Date/Time May 04, 2022 3 :54pm [facility] Medical Records Department [address] [place] [address] Progress Note - Hospitalist 05/04/22 1547 MR#: [id number] Acct: [id number] Name: HE LAUREANO Rep #:[id number] : 1960 61 From: Marina Armas DO PCP: Sepideh Patterson MD Status:ADM IN [place] [facility] [place] Subjective Subjective Patient states she feels "like shit today." I asked her if she felt better yesterday and she said she felt much better than yesterday and states she alwaysfeels like shit." She states she is close to back to her baseline. Her dysuria has improved. She does confirm she wears 4 L of oxygen at baseline. Itsounds like [facility] only had her on 3 L. Objective Data Objective Data Vital Signs: Vital Signs Temp Pulse Resp BP Pulse Ox O2 Del Method O2 Flow Rate 97.9 F 86 20 H 110/63 96 Nasal Cannula 4 05/04/22 12:55 05/04/22 12:55 05/04/22 12:55 05/04/22 12:55 05/04/22 12:55 05/04/22 12:55 05/04/22 12:55 Oxygen Flow Rate (L/min) 4 Oxygen Delivery Method Nasal Cannula Weight: 178.1 kg Body Mass Index (BMI) 61.4 Intake & Output: Intake and Output for Last 24 Hours 05/02/22 05/03/22 05/04/22 23:59 23:59 23:59 Intake Total 2703.33 / 2783.33 1713.33 / 1713.33 Output Total 450 / 925 2175 / 2175 Balance 2253.33 / 1858.33 -461.67 / -461.67 Lab / Micro Data Result Diagrams: 05/04/22 06:20 05/04/22 06:20 Labs: Laboratory Results - last 24 hr 05/04/22 06:20: WBC 9.1, RBC 3.57 L, Hgb 9.5 L, Hct 32.1 L, MCV 89.9, MCH 26.6 L, MCHC 29.6 L, RDW Std Deviation 44.3 H, RDW Coeff of David 13.5, Plt Count 228, MPV 11.0, Immature Gran % (Auto) 0.800, Neut % (Auto) 74.8 H, Lymph % (Auto) 16.2 L, Nobles % (Auto) 6.5, Eos % (Auto) 1.5, Baso % (Auto) 0.2, Absolute Neuts (auto) 6.8, Absolute Lymphs (auto) 1.48, Nucleated RBC % 0 05/04/22 06:20: Sodium 138, Potassium 4.9, Chloride 99, Carbon Dioxide 35.0 H, Anion Gap 4 L, BUN 42 H, Creatinine 1.10 H, Estim Creat Clear Calc 52.89, Est GFR (MDRD) Af Amer 65, Est GFR (MDRD) Non-Af 54 L, BUN/Creatinine Ratio 38.2 H, Glucose 125 H, Calcium 9.5, Phosphorus 3.3, Magnesium 1.7, Total Bilirubin 0.40,AST 13 L, ALT 11 L, Alkaline Phosphatase 78, Total Protein 6.9, Albumin 2.7 L, Globulin 4.2, Albumin/Globulin Ratio 0.6 L, TSH 0.35 L Micro: Microbiology 05/03/22 11:10 Urine, Catheterized Urine Culture - Preliminary Presumptive E. coli 05/03/22 13:12 Mucosa - Nasopharyngeal Respiratory Panel (PCR) - Final 05/03/22 11:10 Nasal Secretion SARS-CoV-2 & FLU Antigen (Rapid) - Final Rhythm Strip Rhythm Strip: Sinus Rhythm Rate: 93 Ectopy: None Physical Exam Const alert and no apparent distress Constitutional Narrative: Super morbidly obese white female lying in bed, mentating well, appears comfortable, nontoxic, upon my arrival was sleeping but awakens easily HEENT normocephalic, head/scalp atraumatic, hearing grossly normal bilaterally and moist oral mucous membranes HEENT Narrative: Mallampati 4, edentulous, no thrush Resp normal respiratory effort, no retractions, no use of accessory muscles and clearto auscultation bilaterally Resp Narrative: Extremely distant, markedly diminished diffusely, appears comfortable Auscultation: Negative for crackles, rhonchi or wheezes Cardio regular rate, regular rhythm, S1 normal heart sound, S2 normal heart sound, no murmurs, no rub, no gallops and no clicks GI normal to inspection, nondistended, normoactive bowel sounds, soft to palpation and non-tender GI Narrative: Extremely protuberant abdomen Extremity no clubbing, cyanosis or edema Extremity Narrative: 2+ pedal pulses, cap refill is good Neuro oriented x3 Neuro Narrative: Increased movement right upper extremity due to pain in the shoulder and right lower extremity due to pain in the leg, reflexes are 2+ upper and lower extremities Speech: speech normal Psych affect normal Assessment & Plan Assessment/Plan (1) Hypoxia: (2) ZONIA (acute kidney injury): (3) Hyperkalemia: (4) Dehydration: (5) Diarrhea: (6) UTI (urinary tract infection): PLAN: Plan Acute hypoxia on chronic hypoxic and hypercapnic respiratory failure -Patient on 4 L of nasal cannula at baseline -We will need to clearly identify supplemental oxygen requirements at baseline -Patient has been down to 4 L which is her baseline -Continue aerosols -Continue home inhalers -No current need for steroids Acute urinary tract infection -UA is consistent with infection -Patient with dysuria on presentation -Continue Zosyn until we can identify resistance patterns with patient being in long-term facility and recent hospitalization -Urine culture preliminary is consistent with E. coli -Sensitivities are pending ZONIA due to severe dehydration -Serum creatinine is markedly elevated beyond baseline of 0.8-1 -serum creatinine was 2.04 on admission and now down to 1.1 with aggressive hydration -Patient with some resultant hypotension related to her volume depletion but seems to resolving with fluid resuscitation -Continue IV fluids for now -Restart home famotidine -Hold home Lasix -Hold home losartan -Hold home Aldactone -Repeat BMP in a.m. Hypotension -Resolved -Seems to be consistent with hypovolemia Acute on chronic diarrhea -Patient with issues of chronic diarrhea -No diarrhea since arrival -Continue C. difficile and enteric panel Hyperkalemia -Resolved GERD/peptic ulcer disease -Continue home Carafate -Continue home PPI -Restart famotidine Hypertension -Hold home Aldactone -Hold home losartan -Hold home Lasix -I be able to slowly reintroduce antihypertensives tomorrow depending on renal function and blood pressure COPD/MARISOL (suspected)/OHS -Continue chronic supplemental oxygen -Continue nebulizers -Hold home Daliresp -Continue home Spiriva -Continue Mucinex HFrEF -This is documented in the history however I have no subjective proof of this aswe have no echo in our system and patient has not ever been here -Aldactone and losartan on hold -Patient is not on a beta-rome which does somewhat make me question the validity of this diagnosis -Lasix on hold -Monitor clinically Chronic pain related to falls and debility -Continue home gabapentin dose should be okay with renal dysfunction -Continue as needed Flexeril -Continue home amitriptyline -Continue home Ultram -Continue home lidocaine patch Depression/anxiety -Continue home Zoloft Debility -PT/OT following -I am unclear how much function she has a baseline Super morbid obesity -BMI 61.5 -Recommend weight loss -Complicates treatment, prognosis, outcomes CODE STATUS -Full code as per discussion on admission Charges/Coding Visit Charges Inpatient E&M: 87718 Subs Hosp L2 05/04/22 1609 <Electronically signed by Marina Armas DO> Cosigner Signature (if applicable): CC: ~ Signed [facility] Work Phone: [phone] 111-426901-25-2023 History and physical note Author Dr. Armas [facility] May 03, 2022 5:30pm Note Date/Time May 03, 2022 1 :13pm [facility] Medical Records Department [address] [place] [id number] H&P Exam - Hospitalist 05/03/22 1306 MR#: [id number] Acct: [id number] Name: HE LAUREANO Rep #:[id number] : 1960 61 From: Marina Armas DO PCP: Sepideh Patterson MD Status:ADM [place] [place] [place] - General General Date of Admission: 05/03/22 Date of Service: 05/03/22 Chief Complaint: Worsening hypoxia/hypotension HPI Narrative HE LAUREANO, is a 61 F who presented to the emergency department at [facility] on 05/03/2022 for worsening hypoxemia from [facility].. The patient evidently had an extended hospital course at a hospital in [place], [place] as she lives in [facility] but was discharged to [facility] as her daughter lives in [facility]. She has been there for a few weeks now and evidently has been feeling poorly for about 2to 3 days now. She did feel that she probably was getting urinary tract infection after I talk to her. She has had dysuria some intermittent nausea with emesis yesterday and intermittent diarrhea that is more voluminous than her baseline. She states she has chronic right-sided weakness in her arm related toa fall that she had a year ago and has ongoing pain in her shoulder. She statesthey feel that she had a shoulder injury however she is not a surgical candidate. She also has right lower extremity weakness from the fall as well asshe had multiple fractures. She indicates that these issues are chronic. She has some hypoxemia at the facility. Patient states she is on 3 to 4 L of oxygenat baseline. At [facility] she was 88% on 3 L and had to titrate her upto 4 L and even further up initially as her oxygenation did not improve with a 4L bump. Her blood pressure was also noted to be low at 90/60 at the facility. She was sent to emergency department for further evaluation. She has some chronic pain which has been problematic for her. She denies any new cough or shortness of breath. She has no wheezing. She states she does not feel thirstyand has no abdominal pain. Patient does have an extremely complex medical history. Vital signs at presentation demonstrated a temperature of 96.3, blood pressure 84/60, respiratory rate 16, oxygen saturation was 88% on 3 L nasal cannula with improvement to 93% on 4 L. She was given IV fluids and her blood pressure was responsive and at the time of my evaluation she was 133/92. Her CBC shows a chronic anemia with no leukocytosis or thrombocytopenia. She has a very mild left shift with a 70.4% neutrophilia. Coags were normal. Her chemistry panel was markedly abnormal with an elevated potassium at 5.2, BUN of 58, serum creatinine of 2.04. Liver enzymes are normal. Lactic acid was 1.1. She is a chronically elevated serum bicarb in the upper 30-40 range. Her baseline serum creatinine appears to run anywhere from 0.8-1. Chest x-ray shows no acute pulmonary pathology. Her UA is consistent with infection demonstrating nitrites, leuk esterase, white cells, and 2+ bacteria. Her EKG was unremarkable other than low voltage which is consistent with her body habitus. The emergency department she was given 2 L IV bolus and started on ceftriaxone. Her oxygen was increased to 4 L. [facility] Medical History Chronic anemia Chronic pain Chronic respiratory failure with hypoxia COPD (chronic obstructive pulmonary disease) Depression GERD (gastroesophageal reflux disease) HFrEF (heart failure with reduced ejection fraction) HTN (hypertension) Hyperlipidemia Morbid obesity Obesity hypoventilation syndrome MARISOL (obstructive sleep apnea) Peptic ulcer disease Seasonal allergies TIA (transient ischemic attack) Vitamin D deficiency Home Medications acetaminophen 325 mg tablet 650 mg PO Q4H PRN Pain 05/03/22 [History Last Taken Unknown] acetaminophen 325 mg tablet 650 mg PO TID PAIN 05/03/22 [History Last Taken 05/03/22] albuterol sulfate 90 mcg/actuation aerosol inhaler 2 puff inhalation Q2H PRN Shortness Of Breath 05/03/22 [History Last Taken Unknown] amitriptyline 25 mg tablet 25 mg PO QHS DEPRESSION 05/03/22 [History Last Taken 05/02/22] atorvastatin 20 mg tablet 20 mg PO QHS CHOLESTEROL 05/03/22 [History Last Taken 05/02/22] benzonatate 100 mg capsule 100 mg PO Q8H PRN Cough 05/03/22 [History Last Taken Unknown] calcium polycarbophil 625 mg tablet (FiberCon) 625 mg PO DAILY CONSTIPATION 05/03/22 [History Last Taken 05/03/22] cyclobenzaprine 10 mg tablet 10 mg PO TID MUSCLE SPASMS 05/03/22 [History Last Taken 05/03/22] dextrose 40 % oral gel (Glucose Gel) 10 g PO Q15M PRN HYPOGLYCEMIC EPISODE 05/03/22 [History Last Taken Unknown] dicyclomine 10 mg capsule 10 mg PO DAILY PRN Diarrhea 05/03/22 [History Last Taken Unknown] ergocalciferol (vitamin D2) 1,250 mcg (50,000 unit) capsule (Vitamin D2) 1,250 mcg PO SA SUPPLEMENT 05/03/22 [History Last Taken 04/29/22] famotidine 20 mg tablet 20 mg PO BID GERD 05/03/22 [History Last Taken 05/03/22] fluticasone propionate 50 mcg/actuation nasal spray,suspension 2 spray intranasal BID NASAL CONGESTION 05/03/22 [History Last Taken 05/03/22] furosemide 40 mg tablet 40 mg PO BID FLUID 05/03/22 [History Last Taken 05/03/22] gabapentin 100 mg capsule 300 mg PO BID NERVE PAIN 05/03/22 [History Last Taken 05/03/22] guaifenesin 600 mg tablet, extended release 12 hr (Mucinex) 600 mg PO BID CONGESTION 05/03/22 [History Last Taken 05/03/22] hydroxyzine HCl 50 mg tablet 50 mg PO Q12H PRN Anxiety 05/03/22 [History Last Taken Unknown] lidocaine 4 % topical patch 1 patch topical DAILY PAIN 05/03/22 [History Last Taken 05/03/22] loperamide 2 mg tablet 2 mg PO Q6H PRN Diarrhea 05/03/22 [History Last Taken Unknown] loratadine 10 mg tablet 10 mg PO DAILY SEASONAL ALLERGIES 05/03/22 [History Last Taken 05/03/22] losartan 50 mg tablet 50 mg PO DAILY BLOOD PRESSURE 05/03/22 [History Last Taken 05/03/22] methyl salicylate 15 %-menthol 10 % topical cream (Muscle Rub) 1 applic topical BID PRN LEFT SHOULDER PAIN 05/03/22 [History Last Taken 05/03/22] montelukast 10 mg tablet 10 mg PO DAILY ALLERGIES 05/03/22 [History Last Taken 05/03/22] omeprazole 20 mg tablet,delayed release 20 mg PO DAILY GERD 05/03/22 [History Last Taken 05/03/22] ondansetron 4 mg oral soluble film 4 mg PO Q8H PRN Nausea 05/03/22 [History Last Taken Unknown] roflumilast 500 mcg tablet (Daliresp) 500 mcg PO DAILY ASTHMA 05/03/22 [History Last Taken 05/03/22] sertraline 100 mg tablet (Zoloft) 100 mg PO QHS DEPRESSION 05/03/22 [History Last Taken 05/02/22] spironolactone 50 mg tablet 50 mg PO DAILY BLOOD PRESSURE 05/03/22 [History Last Taken 05/03/22] sucralfate 100 mg/mL oral suspension (Carafate) 10 ml PO TID ULCER 05/03/22 [History Last Taken 05/03/22] tiotropium bromide 2.5 mcg/actuation mist for inhalation (Spiriva Respimat) 2 puff inhalation QHS ASTHMA 05/03/22 [History Last Taken 05/02/22] tramadol 50 mg tablet 50 mg PO Q8H PRN MUSCLE WEAKNESS 05/03/22 [History Last Taken Unknown] Allergy/AdvReac Type Severity Reaction Status Date / Time aspirin Allergy Other Verified 05/03/22 10:11 black pepper [pepper] Allergy Other Verified 05/03/22 10:11 coconut Allergy Other Verified 05/03/22 10:11 codeine Allergy Other Verified 05/03/22 10:11 ibuprofen Allergy Other Verified 05/03/22 10:11 Influenza Virus Vaccines Allergy Other Verified 05/03/22 10:11 rice Allergy Other Verified 05/03/22 10:11 tetanus and diphtheria Allergy Other Verified 05/03/22 10:11 toxoids Tetanus Vaccines and Toxoid Allergy Other Verified 05/03/22 10:11 Family History Other CAD (coronary artery disease) COPD (chronic obstructive pulmonary disease) Hypertension Surgical History unable to obtain unable to obtain (Patient uncertain) Social History housing: assisted Smoking Status: Former smoker alcohol intake: never substance use type: does not use ROS Constitutional Constitutional: Reports fatigue, malaise and weakness; Denies anorexia, change in weight, chills, fever(s), night sweats or other Eyes Eyes: Denies blurry vision, change in eye color, change in vision, discharge from eye(s), double vision, erythema, eye pain, loss of vision or other ENT HEENT: Denies abnormal hearing, dysphagia, ear pain, epistaxis, headache(s), hearing loss, nasal congestion, nasal discharge, post nasal drip, sinus pressure, sore throat or other Cardiovascular Cardiovascular: Denies chest pain, claudication, dyspnea on exertion, edema, lightheadedness, orthopnea, palpitations, paroxysmal nocturnal dyspnea, rapid heart rate, syncope or other Respiratory/Chest Respiratory/Chest: Denies cough, dyspnea, excessive phlegm production, hemoptysis, productive cough, shortness of breath at rest, shortness of breath with exertion, wheezing or other Gastrointestinal Gastrointestinal: Reports diarrhea, nausea and vomiting; Denies abdominal pain, coffee ground emesis, constipation, dyspepsia, hematemesis, hematochezia, loose stools, melena or other Genitourinary Genitourinary: Reports burning urination, dysuria, urinary frequency and urinary incontinence; Denies difficulty urinating, hematuria, nocturia, urinary hesitancy, urinary urgency or other Musculoskeletal Musculoskeletal: Reports arthralgias, joint pain, neck pain and other Details: Right shoulder pain, right leg pain-chronic Neurologic Neurologic: Reports numbness, paresthesias, tingling and other Details: Right upper extremity weakness from previous orthopedic injury Psychiatric Psychiatric: Reports anxiety and depression; Denies homicidal ideation, suicidal ideation or other Endocrine Endocrinology: Denies change in body appearance, cold intolerance, excessive sweating, heat intolerance, polydipsia, polyuria or other Hematologic/Lymphatic Hematologic/Lymphatic: Denies anemia, easy bleeding, easy bruising, lymphadenopathy or other Allergic/Immunologic Allergic/Immunologic: Denies rhinitis, hives, eczemia, asthma or other Vital Signs Vital Signs Vital Signs: 05/03/22 10:11 05/03/22 10:26 05/03/22 11:42 Temperature 96.3 F L Temperature Source Temporal Pulse Rate 90 92 Respiratory Rate 16 16 Blood Pressure 84/60 L Blood Pressure Mean 68 Pulse Ox 88 93 Oxygen Delivery Method Nasal Cannula Nasal Cannula Nasal Cannula Oxygen Flow Rate (L/min) 3 4 4 05/03/22 11:43 05/03/22 12:30 05/03/22 12:34 Temperature 96.2 F L Temperature Source Temporal Pulse Rate 87 83 83 Respiratory Rate 17 16 Blood Pressure 82/53 L 81/44 L 133/92 H Blood Pressure Mean 62 56 105 Pulse Ox 94 94 Oxygen Delivery Method Nasal Cannula Nasal Cannula Oxygen Flow Rate (L/min) 4 4 05/03/22 13:01 Temperature 96.4 F L Temperature Source Temporal Pulse Rate 83 Respiratory Rate 16 Blood Pressure 133/92 H Blood Pressure Mean 105 Pulse Ox 94 Oxygen Delivery Method Nasal Cannula Oxygen Flow Rate (L/min) 4 Weight Weight: 178.1 kg Body Mass Index (BMI) 61.4 Physical Exam Const alert and no apparent distress Constitutional Narrative: Super morbidly obese white female lying in bed, mentating well, appears comfortable nontoxic HEENT normocephalic, head/scalp atraumatic and hearing grossly normal bilaterally HEENT Narrative: Edentulous, Mallampati 4, no thrush, mucous membranes are dry Eyes PERRL, EOMs intact bilaterally and conjunctivae normal Eyes Narrative: No scleral icterus Neck no lymphadenopathy and supple Neck Narrative: Neck is extremely short and thick, trachea midline, yeast noted in folds around neck Resp normal respiratory effort, no retractions, no use of accessory muscles and clear to auscultation bilaterally Resp Narrative: Extremely distant, markedly diminished diffusely, no tachypnea or conversational dyspnea Auscultation: Negative for crackles, rhonchi or wheezes Cardio regular rate, regular rhythm, S1 normal heart sound, S2 normal heart sound, no murmurs, no rub, no gallops and no clicks GI normal to inspection, nondistended, normoactive bowel sounds, soft to palpation and non-tender GI Narrative: Extremely protuberant abdomen, intertrigo and ascites noted Extremity no clubbing, cyanosis or edema Skin No no rashes or lesions noted, no wounds, skin turgor normal, no jaundice, no petechiae and no mottling Skin Narrative: No wound is noted how of her exam is limited due to body habitus and ability to move, patient with multiple areas of cutaneous candidiasis Neuro oriented x3 and CN's II-XII intact bilaterally Neuro Narrative: Increased movement right upper extremity due to pain in the shoulder and right lower extremity due to pain in the leg, reflexes are 2+ upper and lower extremities Speech: speech normal Psych affect normal Psych Narrative: Appropriately interactive Results Lab / Micro Data Attestation: I reviewed the patient's lab results. Result Diagrams: 05/03/22 10:40 05/03/22 10:40 Labs: Laboratory Results - last 24 hr 05/03/22 10:30: Lactic Acid 1.1 05/03/22 10:40: WBC 10.7, RBC 4.04 L, Hgb 10.7 L, Hct 36.4 L, MCV 90.1, MCH 26.5 L, MCHC 29.4 L, RDW Std Deviation 43.8, RDW Coeff of David 13.3, Plt Count 262, MPV 11.4, Immature Gran % (Auto) 1.000 H, Neut % (Auto) 70.4 H, Lymph % (Auto) 20.2, Nobles % (Auto) 7.1, Eos % (Auto) 1.0, Baso % (Auto) 0.3, Absolute Neuts (auto) 7.5, Absolute Lymphs (auto) 2.16, Nucleated RBC % 0 05/03/22 10:40: PT 12.7, INR 1.0, APTT 28.3 05/03/22 10:40: Sodium 137, Potassium 5.2 H, Chloride 93 L, Carbon Dioxide 40.0 H, Anion Gap 4 L, BUN 58 H, Creatinine 2.04 H, Estim Creat Clear Calc 28.52, Est GFR (MDRD) Af Amer 32 L, Est GFR (MDRD) Non-Af 26 L, BUN/Creatinine Ratio 28.4 H, Glucose 126 H, Calcium 10.1, Total Bilirubin 0.40, AST 7 L, ALT 10 L, Alkaline Phosphatase 89, Total Protein 7.7, Albumin 3.2, Globulin 4.5 H, Albumin/Globulin Ratio 0.7 L 05/03/22 10:40: B-Natriuretic Peptide 5.1 05/03/22 11:10: Urine Color Yellow, Urine Clarity Sl. Cloudy, Urine pH 6.5, Ur Specific [place] 1.020, Urine Protein 15 H, Urine Glucose (UA) Normal, Urine Ketones Negative, Urine Occult Blood Negative, Urine Nitrite Positive H, Urine Bilirubin Negative, Urine Urobilinogen Normal, Ur Leukocyte Esterase 100 H, Urine RBC 0 SEEN, Urine WBC 10-25 SEEN, Ur Squamous Epith Cells 0-5 SEEN, Urine Bacteria 2+, Urine Mucus 0 SEEN Micro: Microbiology 05/03/22 11:10 Nasal Secretion SARS-CoV-2 & FLU Antigen (Rapid) - Final Rhythm Strip Rhythm Strip: Sinus Rhythm Rate: 93 Ectopy: None Radiology Impression Chest X-Ray 05/03/22 10:34 IMPRESSION: Lungs are clear. Mild cardiomegaly. Electronically Signed: David Conner MD at 11:41 EST , Assessment & Plan Assessment/Plan (1) Hypoxia: (2) ZONIA (acute kidney injury): (3) Hyperkalemia: (4) Dehydration: (5) Diarrhea: (6) UTI (urinary tract infection): PLAN: Plan Acute hypoxia on chronic hypoxic and hypercapnic respiratory failure -Patient 3 L of nasal cannula at baseline however upon my discussion with her she states 4 -We will need to clearly identify supplemental oxygen requirements at baseline -Sats are currently stable on 4 L and patient not having any subjective shortness of breath -Continue aerosols -Continue home inhalers -No current need for steroids Acute urinary tract infection -UA is consistent with infection -We will utilize Zosyn since patient is in a facility at baseline and has just been hospitalized not that long ago -This would place her at high risk for resistant organisms -Urine culture pending ZONIA due to severe dehydration -Serum creatinine is markedly elevated beyond baseline of 0.8-1 -Current serum creatinine is 2.04 -Patient with some resultant hypotension related to her volume depletion but seems to resolving with fluid resuscitation -Hold home famotidine -Hold home Lasix -Hold home losartan -Hold home Aldactone -Repeat BMP in a.m. if no improvement in renal function will consider further work-up at that time Hypotension -Seems to be resolving with IV fluid replacement -Lactic acid is normal at 1.1 indicating adequate perfusion -Suspect peripheral blood pressures are going to be difficult to obtain secondary to body habitus and central pressures likely higher than peripheral pressures are measuring Acute on chronic diarrhea -Patient with issues of chronic diarrhea -Check C. difficile -Check enteric panel -Hold home antidiarrheal medications until we can assure there is no infectious etiology causing this at this time Hyperkalemia -Mild at 5.2 -Hold home Aldactone and losartan -Likely related to acute kidney injury -Repeat lab in a.m. -No EKG changes related to this GERD/peptic ulcer disease -Continue home Carafate -Continue home PPI -Hold famotidine with renal disease and restart once kidney function improves Hypertension -Hold home Aldactone -Hold home losartan -Hold home Lasix COPD/MARISOL (suspected)/OHS -Continue chronic supplemental oxygen -Continue nebulizers -Hold home Daliresp -Continue home Spiriva -Continue Mucinex HFrEF -This is documented in the history however I have no subjective proof of this as we have no echo in our system and patient has not ever been here -Aldactone and losartan on hold -Patient is not on a beta-rome which does somewhat make me question the validity of this diagnosis -Lasix on hold -Monitor clinically Chronic pain related to falls and debility -Continue home gabapentin dose should be okay with renal dysfunction -Continue as needed Flexeril -Continue home amitriptyline -Continue home Ultram -Continue home lidocaine patch Depression/anxiety -Continue home Zoloft Debility -PT/OT consultation -I am unclear how much function she has a baseline Super morbid obesity -BMI 61.5 -Recommend weight loss -Complicates treatment, prognosis, outcomes CODE STATUS -Full code as per discussion on admission Charges/Coding Visit Charges Inpatient E&M: 40504 Init Hosp L3 05/03/22 1730 <Electronically signed by Marina Armas DO> Cosigner Signature (if applicable): CC: Dr. Marina Armas DO; Sepideh Patterson MD~ Signed [facility] Work Phone: [phone]) 399-905201-25-[address] Post [facility] May 03, 2022 4:46pm Note Date/Time May 03, 2022 1 1:14am [facility] Medical Records Department [address] [place] [address] Emergency Department Summary 05/03/22 MR#: [id number] Acct: [id number] Name: HE LAUREANO Rep #:[id number] : 1960 61 From: Miranda Smith PCP: Sepideh Patterson MD Status:ADM IN Location: [address] History of Present Illness Chief Complaint: General Illness Informant: patient Narrative Narrative: Patient is a 61-year-old female with multiple comorbidities including systolic heart failure, COPD, chronic hypoxic/hypercapnic respiratory failure on 3 L of oxygen, anxiety/depression, hypertension, mixed hyperlipidemia, fibromyalgia andgeneralized debility presenting with hypoxia. Patient is presenting from [facility]?SNF. Apparently patient's oxygen was in the 80s on 3 L and they bumped her up to 4 L with no change. Patient also had a blood pressure of 90/60 at the facility. She was sent to the ER for further evaluation. Patient currently denies any complaints except for her chronic pain. She denies any change in her cough or new shortness of breath. She denies any wheezing. She states she does feel thirsty. Denies any change in her urination. Denies abdominal pain, nausea or vomiting. Upon arrival patient was 88% on 3 L and was increased to 4 L in the ER [facility] Medical History Chronic anemia Chronic pain Chronic respiratory failure with hypoxia COPD (chronic obstructive pulmonary disease) Depression GERD (gastroesophageal reflux disease) HFrEF (heart failure with reduced ejection fraction) HTN (hypertension) Hyperlipidemia Morbid obesity Obesity hypoventilation syndrome MARISOL (obstructive sleep apnea) Peptic ulcer disease Seasonal allergies TIA (transient ischemic attack) Vitamin D deficiency Home Medications acetaminophen 325 mg tablet 650 mg PO Q4H PRN Pain 05/03/22 [History Last Taken Unknown] acetaminophen 325 mg tablet 650 mg PO TID PAIN 05/03/22 [History Last Taken 05/03/22] albuterol sulfate 90 mcg/actuation aerosol inhaler 2 puff inhalation Q2H PRN Shortness Of Breath 05/03/22 [History Last Taken Unknown] amitriptyline 25 mg tablet 25 mg PO QHS DEPRESSION 05/03/22 [History Last Taken 05/02/22] atorvastatin 20 mg tablet 20 mg PO QHS CHOLESTEROL 05/03/22 [History Last Taken 05/02/22] benzonatate 100 mg capsule 100 mg PO Q8H PRN Cough 05/03/22 [History Last Taken Unknown] calcium polycarbophil 625 mg tablet (FiberCon) 625 mg PO DAILY CONSTIPATION 05/03/22 [History Last Taken 05/03/22] cyclobenzaprine 10 mg tablet 10 mg PO TID MUSCLE SPASMS 05/03/22 [History Last Taken 05/03/22] dextrose 40 % oral gel (Glucose Gel) 10 g PO Q15M PRN HYPOGLYCEMIC EPISODE 05/03/22 [History Last Taken Unknown] dicyclomine 10 mg capsule 10 mg PO DAILY PRN Diarrhea 05/03/22 [History Last Taken Unknown] ergocalciferol (vitamin D2) 1,250 mcg (50,000 unit) capsule (Vitamin D2) 1,250 mcg PO SA SUPPLEMENT 05/03/22 [History Last Taken 04/29/22] famotidine 20 mg tablet 20 mg PO BID GERD 05/03/22 [History Last Taken 05/03/22] fluticasone propionate 50 mcg/actuation nasal spray,suspension 2 spray intranasal BID NASAL CONGESTION 05/03/22 [History Last Taken 05/03/22] furosemide 40 mg tablet 40 mg PO BID FLUID 05/03/22 [History Last Taken 05/03/22] gabapentin 100 mg capsule 300 mg PO BID NERVE PAIN 05/03/22 [History Last Taken 05/03/22] guaifenesin 600 mg tablet, extended release 12 hr (Mucinex) 600 mg PO BID CONGESTION 05/03/22 [History Last Taken 05/03/22] hydroxyzine HCl 50 mg tablet 50 mg PO Q12H PRN Anxiety 05/03/22 [History Last Taken Unknown] lidocaine 4 % topical patch 1 patch topical DAILY PAIN 05/03/22 [History Last Taken 05/03/22] loperamide 2 mg tablet 2 mg PO Q6H PRN Diarrhea 05/03/22 [History Last Taken Unknown] loratadine 10 mg tablet 10 mg PO DAILY SEASONAL ALLERGIES 05/03/22 [History Last Taken 05/03/22] losartan 50 mg tablet 50 mg PO DAILY BLOOD PRESSURE 05/03/22 [History Last Taken 05/03/22] methyl salicylate 15 %-menthol 10 % topical cream (Muscle Rub) 1 applic topical BID PRN LEFT SHOULDER PAIN 05/03/22 [History Last Taken 05/03/22] montelukast 10 mg tablet 10 mg PO DAILY ALLERGIES 05/03/22 [History Last Taken 05/03/22] omeprazole 20 mg tablet,delayed release 20 mg PO DAILY GERD 05/03/22 [History Last Taken 05/03/22] ondansetron 4 mg oral soluble film 4 mg PO Q8H PRN Nausea 05/03/22 [History Last Taken Unknown] roflumilast 500 mcg tablet (Daliresp) 500 mcg PO DAILY ASTHMA 05/03/22 [History Last Taken 05/03/22] sertraline 100 mg tablet (Zoloft) 100 mg PO QHS DEPRESSION 05/03/22 [History Last Taken 05/02/22] spironolactone 50 mg tablet 50 mg PO DAILY BLOOD PRESSURE 05/03/22 [History Last Taken 05/03/22] sucralfate 100 mg/mL oral suspension (Carafate) 10 ml PO TID ULCER 05/03/22 [History Last Taken 05/03/22] tiotropium bromide 2.5 mcg/actuation mist for inhalation (Spiriva Respimat) 2 puff inhalation QHS ASTHMA 05/03/22 [History Last Taken 05/02/22] tramadol 50 mg tablet 50 mg PO Q8H PRN MUSCLE WEAKNESS 05/03/22 [History Last Taken Unknown] Allergy/AdvReac Type Severity Reaction Status Date / Time aspirin Allergy Other Verified 05/03/22 10:11 black pepper [pepper] Allergy Other Verified 05/03/22 10:11 coconut Allergy Other Verified 05/03/22 10:11 codeine Allergy Other Verified 05/03/22 10:11 ibuprofen Allergy Other Verified 05/03/22 10:11 Influenza Virus Vaccines Allergy Other Verified 05/03/22 10:11 rice Allergy Other Verified 05/03/22 10:11 tetanus and diphtheria Allergy Other Verified 05/03/22 10:11 toxoids Tetanus Vaccines and Toxoid Allergy Other Verified 05/03/22 10:11 Family History (Updated 05/03/22 @ 13:[address] Marina Amras DO) Other CAD (coronary artery disease) COPD (chronic obstructive pulmonary disease) Hypertension Social History (Updated 05/03/22 @ 13:[address] Marina Armas DO) housing: assisted Smoking Status: Former smoker alcohol intake: never substance use type: does not use ROS ROS ED Constitutional Constitutional ED: Denies chills or fever(s) Eyes Eyes: Denies change in vision ENT ENT ED: Denies rhinorrhea or sore throat Cardiovascular Cardiovascular: Denies chest pain or palpitations Respiratory/Chest Respiratory/Chest: Reports cough; Denies dyspnea Gastrointestinal Gastrointestinal: Denies abdominal pain, nausea or vomiting Genitourinary Genitourinary ED: Denies dysuria or urinary frequency Musculoskeletal Musculoskeletal: Reports arthralgias and myalgias Integumentary Denies rash Neurologic Neurologic: Reports weakness; Denies headache(s) Psychiatric Psychiatric: Denies anxiety Hematologic/Lymphatic Hematologic/Lymphatic: Denies easy bleeding or easy bruising EXAM Physical Exam Const Vital Signs: 05/03/22 10:11 05/03/22 10:26 05/03/22 11:42 Temperature 96.3 F L Temperature Source Temporal Pulse Rate 90 92 Respiratory Rate 16 16 Blood Pressure 84/60 L Blood Pressure Mean 68 Pulse Ox 88 93 Oxygen Delivery Method Nasal Cannula Nasal Cannula Nasal Cannula Oxygen Flow Rate (L/min) 3 4 4 05/03/22 11:43 05/03/22 12:30 05/03/22 12:34 Temperature 96.2 F L Temperature Source Temporal Pulse Rate 87 83 83 Respiratory Rate 17 16 Blood Pressure 82/53 L 81/44 L 133/92 H Blood Pressure Mean 62 56 105 Pulse Ox 94 94 Oxygen Delivery Method Nasal Cannula Nasal Cannula Oxygen Flow Rate (L/min) 4 4 Positive well nourished and well developed General Appearance ED: well developed HEENT Reports dry mucous membranes Mouth ED: Yes dry mucous membranes Mouth: dry mucous membranes Eyes PERRL and EOMs intact bilaterally Neck supple and no JVD Chest Wall inspection of chest normal and palpation of chest normal Resp normal respiratory effort Effort and Inspection: Negative for retractions Auscultation: diminished lung sounds; Negative for wheezes Cardio regular rate, regular rhythm and no murmurs GI normal to inspection, nondistended, normoactive bowel sounds Extremity normal to inspection General Extremety ED: Negative for edema General Extremity: Negative for edema Neuro Neuro Narrative: Oriented to self and place. Intermittent twitching episodes. Patient states she gets these from time to time Sensorium / Orientation: alert Motor Exam: general weakness Psych mental status grossly normal Skin no rashes or lesions noted and no wounds MDM MDM MDM Narrative Medical decision making narrative: Patient is evaluated for increased O2 requirements at nursing facility. There is also report of some diarrhea. Patient's vital signs remarkable for mild hypoxia requiring 4 L of oxygen but more significant is her hypotension. In addition patient had lab work 2 days ago which showed an elevation of her creatinine from her baseline. Patient states she is thirsty and she does have dry mucosal membranes. She does not clinically appear fluid overloaded however given that she does have a history of heart failure will give gentle fluid resuscitation. Patient initially is given a 500 cc bolus of fluids with no significant improvement of her blood pressure. She is given additional 500 bolus and then started on maintenance fluids. Patient's blood pressure is improved. Her CBC shows a chronic and stable anemia. Her lactate is normal at 1.1 and I do not suspect any endorgan damage at this time. Her CMP is remarkable for an elevated creatinine of 2.04 as well as an elevated bicarb of 40 with a low anion gap. I suspect the elevated bicarb is consistent with chronic hypercapnic respiratory failure. Patient's urinalysis is also consistent with UTI with positive nitrates, 10 to 25 white blood cells and 2+ bacteria. Urine culture sent and she started on IV antibiotics. Given that her blood pressure has improved with fluid resuscitation and she is fluid responsive with no signs of endorgan damage I do not think she requires ICU. She will be admitted to the hospital for correction of her ZONIA and gentle hydration. Patient agreeable with plan of care. Lab Data Attestation: I reviewed the patient's lab results. Labs: Laboratory Results - last 24 hr 05/03/22 05/03/22 05/03/22 10:30 10:40 10:40 WBC 10.7 RBC 4.04 L Hgb 10.7 L Hct 36.4 L MCV 90.1 MCH 26.5 L MCHC 29.4 L RDW Std Deviation 43.8 RDW Coeff of David 13.3 Plt Count 262 MPV 11.4 Immature Gran % (Auto) 1.000 H Neut % (Auto) 70.4 H Lymph % (Auto) 20.2 Nobles % (Auto) 7.1 Eos % (Auto) 1.0 Baso % (Auto) 0.3 Absolute Neuts (auto) 7.5 Absolute Lymphs (auto) 2.16 Nucleated RBC % 0 PT 12.7 INR 1.0 APTT 28.3 Sodium Potassium Chloride Carbon Dioxide Anion Gap BUN Creatinine Estim Creat Clear Calc Est GFR (MDRD) Af Amer Est GFR (MDRD) Non-Af BUN/Creatinine Ratio Glucose Lactic Acid 1.1 Calcium Total Bilirubin AST ALT Alkaline Phosphatase B-Natriuretic Peptide Total Protein Albumin Globulin Albumin/Globulin Ratio Urine Color Urine Clarity Urine pH Ur Specific [place] Urine Protein Urine Glucose (UA) Urine Ketones Urine Occult Blood Urine Nitrite Urine Bilirubin Urine Urobilinogen Ur Leukocyte Esterase Urine RBC Urine WBC Ur Squamous Epith Cells Urine Bacteria Urine Mucus 05/03/22 05/03/22 05/03/22 10:40 10:40 11:10 WBC RBC Hgb Hct MCV MCH MCHC RDW Std Deviation RDW Coeff of David Plt Count MPV Immature Gran % (Auto) Neut % (Auto) Lymph % (Auto) Nobles % (Auto) Eos % (Auto) Baso % (Auto) Absolute Neuts (auto) Absolute Lymphs (auto) Nucleated RBC % PT INR APTT Sodium 137 Potassium 5.2 H Chloride 93 L Carbon Dioxide 40.0 H Anion Gap 4 L BUN 58 H Creatinine 2.04 H Estim Creat Clear Calc 28.52 Est GFR (MDRD) Af Amer 32 L Est GFR (MDRD) Non-Af 26 L BUN/Creatinine Ratio 28.4 H Glucose 126 H Lactic Acid Calcium 10.1 Total Bilirubin 0.40 AST 7 L ALT 10 L Alkaline Phosphatase 89 B-Natriuretic Peptide 5.1 Total Protein 7.7 Albumin 3.2 Globulin 4.5 H Albumin/Globulin Ratio 0.7 L Urine Color Yellow Urine Clarity Sl. Cloudy Urine pH 6.5 Ur Specific [place] 1.020 Urine Protein 15 H Urine Glucose (UA) Normal Urine Ketones Negative Urine Occult Blood Negative Urine Nitrite Positive H Urine Bilirubin Negative Urine Urobilinogen Normal Ur Leukocyte Esterase 100 H Urine RBC 0 SEEN Urine WBC 10-25 SEEN Ur Squamous Epith Cells 0-5 SEEN Urine Bacteria 2+ Urine Mucus 0 SEEN Radiography Diagnostic Testing: Clinical Impression(s) from Imaging Studies Chest X-Ray 05/03/22 10:34 IMPRESSION: Lungs are clear. Mild cardiomegaly. Electronically Signed: David Conner MD at 11:41 EST Reading Location ID and State: [facility] / [place] , Service support , Rhythm Strip Rhythm Strip: Sinus Rhythm Rate: 93 Ectopy: None EKG Initial EKG: Attestation: I personally reviewed and interpreted this EKG as follows: Interpretation: Sinus Rhythm Comments: Normal sinus rhythm at a rate of 93 bpm Normal axis Right bundle branch block Normal ST segments Discharge Plan Dx/Rx/DC Orders Clinical Impression: ZONIA (acute kidney injury), Dehydration, UTI (urinary tract infection), Acute and chronic respiratory failure with hypoxia Disposition Disposition: Acute Care Hospital [facility] Discharge Date/Time: 05/03/22 13:44 What to do if you have Problems For any increased pain, shortness of breath, bleeding, nausea or vomiting, chest pain, or any unexpected problems, contact your Primary Care Provider. Call [facility] ([phone]) or report to the closest Emergency Room. Call 911 if necessary. 05/03/22 1646 <Electronically signed by Miranda Post DO> Cosigner Signature (if applicable): CC: Sepideh Patterson MD ~ Signed [facility] Work Phone: [phone]) 247-790811-10-2022 History of Present illness Narrative* KELSIE Ornelas - 02/16/2022 12:59 PM EST ORTHOTICS DEPARTMENT PROGRESS NOTE Encounter Date: 02/14/2022 Patient Name: He Laureano Date of : 1960 Referring Physician/Practitioner: DO Pawel Lawrence service provided: [facility] Person accompanying patient: Evens Diagnosis: ICD-10-CM ICD-9-CM 1. Closed displaced fracture of medial malleolus of right tibia with routine healing - Right S82.51XD V54.19 2. Closed fracture of head of fibula, right, with delayed healing, subsequent encounter - Right S82.831G V54.16 Clinical Course: acute Description of and response to prior orthoses: none Complicating medical conditions including allergies or sensitivity to materials: Morbidly obese. 404 lb Service: Evaluated, measured, fit and delivered: Right AFO: Walking boot, [employer], pneumatic, tall, DJO #[id number] Size: m Modification(s) to pre-fabricated orthosis: Spent ten minutes using contouring instruments and scissors to modify orthosis to achieve custom fit: Contoured medial and lateral uprights to ankle and leg to increase frontal plane control. Adjusted posterior straps to align uprights in sagittal plane to facilitate smooth rollover. Added Donjoy Achilles heel wedge inside boot to accommodate plantar flexor tightness. Added velcro instep strap extension. Reason(s) patient requires a customized orthosis: Patient could not be fit with an OTS orthosis Patient lacks normal anthropometric proportions Patient has a healing fracture Goals and Expected Outcomes: reduce pain increase comfort prevent deformity promote healing Delivery Checklist: Orthosis checked for workmanship, structural safety and appropriateness. Ensured research mechanic guidelines are followed. Verified that orthosis delivered is not adulterated, counterfeit, suspected of being counterfeit and has not been obtained by fraud or deceit. Verified that orthosis delivered is not misbranded and is appropriately labeled for its intended distribution channels. Verified that orthosis delivered is consistent with client request, physician order and client's needs, risks and limitations. Informed patient and/or caregiver concerning purpose of orthosis, function, risk, benefits, precautions and the estimated time involved in the process. Informed patient and/or caregiver of procedures for repairing, replacing and/or adjusting orthosis. Instructed patient and/or caregiver on proper donning, use and care. Orthosis fit patient properly and functioned properly. Patient and/or caregiver satisfied with fit and function. Answered patient's and/or caregiver's questions. Patient and/or caregiver understood all instructions given. Gave patient and/or caregiver written instructions on proper donning, use and care. Plan of Care: Will follow as needed. Rn Emergency/Fitter: ÁLVARO Costello LO documented in this encounterOhioHealthConsult note Author Donte Pepper [facility] April 20, 2023 9:57am Note Date/Time April 20, 2023 9 :57am [facility] Medical Records Department [address] [place] [address] Counseling Note - Pharmacy 04/20/23 0956 MR#: [id number] Acct: [id number] Name: HE LAUREANO Rep #:[id number] : 1960 62 From: Donte Pepper PCP: Sepideh Patterson MD Status:ADM IN Y Location: [place] [address] Pharmacy [place] Med Reconciliation Pharmacy Service has performed discharge medication reconciliation for this patient. The patient's discharge medication list was reviewed for discrepancies and discrepancies were resolved. Medications at Discharge Home Medications amitriptyline 25 mg tablet 25 mg PO QODAY DEPRESSION 05/03/22 atorvastatin 20 mg tablet 20 mg PO QHS CHOLESTEROL 05/03/22 famotidine 20 mg tablet 20 mg PO QHS GERD 05/03/22 fluticasone propionate 50 mcg/actuation nasal spray,suspension 2 spray intranasal BID PRN NASAL CONGESTION 05/03/22 losartan 50 mg tablet 50 mg PO DAILY BLOOD PRESSURE 05/03/22 montelukast 10 mg tablet 10 mg PO DAILY ALLERGIES 05/03/22 omeprazole 20 mg tablet,delayed release 20 mg PO DAILY GERD 05/03/22 roflumilast 500 mcg tablet (Daliresp) 500 mcg PO DAILY ASTHMA 05/03/22 sertraline 100 mg tablet (Zoloft) 100 mg PO QHS DEPRESSION 05/03/22 dicyclomine 10 mg capsule 10 mg PO 4X/DAY IRRITABLE BOWELS #1 cap 05/05/22 albuterol sulfate 90 mcg/actuation aerosol inhaler 2 puff inhalation Q2H PRN SOB09/08/22 cholecalciferol (vitamin D3) 50 mcg (2,000 unit) tablet 50 mcg PO DAILY SUPPLEMENT 04/16/23 loperamide 2 mg capsule (Imodium A-D) 2 mg PO Q8H PRN DIARRHEA 04/16/23 prednisone 10 mg tablet 10 mg PO DAILY COPD 04/16/23 sertraline 50 mg tablet 50 mg PO DAILY DEPRESSION 04/16/23 acetaminophen 325 mg tablet 650 mg (2 x 325 mg) PO Q4H PRN PRN Fever, pain - 01/16 #0 tabs 04/20/23 aluminum-mag hydroxide-simethicone 400 mg-400 mg-40 mg/5 mL oral susp (Mag-Al Plus Extra Strength) 30 ml PO Q6H PRN PRN Gastric Burning #0 mL 04/20/23 melatonin 3 mg tablet 3 mg PO QHS PRN PRN Insomnia #0 tabs 04/20/23 menthol 0.44 %-zinc oxide 20.6 % topical ointment (Calmoseptine) 1 applic topical 4X/DAY #0 grams 04/20/23 04/20/23 0957 <Electronically signed by Donte read> Date _ Donte Lorenzanaigner Signature (if applicable): Date CC: ~ Signed [facility] Work Phone: Discharge summary Author Leanna Pascual [facility] April 20, 2023 9:35am Note Date/Time April 20, 2023 9 :31am [facility] Medical Records Department [address] [place] [address] Transfer to [facility] MR#: [id number] Acct: [id number] Name: HE LAUREANO Rep #:[id number] : 1960 62 From: Leanna Pascual MD PCP: Sepideh Patterson MD Status:ADM IN Certification of patient admission REQUIRED AT TIME OF ADMISSION. I CERTIFY THAT POST-HOSPITAL ECF SERVICES ARE REQUIRED TO BE GIVEN ON AN IN-PATIENT BASIS BECAUSE OF THE ABOVE NAMED PATIENT'S NEED FOR RESIDENTIAL CARE ON A CONTINUING BASIS FOR THE CONDITION(S) FOR WHICH HE/SHE WAS RECEIVING IN-PATIENT HOSPITAL SERVICES PRIOR TO HIS/HER TRANSFER TO THE ECF. 04/20/23 0935<Electronically signed by Leanna Pascual MD> Diet Diet Order/Speech Therapy: 04/16/23 18:18 Diet: Cardiac - Heart Healthy Food consistency:: Pureed Liquid Consistency:: Regular/Thin Is pt able to select menu?: No Diet Comments: TOTAL FEED/MAX A, FEED ONLY WHEN ALERT, MEDS CRUSHED IN . Wound(s) right abdominal fold: Wound Type: moisture related open area Dressing Change: AntiMicrobial (Aquacel AG, etc) Therapies Physical Therapy: Eval and Treat Occupational Therapy: Eval and Treat Problem/Diagnosis (1) RSV bronchitis: Status: Acute Code(s): J20.5 - Acute bronchitis due to respiratory syncytial virus Plan Patient is a 62-year-old lady with multiple comorbidities including obesity withBMI of 57 currently residing at an extended care facility who was brought in with altered mental status. An assessment of acute encephalopathy secondary to RSV bronchitis made admitted to a monitored bed for subsequent management 1. Acute metabolic encephalopathy ? Due to combination of RSV bronchitis as well as acute cystitis. Admitted to amonitored bed for treatment of underlying clinical etiology 04/18/2023 level of sensorium improving 2. Acute RSV infection with bronchitis ? Admitted to regular nursing floor managed with bronchodilator treatment regimen as well as supplemental oxygen ? 04/18/2023 patient remains on supplemental oxygen 3. Acute cystitis ? Patient urine cultures grew a bunch of organism with no significant colony count 4. Acute on chronic hypoxic respiratory failure ? Due to combination of sleep apnea and obesity hypoventilation syndrome as wellas patient RSV bronchitis. Managed with supplemental oxygen titrated to keep saturation greater than 90 5. Acute kidney injury ? Patient baseline creatinine from 03/08/2023 was 0.99, creatinine on admission was 5.65 admitted to monitored bed managed with IV fluids, ordered renal ultrasound, avoid nephrotoxic medication, response to therapy being monitored with daily BMP ?04/18/2023; creatinine down to 3.63 will continue hydration with subsequent monitoring of electrolytes ? 04/19/2023; creatinine down to 2.2 5. Essential hypertension ? Patient is on losartan held in view of impaired kidney function 6.? Chronic hypoxic respiratory failure ? Due to obstructive sleep apnea as well as obesity hypoventilation syndrome patient is on baseline oxygen 7.? Obesity hypoventilation syndrome ? Consistent use of BiPAP encouraged 8.? COPD ? Currently not in exacerbation aerosol treatments as needed 9.?Class III obesity with BMI of BMI of 57 ? Complicating care 10. GERD ? On PPI 11. Depression ? Patient is on SSRI 12. Anemia - Secondary to chronic disorder monitoring H&H and transfuse if patient becomes symptomatic or hemoglobin falls below 7 13. Chronic congestive heart failure with preserved ejection fraction ? Echo from 05/05/2022 demonstrated EF of 55 to 60%. Patient is on Aldactone held in view of her impaired kidney function 14. DVT prophylaxis ? SC heparin Time spent in the patient's overall evaluation,decision-making process, review of diagnostic data, adjustment of management, discussion with other providers, nursing nursing and ancillary staff involved in patient's care documentation, 35Minutes Allergies/Procedures Done in Hospital Allergies aspirin Allergy (Verified 09/08/22 00:15) Other black pepper [pepper] Allergy (Verified 09/08/22 00:15) Other coconut Allergy (Verified 09/08/22 00:15) Other codeine Allergy (Verified 09/08/22 00:15) Other ibuprofen Allergy (Verified 09/08/22 00:15) Other Influenza Virus Vaccines Allergy (Verified 09/08/22 00:15) Other Penicillins Allergy (Verified 09/08/22 00:15) Anaphylaxis rice Allergy (Verified 09/08/22 00:15) Other tetanus and diphtheria toxoids Allergy (Verified 09/08/22 00:15) Other Tetanus Vaccines and Toxoid Allergy (Verified 09/08/22 00:15) Other Type of Care/Length of Stay Estimated LOS: More Than 30 Days Type of Care Needed: Intermediate Rehab Potential: Fair Prognosis: Fair Additional Orders/Day of Discharge Day of Discharge: 04/20/23 Dietary and Speech Recommendations Dietitian Recommendations/Changes: continue cardiac diet as tolerated Discharge Plan Admission Admit Date/Time: 04/16/23 16:46 Attending Provider: Leanna Pascual Primary Care Provider: Sepideh Patterson Consulting Providers: Elizabeth Choe Discharge Orders/Prescriptions Prescriptions: New acetaminophen 325 mg Tablet 650 mg PO Q4H PRN PRN (Reason: Fever, pain 1-01/16) Qty: 0 0RF melatonin 3 mg Tablet 3 mg PO QHS PRN PRN (Reason: Insomnia) Qty: 0 0RF alum-mag hydroxide-simeth [Mag-Al Plus Extra Strength] 400-400-40 mg/5 mL Suspension 30 ml PO Q6H PRN PRN (Reason: Gastric Burning) Qty: 0 0RF menthol-zinc oxide [Calmoseptine] 0.44-20.6 % Ointment 1 applic topical 4X/DAY Qty: 0 0RF Protocol: *Topical Application Instructions APPLICATION INSTRUCTIONS: apply to affected region Continued losartan 50 mg Tablet 50 mg PO DAILY atorvastatin 20 mg Tablet 20 mg PO QHS sertraline [Zoloft] 100 mg Tablet 100 mg PO QHS Rx Instructions: TAKE ONE 50MG AND ONE 100MG TABLET TOGETHER ONCE DAILY FOR A TOTAL DAILY DOSE OF 150MG. famotidine 20 mg Tablet 20 mg PO QHS amitriptyline 25 mg Tablet 25 mg PO QODAY montelukast 10 mg Tablet 10 mg PO DAILY fluticasone propionate 50 mcg/actuation [place],Suspension 2 spray INTRANASAL BID PRN (Reason: NASAL CONGESTION) omeprazole 20 mg Tablet,Delayed Release (Dr/Ec) 20 mg PO DAILY roflumilast [Daliresp] 500 mcg Tablet 500 mcg PO DAILY dicyclomine 10 mg Capsule 10 mg PO 4X/DAY Qty: 1 0RF albuterol sulfate 90 mcg/actuation Hfa Aerosol Inhaler 2 puff INHALATION Q2H PRN (Reason: SOB) prednisone 10 mg tablet 10 mg PO DAILY cholecalciferol (vitamin D3) 50 mcg (2,000 unit) tablet 50 mcg PO DAILY sertraline 50 mg tablet 50 mg PO DAILY Rx Instructions: TAKE ONE 50MG AND ONE 100MG TABLET TOGETHER ONCE DAILY FOR A TOTAL DAILY DOSE OF 150MG. loperamide [Imodium A-D] 2 mg capsule 2 mg PO Q8H PRN (Reason: DIARRHEA ) Discontinued cyclobenzaprine 10 mg Tablet 10 mg PO TID furosemide 40 mg tablet 40 mg PO DAILY Qty: 30 0RF spironolactone 25 mg tablet 12.5 mg PO DAILY Referrals / Follow Up: Sepideh Patterson MD [Primary Care Provider] - Disposition Discharge Orders: Discharge Patient (Routine); Ordered 04/20/23 Ordered By: Dr. Leanna Pascual 04/20/23 0935 <Electronically signed by Leanna Pascual MD> Cosigner Signature (if applicable): CC: Dr. Elizabeth Choe MD; Sepideh Patterson MD ~ [facility] Work Phone: Discharge summary Author Leanna Pascual [facility] April 20, 2023 9:36am Note Date/Time April 20, 2023 9 :36am [facility] Medical Records Department [facility] [place] [address] Discharge Summary 04/20/23 0935 MR#: [id number] Acct: [id number] Name: KYMBERLYHE Park Rep #:[id number] : 1960 62 From: Leanna Pascual MD PCP: Sepideh Patterson MD Status:ADM IN Location: [place] [address] Providers Date of Admission: 04/16/23 Date of Discharge: 04/20/23 Primary Care Physician: Dr. 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 An assessment of acute encephalopathy secondary to RSV bronchitis made admitted to a monitored bed for subsequent management 1. Acute metabolic encephalopathy ? Due to combination of RSV bronchitis as well as acute cystitis. Admitted to amonitored bed for treatment of underlying clinical etiology 04/18/2023 level of sensorium improving 2. Acute RSV infection with bronchitis ? Admitted to regular nursing floor managed with bronchodilator treatment regimen as well as supplemental oxygen ? 04/18/2023 patient remains on supplemental oxygen 3. Acute cystitis ? Patient urine cultures grew a bunch of organism with no significant colony count ? Patient not discharged with any antibiotic therapy 4. Acute on chronic hypoxic respiratory failure ? Due to combination of sleep apnea and obesity hypoventilation syndrome as wellas patient RSV bronchitis. Managed with supplemental oxygen titrated to keep saturation greater than 90 5. Acute kidney injury ? Patient baseline creatinine from 03/08/2023 was 0.99, creatinine on admission was 5.65 admitted to monitored bed managed with IV fluids, ordered renal ultrasound, avoid nephrotoxic medication, response to therapy being monitored with daily BMP ?04/18/2023; creatinine down to 3.63 will continue hydration with subsequent monitoring of electrolytes ? 04/19/2023; creatinine down to 2.2 ? 04/20/2023 creatinine down to 1.4 5. Essential hypertension ? Patient is on losartan held in view of impaired kidney function 6.? Chronic hypoxic respiratory failure ? Due to obstructive sleep apnea as well as obesity hypoventilation syndrome patient is on baseline oxygen 7.? Obesity hypoventilation syndrome ? Consistent use of BiPAP encouraged 8.? COPD ? Currently not in exacerbation aerosol treatments as needed 9.?Class III obesity with BMI of BMI of 57 ? Complicating care 10. GERD ? On PPI 11. Depression ? Patient is on SSRI 12. Anemia - Secondary to chronic disorder monitoring H&H and transfuse if patient becomes symptomatic or hemoglobin falls below 7 13. Chronic congestive heart failure with preserved ejection fraction ? Echo from 05/05/2022 demonstrated EF of 55 to 60%. Patient is on Aldactone held in view of her impaired kidney function 14. DVT prophylaxis ? SC heparin Time spent in the patient's overall evaluation,decision-making process, review of diagnostic data, adjustment of management, discussion with other providers, nursing nursing and ancillary staff involved in patient's care documentation, 35Minutes Medications at Discharge Home Medications amitriptyline 25 mg tablet 25 mg PO QODAY DEPRESSION 05/03/22 atorvastatin 20 mg tablet 20 mg PO QHS CHOLESTEROL 05/03/22 famotidine 20 mg tablet 20 mg PO QHS GERD 05/03/22 fluticasone propionate 50 mcg/actuation nasal spray,suspension 2 spray intranasal BID PRN NASAL CONGESTION 05/03/22 losartan 50 mg tablet 50 mg PO DAILY BLOOD PRESSURE 05/03/22 montelukast 10 mg tablet 10 mg PO DAILY ALLERGIES 05/03/22 omeprazole 20 mg tablet,delayed release 20 mg PO DAILY GERD 05/03/22 roflumilast 500 mcg tablet (Daliresp) 500 mcg PO DAILY ASTHMA 05/03/22 sertraline 100 mg tablet (Zoloft) 100 mg PO QHS DEPRESSION 05/03/22 dicyclomine 10 mg capsule 10 mg PO 4X/DAY IRRITABLE BOWELS #1 cap 05/05/22 albuterol sulfate 90 mcg/actuation aerosol inhaler 2 puff inhalation Q2H PRN SOB09/08/22 cholecalciferol (vitamin D3) 50 mcg (2,000 unit) tablet 50 mcg PO DAILY SUPPLEMENT 04/16/23 loperamide 2 mg capsule (Imodium A-D) 2 mg PO Q8H PRN DIARRHEA 04/16/23 prednisone 10 mg tablet 10 mg PO DAILY COPD 04/16/23 sertraline 50 mg tablet 50 mg PO DAILY DEPRESSION 04/16/23 acetaminophen 325 mg tablet 650 mg (2 x 325 mg) PO Q4H PRN PRN Fever, pain - 01/16 #0 tabs 04/20/23 aluminum-mag hydroxide-simethicone 400 mg-400 mg-40 mg/5 mL oral susp (Mag-Al Plus Extra Strength) 30 ml PO Q6H PRN PRN Gastric Burning #0 mL 04/20/23 melatonin 3 mg tablet 3 mg PO QHS PRN PRN Insomnia #0 tabs 04/20/23 menthol 0.44 %-zinc oxide 20.6 % topical ointment (Calmoseptine) 1 applic topical 4X/DAY #0 grams 04/20/23 Physical Exam Narrative GENERAL: Awake and interactive HEENT: Atraumatic; normocephalic EYES; Anicteric, Normal Conjunctiva NECK; supple, normal thyroid, RESPIRATORY: Diminished to auscultation CARDIOVASCULAR: Regular S1 S2, GI: soft, normoactive bowel sounds, : No Renal angle tenderness; EXTREMITIES: No edema, no clubbing, MUSCULOSKELETAL: no muscle wasting NEURO: Awake; no lateralizing signs. SKIN: No Rash PSYCH; awake and interactive Weight / BMI Weight Weight: 161.9 kg Body Mass Index (BMI) 57.6 ABG / Lab / Microbiology Data 04/20/23 06:10 04/20/23 06:10 Laboratory: Laboratory Results - last 24 hr 04/19/23 14:50: Sodium 144, Potassium 4.5, Chloride 106, Carbon Dioxide 34.0 H, Anion Gap 4 L, BUN 37 H, Creatinine 1.85 H, Estim Creat Clear Calc 50.40, Est GFR (MDRD) Af Amer 36 L, Est GFR (MDRD) Non-Af 29 L, BUN/Creatinine Ratio 20.0, Glucose 116 H, Calcium 8.8 04/20/23 06:10: WBC 6.7, RBC 3.50 L, Hgb 9.4 L, Hct 32.9 L, MCV 94.0, MCH 26.9 L, MCHC 28.6 L, RDW Std Deviation 45.7 H, RDW Coeff of David 13.4, Plt Count 276, MPV 10.7, Immature Gran % (Auto) 3.400 H, Neut % (Auto) 69.7, Lymph % (Auto) 16.4 L, [place] % (Auto) 10.1 H, Eos % (Auto) 0.0, Baso % (Auto) 0.4, Absolute Neuts (auto) 4.7, Absolute Lymphs (auto) 1.10, Nucleated RBC % 0, Sodium 142, Potassium 4.1, Chloride 103, Carbon Dioxide 35.0 H, Anion Gap 4 L, BUN 34 H, Creatinine 1.46 H, Estim Creat Clear Calc 64.10, Est GFR (MDRD) Af Amer 47 L, Est GFR (MDRD) Non-Af 39 L, BUN/Creatinine Ratio 23.3 H, Glucose 88, Calcium 9.2 Microbiology: Microbiology 04/16/23 15:15 Urine Catheter - Catheter Urine Culture - Final Presumptive E. coli Presumptive E. coli#2 Lactobacillus gasseri Staphylococcus haemolyticus Enterococcus faecalis 04/16/23 14:19 Blood Culture (Wb) - Other Blood Culture - Preliminary No growth in 48 hours. 04/16/23 13:40 Blood Culture (Wb) - Arm Left Blood Culture - Preliminary No growth in 48 hours. 04/16/23 15:15 Urine, Clean Catch Legionella Antigen - Final 04/16/23 15:15 Urine, Clean Catch Streptococcus pneumoniae Antigen (M - Final 04/16/23 13:37 Mucosa - Nose SARS-CoV-2, Influenza & RSV (PCR) - Final RSV D/C Instructions Discharge Diet: No restrictions Discharge Activity: Return to Normal Activity Call your doctor if you observe: Fever of 101 or Higher, Shortness of breath, Fainting spells and Chest pain Meaningful Use Info Meaningful Use Diagnoses (Choose all that apply): None applicable Discharge Plan Admission Admit Date/Time: 04/16/23 16:46 Attending Provider: Leanna Pascual Primary Care Provider: Sepideh Patterson Consulting Providers: Elizabeth Choe Discharge Orders/Prescriptions Prescriptions: New acetaminophen 325 mg Tablet 650 mg PO Q4H PRN PRN (Reason: Fever, pain 1-01/16) Qty: 0 0RF melatonin 3 mg Tablet 3 mg PO QHS PRN PRN (Reason: Insomnia) Qty: 0 0RF alum-mag hydroxide-simeth [Mag-Al Plus Extra Strength] 400-400-40 mg/5 mL Suspension 30 ml PO Q6H PRN PRN (Reason: Gastric Burning) Qty: 0 0RF menthol-zinc oxide [Calmoseptine] 0.44-20.6 % Ointment 1 applic topical 4X/DAY Qty: 0 0RF Protocol: *Topical Application Instructions APPLICATION INSTRUCTIONS: apply to affected region Continued losartan 50 mg Tablet 50 mg PO DAILY atorvastatin 20 mg Tablet 20 mg PO QHS sertraline [Zoloft] 100 mg Tablet 100 mg PO QHS Rx Instructions: TAKE ONE 50MG AND ONE 100MG TABLET TOGETHER ONCE DAILY FOR A TOTAL DAILY DOSE OF 150MG. famotidine 20 mg Tablet 20 mg PO QHS amitriptyline 25 mg Tablet 25 mg PO QODAY montelukast 10 mg Tablet 10 mg PO DAILY fluticasone propionate 50 mcg/actuation [place],Suspension 2 spray INTRANASAL BID PRN (Reason: NASAL CONGESTION) omeprazole 20 mg Tablet,Delayed Release (Dr/Ec) 20 mg PO DAILY roflumilast [Daliresp] 500 mcg Tablet 500 mcg PO DAILY dicyclomine 10 mg Capsule 10 mg PO 4X/DAY Qty: 1 0RF albuterol sulfate 90 mcg/actuation Hfa Aerosol Inhaler 2 puff INHALATION Q2H PRN (Reason: SOB) prednisone 10 mg tablet 10 mg PO DAILY cholecalciferol (vitamin D3) 50 mcg (2,000 unit) tablet 50 mcg PO DAILY sertraline 50 mg tablet 50 mg PO DAILY Rx Instructions: TAKE ONE 50MG AND ONE 100MG TABLET TOGETHER ONCE DAILY FOR A TOTAL DAILY DOSE OF 150MG. loperamide [Imodium A-D] 2 mg capsule 2 mg PO Q8H PRN (Reason: DIARRHEA ) Discontinued cyclobenzaprine 10 mg Tablet 10 mg PO TID furosemide 40 mg tablet 40 mg PO DAILY Qty: 30 0RF spironolactone 25 mg tablet 12.5 mg PO DAILY Referrals / Follow Up: Sepideh Patterson MD [Primary Care Provider] - Disposition Discharge Orders: Discharge Patient (Routine); Ordered 04/20/23 Ordered By: Dr. Leanna Pascual Charges/Coding Visit Charges Inpatient E&M: 44766 Subs Hosp L2 04/20/23 0936 <Electronically signed by Leanna Pascual MD> Cosigner Signature (if applicable): CC: Dr. Leanna Pascual MD; Sepideh Patterson MD~ Signed [facility] Work Phone: evaluation note* Diagnosis Right ankle pain, unspecified chronicity- Primary [facility] [place] [facility]* Diagnosis Closed displaced fracture of medial malleolus of right tibia with routine healing - Right- Primary Closed fracture of head of fibula, right, with delayed healing, subsequent encounter - Right [facility] Work [facility]: [facility]* Diagnosis Onset Date Resolution Status ZONIA (acute kidney injury) ac [place] Dehydration acute Diarrhea acute Hyperkalemia acute Hypoxia acute UTI (urinary tract infection) [facility] Work Phone: Evaluation note* Diagnosis Onset Date Resolution Status ZONIA (acute kidney injury) ac [place] Dehydration acute Diarrhea acute Hyperkalemia acute Hypoxia acute UTI (urinary tract infection) acute Acute and chronic respiratory failure with hypoxia chronic [facility] Work Phone: Evaluation note* Diagnosis Onset Date Resolution Status Acute and chronic respiratory failure with hypoxia acute ZONIA (acute kidney injury) ac [place] Dehydration acute Diarrhea acute Hyperkalemia acute Hypoxia acute UTI (urinary tract infection) [facility] Work Phone: Evaluation note* Diagnosis Onset Date Resolution Status Acute and chronic respiratory failure with hypoxia acute Diarrhea acute Hypoxia acute ZONIA (acute kidney injury) re solved Dehydration resolved Hyperkalemia resolved Acute kidney injury acute UTI (urinary tract infection) acute [facility] Work Phone: Evaluation note* Diagnosis Onset Date Resolution Status Acute and chronic respiratory failure with hypoxia acute Diarrhea acute Hypoxia acute ZONIA (acute kidney injury) re solved Dehydration resolved Hyperkalemia resolved Acute kidney injury acute MARISOL (obstructive sleep apnea) acute UTI (urinary tract infection) acute Chronic respiratory failure with hypoxia chronic COPD (chronic obstructive pulmonary disease) chronic [facility] Work Phone: Evaluation note* Diagnosis Onset Date Resolution Status Acute and chronic respiratory failure with hypoxia acute Diarrhea acute Hypoxia acute ZONIA (acute kidney injury) re solved Dehydration resolved Hyperkalemia resolved MARISOL (obstructive sleep apnea) acute Chronic respiratory failure with hypoxia chronic COPD (chronic obstructive pulmonary disease) chronic Acute kidney injury resolved UTI (urinary tract infection) resolved [facility] Work Phone: Evaluation note* Diagnosis Onset Date Resolution Status Acute and chronic respiratory failure with hypoxia acute Diarrhea acute Hypoxia acute ZONIA (acute kidney injury) re solved Dehydration resolved Hyperkalemia resolved MARISOL (obstructive sleep apnea) acute Chronic respiratory failure with hypoxia chronic COPD (chronic obstructive pulmonary disease) chronic Acute kidney injury resolved UTI (urinary tract infection) resolved Acute and chronic respiratory failure with hypoxia acute Hypercarbia acute Pneumonia acute [facility] Work Phone: Evaluation note* Diagnosis Onset Date Resolution Status Acute and chronic respiratory failure with hypoxia acute Diarrhea acute Hypoxia acute ZONIA (acute kidney injury) re solved Dehydration resolved Hyperkalemia resolved MARISOL (obstructive sleep apnea) acute Chronic respiratory failure with hypoxia chronic COPD (chronic obstructive pulmonary disease) chronic Acute kidney injury resolved UTI (urinary tract infection) resolved Acute and chronic respiratory failure with hypoxia acute Hypercarbia acute Hypoxia acute Metabolic encephalopathy acu te Pneumonia acute [facility] Work Phone: Evaluation note* Diagnosis Onset Date Resolution Status Acute and chronic respiratory failure with hypoxia resolved ZONIA (acute kidney injury) re solved Dehydration resolved Diarrhea resolved Hyperkalemia resolved Hypoxia resolved Acute kidney injury resolved UTI (urinary tract infection) resolved Acute and chronic respiratory failure with hypoxia resolved Hypercarbia resolved Hypoxia resolved Metabolic encephalopathy res olved Pneumonia resolved [facility] Work Phone: Evaluation note* Diagnosis Onset Date Resolution Status Acute kidney injury resolved UTI (urinary tract infection) resolved Acute and chronic respiratory failure with hypoxia resolved Hypercarbia resolved Hypoxia resolved Metabolic encephalopathy res olved Pneumonia resolved Acute kidney injury acute Leukocytosis acute UTI (urinary tract infection) acute Chronic respiratory failure chronic [facility] Work Phone: evaluation note* Diagnosis Onset Date Resolution Status Acute kidney injury acute Leukocytosis acute Chronic respiratory failure chronic UTI (urinary tract infection) resolved [facility] Work Phone: Evaluation note* Diagnosis Onset Date Resolution Status Acute kidney injury acute Altered level of consciousness acute Hypoxia acute Morbid obesity acute RSV bronchitis acute UTI (urinary tract infection) acute [facility] Work Phone: Evaluation note* Diagnosis Onset Date Resolution Status Acute kidney injury acute Altered level of consciousness acute Hypoxia acute Morbid obesity acute RSV bronchitis acute UTI (urinary tract infection) acute Acute hypoxic on chronic hyp ercapnic respiratory failure acute History of anemia acute History of hypertension acut e History of morbid obesity ac [place] History of obstructive sleep apnea acute History of COPD chronic [facility] Work Phone: Evaluation note* Diagnosis Onset Date Resolution Status Acute kidney injury acute Altered level of consciousness acute Hypoxia acute Morbid obesity acute RSV bronchitis acute UTI (urinary tract infection) acute Acute hypoxic on chronic hyp ercapnic respiratory failure acute Encephalopathy acute acute History of anemia acute History of hypertension acut e History of morbid obesity ac [place] History of obstructive sleep apnea acute History of COPD chronic [facility] Work Phone: Evaluation note* Diagnosis Onset Date Resolution Status Admit Date Abnormal EKG chronic September 22 10:27am Confusion chronic September 22 10:27am Dyslipidemia chronic September 22 10:27am History of COPD chronic September 10:27am Morbid obesity with BMI of 45.0-49.9, adult chronic September 22, 2024 10:27am [facility] Work Phone: History and physical note Author Dr. Corea [facility] September 08, 2022 3:14am Note Date/Time September 08, 2022 3:14a m [facility] Medical Records Department [address] [place] [id number] H&P Exam - Hospitalist 09/08/22 0306 MR#: [id number] Acct: [id number] Name: HE LAUREANO Rep #:[id number] : 1960 61 From: Jayme Corea DO PCP: Sepideh Patterson MD Status:ADM IN [place] [facility] [id number] - General General Date of Admission: 09/08/22 Date of Service: 09/08/22 Chief Complaint: rigors HPI Narrative HE LAUREANO, is a 61 F who presents with reported rigors.-Going on for the past couple days. Patient was also sent in because her pulse ox was low in the 70s despite using 4 L of oxygen. Patient is to be using a BiPAP at night which she says she uses when she does not need the outlets otherwise she will use it so she can plug her phone and her fan. In the ER, patient sats were in the 90s. Patient was found to have a urinary tract infection and did receive ceftriaxone. Her creatinine was elevated at 1.47, up from 0.54 from July 26. Patient is breathing fine and did not require any additional oxygen beyond her 4L. 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 deficits Seasonal allergies TIA (transient ischemic attack) UTI (urinary tract infection) Vitamin D deficiency Home Medications acetaminophen 325 mg tablet 650 mg PO TID PAIN 05/03/22 [History Last Taken 05/28/22] amitriptyline 25 mg tablet 25 mg PO QODAY DEPRESSION 05/03/22 [History Last Taken 05/26/22] atorvastatin 20 mg tablet 20 mg PO QHS CHOLESTEROL 05/03/22 [History Last Taken 05/27/22] cyclobenzaprine 10 mg tablet 10 mg PO TID MUSCLE SPASMS 05/03/22 [History Last Taken 05/28/22] ergocalciferol (vitamin D2) 1,250 mcg (50,000 unit) capsule (Vitamin D2) 1,250 mcg PO SA SUPPLEMENT 05/03/22 [History Last Taken 05/27/22] famotidine 20 mg tablet 20 mg PO BID GERD 05/03/22 [History Last Taken 05/28/22] fluticasone propionate 50 mcg/actuation nasal spray,suspension 2 spray intranasal BID NASAL CONGESTION 05/03/22 [History Last Taken 05/28/22] lidocaine 4 % topical patch 1 patch topical DAILY PAIN 05/03/22 [History Last Taken 05/28/22] losartan 50 mg tablet 50 mg PO DAILY BLOOD PRESSURE 05/03/22 [History Last Taken 05/28/22] montelukast 10 mg tablet 10 mg PO DAILY ALLERGIES 05/03/22 [History Last Taken 05/28/22] omeprazole 20 mg tablet,delayed release 20 mg PO DAILY GERD 05/03/22 [History Last Taken 05/28/22] roflumilast 500 mcg tablet (Daliresp) 500 mcg PO DAILY ASTHMA 05/03/22 [History Last Taken 05/28/22] sertraline 100 mg tablet (Zoloft) 100 mg PO QHS DEPRESSION 05/03/22 [History Last Taken 05/27/22] tiotropium bromide 2.5 mcg/actuation mist for inhalation (Spiriva Respimat) 2 puff inhalation QHS ASTHMA 05/03/22 [History Last Taken 05/27/22] dicyclomine 10 mg capsule 10 mg PO 4X/DAY #1 cap 05/05/22 [Rx Last Taken 05/28/22] nystatin 100,000 unit/gram topical powder (Nyamyc) 1 applic topical TID affectedareas 05/14/22 [History Last Taken 05/28/22] gabapentin 300 mg capsule 300 mg PO BID NEUROPATHY 05/28/22 [History Last Taken 05/28/22] furosemide 40 mg tablet 40 mg PO DAILY #30 tabs 05/30/22 [Rx Last Taken Unknown] prednisone 20 mg tablet 10 mg PO DAILY 09/08/22 [History Last Taken Unknown] Allergy/AdvReac Type Severity Reaction Status Date / Time aspirin Allergy Other Verified 09/08/22 00:15 black pepper [pepper] Allergy Other Verified 09/08/22 00:15 coconut Allergy Other Verified 09/08/22 00:15 codeine Allergy Other Verified 09/08/22 00:15 ibuprofen Allergy Other Verified 09/08/22 00:15 Influenza Virus Vaccines Allergy Other Verified 09/08/22 00:15 Penicillins Allergy Anaphylaxis Verified 09/08/22 00:15 rice Allergy Other Verified 09/08/22 00:15 tetanus and diphtheria Allergy Other Verified 09/08/22 00:15 toxoids Tetanus Vaccines and Toxoid Allergy Other Verified 09/08/22 00:15 Family History Other CAD (coronary artery disease) COPD (chronic obstructive pulmonary disease) Hypertension Social History housing: assisted Smoking Status: Former smoker alcohol intake: never substance use type: does not use ROS ROS Narrative All review of systems were negative except as mentioned above in the history of present illness and the other review of systems. Vital Signs Vital Signs Vital Signs: 09/08/22 00:03 09/08/22 00:10 09/08/22 01:39 Temperature 36.3 C L Temperature Source Temporal Pulse Rate 107 H 104 H Respiratory Rate 20 H 17 Respiratory Effort Short of Breath Respiratory Depth Normal Respiratory Pattern Normal Blood Pressure 157/102 H Blood Pressure Mean 120 Pulse Ox 91 94 Oxygen Delivery Method Nasal Cannula Nasal Cannula Nasal Cannula Oxygen Flow Rate (L/min) 4 4 4 09/08/22 01:52 09/08/22 02:55 Temperature 36.3 C L 36.4 C L Temperature Source Temporal Temporal Pulse Rate 102 H 105 H Respiratory Rate 18 17 Respiratory Effort Respiratory Depth Respiratory Pattern Blood Pressure 117/105 H 131/94 H Blood Pressure Mean 109 106 Pulse Ox 95 94 Oxygen Delivery Method Nasal Cannula Nasal Cannula Oxygen Flow Rate (L/min) 4 4 Weight Weight: 173 kg Body Mass Index (BMI) 61.5 Physical Exam Const alert and no apparent distress Constitutional Narrative: No conversational dyspnea. No respiratory distress. General Appearance: cooperative Eyes Eyes Narrative: No icterus Neck Neck Narrative: Thick neck tissue. Resp Resp Narrative: Limited but clear anteriorly. Cardio regular rate, regular rhythm, S1 normal heart sound and S2 normal heart sound GI normal to inspection, nondistended, normoactive bowel sounds, soft to palpation, non-tender and non-distended Extremity normal to inspection Skin Skin Narrative: Had a superficial wound under her right pannus. Neuro moves all extremities Sensorium / Orientation: awake and alert Psych affect normal Results Lab / Micro Data Attestation: I reviewed the patient's lab results. Result Diagrams: 09/08/22 00:48 09/08/22 00:48 Labs: Laboratory Results - last 24 hr 09/08/22 00:48: WBC 12.2 H, RBC 3.80 L, Hgb 10.5 L, Hct 36.0 L, MCV 94.7, MCH 27.6, MCHC 29.2 L, RDW Std Deviation 49.4 H, RDW Coeff of David 14.1, Plt Count 235, MPV 11.1, Immature Gran % (Auto) 0.900, Neut % (Auto) 75.3 H, Lymph % (Auto) 15.7 L, Nobles % (Auto) 6.6, Eos % (Auto) 1.3, Baso % (Auto) 0.2, Absolute Neuts (auto) 9.2 H, Absolute Lymphs (auto) 1.91, Nucleated RBC % 0 09/08/22 00:48: Sodium 138, Potassium 4.3, Chloride 91 L, Carbon Dioxide 44.0 H, Anion Gap 3 L, BUN 28 H, Creatinine 1.47 H, Estim Creat Clear Calc 38.10, Est GFR (MDRD) Af Amer 47 L, Est GFR (MDRD) Non-Af 38 L, BUN/Creatinine Ratio 19.0, Glucose 145 H, Calcium 10.5 H, Troponin I High Sens 14 09/08/22 00:48: B-Natriuretic Peptide 8.1 09/08/22 00:48: D-Dimer Quant (PE/DVT) 0.36 09/08/22 01:05: Urine Color Yellow, Urine Clarity Turbid, Urine pH 5.0, Ur Specific [place] 1.020, Urine Protein 100 H, Urine Glucose (UA) Normal, Urine Ketones Negative, Urine Occult Blood 150 H, Urine Nitrite Negative, Urine Bilirubin Negative, Urine Urobilinogen Normal, Ur Leukocyte Esterase 500 H, Urine RBC 0 SEEN, Urine WBC >100 SEEN, Ur Squamous Epith Cells 0 SEEN, Urine Bacteria 4+, Urine Mucus 0 SEEN 09/08/22 01:50: Lactic Acid 1.4 Micro: Microbiology 09/08/22 00:48 Nasal Secretion SARS-CoV-2 & FLU Antigen (Rapid) - Final ABG Data ABG results: ABG 09/08/22 01:52 Specimen Type MAXIM VBG pH 7.32 VBG pO2 22 L VBG HCO3 50 H VBG Total CO2 > 50 H VBG O2 Sat (Calc) 28 L VBG Base Excess 24 H POC Mix VBG pCO2 Pt Tmp 96.8 H* O2 Delivery Device Nasal Can Liter Flow 4.0 Crit Call To/Read Back Yes Blood Gas Notified Whom ED Blood Gas Notified Time 0152 Radiology Impression Chest X-Ray 09/08/22 01:59 IMPRESSION: Likely right-sided pneumonia with concomitant pleural effusion Electronically Signed: Tres Caldwell MD at 2:32 EDT , Assessment & Plan Assessment/Plan (1) UTI (urinary tract infection): PLAN: I suspect this is why the patient is having these rigors. I reviewed the chest x-ray images and they are poor quality as patient is rotated right appreciating pneumonia however. Follow-up on cultures Continue with ceftriaxone (2) Acute kidney injury: PLAN: Clinically, the patient appears dry. Hold furosemide IV fluids for 1 L PLAN: Plan Chronic conditions * Chronic hypercapnic respiratory failure: Not in any acute distress at this time. Patient is to use a BiPAP but she is only using it when she does not need an outlet. Patient may benefit from getting a power strep so that she can plug her phone and fan but also her BiPAP * COPD: Currently stable * Morbid obesity: BMI is 61.6 kg/m? weight loss certainly would be of profound benefit for her * Depression: Continue with Zoloft * GERD: Continue with H2 rome VTE prophylaxis with enoxaparin CODE STATUS: Addressed with the patient. Patient wants to be full code Disposition: Though the patient has a urinary tract infection, her multiple severe comorbidities may limit a fast discharge as there is very high risk for decompensation if not properly observed and ensured that she is stable for discharge. Anticipated length of hospitalization is 48 to 72 hours. Charges/Coding Visit Charges Inpatient E&M: 41064 Init Hosp L3 09/08/22 0314 <Electronically signed by Jayme Corea DO> Cosigner Signature (if applicable): CC: Dr. Jayme Corea DO; Sepideh Patterson MD~ Signed [facility] Work Phone: Hospital Discharge instructions Additional Instructions Our automatic blood pressure cuff was reading 226/205 while our manual is 166/92. Likely inaccurate reading prior to being sent to the emergency department. Continue to monitor with manual if able.[facility] Work Phone: Reason for referral (narrative)No reason for referral information availableWCommunity [facility] Work Phone: Assessments Diagnosis Chronic foot pain, left - Pr imary Peripheral vascular disease (HCC) Unspecified peripheral vascular disease Pain in both lower extremiti es Intermittent claudication (H CC) Other specified symptoms and signs involving the circulatory and respiratory systems Diagnosis Acute exacerbation of chroni c obstructive pulmonary disease (COPD) (HCC) - Primary Obstructive chronic bronchitis with exacerbation Hypokalemia Hypopotassemia Hypomagnesemia Disorders of magnesium metabolism Chronic respiratory failure with hypoxia and hypercapnia (HCC) Infestation by bed bug Other specified infestations Diagnosis Dyspnea on exertion - Primar y Other dyspnea and respiratory abnormality Chest pain at rest Unspecified chest pain Hypertensive heart disease w ith CHF (HCC) Smoking Tobacco use disorder Obesity, Class III, BMI 40-4 9.9 (morbid obesity) (HCC) Diagnosis Pain Generalized pain Diagnosis COPD exacerbation (HCC)- Primary Obstructive chronic bronchitis with exacerbation Acute respiratory acidosis Acidosis Chronic obstructive pulmonary disease, unspecified COPD type (HCC) Acute on chronic respiratory failure with hypoxia and hypercapnia (HCC) Discharge Instructions * Manjeet May MD - 02/12/2017 Chronic Obstructive Pulmonary Disease (COPD): Care Instructions Your Care Instructions Chronic obstructive pulmonary disease (COPD) is a general term for a group of lung diseases, including emphysema and chronic bronchitis. People with COPD have decreased airflow in and out of the lungs, which makes it hard to breathe. The airways also can get clogged with thick mucus. Cigarette smoking is a major cause of COPD. Although there is no cure for COPD, you can slow its progress. Following your treatment plan and taking care of yourself can help you feel better and live longer. Follow-up care is a oliva part of your treatment and safety. Be sure to make and go to all appointments, and call your doctor if you are having problems. It's also a good idea to know your test resultsand keep a list of the medicines you take. How can you care for yourself at home? Staying healthy Do not smoke. This is the most important step you can take to prevent more damage to your lungs. Ifyou need help quitting, talk to your doctor about stop- smoking programs and medicines. These can increase your chances of quitting for good. Avoid colds and flu. Get a pneumococcal vaccine shot. If you have had one before, ask your doctor whether you need a second dose. Get the flu vaccine every fall. If you must be around people with colds or the flu, wash your hands often. Avoid secondhand smoke, air pollution, and high altitudes. Also avoid cold, dry air and hot, humid air. Stay at home with your windows closed when air pollution is bad. Medicines and oxygen therapy Take your medicines exactly as prescribed. Call your doctor if you think you are having a problem with your medicine. You may be taking medicines such as: Bronchodilators. These help open your airways and make breathing easier. Bronchodilators are eithershort-acting (work for 6 to 9 hours) or long-acting (work for 24 hours). You inhale most bronchodilators, so they start to act quickly. Always carry your quick-relief inhaler with you in case you need it while you are away from home. Corticosteroids (prednisone, budesonide). These reduce airway inflammation. They come in pill or inhaled form. You must take these medicines every day for them to work well. A spacer may help you get more inhaled medicine to your lungs. Ask your doctor or pharmacist if a spacer is right for you. If it is, ask how to use it properly. Do not take any vitamins, baci-lpu-dalelyh medicine, or herbal products without talking to your doctor first. If your doctor prescribed antibiotics, take them as directed. Do not stop taking them just because you feel better. You need to take the full course of antibiotics. Oxygen therapy boosts the amount of oxygen in your blood and helps you breathe easier. Use the flowrate your doctor has recommended, and do not change it without talking to your doctor first. Activity Get regular exercise. Walking is an easy way to get exercise. Start out slowly, and walk a little more each day. Pay attention to your breathing. You are exercising too hard if you cannot talk while you are exercising. 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 Learn breathing methods such as breathing through pursed lips to help you become less short of breath. If your doctor has not set you up with a pulmonary rehabilitation program, talk to him or her aboutwhether rehab is right for you. Rehab includes exercise programs, education about your disease and how to manage it, help with diet and other changes, and emotional support. Diet Eat regular, healthy meals. Use bronchodilators about 1 hour before you eat to make it easier to eat. Eat several small meals instead of three large ones. Drink beverages at the end of the meal. Avoid foods that are hard to chew. Eat foods that contain protein so that you do not lose muscle mass. Mental health Talk to your family, friends, or a therapist about your feelings. It is normal to feel frightened, angry, hopeless, helpless, and even guilty. Talking openly about bad feelings can help you cope. If these feelings last, talk to your doctor. When should you call for help? Call 911 anytime you think you may need emergency care. For example, call if: You have severe trouble breathing. Call your doctor now or seek immediate medical care if: You have new or worse trouble breathing. You cough up blood. You have a fever. Watch closely for changes in your health, and be sure to contact your doctor if: You cough more deeply or more often, especially if you notice more mucus or a change in the color of your mucus. You have new or worse swelling in your legs or belly. You are not getting better as expected. Where can you learn more? Log into your personal health record on [email or web address] and enter X915 in the "Education" box to learn more about "Chronic Obstructive Pulmonary Disease (COPD): Care Instructions." Current as of: August 30, 2015 Content Version: 11.2 8579-6973 [employer]. Care instructions adapted under license by your healthcare professional. If you have questions about a medical condition or this instruction, always ask your healthcare professional. [employer] disclaims any warranty or liability for your use of this information. The following attachments cannot be sent through Care Everywhere. * COPD (OMANI) * HYPOKALEMIA (OMANI) in this encounter* Discharge Instr - Other Orders* Yenni Medina RN - 04/01/2020 1:12 PM EST Blow on purple and kennedy trumpet as frequently as possible. * Additional Instructions* Yenni Medina RN - 04/01/2020 Pneumonia: Care Instructions Your Care Instructions Pneumonia is an infection of the lungs. Most cases are caused by infections from bacteria or viruses. Pneumonia may be mild or very severe. If it is caused by bacteria, you will be treated with antibiotics. It may take a few weeks to a few months to recover fully from pneumonia, depending on how sickyou were and whether your overall health is good. Follow-up care is a oliva part of your treatment and safety. Be sure to make and go to all appointments, and call your doctor if you are having problems. It's also a good idea to know your test resultsand keep a list of the medicines you take. How can you care for yourself at home? Take your antibiotics exactly as directed. Do not stop taking the medicine just because you are feeling better. You need to take the full course of antibiotics. Take your medicines exactly as prescribed. Call your doctor if you think you are having a problem with your medicine. Get plenty of rest and sleep. You may feel weak and tired for a while, but your energy level will improve with time. To prevent dehydration, drink plenty of fluids, enough so that your urine is light yellow or clear like water. Choose water and other caffeine-free clear liquids until you feel better. If you have kidney, heart, or liver disease and have to limit fluids, talk with your doctor before you increase the amount of fluids you drink. Take care of your cough so you can rest. A cough that brings up mucus from your lungs is common with pneumonia. It is one way your body gets rid of the infection. But if coughing keeps you from resting or causes severe fatigue and chest-wall pain, talk to your doctor. He or she may suggest that youtake a medicine to reduce the cough. Use a vaporizer or humidifier to add moisture to your bedroom. Follow the directions for cleaning the machine. Do not smoke or allow others to smoke around you. Smoke will make your cough last longer. If you need help quitting, talk to your doctor about stop-smoking programs and medicines. These can increase your chances of quitting for good. Take an xpar-pgw-zsqdfgd pain medicine, such as acetaminophen (Tylenol), ibuprofen (Advil, Motrin),or naproxen (Aleve). Read and follow all instructions on the label. Do not take two or more pain medicines at the same time unless the doctor told you to. Many pain medicines have acetaminophen, which is Tylenol. Too much acetaminophen (Tylenol) can be harmful. If you were given a spirometer to measure how well your lungs are working, use it as instructed. This can help your doctor tell how your recovery is going. To prevent pneumonia in the future, talk to your doctor about getting a flu vaccine (once a year) and a pneumococcal vaccine (one time only for most people). When should you call for help? Call 911 anytime you think you may need emergency care. For example, call if: You have severe trouble breathing. Call your doctor now or seek immediate medical care if: You cough up dark brown or bloody mucus (sputum). You have new or worse trouble breathing. You are dizzy or lightheaded, or you feel like you may faint. Watch closely for changes in your health, and be sure to contact your doctor if: You have a new or higher fever. You are coughing more deeply or more often. You are not getting better after 2 days (48 hours). You do not get better as expected. Where can you learn more? Log into your personal health record on [email or web address]://[email or web address] and enter D336 in the "Education" box to learn more about "Pneumonia: Care Instructions." Current as of: June 02, 2019 Content Version: 12.7 [employer]. Care instructions adapted under license by your healthcare professional. If you have questions about a medical condition or this instruction, always ask your healthcare professional. [employer] disclaims any warranty or liability for your use of this information. COPD Exacerbation Plan: Care Instructions Your Care Instructions If you have chronic obstructive pulmonary disease (COPD), your usual shortness of breath could suddenly get worse. You may start coughing more and have more mucus. This flare-up is called a COPD exacerbation (say "te-PQN-ed-BAY-shun"). A lung infection or air pollution could set off an exacerbation. Sometimes it can happen after a quick change in temperature or being around chemicals. Work with your doctor to make a plan for dealing with an exacerbation. You can better manage it if you plan ahead. Follow-up care is a oliva part of your treatment and safety. Be sure to make and go to all appointments, and call your doctor if you are having problems. It's also a good idea to know your test resultsand keep a list of the medicines you take. How can you care for yourself at home? During an exacerbation Do not panic if you start to have one. Quick treatment at home may help you prevent serious breathing problems. If you have a COPD exacerbation plan that you developed with your doctor, follow it. Take your medicines exactly as your doctor tells you. ? Use your inhaler as directed by your doctor. If your symptoms do not get better after you use your medicine, have someone take you to the emergency room. Call an ambulance if necessary. ? With inhaled medicines, a spacer or a nebulizer may help you get more medicine to your lungs. Askyour doctor or pharmacist how to use them properly. Practice using the spacer in front of a mirror before you have an exacerbation. This may help you get the medicine into your lungs quickly. ? If your doctor has given you steroid pills, take them as directed. ? Your doctor may have given you a prescription for antibiotics, which you can fill if you need it. ? Talk to your doctor if you have any problems with your medicine. And call your doctor if you haveto use your antibiotic or steroid pills. Preventing an exacerbation Do not smoke. This is the most important step you can take to prevent more damage to your lungs andprevent problems. If you already smoke, it is never too late to stop. If you need help quitting, talk to your doctor about stop-smoking programs and medicines. These can increase your chances of quitting for good. Take your daily medicines as prescribed. Avoid colds and flu. ? Get a pneumococcal vaccine. ? Get a flu vaccine each year, as soon as it is available. Ask those you live or work with to do the same, so they will not get the flu and infect you. ? Try to stay away from people with colds or the flu. ? Wash your hands often. Avoid secondhand smoke; air pollution; cold, dry air; hot, humid air; and high altitudes. Stay at home with your windows closed when air pollution is bad. Learn breathing techniques for COPD, such as breathing through pursed lips. These techniques can help you breathe easier during an exacerbation. When should you call for help? Call 911 anytime you think you may need emergency care. For example, call if: You have severe trouble breathing. You have severe chest pain. Call your doctor now or seek immediate medical care if: You have new or worse shortness of breath. You develop new chest pain. You are coughing more deeply or more often, especially if you notice more mucus or a change in the color of your mucus. You cough up blood. You have new or increased swelling in your legs or belly. You have a fever. Watch closely for changes in your health, and be sure to contact your doctor if: You need to use your antibiotic or steroid pills. Your symptoms are getting worse. Where can you learn more? Log into your personal health record on [email or web address] and enter U536 in the "Education" box to learn more about "COPD Exacerbation Plan: Care Instructions." Current as of: June 02, 2019 Content Version: 12.7 [employer]. Care instructions adapted under license by your healthcare professional. If you have questions about a medical condition or this instruction, always ask your healthcare professional. [employer] disclaims any warranty or liability for your use of this information. documented in this encounter* Discharge Instr - Other Orders* Yenni Medina RN - 04/01/2020 1:12 PM EST Blow on purple and kennedy trumpet as frequently as possible. * Additional Instructions* Yenni Medina RN - 04/01/2020 Pneumonia: Care Instructions Your Care Instructions Pneumonia is an infection of the lungs. Most cases are caused by infections from bacteria or viruses. Pneumonia may be mild or very severe. If it is caused by bacteria, you will be treated with antibiotics. It may take a few weeks to a few months to recover fully from pneumonia, depending on how sickyou were and whether your overall health is good. Follow-up care is a oliva part of your treatment and safety. Be sure to make and go to all appointments, and call your doctor if you are having problems. It's also a good idea to know your test resultsand keep a list of the medicines you take. How can you care for yourself at home? Take your antibiotics exactly as directed. Do not stop taking the medicine just because you are feeling better. You need to take the full course of antibiotics. Take your medicines exactly as prescribed. Call your doctor if you think you are having a problem with your medicine. Get plenty of rest and sleep. You may feel weak and tired for a while, but your energy level will improve with time. To prevent dehydration, drink plenty of fluids, enough so that your urine is light yellow or clear like water. Choose water and other caffeine-free clear liquids until you feel better. If you have kidney, heart, or liver disease and have to limit fluids, talk with your doctor before you increase the amount of fluids you drink. Take care of your cough so you can rest. A cough that brings up mucus from your lungs is common with pneumonia. It is one way your body gets rid of the infection. But if coughing keeps you from resting or causes severe fatigue and chest-wall pain, talk to your doctor. He or she may suggest that youtake a medicine to reduce the cough. Use a vaporizer or humidifier to add moisture to your bedroom. Follow the directions for cleaning the machine. Do not smoke or allow others to smoke around you. Smoke will make your cough last longer. If you need help quitting, talk to your doctor about stop-smoking programs and medicines. These can increase your chances of quitting for good. Take an ojxi-tdi-zufujtk pain medicine, such as acetaminophen (Tylenol), ibuprofen (Advil, Motrin),or naproxen (Aleve). Read and follow all instructions on the label. Do not take two or more pain medicines at the same time unless the doctor told you to. Many pain medicines have acetaminophen, which is Tylenol. Too much acetaminophen (Tylenol) can be harmful. If you were given a spirometer to measure how well your lungs are working, use it as instructed. This can help your doctor tell how your recovery is going. To prevent pneumonia in the future, talk to your doctor about getting a flu vaccine (once a year) and a pneumococcal vaccine (one time only for most people). When should you call for help? Call 911 anytime you think you may need emergency care. For example, call if: You have severe trouble breathing. Call your doctor now or seek immediate medical care if: You cough up dark brown or bloody mucus (sputum). You have new or worse trouble breathing. You are dizzy or lightheaded, or you feel like you may faint. Watch closely for changes in your health, and be sure to contact your doctor if: You have a new or higher fever. You are coughing more deeply or more often. You are not getting better after 2 days (48 hours). You do not get better as expected. Where can you learn more? Log into your personal health record on [email or web address] and enter D336 in the "Education" box to learn more about "Pneumonia: Care Instructions." Current as of: June 02, 2019 Content Version: 12.7 [employer]. Care instructions adapted under license by your healthcare professional. If you have questions about a medical condition or this instruction, always ask your healthcare professional. [employer] disclaims any warranty or liability for your use of this information. COPD Exacerbation Plan: Care Instructions Your Care Instructions If you have chronic obstructive pulmonary disease (COPD), your usual shortness of breath could suddenly get worse. You may start coughing more and have more mucus. This flare-up is called a COPD exacerbation (say "bp-CSM-xg-BAY-shun"). A lung infection or air pollution could set off an exacerbation. Sometimes it can happen after a quick change in temperature or being around chemicals. Work with your doctor to make a plan for dealing with an exacerbation. You can better manage it if you plan ahead. Follow-up care is a oliva part of your treatment and safety. Be sure to make and go to all appointments, and call your doctor if you are having problems. It's also a good idea to know your test resultsand keep a list of the medicines you take. How can you care for yourself at home? During an exacerbation Do not panic if you start to have one. Quick treatment at home may help you prevent serious breathing problems. If you have a COPD exacerbation plan that you developed with your doctor, follow it. Take your medicines exactly as your doctor tells you. ? Use your inhaler as directed by your doctor. If your symptoms do not get better after you use your medicine, have someone take you to the emergency room. Call an ambulance if necessary. ? With inhaled medicines, a spacer or a nebulizer may help you get more medicine to your lungs. Askyour doctor or pharmacist how to use them properly. Practice using the spacer in front of a mirror before you have an exacerbation. This may help you get the medicine into your lungs quickly. ? If your doctor has given you steroid pills, take them as directed. ? Your doctor may have given you a prescription for antibiotics, which you can fill if you need it. ? Talk to your doctor if you have any problems with your medicine. And call your doctor if you haveto use your antibiotic or steroid pills. Preventing an exacerbation Do not smoke. This is the most important step you can take to prevent more damage to your lungs andprevent problems. If you already smoke, it is never too late to stop. If you need help quitting, talk to your doctor about stop-smoking programs and medicines. These can increase your chances of quitting for good. Take your daily medicines as prescribed. Avoid colds and flu. ? Get a pneumococcal vaccine. ? Get a flu vaccine each year, as soon as it is available. Ask those you live or work with to do the same, so they will not get the flu and infect you. ? Try to stay away from people with colds or the flu. ? Wash your hands often. Avoid secondhand smoke; air pollution; cold, dry air; hot, humid air; and high altitudes. Stay at home with your windows closed when air pollution is bad. Learn breathing techniques for COPD, such as breathing through pursed lips. These techniques can help you breathe easier during an exacerbation. When should you call for help? Call 911 anytime you think you may need emergency care. For example, call if: You have severe trouble breathing. You have severe chest pain. Call your doctor now or seek immediate medical care if: You have new or worse shortness of breath. You develop new chest pain. You are coughing more deeply or more often, especially if you notice more mucus or a change in the color of your mucus. You cough up blood. You have new or increased swelling in your legs or belly. You have a fever. Watch closely for changes in your health, and be sure to contact your doctor if: You need to use your antibiotic or steroid pills. Your symptoms are getting worse. Where can you learn more? Log into your personal health record on [email or web address] and enter U536 in the "Education" box to learn more about "COPD Exacerbation Plan: Care Instructions." Current as of: June 02, 2019 Content Version: 12.7 [employer]. Care instructions adapted under license by your healthcare professional. If you have questions about a medical condition or this instruction, always ask your healthcare professional. [employer] disclaims any warranty or liability for your use of this information. 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 Advance Directives and Livin g Will 03/27/2020 1:13 AM Latest Code Status on File Code Status Date Activated Date Inactivated Comments Full Code - Unverified 10/30/2016 12:05 PM 11/03/2016 3: 14 PM Full Code 08/02/2015 5:44 AM 08/02/2015 3:16 PM Documents on File Type Date 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 Advance Directives and Livin g Will 03/27/2020 1:13 AM Latest Code Status on File Code Status Date Activated Date Inactivated Comments Full Code - Unverified 10/30/2016 12:05 PM 11/03/2016 3: 14 PM Full Code 08/02/2015 5:44 AM 08/02/2015 3:16 PM Documents on File Type Date 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 Advance Directives and Livin g Will 05/09/2021 1:18 AM Latest Code Status on File Date Activated Date Inactivated Comments 10/30/2016 12:05 PM 11/03/2016 3:14 PM Full Code Date Activated Date Inactivated Comments 08/02/2015 5:44 AM 08/02/2015 3:16 PM Advance Directive Response Recorded Date/ Time Name of Medical Power of Door Furring Installer Evens Saleem, friend POPark May 03, 2022 10:15am Living Will Yes May 03 10:15am Power of Door Furring Installer Yes May 03, 2022 10:15am Advance Directive Response Recorded Date/ Time Name of Medical Power of Door Furring Installer birgit Pryor SUNG May 03, 2022 1:59pm Living Will Yes May 03 1:59pm Power of Door Furring Installer Yes May 03, 2022 1:59pm Advance Directive Response Recorded Date/ Time Name of Medical Power of Door Furring Installer birgit Pryor SUNG May 03, 2022 1:59pm Living Will No May 14 9:40am Power of Door Furring Installer No May 14, 2022 9:40am Advance Directive Response Recorded Date/ Time Name of Medical Power of Door Furring Installer birgit Pryor SUNG May 03, 2022 1:59pm Living Will No May 14 1:00pm Power of Door Furring Installer No May 14, 2022 1:00pm Advance Directive Response Recorded Date/ Time Name of Medical Power of Door Furring Installer Evens Pinkerbirgit SUNG May 03, 2022 1:59pm Living Will No May 28 023 11:15am Power of Door Furring Installer No May 28, 2022 11:15am Advance Directive Response Recorded Date/ Time Name of Medical Power of Door Furring Installer Evens Pinkerbirgit SUNG May 03, 2022 1:59pm Name of Medical Power of Door Furring Installer Evens Aaroner May 28, 2022 5:46pm Living Will Yes May 28, 023 5:46pm Power of Door Furring Installer Yes May 28, 2022 5:46pm Advance Directive Response Recorded Date/ Time Name of Medical Power of Door Furring Installer Evens Pinkerbirgit SUNG May 03, 2022 2:59pm Name of Medical Power of Door Furring Installer Evens Leonardo May 28, 2022 6:46pm Living Will Yes May 28, 2 023 6:46pm Power of Door Furring Installer Yes May 28, 2022 6:46pm Advance Directive Response Recorded Date/ Time Name of Medical Power of Door Furring Installer Evens Leonardo May 28, 2022 6:46pm Name of Medical Power of Door Furring Installer Evens Aaroner September 08, 2022 12:10am Living Will Yes September 08, 2022 1 2:10am Power of Door Furring Installer Yes September 08, 2022 12:10am Advance Directive Response Recorded Date/ Time Name of Medical Power of Door Furring Installer Evens Leonardo May 28, 2022 6:46pm Name of Medical Power of Door Furring Installer evens leonardo September 08, 2022 3:58am Living Will Yes September 08, 2022 3 :58am Power of Door Furring Installer Yes September 08, 2022 3:58am Advance Directive Response Recorded Date/ Time Name of Medical Power of Door Furring Installer evens leonardo September 08, 2022 3:58am Living Will No December 02 12:59am Power of Door Furring Installer No December 02 12:59am Advance Directive Response Recorded Date/ Time Living Will No January 17 10:07pm Power of Door Furring Installer No January 17, 2023 10:07pm Advance Directive Response Recorded Date/ Time Living Will No January 17 9:07pm Power of Door Furring Installer No January 17, 2023 9:07pm Advance Directive Response Recorded Date/ Time Name of Medical Power of Door Furring Installer Hernandez ? April 16, 2023 6:08pm Living Will Yes April 16 6:08pm Power of Door Furring Installer Yes April 16 024 6:08pm Advance Directive Response Recorded Date/ Time Name of Medical Power of Door Furring Installer Hernandez ? April 16, 2023 7:08pm Living Will No July 26, 2023 11:58am Power of Door Furring Installer No July 25 11:58am Advance Directive Response Recorded Date/ Time Name of Medical Power of Door Furring Installer Hernandez ? April 16, 2023 7:08pm Living Will No July 26, 2023 4:35pm Power of Door Furring Installer No July 25 4:35pm History of Present Illness * Casie Ross LISW-Sondra - 04/12/2018 11:53 AM EST Patient is linked with the [facility] Waiver and has an [facility] Waiver caseworker intake, Paula Callejas, . The caseworker intake is working with the patient to resolve the issue of home accessibility. in this encounter* Naman Spivey MD - 12/21/2016 4:35 PM EDT Formatting of this note may be different from the original. ASSESSMENT: Dyspnea on exertion Patient has progressive dyspnea for several days. It is out of proportion to exertion. There is no resting dyspnea. It is of moderate severity. Has not gained weight and has intermittent edema. I am recommending stress test for evaluation of any significant CAD/myocardial ischemia. I am also recommending to continue and optimize medial therapy according to patient's response and tolerance. Obesity, Class III, BMI 40-49.9 (morbid obesity) ([facility]) Counseling for weight reduction was given to the patient. I discussed various strategies of weight loss including dietary changes and exercise. Dietary changes including reducing calorie intake to nomore than 2000 Kcal / day. Increasing fibre content, reducing salt intake and balanced diet and timely eating habits were discussed in detail. Hypertensive heart disease with CHF ([facility]) Blood pressure is optimally controlled. JNC guideline for blood pressure goals was discussed with the patient. DASH diet was advised. Keep record of blood pressure regularly and report to PCP if persistently abnormal. Continue and optimize medical therapy as per patient's response and tolerance foroptimal blood pressure control. Adjust the dose of diuretic as per renal function and fluid status. Keep serum potassium and magnesium more than 4 and 2 respectively. Monitor renal function closely. Smoking Counseling for smoking cessation given to patient. Informed of pharmacologic and non-pharmacologic methods of management of this addictive behavior. Patient expressed desire to stop smoking. PLAN AND RECOMMENDATIONS: I discussed with the patient and answered questions to the best of my ability. I personally reviewed the recent laboratory and radiological reports. I reviewed the current medications with patient. Reconcilliation of current medications was performed in the electronic medical record (EMR). Patient told me that she is adhering to the medical regimen prescribed. She seems to understand and agrees. Plan as above. I am also recommending to continue and optimize current cardiovascular medications asper patient's response and tolerance. Diet and exercise programs were discussed as per [place] [employer] (ACC)/[place] [employer] Association (AHA) guidelines.I will see the patient for follow up after the investigational tests are completed. REASON FOR EVALUATION AND TREATMENT: Chief Complaint Patient presents with Hypertension Reestablish care last seen 04/07/14 HISTORY OF PRESENT ILNESS: He Laureano is an 56 y.o. female that has a past medical history of Anemia; Anxiety; Arthritis;Asthma; Cancer ([facility]); Cataract; CHF (congestive heart failure) ([facility]); COPD (chronic obstructive pulmonary disease) ([facility]); Depression; Dermatitis; Disease of thyroid gland; GERD (gastroesophageal reflux disease); Heart attack (HCC); Heart murmur; History of stress test; Hyperlipidemia; Hypertension;Injury of back; Neuromuscular disorder (HCC); Oxygen dependent; Peptic ulceration; PMB (postmenopausal bleeding) (07/19/2015); Simple endometrial hyperplasia (08/04/2015); and Stroke ([facility]). She presents for evaluation and management, at the request of Dr. Andrew, for the evaluation of dyspnea. She is complaining of recurrent chest pain yes. Chest pain is located in the substernal and precordial region. Chest pain is non-radiating yes. There is no throat tightness, jaw pain or arm pain. Inter-scapular pain no. Diaphoresis no. Dyspnea yes. Patient has progressive dyspnea for several days. It is out of proportion to exertion. There is no resting dyspnea. It is of moderate severity. Has not gained weight and has intermittent edema. Orthopnea or paroxysmal nocturnal dyspnea (PND) no. Palpitation, dizziness or syncope no. Pedal edema yes. Recent fever or chills no. Chest trauma no. Redness in eyes no. Rhinorrhea no. Sore throat no. PAST MEDICAL/SURGICAL HISTORY: Past Medical History: Diagnosis Date Anemia Anxiety Arthritis Asthma Cancer (HCC) breast at 22 yrs old Cataract CHF (congestive heart failure) ([facility]) COPD (chronic obstructive pulmonary disease) ([facility]) Depression Dermatitis Disease of thyroid gland GERD (gastroesophageal reflux disease) Heart attack (HCC) Heart murmur History of stress test Hyperlipidemia Hypertension Injury of back Neuromuscular disorder (HCC) Oxygen dependent 2-3 liters at all times Peptic ulceration 13 peptic PMB (postmenopausal bleeding) 07/19/2015 Simple endometrial hyperplasia 08/04/2015 Stroke ([facility]) mini Past Surgical History: Procedure Laterality Date HYSTEROSCOPY W/ DILATATION AND CURETTAGE N/A 08/02/2015 Procedure: DILATION AND CURETTAGE; Surgeon: Reilly Box MD; [place] [facility] [place]; Service: TUBAL LIGATION PERSONAL HISTORY: History Smoking Status Current Every Day Smoker Packs/day: 1.00 Years: 25.00 Types: Cigarettes Smokeless Tobacco Never Used Comment: states a pk every 2 days History Alcohol Use No SOCIAL HISTORY: Social History Social History Marital status: Spouse name: N/A Number of children: N/A Years of education: N/A Occupational History Not on file. Social History Main Topics Smoking status: Current Every Day Smoker Packs/day: 1.00 Years: 25.00 Types: Cigarettes Smokeless tobacco: Never Used Comment: states a pk every 2 days Alcohol use No Drug use: No Sexual activity: Not Currently Other Topics Concern Not on file Social History Narrative FAMILY HISTORY OF PREMATURE CORONARY ARTERY DISEASE: Family History Problem Relation Age of Onset Arthritis Mother Cancer Mother uterine COPD Mother Diabetes Mother Heart disease Mother Cystic fibrosis Sister Cystic fibrosis Brother Diabetes Brother Alcohol abuse Son Family history is negative for premature coronary artery disease. CURRENT MEDICATIONS: Current Outpatient Prescriptions: albuterol 90 mcg/actuation inhaler, Inhale 2 puffs every 6 (six) hours as needed for wheezing., Disp: , Rfl: atorvastatin (LIPITOR) 20 MG tablet, Take 20 mg by mouth nightly., Disp: , Rfl: benzonatate (TESSALON) 200 MG capsule, Take 200 mg by mouth 3 (three) times a day as needed for cough., Disp: , Rfl: budesonide-formoterol (SYMBICORT) 160-4.5 mcg/actuation inhaler, Inhale 2 puffs 2 (two) times a day., Disp: , Rfl: furosemide (LASIX) 40 MG tablet, Take 40 mg by mouth 2 (two) times a day., Disp: , Rfl: ipratropium-albuterol (DUO-NEB) 0.5-2.5 mg/3 ml nebulizer, Take 3 mL by nebulization every 4 to 6 hours as needed for wheezing., Disp: , Rfl: losartan (COZAAR) 50 MG tablet, Take 50 mg by mouth daily., Disp: , Rfl: megestrol (MEGACE) 40 MG tablet, Take 40 mg by mouth as needed ., Disp: , Rfl: montelukast (SINGULAIR) 10 mg tablet, Take 10 mg by mouth daily., Disp: , Rfl: pantoprazole (PROTONIX) 20 MG tablet, Take 20 mg by mouth daily., Disp: , Rfl: 0 potassium chloride (K-DUR) 10 MEQ CR tablet, Take 40 mEq by mouth daily., Disp: , Rfl: 0 roflumilast (DALIRESP) 500 mcg tablet, Take 500 mcg by mouth daily., Disp: , Rfl: SPIRIVA WITH HANDIHALER 18 mcg inhalation capsule, , Disp: , Rfl: sucralfate (CARAFATE) 100 mg/mL suspension, Take 1 g by mouth 4 (four) times a day before meals., Disp: , Rfl: ammonium lactate (LAC-HYDRIN) 12 % lotion, , Disp: , Rfl: 0 ALLERGIES: Allergies Allergen Reactions Aspirin Codeine Ibuprofen Penicillin CARDIAC RISK FACTORS: Hypertension Yes , Diabetes mellitus No , Smoking Yes, Hypercholesterolemia No. Family history of premature coronary artery disease No. REVIEW OF SYSTEMS (ROS): She is complaining of recurrent chest pain yes. Chest pain is located in the substernal and precordial region. Chest pain is non-radiating yes. There is no throat tightness, jaw pain or arm pain. Inter-scapular pain no. Diaphoresis no. Dyspnea yes. Orthopnea or paroxysmal nocturnal dyspnea (PND) no. Palpitation, dizziness or syncope no. Pedal edema yes. Recent fever or chills no. Chest trauma no.Redness in eyes no. Rhinorrhea no. Sore throat no. No involuntary weight loss. Pulmonary: No cough or hemoptysis. Gastrointestinal: Appetite is satisfactory. No abdominal pain, nausea, vomiting, diarrhea, hematemesis, melena or hematochezia. Musculoskeletal: No myalgia or arthralgia. No claudication in the legs. Genitourinary: No acute urinary symptoms. No hematuria. Neurological: No tremor. No symptoms or transient ischemic attack (TIA) or cerebrovascular accident(CVA) Integumentary: No skin rash. Psychological: He is not feeling depressed. Rest of review of systems (ROS) is normal. PHYSICAL EXAMINATION: BP (!) 144/88 Pulse (!) 104 Resp 17 Ht 5' 7" SpO2 (!) 88%, There is no height or weight on file to calculate BMI.. Patient is well nourished and well developed. General appearance is good. Patient is in no acute distress. Mood/affect normal. Patient is oriented to time, place and person. Patient s judgement and insight in illness appears good. Gait is normal. There is no conjunctival or corneal injection. No xanthelasma. Oral mucosa is moist. Patient does not have dentures. Neck is supple. There is jugular venous distension. No thyromegaly. No lymphadenopathy in neck or axilla noted. Carotid upstrokes are symmetrical bilaterally. Skin turgor is normal. There is no skin rash. Respirat ory efforts are non-labored without use of accessory muscles of respiration. Lungs are clear to percussion and auscultation. There is no adventitious sound. There is good air entry bilaterally. Heartrhythm is regular. There is no precordial thrill, parasternal heave or chest wall tenderness. Pointof maximal cardiac impulse is located in the left fifth intercostal space, 2 cm inside the mid-clavicular line. The first heart sound is normal. The second heart sound is split. S-4 gallop is present. A grade II/ systolic murmur is present at the base of heart. There is no rub or click. Abdomen is soft and non-tender. Bowel sounds are present. There is no hepato-splenomegaly. No abdominal bruit. No hernia. There is no ankle edema. Muscle tone and strength are normal and symmetrical bilaterally. Range of motion in the joints is satisfactory and symmetrical bilaterally. Capillary refills are normal. Femoral and pedal pulses are symmetrical bilaterally. No clubbing or cyanosis is noted in the digits. LABS AND RADIOLOGICAL REPORTS: I have personally and independently reviewed the labs/image/tracing and the results are as follows: EKG - Normal sinus rhythm. Nonspecific ST-T wave changes. ECHO-DOPPLER study of heart - Normal left ventricular systolic function. Concentric LVH. No significant valvular heart disease. Thank you for allowing me to participate in the care of this patient. Naman Spivey M.D.,F.A.C.C. in this encounter* Yenni Medina RN - 04/01/2020 2:05 PM EST Written home instructions given and explained. Patient states Understanding. IV and mmonitor removed. Patient has all personal belongings at time of discharge. * Nikkie Horowitz LSW - 04/01/2020 11:02 AM EST AVS faxed to [facility] / Home care waiver caseworker intake * Yasmin Kaminski PTA - 04/01/2020 10:28 AM EST Physical Therapy PHYSICAL THERAPY TREATMENT NOTE Skilled Therapy Needs After Discharge Anticipate Resolution of Current Assessment Limitations Including: Social Support, Pain, MechanicalBarriers Are Skilled Therapy Services Needed After Discharge: Yes Intensity of Skilled Therapy: 2-3 days per week Anticipated Duration of Skilled Therapy: Duration 10 - 30 days DME Recommendation: Wheeled walker DME Rationale: Patient's condition prevents him/her from accomplishing ADL without recommended equipment Rehab Potential: Good Outcomes Measures Prior Function - Basic Mobility Raw Score: 21 Points Prior Function - Basic Mobility % Impaired: 29.52% functionally impaired AM-PAC - Basic Mobility Raw Score: AM-PAC - Basic Mobility % Impaired: Activity Tolerance Therapy Precautions Orthotic Devices: No Weight Bearing Status: WFL General Rehab Precautions: Fall risk Pt's needs met, call light in reach. RN notified of pt's progress. All PT activities performed in preparation for discharge I utilized the following PPE throughout this therapy session: Gloves, Surgical mask and Safety glasses Fall risk of 3, card updated, x 1 alarm donned. Exercise Ankle Pumps: 15 Quad Sets: 15 Glute Sets: 15 Hip Abduction: 15 Skilled Intervention: pt education for ex technique Home Living Type of Home: House Home Layout: One level, Ramped entrance Bathroom Accessibility: Accessible Home Equipment: Wheelchair-manual Additional Comments: Patient uses w/c for long distances. She walks short distances from bedroom todining room and back with no device. Prior Level of Function Level of [place]: Needs assistance with ADLs, Needs assistance with homemaking Lives With: Significant other Receives Help From: stadium attendant(Aide every day) ADL Assistance: Needs assistance Homemaking Assistance: Needs assistance For complete objective data, detailed plan of care and patient education refer to: PT EVALUATION flow sheet, PT TREATMENT flow sheet, patient Plan of Care, Plan of Care progress note, and Patient Education. This note stands as the current Discharge Summary upon patient discharge from the hospital or completion of Physical Therapy Plan of Care. * Yamini Bowden RRT - 04/01/2020 9:30 AM EST ABG done on 03/31/20 at 1325 on 4lpm nasal cannula. PCO2 was 73.9 * Pooja Delaney RN - 04/01/2020 9:14 AM EST COMPLEX DISCHARGE Date: 04/01/2020 Time: 9:14 AM Patient Name: He Laureano Date of : 1960 Sex: Female Pt requiring Bipap for home use. Overnight pulse oxymetry study faxed to [place] [facility], order and F2F complete. [place] [facility] will deliver to pt's home, will coordinate time with pt. [facility] Disposition D/C Disposition: Home Health Care Services Related to Current Admission?: No Agency/Destination: Other([facility]) Home Care Needs : Home health care HME: BI-PAP Transportation Type: Ambulance Transportation Company/Agency Name: [employer] [facility] Reason for Choice: Currently with agency * Yasmin Kaminski, PUBLIC RELATIONS ACCOUNT SUPERVISOR - 03/31/2020 1:49 PM EST Physical Therapy PHYSICAL THERAPY TREATMENT NOTE Skilled Therapy Needs After Discharge Anticipate Resolution of Current Assessment Limitations Including: Social Support, Pain, MechanicalBarriers Are Skilled Therapy Services Needed After Discharge: Yes Intensity of Skilled Therapy: 2-3 days per week Anticipated Duration of Skilled Therapy: Duration 10 - 30 days DME Recommendation: Wheeled walker DME Rationale: Patient's condition prevents him/her from accomplishing ADL without recommended equipment Rehab Potential: Good Outcomes Measures Prior Function - Basic Mobility Raw Score: 21 Points Prior Function - Basic Mobility % Impaired: 29.52% functionally impaired AM-PAC - Basic Mobility Raw Score: 14 Points AM-PAC - Basic Mobility % Impaired: 53.86% functionally impaired The patient's AMPAC score remains the same. However, the patient was able to provide more assistance with transfers, requiring less physical and verbal cues for completion. The patient is demonstrating improved function and mobility although the AMPAC score does not reflect this. Therapy Precautions Orthotic Devices: No Weight Bearing Status: WFL General Rehab Precautions: Fall risk Pt's needs met, call light in reach. RN notified of pt's progress. All PT activities performed in preparation for discharge The patient's AMPAC score remains the same. However, the patient was able to provide more assistance with transfers, requiring less physical and verbal cues for completion. The patient is demonstrating improved function and mobility although the AMPAC score does not reflect this. Balance Sitting Balance - Static: Supports self independantly with both upper extremities Sitting Balance - Dynamic: Moves / returns trunkal midpoint 1-2 inches in multiple planes Standing Balance - Static: Supports self independantly with both upper extremities Standing Balance - Dynamic: Moves / returns trunkal midpoint 1-2 inches in multiple planes Bed Mobility Rolling: Mod Supine to Sit: Mod Sit to Supine: (pt in chair after tx) Skilled Intervention: pt educatin for sequencing and using hand rail, needs reinforcement Transfers Sit to Stand: Min Skilled Intervention: pt education for hand placement, needs reinforcement, pt didn't follow instruction 2 out of 2 times Gait/Locomotion Gait Assistance: Contact guard Assistive Device: Wheeled walker(gait belt) Distance: 3 Feet Pattern: Step to, R decreased step length, L decreased step length, Forward flexed Skilled Intervention: pt education for increasing mobility, needs reinforcement Exercise Seated Exercises: 15(PF/DF, LAQ, Marches, ABD) Skilled Intervention: pt education for ex technique Home Living Type of Home: House Home Layout: One level, Ramped entrance Bathroom Accessibility: Accessible Home Equipment: Wheelchair-manual Additional Comments: Patient uses w/c for long distances. She walks short distances from bedroom todining room and back with no device. Prior Level of Function Level of [place]: Needs assistance with ADLs, Needs assistance with homemaking Lives With: Significant other Receives Help From: stadium attendant(Aide every day) ADL Assistance: Needs assistance Homemaking Assistance: Needs assistance For complete objective data, detailed plan of care and patient education refer to: PT EVALUATION flow sheet, PT TREATMENT flow sheet, patient Plan of Care, Plan of Care progress note, and Patient Education. This note stands as the current Discharge Summary upon patient discharge from the hospital or completion of Physical Therapy Plan of Care. * Joni Short MD - 03/31/2020 11:52 AM EST Patient is afebrile. Vital signs are stable. She states she is feeling much better Exam she is alert and she is off the BiPAP she is on 5 L of nasal cannula Lungs seem pretty clear Exam S1-S2 grade 2 or 6 systolic murmur Abdomen is soft Pression and plan #1 exacerbation of COPD 2. Community-acquired pneumonia 3. CO2 narcosis with altered mentation seems to be better but I think she would really benefit froma BiPAP study 4 obesity 5. We will do a overnight pulse oximetry study to see how low the oxygen drops and consideration for BiPAP on the basis of COPD and pneumonia She does not have a diagnosis of sleep apnea at this time but that is a possibility and that could be looked into on an outpatient basis 6. Morbid obesity 7. CHF 8. Anxiety/ depression 9. Chronic hypoxic respiratory failure 10. Generalized weakness * Nikkie Horowitz LSW - 03/31/2020 11:31 AM EST Met w/ pt Pt plans to return home w/ Significant -who she says has ability to help her She reports minimal activity, mobility PUBLIC RELATIONS ACCOUNT SUPERVISOR Currently is assist of two to BS but pt said she has that kind of help at home Offered SNF short term- she declined She states her waiver caseworker intake has been mentioned SNF - pt states she wants to try home for a month She has aide daily She uses w/c service to go to appts ( and said aide goes w/ her ) She is receptive to therapy at home Will request PT OT orders ordering nocturnal sleep study for bipap at [facility],e 116p left message updated summer wa caseworker intake [phone] Soc wk requested call back ab which agency to use for home therapies 1515 spoke w/ summer /- [facility] can provide the therapy ( tho home condition maymake it difficult per summer ) Fax AVS / discharge bundle to summer at [phone] and she will forward it to [facility] start of care will be Saturday 04/07 Engineering Administrator has been approved and will be completed in near future * Cornell Webber MD - 03/31/2020 6:14 AM EST Pulmonary Medicine Follow Up Consult Note Reason for Consultation: COPD exacerbation, inability to wean off BiPAP Impression and Recommendations Acute on chronic respiratory failure Baseline COPD 4 L, Baseline MARISOL but not on CPAP Congestive heart failure acute exacerbation - xray to me shows vascular congestion and likely L effusion to some level - Review of ABGs shows PCO2 chroniclally is probably 70s-80s even - diuresed well on 03/30/20 with the lasix and acetazolamide and improved respiratory status - Recommend to change to prednisone 60 mg daily and wean on discharge - continue scheduled duoneb, symbicort, empiric levaquin (her xray findings could also represent some level of atyical infection - I will sign off given improvement here. On discharge recommend: steroid taper over 7-10 days, resume home lasix, and to avoid any benzodiazepine/opiate pain medications. - resume symbicort/spiriva at discharge - will have clinic arrange follow up 6-8 weeks Cornell Webber MD Pulmonary & Critical Care Medicine, Interventional Pulmonology Identification He Laureano is a 59 y.o. female, current smoker, below medical history that is reviewed, COPD on home oxygen 4 LPM, CAD and CHF, MARISOL not on cpap and last saw Baltazar Webber > 4 years ago, who was admitted on 03/27/20 for worsening dyspnea and started on therapy for COPD exacerbation. She saw Baltazar Webber > 4 years ago. Home COPD: she is on symbicort/roflumilast/spiriva as given by her PMD Since admission 03/27/20, she remains on solumderol, solumedrol 60 mg IV q 6 hour. We are consultedas she is unable to wean off of NIPPV. On IV fluid 50cc/hr since 03/27/20. Seen early AM 03/30/20, she feels her dyspnea and confusion have improved since admission. She is on NIPPV 50%. Speaking fully, not in distress Interval history Weaned off of NIPPV yesterday and now down to 6 L and during my visit at 630 am: we turned down to 4L and she tolerated just fine Given acetazolamide x 2 Review of Systems: Relevant ROS is as above, remainder of systems negative Past Medical Past Medical History: Diagnosis Date Anemia Anxiety Arthritis Asthma Cancer (HCC) breast at 22 yrs old Cardiac murmur 10/31/2019 Cataract CHF (congestive heart failure) (HCC) Chronic respiratory failure with hypercapnia (HCC) 10/31/2019 COPD (chronic obstructive pulmonary disease) (HCC) Depression Dermatitis Disease of thyroid gland Essential hypertension, benign 10/31/2019 GERD (gastroesophageal reflux disease) Heart attack (HCC) Heart murmur History of stress test Hyperlipidemia Hypertension Injury of back Insomnia 10/31/2019 Irritable bowel syndrome 10/31/2019 Neuromuscular disorder (HCC) Oxygen dependent 2-3 liters at all times Peptic ulceration 13 peptic PMB (postmenopausal bleeding) 07/19/2015 Simple endometrial hyperplasia 08/04/2015 Stroke (HCC) mini Allergies and Medications: Allergies: I have reviewed the patient's allergies. Aspirin, Codeine, Ibuprofen, and Penicillin Scheduled Meds: atorvastatin 20 mg Oral Nightly budesonide-formoteroL 2 puff Inhalation BID ipratropium-albuteroL 3 mL Nebulization Q6H MARY levoFLOXacin 750 mg Intravenous Q24H losartan 50 mg Oral Daily with lunch methylPREDNISolone sodium succinate 60 mg Intravenous Q12H MARY pantoprazole 20 mg Oral Daily roflumilast 500 mcg Oral Daily sodium chloride (PF) 5 mL Intravenous Q8H MARY sucralfate 1 g Tube 4x daily before meals Exam: Respiratory Support FiO2 (%): 50 Vital Signs: Temp: [97.7 F (36.5 C)-98.9 F (37.2 C)] 97.8 F (36.6 C) Heart Rate: [82-90] 89 Resp: [16-21] 20 BP: (117-139)/(71-80) 117/72 FiO2 (%): 50 I/O last 3 completed shifts: In: 1205.3 [P.O.:780; I.V.:125; IV Piggyback:300.2] Out: 1600 [Urine:1600] General: On 6L now, speaking normal sentences Head: Normocephalic. Sclerae anicteric. Trachea is midline. Neck: Supple. No JVD. No lymphadenopathy. Cardiovascular: Regular rate and rhythm. Respiratory: Normal respiratory effort. Clear to ausculation posteriorly Abdominal: Soft, nondistended, nontender masses or organomegaly noted. Musculoskeletal: No obvious deformity. Extremities: No clubbing or cyanosis. Neurological: Non-focal examination. Skin: Normal turgor, no diffuse rash appreciated. Laboratory Data and Critical Care Checklist: [x] Inpatient Medications reviewed. [x] Labs reviewed. Pertinent findings noted: 03/31/20 reviewe: no labs back yet 03/30/20 cbc normal 03/30/20 bmp reviewed with bicarb >45. 03/27/20 trop x 2 negative 03/27/20 covid-19 not detected NO micro [x] Radiology reviewed. Pertinent findings noted: Chest xray 03/27/20: increased vascular congestion and likely left basilar effusion as well, NO obvious focal airspace disease No other prior chest imaging recently ECHO 10/2016: CONCLUSIONS 1. Normal chamber sizes. 2. This was a technically difficult study with suboptimal views. PT MORBIDLY OBESE AND REFUSED TO COOPERATE WITH EXAM DUE TO BREATHING ISSUES. UNABLE TO LAY ON LEFT SIDE. 3. Overall left ventricular systolic function is normal with, an EF between 55 - 60 %. 4. Mild mitral regurgitation is present. 5. There is no pericardial effusion. Cornell Webber MD 6:19 AM * Pooja Delaney RN - 03/30/2020 11:02 AM EST COMPLEX DISCHARGE Date: 03/30/2020 Time: 11:03 AM Patient Name: He Laureano Date of : 1960 Sex: Female Spoke with pt's Waiver LORA Mitchell, she states that pt has HH services through [facility], has half-way weekly and aide service for 2 hours daily. She states that pt does have poor living conditions, and refuses to allow the nurse to administer her medications. She states that pt does mismanage her medications. She has contacted adult protective services, but pt is not 61 so theywill not investigate. She states that they are in contract with an agency to exterminate the home as it is infested with mice, roaches and bedbugs. Pt frequently refuses for HH aide to do her personal care. Approached by pt's nurse, who states that her daughter has called and is concerned about her mothers condition and living situation. Pt is intermittently confused, unable to speak with her at this time. SW will reach out to pt's daughter to discuss placement at discharge. * Joni Short MD - 03/30/2020 9:31 AM EST Patient is afebrile. Vital signs are stable. Patient is starting to feel better she says Is off the BiPAP she is on nasal cannula and she is sitting Exam she is alert pleasant no distress Lungs show decreased breath sounds but air exchange is pretty good Exam S1-S2 grade 2 or 6 systolic murmur Abdomen is soft Pression and plan #1 community-acquired pneumonia 2. Acute hypercarbic respiratory failure with altered mentation seems to be getting better 3 exacerbation of COPD 4 anxiety/depression 5 hypertension 6. Obesity 7. Generalized weakness * Stormy Chamorro, PUBLIC RELATIONS ACCOUNT SUPERVISOR - 03/30/2020 9:00 AM EST Physical Therapy PHYSICAL THERAPY TREATMENT NOTE Skilled Therapy Needs After Discharge Anticipate Resolution of Current Assessment Limitations Including: Social Support, Pain, MechanicalBarriers Are Skilled Therapy Services Needed After Discharge: Yes Intensity of Skilled Therapy: 2-3 days per week Anticipated Duration of Skilled Therapy: Duration 10 - 30 days DME Recommendation: Wheeled walker DME Rationale: Patient's condition prevents him/her from accomplishing ADL without recommended equipment, Patient's condition creates an increased risk of safety hazard without recommended equipment Rehab Potential: Good I utilized the following PPE throughout this therapy session: gloves. Goggles, and a surgical mask.Selwyn Camacho a rehab consultant was present throughout treatment and she utilized gloves, goggles, and a surgical mask. Pt reports 08/16 for discharge readiness. Outcomes Measures Prior Function - Basic Mobility Raw Score: 21 Points Prior Function - Basic Mobility % Impaired: 29.52% functionally impaired AM-PAC - Basic Mobility Raw Score: 16 Points AM-PAC - Basic Mobility % Impaired: 47.12% functionally impaired Therapy Precautions Orthotic Devices: No Weight Bearing Status: WFL General Rehab Precautions: Fall risk Balance Sitting Balance - Static: Supports self independantly with both upper extremities Sitting Balance - Dynamic: Moves / returns trunkal midpoint 1-2 inches in multiple planes Standing Balance - Static: Supports self independantly with both upper extremities Standing Balance - Dynamic: Moves / returns trunkal midpoint 1-2 inches in multiple planes Bed Mobility Rolling: Min Supine to Sit: Mod Skilled Intervention: pt educated on handplacement, demostrated understanding but will need reinfrcement Transfers Sit to Stand: Min Bed to Chair: Min Skilled Intervention: pt required verbal cues for hand placement upon descending to chair. demonstrated understanding after cues but will still require reinforcement. Gait/Locomotion Gait Assistance: Contact guard Assistive Device: Wheeled walker(gait belt) Distance: (mutiple steps to turn from bed to chair. ) Pattern: Step to, R decreased step length, L decreased step length Skilled Intervention: patient unable to walkk due to shortness of breath despite SpO2 levels remaining in normal range. educated to breath in through nose and out thrugh mouth. demonstrated understanding of proper breathing techniques. Upon arrival patients SpO2 was 94%. patient is on 6L of High flow nasal canula. Patient was switched to non re-breather mask on 15L for activity per RT. Wave form on monitor was not a good wave. Therapist utilized different pulse ox. SpO2 ranged from 87% to 94% during activity. Patient was switchedback to high flow nasal canula and RT came in and increased to 8L. SpO2 was 92% at end of treatment. Exercise Seated Exercises: 15(ankle pumps, LAQ, marches, abduction ) Pt reports no increased pain upon end of treatment, left with all immediate needs met, and call light within reach. White board and mobility card updated to reflect the patients current activity level. RN notified of patients mobility status. All alarms were set according to pt's fall risk score. Gait belt and socks on during treatment. All activity performed in preparation for discharge. Home Living Type of Home: House Home Layout: One level, Ramped entrance Bathroom Accessibility: Accessible Home Equipment: Wheelchair-manual Additional Comments: Patient uses w/c for long distances. She walks short distances from bedroom todining room and back with no device. Prior Level of Function Level of [place]: Needs assistance with ADLs, Needs assistance with homemaking Lives With: Significant other Receives Help From: stadium attendant(Aide every day) ADL Assistance: Needs assistance Homemaking Assistance: Needs assistance For complete objective data, detailed plan of care and patient education refer to: PT EVALUATION flow sheet, PT TREATMENT flow sheet, patient Plan of Care, Plan of Care progress note, and Patient Education. This note stands as the current Discharge Summary upon patient discharge from the hospital or completion of Physical Therapy Plan of Care. * Cornell Webber MD - 03/29/2020 4:30 PM EST Brief note: Consult noted. Will officially see in the AM. Xray does appear to show some increased interstitial prominence, query pulmonary edema. Chart review shows she is on NS at 50cc/hr as of 03/27/20. Will stop IV fluids for now. I've added a BNP to the AM labs done today. Lasix 40mg iv x 1 ordered, MAR reviewed, has not received during admission. Cornell Webber MD Pulmonary & Critical Care Medicine, Interventional Pulmonology * Tammi Shabazz, PUBLIC RELATIONS ACCOUNT SUPERVISOR - 03/29/2020 3:58 PM EST Physical Therapy PHYSICAL THERAPY TREATMENT NOTE Skilled Therapy Needs After Discharge Anticipate Resolution of Current Assessment Limitations Including: Social Support, Pain, MechanicalBarriers Are Skilled Therapy Services Needed After Discharge: Yes Intensity of Skilled Therapy: 2-3 days per week Anticipated Duration of Skilled Therapy: Duration 10 - 30 days DME Recommendation: Wheeled walker DME Rationale: Patient's condition prevents him/her from accomplishing ADL without recommended equipment, Patient's condition creates an increased risk of safety hazard without recommended equipment Rehab Potential: Good I utilized the following PPE throughout this therapy session: gloves, goggles and surgical mask. Selwyn Camacho A rehab consultant was present throughout treatment and she utilized gloves, goggles and surgical mask Pt reports 08/16 for discharge readiness Outcomes Measures Prior Function - Basic Mobility Raw Score: 21 Points Prior Function - Basic Mobility % Impaired: 29.52% functionally impaired AM-PAC - Basic Mobility Raw Score: 14 Points AM-PAC - Basic Mobility % Impaired: 53.86% functionally impaired Activity Tolerance Activity Tolerance: Tolerates 10 - 20 min activity with multiple rests(on BiPAP. SpO2 remained in high 80s to low 90s with mobility) Therapy Precautions Orthotic Devices: No Weight Bearing Status: WFL General Rehab Precautions: Fall risk Balance Sitting Balance - Static: Supports self independantly with both upper extremities Sitting Balance - Dynamic: Moves / returns trunkal midpoint 1-2 inches in multiple planes Standing Balance - Static: Supports self independantly with both upper extremities Standing Balance - Dynamic: Moves / returns trunkal midpoint 1-2 inches in multiple planes Bed Mobility Rolling: Mod Supine to Sit: Mod Skilled Intervention: pt educated on hand placement and sequencing- pt demonsrtated increased undertsanding of sequencing after cues but will need reinforcement Transfers Sit to Stand: Min Bed to Chair: Min Spa Manager: Wheelchair, Gait belt Skilled Intervention: pt educated on reaching back and eccentric control when sitting- pt demonsrtated increased control after cues but may need reinforcemenrt Pt transferred to chair with alarm on Patient reports no increased pain upon end of treatment, left with all immediate needs met, and call light within reach. White board and mobility card updated to reflect the patients current activitylevel. RN notified of patient's mobility status. All alarms were set according to pt's fall risk score. Gait belt and non-skid socks on during treatment Gait/Locomotion Gait Assistance: Contact guard Assistive Device: Wheeled walker Distance: 8 Feet Pattern: Step to, R decreased step length, L decreased step length, Forward flexed(decreased frank) Skilled Intervention: pt educated on increased posture, sequencing and safety- pt demonsrtated increased posture after cues but may need reinforcement Pt is on bipap SpO2 stayed above 90% throughout treatment Exercise Seated Exercises: 10(ankle pumps, LAQ, abduction) Skilled Intervention: pt educated on proper technique and HEP- verbalzied understanding All activity performed in preparation for discharge Home Living Type of Home: House Home Layout: One level, Ramped entrance Bathroom Accessibility: Accessible Home Equipment: Wheelchair-manual Additional Comments: Patient uses w/c for long distances. She walks short distances from bedroom todining room and back with no device. Prior Level of Function Level of [place]: Needs assistance with ADLs, Needs assistance with homemaking Lives With: Significant other Receives Help From: stadium attendant(Aide every day) ADL Assistance: Needs assistance Homemaking Assistance: Needs assistance For complete objective data, detailed plan of care and patient education refer to: PT EVALUATION flow sheet, PT TREATMENT flow sheet, patient Plan of Care, Plan of Care progress note, and Patient Education. This note stands as the current Discharge Summary upon patient discharge from the hospital or completion of Physical Therapy Plan of Care. * Joni Short MD - 03/29/2020 10:53 AM EST Patient is afebrile. Vital signs are stable. She is on BiPAP and we are not able to wean her off Exam she is alert Lungs show decreased breath sounds without only much wheezing Exam S1-S2 grade 2 or 6 systolic murmur Abdomen is soft Pression and plan-#1 community-acquired pneumonia 2. Acute hypercarbic respiratory failure with altered mentation 3 exacerbation of COPD 4 anxiety depression 5 hypertension She seems to be hanging in there but I am not even able to wean her off the BiPAP and will get a pulmonology consult see if we need to do anything else * Miranda Bell RN - 03/29/2020 9:06 AM EST 0906- Upon this RN's assessment, patient is alert and oriented x 4 which is improved from this RN'sassessment yesterday. Patient is less tachypneic and labored, is coherent and able to understand her care plan. Patient worked with PT and was able to be transferred to recliner with assistance. BiPAP removed in order to pass morning medications. Placed on 6L via NC and patient maintained oxygen saturations at 90%. Patient was only able to tolerated the nasal cannula for around 5 minutes before becoming tachypneic and labored with breathing. BiPAP placed back on patient. Miranda Saunders RN - 03/28/2020 5:05 PM EST 0715- Patient continuously removing BiPAP. Oxygen saturations dropping to 80%. Redirected to keep BiPAP on. Patient's RR around 30 when BiPAP is removed. Pt has accessory muscle use and pursed lip breathing. Pt only alert to self. 0800- Patient needing constant redirection and continuously removing BiPAP causing oxygen saturations to immediately drop to 80%. Dr. Joni Short notified and informed of critical Bicarb (41). No new orders currently. 1100- 1:1 process validation engineer at bedside to assist with redirection/compliance of the BiPAP. Patient's daughter, Trisha, updated and agreeable with plan. Trisha mentioned patient POSSIBLY wanting to be a DNRbut patient did not have any documentation of this. This nurse discussed with Trisha that patient was currently incoherent at this time and if patient were to deteriorate, next of kin would be contacted to help make decisions. Joni Pavon MD - 03/28/2020 12:34 PM EST Patient is afebrile. Vital signs are stable. Patient gets confused on and off and tries to pull theBiPAP off otherwise she seems to be coming along pretty good On exam she is alert in no distress she has BiPAP on Lungs show decreased breath sounds diffusely air exchange is decreased but there is no retractions Exam S1-S2 grade 2 or 6 systolic murmur Abdomen is soft Impression and plan #1 acute hypercarbic respiratory failure with altered mentation related to thatand seems to be responding slowly to the BiPAP 2. Community-acquired pneumonia 3. Exacerbation of COPD 4. Anxiety and depression 5 hypertension 6. CAD 7 history of CVA in the past 8. Morbid obesity 9. Chronic hypoxic respiratory failure on 4 L of oxygen at home Patient is on IV steroids aerosol treatments antibiotics and inhalers and BiPAP * Candi Baeza RN - 03/28/2020 5:42 AM EST Patient removes BiPaP several times throughout the night, patient's O2 quickly drops down into the low-mid 70's and slowly recovers to >90% when BiPaP is back on. Patient was educated several times about the importance of wearing the BiPaP. Patient is alert and oriented to person and place, disoriented to time and situation. Reorienting patient PRN. * Cande Saavedra RN - 03/27/2020 9:49 AM EST 0710 On assessment patient ripping off bipap, patient alert to self, not able to follow all commands. Sp02 decreased to 80% off bipap. Bipap placed back on patient, patient educated on the importanceof bipap compliance, patient unable to verbalize understanding. Bipap 16/8 40% VT [phone] patient alert enough to turn call light on , and asked to eat. Patient placed on NC 5lpm Sp02 maintained above 90%. Patient still only alert to self. Patient asking to eat, but unable to feed herself. On assessment patient unable to lift up arms to feed herself, both arms have mild twitching, patient unable to focus her eyes on me or follow commands. Patient placed back on bipap. 0950 Patients daughter Mona called for an update. Mona is very concerned about her mothers living conditions. Mona stated "her house is filled of mice and roaches, she has home health butthey never bath her or help her". 1130 Patient continuously ripping off bipap, Patient very confused only alert to self, speaking is very mumbled, with only some words making sense. VBG ordered per protocol 1700 Patient on and off bipap throughout shift, mostly on with small breaks on NC at 6lpm, patient remains very confused , not much improvement in clinical orientation. bipap setting remain 16/8 40 %patient pulling in adequate VT and MV ( VT ranging 600-1000, MV ranging 10-14) SP02 above 90 % while on bipap, Sp02 drops quickly down into the low 80's if patient pulling off Bipap Mask. Patient hasbeen educated numerous times the importance of noninvasive ventilation compliance, documented in this encounter* Yenni Medina, ARIC - 04/01/2020 2:05 PM EST Written home instructions given and explained. Patient states Understanding. IV and mmonitor removed. Patient has all personal belongings at time of discharge. * Nikkie Horowitz LSW - 04/01/2020 11:02 AM EST AVS faxed to [facility] / Home care waiver caseworker intake * Yasmin Kaminski PTA - 04/01/2020 10:28 AM EST Physical Therapy PHYSICAL THERAPY TREATMENT NOTE Skilled Therapy Needs After Discharge Anticipate Resolution of Current Assessment Limitations Including: Social Support, Pain, MechanicalBarriers Are Skilled Therapy Services Needed After Discharge: Yes Intensity of Skilled Therapy: 2-3 days per week Anticipated Duration of Skilled Therapy: Duration 10 - 30 days DME Recommendation: Wheeled walker DME Rationale: Patient's condition prevents him/her from accomplishing ADL without recommended equipment Rehab Potential: Good Outcomes Measures Prior Function - Basic Mobility Raw Score: 21 Points Prior Function - Basic Mobility % Impaired: 29.52% functionally impaired AM-PAC - Basic Mobility Raw Score: AM-PAC - Basic Mobility % Impaired: Activity Tolerance Therapy Precautions Orthotic Devices: No Weight Bearing Status: WFL General Rehab Precautions: Fall risk Pt's needs met, call light in reach. RN notified of pt's progress. All PT activities performed in preparation for discharge I utilized the following PPE throughout this therapy session: Gloves, Surgical mask and Safety glasses Fall risk of 3, card updated, x 1 alarm donned. Exercise Ankle Pumps: 15 Quad Sets: 15 Glute Sets: 15 Hip Abduction: 15 Skilled Intervention: pt education for ex technique Home Living Type of Home: House Home Layout: One level, Ramped entrance Bathroom Accessibility: Accessible Home Equipment: Wheelchair-manual Additional Comments: Patient uses w/c for long distances. She walks short distances from bedroom todining room and back with no device. Prior Level of Function Level of [place]: Needs assistance with ADLs, Needs assistance with homemaking Lives With: Significant other Receives Help From: stadium attendant(Aide every day) ADL Assistance: Needs assistance Homemaking Assistance: Needs assistance For complete objective data, detailed plan of care and patient education refer to: PT EVALUATION flow sheet, PT TREATMENT flow sheet, patient Plan of Care, Plan of Care progress note, and Patient Education. This note stands as the current Discharge Summary upon patient discharge from the hospital or completion of Physical Therapy Plan of Care. * Yamini Bowden RRT - 04/01/2020 9:30 AM EST ABG done on 03/31/20 at 1325 on 4lpm nasal cannula. PCO2 was 73.9 * Pooja Delaney RN - 04/01/2020 9:14 AM EST COMPLEX DISCHARGE Date: 04/01/2020 Time: 9:14 AM Patient Name: He Laureano Date of : 1960 Sex: Female Pt requiring Bipap for home use. Overnight pulse oxymetry study faxed to [place] [facility], order and F2F complete. [place] [facility] will deliver to pt's home, will coordinate time with pt. [facility] Disposition D/C Disposition: Home Health Care Services Related to Current Admission?: No Agency/Destination: Other([facility]) Home Care Needs : Home health care HME: BI-PAP Transportation Type: Ambulance Transportation Company/Agency Name: [employer] [facility] Reason for Choice: Currently with agency * Yasmin Kaminski, PUBLIC RELATIONS ACCOUNT SUPERVISOR - 03/31/2020 1:49 PM EST Physical Therapy PHYSICAL THERAPY TREATMENT NOTE Skilled Therapy Needs After Discharge Anticipate Resolution of Current Assessment Limitations Including: Social Support, Pain, MechanicalBarriers Are Skilled Therapy Services Needed After Discharge: Yes Intensity of Skilled Therapy: 2-3 days per week Anticipated Duration of Skilled Therapy: Duration 10 - 30 days DME Recommendation: Wheeled walker DME Rationale: Patient's condition prevents him/her from accomplishing ADL without recommended equipment Rehab Potential: Good Outcomes Measures Prior Function - Basic Mobility Raw Score: 21 Points Prior Function - Basic Mobility % Impaired: 29.52% functionally impaired AM-PAC - Basic Mobility Raw Score: 14 Points AM-PAC - Basic Mobility % Impaired: 53.86% functionally impaired The patient's AMPAC score remains the same. However, the patient was able to provide more assistance with transfers, requiring less physical and verbal cues for completion. The patient is demonstrating improved function and mobility although the AMPAC score does not reflect this. Therapy Precautions Orthotic Devices: No Weight Bearing Status: WFL General Rehab Precautions: Fall risk Pt's needs met, call light in reach. RN notified of pt's progress. All PT activities performed in preparation for discharge The patient's AMPAC score remains the same. However, the patient was able to provide more assistance with transfers, requiring less physical and verbal cues for completion. The patient is demonstrating improved function and mobility although the AMPAC score does not reflect this. Balance Sitting Balance - Static: Supports self independantly with both upper extremities Sitting Balance - Dynamic: Moves / returns trunkal midpoint 1-2 inches in multiple planes Standing Balance - Static: Supports self independantly with both upper extremities Standing Balance - Dynamic: Moves / returns trunkal midpoint 1-2 inches in multiple planes Bed Mobility Rolling: Mod Supine to Sit: Mod Sit to Supine: (pt in chair after tx) Skilled Intervention: pt educatin for sequencing and using hand rail, needs reinforcement Transfers Sit to Stand: Min Skilled Intervention: pt education for hand placement, needs reinforcement, pt didn't follow instruction 2 out of 2 times Gait/Locomotion Gait Assistance: Contact guard Assistive Device: Wheeled walker(gait belt) Distance: 3 Feet Pattern: Step to, R decreased step length, L decreased step length, Forward flexed Skilled Intervention: pt education for increasing mobility, needs reinforcement Exercise Seated Exercises: 15(PF/DF, LAQ, Marches, ABD) Skilled Intervention: pt education for ex technique Home Living Type of Home: House Home Layout: One level, Ramped entrance Bathroom Accessibility: Accessible Home Equipment: Wheelchair-manual Additional Comments: Patient uses w/c for long distances. She walks short distances from bedroom todining room and back with no device. Prior Level of Function Level of [place]: Needs assistance with ADLs, Needs assistance with homemaking Lives With: Significant other Receives Help From: stadium attendant(Aide every day) ADL Assistance: Needs assistance Homemaking Assistance: Needs assistance For complete objective data, detailed plan of care and patient education refer to: PT EVALUATION flow sheet, PT TREATMENT flow sheet, patient Plan of Care, Plan of Care progress note, and Patient Education. This note stands as the current Discharge Summary upon patient discharge from the hospital or completion of Physical Therapy Plan of Care. * Joni Short MD - 03/31/2020 11:52 AM EST Patient is afebrile. Vital signs are stable. She states she is feeling much better Exam she is alert and she is off the BiPAP she is on 5 L of nasal cannula Lungs seem pretty clear Exam S1-S2 grade 2 or 6 systolic murmur Abdomen is soft Pression and plan #1 exacerbation of COPD 2. Community-acquired pneumonia 3. CO2 narcosis with altered mentation seems to be better but I think she would really benefit froma BiPAP study 4 obesity 5. We will do a overnight pulse oximetry study to see how low the oxygen drops and consideration for BiPAP on the basis of COPD and pneumonia She does not have a diagnosis of sleep apnea at this time but that is a possibility and that could be looked into on an outpatient basis 6. Morbid obesity 7. CHF 8. Anxiety/ depression 9. Chronic hypoxic respiratory failure 10. Generalized weakness * Nikkie Horowitz LSW - 03/31/2020 11:31 AM EST Met w/ pt Pt plans to return home w/ Significant -who she says has ability to help her She reports minimal activity, mobility PUBLIC RELATIONS ACCOUNT SUPERVISOR Currently is assist of two to BSC but pt said she has that kind of help at home Offered SNF short term- she declined She states her waiver caseworker intake has been mentioned SNF - pt states she wants to try home for a month She has aide daily She uses w/c service to go to appts ( and said aide goes w/ her ) She is receptive to therapy at home Will request PT OT orders MD ordering nocturnal sleep study for bipap at [facility] left message updated summer caseworker intake [phone] Soc wk requested call back ab which agency to use for home therapies [phone] spoke w/ summer /- [facility] can provide the therapy ( tho home condition maymake it difficult per summer ) Fax AVS / discharge bundle to summer at [phone] and she will forward it to [facility] start of care will be Saturday 04/07 Engineering Administrator has been approved and will be completed in near future * Cornell Webber MD - 03/31/2020 6:14 AM EST Pulmonary Medicine Follow Up Consult Note Reason for Consultation: COPD exacerbation, inability to wean off BiPAP Impression and Recommendations Acute on chronic respiratory failure Baseline COPD 4 L, Baseline MARISOL but not on CPAP Congestive heart failure acute exacerbation - xray to me shows vascular congestion and likely L effusion to some level - Review of ABGs shows PCO2 chroniclally is probably 70s-80s even - diuresed well on 03/30/20 with the lasix and acetazolamide and improved respiratory status - Recommend to change to prednisone 60 mg daily and wean on discharge - continue scheduled duoneb, symbicort, empiric levaquin (her xray findings could also represent some level of atyical infection - I will sign off given improvement here. On discharge recommend: steroid taper over 7-10 days, resume home lasix, and to avoid any benzodiazepine/opiate pain medications. - resume symbicort/spiriva at discharge - will have clinic arrange follow up 6-8 weeks Cornell Webber MD Pulmonary & Critical Care Medicine, Interventional Pulmonology Identification He Laureano is a 59 y.o. female, current smoker, below medical history that is reviewed, COPD on home oxygen 4 LPM, CAD and CHF, MARISOL not on cpap and last saw Baltazar Webber > 4 years ago, who was admitted on 03/27/20 for worsening dyspnea and started on therapy for COPD exacerbation. She saw Baltazar Webber > 4 years ago. Home COPD: she is on symbicort/roflumilast/spiriva as given by her PMD Since admission 03/27/20, she remains on solumderol, solumedrol 60 mg IV q 6 hour. We are consultedas she is unable to wean off of NIPPV. On IV fluid 50cc/hr since 03/27/20. Seen early AM 03/30/20, she feels her dyspnea and confusion have improved since admission. She is on NIPPV 50%. Speaking fully, not in distress Interval history Weaned off of NIPPV yesterday and now down to 6 L and during my visit at 630 am: we turned down to 4L and she tolerated just fine Given acetazolamide x 2 Review of Systems: Relevant ROS is as above, remainder of systems negative Past Medical Past Medical History: Diagnosis Date Anemia Anxiety Arthritis Asthma Cancer (HCC) breast at 22 yrs old Cardiac murmur 10/31/2019 Cataract CHF (congestive heart failure) ([facility]) Chronic respiratory failure with hypercapnia (HCC) 10/31/2019 COPD (chronic obstructive pulmonary disease) ([facility]) Depression Dermatitis Disease of thyroid gland Essential hypertension, benign 10/31/2019 GERD (gastroesophageal reflux disease) Heart attack ([facility]) Heart murmur History of stress test Hyperlipidemia Hypertension Injury of back Insomnia 10/31/2019 Irritable bowel syndrome 10/31/2019 Neuromuscular disorder ([facility]) Oxygen dependent 2-3 liters at all times Peptic ulceration 13 peptic PMB (postmenopausal bleeding) 07/19/2015 Simple endometrial hyperplasia 08/04/2015 Stroke ([facility]) mini Allergies and Medications: Allergies: I have reviewed the patient's allergies. Aspirin, Codeine, Ibuprofen, and Penicillin Scheduled Meds: atorvastatin 20 mg Oral Nightly budesonide-formoteroL 2 puff Inhalation BID ipratropium-albuteroL 3 mL Nebulization Q6H MARY levoFLOXacin 750 mg Intravenous Q24H losartan 50 mg Oral Daily with lunch methylPREDNISolone sodium succinate 60 mg Intravenous Q12H MARY pantoprazole 20 mg Oral Daily roflumilast 500 mcg Oral Daily sodium chloride (PF) 5 mL Intravenous Q8H [facility] sucralfate 1 g Tube 4x daily before meals Exam: Respiratory Support FiO2 (%): 50 Vital Signs: Temp: [97.7 F (36.5 C)-98.9 F (37.2 C)] 97.8 F (36.6 C) Heart Rate: [82-90] 89 Resp: [16-21] 20 BP: (117-139)/(71-80) 117/72 FiO2 (%): 50 I/O last 3 completed shifts: In: 1205.3 [P.O.:780; I.V.:125; IV Piggyback:300.2] Out: 1600 [Urine:1600] General: On 6L now, speaking normal sentences Head: Normocephalic. Sclerae anicteric. Trachea is midline. Neck: Supple. No JVD. No lymphadenopathy. Cardiovascular: Regular rate and rhythm. Respiratory: Normal respiratory effort. Clear to ausculation posteriorly Abdominal: Soft, nondistended, nontender masses or organomegaly noted. Musculoskeletal: No obvious deformity. Extremities: No clubbing or cyanosis. Neurological: Non-focal examination. Skin: Normal turgor, no diffuse rash appreciated. Laboratory Data and Critical Care Checklist: [x] Inpatient Medications reviewed. [x] Labs reviewed. Pertinent findings noted: 03/31/20 reviewe: no labs back yet 03/30/20 cbc normal 03/30/20 bmp reviewed with bicarb >45. 03/27/20 trop x 2 negative 03/27/20 covid-19 not detected NO micro [x] Radiology reviewed. Pertinent findings noted: Chest xray 03/27/20: increased vascular congestion and likely left basilar effusion as well, NO obvious focal airspace disease No other prior chest imaging recently ECHO 10/2016: CONCLUSIONS 1. Normal chamber sizes. 2. This was a technically difficult study with suboptimal views. PT MORBIDLY OBESE AND REFUSED TO COOPERATE WITH EXAM DUE TO BREATHING ISSUES. UNABLE TO LAY ON LEFT SIDE. 3. Overall left ventricular systolic function is normal with, an EF between 55 - 60 %. 4. Mild mitral regurgitation is present. 5. There is no pericardial effusion. Cornell Webber MD 6:19 AM * Pooja Delaney RN - 03/30/2020 11:02 AM EST COMPLEX DISCHARGE Date: 03/30/2020 Time: 11:03 AM Patient Name: He Laureano Date of : 1960 Sex: Female Spoke with pt's Waiver CM Summer, she states that pt has HH services through [facility], has half-way weekly and aide service for 2 hours daily. She states that pt does have poor living conditions, and refuses to allow the nurse to administer her medications. She states that pt does mismanage her medications. She has contacted adult protective services, but pt is not 61 so theywill not investigate. She states that they are in contract with an agency to exterminate the home as it is infested with mice, roaches and bedbugs. Pt frequently refuses for HH aide to do her personal care. Approached by pt's nurse, who states that her daughter has called and is concerned about her mothers condition and living situation. Pt is intermittently confused, unable to speak with her at this time. SW will reach out to pt's daughter to discuss placement at discharge. * Joni Short MD - 03/30/2020 9:31 AM EST Patient is afebrile. Vital signs are stable. Patient is starting to feel better she says Is off the BiPAP she is on nasal cannula and she is sitting Exam she is alert pleasant no distress Lungs show decreased breath sounds but air exchange is pretty good Exam S1-S2 grade 2 or 6 systolic murmur Abdomen is soft Pression and plan #1 community-acquired pneumonia 2. Acute hypercarbic respiratory failure with altered mentation seems to be getting better 3 exacerbation of COPD 4 anxiety/depression 5 hypertension 6. Obesity 7. Generalized weakness * Stormy Chamorro, PUBLIC RELATIONS ACCOUNT SUPERVISOR - 03/30/2020 9:00 AM EST Physical Therapy PHYSICAL THERAPY TREATMENT NOTE Skilled Therapy Needs After Discharge Anticipate Resolution of Current Assessment Limitations Including: Social Support, Pain, MechanicalBarriers Are Skilled Therapy Services Needed After Discharge: Yes Intensity of Skilled Therapy: 2-3 days per week Anticipated Duration of Skilled Therapy: Duration 10 - 30 days DME Recommendation: Wheeled walker DME Rationale: Patient's condition prevents him/her from accomplishing ADL without recommended equipment, Patient's condition creates an increased risk of safety hazard without recommended equipment Rehab Potential: Good I utilized the following PPE throughout this therapy session: gloves. Goggles, and a surgical mask.Selwyn Camacho a rehab consultant was present throughout treatment and she utilized gloves, goggles, and a surgical mask. Pt reports 08/16 for discharge readiness. Outcomes Measures Prior Function - Basic Mobility Raw Score: 21 Points Prior Function - Basic Mobility % Impaired: 29.52% functionally impaired AM-PAC - Basic Mobility Raw Score: 16 Points AM-PAC - Basic Mobility % Impaired: 47.12% functionally impaired Therapy Precautions Orthotic Devices: No Weight Bearing Status: WFL General Rehab Precautions: Fall risk Balance Sitting Balance - Static: Supports self independantly with both upper extremities Sitting Balance - Dynamic: Moves / returns trunkal midpoint 1-2 inches in multiple planes Standing Balance - Static: Supports self independantly with both upper extremities Standing Balance - Dynamic: Moves / returns trunkal midpoint 1-2 inches in multiple planes Bed Mobility Rolling: Min Supine to Sit: Mod Skilled Intervention: pt educated on handplacement, demostrated understanding but will need reinfrcement Transfers Sit to Stand: Min Bed to Chair: Min Skilled Intervention: pt required verbal cues for hand placement upon descending to chair. demonstrated understanding after cues but will still require reinforcement. Gait/Locomotion Gait Assistance: Contact guard Assistive Device: Wheeled walker(gait belt) Distance: (mutiple steps to turn from bed to chair. ) Pattern: Step to, R decreased step length, L decreased step length Skilled Intervention: patient unable to walkk due to shortness of breath despite SpO2 levels remaining in normal range. educated to breath in through nose and out thrugh mouth. demonstrated understanding of proper breathing techniques. Upon arrival patients SpO2 was 94%. patient is on 6L of High flow nasal canula. Patient was switched to non re-breather mask on 15L for activity per RT. Wave form on monitor was not a good wave. Therapist utilized different pulse ox. SpO2 ranged from 87% to 94% during activity. Patient was switchedback to high flow nasal canula and RT came in and increased to 8L. SpO2 was 92% at end of treatment. Exercise Seated Exercises: 15(ankle pumps, LAQ, marches, abduction ) Pt reports no increased pain upon end of treatment, left with all immediate needs met, and call light within reach. White board and mobility card updated to reflect the patients current activity level. RN notified of patients mobility status. All alarms were set according to pt's fall risk score. Gait belt and socks on during treatment. All activity performed in preparation for discharge. Home Living Type of Home: House Home Layout: One level, Ramped entrance Bathroom Accessibility: Accessible Home Equipment: Wheelchair-manual Additional Comments: Patient uses w/c for long distances. She walks short distances from bedroom todining room and back with no device. Prior Level of Function Level of [place]: Needs assistance with ADLs, Needs assistance with homemaking Lives With: Significant other Receives Help From: stadium attendant(Aide every day) ADL Assistance: Needs assistance Homemaking Assistance: Needs assistance For complete objective data, detailed plan of care and patient education refer to: PT EVALUATION flow sheet, PT TREATMENT flow sheet, patient Plan of Care, Plan of Care progress note, and Patient Education. This note stands as the current Discharge Summary upon patient discharge from the hospital or completion of Physical Therapy Plan of Care. * Cornell Webber MD - 03/29/2020 4:30 PM EST Brief note: Consult noted. Will officially see in the AM. Xray does appear to show some increased interstitial prominence, query pulmonary edema. Chart review shows she is on NS at 50cc/hr as of 03/27/20. Will stop IV fluids for now. I've added a BNP to the AM labs done today. Lasix 40mg iv x 1 ordered, MAR reviewed, has not received during admission. Cornell Webber MD Pulmonary & Critical Care Medicine, Interventional Pulmonology * Tammi Shabazz, PUBLIC RELATIONS ACCOUNT SUPERVISOR - 03/29/2020 3:58 PM EST Physical Therapy PHYSICAL THERAPY TREATMENT NOTE Skilled Therapy Needs After Discharge Anticipate Resolution of Current Assessment Limitations Including: Social Support, Pain, MechanicalBarriers Are Skilled Therapy Services Needed After Discharge: Yes Intensity of Skilled Therapy: 2-3 days per week Anticipated Duration of Skilled Therapy: Duration 10 - 30 days DME Recommendation: Wheeled walker DME Rationale: Patient's condition prevents him/her from accomplishing ADL without recommended equipment, Patient's condition creates an increased risk of safety hazard without recommended equipment Rehab Potential: Good I utilized the following PPE throughout this therapy session: gloves, goggles and surgical mask. Selwyn Camacho A rehab consultant was present throughout treatment and she utilized gloves, goggles and surgical mask Pt reports 08/16 for discharge readiness Outcomes Measures Prior Function - Basic Mobility Raw Score: 21 Points Prior Function - Basic Mobility % Impaired: 29.52% functionally impaired AM-PAC - Basic Mobility Raw Score: 14 Points AM-PAC - Basic Mobility % Impaired: 53.86% functionally impaired Activity Tolerance Activity Tolerance: Tolerates 10 - 20 min activity with multiple rests(on BiPAP. SpO2 remained in high 80s to low 90s with mobility) Therapy Precautions Orthotic Devices: No Weight Bearing Status: WFL General Rehab Precautions: Fall risk Balance Sitting Balance - Static: Supports self independantly with both upper extremities Sitting Balance - Dynamic: Moves / returns trunkal midpoint 1-2 inches in multiple planes Standing Balance - Static: Supports self independantly with both upper extremities Standing Balance - Dynamic: Moves / returns trunkal midpoint 1-2 inches in multiple planes Bed Mobility Rolling: Mod Supine to Sit: Mod Skilled Intervention: pt educated on hand placement and sequencing- pt demonsrtated increased undertsanding of sequencing after cues but will need reinforcement Transfers Sit to Stand: Min Bed to Chair: Min Spa Manager: Wheelchair, Gait belt Skilled Intervention: pt educated on reaching back and eccentric control when sitting- pt demonsrtated increased control after cues but may need reinforcemenrt Pt transferred to chair with alarm on Patient reports no increased pain upon end of treatment, left with all immediate needs met, and call light within reach. White board and mobility card updated to reflect the patients current activitylevel. RN notified of patient's mobility status. All alarms were set according to pt's fall risk score. Gait belt and non-skid socks on during treatment Gait/Locomotion Gait Assistance: Contact guard Assistive Device: Wheeled walker Distance: 8 Feet Pattern: Step to, R decreased step length, L decreased step length, Forward flexed(decreased frank) Skilled Intervention: pt educated on increased posture, sequencing and safety- pt demonsrtated increased posture after cues but may need reinforcement Pt is on bipap SpO2 stayed above 90% throughout treatment Exercise Seated Exercises: 10(ankle pumps, LAQ, abduction) Skilled Intervention: pt educated on proper technique and HEP- verbalzied understanding All activity performed in preparation for discharge Home Living Type of Home: House Home Layout: One level, Ramped entrance Bathroom Accessibility: Accessible Home Equipment: Wheelchair-manual Additional Comments: Patient uses w/c for long distances. She walks short distances from bedroom todining room and back with no device. Prior Level of Function Level of [place]: Needs assistance with ADLs, Needs assistance with homemaking Lives With: Significant other Receives Help From: stadium attendant(Aide every day) ADL Assistance: Needs assistance Homemaking Assistance: Needs assistance For complete objective data, detailed plan of care and patient education refer to: PT EVALUATION flow sheet, PT TREATMENT flow sheet, patient Plan of Care, Plan of Care progress note, and Patient Education. This note stands as the current Discharge Summary upon patient discharge from the hospital or completion of Physical Therapy Plan of Care. * Joni Short MD - 03/29/2020 10:53 AM EST Patient is afebrile. Vital signs are stable. She is on BiPAP and we are not able to wean her off Exam she is alert Lungs show decreased breath sounds without only much wheezing Exam S1-S2 grade 2 or 6 systolic murmur Abdomen is soft Pression and plan-#1 community-acquired pneumonia 2. Acute hypercarbic respiratory failure with altered mentation 3 exacerbation of COPD 4 anxiety depression 5 hypertension She seems to be hanging in there but I am not even able to wean her off the BiPAP and will get a pulmonology consult see if we need to do anything else Miranda Saunders RN - 03/29/2020 9:06 AM EST 0906- Upon this RN's assessment, patient is alert and oriented x 4 which is improved from this RN'sassessment yesterday. Patient is less tachypneic and labored, is coherent and able to understand her care plan. Patient worked with PT and was able to be transferred to recliner with assistance. BiPAP removed in order to pass morning medications. Placed on 6L via NC and patient maintained oxygen saturations at 90%. Patient was only able to tolerated the nasal cannula for around 5 minutes before becoming tachypneic and labored with breathing. BiPAP placed back on patient. * Miranda Bell RN - 03/28/2020 5:05 PM EST 0715- Patient continuously removing BiPAP. Oxygen saturations dropping to 80%. Redirected to keep BiPAP on. Patient's RR around 30 when BiPAP is removed. Pt has accessory muscle use and pursed lip breathing. Pt only alert to self. 0800- Patient needing constant redirection and continuously removing BiPAP causing oxygen saturations to immediately drop to 80%. Dr. Joni Short notified and informed of critical Bicarb (41). No new orders currently. 1100- 1:1 process validation engineer at bedside to assist with redirection/compliance of the BiPAP. Patient's daughter, Trisha, updated and agreeable with plan. Trisha mentioned patient POSSIBLY wanting to be a DNRbut patient did not have any documentation of this. This nurse discussed with Trisha that patient was currently incoherent at this time and if patient were to deteriorate, next of kin would be contacted to help make decisions. Joni Pavon MD - 03/28/2020 12:34 PM EST Patient is afebrile. Vital signs are stable. Patient gets confused on and off and tries to pull theBiPAP off otherwise she seems to be coming along pretty good On exam she is alert in no distress she has BiPAP on Lungs show decreased breath sounds diffusely air exchange is decreased but there is no retractions Exam S1-S2 grade 2 or 6 systolic murmur Abdomen is soft Impression and plan #1 acute hypercarbic respiratory failure with altered mentation related to thatand seems to be responding slowly to the BiPAP 2. Community-acquired pneumonia 3. Exacerbation of COPD 4. Anxiety and depression 5 hypertension 6. CAD 7 history of CVA in the past 8. Morbid obesity 9. Chronic hypoxic respiratory failure on 4 L of oxygen at home Patient is on IV steroids aerosol treatments antibiotics and inhalers and BiPAP * Candi Baeza RN - 03/28/2020 5:42 AM EST Patient removes BiPaP several times throughout the night, patient's O2 quickly drops down into the low-mid 70's and slowly recovers to >90% when BiPaP is back on. Patient was educated several times about the importance of wearing the BiPaP. Patient is alert and oriented to person and place, disoriented to time and situation. Reorienting patient PRN. * Cande Saavedra RN - 03/27/2020 9:49 AM EST 0710 On assessment patient ripping off bipap, patient alert to self, not able to follow all commands. Sp02 decreased to 80% off bipap. Bipap placed back on patient, patient educated on the importanceof bipap compliance, patient unable to verbalize understanding. Bipap 16/8 40% VT [phone] patient alert enough to turn call light on , and asked to eat. Patient placed on NC 5lpm Sp02 maintained above 90%. Patient still only alert to self. Patient asking to eat, but unable to feed herself. On assessment patient unable to lift up arms to feed herself, both arms have mild twitching, patient unable to focus her eyes on me or follow commands. Patient placed back on bipap. 0950 Patients daughter Mona called for an update. Mona is very concerned about her mothers living conditions. Mona stated "her house is filled of mice and roaches, she has home health butthey never bath her or help her". 1130 Patient continuously ripping off bipap, Patient very confused only alert to self, speaking is very mumbled, with only some words making sense. VBG ordered per protocol 1700 Patient on and off bipap throughout shift, mostly on with small breaks on NC at 6lpm, patient remains very confused , not much improvement in clinical orientation. bipap setting remain 16/8 40 %patient pulling in adequate VT and MV ( VT ranging 600-1000, MV ranging 10-14) SP02 above 90 % while on bipap, Sp02 drops quickly down into the low 80's if patient pulling off Bipap Mask. Patient hasbeen educated numerous times the importance of noninvasive ventilation compliance, documented in this encounter Reason for Referral Status Reason Specialty Diagnoses / Procedures Re ferred By Contact Referred To Contact Pending Review Cardiology Diagnoses Dyspnea on exertion Procedures Dobutamine stress echocardiogram Naman Spivey MD [address] [place] [address] Status Reason Specialty Diagnoses / Procedures Referred By Contact Referred To Contact Pending Review Specialty Services Required/[facility] Diagnoses COPD exacerbation (HCC) Joni Short MD [address] [place] [address] Instructions * Patient Instructions - Naman Spivey MD - 12/20/2016 3:47 PM EDT Shortness of Breath: Care Instructions Your Care Instructions Shortness of breath has many causes. Sometimes conditions such as anxiety can lead to shortness of breath. Some people get mild shortness of breath when they exercise. Trouble breathing also can be asymptom of a serious problem, such as asthma, lung disease, emphysema, heart problems, and pneumonia. If your shortness of breath continues, you may need tests and treatment. Watch for any changes in your breathing and other symptoms. Follow-up care is a oliva part of your treatment and safety. Be sure to make and go to all appointments, and call your doctor if you are having problems. It s also a good idea to know your test resultsand keep a list of the medicines you take. How can you care for yourself at home? Do not smoke or allow others to smoke around you. If you need help quitting, talk to your doctor about stop-smoking programs and medicines. These can increase your chances of quitting for good. Get plenty of rest and sleep. Take your medicines exactly as prescribed. Call your doctor if you think you are having a problem with your medicine. Find healthy ways to deal with stress. Exercise daily. Get plenty of sleep. Eat regularly and well. When should you call for help? Call 911 anytime you think you may need emergency care. For example, call if: You have severe shortness of breath. You have symptoms of a heart attack. These may include: Chest pain or pressure, or a strange feeling in the chest. Sweating. Shortness of breath. Nausea or vomiting. Pain, pressure, or a strange feeling in the back, neck, jaw, or upper belly or in one or both shoulders or arms. Lightheadedness or sudden weakness. A fast or irregular heartbeat. After you call 911, the ways operator may tell you to chew 1 adult-strength or 2 to 4 low-dose aspirin. Wait for an ambulance. Do not try to drive yourself. Call your doctor now or seek immediate medical care if: Your shortness of breath gets worse or you start to wheeze. Wheezing is a high- pitched sound when you breathe. You wake up at night out of breath or have to prop your head up on several pillows to breathe. You are short of breath after only light activity or while at rest. Watch closely for changes in your health, and be sure to contact your doctor if: You do not get better over the next 1 to 2 days. Where can you learn more? Log into your personal health record on [email or web address] and enter S780 in the "Education" box to learn more about "Shortness of Breath: Care Instructions." Current as of: August 30, 2015 Content Version: 11.2 2688-6885 [employer]. Care instructions adapted under license by your healthcare professional. If you have questions about a medical condition or this instruction, always ask your healthcare professional. [employer] disclaims any warranty or liability for your use of this information. in this encounter Chief Complaint and Reason for Visit Chief Complaint LAB WORK RESIDENTIAL LAB WORK Chief Complaint LAB WORK RESIDENTIAL LAB WORK LAB WORK ZONIA 2/2 DEHYDRATION/UTI Reason for Visit ZONIA (acute kidney in jury) Dehydration Diarrhea Hyperkalemia Hypoxia UTI (urinary tract infection) Chief Complaint LAB WORK RESIDENTIAL LAB WORK RESIDENTIAL LAB WORK ZONIA 2/2 DEHYDRATION/UTI ZONIA 2/2 DEHYDRATION/UTI ZONIA 2/2 DEHYDRATION/UTI Reason for Visit ZONIA (acute kidney in jury) Dehydration Diarrhea Hyperkalemia Hypoxia UTI (urinary tract infection) Acute and chronic respiratory failure with hypoxia Chief Complaint LAB WORK RESIDENTIAL LAB WORK RESIDENTIAL LAB WORK ZONIA 2/2 DEHYDRATION/UTI ZONIA 2/2 DEHYDRATION/UTI ZONIA 2/2 DEHYDRATION/UTI ZONIA 2/2 DEHYDRATION/UTI Reason for Visit Acute and chronic re spiratory failure with hypoxia ZONIA (acute kidney injury) Dehydration Diarrhea Hyperkalemia Hypoxia UTI (urinary tract infection) Chief Complaint LAB WORK RESIDENTIAL LAB WORK RESIDENTIAL LAB WORK ZONIA 2/2 DEHYDRATION/UTI ZONIA 2/2 DEHYDRATION/UTI ZONIA 2/2 DEHYDRATION/UTI ZONIA 2/2 DEHYDRATION/UTI HYPOTENSION AND UTI Reason for Visit Acute and chronic re spiratory failure with hypoxia Diarrhea Hypoxia ZONIA (acute kidney injury) Dehydration Hyperkalemia Acute kidney injury UTI (urinary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 L effusion to some level" per the 03/30 pulmonology progress note Most recent Echo 10/2016 1 dose of IV Lasix given on 03/29 per the MAR Please specify the type of heart failure in the progress notes. For Example: Acute diastolic CHF Acute HFpEF Acute CHF (please specify type) Other (please specify) Unable to determine Thank you, CHRIS Ceja, RN Clinical Line Haul Owner Operator [facility] [phone] After business hours you may contact Bouchra Weldon at [phone] (Weekdays until 10 PM and weekends 8 AM -10 PM) Problem: Pain Goal: Manage acute pain Outcome: Partially Met Goal: Manage chronic pain Outcome: Partially Met Goal: Reduced pain sensation Outcome: Partially Met Goal: Achievement of comfort function goal Outcome: Partially Met Problem: Pressure Ulcer - Risk of Goal: Absence of pressure ulcer Outcome: Partially Met Problem: Falls, Risk of Goal: Absence of falls Outcome: Partially Met Problem: Actual or potential alteration in health Goal: Absence of healthcare acquired conditions Outcome: Partially Met Goal: Knowledge of Interdisciplinary Plan of Care Outcome: Partially Met Goal: Knowledge of Enviroment Outcome: Partially Met Noted documentation of "Acute hypercarbic respiratory failure with altered mentation related to that" per the 03/28 progress note. Clinical Indicators: Per the 03/27 RN neuro assessment: Drowsy, Oriented x 1, poor attention/concentration, poor judgement, poor safety awareness Patient admitted with pneumonia, a copd exacerbation and respiratory failure Please specify the diagnosis that most accurately reflects the patient s mental status. For Example: Metabolic Encephalopathy Encephalopathy (please specify type) Delirium due to (please specify) Other (please specify) Unable to determine Thank you, CHRIS Ceja, RN Clinical Line Haul Owner Operator [facility] [phone] After business hours you may contact Bouchra Weldon at [phone] (Weekdays until 10 PM and weekends 8 AM -10 PM) Problem: Pain Goal: Manage acute pain Outcome: Partially Met Goal: Manage chronic pain Outcome: Partially Met Goal: Reduced pain sensation Outcome: Partially Met Goal: Achievement of comfort function goal Outcome: Partially Met Problem: Pressure Ulcer - Risk of Goal: Absence of pressure ulcer Outcome: Partially Met Problem: Falls, Risk of Goal: Absence of falls Outcome: Partially Met Problem: Actual or potential alteration in health Goal: Absence of healthcare acquired conditions Outcome: Partially Met Goal: Knowledge of Interdisciplinary Plan of Care Outcome: Partially Met Goal: Knowledge of Enviroment Outcome: Partially Met PHYSICAL THERAPY VISIT VARIANCE NOTE Attempted to see patient at this time, but unable secondary to: PT Visit Variance: (Pt cleared by nurse Miranda to attempt evaluation. Attempted to evaluate patient, however pt's eyed closed and not responsive to commands at this time. Sitter Rose Mary at bedside, who reports pt had earlier been trying to pull her BiPAP off, but has otherwise been unresponsive to her as well). Will follow up as appropriate. Associated Order(s): Critical Care Critical Care Performed by: Delta Gilliam MD Authorized by: Delta Gilliam MD Total critical care time: 30 minutes Critical care time was exclusive of separately billable procedures and treating other patients and teaching time. Critical care was necessary to treat or prevent imminent or life-threatening deterioration of the following conditions: respiratory failure. Critical care was time spent personally by me on the following activities: development of treatment plan with patient or surrogate, discussions with primary provider, evaluation of patient's response to treatment, examination of patient, obtaining history from patient or surrogate, ordering and performing treatments and interventions, ordering and review of radiographic studies, ordering and review of laboratory studies, pulse oximetry, re-evaluation of patient's condition and review of old charts. Subsequent provider of critical care: I assumed direction of critical care for this patient from another provider of my specialty. Comments: Severe COPD, co2 >100, bicarb 45, on BIPAP documented in this encounter Noted documentation of "Congestive heart failure acute exacerbation" per the 03/30 pulmonology progress note. Clinical Indicators: "Xray to me shows vascular congestion and likely L effusion to some level" per the 03/30 pulmonology progress note Most recent Echo 10/2016 1 dose of IV Lasix given on 03/29 per the MAR Please specify the type of heart failure in the progress notes. For Example: Acute diastolic CHF Acute HFpEF Acute CHF (please specify type) Other (please specify) Unable to determine Thank you, CHRIS Ceja, RN Clinical Line Haul Owner Operator [facility] [phone] After business hours you may contact Bouchra Weldon at [phone] (Weekdays until 10 PM and weekends 8 AM -10 PM) Problem: Pain Goal: Manage acute pain Outcome: Partially Met Goal: Manage chronic pain Outcome: Partially Met Goal: Reduced pain sensation Outcome: Partially Met Goal: Achievement of comfort function goal Outcome: Partially Met Problem: Pressure Ulcer - Risk of Goal: Absence of pressure ulcer Outcome: Partially Met Problem: Falls, Risk of Goal: Absence of falls Outcome: Partially Met Problem: Actual or potential alteration in health Goal: Absence of healthcare acquired conditions Outcome: Partially Met Goal: Knowledge of Interdisciplinary Plan of Care Outcome: Partially Met Goal: Knowledge of Enviroment Outcome: Partially Met Noted documentation of "Acute hypercarbic respiratory failure with altered mentation related to that" per the 03/28 progress note. Clinical Indicators: Per the 03/27 RN neuro assessment: Drowsy, Oriented x 1, poor attention/concentration, poor judgement, poor safety awareness Patient admitted with pneumonia, a copd exacerbation and respiratory failure Please specify the diagnosis that most accurately reflects the patient s mental status. For Example: Metabolic Encephalopathy Encephalopathy (please specify type) Delirium due to (please specify) Other (please specify) Unable to determine Thank you, CHRIS Ceja, RN Clinical Line Haul Owner Operator [facility] [phone] After business hours you may contact Bouchra Weldon at [phone] (Weekdays until 10 PM and weekends 8 AM -10 PM) Problem: Pain Goal: Manage acute pain Outcome: Partially Met Goal: Manage chronic pain Outcome: Partially Met Goal: Reduced pain sensation Outcome: Partially Met Goal: Achievement of comfort function goal Outcome: Partially Met Problem: Pressure Ulcer - Risk of Goal: Absence of pressure ulcer Outcome: Partially Met Problem: Falls, Risk of Goal: Absence of falls Outcome: Partially Met Problem: Actual or potential alteration in health Goal: Absence of healthcare acquired conditions Outcome: Partially Met Goal: Knowledge of Interdisciplinary Plan of Care Outcome: Partially Met Goal: Knowledge of Enviroment Outcome: Partially Met PHYSICAL THERAPY VISIT VARIANCE NOTE Attempted to see patient at this time, but unable secondary to: PT Visit Variance: (Pt cleared by nurse Miranda to attempt evaluation. Attempted to evaluate patient, however pt's eyed closed and not responsive to commands at this time. Sitter Rose Mary at bedside, who reports pt had earlier been trying to pull her BiPAP off, but has otherwise been unresponsive to her as well). Will follow up as appropriate. Associated Order(s): Critical Care Critical Care Performed by: Delta Gilliam MD Authorized by: Delta Gilliam MD Total critical care time: 30 minutes Critical care time was exclusive of separately billable procedures and treating other patients and teaching time. Critical care was necessary to treat or prevent imminent or life-threatening deterioration of the following conditions: respiratory failure. Critical care was time spent personally by me on the following activities: development of treatment plan with patient or surrogate, discussions with primary provider, evaluation of patient's response to treatment, examination of patient, obtaining history from patient or surrogate, ordering and performing treatments and interventions, ordering and review of radiographic studies, ordering and review of laboratory studies, pulse oximetry, re-evaluation of patient's condition and review of old charts. Subsequent provider of critical care: I assumed direction of critical care for this patient from another provider of my specialty. Comments: Severe COPD, co2 >100, bicarb 45, on BIPAP documented in this encounter INFORMATION SOURCE (unrecogn ized section and content) DATE CREATED AUTHOR 10/03/2017 [facility] DATE CREATED AUTHOR AUTHOR'S ORGANIZ ATION 02/15/2022 [facility] DATE CREATED AUTHOR AUTHOR'S ORGANIZ ATION 03/15/2022 [facility] DATE CREATED AUTHOR AUTHOR'S ORGANIZ ATION 04/01/2022 [facility] DATE CREATED AUTHOR AUTHOR'S ORGANIZ ATION 04/26/2023 [facility] DATE CREATED AUTHOR AUTHOR'S ORGANIZ ATION 09/23/2024 [facility] Reason for Visit (unrecogniz ed section and content) Reason Comments Hypertension Reestablish care las t seen 04/07/14 Reason Comments Shortness of Breath Status Reason Specialty Diagnoses / Procedures Referre d By Contact Referred To Contact Diagnoses Acute respiratory distress Hypokalemia Acute respiratory acidosis Acute exacerbation of chronic obstructive pulmonary disease (COPD) ([facility]) Joni Short MD - 03/27/2020 1:20 PM ESTRangelic, Joni Julien MD - 03/27/2020 1:20 PM EST H&P Notes (unrecognized sect ion and content) HISTORY AND PHYSICAL Patient Name: He Laureano Admit Date: MR #: [id number] : 1960 Physicians: Isa Fuchs PA-C (Family); No ref. provider found (Referring) Chief Complaint/Reason for Visit: Increasing shortness of breath Assessment and Plan: 1. Acute hypercarbic respiratory failure and patient is on BiPAP/chronic hypoxic respiratory failure on 4 L of oxygen at home 2. Community-acquired pneumonia/exacerbation of COPD 3. Anxiety/depression/hypertension/CAD 4. Peptic ulcer disease/irritable bowel syndrome/arthritis/history of CVA in the past History of Present Illness: He Laureano is a 59 y.o. female presenting from home with c/o patient has been having increasing shortness of breath for more than a day and coughing some Denies any fever or chills Denies any swelling on the legs Denies any chest pain She is having shortness of breath even at rest Her appetite has been somewhat decreased History: Past Medical History: Diagnosis Date Anemia Anxiety Arthritis Asthma Cancer (HCC) breast at 22 yrs old Cardiac murmur 10/31/2019 Cataract CHF (congestive heart failure) (HCC) Chronic respiratory failure with hypercapnia (HCC) 10/31/2019 COPD (chronic obstructive pulmonary disease) (HCC) Depression Dermatitis Disease of thyroid gland Essential hypertension, benign 10/31/2019 GERD (gastroesophageal reflux disease) Heart attack (HCC) Heart murmur History of stress test Hyperlipidemia Hypertension Injury of back Insomnia 10/31/2019 Irritable bowel syndrome 10/31/2019 Neuromuscular disorder (HCC) Oxygen dependent 2-3 liters at all times Peptic ulceration 13 peptic PMB (postmenopausal bleeding) 07/19/2015 Simple endometrial hyperplasia 08/04/2015 Stroke (HCC) mini Past Surgical History: Procedure Laterality Date HYSTEROSCOPY W/ DILATATION AND CURETTAGE N/A 08/02/2015 Procedure: DILATION AND CURETTAGE; Surgeon: Reilly Box MD; [place] [facility] [place]; Service: TUBAL LIGATION Family History Problem Relation Age of Onset Arthritis Mother Cancer Mother uterine COPD Mother Diabetes Mother Heart disease Mother Cystic fibrosis Sister Cystic fibrosis Brother Diabetes Brother Alcohol abuse Son Social History Socioeconomic History Marital status: Spouse name: Not on file Number of children: 8 Years of education: 12 Highest education level: 12th grade Occupational History Not on file Social Needs Financial resource strain: Not very hard Food insecurity Worry: Never true Inability: Never true Transportation needs Medical: No Non-medical: No Tobacco Use Smoking status: Current Every Day Smoker Packs/day: 0.50 Years: 25.00 Pack years: 12.50 Types: Cigarettes Smokeless tobacco: Never Used Tobacco comment: states a pk every 2 days Substance and Sexual Activity Alcohol use: No Drug use: No Sexual activity: Not Currently Lifestyle Physical activity Days per week: 0 days Minutes per session: 0 min Stress: Very much Relationships Social connections Talks on phone: More than three times a week Gets together: Never Attends pentecostalism service: Never Active member of club or organization: No Attends meetings of clubs or organizations: Never Relationship status: Other Topics Concern Not on file Social History Narrative Not on file Allergy Information: I have reviewed the patient's allergies. Aspirin, Codeine, Ibuprofen, and Penicillin Home Medications: Outpatient Medications as of 03/27/2020 Medication Sig albuterol (PROVENTIL) 2.5 mg /3 mL (0.083 %) nebulizer solution Use one vial every 6-8 hours as needed via nebulization. . ammonium lactate (LAC-HYDRIN) 12 % lotion Apply topically 2 (two) times a day as needed for dry skin . atorvastatin (LIPITOR) 20 MG tablet Take 1 (one) tablet (20 mg total) by mouth nightly . azithromycin (Z-SALMA) 5 day dose pack Take 2 tablets PO on day one then 1 tablet PO daily for 4 days . benzonatate (TESSALON) 200 MG capsule Take 1 (one) capsule (200 mg total) by mouth 3 (three) times a day as needed for cough . budesonide-formoteroL (SYMBICORT) 160-4.5 mcg/actuation inhaler Inhale 2 (two) puffs 2 (two) times a day . famotidine (Acid Private Eye, famotidine,) 20 MG tablet Take 1 (one) tablet (20 mg total) by mouth 2 (two) times a day . furosemide (LASIX) 40 MG tablet Take 1 (one) tablet (40 mg total) by mouth 2 (two) times a day . hydrOXYzine (ATARAX) 50 MG tablet Take 1 (one) tablet (50 mg total) by mouth 3 (three) times a day as needed for itching . ipratropium-albuteroL (DUO-NEB) 0.5-2.5 mg/3 ml nebulizer Take 3 mL by nebulization every 4 to 6 hours as needed for wheezing . losartan (COZAAR) 50 MG tablet Take 1 (one) tablet (50 mg total) by mouth daily . montelukast (SINGULAIR) 10 mg tablet Take 1 (one) tablet (10 mg total) by mouth daily . ondansetron (Zofran ODT) 4 MG disintegrating tablet Dissolve 1 (one) tablet (4 mg total) on top of tongue every 8 (eight) hours as needed for nausea . pantoprazole (PROTONIX) 20 MG tablet Take 1 (one) tablet (20 mg total) by mouth daily . potassium chloride 10 MEQ CR tablet Take 4 (four) tablets (40 mEq total) by mouth daily . ProAir HFA 90 mcg/actuation inhaler Inhale 2 (two) puffs every 6 (six) hours as needed for wheezing . roflumilast (DALIRESP) 500 mcg tablet Take 1 (one) tablet (500 mcg total) by mouth daily . sucralfate (CARAFATE) 100 mg/mL suspension Take 10 mL (1 g total) by mouth 4 (four) times a day before meals . tiotropium bromide (Spiriva Respimat) 2.5 mcg/actuation Mist Two inhalations once daily . Review of Systems: Constitutional:No fever, no weight loss Eyes:No diplopia ENT:No sinus drainage GI:No abdominal pain.No abdominal distention :No dysuria Neuro:No headache MuscSkel:No arthralgias Endo:No polyuria Heme/lymphatic:No apparent lymphadenopathy Allergic/Immunologic:No hives Psych:No unusual mood swings Physical Examination: Vital Signs: BP (!) 142/96 Pulse (!) 104 Temp 98.9 F (37.2 C) (Axillary) Resp (!) 25 Ht 5' 6" Wt (!) 170.6 kg (376 lb 1.7 oz) SpO2 91% BMI 60.70 kg/m General: Alert, cooperative, mild respiratory distress distress, appears stated age Head: Normocephalic, without obvious abnormality, atraumatic Eyes: PERRL, conjunctiva/corneas clear, EOM's intact, fundi benign both eyes Throat: Lips, mucosa, and tongue normal; teeth and gums normal Neck: Supple, symmetrical, trachea midline, no adenopathy; thyroid: no enlargement/tenderness/nodules; no carotid bruit or JVD Back: Symmetric, no curvature, ROM normal, no CVA tenderness Lungs: Bilateral decreased breath sounds Chest Wall: No tenderness or deformity Cardiovascular: Regular rate and rhythm, S1 and S2 normal, grade 2/6 systolic murmur,no rub or gallop; Pulses 2+ and symmetric all extremities Abdomen: Soft, non-tender, bowel sounds active all four quadrants,no masses, no organomegaly Extremities: Normal, atraumatic, no cyanosis or edema Skin: Skin color, texture, turgor normal, no rashes or lesions Musculoskeletal: Full range of motion of all extremities; no joint edema Neurologic: CNII-XII intact; normal strength, sensation and reflexes throughout Psych: Laboratory and Additional Data Reviewed: Laboratory 03/27/20 1:22 PM Radiology 03/27/20 1:22 PM Cardiology 03/27/20 1:22 PM Medications 03/27/20 1:22 PM Transcriptions 03/27/20 1:22 PM documented in this encounter HISTORY AND PHYSICAL Patient Name: He Laureano Admit Date: MR #: [id number] : 1960 Physicians: Isa Fuchs PA-C (Family); No ref. provider found (Referring) Chief Complaint/Reason for Visit: Increasing shortness of breath Assessment and Plan: 1. Acute hypercarbic respiratory failure and patient is on BiPAP/chronic hypoxic respiratory failure on 4 L of oxygen at home 2. Community-acquired pneumonia/exacerbation of COPD 3. Anxiety/depression/hypertension/CAD 4. Peptic ulcer disease/irritable bowel syndrome/arthritis/history of CVA in the past History of Present Illness: He Laureano is a 59 y.o. female presenting from home with c/o patient has been having increasing shortness of breath for more than a day and coughing some Denies any fever or chills Denies any swelling on the legs Denies any chest pain She is having shortness of breath even at rest Her appetite has been somewhat decreased History: Past Medical History: Diagnosis Date Anemia Anxiety Arthritis Asthma Cancer ([facility]) breast at 22 yrs old Cardiac murmur 10/31/2019 Cataract CHF (congestive heart failure) ([facility]) Chronic respiratory failure with hypercapnia (HCC) 10/31/2019 COPD (chronic obstructive pulmonary disease) ([facility]) Depression Dermatitis Disease of thyroid gland Essential hypertension, benign 10/31/2019 GERD (gastroesophageal reflux disease) Heart attack ([facility]) Heart murmur History of stress test Hyperlipidemia Hypertension Injury of back Insomnia 10/31/2019 Irritable bowel syndrome 10/31/2019 Neuromuscular disorder ([facility]) Oxygen dependent 2-3 liters at all times Peptic ulceration 13 peptic PMB (postmenopausal bleeding) 07/19/2015 Simple endometrial hyperplasia 08/04/2015 Stroke ([facility]) mini Past Surgical History: Procedure Laterality Date HYSTEROSCOPY W/ DILATATION AND CURETTAGE N/A 08/02/2015 Procedure: DILATION AND CURETTAGE; Surgeon: Reilly Box MD; [place] [facility] [place]; Service: TUBAL LIGATION Family History Problem Relation Age of Onset Arthritis Mother Cancer Mother uterine COPD Mother Diabetes Mother Heart disease Mother Cystic fibrosis Sister Cystic fibrosis Brother Diabetes Brother Alcohol abuse Son Social History Socioeconomic History Marital status: Spouse name: Not on file Number of children: 8 Years of education: 12 Highest education level: 12th grade Occupational History Not on file Social Needs Financial resource strain: Not very hard Food insecurity Worry: Never true Inability: Never true Transportation needs Medical: No Non-medical: No Tobacco Use Smoking status: Current Every Day Smoker Packs/day: 0.50 Years: 25.00 Pack years: 12.50 Types: Cigarettes Smokeless tobacco: Never Used Tobacco comment: states a pk every 2 days Substance and Sexual Activity Alcohol use: No Drug use: No Sexual activity: Not Currently Lifestyle Physical activity Days per week: 0 days Minutes per session: 0 min Stress: Very much Relationships Social connections Talks on phone: More than three times a week Gets together: Never Attends pentecostalism service: Never Active member of club or organization: No Attends meetings of clubs or organizations: Never Relationship status: Other Topics Concern Not on file Social History Narrative Not on file Allergy Information: I have reviewed the patient's allergies. Aspirin, Codeine, Ibuprofen, and Penicillin Home Medications: Outpatient Medications as of 03/27/2020 Medication Sig albuterol (PROVENTIL) 2.5 mg /3 mL (0.083 %) nebulizer solution Use one vial every 6-8 hours as needed via nebulization. . ammonium lactate (LAC-HYDRIN) 12 % lotion Apply topically 2 (two) times a day as needed for dry skin . atorvastatin (LIPITOR) 20 MG tablet Take 1 (one) tablet (20 mg total) by mouth nightly . azithromycin (Z-SALMA) 5 day dose pack Take 2 tablets PO on day one then 1 tablet PO daily for 4 days . benzonatate (TESSALON) 200 MG capsule Take 1 (one) capsule (200 mg total) by mouth 3 (three) times a day as needed for cough . budesonide-formoteroL (SYMBICORT) 160-4.5 mcg/actuation inhaler Inhale 2 (two) puffs 2 (two) times a day . famotidine (Acid Private Eye, famotidine,) 20 MG tablet Take 1 (one) tablet (20 mg total) by mouth 2 (two) times a day . furosemide (LASIX) 40 MG tablet Take 1 (one) tablet (40 mg total) by mouth 2 (two) times a day . hydrOXYzine (ATARAX) 50 MG tablet Take 1 (one) tablet (50 mg total) by mouth 3 (three) times a day as needed for itching . ipratropium-albuteroL (DUO-NEB) 0.5-2.5 mg/3 ml nebulizer Take 3 mL by nebulization every 4 to 6 hours as needed for wheezing . losartan (COZAAR) 50 MG tablet Take 1 (one) tablet (50 mg total) by mouth daily . montelukast (SINGULAIR) 10 mg tablet Take 1 (one) tablet (10 mg total) by mouth daily . ondansetron (Zofran ODT) 4 MG disintegrating tablet Dissolve 1 (one) tablet (4 mg total) on top of tongue every 8 (eight) hours as needed for nausea . pantoprazole (PROTONIX) 20 MG tablet Take 1 (one) tablet (20 mg total) by mouth daily . potassium chloride 10 MEQ CR tablet Take 4 (four) tablets (40 mEq total) by mouth daily . ProAir HFA 90 mcg/actuation inhaler Inhale 2 (two) puffs every 6 (six) hours as needed for wheezing . roflumilast (DALIRESP) 500 mcg tablet Take 1 (one) tablet (500 mcg total) by mouth daily . sucralfate (CARAFATE) 100 mg/mL suspension Take 10 mL (1 g total) by mouth 4 (four) times a day before meals . tiotropium bromide (Spiriva Respimat) 2.5 mcg/actuation Mist Two inhalations once daily . Review of Systems: Constitutional:No fever, no weight loss Eyes:No diplopia ENT:No sinus drainage GI:No abdominal pain.No abdominal distention :No dysuria Neuro:No headache MuscSkel:No arthralgias Endo:No polyuria Heme/lymphatic:No apparent lymphadenopathy Allergic/Immunologic:No hives Psych:No unusual mood swings Physical Examination: Vital Signs: BP (!) 142/96 Pulse (!) 104 Temp 98.9 F (37.2 C) (Axillary) Resp (!) 25 Ht 5' 6" Wt (!) 170.6 kg (376 lb 1.7 oz) SpO2 91% BMI 60.70 kg/m General: Alert, cooperative, mild respiratory distress distress, appears stated age Head: Normocephalic, without obvious abnormality, atraumatic Eyes: PERRL, conjunctiva/corneas clear, EOM's intact, fundi benign both eyes Throat: Lips, mucosa, and tongue normal; teeth and gums normal Neck: Supple, symmetrical, trachea midline, no adenopathy; thyroid: no enlargement/tenderness/nodules; no carotid bruit or JVD Back: Symmetric, no curvature, ROM normal, no CVA tenderness Lungs: Bilateral decreased breath sounds Chest Wall: No tenderness or deformity Cardiovascular: Regular rate and rhythm, S1 and S2 normal, grade 2/6 systolic murmur,no rub or gallop; Pulses 2+ and symmetric all extremities Abdomen: Soft, non-tender, bowel sounds active all four quadrants,no masses, no organomegaly Extremities: Normal, atraumatic, no cyanosis or edema Skin: Skin color, texture, turgor normal, no rashes or lesions Musculoskeletal: Full range of motion of all extremities; no joint edema Neurologic: CNII-XII intact; normal strength, sensation and reflexes throughout Psych: Laboratory and Additional Data Reviewed: Laboratory 03/27/20 1:22 PM Radiology 03/27/20 1:22 PM Cardiology 03/27/20 1:22 PM Medications 03/27/20 1:22 PM Transcriptions 03/27/20 1:22 PM documented in this encounter Cornell Webber MD - 03/30/2020 5:20 AM Pooja Mcallister RN - 03/29/2020 12:16 PM Evelin Longo, PT - 03/29/2020 8:10 AM Cornell Chen MD - 03/30/2020 5:20 AM EST Consult Notes (unrecognized section and content) Associated Order(s): IP CONSULT TO PULMONOLOGY Pulmonary Medicine Consult Note Reason for Consultation: COPD exacerbation Impression and Recommendations Acute on chronic respiratory failure Baseline COPD 4 L, Baseline MARISOL but not on CPAP Congestive heart failure acute exacerbation - xray to me shows vascular congestion and likely L effusion to some level - Review of ABGs shows PCO2 chroniclally is probably 70s-80s even - I would diurese as able and suspect contributory component to be CHF - Decrease steroids to 60mg q 12 hour - Acetazolamide x 2 doses today given post hypercapneic metabolic alkalosis and also need for some diuresiswhich may hel promote some diuresis as well (250mg ordered) - continue scheduled duoneb, symbicort, empiric levaquin (her xray findings could also represent some level of atyical infection - will follow - discussed with RN this AM we should try again nasal canula later today post acetazolamide Cornell Webber MD Pulmonary & Critical Care Medicine, Interventional Pulmonology History of Presenting Illness: He Laureano is a 59 y.o. female, current smoker, below medical history that is reviewed, COPD on home oxygen 4 LPM, CAD and CHF, MARISOL not on cpap and last saw Baltazar Webber > 4 years ago, who was admitted on 03/27/20 for worsening dyspnea and started on therapy for COPD exacerbation. She saw Baltazar Webber > 4 years ago. Home COPD: she is on symbicort/roflumilast/spiriva as given by her PMD Since admission 03/27/20, she remains on solumderol, solumedrol 60 mg IV q 6 hour. We are consulted as she is unable to wean off of NIPPV. On IV fluid 50cc/hr since 03/27/20. Seen early AM 03/30/20, she feels her dyspnea and confusion have improved since admission. She is on NIPPV 50%. Speaking fully, not in distress Review of Systems: Relevant ROS is as above, remainder of systems negative Past Medical, Surgical, Family, and Social History: Past Medical History: Diagnosis Date Anemia Anxiety Arthritis Asthma Cancer (HCC) breast at 22 yrs old Cardiac murmur 10/31/2019 Cataract CHF (congestive heart failure) ([facility]) Chronic respiratory failure with hypercapnia ([facility]) 10/31/2019 COPD (chronic obstructive pulmonary disease) ([facility]) Depression Dermatitis Disease of thyroid gland Essential hypertension, benign 10/31/2019 GERD (gastroesophageal reflux disease) Heart attack ([facility]) Heart murmur History of stress test Hyperlipidemia Hypertension Injury of back Insomnia 10/31/2019 Irritable bowel syndrome 10/31/2019 Neuromuscular disorder ([facility]) Oxygen dependent 2-3 liters at all times Peptic ulceration 13 peptic PMB (postmenopausal bleeding) 07/19/2015 Simple endometrial hyperplasia 08/04/2015 Stroke ([facility]) mini Past Surgical History: Procedure Laterality Date HYSTEROSCOPY W/ DILATATION AND CURETTAGE N/A 08/02/2015 Procedure: DILATION AND CURETTAGE; Surgeon: Reilly Box MD; [place] [facility] [place]; Service: TUBAL LIGATION Family History Problem Relation Age of Onset Arthritis Mother Cancer Mother uterine COPD Mother Diabetes Mother Heart disease Mother Cystic fibrosis Sister Cystic fibrosis Brother Diabetes Brother Alcohol abuse Son Social History Socioeconomic History Marital status: Spouse name: Not on file Number of children: 8 Years of education: 12 Highest education level: 12th grade Occupational History Not on file Social Needs Financial resource strain: Not very hard Food insecurity Worry: Never true Inability: Never true Transportation needs Medical: No Non-medical: No Tobacco Use Smoking status: Current Every Day Smoker Packs/day: 0.50 Years: 25.00 Pack years: 12.50 Types: Cigarettes Smokeless tobacco: Never Used Tobacco comment: states a pk every 2 days Substance and Sexual Activity Alcohol use: No Drug use: No Sexual activity: Not Currently Lifestyle Physical activity Days per week: 0 days Minutes per session: 0 min Stress: Very much Relationships Social connections Talks on phone: More than three times a week Gets together: Never Attends pentecostalism service: Never Active member of club or organization: No Attends meetings of clubs or organizations: Never Relationship status: Other Topics Concern Not on file Social History Narrative Not on file Allergies and Medications: Allergies: I have reviewed the patient's allergies. Aspirin, Codeine, Ibuprofen, and Penicillin Scheduled Meds: atorvastatin 20 mg Oral Nightly budesonide-formoteroL 2 puff Inhalation BID ipratropium-albuteroL 3 mL Nebulization Q6H MARY levoFLOXacin 750 mg Intravenous Q24H losartan 50 mg Oral Daily with lunch methylPREDNISolone sodium succinate 60 mg Intravenous Q6H pantoprazole 20 mg Oral Daily roflumilast 500 mcg Oral Daily sodium chloride (PF) 5 mL Intravenous Q8H MARY sucralfate 1 g Tube 4x daily before meals Continuous Infusions: sodium chloride 0.9 % Stopped (03/30/20 0107) Select home or hospital medications: Prior to Admission medications Medication Sig Start Date End Date Taking? Authorizing Provider albuterol (PROVENTIL) 2.5 mg /3 mL (0.083 %) nebulizer solution Use one vial every 6-8 hours as needed via nebulization. . 03/19/20 Yes Isa Fuchs PA-C ammonium lactate (LAC-HYDRIN) 12 % lotion Apply topically 2 (two) times a day as needed for dry skin . 03/19/20 Yes Isa Fuchs PA-C atorvastatin (LIPITOR) 20 MG tablet Take 1 (one) tablet (20 mg total) by mouth nightly . 02/12/20 Yes Isa Fuchs PA-C benzonatate (TESSALON) 200 MG capsule Take 1 (one) capsule (200 mg total) by mouth 3 (three) times a day as needed for cough . 03/19/20 Yes Isa Fuchs PA-C budesonide-formoteroL (SYMBICORT) 160-4.5 mcg/actuation inhaler Inhale 2 (two) puffs 2 (two) times a day . 02/12/20 Yes Isa Fuchs PA-C famotidine (Acid Private Eye, famotidine,) 20 MG tablet Take 1 (one) tablet (20 mg total) by mouth 2 (two) times a day . 03/19/20 Yes Isa Fuchs PA-C furosemide (LASIX) 40 MG tablet Take 1 (one) tablet (40 mg total) by mouth 2 (two) times a day . 02/12/20 Yes Isa Fuchs PA-C hydrOXYzine (ATARAX) 50 MG tablet Take 1 (one) tablet (50 mg total) by mouth 3 (three) times a day as needed for itching . 02/12/20 Yes Isa Fuchs PA-C losartan (COZAAR) 50 MG tablet Take 1 (one) tablet (50 mg total) by mouth daily . 02/12/20 Yes Isa Fuchs PA-C montelukast (SINGULAIR) 10 mg tablet Take 1 (one) tablet (10 mg total) by mouth daily . 02/12/20 Yes Isa Fuchs PA-C ondansetron (Zofran ODT) 4 MG disintegrating tablet Dissolve 1 (one) tablet (4 mg total) on top of tongue every 8 (eight) hours as needed for nausea . 02/12/20 Yes Isa Fuchs PA-C pantoprazole (PROTONIX) 20 MG tablet Take 1 (one) tablet (20 mg total) by mouth daily . 02/12/20 Yes Isa Fuchs PA-C ProAir HFA 90 mcg/actuation inhaler Inhale 2 (two) puffs every 6 (six) hours as needed for wheezing . 02/12/20 02/11/21 Yes Isa Fuchs PA-C roflumilast (DALIRESP) 500 mcg tablet Take 1 (one) tablet (500 mcg total) by mouth daily . 02/12/20 Yes Isa Fuchs PA-C sucralfate (CARAFATE) 100 mg/mL suspension Take 10 mL (1 g total) by mouth 4 (four) times a day before meals . 02/12/20 Yes Isa Fuchs PA-C tiotropium bromide (Spiriva Respimat) 2.5 mcg/actuation Mist Two inhalations once daily . 02/12/20 Yes Isa Fuchs PA-C azithromycin (Z-SALMA) 5 day dose pack Take 2 tablets PO on day one then 1 tablet PO daily for 4 days . 03/19/20 Isa Fuchs PA-C ipratropium-albuteroL (DUO-NEB) 0.5-2.5 mg/3 ml nebulizer Take 3 mL by nebulization every 4 to 6 hours as needed for wheezing . 10/31/19 Isa Fuchs PA-C potassium chloride 10 MEQ CR tablet Take 4 (four) tablets (40 mEq total) by mouth daily . 02/12/20 Isa Fuchs PA-C Exam: Respiratory Support FiO2 (%): 50 Vital Signs: Temp: [97.3 F (36.3 C)-98.9 F (37.2 C)] 98.1 F (36.7 C) Heart Rate: [82-101] 88 Resp: [14-18] 16 BP: (123-153)/(73-89) 124/73 FiO2 (%): 50 I/O last 3 completed shifts: In: 978.4 [P.O.:240; I.V.:588.4; IV Piggyback:150] Out: 1400 [Urine:1400] General: On NIPPV, not in distress. Speaking normally, morbid obesity Head: Normocephalic. Sclerae anicteric. Trachea is midline. Neck: Supple. No JVD. No lymphadenopathy. Cardiovascular: Regular rate and rhythm. Respiratory: Normal respiratory effort. Clear to ausculation posteriorly Abdominal: Soft, nondistended, nontender masses or organomegaly noted. Musculoskeletal: No obvious deformity. Extremities: No clubbing or cyanosis. Neurological: Non-focal examination. Skin: Normal turgor, no diffuse rash appreciated. Laboratory Data and Critical Care Checklist: [x] Inpatient Medications reviewed. [x] Labs reviewed. Pertinent findings noted: 03/29/20 cbc normal. Wbc normal on 03/27/20 03/29/20 bmp reviewed: bicarb >45. BUN/Cr 36/0.90 bnp 529, 288 03/27/20 trop x 2 negative 03/27/20 covid-19 not detected NO other micro [x] Radiology reviewed. Pertinent findings noted: Chest xray 03/27/20: increased vascular congestion and likely left basilar effusion as well, NO obvious focal airspace disease ECHO 10/2016: CONCLUSIONS 1. Normal chamber sizes. 2. This was a technically difficult study with suboptimal views. PT MORBIDLY OBESE AND REFUSED TO COOPERATE WITH EXAM DUE TO BREATHING ISSUES. UNABLE TO LAY ON LEFT SIDE. 3. Overall left ventricular systolic function is normal with, an EF between 55 - 60 %. 4. Mild mitral regurgitation is present. 5. There is no pericardial effusion. Cornell Webber MD 5:20 AM Associated Order(s): IP CONSULT TO CARE MANAGEMENT COMPLEX DISCHARGE Date: 03/29/2020 Time: 12:17 PM Patient Name: He Laureano Date of : 1960 Sex: Female Unable to have conversation with pt, she is currently on Bipap. Per nursing, she is A/Ox3. Did speak with her to let her know SW/CM will be following for any discharge needs. She lives at home with her SO, currently has home O2. Received call from pt's Waiver [facility] Summer. Pt has fpc once a week, aide services 2 hours a day Sun-Sunday. Physical Therapy PHYSICAL THERAPY EVALUATION NOTE Skilled Therapy Needs After Discharge Anticipate Resolution of Current Assessment Limitations Including: Social Support, Pain, Mechanical Barriers Are Skilled Therapy Services Needed After Discharge: Yes Intensity of Skilled Therapy: 2-3 days per week Anticipated Duration of Skilled Therapy: Duration 10 - 30 days DME Recommendation: Wheeled walker DME Rationale: Patient's condition prevents him/her from accomplishing ADL without recommended equipment, Patient's condition creates an increased risk of safety hazard without recommended equipment Rehab Potential: Good Outcomes Measures Prior Function - Basic Mobility Raw Score: 21 Points Prior Function - Basic Mobility % Impaired: 29.52% functionally impaired AM-PAC - Basic Mobility Raw Score: 14 Points AM-PAC - Basic Mobility % Impaired: 53.86% functionally impaired Physical Therapy Assessment History: The following factors influence the patient's participation in the PT plan of care: Personal Factors: Limited Baseline Mobility, Apprehensive Toward Mobility, Decreased Insight The following co-morbidities (from this admission or prior) influence the patient's participation in this plan of care: COPD Number of History elements affecting this patient's PT plan of care: 1 to 2 Examination of Body Systems: The patient presents with: Musculoskeletal impairments: Strength, Pain, Functional Endurance Neurologic Impairments: Balance Cardiopulmonary Impairments: Activity Tolerance, O2 Saturation Regulation with Activity. These impairments result in limitations of Gait, Functional Transfers, Safety Awareness, Activity Tolerance, Insight. These impairments result in restrictions of Household mobility, Community mobility. Number of Body Systems elements affecting this patient's PT plan of care: 3 or more. Clinical Presentation: The patient's clinical presentation for this PT evaluation is evolving as evidenced by current PT documentation. Activity Tolerance Activity Tolerance: Tolerates 10 - 20 min activity with multiple rests(on BiPAP. SpO2 remained in high 80s to low 90s with mobility) Therapy Precautions Orthotic Devices: No Weight Bearing Status: [facility] Precautions: Fall risk Balance Sitting Balance - Static: Supports self independantly with both upper extremities Sitting Balance - Dynamic: Moves / returns trunkal midpoint 1-2 inches in multiple planes Standing Balance - Static: Supports self independantly with both upper extremities Standing Balance - Dynamic: Moves / returns trunkal midpoint 1-2 inches in multiple planes Bed Mobility Rolling: Mod Supine to Sit: Mod Skilled Intervention: Education given for safe bed mobility and use of HR with good return. She does require assistance at trunk to reach EOB. Transfers Sit to Stand: Min Bed to Chair: Contact guard Spa Manager: Wheeled walker, 1 person, Gait belt Skilled Intervention: Education given for safe transfer techniques and use of BUE for ascent and descent with fair return. Patient does require additional verbal cue for hand placement. Gait/Locomotion Gait Assistance: Contact guard Assistive Device: Wheeled walker, Other (Comment)(Gait belt) Distance: 8 Feet Pattern: Step to, R decreased step length, L decreased step length, Forward flexed(Decreased cadencce) Skilled Intervention: Education given for safe ambulation techniques and use of FWW for safety. Verbal cues given for pursed lip breathing with good return. Exercise I utilized the following PPE throughout this therapy session: Gloves, Goggles, and Surgical mask A Bumper And Painter Selwyn Camacho, wore Gloves, Goggles, and Surgical mask and assisted during therapy session. The patient was left seated in bedside chair with call light and bedside tray left within reach. Chair alarm placed due to patient's fall risk score. White board updated. Patient denied additional needs. Chair alarm and judith alarm placed due to fall risk score of 4. Based on objective findings during the evaluation and prior level of function, this patient should be safe for discharge home pending functional progression during this admission. Home Living Type of Home: House Home Layout: One level, Ramped entrance Bathroom Accessibility: Accessible Home Equipment: Wheelchair-manual Additional Comments: Patient uses w/c for long distances. She walks short distances from bedroom to dining room and back with no device. Prior Level of Function Level of [place]: Needs assistance with ADLs, Needs assistance with homemaking Lives With: Significant other Receives Help From: stadium attendant(Aide every day) ADL Assistance: Needs assistance Homemaking Assistance: Needs assistance Past Medical History: Diagnosis Date Anemia Anxiety Arthritis Asthma Cancer ([facility]) breast at 22 yrs old Cardiac murmur 10/31/2019 Cataract CHF (congestive heart failure) ([facility]) Chronic respiratory failure with hypercapnia ([facility]) 10/31/2019 COPD (chronic obstructive pulmonary disease) ([facility]) Depression Dermatitis Disease of thyroid gland Essential hypertension, benign 10/31/2019 GERD (gastroesophageal reflux disease) Heart attack ([facility]) Heart murmur History of stress test Hyperlipidemia Hypertension Injury of back Insomnia 10/31/2019 Irritable bowel syndrome 10/31/2019 Neuromuscular disorder ([facility]) Oxygen dependent 2-3 liters at all times Peptic ulceration 13 peptic PMB (postmenopausal bleeding) 07/19/2015 Simple endometrial hyperplasia 08/04/2015 Stroke ([facility]) mini Past Surgical History: Procedure Laterality Date HYSTEROSCOPY W/ DILATATION AND CURETTAGE N/A 08/02/2015 Procedure: DILATION AND CURETTAGE; Surgeon: Reilly Box MD; [place] [facility] [place]; Service: TUBAL LIGATION For complete objective data, detailed plan of care and patient education refer to: PT EVALUATION flow sheet, PT TREATMENT flow sheet, patient Plan of Care, Plan of Care progress note, and Patient Education. This note stands as the current Discharge Summary upon patient discharge from the hospital or completion of Physical Therapy Plan of Care. documented in this encounter Associated Order(s): IP CONSULT TO PULMONOLOGY Pulmonary Medicine Consult Note Reason for Consultation: COPD exacerbation Impression and Recommendations Acute on chronic respiratory failure Baseline COPD 4 L, Baseline MARISOL but not on CPAP Congestive heart failure acute exacerbation - xray to me shows vascular congestion and likely L effusion to some level - Review of ABGs shows PCO2 chroniclally is probably 70s-80s even - I would diurese as able and suspect contributory component to be CHF - Decrease steroids to 60mg q 12 hour - Acetazolamide x 2 doses today given post hypercapneic metabolic alkalosis and also need for some diuresiswhich may hel promote some diuresis as well (250mg ordered) - continue scheduled duoneb, symbicort, empiric levaquin (her xray findings could also represent some level of atyical infection - will follow - discussed with RN this AM we should try again nasal canula later today post acetazolamide Cornell Webber MD Pulmonary & Critical Care Medicine, Interventional Pulmonology History of Presenting Illness: He Laureano is a 59 y.o. female, current smoker, below medical history that is reviewed, COPD on home oxygen 4 LPM, CAD and CHF, MARISOL not on cpap and last saw Baltazar Webber > 4 years ago, who was admitted on 03/27/20 for worsening dyspnea and started on therapy for COPD exacerbation. She saw Baltazar Webber > 4 years ago. Home COPD: she is on symbicort/roflumilast/spiriva as given by her PMD Since admission 03/27/20, she remains on solumderol, solumedrol 60 mg IV q 6 hour. We are consulted as she is unable to wean off of NIPPV. On IV fluid 50cc/hr since 03/27/20. Seen early AM 03/30/20, she feels her dyspnea and confusion have improved since admission. She is on NIPPV 50%. Speaking fully, not in distress Review of Systems: Relevant ROS is as above, remainder of systems negative Past Medical, Surgical, Family, and Social History: Past Medical History: Diagnosis Date Anemia Anxiety Arthritis Asthma Cancer (HCC) breast at 22 yrs old Cardiac murmur 10/31/2019 Cataract CHF (congestive heart failure) ([facility]) Chronic respiratory failure with hypercapnia (HCC) 10/31/2019 COPD (chronic obstructive pulmonary disease) ([facility]) Depression Dermatitis Disease of thyroid gland Essential hypertension, benign 10/31/2019 GERD (gastroesophageal reflux disease) Heart attack ([facility]) Heart murmur History of stress test Hyperlipidemia Hypertension Injury of back Insomnia 10/31/2019 Irritable bowel syndrome 10/31/2019 Neuromuscular disorder ([facility]) Oxygen dependent 2-3 liters at all times Peptic ulceration 13 peptic PMB (postmenopausal bleeding) 07/19/2015 Simple endometrial hyperplasia 08/04/2015 Stroke ([facility]) mini Past Surgical History: Procedure Laterality Date HYSTEROSCOPY W/ DILATATION AND CURETTAGE N/A 08/02/2015 Procedure: DILATION AND CURETTAGE; Surgeon: Reilly Box MD; [place] [facility] [place]; Service: TUBAL LIGATION Family History Problem Relation Age of Onset Arthritis Mother Cancer Mother uterine COPD Mother Diabetes Mother Heart disease Mother Cystic fibrosis Sister Cystic fibrosis Brother Diabetes Brother Alcohol abuse Son Social History Socioeconomic History Marital status: Spouse name: Not on file Number of children: 8 Years of education: 12 Highest education level: 12th grade Occupational History Not on file Social Needs Financial resource strain: Not very hard Food insecurity Worry: Never true Inability: Never true Transportation needs Medical: No Non-medical: No Tobacco Use Smoking status: Current Every Day Smoker Packs/day: 0.50 Years: 25.00 Pack years: 12.50 Types: Cigarettes Smokeless tobacco: Never Used Tobacco comment: states a pk every 2 days Substance and Sexual Activity Alcohol use: No Drug use: No Sexual activity: Not Currently Lifestyle Physical activity Days per week: 0 days Minutes per session: 0 min Stress: Very much Relationships Social connections Talks on phone: More than three times a week Gets together: Never Attends pentecostalism service: Never Active member of club or organization: No Attends meetings of clubs or organizations: Never Relationship status: Other Topics Concern Not on file Social History Narrative Not on file Allergies and Medications: Allergies: I have reviewed the patient's allergies. Aspirin, Codeine, Ibuprofen, and Penicillin Scheduled Meds: atorvastatin 20 mg Oral Nightly budesonide-formoteroL 2 puff Inhalation BID ipratropium-albuteroL 3 mL Nebulization Q6H [facility] levoFLOXacin 750 mg Intravenous Q24H losartan 50 mg Oral Daily with lunch methylPREDNISolone sodium succinate 60 mg Intravenous Q6H pantoprazole 20 mg Oral Daily roflumilast 500 mcg Oral Daily sodium chloride (PF) 5 mL Intravenous Q8H MARY sucralfate 1 g Tube 4x daily before meals Continuous Infusions: sodium chloride 0.9 % Stopped (03/30/20 0107) Select home or hospital medications: Prior to Admission medications Medication Sig Start Date End Date Taking? Authorizing Provider albuterol (PROVENTIL) 2.5 mg /3 mL (0.083 %) nebulizer solution Use one vial every 6-8 hours as needed via nebulization. . 03/19/20 Yes Isa Fuchs PA-C ammonium lactate (LAC-HYDRIN) 12 % lotion Apply topically 2 (two) times a day as needed for dry skin . 03/19/20 Yes Isa Fuchs PA-C atorvastatin (LIPITOR) 20 MG tablet Take 1 (one) tablet (20 mg total) by mouth nightly . 02/12/20 Yes Isa Fuchs PA-C benzonatate (TESSALON) 200 MG capsule Take 1 (one) capsule (200 mg total) by mouth 3 (three) times a day as needed for cough . 03/19/20 Yes Isa Fuchs PA-C budesonide-formoteroL (SYMBICORT) 160-4.5 mcg/actuation inhaler Inhale 2 (two) puffs 2 (two) times a day . 02/12/20 Yes Isa Fuchs PA-C famotidine (Acid Private Eye, famotidine,) 20 MG tablet Take 1 (one) tablet (20 mg total) by mouth 2 (two) times a day . 03/19/20 Yes Isa Fuchs PA-C furosemide (LASIX) 40 MG tablet Take 1 (one) tablet (40 mg total) by mouth 2 (two) times a day . 02/12/20 Yes Isa Fuchs PA-C hydrOXYzine (ATARAX) 50 MG tablet Take 1 (one) tablet (50 mg total) by mouth 3 (three) times a day as needed for itching . 02/12/20 Yes Isa Fuchs PA-C losartan (COZAAR) 50 MG tablet Take 1 (one) tablet (50 mg total) by mouth daily . 02/12/20 Yes Isa Fuchs PA-C montelukast (SINGULAIR) 10 mg tablet Take 1 (one) tablet (10 mg total) by mouth daily . 02/12/20 Yes Isa Fuchs PA-C ondansetron (Zofran ODT) 4 MG disintegrating tablet Dissolve 1 (one) tablet (4 mg total) on top of tongue every 8 (eight) hours as needed for nausea . 02/12/20 Yes Isa Fuchs PA-C pantoprazole (PROTONIX) 20 MG tablet Take 1 (one) tablet (20 mg total) by mouth daily . 02/12/20 Yes Isa Fuchs PA-C ProAir HFA 90 mcg/actuation inhaler Inhale 2 (two) puffs every 6 (six) hours as needed for wheezing . 02/12/20 02/11/21 Yes Isa Fuchs PA-C roflumilast (DALIRESP) 500 mcg tablet Take 1 (one) tablet (500 mcg total) by mouth daily . 02/12/20 Yes Isa Fuchs PA-C sucralfate (CARAFATE) 100 mg/mL suspension Take 10 mL (1 g total) by mouth 4 (four) times a day before meals . 02/12/20 Yes Isa Fuchs PA-C tiotropium bromide (Spiriva Respimat) 2.5 mcg/actuation Mist Two inhalations once daily . 02/12/20 Yes Isa Fuchs PA-C azithromycin (Z-SALMA) 5 day dose pack Take 2 tablets PO on day one then 1 tablet PO daily for 4 days . 03/19/20 Isa Fuchs PA-C ipratropium-albuteroL (DUO-NEB) 0.5-2.5 mg/3 ml nebulizer Take 3 mL by nebulization every 4 to 6 hours as needed for wheezing . 10/31/19 Isa Fuchs PA-C potassium chloride 10 MEQ CR tablet Take 4 (four) tablets (40 mEq total) by mouth daily . 02/12/20 Isa Fuchs PA-C Exam: Respiratory Support FiO2 (%): 50 Vital Signs: Temp: [97.3 F (36.3 C)-98.9 F (37.2 C)] 98.1 F (36.7 C) Heart Rate: [82-101] 88 Resp: [14-18] 16 BP: (123-153)/(73-89) 124/73 FiO2 (%): 50 I/O last 3 completed shifts: In: 978.4 [P.O.:240; I.V.:588.4; IV Piggyback:150] Out: 1400 [Urine:1400] General: On NIPPV, not in distress. Speaking normally, morbid obesity Head: Normocephalic. Sclerae anicteric. Trachea is midline. Neck: Supple. No JVD. No lymphadenopathy. Cardiovascular: Regular rate and rhythm. Respiratory: Normal respiratory effort. Clear to ausculation posteriorly Abdominal: Soft, nondistended, nontender masses or organomegaly noted. Musculoskeletal: No obvious deformity. Extremities: No clubbing or cyanosis. Neurological: Non-focal examination. Skin: Normal turgor, no diffuse rash appreciated. Laboratory Data and Critical Care Checklist: [x] Inpatient Medications reviewed. [x] Labs reviewed. Pertinent findings noted: 03/29/20 cbc normal. Wbc normal on 03/27/20 03/29/20 bmp reviewed: bicarb >45. BUN/Cr 36/0.90 bnp 529, 288 03/27/20 trop x 2 negative 03/27/20 covid-19 not detected NO other micro [x] Radiology reviewed. Pertinent findings noted: Chest xray 03/27/20: increased vascular congestion and likely left basilar effusion as well, NO obvious focal airspace disease ECHO 10/2016: CONCLUSIONS 1. Normal chamber sizes. 2. This was a technically difficult study with suboptimal views. PT MORBIDLY OBESE AND REFUSED TO COOPERATE WITH EXAM DUE TO BREATHING ISSUES. UNABLE TO LAY ON LEFT SIDE. 3. Overall left ventricular systolic function is normal with, an EF between 55 - 60 %. 4. Mild mitral regurgitation is present. 5. There is no pericardial effusion. Cornell Webber MD 5:20 AM Associated Order(s): IP CONSULT TO CARE MANAGEMENT COMPLEX DISCHARGE Date: 03/29/2020 Time: 12:17 PM Patient Name: He Laureano Date of : 1960 Sex: Female Unable to have conversation with pt, she is currently on Bipap. Per nursing, she is A/Ox3. Did speak with her to let her know /CM will be following for any discharge needs. She lives at home with her SO, currently has home O2. Received call from pt's Waiver LORA Summer. Pt has fpc once a week, aide services 2 hours a day Sun-Sunday. Physical Therapy PHYSICAL THERAPY EVALUATION NOTE Skilled Therapy Needs After Discharge Anticipate Resolution of Current Assessment Limitations Including: Social Support, Pain, Mechanical Barriers Are Skilled Therapy Services Needed After Discharge: Yes Intensity of Skilled Therapy: 2-3 days per week Anticipated Duration of Skilled Therapy: Duration 10 - 30 days DME Recommendation: Wheeled walker DME Rationale: Patient's condition prevents him/her from accomplishing ADL without recommended equipment, Patient's condition creates an increased risk of safety hazard without recommended equipment Rehab Potential: Good Outcomes Measures Prior Function - Basic Mobility Raw Score: 21 Points Prior Function - Basic Mobility % Impaired: 29.52% functionally impaired AM-PAC - Basic Mobility Raw Score: 14 Points AM-PAC - Basic Mobility % Impaired: 53.86% functionally impaired Physical Therapy Assessment History: The following factors influence the patient's participation in the PT plan of care: Personal Factors: Limited Baseline Mobility, Apprehensive Toward Mobility, Decreased Insight The following co-morbidities (from this admission or prior) influence the patient's participation in this plan of care: COPD Number of History elements affecting this patient's PT plan of care: 1 to 2 Examination of Body Systems: The patient presents with: Musculoskeletal impairments: Strength, Pain, Functional Endurance Neurologic Impairments: Balance Cardiopulmonary Impairments: Activity Tolerance, O2 Saturation Regulation with Activity. These impairments result in limitations of Gait, Functional Transfers, Safety Awareness, Activity Tolerance, Insight. These impairments result in restrictions of Household mobility, Community mobility. Number of Body Systems elements affecting this patient's PT plan of care: 3 or more. Clinical Presentation: The patient's clinical presentation for this PT evaluation is evolving as evidenced by current PT documentation. Activity Tolerance Activity Tolerance: Tolerates 10 - 20 min activity with multiple rests(on BiPAP. SpO2 remained in high 80s to low 90s with mobility) Therapy Precautions Orthotic Devices: No Weight Bearing Status: [facility]FL General Rehab Precautions: Fall risk Balance Sitting Balance - Static: Supports self independantly with both upper extremities Sitting Balance - Dynamic: Moves / returns trunkal midpoint 1-2 inches in multiple planes Standing Balance - Static: Supports self independantly with both upper extremities Standing Balance - Dynamic: Moves / returns trunkal midpoint 1-2 inches in multiple planes Bed Mobility Rolling: Mod Supine to Sit: Mod Skilled Intervention: Education given for safe bed mobility and use of HR with good return. She does require assistance at trunk to reach EOB. Transfers Sit to Stand: Min Bed to Chair: Contact guard Spa Manager: Wheeled walker, 1 person, Gait belt Skilled Intervention: Education given for safe transfer techniques and use of BUE for ascent and descent with fair return. Patient does require additional verbal cue for hand placement. Gait/Locomotion Gait Assistance: Contact guard Assistive Device: Wheeled walker, Other (Comment)(Gait belt) Distance: 8 Feet Pattern: Step to, R decreased step length, L decreased step length, Forward flexed(Decreased cadencce) Skilled Intervention: Education given for safe ambulation techniques and use of FWW for safety. Verbal cues given for pursed lip breathing with good return. Exercise I utilized the following PPE throughout this therapy session: Gloves, Goggles, and Surgical mask A Bumper And Painter Selwyn Camacho, wore Gloves, Goggles, and Surgical mask and assisted during therapy session. The patient was left seated in bedside chair with call light and bedside tray left within reach. Chair alarm placed due to patient's fall risk score. White board updated. Patient denied additional needs. Chair alarm and judith alarm placed due to fall risk score of 4. Based on objective findings during the evaluation and prior level of function, this patient should be safe for discharge home pending functional progression during this admission. Home Living Type of Home: House Home Layout: One level, Ramped entrance Bathroom Accessibility: Accessible Home Equipment: Wheelchair-manual Additional Comments: Patient uses w/c for long distances. She walks short distances from bedroom to dining room and back with no device. Prior Level of Function Level of [place]: Needs assistance with ADLs, Needs assistance with homemaking Lives With: Significant other Receives Help From: stadium attendant(Aide every day) ADL Assistance: Needs assistance Homemaking Assistance: Needs assistance Past Medical History: Diagnosis Date Anemia Anxiety Arthritis Asthma Cancer (HCC) breast at 22 yrs old Cardiac murmur 10/31/2019 Cataract CHF (congestive heart failure) (HCC) Chronic respiratory failure with hypercapnia (HCC) 10/31/2019 COPD (chronic obstructive pulmonary disease) ([facility]) Depression Dermatitis Disease of thyroid gland Essential hypertension, benign 10/31/2019 GERD (gastroesophageal reflux disease) Heart attack ([facility]) Heart murmur History of stress test Hyperlipidemia Hypertension Injury of back Insomnia 10/31/2019 Irritable bowel syndrome 10/31/2019 Neuromuscular disorder ([facility]) Oxygen dependent 2-3 liters at all times Peptic ulceration 13 peptic PMB (postmenopausal bleeding) 07/19/2015 Simple endometrial hyperplasia 08/04/2015 Stroke ([facility]) mini Past Surgical History: Procedure Laterality Date HYSTEROSCOPY W/ DILATATION AND CURETTAGE N/A 08/02/2015 Procedure: DILATION AND CURETTAGE; Surgeon: Reilly Box MD; [place] [facility] [place]; Service: TUBAL LIGATION For complete objective data, detailed plan of care and patient education refer to: PT EVALUATION flow sheet, PT TREATMENT flow sheet, patient Plan of Care, Plan of Care progress note, and Patient Education. This note stands as the current Discharge Summary upon patient discharge from the hospital or completion of Physical Therapy Plan of Care. documented in this encounter Delta Gilliam MD - 03/27/2020 1:41 AM Rogelio Tenorio RN - 03/27/2020 12:39 AM Rogelio Tenorio RN - 03/27/2020 12:39 AM Delta Bernard MD - 03/27/2020 1:41 AM EST ED Notes (unrecognized secti on and content) ED PROVIDER NOTE [facility] EMERGENCY DEPARTMENT NAME: He Laureano AGE: 59 y.o. : 1960 VISIT DATE: 03/27/2020 CSN: [id number] PCP: Isa Fuchs PA-C Clinical Impression: No diagnosis found. ED Disposition None Follow-up Information Follow-up information has not been specified. Contact information for after-discharge care Follow-up information has not been specified. MDM Number of Diagnoses or Management Options Amount and/or Complexity of Data Reviewed Clinical lab tests: ordered and reviewed Tests in the radiology section of CPT : ordered and reviewed Tests in the medicine section of CPT : reviewed and ordered Decide to obtain previous medical records or to obtain history from someone other than the patient: yes Review and summarize past medical records: yes Independent visualization of images, tracings, or specimens: yes Risk of Complications, Morbidity, and/or Mortality Presenting problems: moderate Diagnostic procedures: moderate Management options: moderate Patient Progress Patient progress: stable Assessment/Plan: 59yo F presents with 2-3 days worsening sob at rest. HR 103, afebrile, RR 23 DDx: copd exacerbation, infection ie pneumonia vs covid, CHF exacerbation, pneumothorax, low suspicion for PE as no pleuritic chest pain or hypoxia or leg pain/swelling. Will check labs, ekg, cxr, covid/flu swab. 1:42 AM Blood gas 7.21/>100/104/42 Bicarb >45 on bmp Trop negative, BNP 529 cxr read as: IMPRESSION: Subtle bilateral wispy infiltrates suggestive of a multifocal interstitial pneumonia such as COVID-19 pneumonia. Will tx copd exacerbation with BIPAP and dexamethasone IV covid swab still pending. Will admit after it results. Pt stable at this time, aaox3, normal mental status, does not appear to be tiring out. 2:01 AM covid and flu negative Pt admitted to stepdown and endorsed to Dr. Joni Short. Tolerating BIPAP so far Covered with levaquin empirically for possible early developing pneumonia Vitals stable. Chief Complaint Patient presents with Shortness of Breath History provided by: Patient end finder twisting department used: No Shortness of Breath Chronicity: New Duration: 3 days Severity: Moderate Onset quality: Gradual Timing: Constant Progression: Worsening Relieved by: Nothing Worsened by: Nothing Ineffective treatments: Nothing tried Associated symptoms: no abdominal pain, no chest pain, no cough, no ear pain, no fever, no headaches, no neck pain, no rash, no sore throat, no vomiting and no wheezing Risk factors: obesity and hx of COPD Risk factors: no recent alcohol use, no family hx of DVT, no hx of cancer, no hx of PE/DVT and no hx of clotting disorder Past Medical History: Diagnosis Date Anemia Anxiety Arthritis Asthma Cancer ([facility]) breast at 22 yrs old Cardiac murmur 10/31/2019 Cataract CHF (congestive heart failure) ([facility]) Chronic respiratory failure with hypercapnia ([facility]) 10/31/2019 COPD (chronic obstructive pulmonary disease) ([facility]) Depression Dermatitis Disease of thyroid gland Essential hypertension, benign 10/31/2019 GERD (gastroesophageal reflux disease) Heart attack ([facility]) Heart murmur History of stress test Hyperlipidemia Hypertension Injury of back Insomnia 10/31/2019 Irritable bowel syndrome 10/31/2019 Neuromuscular disorder ([facility]) Oxygen dependent 2-3 liters at all times Peptic ulceration 13 peptic PMB (postmenopausal bleeding) 07/19/2015 Simple endometrial hyperplasia 08/04/2015 Stroke ([facility]) mini Past Surgical History: Procedure Laterality Date HYSTEROSCOPY W/ DILATATION AND CURETTAGE N/A 08/02/2015 Procedure: DILATION AND CURETTAGE; Surgeon: Reilly Box MD; [place] [facility] [place]; Service: TUBAL LIGATION Family History Problem Relation Age of Onset Arthritis Mother Cancer Mother uterine COPD Mother Diabetes Mother Heart disease Mother Cystic fibrosis Sister Cystic fibrosis Brother Diabetes Brother Alcohol abuse Son Social History Socioeconomic History Marital status: Spouse name: Not on file Number of children: 8 Years of education: 12 Highest education level: 12th grade Occupational History Not on file Social Needs Financial resource strain: Not very hard Food insecurity Worry: Never true Inability: Never true Transportation needs Medical: No Non-medical: No Tobacco Use Smoking status: Current Every Day Smoker Packs/day: 0.50 Years: 25.00 Pack years: 12.50 Types: Cigarettes Smokeless tobacco: Never Used Tobacco comment: states a pk every 2 days Substance and Sexual Activity Alcohol use: No Drug use: No Sexual activity: Not Currently Lifestyle Physical activity Days per week: 0 days Minutes per session: 0 min Stress: Very much Relationships Social connections Talks on phone: More than three times a week Gets together: Never Attends pentecostalism service: Never Active member of club or organization: No Attends meetings of clubs or organizations: Never Relationship status: Other Topics Concern Not on file Social History Narrative Not on file Previous Medications Medication Sig albuterol (PROVENTIL) 2.5 mg /3 mL (0.083 %) nebulizer solution Use one vial every 6-8 hours as needed via nebulization. . ammonium lactate (LAC-HYDRIN) 12 % lotion Apply topically 2 (two) times a day as needed for dry skin . atorvastatin (LIPITOR) 20 MG tablet Take 1 (one) tablet (20 mg total) by mouth nightly . azithromycin (Z-SALMA) 5 day dose pack Take 2 tablets PO on day one then 1 tablet PO daily for 4 days . benzonatate (TESSALON) 200 MG capsule Take 1 (one) capsule (200 mg total) by mouth 3 (three) times a day as needed for cough . budesonide-formoteroL (SYMBICORT) 160-4.5 mcg/actuation inhaler Inhale 2 (two) puffs 2 (two) times a day . famotidine (Acid Private Eye, famotidine,) 20 MG tablet Take 1 (one) tablet (20 mg total) by mouth 2 (two) times a day . furosemide (LASIX) 40 MG tablet Take 1 (one) tablet (40 mg total) by mouth 2 (two) times a day . hydrOXYzine (ATARAX) 50 MG tablet Take 1 (one) tablet (50 mg total) by mouth 3 (three) times a day as needed for itching . ipratropium-albuteroL (DUO-NEB) 0.5-2.5 mg/3 ml nebulizer Take 3 mL by nebulization every 4 to 6 hours as needed for wheezing . losartan (COZAAR) 50 MG tablet Take 1 (one) tablet (50 mg total) by mouth daily . montelukast (SINGULAIR) 10 mg tablet Take 1 (one) tablet (10 mg total) by mouth daily . ondansetron (Zofran ODT) 4 MG disintegrating tablet Dissolve 1 (one) tablet (4 mg total) on top of tongue every 8 (eight) hours as needed for nausea . pantoprazole (PROTONIX) 20 MG tablet Take 1 (one) tablet (20 mg total) by mouth daily . potassium chloride 10 MEQ CR tablet Take 4 (four) tablets (40 mEq total) by mouth daily . ProAir HFA 90 mcg/actuation inhaler Inhale 2 (two) puffs every 6 (six) hours as needed for wheezing . roflumilast (DALIRESP) 500 mcg tablet Take 1 (one) tablet (500 mcg total) by mouth daily . sucralfate (CARAFATE) 100 mg/mL suspension Take 10 mL (1 g total) by mouth 4 (four) times a day before meals . tiotropium bromide (Spiriva Respimat) 2.5 mcg/actuation Mist Two inhalations once daily . Allergies Allergen Reactions Aspirin Codeine Ibuprofen Penicillin Review of Systems Constitutional: Negative for chills, fatigue and fever. HENT: Negative for congestion, dental problem, ear pain, nosebleeds, sneezing, sore throat and trouble swallowing. Eyes: Negative for photophobia, pain and discharge. Respiratory: Positive for shortness of breath. Negative for cough, chest tightness and wheezing. Cardiovascular: Negative for chest pain, palpitations and leg swelling. Gastrointestinal: Negative for abdominal distention, abdominal pain, constipation, diarrhea, nausea and vomiting. Genitourinary: Negative for dysuria, flank pain, frequency, hematuria and urgency. Musculoskeletal: Negative for back pain, neck pain and neck stiffness. Skin: Negative for rash and wound. Neurological: Negative for dizziness, seizures, syncope, weakness, numbness and headaches. All other systems reviewed and are negative. Positives and pertinent negatives as per HPI. All other systems were reviewed and are negative. Patient Vitals for the past 24 hrs: BP Temp Pulse Resp SpO2 Height Weight 03/27/20 0048 (!) 154/100 97.6 F (36.4 C) (!) 103 (!) 23 99 % 5' 6" (!) 165.6 kg (365 lb) Physical Exam Vitals signs and nursing note reviewed. Exam conducted with a edge beader present. Constitutional: General: She is not in acute distress. Appearance: Normal appearance. She is not ill-appearing, toxic-appearing or diaphoretic. Interventions: She is not intubated. HENT: Head: Normocephalic and atraumatic. Right Ear: Tympanic membrane, ear canal and external ear normal. Left Ear: Tympanic membrane, ear canal and external ear normal. Nose: Nose normal. No congestion or rhinorrhea. Mouth/Throat: Mouth: Mucous membranes are moist. Pharynx: Oropharynx is clear. No oropharyngeal exudate or posterior oropharyngeal erythema. Eyes: Extraocular Movements: Extraocular movements intact. Conjunctiva/sclera: Conjunctivae normal. Pupils: Pupils are equal, round, and reactive to light. Neck: Musculoskeletal: Normal range of motion and neck supple. No neck rigidity or muscular tenderness. Cardiovascular: Rate and Rhythm: Normal rate and regular rhythm. Pulses: Normal pulses. Heart sounds: Normal heart sounds. No murmur. No friction rub. No gallop. Pulmonary: Effort: Tachypnea and accessory muscle usage present. No bradypnea or respiratory distress. She is not intubated. Breath sounds: No stridor. Wheezing present. No decreased breath sounds, rhonchi or rales. Abdominal: General: Abdomen is flat. Bowel sounds are normal. There is no distension. Palpations: Abdomen is soft. There is no mass. Tenderness: There is no abdominal tenderness. There is no guarding or rebound. Musculoskeletal: Normal range of motion. General: No swelling, tenderness or deformity. Skin: General: Skin is warm and dry. Capillary Refill: Capillary refill takes less than 2 seconds. Neurological: General: No focal deficit present. Mental Status: She is alert and oriented to person, place, and time. Mental status is at baseline. Psychiatric: Mood and Affect: Mood normal. Behavior: Behavior normal. Laboratory & Radiographic Imaging (if done): Results for orders placed or performed during the hospital encounter of 03/27/20 Basic Metabolic Panel Result Value Ref Range Sodium 139 135 - 145 mmol/L Potassium 4.1 3.5 - 5.1 mmol/L Chloride 95 (L) 98 - 108 mmol/L Bicarbonate >45 (CH) 21 - 32 mmol/L Anion Gap <3 (L) 10 - 20 mmol/L Glucose 121 (H) 65 - 99 mg/dL BUN 15 8 - 25 mg/dL Creatinine 1.11 (H) 0.40 - 1.10 mg/dL eGFR 55 (L) >=60 mL/min/1.73 m2 BUN/Creatinine Ratio 13.5 10.0 - 20.0 Calcium 9.2 8.4 - 10.2 mg/dL Troponin x 2 (Now and Repeat in 3 hours) Result Value Ref Range Troponin I <15 <=45 ng/L Troponin I Interpretation Normal NT Pro BNP Result Value Ref Range NT-Pro BNP 529 (H) 0 - 300 pg/mL Hepatic Function Panel (LFT) Result Value Ref Range Total Protein 7.7 6.0 - 8.0 g/dL Albumin 3.0 (L) 3.2 - 5.2 g/dL Total Bilirubin 0.4 0.0 - 1.3 mg/dL Bilirubin, Direct 0.1 0.0 - 0.4 mg/dL Alkaline Phosphatase 88 40 - 150 U/L AST 11 0 - 45 U/L ALT 13 (L) 14 - 65 U/L Lipase Result Value Ref Range Lipase 52 (L) 73 - 393 U/L Blood Gas, Venous Result Value Ref Range pH, Venous 7.21 (L) 7.32 - 7.42 pCO2, Maxim >100.0 (H) 41.0 - 51.0 mm Hg pO2, Maxim 104 (H) 25 - 40 mm Hg HCO3, Maxim 42.0 (H) 24.0 - 28.0 mmol/L Base Excess, Maxim 10.1 (H) -2.0 - 2.0 O2 Sat, Maxim 98.5 (H) 40.0 - 70.0 % Hemoglobin, Blood Gas 12.5 12.0 - 16.0 g/dL Hematocrit, Calculated 38.4 36.0 - 46.0 % CBC Auto Differential Result Value Ref Range WBC 10.15 4.50 - 11.00 K/mcL RBC 4.16 4.00 - 5.20 M/mcL Hemoglobin 12.1 12.0 - 16.0 g/dL Hematocrit 40.3 36.0 - 46.0 % MCV 96.9 80.0 - 100.0 fL MCH 29.1 26.0 - 34.0 pg MCHC 30.0 (L) 31.0 - 37.0 g/dL Platelets 211 150 - 400 K/mcL RDW - CV 12.8 11.6 - 14.8 % MPV 10.9 9.4 - 12.4 fL Neutrophils 75.1 % Lymphocytes 14.8 % Monocytes 8.0 % Eosinophils 0.4 % Basophils 0.3 % IG Percent 1.40 % Neutrophils Abs 7.63 (H) 1.70 - 7.00 K/mcL Lymphocytes Abs 1.50 0.90 - 4.00 K/mcL Monocytes Abs 0.81 0.30 - 0.90 K/mcL Eosinophils Abs 0.04 0.00 - 0.50 K/mcL Basophils Abs 0.03 0.00 - 0.30 K/mcL IG Absolute 0.14 0.00 - 0.30 K/mcL Nucleated RBC 0.1 % Nucleated RBC Abs 0.01 (H) 0.00 - 0.00 K/mcL XR Chest 1 View Final Result Subtle bilateral wispy infiltrates suggestive of a multifocal interstitial pneumonia such as COVID-19 pneumonia. Workstation ID: [id number] Procedures . Delta Gilliam MD, FACEP Attending Physician [facility] Emergency Department Delta Gilliam MD 03/27/20 0202 EMS states "she's been short of breath all day. She wears 4L normally. EKG showed sinus tach. 20 G in the left AC" Bed: 15 Expected date: Expected time: Means of arrival: Comments: 27 documented in this encounter ED PROVIDER NOTE [facility] EMERGENCY DEPARTMENT NAME: He Laureano AGE: 59 y.o. : 1960 VISIT DATE: 03/27/2020 CSN: [id number] PCP: Isa Fuchs PA-C Clinical Impression: No diagnosis found. ED Disposition None Follow-up Information Follow-up information has not been specified. Contact information for after-discharge care Follow-up information has not been specified. MDM Number of Diagnoses or Management Options Amount and/or Complexity of Data Reviewed Clinical lab tests: ordered and reviewed Tests in the radiology section of CPT : ordered and reviewed Tests in the medicine section of CPT : reviewed and ordered Decide to obtain previous medical records or to obtain history from someone other than the patient: yes Review and summarize past medical records: yes Independent visualization of images, tracings, or specimens: yes Risk of Complications, Morbidity, and/or Mortality Presenting problems: moderate Diagnostic procedures: moderate Management options: moderate Patient Progress Patient progress: stable Assessment/Plan: 59yo F presents with 2-3 days worsening sob at rest. HR 103, afebrile, RR 23 DDx: copd exacerbation, infection ie pneumonia vs covid, CHF exacerbation, pneumothorax, low suspicion for PE as no pleuritic chest pain or hypoxia or leg pain/swelling. Will check labs, ekg, cxr, covid/flu swab. 1:42 AM Blood gas 7.21/>100/104/42 Bicarb >45 on bmp Trop negative, BNP 529 cxr read as: IMPRESSION: Subtle bilateral wispy infiltrates suggestive of a multifocal interstitial pneumonia such as COVID-19 pneumonia. Will tx copd exacerbation with BIPAP and dexamethasone IV covid swab still pending. Will admit after it results. Pt stable at this time, aaox3, normal mental status, does not appear to be tiring out. 2:01 AM covid and flu negative Pt admitted to stepdown and endorsed to Dr. Joni Short. Tolerating BIPAP so far Covered with levaquin empirically for possible early developing pneumonia Vitals stable. Chief Complaint Patient presents with Shortness of Breath History provided by: Patient end finder twisting department used: No Shortness of Breath Chronicity: New Duration: 3 days Severity: Moderate Onset quality: Gradual Timing: Constant Progression: Worsening Relieved by: Nothing Worsened by: Nothing Ineffective treatments: Nothing tried Associated symptoms: no abdominal pain, no chest pain, no cough, no ear pain, no fever, no headaches, no neck pain, no rash, no sore throat, no vomiting and no wheezing Risk factors: obesity and hx of COPD Risk factors: no recent alcohol use, no family hx of DVT, no hx of cancer, no hx of PE/DVT and no hx of clotting disorder Past Medical History: Diagnosis Date Anemia Anxiety Arthritis Asthma Cancer ([facility]) breast at 22 yrs old Cardiac murmur 10/31/2019 Cataract CHF (congestive heart failure) ([facility]) Chronic respiratory failure with hypercapnia ([facility]) 10/31/2019 COPD (chronic obstructive pulmonary disease) ([facility]) Depression Dermatitis Disease of thyroid gland Essential hypertension, benign 10/31/2019 GERD (gastroesophageal reflux disease) Heart attack ([facility]) Heart murmur History of stress test Hyperlipidemia Hypertension Injury of back Insomnia 10/31/2019 Irritable bowel syndrome 10/31/2019 Neuromuscular disorder ([facility]) Oxygen dependent 2-3 liters at all times Peptic ulceration 13 peptic PMB (postmenopausal bleeding) 07/19/2015 Simple endometrial hyperplasia 08/04/2015 Stroke ([facility]) mini Past Surgical History: Procedure Laterality Date HYSTEROSCOPY W/ DILATATION AND CURETTAGE N/A 08/02/2015 Procedure: DILATION AND CURETTAGE; Surgeon: Reilly Box MD; [place] [facility] [place] [facility] [place]; Service: TUBAL LIGATION Family History Problem Relation Age of Onset Arthritis Mother Cancer Mother uterine COPD Mother Diabetes Mother Heart disease Mother Cystic fibrosis Sister Cystic fibrosis Brother Diabetes Brother Alcohol abuse Son Social History Socioeconomic History Marital status: Spouse name: Not on file Number of children: 8 Years of education: 12 Highest education level: 12th grade Occupational History Not on file Social Needs Financial resource strain: Not very hard Food insecurity Worry: Never true Inability: Never true Transportation needs Medical: No Non-medical: No Tobacco Use Smoking status: Current Every Day Smoker Packs/day: 0.50 Years: 25.00 Pack years: 12.50 Types: Cigarettes Smokeless tobacco: Never Used Tobacco comment: states a pk every 2 days Substance and Sexual Activity Alcohol use: No Drug use: No Sexual activity: Not Currently Lifestyle Physical activity Days per week: 0 days Minutes per session: 0 min Stress: Very much Relationships Social connections Talks on phone: More than three times a week Gets together: Never Attends pentecostalism service: Never Active member of club or organization: No Attends meetings of clubs or organizations: Never Relationship status: Other Topics Concern Not on file Social History Narrative Not on file Previous Medications Medication Sig albuterol (PROVENTIL) 2.5 mg /3 mL (0.083 %) nebulizer solution Use one vial every 6-8 hours as needed via nebulization. . ammonium lactate (LAC-HYDRIN) 12 % lotion Apply topically 2 (two) times a day as needed for dry skin . atorvastatin (LIPITOR) 20 MG tablet Take 1 (one) tablet (20 mg total) by mouth nightly . azithromycin (Z-SALMA) 5 day dose pack Take 2 tablets PO on day one then 1 tablet PO daily for 4 days . benzonatate (TESSALON) 200 MG capsule Take 1 (one) capsule (200 mg total) by mouth 3 (three) times a day as needed for cough . budesonide-formoteroL (SYMBICORT) 160-4.5 mcg/actuation inhaler Inhale 2 (two) puffs 2 (two) times a day . famotidine (Acid Private Eye, famotidine,) 20 MG tablet Take 1 (one) tablet (20 mg total) by mouth 2 (two) times a day . furosemide (LASIX) 40 MG tablet Take 1 (one) tablet (40 mg total) by mouth 2 (two) times a day . hydrOXYzine (ATARAX) 50 MG tablet Take 1 (one) tablet (50 mg total) by mouth 3 (three) times a day as needed for itching . ipratropium-albuteroL (DUO-NEB) 0.5-2.5 mg/3 ml nebulizer Take 3 mL by nebulization every 4 to 6 hours as needed for wheezing . losartan (COZAAR) 50 MG tablet Take 1 (one) tablet (50 mg total) by mouth daily . montelukast (SINGULAIR) 10 mg tablet Take 1 (one) tablet (10 mg total) by mouth daily . ondansetron (Zofran ODT) 4 MG disintegrating tablet Dissolve 1 (one) tablet (4 mg total) on top of tongue every 8 (eight) hours as needed for nausea . pantoprazole (PROTONIX) 20 MG tablet Take 1 (one) tablet (20 mg total) by mouth daily . potassium chloride 10 MEQ CR tablet Take 4 (four) tablets (40 mEq total) by mouth daily . ProAir HFA 90 mcg/actuation inhaler Inhale 2 (two) puffs every 6 (six) hours as needed for wheezing . roflumilast (DALIRESP) 500 mcg tablet Take 1 (one) tablet (500 mcg total) by mouth daily . sucralfate (CARAFATE) 100 mg/mL suspension Take 10 mL (1 g total) by mouth 4 (four) times a day before meals . tiotropium bromide (Spiriva Respimat) 2.5 mcg/actuation Mist Two inhalations once daily . Allergies Allergen Reactions Aspirin Codeine Ibuprofen Penicillin Review of Systems Constitutional: Negative for chills, fatigue and fever. HENT: Negative for congestion, dental problem, ear pain, nosebleeds, sneezing, sore throat and trouble swallowing. Eyes: Negative for photophobia, pain and discharge. Respiratory: Positive for shortness of breath. Negative for cough, chest tightness and wheezing. Cardiovascular: Negative for chest pain, palpitations and leg swelling. Gastrointestinal: Negative for abdominal distention, abdominal pain, constipation, diarrhea, nausea and vomiting. Genitourinary: Negative for dysuria, flank pain, frequency, hematuria and urgency. Musculoskeletal: Negative for back pain, neck pain and neck stiffness. Skin: Negative for rash and wound. Neurological: Negative for dizziness, seizures, syncope, weakness, numbness and headaches. All other systems reviewed and are negative. Positives and pertinent negatives as per HPI. All other systems were reviewed and are negative. Patient Vitals for the past 24 hrs: BP Temp Pulse Resp SpO2 Height Weight 03/27/20 0048 (!) 154/100 97.6 F (36.4 C) (!) 103 (!) 23 99 % 5' 6" (!) 165.6 kg (365 lb) Physical Exam Vitals signs and nursing note reviewed. Exam conducted with a edge beader present. Constitutional: General: She is not in acute distress. Appearance: Normal appearance. She is not ill-appearing, toxic-appearing or diaphoretic. Interventions: She is not intubated. HENT: Head: Normocephalic and atraumatic. Right Ear: Tympanic membrane, ear canal and external ear normal. Left Ear: Tympanic membrane, ear canal and external ear normal. Nose: Nose normal. No congestion or rhinorrhea. Mouth/Throat: Mouth: Mucous membranes are moist. Pharynx: Oropharynx is clear. No oropharyngeal exudate or posterior oropharyngeal erythema. Eyes: Extraocular Movements: Extraocular movements intact. Conjunctiva/sclera: Conjunctivae normal. Pupils: Pupils are equal, round, and reactive to light. Neck: Musculoskeletal: Normal range of motion and neck supple. No neck rigidity or muscular tenderness. Cardiovascular: Rate and Rhythm: Normal rate and regular rhythm. Pulses: Normal pulses. Heart sounds: Normal heart sounds. No murmur. No friction rub. No gallop. Pulmonary: Effort: Tachypnea and accessory muscle usage present. No bradypnea or respiratory distress. She is not intubated. Breath sounds: No stridor. Wheezing present. No decreased breath sounds, rhonchi or rales. Abdominal: General: Abdomen is flat. Bowel sounds are normal. There is no distension. Palpations: Abdomen is soft. There is no mass. Tenderness: There is no abdominal tenderness. There is no guarding or rebound. Musculoskeletal: Normal range of motion. General: No swelling, tenderness or deformity. Skin: General: Skin is warm and dry. Capillary Refill: Capillary refill takes less than 2 seconds. Neurological: General: No focal deficit present. Mental Status: She is alert and oriented to person, place, and time. Mental status is at baseline. Psychiatric: Mood and Affect: Mood normal. Behavior: Behavior normal. Laboratory & Radiographic Imaging (if done): Results for orders placed or performed during the hospital encounter of 03/27/20 Basic Metabolic Panel Result Value Ref Range Sodium 139 135 - 145 mmol/L Potassium 4.1 3.5 - 5.1 mmol/L Chloride 95 (L) 98 - 108 mmol/L Bicarbonate >45 (CH) 21 - 32 mmol/L Anion Gap <3 (L) 10 - 20 mmol/L Glucose 121 (H) 65 - 99 mg/dL BUN 15 8 - 25 mg/dL Creatinine 1.11 (H) 0.40 - 1.10 mg/dL eGFR 55 (L) >=60 mL/min/1.73 m2 BUN/Creatinine Ratio 13.5 10.0 - 20.0 Calcium 9.2 8.4 - 10.2 mg/dL Troponin x 2 (Now and Repeat in 3 hours) Result Value Ref Range Troponin I <15 <=45 ng/L Troponin I Interpretation Normal NT Pro BNP Result Value Ref Range NT-Pro BNP 529 (H) 0 - 300 pg/mL Hepatic Function Panel (LFT) Result Value Ref Range Total Protein 7.7 6.0 - 8.0 g/dL Albumin 3.0 (L) 3.2 - 5.2 g/dL Total Bilirubin 0.4 0.0 - 1.3 mg/dL Bilirubin, Direct 0.1 0.0 - 0.4 mg/dL Alkaline Phosphatase 88 40 - 150 U/L AST 11 0 - 45 U/L ALT 13 (L) 14 - 65 U/L Lipase Result Value Ref Range Lipase 52 (L) 73 - 393 U/L Blood Gas, Venous Result Value Ref Range pH, Venous 7.21 (L) 7.32 - 7.42 pCO2, Maxim >100.0 (H) 41.0 - 51.0 mm Hg pO2, Maxim 104 (H) 25 - 40 mm Hg HCO3, Maxim 42.0 (H) 24.0 - 28.0 mmol/L Base Excess, Maxim 10.1 (H) -2.0 - 2.0 O2 Sat, Maxim 98.5 (H) 40.0 - 70.0 % Hemoglobin, Blood Gas 12.5 12.0 - 16.0 g/dL Hematocrit, Calculated 38.4 36.0 - 46.0 % CBC Auto Differential Result Value Ref Range WBC 10.15 4.50 - 11.00 K/mcL RBC 4.16 4.00 - 5.20 M/mcL Hemoglobin 12.1 12.0 - 16.0 g/dL Hematocrit 40.3 36.0 - 46.0 % MCV 96.9 80.0 - 100.0 fL MCH 29.1 26.0 - 34.0 pg MCHC 30.0 (L) 31.0 - 37.0 g/dL Platelets 211 150 - 400 K/mcL RDW - CV 12.8 11.6 - 14.8 % MPV 10.9 9.4 - 12.4 fL Neutrophils 75.1 % Lymphocytes 14.8 % Monocytes 8.0 % Eosinophils 0.4 % Basophils 0.3 % IG Percent 1.40 % Neutrophils Abs 7.63 (H) 1.70 - 7.00 K/mcL Lymphocytes Abs 1.50 0.90 - 4.00 K/mcL Monocytes Abs 0.81 0.30 - 0.90 K/mcL Eosinophils Abs 0.04 0.00 - 0.50 K/mcL Basophils Abs 0.03 0.00 - 0.30 K/mcL IG Absolute 0.14 0.00 - 0.30 K/mcL Nucleated RBC 0.1 % Nucleated RBC Abs 0.01 (H) 0.00 - 0.00 K/mcL XR Chest 1 View Final Result Subtle bilateral wispy infiltrates suggestive of a multifocal interstitial pneumonia such as COVID-19 pneumonia. Workstation ID: [id number] Procedures . Delta Gilliam MD, FACEP Attending Physician [facility] Emergency Department Delta Gilliam MD 03/27/20 0202 EMS states "she's been short of breath all day. She wears 4L normally. EKG showed sinus tach. 20 G in the left AC" Bed: 15 Expected date: Expected time: Means of arrival: Comments: 27 documented in this encounter Care Teams (unrecognized sec tion and content) Team Status: Active Member Role Status Dates Dr. Sepideh Patterson MD Primary Care Provider Active Team Status: Inactive Member Role Status Dates Dr. Sepideh Patterson MD Primary Care Provider Active Dr. Max Barber MD Attending Provider, Emergency Pr ovider Active Team Status: Inactive Member Role Status Dates Dr. Sepideh Patterson MD Primary Care Provider Active Dr. Sepideh KOROMA MD Attending Provider Active Team Status: Inactive Member Role Status Dates Dr. Sepideh Patterson MD Primary Care Provider Active Dr. Reilly Serrano MD Attending Provider, Emergency Provider Active Team Status: Active Member Role Status Dates Dr. Sepideh Patterson MD Primary Care Provider Active Dr. Anatoly Morton MD Emergency Provider Active Dr. Elizabeth Choe MD Admit Provider, Other Provider Active Dr. Leanna Pascual MD Attending Provider, Other Provid er Active Team Status: Inactive Member Role Status Dates Dr. Sepideh Patterson MD Primary Care Provider Active Dr. Anatoly Morton MD Emergency Provider Active Dr. Elizabeth Choe MD Admit Provider, Other Provider Active Dr. 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 Sepideh Patterson MD Attending Provider, Referring Pr ovider Active Team Status: Inactive Member Role Status Dates Dr. Sepideh Patterson MD Attending Provider Active Team Status: Active Member Role Status Dates Dr. Sepideh Patterson MD Attending Provider Active Team Status: Active Member Role Status Dates Dr. Sepideh Patterson MD Primary Care Provider Active Dr. Miranda Post DO Emergency Provider Active Dr. Marina Armas DO Admit Provider, Attending Provide r Active Team Status: Active Member Role Status Dates Dr. Sepideh Patterson MD Primary Care Provider Active Dr. Miranda Post DO Emergency Provider Active Dr. Marina Armas , DO Admit Provider, Att ending Provider, Other Provider Active Team Status: Inactive Member Role Status Dates Dr. Sepideh Patterson MD Attending Provider, Referring Pr ovider Active Team Status: Active Member Role Status Dates Dr. Sepideh Patterson MD Primary Care Provider Active Dr. Miranda Post DO Emergency Provider Active Dr. Marina Armas , DO Admit Provider, Other Provider Ac tive Dr. Alejandro Morillo , DO Attending Provider, Other Pro vider Active Team Status: Inactive Member Role Status Dates Dr. Sepideh Patterson MD Primary Care Provider Active Dr. Miranda Post DO Emergency Provider Active Dr. Marina Armas DO Admit Provider, Other Provider Ac tive Dr. Alejandro Morillo , DO Attending Provider Active Team Status: Active Member Role Status Dates Dr. Sepideh Patterson MD Primary Care Provider Active Dr. Osmany Storey MD Attending Provider Active Team Status: Active Member Role Status Dates Dr. Sepideh Patterson MD Primary Care Provider Active Dr. Sepideh Patterson MD Attending Provider Active Team Status: Active Member Role Status Dates Dr. Sepideh Patterson MD Primary Care Provider Active Dr. Berenice Ramirez MD Emergency Provider Active Dr. Amaya Jacome MD Admit Provider, Attending Provid er Active Team Status: Active Member Role Status Dates Dr. Sepideh Patterson MD Primary Care Provider Active Dr. Berenice Ramirez MD Emergency Provider Active Dr. Amaya Jacome MD Admit Provider, At tending Provider, Other Provider Active Team Status: Active Member Role Status Dates Dr. Sepideh Patterson MD Primary Care Provider Active Dr. Berenice Ramirez MD Emergency Provider Active Dr. Amaya Jacome MD Admit Provider, Other Provider A ctive Dr. Leanna Pascual MD Attending Provider, Other Provid er Active Team Status: Active Member Role Status Dates Dr. Sepideh Patterson MD Primary Care Provider Active Dr. Berenice Ramirez MD Emergency Provider Active Dr. Amaya Jacome MD Admit Provider, Other Provider A ctive Dr. Leanna Pascual MD Attending Provider, Other Provid er Active Dr. Prosper Lorenzo MD Other Provider Active Team Status: Inactive Member Role Status Dates Dr. Sepideh Patterson MD Primary Care Provider Active Dr. Berenice Ramirez MD Emergency Provider Active Dr. Amaya Jacome MD Admit Provider, Other Provider A ctive Dr. Leanna Pascual MD Attending Provider Active Dr. Prosper Lorenzo MD Other Provider Active Team Status: Inactive Member Role Status Dates Dr. Sepideh Patterson MD Primary Care Provider Active Dr. Sepideh Patterson MD Attending Provider Active Team Status: Active Member Role Status Dates Dr. Sepideh Patterson MD Primary Care Provider Active Dr. Jayme Lamar DO Emergency Provider Active Dr. Joana Perez MD Admit Provider, Attending Provider Active Team Status: Active Member Role Status Dates Dr. Sepideh Patterson MD Primary Care Provider Active Dr. Jayme Lamar DO Emergency Provider Active Dr. Joana Perez MD Admit Provider, Atte nding Provider, Other Provider Active Team Status: Active Member Role Status Dates Dr. Sepideh Patterson MD Primary Care Provider Active Dr. Jayme Lamar DO Emergency Provider Active Dr. Joana Perez MD Admit Provider, Other Provider Act sarai Dr. Jayme Corea DO Attending Provider, Other Provid er Active Team Status: Inactive Member Role Status Dates Dr. Sepideh Patterson MD Primary Care Provider Active Dr. Jayme Lamar DO Emergency Provider Active Dr. Joana Perez MD Admit Provider, Other Provider Act sarai Dr. Jayme Corea DO Attending Provider Active Team Status: Active Member Role Status Dates Dr. Sepideh Patterson MD Primary Care Provider Active Dr. Osmany Storey MD Attending Provider Active Dr. Alejandro Morillo , Referring Provider Active Team Status: Active Member Role Status Dates Dr. Sepideh KOROMA MD Attending Provider, Referring Provider Active Team Status: Inactive Member Role Status Dates Dr. Sepideh KOROMA MD Attending Provider Active Team Status: Inactive Member Role Status Dates Dr. Sepideh KOROMA MD Attending Provider, Referring Provider Active Team Status: Active Member Role Status Dates Dr. Sepideh Patterson MD Primary Care Provider Active Dr. Sepideh KOROMA MD Attending Provider, Referring Provider Active Team Status: Active Member Role Status Dates Dr. Sepideh Patterson MD Primary Care Provider Active Dr. Seipdeh KOROMA MD Attending Provider Active Team Status: Inactive Member Role Status Dates Dr. Sepideh Patterson MD Primary Care Provider Active Dr. Sepideh KOROMA MD Attending Provider, Referring Provider Active Team Status: Active Member Role Status Dates Dr. Sepideh Patterson MD Primary Care Provider Active Dr. Sarah Bonilla DO Emergency Provider Active Dr. Jayme Corea DO Admit Provider, Attending Provid er, Other Provider Active Team Status: Active Member Role Status Dates Dr. Sepideh Patterson MD Primary Care Provider Active Dr. Sarah Bonilla DO Emergency Provider Active Dr. Jayme Corea DO Admit Provider, Attending Provid er Active Team Status: Active Member Role Status Dates Dr. Sepideh Patterson MD Primary Care Provider Active Dr. Sarah Bonilla DO Emergency Provider Active Dr. Jayme Corea DO Admit Provider, Other Provider A ctive Dr. Otoniel Mei MD Other Provider Active Dr. Hugo Templeton DO Other Provider Active Dr. Pawel Oswald MD Other Provider Active Dr. Aguila Merchant MD Other Provider Active Yessica Morales [employer], [employer] Other Provider Active Dr. Leanna Pascual MD Attending Provider, Other Provid er Active Team Status: Active Member Role Status Dates Dr. Sepideh Patterson MD Primary Care Provider Active Dr. Sarah Bonilla DO Emergency Provider Active Dr. Jayme Corea DO Admit Provider, Other Provider A ctive Dr. Leanna Pascual MD Other Provider Active Dr. Otoniel Mei MD Other Provider Active Dr. Hugo Templeton DO Attending Provider, Other Provide r Active Dr. Pawel Oswald MD Other Provider Active Dr. Aguila Merchant MD Other Provider Active Yessica Morales [employer], [employer] Other Provider Active Team Status: Active Member Role Status Dates Dr. Sepideh Patterson MD Primary Care Provider Active Dr. Sarah Bonilla , DO Emergency Provider Active Dr. Jayme Corea , DO Admit Provider, Other Provider A ctive Dr. Leanna Pascual MD Attending Provider, Other Provid er Active Dr. Otoniel Mei MD Other Provider Active Dr. Hugo Templeton , DO Other Provider Active Dr. Pawel Oswald MD Other Provider Active Dr. Aguila Merchant MD Other Provider Active Yessica Morales [employer], [employer] Other Provider Active Team Status: Active Member Role Status Dates Dr. Sepideh Patterson MD Primary Care Provider Active Dr. Sarah Bonilla , DO Emergency Provider Active Dr. Jayme Corea , DO Admit Provider, Other Provider A ctive Dr. Otoniel Mei MD Other Provider Active Dr. Hugo Templeton , DO Other Provider Active Dr. Pawel Oswald MD Other Provider Active Dr. Aguila Merchant MD Other Provider Active Yessica Morales [employer], [employer] Other Provider Active Dr. Yomi Lorenzo MD Attending Provider, Other Provider Active Dr. Leanna Pascual MD Other Provider Active Team Status: Active Member Role Status Dates Dr. Sepideh Patterson MD Primary Care Provider Active Dr. Sarah Bonilla , Emergency Provider Active Dr. Jayme Corea , Admit Provider, Other Provider A ctive Dr. Otoniel Mei MD Other Provider Active Dr. Hugo Templeton , DO Other Provider Active Dr. Pawel Oswald MD Attending Provider, Other Pro vider Active Dr. Aguila Merchant MD Other Provider Active Yessica Morales [employer], [employer] Other Provider Active Dr. Yomi Lorenzo MD Other Provider Active Dr. Leanna Pascual MD Other Provider Active Team Status: Inactive Member Role Status Dates Dr. Sepideh Patterson MD Primary Care Provider Active Dr. Sarah Bonilla , DO Emergency Provider Active Dr. Jayme Corea , DO Admit Provider, Other Provider A ctive Dr. Otoniel Mei MD Other Provider Active Dr. Hugo Templeton , DO Other Provider Active Dr. Pawel Oswald MD Other Provider Active Dr. Aguila Merchant MD Other Provider Active Yessica Morales [employer], [employer] Other Provider Active Dr. Leanna Pascual MD Other Provider Active Dr. Yomi Lorenzo MD Attending Provider Active Team Status: Active Member Role Status Dates Dr. Sepideh Patterson MD Primary Care Provider Active Dr. Sarah Bonilla DO Emergency Provider Active Dr. Jayme Corea DO Admit Provider, Other Provider A ctive Dr. Leanna Pascual MD Other Provider Active Dr. Otoniel Mei MD Other Provider Active Dr. Hugo Templeton DO Attending Provider, Other Provide r Active Dr. Pawel Oswald MD Other Provider Active Dr. Aguila Merchant MD Other Provider Active Yessica Morales [employer], [employer] Other Provider Active Dr. Yomi Lorenzo MD Referring Provider Active Team Status: Active Member Role Status Dates Dr. Sepideh Patterson MD Primary Care Provider Active Dr. Sarah Bonilla DO Emergency Provider Active Dr. Jayme Corea DO Admit Provider, Other Provider A ctive Dr. Otoniel Mei MD Other Provider Active Dr. Hugo Templeton DO Other Provider Active Dr. Pawel Oswald MD Attending Provider, Other Pro vider Active Dr. Aguila Merchant MD Other Provider Active Yessica Morales [employer], [employer] Other Provider Active Dr. Yomi Lorenzo MD Referring Provider, Other Provider Active Dr. Leanna Pascual MD Other Provider Active Team Status: Inactive Member Role Status Dates Dr. Sepideh Patterson MD Primary Care Provider Active Dr. Max Barber MD Emergency Provider Active Team Status: Inactive Member Role Status Dates Dr. Sepideh Patterson MD Primary Care Provider Active Dr. Reilly Serrano MD Emergency Provider Active Team Status: Active Member Role Status Dates Dr. Sepideh Patterson MD Primary Care Provider Active Dr. Anatoly Morton MD Emergency Provider Active Dr. Elizabeth Choe MD Admit Provider, Attending Prov ider Active Team Status: Active Member Role Status Dates Dr. Sepideh Patterson MD Primary Care Provider Active Dr. Berenice Ramirez MD Emergency Provider Active Dr. Elizabeth Choe MD Admit Provider, Attending Prov ider Active Team Status: Active Member Role Status Dates Dr. Sepideh Patterson MD Primary Care Provider Active Dr. Berenice Ramirez MD Emergency Provider Active Dr. Elizabeth Choe MD Admit Provider, Other Provider Active Dr. Ahsan Sousa DO Attending Provider, Other Provider Active Team Status: Inactive Member Role Status Dates Dr. Sepideh Patterson MD Primary Care Provider Active Dr. Berenice Ramirez MD Emergency Provider Active Dr. Elizabeth Choe MD Admit Provider, Other Provider Active Dr. Ahsan Sousa DO Attending Provider Active Team Status: Active Member Role Status Dates Dr. Heath Macario DO Primary Care Provider Active Team Status: Inactive Member Role Status Dates Dr. Sepideh Patterson MD Primary Care Provider Active Start: March 26, 2024 End: March 26, 2024 Dr. Sepideh KOROMA MD Attending Provider Active Start: March 26, 2024 End: March 26, 2024 Team Status: Active Member Role Status Dates Dr. Sepideh Patterson MD Primary Care Provider Active Start: April 23, 2024 Dr. Sepideh KOROMA MD Attending Provider Active Start: April 23, 2024 Dr. Sepideh KOROMA MD Referring Provider Active Start: April 23, 2024 Team Status: Active Member Role Status Dates Dr. Sepideh Patterson MD Primary Care Provider Active Start: May 12, 2024 Dr. Heath KOROMA MD Attending Provider Active Start: May 12, 2024 Dr. Heath KOROMA MD Referring Provider Active Start: May 12, 2024 Team Status: Inactive Member Role Status Dates Dr. Sepideh Patterson MD Primary Care Provider Active Start: May 20, 2024 End: May 20, 2024 Dr. Sepideh Patterson MD Referring Provider Active Start: May 20, 2024 End: May 20, 2024 Dr. Theo Cho MD Attending Provider Active Start: May 20, 2024 End: May 20, 2024 Team Status: Active Member Role Status Dates Dr. Heath Macario DO Primary Care Provider Active Start: June 23, 2024 Dr. Heath KOROMA MD Attending Provider Active Start: June 23, 2024 Dr. Heath KOROMA MD Referring Provider Active Start: June 23, 2024 Team Status: Inactive Member Role Status Dates Dr. Heath Macario DO Primary Care Provider Active Start: July 01, 2024 End: July 01, 2024 Dr. Theo Cho MD Attending Provider Active Start: July 01, 2024 End: July 01, 2024 Dr. Theo Cho MD Referring Provider Active Start: July 01, 2024 End: July 01, 2024 Team Status: Active Member Role Status Dates Dr. Heath Macario DO Primary Care Provider Active Start: July 01, 2024 Dr. Theo Cho MD Attending Provider Active Start: July 01, 2024 Team Status: Inactive Member Role Status Dates Dr. Heath Macario DO Primary Care Provider Active Start: June 23, 2024 End: June 23, 2024 Dr. Heath KOROMA MD Attending Provider Active Start: June 23, 2024 End: June 23, 2024 Dr. Heath KOROMA MD Referring Provider Active Start: June 23, 2024 End: June 23, 2024 Team Status: Inactive Member Role Status Dates Dr. Heath Macario DO Primary Care Provider Active Start: July 21, 2024 End: July 21, 2024 Dr. Heath KOROMA MD Attending Provider Active Start: July 21, 2024 End: July 21, 2024 Dr. Heath KOROMA MD Referring Provider Active Start: July 21, 2024 End: July 21, 2024 Team Status: Inactive Member Role Status Dates Dr. Heath Macario DO Primary Care Provider Active Start: September 22, 2024 End: September 22, 2024 Dr. Heath Macario DO Referring Provider Active Start: September 22, 2024 End: September 22, 2024 Dr. Theo Cho MD Attending Provider Active Start: September 22, 2024 End: September 22, 2024 Goals (unrecognized section and content) Goals may be documented in a n alternate sectionGoals may be documented in an alternate sectionGoals may be documented in an alternate sectionGoals may be documented in an alternate sectionGoals may be documented in an alternate sectionGoals may be documented in an alternate sectionGoals may be documented in an alternate sectionGoals may be documented in an alternate sectionGoals may be documented in an alternate sectionGoals may be documented in an alternate section FOR RECORDS PERTAINING TO PATIENTS WHO ARE OR HAVE BEEN ENROLLED IN A CHEMICAL DEPENDENCY/SUBSTANCEABUSE PROGRAM, SOME INFORMATION MAY BE OMITTED. This clinical summary was aggregated from multiple sources. Caution should be exercised in using it in the provision of clinical care. This summary normalizes information from multiple sources, and as a consequence, information in this document may materially change the coding, format and clinical context of patient data. In addition, data may be omitted in some cases. CLINICAL DECISIONS SHOULD BE BASED ON THE PRIMARY CLINICAL RECORDS. [facility] [employer] [facility]. provides no warranty or guarantee of the accuracy or completeness of information in this document.
[2024-10-21 08:52] LABS: Hematocrit 36.2 % (37-47); Hemoglobin 10.5 g/dL (12.0-15.0); Mean Corp Hgb Conc 29.0 g/dL (32-36); Mean Corpuscular Volume 85.6 fL (81-99); Mean Platelet Vol. 11.9 fl (6.2-12.0); Platelet Count 237 K/mm3 (150-450); RBC Distribution Width CV 14.6 % (11.6-14.6); RBC Distribution Width SD 45.3 fl (35.1-43.9); Red Blood Count 4.23 M/mm3 (4.2-5.4); White Blood Count 8.9 K/mm3 (4.4-11.0)
[2024-10-21 09:07] LABS: Anion Gap 7 (5-15); BUN 18 mg/dL (4-19); BUN/Creat Ratio 33.3 RATIO (10-20); Calcium,Total 10.0 mg/dL (7.6-11.0); Carbon Dioxide 39.4 mmol/L (21.0-32.0); Chloride 98 mmol/L (98-108); Glucose 120 mg/dL (70-99); Potassium 4.6 mmol/L (3.3-5.1)
== END ==
LOC: OLS.SW 05:00
PROVIDERS: Visit Provider Family Medicine
DX: J44.9 Chronic obstructive pulmonary disease, unspecified (principal); I10 Essential (primary) hypertension
CPT/HCPCS: 36415; 80048; 85027